=== PATIENT | female | born 1955 | race Caucasian/White ===

== ENCOUNTER 2019-04-07 22:29 | Inpatient (IN) | payer OTHER, MEDICARE, SELFPAY ==
[2019-04-07 22:36] VITALS: BP 95/65; PULSE 128; RESP 16; O2SAT 100; BMI 33.3
--- NOTE | 2019-04-07 22:48 | ED_ITS ---
Entered by Wandy Hilton, acting as scribe for Melissa Garcia MD HPI - General Adult General: Chief complaint: General Medical Stated complaint: n/v/d low bs Time Seen by Provider: 04/07/19 22:46 Source: patient and family Mode of arrival: wheelchair Limitations: no limitations History of Present Illness: HPI narrative: 64 y/o female presents to the ED with complaint of low BS. Pt states her sugar was 27 at home. She has had abd pain, nausea and vomiting. Pt states her sugar has increased a little since taking glucose tabs and drinking OJGautam [place] complaint: Low BS Onset (ago): hour(s) Severity: mild and moderate Quality: constant Relieving factors: eating Associated symptoms: Reports nausea and vomiting; Deny chest pain, dyspnea, headache(s) or rash Review of Systems Const: Denies: fever or chills Eyes: Denies: change in vision ENMT: Denies: throat pain or mouth pain Card: Denies: chest pain Resp: Denies: shortness of breath GI: Reports: abdominal pain, nausea and vomiting; Denies: diarrhea : Denies: difficulty urinating Musc: Denies: back pain or joint pain Skin/Breast: Denies: rash Neuro: Denies: headache or behavioral changes Psych: Denies: depression Endo: Denies: excessive urination Jeremiah/Lymph: Denies: easy bruising All/Imm: Denies: hives PFSH ED PFSH: Statuses (acute, chronic, etc) shown below reflect problem list status as previously entered and may not be historically accurate Medical History (Updated 04/08/19 @ 02:44 by Ana Pringle MD) Chronic back pain (Acute) CKD (chronic kidney disease), stage II (Acute) Depression (Acute) GERD (gastroesophageal reflux disease) (Acute) Hyperlipidemia (Acute) Hypertension (Acute) Hypothyroidism (Acute) Insulin dependent type 2 diabetes mellitus (Acute) Morbid obesity (Acute) Surgical History (Updated 04/08/19 @ 02:44 by Ana Pringle MD) H/O: hysterectomy (Acute) Hx of cholecystectomy (Acute) Family History (Updated 04/08/19 @ 02:45 by Ana Pringle MD) Other CAD (coronary artery disease) Cancer Diabetes Hypertension Social History (Updated 04/08/19 @ 02:45 by Ana Pringle MD) Smoking and tobacco status: current every day smoker cigars Cigars smoked per week: 28 Alcohol intake: current Alcohol intake frequency: 3 or more drinks per day Alcohol type: beer Substance/Drug Use: never Household members: spouse Housing: House Physical Exam Const: COMMON NORMALS: no apparent distress, oriented x3 and healthy appearing HENMT: COMMON NORMALS: normocephalic and external nose normal HEAD & SCALP: normocephalic NOSE: external nose normal Eye: COMMON NORMALS: PERRL PUPIL: Yes PERRL Neck/C-Spine: COMMON NORMALS: full ROM and no lymphadenopathy Chest: COMMONS NORMALS: inspection of chest normal Resp: COMMON NORMALS: normal respiratory effort, no use of accessory muscles and clear to auscultation bilaterally AUSCULTATION: clear to auscultation bilaterally Cardio: COMMON NORMALS: regular rate and regular rhythm RATE: regular rate RHYTHM: regular rhythm GI: COMMON NORMALS: soft to palpation and no masses PALPATION: Yes soft and Yes tender OTHER: obese Back/Pelvis: THORACIC SPINE/UPPER BACK: Yes normal to inspection Extremity: COMMON NORMALS: normal to inspection, full ROM and normal capillary refill Neuro: COMMON NORMALS: oriented x3 Psych: COMMON NORMALS: mental status grossly normal and cooperative Skin: COMMON NORMALS: no rashes or lesions noted GENERAL SKIN EXAM: no rashes or lesions noted Course Vital Signs: Vital signs: Vital Signs Pulse Rate 95 04/08/19 03:18 Respiratory Rate 16 04/08/19 03:18 Blood Pressure 137/80 04/08/19 03:18 Pulse Oximetry 96 04/08/19 03:18 MDM - General Adult MDM Narrative: Medical decision making narrative: Patient presents here with altered mental status from hypoglycemia. Even after D50 here patient had 2 other episodes of hypoglycemia. Patient started on a D10 drip. I spoke to hospitalist Dr. Pringle and will admit to the ICU for every hour glucoses and to continue the D10. Lab Data: Labs: Lab Results 04/07/19 04/07/19 04/07/19 Range/Units 22:41 23:55 23:55 WBC 10.4 H (4.0-10.0) 10^3/ uL RBC 5.23 (4.1-5.3) 10^6/u L Hgb 13.4 (11.5-15.3) g/dL Hct 42.5 (37.0-47.0) % MCV 81.3 (81-99) fL MCH 25.6 L (28.0-34.0) pg MCHC 31.5 (30.0-36.0) g/dL RDW 17.2 H (12.1-15.1) % Plt Count 405 H (130-400) 10^3/c mm MPV 9.8 (7.4-10.4) fL Neut % (Auto) 75.5 % Lymph % (Auto) 16.9 % [place] % (Auto) 6.3 % Eos % (Auto) 0.3 % Baso % (Auto) 0.4 % Neut # (Auto) 7.9 H (1.8-7.7) 10^3/u L Lymph # (Auto) 1.8 (0.8-4.8) 10^3/u L [place] # (Auto) 0.7 (0.2-0.9) 10^3/u L Eos # (Auto) 0.0 (0.0-0.8) 10^3/u L Baso # (Auto) 0.0 (0.0-0.1) 10^3/u L Nucleated RBC % (a uto) 0 % Nucleated RBCs # 0.0 /100WBC Sodium 137 (136-145) mmol/L Potassium 3.7 (3.5-5.1) mmol/L Chloride 94 L (98-107) mmol/L Carbon Dioxide 18 L (22-29) mmol/L Anion Gap 28.7 H (5-19) BUN 4 L (8-23) mg/dL Creatinine 1.7 H (0.5-0.9) mg/dL GFR Calculation 30.2 L (90-130) mL/min Glucose 25 L* (74-106) mg/dL POC Glucose 115 (70-110) mg/dL Calcium 10.3 H (8.8-10.2) mg/Dl Total Bilirubin 0.2 (0.15-1.2) mg/dL AST 17 (0-32) U/L ALT 10 (0-33) U/L Alkaline Phosphata se 124 H (35-105) IU/L Total Protein 7.8 (6.6-8.7) g/dL Albumin 3.9 (3.5-5.2) g/dL Globulin 3.9 (1.3-4.6) g/dL Lipase 5 L (13-60) U/L 04/08/19 04/08/19 04/08/19 Range/Units 00:21 01:01 01:31 WBC (4.0-10.0) 10^3/ uL RBC (4.1-5.3) 10^6/u L Hgb (11.5-15.3) g/dL Hct (37.0-47.0) % MCV (81-99) fL MCH (28.0-34.0) pg MCHC (30.0-36.0) g/dL RDW (12.1-15.1) % Plt Count (130-400) 10^3/c mm MPV (7.4-10.4) fL Neut % (Auto) % Lymph % (Auto) % [place] % (Auto) % Eos % (Auto) % Baso % (Auto) % Neut # (Auto) (1.8-7.7) 10^3/u L Lymph # (Auto) (0.8-4.8) 10^3/u L [place] # (Auto) (0.2-0.9) 10^3/u L Eos # (Auto) (0.0-0.8) 10^3/u L Baso # (Auto) (0.0-0.1) 10^3/u L Nucleated RBC % (a uto) % Nucleated RBCs # /100WBC Sodium (136-145) mmol/L Potassium (3.5-5.1) mmol/L Chloride (98-107) mmol/L Carbon Dioxide (22-29) mmol/L Anion Gap (5-19) BUN (8-23) mg/dL Creatinine (0.5-0.9) mg/dL GFR Calculation (90-130) mL/min Glucose (74-106) mg/dL POC Glucose 28 53 111 (70-110) mg/dL Calcium (8.8-10.2) mg/Dl Total Bilirubin (0.15-1.2) mg/dL AST (0-32) U/L ALT (0-33) U/L Alkaline Phosphata se (35-105) IU/L Total Protein (6.6-8.7) g/dL Albumin (3.5-5.2) g/dL Globulin (1.3-4.6) g/dL Lipase (13-60) U/L 04/08/19 04/08/19 Range/Units 01:58 02:29 WBC (4.0-10.0) 10^3/ uL RBC (4.1-5.3) 10^6/u L Hgb (11.5-15.3) g/dL Hct (37.0-47.0) % MCV (81-99) fL MCH (28.0-34.0) pg MCHC (30.0-36.0) g/dL RDW (12.1-15.1) % Plt Count (130-400) 10^3/c mm MPV (7.4-10.4) fL Neut % (Auto) % Lymph % (Auto) % [place] % (Auto) % Eos % (Auto) % Baso % (Auto) % Neut # (Auto) (1.8-7.7) 10^3/u L Lymph # (Auto) (0.8-4.8) 10^3/u L [place] # (Auto) (0.2-0.9) 10^3/u L Eos # (Auto) (0.0-0.8) 10^3/u L Baso # (Auto) (0.0-0.1) 10^3/u L Nucleated RBC % (a uto) % Nucleated RBCs # /100WBC Sodium (136-145) mmol/L Potassium (3.5-5.1) mmol/L Chloride (98-107) mmol/L Carbon Dioxide (22-29) mmol/L Anion Gap (5-19) BUN (8-23) mg/dL Creatinine (0.5-0.9) mg/dL GFR Calculation (90-130) mL/min Glucose (74-106) mg/dL POC Glucose 126 123 (70-110) mg/dL Calcium (8.8-10.2) mg/Dl Total Bilirubin (0.15-1.2) mg/dL AST (0-32) U/L ALT (0-33) U/L Alkaline Phosphata se (35-105) IU/L Total Protein (6.6-8.7) g/dL Albumin (3.5-5.2) g/dL Globulin (1.3-4.6) g/dL Lipase (13-60) U/L EKG Data^: EKG 1: Attestation: I personally reviewed and interpreted this EKG as follows: EKG interpretation date: 04/08/19 EKG interpretation time: 00:42 Interpretation: Normal sinus rhythm heart rate 91 QRS [address] or T wave abnormalities Discharge Plan Discharge Patient Disposition: Admitted As Inpatient Admit Provider: Ana Pringle Clinical Impression: Hypoglycemia Condition: Stable Referrals: Migdalia Kimball MD [Physician] - Thu Flores FNP [Family Provider] - Coding Level of Care Code 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
[2019-04-07 22:49] LABS: Glucose Point of Care 115 mg/dL (70-110)
[2019-04-08] VITALS (30 sets, daily range): BP systolic 117–178; BP diastolic 69–125; PULSE 59–106; RESP 13–28; TEMP 36.6–37.6; O2SAT 89–100; BMI 34.2
[2019-04-08 00:01] LABS: Basophils % 0.4 %; Eosinophils % 0.3 %; Hematocrit 42.5 % (37.0-47.0); Hemoglobin 13.4 g/dL (11.5-15.3); Lymphocytes # 1.8 10^3/uL (0.8-4.8); Lymphocytes % 16.9 %; Mean Corpuscular HGB Conc 31.5 g/dL (30.0-36.0); Mean Corpuscular Hemoglobin 25.6 pg (28.0-34.0); Mean Corpuscular Volume 81.3 fL (81-99); Mean Platelet Volume 9.8 fL (7.4-10.4); Monocytes # 0.7 10^3/uL (0.2-0.9); Monocytes % 6.3 %; Neutrophils # 7.9 10^3/uL (1.8-7.7); Neutrophils % 75.5 %; Nucleated Red Blood Cells % 0 %; Platelet Count 405 10^3/cmm (130-400); Red Blood Count 5.23 10^6/uL (4.1-5.3); Red Cell Distribution Width 17.2 % (12.1-15.1); White Blood Count 10.4 10^3/uL (4.0-10.0)
[2019-04-08] MEDS: sodium chloride 0.9% 1,000 ML 999 ML IV (00:01)
--- NOTE | 2019-04-08 00:22 | PC.NURSE ---
Performed an accu-check and patient's blood sugar is 28, informed both the nurse and doctor.
[2019-04-08] MEDS: dextrose 50% syringe 50 mL IVP ×3 (00:27→04:30)
[2019-04-08 00:28] LABS: Alanine Aminotransferase 10 U/L (0-33); Albumin Level 3.9 g/dL (3.5-5.2); Alkaline Phosphatase 124 IU/L (35-105); Anion Gap 28.7 (5-19); Aspartate Amino Transferase 17 U/L (0-32); Blood Urea Nitrogen 4 mg/dL (8-23); Calcium 10.3 mg/Dl (8.8-10.2); Carbon Dioxide 18 mmol/L (22-29); Chloride 94 mmol/L (98-107); Globulin 3.9 g/dL (1.3-4.6); Glomerular Filtration Rate 30.2 mL/min (90-130); Lipase 5 U/L (13-60); Potassium 3.7 mmol/L (3.5-5.1); Sodium 137 mmol/L (136-145); Total Bilirubin 0.2 mg/dL (0.15-1.2); Total Protein 7.8 g/dL (6.6-8.7)
--- NOTE | 2019-04-08 00:31 | ECG_ITS ---
Measurements Intervals [place] Rate: 91 P: 28 AL: 141 QRS: 46 QRSD: 82 T: 77 QT: 374 QTc: 462 SINUS RHYTHM POSSIBLE RIGHT VENTRICULAR CONDUCTION DELAY [RSR (QR) IN V1/V2] Compared to ECG 10/11/2018 16:35:59 Sinus tachycardia no longer present T-wave abnormality no longer present Electronically Signed On 04-08-2019 10:50:48 WHIZZER by Cindy Strong M.D. [email or web address]
[2019-04-08 00:34] LABS: Glucose Point of Care 28 mg/dL (70-110)
[2019-04-08 00:37] LABS: Glucose 25 mg/dL (74-106)
--- NOTE | 2019-04-08 01:04 | PC.NURSE ---
Patient's blood glucose at 0100 is 53, informed both nurse and doctor. Also informed nurse and doctor that she has a rash under her left breast.
[2019-04-08 01:06] LABS: Glucose Point of Care 53 mg/dL (70-110)
[2019-04-08] MEDS: dextrose 10% 1,000 ML 100 ML IV ×3 (01:26→23:05)
--- NOTE | 2019-04-08 01:35 | PC.NURSE ---
Patient blood glucose is 111, informed nurse and doctor, hospitalist is at bedside and informed her as well.
[2019-04-08 01:38] LABS: Glucose Point of Care 111 mg/dL (70-110)
--- NOTE | 2019-04-08 02:01 | PC.NURSE ---
Patient blood glucose is 126, informed nurse and doctor. Patient stated she wants something for her heart burn told both the nurse and doctor.
[2019-04-08 02:02] LABS: Glucose Point of Care 126 mg/dL (70-110)
[2019-04-08 02:33] LABS: Glucose Point of Care 123 mg/dL (70-110)
--- NOTE | 2019-04-08 02:36 | PM.HP ---
Providers/Chief Complaint Primary Care Provider: Migdalia Kimball Chief Complaint: n/v/d low bs History of Present Illness Ingris Mendosa is a 64 year old female with PMHx of IDDM type II, Hypothyroidism, HTN, Hyperlipidemia, Morbid obesity, FRANKY, GERD, Depression, Chronic back pain; presents from home accompanied by her for evaluation of significant hypoglycemia. She is quite sleepy during my assessment so much of the history is obtained from her at bedside as well as review of medical record and ED report. states that patient has had epigastric abdominal pain since around Cas and over the past week has had nausea, vomiting and persistent diarrhea. She last took her insulin which was 35 units of Lantus 2 days ago and also takes metformin 1000 mg twice daily. Her blood sugar prior to coming to the ER was about 27. states that over the past week her blood sugar has been running in the 200-250 range but yesterday she did have a couple of episodes of hypoglycemia with sugar of 55 which then improved to 88. She has generally been feeling quite unwell particularly today and has had diminished appetite and oral intake. She did take her metformin today. She has been undergoing work-up for the abdominal pain with her PCP, has had CT scans and ultrasounds with no clear etiology and she is pending what sounds like an endoscopy next week. states that patient has had labile blood sugars and hypoglycemic episodes in the past but nothing recently. She had a fall 4 days ago though he is unable to provide details as he was not present at the time. Patient typically ambulates with a Rollator and a wheelchair and has a very unsteady gait at baseline. She smokes 3 to 4 cigars/day, drinks 3 to 4 ounces of alcohol per day, last drink was earlier this morning, denies substance abuse. On arrival her blood sugar was 27, she got an amp of D50 and it increased to 110 then subsequently dropped to 28. She received a second amp of D50 and blood sugar increased to 40. She is currently on a D10 IV fluid infusion. Most recent blood sugar is 113. She is arousable though quite sleepy, thinks is because she has not gotten much sleep with frequency of bowel movements. Labs indicate a normal white count, normal hemoglobin, blood sugar of 25, BUN of 4, creatinine of 1.7, anion gap of 28.7 LFTs and lipase within normal limits. Vital signs are stable. There is no baseline A1c available on record so we will order this for tomorrow. She is currently having her blood sugar checked every hour so will require ICU admission for close monitoring. Review of Systems Const: Reports: change in appetite (decreased appetite), fatigue and malaise; Denies: fever or chills Eyes: Denies: change in vision ENMT: Reports: dry mouth Card: Denies: chest pain, swelling of feet/ankles or lightheadedness Resp: Denies: shortness of breath GI: Reports: abdominal pain (Epigastric), nausea, vomiting and diarrhea; Denies: vomiting blood or blood in stool : Denies: difficulty urinating or painful urination Musc: Denies: back pain Skin/Breast: Denies: rash Neuro: Denies: numbness in extremities or weakness in extremities Psych: Denies: anxiety Medications/Allergies Allergies Allergy/AdvReac Type Severity Reaction Status Date / Time nicotine [From [employer]] Allergy Severe ALGY-Hives Verified 04/07/19 22:35 PFSH Acute PFSH: Statuses (acute, chronic, etc) shown below reflect problem list status as previously entered and may not be historically accurate Medical History (Updated 04/08/19 @ 02:44 by Ana Pringle MD) Chronic back pain (Acute) CKD (chronic kidney disease), stage II (Acute) Depression (Acute) GERD (gastroesophageal reflux disease) (Acute) Hyperlipidemia (Acute) Hypertension (Acute) Hypothyroidism (Acute) Insulin dependent type 2 diabetes mellitus (Acute) Morbid obesity (Acute) Surgical History (Updated 04/08/19 @ 02:44 by Ana Pringle MD) H/O: hysterectomy (Acute) Hx of cholecystectomy (Acute) Family History (Updated 04/08/19 @ 02:45 by Ana Pringle MD) Other CAD (coronary artery disease) Cancer Diabetes Hypertension Social History (Updated 04/08/19 @ 02:45 by Ana Pringle MD) Smoking and tobacco status: current every day smoker cigars Cigars smoked per week: 28 Alcohol intake: current Alcohol intake frequency: 3 or more drinks per day Alcohol type: beer Substance/Drug Use: never Household members: spouse Housing: House Vitals/I&O/Wt Last Vital Signs Pulse 96 04/08/19 02:33 Resp 18 04/08/19 02:33 BP 122/70 04/08/19 02:33 Pulse Ox 100 04/08/19 01:32 Weight last 48 hrs Weight 85.275 kg Physical Exam Const: COMMON NORMALS: no apparent distress and oriented x3 GENERAL APPEARANCE: cooperative, comfortable and lethargic NUTRITIONAL APPEARANCE: obese morbidly obese ORIENTATION/CONSCIOUSNESS: Yes awake HENMT: COMMON NORMALS: normocephalic, head/scalp atraumatic, hearing grossly normal bilaterally and moist oral mucous membranes HEAD & SCALP: normocephalic and atraumatic Eye: COMMON NORMALS: PERRL, EOMs intact bilaterally and conjunctivae normal CONJUNCTIVA: Yes conjunctivae normal PUPIL: Yes PERRL Neck/C-Spine: COMMON NORMALS: full ROM GENERAL: Yes normal visual inspection and Yes trachea midline Resp: COMMON NORMALS: normal respiratory effort, no retractions, no use of accessory muscles and clear to auscultation bilaterally EFFORT & INSPECTION: Yes able to speak in complete sentences, Yes symmetric chest movement and No tachypneic AUSCULTATION: clear to auscultation bilaterally Cardio: COMMON NORMALS: regular rate, regular rhythm, S1 normal heart sound, S2 normal heart sound and no murmurs RATE: regular rate RHYTHM: regular rhythm HEART SOUNDS: S1 normal and S2 normal GI: COMMON NORMALS: normal to inspection, nondistended, normoactive bowel sounds and soft to palpation PALPATION: Yes soft and Yes tender Details: LLQ and other (Epigastric) Extremity: COMMON NORMALS: normal to inspection, full ROM and no clubbing, cyanosis or edema; negative for no pedal edema Neuro: COMMON NORMALS: oriented x3, moves all extremities, no focal motor deficits and no sensory deficits noted Psych: COMMON NORMALS: mental status grossly normal, thought process normal, cooperative, affect normal and speech normal SPEECH: Yes normal speech THOUGHT PROCESS: normal thought process Skin: COMMON NORMALS: no rashes or lesions noted, no jaundice, no petechiae and no mottling GENERAL SKIN EXAM: no rashes or lesions noted Data : 04/07/19 23:55 04/07/19 23:55 A&P Assessment and plan (1) Hypoglycemia: -Significant hypoglycemia with blood sugars in the 20s, so far has received 2 Amps of D50 -D10 IVF currently running -Hourly Accu-Cheks -Hypoglycemia precautions -Hold insulin and antihypoglycemic agents -neurochecks Status: Acute Code(s): E16.2 - Hypoglycemia, unspecified (2) CKD (chronic kidney disease), stage II: -has GILBERTO superimposed on CKD stage 2; baseline Cr wnl; likely secondary to poor oral intake, diarrhea -on IVF -repeat labs in AM Status: Acute Code(s): N18.2 - Chronic kidney disease, stage 2 (mild) (3) Insulin dependent type 2 diabetes mellitus: -has hx of IDDM type II; is on long acting insulin (last taken 2 days ago) and metformin 1000 mg BID -check A1c -management of hypoglycemia as noted above -diabetic diet as tolerated Status: Acute Code(s): E11.9 - Type 2 diabetes mellitus without complications; 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 Time Spent in Patient Care: Greater than 35 minutes (>than 50% of time spent in counselling and/or direct pt care on unit). Coding Level of Care Code Acute Corporate Law Assistant for Chg Fwd Exam Problem Focused Diagnoses Hypoglycemia E16.2 CKD (chronic kidney disease), stage II N18.2 Insulin dependent type 2 diabetes mellitus E11.9; Z79.4
[2019-04-08 03:33] LABS: Magnesium 1.3 mg/dL (1.7-2.3); Thyroid Stimulating Hormone 4.13 uIU/mL (0.27-4.20)
[2019-04-08 03:38] LABS: Influenza A by IFA Negative (Negative); Influenza B by IFA Negative (Negative)
[2019-04-08] MEDS: heparin 5,000 unit/mL INJ 1 mL 5000 UNIT SUBCUT ×2 (04:40→15:08)
[2019-04-08 06:59] LABS: Glucose Point of Care 60 mg/dL (70-110)
[2019-04-08 06:59] LABS: Glucose Point of Care 181 mg/dL (70-110)
[2019-04-08 06:59] LABS: Glucose Point of Care 159 mg/dL (70-110)
[2019-04-08 06:59] LABS: Glucose Point of Care 291 mg/dL (70-110)
[2019-04-08 06:59] LABS: Glucose Point of Care 36 mg/dL (70-110)
[2019-04-08 08:43] LABS: Estmated Average Glucose 203; Hemoglobin A1C 8.7 % (4.0-6.0)
[2019-04-08] MEDS: LORazepam 2 mg/mL INJ 1 mL IVP (20:31)
[2019-04-08] MEDS: CLONazepam 0.5 mg Tablet PO (20:31)
[2019-04-08] MEDS: HYDROcodone-acetaminophen 5-325 mg Tablet 1 TAB PO (20:31)
--- NOTE | 2019-04-08 22:52 | P.PN_ITS ---
Subjective Subjective: Interval history: c/o intermittent low abdominal pain. blood sugar improving, however still with some lows in the 30s Medications: Reviewed: Yes Vitals/I&O/Wt Last Vital Signs Temp 97.8 F 04/08/19 18:00 Pulse 88 04/08/19 21:00 Resp 22 H 04/08/19 21:00 BP 157/100 04/08/19 21:00 Pulse Ox 95 04/08/19 21:00 04/08/19 04/08/19 04/08/19 06:59 14:59 22:59 Intake Total 1240 / 1240 360 / 1600 Output Total 300 / 300 900 / 900 Balance -300 / -300 1240 / 1240 -540 / 700 Weight last 48 hrs Weight 87.543 kg Weight 87.634 kg Weight 85.275 kg Data : 04/07/19 23:55 04/07/19 23:55 A&P Assessment and plan (1) Hypoglycemia: -Significant hypoglycemia with blood sugars in the 30s, -D10 IVF currently running -Hourly Accu-Cheks -Hypoglycemia precautions -Hold insulin and antihypoglycemic agents -neurochecks - c peptide, cortisol level in am Status: Acute Code(s): E16.2 - Hypoglycemia, unspecified (2) CKD (chronic kidney disease), stage II: -has GILBERTO superimposed on CKD stage 2; baseline Cr wnl; likely secondary to poor oral intake, diarrhea -on IVF -repeat labs in AM Status: Acute Code(s): N18.2 - Chronic kidney disease, stage 2 (mild) (3) Insulin dependent type 2 diabetes mellitus: -has hx of IDDM type II; is on long acting insulin (last taken 2 days ago) and metformin 1000 mg BID -check A1c -management of hypoglycemia as noted above -diabetic diet as tolerated Status: Acute Code(s): E11.9 - Type 2 diabetes mellitus without complications; Z79.4 - [facility] (current) use of insulin Additional A&P Information -HTN -Hypothyroidism -Morbid obesity: BMI-33 kg/m2 -GERD -Depression -Chronic back pain; no longer on narcotics -FRANKY; non-compliant with CPAP -Chronic smoker, daily EtOH use -DVT ppx with heparin -fall precautions, assistance with all out of bed activity -Dispo: home -Code status: FULL code Attestations Medical Necessity Statement*: hypoglycemia mgmt Coding Level of Care Code Acute Volumetric Weigher for Chg Fwd Diagnoses Hypoglycemia E16.2 CKD (chronic kidney disease), stage II N18.2 Insulin dependent type 2 diabetes mellitus E11.9; Z79.4
[2019-04-09] VITALS (14 sets, daily range): BP systolic 129–176; BP diastolic 68–116; PULSE 73–94; RESP 16–21; TEMP 36.5; O2SAT 93–100
[2019-04-09 00:15] LABS: Glucose Point of Care 96 mg/dL (70-110)
[2019-04-09 00:15] LABS: Glucose Point of Care 91 mg/dL (70-110)
[2019-04-09 00:15] LABS: Glucose Point of Care 78 mg/dL (70-110)
[2019-04-09 00:15] LABS: Glucose Point of Care 60 mg/dL (70-110)
[2019-04-09 00:15] LABS: Glucose Point of Care 159 mg/dL (70-110)
[2019-04-09 00:15] LABS: Glucose Point of Care 98 mg/dL (70-110)
[2019-04-09 00:15] LABS: Glucose Point of Care 126 mg/dL (70-110)
[2019-04-09 00:15] LABS: Glucose Point of Care 95 mg/dL (70-110)
[2019-04-09 00:15] LABS: Glucose Point of Care 123 mg/dL (70-110)
[2019-04-09 00:15] LABS: Glucose Point of Care 111 mg/dL (70-110)
[2019-04-09 00:15] LABS: Glucose Point of Care 120 mg/dL (70-110)
[2019-04-09 00:16] LABS: Glucose Point of Care 109 mg/dL (70-110)
[2019-04-09 00:16] LABS: Glucose Point of Care 120 mg/dL (70-110)
[2019-04-09 00:16] LABS: Glucose Point of Care 121 mg/dL (70-110)
[2019-04-09] MEDS: HYDROcodone-acetaminophen 5-325 mg Tablet 1 TAB PO ×3 (01:30→13:46)
[2019-04-09 01:52] LABS: Glucose Point of Care 121 mg/dL (70-110)
[2019-04-09] MEDS: heparin 5,000 unit/mL INJ 1 mL 5000 UNIT SUBCUT ×2 (03:16→13:46)
[2019-04-09 04:20] LABS: Glucose Point of Care 150 mg/dL (70-110)
[2019-04-09 05:13] LABS: Basophils # 0.1 10^3/uL (0.0-0.1); Basophils % 0.6 %; Eosinophils # 0.2 10^3/uL (0.0-0.8); Eosinophils % 2.5 %; Hematocrit 37.8 % (37.0-47.0); Hemoglobin 12.3 g/dL (11.5-15.3); Lymphocytes # 3.5 10^3/uL (0.8-4.8); Lymphocytes % 40.6 %; Mean Corpuscular HGB Conc 32.5 g/dL (30.0-36.0); Mean Corpuscular Hemoglobin 25.4 pg (28.0-34.0); Mean Corpuscular Volume 78.1 fL (81-99); Mean Platelet Volume 9.8 fL (7.4-10.4); Monocytes # 0.7 10^3/uL (0.2-0.9); Monocytes % 8.4 %; Neutrophils # 4.1 10^3/uL (1.8-7.7); Neutrophils % 47.4 %; Nucleated Red Blood Cells % 0 %; Platelet Count 358 10^3/cmm (130-400); Red Blood Count 4.84 10^6/uL (4.1-5.3); Red Cell Distribution Width 16.4 % (12.1-15.1); White Blood Count 8.6 10^3/uL (4.0-10.0)
[2019-04-09 05:38] LABS: Anion Gap 16.3 (5-19); Blood Urea Nitrogen 2 mg/dL (8-23); Calcium 8.6 mg/Dl (8.8-10.2); Carbon Dioxide 22 mmol/L (22-29); Chloride 89 mmol/L (98-107); Glucose 144 mg/dL (74-106); Potassium 3.3 mmol/L (3.5-5.1); Sodium 124 mmol/L (136-145)
[2019-04-09 05:49] LABS: Cortisol Random 2.19 mcg/dL (2.47-19.5)
[2019-04-09 05:57] LABS: Glucose Point of Care 173 mg/dL (70-110)
[2019-04-09] MEDS: dextrose 5%-sod chloride 0.9% 1,000 ML 100 ML IV (06:23)
[2019-04-09 06:50] LABS: Glucose Point of Care 121 mg/dL (70-110)
[2019-04-09] MEDS: thiamine 100 mg Tablet PO ×2 (08:52→12:27)
[2019-04-09] MEDS: multivitamin therapeutic Tablet 1 TAB PO (08:52)
[2019-04-09 08:53] LABS: Glucose Point of Care 122 mg/dL (70-110)
[2019-04-09] MEDS: folic acid 1 mg Tablet PO ×2 (08:53→12:27)
--- NOTE | 2019-04-09 09:14 | PM.PN ---
Subjective Subjective: Interval history: Hemodynamically stable. This morning blood pressure 163/116. Afebrile. T-max 99.6. O2 sat 95% on room air. Lowest blood glucose on 04/08 3 PM at 60. Patient is currently eating. TSH normal. Random cortisol at 2.19 which is low. Sodium at 124. Yesterday it was at 137. Review of prior numbers from 2019 shows a baseline sodium between 1 29-1 32. D10 switched to D5 NS this morning. 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 This am switched to D5NS due to developmenet of hyponatremia -2 Hourly Accu-Cheks -Hypoglycemia precautions -Hold insulin and antihypoglycemic agents -neurochecks - c peptide level pending - random cortisol low at 2.19, suspect adrenal insufficiency. Check ACTH stimulation test - start low dose prednisone 10mg qd after test is done - depending on results of ACTH sim test, will proceed with adrenal imaging - change diet to regular from carbohydrate restricted for now Status: Acute Code(s): E16.2 - Hypoglycemia, unspecified (2) CKD (chronic kidney disease), stage II: GILBERTO resolved Status: Acute Code(s): N18.2 - Chronic kidney disease, stage 2 (mild) (3) Insulin dependent type 2 diabetes mellitus: -has hx of IDDM type II; is on long acting insulin (last taken 3 days ago) and metformin 1000 mg BID -Hba1c 8.7 -management of hypoglycemia as noted above Status: Acute Code(s): E11.9 - Type 2 diabetes mellitus without complications; 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 -Morbid obesity: BMI-33 kg/m2 -GERD -Depression -Chronic back pain; no longer on narcotics -FRANKY; non-compliant with CPAP -Chronic smoker, daily EtOH use -DVT ppx with heparin -fall precautions, assistance with all out of bed activity -Dispo: home -Code status: FULL code Attestations Medical Necessity Statement*: hypoglycemia, possible adrenal insufficiency Coding Level of Care Code Acute [employer] Hospitalist for [facility] Fwd Diagnoses Hypoglycemia E16.2 CKD (chronic kidney disease), stage II N18.2 Insulin dependent type 2 diabetes mellitus E11.9; Z79.4 Hyponatremia E87.1
[2019-04-09 10:48] LABS: Chol HDL Ratio 3.78 mg/dL (0.0-4.40); Cholesterol 174 mg/dL (0-200); HDL Cholesterol 46 mg/dL (60-100); LDL Cholesterol Calculated 93 mg/dL (50-129); LDL HDL Ratio 2.02 RATIO (0.00-3.22); Magnesium 1.1 mg/dL (1.7-2.3); Triglycerides 176 mg/dL (0-150)
[2019-04-09 11:06] LABS: Glucose Point of Care 107 mg/dL (70-110)
[2019-04-09 11:56] LABS: Urine Random Sodium 40 mmol/L
[2019-04-09] MEDS: cosyntropin 0.25 mg SDV IVP (12:23)
[2019-04-09] MEDS: amlodipine 5 mg Tablet PO (12:28)
[2019-04-09 12:34] LABS: Cosyntropin Baseline 5.58
[2019-04-09] MEDS: predniSONE 10 mg Tablet PO (13:47)
[2019-04-09 14:02] LABS: Glucose Point of Care 160 mg/dL (70-110)
--- NOTE | 2019-04-09 14:03 | PC.NURSE ---
PT HERE. HAS NERVE STIMULATOR & HE IS CURRENTLY CHARGING THE BATTERY. IT POSSIBLY MAY NOT BE WORKING CORRECTLY.
[2019-04-09 14:30] LABS: Alanine Aminotransferase 9 U/L (0-33); Alkaline Phosphatase 95 IU/L (35-105); Anion Gap 16.6 (5-19); Aspartate Amino Transferase 21 U/L (0-32); Blood Urea Nitrogen 2 mg/dL (8-23); Calcium 8.8 mg/Dl (8.8-10.2); Carbon Dioxide 22 mmol/L (22-29); Chloride 92 mmol/L (98-107); Glomerular Filtration Rate 100.3 mL/min (90-130); Glucose 177 mg/dL (74-106); Potassium 3.6 mmol/L (3.5-5.1); Sodium 127 mmol/L (136-145); Total Bilirubin 0.2 mg/dL (0.15-1.2)
--- NOTE | 2019-04-09 14:41 | PC.NURSE ---
REPORT CALLED TO KATELYN ARBOLEDA. PERSONAL BELONGINGS WITH PT. WISHED WELL.
--- NOTE | 2019-04-09 15:11 | PC.NURSE ---
PATIENT TRANSFERRED TO FLOOR FROM ICU. REPORT RECEIVED FROM GÓMEZ RICHARDSON.
[2019-04-09 15:12] LABS: Cosyntropin 30 Minute 33.55
[2019-04-09 15:14] LABS: Cosyntropin 1 Hour 36.91
[2019-04-09 16:26] LABS: Glucose Point of Care 217 mg/dL (70-110)
[2019-04-09 20:58] LABS: Glucose Point of Care 229 mg/dL (70-110)
[2019-04-09] MEDS: CLONazepam 0.5 mg Tablet PO (21:42)
[2019-04-09 23:13] LABS: Glucose Point of Care 191 mg/dL (70-110)
[2019-04-10] VITALS: BP 136/78; PULSE 96; RESP 20; TEMP 36.6; O2SAT 94
[2019-04-10 01:10] LABS: Glucose Point of Care 143 mg/dL (70-110)
[2019-04-10] MEDS: heparin 5,000 unit/mL INJ 1 mL 5000 UNIT SUBCUT ×2 (02:57→13:35)
[2019-04-10 03:13] LABS: Glucose Point of Care 148 mg/dL (70-110)
[2019-04-10 04:00] VITALS: BP 134/74; PULSE 78; RESP 18; TEMP 36.5; O2SAT 95
[2019-04-10 04:43] LABS: Glucose Point of Care 134 mg/dL (70-110)
[2019-04-10 08:00] VITALS: BP 134/68; PULSE 91; RESP 18; TEMP 36.6; O2SAT 95
[2019-04-10] MEDS: predniSONE 10 mg Tablet PO (08:24)
[2019-04-10] MEDS: multivitamin therapeutic Tablet 1 TAB PO (08:24)
[2019-04-10] MEDS: amlodipine 5 mg Tablet PO (08:25)
[2019-04-10 10:55] VITALS: BP 139/84; PULSE 90; RESP 20; TEMP 36.6; O2SAT 95
--- NOTE | 2019-04-10 11:57 | PM.PN ---
Subjective Subjective: Interval history: Hemodynamically stable. Blood pressure better controlled after starting 5 mg amlodipine. Afebrile. T-max 97.8. O2 sat 95% on room air. She has been off of D5 NS infusion since yesterday afternoon. Prednisone 10 milligrams daily was added yesterday. Patient is currently eating on normal unrestricted carbohydrate diet. Her fingersticks are ranging between 10 7-2 29. Morning labs not done today therefore unable to assess for improvement of hyponatremia at this time. Cosyntropin baseline cortisol level is at 5.58. 30 minutes after it was at 33. 60 minutes later it was at 36. Medications: Reviewed: Yes Vitals/I&O/Wt Last Vital Signs Temp 97.8 F 04/10/19 10:55 Pulse 90 04/10/19 10:55 Resp 20 H 04/10/19 10:55 BP 139/84 04/10/19 10:55 Pulse Ox 95 04/10/19 10:55 04/09/19 04/10/19 04/10/19 22:59 06:59 14:59 Intake Total 240 / 540 360 / 360 Output Total 225 / 425 Balance 240 / 340 -225 / 115 360 / 360 Weight last 48 hrs Weight 91.654 kg Weight 91.626 kg Physical Exam Narrative: EXAM NARRATIVE: GEN: Awake, alert and oriented, no acute distress CVS: S1S2N RS: CTA B/L Abd: Soft, nt/nd , bs+ TEMPLATE INSPECTOR: no focal neuro deficits Data : 04/09/19 04:45 04/10/19 13:27 A&P Assessment and plan (1) Hypoglycemia: -Significant hypoglycemia with blood sugars in the 30s, improved with maintaining on D10 infusion. Then switched to D5NS due to developmenet of hyponatremia. Now off all fluids since yesetrday afternoon. -2 Hourly Accu-Cheks -Hypoglycemia precautions -Hold insulin and antihypoglycemic agents - c peptide level pending - random cortisol low at 2.19, suspect adrenal insufficiency. ACTH stimulaation test with low baseline cortisol numbers. - started low dose prednisone 10mg qd after test was done, now maintaining blood sugar between 107-229. - will need to see endocrinology as outpatient. Status: Acute Code(s): E16.2 - Hypoglycemia, unspecified (2) CKD (chronic kidney disease), stage II: GILBERTO resolved Status: Acute Code(s): N18.2 - Chronic kidney disease, stage 2 (mild) (3) Insulin dependent type 2 diabetes mellitus: -has hx of IDDM type II; is on long acting insulin (last taken 3 days ago) and metformin 1000 mg BID -Hba1c 8.7 -management of hypoglycemia as noted above Status: Acute Code(s): E11.9 - Type 2 diabetes mellitus without complications; Z79.4 - [facility] (current) use of insulin (4) Hyponatremia: check lytes this morning Status: Acute Code(s): E87.1 - Hypo-osmolality and hyponatremia Additional A&P Information -HTN: continue amlodipine 5mg qd -Hypothyroidism: need to confirm dose of levothyroxine. -Morbid obesity: BMI-33 kg/m2 -GERD -Depression -Chronic back pain; no longer on narcotics -FRANKY; non-compliant with CPAP -Chronic smoker, daily EtOH use -DVT ppx with heparin -fall precautions, assistance with all out of bed activity -Dispo: home -Code status: FULL code Attestations Medical Necessity Statement*: management of hypoglycemia, possible chronic adrenal insufficiency, dispo pending labs today Coding Level of Care Code Acute Timber Deadener for g Fwd Diagnoses Hypoglycemia E16.2 CKD (chronic kidney disease), stage II N18.2 Insulin dependent type 2 diabetes mellitus E11.9; Z79.4 Hyponatremia E87.1
[2019-04-10 12:09] LABS: Glucose Point of Care 190 mg/dL (70-110)
[2019-04-10] MEDS: magnesium sulfate premix 2 GM/50 ML PIGGYBACK IV (13:34)
[2019-04-10 13:47] LABS: Alanine Aminotransferase 8 U/L (0-33); Albumin Level 2.8 g/dL (3.5-5.2); Alkaline Phosphatase 101 IU/L (35-105); Anion Gap 20.1 (5-19); Aspartate Amino Transferase 16 U/L (0-32); Blood Urea Nitrogen 4 mg/dL (8-23); Carbon Dioxide 21 mmol/L (22-29); Chloride 92 mmol/L (98-107); Globulin 3.6 g/dL (1.3-4.6); Glucose 308 mg/dL (74-106); Potassium 4.1 mmol/L (3.5-5.1); Sodium 129 mmol/L (136-145); Total Bilirubin 0.2 mg/dL (0.15-1.2); Total Protein 6.4 g/dL (6.6-8.7)
[2019-04-10 14:58] LABS: Glucose Point of Care 282 mg/dL (70-110)
[2019-04-10 15:25] VITALS: BP 125/76; PULSE 88; RESP 16; TEMP 36.6; O2SAT 95
[2019-04-10] MEDS: HYDROcodone-acetaminophen 5-325 mg Tablet 1 TAB PO (16:15)
[2019-04-10 16:26] LABS: Glucose Point of Care 242 mg/dL (70-110)
[2019-04-10 16:41] VITALS: BP 125/76; PULSE 88; RESP 16; TEMP 36.6; O2SAT 95
--- NOTE | 2019-04-10 16:57 | PC.NURSE ---
DISCHARGE SUMMARY PATIENT WAS GIVEN DISCHARGE SUMMARY. IV DISCONTINUED AND VITAL SIGNS WITHIN NORMAL LIMITS. DISCHARGE INSTRUCTIONS WERE GIVEN TO BOTH PATIENT AND SPOUSE, VERBALIZED UNDERSTANDING. PATIENTS PRESCRIPTIONS WERE SENT TO HER PREFERRED PHARMACY. PATIENT WAS TAKEN TO VEHICLE BY WHEELCHAIR. PATIENT ALERT AND ORIENTED.
--- NOTE | 2019-04-11 07:09 | P.DS_ITS ---
Discharge Providers Date of Admission: 04/08/19 03:17 Attending Provider at Admission: Ana Pringle MD Attending Provider at Discharge: Azalia Floyd MD Diagnoses at Discharge Discharge Diagnosis (1) Hypoglycemia: Status: Acute (2) CKD (chronic kidney disease), stage II: Status: Acute (3) Insulin dependent type 2 diabetes mellitus: Status: Acute (4) Hyponatremia: Status: Acute Reason for Visit Reason for Visit: Reason For Visit: HYPOGLYCEMIA Hospital Course 2 Discharge Summary: Please see my progress note from same day. Patient doing well, no new complaints. Requests to go home. Updates through the day: Next fingerstick check with BS ~280. Started on novolog sliding scale per mild protocol. Continue to hold Lantus now and at home. Reduced dose of Prednisone to 5mg/d for suspected chronic adrenal insufficiency (low random and baseline cortisol on ACTH sim test). Started low dose novolog sliding scale. Instructed to return to PMD/uregnt care or ED if blood sugar >400 or recurrent hypoglycemia. Recommended referral to endocrinology as soon as possible for w/up of complex DM and possible adrenal insufficiency .Patient prefers to do this within the [place] system and will make appointment with her PCP in the next 1-3 days to get referral. WIll maintain a diary of blood sugar at least 3 times/day and take it to PCP for further adjustments of insulin. Sodium at discharge improving, up to 129. Per review of prior numbers, baseline is ~126-130 Discharge Data Data Completed and Pending: Pending at discharge Category Date Time Status C-Peptide Routine Lab 04/08/19 14:18 Received Lipid Panel Stat Lab 04/09/19 04:45 Results Magnesium Stat Lab 04/09/19 04:45 Results Osmolality Stat Lab 04/09/19 04:45 Results Urine Osmolality Stat Lab 04/09/19 11:00 Results Urine Random Sodi um Stat Lab 04/09/19 11:00 Results Labs from last 24 hours 04/10/19 04/10/19 04/10/19 16:17 14:55 13:27 Sodium 129 L Potassium 4.1 Chloride 92 L Carbon Dioxide 21 L Anion Gap 20.1 H BUN 4 L Creatinine 0.8 GFR Calculation 72.0 L Glucose 308 H POC Glucose 242 282 Calcium 9.0 Magnesium 1.0 L Total Bilirubin 0.2 AST 16 ALT 8 Alkaline Phosphata se 101 Total Protein 6.4 L Albumin 2.8 L Globulin 3.6 04/10/19 10:52 Sodium Potassium Chloride Carbon Dioxide Anion Gap BUN Creatinine GFR Calculation Glucose POC Glucose 190 Calcium Magnesium Total Bilirubin AST ALT Alkaline Phosphata se Total Protein Albumin Globulin Vitals: Last Vital Signs Temp 97.8 F 04/10/19 16:41 Pulse 88 04/10/19 16:41 Resp 16 04/10/19 16:41 BP 125/76 04/10/19 16:41 Pulse Ox 95 04/10/19 16:41 Discharge Plan Discharge Patient Disposition: Home, Self-Care Condition: Stable Prescriptions: New prednisone 10 mg Tablet 5 mg PO DAILY Qty: 30 RF: 0 Continued hydroxyzine pamoate 50 mg capsule RF: 0 clonazepam 1 mg tablet PO TID RF: 0 furosemide 40 mg Tablet 40 mg PO DAILY RF: 0 atorvastatin 80 mg Tablet 80 mg PO QPM RF: 0 quetiapine 200 mg Tablet 100 mg PO BEDTIME RF: 0 Effexor XR 150 mg Capsule,Extended Release 24hr 150 mg PO DAILY RF: 0 thiamine HCl (vitamin B1) 100 mg Tablet 100 mg PO DAILY RF: 0 Aspir-81 81 mg Tablet,Delayed Release (Dr/Ec) 81 mg PO DAILY RF: 0 levothyroxine 75 mcg Tablet 75 mcg PO DAILY RF: 0 pantoprazole 40 mg Tablet,Delayed Release (Dr/Ec) 40 mg PO DAILY RF: 0 lidocaine 5 % Adhesive Patch,Medicated 1 patch TOPICAL DAILY RF: 0 metoprolol tartrate 50 mg Tablet 25 mg PO BID RF: 0 ferrous sulfate 325 mg (65 mg iron) Tablet,Delayed Release (Dr/Ec) 325 mg PO DAILY RF: 0 aripiprazole 20 mg Tablet 20 mg PO DAILY RF: 0 Changed Novolog Flexpen U-100 Insulin 100 unit/mL (3 mL) Insulin Pen See Rx Instructions .ROUTE .COMPLEX Qty: 0 RF: 0 Discontinued insulin glargine 100 unit/mL Solution 50 unit SUBCUT DAILY RF: 0 Discharge Orders: Discharge Order (Routine); Ordered 04/10/19 Ordered By: Azalia Floyd Referrals: Thu Flores AIRPORT SKILLED MAINTENANCE SUPERVISOR [Family Provider] - 1-3 days (PLEASE CALL THURSDAY TO SET UP A FOLLOW UP APPOINTMENT) Discharge Diet: Usual diet and Diabetic Discharge Activity: Resume usual activity Discharge Date/Time: 04/10/19 17:01 Discharge Attestations Time Spent in Discharge Care*: greater than 30 min Quality Metrics Clinical Quality Measures During this hospital stay, did patient experience: None Coding Level of Care Code Acute Farm Management Professor for Padminig Fwd Diagnoses Hypoglycemia E16.2 CKD (chronic kidney disease), stage II N18.2 Insulin dependent type 2 diabetes mellitus E11.9; Z79.4 Hyponatremia E87.1
[2019-04-11 10:41] LABS: C-Peptide 0.43 ng/mL (0.80-3.85)
[2019-04-12 14:10] LABS: Urine Osmolality 146 SEE NOTE
[2019-04-12 23:02] LABS: Glucose Point of Care 258 mg/dL (70-110)
== END 2019-04-10 17:01 | disposition home or self-care (01) | DRG 638 ==
LOC: ER 04-08 03:01 → ICU 04-08 03:17 → MEDSURG 04-09 14:48
PROVIDERS: Admitting Provider Family Medicine; Emergency Provider Emergency Medicine; Family Provider Nurse Practitioner; Visit Provider Student in an Organized Health Care Education/Training Program
DX: E11.649 Type 2 diabetes mellitus with hypoglycemia without coma (principal); E87.1 Hypo-osmolality and hyponatremia; N18.2 Chronic kidney disease, stage 2 (mild); E66.01 Morbid (severe) obesity due to excess calories; K21.9 Gastro-esophageal reflux disease without esophagitis; E03.9 Hypothyroidism, unspecified; Z79.4 Long term (current) use of insulin; G89.29 Other chronic pain; M54.9 Dorsalgia, unspecified; F32.9 Major depressive disorder, single episode, unspecified; E78.5 Hyperlipidemia, unspecified; F17.290 Nicotine dependence, other tobacco product, uncomplicated; G47.33 Obstructive sleep apnea (adult) (pediatric); Z88.8 Allergy status to other drugs, medicaments and biological substances; N17.9 Acute kidney failure, unspecified; Z68.33 Body mass index [BMI] 33.0-33.9, adult; Z91.19 Patient's noncompliance with other medical treatment and regimen; Z72.89 Other problems related to lifestyle; I12.9 Hypertensive chronic kidney disease with stage 1 through stage 4 chronic kidney disease, or unspecified chronic kidney disease; Z79.82 Long term (current) use of aspirin; Z79.52 Long term (current) use of systemic steroids; Z79.899 Other long term (current) drug therapy; Z79.890 Hormone replacement therapy
CPT/HCPCS: 12345; 36415; 36416; 80048; 80053; 80061; 82533; 82962; 83036; 83690; 83735; 83930; 83935; 84300; 84443; 84681; 85025; 87804; 93005; 96365; 96372; 96374; 96375; 99282; J0834; J1644; J2060; J3475; J7030; J7512; J7799

== ENCOUNTER 2019-04-12 21:41 | Observation (INO) | payer OTHER, MEDICARE, SELFPAY ==
[2019-04-12 21:50] VITALS: BP 137/82; PULSE 84; RESP 16; TEMP 36.8; O2SAT 93; BMI 48.7
--- NOTE | 2019-04-12 21:57 | ED_ITS ---
Entered by Wandy Hilton, acting as scribe for Otilia Mooney HPI - Altered Mental Status General: Chief Complaint: Altered Mental Status Stated Complaint: DIABETIC ISSUE Time Seen by Provider: 04/12/19 21:51 Source: patient and EMS Mode of arrival: EMS History of Present Illness: HPI narrative: 64 y/o female presents to the ED with complaint of AMS. EMS reports slurred speech and weakness since about 1730. Pts last known well time was 1700. Pt is a diabetic and was seen here recently for elevated sugar. 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 MD complaint: altered mental status Onset (ago): hour(s) Time: 17:30 Timing confirmed by: spouse Context: history of similar presentation and diabetes Review of Systems Const: Denies: fever, chills, body aches, fatigue, malaise or diaphoresis Eyes: Denies: change in vision or blurry vision ENMT: Denies: throat pain, painful swallowing, hoarseness, ear pain, ear discharge, Change in hearing or nasal discharge Card: Denies: chest pain, palpitations, irregular heart rhythm, syncope, pre- syncope, shortness of breath on exertion or shortness of breath when lying down Resp: Denies: shortness of breath, productive cough, non-productive cough, wheezing, coughing up blood or chest congestion GI: Denies: abdominal pain, nausea, vomiting, vomiting blood, coffee grounds in vomit, diarrhea, constipation, cramping, blood in stool or black tarry stool : Denies: flank pain, painful urination, urinary frequency, urinary urgency, decreased urine ouput, urinary incontinence or blood in urine Musc: Denies: neck pain, back pain, extremity pain, extremity swelling, joint pain, joint swelling, joint warmth or joint stiffness Skin/Breast: Denies: rash, skin tenderness or yellow skin Endo: Denies: excessive thirst, tired all the time, cold intolerance, excessive sweating, flushing or hot flashes Jeremiah/Lymph: Denies: easy bruising, easy bleeding, petechiae or enlarged lymph nodes All/Imm: Denies: hives, throat swelling, tongue swelling, facial swelling or acute wheezing PFSH ED PFSH: Statuses (acute, chronic, etc) shown below reflect problem list status as previously entered and may not be historically accurate Medical History (Updated 04/13/19 @ 03:38 by Otilia Mooney) Chronic back pain (Acute) CKD (chronic kidney disease), stage II (Acute) Depression (Acute) GERD (gastroesophageal reflux disease) (Acute) Hyperlipidemia (Acute) Hypertension (Acute) Hypothyroidism (Acute) Insulin dependent type 2 diabetes mellitus (Acute) Morbid obesity (Acute) Surgical History (Updated 04/08/19 @ 02:44 by Ana Pringle MD) H/O: hysterectomy (Acute) Hx of cholecystectomy (Acute) Family History (Updated 04/08/19 @ 02:45 by Ana Pringle MD) Other CAD (coronary artery disease) Cancer Diabetes Hypertension Social History (Updated 04/08/19 @ 02:45 by Ana Pringle MD) Smoking and tobacco status: former smoker Alcohol intake: current Alcohol intake frequency: 3 or more drinks per day Alcohol type: beer Household members: spouse Housing: House Physical Exam HENMT: COMMON NORMALS: normocephalic, head/scalp atraumatic, hearing grossly normal bilaterally, external ears normal, EAC's normal, external nose normal and moist oral mucous membranes HEAD & SCALP: normal to inspection, normocephalic and atraumatic FACE & SINUS: normal facial exam and face symmetric NOSE: external nose normal and nares normal EXTERNAL EAR: Yes external ears normal EXTERNAL AUDITORY CANAL: EAC's normal MOUTH: oral and palatal mucosa normal and tongue normal Eye: COMMON NORMALS: PERRL, EOMs intact bilaterally, conjunctivae normal and no scleral icterus GENERAL EYE: normal appearance of both eyes and normal light reflex CONJUNCTIVA: Yes conjunctivae normal SCLERA: sclerae normal CORNEA: Yes corneas normal PUPIL: Yes PERRL DIRECT OPHTHALMOSCOPY: Yes normal light reflex Neck/C-Spine: COMMON NORMALS: full ROM, no lymphadenopathy, supple, no meningeal signs and no JVD GENERAL: Yes normal visual inspection and Yes trac hea midline CERVICAL SPINE: Yes cervical ROM normal Chest: COMMONS NORMALS: inspection of chest normal and palpation of chest normal Resp: COMMON NORMALS: normal respiratory effort, no retractions, no use of accessory muscles and clear to auscultation bilaterally EFFORT & INSPECTION: Yes able to speak in complete sentences AUSCULTATION: clear to auscultation bilaterally Cardio: COMMON NORMALS: no JVD, regular rate, regular rhythm, S1 normal heart sound, S2 normal heart sound, no gallops, no clicks, no murmurs and no rub JUGULAR VENOUS DISTENTION: no JVD RATE: regular rate RHYTHM: regular rhythm HEART SOUNDS: S1 normal and S2 normal GI: COMMON NORMALS: soft to palpation, non-tender, no hepatosplenomegaly and no masses INSPECTION: Yes normal to inspection PALPATION: Yes soft and Yes no hepatosplenomegaly : COMMON NORMALS: Yes no CVA tenderness BLADDER/KIDNEY EXAM: Yes no CVA tenderness Back/Pelvis: COMMON NORMALS: no CVA tenderness, thoracic and lumbar spine normal to inspection, no thoracic nor lumbar tenderness and thoraco-lumbar ROM normal Extremity: COMMON NORMALS: normal to inspection, full ROM, normal capillary refill, no joint enlargement, no clubbing, cyanosis or edema and no calf tenderness Neuro: MENINGEAL SIGNS: Yes no meningeal signs Skin: COMMON NORMALS: no rashes or lesions noted, skin turgor normal, no jaundice, no petechiae and no mottling GENERAL SKIN EXAM: no rashes or lesions noted and turgor normal Course ED course: 0009 - Vital Signs: Vital signs: Vital Signs Temperature 97.4 F L 04/12/19 22:15 Pulse Rate 90 04/13/19 01:00 Respiratory Rate 16 04/13/19 01:00 Blood Pressure 116/80 04/13/19 01:00 Pulse Oximetry 95 04/13/19 01:00 MDM - Altered Mental Status MDM Narrative: Medical decision making narrative: Patient comes in with slurred speech but no other acute findings. She does appear very somnolent at times and has a GCS of 14. I reviewed the case in full with Dr. Murdock who is agreeable to admit. Patient is not a TPA candidate with a low NIH stroke score and she presented outside the window for TPA. Further care will be dictated by Dr. Murdock. Lab Data: Attestation: I reviewed the patient's lab results. Labs: Lab Results 04/12/19 04/12/19 04/12/19 Range/Units 22:05 22:05 22:05 WBC 9.2 (4.0-10.0) 10^3/ uL RBC 4.79 (4.1-5.3) 10^6/u L Hgb 12.4 (11.5-15.3) g/dL Hct 39.2 (37.0-47.0) % MCV 81.8 (81-99) fL MCH 25.9 L (28.0-34.0) pg MCHC 31.6 (30.0-36.0) g/dL RDW 17.3 H (12.1-15.1) % Plt Count 469 H (130-400) 10^3/c mm MPV 9.8 (7.4-10.4) fL Neut % (Auto) 65.9 % Lymph % (Auto) 27.9 % [place] % (Auto) 4.8 % Eos % (Auto) 0.2 % Baso % (Auto) 0.7 % Neut # (Auto) 6.0 (1.8-7.7) 10^3/u L Lymph # (Auto) 2.6 (0.8-4.8) 10^3/u L [place] # (Auto) 0.4 (0.2-0.9) 10^3/u L Eos # (Auto) 0.0 (0.0-0.8) 10^3/u L Baso # (Auto) 0.1 (0.0-0.1) 10^3/u L Nucleated RBC % (a uto) 0 % Nucleated RBCs # 0.0 /100WBC PT 13.50 H (10.5-13.3) SECO NDS INR 1.00 (0.8-1.2) APTT 27.1 (23.9-36.7) SECO NDS Sodium 134 L (136-145) mmol/L Potassium 3.8 (3.5-5.1) mmol/L Chloride 94 L (98-107) mmol/L Carbon Dioxide 22 (22-29) mmol/L Anion Gap 21.8 H (5-19) BUN 3 L (8-23) mg/dL Creatinine 0.6 (0.5-0.9) mg/dL GFR Calculation 100.3 (90-130) mL/min Glucose 303 H (74-106) mg/dL Calcium 9.1 (8.8-10.2) mg/Dl Total Bilirubin 0.2 (0.15-1.2) mg/dL AST 17 (0-32) U/L ALT 13 (0-33) U/L Alkaline Phosphata se 126 H (35-105) IU/L Troponin T Baselin e (0-10) ng/mL Troponin T 120 Min tribe (0-10) ng/mL Delta Troponin T (0-10) ABS# Total Protein 7.1 (6.6-8.7) g/dL Albumin 3.4 L (3.5-5.2) g/dL Globulin 3.7 (1.3-4.6) g/dL Urine Color (Yellow) Urine Appearance (CLEAR) Urine pH (5-7) Ur Specific Gravit y (1.005-1.030) Urine Protein (Negative) Urine Glucose (UA) (Normal) Urine Ketones (Negative) Urine Occult Blood (Negative) Urine Nitrate (Negative) Urine Bilirubin (NEGATIVE) Urine Urobilinogen (Negative) mg/dL Ur Leukocyte Kiara ase (Negative) Serum Ketones (Negative) 04/12/19 04/12/19 04/12/19 Range/Units 22:05 22:05 23:10 WBC (4.0-10.0) 10^3/ uL RBC (4.1-5.3) 10^6/u L Hgb (11.5-15.3) g/dL Hct (37.0-47.0) % MCV (81-99) fL MCH (28.0-34.0) pg MCHC (30.0-36.0) g/dL RDW (12.1-15.1) % Plt Count (130-400) 10^3/c mm MPV (7.4-10.4) fL Neut % (Auto) % Lymph % (Auto) % [place] % (Auto) % Eos % (Auto) % Baso % (Auto) % Neut # (Auto) (1.8-7.7) 10^3/u L Lymph # (Auto) (0.8-4.8) 10^3/u L [place] # (Auto) (0.2-0.9) 10^3/u L Eos # (Auto) (0.0-0.8) 10^3/u L Baso # (Auto) (0.0-0.1) 10^3/u L Nucleated RBC % (a uto) % Nucleated RBCs # /100WBC PT (10.5-13.3) SECO NDS INR (0.8-1.2) APTT (23.9-36.7) SECO NDS Sodium (136-145) mmol/L Potassium (3.5-5.1) mmol/L Chloride (98-107) mmol/L Carbon Dioxide (22-29) mmol/L Anion Gap (5-19) BUN (8-23) mg/dL Creatinine (0.5-0.9) mg/dL GFR Calculation (90-130) mL/min Glucose (74-106) mg/dL Calcium (8.8-10.2) mg/Dl Total Bilirubin (0.15-1.2) mg/dL AST (0-32) U/L ALT (0-33) U/L Alkaline Phosphata se (35-105) IU/L Troponin T Baselin e 10 (0-10) ng/mL Troponin T 120 Min tribe (0-10) ng/mL Delta Troponin T (0-10) ABS# Total Protein (6.6-8.7) g/dL Albumin (3.5-5.2) g/dL Globulin (1.3-4.6) g/dL Urine Color Straw (Yellow) Urine Appearance Clear (CLEAR) Urine pH 7 (5-7) Ur Specific Gravit y 1.000 L (1.005-1.030) Urine Protein Neg (Negative) Urine Glucose (UA) 4+ H (Normal) Urine Ketones Negative (Negative) Urine Occult Blood Neg (Negative) Urine Nitrate Negative (Negative) Urine Bilirubin Neg (NEGATIVE) Urine Urobilinogen Norm (Negative) mg/dL Ur Leukocyte Kiara ase Negative (Negative) Serum Ketones Negative (Negative) 04/13/19 Range/Units 00:04 WBC (4.0-10.0) 10^3/ uL RBC (4.1-5.3) 10^6/u L Hgb (11.5-15.3) g/dL Hct (37.0-47.0) % MCV (81-99) fL MCH (28.0-34.0) pg MCHC (30.0-36.0) g/dL RDW (12.1-15.1) % Plt Count (130-400) 10^3/c mm MPV (7.4-10.4) fL Neut % (Auto) % Lymph % (Auto) % [place] % (Auto) % Eos % (Auto) % Baso % (Auto) % Neut # (Auto) (1.8-7.7) 10^3/u L Lymph # (Auto) (0.8-4.8) 10^3/u L [place] # (Auto) (0.2-0.9) 10^3/u L Eos # (Auto) (0.0-0.8) 10^3/u L Baso # (Auto) (0.0-0.1) 10^3/u L Nucleated RBC % (a uto) % Nucleated RBCs # /100WBC PT (10.5-13.3) SECO NDS INR (0.8-1.2) APTT (23.9-36.7) SECO NDS Sodium (136-145) mmol/L Potassium (3.5-5.1) mmol/L Chloride (98-107) mmol/L Carbon Dioxide (22-29) mmol/L Anion Gap (5-19) BUN (8-23) mg/dL Creatinine (0.5-0.9) mg/dL GFR Calculation (90-130) mL/min Glucose (74-106) mg/dL Calcium (8.8-10.2) mg/Dl Total Bilirubin (0.15-1.2) mg/dL AST (0-32) U/L ALT (0-33) U/L Alkaline Phosphata se (35-105) IU/L Troponin T Baselin e (0-10) ng/mL Troponin T 120 Min tribe 9.10 (0-10) ng/mL Delta Troponin T -0.90 L (0-10) ABS# Total Protein (6.6-8.7) g/dL Albumin (3.5-5.2) g/dL Globulin (1.3-4.6) g/dL Urine Color (Yellow) Urine Appearance (CLEAR) Urine pH (5-7) Ur Specific Gravit y (1.005-1.030) Urine Protein (Negative) Urine Glucose (UA) (Normal) Urine Ketones (Negative) Urine Occult Blood (Negative) Urine Nitrate (Negative) Urine Bilirubin (NEGATIVE) Urine Urobilinogen (Negative) mg/dL Ur Leukocyte Kiara ase (Negative) Serum Ketones (Negative) Discharge Plan Discharge Patient Disposition: Placed in Observation Admit Provider: Tian Murdock Clinical Impression: Altered mental status Condition: Stable Coding Level of Care Code ED Fish Icer for Chg Fwpaty The documentation recorded by the Yobani navarro Ashley, accurately reflects the service I personally performed and the decisions made by Jesica duarte Eli N Apr 12, 2019 21:41
--- NOTE | 2019-04-12 22:00 | CTR_ITS ---
PROCEDURE INFORMATION: Exam: CT Head Without Contrast Exam date and time: 04/12/2019 10:09 PM Age: 64 years old Clinical indication: Altered mental status/memory loss and speech disturbance; Slurred speech; Additional info: Symptoms of acute stroke TECHNIQUE: Imaging protocol: Computed tomography of the head without contrast. Total DLP: 849.84 mGy-cm Radiation optimization: All CT scans at this facility use at least one of these dose optimization techniques: automated exposure control; mA and/or kV adjustment per patient size (includes targeted exams where dose is matched to clinical indication); or iterative reconstruction. Other technique: STROKE PROTOCOL was implemented. COMPARISON: CT head wo con* [id number] 02/18/2019 2:05 PM FINDINGS: Brain: Normal. No hemorrhage. Unremarkable white matter. No mass effect. Ventricles: Normal. No ventriculomegaly. Bones/joints: Unremarkable. No acute fracture. Sinuses: Visualized sinuses are unremarkable. No fluid levels. Mastoid air cells: Visualized mastoid air cells are well aerated. Soft tissues: Unremarkable. CT/CT head wo con* [id number] IMPRESSION: No acute intracranial abnormality ASSESSMENT: ASPECTS ([place] Stroke Program Early CT Score) is10. Radiation Dose CTDIVOL = (mGy): DLP = 849.84 (mGy-cm)
--- NOTE | 2019-04-12 22:00 | ECG_ITS ---
Measurements Intervals [place] Rate: 88 P: 72 AR: 134 QRS: 75 QRSD: 90 T: 107 QT: 400 QTc: 486 SINUS RHYTHM NONSPECIFIC T-WAVE ABNORMALITY Compared to ECG 04/08/2019 00:42:04 T-wave abnormality now present Electronically Signed On 04-13-2019 20:22:19 HAIR ROOTING MACHINE OPERATOR by Quinton Vital M.D. [id number] f
[2019-04-12 22:11] LABS: Basophils # 0.1 10^3/uL (0.0-0.1); Basophils % 0.7 %; Eosinophils % 0.2 %; Hematocrit 39.2 % (37.0-47.0); Hemoglobin 12.4 g/dL (11.5-15.3); Lymphocytes # 2.6 10^3/uL (0.8-4.8); Lymphocytes % 27.9 %; Mean Corpuscular HGB Conc 31.6 g/dL (30.0-36.0); Mean Corpuscular Hemoglobin 25.9 pg (28.0-34.0); Mean Corpuscular Volume 81.8 fL (81-99); Mean Platelet Volume 9.8 fL (7.4-10.4); Monocytes # 0.4 10^3/uL (0.2-0.9); Monocytes % 4.8 %; Neutrophils % 65.9 %; Nucleated Red Blood Cells % 0 %; Platelet Count 469 10^3/cmm (130-400); Red Blood Count 4.79 10^6/uL (4.1-5.3); Red Cell Distribution Width 17.3 % (12.1-15.1); White Blood Count 9.2 10^3/uL (4.0-10.0)
[2019-04-12 22:15] VITALS: BP 116/80; PULSE 87; RESP 18; TEMP 36.3; O2SAT 93
[2019-04-12 22:22] LABS: Partial Thromboplastin Time 27.1 SECONDS (23.9-36.7)
[2019-04-12 22:27] LABS: Alanine Aminotransferase 13 U/L (0-33); Albumin Level 3.4 g/dL (3.5-5.2); Alkaline Phosphatase 126 IU/L (35-105); Anion Gap 21.8 (5-19); Blood Urea Nitrogen 3 mg/dL (8-23); Calcium 9.1 mg/Dl (8.8-10.2); Carbon Dioxide 22 mmol/L (22-29); Chloride 94 mmol/L (98-107); Globulin 3.7 g/dL (1.3-4.6); Glomerular Filtration Rate 100.3 mL/min (90-130); Glucose 303 mg/dL (74-106); Potassium 3.8 mmol/L (3.5-5.1); Sodium 134 mmol/L (136-145); Total Bilirubin 0.2 mg/dL (0.15-1.2); Total Protein 7.1 g/dL (6.6-8.7)
[2019-04-12 22:28] LABS: Troponin(5th) Baseline 10 ng/mL (0-10)
[2019-04-12 22:36] LABS: Aspartate Amino Transferase 17 U/L (0-32)
[2019-04-12 22:45] VITALS: BP 116/80; PULSE 81; RESP 18; O2SAT 95
[2019-04-12] MEDS: sodium chloride 0.9% 500 ML 999 ML IV (22:50)
--- NOTE | 2019-04-12 23:13 | PC.NURSE ---
Introduced self to patient and initiated vital signs. Pt is A&O x 4 and agreeable. Pt states that the reason for the ER visit today is due to lethargy and weakness per . states that pt went bathroom earlier this PM and was unable to get off of commode w/o assistance. Reassured patient of needs and will continue to monitor. Awaiting provider at bedside.
[2019-04-12 23:47] LABS: Add Urine Microscopic? NO
[2019-04-12 23:55] LABS: Bilirubin Urine Neg (NEGATIVE); Blood Urine Neg (Negative); Glucose Urine UA 4+ (Normal); Ketones Urine Negative (Negative); Leukocyte Esterase Urine Negative (Negative); Nitrate Urine Negative (Negative); Protein Urine Neg (Negative); Urine Appearance Clear (CLEAR); Urine Color Straw (Yellow); Urobilinogen Urine Norm (Negative); pH Urine 7 (5-7)
[2019-04-13] VITALS (10 sets, daily range): BP systolic 116–158; BP diastolic 75–84; PULSE 68–98; RESP 16–24; TEMP 36.4–36.7; O2SAT 92–97
--- NOTE | 2019-04-13 00:01 | ECG_ITS ---
Measurements Intervals [place] Rate: 91 P: 70 UT: 135 QRS: 74 QRSD: 92 T: 115 QT: 381 QTc: 470 SINUS RHYTHM NONSPECIFIC T-WAVE ABNORMALITY Compared to ECG 04/08/2019 00:42:04 T-wave abnormality now present Electronically Signed On 04-13-2019 20:33:00 VET TECH by Quinton Vital M.D. [id number]
[2019-04-13 00:04] LABS: Ketone (Acetest) Serum Negative (Negative)
--- NOTE | 2019-04-13 01:51 | PM.HP ---
Providers/Chief Complaint Chief Complaint: WEAKNESS History of Present Illness Ingris Mendosa is a 64 year old female who was recently discharged from the hospital after management of hypoglycemia, cortisol ACTH stimulation test showed suboptimal response and she was discharged on prednisone. She was brought back to the hospital by her because of extreme weakness lethargy and recent fall. is stating that she was try to get out of bathroom when she was holding onto him and fell to one side on a dog bed while she was conscious, she did not experience any seizure, syncope. Patient is stating that her legs gave up on her and she was feeling very tired and fatigued, she has only taken 2 doses of steroids and she is feeling weak with muscle aches. is stating that her mentation is also fluctuant she has been taking sliding scale for hyper glycemia, she did not notice any hypoglycemic events. Diagnostics in ER showed normal hemodynamics with hyperglycemia of 303 CT head was negative patient was awake alert code stroke was called because of altered mental status in the beginning NIH score was 1 When I examined the patient she was awake alert NIH score was 0 I started her on hydrocortisone considering renal insufficiency causing generalized weakness and myopathy Review of Systems Const: Reports: body aches, fatigue, malaise and daytime sleepiness; Denies: change in sleep pattern Eyes: Denies: change in vision ENMT: Denies: throat pain Card: Denies: chest pain Resp: Denies: shortness of breath GI: Denies: abdominal pain : Denies: flank pain Musc: Reports: muscle cramps and muscle weakness Neuro: Denies: headache Psych: Reports: sleeping more Endo: Denies: excessive urination Jeremiah/Lymph: Denies: easy bruising All/Imm: Denies: hives Medications/Allergies Allergies Allergy/AdvReac Type Severity Reaction Status Date / [facility] All[facility] Severe ALGY-Hives Verified 04/07/19 22:35 PFSH Acute PFSH: Statuses (acute, chronic, etc) shown below reflect problem list status as previously entered and may not be historically accurate Medical History (Updated 04/13/19 @ 04:51 by Tian Murdock MD) Chronic back pain (Acute) CKD (chronic kidney disease), stage II (Acute) Depression (Acute) GERD (gastroesophageal reflux disease) (Acute) Hyperlipidemia (Acute) Hypertension (Acute) Hypothyroidism (Acute) Insulin dependent type 2 diabetes mellitus (Acute) Morbid obesity (Acute) Surgical History (Updated 04/08/19 @ 02:44 by Ana Pringle MD) H/O: hysterectomy (Acute) Hx of cholecystectomy (Acute) Family History (Updated 04/08/19 @ 02:45 by Ana Pringle MD) Other CAD (coronary artery disease) Cancer Diabetes Hypertension Social History (Updated 04/08/19 @ 02:45 by Ana Pringle MD) Smoking and tobacco status: former smoker Alcohol intake: current Alcohol intake frequency: 3 or more drinks per day Alcohol type: beer Household members: spouse Housing: House Vitals/I&O/Wt Last Vital Signs Temp 97.4 F L 04/12/19 22:15 Pulse 81 04/12/19 22:45 Resp 18 04/12/19 22:45 BP 116/80 04/12/19 22:45 Pulse Ox 95 04/12/19 22:45 Weight last 48 hrs Weight 117.027 kg Physical Exam Narrative: EXAM NARRATIVE: Morbidly obese female lying comfortably in her bed Neurologically nonfocal exam she is awake alert oriented x3 NIH score 0 Reflexes equivocal No sensory deficit S1-S2 without active murmur heart failure with positive JVD Abdomen positive obese obesity, bowel sounds present, soft nontender Her lungs are clear to auscultation without adventitious sounds Skin without any signs of ischemia gangrene also Mentation with appropriate mood and affect Patient is edentulous, her speech is slow but not slurred she is able to make her needs known she is comprehending my questions very well, Data : 04/12/19 22:05 04/12/19 22:05 A&P Assessment and plan (1) Altered mental status: Status: Acute Qualifiers: Altered mental status type: somnolence Qualified Code(s): R40.0 - Somnolence Code(s): R41.82 - Altered mental status, unspecified (2) Fatigue: Status: Acute Code(s): R53.83 - Other fatigue (3) Myopathy: Status: Acute Code(s): G72.9 - Myopathy, unspecified (4) Adrenal insufficiency: Status: Acute Code(s): E27.40 - Unspecified adrenocortical insufficiency Additional A&P Information Generalized malaise and fatigue I believe her symptoms are secondary to adrenal insufficiency with underlying use of steroids and hypothyroidism causing myopathy I will check CPK, discontinue prednisone and use hydrocortisone 5 mg daily She is also suffering from polypharmacy I will discontinue most of her anxiolytics and sleep aids for now Obstructive sleep apnea: Patient is noncompliant with CPAP machine and is using antidepressants and anxiolytics which can attribute to her confusion I would hold most of her psychotropic medications Adrenal insufficiency with suboptimal response to ACTH stimulation test with recent hypoglycemia I will start her on hydrocortisone No acute adrenal crisis Hypothyroidism: TSH on high normal side, she will probably need higher dose of levothyroxine currently she is on 75 mcg Poorly controlled type 2 diabetes, hemoglobin A1c 8.7, she has been started on sliding scale because of recent hypoglycemic event, Lantus was discontinued, I will keep her on moderate dose sliding scale Physical therapy DVT prophylaxis Lovenox Attestations Medical Necessity Statement*: Anticipating her stay to be less than 48 hours, she might need rehab for her generalized weakness secondary to metabolic disorder Time Spent in Patient Care: (>than 50% of time spent in counselling and/or direct pt care on unit). 50 Coding Level of Care Code Acute Clay Pigeon Loader for Chg Fwd Diagnoses Altered mental status R40.0 Altered mental status type: somnolence Fatigue R53.83 Myopathy G72.9 Adrenal insufficiency E27.40
--- NOTE | 2019-04-13 04:01 | ECG_ITS ---
Measurements Intervals [place] Rate: 98 P: 74 TX: 124 QRS: 83 QRSD: 87 T: 93 QT: 370 QTc: [address] & T-WAVE ABNORMALITY Compared to ECG 04/08/2019 00:42:04 T-wave abnormality now present Electronically Signed On 04-13-2019 20:33:35 [employer]STRUM[employer] SUPERVISOR by Quinton Vital M.D. [email or web address]
--- NOTE | 2019-04-13 04:01 | PC.NURSE ---
Multiple IVs were attempted by nursing staff but were unsuccessful. Pt stated she will not allow any more attempts at IVs. It was explained by nurse that CT is recommended by MD, and that access is requiree. She said absolutely not .
[2019-04-13 04:18] LABS: Troponin 5 6HR 10.57 ng/L (0-10); Troponin 5 6HR Delta 0.57 ng/L (0-12)
[2019-04-13 04:24] LABS: ABG PCO2 37.3 mmHg (35-45); ABG PH Result 7.45 (7.35-7.45); Arterial Blood Gas Hematocrit 38.6 % (37-47); Base Excess ABG 1.7 mmol/L (-2.0-2.0); Blood Gas Allen Test Pos; Blood Gas Sample Site Brachial, right; Blood Gas Sample Type Arterial; HCO3 ABG 25.7 mmol/L (22-26); Oxygen Device ROOM AIR; PO2 ABG 77.6 mmHg (80.0-100.0)
[2019-04-13 06:05] LABS: Creatine Phosphokinase 20 U/L (26-192)
[2019-04-13 07:49] LABS: Glucose Point of Care 172 mg/dL (70-110)
[2019-04-13] MEDS: thiamine 100 mg Tablet PO (08:28)
[2019-04-13] MEDS: levothyroxine 150 mcg Tablet 75 MCG PO (08:28)
[2019-04-13] MEDS: aspirin 81 mg EC Tablet PO (08:28)
[2019-04-13] MEDS: pantoprazole DR 40 mg Tablet PO (08:29)
[2019-04-13] MEDS: metoprolol tartrate 50 mg Tablet 25 MG PO (08:29)
[2019-04-13] MEDS: enoxaparin 40 mg/0.4 mL Syringe SUBCUT (08:29)
--- NOTE | 2019-04-13 10:00 | PC.NURSE ---
Pt up in room working with physical therapy at this time
[2019-04-13] MEDS: hydrocortisone 10 mg Tablet 5 MG PO (10:31)
[2019-04-13 12:41] LABS: Glucose Point of Care 242 mg/dL (70-110)
[2019-04-13 17:00] LABS: Amphetamines Screen Urine Negative (Negative); Barbiturates Screen Urine Negative (Negative); Benzodiazepines Screen Urine Negative (Negative); Cocaine Screen Urine Negative (Negative); Opiate Screen Urine Negative (Negative); PCP Screen Urine Negative (Negative); THC Screen Urine Negative (Negative)
--- NOTE | 2019-04-17 18:24 | PM.DCS ---
Discharge Providers Date of Admission: 04/13/19 03:07 Date of Discharge: 04/17/19 Attending Provider at Admission: Tian Murdock MD Attending Provider at Discharge: Azalia Floyd MD Primary Care Provider: KATRINA Cash Diagnoses at Discharge Discharge Diagnosis (1) Altered mental status: Status: Acute Qualifiers: Altered mental status type: somnolence Qualified Code(s): R40.0 - Somnolence (2) Fatigue: Status: Acute (3) Myopathy: Status: Resolved (4) Adrenal insufficiency: Status: Acute Reason for Visit Reason for Visit: Reason For Visit: WEAKNESS Hospital Course Discharge Summary: Ingris Mendosa is a 64 year old female who was recently discharged from the hospital after management of hypoglycemia, cortisol ACTH stimulation test showed suboptimal response and she was discharged on prednisone 5mg qd. She was brought back to the hospital by her because of extreme weakness lethargy and recent fall. is stating that she was try to get out of bathroom when she was holding onto him and fell to one side on a dog bed while she was conscious, she did not experience any seizure, syncope. CT head was negative. Patient had normal orthostatic blood pressure. There were no further episodes by time of discharge. patient was mentating well and ambulating in the room with support. There were no new focal deficits. Her steroids were changed to hydrocortisone upon admission. It was explained that low dose long acting steroids (prednisone 5mg) and hydrocortisone (TID dosing) are both acceptable treatment options for suspected chronic adrenal insufficiency. Patient did not have signs of adrenal crisis as she did not have hypotension, hyponatremia, hyperkalemia or other acute metabolic abnormalities. Both options were presented, of which she decided to continue with prednisone since she had already filled a prescription for the same. She will follow up with membership sales advisor as an outpatient. Physical Exam Narrative: EXAM NARRATIVE: GEN: Awake, alert and oriented, no acute distress CVS: S1S2 N RS: CTA B/L Abd: Soft, nt/nd , bs+ DESIGNER/WRITER: no focal neuro deficits Discharge Data Data Completed and Pending: Completed Studies During Hospitalization Category Date Time Status CT head wo con* 7 0450 Stat Cat Scan 04/12/19 22:00 Completed Vitals: Last Vital Signs Temp 97.6 F 04/13/19 17:32 Pulse 86 04/13/19 17:32 Resp 18 01/22/20 17:32 BP 138/75 04/13/19 17:32 Pulse Ox 92 04/13/19 17:32 Discharge Plan Discharge Patient Disposition: Home, Self-Care Condition: Stable Prescriptions: New acetaminophen 325 mg Tablet 650 mg PO Q4H PRN (Reason: Mild Pain Or Increase Temp) 30 Days Qty: 30 RF: 0 Continued furosemide 40 mg Tablet 40 mg PO DAILY RF: 0 atorvastatin 80 mg Tablet 80 mg PO QPM RF: 0 thiamine HCl (vitamin B1) 100 mg Tablet 100 mg PO DAILY RF: 0 Aspir-81 81 mg Tablet,Delayed Release (Dr/Ec) 81 mg PO DAILY RF: 0 levothyroxine 75 mcg Tablet 75 mcg PO DAILY RF: 0 pantoprazole 40 mg Tablet,Delayed Release (Dr/Ec) 40 mg PO DAILY RF: 0 lidocaine 5 % Adhesive Patch,Medicated 1 patch TOPICAL DAILY RF: 0 metoprolol tartrate 50 mg Tablet 25 mg PO BID RF: 0 ferrous sulfate 325 mg (65 mg iron) Tablet,Delayed Release (Dr/Ec) 325 mg PO DAILY RF: 0 prednisone 10 mg Tablet 5 mg PO DAILY Qty: 30 RF: 0 Novolog Flexpen U-100 Insulin 100 unit/mL (3 mL) Insulin Pen See Rx Instructions .ROUTE .COMPLEX Qty: 0 RF: 0 Changed quetiapine 200 mg Tablet 50 mg PO BEDTIME Qty: 0 RF: 0 Effexor XR 150 mg Capsule,Extended Release 24hr 75 mg PO DAILY Qty: 0 RF: 0 Discontinued hydroxyzine pamoate 50 mg capsule RF: 0 clonazepam 1 mg tablet PO TID RF: 0 aripiprazole 20 mg Tablet 20 mg PO DAILY RF: 0 No Action metronidazole [Flagyl] 250 mg tablet 500 mg PO TID 10 Days Qty: 60 RF: 0 ciprofloxacin HCl [Cipro] 500 mg tablet 500 mg PO BID Qty: 20 RF: 0 vancomycin 125 mg capsule 125 mg PO QID 10 Days Qty: 40 RF: 0 Discharge Orders: Discharge Order (Routine); Ordered 04/13/19 Ordered By: Azalia Floyd Referrals: doctor, endocrinology [Other] - 7-10 days (Patient states she will follow up with physician after discharge. ) Thu Flores BODY CLEANER [Primary Care Provider] - 1-3 days (Patient already has appointment scheduled. ) Discharge Diet: Usual diet Discharge Activity: Resume usual activity Patient Instructions: Acetaminophen (By mouth), Fatigue, Altered Mental Status (GEN) Discharge Date/Time: 04/13/19 17:34 Discharge Attestations Time Spent in Discharge Care*: less than 30 min Quality Metrics Clinical Quality Measures During this hospital stay, did patient experience: None Coding Level of Care Code Acute Film And Video Graphics Designer for Padminig Fwd Diagnoses Altered mental status R40.0 Altered mental status type: somnolence Fatigue R53.83 Myopathy G72.9 Adrenal insufficiency E27.40
== END 2019-04-13 17:34 | disposition home or self-care (01) ==
LOC: ER 04-13 03:06 → MEDSURG 04-13 03:08
PROVIDERS: Admitting Provider Internal Medicine; Emergency Provider Emergency Medicine; Family Provider Nurse Practitioner; PCP Nurse Practitioner; Visit Provider Student in an Organized Health Care Education/Training Program
DX: R41.82 Altered mental status, unspecified (principal); R53.83 Other fatigue; G72.9 Myopathy, unspecified; E27.40 Unspecified adrenocortical insufficiency; E11.22 Type 2 diabetes mellitus with diabetic chronic kidney disease; I12.9 Hypertensive chronic kidney disease with stage 1 through stage 4 chronic kidney disease, or unspecified chronic kidney disease; N18.2 Chronic kidney disease, stage 2 (mild); F32.9 Major depressive disorder, single episode, unspecified; E78.5 Hyperlipidemia, unspecified; E66.01 Morbid (severe) obesity due to excess calories; Z68.42 Body mass index [BMI] 45.0-49.9, adult; Z79.4 Long term (current) use of insulin; Z82.49 Family history of ischemic heart disease and other diseases of the circulatory system; Z82.1 Family history of blindness and visual loss; Z83.3 Family history of diabetes mellitus; Z87.891 Personal history of nicotine dependence; Z79.82 Long term (current) use of aspirin
CPT/HCPCS: 12345; 36415; 36416; 36600; 70450; 80053; 80307; 81003; 82009; 82550; 82803; 82962; 84484; 85025; 85610; 85730; 93005; 94762; 96360; 96372; 97110; 97161; 99283; 99285; G0378; J1650; J1815; J7040; J8499

== ENCOUNTER 2019-04-14 12:25 | Outpatient (CLI) | payer OTHER, MEDICARE, SELFPAY | END 2019-04-14 12:26 | disposition home or self-care (01) | LOC: LAB 12:30 | PROVIDERS: Family Provider Nurse Practitioner; PCP Nurse Practitioner; Visit Provider Surgery | DX: A04.72 Enterocolitis due to Clostridium difficile, not specified as recurrent (principal) | CPT/HCPCS: 83630; 87177; 87209; 87493; 87505 ==

== ENCOUNTER 2019-05-02 05:29 | Emergency (ER) | payer OTHER, MEDICARE, SELFPAY ==
[2019-05-02 05:38] VITALS: BP 112/68; PULSE 84; RESP 16; TEMP 36.6; O2SAT 94; BMI 26.4
--- NOTE | 2019-05-02 06:20 | ED_ITS ---
HPI - General Adult General: Chief complaint: General Medical Stated complaint: 472 BLOOD SUGAR Time Seen by Provider: 05/02/19 05:57 History of Present Illness: HPI narrative: 64 yo female presents with hyperglycemia. Patient has a history of diabetes mellitus and chronic adrenal insufficiency. She was recently hospitalized and her Lantus was stopped she had been on 35 units she is only taking regular now. She also had been continued on prednisone for adrenal insufficiency. She reports morning her blood pressure was in excess of 400 she called the nurse hotline advised her just to come to the emergency room she does not take any regular insulin prior to. She denies dysuria urgency or frequency. Denies nausea vomiting or diarrhea. Associated symptoms: Deny chest pain, dyspnea, malaise, nausea, rash or vomiting Review of Systems Const: Denies: fever, chills, body aches, change in appetite, fatigue or malaise ENMT: Denies: throat pain, ear pain, nasal discharge or nasal congestion Card: Denies: chest pain, edema, shortness of breath on exertion or shortness of breath when lying down Resp: Denies: shortness of breath, productive cough or non-productive cough GI: Denies: abdominal pain, nausea, vomiting, vomiting blood, coffee grounds in vomit, diarrhea, constipation, bloating, blood in stool or black tarry stool : Denies: flank pain, difficulty urinating, painful urination, urinary frequency or urinary urgency Skin/Breast: Denies: rash or itching PFSH ED PFSH: Statuses (acute, chronic, etc) shown below reflect problem list status as previously entered and may not be historically accurate Medical History Chronic back pain (Acute) Chronic diarrhea (Resolved) CKD (chronic kidney disease), stage II (Acute) Depression (Acute) GERD (gastroesophageal reflux disease) (Acute) Hyperlipidemia (Acute) Hypertension (Acute) Hypothyroidism (Acute) Insulin dependent type 2 diabetes mellitus (Acute) Morbid obesity (Acute) Surgical History H/O: hysterectomy (Acute) History of bunionectomy (Acute) bilateral Hx of cholecystectomy (Acute) Family History Other CAD (coronary artery disease) Cancer Diabetes Hypertension Denies family history of Anesthesia complication Bleeding disorder Social History Smoking and tobacco status: current every day smoker cigars Cigars smoked per week: 28 Alcohol intake: current Alcohol intake frequency: 3 or more drinks per day Alcohol type: beer Household members: spouse Housing: House Marital status: Current occupational status: retired Physical Exam Const: COMMON NORMALS: no apparent distress GENERAL APPEARANCE: cooperative and comfortable ORIENTATION/CONSCIOUSNESS: Yes awake, Yes oriented to person, Yes oriented to place and Yes oriented to time HENMT: COMMON NORMALS: normocephalic, head/scalp atraumatic, hearing grossly normal bilaterally, external ears normal, EAC's normal, TM's normal bilaterally, nasal mucous membranes and turbinates normal, moist oral mucous membranes and oropharynx normal HEAD & SCALP: normocephalic and atraumatic NOSE: nasal mucous membranes and turbinates normal EXTERNAL EAR: Yes external ears normal EXTERNAL AUDITORY CANAL: EAC's normal TYMPANIC MEMBRANE: TM's normal bilaterally Eye: COMMON NORMALS: PERRL, EOMs intact bilaterally, conjunctivae normal and no scleral icterus CONJUNCTIVA: Yes conjunctivae normal PUPIL: Yes PERRL Neck/C-Spine: COMMON NORMALS: full ROM, no lymphadenopathy, supple and no JVD Lymph: LYMPHATIC: no lymphadenopathy noted and no lymphedema noted Resp: COMMON NORMALS: normal respiratory effort, no retractions, no use of accessory muscles and clear to auscultation bilaterally AUSCULTATION: clear to auscultation bilaterally Cardio: COMMON NORMALS: no JVD, regular rate, regular rhythm and no murmurs RATE: regular rate RHYTHM: regular rhythm GI: COMMON NORMALS: soft to palpation and no hepatosplenomegaly AUSCULTATION: Yes normoactive bowel sounds PALPATION: Yes soft, No tender, No guarding and Yes no hepatosplenomegaly Extremity: COMMON NORMALS: normal to inspection, normal capillary refill, no clubbing, cyanosis or edema, no calf tenderness and no pedal edema Neuro: SENSORIUM/ORIENTATION: Yes oriented to person, Yes oriented to place and Yes oriented to time Skin: COMMON NORMALS: no rashes or lesions noted GENERAL SKIN EXAM: no rashes or lesions noted Course ED course: Patient is feeling much better we given insulin and fluids. Her sodium was little bit low and was repeated remains low. She is awake alert wants to go home we will go ahead and discharge her home have her repeat restart her Lantus at 10 units daily keep her blood sugar log at least 3-4 times a day follow-up with her primary care doctor in 3 to 4 days for further adjustments. She also needs a follow-up sodium. Vital Signs: Vital signs: Vital Signs Temperature 97.8 F 05/02/19 05:38 Pulse Rate 80 05/02/19 09:06 Respiratory Rate 18 05/02/19 09:06 Blood Pressure 112/69 05/02/19 09:06 Pulse Oximetry 93 05/02/19 09:06 [facility] - General Adult Lab Data: Attestation: I reviewed the patient's lab results. Labs: Lab Results 05/02/19 05/02/19 05/02/19 Range/Units 06:26 06:40 06:40 WBC 7.1 (4.0-10.0) 10^3/ uL RBC 4.28 (4.1-5.3) 10^6/u L Hgb 11.2 L (11.5-15.3) g/dL Hct 34.3 L (37.0-47.0) % MCV 80.1 L (81-99) fL MCH 26.2 L (28.0-34.0) pg MCHC 32.7 (30.0-36.0) g/dL RDW 16.5 H (12.1-15.1) % Plt Count 369 (130-400) 10^3/c mm MPV 10.4 (7.4-10.4) fL Neut % (Auto) 52.9 % Lymph % (Auto) 35.0 % Bladen % (Auto) 9.0 % Eos % (Auto) 1.8 % Baso % (Auto) 0.3 % Neut # (Auto) 3.8 (1.8-7.7) 10^3/u L Lymph # (Auto) 2.5 (0.8-4.8) 10^3/u L Bladen # (Auto) 0.6 (0.2-0.9) 10^3/u L Eos # (Auto) 0.1 (0.0-0.8) 10^3/u L Baso # (Auto) 0.0 (0.0-0.1) 10^3/u L Nucleated RBC % (a uto) 0 % Nucleated RBCs # 0.0 /100WBC Specimen Type Sample Site ABG pH (7.35-7.45) ABG pCO2 (35-45) mmHg ABG pO2 (80.0-100.0) mmH g ABG HCO3 (22-26) mmol/L ABG O2 Saturation ABG Base Excess (-2.0-2.0) mmol/ L Jose L Test A-a O2 Gradient (5-10) mmHg Hematocrit (37-47) % Hgb O2 Saturation (95-100) % Carboxyhemoglobin (0.4-20.1) %THgb Methemoglobin (0.4-1.5) % Total Hemoglobin (12-16) g/dL Ionized Calcium (1.1-1.4) mmol/L O2 Delivery Device FiO2 % Shower Doors And Panels Fabricator ID Sodium 124 L (136-145) mmol/L Potassium 3.7 (3.5-5.1) mmol/L Chloride 81 L (98-107) mmol/L Carbon Dioxide 20 L (22-29) mmol/L Anion Gap 26.7 H (5-19) BUN 8 (8-23) mg/dL Creatinine 1.0 H (0.5-0.9) mg/dL GFR Calculation 55.6 L (90-130) mL/min Glucose 407 H (65-115) mg/dL POC Glucose 384 (70-110) mg/dL Calculated Osmolal ity 271 L (285-295) mOsm/k g Calcium 8.9 (8.5-10.5) mg/dL Urine Color (Yellow) Urine Appearance (CLEAR) Urine pH (5-7) Ur Specific Gravit y (1.005-1.030) Urine Protein (Negative) Urine Glucose (UA) (Normal) Urine Ketones (Negative) Urine Occult Blood (Negative) Urine Nitrate (Negative) Urine Bilirubin (NEGATIVE) Urine Urobilinogen (Negative) mg/dL Ur Leukocyte Kiara ase (Negative) Serum Ketones (Negative) 05/02/19 05/02/19 05/02/19 Range/Units 06:40 07:10 07:24 WBC (4.0-10.0) 10^3/ uL RBC (4.1-5.3) 10^6/u L Hgb (11.5-15.3) g/dL Hct (37.0-47.0) % MCV (81-99) fL MCH (28.0-34.0) pg MCHC (30.0-36.0) g/dL RDW (12.1-15.1) % Plt Count (130-400) 10^3/c mm MPV (7.4-10.4) fL Neut % (Auto) % Lymph % (Auto) % Bladen % (Auto) % Eos % (Auto) % Baso % (Auto) % Neut # (Auto) (1.8-7.7) 10^3/u L Lymph # (Auto) (0.8-4.8) 10^3/u L Bladen # (Auto) (0.2-0.9) 10^3/u L Eos # (Auto) (0.0-0.8) 10^3/u L Baso # (Auto) (0.0-0.1) 10^3/u L Nucleated RBC % (a uto) % Nucleated RBCs # /100WBC Specimen Type Arterial Sample Site Radial, right ABG pH 7.42 (7.35-7.45) ABG pCO2 36.3 (35-45) mmHg ABG pO2 91.8 (80.0-100.0) mmH g ABG HCO3 23.3 (22-26) mmol/L ABG O2 Saturation 98.0 ABG Base Excess -0.9 (-2.0-2.0) mmol/ L Jose L Test Pos A-a O2 Gradient 11.9 H (5-10) mmHg Hematocrit 33.5 L (37-47) % Hgb O2 Saturation 92.3 L (95-100) % Carboxyhemoglobin 4.8 (0.4-20.1) %THgb Methemoglobin 1.0 (0.4-1.5) % Total Hemoglobin 10.9 L (12-16) g/dL Ionized Calcium 1.1 (1.1-1.4) mmol/L O2 Delivery Device Room air FiO2 21.0 % Sh[employer] Panels Fabricator ID broma Sodium 128.0 L (136-145) mmol/L Potassium 2.8 L (3.5-5.1) mmol/L Chloride (98-107) mmol/L Carbon Dioxide (22-29) mmol/L Anion Gap (5-19) BUN (8-23) mg/dL Creatinine (0.5-0.9) mg/dL GFR Calculation (90-130) mL/min Glucose 260.0 H (65-115) mg/dL POC Glucose 254 (70-110) mg/dL Calculated Osmolal ity (285-295) mOsm/k g Calcium (8.5-10.5) mg/dL Urine Color (Yellow) Urine Appearance (CLEAR) Urine pH (5-7) Ur Specific Gravit y (1.005-1.030) Urine Protein (Negative) Urine Glucose (UA) (Normal) Urine Ketones (Negative) Urine Occult Blood (Negative) Urine Nitrate (Negative) Urine Bilirubin (NEGATIVE) Urine Urobilinogen (Negative) mg/dL Ur Leukocyte Kiara ase (Negative) Serum Ketones Negative (Negative) 05/02/19 05/02/19 Range/Units 08:07 08:20 WBC (4.0-10.0) 10^3/ uL RBC (4.1-5.3) 10^6/u L Hgb (11.5-15.3) g/dL Hct (37.0-47.0) % MCV (81-99) fL MCH (28.0-34.0) pg MCHC (30.0-36.0) g/dL RDW (12.1-15.1) % Plt Count (130-400) 10^3/c mm MPV (7.4-10.4) fL Neut % (Auto) % Lymph % (Auto) % Bladen % (Auto) % Eos % (Auto) % Baso % (Auto) % Neut # (Auto) (1.8-7.7) 10^3/u L Lymph # (Auto) (0.8-4.8) 10^3/u L Bladen # (Auto) (0.2-0.9) 10^3/u L Eos # (Auto) (0.0-0.8) 10^3/u L Baso # (Auto) (0.0-0.1) 10^3/u L Nucleated RBC % (a uto) % Nucleated RBCs # /100WBC Specimen Type Sample Site ABG pH (7.35-7.45) ABG pCO2 (35-45) mmHg ABG pO2 (80.0-100.0) mmH g ABG HCO3 (22-26) mmol/L ABG O2 Saturation ABG Base Excess (-2.0-2.0) mmol/ L Jose L Test A-a O2 Gradient (5-10) mmHg Hematocrit (37-47) % Hgb O2 Saturation (95-100) % Carboxyhemoglobin (0.4-20.1) %THgb Methemoglobin (0.4-1.5) % Total Hemoglobin (12-16) g/dL Ionized Calcium (1.1-1.4) mmol/L O2 Delivery Device FiO2 % Sh[employer] And Panels Fabricator ID Sodium 125 L (136-145) mmol/L Potassium (3.5-5.1) mmol/L Chloride (98-107) mmol/L Carbon Dioxide (22-29) mmol/L Anion Gap (5-19) BUN (8-23) mg/dL Creatinine (0.5-0.9) mg/dL GFR Calculation (90-130) mL/min Glucose (65-115) mg/dL POC Glucose (70-110) mg/dL Calculated Osmolal ity (285-295) mOsm/k g Calcium (8.5-10.5) mg/dL Urine Color Straw (Yellow) Urine Appearance Clear (CLEAR) Urine pH 5.0 (5-7) Ur Specific Gravit y 1.005 (1.005-1.030) Urine Protein Neg (Negative) Urine Glucose (UA) 2+ (Normal) Urine Ketones Negative (Negative) Urine Occult Blood Neg (Negative) Urine Nitrate Negative (Negative) Urine Bilirubin Neg (NEGATIVE) Urine Urobilinogen Norm (Negative) mg/dL Ur Leukocyte Kiara ase Negative (Negative) Serum Ketones (Negative) Discharge Plan Discharge Patient Disposition: Home, Self-Care Clinical Impression: Acute hyperglycemia, Insulin dependent type 2 diabetes mellitus, Morbid obesity Condition: Stable Prescriptions: New Lantus U-100 Insulin 100 unit/mL solution 10 unit SUBCUT DAILY Qty: 10 RF: 0 No Action ondansetron HCl [Zofran] 4 mg tablet 4 mg PO Q6H PRN (Reason: nausea and vomiting) Qty: 30 RF: 0 ondansetron HCl [Zofran] 4 mg tablet 4 mg PO Q8H PRN (Reason: nausea and vomiting) Qty: 30 RF: 0 furosemide 40 mg Tablet 40 mg PO DAILY RF: 0 atorvastatin 80 mg Tablet 80 mg PO QPM RF: 0 thiamine HCl (vitamin B1) 100 mg Tablet 100 mg PO DAILY RF: 0 Aspir-81 81 mg Tablet,Delayed Release (Dr/Ec) 81 mg PO DAILY RF: 0 levothyroxine 75 mcg Tablet 75 mcg PO DAILY RF: 0 pantoprazole 40 mg Tablet,Delayed Release (Dr/Ec) 40 mg PO DAILY RF: 0 lidocaine 5 % Adhesive Patch,Medicated 1 patch TOPICAL DAILY RF: 0 metoprolol tartrate 50 mg Tablet 25 mg PO BID RF: 0 ferrous sulfate 325 mg (65 mg iron) Tablet,Delayed Release (Dr/Ec) 325 mg PO DAILY RF: 0 prednisone 10 mg Tablet 5 mg PO DAILY Qty: 30 RF: 0 Novolog Flexpen U-100 Insulin 100 unit/mL (3 mL) Insulin Pen See Rx Instructions .ROUTE .COMPLEX Qty: 0 RF: 0 acetaminophen 325 mg Tablet 650 mg PO Q4H PRN (Reason: Mild Pain Or Increase Temp) 30 Days Qty: 30 RF: 0 quetiapine 200 mg Tablet 50 mg PO BEDTIME Qty: 0 RF: 0 Effexor XR 150 mg Capsule,Extended Release 24hr 75 mg PO DAILY Qty: 0 RF: 0 Discharge Orders: Discharge Order (Routine); Ordered 05/02/19 Ordered By: Darek Barahona Referrals: Thu Flores FNP [Primary Care Provider] - Discharge Diet: Usual diet Discharge Activity: Increase activity as tolerated Patient Instructions: Diabetic Hyperglycemia (ED) Activity Restrictions/Additional Instructions: Follow-up with your blood sugar logs with your primary care provider in the next 4 to 5 days. Discharge Date/Time: 05/02/19 09:16 Coding Level of Care Code ED Chef Assistant for Padminig Fwd Exam Problem Focused
[2019-05-02 06:33] LABS: Glucose Point of Care 384 mg/dL (70-110)
[2019-05-02] MEDS: sodium chloride 0.9% 1,000 ML 999 ML IV (06:48)
[2019-05-02 06:49] LABS: Basophils % 0.3 %; Eosinophils # 0.1 10^3/uL (0.0-0.8); Eosinophils % 1.8 %; Hematocrit 34.3 % (37.0-47.0); Hemoglobin 11.2 g/dL (11.5-15.3); Lymphocytes # 2.5 10^3/uL (0.8-4.8); Mean Corpuscular HGB Conc 32.7 g/dL (30.0-36.0); Mean Corpuscular Hemoglobin 26.2 pg (28.0-34.0); Mean Corpuscular Volume 80.1 fL (81-99); Mean Platelet Volume 10.4 fL (7.4-10.4); Monocytes # 0.6 10^3/uL (0.2-0.9); Neutrophils # 3.8 10^3/uL (1.8-7.7); Neutrophils % 52.9 %; Nucleated Red Blood Cells % 0 %; Platelet Count 369 10^3/cmm (130-400); Red Blood Count 4.28 10^6/uL (4.1-5.3); Red Cell Distribution Width 16.5 % (12.1-15.1); White Blood Count 7.1 10^3/uL (4.0-10.0)
[2019-05-02] MEDS: insulin regular-human 100 units/1 mL 10 UNIT IVP (06:49)
[2019-05-02 06:53] LABS: Ketone (Acetest) Serum Negative (Negative)
[2019-05-02 07:05] LABS: Anion Gap 26.7 (5-19); Blood Urea Nitrogen 8 mg/dL (8-23); Calcium 8.9 mg/dL (8.5-10.5); Carbon Dioxide 20 mmol/L (22-29); Chloride 81 mmol/L (98-107); Glomerular Filtration Rate 55.6 mL/min (90-130); Glucose 407 mg/dL (65-115); Osmolality Calculated 271 mOsm/kg (285-295); Potassium 3.7 mmol/L (3.5-5.1); Sodium 124 mmol/L (136-145)
[2019-05-02 07:21] VITALS: BP 102/65; PULSE 82; RESP 18; O2SAT 92
[2019-05-02 07:22] LABS: ABG PCO2 36.3 mmHg (35-45); ABG PH Result 7.42 (7.35-7.45); Alveolar-Arterial Oxygen Gradi 11.9 mmHg (5-10); Arterial Blood Gas Hematocrit 33.5 % (37-47); Base Excess ABG -0.9 mmol/L (-2.0-2.0); Blood Gas Allen Test Pos; Blood Gas Sample Site Radial, right; Blood Gas Sample Type Arterial; Carboxyhemoglobin 4.8 %THgb (0.4-20.1); HCO3 ABG 23.3 mmol/L (22-26); HGB O2 Sat 92.3 % (95-100); Ionized Calcium Level - ABG 1.1 mmol/L (1.1-1.4); Oxygen Device ROOM AIR; PO2 ABG 91.8 mmHg (80.0-100.0); Potassium Level - ABG 2.8 mmol/L (3.5-5.0); Total Hemoglobin 10.9 g/dL (12-16)
[2019-05-02 07:27] LABS: Glucose Point of Care 254 mg/dL (70-110)
[2019-05-02] MEDS: insulin regular-human 100 units/1 mL 5 UNIT IVP (08:22)
[2019-05-02 08:23] LABS: Add Urine Microscopic? NO
[2019-05-02 08:25] VITALS: BP 123/69; PULSE 81; RESP 18; O2SAT 96
[2019-05-02 08:33] LABS: Bilirubin Urine Neg (NEGATIVE); Blood Urine Neg (Negative); Glucose Urine UA 2+ (Normal); Ketones Urine Negative (Negative); Leukocyte Esterase Urine Negative (Negative); Nitrate Urine Negative (Negative); Protein Urine Neg (Negative); Specific Gravity, Urine 1.005 (1.005-1.030); Urine Appearance Clear (CLEAR); Urine Color Straw (Yellow); Urobilinogen Urine Norm (Negative)
[2019-05-02 08:44] LABS: Sodium 125 mmol/L (136-145)
[2019-05-02 09:06] VITALS: BP 112/69; PULSE 80; RESP 18; O2SAT 93
== END 2019-05-02 09:16 | disposition home or self-care (01) ==
PROVIDERS: Emergency Provider Family Medicine; Family Provider Nurse Practitioner; PCP Nurse Practitioner
DX: E11.65 Type 2 diabetes mellitus with hyperglycemia (principal); Z79.4 Long term (current) use of insulin; E66.01 Morbid (severe) obesity due to excess calories; Z79.82 Long term (current) use of aspirin; E11.22 Type 2 diabetes mellitus with diabetic chronic kidney disease; I12.9 Hypertensive chronic kidney disease with stage 1 through stage 4 chronic kidney disease, or unspecified chronic kidney disease; N18.2 Chronic kidney disease, stage 2 (mild); K21.9 Gastro-esophageal reflux disease without esophagitis; E78.5 Hyperlipidemia, unspecified; E03.9 Hypothyroidism, unspecified; F17.210 Nicotine dependence, cigarettes, uncomplicated
CPT/HCPCS: 36415; 36416; 36600; 80048; 80051; 81003; 82009; 82810; 82962; 83986; 84295; 85025; 96360; 96361; 96374; 96375; 96376; 99283; A9270; J1815; J7030

== ENCOUNTER → 2019-05-10 13:57 | Outpatient (BNVA) | payer OTHER, SELFPAY | PROVIDERS: Family Provider Nurse Practitioner; PCP Nurse Practitioner; Visit Provider Nurse Practitioner | DX: F33.2 Major depressive disorder, recurrent severe without psychotic features (principal); F43.12 Post-traumatic stress disorder, chronic | CPT/HCPCS: 99214 ==

== ENCOUNTER 2019-05-11 15:00 | Outpatient (CLI) | payer OTHER, SELFPAY ==
--- NOTE | 2019-05-11 | CT_ITS ---
WS: [id number] CT LUMBAR SPINE, noncontrast. HISTORY: LOW BACK PAIN / PRE PAIN CONSULT TECHNIQUE: Contiguous 2.5 mm axial imaging are performed. Sagittal and coronal reformats are submitte d and reviewed. All CT scans at [facility] use at least one of these dose optimization te chniques: automated exposure control; mA and/or kV adjustment per patient size (includes targeted exa ms where dose is matched to clinical indication); or iterative reconstruction. IV contrast: None DLP: 2046.85 mGycm COMPARISON: None available. Severe degenerative disc space. Asymmetric disc space narrowing due to S-shaped curvature of the lumb ar spine. No fractures. Endplate osteophytes at all levels. L1-2: Diffuse osteophytic ridging. No significant stenosis. L2-3: Marked osteophytic ridging. Osteophytes extending greatest to the RIGHT and posteriorly over th e thecal sac. Osteophytes measure 12 mm which extend posteriorly causing significant deformity of the thecal sac, greatest on the RIGHT. Severe central, RIGHT subarticular recess and mild foraminal sten osis. L3-4: Diffuse asymmetric disc bulging with small osteophytes. Encroachment upon the ventral thecal sa c with facet joint arthropathy. Moderate bilateral foraminal stenosis. Small osteophyte encroaching u david the LEFT lateral thecal sac. L4-5: Diffuse annular disc bulging slightly asymmetric to the RIGHT. Mild osteophytic ridging. No os significant stenosis. L5-S1: Asymmetric disc bulging. Disc osteophyte extends to the RIGHT of midline into the foramen. Mil d RIGHT foraminal and subarticular recess stenosis. Heavy calcification within the abdominal aorta. No aneurysm. CT/CT lumbar spine wo con* [id number] IMPRESSION: 1. Severe degenerative disc disease with lumbar scoliosis and large hypertroph ic osteophytes throughout the lumbar spine. 2. Most significant hypertrophic bone encroachment is at the L2-3 level. Resul ting in severe central, RIGHT subarticular recess and mild RIGHT foraminal sten osis. 3. Moderate bilateral foraminal stenosis at L3-4 with a small osteophyte encro aching upon the LEFT lateral thecal sac.
== END 2019-05-11 15:01 | disposition home or self-care (01) ==
LOC: RADWPI 15:04
PROVIDERS: Family Provider Nurse Practitioner; PCP Nurse Practitioner; Visit Provider Nurse Practitioner
DX: M51.36 Other intervertebral disc degeneration, lumbar region (principal); M48.061 Spinal stenosis, lumbar region without neurogenic claudication; M41.86 Other forms of scoliosis, lumbar region
CPT/HCPCS: 72131

== ENCOUNTER → 2019-07-05 08:26 | Outpatient (BNVA) | payer OTHER, SELFPAY | PROVIDERS: Family Provider Nurse Practitioner; PCP Nurse Practitioner; Visit Provider Nurse Practitioner | DX: F33.2 Major depressive disorder, recurrent severe without psychotic features (principal); F43.12 Post-traumatic stress disorder, chronic; F31.81 Bipolar II disorder | CPT/HCPCS: 99213 ==

== ENCOUNTER 2019-07-06 16:27 | Outpatient (CLI) | payer OTHER, SELFPAY | END 2019-07-06 16:28 | disposition home or self-care (01) | LOC: LAB 16:28 | PROVIDERS: Family Provider Nurse Practitioner; PCP Nurse Practitioner; Visit Provider Surgery | DX: Z01.89 Encounter for other specified special examinations (principal) | CPT/HCPCS: 83630; 87177; 87209; 87493; 87506 ==

== ENCOUNTER 2019-08-03 13:36 | Inpatient (IN) | payer OTHER, SELFPAY ==
[2019-08-03] VITALS (9 sets, daily range): BP systolic 125–153; BP diastolic 57–108; PULSE 97–144; RESP 17–24; TEMP 36.4–36.8; O2SAT 95–100; BMI 31.8
--- NOTE | 2019-08-03 14:01 | ED_ITS ---
Documented by User: Darek Barahona DO 08/06/19 13:07 HPI - General Adult General: Chief complaint: Abdominal Pain Stated complaint: sickness Time Seen by Provider: 08/03/19 13:37 History of Present Illness: HPI narrative: 64 yo female. She presents with a complaint of abdominal pain that she said for 6 months has been worse over the last week she refers the pain to the periumbilical region. She denies having any fever. She has had some vomiting. She will have 3-4 episodes per day, she also have diarrhea daily although she cannot quantify it. She denies any hematochezia melena hematemesis or coffee-ground emesis. No other symptoms. She denies any chest pain or shortness of breath she denies any hematuria or bladder symptoms. She has had MRSA in the past. Associated symptoms: Reports nausea and vomiting; Deny chest pain, dyspnea, malaise or rash Review of Systems Const: Denies: fever(s), chills, body aches, change in appetite, fatigue or malaise ENMT: Denies: throat pain, ear or mastoid pain, nasal discharge or nasal congestion Card: Denies: chest pain, edema, dyspnea on exertion or orthopnea Resp: Denies: dyspnea, productive cough or non-productive cough GI: Reports: abdominal pain, nausea, vomiting and diarrhea; Denies: hematemesis, coffee ground emesis, constipation, bloating, hematochezia or melena : Denies: flank pain, difficulty voiding, dysuria, urinary frequency or urinary urgency Skin/Breast: Denies: rash or pruritus PFSH ED PFSH: Medical History Chronic back pain Chronic diarrhea CKD (chronic kidney disease), stage II Depression GERD (gastroesophageal reflux disease) Hyperlipidemia Hypertension Hypothyroidism 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, recurrent severe without psychotic features Morbid obesity Post-traumatic stress disorder, chronic Surgical History H/O esophagogastroduodenoscopy H/O: hysterectomy History of bunionectomy bilateral Hx of cholecystectomy Status post colonoscopy Family History Other CAD (coronary artery disease) Cancer Diabetes Hypertension Denies family history of Anesthesia complication Bleeding disorder Social History Smoking and tobacco status: current every day smoker cigars Cigars smoked per week: 28 Smoking risk assessment/counseling performed?: No Alcohol intake: current Alcohol intake frequency: 3 or more drinks per day Alcohol type: beer Household members: spouse Housing: House Marital status: Current occupational status: retired History of recent travel: No Physical Exam Const: COMMON NORMALS: no acute distress GENERAL APPEARANCE: cooperative and comfortable ORIENTATION/CONSCIOUSNESS: Yes awake, Yes oriented to person, Yes oriented to place and Yes oriented to time HENMT: COMMON NORMALS: normocephalic, atraumatic, hearing grossly normal bilaterally, external ears normal, EAC's normal, TM's normal bilaterally, Normal nasal mucous membranes and turbinates present, moist oral mucous membranes and oropharynx normal HEAD & SCALP: normocephalic and atraumatic NOSE: Normal nasal mucous membranes and turbinates present EXTERNAL EAR: Yes external ears normal EXTERNAL AUDITORY CANAL: EAC's normal TYMPANIC MEMBRANE: TM's normal bilaterally Eye: COMMON NORMALS: Equal, round and reactive pupils present, EOMs intact bilaterally, conjunctivae normal and no scleral icterus CONJUNCTIVA: Yes conjunctivae normal PUPIL: Yes Equal, round and reactive pupils present Neck/C-Spine: COMMON NORMALS: full ROM, no lymphadenopathy, supple and no JVD Lymph: LYMPHATIC: no lymphadenopathy noted and no lymphedema noted Resp: COMMON NORMALS: normal respiratory effort, No retractions, No use of accessory muscles and clear to auscultation bilaterally AUSCULTATION: clear to auscultation bilaterally Cardio: COMMON NORMALS: no JVD, regular rate, regular rhythm and No murmurs present (Cardio) RATE: regular rate RHYTHM: regular rhythm GI: COMMON NORMALS: Soft to palpation and No hepatosplenomegaly present AUSCULTATION: Yes normoactive bowel sounds PALPATION: Yes Soft to palpation, No Tenderness to palpation present (GI), No Guarding due to palpation present (GI) and Yes No hepatosplenomegaly present Extremity: COMMON NORMALS: normal to inspection, capillary refill normal, no clubbing, cyanosis or edema, no calf tenderness and no pedal edema Neuro: SENSORIUM/ORIENTATION: Yes oriented to person, Yes oriented to place and Yes oriented to time Skin: COMMON NORMALS: no rashes or lesions noted GENERAL SKIN EXAM: no rashes or lesions noted Course Vital Signs: Vital signs: Vital Signs Temperature 98.4 F 08/06/19 11:29 Pulse Rate 93 08/06/19 11:29 Respiratory Rate 22 H 08/06/19 11:29 Blood Pressure 153/87 08/06/19 11:29 Pulse Oximetry 99 08/06/19 11:29 MDM - General Adult MDM Narrative: Medical decision making narrative: Initial evaluation done patient care turned over to Dr. Garcia at change of shift Lab Data: Labs: Lab Results 08/03/19 08/03/19 08/03/19 Range/Units 14:58 17:05 17:20 WBC 13.4 H (4.0-10.0) 10^3/ uL RBC 4.45 (4.1-5.3) 10^6/u L Hgb 12.3 (11.5-15.3) g/dL Hct 37.0 (37.0-47.0) % MCV 83.1 (81-99) fL MCH 27.6 L (28.0-34.0) pg MCHC 33.2 (30.0-36.0) g/dL RDW 18.1 H (12.1-15.1) % Plt Count 496 H (130-400) 10^3/c mm MPV 9.2 (7.4-10.4) fL Neut % (Auto) 69.4 % Lymph % (Auto) 19.1 % [place] % (Auto) 9.8 % Eos % (Auto) 0.1 % Baso % (Auto) 0.4 % Neut # (Auto) 9.3 H (1.8-7.7) 10^3/u L Lymph # (Auto) 2.6 (0.8-4.8) 10^3/u L [place] # (Auto) 1.3 H (0.2-0.9) 10^3/u L Eos # (Auto) 0.0 (0.0-0.8) 10^3/u L Baso # (Auto) 0.1 (0.0-0.1) 10^3/u L Nucleated RBC % (a uto) 0 % Nucleated RBCs # 0.0 /100WBC Sodium (136-145) mmol/L Potassium (3.5-5.1) mmol/L Chloride (98-107) mmol/L Carbon Dioxide (22-29) mmol/L Anion Gap (5-19) BUN (8-23) mg/dL Creatinine (0.5-0.9) mg/dL GFR Calculation (90-130) mL/min Glucose (65-115) mg/dL Calculated Osmolal ity (285-295) mOsm/k g Lactate 1.5 (0.5-2.2) mmol/L Calcium (8.5-10.5) mg/dL Phosphorus (2.5-4.5) mg/dL Magnesium (1.7-2.3) mg/dL Total Bilirubin (0.15-1.2) mg/dL AST (0-32) U/L ALT (0-33) U/L Alkaline Phosphata se (35-105) IU/L Troponin T Baselin e (0-10) ng/mL Total Protein (6.6-8.7) g/dL Albumin (3.5-5.2) g/dL Globulin (1.3-4.6) g/dL Lipase (13-60) U/L TSH (0.27-4.20) uIU/ mL Random Cortisol (2.47-19.5) mcg/ dL Urine Color Yellow (Yellow) Urine Appearance Cloudy (CLEAR) Urine pH 5 (5-7) Ur Specific Gravit y 1.010 (1.005-1.030) Urine Protein Trace (Negative) Urine Glucose (UA) Norm (Normal) Urine Ketones 1+ H (Negative) Urine Blood Neg (Negative) Urine Nitrate Negative (Negative) Urine Bilirubin 1+ H (NEGATIVE) Urine Urobilinogen 1 H (Negative) mg/dL Ur Leukocyte Kiara ase 1+ H (Negative) Urine RBC 0-4 H (0-2) /hpf Urine WBC 40-55 H (0-5) /hpf Ur Squamous Epith Cells 10-15 H (0-5) Urine Bacteria 3+ H (NONE) Fine Granular Cast s 0-4 H /lpf Urine Mucus Trace 08/03/19 08/03/19 08/03/19 Range/Units 17:38 17:38 17:38 WBC (4.0-10.0) 10^3/ uL RBC (4.1-5.3) 10^6/u L Hgb (11.5-15.3) g/dL Hct (37.0-47.0) % MCV (81-99) fL MCH (28.0-34.0) pg MCHC (30.0-36.0) g/dL RDW (12.1-15.1) % Plt Count (130-400) 10^3/c mm MPV (7.4-10.4) fL Neut % (Auto) % Lymph % (Auto) % [place] % (Auto) % Eos % (Auto) % Baso % (Auto) % Neut # (Auto) (1.8-7.7) 10^3/u L Lymph # (Auto) (0.8-4.8) 10^3/u L [place] # (Auto) (0.2-0.9) 10^3/u L Eos # (Auto) (0.0-0.8) 10^3/u L Baso # (Auto) (0.0-0.1) 10^3/u L Nucleated RBC % (a uto) % Nucleated RBCs # /100WBC Sodium 130 L (136-145) mmol/L Potassium 2.2 L* (3.5-5.1) mmol/L Chloride 81 L (98-107) mmol/L Carbon Dioxide 32 H (22-29) mmol/L Anion Gap 19.2 H (5-19) BUN 20 (8-23) mg/dL Creatinine 1.1 H (0.5-0.9) mg/dL GFR Calculation 49.8 L (90-130) mL/min Glucose 166 H (65-115) mg/dL Calculated Osmolal ity 270 L (285-295) mOsm/k g Lactate (0.5-2.2) mmol/L Calcium 8.9 (8.5-10.5) mg/dL Phosphorus 2.8 (2.5-4.5) mg/dL Magnesium 1.4 L (1.7-2.3) mg/dL Total Bilirubin 0.4 (0.15-1.2) mg/dL AST 22 (0-32) U/L ALT 24 (0-33) U/L Alkaline Phosphata se 85 (35-105) IU/L Troponin T Baselin e (0-10) ng/mL Total Protein 7.4 (6.6-8.7) g/dL Albumin 4.0 (3.5-5.2) g/dL Globulin 3.4 (1.3-4.6) g/dL Lipase 16 (13-60) U/L TSH 2.77 (0.27-4.20) uIU/ mL Random Cortisol (2.47-19.5) mcg/ dL Urine Color (Yellow) Urine Appearance (CLEAR) Urine pH (5-7) Ur Specific Gravit y (1.005-1.030) Urine Protein (Negative) Urine Glucose (UA) (Normal) Urine Ketones (Negative) Urine Blood (Negative) Urine Nitrate (Negative) Urine Bilirubin (NEGATIVE) Urine Urobilinogen (Negative) mg/dL Ur Leukocyte Kiara ase (Negative) Urine RBC (0-2) /hpf Urine WBC (0-5) /hpf Ur Squamous Epith Cells (0-5) Urine Bacteria (NONE) Fine Granular Cast s /lpf Urine Mucus 08/03/19 08/03/19 Range/Units 17:38 17:38 WBC (4.0-10.0) 10^3/ uL RBC (4.1-5.3) 10^6/u L Hgb (11.5-15.3) g/dL Hct (37.0-47.0) % MCV (81-99) fL MCH (28.0-34.0) pg MCHC (30.0-36.0) g/dL RDW (12.1-15.1) % Plt Count (130-400) 10^3/c mm MPV (7.4-10.4) fL Neut % (Auto) % Lymph % (Auto) % [place] % (Auto) % Eos % (Auto) % Baso % (Auto) % Neut # (Auto) (1.8-7.7) 10^3/u L Lymph # (Auto) (0.8-4.8) 10^3/u L [place] # (Auto) (0.2-0.9) 10^3/u L Eos # (Auto) (0.0-0.8) 10^3/u L Baso # (Auto) (0.0-0.1) 10^3/u L Nucleated RBC % (a uto) % Nucleated RBCs # /100WBC Sodium (136-145) mmol/L Potassium (3.5-5.1) mmol/L Chloride (98-107) mmol/L Carbon Dioxide (22-29) mmol/L Anion Gap (5-19) BUN (8-23) mg/dL Creatinine (0.5-0.9) mg/dL GFR Calculation (90-130) mL/min Glucose (65-115) mg/dL Calculated Osmolal ity (285-295) mOsm/k g Lactate (0.5-2.2) mmol/L Calcium (8.5-10.5) mg/dL Phosphorus (2.5-4.5) mg/dL Magnesium (1.7-2.3) mg/dL Total Bilirubin (0.15-1.2) mg/dL AST (0-32) U/L ALT (0-33) U/L Alkaline Phosphata se (35-105) IU/L Troponin T Baselin e 20 H (0-10) ng/mL Total Protein (6.6-8.7) g/dL Albumin (3.5-5.2) g/dL Globulin (1.3-4.6) g/dL Lipase (13-60) U/L TSH (0.27-4.20) uIU/ mL Random Cortisol 20.24 H (2.47-19.5) mcg/ dL Urine Color (Yellow) Urine Appearance (CLEAR) Urine pH (5-7) Ur Specific Gravit y (1.005-1.030) Urine Protein (Negative) Urine Glucose (UA) (Normal) Urine Ketones (Negative) Urine Blood (Negative) Urine Nitrate (Negative) Urine Bilirubin (NEGATIVE) Urine Urobilinogen (Negative) mg/dL Ur Leukocyte Kiara ase (Negative) Urine RBC (0-2) /hpf Urine WBC (0-5) /hpf Ur Squamous Epith Cells (0-5) Urine Bacteria (NONE) Fine Granular Cast s /lpf Urine Mucus EKG Data^: EKG 1: Computer generated interpretation: Abdomen/Pelvis CT 08/03/19 14:13 IMPRESSION: Continued dilatation of the intra-and extrahepatic biliary tree which can be normal following cholecystectomy. Radiation Dose CTDIVOL = (mGy): DLP = 1232.36 (mGy-cm) Chest X-Ray 08/03/19 14:13 IMPRESSION: Partially calcified aorta. No pneumonia. Discharge Plan Discharge Patient Disposition: Admitted As Inpatient Admit Provider: Sammy Evans Clinical Impression: Hypokalemia Abdominal pain Qualifiers: Abdominal location: generalized Qualified Code(s): R10.84 - Generalized abdominal pain Condition: Stable Referrals: Thu Flores FNP [Primary Care Provider] - Discharge Date/Time: 08/03/19 19:56 Coding Level of Care Code ED Hotel Administrative Assistant for Chg Fwd Exam Comprehensive Documented by User: Melissa Garcia MD 08/03/19 19:42 HPI - General Adult General: Chief complaint: Abdominal Pain Stated complaint: sickness Time Seen by Provider: 08/03/19 13:37 PFSH ED PFSH: Medical History Chronic back pain Chronic diarrhea CKD (chronic kidney disease), stage II Depression GERD (gastroesophageal reflux disease) Hyperlipidemia Hypertension Hypothyroidism 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, recurrent severe without psychotic features Morbid obesity Post-traumatic stress disorder, chronic Surgical History H/O esophagogastroduodenoscopy H/O: hysterectomy History of bunionectomy bilateral Hx of cholecystectomy Status post colonoscopy Family History Other CAD (coronary artery disease) Cancer Diabetes Hypertension Denies family history of Anesthesia complication Bleeding disorder Social History Smoking and tobacco status: current every day smoker cigars Cigars smoked per week: 28 Smoking risk assessment/counseling performed?: No Alcohol intake: current Alcohol intake frequency: 3 or more drinks per day Alcohol type: beer Household members: spouse Housing: House Marital status: Current occupational status: retired History of recent travel: No Course Vital Signs: Vital signs: Vital Signs Temperature 98.4 F 08/06/19 11:29 Pulse Rate 93 08/06/19 11:29 Respiratory Rate 22 H 08/06/19 11:29 Blood Pressure 153/87 08/06/19 11:29 Pulse Oximetry 99 08/06/19 11:29 MDM - General Adult MDM Narrative: Medical decision making narrative: Patient presents here with abdominal pain along with generalized weakness. Patient is found to be quite hypokalemic with a potassium of 2.2. I spoke to Dr. Beltran and will admit for potassium replacement. Patient CT scan here showed no acute findings. Lab Data: Labs: Lab Results 08/03/19 08/03/19 08/03/19 Range/Units 14:58 17:05 17:20 WBC 13.4 H (4.0-10.0) 10^3/ uL RBC 4.45 (4.1-5.3) 10^6/u L Hgb 12.3 (11.5-15.3) g/dL Hct 37.0 (37.0-47.0) % MCV 83.1 (81-99) fL MCH 27.6 L (28.0-34.0) pg MCHC 33.2 (30.0-36.0) g/dL RDW 18.1 H (12.1-15.1) % Plt Count 496 H (130-400) 10^3/c mm MPV 9.2 (7.4-10.4) fL Neut % (Auto) 69.4 % Lymph % (Auto) 19.1 % [place] % (Auto) 9.8 % Eos % (Auto) 0.1 % Baso % (Auto) 0.4 % Neut # (Auto) 9.3 H (1.8-7.7) 10^3/u L Lymph # (Auto) 2.6 (0.8-4.8) 10^3/u L [place] # (Auto) 1.3 H (0.2-0.9) 10^3/u L Eos # (Auto) 0.0 (0.0-0.8) 10^3/u L Baso # (Auto) 0.1 (0.0-0.1) 10^3/u L Nucleated RBC % (a uto) 0 % Nucleated RBCs # 0.0 /100WBC Sodium (136-145) mmol/L Potassium (3.5-5.1) mmol/L Chloride (98-107) mmol/L Carbon Dioxide (22-29) mmol/L Anion Gap (5-19) BUN (8-23) mg/dL Creatinine (0.5-0.9) mg/dL GFR Calculation (90-130) mL/min Glucose (65-115) mg/dL Calculated Osmolal ity (285-295) mOsm/k g Lactate 1.5 (0.5-2.2) mmol/L Calcium (8.5-10.5) mg/dL Phosphorus (2.5-4.5) mg/dL Magnesium (1.7-2.3) mg/dL Total Bilirubin (0.15-1.2) mg/dL AST (0-32) U/L ALT (0-33) U/L Alkaline Phosphata se (35-105) IU/L Troponin T Baselin e (0-10) ng/mL Total Protein (6.6-8.7) g/dL Albumin (3.5-5.2) g/dL Globulin (1.3-4.6) g/dL Lipase (13-60) U/L TSH (0.27-4.20) uIU/ mL Random Cortisol (2.47-19.5) mcg/ dL Urine Color Yellow (Yellow) Urine Appearance Cloudy (CLEAR) Urine pH 5 (5-7) Ur Specific Gravit y 1.010 (1.005-1.030) Urine Protein Trace (Negative) Urine Glucose (UA) Norm (Normal) Urine Ketones 1+ H (Negative) Urine Blood Neg (Negative) Urine Nitrate Negative (Negative) Urine Bilirubin 1+ H (NEGATIVE) Urine Urobilinogen 1 H (Negative) mg/dL Ur Leukocyte Kiara ase 1+ H (Negative) Urine RBC 0-4 H (0-2) /hpf Urine WBC 40-55 H (0-5) /hpf Ur Squamous Epith Cells 10-15 H (0-5) Urine Bacteria 3+ H (NONE) Fine Granular Cast s 0-4 H /lpf Urine Mucus Trace 08/03/19 08/03/19 08/03/19 Range/Units 17:38 17:38 17:38 WBC (4.0-10.0) 10^3/ uL RBC (4.1-5.3) 10^6/u L Hgb (11.5-15.3) g/dL Hct (37.0-47.0) % MCV (81-99) fL MCH (28.0-34.0) pg MCHC (30.0-36.0) g/dL RDW (12.1-15.1) % Plt Count (130-400) 10^3/c mm MPV (7.4-10.4) fL Neut % (Auto) % Lymph % (Auto) % [place] % (Auto) % Eos % (Auto) % Baso % (Auto) % Neut # (Auto) (1.8-7.7) 10^3/u L Lymph # (Auto) (0.8-4.8) 10^3/u L [place] # (Auto) (0.2-0.9) 10^3/u L Eos # (Auto) (0.0-0.8) 10^3/u L Baso # (Auto) (0.0-0.1) 10^3/u L Nucleated RBC % (a uto) % Nucleated RBCs # /100WBC Sodium 130 L (136-145) mmol/L Potassium 2.2 L* (3.5-5.1) mmol/L Chloride 81 L (98-107) mmol/L Carbon Dioxide 32 H (22-29) mmol/L Anion Gap 19.2 H (5-19) BUN 20 (8-23) mg/dL Creatinine 1.1 H (0.5-0.9) mg/dL GFR Calculation 49.8 L (90-130) mL/min Glucose 166 H (65-115) mg/dL Calculated Osmolal ity 270 L (285-295) mOsm/k g Lactate (0.5-2.2) mmol/L Calcium 8.9 (8.5-10.5) mg/dL Phosphorus 2.8 (2.5-4.5) mg/dL Magnesium 1.4 L (1.7-2.3) mg/dL Total Bilirubin 0.4 (0.15-1.2) mg/dL AST 22 (0-32) U/L ALT 24 (0-33) U/L Alkaline Phosphata se 85 (35-105) IU/L Troponin T Baselin e (0-10) ng/mL Total Protein 7.4 (6.6-8.7) g/dL Albumin 4.0 (3.5-5.2) g/dL Globulin 3.4 (1.3-4.6) g/dL Lipase 16 (13-60) U/L TSH 2.77 (0.27-4.20) uIU/ mL Random Cortisol (2.47-19.5) mcg/ dL Urine Color (Yellow) Urine Appearance (CLEAR) Urine pH (5-7) Ur Specific Gravit y (1.005-1.030) Urine Protein (Negative) Urine Glucose (UA) (Normal) Urine Ketones (Negative) Urine Blood (Negative) Urine Nitrate (Negative) Urine Bilirubin (NEGATIVE) Urine Urobilinogen (Negative) mg/dL Ur Leukocyte Kiara ase (Negative) Urine RBC (0-2) /hpf Urine WBC (0-5) /hpf Ur Squamous Epith Cells (0-5) Urine Bacteria (NONE) Fine Granular Cast s /lpf Urine Mucus 08/03/19 08/03/19 Range/Units 17:38 17:38 WBC (4.0-10.0) 10^3/ uL RBC (4.1-5.3) 10^6/u L Hgb (11.5-15.3) g/dL Hct (37.0-47.0) % MCV (81-99) fL MCH (28.0-34.0) pg MCHC (30.0-36.0) g/dL RDW (12.1-15.1) % Plt Count (130-400) 10^3/c mm MPV (7.4-10.4) fL Neut % (Auto) % Lymph % (Auto) % [place] % (Auto) % Eos % (Auto) % Baso % (Auto) % Neut # (Auto) (1.8-7.7) 10^3/u L Lymph # (Auto) (0.8-4.8) 10^3/u L [place] # (Auto) (0.2-0.9) 10^3/u L Eos # (Auto) (0.0-0.8) 10^3/u L Baso # (Auto) (0.0-0.1) 10^3/u L Nucleated RBC % (a uto) % Nucleated RBCs # /100WBC Sodium (136-145) mmol/L Potassium (3.5-5.1) mmol/L Chloride (98-107) mmol/L Carbon Dioxide (22-29) mmol/L Anion Gap (5-19) BUN (8-23) mg/dL Creatinine (0.5-0.9) mg/dL GFR Calculation (90-130) mL/min Glucose (65-115) mg/dL Calculated Osmolal ity (285-295) mOsm/k g Lactate (0.5-2.2) mmol/L Calcium (8.5-10.5) mg/dL Phosphorus (2.5-4.5) mg/dL Magnesium (1.7-2.3) mg/dL Total Bilirubin (0.15-1.2) mg/dL AST (0-32) U/L ALT (0-33) U/L Alkaline Phosphata se (35-105) IU/L Troponin T Baselin e 20 H (0-10) ng/mL Total Protein (6.6-8.7) g/dL Albumin (3.5-5.2) g/dL Globulin (1.3-4.6) g/dL Lipase (13-60) U/L TSH (0.27-4.20) uIU/ mL Random Cortisol 20.24 H (2.47-19.5) mcg/ dL Urine Color (Yellow) Urine Appearance (CLEAR) Urine pH (5-7) Ur Specific Gravit y (1.005-1.030) Urine Protein (Negative) Urine Glucose (UA) (Normal) Urine Ketones (Negative) Urine Blood (Negative) Urine Nitrate (Negative) Urine Bilirubin (NEGATIVE) Urine Urobilinogen (Negative) mg/dL Ur Leukocyte Kiara ase (Negative) Urine RBC (0-2) /hpf Urine WBC (0-5) /hpf Ur Squamous Epith Cells (0-5) Urine Bacteria (NONE) Fine Granular Cast s /lpf Urine Mucus Imaging Data^: CT Abd/Pel: Attestation: I personally reviewed and interpreted this imaging study as follows: Radiologist's impression: Finalized Reason: abd pain [address] [id number] [address] Scan Report Signed Patient: Ingris Mendosa Unit #: [id number] : 1955 Age/Sex: 64 / F ADM Date: 08/03/19 Loc: ER Room/Bed: Attending Dr: Ordering Provider/Ordering MD: Darek Barahona DO Date of Service: 08/03/19 Procedure(s): CT abdomen pelvis w con* [id number] Accession Number(s): [id number] Report Number: [id number] PROCEDURE INFORMATION: Exam: CT Abdomen And Pelvis With Contrast Exam date and time: 08/03/2019 3:30 PM Age: 64 years old Clinical indication: Abdominal pain; Generalized; Prior surgery; Surgery type: Hysto, gb, stimulator; Additional info: Abd pain TECHNIQUE: Imaging protocol: Computed tomography of the abdomen and pelvis with intravenous contrast. Radiation optimization: All CT scans at this facility use at least one of these dose optimization techniques: automated exposure control; mA and/or kV adjustment per patient size (includes targeted exams where dose is matched to clinical indication); or iterative reconstruction. Contrast material: VISI 320; Contrast volume: 95 ml; Contrast route: IV; COMPARISON: CT abdomen pelvis w con* [id number] 03/17/2019 2:53 PM RADIATION DOSE METRICS: Total DLP: 1232.36 mGy-cm FINDINGS: Tubes, catheters and devices: Stable left-sided pain management/neurostimulator device in place. Liver: Normal. No mass. Gallbladder and bile ducts: Stable cholecystectomy. Continued dilatation of the intra-and extrahepatic biliary tree which can be normal following cholecystectomy. Pancreas: Normal. No ductal dilation. Spleen: Normal. No splenomegaly. Adrenals: Normal. No mass. Kidneys and ureters: Normal. No hydronephrosis. Stomach and bowel: Unremarkable. No obstruction. No mucosal thickening. Appendix: Normal appendix. Intraperitoneal space: Unremarkable. No free air. No significant fluid collection. Vasculature: Calcification of the abdominal aorta and/or iliac arteries consistent with atherosclerotic vessel disease. Lymph nodes: Unremarkable. No enlarged lymph nodes. Bladder: Unremarkable as visualized. Reproductive: Stable hysterectomy. Bones/joints: Moderate to severe multilevel spine degenerative changes including degenerative disc disease, spondylosis and facet degenerative changes. Soft tissues: Unremarkable. CT/CT abdomen pelvis w con* [id number] IMPRESSION: Continued dilatation of the intra-and extrahepatic biliary tree which can be normal following cholecystectomy. EKG Data^: EKG 1: Attestation: I personally reviewed and interpreted this EKG as follows: EKG interpretation date: 08/03/19 EKG interpretation time: 19:22 Interpretation: nsr hr [address] and t wave abnormalities Computer generated interpretation: Abdomen/Pelvis CT 08/03/19 14:13 IMPRESSION: Continued dilatation of the intra-and extrahepatic biliary tree which can be normal following cholecystectomy. Radiation Dose CTDIVOL = (mGy): DLP = 1232.36 (mGy-cm) Chest X-Ray 08/03/19 14:13
--- NOTE | 2019-08-03 14:13 | XR_ITS ---
WS: [id number] PORTABLE CHEST HISTORY: dyspnea/cough COMPARISON: 2018 Dorsal column stimulator projects over the mid thoracic spine. Lungs are clear and well expanded. No pleural effusion or pneumothorax. Cardiac size: Normal. Mediastinum/Aorta: Partially calcified aorta. No osseous abnormality seen. XR/XR chest 1V portable [id number] IMPRESSION: Partially calcified aorta. No pneumonia.
--- NOTE | 2019-08-03 14:13 | CTR_ITS ---
PROCEDURE INFORMATION: Exam: CT Abdomen And Pelvis With Contrast Exam date and time: 08/03/2019 3:30 PM Age: 64 years old Clinical indication: Abdominal pain; Generalized; Prior surgery; Surgery type: Hysto, gb, stimulator; Additional info: Abd pain TECHNIQUE: Imaging protocol: Computed tomography of the abdomen and pelvis with intravenous contrast. Radiation optimization: All CT scans at this facility use at least one of these dose optimization techniques: automated exposure control; mA and/or kV adjustment per patient size (includes targeted exams where dose is matched to clinical indication); or iterative reconstruction. Contrast material: VISI 320; Contrast volume: 95 ml; Contrast route: IV; COMPARISON: CT abdomen pelvis w con* [id number] 03/17/2019 2:53 PM RADIATION DOSE METRICS: Total DLP: 1232.36 mGy-cm FINDINGS: Tubes, catheters and devices: Stable left-sided pain management/neurostimulator device in place. Liver: Normal. No mass. Gallbladder and bile ducts: Stable cholecystectomy. Continued dilatation of the intra-and extrahepatic biliary tree which can be normal following cholecystectomy. Pancreas: Normal. No ductal dilation. Spleen: Normal. No splenomegaly. Adrenals: Normal. No mass. Kidneys and ureters: Normal. No hydronephrosis. Stomach and bowel: Unremarkable. No obstruction. No mucosal thickening. Appendix: Normal appendix. Intraperitoneal space: Unremarkable. No free air. No significant fluid collection. Vasculature: Calcification of the abdominal aorta and/or iliac arteries consistent with atherosclerotic vessel disease. Lymph nodes: Unremarkable. No enlarged lymph nodes. Bladder: Unremarkable as visualized. Reproductive: Stable hysterectomy. Bones/joints: Moderate to severe multilevel spine degenerative changes including degenerative disc disease, spondylosis and facet degenerative changes. Soft tissues: Unremarkable. CT/CT abdomen pelvis w con* [id number] IMPRESSION: Continued dilatation of the intra-and extrahepatic biliary tree which can be normal following cholecystectomy. Radiation Dose CTDIVOL = (mGy): DLP = 1232.36 (mGy-cm)
--- NOTE | 2019-08-03 14:28 | PC.NURSE ---
portable xray at bedside
[2019-08-03 15:05] LABS: Basophils # 0.1 10^3/uL (0.0-0.1); Basophils % 0.4 %; Eosinophils % 0.1 %; Hemoglobin 12.3 g/dL (11.5-15.3); Lymphocytes # 2.6 10^3/uL (0.8-4.8); Lymphocytes % 19.1 %; Mean Corpuscular HGB Conc 33.2 g/dL (30.0-36.0); Mean Corpuscular Hemoglobin 27.6 pg (28.0-34.0); Mean Corpuscular Volume 83.1 fL (81-99); Mean Platelet Volume 9.2 fL (7.4-10.4); Monocytes # 1.3 10^3/uL (0.2-0.9); Monocytes % 9.8 %; Neutrophils # 9.3 10^3/uL (1.8-7.7); Neutrophils % 69.4 %; Nucleated Red Blood Cells % 0 %; Platelet Count 496 10^3/cmm (130-400); Red Blood Count 4.45 10^6/uL (4.1-5.3); Red Cell Distribution Width 18.1 % (12.1-15.1); White Blood Count 13.4 10^3/uL (4.0-10.0)
--- NOTE | 2019-08-03 15:11 | PC.NURSE ---
nurse in room to give IV medications and pt had ripped IV out of wrist. Nursing staff unable to obtain another IV/larger IV. Per verbal order of Dr. Jun jaimes contacted for IV placement
[2019-08-03] MEDS: ondansetron 2 mg/ML SDV 2 mL 4 MG IVP (16:00)
[2019-08-03] MEDS: sodium chloride 0.9% 1,000 ML 999 ML IV (16:00)
[2019-08-03] MEDS: morphine 4 mg/mL SDV 1 mL IVP (16:00)
--- NOTE | 2019-08-03 17:12 | PC.NURSE ---
pt pulled out more of her IV catheter that was placed by anesthesia and IV fluid has infiltrated her left upper arm. ED provider notified.
[2019-08-03 17:21] LABS: Add Urine Microscopic? YES; Bilirubin Urine 1+ (NEGATIVE); Blood Urine Neg (Negative); Glucose Urine UA Norm (Normal); Ketones Urine 1+ (Negative); Leukocyte Esterase Urine 1+ (Negative); Nitrate Urine Negative (Negative); Protein Urine Trace (Negative); Urine Appearance Cloudy (CLEAR); Urine Color Yellow (Yellow); Urobilinogen Urine 1 mg/dL (Negative); pH Urine 5 (5-7)
[2019-08-03 17:40] LABS: Lactate (Lactic Acid level) 1.5 mmol/L (0.5-2.2)
[2019-08-03 17:43] LABS: RBC Urine 0-4 /hpf (0-2); WBC Urine 40-55 /hpf (0-5)
[2019-08-03 17:44] LABS: Add Urine Culture? Yes; Bacteria Urine 3+; Fine Granular Casts Urine 0-4 /lpf; Mucus Urine TRACE
[2019-08-03 18:10] LABS: Alanine Aminotransferase 24 U/L (0-33); Alkaline Phosphatase 85 IU/L (35-105); Anion Gap 19.2 (5-19); Aspartate Amino Transferase 22 U/L (0-32); Blood Urea Nitrogen 20 mg/dL (8-23); Calcium 8.9 mg/dL (8.5-10.5); Carbon Dioxide 32 mmol/L (22-29); Chloride 81 mmol/L (98-107); Globulin 3.4 g/dL (1.3-4.6); Glomerular Filtration Rate 49.8 mL/min (90-130); Glucose 166 mg/dL (65-115); Lipase 16 U/L (13-60); Osmolality Calculated 270 mOsm/kg (285-295); Sodium 130 mmol/L (136-145); Total Bilirubin 0.4 mg/dL (0.15-1.2); Total Protein 7.4 g/dL (6.6-8.7)
[2019-08-03 18:12] LABS: Potassium 2.2 mmol/L (3.5-5.1)
--- NOTE | 2019-08-03 18:25 | PC.NURSE ---
PT TO CT BY STRETCHER BY TECH
[2019-08-03] MEDS: iodixanol 320 mg/mL 100mL Btl IV (18:31)
--- NOTE | 2019-08-03 18:58 | ECG_ITS ---
Measurements Intervals [place] Rate: 99 P: 4 OK: 133 QRS: 45 QRSD: 85 T: 76 QT: 359 QTc: 463 SINUS RHYTHM POSSIBLE LEFT ATRIAL ENLARGEMENT [-0.1mV P WAVE IN V1/V2] NONSPECIFIC ST & T-WAVE ABNORMALITY Compared to ECG 04/13/2019 04:16:45 No significant changes Electronically Signed On 08-03-2019 20:34:10 CDT by Quinton Vital M.D. [id number]
--- NOTE | 2019-08-03 19:08 | PC.NURSE ---
Report Received from DEBRA Akins and care transferred to DEBRA Lin
--- NOTE | 2019-08-03 19:49 | PC.NURSE ---
REPORT CALLED AT 193, ROOM NOT READY FOR PATIENT DUE TO BEING DIRTY
--- NOTE | 2019-08-03 20:10 | ECG_ITS ---
Measurements Intervals [place] Rate: 91 P: 39 NM: 138 QRS: 45 QRSD: 80 T: 75 QT: 372 QTc: 460 SINUS RHYTHM WITH SINUS ARRHYTHMIA LOW QRS VOLTAGE IN PRECORDIAL LEADS [QRS DEFLECTION < 1.0 mV IN CHEST LEADS] NONSPECIFIC ST & T-WAVE ABNORMALITY INTERPRETATION BASED ON A DEFAULT AGE OF 40 YEARS Compared to ECG 08/03/2019 19:22:47 Low QRS voltage now present T-wave abnormality still present Electronically Signed On 08-04-2019 11:48:12 CDT by Anthony Wilson M.D. [id number]
--- NOTE | 2019-08-03 20:17 | PM.HP ---
Providers/Chief Complaint Admitting Physician: Sammy Evans Primary Care Provider: KATRINA Cash Chief Complaint: sickness History of Present Illness Ingris Mendosa is a 64 year old female with significant past medical history of diabetes, hypertension, alcohol abuse, hypothyroidism, adrenal insufficiency who presented to emergency room with complaints of generalized abdominal pain, nausea and vomiting, diarrhea. She reports that her symptoms are present for the last 6 months or so. However it became worse gradually over last couple of weeks. She has hard time specifying how many episodes of diarrhea and vomiting she has daily. She reports similar episodes in the past. She states that no work-up was done for her complaints before. The pain is moderate in intensity crampy. She denies any modifying factors. She denies hematochezia, black stool, or hematemesis. She denies associated fevers or chills. She reports dysuria. She has history of adrenal insufficiency. According to her med rec she is supposed to be on prednisone. However she states that she does not take this medication currently. She reports drinking alcohol every day. Her last drink was yesterday. She reports consuming hard liquor. She denies anxiety or tremors today. The patient denies chest pain, shortness of breath, cough, palpitations, dizziness, focal weakness or sensory loss. She has dystonic movements of her lips. She reports that this is an older symptom. Review of Systems General: Reports: 10 or more systems reviewed and unremarkable except in HPI and below Medications/Allergies Home Medications Medication Instructions Recorded Confirmed Last Taken Type aspirin [Aspir-81] 81 mg PO DAILY 04/09/19 08/03/19 Unknown History atorvastatin 80 mg PO QPM 04/09/19 08/03/19 Unknown History ferrous sulfate 325 mg PO DAILY 04/09/19 08/03/19 Unknown History furosemide 40 mg PO DAILY 04/09/19 08/03/19 Unknown History levothyroxine 75 mcg PO DAILY 04/09/19 08/03/19 Unknown History lidocaine 1 patch TOPICAL DAILY 04/09/19 08/03/19 Unknown History metoprolol tartrate 25 mg PO BID 04/09/19 08/03/19 Unknown History pantoprazole 40 mg PO DAILY 04/09/19 08/03/19 Unknown History thiamine HCl (vitamin B1) 100 mg PO DAILY 04/09/19 08/03/19 Unknown History insulin aspart U-100 [Novolog See Rx Instructions .ROUTE 04/10/19 08/03/19 Unknown Rx Flexpen U-100 Insulin] .COMPLEX #0 ml prednisone 5 mg PO DAILY #30 tab 04/10/19 08/03/19 Unknown Rx ondansetron HCl 4 mg tablet 4 mg PO Q8H PRN #30 tab 04/29/19 08/03/19 Unknown Rx insulin glargine [Lantus U-100 10 unit SUBCUT DAILY #10 ml 05/02/19 08/03/19 Unknown Rx Insulin] hydroxyzine pamoate 50 mg capsule 50 mg PO .HS #60 cap 07/05/19 08/03/19 Unknown Rx venlafaxine 150 mg 150 mg PO DAILY #30 cap 07/05/19 08/03/19 Unknown Rx capsule,extended release 24 hr venlafaxine 37.5 mg 37.5 mg PO DAILY #30 cap 07/05/19 08/03/19 Unknown Rx capsule,extended release 24 hr Seroquel 50 mg PO BEDTIME 08/03/19 08/03/19 Unknown History clonazepam 0.5 mg PO TID PRN 08/03/19 08/03/19 Unknown History Allergies Allergy/AdvReac Type Severity Reaction Status Date / Time [facility] Allergy Severe ALGY-Hives Verified 07/05/19 09:25 PFSH Acute PFSH: Medical History Chronic back pain Chronic diarrhea CKD (chronic kidney disease), stage II Depression GERD (gastroesophageal reflux disease) Hyperlipidemia Hypertension Hypothyroidism 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, recurrent severe without psychotic features Morbid obesity Post-traumatic stress disorder, chronic Surgical History H/O esophagogastroduodenoscopy H/O: hysterectomy History of bunionectomy bilateral Hx of cholecystectomy Status post colonoscopy Family History Other CAD (coronary artery disease) Cancer Diabetes Hypertension Denies family history of Anesthesia complication Bleeding disorder Social History Smoking and tobacco status: current every day smoker cigars Cigars smoked per week: 28 Smoking risk assessment/counseling performed?: No Alcohol intake: current Alcohol intake frequency: 3 or more drinks per day Alcohol type: beer Household members: spouse Housing: House Marital status: Current occupational status: retired History of recent travel: No Vitals/I&O/Wt Last Vital Signs Temp 98.3 F 08/03/19 13:53 Pulse 144 H 08/03/19 19:51 Resp 18 08/03/19 19:51 BP 135/94 08/03/19 19:51 Pulse Ox 99 08/03/19 19:51 08/03/19 08/03/19 08/03/19 06:59 14:59 22:59 Intake Total 1000 / 1000 Balance 1000 / 1000 Weight last 48 hrs Weight 81.647 kg Physical Exam Narrative: EXAM NARRATIVE: The patient has very disheveled and tired look. She looks older than her stated age. Awake and alert. Oriented x4. No acute distress. Responses are adequate. Skin is warm and dry. Dry mucous membranes Dystonic movements of the lips and tongue. Clear throat. Neck is supple, no JVD. Lungs clear bilaterally. No respiratory distress Heart S1, S2, regular tachycardia Abdomen is obese, soft, tender diffusely, however more prominent tenderness in the suprapubic area. No CVA tenderness. No guarding. Bowel sounds are present Extremities trace edema. No cyanosis or calf tenderness bilaterally. No tremors. No facial asymmetry. Moves all extremities. Eyes PERRLA, extraocular muscles intact. Data : 08/03/19 14:58 08/03/19 17:38 Other Labs: Laboratory Results WBC 13.4 10^3/uL (4.0-10.0) H 08/03/19 14:58 RBC 4.45 10^6/uL (4.1-5.3) 08/03/19 14:58 Hgb 12.3 g/dL (11.5-15.3) 08/03/19 14:58 Hct 37.0 % (37.0-47.0) 08/03/19 14:58 MCV 83.1 fL (81-99) 08/03/19 14:58 MCH 27.6 pg (28.0-34.0) L 08/03/19 14:58 MCHC 33.2 g/dL (30.0-36.0) 08/03/19 14:58 RDW 18.1 % (12.1-15.1) H 08/03/19 14:58 Plt Count 496 10^3/cmm (130-400) H 08/03/19 14:58 MPV 9.2 fL (7.4-10.4) 08/03/19 14:58 Neut % (Auto) 69.4 % 08/03/19 14:58 Lymph % (Auto) 19.1 % 08/03/19 14:58 [place] % (Auto) 9.8 % 08/03/19 14:58 Eos % (Auto) 0.1 % 08/03/19 14:58 Baso % (Auto) 0.4 % 08/03/19 14:58 Neut # (Auto) 9.3 10^3/uL (1.8-7.7) H 08/03/19 14:58 Lymph # (Auto) 2.6 10^3/uL (0.8-4.8) 08/03/19 14:58 [place] # (Auto) 1.3 10^3/uL (0.2-0.9) H 08/03/19 14:58 Eos # (Auto) 0.0 10^3/uL (0.0-0.8) 08/03/19 14:58 Baso # (Auto) 0.1 10^3/uL (0.0-0.1) 08/03/19 14:58 Nucleated RBC % (auto) 0 % 08/03/19 14:58 Nucleated RBCs # 0.0 /100WBC 08/03/19 14:58 Sodium 130 mmol/L (136-145) L 08/03/19 17:38 Potassium 2.2 mmol/L (3.5-5.1) L* 08/03/19 17:38 Chloride 81 mmol/L (98-107) L 08/03/19 17:38 Carbon Dioxide 32 mmol/L (22-29) H 08/03/19 17:38 Anion Gap 19.2 (5-19) H 08/03/19 17:38 BUN 20 mg/dL (8-23) 08/03/19 17:38 Creatinine 1.1 mg/dL (0.5-0.9) H 08/03/19 17:38 GFR Calculation 49.8 mL/min (90-130) L 08/03/19 17:38 Glucose 166 mg/dL (65-115) H 08/03/19 17:38 Calculated Osmolality 270 mOsm/kg (285-295) L 08/03/19 17:38 Lactate 1.5 mmol/L (0.5-2.2) 08/03/19 17:20 Calcium 8.9 mg/dL (8.5-10.5) 08/03/19 17:38 Total Bilirubin 0.4 mg/dL (0.15-1.2) 08/03/19 17:38 AST 22 U/L (0-32) 08/03/19 17:38 ALT 24 U/L (0-33) 08/03/19 17:38 Alkaline Phosphatase 85 IU/L (35-105) 08/03/19 17:38 Total Protein 7.4 g/dL (6.6-8.7) 08/03/19 17:38 Albumin 4.0 g/dL (3.5-5.2) 08/03/19 17:38 Globulin 3.4 g/dL (1.3-4.6) 08/03/19 17:38 Lipase 16 U/L (13-60) 08/03/19 17:38 Urine Color Yellow (Yellow) 08/03/19 17:05 Urine Appearance Cloudy (CLEAR) 08/03/19 17:05 Urine pH 5 (5-7) 08/03/19 17:05 Ur Specific [place] 1.010 (1.005-1.030) 08/03/19 17:05 Urine Protein Trace (Negative) 08/03/19 17:05 Urine Glucose (UA) Norm (Normal) 08/03/19 17:05 Urine Ketones 1+ (Negative) H 08/03/19 17:05 Urine Blood Neg (Negative) 08/03/19 17:05 Urine Nitrate Negative (Negative) 08/03/19 17:05 Urine Bilirubin 1+ (NEGATIVE) H 08/03/19 17:05 Urine Urobilinogen 1 mg/dL (Negative) H 08/03/19 17:05 Ur Leukocyte Esterase 1+ (Negative) H 08/03/19 17:05 Urine RBC 0-4 /hpf (0-2) H 08/03/19 17:05 Urine WBC 40-55 /hpf (0-5) H 08/03/19 17:05 Ur Squamous Epith Cells 10-15 (0-5) H 08/03/19 17:05 Urine Bacteria 3+ (NONE) H 08/03/19 17:05 Fine Granular Casts 0-4 /lpf H 08/03/19 17:05 Urine Mucus Trace 08/03/19 17:05 Impressions Abdomen/Pelvis CT 08/03/19 14:13 IMPRESSION: Continued dilatation of the intra-and extrahepatic biliary tree which can be normal following cholecystectomy. Radiation Dose CTDIVOL = (mGy): DLP = 1232.36 (mGy-cm) Chest X-Ray 08/03/19 14:13 IMPRESSION: Partially calcified aorta. No pneumonia. A&P Additional A&P Information This is a 64-year-old female with past medical history of alcohol, diabetes, hypertension, GERD, possible psychiatric illness, hypothyroidism, adrenal insufficiency who is presenting with generalized abdominal pain, reported vomiting and diarrhea which was present for last 6 months with worsening over last couple of weeks. The patient is found to have evidence of dehydration, acute kidney injury, hypokalemia. Differential includes UTI, acute adrenal insufficiency, alcohol withdrawal, gastroparesis due to uncontrolled diabetes. Sepsis with urinary tract infection. Cultures ordered in ER. Hemodynamically stable. Being admitted to [facility]. Will receive IV fluids and IV Rocephin. Diarrhea. Could be secondary to sepsis and urinary tract infection. However according to their report it is more chronic. I will check C. difficile, fecal leukocytes, culture, and ova and parasites. History of alcohol and possible withdrawal symptoms. We will start her on Librium and CIWA protocol. Will receive banana bag daily and vitamin replacement. Severe dehydration and mild acute kidney injury probably secondary to above. We will hydrate and monitor renal function. Hyponatremia. Probably secondary to dehydration. Management with IV fluids. Will monitor and adjust treatments. Additional testing might be necessary if it persists. Hypokalemia, severe. Probably secondary to GI complaints. Received 40 M EQ's in ER. We will recheck her chemistry panel and consider additional replacement. Also will check her magnesium level. Possible adrenal insufficiency. Will check random cortisol level and start dexamethasone IV. History of hypothyroidism. We will check her TSH. History of diabetes. Will check her A1c level. Will use insulin for now. Will adjust the maintenance treatments during this hospitalization. Possible gastroparesis. Due to her extrapyramidal symptoms I cannot order Reglan. We will try to manage her vomiting with Zofran. Might need additional referral and GI evaluation after discharge. Extrapyramidal symptoms probably secondary to Seroquel. I will hold this medication for now. Will require outpatient monitoring after discharge which can be done through the primary care physician or neurology evaluation. Abnormal EKG. EKG showed nonspecific T wave changes. I will order serial troponins. Hypertension. Currently stable. Will review her home medications and resume them if there are no specific contraindications. Will use as needed labetalol for excessive blood pressure elevation. DVT prophylaxis. Heparin. CODE STATUS. The patient wants to be full code. The plan of care was discussed with the patient. She verbalized understanding and agreement. Attestations Medical Necessity Statement*: The plan of care requires inpatient hospitalization. It is expected that she will spend more than 2 midnights in the hospital. Coding Level of Care Code Acute Farm Management Teacher for Navid Simons
[2019-08-03] MEDS: sodium chlor 0.9% + KCl 20 mEq 20 MEQ/1,000 ML BAG 100 MEQ IV (20:43)
[2019-08-03] MEDS: dexamethasone 4 mg/mL INJ IVP (20:43)
[2019-08-03] MEDS: chlordiazePOXIDE 10 mg Capsule 20 MG PO (20:43)
[2019-08-03] MEDS: cefTRIAXone 1,000 MG in sodium chloride 0.9% (plus) 50 ML 100 MG IV (20:44)
[2019-08-03] MEDS: heparin 5,000 unit/mL INJ 1 mL 5000 UNIT SUBCUT (20:44)
[2019-08-03 21:11] LABS: Magnesium 1.4 mg/dL (1.7-2.3); Phosphorus 2.8 mg/dL (2.5-4.5)
[2019-08-03 21:13] LABS: Troponin(5th) Baseline 20 ng/mL (0-10)
[2019-08-03 21:20] LABS: Thyroid Stimulating Hormone 2.77 uIU/mL (0.27-4.20)
[2019-08-03 21:21] LABS: Cortisol Random 20.24 mcg/dL (2.47-19.5)
[2019-08-03 21:58] LABS: Glucose Point of Care 154 mg/dL (70-110)
--- NOTE | 2019-08-03 22:10 | ECG_ITS ---
Measurements Intervals [place] Rate: 92 P: -11 ID: 132 QRS: 50 QRSD: 85 T: 79 QT: 365 QTc: 453 SINUS RHYTHM LOW QRS VOLTAGE IN PRECORDIAL LEADS [QRS DEFLECTION < 1.0 mV IN CHEST LEADS] NONSPECIFIC ST & T-WAVE ABNORMALITY INTERPRETATION BASED ON A DEFAULT AGE OF 40 YEARS Compared to ECG 08/03/2019 19:22:47 Low QRS voltage now present T-wave abnormality still present Electronically Signed On 08-04-2019 11:49:10 CDT by Anthony Wilson M.D. [id number]
[2019-08-03] MEDS: folic acid 1 MG, multivitamin inj 10 ML, thiamine 100 MG in sodium chloride 0.9% 1,000 ML IV (22:27)
[2019-08-04] VITALS (9 sets, daily range): BP systolic 134–166; BP diastolic 70–98; PULSE 82–105; RESP 18–20; TEMP 36.6–37.2; O2SAT 92–100
[2019-08-04] MEDS: LORazepam 2 mg/mL INJ 1 mL 1 MG IVP ×3 (01:36→18:30)
--- NOTE | 2019-08-04 02:10 | ECG_ITS ---
Measurements Intervals [place] Rate: 103 P: 54 DE: 167 QRS: 42 QRSD: 83 T: 99 QT: 275 QTc: 360 SINUS TACHYCARDIA POSSIBLE LEFT ATRIAL ENLARGEMENT [-0.1mV P WAVE IN V1/V2] LOW QRS VOLTAGE IN PRECORDIAL LEADS [QRS DEFLECTION < 1.0 mV IN CHEST LEADS] NONSPECIFIC ST & T-WAVE ABNORMALITY ABNORMAL RHYTHM ECG INTERPRETATION BASED ON A DEFAULT AGE OF 40 YEARS Compared to ECG 08/03/2019 19:22:47 Low QRS voltage now present Sinus rhythm no longer present T-wave abnormality still present Electronically Signed On 08-04-2019 11:49:35 CDT by Anthony Wilson M.D. [id number]
[2019-08-04] MEDS: heparin 5,000 unit/mL INJ 1 mL 5000 UNIT SUBCUT ×3 (04:57→20:09)
[2019-08-04] MEDS: chlordiazePOXIDE 10 mg Capsule 20 MG PO ×3 (04:57→20:09)
[2019-08-04] MEDS: morphine 4 mg/mL SDV 1 mL 2 MG IVP (05:19)
[2019-08-04 05:29] LABS: Basophils % 0.2 %; Eosinophils % 0.1 %; Hematocrit 32.8 % (37.0-47.0); Hemoglobin 10.7 g/dL (11.5-15.3); Lymphocytes % 15.7 %; Mean Corpuscular HGB Conc 32.6 g/dL (30.0-36.0); Mean Corpuscular Hemoglobin 28.5 pg (28.0-34.0); Mean Corpuscular Volume 87.5 fL (81-99); Mean Platelet Volume 8.4 fL (7.4-10.4); Monocytes # 0.9 10^3/uL (0.2-0.9); Monocytes % 6.7 %; Neutrophils # 9.8 10^3/uL (1.8-7.7); Nucleated Red Blood Cells % 0 %; Platelet Count 524 10^3/cmm (130-400); Red Blood Count 3.75 10^6/uL (4.1-5.3); Red Cell Distribution Width 18.6 % (12.1-15.1); White Blood Count 12.9 10^3/uL (4.0-10.0)
[2019-08-04 05:46] LABS: Estmated Average Glucose 160; Hemoglobin A1C 7.2 % (4.0-6.0)
[2019-08-04 05:56] LABS: Procalcitonin 0.16 ng/mL (0-0.5)
[2019-08-04 06:07] LABS: Anion Gap 20.7 (5-19); Blood Urea Nitrogen 17 mg/dL (8-23); Carbon Dioxide 28 mmol/L (22-29); Chloride 83 mmol/L (98-107); Glomerular Filtration Rate 62.8 mL/min (90-130); Glucose 139 mg/dL (65-115); Magnesium 1.4 mg/dL (1.7-2.3); Osmolality Calculated 267 mOsm/kg (285-295); Sodium 129 mmol/L (136-145)
[2019-08-04 06:42] LABS: Potassium 2.7 mmol/L (3.5-5.1)
[2019-08-04 06:43] LABS: Glucose Point of Care 138 mg/dL (70-110)
[2019-08-04] MEDS: folic acid 1 mg Tablet PO (08:48)
[2019-08-04] MEDS: aspirin 81 mg EC Tablet PO (08:48)
[2019-08-04] MEDS: levothyroxine 150 mcg Tablet 75 MCG PO (08:49)
[2019-08-04] MEDS: metoprolol tartrate 25 mg Tablet PO ×2 (08:49→17:49)
[2019-08-04] MEDS: predniSONE 10 mg Tablet 5 MG PO (08:50)
[2019-08-04] MEDS: lidocaine 5% Patch 1 PATCH TOPICAL (08:51)
[2019-08-04] MEDS: pantoprazole DR 40 mg Tablet PO (08:51)
--- NOTE | 2019-08-04 11:02 | P.PN_ITS ---
Subjective Subjective: Interval history: History and physical reviewed. Patient denied any complaints when I saw her. She asked for some coffee. Medications: Reviewed: Yes Vitals/I&O/Wt Last Vital Signs Temp 98.9 F 08/04/19 07:25 Pulse 105 H 08/04/19 08:07 Resp 20 H 08/04/19 07:25 BP 161/98 08/04/19 07:25 Pulse Ox 99 08/04/19 08:07 08/03/19 08/04/19 08/04/19 22:59 06:59 14:59 Intake Total 1178.333 / 1178.333 120 / 120 Balance 1178.333 / 1178.333 120 / 120 Weight last 48 hrs Weight 81.647 kg Physical Exam Narrative: EXAM NARRATIVE: General exam no apparent distress Cardiovascular regular rate and rhythm without murmur Lungs clear no wheezing or crackles Abdomen is soft with positive bowel sounds. Perhaps slight tenderness right mid quadrant Extremities no cyanosis clubbing or edema Data : 08/04/19 05:15 08/04/19 05:15 A&P Assessment and plan (1) Abdominal pain: Patient with less significant complaints currently. Had complained of diarrhea and vomiting as well. She has had C. difficile in the past, and stool studies are pending. Currently from my understanding she has not had a bowel movement in the hospital. Status: Acute Qualifiers: Abdominal location: generalized Qualified Code(s): R10.84 - Generalized abdominal pain (2) Chronic diarrhea: See above Status: Acute (3) Hypokalemia: Supplemented IV this morning Status: Acute (4) Hyponatremia: Appears stable. Likely secondary to alcoholism. Cortisol level normal. Status: Acute (5) Hypomagnesemia: Will supplement IV Status: Acute (6) UTI (urinary tract infection): Continue Rocephin, await culture Status: Acute (7) Sepsis: No evidence of sepsis currently Status: Acute (8) Acute kidney injury: Improving Status: Acute (9) Alcohol withdrawal: Placed on Librium Continue CIWA protocol Status: Acute Additional A&P Information Type 2 diabetes. Continue sliding scale insulin History of adrenal insufficiency. Continue home prednisone Hypothyroidism, TSH checked and normal History of abnormal EKG, troponin without significant delta Hypertension, last blood pressure 136/74 Full code DVT prophylaxis with heparin Attestations Medical Necessity Statement*: Needs continued hospital stay for close follow- up of alcohol withdrawal with associated electrolyte abnormalities Coding Level of Care Code Acute Hand Bunch Maker for Chg Fwd Diagnoses Abdominal pain R10.84 Abdominal location: generalized Chronic diarrhea K52.9 Hypokalemia E87.6 Hyponatremia E87.1 Hypomagnesemia E83.42 UTI (urinary tract infection) N39.0 Sepsis A41.9 Acute kidney injury N17.9 Alcohol withdrawal F10.239
--- NOTE | 2019-08-04 11:31 | PC.CHAP ---
Pastoral Care Encounter/Spiritual Assessment Type of Contact [x] Declined commercial escrow officer visit [] Patient/Family/Request visit [] Outpatient visit [] Follow-up visit [] Physician referral [] Code/Alert [] Routine visit [] Staff referral [] Actively dying [] Patient sleeping [] Family support [] [] Out of room [] Palliative care [] [] Receiving care in room [] Pre-surgical visit [] Trauma [] Long length of stay [] ICU visit [] Other: Relational/Emotional Strength [] Patient feels connected with others/family/visitors/staff [] Distress [] Loneliness/isolation [] Abandonment Spirituality of Patient [] Person of [place] [] Attends Oriental Orthodox of their [place] [] Believes in Prayer [] Reads Bible or Mandaeism materials [] There are Spiritual issues to be addressed Credit Operations Specialist Interventions [] Prayer [] Active listening [] Non-anxious presence [] Spiritual/emotional support [] Crisis/trauma care [] Spiritual counseling [] Bereavement support [] Provided bereavement packet [] Provided Bible/devotional materials [] Provided toy/stuffed animal, coloring book to patient or family member [] Provided Communion [] Anointing/[place] [] Salvation [] Completed spiritual assessment [] Other: Impact on Illness or Injury [] Angry [] Fearful [] Anxious [] Often cries [] Exhaustion [] Unable to work [] Unable to attend zoroastrianism [] Unable to walk/stand [] Unable to read [] Unable to drive [] Unable to eat/drink [] Unable to sleep [] Unable to be with family [] Patient intubated [] Other: Summary Time spent with patient
[2019-08-04] MEDS: magnesium sulfate premix 2 GM/50 ML PIGGYBACK IV (12:18)
[2019-08-04 16:46] LABS: Glucose Point of Care 213 mg/dL (70-110)
[2019-08-04] MEDS: atorvastatin 40 mg Tablet 80 MG PO (17:49)
[2019-08-04] MEDS: sodium chlor 0.9% + KCl 20 mEq 20 MEQ/1,000 ML BAG 1000 MEQ IV (17:50)
[2019-08-04] MEDS: acetaminophen 325 mg Tablet 650 MG PO (20:09)
[2019-08-04] MEDS: cefTRIAXone 1,000 MG in sodium chloride 0.9% (plus) 50 ML 100 MG IV (20:09)
[2019-08-04 20:26] LABS: Glucose Point of Care 137 mg/dL (70-110)
[2019-08-05] VITALS (8 sets, daily range): BP systolic 137–164; BP diastolic 69–83; PULSE 82–95; RESP 18–22; TEMP 36.5–37; O2SAT 92–96
[2019-08-05] MEDS: LORazepam 2 mg/mL INJ 1 mL 1 MG IVP ×4 (03:40→21:56)
[2019-08-05] MEDS: sodium chlor 0.9% + KCl 20 mEq 20 MEQ/1,000 ML BAG 1000 MEQ IV ×2 (03:43→18:13)
[2019-08-05] MEDS: chlordiazePOXIDE 10 mg Capsule 20 MG PO ×3 (04:44→21:07)
[2019-08-05] MEDS: heparin 5,000 unit/mL INJ 1 mL 5000 UNIT SUBCUT ×3 (04:44→21:07)
[2019-08-05] MEDS: acetaminophen 325 mg Tablet 650 MG PO (05:02)
[2019-08-05 06:17] LABS: Basophils % 0.5 %; Eosinophils # 0.1 10^3/uL (0.0-0.8); Eosinophils % 0.6 %; Hematocrit 31.6 % (37.0-47.0); Hemoglobin 10.1 g/dL (11.5-15.3); Lymphocytes # 2.9 10^3/uL (0.8-4.8); Lymphocytes % 36.4 %; Mean Corpuscular Hemoglobin 27.6 pg (28.0-34.0); Mean Corpuscular Volume 86.3 fL (81-99); Mean Platelet Volume 8.5 fL (7.4-10.4); Monocytes # 0.7 10^3/uL (0.2-0.9); Monocytes % 8.6 %; Neutrophils # 4.2 10^3/uL (1.8-7.7); Neutrophils % 52.7 %; Nucleated Red Blood Cells % 0 %; Platelet Count 524 10^3/cmm (130-400); Red Blood Count 3.66 10^6/uL (4.1-5.3); Red Cell Distribution Width 18.5 % (12.1-15.1)
[2019-08-05 06:33] LABS: Alanine Aminotransferase 29 U/L (0-33); Albumin Level 3.2 g/dL (3.5-5.2); Alkaline Phosphatase 71 IU/L (35-105); Anion Gap 14.7 (5-19); Aspartate Amino Transferase 36 U/L (0-32); Blood Urea Nitrogen 6 mg/dL (8-23); Calcium 7.8 mg/dL (8.5-10.5); Carbon Dioxide 25 mmol/L (22-29); Chloride 94 mmol/L (98-107); Globulin 2.7 g/dL (1.3-4.6); Glomerular Filtration Rate 100.3 mL/min (90-130); Glucose 177 mg/dL (65-115); Osmolality Calculated 272 mOsm/kg (285-295); Sodium 131 mmol/L (136-145); Total Bilirubin 0.3 mg/dL (0.15-1.2); Total Protein 5.9 g/dL (6.6-8.7)
[2019-08-05 06:39] LABS: Potassium 2.7 mmol/L (3.5-5.1)
[2019-08-05 06:51] LABS: Glucose Point of Care 210 mg/dL (70-110)
[2019-08-05] MEDS: levothyroxine 150 mcg Tablet 75 MCG PO (08:41)
[2019-08-05] MEDS: lidocaine 5% Patch 1 PATCH TOPICAL (08:41)
[2019-08-05] MEDS: pantoprazole DR 40 mg Tablet PO (08:42)
[2019-08-05] MEDS: folic acid 1 mg Tablet PO (08:42)
[2019-08-05] MEDS: metoprolol tartrate 25 mg Tablet PO ×2 (08:42→17:04)
[2019-08-05] MEDS: aspirin 81 mg EC Tablet PO (08:42)
[2019-08-05] MEDS: predniSONE 10 mg Tablet 5 MG PO (08:43)
[2019-08-05 11:25] LABS: Glucose Point of Care 180 mg/dL (70-110)
[2019-08-05 13:08] LABS: Magnesium 1.8 mg/dL (1.7-2.3)
[2019-08-05] MEDS: potassium chloride premix 40 MEQ/100 ML PREMIX 25 MEQ IV (14:05)
--- NOTE | 2019-08-05 16:09 | P.PN_ITS ---
Subjective Subjective: Interval history: Ingris reports she is feeling a little bit better. Still having quite a bit of loose stools. Not wanting to eat much. Medications: Reviewed: Yes Vitals/I&O/Wt Last Vital Signs Temp 98.0 F 08/05/19 12:00 Pulse 82 08/05/19 12:00 Resp 22 H 08/05/19 12:00 BP 164/69 08/05/19 12:00 Pulse Ox 94 08/05/19 12:00 08/05/19 08/05/19 08/05/19 06:59 14:59 22:59 Intake Total 236 / 236 Balance 236 / 236 Physical Exam Narrative: EXAM NARRATIVE: General exam no apparent distress Cardiovascular regular rate and rhythm without murmur Lungs clear no wheezing or crackles Abdomen is soft with positive bowel sounds. No significant tenderness Extremities no cyanosis clubbing or edema Data : 08/05/19 06:03 08/05/19 06:03 Micro: Microbiology 08/03/19 17:05 Urine Culture - Preliminary Urine,Clean Catch Gram Negative Rods 08/03/19 12:41 Parasite Antigen Panel - Final Stool 08/03/19 12:41 Enteric Pathogens (PCR) - Final Stool 08/03/19 12:41 C.difficile Toxin B Gene (PCR) - Final Stool 08/03/19 12:41 Stool Lactoferrin - Final Stool A&P Assessment and plan (1) Abdominal pain: Likely secondary to C. difficile colitis. Vancomycin has been started. Status: Acute Qualifiers: Abdominal location: generalized Qualified Code(s): R10.84 - Generalized abdominal pain (2) Chronic diarrhea: See above Status: Acute (3) Hypokalemia: IV supplementation today Status: Acute (4) Hyponatremia: Improved. Likely secondary to alcoholism. Cortisol level normal. Status: Acute (5) Hypomagnesemia: Normal today after supplement previously Status: Acute (6) UTI (urinary tract infection): Continue Rocephin. Urine growing gram-negative rods Status: Acute (7) Sepsis: No evidence of sepsis currently Status: Acute (8) Acute kidney injury: Resolved Status: Acute (9) Alcohol withdrawal: Continue Librium Continue CIWA protocol Status: Acute Additional A&P Information Type 2 diabetes. Continue sliding scale insulin History of adrenal insufficiency. Continue home prednisone Hypothyroidism, TSH checked and normal History of abnormal EKG, troponin without significant delta Hypertension, last blood pressure 136/74 Full code DVT prophylaxis with heparin Hopefully can improve enough that she can be discharged by tomorrow. Attestations Medical Necessity Statement*: Needs continued hospital stay, for correction of electrolyte abnormalities and monitoring for improvement of C. difficile coli tis. Coding Level of Care Code Acute Gasoline Dragline Operator for Chg Fwd Diagnoses Abdominal pain R10.84 Abdominal location: generalized Chronic diarrhea K52.9 Hypokalemia E87.6 Hyponatremia E87.1 Hypomagnesemia E83.42 UTI (urinary tract infection) N39.0 Sepsis A41.9 Acute kidney injury N17.9 Alcohol withdrawal F10.239
[2019-08-05] MEDS: atorvastatin 40 mg Tablet 80 MG PO (17:04)
[2019-08-05 17:58] LABS: Glucose Point of Care 249 mg/dL (70-110)
[2019-08-05] MEDS: cefTRIAXone 1,000 MG in sodium chloride 0.9% (plus) 50 ML 100 MG IV (21:07)
[2019-08-05 21:14] LABS: Glucose Point of Care 218 mg/dL (70-110)
[2019-08-06] VITALS (8 sets, daily range): BP systolic 130–158; BP diastolic 68–87; PULSE 68–97; RESP 18–22; TEMP 36–36.9; O2SAT 92–99
[2019-08-06] MEDS: acetaminophen 325 mg Tablet 650 MG PO (02:16)
[2019-08-06] MEDS: LORazepam 2 mg/mL INJ 1 mL IVP ×3 (03:02→07:52)
[2019-08-06] MEDS: heparin 5,000 unit/mL INJ 1 mL 5000 UNIT SUBCUT ×2 (04:29→12:10)
[2019-08-06] MEDS: chlordiazePOXIDE 10 mg Capsule 20 MG PO ×2 (04:29→12:10)
--- NOTE | 2019-08-06 04:51 | PC.NURSE ---
patient given 2mg iv Ativan per CIWA protocol, medication wouldnt scan, CIWA score 16, witnessed by NKECHI RUSS
[2019-08-06 06:00] LABS: Basophils % 0.3 %; Eosinophils # 0.1 10^3/uL (0.0-0.8); Eosinophils % 0.9 %; Hemoglobin 9.5 g/dL (11.5-15.3); Lymphocytes # 3.4 10^3/uL (0.8-4.8); Lymphocytes % 32.8 %; Mean Corpuscular HGB Conc 32.8 g/dL (30.0-36.0); Mean Corpuscular Hemoglobin 28.3 pg (28.0-34.0); Mean Corpuscular Volume 86.3 fL (81-99); Monocytes # 0.8 10^3/uL (0.2-0.9); Monocytes % 8.1 %; Neutrophils # 5.8 10^3/uL (1.8-7.7); Neutrophils % 56.4 %; Nucleated Red Blood Cells % 0 %; Platelet Count 512 10^3/cmm (130-400); Red Blood Count 3.36 10^6/uL (4.1-5.3); Red Cell Distribution Width 18.5 % (12.1-15.1); White Blood Count 10.3 10^3/uL (4.0-10.0)
[2019-08-06] MEDS: sodium chlor 0.9% + KCl 20 mEq 20 MEQ/1,000 ML BAG 1000 MEQ IV (06:05)
[2019-08-06 06:15] LABS: Alanine Aminotransferase 32 U/L (0-33); Albumin Level 3.2 g/dL (3.5-5.2); Alkaline Phosphatase 69 IU/L (35-105); Anion Gap 16.4 (5-19); Aspartate Amino Transferase 24 U/L (0-32); Blood Urea Nitrogen 4 mg/dL (8-23); Calcium 8.2 mg/dL (8.5-10.5); Carbon Dioxide 21 mmol/L (22-29); Chloride 99 mmol/L (98-107); Globulin 2.5 g/dL (1.3-4.6); Glucose 245 mg/dL (65-115); Osmolality Calculated 280 mOsm/kg (285-295); Potassium 3.4 mmol/L (3.5-5.1); Sodium 133 mmol/L (136-145); Total Bilirubin 0.2 mg/dL (0.15-1.2); Total Protein 5.7 g/dL (6.6-8.7)
[2019-08-06 06:50] LABS: Glucose Point of Care 233 mg/dL (70-110)
[2019-08-06] MEDS: lidocaine 5% Patch 1 PATCH TOPICAL (09:08)
[2019-08-06] MEDS: aspirin 81 mg EC Tablet PO (09:09)
[2019-08-06] MEDS: levothyroxine 150 mcg Tablet 75 MCG PO (09:13)
[2019-08-06] MEDS: folic acid 1 mg Tablet PO (09:14)
[2019-08-06] MEDS: predniSONE 10 mg Tablet 5 MG PO (09:14)
[2019-08-06 10:52] LABS: Glucose Point of Care 238 mg/dL (70-110)
--- NOTE | 2019-08-06 11:34 | PC.SOCIAL ---
*IMM* Patient received (updated) Important Message from Medicare. patient signed, original in chart, copy gave to the patient
[2019-08-06] MEDS: metoprolol tartrate 25 mg Tablet PO (13:24)
[2019-08-06] MEDS: pantoprazole DR 40 mg Tablet PO (13:24)
[2019-08-06 16:12] LABS: Glucose Point of Care 269 mg/dL (70-110)
--- NOTE | 2019-08-06 17:05 | PM.DCS ---
Discharge Providers Date of Admission: 08/03/19 19:14 Date of Discharge: August 06, 2019 Attending Provider at Admission: Sammy Evans Attending Provider at Discharge: Syed Miller MD Primary Care Provider: KATRINA Cash Diagnoses at Discharge Discharge Diagnosis (1) Abdominal pain: Status: Acute Problem details: Resolved Qualifiers: Abdominal location: generalized Qualified Code(s): R10.84 - Generalized abdominal pain (2) Chronic diarrhea: Status: Acute Problem details: Positive for C. difficile. 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 Prolonged taper. (3) Hypokalemia: Status: Acute (4) Hyponatremia: Status: Acute (5) Hypomagnesemia: Status: Acute (6) UTI (urinary tract infection): Status: Acute Problem details: 3 days of cefdinir (7) Sepsis: Status: Acute (8) Acute kidney injury: Status: Acute (9) Alcohol withdrawal: Status: Acute Problem details: Resolved Reason for Visit Reason for Visit: Reason For Visit: sickness Hospital Course Hospital Course: Ingris presented to the hospital with history of nausea, abdominal pain, diarrhea. There was also concern of alcohol withdrawal. Librium was started, as well as CIWA protocol. Stool was checked for C. difficile which was positive. Patient had had a previous occurrence, that she reports never went away. She was placed on vancomycin. CT of abdomen and pelvis done while in the hospital demonstrated no acute changes. During her hospital stay she gradually improved, and on August 05 she was adamant that she be discharged home. She had been receiving fairly frequent Ativan. When told that it may not be appropriate to discharge as alcohol withdrawal could still be occurring she refused to take anymore as of 730 the morning of discharge. By 5 PM she still had no evidence of withdrawal, was adamant she wanted to go home. She was alert and oriented x3. She had no hypotension and tachycardia. I talked and discussed her case with her , and she was discharged home on a prolonged course of vancomycin for her recurrent C. difficile. She will also be given 3 more days of cefdinir secondary to UTI, pansensitive E. coli found on admission. She was instructed not to drink any alcohol, follow-up with her primary care provider, notify them immediately for any recurrence of C. difficile. Physical Exam Narrative: EXAM NARRATIVE: General exam no apparent distress Cardiovascular regular rate and rhythm without murmur Lungs clear Abdomen is soft with positive bowel sounds Extremities no cyanosis clubbing or edema Discharge Data Data Completed and Pending: Completed Studies During Hospitalization Category Date Time Status CT abdomen pelvis w con* [id number] Stat Cat Scan 08/03/19 14:13 Completed XR chest 1V eduardo ble [id number] Stat Exams 08/03/19 14:13 Completed Labs from last 24 hours 08/06/19 08/06/19 08/06/19 16:05 10:49 06:46 WBC RBC Hgb Hct MCV MCH MCHC RDW Plt Count MPV Neut % (Auto) Lymph % (Auto) [place] % (Auto) Eos % (Auto) Baso % (Auto) Neut # (Auto) Lymph # (Auto) [place] # (Auto) Eos # (Auto) Baso # (Auto) Nucleated RBC % (a uto) Nucleated RBCs # Sodium Potassium Chloride Carbon Dioxide Anion Gap BUN Creatinine GFR Calculation Glucose POC Glucose 269 238 233 Calculated Osmolal ity Calcium Total Bilirubin AST ALT Alkaline Phosphata se Total Protein Albumin Globulin 08/06/19 08/06/19 08/05/19 05:10 05:10 21:10 WBC 10.3 H RBC 3.36 L Hgb 9.5 L Hct 29.0 L MCV 86.3 MCH 28.3 MCHC 32.8 RDW 18.5 H Plt Count 512 H MPV 9.0 Neut % (Auto) 56.4 Lymph % (Auto) 32.8 [place] % (Auto) 8.1 Eos % (Auto) 0.9 Baso % (Auto) 0.3 Neut # (Auto) 5.8 Lymph # (Auto) 3.4 [place] # (Auto) 0.8 Eos # (Auto) 0.1 Baso # (Auto) 0.0 Nucleated RBC % (a uto) 0 Nucleated RBCs # 0.0 Sodium 133 L Potassium 3.4 L Chloride 99 Carbon Dioxide 21 L Anion Gap 16.4 BUN 4 L Creatinine 0.7 GFR Calculation 84.0 L Glucose 245 H POC Glucose 218 Calculated Osmolal ity 280 L Calcium 8.2 L Total Bilirubin 0.2 AST 24 ALT 32 Alkaline Phosphata se 69 Total Protein 5.7 L Albumin 3.2 L Globulin 2.5 08/05/19 16:26 WBC RBC Hgb Hct MCV MCH MCHC RDW Plt Count MPV Neut % (Auto) Lymph % (Auto) [place] % (Auto) Eos % (Auto) Baso % (Auto) Neut # (Auto) Lymph # (Auto) [place] # (Auto) Eos # (Auto) Baso # (Auto) Nucleated RBC % (a uto) Nucleated RBCs # Sodium Potassium Chloride Carbon Dioxide Anion Gap BUN Creatinine GFR Calculation Glucose POC Glucose 249 Calculated Osmolal ity Calcium Total Bilirubin AST ALT Alkaline Phosphata se Total Protein Albumin Globulin Vitals: Last Vital Signs Temp 96.8 F L 08/06/19 15:22 Pulse 74 08/06/19 15:22 Resp 18 08/06/19 15:22 BP 132/70 08/06/19 15:22 Pulse Ox 98 08/06/19 15:22 Discharge Plan Discharge Patient Disposition: Home, Self-Care Condition: Stable Prescriptions: New vancomycin 125 mg capsule 125 mg PO QID 14 Days Qty: 105 RF: 0 cefdinir 300 mg capsule 300 mg PO BID 3 Days Qty: 6 RF: 0 Continued ondansetron HCl [Zofran] 4 mg tablet 4 mg PO Q8H PRN (Reason: nausea and vomiting) Qty: 30 RF: 0 venlafaxine [Effexor XR] 150 mg capsule,extended release 24hr 150 mg PO DAILY Qty: 30 RF: 1 venlafaxine [Effexor XR] 37.5 mg capsule,extended release 24hr 37.5 mg PO DAILY Qty: 30 RF: 1 hydroxyzine pamoate [Vistaril] 50 mg capsule 50 mg PO .HS Qty: 60 RF: 1 furosemide 40 mg Tablet 40 mg PO DAILY RF: 0 atorvastatin 80 mg Tablet 80 mg PO QPM RF: 0 thiamine HCl (vitamin B1) 100 mg Tablet 100 mg PO DAILY RF: 0 aspirin [Aspir-81] 81 mg Tablet,Delayed Release (Dr/Ec) 81 mg PO DAILY RF: 0 levothyroxine 75 mcg Tablet 75 mcg PO DAILY RF: 0 pantoprazole 40 mg Tablet,Delayed Release (Dr/Ec) 40 mg PO DAILY RF: 0 lidocaine 5 % Adhesive Patch,Medicated 1 patch TOPICAL DAILY RF: 0 metoprolol tartrate 50 mg Tablet 25 mg PO BID RF: 0 ferrous sulfate 325 mg (65 mg iron) Tablet,Delayed Release (Dr/Ec) 325 mg PO DAILY RF: 0 prednisone 10 mg Tablet 5 mg PO DAILY Qty: 30 RF: 0 insulin aspart U-100 [Novolog Flexpen U-100 Insulin] 100 unit/mL (3 mL) Insulin Pen See Rx Instructions .ROUTE .COMPLEX Qty: 0 RF: 0 Lantus U-100 Insulin 100 unit/mL solution 10 unit SUBCUT DAILY Qty: 10 RF: 0 clonazepam 0.5 mg Tablet 0.5 mg PO TID PRN (Reason: Anxiety) RF: 0 Seroquel 50 mg tablet 50 mg PO BEDTIME RF: 0 Discharge Orders: Discharge Order (Routine); Ordered 08/06/19 Ordered By: Syed Miller Referrals: Thu Flores FNP [Primary Care Provider] - 4-7 days Discharge Activity: Increase activity as tolerated Activity Restrictions/Additional Instructions: Avoid alcohol. Return to primary care provider promptly for any recurrence of diarrhea after course of vancomycin Discharge Attestations Time Spent in Discharge Care*: greater than 30 min Quality Metrics Clinical Quality Measures During this hospital stay, did patient experience: None Coding Level of Care Code Acute [employer] President for Chg Fwd Diagnoses Abdominal pain R10.84 Abdominal location: generalized Chronic diarrhea K52.9 Hypokalemia E87.6 Hyponatremia E87.1 Hypomagnesemia E83.42 UTI (urinary tract infection) N39.0 Sepsis A41.9 Acute kidney injury N17.9 Alcohol withdrawal F10.239
== END 2019-08-06 18:56 | disposition home or self-care (01) | DRG 372 ==
LOC: ER 19:16 → MEDSURG 08-04 07:09
PROVIDERS: Family Medicine; Admitting Provider Internal Medicine; PCP Nurse Practitioner; Visit Provider Internal Medicine
DX: A04.72 Enterocolitis due to Clostridium difficile, not specified as recurrent (principal); F10.239 Alcohol dependence with withdrawal, unspecified; E27.40 Unspecified adrenocortical insufficiency; F33.2 Major depressive disorder, recurrent severe without psychotic features; N17.9 Acute kidney failure, unspecified; N39.0 Urinary tract infection, site not specified; E87.1 Hypo-osmolality and hyponatremia; E11.22 Type 2 diabetes mellitus with diabetic chronic kidney disease; I12.9 Hypertensive chronic kidney disease with stage 1 through stage 4 chronic kidney disease, or unspecified chronic kidney disease; N18.2 Chronic kidney disease, stage 2 (mild); E03.9 Hypothyroidism, unspecified; G89.29 Other chronic pain; M54.9 Dorsalgia, unspecified; K21.9 Gastro-esophageal reflux disease without esophagitis; E78.5 Hyperlipidemia, unspecified; E66.01 Morbid (severe) obesity due to excess calories; Z68.31 Body mass index [BMI] 31.0-31.9, adult; F43.12 Post-traumatic stress disorder, chronic; F17.210 Nicotine dependence, cigarettes, uncomplicated; E86.0 Dehydration; E87.6 Hypokalemia; Z79.4 Long term (current) use of insulin; Z79.82 Long term (current) use of aspirin; B96.20 Unspecified Escherichia coli [E. coli] as the cause of diseases classified elsewhere; E83.42 Hypomagnesemia; E11.43 Type 2 diabetes mellitus with diabetic autonomic (poly)neuropathy; K31.84 Gastroparesis
CPT/HCPCS: 12345; 36415; 36416; 36569; 71045; 74177; 80048; 80053; 81001; 82533; 82962; 83036; 83605; 83630; 83690; 83735; 84100; 84145; 84443; 84484; 85025; 87077; 87086; 87186; 87493; 87506; 93005; 96372; 96375; 99284; J0696; J1100; J1644; J1815; J2060; J2270; J2405; J3370; J3411; J3475; J3480; J3490; J7030; J7512; Q9967

== ENCOUNTER 2019-08-24 16:51 | Observation (INO) | payer OTHER, MEDICARE, SELFPAY ==
[2019-08-24 16:55] VITALS: BMI 30.8
[2019-08-24 17:05] VITALS: BP 165/99; PULSE 117; RESP 20; TEMP 37.1; O2SAT 98
--- NOTE | 2019-08-24 17:26 | XRR_ITS ---
PROCEDURE INFORMATION: Exam: XR Chest, 1 View Exam date and time: 08/24/2019 5:55 PM Age: 64 years old Clinical indication: Cough and dyspnea; Prior surgery; Surgery type: Stimulator; Additional info: Shortness of breath TECHNIQUE: Imaging protocol: XR of the chest Views: 1 view. COMPARISON: CR XR chest 1V portable [id number] 08/03/2019 2:20 PM FINDINGS: Tubes, catheters and devices: Stimulator lead projects over the mid thorax. Lungs: Shallow inspiration with crowding and prominent interstitial opacities in the central and lower lungs. No focal consolidation. Pleural space: Unremarkable. No pleural effusion. No pneumothorax. Heart/Mediastinum: Unremarkable. No cardiomegaly. Bones/joints: Unremarkable. XR/XR chest 1V portable [id number] IMPRESSION: Interstitial opacities in the lung bases could represent pulmonary edema or atypical pneumonia.
[2019-08-24 18:45] LABS: Rapid Strep A Test Negative (Negative)
[2019-08-24 18:54] LABS: Influenza A by IFA Negative (Negative); Influenza B by IFA Negative (Negative)
--- NOTE | 2019-08-24 19:08 | ED_ITS ---
HPI - SOB/Dyspnea General: Chief Complaint: Shortness of Breath/Dyspnea Stated Complaint: SOB, CDIFF Time Seen by Provider: 08/24/19 17:12 History of Present Illness: HPI Narrative: 64-year-old female patient who was discharged from this facility about 2 weeks ago when she was admitted for abdominal pain and C. difficile diarrhea. She also had several electrolyte abnormalities. A few days ago she started developing some difficulty breathing, sore throat. She denies any fever. She presents here for evaluation MD elicited complaint: shortness of breath Onset (ago): day(s) Context: recent illness Timing: constant and progressively worsening Severity: moderate Exacerbating factors: nothing Relieving factors: nothing Associated symptoms: Deny abdominal pain, fever(s), nausea, palpitations, polydipsia, polyuria or vomiting Treatment prior to arrival: none Review of Systems General: Reports: 10 or more systems reviewed and unremarkable except in HPI and below Const: Denies: fever(s), chills or body aches Eyes: Denies: change in vision or blurry vision ENMT: Denies: throat pain, enlarged tonsils, odynophagia, hoarseness, mouth pain or swelling of lips/tongue Card: Denies: palpitations, irregular heart rhythm, edema or swelling of feet/ankles Resp: Reports: dyspnea; Denies: productive cough or non-productive cough GI: Denies: abdominal pain, nausea or vomiting : Denies: flank pain, difficulty voiding, dysuria, urinary frequency, urinary urgency or urinary hesitancy Musc: Denies: neck pain, back pain or extremity swelling Skin/Breast: Denies: rash, pruritus or erythema Neuro: Denies: headache(s), numbness in extremities or weakness in extremities Endo: Denies: polyuria, polydipsia or tired all the time PFSH ED PFSH: Medical History (Updated 08/25/19 @ 00:33 by Markell Fernández MD, [facility]) C. 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, recurrent severe without psychotic features Morbid obesity Post-traumatic stress disorder, chronic Surgical History H/O esophagogastroduodenoscopy H/O: hysterectomy History of bunionectomy bilateral Hx of cholecystectomy Status post colonoscopy Family History Other CAD (coronary artery disease) Cancer Diabetes Hypertension Denies family history of Anesthesia complication Bleeding disorder Social History Smoking and tobacco status: current every day smoker cigars Cigars smoked per week: 28 Smoking risk assessment/counseling performed?: No Alcohol intake: current Alcohol intake frequency: 3 or more drinks per day Alcohol type: beer Household members: spouse Housing: House Marital status: Current occupational status: retired History of recent travel: No Physical Exam Const: COMMON NORMALS: no acute distress, average body habitus, patient oriented x3, no limitations, healthy appearing, alert and well nourished Neck/C-Spine: COMMON NORMALS: no meningeal signs and no JVD Resp: COMMON NORMALS: normal respiratory effort, No retractions, No use of accessory muscles, clear to auscultation bilaterally and percussion normal AUSCULTATION: clear to auscultation bilaterally PERCUSSION: percussion normal Cardio: COMMON NORMALS: no JVD, regular rate, regular rhythm, S1 normal heart sound present, S2 normal heart sound present, No gallops present (Cardio), No clicks present (Cardio), No murmurs present (Cardio), No rub (Cardio) and Peripheral pulses 2+ throughout RATE: regular rate RHYTHM: regular rhythm HEART SOUNDS: S1 normal heart sound present and S2 normal heart sound present PERIPHERAL PULSES: Peripheral pulses 2+ throughout GI: COMMON NORMALS: Normal to inspection, nondistended, normoactive bowel sounds present, Soft to palpation, non-tender, No hepatosplenomegaly present, no masses and no bruits PALPATION: Yes Soft to palpation and Yes No hepatosplenomegaly present : COMMON NORMALS: Yes no CVA tenderness BLADDER/KIDNEY EXAM: Yes no CVA tenderness Back/Pelvis: COMMON NORMALS: no CVA tenderness Extremity: COMMON NORMALS: normal to inspection, full ROM, capillary refill normal, no calf tenderness and no pedal edema Neuro: COMMON NORMALS: patient oriented x3 SENSORIUM/ORIENTATION: Yes alert MENINGEAL SIGNS: Yes no meningeal signs Skin: COMMON NORMALS: no rashes or lesions noted, no wounds, turgor normal, no jaundice, no petechiae and no mottling GENERAL SKIN EXAM: no rashes or lesions noted and turgor normal Course Consultations: Consultation #1: Dr. Murdock, hospitalist. He kindly accepted the patient to his service Time: 21:30 Vital Signs: Vital signs: Vital Signs Temperature 98.7 F 08/24/19 17:05 Pulse Rate 117 H 08/24/19 17:05 Respiratory Rate 20 H 08/24/19 17:05 Blood Pressure 165/99 08/24/19 17:05 Pulse Oximetry 98 08/24/19 17:05 MDM - SOB/Dyspnea MDM Narrative: Medical decision making narrative: 64-year-old female patient was recently discharged from the hospital with multiple medical issues including chronic diarrhea and recurrent C. difficile, congestive heart failure, diabetes presented to the emergency department with difficulty breathing, sore throat, and general fatigue. Evaluation in the emergency department shows congestive heart failure, atypical pneumonia and COVID-19 cannot be ruled out based on the x-ray findings. She is also noted to be hyponatremic. She was not septic, and was given antibiotics for the pneumonia. She is admitted to the hospital for further evaluation and management Medical Records: Attestation: I reviewed the patient's medical records. Lab Data: Attestation: I reviewed the patient's lab results. Labs: Lab Results 08/24/19 08/24/19 08/24/19 Range/Units 18:00 18:00 20:13 WBC 13.3 H (4.0-10.0) 10^3/ uL RBC 4.27 (4.1-5.3) 10^6/u L Hgb 12.1 (11.5-15.3) g/dL Hct 36.0 L (37.0-47.0) % MCV 84.3 (81-99) fL MCH 28.3 (28.0-34.0) pg MCHC 33.6 (30.0-36.0) g/dL RDW 16.9 H (12.1-15.1) % Plt Count 483 H (130-400) 10^3/c mm MPV 9.3 (7.4-10.4) fL Neut % (Auto) 72.3 % Lymph % (Auto) 19.0 % [place] % (Auto) 7.7 % Eos % (Auto) 0.5 % Baso % (Auto) 0.2 % Neut # (Auto) 9.6 H (1.8-7.7) 10^3/u L Lymph # (Auto) 2.5 (0.8-4.8) 10^3/u L [place] # (Auto) 1.0 H (0.2-0.9) 10^3/u L Eos # (Auto) 0.1 (0.0-0.8) 10^3/u L Baso # (Auto) 0.0 (0.0-0.1) 10^3/u L Nucleated RBC % (a uto) 0 % Nucleated RBCs # 0.0 /100WBC Sodium (136-145) mmol/L Potassium (3.5-5.1) mmol/L Chloride (98-107) mmol/L Carbon Dioxide (22-29) mmol/L Anion Gap (5-19) BUN (8-23) mg/dL Creatinine (0.5-0.9) mg/dL GFR Calculation (90-130) mL/min Glucose (65-115) mg/dL Calculated Osmolal ity (285-295) mOsm/k g Lactic Acid (0.5-2.2) mmol/L Calcium (8.5-10.5) mg/dL Total Bilirubin (0.15-1.2) mg/dL AST (0-32) U/L ALT (0-33) U/L Alkaline Phosphata se (35-105) IU/L NT-Pro-B Natriuret Pep (0-125) pg/mL Total Protein (6.6-8.7) g/dL Albumin (3.5-5.2) g/dL Globulin (1.3-4.6) g/dL Lipase (13-60) U/L Influenza Type A A g Negative (Negative) Influenza Type B A g Negative (Negative) Group A Strep Rapi d Negative (Negative) 08/24/19 08/24/19 Range/Units 20:13 20:13 WBC (4.0-10.0) 10^3/ uL RBC (4.1-5.3) 10^6/u L Hgb (11.5-15.3) g/dL Hct (37.0-47.0) % MCV (81-99) fL MCH (28.0-34.0) pg MCHC (30.0-36.0) g/dL RDW (12.1-15.1) % Plt Count (130-400) 10^3/c mm MPV (7.4-10.4) fL Neut % (Auto) % Lymph % (Auto) % [place] % (Auto) % Eos % (Auto) % Baso % (Auto) % Neut # (Auto) (1.8-7.7) 10^3/u L Lymph # (Auto) (0.8-4.8) 10^3/u L [place] # (Auto) (0.2-0.9) 10^3/u L Eos # (Auto) (0.0-0.8) 10^3/u L Baso # (Auto) (0.0-0.1) 10^3/u L Nucleated RBC % (a uto) % Nucleated RBCs # /100WBC Sodium 124 L (136-145) mmol/L Potassium 3.5 (3.5-5.1) mmol/L Chloride 82 L (98-107) mmol/L Carbon Dioxide 28 (22-29) mmol/L Anion Gap 17.5 (5-19) BUN 4 L (8-23) mg/dL Creatinine 0.5 (0.5-0.9) mg/dL GFR Calculation 123.8 (90-130) mL/min Glucose 163 H (65-115) mg/dL Calculated Osmolal ity 257 L (285-295) mOsm/k g Lactic Acid 1.2 (0.5-2.2) mmol/L Calcium 9.3 (8.5-10.5) mg/dL Total Bilirubin 0.4 (0.15-1.2) mg/dL AST 15 (0-32) U/L ALT 12 (0-33) U/L Alkaline Phosphata se 103 (35-105) IU/L NT-Pro-B Natriuret Pep 2582 H (0-125) pg/mL Total Protein 7.2 (6.6-8.7) g/dL Albumin 3.9 (3.5-5.2) g/dL Globulin 3.3 (1.3-4.6) g/dL Lipase 21 (13-60) U/L Influenza Type A A g (Negative) Influenza Type B A g (Negative) Group A Strep Rapi d (Negative) Imaging Data^: CXR: Radiologist's impression: [address] [address] XRay Report Signed Patient: Ingris Mendosa #: [id number] : 1955cct#:[id number] Age/Sex: 64 / FADM Date: 08/24/19 Loc: ERRoom/Bed: Attending Dr: Ordering Provider/Ordering MD: Markell Fernández MD, [facility] Date of Service: 08/24/19 Procedure(s): XR chest 1V portable [id number] Accession Number(s): [id number] Report Number: [id number] PROCEDURE INFORMATION: Exam: XR Chest, 1 View Exam date and time: 08/24/2019 5:55 PM Age: 64 years old Clinical indication: Cough and dyspnea; Prior surgery; Surgery type: Stimulator; Additional info: Shortness of breath TECHNIQUE: Imaging protocol: XR of the chest Views: 1 view. COMPARISON: CR XR chest 1V portable [id number] 08/03/2019 2:20 PM FINDINGS: Tubes, catheters and devices: Stimulator lead projects over the mid thorax. Lungs: Shallow inspiration with crowding and prominent interstitial opacities in the central and lower lungs. No focal consolidation. Pleural space: Unremarkable. No pleural effusion. No pneumothorax. Heart/Mediastinum: Unremarkable. No cardiomegaly. Bones/joints: Unremarkable. XR/XR chest 1V portable [id number] IMPRESSION: Interstitial opacities in the lung bases could represent pulmonary edema or atypical pneumonia. Dictated By:Bahman Calix Signed By:Rand Calix Date/Time:08/24/191917 DD/ 16 CT Abd/Pel: Radiologist's impression: [address] [address] [address] Scan Report Signed Patient: Ingris Mendosa #: [id number] : [id number]#:[id number] Age/Sex: 64 / FADM Date: 08/24/19 Loc: ICURoom/Bed: [place] [address]: Tian Murdock MD Ordering Provider/Ordering MD: Markell Fernández MD, [facility] Date of Service: 08/24/19 Procedure(s): CT abdomen pelvis w con* [id number] Accession Number(s): [id number] Report Number: [id number] PROCEDURE INFORMATION: Exam: CT Abdomen And Pelvis With Contrast Exam date and time: 08/24/2019 10:32 PM Age: 64 years old Clinical indication: Abdominal pain; Prior surgery; Surgery type: Hysto, stimulator, gb; Additional info: Abdominal pain, c. Diff colitis TECHNIQUE: Imaging protocol: Computed tomography of the abdomen and pelvis with intravenous contrast. Radiation optimization: All CT scans at this facility use at least one of these dose optimization techniques: automated exposure control; mA and/or kV adjustment per patient size (includes targeted exams where dose is matched to clinical indication); or iterative reconstruction. Contrast material: OMNI 300; Contrast volume: 95 ml; Contrast route: IV; COMPARISON: CT abdomen pelvis w con* [id number] 08/03/2019 6:27 PM RADIATION DOSE METRICS: Total DLP: 1646.9 mGy-cm FINDINGS: Tubes, catheters and devices: Stimulator pack in the left buttock region with lead extending into the dorsal thoracic spinal canal. Lungs: Patchy ground-glass opacities have worsened in both lung bases. Liver: Normal. No mass. Gallbladder and bile ducts: Cholecystectomy. The bile ducts are normal. Pancreas: Normal. No ductal dilation. Spleen: Normal. No splenomegaly. Adrenals: Stable thickening of the bilateral adrenal bodies, most likely hyperplasia. Kidneys and ureters: Stable 1 cm low-density in the right kidney, Hounsfield units less than 20. The left kidney is normal. Stomach and bowel: Scattered gas and mild amount of stool in the colon. No visible wall thickening. Mild diverticulosis of the sigmoid colon. The stomach and small bowel are unremarkable. Appendix: The appendix is not visualized. No secondary signs of appendicitis. Intraperitoneal space: Unremarkable. No free air. No significant fluid collection. Vasculature: Unremarkable. No abdominal aortic aneurysm. Lymph nodes: Unremarkable. No enlarged lymph nodes. Bladder: Unremarkable as visualized. Reproductive: The uterus and ovaries are absent. Bones/joints: Scoliosis and degenerative changes of the spine. No compression fracture. Degenerative changes of the hips, right greater than left. Soft tissues: Unremarkable. CT/CT abdomen pelvis w con* [id number] IMPRESSION: 1. Worsened atypical pneumonia versus pulmonary edema in the lung bases. 2. No acute abnormality identified in the abdomen or pelvis. 3. Mild diverticulosis of the distal colon. No evidence to suggest active colitis. Radiation Dose CTDIVOL = (mGy): DLP = 1646.9 (mGy-cm) Dictated By:Bahman Calix Signed By:Bahman CalixSinasir Date/Time:08/24/192306 DD/ 05 Discharge Plan Discharge Patient Disposition: Admitted As Inpatient Admit Provider: Tian Murdock Clinical Impression: Pneumonia, Congestive heart failure, Acute hyponatremia Condition: Stable Coding Level of Care Code ED Package Liner for Navid Fwd Exam Comprehensive
[2019-08-24 20:27] LABS: Basophils % 0.2 %; Eosinophils # 0.1 10^3/uL (0.0-0.8); Eosinophils % 0.5 %; Hemoglobin 12.1 g/dL (11.5-15.3); Lymphocytes # 2.5 10^3/uL (0.8-4.8); Mean Corpuscular HGB Conc 33.6 g/dL (30.0-36.0); Mean Corpuscular Hemoglobin 28.3 pg (28.0-34.0); Mean Corpuscular Volume 84.3 fL (81-99); Mean Platelet Volume 9.3 fL (7.4-10.4); Monocytes % 7.7 %; Neutrophils # 9.6 10^3/uL (1.8-7.7); Neutrophils % 72.3 %; Nucleated Red Blood Cells % 0 %; Platelet Count 483 10^3/cmm (130-400); Red Blood Count 4.27 10^6/uL (4.1-5.3); Red Cell Distribution Width 16.9 % (12.1-15.1); White Blood Count 13.3 10^3/uL (4.0-10.0)
[2019-08-24 20:42] LABS: Lactic Sepsis W/Reflex 1.2 mmol/L (0.5-2.2)
[2019-08-24 20:51] LABS: Alanine Aminotransferase 12 U/L (0-33); Albumin Level 3.9 g/dL (3.5-5.2); Alkaline Phosphatase 103 IU/L (35-105); Anion Gap 17.5 (5-19); Aspartate Amino Transferase 15 U/L (0-32); Blood Urea Nitrogen 4 mg/dL (8-23); Calcium 9.3 mg/dL (8.5-10.5); Carbon Dioxide 28 mmol/L (22-29); Chloride 82 mmol/L (98-107); Globulin 3.3 g/dL (1.3-4.6); Glomerular Filtration Rate 123.8 mL/min (90-130); Glucose 163 mg/dL (65-115); Lipase 21 U/L (13-60); NT Pro B Type Natriuretic Pept 2582 pg/mL (0-125); Osmolality Calculated 257 mOsm/kg (285-295); Potassium 3.5 mmol/L (3.5-5.1); Sodium 124 mmol/L (136-145); Total Bilirubin 0.4 mg/dL (0.15-1.2); Total Protein 7.2 g/dL (6.6-8.7)
--- NOTE | 2019-08-24 21:54 | P.HP_ITS ---
Providers/Chief Complaint Primary Care Provider: KATRINA Cash Chief Complaint: SOB, CDIFF History of Present Illness Ingris Mendosa is a 64 year old female who carries diagnosis of diabetes, hypertension, adrenal insufficiency, alcohol abuse, hypothyroidism, was recently discharged from the hospital on vancomycin tapering regimen for persistent C. difficile diarrhea coming in today with chief complaint of generalized weakness, lethargy and shortness of breath. Of note, she was discharged home with 3-day course of cefdinir for pansensitive E. coli. Patient is stating that she has been compliant with her medications, mostly she gets loose stools almost every 2-3 hours but for last 2 days she has not had any bowel movement, she is experiencing abdominal pain, she did not notice any fever, nausea or vomiting but she is able to pass flatus, she is denying dysuria. She decided to come to the ED for further evaluation because she was feeling very lethargic as well. She is denying chest pain, orthopnea, PND but endorsing shortness of breath on exertion, she does not use oxygen at home. She has not noticed any swelling of her lower extremities, she endorses history of CHF in the past. Diagnosis in the ER revealed hypertension, tachycardia, requiring 2 to 3 L of oxygen, x-ray showing bilateral infiltrates consistent with CHF, high BNP, I requested ER to do CT scan of abdomen before her admission to rule out ileus because of history of C. difficile She is currently on vancomycin taper, Her creatinine is normal ER also ordered COVID When I saw her she was very drowsy, patient stated that she has not slept well for last 2 days, otherwise she is oriented to time place and person and able to tell above-mentioned details Review of Systems Const: Reports: change in appetite, fatigue and malaise; Denies: fever(s), chills or body aches Eyes: Denies: change in vision ENMT: Denies: throat pain Card: Reports: dyspnea on exertion; Denies: palpitations, irregular heart rhythm, swelling of feet/ankles, syncope or orthopnea Resp: Reports: dyspnea and productive cough; Denies: non-productive cough or wheezing GI: Reports: abdominal pain, nausea and constipation; Denies: vomiting, dysphagia or diarrhea : Denies: flank pain Musc: Denies: neck pain Skin/Breast: Denies: rash Neuro: Denies: headache(s) Psych: Denies: anxiety Endo: Denies: polyuria Jeremiah/Lymph: Denies: easy bruising All/Imm: Denies: urticaria Medications/Allergies Home Medications Medication Instructions Recorded Confirmed Last Taken Type aspirin [Aspir-81] 81 mg PO DAILY 04/09/19 08/24/19 Unknown History atorvastatin 80 mg PO QPM 04/09/19 08/24/19 Unknown History ferrous sulfate 325 mg PO DAILY 04/09/19 08/24/19 Unknown History furosemide 40 mg PO DAILY 04/09/19 08/24/19 Unknown History levothyroxine 75 mcg PO DAILY 04/09/19 08/24/19 08/23/19 History lidocaine 1 patch TOPICAL PRN 04/09/19 08/24/19 Unknown History metoprolol tartrate 25 mg PO BID 04/09/19 08/24/19 08/23/19 History pantoprazole 40 mg PO DAILY 04/09/19 08/24/19 Unknown History insulin aspart U-100 [Novolog See Rx Instructions .ROUTE 04/10/19 08/24/19 08/23/19 Rx Flexpen U-100 Insulin] .COMPLEX #0 ml 2 units venlafaxine 150 mg 150 mg PO DAILY #30 cap 07/05/19 08/24/19 08/23/19 Rx capsule,extended release 24 hr clonazepam 0.5 mg PO TID PRN 08/03/19 08/24/19 08/24/19 09:30 History quetiapine [Seroquel] 50 mg PO BEDTIME 08/03/19 08/24/19 08/23/19 History metoclopramide HCl 5 mg tablet 5 mg PO .qac #90 tab 08/10/19 08/24/19 Unknown Rx Lantus U-100 Insulin 30 unit SUBCUT DAILY 08/24/19 08/24/19 08/23/19 History Nyquil 2 cap PO BID PRN 08/24/19 08/24/19 08/24/19 History Vistaril 50 mg PO TID PRN 08/24/19 08/24/19 08/24/19 History acetaminophen [Tylenol Extra 1,000 mg PO PRN 08/24/19 08/24/19 08/24/19 History Strength] glimepiride 4 mg PO DAILY 08/24/19 08/24/19 08/23/19 History metformin 1,000 mg PO BID 08/24/19 08/24/19 08/24/19 History trazodone 150 mg PO BEDTIME 08/24/19 08/24/19 08/23/19 History vancomycin 125 mg PO BID 08/24/19 08/24/19 08/24/19 10:00 History Allergies Allergy/AdvReac Type Severity Reaction Status Date / Time nicotine [From [facility]] Allergy Severe ALGY-Hives Verified 08/24/19 17:04 PFSH Acute PFSH: Medical History Chronic back pain Chronic diarrhea Positive for C. difficile. 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 Prolonged taper. CKD (chronic kidney disease), stage II Depression GERD (gastroesophageal reflux disease) Hyperlipidemia Hypertension Hypothyroidism 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, recurrent severe without psychotic features Morbid obesity Post-traumatic stress disorder, chronic Surgical History H/O esophagogastroduodenoscopy H/O: hysterectomy History of bunionectomy bilateral Hx of cholecystectomy Status post colonoscopy Family History Other CAD (coronary artery disease) Cancer Diabetes Hypertension Denies family history of Anesthesia complication Bleeding disorder Social History Smoking and tobacco status: current every day smoker cigars Cigars smoked per week: 28 Smoking risk assessment/counseling performed?: No Alcohol intake: current Alcohol intake frequency: 3 or more drinks per day Alcohol type: beer Household members: spouse Housing: House Marital status: Current occupational status: retired History of recent travel: No Vitals/I&O/Wt Last Vital Signs Temp 98.7 F 08/24/19 17:05 Pulse 117 H 08/24/19 17:05 Resp 20 H 08/24/19 17:05 BP 165/99 08/24/19 17:05 Pulse Ox 98 08/24/19 17:05 Weight last 48 hrs Weight 78.925 kg Physical Exam Narrative: EXAM NARRATIVE: Head to toe examination Patient is very drowsy sleeping in her bed She is tachycardic, normal blood pressure Able to tell me above-mentioned HPI, will oriented to time place and person, Not able to assess her JVD She does not have lower bilateral lower extremity edema Her lungs have mild crackles at the bases otherwise no active respiratory distress, requiring 2 to 3 L of oxygen Abdomen has mild tenderness at right upper quadrant, bowel sounds are very sluggish, Neurologically nonfocal exam Somnolent No lower extremity edema gangrene or ulcer Data : 08/24/19 20:13 08/24/19 20:13 A&P Assessment and plan (1) Chronic diarrhea: Status: Acute (2) New onset of congestive heart failure: Status: Acute (3) Diabetic gastroparesis: Status: Acute (4) Morbid obesity: Status: Acute (5) Fatigue: Status: Acute (6) Adrenal insufficiency: Status: Acute (7) Hyponatremia: Status: Acute Additional A&P Information New onset CHF Patient is stating that she carries diagnosis of congestive heart failure on review of previous records her ejection fraction has been normal 60%, no diastolic dysfunction identified, She does not take any diuretics I would get echo in the morning, her previous echo was around September last year I do suspect sleep apnea to be the inciting factor as well Clinically no overt signs of fluid overload, clinical signs of dehydration, she is hyponatremic, would avoid using Lasix at this point, she was laying supine without any active discomfort however requiring 2 to 3 L Chronic diarrhea/C. difficile/prolonged tapering regimen Currently she is on twice a day vancomycin p.o. regimen which I would continue, However she has abdominal pain, and no bowel movement in last 2 days, would get CT abdomen to rule out ileus Her creatinine is not abnormal, her white count is not above 15,000, less likely to be fulminant C. difficile, would avoid using IV metronidazole at this point Acute hyponatremia due to dehydration and persistent diarrhea instead of fluid overload No clinical signs of fluid overload, I would go ahead and use normal saline at lower rate, if she requires more oxygenation or experiencing respiratory stress will discontinue fluids Bilateral infiltrates on the lungs are consistent with mild CHF exacerbation ED ordered COVID, my suspicion is low BiPAP overnight Adrenal insufficiency: She is hypertensive and tachycardic at this point, no need of stress dose steroids Type 2 diabetes: Consistent carb diet, moderate sliding Full code Consistent carb DVT prophylaxis low Attestations Medical Necessity Statement*: Anticipating stay in the hospital cross more than 2 midnights currently need investigation and management for new onset CHF and hyponatremia, need to rule out COVID Time Spent in Patient Care: 50 Coding Level of Care Code Acute Passenger Brakeman for Chg Fwd Diagnoses Chronic diarrhea K52.9 New onset of congestive heart failure I50.9 Diabetic gastroparesis E11.43; K31.84 Morbid obesity E66.01 Fatigue R53.83 Adrenal insufficiency E27.40 Hyponatremia E87.1
--- NOTE | 2019-08-24 22:18 | CTR_ITS ---
PROCEDURE INFORMATION: Exam: CT Abdomen And Pelvis With Contrast Exam date and time: 08/24/2019 10:32 PM Age: 64 years old Clinical indication: Abdominal pain; Prior surgery; Surgery type: Hysto, stimulator, gb; Additional info: Abdominal pain, c. Diff colitis TECHNIQUE: Imaging protocol: Computed tomography of the abdomen and pelvis with intravenous contrast. Radiation optimization: All CT scans at this facility use at least one of these dose optimization techniques: automated exposure control; mA and/or kV adjustment per patient size (includes targeted exams where dose is matched to clinical indication); or iterative reconstruction. Contrast material: OMNI 300; Contrast volume: 95 ml; Contrast route: IV; COMPARISON: CT abdomen pelvis w con* [id number] 08/03/2019 6:27 PM RADIATION DOSE METRICS: Total DLP: 1646.9 mGy-cm FINDINGS: Tubes, catheters and devices: Stimulator pack in the left buttock region with lead extending into the dorsal thoracic spinal canal. Lungs: Patchy ground-glass opacities have worsened in both lung bases. Liver: Normal. No mass. Gallbladder and bile ducts: Cholecystectomy. The bile ducts are normal. Pancreas: Normal. No ductal dilation. Spleen: Normal. No splenomegaly. Adrenals: Stable thickening of the bilateral adrenal bodies, most likely hyperplasia. Kidneys and ureters: Stable 1 cm low-density in the right kidney, Hounsfield units less than 20. The left kidney is normal. Stomach and bowel: Scattered gas and mild amount of stool in the colon. No visible wall thickening. Mild diverticulosis of the sigmoid colon. The stomach and small bowel are unremarkable. Appendix: The appendix is not visualized. No secondary signs of appendicitis. Intraperitoneal space: Unremarkable. No free air. No significant fluid collection. Vasculature: Unremarkable. No abdominal aortic aneurysm. Lymph nodes: Unremarkable. No enlarged lymph nodes. Bladder: Unremarkable as visualized. Reproductive: The uterus and ovaries are absent. Bones/joints: Scoliosis and degenerative changes of the spine. No compression fracture. Degenerative changes of the hips, right greater than left. Soft tissues: Unremarkable. CT/CT abdomen pelvis w con* [id number] IMPRESSION: 1. Worsened atypical pneumonia versus pulmonary edema in the lung bases. 2. No acute abnormality identified in the abdomen or pelvis. 3. Mild diverticulosis of the distal colon. No evidence to suggest active colitis. Radiation Dose CTDIVOL = (mGy): DLP = 1646.9 (mGy-cm)
[2019-08-24] MEDS: iohexol 300 mg/mL 100 mL Btl IV (22:43)
[2019-08-24] MEDS: cefTRIAXone 2,000 MG in sodium chloride 0.9% (plus) 50 ML 100 MG IV (23:30)
[2019-08-24 23:45] LABS: ABG PCO2 43.5 mmHg (35-45); ABG PH Result 7.45 (7.35-7.45); Arterial Blood Gas Hematocrit 32.3 % (37-47); Base Excess ABG 5.3 mmol/L (-2.0-2.0); Blood Gas Allen Test Pos; Blood Gas Sample Site Radial, right; Blood Gas Sample Type Arterial; HCO3 ABG 29.9 mmol/L (22-26); Oxygen Device NC; PO2 ABG 80.6 mmHg (80.0-100.0)
[2019-08-25] VITALS (26 sets, daily range): BP systolic 63–182; BP diastolic 40–116; PULSE 85–120; RESP 16–31; TEMP 36.9–37.2; O2SAT 94–100
[2019-08-25] MEDS: azithromycin 500 MG in sodium chloride 0.9% 250 ML 250 MG IV (00:10)
[2019-08-25 00:24] LABS: Glucose Point of Care 177 mg/dL (70-110)
--- NOTE | 2019-08-25 02:34 | CTR_ITS ---
PROCEDURE INFORMATION: Exam: CT Head Without Contrast Exam date and time: 08/25/2019 2:34 AM Age: 64 years old Clinical indication: Injury or trauma; Fall; Initial encounter; Blunt trauma (contusions or hematomas) and puncture wound; Without loss of consciousness; Without residual foreign body; Forehead; Additional info: Fall/injury TECHNIQUE: Imaging protocol: Computed tomography of the head without contrast. Radiation optimization: All CT scans at this facility use at least one of these dose optimization techniques: automated exposure control; mA and/or kV adjustment per patient size (includes targeted exams where dose is matched to clinical indication); or iterative reconstruction. COMPARISON: CT head wo con* [id number] 04/12/2019 10:23 PM RADIATION DOSE METRICS: Total DLP: 839.44 mGy-cm FINDINGS: Brain: There are no areas of abnormally increased or decreased brain parenchymal attenuation. No abnormal intra-axial or extra-axial fluid collections are identified. There is no midline shift. No intracranial hemorrhage identified. Ventricles: The ventricles and sulci are mildly and diffusely prominent, compatible with global brain volume loss. Bones/joints: Unremarkable as visualized. Sinuses: Small mucus retention cyst or polyp in the right frontal sinus. Mastoid air cells: Visualized mastoid air cells are well aerated. Soft tissues: Unremarkable. CT/CT head wo con* [id number] IMPRESSION: 1. No acute intracranial abnormality identified. Radiation Dose CTDIVOL = (mGy): DLP = 839.44 (mGy-cm)
[2019-08-25 02:41] LABS: Lactic Acid level (Lactate) 1.1 mmol/L (0.5-2.2)
[2019-08-25] MEDS: lidocaine-prilocaine cream 5 gm 1 APPLIC TOPICAL (02:50)
--- NOTE | 2019-08-25 02:58 | CTR_ITS ---
PROCEDURE INFORMATION: Exam: CT Chest Without Contrast Exam date and time: 08/25/2019 2:58 AM Age: 64 years old Clinical indication: Injury or trauma; Fall; Initial encounter; Blunt trauma (contusions or hematomas); Patient HX: CO bilat rib pain; Additional info: Fall/injury TECHNIQUE: Imaging protocol: Computed tomography of the chest without contrast. Radiation optimization: All CT scans at this facility use at least one of these dose optimization techniques: automated exposure control; mA and/or kV adjustment per patient size (includes targeted exams where dose is matched to clinical indication); or iterative reconstruction. COMPARISON: CR XR chest 1V portable [id number] 08/24/2019 5:45 PM RADIATION DOSE METRICS: Total DLP: 925.49 mGy-cm FINDINGS: Tubes, catheters and devices: There is an epidural neurostimulator with leads positioned at T7-T8. Lungs: There are extensive patchy geographic areas of ground-glass opacity in the lower lungs bilaterally, similar to the findings on 08/24/2019. Pleural space: There is no pleural effusion or pneumothorax. Heart: There is trace pericardial effusion. Heart size is normal. There is moderate coronary artery calcification. Mediastinum: There is no mediastinal hematoma. Aorta: There is moderate aortic atherosclerotic disease. There is no aortic aneurysm. Lymph nodes: There is no mediastinal or hilar lymphadenopathy. Liver: There is a nonspecific bilobed liver lesion in the central left lobe adjacent to the portal vein measuring 2.9 x 1.3 cm. The lesion demonstrates enhancement when compared with the abdomen CT obtained yesterday. Adrenals: There is hypertrophy of the left adrenal gland. Bones/joints: Moderate degenerative disease at the left shoulder. There are multiple healed right lower rib fractures. No acute fracture. Soft tissues: The extrathoracic soft tissues are unremarkable. CT/CT chest wo con [id number] IMPRESSION: 1. No sign of significant traumatic injury in the thorax. 2. Nonspecific 2.9 cm liver lesion, new since 01/12/2018. Consider follow-up nonemergent liver MRI. 3. Nonspecific bilateral lower lung opacities. Possible infection, edema, or interstitial disease. Radiation Dose CTDIVOL = (mGy): DLP = 925.49 (mGy-cm)
--- NOTE | 2019-08-25 03:23 | W.ED.SOB ---
HPI - SOB/Dyspnea General: Chief Complaint: Shortness of Breath/Dyspnea Stated Complaint: SOB, CDIFF Time Seen by Provider: 08/24/19 17:12 History of Present Illness: Severity: moderate Exacerbating factors: nothing Relieving factors: nothing Treatment prior to arrival: none PFSH ED PFSH: Medical History (Updated 08/25/19 @ 00:33 by Markell Fernández MD, [facility] [place]) C. 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, recurrent severe without psychotic features Morbid obesity Post-traumatic stress disorder, chronic Surgical History H/O esophagogastroduodenoscopy H/O: hysterectomy History of bunionectomy bilateral Hx of cholecystectomy Status post colonoscopy Family History Other CAD (coronary artery disease) Cancer Diabetes Hypertension Denies family history of Anesthesia complication Bleeding disorder Social History Smoking and tobacco status: current every day smoker cigars Cigars smoked per week: 28 Smoking risk assessment/counseling performed?: No Alcohol intake: current Alcohol intake frequency: 3 or more drinks per day Alcohol type: beer Household members: spouse Housing: House Marital status: Current occupational status: retired History of recent travel: No Procedures Laceration Laceration 1: Site: face Side (If applicable): right Size (cm): 2 Description: stellate Depth: simple, single layer Local Anesthetic: lidocaine 1% Pre-repair: wound explored, irrigated extensively and deep structures intact Skin layer closed with: nylon Size (cm): 4-0 Number of sutures: 2 Course Vital Signs: Vital signs: Vital Signs Temperature 98.7 F 08/24/19 17:05 Pulse Rate 117 H 08/24/19 17:05 Respiratory Rate 20 H 08/24/19 17:05 Blood Pressure 165/99 08/24/19 17:05 Pulse Oximetry 98 08/24/19 17:05 MDM - SOB/Dyspnea MDM Narrative: Medical decision making narrative: Asked by nursing to see the patient after she fell in the room. It was witnessed. She had no loss of consciousness but she had a small area on the right temporal part of her scalp with a laceration. I notified Dr. Murdock who agrees to the CT of the head and C-spine. The wound was closed by me please see my procedure note. Following the CTs and further management will be determined by the inpatient hospitalist team. Lab Data: Labs: Lab Results 08/24/19 08/24/19 08/24/19 Range/Units 18:00 18:00 20:13 WBC 13.3 H (4.0-10.0) 10^3/ uL RBC 4.27 (4.1-5.3) 10^6/u L Hgb 12.1 (11.5-15.3) g/dL Hct 36.0 L (37.0-47.0) % MCV 84.3 (81-99) fL MCH 28.3 (28.0-34.0) pg MCHC 33.6 (30.0-36.0) g/dL RDW 16.9 H (12.1-15.1) % Plt Count 483 H (130-400) 10^3/c mm MPV 9.3 (7.4-10.4) fL Neut % (Auto) 72.3 % Lymph % (Auto) 19.0 % [place] % (Auto) 7.7 % Eos % (Auto) 0.5 % Baso % (Auto) 0.2 % Neut # (Auto) 9.6 H (1.8-7.7) 10^3/u L Lymph # (Auto) 2.5 (0.8-4.8) 10^3/u L [place] # (Auto) 1.0 H (0.2-0.9) 10^3/u L Eos # (Auto) 0.1 (0.0-0.8) 10^3/u L Baso # (Auto) 0.0 (0.0-0.1) 10^3/u L Nucleated RBC % (a uto) 0 % Nucleated RBCs # 0.0 /100WBC Sodium (136-145) mmol/L Potassium (3.5-5.1) mmol/L Chloride (98-107) mmol/L Carbon Dioxide (22-29) mmol/L Anion Gap (5-19) BUN (8-23) mg/dL Creatinine (0.5-0.9) mg/dL GFR Calculation (90-130) mL/min Glucose (65-115) mg/dL Calculated Osmolal ity (285-295) mOsm/k g Lactic Acid (0.5-2.2) mmol/L Calcium (8.5-10.5) mg/dL Total Bilirubin (0.15-1.2) mg/dL AST (0-32) U/L ALT (0-33) U/L Alkaline Phosphata se (35-105) IU/L NT-Pro-B Natriuret Pep (0-125) pg/mL Total Protein (6.6-8.7) g/dL Albumin (3.5-5.2) g/dL Globulin (1.3-4.6) g/dL Lipase (13-60) U/L Influenza Type A A g Negative (Negative) Influenza Type B A g Negative (Negative) Group A Strep Rapi d Negative (Negative) 08/24/19 08/24/19 Range/Units 20:13 20:13 WBC (4.0-10.0) 10^3/ uL RBC (4.1-5.3) 10^6/u L Hgb (11.5-15.3) g/dL Hct (37.0-47.0) % MCV (81-99) fL MCH (28.0-34.0) pg MCHC (30.0-36.0) g/dL RDW (12.1-15.1) % Plt Count (130-400) 10^3/c mm MPV (7.4-10.4) fL Neut % (Auto) % Lymph % (Auto) % [place] % (Auto) % Eos % (Auto) % Baso % (Auto) % Neut # (Auto) (1.8-7.7) 10^3/u L Lymph # (Auto) (0.8-4.8) 10^3/u L [place] # (Auto) (0.2-0.9) 10^3/u L Eos # (Auto) (0.0-0.8) 10^3/u L Baso # (Auto) (0.0-0.1) 10^3/u L Nucleated RBC % (a uto) % Nucleated RBCs # /100WBC Sodium 124 L (136-145) mmol/L Potassium 3.5 (3.5-5.1) mmol/L Chloride 82 L (98-107) mmol/L Carbon Dioxide 28 (22-29) mmol/L Anion Gap 17.5 (5-19) BUN 4 L (8-23) mg/dL Creatinine 0.5 (0.5-0.9) mg/dL GFR Calculation 123.8 (90-130) mL/min Glucose 163 H (65-115) mg/dL Calculated Osmolal ity 257 L (285-295) mOsm/k g Lactic Acid 1.2 (0.5-2.2) mmol/L Calcium 9.3 (8.5-10.5) mg/dL Total Bilirubin 0.4 (0.15-1.2) mg/dL AST 15 (0-32) U/L ALT 12 (0-33) U/L Alkaline Phosphata se 103 (35-105) IU/L NT-Pro-B Natriuret Pep 2582 H (0-125) pg/mL Total Protein 7.2 (6.6-8.7) g/dL Albumin 3.9 (3.5-5.2) g/dL Globulin 3.3 (1.3-4.6) g/dL Lipase 21 (13-60) U/L Influenza Type A A g (Negative) Influenza Type B A g (Negative) Group A Strep Rapi d (Negative) Discharge Plan Discharge Patient Disposition: Admitted As Inpatient Admit Provider: Tian Murdock Clinical Impression: Acute hyponatremia Pneumonia Qualifiers: Pneumonia type: due to unspecified organism Laterality: bilateral Lung location: lower lobe of lung Qualified Code(s): J18.9 - Pneumonia, unspecified organism Congestive heart failure Qualifiers: Heart failure type: unspecified Heart failure chronicity: acute Qualified Code(s): I50.9 - Heart failure, unspecified Condition: Stable Coding Level of Care Code ED Visitor Services Technician for Navid Simons
[2019-08-25] MEDS: sodium chloride 0.9% 1,000 ML 30 ML IV (03:39)
[2019-08-25] MEDS: enoxaparin 40 mg/0.4 mL Syringe SUBCUT (03:40)
--- NOTE | 2019-08-25 03:57 | PC.NURSE ---
Pt refusing marian catheter, insisting she will use bedside commode with to assist. Pt easily agitated, insisting that she is cold, not wanting to stay in bed. Pt and informed to leave bedside commode on pt's left side due to peripheral in pt's L breast and IV antibiotics infusing. During IV antibiotic change, IV site patent and easy to flush. Second IV infusing began without any further difficulties. After report called to ICU, preparations made to transport pt to ICU. When IV site checked for patency, it was noted that both IV catheters were removed and medication was infusing on to the floor. When asked about the IV sites, neither pt or spouse could give and explanation. Bedside commode was on opposite side of IV pole. Pt's spouse stated it was easier for her . ICU notified lack of IV access, and possibility of having orders for a central line in place. ICU requested that be made available in ED prior to transport. Multiple attempts made by ED staff to gain IV access, pt becoming angry and uncooperative, causing failure to maintain peripheral IVs. Phlebotomy attempted to draw fro a second lactic acid test. Pt refusing any and all attempts to start an IV or obtain blood. Attending physician informed of pt's refusal. Attending physician contacted admitting physician regarding access. Per Dr Mooney, Dr Murdock approves of pt being admitted to ICU with IV access obtained at a latter time. Dr Mooney spoke with the pt, who stated she will only have a PICC line inserted at a latter date, and the exec. creative director had only one more time to stick me for blood While in the patient's room with 2 phlebotomists present, pt stated great urgency in wanting to use the restroom. While assisting the pt from the bed, pt did not wait for R foot to be planted on the floor prior to bearing weight. Floor was damp from the antibiotics that did not correctly infuse. Pt began to slide down, and was guided to the floor. No LOC noted. Only injury observed was puncture wound on the Right side of head, sutured without difficulties. ICU staff updated on pt's condition. Upon arrival at ICU, pt had urgent demand again to use the restroom. Pt informed of marina options by staff with warehouse distribution associate present. Pt consented to indwelling catheter. Pt care transferred to ICU staff.
[2019-08-25 06:31] LABS: Basophils % 0.2 %; Eosinophils % 0.4 %; Hematocrit 30.9 % (37.0-47.0); Hemoglobin 10.1 g/dL (11.5-15.3); Lymphocytes # 1.8 10^3/uL (0.8-4.8); Lymphocytes % 17.1 %; Mean Corpuscular HGB Conc 32.7 g/dL (30.0-36.0); Mean Corpuscular Hemoglobin 28.2 pg (28.0-34.0); Mean Corpuscular Volume 86.3 fL (81-99); Mean Platelet Volume 8.8 fL (7.4-10.4); Monocytes # 0.9 10^3/uL (0.2-0.9); Monocytes % 8.3 %; Neutrophils # 7.7 10^3/uL (1.8-7.7); Neutrophils % 73.6 %; Nucleated Red Blood Cells % 0 %; Platelet Count 436 10^3/cmm (130-400); Red Blood Count 3.58 10^6/uL (4.1-5.3); Red Cell Distribution Width 16.9 % (12.1-15.1); White Blood Count 10.5 10^3/uL (4.0-10.0)
[2019-08-25 06:45] LABS: Anion Gap 13.2 (5-19); Blood Urea Nitrogen 3 mg/dL (8-23); Calcium 8.6 mg/dL (8.5-10.5); Carbon Dioxide 29 mmol/L (22-29); Chloride 89 mmol/L (98-107); Glomerular Filtration Rate 160.2 mL/min (90-130); Glucose 174 mg/dL (65-115); Osmolality Calculated 266 mOsm/kg (285-295); Potassium 3.2 mmol/L (3.5-5.1); Sodium 128 mmol/L (136-145)
--- NOTE | 2019-08-25 06:50 | PC.NURSE ---
Report received from DEBRA Cook. Pt recently arrived from Ed. Pt is Covid pending and contact precautions for C-diff. Lung sounds diminished and has nasty cough. Pt switches between BiPap and 4lpm/NC. She has excoriation under her breasts, that per pt, they had been putting Icy hot on at home. Iv started in left breat, 20 gauge. Pt has marina.
[2019-08-25 09:15] LABS: Glucose Point of Care 171 mg/dL (70-110)
--- NOTE | 2019-08-25 10:00 | PC.NURSE ---
Am Meds administered late due to caring for other patients and frequent phone calls from other family.
[2019-08-25] MEDS: levothyroxine 150 mcg Tablet 75 MCG PO (10:02)
[2019-08-25] MEDS: aspirin 81 mg EC Tablet PO (10:03)
[2019-08-25] MEDS: pantoprazole DR 40 mg Tablet PO (10:03)
[2019-08-25] MEDS: venlafaxine ER (24HR) 150 mg Capsule PO (10:03)
[2019-08-25] MEDS: metoprolol tartrate 50 mg Tablet 25 MG PO ×2 (10:03→18:46)
[2019-08-25] MEDS: insulin glargine 100 units/1 mL 30 UNIT SUBCUT (10:33)
[2019-08-25] MEDS: hyDROXYzine 25 mg Capsule 50 MG PO (11:32)
[2019-08-25 13:20] LABS: Glucose Point of Care 168 mg/dL (70-110)
--- NOTE | 2019-08-25 15:25 | PM.PN ---
Subjective Subjective: Interval history: Overnight labs and H&P reveiwed. leukocytosis improving. Na 128, K 3.2 , continues to c/o nausea, bad tatse in mouth Medications: Reviewed: Yes Vitals/I&O/Wt Last Vital Signs Temp 99 F 08/25/19 13:00 Pulse 91 08/25/19 13:00 Resp 21 H 08/25/19 13:00 BP 176/115 08/25/19 13:00 Pulse Ox 96 08/25/19 13:00 Weight last 48 hrs Weight 78.925 kg Physical Exam Narrative: EXAM NARRATIVE: GEN: Awake, alert and oriented, motor tics noted CVS: S1S2 N RS: B/L coarse breath sounds+ Abd: Soft, nt/nd , bs+ MANAGER OF HUMAN RESOURCES: no focal neuro deficits Data : 08/25/19 06:25 08/25/19 06:25 A&P Assessment and plan (1) Chronic diarrhea: Status: Acute (2) New onset of congestive heart failure: Status: Acute (3) Diabetic gastroparesis: Status: Acute (4) Morbid obesity: Status: Acute (5) Fatigue: Status: Acute (6) Adrenal insufficiency: Status: Acute (7) Hyponatremia: Status: Acute Additional A&P Information 1. Possible new onset CHF Patient is stating that she carries diagnosis of congestive heart failure on review of previous records her ejection fraction has been normal 60%, no diastolic dysfunction identified, She does not take any diuretics CV echo ordered, pending Start Lasix 40mg iv qd today given crackles on exam today, elevated BNP and edema noted on CXR 2. Chronic diarrhea/C. difficile/prolonged tapering regimen Currently she is on twice a day vancomycin p.o. regimen, given c/o abdominal pain, increase to 125mg po q6h CT abdomen without signs of ileus 3. Acute hyponatremia which may be related to fluid overload, stop IVF, start lasix 4. Adrenal insufficiency: She is supposed to be on Prednisone 5mg po qd. however I do not see it on her home list of medications. Patient is unsure if she has been taking it recently. Restarted Prednisone 5mg qd 5. Type 2 diabetes: Consistent carb diet, moderate sliding 6. Notable tic like facial movements on exam with unclear inciting factor, wonder if may be effexor side effect or from holding seroquel and klonopin. Reduce dose to 100mg po qd 7. Intertrigo: nystatin powder to breast folds Full code Consistent carb DVT prophylaxis low Attestations Medical Necessity Statement*: Need for iv diuresis, signs of fluid overload, pending echocardiogram, developing tic like facial movements Coding Level of Care Code Acute Instructor Extension Work for Chg Fwd Diagnoses Chronic diarrhea K52.9 New onset of congestive heart failure I50.9 Diabetic gastroparesis E11.43; K31.84 Morbid obesity E66.01 Fatigue R53.83 Adrenal insufficiency E27.40 Hyponatremia E87.1
--- NOTE | 2019-08-25 17:03 | P.PN_ITS ---
Subjective Subjective: Interval history: Overnight labs and H&P reveiwed. leukocytosis improving. 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 Possible new onset CHF Patient is stating that she carries diagnosis of congestive heart failure on review of previous records her ejection fraction has been normal 60%, no angel tolic dysfunction identified, She is on lasix per home meds review CV echo ordered, pending 2. Chronic diarrhea/C. difficile/prolonged tapering regimen Currently she is on twice a day vancomycin p.o. regimen, given c/o abdominal pain, increase to 125mg po q6h CT abdomen without signs of ileus 3. Acute hyponatremia which may be related to dehydration 4. Adrenal insufficiency: She is supposed to be on Prednisone 5mg po qd. however I do not see it on her home list of medications. Patient is unsure if she has been taking it recently. Restarted Prednisone 5mg qd 5. Type 2 diabetes: Consistent carb diet, moderate sliding Full code Consistent carb DVT prophylaxis low Attestations Medical Necessity Statement*: awaiting improvement in hyponatremia, echocardiogram Coding Level of Care Code Acute Chronometer Assembler And Adjuster for Chg Fwd Diagnoses Chronic diarrhea K52.9 New onset of congestive heart failure I50.9 Diabetic gastroparesis E11.43; K31.84 Morbid obesity E66.01 Fatigue R53.83 Adrenal insufficiency E27.40 Hyponatremia E87.1
[2019-08-25 17:18] LABS: Glucose Point of Care 137 mg/dL (70-110)
[2019-08-25] MEDS: predniSONE 5 mg Tablet PO (18:45)
--- NOTE | 2019-08-25 19:15 | PC.NURSE ---
Report given to DEBRA Lopez. Pt alert and oriented. She has been getting in/out of bed despite bed alarm and frequent reminders to please use call light. She uses the call light rarely preferring to yell out. Pt has been been encouraged persistently to use the call light especially in light of her recent fall in ED. Pt has had numerous bouts of diarrhea.She has a poor appetite. Covid testing , negative.
--- NOTE | 2019-08-25 20:08 | PC.NURSE ---
dr galaviz putting in transfer orders to move to [facility].
--- NOTE | 2019-08-25 20:16 | PC.NURSE ---
report called to [facility] nurse. Pt going to 258.
[2019-08-25 20:57] LABS: Glucose Point of Care 266 mg/dL (70-110)
--- NOTE | 2019-08-26 01:42 | USCV_ITS ---
Ingris Mendosa Age: 64 Gender: F : 1955 Exam Date: 08/26/2019 15:00 Ordering Phys: Tian Murdock MD Technologist: Kiara Ortega [place] [facility] [place]: BP: / HR: 90 Rhythm: Sinus Technical Quality: Very technically difficult study MEASUREMENTS (Male / Female) Normal Values 2D ECHO LV Diastolic Diameter PLAX 4.2 cm 4.2 - 5.9 / 3.9 - 5.3 cm LV Systolic Diameter PLAX 3.1 cm LV Chamber Size 2.4 cm IVS Diastolic Thickness 1.1 cm 0.6 - 1.0 / 0.6 - 0.9 cm IVS Systolic Thickness 1.3 cm LVPW Diastolic Thickness 1.4 cm 0.6 - 1.0 / 0.6 - 0.9 cm LVPW Systolic Thickness 1.3 cm RV Chamber Size 2.2 cm LVOT Diameter 2.1 cm LV Ejection Fraction 2D Teich 52.9 % LV Ejection Fraction MOD 2C 49.5 % LV Ejection Fraction 2C AL 44.0 % LA Diameter 4.4 cm LA Width 2.9 cm LA Height 2.9 cm RA Width 2.9 cm RA Height 3.3 cm Aorta at Sinotubular Diameter 2.8 cm M-MODE LV Diastolic Diameter MM 5.5 cm 4.2 - 5.9 / 3.9 - 5.3 cm LV Systolic Diameter MM 3.6 cm LV Ejection Fraction MM Teich 63.8 % IVS Diastolic Thickness MM 1.1 cm 0.6 - 1.0 / 0.6 - 0.9 cm IVS Systolic Thickness MM 1.4 cm LVPW Diastolic Thickness MM 1.0 cm 0.6 - 1.0 / 0.6 - 0.9 cm LVPW Systolic Thickness MM 1.7 cm RV Diastolic Diameter MM 1.4 cm Aortic Annulus Diameter 2.4 cm LA Ao Ratio MM 1.8 MV E Point Septal Separation 0.6 cm DOPPLER AV Peak Velocity 141.0 cm/s LVOT Peak Velocity 75.0 cm/s AV Area Cont Eq vti 1.8 cm squared AV Area Cont Eq pk 1.8 cm squared MV Area PHT 5.0 cm squared Mitral E to A Ratio 0.9 MV E' Velocity 9.0 cm/s Mitral E to MV E' Ratio 11.2 Mitral E to LV E' Lateral Ratio 11.7 Mitral E to LV E' Septal Ratio 10.9 TR Peak Velocity 276.0 cm/s TR Peak Gradient 30.5 mmHg TR Mean Velocity 183.9 cm/s TR Mean Gradient 17.0 mmHg TR Velocity Time Integral 72.8 cm TV Peak E Velocity 64.0 cm/s Right Atrial Pressure 3.0 mmHg Pulmonary Artery Systolic Pressu 33.5 mmHg FINDINGS Left Ventricle Normal left ventricular cavity size. Normal left ventricular systolic function. No regional wall motion abnormalities. Left ventricular ejection fraction is estimated at 55 %. Grade I/IV diastolic dysfunction (abnormal relaxation filling pattern), normal to mildly elevated filling pressures. Right Ventricle The right ventricle is normal in size and function. Right Atrium The right atrium is normal in size. Left Atrium The left atrium is normal in size. Mitral Valve Structurally normal mitral valve without significant stenosis or prolapse. There is no mitral regurgitation. Aortic Valve Structurally normal aortic valve without significant sclerosis or stenosis. There is no aortic regurgitation. Tricuspid Valve Structurally normal tricuspid valve without significant stenosis or regurgitation. Pulmonary artery systolic pressure is normal. Pulmonic Valve Structurally normal pulmonic valve without significant stenosis. There is no pulmonic regurgitation. Pericardium Normal pericardium without effusion. Aorta Normal ascending aorta dimension. CONCLUSIONS 1-Normal left ventricular cavity size. Normal left ventricular systolic function. No regional wall motion abnormalities. Left ventricular ejection fraction is estimated at 55 %. Grade I/IV diastolic dysfunction (abnormal relaxation filling pattern), normal to mildly elevated filling pressures. 2-There is no pericardial effusion. 3-No significant valve abnormalities. 4-Pulmonary artery systolic pressure is within normal limits. 5-Right atrial pressure is around 5 mm of mercury. 6-When compared to the prior echocardiogram dated 09/21/2018 there is no significant change. Tian Powers MD (Electronically Signed) Final Date: 26 August 2019 18:12 S
[2019-08-26] MEDS: enoxaparin 40 mg/0.4 mL Syringe SUBCUT (01:51)
[2019-08-26 04:00] VITALS: BP 141/84; PULSE 95; RESP 18; TEMP 36.7; O2SAT 94
[2019-08-26 05:53] LABS: Glucose Point of Care 174 mg/dL (70-110)
[2019-08-26 07:37] VITALS: BP 155/83; PULSE 100; RESP 17; TEMP 36.6; O2SAT 93
[2019-08-26] MEDS: insulin glargine 100 units/1 mL 30 UNIT SUBCUT (08:15)
[2019-08-26] MEDS: aspirin 81 mg EC Tablet PO (08:15)
[2019-08-26] MEDS: levothyroxine 150 mcg Tablet 75 MCG PO (08:15)
[2019-08-26] MEDS: pantoprazole DR 40 mg Tablet PO (08:16)
[2019-08-26] MEDS: metoprolol tartrate 50 mg Tablet 25 MG PO ×2 (08:16→16:59)
[2019-08-26] MEDS: venlafaxine ER (24HR) 150 mg Capsule PO (08:17)
[2019-08-26] MEDS: predniSONE 5 mg Tablet PO (08:17)
[2019-08-26] MEDS: hyDROXYzine 25 mg Capsule 50 MG PO (08:18)
--- NOTE | 2019-08-26 10:33 | PC.RESP ---
Smoking Cessation information and a schedule of classes sent to patient.
[2019-08-26] MEDS: sodium chloride 0.9% 1,000 ML 30 ML IV (11:02)
[2019-08-26 11:12] LABS: Glucose Point of Care 108 mg/dL (70-110)
[2019-08-26 11:36] VITALS: RESP 18; O2SAT 94
[2019-08-26] MEDS: oxyCODONE-APAP 5-325 mg Tablet 1 TAB PO (11:36)
[2019-08-26 12:00] VITALS: BP 165/72; PULSE 90; RESP 17; TEMP 36.4; O2SAT 93
[2019-08-26 15:56] VITALS: BP 149/82; PULSE 83; RESP 17; TEMP 36.8; O2SAT 96
[2019-08-26 16:56] LABS: Glucose Point of Care 183 mg/dL (70-110)
[2019-08-26] MEDS: FUROsemide 10 mg/mL SDV 4mL 40 MG IVP (17:59)
[2019-08-26 19:19] VITALS: BP 157/87; PULSE 79; RESP 22; TEMP 36.7; O2SAT 98
[2019-08-26] MEDS: nystatin powder 15 gm Btl 1 APPLIC TOPICAL (22:13)
[2019-08-26] MEDS: trazodone 150 mg Tablet PO (22:13)
[2019-08-26] MEDS: quetiapine 25 mg Tablet 50 MG PO (22:13)
[2019-08-26] MEDS: CLONazepam 0.5 mg Tablet PO (22:14)
[2019-08-26 22:50] LABS: Glucose Point of Care 141 mg/dL (70-110)
[2019-08-27] VITALS (10 sets, daily range): BP systolic 91–144; BP diastolic 59–83; PULSE 81–117; RESP 17–22; TEMP 36.7–37.4; O2SAT 94–99
--- NOTE | 2019-08-27 06:29 | PC.NURSE ---
Shift Summary Pt has yelled out for her several times tonight instead of pushing her call light for help. Pt has been up and down from the bedside commode multiple with very little results. Pt c/o of being very hot and was sweaty at shift change, was given a fan and air turned down then c/o being cold the rest of the evening. Pt slept well after falling asleep between urgency of getting up to bathroom. Pt lost IV access, was stuck twice then refused to be stuck again until a later time. Pt had good urine output tonight. No c/o pain.
[2019-08-27 06:56] LABS: Glucose Point of Care 115 mg/dL (70-110)
[2019-08-27] MEDS: metoprolol tartrate 50 mg Tablet 25 MG PO ×2 (08:57→17:22)
[2019-08-27] MEDS: aspirin 81 mg EC Tablet PO (08:57)
[2019-08-27] MEDS: enoxaparin 40 mg/0.4 mL Syringe SUBCUT (08:57)
[2019-08-27] MEDS: levothyroxine 150 mcg Tablet 75 MCG PO (08:57)
[2019-08-27] MEDS: venlafaxine ER (24HR) 150 mg Capsule PO (08:57)
[2019-08-27] MEDS: pantoprazole DR 40 mg Tablet PO (08:58)
[2019-08-27] MEDS: nystatin powder 15 gm Btl 1 APPLIC TOPICAL ×2 (08:58→17:22)
[2019-08-27] MEDS: insulin glargine 100 units/1 mL 30 UNIT SUBCUT (08:58)
[2019-08-27] MEDS: predniSONE 5 mg Tablet PO (08:58)
--- NOTE | 2019-08-27 09:25 | PC.SOCIAL ---
IMM Page 2 of IMM given to patient. Initialed, dated, and timed and placed in chart.
[2019-08-27 11:16] LABS: Glucose Point of Care 165 mg/dL (70-110)
--- NOTE | 2019-08-27 12:57 | XRR_ITS ---
PROCEDURE INFORMATION: Exam: XR Chest, 1 View Exam date and time: 08/27/2019 12:59 PM Age: 64 years old Clinical indication: Fever; Additional info: Fever, pneumonia TECHNIQUE: Imaging protocol: XR of the chest Views: 1 view. COMPARISON: CR XR chest 1V portable [id number] 08/24/2019 5:45 PM FINDINGS: Lungs: No lobar consolidation. Previously visualized CHF and ground-glass opacities in the lungs have almost completely resolved. There is still some mild reticular density in the left lung base that may reflect some residual interstitial pneumonitis or interstitial CHF. Pleural space: Unremarkable. No pleural effusion. No pneumothorax. Heart/Mediastinum: Borderline cardiomegaly. Bones/joints: No acute abnormality. XR/XR chest 1V portable [id number] IMPRESSION: Improving CHF and ground-glass opacities compared to the prior exam. There is still some mild reticular density in the left lower lobe that may reflect residual interstitial edema or mild pneumonitis.
[2019-08-27] MEDS: levoFLOXacin 750 mg Tablet PO (13:30)
--- NOTE | 2019-08-27 13:55 | P.PN_ITS ---
Subjective Subjective: Interval history: Continues to feel very weak and deconsitioned. Tics till noticeable, however dont appear to bother patient. urine output 2.8 L with iv lasix. Patient refused am labs draw as she did not want to be stuck. Explained importance, repeated now. Tmax 99.2F. Diarrhea 2 episodes today. No abdominal pain. No new cough, chest pain, dyspnea. Hr 117 with minimal activity. 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: no focal neuro deficits EXT: no gross edema or tenderness Data : 08/25/19 06:25 08/25/19 06:25 Micro: Microbiology 08/27/19 13:16 Blood Culture - Preliminary Blood SPECIMEN COLLECTED 08/27/19 13:15 Blood Culture - Preliminary Blood SPECIMEN COLLECTED 08/24/19 18:00 Group A Streptococcus Rapid Screen - Final Throat A&P Assessment and plan (1) Diastolic heart failure: Status: Acute Qualifiers: Heart failure chronicity: acute on chronic Qualified Code(s): I50.33 - Acute on chronic diastolic (congestive) heart failure (2) Chronic diarrhea: Status: Acute (3) Diabetic gastroparesis: Status: Acute (4) Morbid obesity: Status: Acute (5) Fatigue: Status: Acute Qualifiers: Fatigue type: unspecified Qualified Code(s): R53.83 - Other fatigue (6) Adrenal insufficiency: Status: Acute (7) Hyponatremia: Status: Acute Additional A&P Information 64 year old lady with multiple comorbidities admitted on 08/23 with h/o multiple admissions c/o generalized weakness, lethargy and shortness of breath. Diagnostics in the ER revealed hypertension, tachycardia, requiring 2 to 3 L of oxygen, x-ray showing bilateral infiltrates consistent with CHF, high BNP. She required Bipap for a short time. Differentials given the above presentations include - Diastolic heart failure vs sleep apnea given body habitus as evidenced by elevated BNP, B/L infitrates seen on CT which seem most consistent with pulmonary edema ECHO performed LVEF 55%, grade 1 diatolic dysfunction with mornal to mildly elevated filling pressures. PASP WNL. CT chest w/o contrast with Nonspecific bilateral lower lung opacities. COVID 19 ruled out by negative RT-PCR Now with temp up to 99.1, still with low suspicion for pneumonia, however will obtain repeat CXR now to evalute for nay new infiltrates. May be developing atelactasis or UTI given presence of Magana. Check urine legionella antigen now check blood culture Elevate head of bed to help with CHF and also minimize risk of aspiration Spirometer at bedside Continue lasix IV 40mg daily and monitor for improvement 2. Chronic diarrhea/C. difficile/prolonged tapering regimen Increase vancomycin po to q6h while she remains admitted, can resume taper regimen on discharge if remains without diarrhea CT abdomen 08/23 without evidence of ileus currently 2 epidoes per day 3. Acute hyponatremia which may be related to fluid overload from CHF, continue iv lasix 4. Adrenal insufficiency: She is supposed to be on Prednisone 5mg po qd. however I do not see it on her home list of medications. Patient is unsure if she has been taking it recently. Restarted Prednisone 5mg qd 5. Type 2 diabetes: Consistent carb diet, moderate sliding scale insulin , currently well controlled 6. Fatigue and deconditioning likely from multiple comorbidities and recurrent admissions : PT/OT eval. Full code Consistent carb diet DVT prophylaxis : lovenox 40mg qd Attestations Medical Necessity Statement*: ongoing need for iv diuresis, low grade temp, sepsis w/up Coding Level of Care Code Acute Station Usher for Chg Fwd Diagnoses Diastolic heart failure I50.33 Heart failure chronicity: acute on chronic Chronic diarrhea K52.9 Diabetic gastroparesis E11.43; K31.84 Morbid obesity E66.01 Fatigue R53.83 Fatigue type: unspecified Adrenal insufficiency E27.40 Hyponatremia E87.1
--- NOTE | 2019-08-27 13:59 | USR_ITS ---
PROCEDURE INFORMATION: Exam: US Duplex Lower Extremity Veins, Bilateral Exam date and time: 08/27/2019 1:59 PM Age: 64 years old Clinical indication: Swelling (edema) of limb; Lower extremity, bilateral; Additional info: Evalute for dvt TECHNIQUE: Imaging protocol: Real-time duplex ultrasound of the extremities with 2-D bob scale, color Doppler flow and spectral waveform analysis with image documentation. Complete exam focused on the bilateral lower extremity veins. COMPARISON: No relevant prior studies available. FINDINGS: Right deep veins: Unremarkable. The common femoral, femoral, proximal profunda femoral and popliteal veins are patent without thrombus. Normal Doppler waveforms. Normal compressibility and/or augmentation response. Right superficial veins: Saphenofemoral junction is patent without thrombus. Left deep veins: Unremarkable. The common femoral, femoral, proximal profunda femoral and popliteal veins are patent without thrombus. Normal Doppler waveforms. Normal compressibility and/or augmentation response. Left superficial veins: Saphenofemoral junction is patent without thrombus. Soft tissues: Unremarkable. US/CV venous duplex [facility] [id number] IMPRESSION: No evidence of deep vein thrombosis.
[2019-08-27 14:19] LABS: Cortisol Random 5.21 mcg/dL (2.47-19.5)
[2019-08-27 17:18] LABS: Glucose Point of Care 174 mg/dL (70-110)
[2019-08-27] MEDS: FUROsemide 40 mg Tablet 60 MG PO (17:20)
[2019-08-27 18:07] LABS: Basophils % 0.3 %; Eosinophils # 0.1 10^3/uL (0.0-0.8); Eosinophils % 1.2 %; Hemoglobin 10.9 g/dL (11.5-15.3); Lymphocytes # 2.3 10^3/uL (0.8-4.8); Lymphocytes % 24.8 %; Mean Corpuscular Hemoglobin 28.1 pg (28.0-34.0); Mean Corpuscular Volume 85.1 fL (81-99); Mean Platelet Volume 8.8 fL (7.4-10.4); Neutrophils # 5.7 10^3/uL (1.8-7.7); Neutrophils % 62.2 %; Nucleated Red Blood Cells % 0 %; Platelet Count 525 10^3/cmm (130-400); Red Blood Count 3.88 10^6/uL (4.1-5.3); White Blood Count 9.1 10^3/uL (4.0-10.0)
[2019-08-27 18:16] LABS: Alanine Aminotransferase 22 U/L (0-33); Albumin Level 2.8 g/dL (3.5-5.2); Alkaline Phosphatase 84 IU/L (35-105); Anion Gap 15.8 (5-19); Aspartate Amino Transferase 29 U/L (0-32); Blood Urea Nitrogen 5 mg/dL (8-23); Calcium 7.9 mg/dL (8.5-10.5); Carbon Dioxide 28 mmol/L (22-29); Chloride 81 mmol/L (98-107); Glucose 146 mg/dL (65-115); Osmolality Calculated 252 mOsm/kg (285-295); Sodium 122 mmol/L (136-145); Total Bilirubin 0.2 mg/dL (0.15-1.2); Total Protein 5.8 g/dL (6.6-8.7)
[2019-08-27 18:28] LABS: Thyroid Stimulating Hormone 0.83 uIU/mL (0.27-4.20)
[2019-08-27 18:37] LABS: Potassium 2.8 mmol/L (3.5-5.1)
[2019-08-27] MEDS: oxyCODONE-APAP 5-325 mg Tablet 1 TAB PO ×2 (18:43→21:14)
[2019-08-27] MEDS: trazodone 150 mg Tablet PO (20:09)
[2019-08-27] MEDS: quetiapine 25 mg Tablet 50 MG PO (20:09)
[2019-08-27] MEDS: CLONazepam 0.5 mg Tablet PO (21:14)
[2019-08-27 21:21] LABS: Glucose Point of Care 59 mg/dL (70-110)
--- NOTE | 2019-08-27 21:24 | PC.NURSE ---
pt blood sugar check to reveal 59 - two orange juices, two cheese sticks, and crackers were given, will recheck in 1 hour.
[2019-08-27] MEDS: hydrocortisone 100 mg/2 mL SDV 50 MG IVP (23:04)
[2019-08-27] MEDS: potassium chloride oral liq 20 mEq/15 mL UDC 40 MEQ PO (23:05)
[2019-08-28] VITALS (9 sets, daily range): BP systolic 116–133; BP diastolic 66–79; PULSE 72–107; RESP 15–24; TEMP 36.4–36.8; O2SAT 92–98
[2019-08-28] MEDS: lidocaine 1% INJ 20 mL 5 ML IV (00:37)
[2019-08-28] MEDS: potassium chloride premix 40 MEQ/100 ML PREMIX 25 MEQ IV (00:37)
[2019-08-28 00:56] LABS: Glucose Point of Care 127 mg/dL (70-110)
--- NOTE | 2019-08-28 01:31 | PC.NURSE ---
after orange juice and snack rechecked blood sugar after 1 hour and it was 127. Phys notified - no orders
[2019-08-28] MEDS: oxyCODONE-APAP 5-325 mg Tablet 1 TAB PO ×3 (04:12→21:50)
[2019-08-28 05:28] LABS: Basophils % 0.4 %; Eosinophils % 0.2 %; Hematocrit 32.2 % (37.0-47.0); Hemoglobin 10.7 g/dL (11.5-15.3); Lymphocytes # 0.9 10^3/uL (0.8-4.8); Lymphocytes % 15.6 %; Mean Corpuscular HGB Conc 33.2 g/dL (30.0-36.0); Mean Corpuscular Hemoglobin 28.2 pg (28.0-34.0); Mean Corpuscular Volume 84.7 fL (81-99); Mean Platelet Volume 8.8 fL (7.4-10.4); Monocytes # 0.4 10^3/uL (0.2-0.9); Monocytes % 7.8 %; Neutrophils # 4.1 10^3/uL (1.8-7.7); Neutrophils % 74.7 %; Nucleated Red Blood Cells % 0 %; Platelet Count 507 10^3/cmm (130-400); Red Cell Distribution Width 15.9 % (12.1-15.1); White Blood Count 5.5 10^3/uL (4.0-10.0)
[2019-08-28 05:45] LABS: Alanine Aminotransferase 19 U/L (0-33); Albumin Level 2.7 g/dL (3.5-5.2); Alkaline Phosphatase 81 IU/L (35-105); Anion Gap 16.4 (5-19); Aspartate Amino Transferase 22 U/L (0-32); Blood Urea Nitrogen 4 mg/dL (8-23); Calcium 8.7 mg/dL (8.5-10.5); Carbon Dioxide 28 mmol/L (22-29); Chloride 82 mmol/L (98-107); Globulin 3.5 g/dL (1.3-4.6); Glucose 206 mg/dL (65-115); Osmolality Calculated 256 mOsm/kg (285-295); Potassium 4.4 mmol/L (3.5-5.1); Sodium 122 mmol/L (136-145); Total Bilirubin 0.2 mg/dL (0.15-1.2); Total Protein 6.2 g/dL (6.6-8.7)
[2019-08-28] MEDS: levoFLOXacin 750 mg Tablet PO (06:10)
[2019-08-28 06:28] LABS: Glucose Point of Care 295 mg/dL (70-110)
[2019-08-28] MEDS: enoxaparin 40 mg/0.4 mL Syringe SUBCUT (08:07)
[2019-08-28] MEDS: hydrocortisone 100 mg/2 mL SDV 50 MG IVP (08:08)
[2019-08-28] MEDS: aspirin 81 mg EC Tablet PO (08:09)
[2019-08-28] MEDS: potassium chloride oral liq 20 mEq/15 mL UDC 40 MEQ PO (08:09)
[2019-08-28] MEDS: pantoprazole DR 40 mg Tablet PO (08:10)
[2019-08-28] MEDS: venlafaxine ER (24HR) 150 mg Capsule PO (08:10)
[2019-08-28] MEDS: metoprolol tartrate 50 mg Tablet 25 MG PO ×2 (08:10→17:34)
[2019-08-28] MEDS: levothyroxine 150 mcg Tablet 75 MCG PO (08:10)
[2019-08-28] MEDS: insulin glargine 100 units/1 mL 20 UNIT SUBCUT (08:11)
[2019-08-28] MEDS: nystatin powder 15 gm Btl 1 APPLIC TOPICAL ×2 (08:11→17:36)
[2019-08-28] MEDS: lidocaine 5% Patch 1 PATCH TOPICAL (10:57)
[2019-08-28 12:12] LABS: Glucose Point of Care 74 mg/dL (70-110)
[2019-08-28] MEDS: sodium chloride 1 gm Tablet PO ×2 (14:34→17:34)
[2019-08-28 16:43] LABS: Glucose Point of Care 154 mg/dL (70-110)
--- NOTE | 2019-08-28 18:53 | PM.PN ---
Subjective Subjective: Interval history: Continues to feel very weak and deconditioned. Na 122 this morning, c/o headache. 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: no focal neuro deficits EXT: no gross edema or tenderness Data : 08/28/19 04:46 08/28/19 04:46 Micro: Microbiology 08/27/19 13:16 Blood Culture - Preliminary Blood NEGATIVE TO DATE 08/27/19 13:15 Blood Culture - Preliminary Blood NEGATIVE TO DATE 08/27/19 09:30 Legionella Urinary Antigen - Final Urine,Voided A&P Assessment and plan (1) Diastolic heart failure: Status: Acute Qualifiers: Heart failure chronicity: acute on chronic Qualified Code(s): I50.33 - Acute on chronic diastolic (congestive) heart failure (2) Chronic diarrhea: Status: Acute (3) Diabetic gastroparesis: Status: Acute (4) Morbid obesity: Status: Acute (5) Fatigue: Status: Acute Qualifiers: Fatigue type: unspecified Qualified Code(s): R53.83 - Other fatigue (6) Adrenal insufficiency: Status: Acute (7) Hyponatremia: Status: Acute Additional A&P Information 64 year old lady with multiple comorbidities admitted on 08/23 with h/o multiple admissions c/o generalized weakness, lethargy and shortness of breath. Diagnostics in the ER revealed hypertension, tachycardia, requiring 2 to 3 L of oxygen, x-ray showing bilateral infiltrates consistent with CHF, high BNP. She required Bipap for a short time. Differentials given the above presentations include - Diastolic heart failure vs sleep apnea given body habitus as evidenced by elevated BNP, B/L infitrates seen on CT which seem most consistent with pulmonary edema ECHO performed LVEF 55%, grade 1 diatolic dysfunction with mornal to mildly elevated filling pressures. PASP WNL. CT chest w/o contrast with Nonspecific bilateral lower lung opacities. COVID 19 ruled out by negative RT-PCR Repeat CXR with previously visualized CHF and ground-glass opacities in the lungs have almost completely resolved. T Elevate head of bed to help with CHF and also minimize risk of aspiration Spirometer at bedside lasix discontinued due to improved CHF, clinical euvolemia and falling sodium Hyponatremia: Initially appeared to be 2/2 dehydration, improved with hydration however patient then devleoped signs of hypervolemia for which fluids were discontinued and she was started on lasix. With this change, Na has further dropped to 122. Patient without gross neuro deficits, however reports headcache. Rpt urine and sodium osmolality, urine sodium studies. Start po salt BID 2. Chronic diarrhea/C. difficile/prolonged tapering regimen Increase vancomycin po to q6h while she remains admitted, can resume taper regimen on discharge if remains without diarrhea CT abdomen / without evidence of ileus currently 2 epidoes per day, semi soft 4. Adrenal insufficiency: Patient has been on Prednisone 5mg qd, will change this to hydrocortisone 5mg po BID for better mineralocorticoid effect, hopefully will additionally help with increasing sodium 5. Type 2 diabetes: Consistent carb diet, moderate sliding scale insulin , currently well controlled 6. Fatigue and deconditioning likely from multiple comorbidities and recurrent admissions : PT/OT eval. Full code Consistent carb diet DVT prophylaxis : lovenox 40mg qd Attestations Medical Necessity Statement*: needs normalization of sodium prior to discharge Coding Level of Care Code Acute [employer] for Chg Fwd Diagnoses Diastolic heart failure I50.33 Heart failure chronicity: acute on chronic Chronic diarrhea K52.9 Diabetic gastroparesis E11.43; K31.84 Morbid obesity E66.01 Fatigue R53.83 Fatigue type: unspecified Adrenal insufficiency E27.40 Hyponatremia E87.1
[2019-08-28 21:03] LABS: Glucose Point of Care 154 mg/dL (70-110)
[2019-08-28] MEDS: quetiapine 25 mg Tablet 50 MG PO (21:28)
[2019-08-28] MEDS: trazodone 150 mg Tablet PO (21:28)
[2019-08-28 23:02] LABS: Alanine Aminotransferase 23 U/L (0-33); Albumin Level 2.9 g/dL (3.5-5.2); Alkaline Phosphatase 78 IU/L (35-105); Anion Gap 15.9 (5-19); Aspartate Amino Transferase 29 U/L (0-32); Blood Urea Nitrogen 2 mg/dL (8-23); Carbon Dioxide 29 mmol/L (22-29); Chloride 86 mmol/L (98-107); Globulin 3.2 g/dL (1.3-4.6); Glomerular Filtration Rate 100.3 mL/min (90-130); Glucose 101 mg/dL (65-115); Osmolality Calculated 260 mOsm/kg (285-295); Potassium 3.9 mmol/L (3.5-5.1); Sodium 127 mmol/L (136-145); Total Bilirubin 0.2 mg/dL (0.15-1.2); Total Protein 6.1 g/dL (6.6-8.7)
[2019-08-28] MEDS: hydrocortisone 10 mg Tablet 5 MG PO (23:12)
[2019-08-29] VITALS (8 sets, daily range): BP systolic 92–127; BP diastolic 62–72; PULSE 80–116; RESP 16–20; TEMP 36.6–36.9; O2SAT 92–95
[2019-08-29 05:55] LABS: Alanine Aminotransferase 25 U/L (0-33); Albumin Level 2.9 g/dL (3.5-5.2); Alkaline Phosphatase 77 IU/L (35-105); Anion Gap 16.8 (5-19); Aspartate Amino Transferase 29 U/L (0-32); Blood Urea Nitrogen 3 mg/dL (8-23); Calcium 8.3 mg/dL (8.5-10.5); Carbon Dioxide 28 mmol/L (22-29); Chloride 87 mmol/L (98-107); Glucose 204 mg/dL (65-115); Osmolality Calculated 267 mOsm/kg (285-295); Potassium 3.8 mmol/L (3.5-5.1); Sodium 128 mmol/L (136-145); Total Bilirubin 0.2 mg/dL (0.15-1.2); Total Protein 5.9 g/dL (6.6-8.7)
[2019-08-29 07:03] LABS: Glucose Point of Care 219 mg/dL (70-110)
[2019-08-29] MEDS: enoxaparin 40 mg/0.4 mL Syringe SUBCUT (08:37)
[2019-08-29] MEDS: aspirin 81 mg EC Tablet PO (08:37)
[2019-08-29] MEDS: hydrocortisone 10 mg Tablet 5 MG PO ×2 (08:37→17:25)
[2019-08-29] MEDS: insulin glargine 100 units/1 mL 20 UNIT SUBCUT (08:38)
[2019-08-29] MEDS: levothyroxine 150 mcg Tablet 75 MCG PO (08:38)
[2019-08-29] MEDS: nystatin powder 15 gm Btl 1 APPLIC TOPICAL ×2 (08:39→17:25)
[2019-08-29] MEDS: metoprolol tartrate 50 mg Tablet 25 MG PO ×2 (08:39→17:26)
[2019-08-29] MEDS: pantoprazole DR 40 mg Tablet PO (08:40)
[2019-08-29] MEDS: venlafaxine ER (24HR) 150 mg Capsule PO (08:40)
[2019-08-29] MEDS: potassium chloride oral liq 20 mEq/15 mL UDC 40 MEQ PO (08:40)
[2019-08-29] MEDS: sodium chloride 1 gm Tablet PO ×2 (08:50→17:25)
[2019-08-29] MEDS: oxyCODONE-APAP 5-325 mg Tablet 1 TAB PO ×2 (08:54→21:18)
--- NOTE | 2019-08-29 11:07 | PC.NURSE ---
REFUSED PHYSICAL THERAPY - Asked Patient to get up to chair for lunch and patient refused states she doesnt feel like it right now. Samuel from PT came in at same time and offered to assist to chair and she refused as well. JHONY ,NKECHI
--- NOTE | 2019-08-29 11:37 | DCPLANNER ---
Pg 2 of IM updated and reviewed with pt. No questions, copy provided.
[2019-08-29 12:01] LABS: Glucose Point of Care 99 mg/dL (70-110)
--- NOTE | 2019-08-29 12:13 | PC.RESP ---
SMOKING CESSATION INFORMATION SENT TO PATIENT.
--- NOTE | 2019-08-29 12:38 | PM.PN ---
Subjective Subjective: Interval history: This morning, patient sleeping in bed, says that she is fairly cold, does not want me to remove the sheets, alert oriented x3, states that her abdomen hurts her, no diarrhea, no fevers, no chills, she feels that she has not gotten better since her hospital admission, she, she continues to be fairly weak, but refuses to work with physical therapy, is fairly adamant about not consuming alcohol, states that her last drink was 2 months ago, her complaints of are more of generalized weakness, no visual changes, no facial droop, no paralysis, no paresthesias, no chest pain, no shortness of breath Vitals/I&O/Wt Last Vital Signs Temp 98.5 F 08/29/19 11:43 Pulse 80 08/29/19 11:43 Resp 18 08/29/19 11:43 BP 106/68 08/29/19 11:43 Pulse Ox 94 08/29/19 11:43 08/28/19 08/29/19 08/29/19 22:59 06:59 14:59 Intake Total 240 / 720 60 / 780 480 / 480 Output Total 350 / 350 400 / 400 Balance -110 / 370 60 / 430 80 / 80 Physical Exam Const: COMMON NORMALS: no acute distress and patient oriented x3 HENMT: COMMON NORMALS: normocephalic HEAD & SCALP: normocephalic Neck/C-Spine: COMMON NORMALS: no JVD Resp: COMMON NORMALS: normal respiratory effort, No retractions, No use of accessory muscles and clear to auscultation bilaterally AUSCULTATION: clear to auscultation bilaterally Cardio: COMMON NORMALS: no JVD, regular rate, regular rhythm, S1 normal heart sound present and S2 normal heart sound present RATE: regular rate RHYTHM: regular rhythm HEART SOUNDS: S1 normal heart sound present and S2 normal heart sound present GI: COMMON NORMALS: Normal to inspection, nondistended, normoactive bowel sounds present, Soft to palpation, non-tender, No hepatosplenomegaly present, no masses and no bruits PALPATION: Yes Soft to palpation and Yes No hepatosplenomegaly present Extremity: COMMON NORMALS: capillary refill normal, no clubbing, cyanosis or edema, no calf tenderness and no pedal edema Neuro: COMMON NORMALS: patient oriented x3 Psych: COMMON NORMALS: mental status grossly normal Data : 08/28/19 04:46 08/29/19 05:10 Micro: Microbiology 08/27/19 13:16 Blood Culture - Preliminary Blood NEGATIVE TO DATE 08/27/19 13:15 Blood Culture - Preliminary Blood NEGATIVE TO DATE 08/27/19 09:30 Legionella Urinary Antigen - Final Urine,Voided A&P Assessment and plan (1) Diastolic heart failure: Status: Acute Qualifiers: Heart failure chronicity: acute on chronic Qualified Code(s): I50.33 - Acute on chronic diastolic (congestive) heart failure (2) Chronic diarrhea: Status: Acute (3) Diabetic gastroparesis: Status: Acute (4) Morbid obesity: Status: Acute (5) Fatigue: Status: Acute Qualifiers: Fatigue type: unspecified Qualified Code(s): R53.83 - Other fatigue (6) Adrenal insufficiency: Status: Acute (7) Hyponatremia: Status: Acute Additional A&P Information 64 year old lady with multiple comorbidities admitted on 08/23 with h/o multiple admissions c/o generalized weakness, lethargy and shortness of breath. Diagnostics in the ER revealed hypertension, tachycardia, requiring 2 to 3 L of oxygen, x-ray showing bilateral infiltrates consistent with CHF, high BNP. She required Bipap for a short time. - Diastolic heart failure vs sleep apnea given body habitus: Currently not requiring any oxygen, continue to monitor ECHO performed LVEF 55%, grade 1 diatolic dysfunction with mornal to mildly elevated filling pressures. PASP WNL. CT chest w/o contrast with Nonspecific bilateral lower lung opacities. COVID 19 ruled out by negative RT-PCR Repeat CXR with previously visualized CHF and ground-glass opacities in the lungs have almost completely resolved. T Elevate head of bed to help with CHF and also minimize risk of aspiration Spirometer at bedside lasix discontinued due to improved CHF, clinical euvolemia and falling sodium Hyponatremia: Secondary dehydration, beers potomania Patient denies alcohol consumption in the last 2 months, but I doubt this Serum sodium improved to 128, no neuro deficits, no headache Rpt urine and sodium osmolality, urine sodium studies. Start po salt BID 2. Chronic diarrhea/C. difficile/prolonged tapering regimen Increase vancomycin po to q6h while she remains admitted, can resume taper regimen on discharge if remains without diarrhea CT abdomen 08/23 without evidence of ileus currently 2 epidoes per day, semi soft 4. Adrenal insufficiency: Patient has been on Prednisone 5mg qd, will change this to hydrocortisone 5mg po BID for better mineralocorticoid effect, hopefully will additionally help with increasing sodium 5. Type 2 diabetes: Consistent carb diet, moderate sliding scale insulin , currently well controlled 6. Fatigue and deconditioning likely from multiple comorbidities and recurrent admissions : PT/OT eval. patient has refused PT OT for the last 2 days Full code Consistent carb diet DVT prophylaxis : lovenox 40mg qd Attestations Medical Necessity Statement*: Patient requires continued hospitalization due to hyponatremia, Coding Level of Care Code Acute Insurance Verifier for Chg Fwd Diagnoses Diastolic heart failure I50.33 Heart failure chronicity: acute on chronic Chronic diarrhea K52.9 Diabetic gastroparesis E11.43; K31.84 Morbid obesity E66.01 Fatigue R53.83 Fatigue type: unspecified Adrenal insufficiency E27.40 Hyponatremia E87.1
--- NOTE | 2019-08-29 16:04 | PC.NURSE ---
Spoke with Chepe Mendosa who states patient uses [facility] [place] and [facility] with [facility]. Also states patient has not drank in 6 weeks. Also, confirmed [facility]. ODINW, FORENSIC SERGEANT
[2019-08-29 16:47] LABS: Glucose Point of Care 177 mg/dL (70-110)
[2019-08-29 16:47] LABS: Glucose Point of Care 185 mg/dL (70-110)
--- NOTE | 2019-08-29 17:02 | PC.OT ---
OT note: Attempted OT evaluation. Pt was rolled on her side and she pulled up covers to head when therapist attempted to greet her, possibly sleeping. Will attempt again tomorrow.
[2019-08-29 20:09] LABS: Glucose Point of Care 153 mg/dL (70-110)
[2019-08-29] MEDS: trazodone 150 mg Tablet PO (21:21)
[2019-08-29] MEDS: quetiapine 25 mg Tablet 50 MG PO (21:21)
[2019-08-30] VITALS: BP 115/75; PULSE 90; RESP 18; TEMP 36.6; O2SAT 95
[2019-08-30 04:00] VITALS: BP 133/71; PULSE 77; RESP 19; TEMP 36.7; O2SAT 93
[2019-08-30 06:32] LABS: Glucose Point of Care 155 mg/dL (70-110)
[2019-08-30 07:47] LABS: Basophils % 0.6 %; Eosinophils # 0.1 10^3/uL (0.0-0.8); Eosinophils % 1.7 %; Hematocrit 35.1 % (37.0-47.0); Hemoglobin 11.5 g/dL (11.5-15.3); Lymphocytes # 2.8 10^3/uL (0.8-4.8); Mean Corpuscular HGB Conc 32.8 g/dL (30.0-36.0); Mean Corpuscular Hemoglobin 28.3 pg (28.0-34.0); Mean Corpuscular Volume 86.2 fL (81-99); Mean Platelet Volume 8.7 fL (7.4-10.4); Monocytes # 0.8 10^3/uL (0.2-0.9); Monocytes % 10.5 %; Neutrophils # 3.4 10^3/uL (1.8-7.7); Neutrophils % 46.9 %; Nucleated Red Blood Cells % 0 %; Platelet Count 551 10^3/cmm (130-400); Red Blood Count 4.07 10^6/uL (4.1-5.3); Red Cell Distribution Width 16.1 % (12.1-15.1); White Blood Count 7.1 10^3/uL (4.0-10.0)
[2019-08-30 08:00] VITALS: BP 122/84; PULSE 109; RESP 19; TEMP 37; O2SAT 92
[2019-08-30 08:00] LABS: Alanine Aminotransferase 25 U/L (0-33); Albumin Level 3.2 g/dL (3.5-5.2); Alkaline Phosphatase 80 IU/L (35-105); Anion Gap 15.5 (5-19); Aspartate Amino Transferase 26 U/L (0-32); Blood Urea Nitrogen 3 mg/dL (8-23); Carbon Dioxide 29 mmol/L (22-29); Chloride 93 mmol/L (98-107); Globulin 2.9 g/dL (1.3-4.6); Glomerular Filtration Rate 100.3 mL/min (90-130); Glucose 152 mg/dL (65-115); Magnesium 1.5 mg/dL (1.7-2.3); Osmolality Calculated 275 mOsm/kg (285-295); Phosphorus 4.7 mg/dL (2.5-4.5); Potassium 4.5 mmol/L (3.5-5.1); Sodium 133 mmol/L (136-145); Total Bilirubin 0.2 mg/dL (0.15-1.2); Total Protein 6.1 g/dL (6.6-8.7)
[2019-08-30] MEDS: enoxaparin 40 mg/0.4 mL Syringe SUBCUT (09:20)
[2019-08-30] MEDS: nystatin powder 15 gm Btl 1 APPLIC TOPICAL (09:20)
[2019-08-30] MEDS: levothyroxine 150 mcg Tablet 75 MCG PO (09:22)
[2019-08-30] MEDS: potassium chloride oral liq 20 mEq/15 mL UDC 40 MEQ PO (09:22)
[2019-08-30] MEDS: venlafaxine ER (24HR) 150 mg Capsule PO (09:22)
[2019-08-30] MEDS: pantoprazole DR 40 mg Tablet PO (09:22)
[2019-08-30] MEDS: metoprolol tartrate 50 mg Tablet 25 MG PO (09:23)
[2019-08-30] MEDS: aspirin 81 mg EC Tablet PO (09:23)
[2019-08-30] MEDS: insulin glargine 100 units/1 mL 20 UNIT SUBCUT (09:24)
[2019-08-30] MEDS: sodium chloride 1 gm Tablet PO (09:48)
[2019-08-30 11:02] LABS: Glucose Point of Care 156 mg/dL (70-110)
[2019-08-30 11:22] VITALS: BP 122/84; PULSE 86; RESP 18; TEMP 36.8; O2SAT 95
--- NOTE | 2019-08-30 12:51 | PM.DCS ---
Discharge Providers Date of Admission: 08/24/19 21:49 Date of Discharge: August 30, 2019 Attending Provider at Admission: Tian Murdock MD Attending Provider at Discharge: Kurt Zamarripa MD Primary Care Provider: KATRINA Cash Diagnoses at Discharge Discharge Diagnosis (1) Diastolic heart failure: Status: Acute Qualifiers: Heart failure chronicity: acute on chronic Qualified Code(s): I50.33 - Acute on chronic diastolic (congestive) heart failure (2) Chronic diarrhea: Status: Acute (3) Diabetic gastroparesis: Status: Acute (4) Morbid obesity: Status: Acute (5) Fatigue: Status: Acute Qualifiers: Fatigue type: unspecified Qualified Code(s): R53.83 - Other fatigue (6) Adrenal insufficiency: Status: Acute (7) Hyponatremia: Status: Acute Reason for Visit Reason for Visit: SOB, CDIFF Hospital Course Discharge Summary: This is a 64-year-old female with a past medical history of type 2 diabetes mellitus, hypertension, adrenal insufficiency, alcohol abuse, hypothyroidism, who was recently discharged from [facility] with persistent C. difficile diarrhea on a vancomycin taper who presented to again [facility] due to complaints of generalized weakness Patient was admitted from generalized weakness secondary to dehydration, hyponatremia, persistent C. difficile diarrhea For patient's hyponatremia, likely secondary dehydration, beers potomania from alcohol abuse, serum sodium slowly improved, there was issues of fluid overload early in admission and she did receive Lasix therapy which did cause a temporary reduction in her serum sodium, but with the diuretics held, her serum sodium rebounded, on discharge her serum sodium was 133. Patient was advised to abstain from alcohol abuse, advised to drink electrolyte balance fluids with sodium in it such as Gatorade or vitamin water. Patient was discharged on a long vancomycin taper, advised to drink plenty electrolyte balance fluids and to follow-up with her outpatient physician. Some of patient's generalized weakness and low blood pressures, was thought to be related to possible her adrenal insufficiency, she was started on hydrocortisone, with minimal benefit, I have discharged her on prednisone 10 mg daily, with instructions to taper down to 5 mg daily when she sees her outpatient physician in 1 month. During her hospitalization, patient's motivation was an issue, at times she would not work with physical therapy, after thorough discussion with her she was able to work with physical therapy on discharge, was able to ambulate without any significant assistance, was discharged home with close follow-up with outpatient physician. Patient did have a diastolic heart failure exacerbation during her hospital admission, echo showed ejection fraction 55% grade 1 diastolic dysfunction, CT of the chest without contrast showed nonspecific bilateral lower lung opacities, COVID-19 was negative, no fevers, she did receive Lasix therapy which was eventually discontinued when she became euvolemic, at one point did require 3 L of oxygen, on discharge she was saturating well on room air, she worked with physical therapy was able to ambulate, was advised to follow-up with her outpatient physician in 1 month. Physical Exam Const: COMMON NORMALS: no acute distress and patient oriented x3 HENMT: COMMON NORMALS: normocephalic HEAD & SCALP: normocephalic Neck/C-Spine: COMMON NORMALS: no JVD Resp: COMMON NORMALS: normal respiratory effort, No retractions, No use of accessory muscles and clear to auscultation bilaterally AUSCULTATION: clear to auscultation bilaterally Cardio: COMMON NORMALS: no JVD, regular rate, regular rhythm, S1 normal heart sound present and S2 normal heart sound present RATE: regular rate RHYTHM: regular rhythm HEART SOUNDS: S1 normal heart sound present and S2 normal heart sound present GI: COMMON NORMALS: Normal to inspection, nondistended, normoactive bowel sounds present, Soft to palpation, non-tender, No hepatosplenomegaly present, no masses and no bruits PALPATION: Yes Soft to palpation and Yes No hepatosplenomegaly present Extremity: COMMON NORMALS: capillary refill normal, no clubbing, cyanosis or edema, no calf tenderness and no pedal edema Neuro: COMMON NORMALS: patient oriented x3 Psych: COMMON NORMALS: mental status grossly normal Discharge Data Data Completed and Pending: Completed Studies During Hospitalization Category Date Time Status CT abdomen pelvis w con* [id number] Stat Cat Scan 08/24/19 22:[address] chest wo con 7 1250 Stat Cat Scan 08/25/19 02:[address] head wo con* 7 0450 Stat Cat Scan 08/25/19 02:34 Completed XR chest 1V eduardo ble [id number] Routine Exams 08/27/19 12:57 Completed XR chest 1V eduardo ble [id number] Urgent Exams 08/24/19 17:26 Completed CV echo complete* [id number] Routine Ultrasound 08/26/19 01:42 [place] [id number] Routin e Ultrasound 08/27/19 13:59 Completed Pending at discharge Category Date Time Status Blood Culture Sta t Lab 08/27/19 13:16 Results Complete Blood Co unt w/Auto AM LABS Lab 08/31/19 04:00 Ordered Complete Blood Co unt w/Auto AM LABS Lab 09/01/19 04:00 Ordered Comprehensive Met abolic Panel AM LA BS Lab 08/31/19 04:00 Ordered Comprehensive Met abolic Panel AM LA BS Lab 09/01/19 04:00 Ordered Magnesium AM LABS Lab 08/31/19 04:00 Ordered Magnesium AM LABS Lab 09/01/19 04:00 Ordered Osmolality Urine Routine Lab 08/28/19 21:47 Uncollected Phosphorus AM LAB S Lab 08/31/19 04:00 Ordered Phosphorus AM LAB S Lab 09/01/19 04:00 Ordered Urine Random Sodi um Routine Lab 08/28/19 21:47 Uncollected Labs from last 24 hours 08/30/19 08/30/19 08/30/19 10:56 07:17 07:17 WBC 7.1 RBC 4.07 L Hgb 11.5 Hct 35.1 L MCV 86.2 MCH 28.3 MCHC 32.8 RDW 16.1 H Plt Count 551 H MPV 8.7 Neut % (Auto) 46.9 Lymph % (Auto) 39.0 Rolette % (Auto) 10.5 Eos % (Auto) 1.7 Baso % (Auto) 0.6 Neut # (Auto) 3.4 Lymph # (Auto) 2.8 Rolette # (Auto) 0.8 Eos # (Auto) 0.1 Baso # (Auto) 0.0 Nucleated RBC % (a uto) 0 Nucleated RBCs # 0.0 Sodium 133 L Potassium 4.5 Chloride 93 L Carbon Dioxide 29 Anion Gap 15.5 BUN 3 L Creatinine 0.6 GFR Calculation 100.3 Glucose 152 H POC Glucose 156 Calculated Osmolal ity 275 L Calcium 9.0 Phosphorus 4.7 H Magnesium 1.5 L Total Bilirubin 0.2 AST 26 ALT 25 Alkaline Phosphata se 80 Total Protein 6.1 L Albumin 3.2 L Globulin 2.9 08/30/19 08/29/19 08/29/19 06:29 20:05 16:43 WBC RBC Hgb Hct MCV MCH MCHC RDW Plt Count MPV Neut % (Auto) Lymph % (Auto) Rolette % (Auto) Eos % (Auto) Baso % (Auto) Neut # (Auto) Lymph # (Auto) Rolette # (Auto) Eos # (Auto) Baso # (Auto) Nucleated RBC % (a uto) Nucleated RBCs # Sodium Potassium Chloride Carbon Dioxide Anion Gap BUN Creatinine GFR Calculation Glucose POC Glucose 155 153 177 Calculated Osmolal ity Calcium Phosphorus Magnesium Total Bilirubin AST ALT Alkaline Phosphata se Total Protein Albumin Globulin 08/29/19 16:30 WBC RBC Hgb Hct MCV MCH MCHC RDW Plt Count MPV Neut % (Auto) Lymph % (Auto) Rolette % (Auto) Eos % (Auto) Baso % (Auto) Neut # (Auto) Lymph # (Auto) Rolette # (Auto) Eos # (Auto) Baso # (Auto) Nucleated RBC % (a uto) Nucleated RBCs # Sodium Potassium Chloride Carbon Dioxide Anion Gap BUN Creatinine GFR Calculation Glucose POC Glucose 185 Calculated Osmolal ity Calcium Phosphorus Magnesium Total Bilirubin AST ALT Alkaline Phosphata se Total Protein Albumin Globulin Vitals: Last Vital Signs Temp 98.3 F 08/30/19 11:22 Pulse 86 08/30/19 11:22 Resp 18 08/30/19 11:22 BP 122/84 08/30/19 11:22 Pulse Ox 95 08/30/19 11:22 Discharge Plan Discharge Patient Disposition: Home, Self-Care Condition: Stable Prescriptions: New Lantus U-100 Insulin 100 unit/mL Solution 20 unit SUBCUT DAILY 30 Days RF: 0 prednisone 10 mg tablet 10 mg PO DAILY 30 Days Qty: 30 RF: 0 Continued metoclopramide HCl [Reglan] 5 mg tablet 5 mg PO .qac Qty: 90 RF: 0 venlafaxine [Effexor XR] 150 mg capsule,extended release 24hr 150 mg PO DAILY Qty: 30 RF: 1 furosemide 40 mg Tablet 40 mg PO DAILY RF: 0 atorvastatin 80 mg Tablet 80 mg PO QPM RF: 0 aspirin [Aspir-81] 81 mg Tablet,Delayed Release (Dr/Ec) 81 mg PO DAILY RF: 0 levothyroxine 75 mcg Tablet 75 mcg PO DAILY RF: 0 pantoprazole 40 mg Tablet,Delayed Release (Dr/Ec) 40 mg PO DAILY RF: 0 lidocaine 5 % Adhesive Patch,Medicated 1 patch TOPICAL PRN RF: 0 metoprolol tartrate 50 mg Tablet 25 mg PO BID RF: 0 ferrous sulfate 325 mg (65 mg iron) Tablet,Delayed Release (Dr/Ec) 325 mg PO DAILY RF: 0 insulin aspart U-100 [Novolog Flexpen U-100 Insulin] 100 unit/mL (3 mL) Insulin Pen See Rx Instructions .ROUTE .COMPLEX Qty: 0 RF: 0 clonazepam 0.5 mg Tablet 0.5 mg PO TID PRN (Reason: Anxiety) RF: 0 quetiapine [Seroquel] 50 mg tablet 50 mg PO BEDTIME RF: 0 Tylenol Extra Strength 500 mg Tablet 1,000 mg PO PRN RF: 0 trazodone 150 mg Tablet 150 mg PO BEDTIME RF: 0 metformin 1,000 mg Tablet 1,000 mg PO BID RF: 0 glimepiride 4 mg Tablet 4 mg PO DAILY RF: 0 Vistaril 50 mg capsule 50 mg PO TID PRN (Reason: unknown) RF: 0 Changed vancomycin 125 mg capsule See Rx Instructions .ROUTE .COMPLEX Qty: 48 RF: 0 Discontinued Nyquil 2 cap PO BID PRN (Reason: unknown) RF: 0 Lantus U-100 Insulin 100 unit/mL solution 30 unit SUBCUT DAILY RF: 0 Discharge Orders: Discharge Order (Routine); Ordered 08/30/19 Ordered By: Kutr Zamarripa Referrals: [facility] [Outside] Thu Flores FNP [Primary Care Provider] - Discharge Diet: Cardiac Discharge Activity: Resume usual activity Discharge Attestations Time Spent in Discharge Care*: less than 30 min Quality Metrics Clinical Quality Measures During this hospital stay, did patient experience: None Coding Level of Care Code Acute Network Pricing Consultant for Chg Fwd Diagnoses Diastolic heart failure I50.33 Heart failure chronicity: acute on chronic Chronic diarrhea K52.9 Diabetic gastroparesis E11.43; K31.84 Morbid obesity E66.01 Fatigue R53.83 Fatigue type: unspecified Adrenal insufficiency E27.40 Hyponatremia E87.1
--- NOTE | 2019-08-30 14:36 | PC.OT ---
Unable to see patient this date due to patient preparing to go home. RN states patient is in a bad mood and non participatory.
[2019-08-30 14:50] VITALS: O2SAT 93; O2SAT 97
[2019-08-30 15:49] VITALS: BP 122/84; PULSE 86; RESP 18; TEMP 36.8; O2SAT 95
== END 2019-08-30 15:45 | disposition home or self-care (01) ==
LOC: ER 17:12 → ICU 08-25 00:32 → MEDSURG 08-25 20:35
PROVIDERS: Family Medicine; Student in an Organized Health Care Education/Training Program; Admitting Provider Internal Medicine; PCP Nurse Practitioner; Visit Provider Family Medicine
DX: K52.9 Noninfective gastroenteritis and colitis, unspecified (principal); E11.43 Type 2 diabetes mellitus with diabetic autonomic (poly)neuropathy; K31.84 Gastroparesis; E66.01 Morbid (severe) obesity due to excess calories; Z68.30 Body mass index [BMI] 30.0-30.9, adult; R53.83 Other fatigue; E27.40 Unspecified adrenocortical insufficiency; E87.1 Hypo-osmolality and hyponatremia; M79.89 Other specified soft tissue disorders; I50.33 Acute on chronic diastolic (congestive) heart failure; Z79.82 Long term (current) use of aspirin; Z79.4 Long term (current) use of insulin; E11.22 Type 2 diabetes mellitus with diabetic chronic kidney disease; I13.0 Hypertensive heart and chronic kidney disease with heart failure and stage 1 through stage 4 chronic kidney disease, or unspecified chronic kidney disease; N18.2 Chronic kidney disease, stage 2 (mild); E78.5 Hyperlipidemia, unspecified; E03.9 Hypothyroidism, unspecified; Z82.49 Family history of ischemic heart disease and other diseases of the circulatory system; Z83.3 Family history of diabetes mellitus; F17.290 Nicotine dependence, other tobacco product, uncomplicated
CPT/HCPCS: 12011; 12345; 36415; 36416; 70450; 71045; 71250; 74177; 80048; 80053; 82533; 82803; 82962; 83605; 83690; 83735; 83880; 84100; 84443; 85025; 87040; 87081; 87449; 87635; 87804; 87880; 93306; 93970; 94660; 96372; 96375; 97110; 97161; 99283; G0378; J0456; J0696; J1650; J1720; J1815; J1940; J2001; J3480; J7030; J7050; J7512; J8499; Q9967

== ENCOUNTER 2019-09-06 17:13 | Inpatient (IN) | payer OTHER, MEDICARE, SELFPAY ==
[2019-09-06] VITALS (39 sets, daily range): BP systolic 134–174; BP diastolic 76–107; PULSE 93–115; RESP 16–40; TEMP 36.1–37; O2SAT 88–100; BMI 28.0
--- NOTE | 2019-09-06 17:24 | XR_ITS ---
WS: [id number] XR chest 1V portable [id number] REASON FOR EXAM: weakness FINDINGS: SCS electrodes are seen in the middle thoracic vertebra as. The heart is not enlarged arteriosclerotic changes in the arch of the aorta. The mediastinum was normal. No pneumonia, pleural effusion, pulmonary edema, or mass effect. Hilum and apices are normal. XR/XR chest 1V portable [id number] IMPRESSION: SCS electrodes in good position intrathoracic. The lung lambert are well aerated no active infiltrates.
--- NOTE | 2019-09-06 17:25 | ECG_ITS ---
[facility] ED Test Date: 2019-09-06 Pat Name: Ingris Mendosa Department: Room: [facility] Gender: Female Maintenance Aide: : 1955 Requested By: Melissa Garcia Order Number: [id number] Reading MD: Cindy Strong M.D. Measurements Intervals [place] Rate: 118 P: 10 NJ: 122 QRS: 55 QRSD: 85 T: 73 QT: 340 QTc: 477 Interpretive Statements SINUS TACHYCARDIA WITH OCCASIONAL SUPRAVENTRICULAR PREMATURE COMPLEXES NONSPECIFIC ST & T-WAVE ABNORMALITY Compared to ECG 08/04/2019 03:38:00 No significant changes Electronically Signed On 09-07-2019 13:41:45 CDT by Cindy Strong M.D. [id number]
--- NOTE | 2019-09-06 17:59 | PC.NURSE ---
blood glucose is 215 nurse was notified
[2019-09-06 18:01] LABS: Glucose Point of Care 215 mg/dL (70-110)
[2019-09-06 18:02] LABS: Basophils % 0.2 %; Eosinophils % 0.1 %; Hematocrit 36.6 % (37.0-47.0); Hemoglobin 12.5 g/dL (11.5-15.3); Lymphocytes # 2.5 10^3/uL (0.8-4.8); Lymphocytes % 19.4 %; Mean Corpuscular HGB Conc 34.2 g/dL (30.0-36.0); Mean Corpuscular Hemoglobin 28.5 pg (28.0-34.0); Mean Corpuscular Volume 83.6 fL (81-99); Mean Platelet Volume 9.6 fL (7.4-10.4); Monocytes % 7.6 %; Neutrophils # 9.2 10^3/uL (1.8-7.7); Neutrophils % 72.3 %; Nucleated Red Blood Cells % 0 %; Platelet Count 542 10^3/cmm (130-400); Red Blood Count 4.38 10^6/uL (4.1-5.3); Red Cell Distribution Width 15.1 % (12.1-15.1); White Blood Count 12.7 10^3/uL (4.0-10.0)
--- NOTE | 2019-09-06 18:03 | ED_ITS ---
HPI - SOB/Dyspnea General: Chief Complaint: Shortness of Breath/Dyspnea Stated Complaint: weight loss, weakness, dizzy Time Seen by Provider: 09/06/19 17:25 Source: patient Mode of arrival: ambulatory Limitations: no limitations History of Present Illness: HPI Narrative: -year-old female here with multiple complaints. She states that she was just discharged here for hyponatremia along with C. difficile. She states that she has been very weak and having some shortness of breath. Patient's states she seems confused at times but here she is able answer all my questions appropriately. She has had no fever. She denies any abdominal pain but states she has had a weight loss. Associated symptoms: Deny chest pain or fever(s) Review of Systems Const: Denies: fever(s), chills, body aches or change in appetite Eyes: Denies: blurry vision or eye discomfort ENMT: Denies: throat pain or dental pain Card: Denies: chest pain Resp: Denies: dyspnea GI: Reports: diarrhea : Denies: dysuria Musc: Denies: neck pain or back pain Skin/Breast: Denies: rash Neuro: Reports: weakness in extremities Psych: Denies: depression Jeremiah/Lymph: Denies: easy bruising All/Imm: Denies: urticaria PFSH ED PFSH: Medical History C. 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, recurrent severe without psychotic features Morbid obesity Post-traumatic stress disorder, chronic Surgical History H/O esophagogastroduodenoscopy H/O: hysterectomy History of bunionectomy bilateral Hx of cholecystectomy Status post colonoscopy Family History Other CAD (coronary artery disease) Cancer Diabetes Hypertension Denies family history of Anesthesia complication Bleeding disorder Social History Smoking and tobacco status: current every day smoker cigars Cigars smoked per week: 28 Smoking risk assessment/counseling performed?: No Alcohol intake: current Alcohol intake frequency: 3 or more drinks per day Alcohol type: beer Household members: spouse Housing: House Marital status: Current occupational status: retired History of recent travel: No Physical Exam Const: COMMON NORMALS: no acute distress and patient oriented x3 NUTRITIONAL APPEARANCE: obese HENMT: COMMON NORMALS: normocephalic and atraumatic HEAD & SCALP: normocephalic and atraumatic Eye: COMMON NORMALS: Equal, round and reactive pupils present and EOMs intact bilaterally PUPIL: Yes Equal, round and reactive pupils present Neck/C-Spine: COMMON NORMALS: full ROM and supple Chest: COMMONS NORMALS: normal inspection of the chest and normal palpation of entire chest wall Resp: COMMON NORMALS: normal respiratory effort, No retractions, No use of accessory muscles and clear to auscultation bilaterally AUSCULTATION: clear to auscultation bilaterally Cardio: COMMON NORMALS: regular rhythm and No murmurs present (Cardio) RATE: tachycardic RHYTHM: regular rhythm GI: COMMON NORMALS: Normal to inspection, nondistended, normoactive bowel sounds present, Soft to palpation, non-tender and no masses PALPATION: Yes Soft to palpation Extremity: COMMON NORMALS: normal to inspection and full ROM Neuro: COMMON NORMALS: patient oriented x3, moves all extremities and no focal motor deficits Psych: COMMON NORMALS: mental status grossly normal, Normal thought process present and cooperative THOUGHT PROCESS: Normal thought process present Skin: COMMON NORMALS: no rashes or lesions noted and no wounds GENERAL SKIN EXAM: no rashes or lesions noted Course Vital Signs: Vital signs: Vital Signs Temperature 98.2 F 09/06/19 17:18 Pulse Rate 100 09/06/19 19:00 Respiratory Rate 16 09/06/19 19:00 Blood Pressure 141/79 09/06/19 19:00 Pulse Oximetry 100 09/06/19 19:00 MDM - SOB/Dyspnea MDM Narrative: Medical decision making narrative: Patient presents here with acute kidney injury likely from dehydration. Patient also has a delayed lactate likely due to dehydration as well. She has no signs of acute infection here. Patient is hypokalemic as well. Patient given IV hydration and is stable for admission to the ICU. Lab Data: Labs: Lab Results 09/06/19 09/06/19 09/06/19 Range/Units 08:27 17:53 17:53 WBC 12.7 H (4.0-10.0) 10^3/ uL RBC 4.38 (4.1-5.3) 10^6/u L Hgb 12.5 (11.5-15.3) g/dL Hct 36.6 L (37.0-47.0) % MCV 83.6 (81-99) fL MCH 28.5 (28.0-34.0) pg MCHC 34.2 (30.0-36.0) g/dL RDW 15.1 (12.1-15.1) % Plt Count 542 H (130-400) 10^3/c mm MPV 9.6 (7.4-10.4) fL Neut % (Auto) 72.3 % Lymph % (Auto) 19.4 % [place] % (Auto) 7.6 % Eos % (Auto) 0.1 % Baso % (Auto) 0.2 % Neut # (Auto) 9.2 H (1.8-7.7) 10^3/u L Lymph # (Auto) 2.5 (0.8-4.8) 10^3/u L [place] # (Auto) 1.0 H (0.2-0.9) 10^3/u L Eos # (Auto) 0.0 (0.0-0.8) 10^3/u L Baso # (Auto) 0.0 (0.0-0.1) 10^3/u L Nucleated RBC % (a uto) 0 % Nucleated RBCs # 0.0 /100WBC Specimen Type Sample Site ABG pH (7.35-7.45) ABG pCO2 (35-45) mmHg ABG pO2 (80.0-100.0) mmH g ABG HCO3 (22-26) mmol/L ABG Base Excess (-2.0-2.0) mmol/ L Jose L Test Hematocrit (37-47) % O2 Delivery Device FiO2 % Park Interpretive Specialist ID Sodium 129 L (136-145) mmol/L Potassium 2.6 L* (3.5-5.1) mmol/L Chloride 81 L (98-107) mmol/L Carbon Dioxide 23 (22-29) mmol/L Anion Gap 27.6 H (5-19) BUN 25 H (8-23) mg/dL Creatinine 2.1 H (0.5-0.9) mg/dL GFR Calculation 23.6 L (90-130) mL/min Glucose 197 H (65-115) mg/dL POC Glucose (70-110) mg/dL Calculated Osmolal ity 270 L (285-295) mOsm/k g Lactic Acid (Sepsi s) (0.5-2.2) mmol/L Calcium 8.2 L (8.5-10.5) mg/dL Total Bilirubin 0.3 (0.15-1.2) mg/dL AST 22 (0-32) U/L ALT 17 (0-33) U/L Alkaline Phosphata se 77 (35-105) IU/L Total Protein 7.0 (6.6-8.7) g/dL Albumin 3.8 (3.5-5.2) g/dL Globulin 3.2 (1.3-4.6) g/dL Lipase 34 (13-60) U/L Urine Color Yellow (Yellow) Urine Appearance Clear (CLEAR) Urine pH 5 (5-7) Ur Specific Gravit y 1.015 (1.005-1.030) Urine Protein Neg (Negative) Urine Glucose (UA) Norm (Normal) Urine Ketones Negative (Negative) Urine Blood Neg (Negative) Urine Nitrate Negative (Negative) Urine Bilirubin Neg (NEGATIVE) Urine Urobilinogen Neg (Negative) mg/dL Ur Leukocyte Kiara ase Negative (Negative) Ethyl Alcohol < 10 (0-10) mg/dL 09/06/19 09/06/19 09/06/19 Range/Units 17:53 17:54 18:32 WBC (4.0-10.0) 10^3/ uL RBC (4.1-5.3) 10^6/u L Hgb (11.5-15.3) g/dL Hct (37.0-47.0) % MCV (81-99) fL MCH (28.0-34.0) pg MCHC (30.0-36.0) g/dL RDW (12.1-15.1) % Plt Count (130-400) 10^3/c mm MPV (7.4-10.4) fL Neut % (Auto) % Lymph % (Auto) % [place] % (Auto) % Eos % (Auto) % Baso % (Auto) % Neut # (Auto) (1.8-7.7) 10^3/u L Lymph # (Auto) (0.8-4.8) 10^3/u L [place] # (Auto) (0.2-0.9) 10^3/u L Eos # (Auto) (0.0-0.8) 10^3/u L Baso # (Auto) (0.0-0.1) 10^3/u L Nucleated RBC % (a uto) % Nucleated RBCs # /100WBC Specimen Type Arterial Sample Site Brachial, left ABG pH 7.71 H* (7.35-7.45) ABG pCO2 17.0 L* (35-45) mmHg ABG pO2 93.4 (80.0-100.0) mmH g ABG HCO3 21.4 L (22-26) mmol/L ABG Base Excess 3.6 H (-2.0-2.0) mmol/ L Jose L Test Pos Hematocrit 37.2 (37-47) % O2 Delivery Device Vent FiO2 % Park Interpretive Specialist ID [email or web address] Sodium (136-145) mmol/L Potassium (3.5-5.1) mmol/L Chloride (98-107) mmol/L Carbon Dioxide (22-29) mmol/L Anion Gap (5-19) BUN (8-23) mg/dL Creatinine (0.5-0.9) mg/dL GFR Calculation (90-130) mL/min Glucose (65-115) mg/dL POC Glucose 215 (70-110) mg/dL Calculated Osmolal ity (285-295) mOsm/k g Lactic Acid (Sepsi s) 5.6 H* (0.5-2.2) mmol/L Calcium (8.5-10.5) mg/dL Total Bilirubin (0.15-1.2) mg/dL AST (0-32) U/L ALT (0-33) U/L Alkaline Phosphata se (35-105) IU/L Total Protein (6.6-8.7) g/dL Albumin (3.5-5.2) g/dL Globulin (1.3-4.6) g/dL Lipase (13-60) U/L Urine Color (Yellow) Urine Appearance (CLEAR) Urine pH (5-7) Ur Specific Gravit y (1.005-1.030) Urine Protein (Negative) Urine Glucose (UA) (Normal) Urine Ketones (Negative) Urine Blood (Negative) Urine Nitrate (Negative) Urine Bilirubin (NEGATIVE) Urine Urobilinogen (Negative) mg/dL Ur Leukocyte Kiara ase (Negative) Ethyl Alcohol (0-10) mg/dL 09/06/19 Range/Units 19:24 WBC (4.0-10.0) 10^3/ uL RBC (4.1-5.3) 10^6/u L Hgb (11.5-15.3) g/dL Hct (37.0-47.0) % MCV (81-99) fL MCH (28.0-34.0) pg MCHC (30.0-36.0) g/dL RDW (12.1-15.1) % Plt Count (130-400) 10^3/c mm MPV (7.4-10.4) fL Neut % (Auto) % Lymph % (Auto) % [place] % (Auto) % Eos % (Auto) % Baso % (Auto) % Neut # (Auto) (1.8-7.7) 10^3/u L Lymph # (Auto) (0.8-4.8) 10^3/u L [place] # (Auto) (0.2-0.9) 10^3/u L Eos # (Auto) (0.0-0.8) 10^3/u L Baso # (Auto) (0.0-0.1) 10^3/u L Nucleated RBC % (a uto) % Nucleated RBCs # /100WBC Specimen Type Arterial Sample Site Brachial, right ABG pH 7.67 H* (7.35-7.45) ABG pCO2 20.6 L (35-45) mmHg ABG pO2 93.5 (80.0-100.0) mmH g ABG HCO3 23.4 (22-26) mmol/L ABG Base Excess 4.1 H (-2.0-2.0) mmol/ L Jose L Test Pos Hematocrit 34.2 L (37-47) % O2 Delivery Device None FiO2 21.0 % Park Interpretive Specialist ID [email or web address] Sodium (136-145) mmol/L Potassium (3.5-5.1) mmol/L Chloride (98-107) mmol/L Carbon Dioxide (22-29) mmol/L Anion Gap (5-19) BUN (8-23) mg/dL Creatinine (0.5-0.9) mg/dL GFR Calculation (90-130) mL/min Glucose (65-115) mg/dL POC Glucose (70-110) mg/dL Calculated Osmolal ity (285-295) mOsm/k g Lactic Acid (Sepsi s) (0.5-2.2) mmol/L Calcium (8.5-10.5) mg/dL Total Bilirubin (0.15-1.2) mg/dL AST (0-32) U/L ALT (0-33) U/L Alkaline Phosphata se (35-105) IU/L Total Protein (6.6-8.7) g/dL Albumin (3.5-5.2) g/dL Globulin (1.3-4.6) g/dL Lipase (13-60) U/L Urine Color (Yellow) Urine Appearance (CLEAR) Urine pH (5-7) Ur Specific Gravit y (1.005-1.030) Urine Protein (Negative) Urine Glucose (UA) (Normal) Urine Ketones (Negative) Urine Blood (Negative) Urine Nitrate (Negative) Urine Bilirubin (NEGATIVE) Urine Urobilinogen (Negative) mg/dL Ur Leukocyte Kiara ase (Negative) Ethyl Alcohol (0-10) mg/dL Imaging Data^: CT Head: Radiologist's impression: [place] [address] CT Scan Report Signed Patient: Ingris Mendosa Unit #: [id number] : 1955 Age/Sex: 64 / F ADM Date: 09/06/19 Loc: ER Room/Bed: Attending Dr: Ordering Provider/Ordering MD: Melissa Garcia MD Date of Service: 09/06/19 Procedure(s): CT head wo con* [id number] Accession Number(s): [id number] Report Number: [id number] PROCEDURE INFORMATION: Exam: CT Head Without Contrast Exam date and time: 09/06/2019 6:16 PM Age: 64 years old Clinical indication: Pain; Dizziness; Headache; Additional info: Confusion TECHNIQUE: Imaging protocol: Computed tomography of the head without contrast. Radiation optimization: All CT scans at this facility use at least one of these dose optimization techniques: automated exposure control; mA and/or kV adjustment per patient size (includes targeted exams where dose is matched to clinical indication); or iterative reconstruction. COMPARISON: CT head wo con* [id number] 08/25/2019 2:45 AM RADIATION DOSE METRICS: Total DLP (mGy-cm): 1455.54 FINDINGS: Brain: Normal. No hemorrhage. Unremarkable white matter. No mass effect. Ventricles: Normal. No ventriculomegaly. Bones/joints: Unremarkable. No acute fracture. Sinuses: A there is mild mucosal thickening or mucous retention cyst in the right frontal sinus. Additional mucous retention cyst/mucosal thickening in the sphenoid sinuses are noted. Mastoid air cells: Visualized mastoid air cells are well aerated. Soft tissues: Unremarkable. CT/CT head wo con* [id number] IMPRESSION: No acute intracranial abnormality. CXR: Attestation: I personally reviewed and interpreted this imaging study as follows: My impression: no acute abnormality Radiologist's impression: EKG Data^: EKG 1: Attestation: I personally reviewed and interpreted this EKG as follows: EKG Interpretation Date: 09/06/19 EKG interpretation time: 17:25 Interpretation: sinus tach hr [address] or t wave abnormalities qrs 85 qtc 410 Discharge Plan Discharge Patient Disposition: Admitted As Inpatient Admit Provider: Justin Martinez Clinical Impression: Acute kidney injury, Hypokalemia, Weakness Condition: Stable Referrals: Thu Flores FNP [Primary Care Provider] - Coding Level of Care Code ED Structural Shop Helper for Chg Fwd Exam Comprehensive
[2019-09-06] MEDS: sodium chloride 0.9% 1,000 ML 999 ML IV ×2 (18:20→19:22)
[2019-09-06 18:21] LABS: Alanine Aminotransferase 17 U/L (0-33); Albumin Level 3.8 g/dL (3.5-5.2); Alkaline Phosphatase 77 IU/L (35-105); Anion Gap 27.6 (5-19); Aspartate Amino Transferase 22 U/L (0-32); Blood Urea Nitrogen 25 mg/dL (8-23); Calcium 8.2 mg/dL (8.5-10.5); Carbon Dioxide 23 mmol/L (22-29); Chloride 81 mmol/L (98-107); Globulin 3.2 g/dL (1.3-4.6); Glomerular Filtration Rate 23.6 mL/min (90-130); Glucose 197 mg/dL (65-115); Lipase 34 U/L (13-60); Osmolality Calculated 270 mOsm/kg (285-295); Sodium 129 mmol/L (136-145); Total Bilirubin 0.3 mg/dL (0.15-1.2)
[2019-09-06 18:37] LABS: Alcohol Level < 10 mg/dL (0-10); Potassium 2.6 mmol/L (3.5-5.1)
[2019-09-06 18:43] LABS: Arterial Blood Gas Hematocrit 37.2 % (37-47); Base Excess ABG 3.6 mmol/L (-2.0-2.0); Blood Gas Allen Test Pos; Blood Gas Sample Site Brachial, left; Blood Gas Sample Type Arterial; HCO3 ABG 21.4 mmol/L (22-26); PO2 ABG 93.4 mmHg (80.0-100.0)
[2019-09-06 18:49] LABS: Add Urine Microscopic? NO
[2019-09-06 18:52] LABS: Bilirubin Urine Neg (NEGATIVE); Blood Urine Neg (Negative); Glucose Urine UA Norm (Normal); Ketones Urine Negative (Negative); Leukocyte Esterase Urine Negative (Negative); Nitrate Urine Negative (Negative); Protein Urine Neg (Negative); Specific Gravity, Urine 1.015 (1.005-1.030); Urine Appearance Clear (CLEAR); Urine Color Yellow (Yellow); Urobilinogen Urine Neg (Negative); pH Urine 5 (5-7)
[2019-09-06 19:08] LABS: Lactic Acid level (Lactate) 5.6 mmol/L (0.5-2.2)
[2019-09-06 19:11] LABS: ABG PH Result 7.71 (7.35-7.45)
[2019-09-06 19:30] LABS: ABG PCO2 20.6 mmHg (35-45); Arterial Blood Gas Hematocrit 34.2 % (37-47); Base Excess ABG 4.1 mmol/L (-2.0-2.0); Blood Gas Allen Test Pos; Blood Gas Sample Site Brachial, right; Blood Gas Sample Type Arterial; HCO3 ABG 23.4 mmol/L (22-26); PO2 ABG 93.5 mmHg (80.0-100.0)
[2019-09-06 19:31] LABS: ABG PH Result 7.67 (7.35-7.45)
--- NOTE | 2019-09-06 20:57 | PM.HP ---
Providers/Chief Complaint Admitting Physician: Justin Martinez Primary Care Provider: KATRINA Cash Chief Complaint: weight loss, weakness, dizzy History of Present Illness Ingris Mendosa is a 64 year old female with several admissions recently is brought back to emergency department by her for evaluation due to persistent weakness, lack of appetite, cough, and weight loss, especially worse in the last day or so. She has persistent C diff colitis with intermittent diarrhea. Reportedly stools were actually solidifying in the last several days, but again became liquid, with several stools per day starting on Thursday. Since that time she has also been weaker. She has also had poor appetite. She does try to eat, but stops pretty soon and reports feeling like her stomach fills up very fast. She gets nauseated, although denies actual vomiting. She has been on pulse taper dose of vancomycin, and on Thursday dose was decreased to twice daily. Apart from this since last hospitalization she has been taking her medications more consistently with the assistance of home health, and states also has not drank any alcohol since June. also notes mild intermittent confusion. Like during my visit in ER he has to provide most of the history. She does answer questions, cooperates with ROS, and physical exam, her, mild intermittent confusion-like feeling that she had pulled out some tubing, fussing with her blanket, and other vague complaints which do not appear to pertain to real issues. She is noted more hyponatremic today with sodium 129, also concomitant hypokalemia 2.6, and acute kidney injury creatinine 2.1 with normal baseline. She is noted to be in metabolic alkalosis, dehydrated, with elevated lactate of 5.6. She reportedly has history of adrenal insufficiency, and appears to be chronically on prednisone, however, denies hypotension at home and in fact blood pressures have been running on the high side. She has not been taking any NSAIDs at home, but has continued taking Lasix 40 mg daily. She is noted to have mild leukocytosis, 12.7, although no obvious pneumonia appreciated on chest x-ray. She has had intermittent cough. She has been afebrile. On 08/23 she was tested for COVID-19 was negative. Since then states she has not been leaving home. UA also not suggestive of acute infection. While in ER she is complaining of some abdominal tenderness, across the top of the abdomen. Lipase in ER was checked and was normal. Liver parameters without abnormality. CT of the head was unremarkable. She received 2 1000 mL saline boluses with some improvement. She is now somewhat more energetic. She reports that she is hungry. Review of Systems Const: Reports: change in appetite, fatigue and malaise; Denies: fever(s), chills or body aches Eyes: Denies: change in vision or eye redness ENMT: Denies: throat pain, oral sores or ear or mastoid pain Card: Denies: chest pain, edema, pre-syncope or dyspnea on exertion Resp: Reports: non-productive cough; Denies: dyspnea, productive cough, change in phlegm color or hemoptysis GI: Reports: abdominal pain, nausea and diarrhea; Denies: vomiting, constipation, hematochezia or melena : Denies: flank pain, urinary frequency or hematuria Musc: Denies: back pain, joint swelling or joint redness Skin/Breast: Denies: rash, sores or new lesions Neuro: Reports: confusion; Denies: headache(s), numbness in extremities, weakness in extremities, dizziness or seizure-like activity Endo: Denies: polyuria or polydipsia Jeremiah/Lymph: Denies: easy bleeding or purpura All/Imm: Denies: urticaria, throat swelling or tongue swelling Medications/Allergies Home Medications Medication Instructions Recorded Confirmed Last Taken Type aspirin [Aspir-81] 81 mg PO DAILY 04/09/19 09/06/19 09/06/19 History atorvastatin 80 mg PO QPM 04/09/19 09/06/19 09/06/19 History furosemide 40 mg PO DAILY 04/09/19 09/06/19 09/06/19 History levothyroxine 75 mcg PO DAILY 04/09/19 09/06/19 09/06/19 History lidocaine 1 patch TOPICAL PRN PRN 04/09/19 09/06/19 Unknown History metoprolol tartrate 25 mg PO BID 04/09/19 09/06/19 09/06/19 History pantoprazole 40 mg PO DAILY 04/09/19 09/06/19 09/06/19 History insulin aspart U-100 [Novolog See Rx Instructions .ROUTE 04/10/19 09/06/19 09/05/19 Rx Flexpen U-100 Insulin] .COMPLEX #0 ml venlafaxine 150 mg 150 mg PO DAILY #30 cap 07/05/19 09/06/19 09/06/19 Rx capsule,extended release 24 hr quetiapine [Seroquel] 50 mg PO BEDTIME 08/03/19 09/06/19 09/06/19 History metoclopramide HCl 5 mg tablet 5 mg PO .qac #90 tab 08/10/19 09/06/19 09/06/19 Rx acetaminophen [Tylenol Extra 1,000 mg PO PRN 08/24/19 09/06/19 09/05/19 History Strength] glimepiride 4 mg PO DAILY 08/24/19 09/06/19 09/06/19 History hydroxyzine pamoate [Vistaril] 50 mg PO TID PRN 08/24/19 09/06/19 09/05/19 History metformin 1,000 mg PO BID 08/24/19 09/06/19 09/06/19 History trazodone 150 mg PO BEDTIME 08/24/19 09/06/19 09/05/19 History insulin glargine [Lantus U-100 20 unit SUBCUT DAILY 30 Days ml 08/30/19 09/06/19 09/06/19 Rx Insulin] prednisone 10 mg PO DAILY 30 Days #30 tab 08/30/19 09/06/19 09/06/19 Rx vancomycin See Rx Instructions .ROUTE 08/30/19 09/06/19 09/06/19 Rx .COMPLEX #48 cap Allergies Allergy/AdvReac Type Severity Reaction Status Date / Time [facility] Allergy Severe ALGY-Hives Verified 09/06/19 19:05 PFSH Acute PFSH: Medical History C. 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, recurrent severe without psychotic features Morbid obesity Post-traumatic stress disorder, chronic Surgical History H/O esophagogastroduodenoscopy H/O: hysterectomy History of bunionectomy bilateral Hx of cholecystectomy Status post colonoscopy Family History Other CAD (coronary artery disease) Cancer Diabetes Hypertension Denies family history of Anesthesia complication Bleeding disorder Social History Smoking and tobacco status: current every day smoker cigars Cigars smoked per week: 28 Smoking risk assessment/counseling performed?: No Alcohol intake: former Former alcohol use details: Reportedly has not had any alcohol since June Substance/Drug Use: never Household members: spouse Housing: House Marital status: Current occupational status: retired History of recent travel: No Vitals/I&O/Wt Last Vital Signs Temp 98.2 F 09/06/19 17:18 Pulse 98 09/06/19 20:41 Resp 18 09/06/19 20:41 BP 156/92 09/06/19 20:41 Pulse Ox 98 09/06/19 20:41 Weight last 48 hrs Weight 71.668 kg Physical Exam Const: COMMON NORMALS: no acute distress and patient oriented x3 GENERAL APPEARANCE: anxious NUTRITIONAL APPEARANCE: overweight ORIENTATION/CONSCIOUSNESS: Yes awake and Yes Other orientation findings (Somewhat restless, with mild confusion intermittently (worried that she pulled out some tubing, fussing with her blanket, other complaints)) OTHER: at bedside, provides most of history. HENMT: COMMON NORMALS: oropharynx normal Neck/C-Spine: COMMON NORMALS: no JVD Resp: COMMON NORMALS: normal respiratory effort and clear to auscultation bilaterally AUSCULTATION: clear to auscultation bilaterally Cardio: COMMON NORMALS: no JVD, regular rhythm, S1 normal heart sound present, S2 normal heart sound present and No murmurs present (Cardio) RHYTHM: regular rhythm HEART SOUNDS: S1 normal heart sound present and S2 normal heart sound present GI: COMMON NORMALS: Normal to inspection, nondistended, normoactive bowel sounds present and Soft to palpation PALPATION: Yes Soft to palpation and Yes Tenderness to palpation present (GI) (Across upper abdomen) Extremity: COMMON NORMALS: no joint enlargement and no pedal edema Neuro: COMMON NORMALS: patient oriented x3 and moves all extremities Skin: COMMON NORMALS: no rashes or lesions noted GENERAL SKIN EXAM: no rashes or lesions noted Data : 09/06/19 17:53 09/06/19 17:53 Micro: Microbiology 09/06/19 17:54 Blood Culture - Preliminary Blood SPECIMEN COLLECTED 09/06/19 17:53 Blood Culture - Preliminary Blood SPECIMEN COLLECTED A&P Assessment and plan (1) Weakness: Multifactorial. Suspected secondary to dehydration, with metabolic normality, metabolic alkalosis, hyponatremia, hypokalemia, acute kidney injury. Recently with poor appetite, nausea, appears to be perhaps secondary to gastroparesis, but overall oral intake has been low. Continue taking Lasix. Also appears to have perhaps some worsening of C. difficile colitis, with multiple liquid bowel movements a day since Thursday. On Thursday had just tapered down her dosing to twice a day. She is received 2 boluses of IV fluids in ER, will continue IV hydration at this time. Hold Lasix. Monitor I&O and volume status due to history of diastolic CHF. Treat hyperkalemia, check magnesium, additional assessment for acute kidney injury. Monitor renal function. Escalate C. difficile treatment. Continue Reglan for gastroparesis. Add Glucerna to meals. Continue prednisone for adrenal insufficiency. Check TSH. Due to abdominal tenderness, history of persistent C. difficile, will assess CT abdomen pelvis, although discussed with due to acute kidney injury contrast is not an option for them. She would not tolerate much oral contrast at this time. This may need to be reassessed depending on clinical condition. For now we will obtain plain CAT scan. Appears to have perhaps mild bronchitis as well, although is oxygenating well on room air. Hold if some breathing treatments. At this time does not have evidence of severe infection apart from the C. difficile, however, continue to monitor clinical condition reassess for any changes. Does have quite significant lactic acidosis which is thought to be perhaps secondary to hypovolemia, hypoperfusion, however cannot exclude left acidosis secondary to metformin. Is not a common, but potentially dangerous adverse effect. For now hold metformin. Consideration may need to be given to discontinuation. Status: Acute (2) Hyponatremia: This is suspected bulimic, with poor oral intake, continue Lasix. Persistent diarrhea. At this time has received 2 L fluid bolus in ER. For now hold off IVF infusion, recheck BMP for sodium, renal function. This appears to be acute on chronic hyponatremia, back on 08/29 sodium was 133. Mild worsening today down to 129. Avoid rapid increase in sodium level. Status: Acute (3) Hypokalemia: Replace. Check magnesium. Hold Lasix for now. Status: Acute (4) Acute kidney injury: Suspect this is likely prerenal, with hypovolemia secondary to poor oral intake, continue Lasix intake. Received fluid challenge in ER. Reassess renal function. Hold diuretic for now. Check urine studies. Renal ultrasound. Based on renal function appears to be normal. denies NSAID intake at home. Status: Acute (5) Acute encephalopathy: There is mild encephalopathy seen here in the ER. CT of the head was without acute abnormality. Suspect this is secondary to metabolic derangements. She shows only mild confusion, feeling like she has pulled out IV or tubing which is not there, fussing with her blankets, and other minor complaints. She does otherwise appear oriented x3, although not a good historian and needs to provide most of the history. She cooperates with ROS and exam. Continue to monitor. Fall precautions. At home she walks with assistance with a walker. Status: Acute (6) Diabetic gastroparesis: Continue Reglan. This is likely contributing to her poor appetite and oral intake. She reports she feels like her stomach gets full very easily. Reports that she had been previously assessed by EGD with Dr. Astorga. Status: Acute (7) Weight loss: This appears to be multifactorial with poor oral intake, poor appetite, nausea, gastroparesis. More recently more weight loss with dehydration, continued Lasix intake. Persistent/recurrent diarrhea with C. difficile colitis. Work-up and treatment as above. Please make sure she is up-to-date with her usual screenings. Status: Acute (8) C. difficile colitis: Appears to have worsening of C. difficile colitis, possibly with complication with acute kidney injury, but also other metabolic abnormalities. She had just decreased her vancomycin dosing to twice daily on Thursday. For now we will escalate back up to 4 times daily dosing. Monitor symptoms. Contact isolation. Status: Acute (9) Adrenal insufficiency: Reported chronic adrenal insufficiency. At this time will continue prednisone. Does not appear to be in adrenal crisis. Blood pressure is actually on the high side. Hypo-natremia appears likely secondary to hypovolemia. Status: Acute (10) Hypothyroidism: Check TSH. Continue levothyroxine. Status: Acute (11) Bronchitis: Perhaps mild bronchitis. Very mild wheeze on exam. Denies history of eczema or COPD. She is a smoker, however. No obvious signs of pneumonia on chest x-ray. For now we will add breathing treatments. Status: Acute (12) Insulin dependent type 2 diabetes mellitus: Hold oral medications at this time. Insulin sliding scale. Consistent carbohydrate diet. Status: Acute (13) Hypertension: Monitor blood pressures. Liberalize diet due to hyponatremia. Status: Acute (14) Lactic acidosis: Significant elevation in lactic acid up to 5.5. Have secondary to hypovolemia, hypoperfusion with dehydration. There is some abdominal tenderness, although abdomen is soft, there is no obvious signs to be pointing to bowel ischemia. Given lower suspicion for now assessed with noncontrast CT, however, with low threshold for reevaluation with contrast if needed. Less likely lactic acidosis secondary to metformin, however, cannot exclude entirely. For now we will hold this medication, and consider discontinuation after discharge. Status: Acute Attestations Medical Necessity Statement*: Admission of over 2 midnights management needed for assessment of management of generalized weakness, hypokalemia, multiple metabolic derangements, C. difficile colitis, and other problems as outlined above. Coding Level of Care Code Acute [employer] for [facility] Fwd Diagnoses Weakness R53.1 Hyponatremia E87.1 Hypokalemia E87.6 Acute kidney injury N17.9 Acute encephalopathy G93.40 Diabetic gastroparesis E11.43; K31.84 Weight loss R63.4 C. difficile colitis A04.72 Adrenal insufficiency E27.40 Hypothyroidism E03.9 Bronchitis J40 Insulin dependent type 2 diabetes mellitus E11.9; Z79.4 Hypertension I10 Lactic acidosis E87.2
--- NOTE | 2019-09-06 21:12 | CTR_ITS ---
PROCEDURE INFORMATION: Exam: CT Abdomen And Pelvis Without Contrast Exam date and time: 09/06/2019 9:57 PM Age: 64 years old Clinical indication: Abdominal pain; Prior surgery; Surgery type: Gb, hyst, stimulator; Additional info: Abdominal tenderness TECHNIQUE: Imaging protocol: Computed tomography of the abdomen and pelvis without contrast. Radiation optimization: All CT scans at this facility use at least one of these dose optimization techniques: automated exposure control; mA and/or kV adjustment per patient size (includes targeted exams where dose is matched to clinical indication); or iterative reconstruction. COMPARISON: CT abdomen pelvis w con* [id number] 08/24/2019 10:34 PM FINDINGS: Tubes, catheters and devices: A balloon bladder catheter is present. A neurostimulator device is present. Liver: Unremarkable.No mass. Gallbladder and bile ducts: There has been a cholecystectomy. There is no common bile duct dilation. Pancreas: Normal. No ductal dilation. Spleen: Normal. No splenomegaly. Adrenals: Normal. No mass. Kidneys and ureters: There is no evidence of hydronephrosis. There is no evidence of renal calcifications. Stomach and bowel: Moderate diverticulosis is present in the distal colon. There is no evidence of colitis/diverticulitis. There is no evidence of intestinal perforation or obstruction. Appendix: A normal appendix is identified. Intraperitoneal space: Unremarkable. No free air. No significant fluid collection. Vasculature: The aorta demonstrates moderate atherosclerotic calcification. Lymph nodes: Unremarkable.No enlarged lymph nodes. Bladder: The bladder is decompressed. Reproductive: There has been a hysterectomy. Bones/joints: There are severe diffuse degenerative changes in the spine. No acute fracture or subluxation. There is mild dextroscoliosis. There is severe degenerative changes in the hip joints right greater than left. Soft tissues: Unremarkable. CT/CT abdomen pelvis wo con [id number] IMPRESSION: 1. No acute abnormality. Postoperative changes and chronic findings are noted as above. 2. Diverticulosis without diverticulitis. Total DLP (mGy-cm): 1154.06 Radiation Dose CTDIVOL = (mGy): DLP = 1154.06 (mGy-cm)
[2019-09-06] MEDS: potassium chloride premix 40 MEQ/100 ML PREMIX 25 MEQ IV (21:45)
[2019-09-06] MEDS: acetaminophen 325 mg Tablet 650 MG PO (22:25)
[2019-09-06 22:32] LABS: Glucose Point of Care 57 mg/dL (70-110)
[2019-09-06 22:32] LABS: Glucose Point of Care 82 mg/dL (70-110)
[2019-09-06 22:54] LABS: Urine Creatinine 78 mg/dL (28-217)
[2019-09-06 22:59] LABS: Blood Urea Nitrogen 21 mg/dL (8-23); Calcium 7.1 mg/dL (8.5-10.5); Carbon Dioxide 26 mmol/L (22-29); Chloride 91 mmol/L (98-107); Creatine Phosphokinase 26 U/L (26-192); Glomerular Filtration Rate 34.9 mL/min (90-130); Glucose 70 mg/dL (65-115); Osmolality Calculated 269 mOsm/kg (285-295); Phosphorus 3.6 mg/dL (2.5-4.5); Sodium 132 mmol/L (136-145); Thyroid Stimulating Hormone 0.49 uIU/mL (0.27-4.20)
[2019-09-06] MEDS: trazodone 150 mg Tablet 75 MG PO (23:00)
[2019-09-06] MEDS: heparin 5,000 unit/mL INJ 1 mL 5000 UNIT SUBCUT (23:00)
[2019-09-06] MEDS: sodium chloride 0.9% (100 ml) 100 ML 10 ML (23:01)
[2019-09-06 23:15] LABS: Magnesium 0.9 mg/dL (1.7-2.3)
[2019-09-06 23:34] LABS: Urea Nitrogen,Urine Random 268 mg/dL
[2019-09-06] MEDS: magnesium sulfate premix 4 GM/100 ML PREMIX IV (23:40)
[2019-09-07] VITALS (78 sets, daily range): BP systolic 113–168; BP diastolic 61–101; PULSE 68–120; RESP 14–36; TEMP 36.3–36.9; O2SAT 82–99
[2019-09-07] MEDS: lactated ringers 1,000 ML 30 ML IV (02:03)
[2019-09-07] MEDS: ipratropium-albuterol 3 mL Neb INHALATION ×2 (02:59→08:36)
[2019-09-07] MEDS: LORazepam 2 mg/mL INJ 1 mL 0.5 MG IVP (04:46)
[2019-09-07] MEDS: heparin 5,000 unit/mL INJ 1 mL 5000 UNIT SUBCUT ×3 (04:46→20:28)
[2019-09-07 08:28] LABS: Glucose Point of Care 135 mg/dL (70-110)
[2019-09-07] MEDS: pantoprazole DR 40 mg Tablet PO (08:32)
[2019-09-07] MEDS: venlafaxine ER (24HR) 75 mg Capsule PO (08:32)
[2019-09-07] MEDS: metoprolol tartrate 50 mg Tablet 25 MG PO ×2 (08:32→17:52)
[2019-09-07] MEDS: predniSONE 10 mg Tablet PO (08:33)
[2019-09-07] MEDS: metoclopramide 10 mg Tablet 5 MG PO ×3 (08:34→17:52)
[2019-09-07] MEDS: levothyroxine 150 mcg Tablet 75 MCG PO (08:34)
[2019-09-07] MEDS: aspirin 81 mg EC Tablet PO (08:34)
[2019-09-07] MEDS: insulin glargine 100 units/1 mL 15 UNIT SUBCUT (08:35)
--- NOTE | 2019-09-07 11:27 | XR_ITS ---
WS: [id number] XR abdomen min 2V [id number] REASON FOR EXAM: c diff, r/o megacolon FINDINGS: Mildly dilated large bowel throughout the colon is seen. A definite megacolon is not noted. There is evidence of a stimulator seen in the left abdomen. The mucosa throughout the large bowel is not abnormal. XR/XR abdomen min 2V [id number] IMPRESSION: Mild gas in the intestinal tract but no megacolon.
[2019-09-07 11:30] LABS: Glucose Point of Care 196 mg/dL (70-110)
--- NOTE | 2019-09-07 11:33 | PM.PN ---
Subjective Subjective: Interval history: Admitted overnight. H&P and labs noted. On examination today patient is lying comfortably in bed, appearing dehydrated, arousable and AO x3, has had 2 episodes of mucoid foul-smelling partially formed bowel movements. Complaining of nausea but no vomiting. Denies of having headache, abdominal pain, palpitation. No blood work available from today morning. On examination patient is on normal saline 30 cc/h, 2 L nasal cannula saturating 98%, heart rate of 107 with a blood pressure of 110/80 mmHg. Vitals/I&O/Wt Last Vital Signs Temp 98.5 F 09/07/19 09:00 Pulse 85 09/07/19 10:30 Resp 19 H 09/07/19 10:30 BP 142/70 09/07/19 09:30 Pulse Ox 93 09/07/19 10:30 09/06/19 09/07/19 09/07/19 22:59 06:59 14:59 Intake Total 240 / 240 Output Total 30 / 30 350 / 380 Balance -30 / -30 -110 / -140 Weight last 48 hrs Weight 75.75 kg Weight 71.668 kg Physical Exam Narrative: EXAM NARRATIVE: General: No acute distress, AO x3, dehydrated, drowsy but arousable HEENT: PERRLA, pupils bilaterally equal and reactive Chest: Normal vesicular breath sounds, no added sounds, equal good air entry bilaterally CVS: S1-S2 regular, no murmurs, tachycardia, no gallops, no rubs Abdomen: Soft, nontender, no organomegaly, bowel sounds present but sluggish Neuro: No focal deficits, no facial deformity, AO x3, power 4 /5 in all limbs Urinary Catheter Management^: Magana: Cath Placed During This Visit: yes Reason for Continuing Indwelling Catheter: Accurate Measurement of Urinary Output in Critically Ill Patients Urinary Catheter Date of Insertion: 09/06/19 Urinary Catheter Time of Insertion: 22:20 Data : 09/07/19 12:00 09/07/19 14:00 Micro: Microbiology 09/06/19 17:54 Blood Culture - Preliminary Blood SPECIMEN COLLECTED 09/06/19 17:53 Blood Culture - Preliminary Blood SPECIMEN COLLECTED A&P Assessment and plan (1) C. difficile colitis: Status: Acute (2) Weakness: Status: Acute (3) Lactic acidosis: Status: Acute (4) Hyponatremia: Status: Acute (5) Hypokalemia: Status: Acute (6) Acute kidney injury: Status: Acute (7) Acute encephalopathy: Status: Acute (8) Diabetic gastroparesis: Continue Reglan. This is likely contributing to her poor appetite and oral intake. She reports she feels like her stomach gets full very easily. Reports that she had been previously assessed by EGD with Dr. Astorga. Status: Acute (9) Adrenal insufficiency: Status: Acute (10) Hypothyroidism: Check TSH. Continue levothyroxine. Status: Acute (11) Bronchitis: Perhaps mild bronchitis. Very mild wheeze on exam. Denies history of eczema or COPD. She is a smoker, however. No obvious signs of pneumonia on chest x-ray. For now we will add breathing treatments. Status: Acute (12) Insulin dependent type 2 diabetes mellitus: Status: Acute (13) Hypertension: Monitor blood pressures. Liberalize diet due to hyponatremia. Status: Acute (14) Weight loss: This appears to be multifactorial with poor oral intake, poor appetite, nausea, gastroparesis. More recently more weight loss with dehydration, continued Lasix intake. Persistent/recurrent diarrhea with C. difficile colitis. Work-up and treatment as above. Please make sure she is up-to-date with her usual screenings. Status: Acute (15) Metabolic alkalosis with respiratory acidosis: Status: Acute Additional A&P Information C. diff: Appears to have worsening of C. difficile colitis, possibly with complication with acute kidney injury, but also other metabolic abnormalities. She had just decreased her vancomycin dosing to twice daily on Thursday. Continue contact isolation. We will increase vancomycin again to 125 mg 6 times a day. Most likely patient would need another 14 days of the same and after that tapering down. Weakness: Multifactorial. Suspected secondary to dehydration, with metabolic abnormality, metabolic alkalosis, hyponatremia, hypokalemia, acute kidney injury. Recently with poor appetite, nausea, appears to be perhaps secondary to gastroparesis, but overall oral intake has been low while continuing Lasix . Also appears to have perhaps some worsening of C. difficile colitis, with multiple liquid bowel movements a day since Thursday. On Thursday had just tapered down her dosing to twice a day. Continue to monitor input and output, daily weights. CD treatment as above. Increase fluid to 75 cc/h. Change fluid to normal saline. Continue Reglan for gastroparesis also add Glucerna to meals. Repeat lactate levels, ABG, ionized calcium, CMP, CBC. As lactate levels on admission were elevated CT abdomen was negative for any perforation. Due to mild tenderness and sluggish bowel sounds we will repeat an abdominal series to rule out toxic megacolon. Elevated lactate levels: Due to hypovolemia, hypoperfusion, severe dehydration because of C. difficile colitis diarrhea and poor oral intake. Cannot rule out toxic megacolon so doing imaging as above. Could most likely be because of metformin as an outpatient as well. Repeat lactate levels. Continue with IV hydration. GILBERTO: Baseline creatinine normal. On admission 2.1 coming down to 1.5 last night. Suspect this is likely prerenal, with hypovolemia secondary to poor oral intake, continue Lasix intake. Renal ultrasound results awaited. Urine studies appreciated. GILBERTO along with multiple metabolic abnormalities like hyponatremia, hypokalemia, mixed respiratory and metabolic alkalosis. Medical reconciliation done for nephrotoxic drugs. Hyponatremia:This is suspected bulimic, with poor oral intake, and continuing Lasix along with persistent diarrhea. This appears to be acute on chronic hyponatremia, back on 08/29 sodium was 133. Mild worsening today down to 129. Avoid rapid increase in sodium level. Hypokalemia: Continue to monitor. Start patient on 20 mEq of potassium along with normal saline. Also add 40 mg of oral potassium. Acute Encephalopathy:There is mild encephalopathy seen here in the ER. CT of the head was without acute abnormality. Suspect this is secondary to metabolic derangements. She shows only mild confusion, feeling like she has pulled out IV or tubing which is not there, fussing with her blankets, and other minor complaints. She does otherwise appear oriented x3, although not a good historian and needs to provide most of the history. She cooperates with ROS and exam. Continue to monitor. Fall precautions. At home she walks with assistance with a walker. Adrenal Insufficiency: Reported chronic adrenal insufficiency. At this time will continue prednisone. Does not appear to be in adrenal crisis. Blood pressure is actually on the high side. Hypo-natremia appears likely secondary to hypovolemia. Type 2 diabetes mellitus: Hold oral medications along with long-acting insulin for now. Continue insulin sliding scale at moderate dose. Depending on requirements in next 24 hours we will see if patient needs Lantus or not. Patient would most likely not need metformin as an outpatient because of severe lactic acidosis and GILBERTO because of fluctuant oral intake and diarrhea as. History of CHF: Last echocardiogram done 1 week ago showed an EF of 55% with grade 1 diastolic dysfunction. Patient is dehydrated right now. Continue with IV fluids. Most likely patient does not need any Lasix as an outpatient. Full code. Full liquid diet. Heparin Because of recurrent admissions, generalized deconditioning, weakness patient would most likely need SNF placement for safe discharge. Physical therapy evaluation and treat We will consult care coordination. Attestations Medical Necessity Statement*: Metabolic encephalopathy, hyponatremia, metabolic alkalosis, hypokalemia, acute encephalopathy, C. 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 difficile colitis A04.72 Weakness R53.1 Lactic acidosis E87.2 Hyponatremia E87.1 Hypokalemia E87.6 Acute kidney injury N17.9 Acute encephalopathy G93.40 Diabetic gastroparesis E11.43; K31.84 Adrenal insufficiency E27.40 Hypothyroidism E03.9 Bronchitis J40 Insulin dependent type 2 diabetes mellitus E11.9; Z79.4 Hypertension I10 Weight loss R63.4 Metabolic alkalosis with respiratory acidosis E87.4
[2019-09-07] MEDS: famotidine 20 mg/2 mL INJ IVP ×3 (11:49→23:19)
[2019-09-07] MEDS: sodium chlor 0.9% + KCl 20 mEq 20 MEQ/1,000 ML BAG 75 MEQ IV ×2 (11:50→23:55)
[2019-09-07 12:17] LABS: Hematocrit 32.1 % (37.0-47.0); Hemoglobin 11.2 g/dL (11.5-15.3); Mean Corpuscular HGB Conc 34.9 g/dL (30.0-36.0); Mean Corpuscular Hemoglobin 28.9 pg (28.0-34.0); Mean Corpuscular Volume 82.7 fL (81-99); Platelet Count 303 10^3/cmm (130-400); Red Blood Count 3.88 10^6/uL (4.1-5.3); White Blood Count 9.1 10^3/uL (4.0-10.0)
[2019-09-07 12:29] LABS: Lactate (Lactic Acid level) 1.1 mmol/L (0.5-2.2)
[2019-09-07 12:33] LABS: Absolute Neutrophil 7.6 10^3/cmm (1.4-6.5); Absolute Segmented Neutrophil 7.6 10/cmm (1.6-7.1); Lymphocytes 13 %; Monocytes Absolute 0.3 10^3/cmm (0.1-0.6); Platelet Estimate Normal (Normal); Segmented Neutrophils 84 %; Total Cells Counted 100 (0-100)
--- NOTE | 2019-09-07 14:30 | XR_ITS ---
WS: [id number] XR chest 1V portable [id number] REASON FOR EXAM: Post PICC Placement FINDINGS: PICC line is seen extending from the left side tip is noted in the mid superior vena cava s atisfactory. SCS electrodes are seen in good position of the thoracic spine unchanged. There is arteriosclerotic changes seen in the arch the aorta. XR/XR chest 1V portable [id number] IMPRESSION: PICC line in good position extends from the left side.
[2019-09-07 14:51] LABS: Alanine Aminotransferase 17 U/L (0-33); Albumin Level 3.5 g/dL (3.5-5.2); Alkaline Phosphatase 77 IU/L (35-105); Anion Gap 16.2 (5-19); Aspartate Amino Transferase 20 U/L (0-32); Blood Urea Nitrogen 14 mg/dL (8-23); Calcium 7.8 mg/dL (8.5-10.5); Carbon Dioxide 26 mmol/L (22-29); Chloride 91 mmol/L (98-107); Globulin 3.3 g/dL (1.3-4.6); Glomerular Filtration Rate 55.6 mL/min (90-130); Glucose 238 mg/dL (65-115); Magnesium 2.3 mg/dL (1.7-2.3); Osmolality Calculated 274 mOsm/kg (285-295); Potassium 3.2 mmol/L (3.5-5.1); Sodium 130 mmol/L (136-145); Total Bilirubin 0.3 mg/dL (0.15-1.2); Total Protein 6.8 g/dL (6.6-8.7)
[2019-09-07 17:06] LABS: Glucose Point of Care 248 mg/dL (70-110)
[2019-09-07 20:06] LABS: Glucose Point of Care 187 mg/dL (70-110)
[2019-09-07] MEDS: trazodone 150 mg Tablet 75 MG PO (20:28)
[2019-09-07] MEDS: quetiapine 25 mg Tablet PO (20:28)
--- NOTE | 2019-09-07 21:28 | US_ITS ---
WS: [id number] RENAL ULTRASOUND REASON FOR EXAM: GILBERTO TECHNIQUE: Grayscale and Doppler ultrasound examination of the kidneys. FINDINGS: Right kidney: Right kidney measures 9.8 cm x 4.1 cm x 4.8 cm. Cortex 1.05 cm. Left kidney: Left kidney measures 10.3 cm x 4.9 cm x 5.1 cm. Cortex 1.14 cm. A Magana catheter is noted in the bladder and this is poorly seen for interpretation. US/US renal BI* [id number] IMPRESSION: Grossly negative renal study.
--- NOTE | 2019-09-07 22:23 | PC.NURSE ---
1899 Received report from DEBRA Quiroz. Patient is resting comfortably. 1929 Patient is requesting sandwhich or some other food. Re-educated on diet and offered full liquid alternatives which were declined. 2214 Gave report to NKECHI Saba. Patient was safely transported to wheelchair and taken to [facility] by NKECHI Villa.
[2019-09-08] VITALS (7 sets, daily range): BP systolic 134–160; BP diastolic 75–82; PULSE 74–108; RESP 16–19; TEMP 36.4–36.9; O2SAT 94–98; BMI 29.5
[2019-09-08 05:02] LABS: Basophils % 0.3 %; Eosinophils # 0.1 10^3/uL (0.0-0.8); Eosinophils % 0.7 %; Hematocrit 30.3 % (37.0-47.0); Lymphocytes # 3.4 10^3/uL (0.8-4.8); Lymphocytes % 37.4 %; Mean Corpuscular Hemoglobin 28.3 pg (28.0-34.0); Mean Corpuscular Volume 85.8 fL (81-99); Mean Platelet Volume 10.3 fL (7.4-10.4); Monocytes # 0.8 10^3/uL (0.2-0.9); Monocytes % 8.3 %; Neutrophils # 4.8 10^3/uL (1.8-7.7); Neutrophils % 52.9 %; Nucleated Red Blood Cells % 0 %; Platelet Count 411 10^3/cmm (130-400); Red Blood Count 3.53 10^6/uL (4.1-5.3); Red Cell Distribution Width 15.2 % (12.1-15.1); White Blood Count 9.1 10^3/uL (4.0-10.0)
[2019-09-08 05:35] LABS: Alanine Aminotransferase 18 U/L (0-33); Albumin Level 3.1 g/dL (3.5-5.2); Alkaline Phosphatase 70 IU/L (35-105); Anion Gap 12.3 (5-19); Aspartate Amino Transferase 21 U/L (0-32); Blood Urea Nitrogen 8 mg/dL (8-23); Carbon Dioxide 27 mmol/L (22-29); Chloride 99 mmol/L (98-107); Globulin 2.4 g/dL (1.3-4.6); Glomerular Filtration Rate 100.3 mL/min (90-130); Glucose 141 mg/dL (65-115); Magnesium 1.9 mg/dL (1.7-2.3); Osmolality Calculated 278 mOsm/kg (285-295); Potassium 3.3 mmol/L (3.5-5.1); Sodium 135 mmol/L (136-145); Total Bilirubin 0.2 mg/dL (0.15-1.2); Total Protein 5.5 g/dL (6.6-8.7)
[2019-09-08] MEDS: heparin 5,000 unit/mL INJ 1 mL 5000 UNIT SUBCUT ×3 (05:45→21:57)
--- NOTE | 2019-09-08 06:13 | PC.NURSE ---
Patient asked this nurse to get her a gown so that she could walk to the bathroom. After getting the gown on and assisting the patient out of bed, patient walked over to her bag and started going through it angrily. Patient dropped a package on the floor that looked to be a pack of cigarettes. As patient was going through her bag she was getting more agitated saying, I can't find it. This nurse asked the patient what she was looking for. Patient stated I am looking for my potato pancake frier. This nurse informed patient that smoking is not allowed in the facility and asked that the patient would allow staff to lock her cigarettes and potato pancake frier up in [facility] for safe keeping until she is discharged and leaving to go home. Patient said, I will just go outside to smoke. This nurse informed the patient that she would not be able to go outside to smoke. This nurse asked for the patients nurse to come in and speak with her.
[2019-09-08] MEDS: metoclopramide 10 mg Tablet 5 MG PO ×3 (07:04→16:46)
[2019-09-08 07:57] LABS: Glucose Point of Care 166 mg/dL (70-110)
[2019-09-08] MEDS: famotidine 20 mg/2 mL INJ IVP ×2 (10:46→22:44)
[2019-09-08] MEDS: metoprolol tartrate 50 mg Tablet 25 MG PO ×2 (10:49→16:45)
[2019-09-08] MEDS: predniSONE 10 mg Tablet PO (10:50)
[2019-09-08] MEDS: levothyroxine 150 mcg Tablet 75 MCG PO (10:50)
[2019-09-08] MEDS: venlafaxine ER (24HR) 75 mg Capsule PO (10:52)
[2019-09-08] MEDS: aspirin 81 mg EC Tablet PO (10:52)
[2019-09-08 11:51] LABS: Glucose Point of Care 227 mg/dL (70-110)
--- NOTE | 2019-09-08 14:15 | P.PN_ITS ---
Subjective Subjective: Interval history: No acute events overnight. Patient is doing a lot better. She is awake alert oriented having full conversation with me. Complaining of mild abdominal pain. States at home she was having multiple episodes of diarrhea and nausea even though she was taking fluids but was feeling more and more dehydrated. States diarrhea has been going on for a long time. She has had multiple colonoscopies in the past with her primary care provider along with biopsies but has not been able to follow-up. Vitals/I&O/Wt Last Vital Signs Temp 98.1 F 09/08/19 11:28 Pulse 89 09/08/19 11:28 Resp 18 09/08/19 11:28 BP 134/75 09/08/19 11:28 Pulse Ox 96 09/08/19 11:28 09/07/19 09/08/19 09/08/19 22:59 06:59 14:59 Intake Total 906.25 / 1106.25 240 / 240 Output Total 1000 / 1001 Balance -93.75 / 105.25 240 / 240 Weight last 48 hrs Weight 75.75 kg Weight 75.75 kg Weight 71.668 kg Physical Exam Narrative: EXAM NARRATIVE: General: No acute distress, AO x3, HEENT: PERRLA, pupils bilaterally equal and reactive Chest: Normal vesicular breath sounds, no added sounds, equal good air entry bilaterally CVS: S1-S2 regular, no murmurs, tachycardia, no gallops, no rubs Abdomen: Soft, nontender, no organomegaly, bowel sounds present but sluggish Neuro: No focal deficits, no facial deformity, AO x3, power 4 /5 in all limbs Urinary Catheter Management^: Magana: Cath Placed During This Visit: yes Reason for Continuing Indwelling Catheter: Other Urinary Catheter Date of Insertion: 09/06/19 Urinary Catheter Time of Insertion: 22:20 Data : 09/08/19 04:16 09/08/19 04:16 Micro: Microbiology 09/06/19 17:54 Blood Culture - Preliminary Blood NEGATIVE TO DATE 09/06/19 17:53 Blood Culture - Preliminary Blood NEGATIVE TO DATE A&P Assessment and plan (1) C. difficile colitis: Status: Acute (2) Weakness: Status: Acute (3) Lactic acidosis: Status: Acute (4) Hyponatremia: Status: Acute (5) Hypokalemia: Status: Acute (6) Acute kidney injury: Status: Acute (7) Acute encephalopathy: Status: Acute (8) Diabetic gastroparesis: Continue Reglan. This is likely contributing to her poor appetite and oral intake. She reports she feels like her stomach gets full very easily. Reports that she had been previously assessed by EGD with Dr. Astorga. Status: Acute (9) Adrenal insufficiency: Status: Acute (10) Hypothyroidism: Check TSH. Continue levothyroxine. Status: Acute (11) Bronchitis: Perhaps mild bronchitis. Very mild wheeze on exam. Denies history of eczema or COPD. She is a smoker, however. No obvious signs of pneumonia on chest x-ray. For now we will add breathing treatments. Status: Acute (12) Insulin dependent type 2 diabetes mellitus: Status: Acute (13) Hypertension: Monitor blood pressures. Liberalize diet due to hyponatremia. Status: Acute (14) Weight loss: This appears to be multifactorial with poor oral intake, poor appetite, n ausea, gastroparesis. More recently more weight loss with dehydration, continued Lasix intake. Persistent/recurrent diarrhea with C. difficile colitis. Work-up and treatment as above. Please make sure she is up-to-date with her usual screenings. Status: Acute (15) Metabolic alkalosis with respiratory acidosis: Status: Acute Additional A&P Information C. diff: Appears to have worsening of C. difficile colitis, possibly with complication with acute kidney injury, but also other metabolic abnormalities. She had just decreased her vancomycin dosing to twice daily on Thursday. Continue contact isolation. Continue with vancomycin again to 125 mg 6 times a day. Most likely patient would need another 14 days of the same and after that tapering down. Diarrhea could be more than C. difficile or also. Patient has had multiple colonoscopies in the past and has followed up with gauge and instrument inspector but not followed through. Patient would most likely need to follow-up with gauge and instrument inspector as an outpatient. Diarrhea could be a part of gastroparesis. We will check stool studies again. We will give a trial of gluten-free diet. Patient is agreeable to the same. Weakness: Multifactorial. Suspected secondary to dehydration, with metabolic abnormality, metabolic alkalosis, hyponatremia, hypokalemia, acute kidney injury. Recently with poor appetite, nausea, appears to be perhaps secondary to gastroparesis, but overall oral intake has been low while continuing Lasix . Also appears to have perhaps some worsening of C. difficile colitis, with multiple liquid bowel movements a day since Thursday. On Thursday had just tapered down her dosing to twice a day. Improving. Continue to monitor input and output, daily weights. CD treatment as above. Decrease fluid to 50 cc/h today. Continue Reglan for gastroparesis also add Glucerna to meals. Elevated lactate levels: Due to hypovolemia, hypoperfusion, severe dehydration because of C. difficile colitis diarrhea and poor oral intake. Could most likely be because of metformin as an outpatient as well. Resolved with hydration. GILBERTO: Baseline creatinine normal. Suspect this is likely prerenal, with hypo volemia secondary to poor oral intake, continue Lasix intake. Renal ultrasound results awaited. Urine studies appreciated. Resolved. Medical reconciliation done for nephrotoxic drugs. Hyponatremia:This is suspected bulimic, with poor oral intake, and continuing Lasix along with persistent diarrhea. This appears to be acute on chronic hyponatremia, back on 08/29 sodium was 133. Mild worsening today down to 129. Avoid rapid increase in sodium level. Resolving. Hypokalemia: Continue to monitor. Start patient on 20 mEq of potassium along with normal saline. Also add 40 mg of oral potassium. Acute Encephalopathy:There is mild encephalopathy seen here in the ER. CT of the head was without acute abnormality. Suspect this is secondary to metabolic derangements. She shows only mild confusion, feeling like she has pulled out IV or tubing which is not there, fussing with her blankets, and other minor complaints. She does otherwise appear oriented x3, although not a good historian and needs to provide most of the history. She cooperates with ROS and exam. Resolved. Continue to monitor. Fall precautions. At home she walks with assistance with a walker. PT OT evaluation. Adrenal Insufficiency: Reported chronic adrenal insufficiency. At this time will continue prednisone. Does not appear to be in adrenal crisis. Blood pressure is actually on the high side. Hypo-natremia appears likely secondary to hypovolemia. Type 2 diabetes mellitus: Hold oral medications along with long-acting insulin for now. Continue insulin sliding scale at moderate dose. Depending on requirements in next 24 hours we will see if patient needs Lantus or not. Patient would most likely not need metformin as an outpatient because of severe lactic acidosis and GILBERTO because of fluctuant oral intake and diarrhea as. History of CHF: Last echocardiogram done 1 week ago showed an EF of 55% with grade 1 diastolic dysfunction. Patient is dehydrated right now. Continue with IV fluids. Most likely patient does not need any Lasix as an outpatient. Full code. GI soft, gluten-free diet Heparin Patient is agreeable to SNF placement because of severe deconditioning, recurrent admissions. Attestations Medical Necessity Statement*: Weakness, diarrhea, C. difficile, electrode abnormality, acute encephalopathy Time Spent in Patient Care: Greater than 35 minutes (>than 50% of time spent in counselling and/or direct pt care on unit) . 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 difficile colitis A04.72 Weakness R53.1 Lactic acidosis E87.2 Hyponatremia E87.1 Hypokalemia E87.6 Acute kidney injury N17.9 Acute encephalopathy G93.40 Diabetic gastroparesis E11.43; K31.84 Adrenal insufficiency E27.40 Hypothyroidism E03.9 Bronchitis J40 Insulin dependent type 2 diabetes mellitus E11.9; Z79.4 Hypertension I10 Weight loss R63.4 Metabolic alkalosis with respiratory acidosis E87.4
[2019-09-08] MEDS: sodium chlor 0.9% + KCl 20 mEq 20 MEQ/1,000 ML BAG 75 MEQ IV (16:45)
[2019-09-08] MEDS: HYDROcodone-acetaminophen 5-325 mg Tablet 1 TAB PO (16:46)
[2019-09-08 16:57] LABS: Glucose Point of Care 279 mg/dL (70-110)
[2019-09-08] MEDS: ipratropium-albuterol 3 mL Neb INHALATION (20:55)
[2019-09-08 21:52] LABS: Glucose Point of Care 214 mg/dL (70-110)
[2019-09-08] MEDS: quetiapine 25 mg Tablet PO (21:56)
[2019-09-08] MEDS: trazodone 150 mg Tablet 75 MG PO (21:56)
[2019-09-09] VITALS: BP 126/69; PULSE 74; RESP 19; TEMP 36.5; O2SAT 95
[2019-09-09 04:00] VITALS: BP 150/72; PULSE 97; RESP 22; TEMP 36.7; O2SAT 94
[2019-09-09] MEDS: heparin 5,000 unit/mL INJ 1 mL 5000 UNIT SUBCUT ×3 (04:57→21:36)
[2019-09-09] MEDS: metoclopramide 10 mg Tablet 5 MG PO ×3 (05:59→16:58)
[2019-09-09] MEDS: acetaminophen 325 mg Tablet 650 MG PO (06:03)
--- NOTE | 2019-09-09 06:37 | PC.NURSE ---
Shift Summary Pt did fair tonight, took oral meds well, had adequate intake but had multiple c/o being hungry even after multiple snacks, staff informed pt that we were limited to what we had since the kitchen was not opened, pt yelled out Momma a few times when needing help. pt educated on using call light. pt had good urinary output and slept well.
[2019-09-09 06:41] LABS: Glucose Point of Care 137 mg/dL (70-110)
[2019-09-09 07:13] VITALS: BP 166/88; PULSE 98; RESP 15; TEMP 37.1; O2SAT 96
[2019-09-09 07:30] LABS: Basophils # 0.1 10^3/uL (0.0-0.1); Basophils % 0.5 %; Eosinophils # 0.2 10^3/uL (0.0-0.8); Eosinophils % 1.5 %; Hematocrit 31.5 % (37.0-47.0); Hemoglobin 10.4 g/dL (11.5-15.3); Lymphocytes # 4.5 10^3/uL (0.8-4.8); Lymphocytes % 43.7 %; Mean Corpuscular Hemoglobin 28.6 pg (28.0-34.0); Mean Corpuscular Volume 86.5 fL (81-99); Mean Platelet Volume 9.4 fL (7.4-10.4); Monocytes # 0.8 10^3/uL (0.2-0.9); Monocytes % 7.2 %; Neutrophils # 4.9 10^3/uL (1.8-7.7); Neutrophils % 46.8 %; Nucleated Red Blood Cells % 0 %; Platelet Count 423 10^3/cmm (130-400); Red Blood Count 3.64 10^6/uL (4.1-5.3); Red Cell Distribution Width 14.9 % (12.1-15.1); White Blood Count 10.4 10^3/uL (4.0-10.0)
[2019-09-09 07:49] LABS: Alanine Aminotransferase 27 U/L (0-33); Albumin Level 3.1 g/dL (3.5-5.2); Alkaline Phosphatase 68 IU/L (35-105); Anion Gap 13.6 (5-19); Aspartate Amino Transferase 29 U/L (0-32); Blood Urea Nitrogen 4 mg/dL (8-23); Calcium 8.4 mg/dL (8.5-10.5); Carbon Dioxide 27 mmol/L (22-29); Chloride 97 mmol/L (98-107); Globulin 2.3 g/dL (1.3-4.6); Glomerular Filtration Rate 123.8 mL/min (90-130); Glucose 135 mg/dL (65-115); Magnesium 1.2 mg/dL (1.7-2.3); Osmolality Calculated 276 mOsm/kg (285-295); Potassium 3.6 mmol/L (3.5-5.1); Sodium 134 mmol/L (136-145); Total Bilirubin 0.3 mg/dL (0.15-1.2); Total Protein 5.4 g/dL (6.6-8.7)
[2019-09-09] MEDS: aspirin 81 mg EC Tablet PO (09:16)
[2019-09-09] MEDS: venlafaxine ER (24HR) 75 mg Capsule PO (09:16)
[2019-09-09] MEDS: levothyroxine 150 mcg Tablet 75 MCG PO (09:16)
[2019-09-09] MEDS: metoprolol tartrate 50 mg Tablet 25 MG PO ×2 (09:16→16:58)
[2019-09-09] MEDS: predniSONE 10 mg Tablet PO (09:16)
[2019-09-09] MEDS: sodium chlor 0.9% + KCl 20 mEq 20 MEQ/1,000 ML BAG 75 MEQ IV ×2 (09:20→22:39)
[2019-09-09] MEDS: famotidine 20 mg/2 mL INJ IVP ×2 (11:00→23:01)
[2019-09-09 11:08] VITALS: BP 162/85; PULSE 81; RESP 17; TEMP 36.8; O2SAT 94
[2019-09-09 11:12] LABS: Glucose Point of Care 187 mg/dL (70-110)
--- NOTE | 2019-09-09 11:21 | PC.SOCIAL ---
IMM Update Pg 2 of IMM given and explained to patient. Copy provided to patient and original placed in chart.
--- NOTE | 2019-09-09 13:45 | PM.PN ---
Subjective Subjective: Interval history: No acute events overnight. Patient is doing a lot better. She is awake alert oriented having full conversation with me. Patient has remained afebrile hemodynamically stable. She states her diarrhea is mildly improved since changing her diet. Denies of belly pain, nausea or vomiting. Vitals/I&O/Wt Last Vital Signs Temp 98.2 F 09/09/19 11:08 Pulse 81 09/09/19 11:08 Resp 17 09/09/19 11:08 BP 162/85 09/09/19 11:08 Pulse Ox 94 09/09/19 11:08 09/08/19 09/09/19 09/09/19 22:59 06:59 14:59 Intake Total 300 / 1490 1800 / 3290 120 / 120 Output Total 1000 / 1000 450 / 450 Balance 300 / 1490 800 / 2290 -330 / -330 Weight last 48 hrs Weight 83.943 kg Weight 75.75 kg Physical Exam Narrative: EXAM NARRATIVE: General: No acute distress, AO x3, HEENT: PERRLA, pupils bilaterally equal and reactive Chest: Normal vesicular breath sounds, no added sounds, equal good air entry bilaterally CVS: S1-S2 regular, no murmurs, tachycardia, no gallops, no rubs Abdomen: Soft, nontender, no organomegaly, bowel sounds present but sluggish Neuro: No focal deficits, no facial deformity, AO x3, power 4 /5 in all limbs Urinary Catheter Management^: Magana: Cath Placed During This Visit: yes Reason for Continuing Indwelling Catheter: Other Urinary Catheter Date of Insertion: 09/06/19 Urinary Catheter Time of Insertion: 22:20 Data : 09/09/19 07:20 09/09/19 07:20 Micro: Microbiology 09/06/19 17:54 Blood Culture - Preliminary Blood Coagulase negativ staphylococc 09/08/19 19:17 Blood Culture - Preliminary Blood SPECIMEN COLLECTED 09/08/19 19:21 Blood Culture - Preliminary Blood SPECIMEN COLLECTED A&P Assessment and plan (1) Gram-positive bacteremia: Status: Acute (2) C. difficile colitis: Status: Acute (3) Weakness: Status: Acute (4) Lactic acidosis: Status: Acute (5) Hyponatremia: Status: Acute (6) Hypokalemia: Status: Acute (7) Acute kidney injury: Status: Acute (8) Acute encephalopathy: Status: Acute (9) Diabetic gastroparesis: Continue Reglan. This is likely contributing to her poor appetite and oral intake. She reports she feels like her stomach gets full very easily. Reports that she had been previously assessed by EGD with Dr. Astorga. Status: Acute (10) Adrenal insufficiency: Status: Acute (11) Hypothyroidism: Check TSH. Continue levothyroxine. Status: Acute (12) Bronchitis: Perhaps mild bronchitis. Very mild wheeze on exam. Denies history of eczema or COPD. She is a smoker, however. No obvious signs of pneumonia on chest x-ray. For now we will add breathing treatments. Status: Acute (13) Insulin dependent type 2 diabetes mellitus: Status: Acute (14) Hypertension: Monitor blood pressures. Liberalize diet due to hyponatremia. Status: Acute (15) Weight loss: This appears to be multifactorial with poor oral intake, poor appetite, nausea, gastroparesis. More recently more weight loss with dehydration, continued Lasix intake. Persistent/recurrent diarrhea with C. difficile colitis. Work-up and treatment as above. Please make sure she is up-to-date with her usual screenings. Status: Acute (16) Metabolic alkalosis with respiratory acidosis: Status: Acute Additional A&P Information Gram-positive bacteremia: 1 out of 4 bottles from day 1+ for coag negative staph. Most likely contaminant. Repeat blood cultures have been sent. Mild leukocytosis today. Most likely because of prednisone. Patient has remained afebrile, no left shift, hemodynamically stable. We will hold off on any other antibiotics other than oral vancomycin for now. If she spikes fever we will start her on IV vancomycin as well. Continue to follow blood cultures. Diarrhea: C. diff along with possible gluten allergy: Appears to have worsening of C. difficile colitis, possibly with complication with acute kidney injury, but also other metabolic abnormalities. She had just decreased her vancomycin dosing to twice daily on Thursday. Continue contact isolation. Continue with vancomycin again to 125 mg 6 times a day. Most likely patient would need another 14 days of the same and after that tapering down. Patient has had multiple colonoscopies in the past and has followed up with regulatory specialist but not followed through. Patient would most likely need to follow-up with regulatory specialist as an outpatient. Diarrhea could be a part of gastroparesis. Stool studies awaited. We will give a trial of gluten-free diet. Patient is agreeable to the same. Weakness: Multifactorial. Suspected secondary to dehydration, with metabolic abnormality, metabolic alkalosis, hyponatremia, hypokalemia, acute kidney injury. Recently with poor appetite, nausea, appears to be perhaps secondary to gastroparesis, but overall oral intake has been low while continuing Lasix . Also appears to have perhaps some worsening of C. difficile colitis, with multiple liquid bowel movements a day since Thursday. On Thursday had just tapered down her dosing to twice a day. Resolved. Start on oral magnesium supplementation. Continue to monitor input and output, daily weights. CD treatment as above. Decrease fluid to 50 cc/h today. Continue Reglan for gastroparesis also add Glucerna with meals. Elevated lactate levels: Due to hypovolemia, hypoperfusion, severe dehydration because of C. difficile colitis diarrhea and poor oral intake. Could most likely be because of metformin as an outpatient as well. Resolved with hydration. GILBERTO: Baseline creatinine normal. Suspect this is likely prerenal, with hypovolemia secondary to poor oral intake, continue Lasix intake. Renal ultrasound results awaited. Urine studies appreciated. Resolved. Medical reconciliation done for nephrotoxic drugs. Hyponatremia:This is suspected bulimic, with poor oral intake, and continuing Lasix along with persistent diarrhea. This appears to be acute on chronic hyponatremia, back on 08/29 sodium was 133. Mild worsening today down to 129. Avoid rapid increase in sodium level. Resolving. Hypokalemia: Resolved. Continue to monitor. Acute Encephalopathy:There is mild encephalopathy seen here in the ER. CT of the head was without acute abnormality. Suspect this is secondary to metabolic derangements. She shows only mild confusion, feeling like she has pulled out IV or tubing which is not there, fussing with her blankets, and other minor complaints. She does otherwise appear oriented x3, although not a good historian and needs to provide most of the history. She cooperates with ROS and exam. Resolved. Continue to monitor. Fall precautions. At home she walks with assistance with a walker. PT/OT evaluation. Adrenal Insufficiency: Reported chronic adrenal insufficiency. At this time will continue prednisone. Does not appear to be in adrenal crisis. Blood pressure is actually on the high side. Hypo-natremia appears likely secondary to hypovolemia. Type 2 diabetes mellitus: Hold oral medications along with long-acting insulin for now. Continue insulin sliding scale at moderate dose. Patient has required 14 units of NovoLog in last 24 hours. We will start patient on Lantus 7 units nightly. Hypertension:-Patient is only on metoprolol at home. Her blood pressures have been normal mildly elevated. Hold blood pressure 140/90 mmHg. Continue metoprolol at home dose. Patient would most likely need lisinopril because of type 2 diabetes mellitus. But given multiple admissions because of dehydration and this admission because of GILBERTO will withhold on ALIA inhibitor respiratory. Start patient on amlodipine 10 mg daily with first dose today. History of CHF: Last echocardiogram done 1 week ago showed an EF of 55% with grade 1 diastolic dysfunction. Patient is dehydrated right now. Continue with IV fluids. Most likely patient does not need any Lasix as an outpatient. FLORIAN Magana. Full code. GI soft, gluten-free diet Heparin Patient is agreeable to SNF placement because of severe deconditioning, recurrent admissions. Attestations Medical Necessity Statement*: Multiple electrolyte abnormalities, C. difficile, adrenal insufficiency. Time Spent in Patient Care: Greater than 35 minutes Coding Level of Care Code Acute Territory Sales Manager Medical for [facility] Fwd Diagnoses Gram-positive bacteremia R78.81 C. difficile colitis A04.72 Weakness R53.1 Lactic acidosis E87.2 Hyponatremia E87.1 Hypokalemia E87.6 Acute kidney injury N17.9 Acute encephalopathy G93.40 Diabetic gastroparesis E11.43; K31.84 Adrenal insufficiency E27.40 Hypothyroidism E03.9 Bronchitis J40 Insulin dependent type 2 diabetes mellitus E11.9; Z79.4 Hypertension I10 Weight loss R63.4 Metabolic alkalosis with respiratory acidosis E87.4
[2019-09-09] MEDS: amlodipine 10 mg Tablet PO (14:25)
[2019-09-09 16:00] VITALS: BP 157/76; PULSE 85; RESP 17; TEMP 36.8; O2SAT 94
[2019-09-09] MEDS: magnesium oxide 400 mg tablet PO (16:58)
[2019-09-09 17:18] LABS: Glucose Point of Care 225 mg/dL (70-110)
[2019-09-09 19:05] VITALS: BP 129/61; PULSE 78; RESP 18; TEMP 36.5; O2SAT 99
[2019-09-09 21:13] LABS: Glucose Point of Care 142 mg/dL (70-110)
[2019-09-09] MEDS: trazodone 150 mg Tablet 75 MG PO (21:35)
[2019-09-09] MEDS: quetiapine 25 mg Tablet PO (21:35)
[2019-09-10] VITALS: BP 131/77; PULSE 72; RESP 20; TEMP 36.7; O2SAT 97
[2019-09-10 04:00] VITALS: BP 142/84; PULSE 98; RESP 22; TEMP 37.1; O2SAT 98
[2019-09-10] MEDS: heparin 5,000 unit/mL INJ 1 mL 5000 UNIT SUBCUT ×2 (05:56→14:15)
[2019-09-10] MEDS: metoclopramide 10 mg Tablet 5 MG PO ×2 (06:00→10:18)
[2019-09-10 06:16] LABS: Basophils % 0.4 %; Eosinophils # 0.2 10^3/uL (0.0-0.8); Eosinophils % 1.8 %; Hematocrit 30.9 % (37.0-47.0); Hemoglobin 10.4 g/dL (11.5-15.3); Lymphocytes # 4.1 10^3/uL (0.8-4.8); Lymphocytes % 44.7 %; Mean Corpuscular HGB Conc 33.7 g/dL (30.0-36.0); Mean Corpuscular Hemoglobin 29.5 pg (28.0-34.0); Mean Corpuscular Volume 87.5 fL (81-99); Mean Platelet Volume 9.8 fL (7.4-10.4); Monocytes # 0.6 10^3/uL (0.2-0.9); Monocytes % 6.9 %; Neutrophils # 4.2 10^3/uL (1.8-7.7); Neutrophils % 45.8 %; Nucleated Red Blood Cells % 0 %; Platelet Count 428 10^3/cmm (130-400); Red Blood Count 3.53 10^6/uL (4.1-5.3); Red Cell Distribution Width 15.2 % (12.1-15.1); White Blood Count 9.2 10^3/uL (4.0-10.0)
--- NOTE | 2019-09-10 06:34 | PC.NURSE ---
Shift Summary Pt c/o of being hungry at the beginnning of the shift pt stated she has barely eaten due to the fact she hasn't liked anything they have served, pt took oral medications with no problems and had good urinary output. Pt slept well tonight. pt's picc line dressing was changed at 0500 using sterile technique. pt stated she had sweated a lot through the night but refused for this nurse to change bed sheets.
[2019-09-10 06:42] LABS: Alanine Aminotransferase 43 U/L (0-33); Albumin Level 2.8 g/dL (3.5-5.2); Alkaline Phosphatase 66 IU/L (35-105); Anion Gap 12.9 (5-19); Aspartate Amino Transferase 38 U/L (0-32); Blood Urea Nitrogen 3 mg/dL (8-23); Calcium 8.4 mg/dL (8.5-10.5); Carbon Dioxide 25 mmol/L (22-29); Chloride 102 mmol/L (98-107); Globulin 2.4 g/dL (1.3-4.6); Glomerular Filtration Rate 123.8 mL/min (90-130); Glucose 131 mg/dL (65-115); Osmolality Calculated 279 mOsm/kg (285-295); Potassium 3.9 mmol/L (3.5-5.1); Sodium 136 mmol/L (136-145); Total Bilirubin 0.2 mg/dL (0.15-1.2); Total Protein 5.2 g/dL (6.6-8.7)
[2019-09-10 07:11] LABS: Glucose Point of Care 140 mg/dL (70-110)
[2019-09-10 07:32] VITALS: BP 142/83; PULSE 92; RESP 18; TEMP 36.6; O2SAT 96
[2019-09-10] MEDS: levothyroxine 150 mcg Tablet 75 MCG PO (08:04)
[2019-09-10] MEDS: magnesium oxide 400 mg tablet PO (08:05)
[2019-09-10] MEDS: predniSONE 10 mg Tablet PO (08:05)
[2019-09-10] MEDS: amlodipine 10 mg Tablet PO (08:05)
[2019-09-10] MEDS: venlafaxine ER (24HR) 75 mg Capsule PO (08:05)
[2019-09-10] MEDS: metoprolol tartrate 50 mg Tablet 25 MG PO (08:05)
[2019-09-10] MEDS: aspirin 81 mg EC Tablet PO (08:05)
[2019-09-10 08:18] VITALS: PULSE 78; RESP 16; O2SAT 96
[2019-09-10] MEDS: famotidine 20 mg/2 mL INJ IVP (10:13)
--- NOTE | 2019-09-10 10:19 | P.DS_ITS ---
Discharge Providers Date of Admission: 09/06/19 19:37 Date of Discharge: September 10, 2019 Attending Provider at Admission: Justin Martinez Attending Provider at Discharge: Gee Hyatt MD Primary Care Provider: KATRINA Cash Diagnoses at Discharge Discharge Diagnosis (1) Gram-positive bacteremia: Status: Acute (2) C. difficile colitis: Status: Acute (3) Weakness: Status: Acute (4) Lactic acidosis: Status: Acute (5) Hyponatremia: Status: Acute (6) Hypokalemia: Status: Acute (7) Acute kidney injury: Status: Acute (8) Acute encephalopathy: Status: Acute (9) Diabetic gastroparesis: Status: Acute (10) Adrenal insufficiency: Status: Acute (11) Hypothyroidism: Status: Acute (12) Bronchitis: Status: Acute (13) Insulin dependent type 2 diabetes mellitus: Status: Acute (14) Hypertension: Status: Acute (15) Weight loss: Status: Acute (16) Metabolic alkalosis with respiratory acidosis: Status: Acute Reason for Visit Reason for Visit: weight loss, weakness, dizzy Hospital Course Discharge Summary: This is a 64-year-old female with a past medical history of type 2 diabetes mellitus, hypertension, adrenal insufficiency, alcohol abuse, hypothyroidism, who was recently discharged from [facility] with persistent C. difficile diarrhea on a vancomycin taper who presented to again [facility] due to complaints of generalized weakness. She was brought back to the hospital on September 06, 2019 by her for evaluation due to persistent weakness, lack of appetite, cough, weight loss and persistent diarrhea. On presentation her stools were solidifying for last several days but then became liquid again. This time on presentation she was hyponatremic with sodium down to 129, hypokalemic down to 2.6, creatinine of 2.1 with her baseline being normal creatinine. She was also found to be extremely alkalotic which was thought to be because of chronic respiratory alkalosis with metabolic alkalosis with an elevated lactate of 5.6. She was complaining of abdominal pain for which CT abdomen was done which was negative for any acute abnormality and showed diverticulosis without diverticulitis. Because of extreme weakness and multiple electrolyte abnormalities along with respiratory and metabolic alkalosis and new GILBERTO she was admitted to the ICU for further evaluation and treatment. For diarrhea: Stool studies were checked again and C. difficile was negative this time. It is most likely continuance of C. difficile colitis along with a possible gluten allergy and gastroparesis. Patient has had multiple colonoscopies in the past and has followed up with pipeline technician but not followed through. Patient would most likely need to follow-up with pipeline technician as an outpatient. Patient is advised to continue with her taper of vancomycin as prescribed earlier. She is also advised to follow-up with a pipeline technician in the next 2 weeks for further work-up. Patient is agreeable to trying gluten-free diet. She was on gluten-free diet while in hospital and her diarrhea had somewhat subsided. For weakness was thought to be multifactorial multifactorial. Suspected secondary to dehydration, with metabolic abnormality, metabolic alkalosis, hyponatremia, hypokalemia, acute kidney injury. Recently with poor appetite, nausea, appears to be perhaps secondary to gastroparesis, but overall oral intake has been low while continuing Lasix. She was treated with holding of Lasix and IV fluids and repletion of electrolytes. She responded well to the treatment. For GILBERTO: Most likely because of severe dehydration with poor oral intake and continuous diarrhea. She was treated with IV fluids and it had resolved. For adrenal insufficiency: Patient was continued on her current dose of prednisone. Her blood pressures remained stable and she was not found to be in adrenal crisis. For type 2 diabetes mellitus: Her blood sugars were found to be on the lower side. Her oral hypoglycemics and antidiabetic medications were readjusted. She supposed to take 2 mg of glimepiride along with 7 units of glargine and the dose of NovoLog have been continued as previous. She is also advised to check her blood sugars fasting every day along with pre-lunch and pre-dinner every alternate with a day to maintain a blood sugar diary to take her with her primary care provider. For Hypertension:-Blood pressures are found to be in a higher side and this admission. She not a good candidate for ALIA inhibitor even though she is a diabetic because of recurrent admissions because of dehydration and admission with headache at this time. Amlodipine was started and she tolerated the medication well. History of CHF: Last echocardiogram done 1 week ago showed an EF of 55% with grade 1 diastolic dysfunction. Because of recurrent admissions with dehydration and diarrhea patient dose of Lasix was decreased to 20 mg every other day. She was also advised to take an extra tablet of Lasix if she felt out of breath or found her to have a lower gonzalez b swelling. Because of recurrence admission because of dehydration, diarrhea and multiple electrolyte abnormality patient was advised to be discharged to SNF so that she can be in monitored setting for at least the next 2 weeks and her blood work can be monitored. She is been discharged hemodynamically stable condition with advised to follow- up with her primary care provider within next 7 to 10 days with multiple medications which have been adjusted specifically dose of glimepiride and Lantus have been decreased, amlodipine has been added for hypertension, dose of Lasix have been made 20 mg every other day and at least 1 tablet as needed for swelling and difficulty in breathing. She is also advised to follow-up with pipeline technician in [place] for persistent diarrhea. She is advised to try gluten-free diet till then. She is advised to taper vancomycin as described earlier. Physical Exam Narrative: EXAM NARRATIVE: General: No acute distress, AO x3, HEENT: PERRLA, pupils bilaterally equal and reactive Chest: Normal vesicular breath sounds, no added sounds, equal good air entry bilaterally CVS: S1-S2 regular, no murmurs, tachycardia, no gallops, no rubs Abdomen: Soft, nontender, no organomegaly, bowel sounds present but sluggish Neuro: No focal deficits, no facial deformity, AO x3, power 4 /5 in all limbs Urinary Catheter Management^: Magana: Cath Placed During This Visit: yes, but has since been removed by the nurse Reason for Continuing Indwelling Catheter: Decision to DC Catheter Urinary Catheter Date of Insertion: 09/06/19 Urinary Catheter Time of Insertion: 22:20 Date Urinary Catheter Removed: 09/09/19 Time Urinary Catheter Discontinued: 12:00 Discharge Data Data Completed and Pending: Completed Studies During Hospitalization Category Date Time Status CT abdomen pelvis wo con [id number] Rout ine Cat Scan 09/06/19 21:[address] head wo con* 7 0450 Urgent Cat Scan 09/06/19 18:05 Completed CXRP [XR chest 1V portable [id number]] R outine Exams 09/07/19 14:30 Completed XR abdomen min 2V [id number] Routine Exams 09/07/19 11:27 Completed XR chest 1V eduardo ble [id number] Urgent Exams 09/06/19 17:24 Completed US renal BI* [id number] Routine Ultrasound 09/07/19 21:28 Completed Pending at discharge Category Date Time Status Blood Culture Sta t Lab 09/06/19 17:54 Results Blood Culture Sta t Lab 09/08/19 19:17 Results Clostridioides Di fficile PCR Routin e Lab 09/08/19 17:45 Results Comprehensive Met abolic Panel Stat Lab 09/07/19 12:00 Received Enteric Bacterial Panel by PCR Rout ine Lab 09/08/19 17:45 Results Enteric Parasite Panel by PCR Routi ne Lab 09/08/19 17:45 Results Immunochemical Fe dickson OCB Routine Lab 09/08/19 17:45 Results Lactoferrin Routi ne Lab 09/08/19 17:45 Results Labs from last 24 hours 09/10/19 09/10/19 09/10/19 07:05 05:54 05:54 WBC 9.2 RBC 3.53 L Hgb 10.4 L Hct 30.9 L MCV 87.5 MCH 29.5 MCHC 33.7 RDW 15.2 H Plt Count 428 H MPV 9.8 Neut % (Auto) 45.8 Lymph % (Auto) 44.7 [place] % (Auto) 6.9 Eos % (Auto) 1.8 Baso % (Auto) 0.4 Neut # (Auto) 4.2 Lymph # (Auto) 4.1 [place] # (Auto) 0.6 Eos # (Auto) 0.2 Baso # (Auto) 0.0 Nucleated RBC % (a uto) 0 Nucleated RBCs # 0.0 Sodium 136 Potassium 3.9 Chloride 102 Carbon Dioxide 25 Anion Gap 12.9 BUN 3 L Creatinine 0.5 GFR Calculation 123.8 Glucose 131 H POC Glucose 140 Calculated Osmolal ity 279 L Calcium 8.4 L Total Bilirubin 0.2 AST 38 H ALT 43 H Alkaline Phosphata se 66 Total Protein 5.2 L Albumin 2.8 L Globulin 2.4 09/09/19 09/09/19 09/09/19 21:06 17:02 11:02 WBC RBC Hgb Hct MCV MCH MCHC RDW Plt Count MPV Neut % (Auto) Lymph % (Auto) [place] % (Auto) Eos % (Auto) Baso % (Auto) Neut # (Auto) Lymph # (Auto) [place] # (Auto) Eos # (Auto) Baso # (Auto) Nucleated RBC % (a uto) Nucleated RBCs # Sodium Potassium Chloride Carbon Dioxide Anion Gap BUN Creatinine GFR Calculation Glucose POC Glucose 142 225 187 Calculated Osmolal ity Calcium Total Bilirubin AST ALT Alkaline Phosphata se Total Protein Albumin Globulin Vitals: Last Vital Signs Temp 97.9 F 09/10/19 07:32 Pulse 78 09/10/19 08:18 Resp 16 09/10/19 08:18 BP 142/83 09/10/19 07:32 Pulse Ox 96 09/10/19 08:18 Discharge Plan Discharge Patient Disposition: Xfer SNF Condition: Stable Prescriptions: New amlodipine 10 mg Tablet 10 mg PO DAILY Qty: 30 RF: 0 NormaLyte ORS 1.3-1.45-0.75 gram/10.5 gram powder in packet See Rx Instructions .ROUTE .COMPLEX Qty: 288 RF: 0 magnesium oxide 400 mg (241.3 mg magnesium) Tablet 400 mg PO BID Qty: 60 RF: 0 Continued metoclopramide HCl [Reglan] 5 mg tablet 5 mg PO .qac Qty: 90 RF: 0 venlafaxine [Effexor XR] 150 mg capsule,extended release 24hr 150 mg PO DAILY Qty: 30 RF: 1 atorvastatin 80 mg Tablet 80 mg PO QPM RF: 0 aspirin [Aspir-81] 81 mg Tablet,Delayed Release (Dr/Ec) 81 mg PO DAILY RF: 0 levothyroxine 75 mcg Tablet 75 mcg PO DAILY RF: 0 pantoprazole 40 mg Tablet,Delayed Release (Dr/Ec) 40 mg PO DAILY RF: 0 lidocaine 5 % Adhesive Patch,Medicated 1 patch TOPICAL PRN PRN (Reason: Pain) RF: 0 metoprolol tartrate 50 mg Tablet 25 mg PO BID RF: 0 insulin aspart U-100 [Novolog Flexpen U-100 Insulin] 100 unit/mL (3 mL) Insulin Pen See Rx Instructions .ROUTE .COMPLEX Qty: 0 RF: 0 quetiapine [Seroquel] 50 mg tablet 50 mg PO BEDTIME RF: 0 acetaminophen [Tylenol Extra Strength] 500 mg Tablet 1,000 mg PO PRN RF: 0 trazodone 150 mg Tablet 150 mg PO BEDTIME RF: 0 hydroxyzine pamoate [Vistaril] 50 mg capsule 50 mg PO TID PRN (Reason: unknown) RF: 0 prednisone 10 mg tablet 10 mg PO DAILY 30 Days Qty: 30 RF: 0 vancomycin 125 mg capsule See Rx Instructions .ROUTE .COMPLEX Qty: 48 RF: 0 Changed furosemide 40 mg Tablet 20 mg PO EVERY OTHER DAY Qty: 15 RF: 0 glimepiride 4 mg Tablet 2 mg PO DAILY Qty: 15 RF: 0 Lantus U-100 Insulin 100 unit/mL Solution 7 unit SUBCUT DAILY 30 Days RF: 0 Discontinued metformin 1,000 mg Tablet 1,000 mg PO BID RF: 0 Discharge Orders: Discharge Order (Routine); Ordered 09/10/19 Ordered By: Gee Hyatt Referrals: Thu Flores FNP [Primary Care Provider] - 09/14/19 10:30 am (You will have a phone visit with Thu. She will call you on September 13 at 10:30) Discharge Diet: As Directed Discharge Activity: Resume usual activity Activity Restrictions/Additional Instructions: Gluten-free diet. Please finish the vancomycin taper as directed with food. Your dose of glimepiride and Lantus has been changed. Please check your blood sugars fasting every day and lunch and dinner alternatively. Please maintain a blood sugar diary and take with your primary care provider. Please make sure that you maintain your hydration. You need to drink at least 2 L of fluid every day. When you are having diarrhea you need to take ORS to m aintain hydration Please follow-up with a pipeline technician in [place] within next 1 month. Discharge Attestations Time Spent in Discharge Care*: greater than 30 min Specific Discharge Activities: Specific discharge activities: educating patient, educating and/or supporting family/caregiver, discussing with shelter case manager/social workers/dc planners, documenting/other paperwork and evaluating patient/reviewing data Status at Discharge: Cognitive status at discharge: cognitively intact , Behavioral status at discharge: cooperative , Functional status at discharge: other assisted ambulation Overall status at discharge: patient is back to baseline Quality Metrics Clinical Quality Measures During this hospital stay, did patient experience: None Coding Level of Care Code Acute Police Surgeon for [facility] Fwd Diagnoses Gram-positive bacteremia R78.81 C. difficile colitis A04.72 Weakness R53.1 Lactic acidosis E87.2 Hyponatremia E87.1 Hypokalemia E87.6 Acute kidney injury N17.9 Acute encephalopathy G93.40 Diabetic gastroparesis E11.43; K31.84 Adrenal insufficiency E27.40 Hypothyroidism E03.9 Bronchitis J40 Insulin dependent type 2 diabetes mellitus E11.9; Z79.4 Hypertension I10 Weight loss R63.4 Metabolic alkalosis with respiratory acidosis E87.4
[2019-09-10 11:15] LABS: Glucose Point of Care 220 mg/dL (70-110)
[2019-09-10 11:49] VITALS: PULSE 78; RESP 16; O2SAT 96
[2019-09-10 12:00] VITALS: BP 143/68; PULSE 82; RESP 18; TEMP 36.9; O2SAT 95
== END 2019-09-10 14:30 | disposition skilled nursing facility (03) | DRG 371 ==
LOC: ER 19:35 → ICU 19:52 → MEDSURG 09-07 22:23
PROVIDERS: Student in an Organized Health Care Education/Training Program; Admitting Provider Internal Medicine; Emergency Provider Emergency Medicine; PCP Nurse Practitioner; Visit Provider Student in an Organized Health Care Education/Training Program
DX: A04.72 Enterocolitis due to Clostridium difficile, not specified as recurrent (principal); G93.41 Metabolic encephalopathy; I13.0 Hypertensive heart and chronic kidney disease with heart failure and stage 1 through stage 4 chronic kidney disease, or unspecified chronic kidney disease; I50.32 Chronic diastolic (congestive) heart failure; F33.9 Major depressive disorder, recurrent, unspecified; E87.4 Mixed disorder of acid-base balance; E87.1 Hypo-osmolality and hyponatremia; N17.9 Acute kidney failure, unspecified; E27.40 Unspecified adrenocortical insufficiency; G89.29 Other chronic pain; M54.9 Dorsalgia, unspecified; E11.22 Type 2 diabetes mellitus with diabetic chronic kidney disease; N18.2 Chronic kidney disease, stage 2 (mild); K21.9 Gastro-esophageal reflux disease without esophagitis; E78.5 Hyperlipidemia, unspecified; E03.9 Hypothyroidism, unspecified; Z79.4 Long term (current) use of insulin; E66.01 Morbid (severe) obesity due to excess calories; Z68.33 Body mass index [BMI] 33.0-33.9, adult; F43.12 Post-traumatic stress disorder, chronic; F17.210 Nicotine dependence, cigarettes, uncomplicated; F10.21 Alcohol dependence, in remission; E86.0 Dehydration; E11.43 Type 2 diabetes mellitus with diabetic autonomic (poly)neuropathy; K31.84 Gastroparesis; Z79.82 Long term (current) use of aspirin; J20.9 Acute bronchitis, unspecified; E87.6 Hypokalemia
CPT/HCPCS: 12345; 36415; 36416; 36569; 36592; 36600; 51702; 70450; 71045; 74019; 74176; 76770; 76857; 80048; 80053; 80307; 81003; 82274; 82330; 82550; 82570; 82803; 82962; 83605; 83630; 83690; 83735; 84100; 84443; 84540; 85007; 85025; 85027; 87040; 87205; 87493; 87506; 93005; 94640; 96372; 96375; 97161; 97530; 99283; A9270; C1751; J0610; J1644; J1815; J2060; J3370; J3475; J3480; J3490; J7030; J7512; J8597

== ENCOUNTER → 2019-10-19 07:38 | Outpatient (BNVA) | payer OTHER, SELFPAY | PROVIDERS: PCP Nurse Practitioner; Visit Provider Nurse Practitioner | DX: F43.12 Post-traumatic stress disorder, chronic (principal); F33.2 Major depressive disorder, recurrent severe without psychotic features | CPT/HCPCS: 99213 ==

== ENCOUNTER 2019-12-02 15:30 | Inpatient (IN) | payer OTHER, SELFPAY ==
[2019-12-02] VITALS (14 sets, daily range): BP systolic 82–164; BP diastolic 52–106; PULSE 88–114; RESP 0–39; TEMP 36.4–36.5; O2SAT 58–100
--- NOTE | 2019-12-02 16:18 | XRR_ITS ---
PROCEDURE INFORMATION: Exam: XR Chest, 1 View Exam date and time: 12/02/2019 4:20 PM Age: 64 years old Clinical indication: Dyspnea; Additional info: Dyspnea, R/O covid TECHNIQUE: Imaging protocol: XR of the chest Views: 1 view. COMPARISON: CR XR chest 1V portable [id number] 09/07/2019 4:10 PM FINDINGS: Tubes, catheters and devices: There is an ET tube with tip just below the clavicular heads but above the michelle an orogastric tube with tip off the film. A pacemaker device is present, and its leads are in appropriate position. Lungs: There is diffuse airspace density, which may represent pneumonia, pulmonary edema, or inflammatory pneumonitis such as ARDS. Pleural space: Unremarkable. No pleural effusion. No pneumothorax. Heart/Mediastinum: The heart is enlarged. Bones/joints: No acute abnormality. XR/XR chest 1V portable [id number] IMPRESSION: 1. There is an ET tube with tip just below the clavicular heads but above the michelle an orogastric tube with tip off the film. 2. There is diffuse airspace density, which may represent pneumonia, pulmonary edema, or inflammatory pneumonitis such as ARDS. These densities are especially confluent on the left. This appearance is nonspecific and can be identified with later stages of COVID-19.
--- NOTE | 2019-12-02 16:20 | ECG_ITS ---
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 Measurements Intervals [place] Rate: 102 P: 56 OK: 146 QRS: 104 QRSD: 93 T: 11 QT: 365 QTc: 476 Interpretive Statements SINUS TACHYCARDIA WITH FREQUENT VENTRICULAR PREMATURE COMPLEXES INCOMPLETE RIGHT BUNDLE BRANCH BLOCK [90+ ms QRS DURATION, TERMINAL R IN V1/V2, 40+ ms S IN I/aVL/V4/V5/V6] POSSIBLE RIGHT VENTRICULAR HYPERTROPHY [SOME/ALL OF: PROMINENT R IN V1, LATE TRANSITION, RAD, CECIL, SSS] SEPTAL MYOCARDIAL INFARCTION , OF INDETERMINATE AGE [40+ ms Q WAVE IN V1/V2] Compared to ECG 09/06/2019 17:25:02 Ventricular premature complex(es) now present Incomplete right bundle-branch block now present Atrial abnormality now present Myocardial infarct finding now present T-wave abnormality no longer present Electronically Signed On 12-03-2019 16:20:04 CDT by Tian Powers M.D. [id number] f
--- NOTE | 2019-12-02 16:22 | ED_ITS ---
HPI - SOB/Dyspnea General: Chief Complaint: Shortness of Breath/Dyspnea Stated Complaint: high bs Time Seen by Provider: 12/02/19 16:18 History of Present Illness: HPI Narrative: This patient is a 64-year-old female brought in today by her . He reports that for 4 to 5 days she has been laying in bed because she has been ill. She has had vomiting and diarrhea. She has been weak and has had multiple falls over the past several days. She has diabetes and her blood sugars been running high. She started feeling very short of breath today and became altered. He brought her in by private vehicle. At triage her pulse ox was in the 50s. She was immediately brought back to a room and started on a nonrebreather mask. She is not able to provide much history on her own although she does respond with yes and no to simple questions. Her denies any exposures to COVID. She has had a history of C. difficile in the past. MD elicited complaint: shortness of breath and cough Pertinent past history: diabetes Onset (ago): day(s) (5) Timing: constant Severity: severe Exacerbating factors: exertion Relieving factors: nothing Associated symptoms: Reports cough, dizziness, fever(s), lightheadedness, myalgias, nausea and vomiting Review of Systems General: Reports: ROS unobtainable due to medical condition and ROS unobtainable due to mental status Const: Reports: fever(s) Card: Reports: lightheadedness GI: Reports: nausea and vomiting Neuro: Reports: dizziness PFSH ED PFSH: Medical History C. 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, recurrent severe without psychotic features Morbid obesity Post-traumatic stress disorder, chronic Surgical History H/O esophagogastroduodenoscopy H/O: hysterectomy History of bunionectomy bilateral Hx of cholecystectomy Status post colonoscopy Family History Other CAD (coronary artery disease) Cancer Diabetes Hypertension Denies family history of Anesthesia complication Bleeding disorder Social History Smoking and tobacco status: current every day smoker cigars Cigar details: 1 PPD Smoking risk assessment/counseling performed?: No Alcohol intake: former Former alcohol use details: Reportedly has not had any alcohol since June Substance/Drug Use: never Household members: spouse Housing: Manufactured/Mobile home Marital status: Current occupational status: retired History of recent travel: No Physical Exam Const: GENERAL APPEARANCE: in distress and lethargic NUTRITIONAL APPEARANCE: obese ORIENTATION/CONSCIOUSNESS: Yes lethargic OTHER: Poor skin color HENMT: HEAD & SCALP: normal to inspection FACE & SINUS: normal facial exam Eye: GENERAL EYE: appearance normal, both eyes and all related structures CONJUNCTIVA: Yes conjunctival abnormal (Small amount of purulent discharge) positive left Neck/C-Spine: COMMON NORMALS: supple, no meningeal signs and no JVD Chest: COMMONS NORMALS: normal inspection of the chest Resp: EFFORT & INSPECTION: Yes tachypneic, Yes respiratory distress and Yes labored AUSCULTATION: rhonchi (Throughout, left greater than right) Cardio: COMMON NORMALS: no JVD, regular rhythm and No murmurs present (Cardio) RATE: tachycardic RHYTHM: regular rhythm GI: COMMON NORMALS: Normal to inspection, nondistended, normoactive bowel sounds present, Soft to palpation and non-tender INSPECTION: Yes normal to inspection AUSCULTATION: Yes normoactive bowel sounds PALPATION: Yes Soft to palpation Back/Pelvis: COMMON NORMALS: thoracic and lumbar spine normal to inspection Extremity: COMMON NORMALS: normal to inspection Neuro: NERI COMA SCALE: document GCS findings [place] coma scale eye op ening: To sound Neri coma scale verbal response: Confused [place] coma scale motor response: Obey commands Neri coma scale total score: 13 COMMON NORMALS: moves all extremities, no focal motor deficits and no sensory deficits noted SENSORIUM/ORIENTATION: Yes lethargic MENINGEAL SIGNS: Yes no meningeal signs Psych: COMMON NORMALS: mental status grossly normal, cooperative and normal affect Skin: COMMON NORMALS: no rashes or lesions noted and turgor normal GENERAL SKIN EXAM: no rashes or lesions noted and turgor normal Procedures Central Line Placement Left IJ: Time Out Performed: Yes Patient Placed on Monitor/Pulse Ox: Yes MD Prep: mask, gown and gloves Central Line Prep: Chlorhexidine scrub Local Anesthetic: lidocaine 1% Amount of anesthesia used (mL): 4 Ultrasound Used for Placement: Yes Central Line Lumen Inserted: triple Post Procedure: sutured in place, good blood return, all ports aspirated, flushed, capped and sterile dressing applied Post Procedure X-Ray: tip of catheter in good position and no pneumothorax seen Patient Tolerated Procedure: well Complications: none Intubation Time out performed: Yes sedative: Etomidate paralytic: Vecuronium Laryngoscope: fiber optic video scope ET Tube Size: 8 ET Tube Uncuffed: No Tube Secured Depth (cm): 23 Tube Secured Location: lips Tube Placement Confirmation: visualized tube passing through cords, equal breath sounds bilaterally, no breath sounds over epigastrium and confirmation by capnometry Patient Tolerated Procedure: well Intubation Complications: none Course ED course: Patient came in with very low oxygen saturation. She was altered on presentation. She continued to be more confused in spite of her oxygen improving on a nonrebreather. Because of her increasing confusion and inability to protect her airway she was intubated. We were able to ventilate her easily after intubation. Chest x-ray showed patchy infiltrates bilaterally but much more on the left. White count was markedly elevated at 23,000. Mild anemia with a hemoglobin of 11.3. A rapid COVID test was negative. A send out has been ordered. ABG shows a pH of 7.56. Her sodium was dramatically low at 107. Chloride was also low. Potassium was 2.9 on the ABG and 3.0 on the initial CMP. I suspected that the sodium was correct as the potassium was so similar on the ABG in the blood work however we did send a repeat BMP to make sure that that was an accurate blood sample. The repeat sodium was 110. She had not been given any fluids in the ED. I discussed the case with Dr. Martinez and as it was close to shift change he will pass her off to Dr. Pringle. I also spoke to the on-call mixing technician who recommended 3% saline, 100 mL over an hour. I did also cover the patient for sepsis and pneumonia as her procalcitonin was quite elevated suggesting bacterial infection. She was given Rocephin and Zithromax. She was sedated on propofol. After intubation her blood pressure dropped and I ordered a 500 mL bolus of normal saline. That was before her sodium level came back. She also is noted to be in CHF based on markedly elevated BNP. EKG showed nonspecific ST changes. Troponins were flat. Review of prior labs show that she has had hypo-natremia in the past and she does take a supplement apparently. I did not see any sodiums that were as low as this. CT of the head is ordered to look for any possible cerebral edema and this will be done on the way to the ICU. After she is Garry gone to the ICU Dr. Pringle requested that I place a central line and this was done in the ICU. Vital Signs: Vital signs: Vital Signs Temperature 97.7 F 12/02/19 21:00 Pulse Rate 91 12/02/19 23:00 Respiratory Rate 0 L 12/02/19 23:00 Blood Pressure 89/60 12/02/19 23:00 Pulse Oximetry 100 12/02/19 23:00 MDM - SOB/Dyspnea Lab Data: Labs: Lab Results 12/02/19 12/02/19 12/02/19 Range/Units 16:50 16:50 16:50 WBC 23.7 H (4.0-10.0) 10^3/ uL RBC 4.04 L (4.1-5.3) 10^6/u L Hgb 11.3 L (11.5-15.3) g/dL Hct 31.6 L (37.0-47.0) % MCV 78.2 L (81-99) fL MCH 28.0 (28.0-34.0) pg MCHC 35.8 (30.0-36.0) g/dL RDW 12.7 (12.1-15.1) % Plt Count 564 H (130-400) 10^3/c mm MPV 9.0 (7.4-10.4) fL Neut % (Auto) 89.1 % Lymph % (Auto) 5.2 % [place] % (Auto) 4.8 % Eos % (Auto) 0.2 % Baso % (Auto) 0.1 % Neut # (Auto) 21.08 H (1.8-7.7) 10^3/u L Lymph # (Auto) 1.2 (0.8-4.8) 10^3/u L [place] # (Auto) 1.1 H (0.2-0.9) 10^3/u L Eos # (Auto) 0.0 (0.0-0.8) 10^3/u L Baso # (Auto) 0.0 (0.0-0.1) 10^3/u L Nucleated RBC % (a uto) 0 % Nucleated RBCs # 0.0 /100WBC PT 13.20 (12.1-14.9) SECO NDS INR 0.97 (0.8-1.2) Fibrinogen 609 H (174-498) mg/dL D-Dimer 1.63 H (0-0.59) ug/mIFE U Specimen Type Sample Site ABG pH (7.35-7.45) ABG pCO2 (35-45) mmHg ABG pO2 (80.0-100.0) mmH g ABG HCO3 (22-26) mmol/L ABG Base Excess (-2.0-2.0) mmol/ L Jose L Test Hematocrit (37-47) % O2 Delivery Device Mechanical Rate FiO2 % Tidal Volume PEEP cmH20 Paraffiner ID Sodium 107 L* (136-145) mmol/L Potassium 3.0 L (3.5-5.1) mmol/L Chloride 66 L (98-107) mmol/L Carbon Dioxide 30 H (22-29) mmol/L Anion Gap 14.0 (5-19) BUN 5 L (8-23) mg/dL Creatinine 0.4 L (0.5-0.9) mg/dL GFR Calculation 160.2 H (90-130) mL/min Glucose 225 H (65-115) mg/dL Calculated Osmolal ity 227 L (285-295) mOsm/k g Lactic Acid (0.5-2.2) mmol/L Calcium 6.9 L (8.5-10.5) mg/dL Ferritin 142 (15-150) ng/mL Total Bilirubin 0.3 (0.15-1.2) mg/dL AST 31 (0-32) U/L ALT 16 (0-33) U/L Alkaline Phosphata se 93 (35-105) IU/L Troponin T Baselin e (0-10) ng/L C-Reactive Protein 115.1 H (0.0-4.9) mg/L NT-Pro-B Natriuret Pep 47026 H (0-125) pg/mL Total Protein 5.8 L (6.6-8.7) g/dL Albumin 2.6 L (3.5-5.2) g/dL Globulin 3.2 (1.3-4.6) g/dL Procalcitonin 4.47 H (0-0.5) ng/mL Influenza Type A A g (Negative) Influenza Type B A g (Negative) SARS-CoV-2 Ag (Rap id) (Negative) 12/02/19 12/02/19 12/02/19 Range/Units 16:50 16:50 16:50 WBC (4.0-10.0) 10^3/ uL RBC (4.1-5.3) 10^6/u L Hgb (11.5-15.3) g/dL Hct (37.0-47.0) % MCV (81-99) fL MCH (28.0-34.0) pg MCHC (30.0-36.0) g/dL RDW (12.1-15.1) % Plt Count (130-400) 10^3/c mm MPV (7.4-10.4) fL Neut % (Auto) % Lymph % (Auto) % [place] % (Auto) % Eos % (Auto) % Baso % (Auto) % Neut # (Auto) (1.8-7.7) 10^3/u L Lymph # (Auto) (0.8-4.8) 10^3/u L [place] # (Auto) (0.2-0.9) 10^3/u L Eos # (Auto) (0.0-0.8) 10^3/u L Baso # (Auto) (0.0-0.1) 10^3/u L Nucleated RBC % (a uto) % Nucleated RBCs # /100WBC PT (12.1-14.9) SECO NDS INR (0.8-1.2) Fibrinogen (174-498) mg/dL D-Dimer (0-0.59) ug/mIFE U Specimen Type Sample Site ABG pH (7.35-7.45) ABG pCO2 (35-45) mmHg ABG pO2 (80.0-100.0) mmH g ABG HCO3 (22-26) mmol/L ABG Base Excess (-2.0-2.0) mmol/ L Jose L Test Hematocrit (37-47) % O2 Delivery Device Mechanical Rate FiO2 % Tidal Volume PEEP cmH20 Paraffiner ID Sodium (136-145) mmol/L Potassium (3.5-5.1) mmol/L Chloride (98-107) mmol/L Carbon Dioxide (22-29) mmol/L Anion Gap (5-19) BUN (8-23) mg/dL Creatinine (0.5-0.9) mg/dL GFR Calculation (90-130) mL/min Glucose (65-115) mg/dL Calculated Osmolal ity (285-295) mOsm/k g Lactic Acid 2.3 H (0.5-2.2) mmol/L Calcium (8.5-10.5) mg/dL Ferritin (15-150) ng/mL Total Bilirubin (0.15-1.2) mg/dL AST (0-32) U/L ALT (0-33) U/L Alkaline Phosphata se (35-105) IU/L Troponin T Baselin e 24 H (0-10) ng/L C-Reactive Protein (0.0-4.9) mg/L NT-Pro-B Natriuret Pep (0-125) pg/mL Total Protein (6.6-8.7) g/dL Albumin (3.5-5.2) g/dL Globulin (1.3-4.6) g/dL Procalcitonin (0-0.5) ng/mL Influenza Type A A g (Negative) Influenza Type B A g (Negative) SARS-CoV-2 Ag (Rap id) Negative (Negative) 12/02/19 12/02/19 Range/Units 16:50 17:43 WBC (4.0-10.0) 10^3/ uL RBC (4.1-5.3) 10^6/u L Hgb (11.5-15.3) g/dL Hct (37.0-47.0) % MCV (81-99) fL MCH (28.0-34.0) pg MCHC (30.0-36.0) g/dL RDW (12.1-15.1) % Plt Count (130-400) 10^3/c mm MPV (7.4-10.4) fL Neut % (Auto) % Lymph % (Auto) % [place] % (Auto) % Eos % (Auto) % Baso % (Auto) % Neut # (Auto) (1.8-7.7) 10^3/u L Lymph # (Auto) (0.8-4.8) 10^3/u L [place] # (Auto) (0.2-0.9) 10^3/u L Eos # (Auto) (0.0-0.8) 10^3/u L Baso # (Auto) (0.0-0.1) 10^3/u L Nucleated RBC % (a uto) % Nucleated RBCs # /100WBC PT (12.1-14.9) SECO NDS INR (0.8-1.2) Fibrinogen (174-498) mg/dL D-Dimer (0-0.59) ug/mIFE U Specimen Type Arterial Sample Site Radial, right ABG pH 7.54 H (7.35-7.45) ABG pCO2 40.3 (35-45) mmHg ABG pO2 450.0 H (80.0-100.0) mmH g ABG HCO3 34.1 H (22-26) mmol/L ABG Base Excess 10.5 H (-2.0-2.0) mmol/ L Jose L Test Pos Hematocrit 34.0 L (37-47) % O2 Delivery Device Vent Mechanical Rate 15.0 FiO2 100.0 % Tidal Volume 0.45 PEEP 10.0 cmH20 Paraffiner ID Ed Sodium (136-145) mmol/L Potassium (3.5-5.1) mmol/L Chloride (98-107) mmol/L Carbon Dioxide (22-29) mmol/L Anion Gap (5-19) BUN (8-23) mg/dL Creatinine (0.5-0.9) mg/dL GFR Calculation (90-130) mL/min Glucose (65-115) mg/dL Calculated Osmolal ity (285-295) mOsm/k g Lactic Acid (0.5-2.2) mmol/L Calcium (8.5-10.5) mg/dL Ferritin (15-150) ng/mL Total Bilirubin (0.15-1.2) mg/dL AST (0-32) U/L ALT (0-33) U/L Alkaline Phosphata se (35-105) IU/L Troponin T Baselin e (0-10) ng/L C-Reactive Protein (0.0-4.9) mg/L NT-Pro-B Natriuret Pep (0-125) pg/mL Total Protein (6.6-8.7) g/dL Albumin (3.5-5.2) g/dL Globulin (1.3-4.6) g/dL Procalcitonin (0-0.5) ng/mL Influenza Type A A g Negative (Negative) Influenza Type B A g Negative (Negative) SARS-CoV-2 Ag (Rap id) (Negative) Critical Care Time Critical Care Time: Critical Care Time: Yes Total Critical Care Time: 45 Attestation: I provided critical care to this patient in the amount of 45 minutes. This was exclusive of other procedures. The patient presented with respiratory failure and altered mental status to the point where she was unable to protect her airway. She required intubation, sedation. Multiple re- evaluations were undertaken. Code precautions were used. Multiple medications were given to prevent deterioration and improve her condition. Review of prior records, history taking from her , consultation with multiple other physicians. 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
[2019-12-02 17:13] LABS: Basophils % 0.1 %; Eosinophils % 0.2 %; Hematocrit 31.6 % (37.0-47.0); Hemoglobin 11.3 g/dL (11.5-15.3); Lymphocytes # 1.2 10^3/uL (0.8-4.8); Lymphocytes % 5.2 %; Mean Corpuscular HGB Conc 35.8 g/dL (30.0-36.0); Mean Corpuscular Volume 78.2 fL (81-99); Monocytes # 1.1 10^3/uL (0.2-0.9); Monocytes % 4.8 %; Neutrophils # 21.08 10^3/uL (1.8-7.7); Neutrophils % 89.1 %; Nucleated Red Blood Cells % 0 %; Platelet Count 564 10^3/cmm (130-400); Red Blood Count 4.04 10^6/uL (4.1-5.3); Red Cell Distribution Width 12.7 % (12.1-15.1); White Blood Count 23.7 10^3/uL (4.0-10.0)
[2019-12-02 17:17] LABS: INR 0.97 (0.8-1.2)
[2019-12-02 17:18] LABS: Fibrinogen 609 mg/dL (174-498)
[2019-12-02 17:20] LABS: D Dimer 1.63 ug/mIFEU (0-0.59)
[2019-12-02 17:21] LABS: Lactic Sepsis W/Reflex 2.3 mmol/L (0.5-2.2)
[2019-12-02 17:31] LABS: NT Pro B Type Natriuretic Pept 13137 pg/mL (0-125); Procalcitonin 4.47 ng/mL (0-0.5)
[2019-12-02] MEDS: vecuronium 10 mg SDV IVP (17:35)
[2019-12-02] MEDS: propofol 1,000 MG/100 ML INJ 10 MG (17:36)
[2019-12-02 17:42] LABS: Alanine Aminotransferase 16 U/L (0-33); Albumin Level 2.6 g/dL (3.5-5.2); Alkaline Phosphatase 93 IU/L (35-105); Aspartate Amino Transferase 31 U/L (0-32); Blood Urea Nitrogen 5 mg/dL (8-23); C Reactive Protein 115.1 mg/L (0.0-4.9); Calcium 6.9 mg/dL (8.5-10.5); Carbon Dioxide 30 mmol/L (22-29); Chloride 66 mmol/L (98-107); Ferritin 142 ng/mL (15-150); Globulin 3.2 g/dL (1.3-4.6); Glomerular Filtration Rate 160.2 mL/min (90-130); Glucose 225 mg/dL (65-115); Osmolality Calculated 227 mOsm/kg (285-295); Total Bilirubin 0.3 mg/dL (0.15-1.2); Total Protein 5.8 g/dL (6.6-8.7)
[2019-12-02 17:43] LABS: Influenza A by IFA Negative (Negative); Influenza B by IFA Negative (Negative); SARS Covid-2 Antigen Negative (Negative)
[2019-12-02 17:54] LABS: ABG PCO2 40.3 mmHg (35-45); ABG PH Result 7.54 (7.35-7.45); Base Excess ABG 10.5 mmol/L (-2.0-2.0); Blood Gas Allen Test Pos; Blood Gas Operator Identificat ED; Blood Gas Sample Site Radial, right; Blood Gas Sample Type Arterial; Blood Gas Tidal Volume 0.45; HCO3 ABG 34.1 mmol/L (22-26); Oxygen Device VENT
[2019-12-02 17:58] LABS: Troponin(5th) Baseline 24 ng/L (0-10)
[2019-12-02 18:20] LABS: Sodium 107 mmol/L (136-145)
--- NOTE | 2019-12-02 18:20 | ECG_ITS ---
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 Measurements Intervals [place] Rate: 94 P: 57 NE: 136 QRS: 106 QRSD: 100 T: 0 QT: 381 QTc: 479 Interpretive Statements SINUS RHYTHM WITH OCCASIONAL ECTOPIC PREMATURE COMPLEXES POSSIBLE LEFT ATRIAL ENLARGEMENT [-0.1mV P WAVE IN V1/V2] RIGHT AXIS DEVIATION [QRS AXIS > 100] MODERATE T-WAVE ABNORMALITY, CONSIDER ANTERIOR ISCHEMIA [-0.1+ mV T WAVE IN V3/V4] Compared to ECG 12/02/2019 16:26:03 Right-axis deviation now present T-wave abnormality now present Possible ischemia now present Sinus tachycardia no longer present Ventricular premature complex(es) no longer present Incomplete right bundle-branch block no longer present Myocardial infarct finding no longer present Electronically Signed On 12-03-2019 16:21:52 CDT by Tian Powers M.D. [id number]
[2019-12-02 18:46] LABS: Reflex Lactate Order REFLEX LACTIC ORDERD
--- NOTE | 2019-12-02 18:49 | PC.NURSE ---
Dr Weldon gave verbal orders Not to give Fluids
--- NOTE | 2019-12-02 18:53 | CTR_ITS ---
PROCEDURE INFORMATION: Exam: CT Head Without Contrast Exam date and time: 12/02/2019 7:09 PM Age: 64 years old Clinical indication: Altered mental status/memory loss and weakness, extremity; Bilateral; Confusion or disorientation; Additional info: Hyponatremia, AMS TECHNIQUE: Imaging protocol: Computed tomography of the head without contrast. Radiation optimization: All CT scans at this facility use at least one of these dose optimization techniques: automated exposure control; mA and/or kV adjustment per patient size (includes targeted exams where dose is matched to clinical indication); or iterative reconstruction. COMPARISON: CT head wo con* [id number] 09/06/2019 6:38 PM RADIATION DOSE METRICS: Total DLP (mGy-cm): 670.03 FINDINGS: Brain: Normal. No hemorrhage. Unremarkable white matter. No mass effect. Ventricles: Normal. No ventriculomegaly. Bones/joints: Unremarkable. No acute fracture. Sinuses: Visualized sinuses are unremarkable. No fluid levels. Mastoid air cells: Visualized mastoid air cells are well aerated. Soft tissues: Unremarkable. An ET tube is present. CT/CT head wo con* [id number] IMPRESSION: No acute intracranial abnormality. Radiation Dose CTDIVOL = (mGy): DLP = 670.03 (mGy-cm)
[2019-12-02] MEDS: azithromycin 500 MG in sodium chloride 0.9% 250 ML 250 MG IV (18:54)
[2019-12-02] MEDS: dexamethasone 10 mg/mL INJ IVP (18:55)
[2019-12-02] MEDS: enoxaparin 100 mg/mL Syringe 90 MG SUBCUT (18:55)
[2019-12-02] MEDS: cefTRIAXone 1,000 MG in sodium chloride 0.9% (plus) 50 ML 100 MG IV (18:55)
[2019-12-02 19:17] LABS: Troponin 5 2HR 24.46 ng/L (0-10); Troponin 5 2HR Delta 0.46 ABS# (0-10)
[2019-12-02 19:34] LABS: Anion Gap 14.8 (5-19); Blood Urea Nitrogen 4 mg/dL (8-23); Calcium 7.1 mg/dL (8.5-10.5); Carbon Dioxide 31 mmol/L (22-29); Chloride 67 mmol/L (98-107); Glomerular Filtration Rate 123.8 mL/min (90-130); Glucose 198 mg/dL (65-115); Osmolality Calculated 231 mOsm/kg (285-295)
[2019-12-02 19:37] LABS: Potassium 2.8 mmol/L (3.5-5.1); Sodium 110 mmol/L (136-145)
--- NOTE | 2019-12-02 20:00 | PM.HP ---
Providers/Chief Complaint Admitting Physician: Ana Pringle MD Primary Care Provider: KATRINA Cash Chief Complaint: high bs History of Present Illness Ingris Mendosa is a 64 year old female with PMHx noted below presents from home accompanied by her due to ongoing confusion, weakness, diarrhea for the past several days. Patient is currently intubated during my assessment in the ER so history obtained from conversation with over the phone. It seems that since Thursday patient has had minimal oral intake, has had episodes of nausea and vomiting, complained of throat pain and difficulty swallowing and had hyperglycemia despite being on insulin; in addition to having had at least 4 falls since Thursday due to unsteady gait. also mentions that for the past several months she has had gradual decline in her mental status including bringing up her mother and thinking that she has another son which is not the case. states that despite the for fall she has not had any loss of consciousness or head trauma. Around the mobile home she ambulates independently and while outside uses a Rollator. Due to the COVID-19 pandemic she has mostly been homebound for the past 2 months. She has not had any contact with known COVID-19 positive individuals. She is chronically short of breath and has a dry cough per , is a chronic smoker, is not oxygen dependent at baseline. She is currently sedated on propofol, and is consistently breathing over the vent. She has received therapeutic dose of Lovenox due to noted d-dimer elevation, ceftriaxone, azithromycin, dose of IV steroids, 500 mL of normal saline bolus. Per discussion with nephrology she will be started on hypertonic saline. Labs indicate leukocytosis with white count of 23.7, hemoglobin of 11.3, platelet count of 564, d-dimer elevation at 1.63, initial sodium of 107, potassium of 3.0, normal renal function, chloride of 66, bicarb of 30, blood glucose of 235, rapid COVID-19 test is negative, influenza is also negative. PCR COVID test has been sent and is currently pending. Chest x-ray suggestive of fluid overload versus infection. She is currently normotensive, tachycardic, afebrile. Due to ventilator support she will be admitted to ICU. Review of Systems Narrative: -Obtained from as patient is currently on ventilator support Const: Reports: change in appetite (decreased appetite) and fatigue; Denies: fever(s) or chills ENMT: Reports: odynophagia Card: Reports: dyspnea on exertion (Chronic); Denies: syncope Resp: Reports: dyspnea (Chronic) and non-productive cough (Chronic) GI: Reports: nausea, vomiting and diarrhea; Denies: abdominal pain, hematemesis or hematochezia : Denies: difficulty voiding, dysuria or hematuria Skin/Breast: Reports: rash (Groin) Neuro: Reports: weakness in extremities, difficulty walking and frequent falls; Denies: numbness in extremities Medications/Allergies Home Medications Medication Instructions Recorded Confirmed Last Taken Type aspirin [Aspir-81] 81 mg PO DAILY 04/09/19 12/02/19 09/06/19 History atorvastatin 80 mg PO QPM 04/09/19 12/02/19 09/06/19 History levothyroxine 75 mcg PO DAILY 04/09/19 12/02/19 09/06/19 History lidocaine 1 patch TOPICAL PRN PRN 04/09/19 12/02/19 Unknown History metoprolol tartrate 25 mg PO BID 04/09/19 12/02/19 09/06/19 History pantoprazole 40 mg PO DAILY 04/09/19 12/02/19 09/06/19 History insulin aspart U-100 [Novolog See Rx Instructions .ROUTE 04/10/19 12/02/19 09/05/19 Rx Flexpen U-100 Insulin] .COMPLEX #0 ml metoclopramide HCl 5 mg tablet 5 mg PO .qac #90 tab 08/10/19 12/02/19 09/06/19 Rx acetaminophen [Tylenol Extra 1,000 mg PO PRN 08/24/19 12/02/19 09/05/19 History Strength] vancomycin See Rx Instructions .ROUTE 08/30/19 12/02/19 09/06/19 Rx .COMPLEX #48 cap amlodipine 10 mg PO DAILY #30 tab 09/10/19 12/02/19 Unknown Rx furosemide 20 mg PO EVERY OTHER DAY #15 tab 09/10/19 12/02/19 09/06/19 Rx glimepiride 2 mg PO DAILY #15 tab 09/10/19 12/02/19 09/06/19 Rx magnesium oxide 400 mg PO BID #60 tab 09/10/19 12/02/19 Unknown Rx sodium Cl-sod cit-pot Cl-dextr See Rx Instructions .ROUTE 09/10/19 12/02/19 Unknown Rx [NormaLyte ORS] .COMPLEX #288 each hydroxyzine pamoate 50 mg capsule 50 mg PO BID PRN #60 cap 10/19/19 12/02/19 Unknown Rx quetiapine 50 mg tablet 50 mg PO BEDTIME #30 tab 10/19/19 12/02/19 Unknown Rx trazodone 150 mg tablet 150 mg PO BEDTIME #30 tab 10/19/19 12/02/19 Unknown Rx venlafaxine 150 mg 150 mg PO DAILY #30 cap 10/19/19 12/02/19 Unknown Rx capsule,extended release 24 hr Allergies Allergy/AdvReac Type Severity Reaction Status Date / Time No Known Allergies Allergy Verified 10/18/19 14:37 PFSH Acute PFSH: Medical History (Updated 12/02/19 @ 20:37 by Ana Pringle MD) C. 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, recurrent severe without psychotic features Morbid obesity Post-traumatic stress disorder, chronic Surgical History H/O esophagogastroduodenoscopy H/O: hysterectomy History of bunionectomy bilateral Hx of cholecystectomy Status post colonoscopy Family History Other CAD (coronary artery disease) Cancer Diabetes Hypertension Denies family history of Anesthesia complication Bleeding disorder Social History (Updated 12/02/19 @ 20:25 by Ana Pringle MD) Smoking and tobacco status: current every day smoker cigars Cigar details: 1 PPD Smoking risk assessment/counseling performed?: No Alcohol intake: former Former alcohol use details: Reportedly has not had any alcohol since June Substance/Drug Use: never Household members: spouse Housing: Manufactured/Mobile home Marital status: Current occupational status: retired History of recent travel: No Vitals/I&O/Wt Last Vital Signs Temp 97.5 F L 12/02/19 16:08 Pulse 114 H 12/02/19 19:18 Resp 18 12/02/19 19:18 BP 155/103 12/02/19 19:18 Pulse Ox 99 12/02/19 19:18 Physical Exam Const: COMMON NORMALS: no acute distress GENERAL APPEARANCE: cooperative and patient mechanically ventilated NUTRITIONAL APPEARANCE: obese OTHER: -Sedated on propofol HENMT: COMMON NORMALS: normocephalic and atraumatic HEAD & SCALP: normocephalic and atraumatic Eye: COMMON NORMALS: Equal, round and reactive pupils present, EOMs intact bilaterally and conjunctivae normal CONJUNCTIVA: Yes conjunctivae normal PUPIL: Yes Equal, round and reactive pupils present Neck/C-Spine: COMMON NORMALS: full ROM GENERAL: Yes normal visual inspection and Yes trachea midline OTHER: -Right IJ IV access Resp: COMMON NORMALS: normal respiratory effort, No retractions and No use of accessory muscles EFFORT & INSPECTION: Yes symmetric chest movement AUSCULTATION: rhonchi (More pronounced on the left) OTHER: -On vent support, ETT-23 cm at lip -vent settings: FiO2-50%, PEEP-10 -consistently breathing over vent Cardio: COMMON NORMALS: regular rhythm, S1 normal heart sound present, S2 normal heart sound present and No murmurs present (Cardio) RATE: tachycardic RHYTHM: regular rhythm HEART SOUNDS: S1 normal heart sound present and S2 normal heart sound present GI: COMMON NORMALS: Normal to inspection, nondistended, normoactive bowel sounds present and Soft to palpation INSPECTION: Yes central obesity PALPATION: Yes Soft to palpation OTHER: -mild bruising on abdominal wall : BLADDER/KIDNEY EXAM: Yes catheter in place Catheter type (Female): urethral Extremity: COMMON NORMALS: normal to inspection, no clubbing, cyanosis or edema and no pedal edema OTHER: -bilateral feet cool to the touch; equally palpable peripheral pulses Neuro: OTHER: -sedated Psych: OTHER: -sedated Skin: COMMON NORMALS: no rashes or lesions noted, no jaundice, no petechiae and no mottling GENERAL SKIN EXAM: no rashes or lesions noted Urinary Catheter Management^: Magana: Cath Placed During This Visit: yes Urinary Catheter Date of Insertion: 12/02/19 Urinary Catheter Time of Insertion: 18:44 Sepsis: Is patient septic: Yes Focused sepsis exam performed: Yes Date exam was performed: 12/02/19 Time exam was performed: 19:30 Data : 12/02/19 16:50 12/02/19 18:46 Micro: Microbiology 12/02/19 16:50 Blood Culture - Preliminary Blood SPECIMEN COLLECTED A&P Assessment and plan (1) Hyponatremia: -Noted significant hyponatremia, sodium as low as 107. Has had prior hyponatremia though sodium levels have not been quite this low in the past. Noted significant and progressive generalized weakness, altered mental status per family -Nephrology consult by Dr. Benjaimn ramirez, will give 100 mL of hypertonic saline then recheck sodium levels -seizure precautions -Close monitoring of chemistry particularly sodium levels -Has Magana catheter in place, monitor urine output -Pending CT scan of the head -Noted significant BNP elevation (13, 137) though does not appear overtly fluid overloaded clinically. Noted possible pulmonary edema on chest x-ray. Could be hypervolemic hyponatremia -Chronically on Lasix which was taken today, last echo done in August shows an ejection fraction of 55% with grade 1 diastolic dysfunction -Currently on vent support -Review of medical record shows mention of possible adrenal insufficiency, review of med list does not include steroids -Check TSH, urinalysis, urine lytes Status: Acute (2) Acute respiratory failure: -Currently on vent support -Daily ABG, chest x-ray while on vent -Sedation with propofol -Close monitoring of respiratory status -Due to concern for possible pneumonia we will treat with vancomycin, Zosyn and Levaquin. Zosyn added secondary to concern for possible aspiration -Not oxygen dependent at baseline -IV steroids -Close monitoring of vital signs -Noted leukocytosis with white count of 22.7, neutrophilic predominance, continue to trend -Rapid COVID-19 screen negative, influenza negative, PCR COVID-19 test pending -Associated sepsis as evidenced by leukocytosis, hypoxia, lactic acidosis, tachycardia Status: Acute Qualifiers: Respiratory failure complication: unspecified whether with hypoxia or hypercapnia Qualified Code(s): J96.00 - Acute respiratory failure, unspecified whether with hypoxia or hypercapnia (3) Acute encephalopathy: -Per has had gradually declining mental status for several months, worsening over the past few days which could be at least in part secondary to degree of hyponatremia -Currently on sedation Status: Acute (4) Hypertension: -Monitor vital signs -Currently low normal blood pressure so we will hold oral antihypertensives Status: Chronic Qualifiers: Hypertension type: essential hypertension Qualified Code(s): I10 - Essential (primary) hypertension (5) Insulin dependent type 2 diabetes mellitus: -Complicated by gastroparesis -Last A1c in July was 7.2 -Per family has had significant hyperglycemia over the past several days so we will recheck A1c -Accu-Cheks, hypoglycemia precautions, ISS Status: Chronic (6) Hyperlipidemia: -Resume statin Status: Chronic Qualifiers: Hyperlipidemia type: unspecified Qualified Code(s): E78.5 - Hyperlipidemia, unspecified (7) GERD (gastroesophageal reflux disease): -PPI IV Status: Chronic Qualifiers: Esophagitis presence: esophagitis presence not specified Qualified Code(s): K21.9 - Gastro-esophageal reflux disease without esophagitis (8) Hypothyroidism: -Check TSH -Resume levothyroxine Status: Chronic Qualifiers: Hypothyroidism type: unspecified Qualified Code(s): E03.9 - Hypothyroidism, unspecified (9) Diarrhea: -Has had prior history of C. difficile with prolonged treatment on oral vancomycin, has been off antibiotics since September -Has had ongoing diarrhea so we will check stool studies including C. difficile Status: Acute Qualifiers: Diarrhea type: unspecified type Qualified Code(s): R19.7 - Diarrhea, unspecified (10) Weakness: -Likely secondary to hyponatremia as well as some degree of physical deconditioning -Fall precautions -PT evaluation when appropriate Status: Acute (11) Hypokalemia: -Replace as needed -Continue to monitor Status: Acute (12) CKD (chronic kidney disease), stage II: -Renal function is currently stable -Continue to monitor renal function, avoid nephrotoxins, renally dose meds -Monitor urine output, has Magana catheter in place -Nephrology on board Status: Acute Additional A&P Information -Noted d-dimer elevation, will likely need CTA to rule out PE. Received therapeutic dose of Lovenox in ER -Chronic pain -Depression/anxiety, hold anxiolytics, antipsychotics and antidepressants -NPO while on vent. If prolonged need for ventilator support may require tube feeding initiation -GI ppx with PPI -DVT ppx with Lovenox, SCDs -Dispo: home, has services -Code status: FULL code Attestations Medical Necessity Statement*: Ingris Mendosa's hospital stay will require greater than 2 midnights for management of significant and symptomatic hyponatremia, acute respiratory failure currently on vent support, sepsis on broad-spectrum IV antibiotics. Time Spent in Patient Care: Greater than 35 minutes (>than 50% of time spent in counselling and/or direct pt care on unit). Critical Care Time: The high probability of a clinically significant, sudden or life threatening deterioration of the patient's [cardiovascular, respiratory] system(s) required my full and direct attention, intervention and personal management. The critical care time is as shown. This time is in addition to time spent performing any reported procedures but includes the following: [x] Data and vital sign review and interpretation [x] Patient assessment, examination and intervention [x] Documentation [x] Medication orders and management Critical Care Time (min): 15 Coding Level of Care Code Acute Drainage Inspector for Chg Fwd Diagnoses Hyponatremia E87.1 Acute respiratory failure J96.00 Respiratory failure complication: unspecified whether with hypoxia or hypercapnia Acute encephalopathy G93.40 Hypertension I10 Hypertension type: essential hypertension Insulin dependent type 2 diabetes mellitus E11.9; Z79.4 Hyperlipidemia E78.5 Hyperlipidemia type: unspecified GERD (gastroesophageal reflux disease) K21.9 Esophagitis presence: esophagitis presence not specified Hypothyroidism E03.9 Hypothyroidism type: unspecified Diarrhea R19.7 Diarrhea type: unspecified type Weakness R53.1 Hypokalemia E87.6 CKD (chronic kidney disease), stage II N18.2 Sepsis Event Note Evaluation Current stage of sepsis: sepsis Initial hypotension due to sepsis/infection: SBP < 90 mmHg Possible source: pulmonary Focused Exam Vital Signs Temp Pulse Pulse Resp BP BP Pulse Ox 12/02/19 19:18 114 H 18 155/103 99 12/02/19 18:00 106 H 18 130/96 99 12/02/19 17:39 15 12/02/19 17:36 93 15 82/59 100 12/02/19 16:43 101 H 24 H 100 12/02/19 16:08 97.5 F L 106 H 15 134/93 58 L Respiratory exam: Present patient mechanically ventilated Cardiovascular exam: Present S1, S2 and tachycardia Peripheral pulse strength: 3+ Normal Peripheral pulse location: Pedal Skin exam: pale Date exam was performed: 12/02/19 Time exam was performed: 20:54
[2019-12-02] MEDS: sodium chloride 3% 500 ML 45 ML IV (20:54)
--- NOTE | 2019-12-02 21:26 | P.CONIM_ITS ---
Providers/Reason For Consult Consulting Physican/Specialty*: Monika Alexander D.O. Reason for Consult*: Hyponatremia Attending Physician: Ana Pringle MD Primary Care Provider: KATRINA Cash History of Present Illness History of Present Illness Ingris Mendosa is a 64 year old female presenting with altered mental status, intubated in ER. History obtained from chart. Several days of nausea, vomiting, diarrhea. Was on furosemide. Review of Systems General: Reports: ROS unobtainable due to endotracheal tube Meds/Allergies Home Medications and Allergies Home Medications Medication Instructions Recorded Confirmed Last Taken Type aspirin [Aspir-81] 81 mg PO DAILY 04/09/19 12/02/19 09/06/19 History atorvastatin 80 mg PO QPM 04/09/19 12/02/19 09/06/19 History levothyroxine 75 mcg PO DAILY 04/09/19 12/02/19 09/06/19 History lidocaine 1 patch TOPICAL PRN PRN 04/09/19 12/02/19 Unknown History metoprolol tartrate 25 mg PO BID 04/09/19 12/02/19 09/06/19 History pantoprazole 40 mg PO DAILY 04/09/19 12/02/19 09/06/19 History insulin aspart U-100 [Novolog See Rx Instructions .ROUTE 04/10/19 12/02/19 09/05/19 Rx Flexpen U-100 Insulin] .COMPLEX #0 ml metoclopramide HCl 5 mg tablet 5 mg PO .qac #90 tab 08/10/19 12/02/19 09/06/19 Rx acetaminophen [Tylenol Extra 1,000 mg PO PRN 08/24/19 12/02/19 09/05/19 History Strength] vancomycin See Rx Instructions .ROUTE 08/30/19 12/02/19 09/06/19 Rx .COMPLEX #48 cap amlodipine 10 mg PO DAILY #30 tab 09/10/19 12/02/19 Unknown Rx furosemide 20 mg PO EVERY OTHER DAY #15 tab 09/10/19 12/02/19 09/06/19 Rx glimepiride 2 mg PO DAILY #15 tab 09/10/19 12/02/19 09/06/19 Rx magnesium oxide 400 mg PO BID #60 tab 09/10/19 12/02/19 Unknown Rx sodium Cl-sod cit-pot Cl-dextr See Rx Instructions .ROUTE 09/10/19 12/02/19 Unknown Rx [NormaLyte ORS] .COMPLEX #288 each hydroxyzine pamoate 50 mg capsule 50 mg PO BID PRN #60 cap 10/19/19 12/02/19 Unknown Rx quetiapine 50 mg tablet 50 mg PO BEDTIME #30 tab 10/19/19 12/02/19 Unknown Rx trazodone 150 mg tablet 150 mg PO BEDTIME #30 tab 10/19/19 12/02/19 Unknown Rx venlafaxine 150 mg 150 mg PO DAILY #30 cap 10/19/19 12/02/19 Unknown Rx capsule,extended release 24 hr Allergies Allergy/AdvReac Type Severity Reaction Status Date / Time No Known Allergies Allergy Verified 10/18/19 14:37 Current Medications Current Medications Generic Name Dose Route Start Last Admin Trade Name Freq PRN Reason Stop Dose Admin Enoxaparin Sodium 40 mg 12/02/19 20:50 12/02/19 21:11 Lovenox SUBCUT Not Given Q24H MICHELLE Sodium Chloride 500 mls @ 45 mls/hr 12/02/19 19:00 12/02/19 20:54 Sodium Chloride 3% IV 45 mls/hr .Q11H7M MICHELLE Administration PFSH Acute PFSH: Medical History C. 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, recurrent severe without psychotic features Morbid obesity Post-traumatic stress disorder, chronic Surgical History H/O esophagogastroduodenoscopy H/O: hysterectomy History of bunionectomy bilateral Hx of cholecystectomy Status post colonoscopy Family History Other CAD (coronary artery disease) Cancer Diabetes Hypertension Denies family history of Anesthesia complication Bleeding disorder Social History Smoking and tobacco status: current every day smoker cigars Cigar details: 1 PPD Smoking risk assessment/counseling performed?: No Alcohol intake: former Former alcohol use details: Reportedly has not had any alcohol since June Substance/Drug Use: never Household members: spouse Housing: Manufactured/Mobile home Marital status: Current occupational status: retired History of recent travel: No Vitals/I&O/Wt Last Vital Signs Temp 97.7 F 12/02/19 21:00 Pulse 102 H 12/02/19 21:00 Resp 27 H 12/02/19 21:00 BP 82/52 12/02/19 21:00 Pulse Ox 99 12/02/19 19:18 12/02/19 12/02/19 12/02/19 06:59 14:59 22:59 Intake Total 50 / 50 Balance 50 / 50 Physical Exam Urinary Catheter Management^: Magana: Cath Placed During This Visit: yes Reason for Continuing Indwelling Catheter: Accurate Measurement of Urinary Output in Critically Ill Patients Urinary Catheter Date of Insertion: 12/02/19 Urinary Catheter Time of Insertion: 18:44 Data Labs: Other Labs: calcium 7.9, albumin 2.6 Micro: Micro: Microbiology 12/02/19 16:50 Blood Culture - Pr eliminary Blood SPECIMEN COLLE ARSLAN ABG^: ABG Interpretation 4: 7.54/40/450 - My Interpretation: Primary metabolic alkalosis Other Data: Other data: CXR 1. There is an ET tube with tip just below the clavicular heads but above the michelle an orogastric tube with tip off the film. 2. There is diffuse airspace density, which may represent pneumonia, pulmonary edema, or inflammatory pneumonitis such as ARDS. These densities are especially confluent on the left. This appearance is nonspecific and can be identified with later stages of COVID-19. CT Head no acute findings Renal ultrasound 08/2019 - normal A&P Additional A&P Information 1. Severe hyponatremia, symptomatic 2. Hypokalemia, hypochloremic metabolic alkalosis 3. Possible pneumonia History suggests volume depletion. Recommend: 100 ml 3% NSS x 1 dose. Repeat serum sodium in one hour. Check urine osmolality, urine sodium, TSH Replace KCl oral and IV. Begin NSS at 75 ml/min, Q 4 hour lytes, goal is to increase serum sodium 4-6 mEq/L in first 24 hours. If sodium increases above 115 mEq/L, change to hypotonic fluids. Discussed with Dr Carney Consult Attestations Medical Necessity Statement: critically ill in ICU Coding Level of Care Code Acute Indirect Fire Infantryman for g Fwd
--- NOTE | 2019-12-02 21:42 | PC.PHAR ---
Pharmacokinetic dosing service Date: 12/02/19 Time: 2141 Objective: Patient: Ingris Mendosa Floor: ICU-9 Age: 64 yo Serum creatinine: 0.5 mg/dL Height: 63.0 Inches Weight (kg): 78 Diagnosis: Relevant medical/social history: Cultures and sensitivities: Other labs: Assessment: IBW (kg): 52.40 Dosing wt(kg): 78 Estimated Creatinine clearance (ml/min): 92.8 CRCL method: Cockcroft and Gault using ibw(default). Drug selected: Vancomycin Loading dose (mg): 0 Vd (liters): 70.2 (factor used: 0.9 L/kg) Celio (hr-1): 0.081 Half life (hrs): 8.56 Recommended dose: 1250 mg Interval: 12 hrs Infusion time (hrs): 1.5 Predicted peak (mcg/mL): 27.0 Predicted trough (mcg/mL): 11.53 Total body weight is being used for vancomycin dosing. Renal function is stable [ ] /unstable [ ] Recommendations: Give Vancomycin 1250 mg q 12 hrs with an expected Cpeak of 27.0 mcg/ml and an expected Ctrough of 11.53 mcg/ml Renal dosing of other antibiotics (review renal dosing of other medications and list guidelines here): Thank you for the consult, will continue to follow. Signature: Dori Escalante [facility]
[2019-12-02] MEDS: levofloxacin-dextrose 5 % 750 MG/150 ML PREMIX 100 MG IV (21:49)
--- NOTE | 2019-12-02 21:50 | PC.NURSE ---
Addendum entered by Shorty Funez RN 12/02/19 22:17: Witnessed Telephone consent for central line by Libby Catherine RN Original Note: CONSENT , Chepe Mendosa, called for consent for central line by Libby Catherine RN. Witnessed telephone consent by Shorty Funez RN.
[2019-12-02] MEDS: potassium chloride oral liq 20 mEq/15 mL UDC 40 MEQ PO (21:53)
--- NOTE | 2019-12-02 21:59 | XRR_ITS ---
PROCEDURE INFORMATION: Exam: XR Chest, 1 View Exam date and time: 12/02/2019 10:17 PM Age: 64 years old Clinical indication: Device placement; Patient HX: Central line placement TECHNIQUE: Imaging protocol: XR of the chest Views: 1 view. COMPARISON: CR XR chest 1V portable [id number] 12/02/2019 5:19 PM FINDINGS: Tubes, catheters and devices: There is a left IJ central line with tip in the superior vena cava. There is an ET tube with tip at the clavicular heads an orogastric tube with tip off the film. Lungs: Ground-glass and interstitial lung opacities have improved slightly compared to the prior film. Pleural space: Unremarkable. No pleural effusion. No pneumothorax. Heart/Mediastinum: Unremarkable. No cardiomegaly. Bones/joints: No acute abnormality. XR/XR chest 1V portable [id number] IMPRESSION: 1. There is a left IJ central line with tip in the superior vena cava. 2. Ground-glass and interstitial lung opacities have improved slightly compared to the prior film.
--- NOTE | 2019-12-02 22:00 | PC.NURSE ---
Central line placement Nurses unable to gain IV access after multiple attempts. Has Right EJ IV with multiple medications to be given. Dr. Pringle notified and received orders for central line placement. Consent was obtained over the phone by Chepe. Time out preformed and assisted Dr. Weldon at bedside for placement of left internal jugular central line placement. Xray obtained to verify placement.
--- NOTE | 2019-12-02 22:20 | ECG_ITS ---
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 Measurements Intervals Calvin Rate: 91 P: 15 AZ: 134 QRS: 97 QRSD: 100 T: 52 QT: 380 QTc: 468 Interpretive Statements SINUS RHYTHM BORDERLINE RIGHT AXIS DEVIATION [QRS AXIS > 90] LOW QRS VOLTAGE IN PRECORDIAL LEADS [QRS DEFLECTION < 1.0 mV IN CHEST LEADS] INCOMPLETE RIGHT BUNDLE BRANCH BLOCK [90+ ms QRS DURATION, TERMINAL R IN V1/V2, 40+ ms S IN I/aVL/V4/V5/V6] MODERATE T-WAVE ABNORMALITY, CONSIDER ANTERIOR ISCHEMIA [-0.1+ mV T WAVE IN V3/V4] Compared to ECG 12/02/2019 18:19:55 Low QRS voltage now present Incomplete right bundle-branch block now present T-wave abnormality still present Possible ischemia still present Electronically Signed On 12-03-2019 16:25:45 CDT by Tian Powers M.D. [id number]
[2019-12-02] MEDS: piperacillin-tazobactam 3.375 GM in sodium chloride 0.9% (plus) 50 ML IV (22:42)
[2019-12-02 23:02] LABS: Troponin 5 6HR 24.72 ng/L (0-10); Troponin 5 6HR Delta 0.72 ng/L (0-12)
[2019-12-02 23:04] LABS: Lactic Acid level (Lactate) 1.7 mmol/L (0.5-2.2)
[2019-12-02 23:10] LABS: Anion Gap 10.8 (5-19); Blood Urea Nitrogen 5 mg/dL (8-23); Calcium 6.1 mg/dL (8.5-10.5); Carbon Dioxide 31 mmol/L (22-29); Chloride 72 mmol/L (98-107); Glomerular Filtration Rate 160.2 mL/min (90-130); Glucose 212 mg/dL (65-115); Osmolality Calculated 232 mOsm/kg (285-295); Potassium 3.8 mmol/L (3.5-5.1); Thyroid Stimulating Hormone 1.03 uIU/mL (0.27-4.20)
[2019-12-02 23:13] LABS: Magnesium 0.9 mg/dL (1.7-2.3); Sodium 110 mmol/L (136-145)
[2019-12-02] MEDS: propofol 1,000 MG/100 ML INJ 23.4 MG IV (23:17)
[2019-12-03] VITALS (81 sets, daily range): BP systolic 83–148; BP diastolic 39–82; PULSE 87–116; RESP 15–30; TEMP 37.1–37.2; O2SAT 71–100; BMI 30.2
[2019-12-03 00:02] LABS: Urine Creatinine 19 mg/dL (28-217); Urine Random Sodium 45 mmol/L
[2019-12-03 00:31] LABS: Bilirubin Urine Neg (Negative); Blood Urine Neg (Negative); Glucose Urine UA 2+ (Normal); Ketones Urine Negative (Negative); Leukocyte Esterase Urine Negative (Negative); Nitrate Urine Negative (Negative); Protein Urine Neg (Negative); Specific Gravity, Urine 1.005 (1.005-1.030); Urine Appearance Clear (CLEAR); Urine Color Yellow (Yellow); Urobilinogen Urine Norm (Negative); pH Urine 6 (5-7)
[2019-12-03] MEDS: magnesium sulfate premix 4 GM/100 ML PREMIX IV (00:33)
[2019-12-03] MEDS: phenylephrine inj 25 MG in sodium chloride 0.9% 250 ML 30.3 MG IV (01:25)
[2019-12-03] MEDS: acetaminophen 650 mg Supp PR (02:06)
[2019-12-03] MEDS: propofol 1,000 MG/100 ML INJ 23.4 MG IV ×2 (02:46→06:35)
[2019-12-03 03:34] LABS: Blood Urea Nitrogen 7 mg/dL (8-23); Calcium 6.8 mg/dL (8.5-10.5); Carbon Dioxide 30 mmol/L (22-29); Chloride 69 mmol/L (98-107); Glomerular Filtration Rate 100.3 mL/min (90-130); Glucose 295 mg/dL (65-115); Osmolality Calculated 233 mOsm/kg (285-295)
[2019-12-03 03:37] LABS: Sodium 108 mmol/L (136-145)
[2019-12-03] MEDS: sodium chloride 3% 500 ML 45 ML IV (04:20)
[2019-12-03 04:55] LABS: ABG PCO2 37.8 mmHg (35-45); ABG PH Result 7.55 (7.35-7.45); Arterial Blood Gas Hematocrit 34.2 % (37-47); Base Excess ABG 9.9 mmol/L (-2.0-2.0); Blood Gas Allen Test Pos; Blood Gas Sample Site Radial, right; Blood Gas Sample Type Arterial; Oxygen Device VENT; PO2 ABG 77.2 mmHg (80.0-100.0)
[2019-12-03 05:25] LABS: Basophils % 0.1 %; Hemoglobin 10.3 g/dL (11.5-15.3); Lymphocytes # 0.7 10^3/uL (0.8-4.8); Lymphocytes % 3.7 %; Mean Corpuscular HGB Conc 34.3 g/dL (30.0-36.0); Mean Corpuscular Hemoglobin 27.9 pg (28.0-34.0); Mean Corpuscular Volume 81.3 fL (81-99); Mean Platelet Volume 9.3 fL (7.4-10.4); Monocytes # 0.6 10^3/uL (0.2-0.9); Monocytes % 3.6 %; Neutrophils # 16.36 10^3/uL (1.8-7.7); Neutrophils % 92.1 %; Nucleated Red Blood Cells % 0 %; Platelet Count 592 10^3/cmm (130-400); Red Blood Count 3.69 10^6/uL (4.1-5.3); White Blood Count 17.8 10^3/uL (4.0-10.0)
[2019-12-03 05:45] LABS: Estmated Average Glucose 146; Hemoglobin A1C 6.7 % (4.0-6.0)
[2019-12-03 05:52] LABS: Alanine Aminotransferase 12 U/L (0-33); Albumin Level 2.2 g/dL (3.5-5.2); Alkaline Phosphatase 96 IU/L (35-105); Anion Gap 13.4 (5-19); Aspartate Amino Transferase 24 U/L (0-32); Blood Urea Nitrogen 6 mg/dL (8-23); Calcium 6.7 mg/dL (8.5-10.5); Carbon Dioxide 30 mmol/L (22-29); Chloride 72 mmol/L (98-107); Globulin 3.1 g/dL (1.3-4.6); Glomerular Filtration Rate 100.3 mL/min (90-130); Glucose 302 mg/dL (65-115); Magnesium 2.4 mg/dL (1.7-2.3); Osmolality Calculated 241 mOsm/kg (285-295); Potassium 3.4 mmol/L (3.5-5.1); Thyroid Stimulating Hormone 0.42 uIU/mL (0.27-4.20); Total Bilirubin 0.3 mg/dL (0.15-1.2); Total Protein 5.3 g/dL (6.6-8.7)
[2019-12-03 05:59] LABS: Sodium 112 mmol/L (136-145)
--- NOTE | 2019-12-03 06:00 | XRR_ITS ---
PROCEDURE INFORMATION: Exam: XR Chest, 1 View Exam date and time: 12/03/2019 6:20 AM Age: 64 years old Clinical indication: Shortness of breath; Additional info: On vent support TECHNIQUE: Imaging protocol: XR of the chest Views: 1 view. COMPARISON: CR XR chest 1V portable [id number] 12/02/2019 10:23 PM FINDINGS: Tubes, catheters and devices: Endotracheal tube, tip 2 cm above michelle. Nasogastric tube, tip below diaphragm and off image. Left internal jugular central venous line, tip overlying the mid superior vena cava. Lungs: Moderate mixed interstitial/alveolar opacities throughout both lungs, similar to prior study. These findings may represent any combination of pulmonary edema and pneumonia. Pleural space: No visible pneumothorax or pleural effusion. Heart/Mediastinum: Heart size within normal limits. Bones/joints: No emergent findings identified. XR/XR chest 1V portable [id number] IMPRESSION: 1. Moderate mixed interstitial/alveolar opacities throughout both lungs, similar to prior study. These findings may represent any combination of pulmonary edema and pneumonia.
[2019-12-03] MEDS: fentaNYL 50 mcg/mL INJ 2mL 25 MCG IVP ×2 (06:24→10:54)
[2019-12-03] MEDS: piperacillin-tazobactam 3.375 GM in sodium chloride 0.9% (plus) 50 ML IV ×3 (06:33→22:55)
--- NOTE | 2019-12-03 07:25 | PM.PN ---
Subjective Subjective: Interval history: intubated, pressors added overnight COVID PUI - symptomatic. Patient not examined Medications: Reviewed: Yes Vitals/I&O/Wt Last Vital Signs Temp 97.7 F 12/02/19 21:00 Pulse 97 12/03/19 06:00 Resp 15 12/03/19 05:07 BP 120/68 12/03/19 06:00 Pulse Ox 98 12/03/19 06:00 12/02/19 12/03/19 12/03/19 22:59 06:59 14:59 Intake Total 150 / 150 1307.883 / 1457.883 Output Total 1175 / 1175 Balance 150 / 150 132.883 / 282.883 Weight last 48 hrs Weight 77.564 kg Weight 77.564 kg Physical Exam Urinary Catheter Management^: Magana: Cath Placed During This Visit: yes Reason for Continuing Indwelling Catheter: Accurate Measurement of Urinary Output in Critically Ill Patients Urinary Catheter Date of Insertion: 12/02/19 Urinary Catheter Time of Insertion: 18:44 Data : 12/03/19 04:42 12/03/19 04:42 Other Labs: 7.55/37/77 on 30%, Na 112, K 3.2, Mg 2.4, yolanda Ca 8, BS 304 urine osm pending Micro: Microbiology 12/03/19 02:10 Blood Culture - Preliminary Blood SPECIMEN COLLECTED 12/02/19 16:50 Blood Culture - Preliminary Blood SPECIMEN COLLECTED A&P Additional A&P Information 1. Severe hyponatremia, symptomatic, has received 200 ml 3% NSS, now on infusion at 45 ml/hr - repeat serum Na pending, urine osmolality pending 2. Hypokalemia, hypochloremic metabolic alkalosis 3. Possible pneumonia History suggests volume depletion. Recommend: continue Q 4 hour lytes, goal is to increase serum sodium 4-6 mEq/L in first 24 hours. If sodium increases above 115 mEq/L, change to hypotonic fluids. 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
[2019-12-03] MEDS: pantoprazole 40 mg SDV IVP (08:31)
[2019-12-03] MEDS: levothyroxine 150 mcg Tablet 75 MCG OG-TUBE (08:31)
[2019-12-03 09:03] LABS: Anion Gap 12.7 (5-19); Blood Urea Nitrogen 6 mg/dL (8-23); Calcium 6.8 mg/dL (8.5-10.5); Carbon Dioxide 31 mmol/L (22-29); Chloride 74 mmol/L (98-107); Glomerular Filtration Rate 100.3 mL/min (90-130); Glucose 333 mg/dL (65-115); Osmolality Calculated 247 mOsm/kg (285-295); Potassium 3.7 mmol/L (3.5-5.1)
[2019-12-03 09:11] LABS: Sodium 114 mmol/L (136-145)
[2019-12-03 09:52] LABS: Cortisol Random 17.06 ug/mL (2.47-19.5)
[2019-12-03] MEDS: potassium chloride oral liq 20 mEq/15 mL UDC 40 MEQ PO (11:04)
[2019-12-03 12:01] LABS: ABG PCO2 38.9 mmHg (35-45); ABG PH Result 7.53 (7.35-7.45); Arterial Blood Gas Hematocrit 31.5 % (37-47); Base Excess ABG 9.1 mmol/L (-2.0-2.0); Blood Gas Allen Test Pos; Blood Gas Operator Identificat CAK; Blood Gas Sample Site Brachial, left; Blood Gas Sample Type Arterial; Carboxyhemoglobin 1.1 %THgb (0.4-20.1); HCO3 ABG 32.5 mmol/L (22-26); HGB O2 Sat 96.9 % (95-100); Methemoglobin 0.8 % (0.4-1.5); Oxygen Device VENT; Oxygen Saturation ABG 98.7; PO2 ABG 95.3 mmHg (80.0-100.0); Potassium Level - ABG 3.7 mmol/L (3.5-5.0); Total Hemoglobin 10.3 g/dL (12-16)
[2019-12-03 12:43] LABS: Anion Gap 11.7 (5-19); Blood Urea Nitrogen 6 mg/dL (8-23); Calcium 6.6 mg/dL (8.5-10.5); Carbon Dioxide 30 mmol/L (22-29); Chloride 80 mmol/L (98-107); Glucose 200 mg/dL (65-115); Osmolality Calculated 247 mOsm/kg (285-295); Potassium 3.7 mmol/L (3.5-5.1)
[2019-12-03 13:05] LABS: Sodium 118 mmol/L (136-145)
[2019-12-03] MEDS: dextrose 5% 1,000 ML 75 ML IV (13:58)
[2019-12-03] MEDS: ipratropium-albuterol 3 mL Neb INHALATION ×2 (14:22→20:08)
--- NOTE | 2019-12-03 14:43 | P.PN_ITS ---
Subjective Subjective: Interval history: This morning patient was examined, she is intubated, sedated, on the ventilator, FiO2 of 30%, PEEP of 8, tidal volumes of 400, has some air leak around her ET tube, no significant PEEP, she was on dual pressors overnight, weaned down to Levophed, currently on just propofol due to concerns for low blood pressure, getting fentanyl pushes, her serum sodium have been coming up to 118, urine output 750, afebrile so far, map greater than 65, running normal sinus rhythm, receiving antibiotics, nephrology is on consult for hypovolemic hyponatremia Medications: Reviewed: Yes Vitals/I&O/Wt Last Vital Signs Temp 97.7 F 12/02/19 21:00 Pulse 93 12/03/19 14:22 Resp 21 H 12/03/19 14:24 BP 127/67 12/03/19 14:00 Pulse Ox 98 12/03/19 14:22 12/02/19 12/03/19 12/03/19 22:59 06:59 14:59 Intake Total 150 / 150 1307.883 / 1457.883 396.25 / 396.25 Output Total 1175 / 1175 750 / 750 Balance 150 / 150 132.883 / 282.883 -353.75 / -353.75 Weight last 48 hrs Weight 77.564 kg Weight 77.564 kg Physical Exam Const: COMMON NORMALS: no acute distress OTHER: Intubated sedated Eye: COMMON NORMALS: Equal, round and reactive pupils present PUPIL: Yes Equal, round and reactive pupils present Lymph: LYMPHATIC: no lymphadenopathy noted Chest: COMMONS NORMALS: normal inspection of the chest Resp: COMMON NORMALS: normal respiratory effort, No retractions, No use of accessory muscles and clear to auscultation bilaterally AUSCULTATION: clear to auscultation bilaterally OTHER: Has some sounds of air leak Cardio: COMMON NORMALS: regular rate, regular rhythm, S1 normal heart sound present and S2 normal heart sound present RATE: regular rate RHYTHM: regular rhythm HEART SOUNDS: S1 normal heart sound present and S2 normal heart sound present GI: COMMON NORMALS: Normal to inspection, nondistended, normoactive bowel sounds present, Soft to palpation and non-tender PALPATION: Yes Soft to palpation, No Firmness to palpation present (GI), No Guarding due to palpation present (GI) and No Rigid due to palpation Urinary Catheter Management^: Magana: Cath Placed During This Visit: yes Reason for Continuing Indwelling Catheter: Accurate Measurement of Urinary Output in Critically Ill Patients Urinary Catheter Date of Insertion: 12/02/19 Urinary Catheter Time of Insertion: 18:44 Sepsis: Is patient septic: Yes Focused sepsis exam performed: Yes Date exam was performed: 12/03/19 Time exam was performed: 14:48 Data : 12/03/19 04:42 12/03/19 12:00 Micro: Microbiology 12/02/19 17:23 Gram Stain - Final Sputum - Endotracheal Tube Aspirate 12/03/19 02:10 Blood Culture - Preliminary Blood SPECIMEN COLLECTED 12/02/19 16:50 Blood Culture - Preliminary Blood SPECIMEN COLLECTED A&P Assessment and plan (1) Hyponatremia: -Noted significant hyponatremia, sodium as low as 107. Has had prior hypo natremia though sodium levels have not been quite this low in the past. Noted significant and progressive generalized weakness, altered mental status per family -Nephrology consult by Dr. Benjamin ramirez, currently hypertonic saline is off, D5 normal saline -Close monitoring of chemistry particularly sodium levels -Has Magana catheter in place, monitor urine output -CT scan does not show any intracranial abnormality -Noted significant BNP elevation (13, 137) though does not appear overtly fluid overloaded clinically. Noted possible pulmonary edema on chest x-ray. -Chronically on Lasix which was taken today, last echo done in August shows an ejection fraction of 55% with grade 1 diastolic dysfunction -Currently on vent support -Review of medical record shows mention of possible adrenal insufficiency, review of med list does not include steroids -Hold Lasix for now -TSH 0.42, random cortisol 17.06, -Calcium level 6.6 Status: Acute (2) Acute respiratory failure: -Secondary to pulmonary edema, pneumonia, with sepsis, concerns for possible pulmonary embolism given elevated d-dimer, concern for possible COVID- 19 -Currently on vent support -Daily ABG, chest x-ray while on vent -Sedation with propofol, wean as tolerated, with fentanyl pushes -Close monitoring of respiratory status -Chest x-ray shows a moderate mixed interstitial alveolar opacities throughout both lungs, may represent pneumonia or pulmonary edema -Due to concern for possible pneumonia we will treat with vancomycin, Zosyn and Levaquin. Zosyn added secondary to concern for possible aspiration -Not oxygen dependent at baseline -IV steroids -Patient's d-dimer is elevated, cannot do a CT angiogram at this time as she is clinically unstable, started on therapeutic Lovenox, once stable will do a CT angiogram -Close monitoring of vital signs -Noted leukocytosis with white count of 22.7, neutrophilic predominance, continue to trend -Rapid COVID-19 screen negative, influenza negative, PCR COVID-19 test pending -Associated sepsis as evidenced by leukocytosis, hypoxia, lactic acidosis, tachycardia Status: Acute Qualifiers: Respiratory failure complication: unspecified whether with hypoxia or hypercapnia Qualified Code(s): J96.00 - Acute respiratory failure, unspecified whether with hypoxia or hypercapnia (3) Acute encephalopathy: -Per has had gradually declining mental status for several months, worsening over the past few days which could be at least in part secondary to degree of hyponatremia -Currently on sedation Status: Acute (4) Hypertension: -Monitor vital signs -Currently low normal blood pressure so we will hold oral antihypertensives Status: Chronic Qualifiers: Hypertension type: essential hypertension Qualified Code(s): I10 - Essential (primary) hypertension (5) Insulin dependent type 2 diabetes mellitus: -Complicated by gastroparesis -Last A1c in July was 7.2 -Per family has had significant hyperglycemia -Hemoglobin A1c 6.7 today -Accu-Cheks, hypoglycemia precautions, ISS Status: Chronic (6) Hyperlipidemia: -Resume statin Status: Chronic Qualifiers: Hyperlipidemia type: unspecified Qualified Code(s): E78.5 - Hyperlipidemia, unspecified (7) GERD (gastroesophageal reflux disease): -PPI IV Status: Chronic Qualifiers: Esophagitis presence: esophagitis presence not specified Qualified Code(s): K21.9 - Gastro-esophageal reflux disease without esophagitis (8) Hypothyroidism: -Resume levothyroxine Status: Chronic Qualifiers: Hypothyroidism type: unspecified Qualified Code(s): E03.9 - Hypothyroidism, unspecified (9) Diarrhea: -Has had prior history of C. difficile with prolonged treatment on oral vancomycin, has been off antibiotics since September -Has had ongoing diarrhea so we will check stool studies including C. difficile Status: Acute Qualifiers: Diarrhea type: unspecified type Qualified Code(s): R19.7 - Diarrhea, unspecified (10) Weakness: -Likely secondary to hyponatremia as well as some degree of physical deconditioning -Fall precautions -PT evaluation when appropriate Status: Acute (11) Hypokalemia: -Replace as needed -Continue to monitor Status: Acute (12) CKD (chronic kidney disease), stage II: -Renal function is currently stable -Continue to monitor renal function, avoid nephrotoxins, renally dose meds -Monitor urine output, has Magana catheter in place -Nephrology on board Status: Acute Additional A&P Information -Noted d-dimer elevation, will likely need CTA to rule out PE. Received therapeutic dose of Lovenox in ER -Chronic pain -Depression/anxiety, hold anxiolytics, antipsychotics and antidepressants -NPO while on vent. 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 [facility] Diagnoses Hyponatremia E87.1 Acute respiratory failure J96.00 Respiratory failure complication: unspecified whether with hypoxia or hypercapnia Acute encephalopathy G93.40 Hypertension I10 Hypertension type: essential hypertension Insulin dependent type 2 diabetes mellitus E11.9; Z79.4 Hyperlipidemia E78.5 Hyperlipidemia type: unspecified GERD (gastroesophageal reflux disease) K21.9 Esophagitis presence: esophagitis presence not specified Hypothyroidism E03.9 Hypothyroidism type: unspecified Diarrhea R19.7 Diarrhea type: unspecified type Weakness R53.1 Hypokalemia E87.6 CKD (chronic kidney disease), stage II N18.2 Sepsis Event Note Evaluation Current stage of sepsis: severe sepsis Possible source: pulmonary Focused Exam Vital Signs Pulse Resp BP Pulse Ox 12/03/19 14:24 21 H 12/03/19 14:22 93 20 H 98 12/03/19 14:00 91 127/67 100 12/03/19 13:30 90 113/63 100 12/03/19 13:00 90 93/60 100 12/03/19 12:30 92 90/56 100 12/03/19 12:00 96 91/52 100 12/03/19 11:33 95 12/03/19 11:31 19 H 12/03/19 11:30 97 103/64 100 12/03/19 11:28 96 18 98 12/03/19 11:00 91 105/62 100 12/03/19 10:30 92 117/66 100 12/03/19 10:01 19 H 12/03/19 10:00 92 109/64 100 12/03/19 09:30 93 110/66 100 12/03/19 09:00 91 83/53 100 12/03/19 08:30 92 112/61 100 12/03/19 08:13 17 12/03/19 08:00 93 120/78 99 12/03/19 07:30 94 130/70 99 12/03/19 07:00 93 124/69 98 12/03/19 06:30 96 116/67 98 12/03/19 06:00 97 120/68 98 12/03/19 05:30 97 130/69 99 12/03/19 05:07 15 12/03/19 05:00 97 108/76 100 12/03/19 04:30 97 115/71 99 12/03/19 04:00 98 116/70 100 12/03/19 03:30 96 109/65 99 12/03/19 03:00 98 117/70 100 Capillary refill: < 3 Seconds Peripheral pulse strength: 2+ Slightly Diminished Peripheral pulse location: Pedal Skin exam: pale Date exam was performed: 12/03/19 Time exam was performed: 07:52 Problem List (1) Hyponatremia: Status: Acute (2) Acute respiratory failure: Status: Acute (3) Acute encephalopathy: Status: Acute (4) Hypertension: Status: Chronic (5) Insulin dependent type 2 diabetes mellitus: Status: Chronic (6) Hyperlipidemia: Status: Chronic (7) GERD (gastroesophageal reflux disease): Status: Chronic (8) Hypothyroidism: Status: Chronic (9) Diarrhea: Status: Acute (10) Weakness: Status: Acute (11) Hypokalemia: Status: Acute (12) CKD (chronic kidney disease), stage II: Status: Acute
[2019-12-03] MEDS: enoxaparin 80 mg/0.8 mL Syringe SUBCUT (15:59)
[2019-12-03 16:31] LABS: Blood Urea Nitrogen 7 mg/dL (8-23); Calcium 6.4 mg/dL (8.5-10.5); Carbon Dioxide 31 mmol/L (22-29); Chloride 80 mmol/L (98-107); Glomerular Filtration Rate 100.3 mL/min (90-130); Glucose 177 mg/dL (65-115); Osmolality Calculated 246 mOsm/kg (285-295)
[2019-12-03 16:51] LABS: Sodium 118 mmol/L (136-145)
[2019-12-03] MEDS: atorvastatin 40 mg Tablet 80 MG OG-TUBE (17:57)
[2019-12-03 20:31] LABS: Anion Gap 10.9 (5-19); Blood Urea Nitrogen 7 mg/dL (8-23); Calcium 6.4 mg/dL (8.5-10.5); Carbon Dioxide 30 mmol/L (22-29); Chloride 80 mmol/L (98-107); Glomerular Filtration Rate 100.3 mL/min (90-130); Glucose 222 mg/dL (65-115); Osmolality Calculated 247 mOsm/kg (285-295); Potassium 3.9 mmol/L (3.5-5.1)
[2019-12-03 20:37] LABS: Sodium 117 mmol/L (136-145)
[2019-12-03 20:40] LABS: Glucose Point of Care 336 mg/dL (70-110)
[2019-12-03 20:40] LABS: Glucose Point of Care 197 mg/dL (70-110)
[2019-12-03 20:40] LABS: Glucose Point of Care 206 mg/dL (70-110)
[2019-12-03 20:40] LABS: Glucose Point of Care 191 mg/dL (70-110)
[2019-12-03 20:40] LABS: Glucose Point of Care 236 mg/dL (70-110)
[2019-12-03] MEDS: levofloxacin-dextrose 5 % 750 MG/150 ML PREMIX 100 MG IV (20:56)
[2019-12-03] MEDS: propofol 1,000 MG/100 ML INJ 16.4 MG IV (21:46)
[2019-12-03 22:06] LABS: Vancomycin Trough 20.3 ug/mL (10-15)
[2019-12-04] VITALS (47 sets, daily range): BP systolic 96–131; BP diastolic 53–74; PULSE 75–112; RESP 12–35; TEMP 36.3–37.4; O2SAT 92–100
[2019-12-04] MEDS: propofol 1,000 MG/100 ML INJ 18.7 MG IV ×4 (03:00→16:51)
[2019-12-04] MEDS: dextrose 5% 1,000 ML 75 ML IV (03:00)
[2019-12-04] MEDS: enoxaparin 80 mg/0.8 mL Syringe SUBCUT ×2 (03:01→15:20)
[2019-12-04] MEDS: ipratropium-albuterol 3 mL Neb INHALATION ×4 (03:05→20:28)
[2019-12-04 03:57] LABS: Basophils % 0.1 %; Hematocrit 25.6 % (37.0-47.0); Hemoglobin 9.1 g/dL (11.5-15.3); Lymphocytes # 0.9 10^3/uL (0.8-4.8); Lymphocytes % 6.1 %; Mean Corpuscular HGB Conc 35.5 g/dL (30.0-36.0); Mean Corpuscular Volume 78.8 fL (81-99); Mean Platelet Volume 9.2 fL (7.4-10.4); Monocytes # 1.2 10^3/uL (0.2-0.9); Monocytes % 7.7 %; Neutrophils # 13.02 10^3/uL (1.8-7.7); Neutrophils % 85.1 %; Nucleated Red Blood Cells % 0 %; Platelet Count 472 10^3/cmm (130-400); Red Blood Count 3.25 10^6/uL (4.1-5.3); Red Cell Distribution Width 13.3 % (12.1-15.1); White Blood Count 15.3 10^3/uL (4.0-10.0)
[2019-12-04 04:10] LABS: INR 0.98 (0.8-1.2)
[2019-12-04 04:18] LABS: Lactic Sepsis W/Reflex 1.7 mmol/L (0.5-2.2)
[2019-12-04 04:19] LABS: Alanine Aminotransferase 10 U/L (0-33); Albumin Level 2.2 g/dL (3.5-5.2); Alkaline Phosphatase 78 IU/L (35-105); Anion Gap 10.9 (5-19); Aspartate Amino Transferase 14 U/L (0-32); Blood Urea Nitrogen 8 mg/dL (8-23); C Reactive Protein 57.1 mg/L (0.0-4.9); Calcium 6.6 mg/dL (8.5-10.5); Carbon Dioxide 31 mmol/L (22-29); Chloride 81 mmol/L (98-107); Globulin 2.3 g/dL (1.3-4.6); Glucose 285 mg/dL (65-115); Osmolality Calculated 254 mOsm/kg (285-295); Phosphorus 1.6 mg/dL (2.5-4.5); Potassium 3.9 mmol/L (3.5-5.1); Total Bilirubin 0.2 mg/dL (0.15-1.2); Total Protein 4.5 g/dL (6.6-8.7)
[2019-12-04 04:21] LABS: Sodium 119 mmol/L (136-145)
[2019-12-04 04:30] LABS: NT Pro B Type Natriuretic Pept 6824 pg/mL (0-125); Procalcitonin 2.22 ng/mL (0-0.5)
[2019-12-04 04:50] LABS: ABG PCO2 38.4 mmHg (35-45); ABG PH Result 7.55 (7.35-7.45); Arterial Blood Gas Hematocrit 32.8 % (37-47); Blood Gas Allen Test Pos; Blood Gas Operator Identificat JB; Blood Gas Sample Site Radial, right; Blood Gas Sample Type Arterial; HCO3 ABG 33.2 mmol/L (22-26); Oxygen Device VENT; PO2 ABG 98.5 mmHg (80.0-100.0)
--- NOTE | 2019-12-04 06:51 | P.PN_ITS ---
Subjective Subjective: Interval history: intubated, unable to obtain Medications: Reviewed: Yes Medication Review Details: Current Medications Acetaminophen (Tylenol) 650 mg KY Q6H PRN PRN Reason: Fever or mild pain Last Admin: 12/03/19 02:06 Dose: 650 mg Documented by: Albuterol/Ipratropium (Duoneb) 3 ml INHALATION Q6H.RESPIRATORY MICHELLE Last Admin: 12/04/19 03:05 Dose: 3 ml Documented by: Aspirin (Aspirin Ec) 81 mg PO DAILY MICHELLE Atorvastatin Calcium (Lipitor) 80 mg OG-TUBE QPM MICHELLE Last Admin: 12/03/19 17:57 Dose: 80 mg Documented by: Dextrose (D50w) 25 ml IVP ONCE PRN; Protocol PRN Reason: hypoglycemia protocol Dextrose (D50w) 50 ml IVP PRN PRN; Protocol PRN Reason: hypoglycemia protocol Enoxaparin Sodium (Lovenox) 80 mg SUBCUT Q12H MICHELLE Last Admin: 12/04/19 03:01 Dose: 80 mg Documented by: Fentanyl (Sublimaze) 25 mcg IVP Q2H PRN PRN Reason: SEVERE PAIN Last Admin: 12/03/19 10:54 Dose: 25 mcg Documented by: Glucagon (Glucagen) 1 mg IM ONCE PRN; Protocol PRN Reason: Adult Acute Hypoglycemia Prot. Piperacillin Sod/Tazobactam (Sod 3.375 gm/ Sodium Chloride) 50 mls @ 12.5 mls/hr IV Q8H MICHELLE; Protocol Last Infusion: 12/04/19 02:55 Dose: Infused Documented by: Levofloxacin/Dextrose (Levaquin-D5w) 750 mg in 150 mls @ 100 mls/hr IV Q24H MICHELLE; Protocol Last Admin: 12/03/19 20:56 Dose: 100 mls/hr Documented by: Propofol (Diprivan) 1,000 mg in 100 mls @ 0 mls/hr IV .Q0M MICHELLE; Protocol Last Admin: 12/04/19 03:00 Dose: 40 mcg/kg/min, 18.7 mls/hr Documented by: Dextrose (D5w) 500 mls @ 100 mls/hr IV ONCE PRN; Protocol PRN Reason: Adult Acute Hypoglycemia Prot Midazolam HCl 100 mg/ Sodium (Chloride) 100 mls @ 0 mls/hr IV .Q0M MICHELLE; P rotocol Last Titration: 12/03/19 06:34 Dose: 0 mg/hr, 0 mls/hr Documented by: Phenylephrine HCl 25 mg/ (Sodium Chloride) 252.5 mls @ 0 mls/hr IV .Q0M MICHELLE; Protocol Last Titration: 12/03/19 06:34 Dose: 0 mcg/min, 0 mls/hr Documented by: Norepinephrine Bitartrate 8 mg (/ Dextrose) 508 mls @ 0 mls/hr IV .Q0M MICHELLE; Protocol Dextrose (D5w) 1,000 mls @ 75 mls/hr IV .[id number] MICHELLE Last Admin: 12/04/19 03:00 Dose: 75 mls/hr Documented by: Vancomycin HCl 1,250 mg/ (Sodium Chloride) 250 mls @ 250 mls/hr IV Q18H MICHELLE Last Admin: 12/04/19 03:01 Dose: 250 mls/hr Documented by: Insulin Aspart (Novolog) 0 unit SUBCUT WM&BEDTIME MICHELLE; Protocol Last Admin: 12/03/19 20:57 Dose: 4 unit Documented by: Levothyroxine Sodium (Synthroid) 75 mcg OG-TUBE DAILY [facility] Last Admin: 12/03/19 08:31 Dose: 75 mcg Documented by: Methylprednisolone Sodium Succinate (Solu-Medrol) 40 mg IVP Q6H [facility] Last Admin: 12/04/19 03:00 Dose: 40 mg Documented by: Ondansetron HCl (Zofran) 4 mg IVP Q6H PRN PRN Reason: NAUSEA AND VOMITING Pantoprazole Sodium (Protonix) 40 mg IVP DAILY [facility] Last Admin: 12/03/19 08:31 Dose: 40 mg Documented by: Venlafaxine HCl (Effexor Xr) 150 mg PO DAILY [facility] Vitals/I&O/Wt Last Vital Signs Temp 98.9 F 12/04/19 03:45 Pulse 100 12/04/19 06:00 Resp 20 H 12/04/19 05:53 BP 131/68 12/04/19 06:00 Pulse Ox 95 12/04/19 05:45 12/03/19 12/03/19 12/04/19 14:59 22:59 06:59 Intake Total 446.25 / 446.25 270 / 716.25 1113.327 / 1829.577 Output Total 750 / 750 675 / 1425 1400 / 2825 Balance -303.75 / -303.75 -405 / -708.75 -286.673 / -995.423 Weight last 48 hrs Weight 73.845 kg Weight 73.709 kg Weight 77.564 kg Weight 77.564 kg Physical Exam Narrative: EXAM NARRATIVE: due to covid-19 pandemic, exam ws by RN- telenephrology cart not taken in room- to limit risk of spreading infection off pressers vent fi02 of 30%/ cmv/peep 8/ tv 400 sedated , intubted lungs clear heart reg, no rub abd soft, nt, nd, +BS ext trace ainsley neuro- sedated Urinary Catheter Management^: Magana: Cath Placed During This Visit: yes Reason for Continuing Indwelling Catheter: Accurate Measurement of Urinary Output in Critically Ill Patients Urinary Catheter Date of Insertion: 12/02/19 Urinary Catheter Time of Insertion: 18:44 Data : 12/04/19 03:25 12/04/19 03:25 Micro: Microbiology 12/03/19 02:10 Blood Culture - Preliminary Blood NEGATIVE TO DATE 12/02/19 16:50 Blood Culture - Preliminary Blood NEGATIVE TO DATE 12/02/19 17:23 Gram Stain - Final Sputum - Endotracheal Tube Aspirate A&P Additional A&P Information 64 yr old female 1. COVID-19 PUI 2. leukpcytosis improving 3. met alkalosis- await ur chloride -likel volume depletion 4. hyponatremia- improving w/ fluids- prerenal -na correctred to a safe level- will give 1/2 ns - no glucose as her glucose in 285 -labs every 6 hrs -replace phos 5. bnp improving 6. check vanco trough- keep under 19 Attestations Medical Necessity Statement*: VDRF, electrolyte abnormalities Time Spent in Patient Care: 16 - 35 minutes Coding Level of Care Code Acute Manager Behavior for Navid Simons
--- NOTE | 2019-12-04 07:00 | XRR_ITS ---
PROCEDURE INFORMATION: Exam: XR Chest, 1 View Exam date and time: 12/04/2019 12:03 AM Age: 64 years old Clinical indication: Shortness of breath; Additional info: SOB TECHNIQUE: Imaging protocol: XR of the chest Views: 1 view. COMPARISON: CR XR chest 1V portable [id number] 12/03/2019 6:07 AM FINDINGS: Tubes, catheters and devices: Endotracheal tube, feeding tube, neuro muscular stimulation device, and central venous catheter. The endotracheal tube terminates 1.7 cm above the michelle. Lungs: COPD, interstitial prominence, and interval improvement in airspace disease. Pleural space: No pleural effusion. Heart/Mediastinum: No cardiomegaly. Bones/joints: Degenerative change. XR/XR chest 1V portable [id number] IMPRESSION: 1. COPD, interstitial prominence, and interval improvement in airspace disease. 2. Additional findings as described above.
[2019-12-04] MEDS: piperacillin-tazobactam 3.375 GM in sodium chloride 0.9% (plus) 50 ML IV ×3 (07:18→22:43)
[2019-12-04 07:46] LABS: Glucose Point of Care 359 mg/dL (70-110)
[2019-12-04] MEDS: sodium chloride 0.45% 1,000 ML 75 ML IV (08:04)
[2019-12-04] MEDS: FUROsemide 10 mg/mL SDV 4mL 40 MG IVP (08:50)
[2019-12-04] MEDS: pantoprazole 40 mg SDV IVP (08:57)
[2019-12-04] MEDS: levothyroxine 150 mcg Tablet 75 MCG OG-TUBE (09:08)
--- NOTE | 2019-12-04 09:39 | PC.NURSE ---
morning assessment Crackles bilaterally in upper lobes, received order for lasix. Patient is receiving 40mcg/kg/min propofol for sedation. Appears to be tolerating well. No signs of distress, can squeeze hands and breifly open eyes if prompted. No other notable findings.
--- NOTE | 2019-12-04 10:24 | PC.NURSE ---
Assess wound. approximately 6 inch x 6 inch area of excoriation. Applied Aloe vesta ointment and replaced optifoam. Turn patient to left side lying.
[2019-12-04] MEDS: aspirin 81 mg Chew Tablet PO (10:28)
[2019-12-04] MEDS: venlafaxine 75 mg Tablet PO ×2 (10:28→18:36)
[2019-12-04 10:38] LABS: Coronavirus Lab Test PTC Negative
[2019-12-04 11:15] LABS: Alanine Aminotransferase 10 U/L (0-33); Albumin Level 2.2 g/dL (3.5-5.2); Alkaline Phosphatase 83 IU/L (35-105); Anion Gap 14.7 (5-19); Aspartate Amino Transferase 13 U/L (0-32); Blood Urea Nitrogen 7 mg/dL (8-23); Carbon Dioxide 29 mmol/L (22-29); Chloride 81 mmol/L (98-107); Globulin 2.7 g/dL (1.3-4.6); Glucose 327 mg/dL (65-115); Osmolality Calculated 261 mOsm/kg (285-295); Potassium 3.7 mmol/L (3.5-5.1); Sodium 121 mmol/L (136-145); Total Bilirubin 0.2 mg/dL (0.15-1.2); Total Protein 4.9 g/dL (6.6-8.7)
[2019-12-04 12:41] LABS: Glucose Point of Care 387 mg/dL (70-110)
--- NOTE | 2019-12-04 15:01 | PC.NURSE ---
Received critical lab result. Gram positive rods in blood culture. Alerted Dr Zamarripa
[2019-12-04] MEDS: fentaNYL 50 mcg/mL INJ 2mL 25 MCG IVP ×2 (17:13→22:00)
[2019-12-04 17:46] LABS: Glucose Point of Care 325 mg/dL (70-110)
[2019-12-04 18:16] LABS: Anion Gap 9.4 (5-19); Blood Urea Nitrogen 9 mg/dL (8-23); Calcium 6.6 mg/dL (8.5-10.5); Carbon Dioxide 32 mmol/L (22-29); Chloride 82 mmol/L (98-107); Glucose 295 mg/dL (65-115); Magnesium 1.7 mg/dL (1.7-2.3); Osmolality Calculated 257 mOsm/kg (285-295); Phosphorus 2.2 mg/dL (2.5-4.5); Potassium 3.4 mmol/L (3.5-5.1); Sodium 120 mmol/L (136-145)
[2019-12-04] MEDS: atorvastatin 40 mg Tablet 80 MG OG-TUBE (18:36)
[2019-12-04] MEDS: levofloxacin-dextrose 5 % 750 MG/150 ML PREMIX 100 MG IV (20:12)
[2019-12-04] MEDS: propofol 1,000 MG/100 ML INJ 23.4 MG IV (20:27)
--- NOTE | 2019-12-04 20:50 | USCV_ITS ---
Ingris Mendosa Age: 64 Gender: F : 1955 Exam Date: 12/04/2019 16:24 Ordering Phys: Ana Pringle MD Technologist: Radha Washington Exam Location: [facility] [place] Indication: Acute respiratory failure BP: / HR: Rhythm: Sinus Technical Quality: Technically difficult study MEASUREMENTS (Male / Female) Normal Values 2D ECHO LV Diastolic Diameter PLAX 2.0 cm 4.2 - 5.9 / 3.9 - 5.3 cm LV Systolic Diameter PLAX 1.1 cm LV Chamber Size 3.4 cm IVS Diastolic Thickness 1.1 cm 0.6 - 1.0 / 0.6 - 0.9 cm IVS Systolic Thickness 1.4 cm LVPW Diastolic Thickness 1.1 cm 0.6 - 1.0 / 0.6 - 0.9 cm LVPW Systolic Thickness 1.2 cm RV Chamber Size 2.7 cm LVOT Diameter 2.0 cm LV Ejection Fraction 2D Teich 77.2 % LA Diameter 3.1 cm LA Width 3.1 cm LA Height 3.9 cm RA Width 3.2 cm RA Height 4.3 cm Aorta at Sinotubular Diameter 2.1 cm M-MODE LV Diastolic Diameter MM 4.5 cm 4.2 - 5.9 / 3.9 - 5.3 cm LV Systolic Diameter MM 2.8 cm LV Ejection Fraction MM Teich 67.4 % IVS Diastolic Thickness MM 0.8 cm 0.6 - 1.0 / 0.6 - 0.9 cm IVS Systolic Thickness MM 1.1 cm LVPW Diastolic Thickness MM 1.3 cm 0.6 - 1.0 / 0.6 - 0.9 cm LVPW Systolic Thickness MM 1.5 cm RV Diastolic Diameter MM 2.0 cm Aortic Annulus Diameter 2.7 cm LA Ao Ratio MM 1.1 MV E Point Septal Separation 0.4 cm DOPPLER AV Peak Velocity 116.0 cm/s LVOT Peak Velocity 86.0 cm/s AV Area Cont Eq vti 2.2 cm squared AV Area Cont Eq pk 2.2 cm squared MV Area PHT 4.3 cm squared Mitral E to A Ratio 1.0 MV E' Velocity 94.0 cm/s Mitral E to MV E' Ratio 9.6 Mitral E to LV E' Lateral Ratio 8.8 Mitral E to LV E' Septal Ratio 10.6 TR Peak Velocity 256.0 cm/s TR Peak Gradient 26.3 mmHg TV Peak E Velocity 41.0 cm/s Right Atrial Pressure 15.0 mmHg Pulmonary Artery Systolic Pressu 41.2 mmHg FINDINGS Left Ventricle Normal left ventricular cavity size. Normal left ventricular systolic function. No regional wall motion abnormalities. Left ventricular ejection fraction is estimated at 55 %. Grade I/IV diastolic dysfunction (abnormal relaxation filling pattern), normal to mildly elevated filling pressures. Right Ventricle The right ventricle is normal in size and function. Mild pulmonary hypertension, RVSP 41.2 mmHg. Right Atrium The right atrium is normal in size. Left Atrium The left atrium is normal in size. Mitral Valve Moderately thickened mitral valve. No mitral valve stenosis. Mild mitral valve regurgitation. Aortic Valve Moderate aortic valve calcification. No aortic valve stenosis. Trace aortic valve regurgitation. Tricuspid Valve Mild tricuspid valve regurgitation. Pulmonic Valve Structurally normal pulmonic valve without significant stenosis. There is no pulmonic regurgitation. Pericardium Normal pericardium without effusion. Aorta Normal ascending aorta dimension. CONCLUSIONS 1-Normal left ventricular cavity size. Normal left ventricular systolic function. No regional wall motion abnormalities. Left ventricular ejection fraction is estimated at 55 %. Grade I/IV diastolic dysfunction (abnormal relaxation filling pattern), normal to mildly elevated filling pressures. 2-Moderate aortic valve calcification. No aortic valve stenosis. Trace aortic valve regurgitation. 3-Moderately thickened mitral valve. No mitral valve stenosis. Mild mitral valve regurgitation. 4-The right ventricle is normal in size and function. Mild pulmonary hypertension, RVSP 41.2 mmHg. 5-There is no pericardial effusion. 6-When compared to the prior echocardiogram dated 08/26/2019 there is mild tricuspid and mitral valve regurgitation now. Tian Powers MD (Electronically Signed) Final Date: 06 December 2019 17:11 S
[2019-12-04 21:15] LABS: Vancomycin Trough 15.9 ug/mL (10-15)
--- NOTE | 2019-12-04 21:40 | PM.PN ---
Subjective Subjective: Interval history: This morning patient was examined, in the ICU, is currently intubated, sedated, currently propofol at 40, no fentanyl pushes required, off levophed, serum sodium still 118, no air leak around ET tube, good aeration of lungs bilaterally, in the afternoon we tried a weaning trial, however patient became tachypneic, desatted, Lasix was given in preparation for extubation, she did put out 1400 cc, 1 blood culture was positive for gram-positive rods Vitals/I&O/Wt Last Vital Signs Temp 98.2 F 12/04/19 20:00 Pulse 79 12/04/19 20:29 Resp 16 12/04/19 20:30 BP 125/74 12/04/19 20:00 Pulse Ox 100 12/04/19 20:29 12/04/19 12/04/19 12/04/19 06:59 14:59 22:59 Intake Total 1113.327 / 6410.982 3618.348 / 1186.348 144.302 / 1330.650 Output Total 1400 / 2825 1125 / 1125 800 / 1925 Balance -286.673 / -995.423 61.348 / 61.348 -655.698 / -594.350 Weight last 48 hrs Weight 73.845 kg Weight 73.709 kg Weight 77.564 kg Weight 77.564 kg Physical Exam Const: COMMON NORMALS: no acute distress OTHER: Intubated sedated HENMT: COMMON NORMALS: normocephalic HEAD & SCALP: normocephalic Eye: COMMON NORMALS: Equal, round and reactive pupils present PUPIL: Yes Equal, round and reactive pupils present Neck/C-Spine: COMMON NORMALS: no JVD Lymph: LYMPHATIC: no lymphadenopathy noted Chest: COMMONS NORMALS: normal inspection of the chest Resp: COMMON NORMALS: normal respiratory effort, No retractions, No use of accessory muscles and clear to auscultation bilaterally AUSCULTATION: clear to auscultation bilaterally OTHER: Has some sounds of air leak Cardio: COMMON NORMALS: no JVD, regular rate, regular rhythm, S1 normal heart sound present and S2 normal heart sound present RATE: regular rate RHYTHM: regular rhythm HEART SOUNDS: S1 normal heart sound present and S2 normal heart sound present GI: COMMON NORMALS: Normal to inspection, nondistended, normoactive bowel sounds present, Soft to palpation, non-tender, No hepatosplenomegaly present, no masses and no bruits PALPATION: Yes Soft to palpation and Yes No hepatosplenomegaly present Extremity: COMMON NORMALS: capillary refill normal, no clubbing, cyanosis or edema and no calf tenderness Neuro: OTHER: Intubated, sedated Urinary Catheter Management^: Magana: Cath Placed During This Visit: yes Reason for Continuing Indwelling Catheter: Accurate Measurement of Urinary Output in Critically Ill Patients Urinary Catheter Date of Insertion: 12/02/19 Urinary Catheter Time of Insertion: 18:44 Data : 12/04/19 03:25 12/04/19 17:30 Micro: Microbiology 12/02/19 16:50 Blood Culture - Preliminary Blood Gram positive aayush 12/02/19 17:23 Gram Stain - Final Sputum - Endotracheal Tube Aspirate Sputum Culture - Preliminary Staphylococcus aureus 12/03/19 02:10 Blood Culture - Preliminary Blood NEGATIVE TO DATE A&P Assessment and plan (1) Hyponatremia: -Noted significant hyponatremia, sodium as low as 107. Has had prior hyponatremia though sodium levels have not been quite this low in the past. Noted significant and progressive generalized weakness, altered mental status per family -Nephrology consult appreciated, currently hypertonic saline is off, D5 normal saline has been stopped, serum sodium 120, nephro managing -Close monitoring of chemistry particularly sodium levels -Has Magana catheter in place, monitor urine output -CT scan does not show any intracranial abnormality -Noted significant BNP elevation (13, 137) though does not appear overtly fluid overloaded clinically. Noted possible pulmonary edema on chest x-ray. -last echo done in August shows an ejection fraction of 55% with grade 1 diastolic dysfunction -Currently on vent support -Review of medical record shows mention of possible adrenal insufficiency, review of med list does not include steroids -Hold Lasix for now -TSH 0.42, random cortisol 17.06, Status: Acute (2) Acute respiratory failure: -Secondary to pulmonary edema, pneumonia, with sepsis, concerns for possible pulmonary embolism given elevated d-dimer, concern for possible COVID-19 -Currently on vent support -Daily ABG, chest x-ray while on vent -Sedation with propofol, wean as tolerated, with fentanyl pushes -Close monitoring of respiratory status -Chest x-ray shows a moderate mixed interstitial alveolar opacities throughout both lungs, may represent pneumonia or pulmonary edema -Due to concern for possible pneumonia we will treat with vancomycin, Zosyn and Levaquin. Zosyn added secondary to concern for possible aspiration -Not oxygen dependent at baseline -IV steroids -Patient's d-dimer is elevated, cannot do a CT angiogram at this time as she is clinically unstable, started on therapeutic Lovenox, once stable will do a CT angiogram -Close monitoring of vital signs -Noted leukocytosis with white count of 15.3 trending down,, neutrophilic predominance, continue to trend -Rapid COVID-19 screen negative, influenza negative, PCR COVID-19 test pending -Associated sepsis as evidenced by leukocytosis, hypoxia, lactic acidosis, tachycardia Status: Acute Qualifiers: Respiratory failure complication: unspecified whether with hypoxia or hypercapnia Qualified Code(s): J96.00 - Acute respiratory failure, unspecified whether with hypoxia or hypercapnia (3) Acute encephalopathy: -Per has had gradually declining mental status for several months, worsening over the past few days which could be at least in part secondary to degree of hyponatremia -Currently on sedation Status: Acute (4) Hypertension: -Monitor vital signs -Currently low normal blood pressure so we will hold oral antihypertensives Status: Chronic Qualifiers: Hypertension type: essential hypertension Qualified Code(s): I10 - Essential (primary) hypertension (5) Insulin dependent type 2 diabetes mellitus: -Complicated by gastroparesis -Last A1c in July was 7.2 -Per family has had significant hyperglycemia -Hemoglobin A1c 6.7 today -Accu-Cheks, hypoglycemia precautions, ISS -Moderate dose sliding scale, Levemir 5 units twice daily Status: Chronic (6) Hyperlipidemia: -Resume statin Status: Chronic Qualifiers: Hyperlipidemia type: unspecified Qualified Code(s): E78.5 - Hyperlipidemia, unspecified (7) GERD (gastroesophageal reflux disease): -PPI IV Status: Chronic Qualifiers: Esophagitis presence: esophagitis presence not specified Qualified Code(s): K21.9 - Gastro-esophageal reflux disease without esophagitis (8) Hypothyroidism: -Resume levothyroxine Status: Chronic Qualifiers: Hypothyroidism type: unspecified Qualified Code(s): E03.9 - Hypothyroidism, unspecified (9) Diarrhea: -Has had prior history of C. difficile with prolonged treatment on oral vancomycin, has been off antibiotics since September -Has had ongoing diarrhea so we will check stool studies including C. difficile Status: Acute Qualifiers: Diarrhea type: unspecified type Qualified Code(s): R19.7 - Diarrhea, unspecified (10) Weakness: -Likely secondary to hyponatremia as well as some degree of physical deconditioning -Fall precautions -PT evaluation when appropriate Status: Acute (11) Hypokalemia: -Replace as needed -Continue to monitor Status: Acute (12) CKD (chronic kidney disease), stage II: -Renal function is currently stable -Continue to monitor renal function, avoid nephrotoxins, renally dose meds -Monitor urine output, has Magana catheter in place -Nephrology on board Status: Acute Additional A&P Information -Noted d-dimer elevation, will likely need CTA to rule out PE. Received therapeutic dose of Lovenox in ER -Chronic pain -Depression/anxiety, hold anxiolytics, antipsychotics and antidepressants -NPO while on vent. 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 [facility] Fwd Diagnoses Hyponatremia E87.1 Acute respiratory failure J96.00 Respiratory failure complication: unspecified whether with hypoxia or hypercapnia Acute encephalopathy G93.40 Hypertension I10 Hypertension type: essential hypertension Insulin dependent type 2 diabetes mellitus E11.9; Z79.4 Hyperlipidemia E78.5 Hyperlipidemia type: unspecified GERD (gastroesophageal reflux disease) K21.9 Esophagitis presence: esophagitis presence not specified Hypothyroidism E03.9 Hypothyroidism type: unspecified Diarrhea R19.7 Diarrhea type: unspecified type Weakness R53.1 Hypokalemia E87.6 CKD (chronic kidney disease), stage II N18.2
[2019-12-05] VITALS (31 sets, daily range): BP systolic 113–130; BP diastolic 57–79; PULSE 85–101; RESP 13–41; TEMP 36.6–36.8; O2SAT 95–100; BMI 28.8
[2019-12-05] MEDS: ipratropium-albuterol 3 mL Neb INHALATION ×4 (02:34→20:38)
[2019-12-05] MEDS: enoxaparin 80 mg/0.8 mL Syringe SUBCUT ×2 (03:24→15:06)
[2019-12-05] MEDS: fentaNYL 50 mcg/mL INJ 2mL 25 MCG IVP ×5 (03:24→23:56)
[2019-12-05] MEDS: propofol 1,000 MG/100 ML INJ 23.4 MG IV (03:53)
[2019-12-05 04:26] LABS: Basophils % 0.1 %; Hematocrit 24.5 % (37.0-47.0); Hemoglobin 8.2 g/dL (11.5-15.3); Lymphocytes # 1.2 10^3/uL (0.8-4.8); Lymphocytes % 8.1 %; Mean Corpuscular HGB Conc 33.5 g/dL (30.0-36.0); Mean Corpuscular Hemoglobin 27.9 pg (28.0-34.0); Mean Corpuscular Volume 83.3 fL (81-99); Mean Platelet Volume 8.9 fL (7.4-10.4); Monocytes # 1.5 10^3/uL (0.2-0.9); Monocytes % 9.8 %; Neutrophils # 11.69 10^3/uL (1.8-7.7); Neutrophils % 77.9 %; Nucleated Red Blood Cells % 0 %; Platelet Count 475 10^3/cmm (130-400); Red Blood Count 2.94 10^6/uL (4.1-5.3); Red Cell Distribution Width 14.3 % (12.1-15.1)
[2019-12-05 04:52] LABS: INR 1.01 (0.8-1.2)
[2019-12-05 05:11] LABS: NT Pro B Type Natriuretic Pept 3853 pg/mL (0-125); Procalcitonin 0.98 ng/mL (0-0.5)
[2019-12-05 05:14] LABS: ABG PCO2 42.5 mmHg (35-45); ABG PH Result 7.51 (7.35-7.45); Arterial Blood Gas Hematocrit 26.4 % (37-47); Base Excess ABG 10.2 mmol/L (-2.0-2.0); Blood Gas Allen Test Pos; Blood Gas Operator Identificat JB; Blood Gas Sample Site Radial, right; Blood Gas Sample Type Arterial; HCO3 ABG 34.1 mmol/L (22-26); Oxygen Device VENT
[2019-12-05 05:22] LABS: Alanine Aminotransferase 10 U/L (0-33); Albumin Level 2.3 g/dL (3.5-5.2); Alkaline Phosphatase 83 IU/L (35-105); Anion Gap 13.6 (5-19); Aspartate Amino Transferase 14 U/L (0-32); Blood Urea Nitrogen 9 mg/dL (8-23); Calcium 6.6 mg/dL (8.5-10.5); Carbon Dioxide 30 mmol/L (22-29); Chloride 85 mmol/L (98-107); Globulin 2.6 g/dL (1.3-4.6); Glomerular Filtration Rate 100.3 mL/min (90-130); Glucose 283 mg/dL (65-115); Magnesium 1.8 mg/dL (1.7-2.3); Osmolality Calculated 266 mOsm/kg (285-295); Phosphorus 2.6 mg/dL (2.5-4.5); Potassium 3.6 mmol/L (3.5-5.1); Sodium 125 mmol/L (136-145); Total Bilirubin 0.2 mg/dL (0.15-1.2); Total Protein 4.9 g/dL (6.6-8.7)
--- NOTE | 2019-12-05 07:00 | XR_ITS ---
WS: [id number] EXAM: AP CHEST: PORTABLE UPRIGHT DATE OF EXAM: 12/05/2019, 0534 hours COMPARISON: Chest x-rays over the last several days and 09/07/2019. HISTORY: Patient is 64 years old with respiratory failure. Follow-up pulmonary infiltrates. FINDINGS: The cardiac silhouette is stable and within normal limits. The mediastinal contours again demonstr ate an endotracheal tube ending just above the level of the michelle. Withdrawing by approximately 2 cm recommended. Left internal jugular central venous catheter ends in the SVC region. Enteric tube cros ses the thoracic esophagus. Calcified plaque in the aorta. The pulmonary vascularity is congested w ithout pulmonary edema. Right lung appears clear. There is developing patchy infiltrate within the le ft mid and lower chest. The lungs are clear of infiltrate. There is no effusion or pneumothorax. N o acute bony abnormality is seen. Neurostimulator leads and wires are again demonstrated over the mi d and lower thoracic spine region. XR/XR chest 1V portable [id number] IMPRESSION: Endotracheal tube needs withdrawn approximately 2 cm. New patchy infiltrate lef t lung. Continued surveillance recommended.
--- NOTE | 2019-12-05 07:32 | P.PN_ITS ---
Subjective Subjective: Interval history: remains intubated and sedated Medications: Reviewed: Yes Medication Review Details: Current Medications Acetaminophen (Tylenol) 650 mg VT Q6H PRN PRN Reason: Fever or mild pain Last Admin: 12/03/19 02:06 Dose: 650 mg Documented by: Albuterol/Ipratropium (Duoneb) 3 ml INHALATION Q6H.RESPIRATORY MICHELLE Last Admin: 12/05/19 02:34 Dose: 3 ml Documented by: Aspirin (Aspirin Chewable) 81 mg PO DAILY MICHELLE Last Admin: 12/04/19 10:28 Dose: 81 mg Documented by: Atorvastatin Calcium (Lipitor) 80 mg OG-TUBE QPM MICHELLE Last Admin: 12/04/19 18:36 Dose: 80 mg Documented by: Dextrose (D50w) 25 ml IVP ONCE PRN; Protocol PRN Reason: hypoglycemia protocol Dextrose (D50w) 50 ml IVP PRN PRN; Protocol PRN Reason: hypoglycemia protocol Enoxaparin Sodium (Lovenox) 80 mg SUBCUT Q12H MICHELLE Last Admin: 12/05/19 03:24 Dose: 80 mg Documented by: Fentanyl (Sublimaze) 25 mcg IVP Q2H PRN PRN Reason: SEVERE PAIN Last Admin: 12/05/19 03:24 Dose: 25 mcg Documented by: Glucagon (Glucagen) 1 mg IM ONCE PRN; Protocol PRN Reason: Adult Acute Hypoglycemia Prot. Piperacillin Sod/Tazobactam (Sod 3.375 gm/ Sodium Chloride) 50 mls @ 12.5 mls/hr IV Q8H MICHELLE; Protocol Last Admin: 12/04/19 22:43 Dose: 12.5 mls/hr Documented by: Levofloxacin/Dextrose (Levaquin-D5w) 750 mg in 150 mls @ 100 mls/hr IV Q24H MICHELLE; Protocol Last Admin: 12/04/19 20:12 Dose: 100 mls/hr Documented by: Propofol (Diprivan) 1,000 mg in 100 mls @ 0 mls/hr IV .Q0M MICHELLE; Protocol Last Admin: 12/05/19 03:53 Dose: 50 mcg/kg/min, 23.4 mls/hr Documented by: Midazolam HCl 100 mg/ Sodium (Chloride) 100 mls @ 0 mls/hr IV .Q0M MICHELLE; Protocol Last Titration: 12/03/19 06:34 Dose: 0 mg/hr, 0 mls/hr Documented by: Phenylephrine HCl 25 mg/ (Sodium Chloride) 252.5 mls @ 0 mls/hr IV .Q0M [facility]; Protocol Last Titration: 12/03/19 06:34 Dose: 0 mcg/min, 0 mls/hr Documented by: Norepinephrine Bitartrate 8 mg (/ Dextrose) 508 mls @ 0 mls/hr IV .Q0M [facility]; Protocol Vancomycin HCl 1,250 mg/ (Sodium Chloride) 250 mls @ 250 mls/hr IV Q18H [facility] Last Admin: 12/04/19 22:03 Dose: 250 mls/hr Documented by: Insulin Aspart (Novolog) 0 unit SUBCUT WM&BEDTIME [facility]; Protocol Last Admin: 12/04/19 20:26 Dose: 14 unit Documented by: Insulin Detemir (Levemir) 5 unit SUBCUT Q12H [facility] Last Admin: 12/04/19 22:33 Dose: 5 unit Documented by: Levothyroxine Sodium (Synthroid) 75 mcg OG-TUBE DAILY [facility] Last Admin: 12/04/19 09:08 Dose: 75 mcg Documented by: Methylprednisolone Sodium Succinate (Solu-Medrol) 40 mg IVP Q12H [facility] Last Admin: 12/04/19 21:45 Dose: 40 mg Documented by: Ondansetron HCl (Zofran) 4 mg IVP Q6H PRN PRN Reason: NAUSEA AND VOMITING Pantoprazole Sodium (Protonix) 40 mg IVP DAILY [facility] Last Admin: 12/04/19 08:57 Dose: 40 mg Documented by: Venlafaxine HCl (Effexor) 75 mg PO BID [facility] Last Admin: 12/04/19 18:36 Dose: 75 mg Documented by: Vitals/I&O/Wt Last Vital Signs Temp 98.2 F 12/05/19 04:00 Pulse 92 12/05/19 06:00 Resp 14 12/05/19 05:44 BP 125/76 12/05/19 06:00 Pulse Ox 100 12/05/19 06:00 12/04/19 12/05/19 12/05/19 22:59 06:59 14:59 Intake Total 194.302 / 1380.650 100 / 1480.650 Output Total 1000 / 2125 400 / 2525 Balance -805.698 / -744.350 -300 / -1044.350 Weight last 48 hrs Weight 73.845 kg Weight 73.845 kg Weight 73.709 kg Physical Exam Narrative: EXAM NARRATIVE: off pressors in ICU vent fi02 of 22%/ cmv/peep 8/ tv 400 sedated , intubted lungs clear heart reg, no rub abd soft, nt, nd, +BS ext trace edema neuro- sedated Urinary Catheter Management^: Magana: Cath Placed During This Visit: yes Reason for Continuing Indwelling Catheter: Accurate Measurement of Urinary Output in Critically Ill Patients Urinary Catheter Date of Insertion: 12/02/19 Urinary Catheter Time of Insertion: 18:44 Data : 12/05/19 03:40 12/05/19 03:40 Micro: Microbiology 12/02/19 16:50 Blood Culture - Preliminary Blood Gram positive aayush 12/02/19 17:23 Gram Stain - Final Sputum - Endotracheal Tube Aspirate Sputum Culture - Preliminary Staphylococcus aureus 12/03/19 02:10 Blood Culture - Preliminary Blood NEGATIVE TO DATE A&P Additional A&P Information 64 yr old female 1. COVID-19 PUI 2. leukocytosis improving 3. met alkalosis- await ur chloride -likely volume depletion 4. hyponatremia- improvedw/ fluids- prerenal -na correctred to a safe level- -cont glucose correction -labs daily -improved phos 5. bnp improving 6. check vanco trough- keep under 19 Attestations Medical Necessity Statement*: vdrf per hospitalist. thalia improved. 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
[2019-12-05 08:00] LABS: Glucose Point of Care 276 mg/dL (70-110)
[2019-12-05] MEDS: propofol 1,000 MG/100 ML INJ 18.7 MG IV (08:08)
[2019-12-05] MEDS: piperacillin-tazobactam 3.375 GM in sodium chloride 0.9% (plus) 50 ML IV ×2 (08:09→15:06)
[2019-12-05 08:23] LABS: Glucose Point of Care 311 mg/dL (70-110)
[2019-12-05] MEDS: sodium chloride 0.9% 1,000 ML 60 ML IV ×2 (08:47→23:10)
[2019-12-05] MEDS: levothyroxine 150 mcg Tablet 75 MCG OG-TUBE (08:47)
[2019-12-05] MEDS: venlafaxine 75 mg Tablet PO ×2 (08:47→17:57)
[2019-12-05] MEDS: aspirin 81 mg Chew Tablet PO (08:47)
[2019-12-05] MEDS: pantoprazole 40 mg SDV IVP (08:48)
[2019-12-05 11:27] LABS: Glucose Point of Care 197 mg/dL (70-110)
[2019-12-05] MEDS: propofol 1,000 MG/100 ML INJ 21.1 MG IV (12:34)
--- NOTE | 2019-12-05 12:39 | PC.RESP ---
Smoking Cessation information and a schedule of classes to patient.
--- NOTE | 2019-12-05 12:45 | PC.SOCIAL ---
[facility] Page 2 of [facility] explained to patient's spouse by phone and provided him the phone number to Rasheeda. Initialed, dated, and timed and placed in chart. Copy provided to patient's bedside.
--- NOTE | 2019-12-05 13:26 | PM.PN ---
Subjective Subjective: Interval history: remains intubated and sedated, currently on propofol, follows commands to hold hands, move legs, on trial of spontaneous breathuing currently. Leukocytosis trending down. urine output 1.8L. Na at 125 Medications: Reviewed: Yes Vitals/I&O/Wt Last Vital Signs Temp 97.8 F 12/05/19 12:00 Pulse 92 12/05/19 12:00 Resp 14 12/05/19 13:11 BP 115/79 12/05/19 12:00 Pulse Ox 98 12/05/19 12:00 12/04/19 12/05/19 12/05/19 22:59 06:59 14:59 Intake Total 194.302 / 1380.650 150 / 6420.023 9050.462 / 1776.462 Output Total 1000 / 2125 400 / 2525 400 / 400 Balance -805.698 / -744.350 -250 / -877.949 9205.462 / 1376.462 Weight last 48 hrs Weight 73.845 kg Weight 73.845 kg Weight 73.709 kg Physical Exam Narrative: EXAM NARRATIVE: GEN: intubated, follows simple commands, CVS: S1S2 N RS: CTA B/L anteriorly Abd: Soft, nt/nd , bs+ WIRE GALVANIZER: sedated Urinary Catheter Management^: Magana: Cath Placed During This Visit: yes Reason for Continuing Indwelling Catheter: Accurate Measurement of Urinary Output in Critically Ill Patients Urinary Catheter Date of Insertion: 12/02/19 Urinary Catheter Time of Insertion: 18:44 Data : 12/05/19 03:40 12/05/19 03:40 Micro: Microbiology 12/02/19 16:50 Blood Culture - Preliminary Blood Corynebacterium species Gram positive cocci 12/02/19 17:23 Gram Stain - Final Sputum - Endotracheal Tube Aspirate Sputum Culture - Final Staphylococcus aureus A&P Additional A&P Information 64-year-old lady with a complicated past medical history currently admitted on 12/01 after presenting from home with confusion, weakness, diarrhea. He was intubated upon arrival. She was repeatedly falling at home. She was noted to have elevated d-dimer. Labs upon arrival were with a leukocytosis of 23.7, d-dimer 1.6, initial sodium of 107 which is corrected with hypertonic saline. Rapid COVID antigen and PCR test were negative. # Significant hyponatremia Sodium 107 upon arrival, now has improved significantly. Had received hypertonic saline initially. Appreciate nephrology recommendations. CT of the head without any acute intracranial abnormalities. Past notes had detected possible adrenal insufficiency due to low levels of cortisol and abnormal ACTH suppression test. Her steroids were discontinued at some point. Currently patient is on methylprednisolone 40 mg IV every 12. Currently TSH is at 0.42, random cortisol at 17.06. #Acute respiratory failure requiring intubation and mechanical ventilatory support upon admission. Appears to be multifactorial. Patient may have suffered a low respiratory drive from the hyponatremia versus some degree of aspiration is also possible. Serial chest x-rays have shown patchy infiltrates in bilateral lungs. Due to elevated d-dimer and possibility of PE, patient is on full dose Lovenox at this present time. Alternate differentials include flash pulmonary edema given elevated BNP and bilateral fluffy exudates. Her serum creatinine is within normal limit, will go ahead and obtain a CTA of the chest to rule out PE. Additionally this will give us additional information regarding possible infiltrates in bilateral lungs. Check urine Legionella antigen as it may be associated with pneumonia and hyponatremia. Based on findings of CAT scan will attempt to de-escalate antibiotics. Sputum culture with mixed respiratory niru. Gram-positive cocci identified as MSSA. Will stop vancomycin. Blood culture 2 of 4 bottles from the same set reported as positive for corynebacterium gram-positive cocci. Per discussion with micro lab, appears to be CoNS, however very scant growth on cx plates therefore hard to acertain. May represnt contaminants. Repeat blood cx from 12/02 with no growth thus far. # Sepsis : as evidenced by leukocytosis, hypoxia, lactic acidosis, tachycardia Rapid COVID-19 screen negative, influenza negative, PCR COVID-19 test negative Check urine legionella Ag Possible sources include pneumonia, CT chest today Blood cx as above, likely contaminants check C diff PCR, one loose stool today, has h/o recurrent C diff #Acute encephalopathy: -Per has had gradually declining mental status for several months, worsening over the past few days which could be at least in part secondary to degree of hyponatremia -Currently on sedation, follows basic commands # Hypertension: -Monitor vital signs - hold oral antihypertensives for now # Insulin dependent type 2 diabetes mellitus: -Complicated by gastroparesis -Last A1c in July was 7.2 -Per family has had significant hyperglycemia -Hemoglobin A1c 6.7 today -Accu-Cheks, hypoglycemia precautions, ISS -Moderate dose sliding scale, Levemir 5 units twice daily #Hypokalemia: -Replace as needed -Continue to monitor Dispo: Will discuss with regarding SNF when nearing discharge. ppx: Lovenox full dose currently Attestations Medical Necessity Statement*: respiratory failure, currently intubated, CTA for PE today, weaning attempts to continue Coding Level of Care Code Acute Medical Collections Representative for Navid Simons
--- NOTE | 2019-12-05 13:44 | CT_ITS ---
WS: [id number] EXAM: CT PULMONARY ANGIOGRAM DATE OF EXAMINATION: 12/05/2019, 1625 hours COMPARISON: Chest x-ray from the same date. HISTORY: 64 years old with respiratory failure. High blood sugars. Ventilator dependent. Clinical working diag nosis of pulmonary embolus. TECHNIQUE: Transaxial computed tomography images obtained through the chest utilizing 70 mL of Omnipaque 350 IV contrast with images acquired in the pulmonary arterial phase. Images viewed in multiple windows with reconstructions. DLP: 626.[address] scans at [facility] use at least one of these dose optimization techniques: automat ed exposure control; mA and/or kV adjustment per patient size (includes targeted exams where dose is matched to clinical indication); or iterative reconstruction. FINDINGS: The pulmonary artery is well opacified. No definite findings of a pulmonary embolus are identified. T here are patchy areas of infiltrate bilaterally which are slightly groundglass in attenuation. Slight ly more prominent in the lung bases. No effusion. No pneumothorax. Endotracheal tube in size at the l evel the michelle. Withdrawing by approximately 2 cm recommended. Enteric tube crosses the thoracic eso phagus and ends in the stomach. No mediastinal mass or adenopathy is demonstrated. Heart size is cons idered slightly enlarged. Thoracic and upper abdominal aorta is normal in caliber. Axillary regions a re normal in appearance. Upper abdomen liver attenuation is normal. Clips in the gallbladder fossa co rrelate with cholecystectomy changes. Spleen, pancreas, adrenals and kidneys are without acute abnorm ality. Multilevel degenerative changes are seen in the spine. CT/CT angio chest PE protcl [id number] IMPRESSION: No findings of pulmonary embolus. Endotracheal tube needs to be withdrawn by approximately 2 cm. Groundglass attenuation infiltrates in both lungs. Please correlate for possibl e atypical infectious agents..
[2019-12-05 15:13] LABS: Osmolality Serum 238 mOsm/kg (278-305)
[2019-12-05 15:13] LABS: Osmolality Urine 253 mOsm/kg (50-1200)
[2019-12-05 15:55] LABS: Vancomycin Trough 18.6 ug/mL (10-15)
[2019-12-05] MEDS: propofol 1,000 MG/100 ML INJ 50 MG IV ×3 (16:04→23:09)
[2019-12-05] MEDS: iohexol 350 mg/mL 100 mL Btl IV (16:39)
[2019-12-05] MEDS: atorvastatin 40 mg Tablet 80 MG OG-TUBE (17:57)
[2019-12-05 18:26] LABS: Glucose Point of Care 258 mg/dL (70-110)
[2019-12-05] MEDS: levofloxacin-dextrose 5 % 750 MG/150 ML PREMIX 100 MG IV (20:36)
[2019-12-05] MEDS: enoxaparin 40 mg/0.4 mL Syringe SUBCUT (23:56)
[2019-12-06] VITALS (22 sets, daily range): BP systolic 121–139; BP diastolic 61–90; PULSE 86–102; RESP 13–34; TEMP 36.4–37.1; O2SAT 91–100
[2019-12-06] MEDS: ipratropium-albuterol 3 mL Neb INHALATION ×4 (02:00→20:19)
[2019-12-06] MEDS: fentaNYL 50 mcg/mL INJ 2mL 25 MCG IVP ×4 (03:23→21:10)
[2019-12-06] MEDS: propofol 1,000 MG/100 ML INJ 50 MG IV ×2 (03:23→07:21)
[2019-12-06 03:59] LABS: Basophils % 0.2 %; Eosinophils % 0.1 %; Hematocrit 24.1 % (37.0-47.0); Hemoglobin 8.2 g/dL (11.5-15.3); Lymphocytes # 1.5 10^3/uL (0.8-4.8); Lymphocytes % 11.7 %; Mean Corpuscular Hemoglobin 28.2 pg (28.0-34.0); Mean Corpuscular Volume 82.8 fL (81-99); Mean Platelet Volume 8.8 fL (7.4-10.4); Monocytes # 1.1 10^3/uL (0.2-0.9); Monocytes % 8.3 %; Neutrophils # 9.23 10^3/uL (1.8-7.7); Neutrophils % 71.3 %; Nucleated Red Blood Cells % 0.2 %; Platelet Count 496 10^3/cmm (130-400); Red Blood Count 2.91 10^6/uL (4.1-5.3); Red Cell Distribution Width 14.8 % (12.1-15.1); White Blood Count 12.9 10^3/uL (4.0-10.0)
[2019-12-06 04:33] LABS: INR 1.01 (0.8-1.2)
[2019-12-06 04:38] LABS: Slide Review Slide Review Perform
[2019-12-06 04:40] LABS: Alanine Aminotransferase 13 U/L (0-33); Albumin Level 2.4 g/dL (3.5-5.2); Alkaline Phosphatase 81 IU/L (35-105); Aspartate Amino Transferase 16 U/L (0-32); Blood Urea Nitrogen 8 mg/dL (8-23); Carbon Dioxide 30 mmol/L (22-29); Chloride 87 mmol/L (98-107); Globulin 2.6 g/dL (1.3-4.6); Glomerular Filtration Rate 100.3 mL/min (90-130); Glucose 299 mg/dL (65-115); Lactate Dehydrogenase 256 U/L (135-214); Lactic Sepsis W/Reflex 1.5 mmol/L (0.5-2.2); Magnesium 1.8 mg/dL (1.7-2.3); Osmolality Calculated 265 mOsm/kg (285-295); Sodium 124 mmol/L (136-145); Total Bilirubin 0.2 mg/dL (0.15-1.2)
[2019-12-06 04:57] LABS: ABG PCO2 44.8 mmHg (35-45); ABG PH Result 7.48 (7.35-7.45); Arterial Blood Gas Hematocrit 25.8 % (37-47); Blood Gas Allen Test Pos; Blood Gas Sample Site Radial, left; Blood Gas Sample Type Arterial; HCO3 ABG 33.4 mmol/L (22-26); Oxygen Device VENT; PO2 ABG 84.2 mmHg (80.0-100.0)
[2019-12-06 06:12] LABS: Glucose Point of Care 243 mg/dL (70-110)
--- NOTE | 2019-12-06 07:00 | P.PN_ITS ---
Subjective Subjective: Interval history: remains sedated, intubated, off pressers Medications: Reviewed: Yes Medication Review Details: Current Medications Acetaminophen (Tylenol) 650 mg FL Q6H PRN PRN Reason: Fever or mild pain Last Admin: 12/03/19 02:06 Dose: 650 mg Documented by: Albuterol/Ipratropium (Duoneb) 3 ml INHALATION Q6H.RESPIRATORY MICHELLE Last Admin: 12/06/19 02:00 Dose: 3 ml Documented by: Aspirin (Aspirin Chewable) 81 mg PO DAILY MICHELLE Last Admin: 12/05/19 08:47 Dose: 81 mg Documented by: Atorvastatin Calcium (Lipitor) 80 mg OG-TUBE QPM MICHELLE Last Admin: 12/05/19 17:57 Dose: 80 mg Documented by: Dextrose (D50w) 25 ml IVP ONCE PRN; Protocol PRN Reason: hypoglycemia protocol Dextrose (D50w) 50 ml IVP PRN PRN; Protocol PRN Reason: hypoglycemia protocol Enoxaparin Sodium (Lovenox) 40 mg SUBCUT Q24H MICHELLE Last Admin: 12/05/19 23:56 Dose: 40 mg Documented by: Fentanyl (Sublimaze) 25 mcg IVP Q2H PRN PRN Reason: SEVERE PAIN Last Admin: 12/06/19 03:23 Dose: 25 mcg Documented by: Glucagon (Glucagen) 1 mg IM ONCE PRN; Protocol PRN Reason: Adult Acute Hypoglycemia Prot. Piperacillin Sod/Tazobactam (Sod 3.375 gm/ Sodium Chloride) 50 mls @ 12.5 mls/hr IV Q8H MICHELLE; Protocol Last Admin: 12/05/19 15:06 Dose: 12.5 mls/hr Documented by: Levofloxacin/Dextrose (Levaquin-D5w) 750 mg in 150 mls @ 100 mls/hr IV Q24H MICHELLE; Protocol Last Admin: 12/05/19 20:36 Dose: 100 mls/hr Documented by: Propofol (Diprivan) 1,000 mg in 100 mls @ 0 mls/hr IV .Q0M MICHELLE; Protocol Last Admin: 12/06/19 03:23 Dose: 106.84 mcg/kg/min, 50 mls/hr Documented by: Norepinephrine Bitartrate 8 mg (/ Dextrose) 508 mls @ 0 mls/hr IV .Q0M MICHELLE; Protocol Sodium Chloride (Sodium Chloride 0.9%) 1,000 mls @ 60 mls/hr IV .[id number] [facility] Last Admin: 12/05/19 23:10 Dose: 60 mls/hr Documented by: Insulin Aspart (Novolog) 0 unit SUBCUT WM&BEDTIME [facility]; Protocol Last Admin: 12/05/19 20:50 Dose: 10 unit Documented by: Insulin Detemir (Levemir) 5 unit SUBCUT Q12H [facility] Last Admin: 12/05/19 20:37 Dose: 5 unit Documented by: Levothyroxine Sodium (Synthroid) 75 mcg OG-TUBE DAILY [facility] Last Admin: 12/05/19 08:47 Dose: 75 mcg Documented by: Ondansetron HCl (Zofran) 4 mg IVP Q6H PRN PRN Reason: NAUSEA AND VOMITING Pantoprazole Sodium (Protonix) 40 mg IVP DAILY [facility] Last Admin: 12/05/19 08:48 Dose: 40 mg Documented by: Vancomycin HCl (Vancocin) 250 mg XX QID [facility] Venlafaxine HCl (Effexor) 75 mg PO BID [facility] Last Admin: 12/05/19 17:57 Dose: 75 mg Documented by: Vitals/I&O/Wt Last Vital Signs Temp 98.3 F 12/06/19 00:00 Pulse 91 12/06/19 06:00 Resp 13 12/06/19 05:54 BP 138/77 12/06/19 06:00 Pulse Ox 95 12/06/19 06:00 12/05/19 12/06/19 12/06/19 22:59 06:59 14:59 Intake Total 783.000 / 2609.462 963 / 3572.462 Output Total 950 / 1350 800 / 2150 Balance -167.000 / 1259.462 163 / 1422.462 Weight last 48 hrs Weight 72.121 kg Weight 73.845 kg Physical Exam Narrative: EXAM NARRATIVE: off pressors in ICU vent - rr 14, fi02 of 22%/ cmv/peep 8/ tv 400 sedated , intubated, more alert lungs clear, except for dull bases heart reg, no rub abd soft, nt, nd, +BS ext trace edema neuro- sedated, more awake Urinary Catheter Management^: Magana: Cath Placed During This Visit: yes Reason for Continuing Indwelling Catheter: Accurate Measurement of Urinary Output in Critically Ill Patients Urinary Catheter Date of Insertion: 12/02/19 Urinary Catheter Time of Insertion: 18:44 Data : 12/06/19 03:25 12/06/19 03:25 Micro: Microbiology 12/05/19 18:12 Legionella Urinary Antigen - Final Urine Catheterized 12/05/19 17:10 C.difficile Toxin B Gene (PCR) - Final Stool Routine Collection 12/02/19 16:50 Blood Culture - Preliminary Blood Corynebacterium species Gram positive cocci 12/02/19 17:23 Gram Stain - Final Sputum - Endotracheal Tube Aspirate Sputum Culture - Final Staphylococcus aureus A&P Additional A&P Information 64 yr old female 1. VDRF- wean per pulm 2. leukocytosis improving 3. met alkalosis- await ur chloride -likely volume depletion -improving 4. hyponatremia- improved w/ fluids- prerenal -na correctred to a safe level- -pt on steroids -normal tsh -cont glucose correction -labs daily -cortisol 17- normal -improved phos -d/c ivf, add salt tabs. pna can contribuite to hyponatremia -lasix if needed and monitor chem 7 bid 5. ca improving normal phosp 6. check vanco trough- keep under 19 7. IDDM 8. bnp improved to [id number] Attestations Medical Necessity Statement*: vdrf, pna, hyponatremia Time Spent in Patient Care: 16 - 35 minutes Coding Level of Care Code Acute Agency Sales Development Associate for Navid Simons
[2019-12-06] MEDS: FUROsemide 10 mg/mL SDV 2mL 20 MG IVP (07:29)
[2019-12-06 08:01] LABS: Glucose Point of Care 321 mg/dL (70-110)
[2019-12-06] MEDS: sodium chloride 1 gm Tablet PO ×3 (08:16→21:10)
[2019-12-06] MEDS: levothyroxine 150 mcg Tablet 75 MCG OG-TUBE (08:16)
[2019-12-06] MEDS: venlafaxine 75 mg Tablet PO ×2 (08:17→18:08)
[2019-12-06] MEDS: aspirin 81 mg Chew Tablet PO (08:17)
[2019-12-06] MEDS: pantoprazole 40 mg SDV IVP (08:17)
--- NOTE | 2019-12-06 10:12 | PC.RESP ---
extubated pt extubated and placed on 3lpm nc tolerated well
[2019-12-06 12:28] LABS: Glucose Point of Care 80 mg/dL (70-110)
[2019-12-06 12:28] LABS: Glucose Point of Care 85 mg/dL (70-110)
[2019-12-06 16:34] LABS: Anion Gap 10.6 (5-19); Blood Urea Nitrogen 7 mg/dL (8-23); Calcium 7.8 mg/dL (8.5-10.5); Carbon Dioxide 32 mmol/L (22-29); Chloride 91 mmol/L (98-107); Glomerular Filtration Rate 100.3 mL/min (90-130); Glucose 76 mg/dL (65-115); Osmolality Calculated 265 mOsm/kg (285-295); Potassium 3.6 mmol/L (3.5-5.1); Sodium 130 mmol/L (136-145)
[2019-12-06 16:38] LABS: Glucose Point of Care 103 mg/dL (70-110)
--- NOTE | 2019-12-06 18:07 | PM.PN ---
Subjective Subjective: Interval history: seen and examined at 8:30 am when still intubated, subsequently successfully extubated during the day to nasal canula. c diff PCR returned potiive overnight after which po vancomycin started Medications: Reviewed: Yes Vitals/I&O/Wt Last Vital Signs Temp 97.6 F 12/06/19 12:00 Pulse 102 H 12/06/19 16:00 Resp 26 H 12/06/19 16:00 BP 125/65 12/06/19 16:00 Pulse Ox 92 12/06/19 16:00 12/06/19 12/06/19 12/06/19 06:59 14:59 22:59 Intake Total 1063 / 3672.462 150 / 150 Output Total 800 / 2150 175 / 175 Balance 263 / 1522.462 -25 / -25 Weight last 48 hrs Weight 72.121 kg Weight 73.845 kg Physical Exam Narrative: EXAM NARRATIVE: GEN: Awake, alert and oriented, no acute distress post extubation CVS: S1S2 N RS: CTA B/L except crackles over RUL Abd: Soft, nt/nd , bs+ [employer] ADVISOR: no focal neuro deficits Urinary Catheter Management^: Magana: Cath Placed During This Visit: yes Reason for Continuing Indwelling Catheter: Accurate Measurement of Urinary Output in Critically Ill Patients Urinary Catheter Date of Insertion: 12/02/19 Urinary Catheter Time of Insertion: 18:44 Data : 12/06/19 03:25 12/06/19 15:55 Micro: Microbiology 12/05/19 17:10 Enteric Pathogens (PCR) - Final Stool Routine Collection C.difficile Toxin B Gene (PCR) - Final 12/02/19 16:50 Blood Culture - Preliminary Blood Corynebacterium species Coagulase negativ staphylococc 12/05/19 18:12 Legionella Urinary Antigen - Final Urine Catheterized A&P Additional A&P Information 64-year-old lady with a complicated past medical history currently admitted on 12/01 after presenting from home with confusion, weakness, diarrhea. He was intubated upon arrival. She was repeatedly falling at home. She was noted to have elevated d-dimer. Labs upon arrival were with a leukocytosis of 23.7, d-dimer 1.6, initial sodium of 107 which is corrected with hypertonic saline. Rapid COVID antigen and PCR test were negative. # Significant hyponatremia Sodium 107 upon arrival, now has improved significantly. Had received hypertonic saline initially. Appreciate nephrology recommendations. CT of the head without any acute intracranial abnormalities. Past notes had detected possible adrenal insufficiency due to low levels of cortisol and abnormal ACTH suppression test. Her steroids were discontinued at some point. Currently patient is on methylprednisolone 40 mg IV every 12. Currently TSH is at 0.42, random cortisol at 17.06. #Acute respiratory failure requiring intubation and mechanical ventilatory support upon admission. Appears to be multifactorial. Patient may have suffered a low respiratory drive from the hyponatremia versus some degree of aspiration is also possible. Serial chest x-rays have shown patchy infiltrates in bilateral lungs. CTA yesetrday with B/L vague GGOS, likely to represent fluid given overall clinical picture. No PE. Empric a/c discontinued today. Alternate differentials include flash pulmonary edema given elevated BNP and bilateral exudates. Stop Zosyn Blood culture 2 of 4 bottles from the same set reported as positive for corynebacterium and CoNs, represnt contaminants. Repeat blood cx from 12/02 with no growth thus far. # Sepsis : as evidenced by leukocytosis, hypoxia, lactic acidosis, tachycardia Rapid COVID-19 screen negative, influenza negative, PCR COVID-19 test negative urine legionella Ag negative C diff PCR+, start po vancomycin, d/c zosyn, continue levaquin for now #Acute encephalopathy: -Per has had gradually declining mental status for several months, worsening over the past few days which could be at least in part secondary to degree of hyponatremia -Currently on sedation, follows basic commands # Hypertension: -Monitor vital signs - hold oral antihypertensives for now # Insulin dependent type 2 diabetes mellitus: -Complicated by gastroparesis -Last A1c in July was 7.2 -Per family has had significant hyperglycemia -Hemoglobin A1c 67 -Accu-Cheks, hypoglycemia precautions, ISS -Moderate dose sliding scale, Levemir 5 units twice daily #Hypokalemia: -Replace as needed -Continue to monitor Dispo: Will discuss with regarding SNF when nearing discharge. ppx: Lovenox full dose currently Attestations Medical Necessity Statement*: extubated today, closely monitor respiratory status Coding Level of Care Code Acute Proof Tester for Navid Simons
[2019-12-06] MEDS: atorvastatin 40 mg Tablet 80 MG OG-TUBE (18:08)
[2019-12-06 20:47] LABS: Glucose Point of Care 109 mg/dL (70-110)
[2019-12-06] MEDS: levofloxacin-dextrose 5 % 750 MG/150 ML PREMIX 100 MG IV (21:10)
[2019-12-06] MEDS: sodium chloride 0.9% 1,000 ML 60 ML IV (21:21)
[2019-12-06 22:02] LABS: Amphetamine negative; Barbiturates negative; Benzodiazepines negative; Cocaine Metabolites negative; Marijuana(Tetrahydrocannabino) negative; Opiates negative; PCP (Phencyclidine) negative
[2019-12-06] MEDS: enoxaparin 40 mg/0.4 mL Syringe SUBCUT (22:44)
--- NOTE | 2019-12-06 23:17 | PC.NURSE ---
ANXIETY Patient appears anxious. Patient has been repositioned, given pain medication and asked if she had any other needs. Patient continues to moan and cry out. Physician notified and awaiting further orders.
[2019-12-06] MEDS: LORazepam 2 mg/mL INJ 1 mL 1 MG IVP (23:34)
[2019-12-07] VITALS (24 sets, daily range): BP systolic 134–162; BP diastolic 68–121; PULSE 86–116; RESP 12–36; TEMP 36.4–37.2; O2SAT 90–99
[2019-12-07] MEDS: ipratropium-albuterol 3 mL Neb INHALATION ×4 (03:00→20:06)
[2019-12-07] MEDS: ziprasidone 20 mg/mL SDV IM (03:17)
--- NOTE | 2019-12-07 03:24 | PC.NURSE ---
ANXIOUS Patient given 1 MG IV Ativan at 2334. Patient continued to appear anxious and restless. Patient was yelling out for nurse and moaning. Physician notified again and put in one time order for 20 MG ziprasidone IM. Prior to administration patient bathed and repositioned.
[2019-12-07 04:24] LABS: Hematocrit 25.3 % (37.0-47.0); Hemoglobin 8.3 g/dL (11.5-15.3); Mean Corpuscular HGB Conc 32.8 g/dL (30.0-36.0); Mean Corpuscular Hemoglobin 27.9 pg (28.0-34.0); Mean Corpuscular Volume 85.2 fL (81-99); Mean Platelet Volume 8.4 fL (7.4-10.4); Platelet Count 462 10^3/cmm (130-400); Red Blood Count 2.97 10^6/uL (4.1-5.3); Red Cell Distribution Width 14.8 % (12.1-15.1); White Blood Count 14.3 10^3/uL (4.0-10.0)
[2019-12-07 04:37] LABS: INR 0.96 (0.8-1.2)
[2019-12-07 04:48] LABS: Slide Review Slide Review Perform
[2019-12-07 04:50] LABS: Absolute Neutrophil 10.3 10^3/cmm (1.4-6.5); Absolute Segmented Neutrophil 9.9 10/cmm (1.6-7.1); Band Neutrophils Absolute 0.4 10^3/cmm (0.0-1.2); Lymphocytes 23 %; Monocytes Absolute 0.3 10^3/cmm (0.1-0.6); Platelet Estimate Increased (Normal); Segmented Neutrophils 69 %; Total Cells Counted 100 (0-100)
[2019-12-07 04:51] LABS: Phosphorus 3.8 mg/dL (2.5-4.5)
[2019-12-07 04:56] LABS: Alanine Aminotransferase 14 U/L (0-33); Albumin Level 2.3 g/dL (3.5-5.2); Alkaline Phosphatase 73 IU/L (35-105); Anion Gap 12.3 (5-19); Aspartate Amino Transferase 20 U/L (0-32); Blood Urea Nitrogen 5 mg/dL (8-23); Calcium 7.7 mg/dL (8.5-10.5); Carbon Dioxide 31 mmol/L (22-29); Chloride 94 mmol/L (98-107); Globulin 2.6 g/dL (1.3-4.6); Glomerular Filtration Rate 100.3 mL/min (90-130); Glucose 62 mg/dL (65-115); Lactic Sepsis W/Reflex 0.6 mmol/L (0.5-2.2); Magnesium 1.5 mg/dL (1.7-2.3); Osmolality Calculated 272 mOsm/kg (285-295); Potassium 3.3 mmol/L (3.5-5.1); Sodium 134 mmol/L (136-145); Total Bilirubin 0.2 mg/dL (0.15-1.2); Total Protein 4.9 g/dL (6.6-8.7)
--- NOTE | 2019-12-07 06:05 | PC.NURSE ---
SHIFT SUMMARY Patient has had restless night. Patient has been given 1 mg IV ativan and 20 mg IM geodon for restlessness. Patient was not sleeping and was calling out for most of night at beginning of shift. After dose of geodon, patient has been soundly sleeping since. 1725 mL urine output this shift. 150 mL rectal tube output. Speech re-evaluation planned for this AM. Patient was bathed this shift with complete linen change. Physician notified of decreasing potassium and magnesium levels.
--- NOTE | 2019-12-07 06:32 | PM.PN ---
Subjective Subjective: Interval history: extubated. awakens, alert. still having difficulty swallowing. confused Medications: Reviewed: Yes Medication Review Details: Current Medications Acetaminophen (Tylenol) 650 mg MA Q6H PRN PRN Reason: Fever or mild pain Last Admin: 12/03/19 02:06 Dose: 650 mg Documented by: Albuterol/Ipratropium (Duoneb) 3 ml INHALATION Q6H.RESPIRATORY MICHELLE Last Admin: 12/07/19 03:00 Dose: 3 ml Documented by: Aspirin (Aspirin Chewable) 81 mg PO DAILY MICHELLE Last Admin: 12/06/19 08:17 Dose: 81 mg Documented by: Atorvastatin Calcium (Lipitor) 80 mg OG-TUBE QPM MICHELLE Last Admin: 12/06/19 18:08 Dose: 80 mg Documented by: Dextrose (D50w) 25 ml IVP ONCE PRN; Protocol PRN Reason: hypoglycemia protocol Dextrose (D50w) 50 ml IVP PRN PRN; Protocol PRN Reason: hypoglycemia protocol Enoxaparin Sodium (Lovenox) 40 mg SUBCUT Q24H MICHELLE Last Admin: 12/06/19 22:44 Dose: 40 mg Documented by: Glucagon (Glucagen) 1 mg IM ONCE PRN; Protocol PRN Reason: Adult Acute Hypoglycemia Prot. Levofloxacin/Dextrose (Levaquin-D5w) 750 mg in 150 mls @ 100 mls/hr IV Q24H MICHELLE; Protocol Last Admin: 12/06/19 21:10 Dose: 100 mls/hr Documented by: Propofol (Diprivan) 1,000 mg in 100 mls @ 0 mls/hr IV .Q0M MICHELLE; Protocol Last Admin: 12/06/19 07:21 Dose: 106.84 mcg/kg/min, 50 mls/hr Documented by: Norepinephrine Bitartrate 8 mg (/ Dextrose) 508 mls @ 0 mls/hr IV .Q0M MICHELLE; Protocol Insulin Aspart (Novolog) 0 unit SUBCUT WM&BEDTIME MICHELLE; Protocol Last Admin: 12/06/19 20:46 Dose: Not Given Documented by: Insulin Detemir (Levemir) 5 unit SUBCUT Q12H MICHELLE Last Admin: 12/06/19 21:10 Dose: 5 unit Documented by: Levothyroxine Sodium (Synthroid) 75 mcg OG-TUBE DAILY MICHELLE Last Admin: 12/06/19 08:16 Dose: 75 mcg Documented by: Ondansetron HCl (Zofran) 4 mg IVP Q6H PRN PRN Reason: NAUSEA AND VOMITING Pantoprazole Sodium (Protonix) 40 mg IVP DAILY [facility] Last Admin: 12/06/19 08:17 Dose: 40 mg Documented by: Vancomycin HCl (Vancocin) 250 mg XX QID [facility] Last Admin: 12/06/19 21:09 Dose: 250 mg Documented by: Venlafaxine HCl (Effexor) 75 mg PO BID [facility] Last Admin: 12/06/19 18:08 Dose: 75 mg Documented by: Vitals/I&O/Wt Last Vital Signs Temp 97.7 F 12/06/19 20:24 Pulse 104 H 12/07/19 06:00 Resp 22 H 12/07/19 06:00 BP 157/96 12/07/19 06:00 Pulse Ox 94 12/07/19 06:00 12/06/19 12/06/19 12/07/19 14:59 22:59 06:59 Intake Total 150 / 150 1000 / 1150 Output Total 175 / 175 1899 / 2074 Balance -25 / -25 1000 / 975 -1900 / -925 Weight last 48 hrs Weight 72.892 kg Weight 72.121 kg Physical Exam Narrative: EXAM NARRATIVE: off pressors in ICU. extubated, comfortable sleepy, responsive heent- nc/at, eomi, anicteric lungs clear, except for dull bases heart reg, no rub abd soft, nt, nd, +BS ext no edema neuro- responsive, more awake Urinary Catheter Management^: Magana: Cath Placed During This Visit: yes Reason for Continuing Indwelling Catheter: Accurate Measurement of Urinary Output in Critically Ill Patients Urinary Catheter Date of Insertion: 12/02/19 Urinary Catheter Time of Insertion: 18:44 Data : 12/07/19 03:52 12/07/19 03:52 Micro: Microbiology 12/05/19 17:10 Enteric Pathogens (PCR) - Final Stool Routine Collection C.difficile Toxin B Gene (PCR) - Final 12/02/19 16:50 Blood Culture - Preliminary Blood Corynebacterium species Coagulase negativ staphylococc 12/05/19 18:12 Legionella Urinary Antigen - Final Urine Catheterized A&P Additional A&P Information 64 yr old female 1. VDRF- wean per pulm 2. leukocytosis remains 3. met alkalosis- -likely volume depletion -improving 4. hyponatremia- improved w/ fluids- prerenal -na correctred to a normal level -pt on steroids -normal tsh -cont glucose correction -cortisol 17- normal -improved phos -d/c ivf, d/c salt tabs. pna can contribuite to hyponatremia -hopefully should not need lasix -monitor chemistries 5. ca improving normal phosp 6. replete k and mag 7. check vanco trough- keep under 19 8. IDDM 9. renal will check labs and see as needed discussed w/ EXPRESS MANAGER Attestations Medical Necessity Statement*: per hospitalist Time Spent in Patient Care: 16 - 35 minutes Coding Level of Care Code Acute Senior Instrumentation Engineer for Padminig Kristyn
--- NOTE | 2019-12-07 07:44 | PC.NURSE ---
Dr Floyd notified to clarify physician orders. Dr Cespedes and Dr Murdock both ordered Magnesium and Potassim repalcments for pt. Different amounts and routes. To give Magnesium 1gm IV and Potassium 40mEq PO.
[2019-12-07] MEDS: potassium chloride ER 10 mEq Tablet 40 MEQ PO (07:57)
[2019-12-07 08:35] LABS: Glucose Point of Care 74 mg/dL (70-110)
[2019-12-07] MEDS: levothyroxine 150 mcg Tablet 75 MCG OG-TUBE (09:46)
[2019-12-07] MEDS: pantoprazole 40 mg SDV IVP (09:46)
[2019-12-07] MEDS: aspirin 81 mg Chew Tablet PO (09:47)
[2019-12-07] MEDS: venlafaxine 75 mg Tablet PO ×2 (09:47→17:46)
--- NOTE | 2019-12-07 10:30 | PC.SOCIAL ---
IMM Updated Updated pt on Pg 2 IMM. Provided pt a copy. No questions voiced. Signed, dated, & timed copy in chart.
[2019-12-07 12:09] LABS: Glucose Point of Care 110 mg/dL (70-110)
[2019-12-07] MEDS: acetaminophen 650 mg Supp PR (14:22)
--- NOTE | 2019-12-07 14:30 | PC.NURSE ---
Cental line care: Sorba view contour shield dressing applied at dressing change. Hand hygiene and sterile technique observed. Hubs changes too. Pt tolerated.
--- NOTE | 2019-12-07 14:53 | PM.PN ---
Subjective Subjective: Interval history: Ms. Read was successfully extubated yesterday on 915. WBC count today is at 14.3. Sodium is low. Potassium at 3.3. Calcium 7.7. Mag 1.5. All of these have been repleted appropriately. Continues to be slightly tachycardic with heart rate between 10 7-1 1 6. Blood pressure maintained at 155. She is not really participating with PT OT. She is alert and awake, however says she feels too tired to participate. Her blood sugar this morning on labs were noted to be 62, subsequently 110. She failed a swallow evaluation today. Medications: Reviewed: Yes Vitals/I&O/Wt Last Vital Signs Temp 98.3 F 12/07/19 08:00 Pulse 116 H 12/07/19 12:00 Resp 18 12/07/19 12:00 BP 155/102 12/07/19 12:00 Pulse Ox 96 12/07/19 12:00 12/06/19 12/07/19 12/07/19 22:59 06:59 14:59 Intake Total 1150 / 1300 Output Total 0 / 5 Balance 1150 / 1125 -1900 / -775 Weight last 48 hrs Weight 72.892 kg Weight 72.121 kg Physical Exam Narrative: EXAM NARRATIVE: GEN: Awake, alert and oriented, lying in bed, no acute distress. 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 Urinary Catheter Management^: Magana: Cath Placed During This Visit: yes Reason for Continuing Indwelling Catheter: Accurate Measurement of Urinary Output in Critically Ill Patients Urinary Catheter Date of Insertion: 12/02/19 Urinary Catheter Time of Insertion: 18:44 Data : 12/07/19 03:52 12/07/19 03:52 Micro: Microbiology 12/05/19 17:10 Enteric Pathogens (PCR) - Final Stool Routine Collection C.difficile Toxin B Gene (PCR) - Final 12/02/19 16:50 Blood Culture - Preliminary Blood Corynebacterium species Coagulase negativ staphylococc A&P Additional A&P Information 64-year-old lady with a complicated past medical history currently admitted on 12/01 after presenting from home with confusion, weakness, diarrhea. He was intubated upon arrival. She was repeatedly falling at home. She was noted to have elevated d-dimer. Labs upon arrival were with a leukocytosis of 23.7, d-dimer 1.6, initial sodium of 107 which is corrected with hypertonic saline. Rapid COVID antigen and PCR test were negative. # Significant hyponatremia Sodium 107 upon arrival, now has improved significantly. Now normal at 134. Had received hypertonic saline initially. Appreciate nephrology recommendations. CT of the head without any acute intracranial abnormalities. Past notes had detected possible adrenal insufficiency due to low levels of cortisol and abnormal ACTH suppression test. Her steroids were discontinued at some point. Completed methylprednisolone taper down from every 6 hours to every 12 hours on 12/05. Currently TSH is at 0.42, random cortisol at 17.06. #Acute respiratory failure requiring intubation and mechanical ventilatory support upon admission. Appears to be multifactorial. Patient may have suffered a low respiratory drive from the hyponatremia versus some degree of aspiration is also possible. Serial chest x-rays have shown patchy infiltrates in bilateral lungs. CTA with B/L nonspecific GGOS, likely to represent fluid given overall clinical picture. No PE Alternate differentials include flash pulmonary edema given elevated BNP and bilateral exudates. Stop Zosyn. Continue Levaquin antibiotic day 6 today Blood culture 2 of 4 bottles from the same set reported as positive for corynebacterium and CoNs, represnt contaminants. Repeat blood cx from 12/02 with no growth thus far. # Sepsis : as evidenced by leukocytosis, hypoxia, lactic acidosis, tachycardia Rapid COVID-19 screen negative, influenza negative, PCR COVID-19 test negative urine legionella Ag negative C diff PCR+, started po vancomycin, d/c zosyn, continue levaquin for now for a total 7-day course. #Acute encephalopathy: -Per has had gradually declining mental status for several months, worsening over the past few days which could be at least in part secondary to degree of hyponatremia -Currently on sedation, follows basic commands # Hypertension: -Monitor vital signs --Systolic blood pressure ranging between 150s to 160s. Start amlodipine 5 mg # Insulin dependent type 2 diabetes mellitus: -Complicated by gastroparesis -This morning blood sugar was at 62, hold insulin Levemir and sliding scale for now as patient is not really having much p.o. intake and hypoglycemia on morning labs. #Hypokalemia: -Replace as needed -Continue to monitor #Hypomagnesemia replaced with IV. Dispo: SNF when nearing discharge due to significant deconditioning ppx: Lovenox Attestations Medical Necessity Statement*: Extubated yesterday, continue to monitor respiratory function, needs daily swallow evaluation Coding Level of Care Code Acute Medical Receptionist Medical Assistant for Navid Simons
[2019-12-07] MEDS: atorvastatin 40 mg Tablet 80 MG OG-TUBE (17:46)
--- NOTE | 2019-12-07 19:00 | PC.NURSE ---
Shift summary: Pt had stable VS. She c/o of being thirsty and hungry. NO diet orders yet as pt failed swallow eval today. She remains on Vancomycin orally for C-diff. SHe is on 2lpm/NC. Her came for visiting hours, brought her dentures. No insulin coverage at blood sugar checks needed. She had 1450 clear yellow urine. Rectal tube remains , total of 200ml on bag, just 50ml for this shift. Report given to DEBRA Zaman. Bed swap as her bed does not raise to 90 degrees.
[2019-12-07] MEDS: enoxaparin 40 mg/0.4 mL Syringe SUBCUT (22:12)
[2019-12-07] MEDS: trazodone 50 mg Tablet PO (22:12)
[2019-12-07 23:13] LABS: Glucose Point of Care 68 mg/dL (70-110)
[2019-12-07] MEDS: dextrose 50% syringe 50 mL 25 ML IVP (23:26)
[2019-12-07 23:55] LABS: Glucose Point of Care 129 mg/dL (70-110)
[2019-12-08] VITALS (27 sets, daily range): BP systolic 138–165; BP diastolic 66–111; PULSE 94–104; RESP 14–33; TEMP 36.6–37.6; O2SAT 88–97
--- NOTE | 2019-12-08 00:08 | PC.NURSE ---
BLOOD GLUCOSE Patients blood glucose was checked with a reading of 68. Physician notified and per hypoglycemic protocol, patient was given 1/2 amp of dextrose. Upon 15 minute check, patients blood sugar was 129. Will recheck at 1230.
--- NOTE | 2019-12-08 00:37 | PC.NURSE ---
MENTAL STATUS/SLEEP Patient was crying out for her . Nurse reminded patient that she was in the hospital. Patient then stated that she needed to go to the bathroom and was reminded that she had the catheter and rectal tube. Patient then stated that she would try to go to sleep. Early in night patient was requesting something for sleep. Dr. Murdock put in one time order for trazodone 50 MG PO once. Patient has been resting since crying out.
[2019-12-08] MEDS: ipratropium-albuterol 3 mL Neb INHALATION ×4 (02:31→20:26)
[2019-12-08 04:33] LABS: Alanine Aminotransferase 13 U/L (0-33); Albumin Level 2.4 g/dL (3.5-5.2); Alkaline Phosphatase 74 IU/L (35-105); Anion Gap 14.3 (5-19); Aspartate Amino Transferase 20 U/L (0-32); Blood Urea Nitrogen 4 mg/dL (8-23); Carbon Dioxide 29 mmol/L (22-29); Chloride 92 mmol/L (98-107); Globulin 2.7 g/dL (1.3-4.6); Glomerular Filtration Rate 100.3 mL/min (90-130); Glucose 92 mg/dL (65-115); Magnesium 1.4 mg/dL (1.7-2.3); Osmolality Calculated 271 mOsm/kg (285-295); Phosphorus 5.3 mg/dL (2.5-4.5); Potassium 3.3 mmol/L (3.5-5.1); Sodium 132 mmol/L (136-145); Total Bilirubin 0.3 mg/dL (0.15-1.2); Total Protein 5.1 g/dL (6.6-8.7)
--- NOTE | 2019-12-08 06:24 | PC.NURSE ---
SHIFT SUMMARY Patient had restless night and requested sleep medication . Nurse requested sleep medication for patient and physician put in order for trazodone. 1350 mL urine output this shift. 150 mL fecal output from rectal tube. See blood glucose note. Patients magnesium level had dropped with morning labs, physician notified and patient got 1 mg magnesium sulfate replacement. Patient oxygen at 95% on room air with no issues with vital signs this shift.
--- NOTE | 2019-12-08 08:19 | PM.PN ---
Subjective Subjective: Interval history: Ms. Read was successfully extubated yesterday on 915. WBC count today is at 14.3. Sodium is low. Potassium at 3.3. Calcium 7.7. Mag 1.5. All of these have been repleted appropriately. Continues to be slightly tachycardic with heart rate between 10 7-1 1 6. Blood pressure maintained at 155. She is not really participating with PT OT. She is alert and awake, however says she feels too tired to participate. Her blood sugar this morning on labs were noted to be 62, subsequently 110. She failed a swallow evaluation today. Vitals/I&O/Wt Last Vital Signs Temp 99 F 12/07/19 18:00 Pulse 96 12/08/19 07:27 Resp 18 12/08/19 07:27 BP 158/98 12/08/19 06:00 Pulse Ox 94 12/08/19 07:27 12/07/19 12/08/19 12/08/19 22:59 06:59 14:59 Intake Total 730 / 730 500 / 1230 Output Total 1500 / 1500 1500 / 3000 Balance -770 / -770 -1000 / -1770 Weight last 48 hrs Weight 73.028 kg Weight 72.892 kg Physical Exam Narrative: EXAM NARRATIVE: GEN: Awake, alert and oriented, lying in bed, no acute distress. CVS: S1S2 N RS: CTA B/L Abd: Soft, nt/nd , bs+ ROOFING APPLICATOR: no focal neuro deficits Urinary Catheter Management^: Magana: Cath Placed During This Visit: yes Reason for Continuing Indwelling Catheter: Accurate Measurement of Urinary Output in Critically Ill Patients Urinary Catheter Date of Insertion: 12/02/19 Urinary Catheter Time of Insertion: 18:44 Data : 12/07/19 03:52 12/08/19 03:40 Micro: Microbiology 12/03/19 02:10 Blood Culture - Final Blood NO GROWTH AFTER 5 DAYS A&P Additional A&P Information 64-year-old lady with a complicated past medical history currently admitted on 12/01 after presenting from home with confusion, weakness, diarrhea. He was intubated upon arrival. She was repeatedly falling at home. She was noted to have elevated d-dimer. Labs upon arrival were with a leukocytosis of 23.7, d-dimer 1.6, initial sodium of 107 which is corrected with hypertonic saline. Rapid COVID antigen and PCR test were negative. # Significant hyponatremia Sodium 107 upon arrival, now has improved significantly. Now normal at 134. Had received hypertonic saline initially. Appreciate nephrology recommendations. CT of the head without any acute intracranial abnormalities. Past notes had detected possible adrenal insufficiency due to low levels of cortisol and abnormal ACTH suppression test. Her steroids were discontinued at some point. Completed methylprednisolone taper down from every 6 hours to every 12 hours on 12/05. Currently TSH is at 0.42, random cortisol at 17.06. #Acute respiratory failure requiring intubation and mechanical ventilatory support upon admission. Appears to be multifactorial. Patient may have suffered a low respiratory drive from the hyponatremia versus some degree of aspiration is also possible. Serial chest x-rays have shown patchy infiltrates in bilateral lungs. CTA with B/L nonspecific GGOS, likely to represent fluid given overall clinical picture. No PE Alternate differentials include flash pulmonary edema given elevated BNP and bilateral exudates. Stop Zosyn. Continue Levaquin antibiotic day 6 today Blood culture 2 of 4 bottles from the same set reported as positive for corynebacterium and CoNs, represnt contaminants. Repeat blood cx from 12/02 with no growth thus far. # Sepsis : as evidenced by leukocytosis, hypoxia, lactic acidosis, tachycardia Rapid COVID-19 screen negative, influenza negative, PCR COVID-19 test negative urine legionella Ag negative C diff PCR+, started po vancomycin, d/c zosyn, continue levaquin for now for a total 7-day course. #Acute encephalopathy: -Per has had gradually declining mental status for several months, worsening over the past few days which could be at least in part secondary to degree of hyponatremia -Currently on sedation, follows basic commands # Hypertension: -Monitor vital signs --Systolic blood pressure ranging between 150s to 160s. Start amlodipine 5 mg # Insulin dependent type 2 diabetes mellitus: -Complicated by gastroparesis -This morning blood sugar was at 62, hold insulin Levemir and sliding scale for now as patient is not really having much p.o. intake and hypoglycemia on morning labs. #Hypokalemia: -Replace as needed -Continue to monitor #Hypomagnesemia replaced with IV. Dispo: SNF when nearing discharge due to significant deconditioning ppx: Lovenox Attestations Medical Necessity Statement*: post extubation Coding Level of Care Code Acute Community Health Representative for Navid Simons
[2019-12-08] MEDS: pantoprazole 40 mg SDV IVP (08:22)
[2019-12-08] MEDS: predniSONE 10 mg Tablet PO (08:22)
[2019-12-08] MEDS: aspirin 81 mg Chew Tablet PO (08:22)
[2019-12-08] MEDS: levothyroxine 150 mcg Tablet 75 MCG OG-TUBE (08:22)
[2019-12-08] MEDS: amlodipine 5 mg Tablet PO (08:22)
[2019-12-08] MEDS: venlafaxine 75 mg Tablet PO (08:22)
--- NOTE | 2019-12-08 11:06 | P.PN_ITS ---
Subjective Subjective: Interval history: more alert and awake today, conversant, asking for food and upset at not getting it. She has been advised that she need sto pass the swallow eval first. Per her intake has been poor since at least 2-3 months. 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 He was intubated upon arrival. She was repeatedly falling at home. She was noted to have elevated d-dimer. Labs upon arrival were with a leukocytosis of 23.7, d- dimer 1.6, initial sodium of 107 which is corrected with hypertonic saline. Rapid COVID antigen and PCR test were negative. # Significant hyponatremia Sodium 107 upon arrival, now has improved significantly. Now imrpoved. Had received hypertonic saline initially. Currently on salt tablets . Appreciate nephrology recommendations. CT of the head without any acute intracranial abnormalities. Past notes had detected possible adrenal insufficiency due to low levels of cortisol and abnormal ACTH suppression test. Her steroids were discontinued at some point. Completed methylprednisolone taper down from every 6 hours to every 12 hours on 12/05. Prednisone added yesetrday at 10mg po daily. Currently TSH is at 0.42, random cortisol at 17.06. #Acute respiratory failure requiring intubation and mechanical ventilatory support upon admission. Appears to be multifactorial. Patient may have suffered a low respiratory drive from the hyponatremia versus some degree of aspiration is also possible. Serial chest x-rays have shown patchy infiltrates in bilateral lungs. CTA with B/L nonspecific GGOS, likely to represent fluid given overall clinical picture. No PE Alternate differentials include flash pulmonary edema given elevated BNP and bilateral exudates. She has a h/o FRANKY and wears a bipap at home, likely this contributed with a depressed mental status from hyponatremia. Discontinue Levaquin. Completed empiric course of antibiotics for possible pneumonia. Blood culture 2 of 4 bottles from the same set reported as positive for corynebacterium and CoNs, represent contaminants. Repeat blood cx from 12/02 with no growth thus far. # Sepsis : as evidenced by leukocytosis, hypoxia, lactic acidosis, tachycardia Rapid COVID-19 screen negative, influenza negative, PCR COVID-19 test negative urine legionella Ag negative C diff PCR+, started po vancomycin #Acute encephalopathy: -Per has had gradually declining mental status for several months, worsening over the past few days which could be at least in part secondary to degree of hyponatremia -Currently on sedation, follows basic commands # Hypertension: -Monitor vital signs --Systolic blood pressure ranging between 150s to 160s. Continue amlodipine 5 mg, beter controlled now # Insulin dependent type 2 diabetes mellitus: -Complicated by gastroparesis -This morning blood sugar was at 62, hold insulin Levemir and sliding scale for now as patient is not really having much p.o. intake and hypoglycemia on morning labs. Per patient has not been eating well since at least 3-4 months, also here noted to fail swallow eval at least twice this admission.Only taking ensure at home. she has lost approximately 20 kg unintentionally since march per review of weights charted in the system. Will get Ba swallow to get assessment of swallow status and PEG assessment if indiacted #Hypokalemia: -Replace as needed -Continue to monitor #Hypomagnesemia replaced with IV. Dispo: SNF when nearing discharge due to significant deconditioning ppx: Lovenox Attestations Medical Necessity Statement*: Ba swallow today, further plans deteremined by results Coding Level of Care Code Acute Corporate Wellness Coordinator for Navid Simons
--- NOTE | 2019-12-08 11:10 | FL_ITS ---
WS: [id number] MODIFIED BARIUM SWALLOW HISTORY: Oropharyngeal dysphagia FLUOROSCOPY TIME: 2.8 minutes. Modified barium swallow was performed by the speech pathologist. Fluoroscopy was provided with the pa tient in a lateral projection. Multiple food consistencies were provided. Several episodes of laryngeal penetration and aspiration were noted. Several food consistencies were responsible for the aspiration. There is also limited clearing of the barium from the oral pharynx. P atient remains at significant risk for continued aspiration due to incomplete clearing. After the epi sodes of aspiration patient did have a spontaneous cough. FL/FL barium swallow modifd [id number] IMPRESSION: 1. Multiple episodes of laryngeal penetration and aspiration were noted with s everal of the liquid and nectar consistencies. 2. Incomplete clearing of the oropharynx placing the patient at additional inc reased risk for aspiration. Please see speech therapist report also for recommendations.
--- NOTE | 2019-12-08 11:43 | PM.PN ---
Subjective Subjective: Interval history: extubated, alert, no complaints RN reports swallowing issue - study pending Medications: Reviewed: Yes Vitals/I&O/Wt Last Vital Signs Temp 99 F 12/07/19 18:00 Pulse 96 12/08/19 07:27 Resp 18 12/08/19 07:27 BP 158/98 12/08/19 06:00 Pulse Ox 94 12/08/19 07:27 12/07/19 12/08/19 12/08/19 22:59 06:59 14:59 Intake Total 730 / 730 500 / 1230 Output Total 1500 / 1500 1500 / 3000 Balance -770 / -770 -1000 / -1770 Weight last 48 hrs Weight 73.028 kg Weight 72.892 kg Physical Exam Const: COMMON NORMALS: no acute distress ORIENTATION/CONSCIOUSNESS: Yes awake Resp: COMMON NORMALS: normal respiratory effort AUSCULTATION: rhonchi Cardio: COMMON NORMALS: regular rate and regular rhythm RATE: regular rate RHYTHM: regular rhythm Extremity: GENERAL: No edema Urinary Catheter Management^: Magana: Cath Placed During This Visit: yes Reason for Continuing Indwelling Catheter: Accurate Measurement of Urinary Output in Critically Ill Patients Urinary Catheter Date of Insertion: 12/02/19 Urinary Catheter Time of Insertion: 18:44 Data : 12/07/19 03:52 12/08/19 03:40 Other Labs: albumin 2.4, calcium 8, phos 5.3, Mg 1.4 urine osm 253 - not consistent with SIADH Micro: Microbiology 12/03/19 02:10 Blood Culture - Final Blood NO GROWTH AFTER 5 DAYS A&P Additional A&P Information 1. hyponatremia - stable, effexor may be contributing, consider decreasing dose 2. hypokalemia, hypomagnesemia - replace. Spironolactone may be a good addition for hypertension and hypokalemia 3. anemia - check TSAT Attestations Medical Necessity Statement*: per primary service Time Spent in Patient Care: 16 - 35 minutes Coding Level of Care Code Acute Second Class Welder for Chg Fwd Exam Expanded Problem Focused
[2019-12-08] MEDS: potassium chloride premix 40 MEQ/100 ML PREMIX 25 MEQ IV (13:50)
--- NOTE | 2019-12-08 14:03 | PC.NURSE ---
Dr Floyd notified that Modified barium swallow test done. Pt stated she has had a feeding tube before and she does not want another one. I can eat and drink like I normally do .
[2019-12-08] MEDS: acetaminophen 650 mg Supp PR (15:01)
--- NOTE | 2019-12-08 16:00 | PC.NURSE ---
Report faxed to [facility].
[2019-12-08 16:27] LABS: Glucose Point of Care 71 mg/dL (70-110)
--- NOTE | 2019-12-08 16:38 | PC.NURSE ---
Further verbal report given to Arlen Parker Rn, on [facility].
--- NOTE | 2019-12-08 17:10 | PC.NURSE ---
Pt transferred to [place] [id number] via bed. Further Report to DEBRA Mckinley. All belongings with pt, helped pack.
[2019-12-08 17:18] LABS: Glucose Point of Care 158 mg/dL (70-110)
[2019-12-08 21:48] LABS: Glucose Point of Care 134 mg/dL (70-110)
[2019-12-08] MEDS: enoxaparin 40 mg/0.4 mL Syringe SUBCUT (23:37)
[2019-12-09] VITALS (10 sets, daily range): BP systolic 133–156; BP diastolic 75–82; PULSE 88–95; RESP 17–24; TEMP 36.6–36.8; O2SAT 91–97; BMI 28.5
[2019-12-09] MEDS: ipratropium-albuterol 3 mL Neb INHALATION ×3 (03:00→16:55)
[2019-12-09] MEDS: haloperidol inj 5 mg/mL INJ 1 mL IM ×2 (03:07→23:04)
[2019-12-09 05:39] LABS: Glucose Point of Care 133 mg/dL (70-110)
[2019-12-09 05:39] LABS: Glucose Point of Care 134 mg/dL (70-110)
[2019-12-09 06:02] LABS: Basophils % 0.1 %; Eosinophils # 0.1 10^3/uL (0.0-0.8); Eosinophils % 0.6 %; Hematocrit 24.9 % (37.0-47.0); Hemoglobin 8.4 g/dL (11.5-15.3); Lymphocytes # 2.2 10^3/uL (0.8-4.8); Lymphocytes % 15.7 %; Mean Corpuscular HGB Conc 33.7 g/dL (30.0-36.0); Mean Corpuscular Hemoglobin 27.9 pg (28.0-34.0); Mean Corpuscular Volume 82.7 fL (81-99); Mean Platelet Volume 8.6 fL (7.4-10.4); Monocytes # 1.4 10^3/uL (0.2-0.9); Monocytes % 10.2 %; Neutrophils # 9.73 10^3/uL (1.8-7.7); Neutrophils % 69.5 %; Nucleated Red Blood Cells % 0 %; Platelet Count 446 10^3/cmm (130-400); Red Blood Count 3.01 10^6/uL (4.1-5.3); Red Cell Distribution Width 14.7 % (12.1-15.1)
--- NOTE | 2019-12-09 06:05 | P.CONIM_ITS ---
Providers/Reason For Consult Consulting Physican/Specialty*: Fernie Duron MD Reason for Consult*: Difficulty in swallowing requiring feeding tube placement Attending Physician: Azalia Floyd MD Primary Care Provider: KATRINA Cash History of Present Illness History of Present Illness Chief Complaint: Difficulty in swallowing History of present illness: Ms Ingris Mendosa is a 64 year old female with associated multiple medical comorbidities, appears that the patient having chronic difficulty in swallowing with potential aspirations. General surgery was consulted for placement of feeding tube. Review of Systems General: Reports: 10 or more systems reviewed and unremarkable except in HPI and below Meds/Allergies Home Medications and Allergies Home Medications Medication Instructions Recorded Confirmed Last Taken Type aspirin [Aspir-81] 81 mg PO DAILY 04/09/19 12/02/19 09/06/19 History atorvastatin 80 mg PO QPM 04/09/19 12/02/19 09/06/19 History levothyroxine 75 mcg PO DAILY 04/09/19 12/02/19 09/06/19 History lidocaine 1 patch TOPICAL PRN PRN 04/09/19 12/02/19 Unknown History metoprolol tartrate 25 mg PO BID 04/09/19 12/02/19 09/06/19 History pantoprazole 40 mg PO DAILY 04/09/19 12/02/19 09/06/19 History insulin aspart U-100 [Novolog See Rx Instructions .ROUTE 04/10/19 12/02/19 09/05/19 Rx Flexpen U-100 Insulin] .COMPLEX #0 ml metoclopramide HCl 5 mg tablet 5 mg PO .qac #90 tab 08/10/19 12/02/19 09/06/19 Rx acetaminophen [Tylenol Extra 1,000 mg PO PRN 08/24/19 12/02/19 09/05/19 History Strength] vancomycin See Rx Instructions .ROUTE 08/30/19 12/02/19 09/06/19 Rx .COMPLEX #48 cap amlodipine 10 mg PO DAILY #30 tab 09/10/19 12/02/19 Unknown Rx furosemide 20 mg PO EVERY OTHER DAY #15 tab 09/10/19 12/02/19 09/06/19 Rx glimepiride 2 mg PO DAILY #15 tab 09/10/19 12/02/19 09/06/19 Rx magnesium oxide 400 mg PO BID #60 tab 09/10/19 12/02/19 Unknown Rx sodium Cl-sod cit-pot Cl-dextr See Rx Instructions .ROUTE 09/10/19 12/02/19 Unknown Rx [NormaLyte ORS] .COMPLEX #288 each hydroxyzine pamoate 50 mg capsule 50 mg PO BID PRN #60 cap 10/19/19 12/02/19 Unknown Rx quetiapine 50 mg tablet 50 mg PO BEDTIME #30 tab 10/19/19 12/02/19 Unknown Rx trazodone 150 mg tablet 150 mg PO BEDTIME #30 tab 10/19/19 12/02/19 Unknown Rx venlafaxine 150 mg 150 mg PO DAILY #30 cap 10/19/19 12/02/19 Unknown Rx capsule,extended release 24 hr Allergies Allergy/AdvReac Type Severity Reaction Status Date / Time No Known Allergies Allergy Verified 12/09/19 06:51 Current Medications Current Medications Generic Name Dose Route Start Last Admin Trade Name Freq PRN Reason Stop Dose Admin Acetaminophen 650 mg 12/02/19 20:50 12/08/19 15:01 Tylenol CA 650 mg Q6H PRN Administration Fever or mild pain Albuterol/Ipratropium 3 ml 12/03/19 15:00 12/09/19 03:00 Duoneb INHALATION 3 ml Q6H.RESPIRATORY MICHELLE Administration Amlodipine Besylate 5 mg 12/08/19 09:00 12/08/19 08:22 Norvasc PO 5 mg DAILY MICHELLE Administration Aspirin 81 mg 12/04/19 10:00 12/08/19 08:22 Aspirin Chewable PO 81 mg DAILY MICHELLE Administration Atorvastatin Calcium 80 mg 12/03/19 18:00 12/08/19 17:38 Lipitor OG-TUBE Not Given QPM MICHELLE Dextrose 25 ml 12/02/19 20:50 12/07/19 23:26 D50w IVP 25 ml ONCE PRN Administration hypoglycemia protocol Protocol Enoxaparin Sodium 40 mg 12/05/19 23:00 12/08/19 23:37 Lovenox SUBCUT 40 mg Q24H MICHELLE Administration Haloperidol Lactate 0.5 mg 12/07/19 15:03 12/09/19 03:07 Haldol Inj IM 0.5 mg Q8H PRN Administration AGITATION Levothyroxine Sodium 75 mcg 12/03/19 09:00 12/08/19 08:22 Synthroid OG-TUBE 75 mcg DAILY MICHELLE Administration Pantoprazole Sodium 40 mg 12/03/19 09:00 12/08/19 08:22 Protonix IVP 40 mg DAILY MICHELLE Administration Prednisone 10 mg 12/08/19 09:00 12/08/19 08:22 Prednisone PO 10 mg DAILY MICHELLE Administration Vancomycin HCl 250 mg 12/06/19 09:00 12/08/19 20:59 Vancocin XX 250 mg QID MICHELLE Administration Venlafaxine HCl 75 mg 12/04/19 10:00 12/08/19 17:38 Effexor PO Not Given BID MICHELLE PFSH Acute PFSH: Medical History (Updated 12/09/19 @ 06:52 by Fernie Duron MD) C. 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, recurrent severe without psychotic features Morbid obesity Post-traumatic stress disorder, chronic Surgical History H/O esophagogastroduodenoscopy H/O: hysterectomy History of bunionectomy bilateral Hx of cholecystectomy Status post colonoscopy Family History Other CAD (coronary artery disease) Cancer Diabetes Hypertension Denies family history of Anesthesia complication Bleeding disorder Social History Smoking and tobacco status: current every day smoker cigars Cigar details: 1 PPD Smoking risk assessment/counseling performed?: No Alcohol intake: former Former alcohol use details: Reportedly has not had any alcohol since June Substance/Drug Use: never Household members: spouse Housing: Manufactured/Mobile home Marital status: Current occupational status: retired History of recent travel: No Vitals/I&O/Wt Last Vital Signs Temp 98 F 12/09/19 04:00 Pulse 88 12/09/19 04:00 Resp 24 H 12/09/19 04:00 BP 146/76 12/09/19 04:00 Pulse Ox 97 12/09/19 04:00 12/08/19 12/08/19 12/09/19 14:59 22:59 06:59 Intake Total 300 / 300 50 / 350 Output Total 2315 / 2315 500 / 2815 Balance 300 / 300 -2265 / -1965 -500 / -2465 Weight last 48 hrs Weight 161 lb Physical Exam Narrative: EXAM NARRATIVE: Patient is conscious alert oriented X3 BMI 28.5 Head and neck examination PERRLA no masses no cervical lymphadenopathy no jaundice Cardiac examination audible S1-S2 no murmurs no gallops no arrhythmias Chest scattered wheezes on the left side. Abdomen nontender nondistended soft no organomegaly guarding or rigidity/no signs of peritonitis Urinary Catheter Management^: Magana: Cath Placed During This Visit: yes Reason for Continuing Indwelling Catheter: Accurate Measurement of Urinary Out put in Critically Ill Patients Urinary Catheter Date of Insertion: 12/02/19 Urinary Catheter Time of Insertion: 18:44 Data Micro: Micro: Microbiology 12/02/19 16:50 Blood Culture - Fi nal Blood Corynebacterium species Coagulase negat iv staphylococc 12/03/19 02:10 Blood Culture - Fi nal Blood NO GROWTH AFTER 5 DAYS A&P Assessment and plan (1) Dysphagia: Plan of care; After thorough history and physical examination and reviewing the chart, plan to perform a percutaneous gastrostomy feeding tube placement under endoscopic guidance. I discussed with the patient in detail the risk,benefits,alternatives and indications.The risk of aspiration, bleeding, soft tissue injury, perforation of the stomach/esophagus and other potential concomitant complications were explained to the patient in details.The patient understood this well and did a gree to proceed. Rationale was carefully and clearly discussed with the patient.Appropriate informed consent have been reviewed and signed All questions have been answered and all concerns have been addressed to patient's satisfaction. Status: Acute Consult Attestations Medical Necessity Statement: Per hospitalist service Time Spent in Patient Care: (>than 50% of time spent in counselling and/or direct pt care on unit) . Coding Level of Care Code Acute Division Operations Manager for Chg Fwd Diagnoses Dysphagia R13.10
[2019-12-09 06:37] LABS: Alanine Aminotransferase 12 U/L (0-33); Albumin Level 2.6 g/dL (3.5-5.2); Alkaline Phosphatase 65 IU/L (35-105); Anion Gap 14.9 (5-19); Aspartate Amino Transferase 14 U/L (0-32); Blood Urea Nitrogen 4 mg/dL (8-23); Calcium 7.7 mg/dL (8.5-10.5); Carbon Dioxide 28 mmol/L (22-29); Chloride 90 mmol/L (98-107); Globulin 2.6 g/dL (1.3-4.6); Glomerular Filtration Rate 123.8 mL/min (90-130); Glucose 182 mg/dL (65-115); Magnesium 1.4 mg/dL (1.7-2.3); Osmolality Calculated 272 mOsm/kg (285-295); Phosphorus 3.6 mg/dL (2.5-4.5); Sodium 130 mmol/L (136-145); Total Bilirubin 0.3 mg/dL (0.15-1.2); Total Protein 5.2 g/dL (6.6-8.7)
[2019-12-09 06:46] LABS: Glucose Point of Care 192 mg/dL (70-110)
[2019-12-09 07:00] LABS: Potassium 2.9 mmol/L (3.5-5.1)
[2019-12-09] MEDS: potassium chloride premix 40 MEQ/100 ML PREMIX 25 MEQ IV (09:21)
[2019-12-09] MEDS: lidocaine 1% INJ 20 mL 5 ML INJECTION (09:33)
[2019-12-09] MEDS: pantoprazole 40 mg SDV IVP (10:03)
[2019-12-09] MEDS: venlafaxine 75 mg Tablet PO ×2 (10:04→17:59)
[2019-12-09] MEDS: amlodipine 5 mg Tablet PO (10:04)
[2019-12-09] MEDS: levothyroxine 150 mcg Tablet 75 MCG OG-TUBE (10:05)
[2019-12-09] MEDS: predniSONE 10 mg Tablet PO (10:07)
[2019-12-09] MEDS: aspirin 81 mg Chew Tablet PO (10:07)
--- NOTE | 2019-12-09 10:08 | P.ANESASSM_ITS ---
Pre-Anesthetic Assessment Pre-Anesthetic Assessment: Height/Weight: Height 1.6 m Weight 73.028 kg Temp Pulse Resp BP Pulse Ox 98.3 F 94 17 154/80 95 12/09/19 07:18 12/09/19 08:26 12/09/19 08:14 12/09/19 07:18 12/09/19 08:14 Preop Diagnosis: Dysphagia Proposed Procedure: Operation Date: 12/10/19 08:00 Proposed Procedures p PEG Tube Insertion(Not Applicable) - Fernie Duron MD Familial anesthetic complications: none Was Beta Migdalia taken within 24 hours: Yes Social: Social History: Tobacco Comment: former alchoholic - no drink since june Exam: Pre-Anes Outpt Exam: alert, oriented x 3, clear to auscultation bilaterally and regular rate & rhythm Airway: MP: 2 Dentition: Other (no teeth) Additional comments: smoker Pulmonary: Pulmonary: Sleep apnea (on bipap) Comments: recent resp failure requiring intubation - hyponatremia vs aspiration vs flash pulm edema (elevated bnp) CV/HEM: CV/HEM: CHF and HTN Comments: echo 12/04/19 - normal systolic function, EF 55% grade I diastolic dysfunction, mild pulm HTN, no stenosis or regurge : : Chronic renal Insufficiency GI: GI: GERD Metabolic: Metabolic: DM, Hyperlipidemia, Morbid obesity and Thyroid Comments: adrenal insufficiency Potassium 2.8 being replaced Anesthetic Plan: ASA status: 4 Anesthesia: MAC Risk of > 500 ml blood loss (7ml/kg in children): No Meds/Allergies Current Medications: Current Medications Generic Name Dose Route Start Last Admin Trade Name Freq PRN Reason Stop Dose Admin Acetaminophen 650 mg 12/02/19 20:50 12/08/19 15:01 Tylenol WY 650 mg Q6H PRN Administration Fever or mild shilpa n Albuterol/Ipratrop ium 3 ml 12/03/19 15:00 12/09/19 08:14 Duoneb INHALATION 3 ml Q6H.RESPIRATORY S CH Administration Amlodipine Besylat e 5 mg 12/08/19 09:00 12/08/19 08:22 Norvasc PO 5 mg DAILY MICHELLE Administration Aspirin 81 mg 12/04/19 10:00 12/08/19 08:22 Aspirin Chewable PO 81 mg DAILY MICHELLE Administration Atorvastatin Calci um 80 mg 12/03/19 18:00 12/08/19 17:38 Lipitor OG-TUBE Not Given QPM MICHELLE Dextrose 25 ml 12/02/19 20:50 12/07/19 23:26 D50w IVP 25 ml ONCE PRN Administration hypoglycemia prot ocol Protocol Enoxaparin Sodium 40 mg 12/05/19 23:00 12/08/19 23:37 Lovenox SUBCUT 40 mg Q24H MICHELLE Administration Haloperidol Lactat e 0.5 mg 12/07/19 15:03 12/09/19 03:07 Haldol Inj IM 0.5 mg Q8H PRN Administration AGITATION Potassium Chloride 40 meq in 100 mls @ 25 mls/hr 12/09/19 09:00 12/09/19 09:21 K-Sam IV 12/09/19 12:59 25 mls/hr ONCE ONE Administration Levothyroxine Sodi um 75 mcg 12/03/19 09:00 12/08/19 08:22 Synthroid OG-TUBE 75 mcg DAILY MICHELLE Administration Pantoprazole Sodiu m 40 mg 12/03/19 09:00 12/08/19 08:22 Protonix IVP 40 mg DAILY MICHELLE Administration Prednisone 10 mg 12/08/19 09:00 12/08/19 08:22 Prednisone PO 10 mg DAILY MICHELLE Administration Vancomycin HCl 250 mg 12/06/19 09:00 12/08/19 20:59 Vancocin XX 250 mg QID MICHELLE Administration Venlafaxine HCl 75 mg 12/04/19 10:00 12/08/19 17:38 Effexor PO Not Given BID [facility] Additional Medication Information: Current Medications Acetaminophen (Tylenol) 650 mg WY Q6H PRN PRN Reason: Fever or mild pain Last Admin: 12/03/19 02:06 Dose: 650 mg Documented by: Albuterol/Ipratropium (Duoneb) 3 ml INHALATION Q6H.RESPIRATORY MICHELLE Last Admin: 12/07/19 03:00 Dose: 3 ml Documented by: Aspirin (Aspirin Chewable) 81 mg PO DAILY MICHELLE Last Admin: 12/06/19 08:17 Dose: 81 mg Documented by: Atorvastatin Calcium (Lipitor) 80 mg OG-TUBE QPM MICHELLE Last Admin: 12/06/19 18:08 Dose: 80 mg Documented by: Dextrose (D50w) 25 ml IVP ONCE PRN; Protocol PRN Reason: hypoglycemia protocol Dextrose (D50w) 50 ml IVP PRN PRN; Protocol PRN Reason: hypoglycemia protocol Enoxaparin Sodium (Lovenox) 40 mg SUBCUT Q24H [facility] Last Admin: 12/06/19 22:44 Dose: 40 mg Documented by: Glucagon (Glucagen) 1 mg IM ONCE PRN; Protocol PRN Reason: Adult Acute Hypoglycemia Prot. Levofloxacin/Dextrose (Levaquin-D5w) 750 mg in 150 mls @ 100 mls/hr IV Q24H MICHELLE; Protocol Last Admin: 12/06/19 21:10 Dose: 100 mls/hr Documented by: Propofol (Diprivan) 1,000 mg in 100 mls @ 0 mls/hr IV .Q0M MICHELLE; Protocol Last Admin: 12/06/19 07:21 Dose: 106.84 mcg/kg/min, 50 mls/hr Documented by: Norepinephrine Bitartrate 8 mg (/ Dextrose) 508 mls @ 0 mls/hr IV .Q0M MICHELLE; Protocol Insulin Aspart (Novolog) 0 unit SUBCUT WM&BEDTIME MICHELLE; Protocol Last Admin: 12/06/19 20:46 Dose: Not Given Documented by: Insulin Detemir (Levemir) 5 unit SUBCUT Q12H [facility] Last Admin: 12/06/19 21:10 Dose: 5 unit Documented by: Levothyroxine Sodium (Synthroid) 75 mcg OG-TUBE DAILY [facility] Last Admin: 12/06/19 08:16 Dose: 75 mcg Documented by: Ondansetron HCl (Zofran) 4 mg IVP Q6H PRN PRN Reason: NAUSEA AND VOMITING Pantoprazole Sodium (Protonix) 40 mg IVP DAILY [facility] Last Admin: 12/06/19 08:17 Dose: 40 mg Documented by: Vancomycin HCl (Vancocin) 250 mg XX QID [facility] Last Admin: 12/06/19 21:09 Dose: 250 mg Documented by: Venlafaxine HCl (Effexor) 75 mg PO BID [facility] Last Admin: 12/06/19 18:08 Dose: 75 mg Documented by: PFSH Anesthesia PFS: Medical History (Updated 12/09/19 @ 06:52 by Fernie Duron MD) C. 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, recurrent severe without psychotic features Morbid obesity Post-traumatic stress disorder, chronic Surgical History H/O esophagogastroduodenoscopy H/O: hysterectomy History of bunionectomy bilateral Hx of cholecystectomy Status post colonoscopy Family History Other CAD (coronary artery disease) Cancer Diabetes Hypertension Denies family history of Anesthesia complication Bleeding disorder Social History Smoking and tobacco status: current every day smoker cigars Cigar details: 1 PPD Smoking risk assessment/counseling performed?: No Alcohol intake: former Former alcohol use details: Reportedly has not had any alcohol since June Substance/Drug Use: never Household members: spouse Housing: Manufactured/Mobile home Marital status: Current occupational status: retired History of recent travel: No Data Anesthesia CBC & Chem 7: 12/09/19 05:37 12/09/19 05:37 Other Labs: Laboratory Results - last 48 hr 12/07/19 12/07/19 12/07/19 11:26 17:48 23:10 WBC RBC Hgb Hct MCV MCH MCHC RDW Plt Count MPV Neut % (Auto) Lymph % (Auto) Pratt % (Auto) Eos % (Auto) Baso % (Auto) Neut # (Auto) Lymph # (Auto) Pratt # (Auto) Eos # (Auto) Baso # (Auto) Nucleated RBC % (auto) Nucleated RBCs # Sodium Potassium Chloride Carbon Dioxide Anion Gap BUN Creatinine GFR Calculation Glucose POC Glucose 110 71 68 Calculated Osmolality Calcium Phosphorus Magnesium Total Bilirubin AST ALT Alkaline Phosphatase Total Protein Albumin Globulin 12/07/19 12/08/19 12/08/19 23:52 03:40 07:30 WBC RBC Hgb Hct MCV MCH MCHC RDW Plt Count MPV Neut % (Auto) Lymph % (Auto) Pratt % (Auto) Eos % (Auto) Baso % (Auto) Neut # (Auto) Lymph # (Auto) Pratt # (Auto) Eos # (Auto) Baso # (Auto) Nucleated RBC % (auto) Nucleated RBCs # Sodium 132 L Potassium 3.3 L Chloride 92 L Carbon Dioxide 29 Anion Gap 14.3 BUN 4 L Creatinine 0.6 GFR Calculation 100.3 Glucose 92 POC Glucose 129 133 Calculated Osmolality 271 L Calcium 8.0 L Phosphorus 5.3 H Magnesium 1.4 L Total Bilirubin 0.3 AST 20 ALT 13 Alkaline Phosphatase 74 Total Protein 5.1 L Albumin 2.4 L Globulin 2.7 12/08/19 12/08/19 12/08/19 11:52 16:48 21:45 WBC RBC Hgb Hct MCV MCH MCHC RDW Plt Count MPV Neut % (Auto) Lymph % (Auto) Pratt % (Auto) Eos % (Auto) Baso % (Auto) Neut # (Auto) Lymph # (Auto) Pratt # (Auto) Eos # (Auto) Baso # (Auto) Nucleated RBC % (auto) Nucleated RBCs # Sodium Potassium Chloride Carbon Dioxide Anion Gap BUN Creatinine GFR Calculation Glucose POC Glucose 134 158 134 Calculated Osmolality Calcium Phosphorus Magnesium Total Bilirubin AST ALT Alkaline Phosphatase Total Protein Albumin Globulin 12/09/19 12/09/19 12/09/19 05:37 05:37 06:36 WBC 14.0 H RBC 3.01 L Hgb 8.4 L Hct 24.9 L MCV 82.7 MCH 27.9 L MCHC 33.7 RDW 14.7 Plt Count 446 H MPV 8.6 Neut % (Auto) 69.5 Lymph % (Auto) 15.7 Pratt % (Auto) 10.2 Eos % (Auto) 0.6 Baso % (Auto) 0.1 Neut # (Auto) 9.73 H Lymph # (Auto) 2.2 Pratt # (Auto) 1.4 H Eos # (Auto) 0.1 Baso # (Auto) 0.0 Nucleated RBC % (auto) 0 Nucleated RBCs # 0.0 Sodium 130 L Potassium 2.9 L Chloride 90 L Carbon Dioxide 28 Anion Gap 14.9 BUN 4 L Creatinine 0.5 GFR Calculation 123.8 Glucose 182 H POC Glucose 192 Calculated Osmolality 272 L Calcium 7.7 L Phosphorus 3.6 Magnesium 1.4 L Total Bilirubin 0.3 AST 14 ALT 12 Alkaline Phosphatase 65 Total Protein 5.2 L Albumin 2.6 L Globulin 2.6 Micro: Microbiology 12/02/19 16:50 Blood Culture - Final Blood Corynebacterium species Coagulase negativ staphylococc Cardiac Studies: No Data to Display
[2019-12-09] MEDS: spironolactone 25 mg Tablet 50 MG PO (10:09)
[2019-12-09 10:45] LABS: Glucose Point of Care 204 mg/dL (70-110)
--- NOTE | 2019-12-09 14:31 | DCPLANNER ---
Pg 2 of IM updated and reviewed with pt. She states that she will discuss it with her when he gets her @ 4:00.
--- NOTE | 2019-12-09 14:42 | P.PN_ITS ---
Subjective Subjective: Interval history: did not do well with swallowing study. Scheduled for PEG Medications: Reviewed: Yes Vitals/I&O/Wt Last Vital Signs Temp 98.2 F 12/09/19 11:32 Pulse 94 12/09/19 11:32 Resp 18 12/09/19 11:32 BP 133/75 12/09/19 11:32 Pulse Ox 92 12/09/19 11:32 12/08/19 12/09/19 12/09/19 22:59 06:59 14:59 Intake Total 150 / 450 220 / 220 Output Total 2315 / 2315 500 / 2815 450 / 450 Balance -2165 / -1865 -500 / -2365 -230 / -230 Weight last 48 hrs Weight 73.028 kg Weight 73.028 kg Physical Exam Const: COMMON NORMALS: no acute distress GENERAL APPEARANCE: cooperative Resp: COMMON NORMALS: normal respiratory effort Cardio: COMMON NORMALS: regular rate and regular rhythm RATE: regular rate RHYTHM: regular rhythm Extremity: GENERAL: Yes edema (trace) Urinary Catheter Management^: Magana: Cath Placed During This Visit: yes Reason for Continuing Indwelling Catheter: Accurate Measurement of Urinary Output in Critically Ill Patients Urinary Catheter Date of Insertion: 12/02/19 Urinary Catheter Time of Insertion: 18:44 Data : 12/09/19 05:37 12/09/19 05:37 Other Labs: albummin 2.6, yolanda Ca 8.9, Mg 1.4, phos 3.6 Micro: Microbiology 12/02/19 16:50 Blood Culture - Final Blood Corynebacterium species Coagulase negativ staphylococc A&P Additional A&P Information 1. hyponatremia - stable, urine osmolality not consistent with SIADS, effexor may be contributing, consider decreasing dose 2. hypokalemia, hypomagnesemia - replace. Spironolactone added 3. anemia - check TSAT Attestations Medical Necessity Statement*: per primary service Coding Level of Care Code Acute Spanish Interpreter for Navid Simons
--- NOTE | 2019-12-09 16:25 | PM.PN ---
Subjective Subjective: Interval history: No acute overnight events, hypokalemia on labs this morning, repleted appropriately, for PEG placement tomorrow morning. 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: no focal neuro deficits Urinary Catheter Management^: Magana: Cath Placed During This Visit: yes Reason for Continuing Indwelling Catheter: Accurate Measurement of Urinary Output in Critically Ill Patients Urinary Catheter Date of Insertion: 12/02/19 Urinary Catheter Time of Insertion: 18:44 Data : 12/09/19 05:37 12/09/19 05:37 Micro: Microbiology 12/02/19 16:50 Blood Culture - Final Blood Corynebacterium species Coagulase negativ staphylococc A&P Assessment and plan (1) Dysphagia: Status: Acute Additional A&P Information 64-year-old lady with a complicated past medical history currently admitted on 12/01 after presenting from home with confusion, weakness, diarrhea. He was intubated upon arrival. She was repeatedly falling at home. She was noted to have elevated d-dimer. Labs upon arrival were with a leukocytosis of 23.7, d-dimer 1.6, initial sodium of 107 which is corrected with hypertonic saline. Rapid COVID antigen and PCR test were negative. # Significant hyponatremia Sodium 107 upon arrival, now has improved significantly. Now imrpoved. Had received hypertonic saline initially. Currently on salt tablets . Appreciate nephrology recommendations. CT of the head without any acute intracranial abnormalities. Past notes had detected possible adrenal insufficiency due to low levels of cortisol and abnormal ACTH suppression test. Her steroids were discontinued at some point. Completed methylprednisolone taper down from every 6 hours to every 12 hours on 12/05. Prednisone added at 10mg po daily. There has been noticeable difference in patient's mentation and level of agility today. Patient was able to get out of bed today and ambulate to the bathroom and has also ambulated to the bedside commode. Currently TSH is at 0.42, random cortisol at 17.06. #Acute respiratory failure requiring intubation and mechanical ventilatory support upon admission. Appears to be multifactorial. Patient may have suffered a low respiratory drive from the hyponatremia versus some degree of aspiration is also possible. Serial chest x-rays have shown patchy infiltrates in bilateral lungs. CTA with B/L nonspecific GGOS, likely to represent fluid given overall clinical picture. No PE Alternate differentials include flash pulmonary edema given elevated BNP and bilateral exudates. She has a h/o FRANKY and wears a bipap at home, likely this contributed with a depressed mental status from hyponatremia. Discontinue Levaquin. Completed empiric course of antibiotics for possible pneumonia. Blood culture 2 of 4 bottles from the same set reported as positive for corynebacterium and CoNs, represent contaminants. Repeat blood cx from 12/02 with no growth thus far. # Sepsis : as evidenced by leukocytosis, hypoxia, lactic acidosis, tachycardia Rapid COVID-19 screen negative, influenza negative, PCR COVID-19 test negative urine legionella Ag negative C diff PCR+, started po vancomycin #Acute encephalopathy: -Per has had gradually declining mental status for several months, worsening over the past few days which could be at least in part secondary to degree of hyponatremia -This is now resolved and patient's mental status is back to baseline. # Hypertension: -Monitor vital signs --Systolic blood pressure ranging between 150s to 160s. Continue amlodipine 5 mg, beter controlled now . Spironolactone added today per nephrology recommendations # Insulin dependent type 2 diabetes mellitus: -Complicated by gastroparesis -Insulin has been on hold as patient has had very poor p.o. intake and had some episodes of hypoglycemia. Her A1c additionally currently is at 6.7. #Hypokalemia: -Replace as needed -Continue to monitor #Hypomagnesemia replaced with IV. #Oropharyngeal dysphasia of unclear etiology. 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 Will need further evaluation of dysphagia as outpatient. For now significant laryngeal penetration noted on swallow evaluations and also on modified barium swallow. Plan for PEG tube placement tomorrow.Per patient has not been eating well since at least 3-4 months, also here noted to fail swallow eval at least twice this admission.Only taking ensure at home. she has lost approximately 20 kg unintentionally since march per review of weights charted in the system. Dispo: SNF was recommended due to severe deconditioning, however both patient and patient's are against going to SNF and she will be leaving home with home health services. ppx: Lovenox Attestations Medical Necessity Statement*: Plan for PEG placement tomorrow, discharge once we can resume feedings via the tube. Coding Level of Care Code Acute Associate Professor Of Archaeology for Navid Simons Diagnoses Dysphagia R13.10
[2019-12-09 16:52] LABS: Glucose Point of Care 205 mg/dL (70-110)
[2019-12-09] MEDS: potassium chloride oral liq 20 mEq/15 mL UDC PO (17:18)
[2019-12-09] MEDS: atorvastatin 40 mg Tablet 80 MG OG-TUBE (17:18)
[2019-12-09] MEDS: magnesium oxide 400 mg tablet PO (17:18)
[2019-12-09] MEDS: enoxaparin 40 mg/0.4 mL Syringe SUBCUT (22:20)
[2019-12-10] VITALS (18 sets, daily range): BP systolic 136–165; BP diastolic 66–92; PULSE 64–108; RESP 14–22; TEMP 36.7–37.2; O2SAT 91–100
[2019-12-10 00:51] LABS: Glucose Point of Care 218 mg/dL (70-110)
[2019-12-10] MEDS: LORazepam 2 mg/mL INJ 1 mL IVP (01:17)
[2019-12-10] MEDS: ipratropium-albuterol 3 mL Neb INHALATION ×2 (03:33→14:35)
--- NOTE | 2019-12-10 05:51 | P.PN_ITS ---
Subjective Subjective: Interval history: Patient overall is doing well and undergone uneventful PEG tube placement yesterday. Was approached yesterday by patient's spouse about future potential for p.o. intake and I did defer for speech pathology input as well as hospitalist service with that regard, as I did explain for him that the patient is a high risk for aspiration that is why she undergone the PEG tube placement, yet in the future repeated swallow studies and potentially habilitation can be an avenue. Vitals/I&O/Wt Last Vital Signs Temp 98.4 F 12/10/19 04:00 Pulse 88 12/10/19 04:00 Resp 14 12/10/19 04:00 BP 144/71 12/10/19 04:00 Pulse Ox 94 12/10/19 04:00 12/09/19 12/09/19 12/10/19 14:59 22:59 06:59 Intake Total 220 / 220 720 / 940 Output Total 450 / 450 750 / 1200 Balance -230 / -230 720 / 490 -750 / -260 Weight last 48 hrs Weight 161 lb Weight 161 lb Physical Exam Narrative: EXAM NARRATIVE: Patient is conscious alert oriented X3 BMI 29.4 Head and neck examination PERRLA no masses no cervical lymphadenopathy no jaundice Abdomen nontender nondistended soft no organomegaly guarding or rigidity/no signs of peritonitis PEG tube in place and skin level 4-5 cm Urinary Catheter Management^: Magana: Cath Placed During This Visit: yes Reason for Continuing Indwelling Catheter: Accurate Measurement of Urinary Output in Critically Ill Patients Urinary Catheter Date of Insertion: 12/02/19 Urinary Catheter Time of Insertion: 18:44 Data : 12/11/19 05:22 12/11/19 05:22 A&P Assessment and plan (1) Dysphagia: Plan of care; Can start tube feeds via PEG tube today Abdominal binder to protect the PEG tube from being pulled out Assurance and education All questions have been answered and all concerns have been addressed to patient's satisfaction. Status: Acute Attestations Medical Necessity Statement*: Patient will require inpatient hospitalization past 2 midnights for medical optimization and make sure that she is tolerating tube feeds Time Spent in Patient Care: (>than 50% of time spent in counselling and/or direct pt care on unit) . Coding Level of Care Code Acute Head Bander And Liner Operator for Navid Simons Diagnoses Dysphagia R13.10
[2019-12-10 06:11] LABS: Basophils % 0.2 %; Eosinophils # 0.1 10^3/uL (0.0-0.8); Eosinophils % 0.7 %; Hematocrit 27.7 % (37.0-47.0); Hemoglobin 9.1 g/dL (11.5-15.3); Lymphocytes # 2.3 10^3/uL (0.8-4.8); Lymphocytes % 19.7 %; Mean Corpuscular HGB Conc 32.9 g/dL (30.0-36.0); Mean Corpuscular Hemoglobin 27.7 pg (28.0-34.0); Mean Corpuscular Volume 84.2 fL (81-99); Mean Platelet Volume 8.9 fL (7.4-10.4); Monocytes # 1.9 10^3/uL (0.2-0.9); Monocytes % 16.4 %; Neutrophils # 7.14 10^3/uL (1.8-7.7); Neutrophils % 60.5 %; Nucleated Red Blood Cells % 0 %; Platelet Count 412 10^3/cmm (130-400); Red Blood Count 3.29 10^6/uL (4.1-5.3); Red Cell Distribution Width 15.1 % (12.1-15.1); White Blood Count 11.8 10^3/uL (4.0-10.0)
[2019-12-10 06:29] LABS: Alanine Aminotransferase 12 U/L (0-33); Alkaline Phosphatase 71 IU/L (35-105); Anion Gap 13.3 (5-19); Aspartate Amino Transferase 12 U/L (0-32); Blood Urea Nitrogen 3 mg/dL (8-23); Calcium 7.9 mg/dL (8.5-10.5); Carbon Dioxide 29 mmol/L (22-29); Chloride 94 mmol/L (98-107); Globulin 2.2 g/dL (1.3-4.6); Glomerular Filtration Rate 123.8 mL/min (90-130); Glucose 169 mg/dL (65-115); Magnesium 1.2 mg/dL (1.7-2.3); Osmolality Calculated 276 mOsm/kg (285-295); Phosphorus 3.6 mg/dL (2.5-4.5); Potassium 3.3 mmol/L (3.5-5.1); Sodium 133 mmol/L (136-145); Total Bilirubin 0.3 mg/dL (0.15-1.2); Total Protein 5.2 g/dL (6.6-8.7)
[2019-12-10 06:31] LABS: Iron 61 ug/dL (37-145); Percent Saturation 31.2 % (20-50); Total Iron Binding Capacity 195 mcg/dl; Unsaturated Iron Binding 134 ug/dL (112-347)
[2019-12-10 06:36] LABS: Glucose Point of Care 178 mg/dL (70-110)
--- NOTE | 2019-12-10 07:28 | PM.PN ---
Subjective Subjective: Interval history: s/p PEG placement this morning, no complications, doing well post procedure, to start tube feeds tomorrow Medications: Reviewed: Yes Medication Review Details: Current Medications Acetaminophen (Tylenol) 650 mg IN Q6H PRN PRN Reason: Fever or mild pain Last Admin: 12/03/19 02:06 Dose: 650 mg Documented by: Albuterol/Ipratropium (Duoneb) 3 ml INHALATION Q6H.RESPIRATORY MICHELLE Last Admin: 12/07/19 03:00 Dose: 3 ml Documented by: Aspirin (Aspirin Chewable) 81 mg PO DAILY MICHELLE Last Admin: 12/06/19 08:17 Dose: 81 mg Documented by: Atorvastatin Calcium (Lipitor) 80 mg OG-TUBE QPM MICHELLE Last Admin: 12/06/19 18:08 Dose: 80 mg Documented by: Dextrose (D50w) 25 ml IVP ONCE PRN; Protocol PRN Reason: hypoglycemia protocol Dextrose (D50w) 50 ml IVP PRN PRN; Protocol PRN Reason: hypoglycemia protocol Enoxaparin Sodium (Lovenox) 40 mg SUBCUT Q24H MICHELLE Last Admin: 12/06/19 22:44 Dose: 40 mg Documented by: Glucagon (Glucagen) 1 mg IM ONCE PRN; Protocol PRN Reason: Adult Acute Hypoglycemia Prot. Levofloxacin/Dextrose (Levaquin-D5w) 750 mg in 150 mls @ 100 mls/hr IV Q24H MICHELLE; Protocol Last Admin: 12/06/19 21:10 Dose: 100 mls/hr Documented by: Propofol (Diprivan) 1,000 mg in 100 mls @ 0 mls/hr IV .Q0M MICHELLE; Protocol Last Admin: 12/06/19 07:21 Dose: 106.84 mcg/kg/min, 50 mls/hr Documented by: Norepinephrine Bitartrate 8 mg (/ Dextrose) 508 mls @ 0 mls/hr IV .Q0M MICHELLE; Protocol Insulin Aspart (Novolog) 0 unit SUBCUT WM&BEDTIME MICHELLE; Protocol Last Admin: 12/06/19 20:46 Dose: Not Given Documented by: Insulin Detemir (Levemir) 5 unit SUBCUT Q12H MICHELLE Last Admin: 12/06/19 21:10 Dose: 5 unit Documented by: Levothyroxine Sodium (Synthroid) 75 mcg OG-TUBE DAILY MICHELLE Last Admin: 12/06/19 08:16 Dose: 75 mcg Documented by: Ondansetron HCl (Zofran) 4 mg IVP Q6H PRN PRN Reason: NAUSEA AND VOMITING Pantoprazole Sodium (Protonix) 40 mg IVP DAILY [facility] Last Admin: 12/06/19 08:17 Dose: 40 mg Documented by: Vancomycin HCl (Vancocin) 250 mg XX QID [facility] [place] Last Admin: 12/06/19 21:09 Dose: 250 mg Documented by: Venlafaxine HCl (Effexor) 75 mg PO BID [facility] [place] Last Admin: 12/06/19 18:08 Dose: 75 mg Documented by: Vitals/I&O/Wt Last Vital Signs Temp 98.1 F 12/10/19 07:17 Pulse 64 12/10/19 07:17 Resp 18 12/10/19 07:17 BP 138/76 12/10/19 07:17 Pulse Ox 96 12/10/19 07:17 12/09/19 12/10/19 12/10/19 22:59 06:59 14:59 Intake Total 720 / 940 Output Total 750 / 1200 Balance 720 / 490 -750 / -260 Weight last 48 hrs Weight 72.892 kg Weight 73.028 kg Physical Exam Narrative: EXAM NARRATIVE: GEN: Awake, alert and oriented, no acute distress CVS: S1S2 N RS: CTA B/L Abd: Soft, nt/nd , bs+ Urinary Catheter Management^: Magana: Cath Placed During This Visit: yes Reason for Continuing Indwelling Catheter: Accurate Measurement of Urinary Output in Critically Ill Patients Urinary Catheter Date of Insertion: 12/02/19 Urinary Catheter Time of Insertion: 18:44 Data : 12/10/19 05:18 12/10/19 05:18 A&P Assessment and plan (1) Dysphagia: Status: Acute Additional A&P Information 64-year-old lady with a complicated past medical history currently admitted on 12/01 after presenting from home with confusion, weakness, diarrhea. He was intubated upon arrival. She was repeatedly falling at home. She was noted to have elevated d-dimer. Labs upon arrival were with a leukocytosis of 23.7, d-dimer 1.6, initial sodium of 107 which is corrected with hypertonic saline. Rapid COVID antigen and PCR test were negative. # Significant hyponatremia Sodium 107 upon arrival, now has improved significantly. Now imrpoved. Had received hypertonic saline initially. Currently on salt tablets . Appreciate nephrology recommendations. CT of the head without any acute intracranial abnormalities. Past notes had detected possible adrenal insufficiency due to low levels of cortisol and abnormal ACTH suppression test. Her steroids were discontinued at some point. Completed methylprednisolone taper down from every 6 hours to every 12 hours on 12/05. Prednisone added at 10mg po daily. There has been noticeable difference in patient's mentation and level of agility. Patient was able to get out of bed today and ambulate to the bathroom and has also ambulated to the bedside commode. Currently TSH is at 0.42, random cortisol at 17.06. #Acute respiratory failure requiring intubation and mechanical ventilatory support upon admission. Appears to be multifactorial. Patient may have suffered a low respiratory drive from the hyponatremia versus some degree of aspiration is also possible. Serial chest x-rays have shown patchy infiltrates in bilateral lungs. CTA with B/L nonspecific GGOS, likely to represent fluid given overall clinical picture. No PE Alternate differentials include flash pulmonary edema given elevated BNP and bilateral exudates. She has a h/o FRANKY and wears a bipap at home, likely this contributed with a depressed mental status from hyponatremia. Discontinue Levaquin. Completed empiric course of antibiotics for possible pneumonia. Blood culture 2 of 4 bottles from the same set reported as positive for corynebacterium and CoNs, represent contaminants. Repeat blood cx from 12/02 with no growth thus far. # Sepsis : as evidenced by leukocytosis, hypoxia, lactic acidosis, tachycardia Rapid COVID-19 screen negative, influenza negative, PCR COVID-19 test negative urine legionella Ag negative C diff PCR+, started po vancomycin received empiric pneumonia rx leukocytosis trending down #Acute encephalopathy: -Per has had gradually declining mental status for several months, worsening over the past few days which could be at least in part secondary to degree of hyponatremia -This is now resolved and patient's mental status is back to baseline. # Hypertension: -Monitor vital signs --Systolic blood pressure ranging between 150s to 160s. Continue amlodipine 5 mg, beter controlled now . Spironolactone added per nephrology recommendations, also help with recurrent hypokalemia # Insulin dependent type 2 diabetes mellitus: -Complicated by gastroparesis -Insulin has been on hold as patient has had very poor p.o. intake and had some episodes of hypoglycemia. Her A1c additionally currently is at 6.7. #Hypokalemia: -Replace as needed -Continue to monitor #Hypomagnesemia replaced with IV. #Oropharyngeal dysphasia of unclear etiology. 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 Will need further evaluation of dysphagia as outpatient. For now significant laryngeal penetration noted on swallow evaluations and also on modified barium swallow. s/p PEG placement today. Per patient has not been eating well since at least 3-4 months, also here noted to fail swallow eval at least twice this admission.Only taking ensure at home. she has lost approximately 20 kg unintentionally since march per review of weights charted in the system. [facility]ander consult for tube feeding recommendations Dispo: SNF was recommended due to severe deconditioning, however both patient and patient's are against going to SNF and she will be leaving home with home health services. ppx: Lovenox Attestations Medical Necessity Statement*: s/p PEG placement today, to start tube feeds today Coding Level of Care Code Acute Tripper for Chg Fwd Diagnoses Dysphagia R13.10
[2019-12-10] MEDS: sodium chloride 0.9% 1,000 ML 30 ML IV (07:56)
--- NOTE | 2019-12-10 08:50 | PM.PACU ---
PACU note Post-Anesthesia Exam: awake and vital signs stable Disposition: back to floor
[2019-12-10] MEDS: ALPRAZolam 0.25 mg Tablet PO ×2 (13:44→23:26)
--- NOTE | 2019-12-10 15:50 | PM.PN ---
Subjective Subjective: Interval history: I am seeing her in follow up for her elctrolyte abnormalities. She got G-tube this morning, otherwise no new complaints Medications: Reviewed: Yes Vitals/I&O/Wt Last Vital Signs Temp 98.0 F 12/10/19 15:01 Pulse 64 12/10/19 15:01 Resp 20 H 12/10/19 15:01 BP 136/70 12/10/19 15:01 Pulse Ox 95 12/10/19 15:01 12/10/19 12/10/19 12/10/19 06:59 14:59 22:59 Intake Total 0 / 0 Output Total 750 / 1200 605 / 605 Balance -750 / -260 -605 / -605 Weight last 48 hrs Weight 72.892 kg Weight 73.028 kg Physical Exam Const: COMMON NORMALS: no acute distress and patient oriented x3 ORIENTATION/CONSCIOUSNESS: Yes awake Resp: COMMON NORMALS: clear to auscultation bilaterally AUSCULTATION: clear to auscultation bilaterally Cardio: COMMON NORMALS: S1 normal heart sound present and S2 normal heart sound present HEART SOUNDS: S1 normal heart sound present and S2 normal heart sound present GI: AUSCULTATION: Yes normoactive bowel sounds Extremity: GENERAL: Yes edema Neuro: COMMON NORMALS: patient oriented x3 Urinary Catheter Management^: Magana: Cath Placed During This Visit: yes Reason for Continuing Indwelling Catheter: Accurate Measurement of Urinary Output in Critically Ill Patients Urinary Catheter Date of Insertion: 12/02/19 Urinary Catheter Time of Insertion: 18:44 Data : 12/10/19 05:18 12/10/19 05:18 A&P Assessment and plan (1) Hyponatremia: Sodium level improving, no further w/u needed Status: Acute (2) Hypokalemia: Replace as needed Status: Acute (3) Anemia: Follow hb Status: Acute Attestations Medical Necessity Statement*: hyponatremia Coding Level of Care 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
[2019-12-10 16:37] LABS: Glucose Point of Care 163 mg/dL (70-110)
[2019-12-10] MEDS: TRAMadol 50 mg Tablet PO (17:00)
[2019-12-10] MEDS: atorvastatin 40 mg Tablet 80 MG OG-TUBE (17:04)
[2019-12-10] MEDS: magnesium oxide 400 mg tablet PO (17:04)
[2019-12-10] MEDS: venlafaxine 75 mg Tablet PO (17:04)
[2019-12-10 20:54] LABS: Glucose Point of Care 140 mg/dL (70-110)
[2019-12-10] MEDS: morphine 4 mg/mL SDV 1 mL 1 MG IVP (21:01)
[2019-12-10] MEDS: enoxaparin 40 mg/0.4 mL Syringe SUBCUT (23:26)
[2019-12-11] VITALS (12 sets, daily range): BP systolic 124–160; BP diastolic 73–83; PULSE 84–99; RESP 17–19; TEMP 36.6–37.2; O2SAT 91–96
[2019-12-11] MEDS: morphine 4 mg/mL SDV 1 mL 1 MG IVP ×4 (01:06→22:13)
[2019-12-11 01:48] LABS: Glucose Point of Care 128 mg/dL (70-110)
--- NOTE | 2019-12-11 01:49 | PC.NURSE ---
patient states that she wants water to drink even though she is NPO. she stated that she is going to try to walk to the bathroom and drink from the sink if she isn't given any water.
[2019-12-11] MEDS: pantoprazole 40 mg SDV IVP ×2 (05:29→17:25)
[2019-12-11 05:50] LABS: Basophils % 0.3 %; Eosinophils # 0.1 10^3/uL (0.0-0.8); Eosinophils % 0.8 %; Hematocrit 22.5 % (37.0-47.0); Hemoglobin 7.5 g/dL (11.5-15.3); Lymphocytes # 2.5 10^3/uL (0.8-4.8); Lymphocytes % 24.7 %; Mean Corpuscular HGB Conc 33.3 g/dL (30.0-36.0); Mean Corpuscular Hemoglobin 28.4 pg (28.0-34.0); Mean Corpuscular Volume 85.2 fL (81-99); Mean Platelet Volume 9.2 fL (7.4-10.4); Monocytes # 1.4 10^3/uL (0.2-0.9); Monocytes % 14.3 %; Neutrophils # 5.81 10^3/uL (1.8-7.7); Neutrophils % 58.6 %; Nucleated Red Blood Cells % 0 %; Platelet Count 360 10^3/cmm (130-400); Red Blood Count 2.64 10^6/uL (4.1-5.3); Red Cell Distribution Width 15.4 % (12.1-15.1); White Blood Count 9.9 10^3/uL (4.0-10.0)
[2019-12-11 06:10] LABS: Alanine Aminotransferase 10 U/L (0-33); Albumin Level 2.4 g/dL (3.5-5.2); Alkaline Phosphatase 59 IU/L (35-105); Anion Gap 13.6 (5-19); Aspartate Amino Transferase 11 U/L (0-32); Blood Urea Nitrogen 3 mg/dL (8-23); Carbon Dioxide 26 mmol/L (22-29); Chloride 101 mmol/L (98-107); Globulin 2.4 g/dL (1.3-4.6); Glomerular Filtration Rate 123.8 mL/min (90-130); Glucose 113 mg/dL (65-115); Osmolality Calculated 283 mOsm/kg (285-295); Sodium 138 mmol/L (136-145); Total Bilirubin 0.3 mg/dL (0.15-1.2); Total Protein 4.8 g/dL (6.6-8.7)
[2019-12-11 06:13] LABS: Potassium 2.6 mmol/L (3.5-5.1)
[2019-12-11 06:33] LABS: Glucose Point of Care 130 mg/dL (70-110)
--- NOTE | 2019-12-11 07:07 | ANE.PACU2 ---
Inpatient post-anesthesia follow up: Airway intact: Yes Vital signs: Temperature 97.7 F Pulse Rate [Monito r] 106 Pulse Rate 108 Respiratory Rate 18 Blood Pressure [Le ft Arm] 134/93 Blood Pressure 165/77 Pulse Oximetry 95 Oxygen Delivery Me thod Room Air Oxygen Flow Rate 3 Fraction of Inspir ed Oxygen 2 Hydration adequate: Yes Nausea and vomiting: Yes Pain level: 2 Mental status: Baseline
--- NOTE | 2019-12-11 07:48 | PC.NUTR ---
NUTR TF RECOMMENDATIONS: Glucerna continuous with a goal rate of 50 ml/hr providing 1440 kcal (89%), 72 g PRO (91%), and 966 ml fluid (60%)(%NEEDS). Suggest starting TF at 20 ml/hr and increase by 10 ml Q6H as tolerated till goal rate is met. Suggest H2O flushes of 90 ml Q4H to approach fluid needs or per physician. BOLUS: 5 cans daily total between 3 meals with 3/4 cup H2O flushes after each feeding.
[2019-12-11] MEDS: potassium chloride oral liq 20 mEq/15 mL UDC PO (08:35)
[2019-12-11] MEDS: magnesium oxide 400 mg tablet PO ×2 (08:37→17:25)
[2019-12-11] MEDS: potassium chloride ER 10 mEq Tablet 40 MEQ PO (08:37)
[2019-12-11] MEDS: spironolactone 25 mg Tablet 50 MG PO (08:37)
[2019-12-11] MEDS: levothyroxine 150 mcg Tablet 75 MCG OG-TUBE (08:37)
[2019-12-11] MEDS: amlodipine 5 mg Tablet PO (08:37)
[2019-12-11] MEDS: aspirin 81 mg Chew Tablet PO (08:37)
[2019-12-11] MEDS: predniSONE 10 mg Tablet PO (08:37)
[2019-12-11] MEDS: venlafaxine 75 mg Tablet PO ×2 (09:57→17:25)
--- NOTE | 2019-12-11 10:41 | PC.NURSE ---
pt has been told she npo. pt still is trying to drink regardless
[2019-12-11] MEDS: ALPRAZolam 0.25 mg Tablet PO ×2 (10:56→20:50)
--- NOTE | 2019-12-11 11:47 | PM.PN ---
Subjective Subjective: Interval history: No acute overnight events, hypokalemia this morning. Starting tube feeds today. Leukocytosis is resolved. Medications: Reviewed: Yes Medication Review Details: Current Medications Acetaminophen (Tylenol) 650 mg AK Q6H PRN PRN Reason: Fever or mild pain Last Admin: 12/03/19 02:06 Dose: 650 mg Documented by: Albuterol/Ipratropium (Duoneb) 3 ml INHALATION Q6H.RESPIRATORY MICHELLE Last Admin: 12/07/19 03:00 Dose: 3 ml Documented by: Aspirin (Aspirin Chewable) 81 mg PO DAILY MICHELLE Last Admin: 12/06/19 08:17 Dose: 81 mg Documented by: Atorvastatin Calcium (Lipitor) 80 mg OG-TUBE QPM MICHELLE Last Admin: 12/06/19 18:08 Dose: 80 mg Documented by: Dextrose (D50w) 25 ml IVP ONCE PRN; Protocol PRN Reason: hypoglycemia protocol Dextrose (D50w) 50 ml IVP PRN PRN; Protocol PRN Reason: hypoglycemia protocol Enoxaparin Sodium (Lovenox) 40 mg SUBCUT Q24H MICHELLE Last Admin: 12/06/19 22:44 Dose: 40 mg Documented by: Glucagon (Glucagen) 1 mg IM ONCE PRN; Protocol PRN Reason: Adult Acute Hypoglycemia Prot. Levofloxacin/Dextrose (Levaquin-D5w) 750 mg in 150 mls @ 100 mls/hr IV Q24H MICHELLE; Protocol Last Admin: 12/06/19 21:10 Dose: 100 mls/hr Documented by: Propofol (Diprivan) 1,000 mg in 100 mls @ 0 mls/hr IV .Q0M MICHELLE; Protocol Last Admin: 12/06/19 07:21 Dose: 106.84 mcg/kg/min, 50 mls/hr Documented by: Norepinephrine Bitartrate 8 mg (/ Dextrose) 508 mls @ 0 mls/hr IV .Q0M MICHELLE; Protocol Insulin Aspart (Novolog) 0 unit SUBCUT WM&BEDTIME MICHELLE; Protocol Last Admin: 12/06/19 20:46 Dose: Not Given Documented by: Insulin Detemir (Levemir) 5 unit SUBCUT Q12H MICHELLE Last Admin: 12/06/19 21:10 Dose: 5 unit Documented by: Levothyroxine Sodium (Synthroid) 75 mcg OG-TUBE DAILY MICHELLE Last Admin: 12/06/19 08:16 Dose: 75 mcg Documented by: Ondansetron HCl (Zofran) 4 mg IVP Q6H PRN PRN Reason: NAUSEA AND VOMITING Pantoprazole Sodium (Protonix) 40 mg IVP DAILY [facility] Last Admin: 12/06/19 08:17 Dose: 40 mg Documented by: Vancomycin HCl (Vancocin) 250 mg XX QID [facility] Last Admin: 12/06/19 21:09 Dose: 250 mg Documented by: Venlafaxine HCl (Effexor) 75 mg PO BID [facility] Last Admin: 12/06/19 18:08 Dose: 75 mg Documented by: Vitals/I&O/Wt Last Vital Signs Temp 98.6 F 12/11/19 11:46 Pulse 90 12/11/19 11:46 Resp 18 12/11/19 11:46 BP 153/80 12/11/19 11:46 Pulse Ox 91 12/11/19 11:46 12/10/19 12/11/19 12/11/19 22:59 06:59 14:59 Output Total 600 / 1205 550 / 1755 100 / 100 Balance -600 / -1205 -550 / -1755 -100 / -100 Weight last 48 hrs Weight 75.387 kg Weight 72.892 kg Physical Exam Narrative: EXAM NARRATIVE: GEN: Awake, alert and oriented, no acute distress CVS: S1S2 N RS: CTA B/L Abd: Soft, nt/nd , bs+ Urinary Catheter Management^: Magana: Cath Placed During This Visit: yes Reason for Continuing Indwelling Catheter: Accurate Measurement of Urinary Output in Critically Ill Patients Urinary Catheter Date of Insertion: 12/02/19 Urinary Catheter Time of Insertion: 18:44 Data : 12/11/19 05:22 12/11/19 05:22 A&P Assessment and plan (1) Dysphagia: Status: Acute Additional A&P Information 64-year-old lady with a complicated past medical history currently admitted on 12/01 after presenting from home with confusion, weakness, diarrhea. He was intubated upon arrival. She was repeatedly falling at home. She was noted to have elevated d-dimer. Labs upon arrival were with a leukocytosis of 23.7, d-dimer 1.6, initial sodium of 107 which is corrected with hypertonic saline. Rapid COVID antigen and PCR test were negative. 258-1 # Significant hyponatremia Sodium 107 upon arrival, now has improved significantly. Now imrpoved. Had received hypertonic saline initially. Currently on salt tablets . Appreciate nephrology recommendations. CT of the head without any acute intracranial abnormalities. Past notes had detected possible adrenal insufficiency due to low levels of cortisol and abnormal ACTH suppression test. Her steroids were discontinued at some point. Completed methylprednisolone taper down from every 6 hours to every 12 hours on 12/05. Prednisone added at 10mg po daily. Reduce to 5 mg p.o. daily there has been noticeable difference in patient's mentation and level of agility since adding steroids. Patient was able to get out of bed today and ambulate to the bathroom and has also ambulated to the bedside commode. Currently TSH is at 0.42, random cortisol at 17.06 (tested on steroids) #Acute respiratory failure requiring intubation and mechanical ventilatory support upon admission. Appears to be multifactorial. Patient may have suffered a low respiratory drive from the hyponatremia versus some degree of aspiration is also possible. Serial chest x-rays have shown patchy infiltrates in bilateral lungs. CTA with B/L nonspecific GGOS, likely to represent fluid given overall clinical picture. No PE Alternate differentials include flash pulmonary edema given elevated BNP and bilateral exudates. She has a h/o FRANKY and wears a bipap at home, likely this contributed with a depressed mental status from hyponatremia. Discontinue Levaquin. Completed empiric course of antibiotics for possible pneumonia. Blood culture 2 of 4 bottles from the same set reported as positive for corynebacterium and CoNs, represent contaminants. Repeat blood cx from 12/02 with no growth thus far. # Sepsis : as evidenced by leukocytosis, hypoxia, lactic acidosis, tachycardia Rapid COVID-19 screen negative, influenza negative, PCR COVID-19 test negative urine legionella Ag negative C diff PCR+, started po vancomycin received empiric pneumonia rx leukocytosis trending down #Acute encephalopathy: -Per has had gradually declining mental status for several months, worsening over the past few days which could be at least in part secondary to degree of hyponatremia -This is now resolved and patient's mental status is back to baseline. # Hypertension: -Monitor vital signs --Systolic blood pressure ranging between 150s to 160s. Continue amlodipine 5 mg, beter controlled now . Spironolactone added per nephrology recommendations, also help with recurrent hypokalemia # Insulin dependent type 2 diabetes mellitus: -Complicated by gastroparesis -Insulin has been on hold as patient has had very poor p.o. intake and had some episodes of hypoglycemia. Her A1c additionally currently is at 6.7. #Hypokalemia: -Replace as needed -Continue to monitor #Hypomagnesemia replaced with IV. #Oropharyngeal dysphasia of unclear etiology. 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 Will need further evaluation of dysphagia as outpatient. For now significant laryngeal penetration noted on swallow evaluations and also on modified barium swallow. s/p PEG placement 12/09. Per patient has not been eating well since at least 3-4 months, also here noted to fail swallow eval at least twice this admission.Only taking ensure at home. she has lost approximately 20 kg unintentionally since march per review of weights charted in the system. has noticed several episodes of aspiration at home. This could have been contributing to her significant electrolyte abnormalities as an outpatient. s/p PEG on 12/09 Glucerna continuous with a goal rate of 50 ml/hr providing 1440 kcal (89%), 72 g PRO (91%), and 966 ml fluid (60%)(%NEEDS). Suggest starting TF at 20 ml/hr and increase by 10 ml Q6H as tolerated till goal rate is met. H2O flushes of 90 ml Q4H. Dispo: SNF was recommended due to severe deconditioning, however both patient and patient's are against going to SNF and she will be leaving home with home health services. May be able to discharge in the upcoming 24 hours if tolerates tube feeds. ppx: Lovenox Attestations Medical Necessity Statement*: Likely discharge in the upcoming 24 hours once tolerates tube feed, home health services have been arranged for the same. 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
--- NOTE | 2019-12-11 12:14 | DCPLANNER ---
Pg 2 of IM updated and reviewed with pt. No questions.
[2019-12-11] MEDS: potassium chloride oral liq 20 mEq/15 mL UDC 40 MEQ PO (13:29)
[2019-12-11] MEDS: TRAMadol 50 mg Tablet PO ×2 (13:38→20:50)
--- NOTE | 2019-12-11 15:17 | PC.NURSE ---
Addendum entered by Aliya Vega RN 12/11/19 15:21: late entry Original Note: Dr. Yi sprinkler driver ordered 40 meq potassium chloride once for pt low potassium of 2.6.
--- NOTE | 2019-12-11 15:21 | PC.NURSE ---
Dr. Floyd ordered glucerna continuous 20ml/hr with increase of 10ml/hr every 6 hours. 90 ml flush Q4H. Goal rate of 50 ml/hr.
--- NOTE | 2019-12-11 15:38 | PM.PN ---
Subjective Subjective: Interval history: I am seeing her in follow up for her hypokalemia & hyponatremia. No nausea, vomiting or diarrhea Medications: Reviewed: Yes Vitals/I&O/Wt Last Vital Signs Temp 98.3 F 12/11/19 15:09 Pulse 84 12/11/19 15:09 Resp 18 12/11/19 15:09 BP 124/76 12/11/19 15:09 Pulse Ox 95 12/11/19 15:09 12/11/19 12/11/19 12/11/19 06:59 14:59 22:59 Intake Total 120 / 120 Output Total 550 / 1755 100 / 100 Balance -550 / -1755 Weight last 48 hrs Weight 75.387 kg Weight 72.892 kg Physical Exam Const: COMMON NORMALS: no acute distress and patient oriented x3 GENERAL APPEARANCE: cooperative and comfortable ORIENTATION/CONSCIOUSNESS: Yes awake Resp: COMMON NORMALS: clear to auscultation bilaterally AUSCULTATION: clear to auscultation bilaterally Cardio: COMMON NORMALS: S1 normal heart sound present and S2 normal heart sound present HEART SOUNDS: S1 normal heart sound present and S2 normal heart sound present GI: AUSCULTATION: Yes normoactive bowel sounds Extremity: GENERAL: Yes edema Neuro: COMMON NORMALS: patient oriented x3 Skin: COMMON NORMALS: no rashes or lesions noted GENERAL SKIN EXAM: no rashes or lesions noted Urinary Catheter Management^: Magana: Cath Placed During This Visit: yes Reason for Continuing Indwelling Catheter: Accurate Measurement of Urinary Output in Critically Ill Patients Urinary Catheter Date of Insertion: 12/02/19 Urinary Catheter Time of Insertion: 18:44 Data : 12/11/19 05:22 12/11/19 05:22 A&P Assessment and plan (1) Hyponatremia: Sodium level back to normal. 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
[2019-12-11] MEDS: ipratropium-albuterol 3 mL Neb INHALATION (16:34)
--- NOTE | 2019-12-11 16:35 | PC.NURSE ---
Discussed with steps of bolus feedings. verbalized understanding and all questions were answered.
[2019-12-11] MEDS: atorvastatin 40 mg Tablet 80 MG OG-TUBE (17:25)
--- NOTE | 2019-12-11 18:06 | PC.NURSE ---
shift summary Pt awake most the day. Pt requesting water often although NPO. Pt received mouth swabs and slept most the afternoon. Pt started continuous glucerna feeding at 20 ml/hr at noon. Pt. potassium 2.6. Pt received one time 40 meq of potassium chloride ordered by Dr. Yi. Pt resting in bed at this time.
[2019-12-11 20:39] LABS: Glucose Point of Care 128 mg/dL (70-110)
[2019-12-11] MEDS: enoxaparin 40 mg/0.4 mL Syringe SUBCUT (22:12)
[2019-12-12] VITALS (12 sets, daily range): BP systolic 114–165; BP diastolic 62–80; PULSE 76–108; RESP 15–18; TEMP 36.5–37; O2SAT 95–98
[2019-12-12 00:28] LABS: Glucose Point of Care 135 mg/dL (70-110)
[2019-12-12] MEDS: haloperidol inj 5 mg/mL INJ 1 mL IM ×2 (00:28→23:28)
[2019-12-12] MEDS: morphine 4 mg/mL SDV 1 mL 1 MG IVP ×3 (02:22→11:43)
[2019-12-12] MEDS: pantoprazole 40 mg SDV IVP ×2 (04:24→16:00)
[2019-12-12] MEDS: TRAMadol 50 mg Tablet PO ×3 (04:24→22:28)
[2019-12-12 05:34] LABS: Basophils % 0.1 %; Eosinophils # 0.1 10^3/uL (0.0-0.8); Eosinophils % 0.9 %; Hematocrit 24.9 % (37.0-47.0); Hemoglobin 8.1 g/dL (11.5-15.3); Lymphocytes # 3.1 10^3/uL (0.8-4.8); Lymphocytes % 20.2 %; Mean Corpuscular HGB Conc 32.5 g/dL (30.0-36.0); Mean Corpuscular Hemoglobin 28.2 pg (28.0-34.0); Mean Corpuscular Volume 86.8 fL (81-99); Monocytes # 1.7 10^3/uL (0.2-0.9); Neutrophils # 10.28 10^3/uL (1.8-7.7); Nucleated Red Blood Cells % 0 %; Platelet Count 344 10^3/cmm (130-400); Red Blood Count 2.87 10^6/uL (4.1-5.3); Red Cell Distribution Width 15.4 % (12.1-15.1); White Blood Count 15.4 10^3/uL (4.0-10.0)
[2019-12-12 05:52] LABS: Alanine Aminotransferase 11 U/L (0-33); Albumin Level 2.6 g/dL (3.5-5.2); Alkaline Phosphatase 76 IU/L (35-105); Anion Gap 11.7 (5-19); Aspartate Amino Transferase 12 U/L (0-32); Blood Urea Nitrogen 4 mg/dL (8-23); Calcium 7.8 mg/dL (8.5-10.5); Carbon Dioxide 26 mmol/L (22-29); Chloride 98 mmol/L (98-107); Globulin 2.6 g/dL (1.3-4.6); Glomerular Filtration Rate 100.3 mL/min (90-130); Glucose 143 mg/dL (65-115); Osmolality Calculated 273 mOsm/kg (285-295); Potassium 3.7 mmol/L (3.5-5.1); Sodium 132 mmol/L (136-145); Total Bilirubin 0.3 mg/dL (0.15-1.2); Total Protein 5.2 g/dL (6.6-8.7)
[2019-12-12 06:31] LABS: Glucose Point of Care 157 mg/dL (70-110)
[2019-12-12] MEDS: ALPRAZolam 0.25 mg Tablet PO ×2 (08:00→16:12)
--- NOTE | 2019-12-12 08:15 | PC.NURSE ---
Patient demanding a drink of water, reinstructed on NPO status and reasoning, verbalized understanding. Alert and oriented, increased anxiety noted, xanax given per doctors orders, see MAR for further details.
[2019-12-12] MEDS: amlodipine 5 mg Tablet PO (11:14)
[2019-12-12] MEDS: levothyroxine 150 mcg Tablet 75 MCG OG-TUBE (11:14)
[2019-12-12] MEDS: aspirin 81 mg Chew Tablet PO (11:14)
[2019-12-12] MEDS: magnesium oxide 400 mg tablet PO ×2 (11:14→17:32)
[2019-12-12] MEDS: spironolactone 25 mg Tablet 50 MG PO (11:14)
[2019-12-12] MEDS: predniSONE 10 mg Tablet 5 MG PO (11:15)
[2019-12-12] MEDS: potassium chloride oral liq 20 mEq/15 mL UDC PO (11:15)
[2019-12-12] MEDS: venlafaxine 75 mg Tablet PO ×2 (11:20→17:33)
--- NOTE | 2019-12-12 13:42 | P.DS_ITS ---
Discharge Providers Date of Admission: 12/02/19 18:25 Date of Discharge: December 12, 2019 Attending Provider at Admission: Ana Pringle MD Attending Provider at Discharge: Sammy Evans Primary Care Provider: KATRINA Cash Diagnoses at Discharge Discharge Diagnosis (1) Dysphagia: Status: Acute Reason for Visit Reason for Visit: [facility] Hospital Course Discharge Summary: 64-year-old lady with a complicated past medical history currently admitted on 12/01 after presenting from home with confusion, weakness, diarrhea. He was intubated upon arrival. She was repeatedly falling at home. She was noted to have elevated d-dimer. Labs upon arrival were with a leukocytosis of 23.7, d-dimer 1.6, initial sodium of 107 which is corrected with hypertonic saline. Rapid COVID antigen and PCR test were negative. discharge diagnoses and problem list Acute metabolic encephalopathy probably secondary to severe hyponatremia. Currently resolved. Acute on chronic generalized deconditioning and debilitated state. Unfortunately the patient refused senior living facility placement. She states that she wants to go home. She states that her can help her. She states that she is getting stronger every day. However she also reports that if she feels that she still needs help in the future she will speak with her primary care physician.home health care is arranged by the case management. Diarrhea secondary to C. difficile. Currently resolving. She reports significant improvement of her symptoms. She denies any rectal blood, abdominal pain, fever or chills. She is being discharged on by mouth vancomycin for additional 8 days. Hyponatremia, severe. Probably multifactorial including home medications, dehydration, diarrhea. Currently significantly improved. Dictations are adjusted. Close outpatient monitoring is recommended. This was discussed in length with the patient. She verbalized understanding and agreement. She is currently on tube feeds. Dysphasia. Exact cause is unknown. There is a possibility of prior stroke or GI dysmotility versus gastroparesis. She is on Reglan at home. In any case she will require additional workup and evaluations. She needs to be seen by GI specialist, neurologist, ENT specialist. Her primary care physician is with [facility]. I asked her to speak with the primary care physician and request for appropriate referrals. She verbalized understanding and agreement. She promised to see her primary care physician this week. hypokalemia. Replaced. Further monitoring and replacement is recommended. Acute respiratory failure present on admission probably secondary to aspiration pneumonia. Was intubated and then extubated. Currently stable. No respiratory complaints. I'll follow antibiotics. Suspected adrenal insufficiency. The patient is being discharged on by mouth steroids. Prescription is provided for 2 weeks. In the meantime the patient will need to be seen and evaluated by her primary care physician. At that point a decision should be made on long-term management. Additionally patient will probably need to be evaluated by an commercial attache. Referral should be provided by the primary care physician. This was discussed with the patient. She verbalized consent and agreement. Diabetes. Home medication is resumed. Outpatient follow-up with the primary care physician. Hypertension. Currently well controlled. Continue current management. Leukocytosis. I suspect this is secondary to steroids. Continue monitoring. No evidence of uncontrolled infection at this time. Overall the patient is feeling much better. She is eager to go home. She denies active complaints. She denies any fever or chills, shortness of breath, chest pain, cough, palpitations, nausea or vomiting, abdominal pain, rectal blood. As mentioned above her diarrhea is improving significantly. Physical Exam Narrative: EXAM NARRATIVE: the patient is awake alert and oriented. No acute distress. Mood and affect are appropriate. Responses are adequate. A febrile, blood pressure 132/80, pulse 87, respiratory rate 15, oxygen saturation 95% on room air. Skin is warm and dry. Moist mucous membranes. Neck is supple. No JVD Lungs clear bilaterally. No respiratory distress Heart S1, S2, regular Abdomen soft, nontender, bowel sounds are present, no guarding. Extremities trace edema no cyanosis tenderness bilaterally Normal speech. Cranial nerves II-12 are grossly intact. Urinary Catheter Management^: Magana: Reason for Continuing Indwelling Catheter: Accurate Measurement of Urinary Output in Critically Ill Patients Urinary Catheter Date of Insertion: 12/02/19 Urinary Catheter Time of Insertion: 18:44 Discharge Data Data Completed and Pending: Completed Studies During Hospitalization Category Date Time Status CT angio chest PE protcl 03216 Rout ine Cat Scan 12/05/19 13:[address] head wo con* 7 0450 Stat Cat Scan 12/02/19 18:53 Completed [place] barium swallow modifd 58042 Rout ine Exams 12/08/19 11:10 Completed XR chest 1V eduardo ble [id number] Routine Exams 12/03/19 06:00 Completed XR chest 1V eduardo ble [id number] Routine Exams 12/04/19 07:00 Completed XR chest 1V eduardo ble [id number] Routine Exams 12/05/19 07:00 Completed XR chest 1V eduardo ble [id number] Stat Exams 12/02/19 16:18 Completed XR chest 1V eduardo ble [id number] Stat Exams 12/02/19 21:59 Completed CV echo complete* [id number] Routine Ultrasound 12/04/19 20:50 Completed Pending at discharge Category Date Time Status CMP [Comprehensiv e Metabolic Panel] AM LABS Lab 12/13/19 04:00 Ordered Complete Blood Co unt w/Auto AM LABS Lab 12/13/19 04:00 Ordered Labs from last 24 hours 12/12/19 12/12/19 12/12/19 06:26 05:00 05:00 WBC 15.4 H RBC 2.87 L Hgb 8.1 L Hct 24.9 L MCV 86.8 MCH 28.2 MCHC 32.5 RDW 15.4 H Plt Count 344 MPV 9.0 Neut % (Auto) 67.0 Lymph % (Auto) 20.2 Craig % (Auto) 11.0 Eos % (Auto) 0.9 Baso % (Auto) 0.1 Neut # (Auto) 10.28 H Lymph # (Auto) 3.1 Craig # (Auto) 1.7 H Eos # (Auto) 0.1 Baso # (Auto) 0.0 Nucleated RBC % (a uto) 0 Nucleated RBCs # 0.0 Sodium 132 L Potassium 3.7 Chloride 98 Carbon Dioxide 26 Anion Gap 11.7 BUN 4 L Creatinine 0.6 GFR Calculation 100.3 Glucose 143 H POC Glucose 157 Calculated Osmolal ity 273 L Calcium 7.8 L Total Bilirubin 0.3 AST 12 ALT 11 Alkaline Phosphata se 76 Total Protein 5.2 L Albumin 2.6 L Globulin 2.6 12/12/19 12/11/19 00:26 20:34 WBC RBC Hgb Hct MCV MCH MCHC RDW Plt Count MPV Neut % (Auto) Lymph % (Auto) Craig % (Auto) Eos % (Auto) Baso % (Auto) Neut # (Auto) Lymph # (Auto) Craig # (Auto) Eos # (Auto) Baso # (Auto) Nucleated RBC % (a uto) Nucleated RBCs # Sodium Potassium Chloride Carbon Dioxide Anion Gap BUN Creatinine GFR Calculation Glucose POC Glucose 135 128 Calculated Osmolal ity Calcium Total Bilirubin AST ALT Alkaline Phosphata se Total Protein Albumin Globulin Vitals: Last Vital Signs Temp 97.7 F 12/12/19 11:53 Pulse 87 12/12/19 11:53 Resp 15 12/12/19 11:53 BP 132/80 12/12/19 11:53 Pulse Ox 95 12/12/19 11:53 Discharge Plan Discharge Patient Disposition: Home Health Service Condition: Stable Prescriptions: New prednisone 10 mg Tablet 5 mg PO DAILY 14 Days RF: 0 vancomycin 1,000 mg Recon Soln 250 mg XX QID 8 Days RF: 0 spironolactone 25 mg Tablet 50 mg PO DAILY 30 Days RF: 0 Continued venlafaxine [Effexor XR] 150 mg capsule,extended release 24hr 150 mg PO DAILY Qty: 30 RF: 2 metoclopramide HCl [Reglan] 5 mg tablet 5 mg PO .qac Qty: 90 RF: 0 atorvastatin 80 mg Tablet 80 mg PO QPM RF: 0 aspirin [Aspir-81] 81 mg Tablet,Delayed Release (Dr/Ec) 81 mg PO DAILY RF: 0 levothyroxine 75 mcg Tablet 75 mcg PO DAILY RF: 0 pantoprazole 40 mg Tablet,Delayed Release (Dr/Ec) 40 mg PO DAILY RF: 0 lidocaine 5 % Adhesive Patch,Medicated 1 patch TOPICAL PRN PRN (Reason: Pain) RF: 0 metoprolol tartrate 50 mg Tablet 25 mg PO BID RF: 0 magnesium oxide 400 mg (241.3 mg magnesium) Tablet 400 mg PO BID Qty: 60 RF: 0 glimepiride 4 mg Tablet 2 mg PO DAILY Qty: 15 RF: 0 Discontinued quetiapine [Seroquel] 50 mg tablet 50 mg PO BEDTIME Qty: 30 RF: 2 trazodone 150 mg tablet 150 mg PO BEDTIME Qty: 30 RF: 2 hydroxyzine pamoate [Vistaril] 50 mg capsule 50 mg PO BID PRN (Reason: unknown) Qty: 60 RF: 2 insulin aspart U-100 [Novolog Flexpen U-100 Insulin] 100 unit/mL (3 mL) Insulin Pen See Rx Instructions .ROUTE .COMPLEX Qty: 0 RF: 0 acetaminophen [Tylenol Extra Strength] 500 mg Tablet 1,000 mg PO PRN RF: 0 vancomycin 125 mg capsule See Rx Instructions .ROUTE .COMPLEX Qty: 48 RF: 0 amlodipine 10 mg Tablet 10 mg PO DAILY Qty: 30 RF: 0 furosemide 40 mg Tablet 20 mg PO EVERY OTHER DAY Qty: 15 RF: 0 NormaLyte ORS 1.3-1.45-0.75 gram/10.5 gram powder in packet See Rx Instructions .ROUTE .COMPLEX Qty: 288 RF: 0 Discharge Orders: Discharge Order (Routine); Ordered 12/12/19 Ordered By: Sammy Evans Other Ambulatory Orders: Basic Metabolic Panel (Routine) Timeframe: 3 Days Facility: [facility] - Location: Lab - Main Lab Ordered By: Sammy Evans Complete Blood Count w/Auto (Routine) Timeframe: 3 Days Location: Determined by Patient Ordered By: Sammy Evans Referrals: [facility] [Outside] Thu Flores FNP [Primary Care Provider] - 12/21/19 9:00 am (You have a physician phone visit on at 9:00am. They will call you at home.) Discharge Diet: Start new tube feeds as directed Discharge Activity: Increase activity as tolerated Patient Instructions: Clostridium Difficile, Spironolactone (By mouth), Prednisone (By mouth), Vancomycin (By mouth), How to Use and Care for Your PEG Tube (GEN), Hyponatremia (DC), Aspiration Pneumonia (DC), Chronic Dysphagia (DC), Tube Feeding (GEN) Activity Restrictions/Additional Instructions: please see your primary care physician as soon as possible, preferably this week. Please ask for the following referrals from your primary care physician: GI doctor, ENT doctor, endocrinology DrGautam, and probably a urologist. He will need additional workup to understand what is the cause of your dysphasia ( problems with swallowing). It can be from number of different reasons. Please do not eat since the risk of aspiration is very high. Please come back to emergency room if you develop any worsening of your diarrhea, any abdominal pain, nausea or vomiting, fever or chills, chest pain, shortness of breath, cough, palpitations, confusion, weakness, or any other new complaints. Ask your doctor to monitor your sodium level. It was very low when you presented. Discharge Attestations 2 Time Spent in Discharge Care*: greater than 30 min Status at Discharge: Cognitive status at discharge: cognitively intact , Behavioral status at discharge: cooperative , Quality Metrics Clinical Quality Measures During this hospital stay, did patient experience: None Coding Level of Care Code Acute Photoengraving Photographer for Chg Fwd Diagnoses Dysphagia R13.10
[2019-12-12] MEDS: ipratropium-albuterol 3 mL Neb INHALATION (15:02)
[2019-12-12 15:07] LABS: Glucose Point of Care 225 mg/dL (70-110)
[2019-12-12] MEDS: atorvastatin 40 mg Tablet 80 MG OG-TUBE (17:33)
[2019-12-12 19:57] LABS: Glucose Point of Care 200 mg/dL (70-110)
[2019-12-12] MEDS: enoxaparin 40 mg/0.4 mL Syringe SUBCUT (22:13)
[2019-12-13] VITALS (8 sets, daily range): BP systolic 129–155; BP diastolic 68–83; PULSE 80–100; RESP 16–20; TEMP 36.3–36.6; O2SAT 92–98; BMI 28.7
[2019-12-13 01:00] LABS: Glucose Point of Care 166 mg/dL (70-110)
[2019-12-13] MEDS: ALPRAZolam 0.25 mg Tablet PO ×3 (05:19→21:04)
[2019-12-13] MEDS: TRAMadol 50 mg Tablet PO ×3 (05:19→21:04)
[2019-12-13] MEDS: pantoprazole 40 mg SDV IVP ×2 (05:19→18:13)
[2019-12-13 06:04] LABS: Basophils % 0.2 %; Eosinophils # 0.1 10^3/uL (0.0-0.8); Eosinophils % 0.8 %; Hematocrit 25.1 % (37.0-47.0); Hemoglobin 8.3 g/dL (11.5-15.3); Lymphocytes # 2.6 10^3/uL (0.8-4.8); Lymphocytes % 21.4 %; Mean Corpuscular HGB Conc 33.1 g/dL (30.0-36.0); Mean Corpuscular Hemoglobin 28.3 pg (28.0-34.0); Mean Corpuscular Volume 85.7 fL (81-99); Mean Platelet Volume 9.4 fL (7.4-10.4); Monocytes # 1.4 10^3/uL (0.2-0.9); Monocytes % 11.7 %; Neutrophils # 7.92 10^3/uL (1.8-7.7); Neutrophils % 65.2 %; Nucleated Red Blood Cells % 0 %; Platelet Count 343 10^3/cmm (130-400); Red Blood Count 2.93 10^6/uL (4.1-5.3); Red Cell Distribution Width 15.3 % (12.1-15.1); White Blood Count 12.1 10^3/uL (4.0-10.0)
[2019-12-13 06:25] LABS: Glucose Point of Care 165 mg/dL (70-110)
[2019-12-13 06:39] LABS: Alanine Aminotransferase 11 U/L (0-33); Albumin Level 2.8 g/dL (3.5-5.2); Alkaline Phosphatase 95 IU/L (35-105); Anion Gap 14.7 (5-19); Aspartate Amino Transferase 10 U/L (0-32); Blood Urea Nitrogen 4 mg/dL (8-23); Calcium 8.5 mg/dL (8.5-10.5); Carbon Dioxide 27 mmol/L (22-29); Chloride 97 mmol/L (98-107); Globulin 2.8 g/dL (1.3-4.6); Glomerular Filtration Rate 100.3 mL/min (90-130); Glucose 166 mg/dL (65-115); Osmolality Calculated 281 mOsm/kg (285-295); Potassium 3.7 mmol/L (3.5-5.1); Sodium 135 mmol/L (136-145); Total Bilirubin 0.3 mg/dL (0.15-1.2); Total Protein 5.6 g/dL (6.6-8.7)
[2019-12-13] MEDS: venlafaxine 75 mg Tablet PO ×2 (09:02→18:14)
[2019-12-13] MEDS: potassium chloride oral liq 20 mEq/15 mL UDC PO (09:02)
[2019-12-13] MEDS: predniSONE 10 mg Tablet 5 MG PO (09:02)
[2019-12-13] MEDS: aspirin 81 mg Chew Tablet PO (09:02)
[2019-12-13] MEDS: levothyroxine 150 mcg Tablet 75 MCG OG-TUBE (09:02)
[2019-12-13] MEDS: magnesium oxide 400 mg tablet PO ×2 (09:02→18:13)
[2019-12-13] MEDS: amlodipine 5 mg Tablet PO (09:03)
[2019-12-13] MEDS: spironolactone 25 mg Tablet 50 MG PO (09:03)
[2019-12-13 11:52] LABS: Glucose Point of Care 215 mg/dL (70-110)
--- NOTE | 2019-12-13 14:29 | P.PN_ITS ---
Subjective Subjective: Interval history: No significant events. Still having loose stools. No nausea or vomiting. No abdominal pain. No cough, shortness of breath, fever or chills. Vitals/I&O/Wt Last Vital Signs Temp 97.6 F 12/13/19 12:00 Pulse 94 12/13/19 12:00 Resp 20 H 12/13/19 12:00 BP 131/82 12/13/19 12:00 Pulse Ox 96 12/13/19 12:00 12/12/19 12/13/19 12/13/19 22:59 06:59 14:59 Intake Total 820 / 820 Output Total 850 / 1350 450 / 1800 Balance -850 / -1350 370 / -980 Weight last 48 hrs Weight 73.573 kg Weight 73.573 kg Physical Exam Narrative: EXAM NARRATIVE: the patient is awake alert and oriented. No acute distress. Mood and affect are appropriate. Responses are adequate. Vital signs are reviewed and are stable Skin is warm and dry. Moist mucous membranes. Neck is supple. No JVD Lungs clear bilaterally. No respiratory distress Heart S1, S2, regular Abdomen soft, nontender, bowel sounds are present, no guarding. Extremities trace edema no cyanosis tenderness bilaterally Normal speech. Cranial nerves II-12 are grossly intact. Urinary Catheter Management^: Magana: Cath Placed During This Visit: yes, but has since been removed by the nurse Reason for Continuing Indwelling Catheter: Acute Urinary Retention or Obstruction Urinary Catheter Date of Insertion: 12/02/19 Urinary Catheter Time of Insertion: 18:44 Date Urinary Catheter Removed: 12/13/19 Time Urinary Catheter Discontinued: 15:00 Data : 12/13/19 05:30 12/13/19 05:30 A&P Assessment and plan (1) Dysphagia: Status: Acute Additional A&P Information 64-year-old lady with a complicated past medical history currently admitted on 12/01 after presenting from home with confusion, weakness, diarrhea. He was intubated upon arrival. She was repeatedly falling at home. She was noted to have elevated d-dimer. Labs upon arrival were with a leukocytosis of 23.7, d- dimer 1.6, initial sodium of 107 which is corrected with hypertonic saline. Rapid COVID antigen and PCR test were negative. 258-1 # Significant hyponatremia Sodium 107 upon arrival, now has improved significantly. Now imrpoved. Had received hypertonic saline initially. Currently on salt tablets . Appreciate nephrology recommendations. CT of the head without any acute intracranial abnormalities. Past notes had detected possible adrenal insufficiency due to low levels of cortisol and abnormal ACTH suppression test. Her steroids were discontinued at some point. Completed methylprednisolone taper down from every 6 hours to every 12 hours on 12/05. Prednisone added at 10mg po daily. Reduce to 5 mg p.o. daily there has been noticeable difference in patient's mentation and level of agility since adding steroids. Patient was able to get out of bed today and ambulate to the bathroom and has also ambulated to the bedside commode. Currently TSH is at 0.42, random cortisol at 17.06 (tested on steroids) #Acute respiratory failure requiring intubation and mechanical ventilatory support upon admission. Appears to be multifactorial. Patient may have suffered a low respiratory drive from the hyponatremia versus some degree of aspiration is also possible. Serial chest x-rays have shown patchy infiltrates in bilateral lungs. CTA with B/L nonspecific GGOS, likely to represent fluid given overall clinical picture. No PE Alternate differentials include flash pulmonary edema given elevated BNP and b ilateral exudates. She has a h/o FRANKY and wears a bipap at home, likely this contributed with a depressed mental status from hyponatremia. Discontinue Levaquin. Completed empiric course of antibiotics for possible pneumonia. Blood culture 2 of 4 bottles from the same set reported as positive for c orynebacterium and CoNs, represent contaminants. Repeat blood cx from 12/02 with no growth thus far. # Sepsis : as evidenced by leukocytosis, hypoxia, lactic acidosis, tachycardia Rapid COVID-19 screen negative, influenza negative, PCR COVID-19 test negative urine legionella Ag negative C diff PCR+, started po vancomycin received empiric pneumonia rx leukocytosis trending down #Acute encephalopathy: -Per has had gradually declining mental status for several months, worsening over the past few days which could be at least in part secondary to degree of hyponatremia -This is now resolved and patient's mental status is back to baseline. # Hypertension: -Monitor vital signs --Systolic blood pressure ranging between 150s to 160s. Continue amlodipine 5 mg, beter controlled now . Spironolactone added per nephrology recommendations, also help with recurrent hypokalemia # Insulin dependent type 2 diabetes mellitus: -Complicated by gastroparesis -Insulin has been on hold as patient has had very poor p.o. intake and had some episodes of hypoglycemia. Her A1c additionally currently is at 6.7. #Hypokalemia: -Replace as needed -Continue to monitor #Hypomagnesemia replaced with IV. #Oropharyngeal dysphasia of unclear etiology. 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 Will need further evaluation of dysphagia as outpatient. For now significant laryngeal penetration noted on swallow evaluations and also on modified barium swallow. s/p PEG placement 12/09. Per patient has not been eating well since at least 3-4 months, also here noted to fail swallow eval at least twice this admission.Only taking ensure at home. she has lost approximately 20 kg unintentionally since march per review of weights charted in the system. has noticed several episodes of aspiration at home. This could have been contributing to her significant electrolyte abnormalities as an outpatient. s/p PEG on 12/09 Glucerna continuous with a goal rate of 50 ml/hr providing 1440 kcal (89%), 72 g PRO (91%), and 966 ml fluid (60%)(%NEEDS). Suggest starting TF at 20 ml/hr and increase by 10 ml Q6H as tolerated till goal rate is met. H2O flushes of 90 ml Q4H. Dispo: SNF was recommended due to severe deconditioning, however both patient and patient's are against going to SNF and she will be leaving home with home health services. May be able to discharge in the upcoming 24 hours if tolerates tube feeds. ppx: Lovenox [place] Please see my discharge summary from yesterday for more details. Discharge was delayed due to need for some more time for discharge arrangements. Acute metabolic encephalopathy probably secondary to severe hyponatremia. Currently resolved. Acute on chronic generalized deconditioning and debilitated state. Unfo rtunately the patient refused senior care facility placement. She states that she wants to go home. She states that her can help her. She states that she is getting stronger every day. However she also reports that if she feels that she still needs help in the future she will speak with her primary care physician.home health care is arranged by the case management. Diarrhea secondary to C. difficile. Still is having several loose stools a day. Leukocytosis is improving. We will try small dose of Imodium. She denies any rectal blood, abdominal pain, fever or chills. She is being discharged on by mouth vancomycin for additional 8 days. Hyponatremia, severe. Probably multifactorial including home medications, dehydration, diarrhea. Currently significantly improved. Medications are adjusted. Close outpatient monitoring is recommended. This was discussed in length with the patient. She verbalized understanding and agreement. She is currently on tube feeds. Dysphasia. Exact cause is unknown. There is a possibility of prior stroke or GI dysmotility versus gastroparesis. She is on Reglan at home. In any case she will require additional workup and evaluations. She needs to be seen by GI specialist, neurologist, ENT specialist. Her primary care physician is with [place] [facility]. I asked her to speak with the primary care physician and request for appropriate referrals. She verbalized understanding and agreement. She promised to see her primary care physician this week. hypokalemia. Replaced. Further monitoring and replacement is recommended. Acute respiratory failure present on admission probably secondary to aspiration pneumonia. Was intubated and then extubated. Currently stable. No respiratory complaints. I'll follow antibiotics. Suspected adrenal insufficiency. The patient is being discharged on by mouth steroids. Prescription is provided for 2 weeks. In the meantime the patient will need to be seen and evaluated by her primary care physician. At that point a decision should be made on long-term management. Additionally patient will probably need to be evaluated by an dry chain puller. Referral should be provided by the primary care physician. This was discussed with the patient. She verbalized consent and agreement. Diabetes. Home medication is resumed. Outpatient follow-up with the primary care physician. Hypertension. Currently well controlled. Continue current management. Leukocytosis. I suspect this is secondary to steroids. Improving. Continue monitoring. No evidence of uncontrolled infection at this time. Attestations Medical Necessity Statement*: Being discharged home. Time spent on this discharge is 29 minutes. Coding Level of Care Code Acute Senior Center Director for Chg Fwd Diagnoses Dysphagia R13.10
--- NOTE | 2019-12-13 16:57 | DCPLANNER ---
Pg 2 of IM updated and reviewed with pt. No questions, copy provided.
[2019-12-13 17:08] LABS: Glucose Point of Care 185 mg/dL (70-110)
--- NOTE | 2019-12-13 18:10 | PC.NURSE ---
Yan Hilton, RN removed IJ per doctors orders with this nurse observing, tip intact, tolerated well.
[2019-12-13] MEDS: atorvastatin 40 mg Tablet 80 MG OG-TUBE (18:13)
[2019-12-13 21:05] LABS: Glucose Point of Care 168 mg/dL (70-110)
[2019-12-13] MEDS: enoxaparin 40 mg/0.4 mL Syringe SUBCUT (22:39)
[2019-12-14] VITALS (11 sets, daily range): BP systolic 137–156; BP diastolic 76–97; PULSE 68–111; RESP 17–18; TEMP 36.2–37; O2SAT 93–97; BMI 28.7
[2019-12-14] MEDS: TRAMadol 50 mg Tablet PO ×3 (03:01→18:57)
[2019-12-14] MEDS: ALPRAZolam 0.25 mg Tablet PO ×3 (05:45→23:14)
[2019-12-14 06:50] LABS: Glucose Point of Care 169 mg/dL (70-110)
[2019-12-14] MEDS: amlodipine 5 mg Tablet PO (10:14)
[2019-12-14] MEDS: aspirin 81 mg Chew Tablet PO (10:15)
[2019-12-14] MEDS: magnesium oxide 400 mg tablet PO ×2 (10:15→18:57)
[2019-12-14] MEDS: levothyroxine 150 mcg Tablet 75 MCG OG-TUBE (10:15)
[2019-12-14] MEDS: venlafaxine 75 mg Tablet PO ×2 (10:16→18:57)
[2019-12-14] MEDS: spironolactone 25 mg Tablet 50 MG PO (10:16)
[2019-12-14] MEDS: predniSONE 10 mg Tablet 5 MG PO (10:16)
[2019-12-14] MEDS: potassium chloride oral liq 20 mEq/15 mL UDC PO (10:16)
--- NOTE | 2019-12-14 13:44 | P.PN_ITS ---
Subjective Subjective: Interval history: No significant events. diarrhea continues improving. No nausea or vomiting. No abdominal pain. No cough, shortness of breath, fever or chills. Medications: Reviewed: Yes Medication Review Details: Generic Name Dose Route Start Last Admin Trade Name Freq PRN Reason Stop Dose Admin Acetaminophen 650 mg 12/02/19 20:50 12/08/19 15:01 Tylenol IA 650 mg Q6H PRN Administration Fever or mild shilpa n Albuterol/Ipratrop ium 3 ml 12/03/19 15:00 12/14/19 09:43 Duoneb INHALATION Not Given Q6H.RESPIRATORY S CH Amlodipine Besylat e 5 mg 12/08/19 09:00 12/14/19 10:14 Norvasc PO 5 mg DAILY MICHELLE Administration Aspirin 81 mg 12/04/19 10:00 12/14/19 10:15 Aspirin Chewable PO 81 mg DAILY MICHELLE Administration Atorvastatin Calci um 80 mg 12/03/19 18:00 12/13/19 18:13 Lipitor OG-TUBE 80 mg QPM MICHELLE Administration Dextrose 25 ml 12/02/19 20:50 12/07/19 23:26 D50w IVP 25 ml ONCE PRN Administration hypoglycemia prot ocol Protocol Enoxaparin Sodium 40 mg 12/05/19 23:00 12/13/19 22:39 Lovenox SUBCUT 40 mg Q24H MICHELLE Administration Haloperidol Lactat e 0.5 mg 12/07/19 15:03 12/12/19 23:28 Haldol Inj IM 0.5 mg Q8H PRN Administration AGITATION Levothyroxine Sodi um 75 mcg 12/03/19 09:00 12/14/19 10:15 Synthroid OG-TUBE 75 mcg DAILY MICHELLE Administration Magnesium Oxide 400 mg 12/09/19 18:00 12/14/19 10:15 Magox PO 400 mg BID MICHELLE Administration Morphine Sulfate 1 mg 12/10/19 16:44 12/12/19 11:43 Morphine IVP 1 mg Q4H PRN Administration SEVERE PAIN Pantoprazole Sodiu m 40 mg 12/10/19 17:00 12/14/19 05:44 Protonix IVP Not Given Q12H MICHELLE Potassium Chloride 20 meq 12/09/19 17:00 12/14/19 10:16 Potassium Chlori de Oral Liquid PO 20 meq DAILY MICHELLE Administration Prednisone 5 mg 12/12/19 09:00 12/14/19 10:16 Prednisone PO 5 mg DAILY MICHELLE Administration Spironolactone 50 mg 12/09/19 11:00 12/14/19 10:16 Aldactone PO 50 mg DAILY MICHELLE Administration Tramadol HCl 50 mg 12/10/19 16:44 12/14/19 10:28 Ultram PO 50 mg Q6H PRN Administration MODERATE PAIN Vancomycin HCl 250 mg 12/06/19 09:00 12/14/19 10:17 Vancocin XX 2.5 ml QID MCIHELLE Administration Venlafaxine HCl 75 mg 12/04/19 10:00 12/14/19 10:16 Effexor PO 75 mg BID MICHELLE Administration Vitals/I&O/Wt Last Vital Signs Temp 98.6 F 12/14/19 11:07 Pulse 90 12/14/19 13:17 Resp 17 12/14/19 13:17 BP 142/76 12/14/19 11:07 Pulse Ox 96 12/14/19 13:17 12/13/19 12/14/19 12/14/19 22:59 06:59 14:59 Output Total 500 / 500 Balance -500 / -500 Weight last 48 hrs Weight 73.573 kg Weight 73.573 kg Physical Exam 2 Narrative: EXAM NARRATIVE: the patient is awake alert and oriented. No acute distress. Mood and affect are appropriate. Responses are adequate. Vital signs are reviewed and are stable Skin is warm and dry. Moist mucous membranes. Neck is supple. No JVD Lungs clear bilaterally. No respiratory distress Heart S1, S2, regular Abdomen soft, nontender, bowel sounds are present, no guarding. Extremities trace edema no cyanosis tenderness bilaterally Normal speech. Cranial nerves II-12 are grossly intact. Urinary Catheter Management^: Magana: Cath Placed During This Visit: yes, but has since been removed by the nurse Reason for Continuing Indwelling Catheter: Acute Urinary Retention or Obstruction Urinary Catheter Date of Insertion: 12/02/19 Urinary Catheter Time of Insertion: 18:44 Date Urinary Catheter Removed: 12/13/19 Time Urinary Catheter Discontinued: 15:00 Data : 12/13/19 05:30 12/13/19 05:30 A&P Assessment and plan (1) Dysphagia: Status: Acute Additional A&P Information 64-year-old lady with a complicated past medical history currently admitted on 12/01 after presenting from home with confusion, weakness, diarrhea. He was intubated upon arrival. She was repeatedly falling at home. She was noted to have elevated d-dimer. Labs upon arrival were with a leukocytosis of 23.7, d- dimer 1.6, initial sodium of 107 which is corrected with hypertonic saline. Rapid COVID antigen and PCR test were negative. 258-1 # Significant hyponatremia Sodium 107 upon arrival, now has improved significantly. Now imrpoved. Had received hypertonic saline initially. Currently on salt tablets . Appreciate nephrology recommendations. CT of the head without any acute intracranial abnormalities. Past notes had detected possible adrenal insufficiency due to low levels of cortisol and abnormal ACTH suppression test. Her steroids were discontinued at some point. Completed methylprednisolone taper down from every 6 hours to every 12 hours on 12/05. Prednisone added at 10mg po daily. Reduce to 5 mg p.o. daily there has been noticeable difference in patient's mentation and level of agility since adding steroids. Patient was able to get out of bed today and ambulate to the bathroom and has also ambulated to the bedside commode. Currently TSH is at 0.42, random cortisol at 17.06 (tested on steroids) #Acute respiratory failure requiring intubation and mechanical ventilatory sup port upon admission. Appears to be multifactorial. Patient may have suffered a low respiratory drive from the hyponatremia versus some degree of aspiration is also possible. Serial chest x-rays have shown patchy infiltrates in bilateral lungs. CTA with B/L nonspecific GGOS, likely to represent fluid given overall clinical picture. No PE Alternate differentials include flash pulmonary edema given elevated BNP and bilateral exudates. She has a h/o FRANKY and wears a bipap at home, likely this contributed with a depressed mental status from hyponatremia. Discontinue Levaquin. Completed empiric course of antibiotics for possible pneumonia. Blood culture 2 of 4 bottles from the same set reported as positive for corynebacterium and CoNs, represent contaminants. Repeat blood cx from 12/02 with no growth thus far. # Sepsis : as evidenced by leukocytosis, hypoxia, lactic acidosis, tachycardia Rapid COVID-19 screen negative, influenza negative, PCR COVID-19 test negative urine legionella Ag negative C diff PCR+, started po vancomycin received empiric pneumonia rx leukocytosis trending down #Acute encephalopathy: -Per has had gradually declining mental status for several months, worsening over the past few days which could be at least in part secondary to degree of hyponatremia -This is now resolved and patient's mental status is back to baseline. # Hypertension: -Monitor vital signs --Systolic blood pressure ranging between 150s to 160s. Continue amlodipine 5 mg, beter controlled now . Spironolactone added per nephrology recommendations, also help with recurrent hypokalemia # Insulin dependent type 2 diabetes mellitus: -Complicated by gastroparesis -Insulin has been on hold as patient has had very poor p.o. intake and had some episodes of hypoglycemia. Her A1c additionally currently is at 6.7. #Hypokalemia: -Replace as needed -Continue to monitor #Hypomagnesemia replaced with IV. #Oropharyngeal dysphasia of unclear etiology. 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 Will need further evaluation of dysphagia as outpatient. For now significant laryngeal penetration noted on swallow evaluations and also on modified barium swallow. s/p PEG placement 12/09. Per patient has not been eating well since at least 3-4 months, also here noted to fail swallow eval at least twice this admission.Only taking ensure at home. she has lost approximately 20 kg unintentionally since march per review of weights charted in the system. has noticed several episodes of aspiration at home. This could have been contributing to her significant electrolyte abnormalities as an outpatient. s/p PEG on 12/09 Glucerna continuous with a goal rate of 50 ml/hr providing 1440 kcal (89%), 72 g PRO (91%), and 966 ml fluid (60%)(%NEEDS). Suggest starting TF at 20 ml/hr and increase by 10 ml Q6H as tolerated till goal rate is met. H2O flushes of 90 ml Q4H. Dispo: SNF was recommended due to severe deconditioning, however both patient and patient's are against going to SNF and she will be leaving home with home health services. May be able to discharge in the upcoming 24 hours if tolerates tube feeds. ppx: Lovenox [place] Please see my discharge summary for more details. Discharge was being delayed again due to need for some more time for discharge arrangements. Acute metabolic encephalopathy probably secondary to severe hyponatremia. Currently resolved. Acute on chronic generalized deconditioning and debilitated state. Unfortunately the patient refused fpc facility placement. She states that she wants to go home. She states that her can help her. She states that she is getting stronger every day. However she also reports that if she feels that she still needs help in the future she will speak with her primary care physician.home health care is arranged by the case management. Diarrhea secondary to C. difficile. Still is having several loose stools a day. Leukocytosis is improving. We will continue small dose of Imodium. She denies any rectal blood, abdominal pain, fever or chills. She is being discharged on by mouth vancomycin for additional 8 days. Hyponatremia, severe. Probably multifactorial including home medications, dehydration, diarrhea. Currently significantly improved. Medications are adjusted. Close outpatient monitoring is recommended. This was discussed in length with the patient. She verbalized understanding and agreement. She is currently on tube feeds.we'll recheck renal panel tomorrow morning. Dysphasia. Exact cause is unknown. There is a possibility of prior stroke or GI dysmotility versus gastroparesis. She is on Reglan at home. In any case she will require additional workup and evaluations. She needs to be seen by GI spe ciamarianna, neurologist, ENT specialist. Her primary care physician is with [facility]. I asked her to speak with the primary care physician and request for appropriate referrals. She verbalized understanding and agreement. She promised to see her primary care physician this week. hypokalemia. Replaced. Further monitoring and replacement is recommended. Acute respiratory failure present on admission probably secondary to aspiration pneumonia. Was intubated and then extubated. Currently stable. No respiratory complaints. I'll follow antibiotics. Suspected adrenal insufficiency. The patient is being discharged on by mouth steroids. Prescription is provided for 2 weeks. In the meantime the patient will need to be seen and evaluated by her primary care physician. At that point a decision should be made on long-term management. Additionally patient will probably need to be evaluated by an quality systems technician. Referral should be provided by the primary care physician. This was discussed with the patient. She verbalized consent and agreement. Diabetes. Home medication is resumed. Outpatient follow-up with the primary care physician. Hypertension. Currently well controlled. Continue current management. Leukocytosis. I suspect this is secondary to steroids. Improving. Continue monitoring. No evidence of uncontrolled infection at this time. Attestations Medical Necessity Statement*: discharge is pending. Waiting for arrangements for outpatient TF Nutrition. Coding Level of Care Code Acute Back Office Medical Assistant for Chg Fwd Diagnoses Dysphagia R13.10
[2019-12-14] MEDS: atorvastatin 40 mg Tablet 80 MG OG-TUBE (18:57)
[2019-12-14] MEDS: ipratropium-albuterol 3 mL Neb INHALATION (20:15)
[2019-12-14] MEDS: enoxaparin 40 mg/0.4 mL Syringe SUBCUT (23:12)
[2019-12-15] VITALS: BP 143/83; PULSE 82; RESP 17; TEMP 36.8; O2SAT 93
[2019-12-15] MEDS: TRAMadol 50 mg Tablet PO ×2 (01:43→11:15)
[2019-12-15 04:00] VITALS: BP 150/76; PULSE 91; RESP 16; TEMP 36.8; O2SAT 96
[2019-12-15 05:58] LABS: Basophils % 0.4 %; Eosinophils # 0.1 10^3/uL (0.0-0.8); Hematocrit 28.8 % (37.0-47.0); Hemoglobin 9.2 g/dL (11.5-15.3); Lymphocytes # 3.3 10^3/uL (0.8-4.8); Lymphocytes % 30.5 %; Mean Corpuscular HGB Conc 31.9 g/dL (30.0-36.0); Mean Corpuscular Hemoglobin 28.1 pg (28.0-34.0); Mean Corpuscular Volume 88.1 fL (81-99); Mean Platelet Volume 9.7 fL (7.4-10.4); Monocytes % 8.8 %; Neutrophils # 6.34 10^3/uL (1.8-7.7); Neutrophils % 58.9 %; Nucleated Red Blood Cells % 0 %; Platelet Count 405 10^3/cmm (130-400); Red Blood Count 3.27 10^6/uL (4.1-5.3); Red Cell Distribution Width 15.5 % (12.1-15.1); White Blood Count 10.8 10^3/uL (4.0-10.0)
[2019-12-15 06:28] LABS: Magnesium 1.4 mg/dL (1.7-2.3)
[2019-12-15 06:31] LABS: Albumin Level 3.1 g/dL (3.5-5.2); Anion Gap 19.5 (5-19); Blood Urea Nitrogen 7 mg/dL (8-23); Calcium 9.4 mg/dL (8.5-10.5); Carbon Dioxide 25 mmol/L (22-29); Chloride 90 mmol/L (98-107); Creatinine Clr Calc Pharmacy 66.9264; Glomerular Filtration Rate 100.3 mL/min (90-130); Glucose 173 mg/dL (65-115); Phosphorus 5.8 mg/dL (2.5-4.5); Potassium 4.5 mmol/L (3.5-5.1); Sodium 130 mmol/L (136-145)
[2019-12-15 07:36] VITALS: BP 142/78; PULSE 89; RESP 18; TEMP 36.3; O2SAT 95
[2019-12-15 07:39] LABS: Glucose Point of Care 184 mg/dL (70-110)
[2019-12-15 08:43] VITALS: PULSE 88; RESP 16; O2SAT 94
[2019-12-15] MEDS: ipratropium-albuterol 3 mL Neb INHALATION (08:43)
[2019-12-15 11:06] VITALS: BP 138/76; PULSE 64; RESP 18; TEMP 37.1; O2SAT 95
[2019-12-15] MEDS: potassium chloride oral liq 20 mEq/15 mL UDC PO (11:09)
[2019-12-15] MEDS: aspirin 81 mg Chew Tablet PO (11:10)
[2019-12-15] MEDS: pantoprazole DR 40 mg Tablet PO (11:10)
[2019-12-15] MEDS: levothyroxine 150 mcg Tablet 75 MCG OG-TUBE (11:10)
[2019-12-15] MEDS: amlodipine 5 mg Tablet PO (11:10)
[2019-12-15] MEDS: spironolactone 25 mg Tablet 50 MG PO (11:10)
[2019-12-15] MEDS: venlafaxine 75 mg Tablet PO (11:11)
[2019-12-15] MEDS: predniSONE 1 mg Tablet 4 MG PO (11:11)
[2019-12-15] MEDS: magnesium oxide 400 mg tablet PO (11:11)
[2019-12-15] MEDS: ALPRAZolam 0.25 mg Tablet PO (11:15)
--- NOTE | 2019-12-15 11:26 | P.PN_ITS ---
Subjective Subjective: Interval history: The patient reports feeling better. Her diarrhea is improving. She denies any fevers or chills. No nausea or vomiting. No rectal blood. No chest pain, shortness of breath, cough, palpitations. Wants to go home. Medications: Reviewed: Yes Vitals/I&O/Wt Last Vital Signs Temp 98.7 F 12/15/19 11:06 Pulse 64 12/15/19 11:06 Resp 18 12/15/19 11:06 BP 138/76 12/15/19 11:06 Pulse Ox 95 12/15/19 11:06 12/14/19 12/15/19 12/15/19 22:59 06:59 14:59 Intake Total 600 / 600 Output Total 750 / 750 Balance 600 / 600 -750 / -150 Weight last 48 hrs Weight 72.575 kg Weight 73.573 kg Physical Exam Narrative: EXAM NARRATIVE: the patient is awake alert and oriented. No acute distress. Mood and affect are appropriate. Responses are adequate. Vital signs are reviewed and are stable Skin is warm and dry. Moist mucous membranes. Neck is supple. No JVD Lungs clear bilaterally. No respiratory distress Heart S1, S2, regular Abdomen soft, nontender, bowel sounds are present, no guarding. Extremities trace edema no cyanosis tenderness bilaterally Normal speech. Cranial nerves II-12 are grossly intact. Urinary Catheter Management^: Magana: Cath Placed During This Visit: yes, but has since been removed by the nurse Reason for Continuing Indwelling Catheter: Acute Urinary Retention or Obstruction Urinary Catheter Date of Insertion: 12/02/19 Urinary Catheter Time of Insertion: 18:44 Date Urinary Catheter Removed: 12/13/19 Time Urinary Catheter Discontinued: 15:00 Data : 12/15/19 05:18 12/15/19 05:18 A&P Assessment and plan (1) Dysphagia: Status: Acute Additional A&P Information 64-year-old lady with a complicated past medical history currently admitted on 12/01 after presenting from home with confusion, weakness, diarrhea. He was intubated upon arrival. She was repeatedly falling at home. She was noted to have elevated d-dimer. Labs upon arrival were with a leukocytosis of 23.7, d- dimer 1.6, initial sodium of 107 which is corrected with hypertonic saline. Rapid COVID antigen and PCR test were negative. 258-1 # Significant hyponatremia Sodium 107 upon arrival, now has improved significantly. Now imrpoved. Had received hypertonic saline initially. Currently on salt tablets . Appreciate nephrology recommendations. CT of the head without any acute intracranial abnormalities. Past notes had detected possible adrenal insufficiency due to low levels of cortisol and abnormal ACTH suppression test. Her steroids were discontinued at some point. Completed methylprednisolone taper down from every 6 hours to every 12 hours on 12/05. Prednisone added at 10mg po daily. Reduce to 5 mg p.o. daily there has been noticeable difference in patient's mentation and level of agility since adding steroids. Patient was able to get out of bed today and ambulate to the bathroom and has also ambulated to the bedside commode. Currently TSH is at 0.42, random cortisol at 17.06 (tested on steroids) #Acute respiratory failure requiring intubation and mechanical ventilatory support upon admission. Appears to be multifactorial. Patient may have suffered a low respiratory drive from the hyponatremia versus some degree of aspiration is also possible. Serial chest x-rays have shown patchy infiltrates in bilateral lungs. CTA with B/L nonspecific GGOS, likely to represent fluid given overall clinical picture. No PE Alternate differentials include flash pulmonary edema given elevated BNP and bilateral exudates. She has a h/o FRANKY and wears a bipap at home, likely this contributed with a depressed mental status from hyponatremia. Discontinue Levaquin. Completed empiric course of antibiotics for possible pneumonia. Blood culture 2 of 4 bottles from the same set reported as positive for corynebacterium and CoNs, represent contaminants. Repeat blood cx from 12/02 with no growth thus far. # Sepsis : as evidenced by leukocytosis, hypoxia, lactic acidosis, tachycardia Rapid COVID-19 screen negative, influenza negative, PCR COVID-19 test negative urine legionella Ag negative C diff PCR+, started po vancomycin received empiric pneumonia rx leukocytosis trending down #Acute encephalopathy: -Per has had gradually declining mental status for several months, worsening over the past few days which could be at least in part secondary to degree of hyponatremia -This is now resolved and patient's mental status is back to baseline. # Hypertension: -Monitor vital signs --Systolic blood pressure ranging between 150s to 160s. Continue amlodipine 5 mg, beter controlled now . Spironolactone added per nephrology recommendations, also help with recurrent hypokalemia # Insulin dependent type 2 diabetes mellitus: -Complicated by gastroparesis -Insulin has been on hold as patient has had very poor p.o. intake and had some episodes of hypoglycemia. Her A1c additionally currently is at 6.7. #Hypokalemia: -Replace as needed -Continue to monitor #Hypomagnesemia replaced with IV. #Oropharyngeal dysphasia of unclear etiology. 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 Will need further evaluation of dysphagia as outpatient. For now significant laryngeal penetration noted on swallow evaluations and also on modified barium swallow. s/p PEG placement 12/09. Per patient has not been eating well since at least 3-4 months, also here noted to fail swallow eval at least twice this admission.Only taking ensure at home. she has lost approximately 20 kg unintentionally since march per review of weights charted in the system. has noticed several episodes of aspiration at home. This could have been contributing to her significant electrolyte abnormalities as an outpatient. s/p PEG on 12/09 Glucerna continuous with a goal rate of 50 ml/hr providing 1440 kcal (89%), 72 g PRO (91%), and 966 ml fluid (60%)(%NEEDS). Suggest starting TF at 20 ml/hr and increase by 10 ml Q6H as tolerated till goal rate is met. H2O flushes of 90 ml Q4H. Dispo: SNF was recommended due to severe deconditioning, however both patient and patient's are against going to SNF and she will be leaving home with home health services. May be able to discharge in the upcoming 24 hours if tolerates tube feeds. ppx: Lovenox [place] Please see my discharge summary for more details. Discharge was being delayed again due to need for some more time for discharge arrangements. There were no significant events since yesterday. Her diarrhea is improving. Acute metabolic encephalopathy probably secondary to severe hyponatremia. Currently resolved. Acute on chronic generalized deconditioning and debilitated state. Unfortunately the patient refused shelter facility placement. She states that she wants to go home. She states that her can help her. She states that she is getting stronger every day. However she also reports that if she feels that she still needs help in the future she will speak with her primary care physician.home health care is arranged by the case management. Diarrhea secondary to C. difficile. Improving. We will continue small dose of Imodium. She denies any rectal blood, abdominal pain, fever or chills. She is being discharged on by mouth vancomycin for additional 6 days. Hyponatremia, severe. Probably multifactorial including home medications, dehydration, diarrhea. Currently significantly improved. Medications are adjusted. Close outpatient monitoring is recommended. This was discussed in length with the patient. She verbalized understanding and agreement. She is currently on tube feeds.we'll recheck renal panel tomorrow morning. Dysphasia. Exact cause is unknown. There is a possibility of prior stroke or GI dysmotility versus gastroparesis. She is on Reglan at home. In any case she will require additional workup and evaluations. She needs to be seen by GI specialist, neurologist, ENT specialist. Her primary care physician is [facility]. I asked her to speak with the primary care physician and request for appropriate referrals. She verbalized understanding and agreement. She promised to see her primary care physician this week. hypokalemia. Replaced. Acute respiratory failure present on admission probably secondary to aspiration pneumonia. Was intubated and then extubated. Currently stable. No respiratory complaints. Suspected adrenal insufficiency. The patient is being discharged on by mouth steroids. Prescription is provided for 2 weeks. In the meantime the patient will need to be seen and evaluated by her primary care physician. At that point a decision should be made on long-term management. Additionally patient will probably need to be evaluated by an material combiner. Referral should be provided by the primary care physician. This was discussed with the patient. She verbalized consent and agreement. Diabetes. Home medication is resumed. Outpatient follow-up with the primary care physician. Hypertension. Currently well controlled. Continue current management. Leukocytosis. I suspect this is secondary to steroids. No evidence of uncontrolled infection at this time. Attestations Medical Necessity Statement*: Hopefully home today. Coding Level of Care Code Acute Chip Bin Operator for Chg Fwd Diagnoses Dysphagia R13.10
[2019-12-15] MEDS: magnesium sulfate premix 2 GM/50 ML PIGGYBACK IV (11:29)
--- NOTE | 2019-12-15 11:53 | PC.SOCIAL ---
IMM Updated Updated pt on Pg 2 IMM. Provided pt a copy. No questions voiced. Signed, dated, & timed copy in chart.
--- NOTE | 2019-12-15 13:16 | PM.DCS ---
Discharge Providers Date of Admission: 12/02/19 18:25 Date of Discharge: December 20, 2019 Attending Provider at Admission: Ana Pringle MD Attending Provider at Discharge: Sammy Evans Primary Care Provider: KATRINA Cash Diagnoses at Discharge Discharge Diagnosis (1) Dysphagia: Status: Acute Reason for Visit Reason for Visit: [facility] Hospital Course Discharge Summary: Pt is DC'd on 12/15/2019 Pl see progress note from 12/14 and DC summary from 12/11, and DC instructions for more details. Physical Exam Urinary Catheter Management^: Magana: Cath Placed During This Visit: yes, but has since been removed by the nurse Reason for Continuing Indwelling Catheter: Acute Urinary Retention or Obstruction Urinary Catheter Date of Insertion: 12/02/19 Urinary Catheter Time of Insertion: 18:44 Date Urinary Catheter Removed: 12/13/19 Time Urinary Catheter Discontinued: 15:00 Discharge Data Data Completed and Pending: Completed Studies During Hospitalization Category Date Time Status CT angio chest PE protcl 37173 Rout ine Cat Scan 12/05/19 13:[address] head wo con* 7 0450 Stat Cat Scan 12/02/19 18:53 Completed FL barium swallow modifd 15590 Rout ine Exams 12/08/19 11:10 Completed XR chest 1V eduardo ble 87504 Routine Exams 12/03/19 06:00 Completed XR chest 1V eduardo ble 23881 Routine Exams 12/04/19 07:00 Completed XR chest 1V eduardo ble 83730 Routine Exams 12/05/19 07:00 Completed XR chest 1V eduardo ble 44107 Stat Exams 12/02/19 16:18 Completed XR chest 1V eduardo ble [id number] Stat Exams 12/02/19 21:59 Completed CV echo complete* [id number] Routine Ultrasound 12/04/19 20:50 Completed Vitals: Last Vital Signs Temp 98.3 F 12/15/19 15:49 Pulse 84 12/15/19 15:49 Resp 16 12/15/19 15:49 BP 128/64 12/15/19 15:49 Pulse Ox 95 12/15/19 15:49 Discharge Plan Discharge Patient Disposition: Home Health Service Condition: Stable Prescriptions: New prednisone 10 mg Tablet 5 mg PO DAILY 14 Days RF: 0 spironolactone 25 mg Tablet 50 mg PO DAILY 30 Days RF: 0 Imodium A-D 2 mg tablet 2 mg PO Q6H PRN (Reason: loose stool) Qty: 14 RF: 0 Continued venlafaxine [Effexor XR] 150 mg capsule,extended release 24hr 150 mg PO DAILY Qty: 30 RF: 2 metoclopramide HCl [Reglan] 5 mg tablet 5 mg PO .qac Qty: 90 RF: 0 atorvastatin 80 mg Tablet 80 mg PO QPM RF: 0 aspirin [Aspir-81] 81 mg Tablet,Delayed Release (Dr/Ec) 81 mg PO DAILY RF: 0 levothyroxine 75 mcg Tablet 75 mcg PO DAILY RF: 0 pantoprazole 40 mg Tablet,Delayed Release (Dr/Ec) 40 mg PO DAILY RF: 0 lidocaine 5 % Adhesive Patch,Medicated 1 patch TOPICAL PRN PRN (Reason: Pain) RF: 0 metoprolol tartrate 50 mg Tablet 25 mg PO BID RF: 0 magnesium oxide 400 mg (241.3 mg magnesium) Tablet 400 mg PO BID Qty: 60 RF: 0 glimepiride 4 mg Tablet 2 mg PO DAILY Qty: 15 RF: 0 Discontinued quetiapine [Seroquel] 50 mg tablet 50 mg PO BEDTIME Qty: 30 RF: 2 trazodone 150 mg tablet 150 mg PO BEDTIME Qty: 30 RF: 2 hydroxyzine pamoate [Vistaril] 50 mg capsule 50 mg PO BID PRN (Reason: unknown) Qty: 60 RF: 2 insulin aspart U-100 [Novolog Flexpen U-100 Insulin] 100 unit/mL (3 mL) Insulin Pen See Rx Instructions .ROUTE .COMPLEX Qty: 0 RF: 0 acetaminophen [Tylenol Extra Strength] 500 mg Tablet 1,000 mg PO PRN RF: 0 vancomycin 125 mg capsule See Rx Instructions .ROUTE .COMPLEX Qty: 48 RF: 0 amlodipine 10 mg Tablet 10 mg PO DAILY Qty: 30 RF: 0 furosemide 40 mg Tablet 20 mg PO EVERY OTHER DAY Qty: 15 RF: 0 NormaLyte ORS 1.3-1.45-0.75 gram/10.5 gram powder in packet See Rx Instructions .ROUTE .COMPLEX Qty: 288 RF: 0 Discharge Orders: Discharge Order (Routine); Ordered 12/13/19 Ordered By: Sammy Evans Other Ambulatory Orders: Basic Metabolic Panel (Routine) Timeframe: 3 Days Facility: [facility] - Location: Lab - Main Lab Ordered By: Sammy Evans Complete Blood Count w/Auto (Routine) Timeframe: 3 Days Location: Determined by Patient Ordered By: Sammy Evans Referrals: [facility] [Outside] Thu Flores FNP [Primary Care Provider] - 12/21/19 9:00 am (You have a physician phone visit on at 9:00am. They will call you at home.) Discharge Diet: Start new tube feeds as directed Discharge Activity: Increase activity as tolerated Patient Instructions: Clostridium Difficile, Spironolactone (By mouth), Prednisone (By mouth), Vancomycin (By mouth), How to Use and Care for Your PEG Tube (GEN), Hyponatremia (DC), Aspiration Pneumonia (DC), Chronic Dysphagia (DC), Tube Feeding (GEN) Activity Restrictions/Additional Instructions: please see your primary care physician as soon as possible, preferably this week. Please ask for the following referrals from your primary care physician: GI doctor, ENT doctor, endocrinology DrGautam, and probably a urologist. He will need additional workup to understand what is the cause of your dysphasia ( problems with swallowing). It can be from number of different reasons. Please do not eat since the risk of aspiration is very high. Please come back to emergency room if you develop any worsening of your diarrhea, any abdominal pain, nausea or vomiting, fever or chills, chest pain, shortness of breath, cough, palpitations, confusion, weakness, or any other new complaints. Ask your doctor to monitor your sodium level. It was very low when you presented. Discharge Date/Time: 12/15/19 16:26 Discharge Attestations Time Spent in Discharge Care*: less than 30 min Status at Discharge: Cognitive status at discharge: cognitively intact, Behavioral status at discharge: cooperative, Quality Metrics Clinical Quality Measures During this hospital stay, did patient experience: None Coding Level of Care Code Acute Anodiser for Chg Fwd Diagnoses Dysphagia R13.10
[2019-12-15 15:49] VITALS: BP 128/64; PULSE 84; RESP 16; TEMP 36.8; O2SAT 95
--- NOTE | 2019-12-22 12:09 | PC.SOCIAL ---
Laine called from the [place] outpatient pharmacy on this patient to check the dosing etc of Vancomycin. It appears it was ordered on 12/11 orginally but was stopped on 12/14 per the DC summary on 12/15. Updated Laine of this information.
== END 2019-12-15 16:26 | disposition home health service (06) | DRG 871 ==
LOC: ER 16:40 → ICU 18:38 → MEDSURG 12-08 16:58
PROVIDERS: Emergency Medicine; Family Medicine; Internal Medicine; Internal Medicine Nephrology; Student in an Organized Health Care Education/Training Program; Surgery; Admitting Provider Family Medicine; PCP Nurse Practitioner; Visit Provider Internal Medicine
PROC: 0DH63UZ Insertion of Feeding Device into Stomach, Percutaneous Approach (ICD-10-PCS; CPT 43246; principal; 2019-12-10 08:00)
DX: A41.9 Sepsis, unspecified organism (principal); J96.00 Acute respiratory failure, unspecified whether with hypoxia or hypercapnia; J69.0 Pneumonitis due to inhalation of food and vomit; G93.41 Metabolic encephalopathy; A04.72 Enterocolitis due to Clostridium difficile, not specified as recurrent; I13.0 Hypertensive heart and chronic kidney disease with heart failure and stage 1 through stage 4 chronic kidney disease, or unspecified chronic kidney disease; I50.32 Chronic diastolic (congestive) heart failure; E87.1 Hypo-osmolality and hyponatremia; E27.40 Unspecified adrenocortical insufficiency; E87.2 Acidosis; F17.210 Nicotine dependence, cigarettes, uncomplicated; G89.29 Other chronic pain; M54.9 Dorsalgia, unspecified; E11.22 Type 2 diabetes mellitus with diabetic chronic kidney disease; E11.65 Type 2 diabetes mellitus with hyperglycemia; N18.2 Chronic kidney disease, stage 2 (mild); F32.9 Major depressive disorder, single episode, unspecified; K21.9 Gastro-esophageal reflux disease without esophagitis; E78.5 Hyperlipidemia, unspecified; E03.9 Hypothyroidism, unspecified; Z79.4 Long term (current) use of insulin; E66.01 Morbid (severe) obesity due to excess calories; Z68.28 Body mass index [BMI] 28.0-28.9, adult; F43.12 Post-traumatic stress disorder, chronic; F10.21 Alcohol dependence, in remission; K29.70 Gastritis, unspecified, without bleeding; Z79.82 Long term (current) use of aspirin; Z86.73 Personal history of transient ischemic attack (TIA), and cerebral infarction without residual deficits; E83.42 Hypomagnesemia; R13.12 Dysphagia, oropharyngeal phase; E87.6 Hypokalemia
CPT/HCPCS: 12345; 31500; 36415; 36416; 36556; 36592; 36600; 43246; 51702; 70450; 71045; 71275; 74230; 80048; 80051; 80053; 80069; 80202; 80307; 81001; 81003; 82533; 82570; 82728; 82803; 82810; 82962; 83036; 83540; 83550; 83605; 83615; 83735; 83880; 83930; 83935; 84100; 84145; 84300; 84443; 84484; 85007; 85025; 85378; 85384; 85610; 86140; 87040; 87070; 87077; 87186; 87205; 87426; 87449; 87493; 87506; 87635; 87804; 90935; 92526; 92610; 92611; 93005; 93306; 94002; 94003; 94640; 94799; 96372; 96375; 99284; A4570; C1751; C9113; J0456; J0696; J1100; J1630; J1650; J1815; J1940; J1956; J2060; J2250; J2270; J2370; J2543; J2704; J2920; J3010; J3370; J3475; J3480; J3486; J3490; J7030; J7050; J7131; J7512; Q3014; Q9967

== ENCOUNTER 2020-01-02 14:12 | Outpatient (CLI) | payer OTHER, SELFPAY ==
--- NOTE | 2020-01-02 14:22 | MM_ITS ---
WS: [id number] BILATERAL SCREENING DIGITAL MAMMOGRAM WITH CAD HISTORY: SCREENING COMPARISON: 08/03/2017 and 07/17/2016 Bilateral CC and MLO views submitted. Computer aided detection analyzed. Breast composition: There are scattered areas of fibroglandular density. No suspicious masses, microc alcifications or architectural distortion. Calcifications and the fibroglandular asymmetries are stab le. MM/[place] [id number] IMPRESSION: BI-RADS: 2-Benign FOLLOW UP: 1 Year Follow-up
== END 2020-01-02 14:13 | disposition home or self-care (01) ==
LOC: RADSHAW 14:16
PROVIDERS: PCP Nurse Practitioner; Visit Provider Nurse Practitioner
DX: Z12.31 Encounter for screening mammogram for malignant neoplasm of breast (principal)
CPT/HCPCS: 77067

== ENCOUNTER 2020-01-03 09:52 | Outpatient (RCR) | payer OTHER, SELFPAY | END 2020-01-21 23:59 | disposition home or self-care (01) | LOC: SST 09:52 | PROVIDERS: PCP Nurse Practitioner; Referring Provider Nurse Practitioner; Visit Provider Nurse Practitioner | DX: R13.11 Dysphagia, oral phase (principal) | CPT/HCPCS: 92526; 92610; 99214 ==

== ENCOUNTER 2020-01-12 20:59 | Emergency (ER) | payer OTHER, MEDICARE, SELFPAY ==
[2020-01-12 21:06] VITALS: BP 124/68; PULSE 77; RESP 14; TEMP 37.2; O2SAT 97; BMI 26.5
--- NOTE | 2020-01-12 21:13 | W.ED.GENADLT ---
HPI - General Adult General: Chief complaint: General Medical Stated complaint: high blood sugar Time Seen by Provider: 01/12/20 21:12 Source: patient Mode of arrival: ambulatory Limitations: no limitations History of Present Illness: HPI narrative: Patient comes in today for complaints of blood sugar at 427. Patient has been recently on prednisone after a bout of pneumonia. Patient has completed the prednisone yesterday. Blood sugar continues to be high. Patient states that she feels fine. Family is concerned due to her sugar being as high as it has which is not normal for her. Patient does not eat much by mouth. Patient uses feeding per G-tube. Patient's spouse says she does eat some applesauce by mouth. Patient does have a sliding scale insulin which she would take 6 units for a blood sugar of is high. Patient only takes 7 units of Lantus daily along with her glimepiride. Review of Systems General: Reports: 10 or more systems reviewed and unremarkable except in HPI and below Const: Reports: other (High blood sugar) [facility] ED PFSH: Medical History (Updated 01/13/20 @ 00:02 by KATRINA Nails) Anemia C. 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, recurrent severe without psychotic features Morbid obesity Post-traumatic stress disorder, chronic Surgical History H/O esophagogastroduodenoscopy H/O: hysterectomy History of bunionectomy bilateral Hx of cholecystectomy Status post colonoscopy Family History Other CAD (coronary artery disease) Cancer Diabetes Hypertension Denies family history of Anesthesia complication Bleeding disorder Social History Smoking and tobacco status: current every day smoker cigars Cigar details: 1 PPD Smoking risk assessment/counseling performed?: No Alcohol intake: former Former alcohol use details: Reportedly has not had any alcohol since June Household members: spouse Housing: Manufactured/Mobile home Marital status: Current occupational status: retired History of recent travel: No Physical Exam Const: COMMON NORMALS: no acute distress and patient oriented x3 GENERAL APPEARANCE: cooperative HENMT: COMMON NORMALS: normocephalic and Normal external nose present HEAD & SCALP: normal to inspection and normocephalic NOSE: Normal external nose present MOUTH: Normal oral and palatal mucosa present Eye: GENERAL EYE: appearance normal, both eyes and all related structures Neck/C-Spine: COMMON NORMALS: full ROM Chest: COMMONS NORMALS: normal inspection of the chest Resp: COMMON NORMALS: normal respiratory effort EFFORT & INSPECTION: Yes able to speak in complete sentences Cardio: COMMON NORMALS: regular rate and regular rhythm RATE: regular rate RHYTHM: regular rhythm GI: COMMON NORMALS: non-tender : COMMON NORMALS: Yes no CVA tenderness BLADDER/KIDNEY EXAM: Yes no CVA tenderness Back/Pelvis: COMMON NORMALS: no CVA tenderness and thoracic and lumbar spine normal to inspection Extremity: COMMON NORMALS: normal to inspection Neuro: COMMON NORMALS: patient oriented x3 and moves all extremities Psych: COMMON NORMALS: mental status grossly normal and cooperative Skin: COMMON NORMALS: no rashes or lesions noted GENERAL SKIN EXAM: no rashes or lesions noted Course Vital Signs: Vital signs: Vital Signs Temperature 98.9 F 01/12/20 21:06 Pulse Rate 77 01/12/20 21:06 Respiratory Rate 14 01/12/20 21:06 Blood Pressure 124/68 01/12/20 21:06 Pulse Oximetry 97 01/12/20 21:06 MDM - General Adult MDM Narrative: Medical decision making narrative: Patient comes in today for concerns of feeling of malaise and high blood sugar. Patient appears well. Patient appears no acute distress. Respirations are even lungs are clear to auscultation. Vital signs are normal. Blood glucose on arrival per fgpiw-[id number]-myil stick was 406. Differential diagnosis includes but not limited to urinary tract infection, dehydration, hypokalemia, hyponatremia. Patient recently been on steroids for a COPD exacerbation, pneumonia. Laboratory values noted a white count of 15,000, hemoglobin of 11, sodium of 118 that corrected to 123 and a glucose of 295. Potassium was 4.9. Patient was given 1 L of IV fluid, 6 units of NovoLog subcu. Blood glucose come down below 300. Patient urine noted trace of leukocyte Estrace, white blood cells, and bacteria. Patient was started on Macrobid 1 tablet twice a day for 7 days. Reviewed exam with patient and spouse who reported understanding of care plan and need for follow-up. Lab Data: Labs: Lab Results 01/12/20 01/12/20 01/12/20 Range/Units 21:13 22:24 22:32 WBC 15.1 H (4.0-10.0) 10^3/ uL RBC 4.01 L (4.1-5.3) 10^6/u L Hgb 11.1 L (11.5-15.3) g/dL Hct 33.3 L (37.0-47.0) % MCV 83.0 (81-99) fL MCH 27.7 L (28.0-34.0) pg MCHC 33.3 (30.0-36.0) g/dL RDW 13.9 (12.1-15.1) % Plt Count 419 H (130-400) 10^3/c mm MPV 10.2 (7.4-10.4) fL Neut % (Auto) 79.6 % Lymph % (Auto) 12.4 % Dale % (Auto) 7.0 % Eos % (Auto) 0.2 % Baso % (Auto) 0.3 % Neut # (Auto) 11.99 H (1.8-7.7) 10^3/u L Lymph # (Auto) 1.9 (0.8-4.8) 10^3/u L Dale # (Auto) 1.1 H (0.2-0.9) 10^3/u L Eos # (Auto) 0.0 (0.0-0.8) 10^3/u L Baso # (Auto) 0.0 (0.0-0.1) 10^3/u L Nucleated RBC % (a uto) 0 % Nucleated RBCs # 0.0 /100WBC Sodium Potassium Chloride Carbon Dioxide Anion Gap BUN Creatinine GFR Calculation Glucose POC Glucose 406 (70-110) mg/dL Calculated Osmolal ity Calcium Total Bilirubin AST ALT Alkaline Phosphata se Total Protein Albumin Globulin Urine Color Yellow (Yellow) Urine Appearance Sl cloudy A (CLEAR) Urine pH 8.0 H (5-7) Ur Specific Gravit y 1.010 (1.005-1.030) Urine Protein Neg (Negative) Urine Glucose (UA) 4+ H (Normal) Urine Ketones Negative (Negative) Urine Blood Neg (Negative) Urine Nitrate Negative (Negative) Urine Bilirubin Neg (Negative) Urine Urobilinogen Norm (Negative) mg/dL Ur Leukocyte Kiara ase 1+ H (Negative) Urine RBC None (0-2) /hpf Urine WBC 0-4 H (0-5) /hpf Ur Squamous Epith Cells None (0-5) /hpf Amorphous Sediment Not Reportable Urine Bacteria 2+ H (NONE) /hpf Serum Ketones 01/12/20 01/12/20 Range/Units 22:32 23:05 WBC (4.0-10.0) 10^3/ uL RBC (4.1-5.3) 10^6/u L Hgb (11.5-15.3) g/dL Hct (37.0-47.0) % MCV (81-99) fL MCH (28.0-34.0) pg MCHC (30.0-36.0) g/dL RDW (12.1-15.1) % Plt Count (130-400) 10^3/c mm MPV (7.4-10.4) fL Neut % (Auto) % Lymph % (Auto) % Dale % (Auto) % Eos % (Auto) % Baso % (Auto) % Neut # (Auto) (1.8-7.7) 10^3/u L Lymph # (Auto) (0.8-4.8) 10^3/u L Dale # (Auto) (0.2-0.9) 10^3/u L Eos # (Auto) (0.0-0.8) 10^3/u L Baso # (Auto) (0.0-0.1) 10^3/u L Nucleated RBC % (a uto) % Nucleated RBCs # /100WBC Sodium Cancelled 118 L* Potassium Cancelled 4.9 Chloride Cancelled 82 L Carbon Dioxide Cancelled 24 Anion Gap Cancelled 16.9 BUN Cancelled 12 Creatinine Cancelled 0.7 GFR Calculation Cancelled 84.0 L Glucose Cancelled 295 H POC Glucose (70-110) mg/dL Calculated Osmolal ity Cancelled 257 L Calcium Cancelled 8.8 Total Bilirubin Cancelled 0.3 AST Cancelled 13 ALT Cancelled 16 Alkaline Phosphata se Cancelled 134 H Total Protein Cancelled 6.2 L Albumin Cancelled 3.7 Globulin Cancelled 2.5 Urine Color (Yellow) Urine Appearance (CLEAR) Urine pH (5-7) Ur Specific Gravit y (1.005-1.030) Urine Protein (Negative) Urine Glucose (UA) (Normal) Urine Ketones (Negative) Urine Blood (Negative) Urine Nitrate (Negative) Urine Bilirubin (Negative) Urine Urobilinogen (Negative) mg/dL Ur Leukocyte Kiara ase (Negative) Urine RBC (0-2) /hpf Urine WBC (0-5) /hpf Ur Squamous Epith Cells (0-5) /hpf Amorphous Sediment Urine Bacteria (NONE) /hpf Serum Ketones Cancelled Negative Discharge Plan Discharge Patient Disposition: Home Clinical Impression: Hyperglycemia, Acute UTI, Hyponatremia Condition: Stable Prescriptions: New nitrofurantoin macrocrystal 100 mg capsule 100 mg PO BID 7 Days Qty: 14 RF: 0 No Action venlafaxine [Effexor XR] 150 mg capsule,extended release 24hr 150 mg PO DAILY Qty: 30 RF: 1 quetiapine [Seroquel] 50 mg tablet 50 mg PO .HS Qty: 30 RF: 1 metoclopramide HCl [Reglan] 5 mg tablet 5 mg PO .qac Qty: 90 RF: 0 atorvastatin 80 mg Tablet 80 mg PO QPM RF: 0 aspirin [Aspir-81] 81 mg Tablet,Delayed Release (Dr/Ec) 81 mg PO DAILY RF: 0 levothyroxine 75 mcg Tablet 75 mcg PO DAILY RF: 0 pantoprazole 40 mg Tablet,Delayed Release (Dr/Ec) 40 mg PO DAILY RF: 0 lidocaine 5 % Adhesive Patch,Medicated 1 patch TOPICAL PRN PRN (Reason: Pain) RF: 0 metoprolol tartrate 50 mg Tablet 25 mg PO BID RF: 0 magnesium oxide 400 mg (241.3 mg magnesium) Tablet 400 mg PO BID Qty: 60 RF: 0 glimepiride 4 mg Tablet 2 mg PO DAILY Qty: 15 RF: 0 Imodium A-D 2 mg tablet 2 mg PO Q6H PRN (Reason: loose stool) Qty: 14 RF: 0 Discharge Orders: Discharge Order (Routine); Ordered 01/13/20 Ordered By: Jeremi Dai Referrals: Thu Flores, LEAD INSTALLER [Primary Care Provider] - Discharge Diet: Usual diet Discharge Activity: Increase activity as tolerated Patient Instructions: Urinary Tract Infection in Women (ED) Activity Restrictions/Additional Instructions: Continue with routine care and medications as directed. Take Macrobid twice a day for the next 7 days for urinary tract infection. Follow-up with primary care in 1 week. Return to the emergency room for worsening symptoms, fever greater than 100.4, or new concerns. Coding Level of Care Code ED Network Support for Navid Fwd Exam Comprehensive
[2020-01-12 21:15] LABS: Glucose Point of Care 406 mg/dL (70-110)
[2020-01-12] MEDS: sodium chloride 0.9% 1,000 ML 999 ML IV (22:35)
[2020-01-12 22:40] LABS: Basophils % 0.3 %; Eosinophils % 0.2 %; Hematocrit 33.3 % (37.0-47.0); Hemoglobin 11.1 g/dL (11.5-15.3); Lymphocytes # 1.9 10^3/uL (0.8-4.8); Lymphocytes % 12.4 %; Mean Corpuscular HGB Conc 33.3 g/dL (30.0-36.0); Mean Corpuscular Hemoglobin 27.7 pg (28.0-34.0); Mean Platelet Volume 10.2 fL (7.4-10.4); Monocytes # 1.1 10^3/uL (0.2-0.9); Neutrophils # 11.99 10^3/uL (1.8-7.7); Neutrophils % 79.6 %; Nucleated Red Blood Cells % 0 %; Platelet Count 419 10^3/cmm (130-400); Red Blood Count 4.01 10^6/uL (4.1-5.3); Red Cell Distribution Width 13.9 % (12.1-15.1); White Blood Count 15.1 10^3/uL (4.0-10.0)
[2020-01-12 23:26] LABS: Blood Urine Neg (Negative); Glucose Urine UA 4+ (Normal); Ketones Urine Negative (Negative); Protein Urine Neg (Negative); Urine Color Yellow (Yellow)
[2020-01-12 23:27] LABS: Add Urine Culture? Yes; Add Urine Microscopic? YES; Bacteria Urine 2+ /hpf; Bilirubin Urine Neg (Negative); Leukocyte Esterase Urine 1+ (Negative); Nitrate Urine Negative (Negative); Urobilinogen Urine Norm (Negative); WBC Urine 0-4 /hpf (0-5)
[2020-01-12 23:44] LABS: Alanine Aminotransferase 16 U/L (0-33); Albumin Level 3.7 g/dL (3.5-5.2); Alkaline Phosphatase 134 IU/L (35-105); Anion Gap 16.9 (5-19); Aspartate Amino Transferase 13 U/L (0-32); Blood Urea Nitrogen 12 mg/dL (8-23); Calcium 8.8 mg/dL (8.5-10.5); Carbon Dioxide 24 mmol/L (22-29); Chloride 82 mmol/L (98-107); Globulin 2.5 g/dL (1.3-4.6); Glucose 295 mg/dL (65-115); Osmolality Calculated 257 mOsm/kg (285-295); Potassium 4.9 mmol/L (3.5-5.1); Total Bilirubin 0.3 mg/dL (0.15-1.2); Total Protein 6.2 g/dL (6.6-8.7)
[2020-01-12 23:57] LABS: Sodium 118 mmol/L (136-145)
[2020-01-13] MEDS: nitrofurantoin SR (BID) 100 mg Capsule PO (00:06)
[2020-01-13 00:08] LABS: Ketone (Acetest) Serum Negative (Negative)
[2020-01-13 00:21] VITALS: BP 131/81; PULSE 85; RESP 17; O2SAT 97
== END 2020-01-13 00:23 | disposition home or self-care (01) ==
PROVIDERS: Emergency Provider Nurse Practitioner Family; PCP Nurse Practitioner
DX: E11.65 Type 2 diabetes mellitus with hyperglycemia (principal); N39.0 Urinary tract infection, site not specified; E87.1 Hypo-osmolality and hyponatremia; Z79.82 Long term (current) use of aspirin; E11.22 Type 2 diabetes mellitus with diabetic chronic kidney disease; I13.0 Hypertensive heart and chronic kidney disease with heart failure and stage 1 through stage 4 chronic kidney disease, or unspecified chronic kidney disease; N18.2 Chronic kidney disease, stage 2 (mild); I50.32 Chronic diastolic (congestive) heart failure; E78.5 Hyperlipidemia, unspecified; F17.210 Nicotine dependence, cigarettes, uncomplicated
CPT/HCPCS: 12345; 36415; 36416; 80053; 81001; 82009; 82962; 85025; 87077; 87086; 87186; 96360; 96372; 99283; J1815; J7030

== ENCOUNTER 2020-02-06 19:37 | Inpatient (IN) | payer OTHER, MEDICARE, SELFPAY ==
--- NOTE | 2020-02-06 | CTR_ITS ---
PROCEDURE INFORMATION: Exam: CT Head Without Contrast Exam date and time: 02/06/2020 7:55 PM Age: 64 years old Clinical indication: Weakness, extremity; Additional info: Stroke alert TECHNIQUE: Imaging protocol: Computed tomography of the head without contrast. Radiation optimization: All CT scans at this facility use at least one of these dose optimization techniques: automated exposure control; mA and/or kV adjustment per patient size (includes targeted exams where dose is matched to clinical indication); or iterative reconstruction. Other technique: STROKE PROTOCOL was implemented. COMPARISON: CT head wo con* [id number] 12/02/2019 8:13 PM RADIATION DOSE METRICS: Total DLP (mGy-cm): 849.24 FINDINGS: Brain: Mild cortical volume loss. Mild hypodensities in supratentorial periventricular white matter. No intracranial hemorrhage. Cerebral ventricles: No ventriculomegaly. Bones/joints: Unremarkable. No acute fracture. Paranasal sinuses: Opacification of the right frontal sinus. Small retention cyst or polyp in the right sphenoid sinus. The other sinuses are clear. Mastoid air cells: Visualized mastoid air cells are well aerated. Vasculature: No hyperdense artery. Soft tissues: Unremarkable. CT/CT head wo con* [id number] IMPRESSION: 1. No acute intracranial abnormality. 2. Mild microangiopathy. ASSESSMENT: ASPECTS ([place] Stroke Program Early CT Score) is 10. Radiation Dose CTDIVOL = (mGy): DLP = 849.24 (mGy-cm)
[2020-02-06 19:43] VITALS: BP 132/78; PULSE 84; RESP 18; TEMP 36.6; O2SAT 98; BMI 28.8
[2020-02-06 19:53] VITALS: BP 132/76; PULSE 83; RESP 21; O2SAT 97
--- NOTE | 2020-02-06 20:00 | XR_ITS ---
WS: [id number] Exam: XR chest 1V portable [id number] Date/Time of Exam: 02/06/2020 8:22 PM Reason For Exam: strokelike symptoms Comparison 12/05/2019. The lungs are clear and fully expanded. Normal cardiomediastinal structures for technique. No pleural effusions. Regional bony elements are intact. Monitoring leads superimpose the chest. Neurostimulato r electrodes superimpose the mid thoracic spine. XR/XR chest 1V portable [id number] IMPRESSION: 1. No acute cardiopulmonary finding.
--- NOTE | 2020-02-06 20:00 | ECG_ITS ---
[facility] Test Date: 2020-02-06 Pat Name: Ingris Mendosa Department: Room: Gender: Female Material Loader: : 1955 Requested By: Markell Fernández I Order Number: [id number] Danny MD: Cindy Strong M.D. 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 [id number]
--- NOTE | 2020-02-06 20:37 | W.ED.NEUROSD ---
HPI - Neuro Symptoms/Deficit General: Chief Complaint: Neuro Symptoms/Deficit Stated Complaint: poss stroke Time Seen by Provider: 02/06/20 19:59 Source: patient and EMS Mode of arrival: EMS (air ambulance) History of Present Illness: HPI Narrative: Patient is a 64-year-old female patient who was last known well about 1600 hrs. when she went to sleep. She woke up about 1730 hrs. and her noticed slurred speech which was worse than her baseline.She also complained of difficulty with her vision with intermittent blurry vision, however she says that this has been going on for probably close to a year now. She has also had one episode of vomiting so far. According to EMS her speech was a little slurred but otherwise they could not find any neurologic deficit. Vital signs were stable throughout the ambulance ride. The patient states she has had a prior CVA in the past. She also has generalized weakness. Last Observed Normal: 16:00 Timing confirmed by: spouse Location: dysarthria History of same: Yes Severity: mild Quality: weak Relieving factors: none Exacerbating factors: none Context: sudden onset On Anticoagulants: No Associated symptoms: Reports nausea and vomiting; Deny chest pain, cough, diaphoresis, fevers/chills, headache(s), anorexia, malaise, seizures, short of breath, syncope, tingling, vertigo or weakness Review of Systems General: Reports: 10 or more systems reviewed and unremarkable except in HPI and below Const: Denies: malaise or diaphoresis Eyes: Denies: change in vision or blurry vision ENMT: Denies: throat pain, enlarged tonsils, odynophagia, hoarseness, mouth pain or swelling of lips/tongue Card: Denies: chest pain or syncope Resp: Denies: dyspnea, productive cough or non-productive cough GI: Reports: nausea and vomiting : Denies: flank pain, difficulty voiding, dysuria, urinary frequency, urinary urgency or urinary hesitancy Musc: Denies: neck pain, back pain or extremity swelling Skin/Breast: Denies: rash, pruritus or erythema Neuro: Denies: headache(s) or vertigo Endo: Denies: polyuria, polydipsia or tired all the time PFS ED PFSH: Medical History Anemia C. 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, recurrent severe without psychotic features Morbid obesity Post-traumatic stress disorder, chronic Surgical History H/O esophagogastroduodenoscopy H/O: hysterectomy History of bunionectomy bilateral Hx of cholecystectomy Status post colonoscopy Family History Other CAD (coronary artery disease) Cancer Diabetes Hypertension Denies family history of Anesthesia complication Bleeding disorder Social History Smoking and tobacco status: current every day smoker cigars Cigar details: 1 PPD Smoking risk assessment/counseling performed?: No Alcohol intake: former Former alcohol use details: Reportedly has not had any alcohol since June Household members: spouse Housing: Manufactured/Mobile home Marital status: Current occupational status: retired History of recent travel: No NIH stroke score NIHSS: Level Of Consciousness - 1a: 0 Level Of Consciousness Questions - 1b: Both Correct Level Of Consciousness Commands - 1c: Both Correct Best Gaze - 2: Normal Visual Lew - 3: No Visual Loss Facial Palsy - 4: Normal Motor Arm Right - 5: No Drift Motor Arm Left - 5: No Drift Motor Leg Right - 6: No Drift Motor Leg Left - 6: No Drift Limb Ataxia - 7: Absent Sensory - 8: Normal Best Language - 9: No Aphasia Dysarthia - 10: Mild/Moderate Dysarthia Extinction And Inattention - 11: 0 Score: Total Score: 1 Physical Exam Const: COMMON NORMALS: no acute distress, average body habitus, patient oriented x3, no limitations, healthy appearing and well nourished HENMT: COMMON NORMALS: normocephalic, atraumatic and moist oral mucous membranes HEAD & SCALP: normocephalic and atraumatic Eye: COMMON NORMALS: Equal, round and reactive pupils present, EOMs intact bilaterally, conjunctivae normal and no scleral icterus CONJUNCTIVA: Yes conjunctivae normal PUPIL: Yes Equal, round and reactive pupils present Neck/C-Spine: COMMON NORMALS: full ROM, supple, no meningeal signs, no JVD and No carotid bruits Resp: COMMON NORMALS: normal respiratory effort, No retractions, No use of accessory muscles, clear to auscultation bilaterally and percussion normal AUSCULTATION: clear to auscultation bilaterally PERCUSSION: percussion normal Cardio: COMMON NORMALS: no JVD, regular rate, regular rhythm, S1 normal heart sound present, S2 normal heart sound present, No gallops present (Cardio), No clicks present (Cardio), No murmurs present (Cardio), No rub (Cardio) and Peripheral pulses 2+ throughout RATE: regular rate RHYTHM: regular rhythm HEART SOUNDS: S1 normal heart sound present and S2 normal heart sound present PERIPHERAL PULSES: Peripheral pulses 2+ throughout GI: COMMON NORMALS: Normal to inspection, nondistended, normoactive bowel sounds present, Soft to palpation, non-tender, No hepatosplenomegaly present, no masses and no bruits PALPATION: Yes Soft to palpation and Yes No hepatosplenomegaly present Extremity: COMMON NORMALS: normal to inspection, full ROM, capillary refill normal, no calf tenderness and no pedal edema Neuro: COMMON NORMALS: patient oriented x3 SENSORIUM/ORIENTATION: Yes somnolent (But he is easily aroused with voice) MENINGEAL SIGNS: Yes no meningeal signs Skin: COMMON NORMALS: no rashes or lesions noted, no wounds, turgor normal, no jaundice, no petechiae and no mottling GENERAL SKIN EXAM: no rashes or lesions noted and turgor normal Procedures Central Line Placement Right IJ: Time Out Performed: Yes Patient Placed on Monitor/Pulse Ox: Yes MD Prep: mask, gown and gloves Central Line Prep: Chlorhexidine scrub Local Anesthetic: lidocaine 1% Amount of anesthesia used (mL): 3 Ultrasound Used for Placement: Yes Central Line Lumen Inserted: triple Post Procedure: sutured in place, good blood return, all ports aspirated, flushed, capped and sterile dressing applied Post Procedure X-Ray: tip of catheter in good position and no pneumothorax seen Patient Tolerated Procedure: other (she was uncooperative during the procedure and kept turning her head) Complications: none Course ED course: 64-year-old female patient who was brought in as a stroke alert due to some dysarthria and vision issues. On evaluation her NIHSS was low at 1. She was evaluated at the bedside by the neurologist 1. A head and neck CTA to rule out a basilar stroke. However the patient had poor IV access and eventually had to place a right IJ central line which however cannot be used for a CTA. Evaluation however should she has severe hyponatremia which in looking back in her chart she has had in the past and at that time required intubation and mechanical ventilation as she was encephalopathic and it was done to protect her airway. She was started on hypertonic saline and admitted to the ICU for further evaluation and management. Consultations: Consultation #1: Dr. Murdock, who kindly accepted the patient to his service. Vital Signs: Vital signs: Vital Signs Temperature 97.8 F 02/06/20 19:43 Pulse Rate 100 02/07/20 13:00 Respiratory Rate 22 H 02/07/20 13:00 Blood Pressure 148/103 02/07/20 13:00 Pulse Oximetry 98 02/07/20 13:00 MDM - Neuro Symptoms/Deficit MDM Narrative: Medical decision making narrative: Patient who was admitted to the hospital for severe hyponatremia. She was brought in for possible CVA and initial head CT was negative. However was unable to get a CTA of her head and neck due to no venous access. A right IJ central line was placed. She is admitted for further evaluation and management. Prior to being admitted to the ICU she was started on a hypertonic saline drip which was to run for 4 hours at 30 mls an hour. Medical Records: Attestation: I reviewed the patient's medical records. Lab Data: Attestation: I reviewed the patient's lab results. Labs: Lab Results 02/06/20 02/06/20 02/06/20 Range/Units 20:34 20:34 20:34 WBC Corrected WBC RBC Hgb Hct MCV MCH MCHC RDW Plt Count MPV Gran % Neut % (Auto) Lymph % (Auto) [place] % (Auto) Eos % (Auto) Baso % (Auto) Neut # (Auto) Lymph # (Auto) [place] # (Auto) Eos # (Auto) Baso # (Auto) Absolute Gran (aut o) Nucleated RBC % (a uto) Nucleated RBCs # Sodium (136-145) mmol/L Potassium (3.5-5.1) mmol/L Chloride (98-107) mmol/L Carbon Dioxide (22-29) mmol/L Anion Gap (5-19) BUN (8-23) mg/dL Creatinine (0.5-0.9) mg/dL GFR Calculation (90-130) mL/min Glucose (65-115) mg/dL Calculated Osmolal ity (285-295) mOsm/k g Calcium (8.5-10.5) mg/dL Total Bilirubin (0.15-1.2) mg/dL AST (0-32) U/L ALT (0-33) U/L Alkaline Phosphata se (35-105) IU/L Total Protein (6.6-8.7) g/dL Albumin (3.5-5.2) g/dL Globulin (1.3-4.6) g/dL TSH (0.27-4.20) uIU/ mL Urine Color Yellow (Yellow) Urine Appearance Clear (CLEAR) Urine pH 5.0 (5-7) Ur Specific Gravit y 1.010 (1.005-1.030) Urine Protein Neg (Negative) Urine Glucose (UA) Norm (Normal) Urine Ketones Negative (Negative) Urine Blood Neg (Negative) Urine Nitrate Negative (Negative) Urine Bilirubin Neg (Negative) Urine Urobilinogen Norm (Negative) mg/dL Ur Leukocyte Kiara ase Negative (Negative) Ur Random Sodium 10 mmol/L Ur Random Potassiu m 21 mmol/L Ur Random Chloride 10 mmol/L Urine Creatinine (28-217) mg/dL Urine Opiates Scre en Negative (Negative) ng/mL Ur Barbiturates Sc reen Negative (Negative) ng/mL Ur Phencyclidine S crn Negative (Negative) ng/mL Ur Amphetamines Sc reen Negative (Negative) ng/mL U Benzodiazepines Scrn Negative (Negative) ng/mL Urine Cocaine Scre en Negative (Negative) ng/mL U Marijuana (THC) Screen Negative (Negative) ng/mL 02/06/20 02/06/20 02/06/20 Range/Units 22:00 22:00 22:55 WBC Cancelled 9.8 Corrected WBC Cancelled RBC Cancelled 4.27 Hgb Cancelled 11.2 L Hct Cancelled 34.9 L MCV Cancelled 81.7 MCH Cancelled 26.2 L MCHC Cancelled 32.1 RDW Cancelled 13.5 Plt Count Cancelled 413 H MPV Cancelled 10.0 Gran % Cancelled Neut % (Auto) Cancelled 62.0 Lymph % (Auto) Cancelled 26.9 [place] % (Auto) Cancelled 8.9 Eos % (Auto) Cancelled 1.6 Baso % (Auto) Cancelled 0.2 Neut # (Auto) Cancelled 6.10 Lymph # (Auto) Cancelled 2.6 [place] # (Auto) Cancelled 0.9 Eos # (Auto) Cancelled 0.2 Baso # (Auto) Cancelled 0.0 Absolute Gran (aut o) Cancelled Nucleated RBC % (a uto) Cancelled 0 Nucleated RBCs # Cancelled 0.0 Sodium 119 L* (136-145) mmol/L Potassium 5.0 (3.5-5.1) mmol/L Chloride 85 L (98-107) mmol/L Carbon Dioxide 17 L (22-29) mmol/L Anion Gap 22.0 H (5-19) BUN 14 (8-23) mg/dL Creatinine 0.6 (0.5-0.9) mg/dL GFR Calculation 100.3 (90-130) mL/min Glucose 155 H (65-115) mg/dL Calculated Osmolal ity 252 L (285-295) mOsm/k g Calcium 9.1 (8.5-10.5) mg/dL Total Bilirubin 0.2 (0.15-1.2) mg/dL AST 32 (0-32) U/L ALT 16 (0-33) U/L Alkaline Phosphata se 134 H (35-105) IU/L Total Protein 6.9 (6.6-8.7) g/dL Albumin 3.6 (3.5-5.2) g/dL Globulin 3.3 (1.3-4.6) g/dL TSH (0.27-4.20) uIU/ mL Urine Color (Yellow) Urine Appearance (CLEAR) Urine pH (5-7) Ur Specific Gravit y (1.005-1.030) Urine Protein (Negative) Urine Glucose (UA) (Normal) Urine Ketones (Negative) Urine Blood (Negative) Urine Nitrate (Negative) Urine Bilirubin (Negative) Urine Urobilinogen (Negative) mg/dL Ur Leukocyte Kiara ase (Negative) Ur Random Sodium mmol/L Ur Random Potassiu m mmol/L Ur Random Chloride mmol/L Urine Creatinine (28-217) mg/dL Urine Opiates Scre en (Negative) ng/mL Ur Barbiturates Sc reen (Negative) ng/mL Ur Phencyclidine S crn (Negative) ng/mL Ur Amphetamines Sc reen (Negative) ng/mL U Benzodiazepines Scrn (Negative) ng/mL Urine Cocaine Scre en (Negative) ng/mL U Marijuana (THC) Screen (Negative) ng/mL 02/07/20 02/07/20 Range/Units 01:00 01:06 WBC Corrected WBC RBC Hgb Hct MCV MCH MCHC RDW Plt Count MPV Gran % Neut % (Auto) Lymph % (Auto) [place] % (Auto) Eos % (Auto) Baso % (Auto) Neut # (Auto) Lymph # (Auto) [place] # (Auto) Eos # (Auto) Baso # (Auto) Absolute Gran (aut o) Nucleated RBC % (a uto) Nucleated RBCs # Sodium (136-145) mmol/L Potassium (3.5-5.1) mmol/L Chloride (98-107) mmol/L Carbon Dioxide (22-29) mmol/L Anion Gap (5-19) BUN (8-23) mg/dL Creatinine (0.5-0.9) mg/dL GFR Calculation (90-130) mL/min Glucose (65-115) mg/dL Calculated Osmolal ity (285-295) mOsm/k g Calcium (8.5-10.5) mg/dL Total Bilirubin (0.15-1.2) mg/dL AST (0-32) U/L ALT (0-33) U/L Alkaline Phosphata se (35-105) IU/L Total Protein (6.6-8.7) g/dL Albumin (3.5-5.2) g/dL Globulin (1.3-4.6) g/dL TSH 0.66 (0.27-4.20) uIU/ mL Urine Color (Yellow) Urine Appearance (CLEAR) Urine pH (5-7) Ur Specific Gravit y (1.005-1.030) Urine Protein (Negative) Urine Glucose (UA) (Normal) Urine Ketones (Negative) Urine Blood (Negative) Urine Nitrate (Negative) Urine Bilirubin (Negative) Urine Urobilinogen (Negative) mg/dL Ur Leukocyte Kiara ase (Negative) Ur Random Sodium 10 mmol/L Ur Random Potassiu m mmol/L Ur Random Chloride mmol/L Urine Creatinine 39 (28-217) mg/dL Urine Opiates Scre en (Negative) ng/mL Ur Barbiturates Sc reen (Negative) ng/mL Ur Phencyclidine S crn (Negative) ng/mL Ur Amphetamines Sc reen (Negative) ng/mL U Benzodiazepines Scrn (Negative) ng/mL Urine Cocaine Scre en (Negative) ng/mL U Marijuana (THC) Screen (Negative) ng/mL Imaging Data^: CT Head: Attestation: I personally reviewed and interpreted this imaging study as follows: Radiologist's impression: [facility] [email or web address] [place] [address] CT Scan Report Signed Patient: Ingris Mendosa #: [id number] : 4Acct#:[id number] Age/Sex: 64 / FADM Date: 02/06/20 Loc: ERRoom/Bed: Attending Dr: Ordering Provider/Ordering MD: Markell Fernández [place] [facility] [place] Service: 02/06/20 Procedure(s): CT head wo con* [id number] Accession Number(s): [id number] Report Number: [id number] PROCEDURE INFORMATION: Exam: CT Head Without Contrast Exam date and time: 02/06/2020 7:55 PM Age: 64 years old Clinical indication: Weakness, extremity; Additional info: Stroke alert TECHNIQUE: Imaging protocol: Computed tomography of the head without contrast. Radiation optimization: All CT scans at this facility use at least one of these dose optimization techniques: automated exposure control; mA and/or kV adjustment per patient size (includes targeted exams where dose is matched to clinical indication); or iterative reconstruction. Other technique: STROKE PROTOCOL was implemented. COMPARISON: CT head wo con* [id number] 12/02/2019 8:13 PM RADIATION DOSE METRICS: Total DLP (mGy-cm): 849.24 FINDINGS: Brain: Mild cortical volume loss. Mild hypodensities in supratentorial periventricular white matter. No intracranial hemorrhage. Cerebral ventricles: No ventriculomegaly. Bones/joints: Unremarkable. No acute fracture. Paranasal sinuses: Opacification of the right frontal sinus. Small retention cyst or polyp in the right sphenoid sinus. The other sinuses are clear. Mastoid air cells: Visualized mastoid air cells are well aerated. Vasculature: No hyperdense artery. Soft tissues: Unremarkable. CT/CT head wo con* [id number] IMPRESSION: 1. No acute intracranial abnormality. 2. Mild microangiopathy. ASSESSMENT: ASPECTS ([place] Stroke Program Early CT Score) is 10. Radiation Dose CTDIVOL = (mGy): DLP = 849.24 (mGy-cm) Dictated By:Bahman Calix Signed By:Bahman CalixSinasir Date/Time:02/06/202007 DD/ 05 CXR: Attestation: I personally reviewed and interpreted this imaging study as follows: My impression: Right IJ in satisfactory position in the right atrium EKG Data^: EKG 1: Attestation: I personally reviewed and interpreted this EKG as follows: EKG interpretation date: 02/06/20 EKG interpretation time: 19:57 Prior EKG tracings: not available for review Interpretation: Normal sinus rhythm. Heart rate [address] changes. Critical Care Time Critical Care Time: Critical Care Time: Yes Total Critical Care Time: 60 Attestation: This case had a high probability of a clinically significant, sudden, or life threatening deterioration of this patient's condition which required my full and direct attention, intervention and personal management. Patient with severe hyponatremia requiring hypertonic saline. Discharge Plan Discharge Patient Disposition: Admitted As Inpatient Admit Provider: Tian Murdock Clinical Impression: Acute hyponatremia, Acute metabolic encephalopathy Condition: Stable Coding Level of Care Code ED Electrical Sign Wirer for Chg Fwd Exam Comprehensive
[2020-02-06 20:42] LABS: Add Urine Microscopic? NO
[2020-02-06 20:49] LABS: Urine Appearance Clear (CLEAR); Urine Color Yellow (Yellow)
[2020-02-06 20:50] LABS: Bilirubin Urine Neg (Negative); Blood Urine Neg (Negative); Glucose Urine UA Norm (Normal); Ketones Urine Negative (Negative); Leukocyte Esterase Urine Negative (Negative); Nitrate Urine Negative (Negative); Protein Urine Neg (Negative); Urobilinogen Urine Norm (Negative)
[2020-02-06 20:53] VITALS: BP 136/73; PULSE 82; RESP 19; O2SAT 98
[2020-02-06 20:58] LABS: Amphetamines Screen Urine Negative (Negative); Barbiturates Screen Urine Negative (Negative); Benzodiazepines Screen Urine Negative (Negative); Cocaine Screen Urine Negative (Negative); Opiate Screen Urine Negative (Negative); PCP Screen Urine Negative (Negative); THC Screen Urine Negative (Negative)
[2020-02-06 21:00] VITALS: PULSE 84; RESP 17; O2SAT 96
[2020-02-06 21:30] VITALS: PULSE 90; RESP 19; O2SAT 95
[2020-02-06 23:00] LABS: Basophils % 0.2 %; Eosinophils # 0.2 10^3/uL (0.0-0.8); Eosinophils % 1.6 %; Hematocrit 34.9 % (37.0-47.0); Hemoglobin 11.2 g/dL (11.5-15.3); Lymphocytes # 2.6 10^3/uL (0.8-4.8); Lymphocytes % 26.9 %; Mean Corpuscular HGB Conc 32.1 g/dL (30.0-36.0); Mean Corpuscular Hemoglobin 26.2 pg (28.0-34.0); Mean Corpuscular Volume 81.7 fL (81-99); Monocytes # 0.9 10^3/uL (0.2-0.9); Monocytes % 8.9 %; Nucleated Red Blood Cells % 0 %; Platelet Count 413 10^3/cmm (130-400); Red Blood Count 4.27 10^6/uL (4.1-5.3); Red Cell Distribution Width 13.5 % (12.1-15.1); White Blood Count 9.8 10^3/uL (4.0-10.0)
[2020-02-06 23:24] LABS: Albumin Level 3.6 g/dL (3.5-5.2); Alkaline Phosphatase 134 IU/L (35-105); Blood Urea Nitrogen 14 mg/dL (8-23); Calcium 9.1 mg/dL (8.5-10.5); Carbon Dioxide 17 mmol/L (22-29); Chloride 85 mmol/L (98-107); Globulin 3.3 g/dL (1.3-4.6); Glomerular Filtration Rate 100.3 mL/min (90-130); Glucose 155 mg/dL (65-115); Osmolality Calculated 252 mOsm/kg (285-295); Total Bilirubin 0.2 mg/dL (0.15-1.2); Total Protein 6.9 g/dL (6.6-8.7)
[2020-02-06 23:29] LABS: Alanine Aminotransferase 16 U/L (0-33); Aspartate Amino Transferase 32 U/L (0-32); Sodium 119 mmol/L (136-145)
[2020-02-07] VITALS (41 sets, daily range): BP systolic 113–186; BP diastolic 58–119; PULSE 80–118; RESP 13–26; TEMP 36.8; O2SAT 92–99
--- NOTE | 2020-02-07 00:08 | P.HP_ITS ---
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 is at the bedside who is endorsing that around 5:30 PM when she was trying to go to the bathroom her noticed that her speech became slurred, she looked very lethargic and tired which is new finding for the . Before 5:30 PM she was lethargic and tired but her speech was not slurred. For last few days she has been sleeping a lot as well. Patient herself is denying chest pain, s hortness of breath, fever, productive cough, dysuria, excessive diarrhea(her stools are semisolid because that she is on tube feeding). She is endorsing dehydration, dry mouth, she tries to take small bites of solid food but mainly depends on PEG tube feeding, she tries to increase her fluid intake as well. At baseline she uses walker/cane for ambulation, denying recent falls. Because of slurred speech she was brought to the hospital for further evaluation, code stroke was called, CT head unremarkable, because of hyponatremia nephro was consulted, she was started on hypertonic saline because of symptomatic hyponatremia her symptom was lethargy and fatigue. There was no slurring of speech at the time of my evaluation. Review of Systems Const: Reports: body aches, change in appetite, fatigue and malaise; Denies: fever(s) or chills Eyes: Denies: change in vision ENMT: Reports: odynophagia; Denies: throat pain Card: Denies: chest pain Resp: Denies: dyspnea GI: Denies: abdominal pain, nausea, vomiting or diarrhea : Denies: flank pain Musc: Denies: neck pain Skin/Breast: Denies: rash Neuro: Denies: headache(s) Psych: Reports: sleeping more Endo: Denies: polyuria Jeremiah/Lymph: Denies: easy bruising All/Imm: Denies: urticaria Medications/Allergies Home Medications Medication Instructions Recorded Confirmed Last Taken Type aspirin [Aspir-81] 81 mg PO DAILY 04/09/19 02/06/20 09/06/19 History atorvastatin 80 mg PO QPM 04/09/19 02/06/20 09/06/19 History levothyroxine 75 mcg PO DAILY 04/09/19 02/06/20 09/06/19 History metoprolol tartrate 25 mg PO BID 04/09/19 02/06/20 09/06/19 History pantoprazole 40 mg PO DAILY 04/09/19 02/06/20 09/06/19 History quetiapine 50 mg tablet 50 mg PO .HS #30 tab 01/03/20 02/06/20 Unknown Rx venlafaxine 150 mg 150 mg PO DAILY #30 cap 01/03/20 02/06/20 Unknown Rx capsule,extended release 24 hr glimepiride 4 mg PO DAILY 02/06/20 02/06/20 Unknown History metformin 1,000 mg PO BID 02/06/20 02/06/20 Unknown History spironolactone 25 mg PO DAILY 02/06/20 02/06/20 Unknown History Allergies Allergy/AdvReac Type Severity Reaction Status Date / Time No Known Allergies Allergy Verified 12/09/19 06:51 PFSH Acute PFSH: Medical History Anemia C. 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, recurrent severe without psychotic features Morbid obesity Post-traumatic stress disorder, chronic Surgical History H/O esophagogastroduodenoscopy H/O: hysterectomy History of bunionectomy bilateral Hx of cholecystectomy Status post colonoscopy Family History Other CAD (coronary artery disease) Cancer Diabetes Hypertension Denies family history of Anesthesia complication Bleeding disorder Social History Smoking and tobacco status: current every day smoker cigars Cigar details: 1 PPD Smoking risk assessment/counseling performed?: No Alcohol intake: former Former alcohol use details: Reportedly has not had any alcohol since June Household members: spouse Housing: Manufactured/Mobile home Marital status: Current occupational status: retired History of recent travel: No Vitals/I&O/Wt Last Vital Signs Temp 97.8 F 02/06/20 19:43 Pulse 85 02/07/20 00:00 Resp 18 02/07/20 00:00 BP 135/95 02/07/20 00:00 Pulse Ox 97 02/07/20 00:00 Weight last 48 hrs Weight 73.981 kg Physical Exam Narrative: EXAM NARRATIVE: Elderly female Appears more than stated age No active slurring of speech, NIH 0 Awake alert oriented x3 GCS 15 Extremely dry buccal mucous membranes EOMI, PERRLA Saturating well on room air Normal hemodynamics Clinically looks dehydrated Abdomen soft nontender, PEG tube site has some crusting otherwise no active drainage, Extremity no edema gangrene or ulcer Patient seems lethargic, goes back to sleep on and off, according to her this is her baseline No active neurological deficit noted No facial asymmetry No acute respiratory distress Data : 02/06/20 22:55 02/06/20 22:00 A&P Assessment and plan (1) Hyponatremia: Status: Acute (2) Fatigue: Status: Acute Qualifiers: Fatigue type: unspecified Qualified Code(s): R53.83 - Other fatigue Additional A&P Information Acute on chronic hyponatremia Symptomatic hyponatremia with slurring of speech which has improved Code stroke was called, stroke ruled out Currently on hypertonic saline, nephro consulted Clinically patient looks dehydrated hyponatremia, urine sodium less than 30 which goes with dehydration I do believe patient is not getting salt along water flushes We will follow up with nephro recommendations Patient is denying diarrhea, vomiting Target sodium correction 6 mEq in 24 hours, serial sodium level Metabolic acidosis We will check ketones and serum lactic acid Creatinine normal, no uremia, patient denied excessive diarrhea or vomiting, I do not suspect renal tubular acidosis or [place] disease which mostly present with normal anion gap acidosis Type 2 diabetes We will keep her on sliding scale Feeding tube to be initiated after nephro consult Hypothyroidism: Continue home regimen of levothyroxine, check TSH Hold antipsychotic agents Full code Initiate tube feeding after nephro consult DVT prophylaxis Lovenox Attestations Medical Necessity Statement*: Anticipating stay in the hospital cross more than 2 midnights currently need ICU management, currently on hypertonic saline for hyponatremia, nephrology consulted Time Spent in Patient Care: (>than 50% of time spent in counselling and/or direct pt care on unit) . 50mins Coding Level of Care Code Acute Lean Manufacturing Leader for Chg Fwd Diagnoses Hyponatremia E87.1 Fatigue R53.83 Fatigue type: unspecified
[2020-02-07 01:26] LABS: Urine Creatinine 39 mg/dL (28-217)
--- NOTE | 2020-02-07 01:26 | XR_ITS ---
WS: [id number] Exam: XR chest 1V portable [id number] Date/Time of Exam: 02/07/2020 1:26 AM Reason For Exam: central line placement Comparison 02/06/2020. The lungs are clear and fully expanded. Normal cardiomediastinal structures for technique. A right-si ded IJ catheter extends into the right atrium. Recent appearing fracture of the lateral margin of the right eighth rib. Neurostimulator leads superimpose the mid thoracic spine. XR/XR chest 1V portable [id number] IMPRESSION: 1. Right IJ catheter ending in the right atrium. 2. No acute cardiopulmonary finding. 3. Recent appearing fracture of the lateral right eighth rib.
[2020-02-07] MEDS: sodium chloride 3% 500 ML 30 ML IV (01:30)
[2020-02-07 01:45] LABS: Urine Random Sodium 10 mmol/L
[2020-02-07 01:48] LABS: Thyroid Stimulating Hormone 0.66 uIU/mL (0.27-4.20)
--- NOTE | 2020-02-07 01:49 | PM.CONSULT ---
Providers/Reason For Consult Consulting Physican/Specialty*: maynor sanz md / telenephrology Reason for Consult*: hyponatremia Requesting Physcian: Dr. Murdock Attending Physician: Dr. Murdock Primary Care Provider: KATRINA Cash History of Present Illness History of Present Illness Ingris Mendosa is a 64 year old female h/o depression on effexor and seroquel, dm, diastolic dysfunction, hypothyroidism, GERD. Pt had an admission in nov 2019 w/ profound hyponatremia- na 110- she was intubated. she corrected then w/ 3% saline and ivf. It was felt that she did not have SIADH. However her hyponatremia was due to vomiting and SSRI/ psych meds and excessive water intake. Pt was discharged w/ a NA of 130+. Pt presented yesterday w/ confusion, n/v/d. NA was found to be 119 and renal was called to consult. Pt knows the date and where she is. she c/o abd pain. no sob, no musa, no hearing or seeing changes, no leg pain, no dysuria. She drinks a lot of water, smokes+. she states she stopped ETOH use. Review of Systems General: Reports: 10 or more systems reviewed and unremarkable except in HPI and below Narrative: weak, n/v/abd pain. MS improved in eR Meds/Allergies Home Medications and Allergies Home Medications Medication Instructions Recorded Confirmed Last Taken Type aspirin [Aspir-81] 81 mg PO DAILY 04/09/19 02/06/20 09/06/19 History atorvastatin 80 mg PO QPM 04/09/19 02/06/20 09/06/19 History levothyroxine 75 mcg PO DAILY 04/09/19 02/06/20 09/06/19 History metoprolol tartrate 25 mg PO BID 04/09/19 02/06/20 09/06/19 History pantoprazole 40 mg PO DAILY 04/09/19 02/06/20 09/06/19 History quetiapine 50 mg tablet 50 mg PO .HS #30 tab 01/03/20 02/06/20 Unknown Rx venlafaxine 150 mg 150 mg PO DAILY #30 cap 01/03/20 02/06/20 Unknown Rx capsule,extended release 24 hr glimepiride 4 mg PO DAILY 02/06/20 02/06/20 Unknown History metformin 1,000 mg PO BID 02/06/20 02/06/20 Unknown History spironolactone 25 mg PO DAILY 02/06/20 02/06/20 Unknown History Allergies Allergy/AdvReac Type Severity Reaction Status Date / Time No Known Allergies Allergy Verified 12/09/19 06:51 PFSH Acute PFSH: Medical History (Updated 01/21/20 @ 00:02 by ) Anemia C. 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, recurrent severe without psychotic features Morbid obesity Post-traumatic stress disorder, chronic Surgical History H/O esophagogastroduodenoscopy H/O: hysterectomy History of bunionectomy bilateral Hx of cholecystectomy Status post colonoscopy Family History Other CAD (coronary artery disease) Cancer Diabetes Hypertension Denies family history of Anesthesia complication Bleeding disorder Social History Smoking and tobacco status: current every day smoker cigars Cigar details: 1 PPD Smoking risk assessment/counseling performed?: No Alcohol intake: former Former alcohol use details: Reportedly has not had any alcohol since June Household members: spouse Housing: Manufactured/Mobile home Marital status: Current occupational status: retired History of recent travel: No Vitals/I&O/Wt Last Vital Signs Temp 97.8 F 02/06/20 19:43 Pulse 85 02/07/20 00:00 Resp 18 02/07/20 00:00 BP 135/95 02/07/20 00:00 Pulse Ox 97 02/07/20 00:00 Weight last 48 hrs Weight 73.981 kg Physical Exam Narrative: EXAM NARRATIVE: comfortable, NARD VSS HEENT- nc/at, eomi, anicteric neck supple lungs clear heart reg, no rub, +S1, s2 abd soft, nt, nd+BS ext no edema neuro- a,a, o x 2+, weak when ambulating skin normal pulses + exam by RN- telehealth visit A&P Additional A&P Information 64 yr old female w/ recurent hyponatremia 1. Per ER she has symptomatic hyponatremia- is already improving. she is on 3% saline at 30 ml/hr -fluid restrict -await ur na, osm, cr results - I am concerned that she has water toxicity from drinking lots of water and then having n/v/d/- loosing salts and water and only replacing it w/ water. -please evaluate her GI issues -add ns ivf -hold aldactone -aim to raise serum na by 6 meq in 24 hrs -has had normal TSH and cosyntropin stim tests on previous admissions w/ hyponatremia -check tsh, cortisol -monitor chem 7 in 4 hrs, then based on results every 6 hrs 2. met acidosis- likely from diarrhea. await ur lytes -check lactate leve; -monitor chemistries 3. dm control 4. Psych- with recurent hyponatremia- consider psych eval to see if seroquel and venlafaxine are best meds for her 5. hold aldactone Consult Attestations Medical Necessity Statement: hyponatremia, AMS Time Spent in Patient Care: Greater than 35 minutes Coding Level of Care Code Acute Clerical Dentist Assistant for Navid Simons
[2020-02-07 03:24] LABS: Potassium, Radom Urine 21 mmol/L
[2020-02-07 03:37] LABS: Urine Random Chloride 10 mmol/L; Urine Random Sodium 10 mmol/L
[2020-02-07 04:41] LABS: Ketone (Acetest) Serum Negative (Negative)
[2020-02-07 04:53] LABS: Blood Urea Nitrogen 11 mg/dL (8-23); Calcium 9.1 mg/dL (8.5-10.5); Carbon Dioxide 25 mmol/L (22-29); Chloride 91 mmol/L (98-107); Glucose 184 mg/dL (65-115); Lactate (Lactic Acid level) 0.6 mmol/L (0.5-2.2); Osmolality Calculated 266 mOsm/kg (285-295); Sodium 126 mmol/L (136-145)
[2020-02-07 04:54] LABS: Magnesium 1.8 mg/dL (1.7-2.3); Phosphorus 4.7 mg/dL (2.5-4.5)
[2020-02-07] MEDS: sodium chloride 0.9% 1,000 ML 100 ML IV (05:04)
--- NOTE | 2020-02-07 05:26 | PC.NURSE ---
Spoke with Dr. Rachel about the repeat sodium level of 126. Dr. Rachel ordered .45% sodium chloride at 90mL/hr and to discontinue all other fluids. Patient can also be taken off fluid restriction.
[2020-02-07] MEDS: sodium chloride 0.45% 1,000 ML 90 ML IV (05:41)
[2020-02-07 08:15] LABS: Sodium 127 mmol/L (136-145)
[2020-02-07] MEDS: aspirin 81 mg EC Tablet PO (08:22)
[2020-02-07] MEDS: levothyroxine 150 mcg Tablet 75 MCG PO (08:22)
[2020-02-07 08:29] LABS: Alanine Aminotransferase 12 U/L (0-33); Albumin Level 3.6 g/dL (3.5-5.2); Alkaline Phosphatase 114 IU/L (35-105); Anion Gap 13.5 (5-19); Aspartate Amino Transferase 9 U/L (0-32); Blood Urea Nitrogen 11 mg/dL (8-23); Carbon Dioxide 26 mmol/L (22-29); Chloride 90 mmol/L (98-107); Globulin 2.8 g/dL (1.3-4.6); Glomerular Filtration Rate 100.3 mL/min (90-130); Glucose 179 mg/dL (65-115); Osmolality Calculated 264 mOsm/kg (285-295); Potassium 4.5 mmol/L (3.5-5.1); Sodium 125 mmol/L (136-145); Total Bilirubin 0.2 mg/dL (0.15-1.2); Total Protein 6.4 g/dL (6.6-8.7)
--- NOTE | 2020-02-07 08:54 | PM.SAN ---
Stroke Alert Activation ED Arrival Date: 02/06/20 ED Arrival Time: 19:34 Last Known Normal/at Baseline: 3-4 hours ago Other Last Known Well Infomation: I was called stat for stroke alert for this chronically ill 64-year-old woman. She was last known well at 4 PM. [facility] was called to her residence because she got up from a nap around 5:30 PM and her legs were weak and she was violently dizzy and vomited multiple times. [facility] activated the stroke alert because of the symptoms. I immediately called the emergency department at 1916 and spoke with the nurse who took report and was informed that Dr. Dr. Betancourt would be seeing the patient. I asked to be called right away but at 1930 I decided to proceed to the emergency department. At worst this patient could not stand up and she felt intense vertigo. She now denies vertigo. She is feeling sleepy. She was able to stand up at the bedside. She had sustained nystagmus on left gaze indicating posterior circulation focality and I advised Dr. Dr. Betancourt to proceed to CT angiogram of the posterior circulation. I performed an NIH stroke scale and the patient's score was 0 so she was not a candidate for TPA. She was not out of the window as she arrived here 3-1/2 hours from last known well. I took time to review this with the staff. Stroke Alert Activated by: [facility] Stroke Alert Activation Time: 19:16 Stroke MD @ Bedside Time: 19:16 NIH Stroke Scale Time: 19:40 NIH stroke score NIHSS: Level Of Consciousness - 1a: 1 Level Of Consciousness Questions - 1b: Both Correct Level Of Consciousness Commands - 1c: Both Correct Best Gaze - 2: Normal Visual Lew - 3: No Visual Loss Facial Palsy - 4: Normal Motor Arm Right - 5: No Drift Motor Arm Left - 5: No Drift Motor Leg Right - 6: No Drift Motor Leg Left - 6: No Drift Limb Ataxia - 7: Absent Sensory - 8: Normal Best Language - 9: No Aphasia Dysarthia - 10: Mild/Moderate Dysarthia If Intubated/Physcial Barrier - Explain: She is a dentulous Extinction And Inattention - 11: 0 Score: Total Score: 2 Stroke Alert Data/Treatment Time to CT of Head: 19:34 Stroke Risk Factors: hypertension, obesity and diabetes mellitus (Generalized debility) tPA Contraindication: tPA Contraindication: Treatment not indcated tPA Admin Prior to Arrival: No Patient & Family Educated on: Treament Plan Standardized Stroke Orders Used: No (The patient was discovered to be profoundly hyponatremic which may have occ) Other Information: This patient was discovered to be profoundly hyponatremic and admitted for further evaluation of her hyponatremia. She has a gastrostomy tube for chronic aspiration of unknown cause. She is morbidly obese and profoundly debilitated with chronic renal failure. Critical Care Time Critical Care Time: 30 - 74 mins A&P Assessment and plan (1) TIA involving basilar artery: This patient presented with severe vertigo, vomiting and bilateral lower extremity weakness. On examination she had nystagmus on left gaze that was sustained. She was able to stand at the bedside without falling over and she had no focal findings other than the nystagmus and therefore did not qualify for TPA. Later it was discovered that she was profoundly hyponatremic which is a recurrent problem for her. I advised a posterior circulation CTA but that was not done presumably because of her chronic renal failure. I would still advocate that test if it is possible to be done because of her focal symptoms even though she was hyponatremic. I will leave that up to the hospitalist team to make a decision. An MRA might be considered because it can be done intracranially by [id number] without contrast administration but that would leave the cervical portion of the vertebral arteries on examined. Perhaps medical management would be the best approach in any case with a atorvastatin, aspirin and possibly a 3-week course of Plavix. Status: Acute Coding Level of Care Code Acute Forest Law And Policy Professor for Navid Simons Diagnoses TIA involving basilar artery G45.0
--- NOTE | 2020-02-07 09:25 | PC.CHAP ---
Pastoral Care Encounter/Spiritual Assessment Type of Contact [] Declined oracle soa consultant visit [] Patient/Family/Request visit [] Outpatient visit [] Follow-up visit [] Physician referral [] Code/Alert [] Routine visit [] Staff referral [] Actively dying [] Patient sleeping [] Family support [] [] Out of room [] Palliative care [] [] Receiving care in room [] Pre-surgical visit [] Trauma [] Long length of stay [] ICU visit [] Other: Relational/Emotional Strength [] Patient feels connected with others/family/visitors/staff [] Distress [] Loneliness/isolation [] Abandonment Spirituality of Patient [] Person of [place] [] Attends Shinto of their [place] [] Believes in Prayer [] Reads Bible or Anabaptism materials [] There are Spiritual issues to be addressed Beef Farmer Interventions [x] Prayer [] Active listening [] Non-anxious presence [] Spiritual/emotional support [] Crisis/trauma care [] Spiritual counseling [] Bereavement support [] Provided bereavement packet [] Provided Bible/devotional materials [] Provided toy/stuffed animal, coloring book to patient or family member [] Provided Communion [] Anointing/[place] [] Salvation [x] Completed spiritual assessment [] Other: Impact on Illness or Injury [] Angry [] Fearful [] Anxious [] Often cries [] Exhaustion [] Unable to work [] Unable to attend jain [] Unable to walk/stand [] Unable to read [] Unable to drive [] Unable to eat/drink [] Unable to sleep [] Unable to be with family [] Patient intubated [] Other: Summary Time spent with patient
--- NOTE | 2020-02-07 10:48 | PM.PN ---
Subjective Subjective: Interval history: was admitted overnight with concerns of ( TIA involving basilar artery ) as well as severe symptomatic hyponatremia. Ended up get Hypertonic saline. Currently in the morning her speech has improved, she has passed the bedside swallow test.She deny any headache,confusion,nausea,vomiting,difficulty with vision. Speech is good. Has remained afebrile, other vitals have been stable. Medications: Reviewed: Yes Vitals/I&O/Wt Last Vital Signs Temp 97.8 F 02/06/20 19:43 Pulse 102 H 02/07/20 10:15 Resp 17 02/07/20 10:15 BP 186/119 02/07/20 10:15 Pulse Ox 99 02/07/20 10:15 02/06/20 02/07/20 02/07/20 22:59 06:59 14:59 Intake Total 152.5 / 152.5 241.5 / 241.5 Balance 152.5 / 152.5 241.5 / 241.5 Weight last 48 hrs Weight 73.981 kg Physical Exam Const: COMMON NORMALS: patient oriented x3 HENMT: COMMON NORMALS: normocephalic and atraumatic HEAD & SCALP: normocephalic and atraumatic Eye: COMMON NORMALS: no scleral icterus Resp: COMMON NORMALS: normal respiratory effort, No retractions, No use of accessory muscles and clear to auscultation bilaterally EFFORT & INSPECTION: Yes symmetric chest movement AUSCULTATION: clear to auscultation bilaterally Cardio: COMMON NORMALS: regular rate, regular rhythm, S1 normal heart sound present, S2 normal heart sound present, No gallops present (Cardio), No murmurs present (Cardio), No rub (Cardio) and Peripheral pulses 2+ throughout RATE: regular rate RHYTHM: regular rhythm HEART SOUNDS: S1 normal heart sound present and S2 normal heart sound present PERIPHERAL PULSES: Peripheral pulses 2+ throughout GI: COMMON NORMALS: Normal to inspection, nondistended, normoactive bowel sounds present, Soft to palpation, non-tender, No hepatosplenomegaly present and no masses AUSCULTATION: Yes normoactive bowel sounds PALPATION: Yes Soft to palpation and Yes No hepatosplenomegaly present RECTAL EXAM: deferred OTHER: PEG tube site is clean Extremity: COMMON NORMALS: no clubbing, cyanosis or edema and no pedal edema Neuro: COMMON NORMALS: patient oriented x3 Data : 02/06/20 22:55 02/07/20 11:35 A&P Assessment and plan (1) Hyponatremia: Status: Acute (2) Fatigue: Status: Acute Qualifiers: Fatigue type: unspecified Qualified Code(s): R53.83 - Other fatigue (3) Leukocytosis: Status: Acute (4) Diastolic heart failure: Status: Acute Qualifiers: Heart failure chronicity: acute on chronic Qualified Code(s): I50.33 - Acute on chronic diastolic (congestive) heart failure (5) Anemia: Status: Acute (6) TIA involving basilar artery: Status: Acute Additional A&P Information # Basilar artery TIA: Admitted with Severe vertigo, vomiting, and B/L L/E weakness, P/E reveal , nystagmus with left gaze not stopping on fixation.Neurology rec,include posterior circulation evaluation with CTA or MRA ( CTA is being avoided given the Renal status concern ) Prudent to continue with Aspirin, Plavix, atorvastatin, Was not a TPA candidate as she only had nystagmus with no other focal findings. Neurology on Board:Rec appreciated #Acute on chronic Symptomatic hyponatremia : Presented with slurred speech.Was on hypertonic N.S.Which has been DC as Serum Sodium correctio rate is greater then , 7 meq/24H.She has been started on D5W @150CC/HR Continue Serum Sodium q4h Daily Urine Soidium: less then 30. Likely water intoxicity per renal. Spironlactone on hold. TSH :Normal (0.66 ) , Cosyntropin sym test : Normal on last admission Appreciate Renal Rec. #H/o CVA: Continue Aspirin, atorvas and plavix. Has dysphagia post CVA,S/P PEG Tube Placement. #Leukocytosis: Likely 2/2 to dehydation. Repeat CBC : WBC: 9.8 Lactic Acid: 0.6 The lungs are clear and fully expanded. U/A:Clean #Type 2 diabetes; LDSSI Diabetic Diet #Hypothyroidism: Levothyroxine: 75 mcg oral daily #CKD: #HTN ; #MDD with Pychotic Feature: Hold antipsychotic agents #Morbid obesity Full code Initiate tube feeding after nephro consult DVT prophylaxis Lovenox Attestations Medical Necessity Statement*: Patient needs to be in hospital for the management of TIA,hyponatremia, Coding Level of Care Code Acute Global Mobility Specialist for Chg Fwd Diagnoses Hyponatremia E87.1 Fatigue R53.83 Fatigue type: unspecified Leukocytosis D72.829 Diastolic heart failure I50.33 Heart failure chronicity: acute on chronic Anemia D64.9 TIA involving basilar artery G45.0
[2020-02-07] MEDS: hyDRALAzine 50 mg Tablet PO ×3 (11:21→20:54)
[2020-02-07] MEDS: clopidogrel 75 mg Tablet PO (11:21)
[2020-02-07 12:00] LABS: Sodium 128 mmol/L (136-145)
[2020-02-07 12:48] LABS: Glucose Point of Care 204 mg/dL (70-110)
[2020-02-07] MEDS: dextrose 5% 1,000 ML 150 ML IV ×2 (13:57→20:54)
[2020-02-07 15:43] LABS: Sodium 126 mmol/L (136-145)
[2020-02-07 17:17] LABS: Glucose Point of Care 268 mg/dL (70-110)
[2020-02-07] MEDS: metoprolol tartrate 25 mg Tablet PO (18:28)
[2020-02-07] MEDS: atorvastatin 40 mg Tablet 80 MG PO (18:28)
[2020-02-07 20:00] LABS: Sodium 125 mmol/L (136-145)
[2020-02-07 20:42] LABS: Glucose Point of Care 204 mg/dL (70-110)
--- NOTE | 2020-02-07 23:21 | PC.NURSE ---
BLADDER SCAN Patient has been on and off of the bedpan this shift. Patient only able to go a small amount of urine at a time or not at all and was explaining that she felt like she really needed to pee. Patient bladder scanned and had about 600 mL in her bladder. Dr. Murdock notified and gave order for indwelling urinary catheter. Upon placement, patient had 650 mL of urine drain.
[2020-02-07 23:23] LABS: Add Urine Microscopic? NO
[2020-02-07 23:38] LABS: Bilirubin Urine Neg (Negative); Blood Urine Neg (Negative); Glucose Urine UA 1+ (Normal); Ketones Urine Negative (Negative); Leukocyte Esterase Urine Negative (Negative); Nitrate Urine Negative (Negative); Protein Urine Neg (Negative); Urine Appearance Clear (CLEAR); Urine Color Yellow (Yellow); Urobilinogen Urine Norm (Negative)
[2020-02-08] VITALS (19 sets, daily range): BP systolic 106–154; BP diastolic 51–105; PULSE 77–103; RESP 17–30; TEMP 35.9–37.2; O2SAT 93–100
[2020-02-08 00:10] LABS: Sodium 124 mmol/L (136-145)
--- NOTE | 2020-02-08 01:56 | PC.NURSE ---
BED ALARM Nurse rounded on patient and she was sitting on side of bed by herself. Patient stated that she needed to go to the bathroom but then realized that she had a marina in. Patients bed sheets changed while she was up and patient put back to bed. Bed alarm set. Patient has also been hollering out for her mom marshall. Patient redirected that her mom wasnt here and that she is in the hospital. Patient alert and oriented x 4 at beginning of night.
[2020-02-08] MEDS: dextrose 5% 1,000 ML 150 ML IV ×2 (03:14→10:04)
[2020-02-08 03:37] LABS: Basophils % 0.4 %; Eosinophils # 0.1 10^3/uL (0.0-0.8); Eosinophils % 1.3 %; Hematocrit 31.2 % (37.0-47.0); Hemoglobin 10.2 g/dL (11.5-15.3); Lymphocytes # 2.3 10^3/uL (0.8-4.8); Lymphocytes % 24.9 %; Mean Corpuscular HGB Conc 32.7 g/dL (30.0-36.0); Mean Corpuscular Hemoglobin 26.1 pg (28.0-34.0); Mean Corpuscular Volume 79.8 fL (81-99); Mean Platelet Volume 10.2 fL (7.4-10.4); Monocytes # 1.2 10^3/uL (0.2-0.9); Monocytes % 12.6 %; Neutrophils # 5.52 10^3/uL (1.8-7.7); Neutrophils % 60.5 %; Nucleated Red Blood Cells % 0 %; Platelet Count 447 10^3/cmm (130-400); Red Blood Count 3.91 10^6/uL (4.1-5.3); Red Cell Distribution Width 13.7 % (12.1-15.1); White Blood Count 9.1 10^3/uL (4.0-10.0)
[2020-02-08 04:04] LABS: Alanine Aminotransferase 12 U/L (0-33); Albumin Level 3.5 g/dL (3.5-5.2); Alkaline Phosphatase 109 IU/L (35-105); Anion Gap 13.8 (5-19); Aspartate Amino Transferase 10 U/L (0-32); Blood Urea Nitrogen 8 mg/dL (8-23); Calcium 8.9 mg/dL (8.5-10.5); Carbon Dioxide 24 mmol/L (22-29); Chloride 91 mmol/L (98-107); Globulin 2.9 g/dL (1.3-4.6); Glomerular Filtration Rate 100.3 mL/min (90-130); Glucose 233 mg/dL (65-115); Magnesium 1.6 mg/dL (1.7-2.3); Osmolality Calculated 266 mOsm/kg (285-295); Phosphorus 3.7 mg/dL (2.5-4.5); Potassium 3.8 mmol/L (3.5-5.1); Sodium 125 mmol/L (136-145); Total Bilirubin 0.2 mg/dL (0.15-1.2); Total Protein 6.4 g/dL (6.6-8.7)
[2020-02-08] MEDS: quetiapine 25 mg Tablet PO ×2 (04:05→20:29)
[2020-02-08 04:08] LABS: Cortisol Random 8.58 ug/mL (2.47-19.5)
--- NOTE | 2020-02-08 04:10 | PC.NURSE ---
ANXIETY Patient expressed to nurse that she needed something for anxiety. Dr. Murdock called and gave order for seroquel 25 mg PO scheduled at bedtime each night.
[2020-02-08 04:13] LABS: Thyroid Stimulating Hormone 0.47 uIU/mL (0.27-4.20)
[2020-02-08] MEDS: clopidogrel 75 mg Tablet PO (09:41)
[2020-02-08] MEDS: hyDRALAzine 50 mg Tablet PO ×2 (09:41→20:29)
[2020-02-08] MEDS: metoprolol tartrate 25 mg Tablet PO ×2 (09:41→17:24)
[2020-02-08] MEDS: aspirin 81 mg EC Tablet PO (09:41)
[2020-02-08] MEDS: levothyroxine 150 mcg Tablet 75 MCG PO (09:41)
[2020-02-08 09:52] LABS: Glucose Point of Care 269 mg/dL (70-110)
[2020-02-08 11:57] LABS: Glucose Point of Care 195 mg/dL (70-110)
--- NOTE | 2020-02-08 12:46 | P.PN_ITS ---
Subjective Subjective: Interval history: Slightly better cognition this morning with less drowsiness, seems more alert, unsure of the month i.e. thinks is November, otherwise alert and oriented x3. No extremity edema, shortness of breath or other volume associated symptoms. She is starting to eat some breakfast, she is not consuming a large amount of fluid. She has been on D5W at 150 cc/h since yesterday. Medications: Reviewed: Yes Vitals/I&O/Wt Last Vital Signs Temp 98.7 F 02/08/20 09:00 Pulse 97 02/08/20 11:00 Resp 17 02/08/20 11:00 BP 133/77 02/08/20 11:00 Pulse Ox 99 02/08/20 08:00 02/07/20 02/08/20 02/08/20 22:59 06:59 14:59 Intake Total 1240 / 1921.5 1310 / 3231.5 1000 / 1000 Output Total 1000 / 1000 1500 / 1500 Balance 240 / 921.5 1310 / 2231.5 -500 / -500 Weight last 48 hrs Weight 73.981 kg Physical Exam Narrative: EXAM NARRATIVE: Constitutional: Awake, drowsy, comfortable HEENT: Wet mucosa, no jvp, non icteric Lungs: Bilaterally clear without discernible wheeze, rales in all lung zones CVS: S1 S2, no murmurs Abdo: Soft, BS ok Ext 4: Minimal edema, peripheral perfusion with no cyanosis Neurological: Grossly non-focal Urinary Catheter Management^: Magana: Cath Placed During This Visit: yes Reason for Continuing Indwelling Catheter: Acute Urinary Retention or Obstructio n Urinary Catheter Date of Insertion: 02/07/20 Urinary Catheter Time of Insertion: 23:05 Data : 02/08/20 03:15 02/08/20 03:15 A&P Additional A&P Information 1. Euvolemic Hyponatremia - recurrent - likely to be combination of high fluid intake in the setting of Venlafaxine and Seroquel - of note urine isotonic (Sp Gr 1.01) ie not maximally dilute, ie ADH certainly present, low urine sodium ie pre-renal component - TSH and alec ok - sodium levels in the mid 120 range - needed 3% and then transitioned to D5w due to high correction rate - sodium levels look good; will DC ivf at this time and allow her to naturally correct - no free water restriction per se - Cont Q6 sodium levels 3. DM control 4. Psych- with recurrent hyponatremia - may need to touch base with psyche team, can we hold Venlafaxine and Seroquel? Thanks for our involvement in her care Franko Cotton MD Nephrology [phone] Patient seen and examined via telemedicine, with the assistance of the bedside RN Attestations Medical Necessity Statement*: eval for hyponatremia Coding Level of Care Code Acute Systems Designer for Chg Kristyn
--- NOTE | 2020-02-08 15:04 | P.PN_ITS ---
Subjective Subjective: Interval history: is doing well,no longer has slurred speech.Denied any fresh complain.Tolerating diet well. Good urine output.No focal neurological deficit. Has remained A,Febrile other vitals and labs have been reviewed. Vitals/I&O/Wt Last Vital Signs Temp 98.9 F 02/08/20 13:00 Pulse 78 02/08/20 13:00 Resp 17 02/08/20 13:00 BP 130/61 02/08/20 13:00 Pulse Ox 97 02/08/20 13:00 02/08/20 02/08/20 02/08/20 06:59 14:59 22:59 Intake Total 1310 / 3231.5 1000 / 1000 Output Total 1500 / 1500 Balance 1310 / 2231.5 -500 / -500 Weight last 48 hrs Weight 73.981 kg Physical Exam HENMT: COMMON NORMALS: normocephalic and atraumatic HEAD & SCALP: normocephalic and atraumatic Eye: GENERAL EYE: appearance normal, both eyes and all related structures Chest: COMMONS NORMALS: normal inspection of the chest and normal palpation of entire chest wall Resp: COMMON NORMALS: normal respiratory effort and clear to auscultation bilaterally EFFORT & INSPECTION: Yes symmetric chest movement AUSCULTATION: clear to auscultation bilaterally Cardio: COMMON NORMALS: regular rate, regular rhythm, S1 normal heart sound present, S2 normal heart sound present, No gallops present (Cardio), No murmurs present (Cardio), No rub (Cardio) and Peripheral pulses 2+ throughout RATE: regular rate RHYTHM: regular rhythm HEART SOUNDS: S1 normal heart sound present and S2 normal heart sound present PERIPHERAL PULSES: Peripheral pulses 2+ throughout GI: COMMON NORMALS: Normal to inspection, nondistended, normoactive bowel sounds present, Soft to palpation, non-tender, No hepatosplenomegaly present and no masses AUSCULTATION: Yes normoactive bowel sounds PALPATION: Yes Soft to palpation and Yes No hepatosplenomegaly present RECTAL EXAM: deferred OTHER: PEG tube site is clean Extremity: COMMON NORMALS: no clubbing, cyanosis or edema and no pedal edema Urinary Catheter Management^: Magana: Cath Placed During This Visit: yes Reason for Continuing Indwelling Catheter: Acute Urinary Retention or Obstruction Urinary Catheter Date of Insertion: 11/17/20 Urinary Catheter Time of Insertion: 23:05 Data : 02/08/20 03:15 02/08/20 03:15 A&P Assessment and plan (1) Hyponatremia: Status: Acute (2) Fatigue: Status: Acute Qualifiers: Fatigue type: unspecified Qualified Code(s): R53.83 - Other fatigue (3) Leukocytosis: Status: Acute (4) Diastolic heart failure: Status: Acute Qualifiers: Heart failure chronicity: acute on chronic Qualified Code(s): I50.33 - Acute on chronic diastolic (congestive) heart failure (5) Anemia: Status: Acute (6) TIA involving basilar artery: Status: Acute Additional A&P Information # Basilar artery TIA: Admitted with Severe vertigo, vomiting, and B/L L/E weakness, P/E reveal , nystagmus with left gaze not stopping on fixation.Neurology rec,include posterior circulation evaluation with CTA or MRA ( CTA is being avoided given the Renal status concern ) Prudent to continue with Aspirin, Plavix, atorvastatin, Was not a TPA candidate as she only had nystagmus with no other focal findings. Neurology on Board:Rec appreciated #Acute on chronic Symptomatic hyponatremia : Presented with slurred speech.Was on hypertonic N.S.Which has been DC as Serum Sodium correctio rate is greater then , 7 meq/24H.She has been started on D5W [place] been discontinued. Continue Serum Sodium q4h Daily Urine Soidium: less then 30. Likely water intoxicity per renal. Spironlactone on hold. TSH :Normal (0.66 ) , Cosyntropin sym test : Normal on last admission Appreciate Renal Rec. #H/o CVA: Continue Aspirin, atorvas and plavix. Has dysphagia post CVA,S/P PEG Tube Placement. #Leukocytosis: Likely 2/2 to dehydation. Repeat CBC : WBC: 9.8 Lactic Acid: 0.6 The lungs are clear and fully expanded. U/A:Clean #Type 2 diabetes; LDSSI Diabetic Diet #Hypothyroidism: Levothyroxine: 75 mcg oral daily #CKD: #HTN ; #MDD with Pychotic Feature: Hold antipsychotic agents given notorious for causing hyponatremia ( seroquel ,venlafaxcine ) #Morbid obesity Full code Initiate tube feeding after nephro consult DVT prophylaxis Lovenox Attestations Medical Necessity Statement*: PATIENT NEEDS TO BE IN HOSPITAL FOR THE HOSPITALIST CHANDA THAT WHOS IS PATIENT PLACEMENT COORDINATOR CIRCULATR . Coding Level of Care Code Acute Store Receiving Specialist for Chg Fwd Diagnoses Hyponatremia E87.1 Fatigue R53.83 Fatigue type: unspecified Leukocytosis D72.829 Diastolic heart failure I50.33 Heart failure chronicity: acute on chronic Anemia D64.9 TIA involving basilar artery G45.0
[2020-02-08 16:07] LABS: Osmolality Serum 260 mOsm/kg (278-305)
[2020-02-08 16:52] LABS: Glucose Point of Care 193 mg/dL (70-110)
--- NOTE | 2020-02-08 17:20 | PC.NURSE ---
at bedside questioning why pt receiving food by mouth. Informed him that pt stated she ate and drank at home and only used her PEG tube for supplements. Pt passed bedside swallow study and speech eval in ER by Dr Covarrubias and ED staff. Pt monitored closely by this nurse for breakfast and lunch and passed swallow study without any difficulty. Pt's then stated they occasionally give applesauce, grits, and peaches at home but [facility]'s Speech Therapist, Veena, evaluated pt two weeks ago and stated nothing by mouth. Dr Daniels phoned. Orders received. Yanci, CSU nurse, notified of pt's NPO with sips and chips status.
[2020-02-08] MEDS: atorvastatin 40 mg Tablet 80 MG PO (17:23)
--- NOTE | 2020-02-08 17:30 | PC.RESP ---
Smoking Cessation information sent to patient.
[2020-02-08] MEDS: HYDROmorphone 1 mg/mL INJ 1 mL 0.5 MG IVP (17:43)
[2020-02-08 20:24] LABS: Glucose Point of Care 254 mg/dL (70-110)
[2020-02-08] MEDS: benzocaine 20% 7 gm 1 APPLIC MUCOUS MEM (20:30)
--- NOTE | 2020-02-08 23:32 | PC.NURSE ---
Patient up to bathroom with minimal contact assistance. Patient denies dizziness or lightheadedness. Did notice patient to be a little unsteady on her feet. Patient reports I am just a little wobbly.
[2020-02-09] VITALS (8 sets, daily range): BP systolic 113–152; BP diastolic 58–71; PULSE 85–109; RESP 17–33; TEMP 35.9–37.7; O2SAT 95–98
[2020-02-09 05:04] LABS: Basophils # 0.1 10^3/uL (0.0-0.1); Basophils % 0.5 %; Eosinophils # 0.2 10^3/uL (0.0-0.8); Eosinophils % 1.3 %; Hematocrit 35.3 % (37.0-47.0); Hemoglobin 11.4 g/dL (11.5-15.3); Lymphocytes # 2.6 10^3/uL (0.8-4.8); Lymphocytes % 21.1 %; Mean Corpuscular HGB Conc 32.3 g/dL (30.0-36.0); Mean Corpuscular Hemoglobin 25.9 pg (28.0-34.0); Mean Corpuscular Volume 80.2 fL (81-99); Mean Platelet Volume 10.3 fL (7.4-10.4); Monocytes # 1.5 10^3/uL (0.2-0.9); Monocytes % 11.8 %; Neutrophils # 8.11 10^3/uL (1.8-7.7); Neutrophils % 64.9 %; Nucleated Red Blood Cells % 0 %; Platelet Count 490 10^3/cmm (130-400); Red Cell Distribution Width 13.7 % (12.1-15.1); White Blood Count 12.5 10^3/uL (4.0-10.0)
[2020-02-09 05:30] LABS: Alanine Aminotransferase 14 U/L (0-33); Albumin Level 3.6 g/dL (3.5-5.2); Alkaline Phosphatase 119 IU/L (35-105); Anion Gap 17.7 (5-19); Aspartate Amino Transferase 12 U/L (0-32); Blood Urea Nitrogen 7 mg/dL (8-23); Calcium 9.3 mg/dL (8.5-10.5); Carbon Dioxide 23 mmol/L (22-29); Chloride 94 mmol/L (98-107); Globulin 3.1 g/dL (1.3-4.6); Glomerular Filtration Rate 100.3 mL/min (90-130); Glucose 191 mg/dL (65-115); Magnesium 1.7 mg/dL (1.7-2.3); Osmolality Calculated 275 mOsm/kg (285-295); Phosphorus 4.6 mg/dL (2.5-4.5); Potassium 3.7 mmol/L (3.5-5.1); Sodium 131 mmol/L (136-145); Total Bilirubin 0.2 mg/dL (0.15-1.2); Total Protein 6.7 g/dL (6.6-8.7)
[2020-02-09 06:42] LABS: Glucose Point of Care 226 mg/dL (70-110)
[2020-02-09] MEDS: HYDROmorphone 1 mg/mL INJ 1 mL 0.5 MG IVP ×2 (06:44→17:46)
[2020-02-09] MEDS: metoprolol tartrate 25 mg Tablet PO ×2 (09:10→17:49)
[2020-02-09] MEDS: clopidogrel 75 mg Tablet PO (09:10)
[2020-02-09] MEDS: hyDRALAzine 50 mg Tablet PO ×3 (09:10→21:34)
[2020-02-09] MEDS: aspirin 81 mg EC Tablet PO (09:10)
[2020-02-09] MEDS: levothyroxine 150 mcg Tablet 75 MCG PO (09:48)
--- NOTE | 2020-02-09 11:07 | PM.PN ---
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 Patient's laboratory workup on arrival showed a WBC of 9.8, hemoglobin 11.2, hematocrit 34.9 and a platelet count of 413. sodium 119, potassium 5.0, chloride 85, bicarb 17, BUN of 14 and creatinine is 0.9. AST of 32, ALT of 16, total bilirubin is 0.2 and alkaline phosphatase of 134. Imaging studies included a head CT which did not show any evidence of acute intracranial abnormality. Mild microangiopathy was noted. Upon admission to the hospital patient did have a code stroke called. Neurology was consulted. NIH performed was 0. TPA was not indicated. Neuro work up was initiated. As noted above a CT head was negative. CTA head and neck was recommended by neurology however this was not performed due to concern of renal failure. Recent ECHO performed during recent admission for cva in [facility] had showed a EF of 55% with grade 1 diastolic dysfunction. In addition to above patient was started on 3% saline. Sodium had improved from 119 to 131 on 02/08. TSH was wnl. Random am cortisol was wnl. 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 Patient was found to be rapidly correcting and thus was changed to d5w and subsequently all IV fluids were discontinued. Subjective 02/09/2020 No new clinical events overnight. Did not complain of vertigo, nausea or vomiting. No new neurological deficits. Vitals/I&O/Wt Last Vital Signs Temp 98.7 F 02/09/20 10:53 Pulse 90 02/09/20 10:53 Resp 25 H 02/09/20 10:53 BP 113/61 02/09/20 10:53 Pulse Ox 96 02/09/20 10:53 02/08/20 02/09/20 02/09/20 22:59 06:59 14:59 Intake Total 120 / 1120 150 / 1270 240 / 240 Output Total 1000 / 2500 800 / 3300 Balance -880 / -1380 -650 / -2030 240 / 240 Physical Exam Narrative: EXAM NARRATIVE: General: Alert, awake oriented x 2 HEENT : Grossly unremarkable CVS: Tachycardia Chest: Non-labored respiration Abd: Soft Nt,ND Ext: NO edema Neuro- Grossly unremarkable. Urinary Catheter Management^: Magana: Cath Placed During This Visit: yes Reason for Continuing Indwelling Catheter: Acute Urinary Retention or Obstruction Urinary Catheter Date of Insertion: 02/07/20 Urinary Catheter Time of Insertion: 23:05 Data : 02/10/20 03:30 02/10/20 03:30 A&P Assessment and plan (1) Acute metabolic encephalopathy: Status: Acute (2) Acute hyponatremia: Status: Acute (3) Dysphagia: Status: Acute (4) Major depressive disorder, recurrent severe without psychotic features: Status: Acute (5) Insulin dependent type 2 diabetes mellitus: Status: Chronic (6) Hypertension: Status: Chronic Qualifiers: Hypertension type: essential hypertension Qualified Code(s): I10 - Essential (primary) hypertension (7) Hyperlipidemia: Status: Chronic Qualifiers: Hyperlipidemia type: unspecified Qualified Code(s): E78.5 - Hyperlipidemia, unspecified Vertigo present on admission - Resolved - Possible TIA - No imaging of post circulation was performed - If persisting symptoms will need CTA of head/neck. - Anti-vert PRN - Fall precautions Recent CVA with residual dysphagia - s/p PEG tube placement - Head CT on admission - > no acute findings - Repeat ST eval today - PT/OT eval reviewed - Aspirin 81 mg po daily - Plavix 75 mg PO daily - Lipitor 80 mg PO QHS - ECHO - in 11/2019 - > pEF, Grade 1 DD, no shunt or valvular HD - Will obtain carotid US Euvolemic hyponatremia - Nephrology on board - Na 119 - > 131 - Continue to monitor bmp - Will continue to hold venlafaxine - Monitor off fluid replacemenent - Random Cortisol / TSH WNL - UA Na 10 Hypertension - Metoprolol 25 mg PO BID - Hydralazine 50 mg PO TID Dyslipidemia - Lipitor as noted above Hypothyroidism - Levothyroxine 75 mcg PO daily Diabetes Mellitus - Sliding scale insulin - Holding Metformin, glimepiride DVT ppx - SCDs - Add Lovenox 40 mg SQ daily Attestations Medical Necessity Statement*: Will requiring ongoing hospitalization for work up of TIA and hyponatremia. Anticipate dishcarge in 1-2 days Time Spent in Patient Care: Greater than 35 minutes (>than 50% of time spent in counselling and/or direct pt care on unit). Coding Level of Care Code Acute [employer] for [employer] Fwd Diagnoses Acute metabolic encephalopathy G93.41 Acute hyponatremia E87.1 Dysphagia R13.10 Major depressive disorder, recurrent severe without psychotic features F33.2 Insulin dependent type 2 diabetes mellitus E11.9; Z79.4 Hypertension I10 Hypertension type: essential hypertension Hyperlipidemia E78.5 Hyperlipidemia type: unspecified
--- NOTE | 2020-02-09 11:22 | USCV_ITS ---
Ingris Mendosa Age: 64 Gender: F : 1955 Exam Date: 02/09/2020 12:47 Ordering Phys: Sreekanth Mccloud MD Technologist: Gissell Em Exam Location: [facility] – [place] Indication: TIA Risk Factors: Previous Vascular Surgery: Right Brachial BP: / Left Brachial BP: / Right Left Velocity (cm/s) Spectral Plaque Velocity (cm/s) Spectral Plaque Syst/Diast Broadening Syst/Diast Broadening / Prox CCA 62.60 / 14.40 / Mid CCA 64.80 / 15.10 / Distal CCA 56.90 / 11.50 / Prox ICA 87.10 / 17.60 / Mid ICA 138.30/ 29.50 / Distal ICA 127.40/ 29.50 ECA 142.20 ICA/CCA 2.13 Vertebral Not Visualized / cm/s / cm/s Subclavian Tri 73.80 FINDINGS Comparison: none available. Unable to image right neck to overlying catheters. Plaque at the left bifurcation with mild elevation of velocity. Antegrade left vertebral artery. CONCLUSIONS Left ICA stenosis at 50%. Cannot evaluate right carotid due to vascular lines. Dr. Lisbet Urbina DO (Electronically Signed) Final Date: 09 February 2020 14:16 S
[2020-02-09 11:26] LABS: Glucose Point of Care 187 mg/dL (70-110)
[2020-02-09] MEDS: enoxaparin 40 mg/0.4 mL Syringe SUBCUT (11:52)
--- NOTE | 2020-02-09 12:13 | P.PN_ITS ---
Subjective Subjective: Interval history: no new issues. Feels well, more lucid, no slurring of the speech. No edema and no other high volume Sx. Medications: Reviewed: Yes Vitals/I&O/Wt Last Vital Signs Temp 98.7 F 02/09/20 10:53 Pulse 90 02/09/20 10:53 Resp 25 H 02/09/20 10:53 BP 113/61 02/09/20 10:53 Pulse Ox 96 02/09/20 10:53 02/08/20 02/09/20 02/09/20 22:59 06:59 14:59 Intake Total 120 / 1120 150 / 1270 240 / 240 Output Total 1000 / 2500 800 / 3300 Balance -880 / -1380 -650 / -2030 240 / 240 Physical Exam Narrative: EXAM NARRATIVE: Constitutional: Awake, drowsy, comfortable HEENT: Wet mucosa, no jvp, non icteric Lungs: Bilaterally clear without discernible wheeze, rales in all lung zones CVS: S1 S2, no murmurs Abdo: Soft, BS ok Ext 4: Minimal edema, peripheral perfusion with no cyanosis Neurological: Grossly non-focal Urinary Catheter Management^: Magana: Cath Placed During This Visit: yes Reason for Continuing Indwelling Catheter: Acute Urinary Retention or Obstruction Urinary Catheter Date of Insertion: 02/07/20 Urinary Catheter Time of Insertion: 23:05 Data : 02/09/20 04:20 02/09/20 04:20 A&P Additional A&P Information 1. Euvolemic Hyponatremia - sodium back to a normal range now - recurrent - likely to be combination of high fluid intake in the setting of Venlafaxine and Seroquel - of note urine isotonic (Sp Gr 1.01) ie not maximally dilute, ie ADH certainly present, low urine sodium ie pre-renal component - TSH and alec ok - ok for daily labs now - no free water restriction per se - Cont Q6 sodium levels 3. DM control 4. Psych- with recurrent hyponatremia - may need to touch base with psyche team, can we hold Venlafaxine and Seroquel? Sodium now close to normal range and in a safe range; will sign off at this time and follow peripherally Please call if there are any further concerns Thanks for our involvement in her care Franko Cotton MD Nephrology [phone] Patient seen and examined via telemedicine, with the assistance of the bedside RN Attestations Medical Necessity Statement*: eval for hypoNa Coding Level of Care Code Acute [employer] Lead for Navid Simons
--- NOTE | 2020-02-09 15:03 | PC.NURSE ---
pt refuses to set in chair wants to lay down
[2020-02-09 16:15] LABS: Glucose Point of Care 219 mg/dL (70-110)
[2020-02-09] MEDS: atorvastatin 40 mg Tablet 80 MG PO (17:49)
[2020-02-09 21:08] LABS: Glucose Point of Care 249 mg/dL (70-110)
[2020-02-09] MEDS: quetiapine 25 mg Tablet PO (21:34)
[2020-02-09] MEDS: HYDROcodone-acetaminophen 5-325 mg Tablet 1 TAB PO (21:34)
--- NOTE | 2020-02-09 22:38 | PC.NURSE ---
ASSUMED CARE. PT C/O 5/10 PAIN IN LOWER BACK. PRN NORCO WAS GIVEN FOR PAIN. WILL CONTINUE TO MONITOR.
[2020-02-10] VITALS (9 sets, daily range): BP systolic 94–141; BP diastolic 49–83; PULSE 75–140; RESP 16–24; TEMP 36.3–36.9; O2SAT 94–99
[2020-02-10 03:55] LABS: Basophils # 0.1 10^3/uL (0.0-0.1); Basophils % 0.5 %; Eosinophils # 0.2 10^3/uL (0.0-0.8); Eosinophils % 1.4 %; Hematocrit 32.5 % (37.0-47.0); Hemoglobin 10.5 g/dL (11.5-15.3); Lymphocytes # 1.8 10^3/uL (0.8-4.8); Lymphocytes % 17.1 %; Mean Corpuscular HGB Conc 32.3 g/dL (30.0-36.0); Mean Corpuscular Hemoglobin 25.9 pg (28.0-34.0); Mean Corpuscular Volume 80.2 fL (81-99); Mean Platelet Volume 10.2 fL (7.4-10.4); Monocytes # 1.3 10^3/uL (0.2-0.9); Monocytes % 12.5 %; Neutrophils # 7.19 10^3/uL (1.8-7.7); Neutrophils % 68.1 %; Nucleated Red Blood Cells % 0 %; Platelet Count 451 10^3/cmm (130-400); Red Blood Count 4.05 10^6/uL (4.1-5.3); Red Cell Distribution Width 13.6 % (12.1-15.1); White Blood Count 10.6 10^3/uL (4.0-10.0)
[2020-02-10 04:23] LABS: Alanine Aminotransferase 16 U/L (0-33); Albumin Level 3.6 g/dL (3.5-5.2); Alkaline Phosphatase 126 IU/L (35-105); Anion Gap 12.8 (5-19); Aspartate Amino Transferase 14 U/L (0-32); Blood Urea Nitrogen 9 mg/dL (8-23); Calcium 9.2 mg/dL (8.5-10.5); Carbon Dioxide 26 mmol/L (22-29); Chloride 96 mmol/L (98-107); Globulin 2.7 g/dL (1.3-4.6); Glucose 202 mg/dL (65-115); Magnesium 1.6 mg/dL (1.7-2.3); Osmolality Calculated 276 mOsm/kg (285-295); Phosphorus 4.4 mg/dL (2.5-4.5); Potassium 3.8 mmol/L (3.5-5.1); Sodium 131 mmol/L (136-145); Total Bilirubin 0.3 mg/dL (0.15-1.2); Total Protein 6.3 g/dL (6.6-8.7)
--- NOTE | 2020-02-10 06:33 | FL_ITS ---
WS: [id number] Exam: FL barium swallow modified [id number] Date/Time of Exam: 02/10/2020 3:14 PM Reason For Exam: Oral dysphagia Fluoroscopy time: 4.3 minutes Modified barium swallow is performed in conjunction with the speech therapy service. Swallowing function at the level of the oropharynx was normal. The patient experienced penetration into the laryngeal inlet when ingesting thin liquid and nectar co nsistency barium foodstuffs. No aspiration was identified. There was retention of solid barium mixtur e foodstuffs in the vallecula which was cleared with the pudding consistency barium. The patient jake sted the barium tablet without incident. FL/FL barium swallow modifd [id number] IMPRESSION: 1. No sign of aspiration. 2. The patient experienced penetration into the laryngeal inlet when ingesting thin liquid and nectar consistency barium foodstuffs. 3. Retention of solid mixture barium foodstuffs into the vallecula which could be cleared. Also refer to findings and recommendations by the speech therapy department.
--- NOTE | 2020-02-10 06:34 | CT_ITS ---
WS: [id number] CT ANGIOGRAM CEREBRAL AND CAROTID ARTERIES HISTORY: Vertigo, recent CVA TECHNIQUE: CT angiogram is performed of the carotid and cerebral arteries. During arterial injection imaging is obtained from the skull vertex to the aortic arch in 1.25 mm imaging. Coronal and sagittal reformats are submitted. Additional multi planar reformats of the carotid and cerebral arteries are submitted, MIP imaging also reviewed. NASCET criteria utilized. All CT scans at [facility] use at least one of these dose optimization techniques: automated exposure control; mA and/or kV ad justment per patient size (includes targeted exams where dose is matched to clinical indication); or iterative reconstruction. CONTRAST: Omnipaque 350; 95 mL IV. DLP: 2138.74 mGy.cm COMPARISON: Carotid ultrasound 02/09/2020 Carotid Angiogram: Right carotid: Common carotid artery: Arises normally from the innominate artery. No significant plaque or stenosis. Internal carotid artery: Small amount of calcified plaque at the bifurcation. No high-grade stenosis. No intimal thickening. External carotid artery: Patent. Left carotid: Common carotid artery: Small amount of plaque at the origin from the arch. Internal carotid artery: Mild intimal thickening and calcification at the bifurcation. External carotid artery: Patent. Right vertebral artery: Unremarkable. Left vertebral artery: Unremarkable. Arises normally from the subclavian artery. Subclavian arteries: Moderate stenosis of near 60% involving the origin of the LEFT subclavian artery from the aorta. Upper thorax: 5 mm noncalcified nodule RIGHT upper lobe. Thyroid gland: Normal. Osseous structures: Increase in cervical lordosis. 2 mm anterolisthesis of C4. Osteopenia. CEREBRAL ANGIOGRAM: Intracranial vertebral arteries: Normal with no significant atherosclerosis. Basilar artery: No significant stenosis or occlusion. No aneurysm. Intracranial Internal carotid arteries: Scattered calcified plaque through the cavernous sinuses. Mil d stenosis of approximately 50%. No complete occlusion. Middle cerebral arteries: Normal. Anterior cerebral arteries and ACOM: Normal. Posterior cerebral arteries and PCOM's: Normal. Dural venous sinuses are normally enhancing. Mastoid air cells: Normal. Paranasal sinuses: Normal. Calvarium: Normal. CT/CT angio headneck* [id number] IMPRESSION: 1. Bilateral extracranial ICA stenosis 50%. 2. Moderate intracranial atherosclerosis of the cavernous sinuses with stenosi s less than 50%. 3. Moderate stenosis 60% origin of the LEFT subclavian artery.
--- NOTE | 2020-02-10 06:35 | P.PN_ITS ---
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 Patient's laboratory workup on arrival showed a WBC of 9.8, hemoglobin 11.2, hematocrit 34.9 and a platelet count of 413. sodium 119, potassium 5.0, chloride 85, bicarb 17, BUN of 14 and creatinine is 0.9. AST of 32, ALT of 16, total bilirubin is 0.2 and alkaline phosphatase of 134. Imaging studies included a head CT which did not show any evidence of acute intracranial abnormality. Mild microangiopathy was noted. Upon admission to the hospital patient did have a code stroke called. Neurology was consulted. NIH performed was 0. TPA was not indicated. Neuro work up was initiated. As noted above a CT head was negative. CTA head and neck was recommended by neurology however this was not performed due to concern of renal failure. Recent ECHO performed during recent admission for cva in [facility] had showed a EF of 55% with grade 1 diastolic dysfunction. In addition to above patient was started on 3% saline. Sodium had improved from 119 to 131 on 02/08. TSH was wnl. Random am cortisol was wnl. 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 Patient was found to be rapidly correcting and thus was changed to d5w and subsequently all IV fluids were discontinued. Subjective 02/09/2020 No new clinical events overnight. Did not complain of vertigo, nausea or vomiting. No new neurological deficits. 02/10/2020 No significant clinical events overnight. Patient stated that she still feels very dizzy. Primarily with ambulation. As per nursing staff to did not note any complaints when assisting with transfer. Inconsistent review of systems. No chest pain or shortness of breath. Vitals/I&O/Wt Last Vital Signs Temp 98.4 F 02/10/20 03:24 Pulse 97 02/10/20 03:24 Resp 24 H 02/10/20 03:24 BP 94/61 02/10/20 03:24 Pulse Ox 94 02/10/20 03:24 11/19/20 11/19/20 11/20/20 14:59 22:59 06:59 Intake Total 240 / 240 300 / 540 Output Total 300 / 300 400 / 700 Balance -60 / -60 300 / 240 -400 / -160 Physical Exam Narrative: EXAM NARRATIVE: General: Alert, awake oriented x 3 HEENT : Grossly unremarkable CVS: Tachycardia Chest: Non-labored respiration Abd: Soft Nt,ND Ext: NO edema Neuro- Grossly unremarkable. Urinary Catheter Management^: Magana: Cath Placed During This Visit: yes, but has since been removed by the nurse Reason for Continuing Indwelling Catheter: Decision to DC Catheter Urinary Catheter Date of Insertion: 02/07/20 Urinary Catheter Time of Insertion: 23:05 Date Urinary Catheter Removed: 02/09/20 Time Urinary Catheter Discontinued: 14:15 Data : 02/10/20 03:30 02/10/20 03:30 A&P Assessment and plan (1) Acute metabolic encephalopathy: Status: Acute (2) Acute hyponatremia: Status: Acute (3) Dysphagia: Status: Acute (4) Major depressive disorder, recurrent severe without psychotic features: Status: Acute (5) Insulin dependent type 2 diabetes mellitus: Status: Chronic (6) Hypertension: Status: Chronic Qualifiers: Hypertension type: essential hypertension Qualified Code(s): I10 - Essential (primary) hypertension (7) Hyperlipidemia: Status: Chronic Qualifiers: Hyperlipidemia type: unspecified Qualified Code(s): E78.5 - Hyperlipidemia, unspecified Vertigo present on admission - Continue to complain of dizziness with standing/ambulating - Will check Orthostatic vitals - Possible TIA - Carotid US - 50 % stenosis of carotids - No imaging of post circulation was performed - CTA of head/neck ordered - Anti-vert PRN - Fall precautions Recent CVA with residual dysphagia - s/p PEG tube placement - Head CT on admission - > no acute findings - PT/OT eval reviewed - Aspirin 81 mg po daily - Plavix 75 mg PO daily - Lipitor 80 mg PO QHS - ECHO - in 11/2019 - > pEF, Grade 1 DD, no shunt or valvular HD - Carotid US - up to 50 % stenosis. CTA head/neck ordered - eval noted - Modified Barium ordered. Depending on results will consider starting oral diet or resume tube feeding. Tolerating oral medication - PT/OT eval noted. Euvolemic hyponatremia - Nephrology on board - Na 119 - > 131 - Continue to monitor bmp - Will continue to hold venlafaxine after d/c - Monitor off fluid replacemenent - Random Cortisol / TSH WNL - UA Na 10 - Will continue seroquel Hypertension - Metoprolol 25 mg PO BID - Hydralazine 50 mg PO TID Dyslipidemia - Lipitor as noted above Hypothyroidism - Levothyroxine 75 mcg PO daily Diabetes Mellitus - Sliding scale insulin - Holding Metformin, glimepiride DVT ppx - SCDs - Add Lovenox 40 mg SQ daily Attestations Medical Necessity Statement*: Patient continues to complain of vertigo. Stroke workup underway. Will require further hospitalization. Anticipate discharge in 1 to 2 days. Time Spent in Patient Care: (>than 50% of time spent in counselling and/or direct pt care on unit) . 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
--- NOTE | 2020-02-10 06:35 | PC.NURSE ---
PT IS RESTING IN BED. PT STATES THAT THEY HAVEN'T SLEPT ALL NIGHT. PT WANTS SOMETHING TO HELP SLEEP. THIS NURSE EDUCATED PT THAT AT THIS TIME IT IS TOO LATE TO RECEIVE A SLEEPING PILL. PT DENIES PAIN AT THIS TIME. WILL CONTINUE TO MONITOR.
[2020-02-10 07:01] LABS: Glucose Point of Care 189 mg/dL (70-110)
--- NOTE | 2020-02-10 08:51 | PC.NURSE ---
dr miranda notified of patients orthostatic blood pressure and heart rate. laying 107/49 heart rate 114 sitting 106/61 heart rate 129 standing 95/55 heart rate 145. patient then sat back down and rested, heart rate went down to 105 and blood pressure being 127/74.
[2020-02-10] MEDS: hyDRALAzine 50 mg Tablet PO (09:11)
[2020-02-10] MEDS: metoprolol tartrate 25 mg Tablet PO (09:11)
[2020-02-10] MEDS: levothyroxine 150 mcg Tablet 75 MCG PO (09:11)
[2020-02-10] MEDS: clopidogrel 75 mg Tablet PO (09:11)
[2020-02-10] MEDS: aspirin 81 mg EC Tablet PO (09:11)
--- NOTE | 2020-02-10 09:46 | DCPLANNER ---
IMM completed on 02/10/20 @ [id number]. Copy of rights given to pt.
[2020-02-10 10:56] LABS: Glucose Point of Care 252 mg/dL (70-110)
[2020-02-10] MEDS: enoxaparin 40 mg/0.4 mL Syringe SUBCUT (12:03)
[2020-02-10] MEDS: iohexol 350 mg/mL 100 mL Btl IV (15:29)
[2020-02-10] MEDS: hyDRALAzine 25 mg Tablet PO ×2 (16:38→20:12)
[2020-02-10 17:26] LABS: Glucose Point of Care 286 mg/dL (70-110)
[2020-02-10] MEDS: metoprolol tartrate 50 mg Tablet PO (18:01)
[2020-02-10] MEDS: atorvastatin 40 mg Tablet 80 MG PO (18:01)
[2020-02-10] MEDS: HYDROcodone-acetaminophen 5-325 mg Tablet 1 TAB PO (18:02)
--- NOTE | 2020-02-10 19:28 | PC.NURSE ---
patient had an uneventful shift other than the other note from the beginning of the shift. patient stating that she wants to go home tomorrow. no other needs at this time. needs within reach.
[2020-02-10] MEDS: quetiapine 25 mg Tablet PO (20:12)
[2020-02-10] MEDS: HYDROmorphone 1 mg/mL INJ 1 mL 0.5 MG IVP (20:21)
[2020-02-10 20:28] LABS: Glucose Point of Care 210 mg/dL (70-110)
[2020-02-10] MEDS: SUMAtriptan 25 mg Tablet PO (21:13)
[2020-02-11] VITALS: BP 108/75
[2020-02-11 04:00] VITALS: BP 133/68; PULSE 96; RESP 20; TEMP 36.7; O2SAT 95
--- NOTE | 2020-02-11 05:21 | PC.NURSE ---
PT RESTED IN BED WITH EYES CLOSED. PT DENIES PAIN. PT HAD UNEVENTFUL NIGHT. WILL CONTINUE TO MONITOR.
[2020-02-11] MEDS: HYDROcodone-acetaminophen 5-325 mg Tablet 1 TAB PO (06:17)
--- NOTE | 2020-02-11 06:38 | PC.NURSE ---
PT HIT CALL LIGHT FOR THIS NURSE TO COME DOWN AND STATED THAT THEY WANT SOMETHING TO HELP THEM SLEEP. THAT THEY HAVEN'T SLEPT ONE WINK. THIS NURSE TOLD PT THAT EVERY TIME I DID ROUNDS THAT THEY HAD THEIR EYES CLOSED. PT WASN'T HAPPY WITH RESPONSE. PT C/O 12/30 PAIN. PRN NORCO GIVEN FOR PAIN.
[2020-02-11 06:49] LABS: Glucose Point of Care 218 mg/dL (70-110)
[2020-02-11 08:00] VITALS: BP 102/70; PULSE 107; RESP 23; TEMP 37; O2SAT 96
[2020-02-11] MEDS: metoprolol tartrate 50 mg Tablet PO (09:28)
[2020-02-11] MEDS: hyDRALAzine 25 mg Tablet PO ×2 (09:28→15:18)
[2020-02-11] MEDS: aspirin 81 mg EC Tablet PO (09:28)
[2020-02-11] MEDS: clopidogrel 75 mg Tablet PO (09:28)
[2020-02-11] MEDS: levothyroxine 150 mcg Tablet 75 MCG PO (09:28)
[2020-02-11 11:03] VITALS: BP 117/70; PULSE 77; RESP 17; TEMP 36.1; O2SAT 96
[2020-02-11 11:29] LABS: Glucose Point of Care 269 mg/dL (70-110)
[2020-02-11 12:28] LABS: Alanine Aminotransferase 17 U/L (0-33); Albumin Level 3.5 g/dL (3.5-5.2); Alkaline Phosphatase 126 IU/L (35-105); Blood Urea Nitrogen 8 mg/dL (8-23); Calcium 9.2 mg/dL (8.5-10.5); Carbon Dioxide 24 mmol/L (22-29); Chloride 95 mmol/L (98-107); Globulin 3.2 g/dL (1.3-4.6); Glomerular Filtration Rate 100.3 mL/min (90-130); Glucose 209 mg/dL (65-115); Magnesium 1.7 mg/dL (1.7-2.3); Osmolality Calculated 272 mOsm/kg (285-295); Sodium 129 mmol/L (136-145); Total Bilirubin 0.2 mg/dL (0.15-1.2); Total Protein 6.7 g/dL (6.6-8.7)
[2020-02-11] MEDS: enoxaparin 40 mg/0.4 mL Syringe SUBCUT (12:42)
[2020-02-11 12:51] LABS: Aspartate Amino Transferase 23 U/L (0-32)
[2020-02-11 15:06] VITALS: BP 161/74; PULSE 95; RESP 19; TEMP 36.8; O2SAT 98
[2020-02-11 16:07] LABS: Glucose Point of Care 126 mg/dL (70-110)
--- NOTE | 2020-02-11 18:45 | PM.DCS ---
Discharge Providers Date of Admission: 02/07/20 01:31 Date of Discharge: February 11, 2020 Attending Provider at Admission: Tian Murdock MD Attending Provider at Discharge: Sreekanth Mccloud Primary Care Provider: KATRINA Cash Diagnoses at Discharge Discharge Diagnosis (1) Acute metabolic encephalopathy: Status: Acute (2) Acute hyponatremia: Status: Acute (3) Dysphagia: Status: Acute (4) Major depressive disorder, recurrent severe without psychotic features: Status: Acute (5) Insulin dependent type 2 diabetes mellitus: Status: Chronic (6) Hypertension: Status: Chronic Qualifiers: Hypertension type: essential hypertension Qualified Code(s): I10 - Essential (primary) hypertension (7) Hyperlipidemia: Status: Chronic Qualifiers: Hyperlipidemia type: unspecified Qualified Code(s): E78.5 - Hyperlipidemia, unspecified Reason for Visit Reason for Visit: poss stroke Hospital Course Hospital Course 64 year old with past medical history of morbid obesity,Hypertension, dyslipidemia, type 2 diabetes mellitus, hypothyroidism, chronic kidney disease, major depressive disorder, and 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 Patient's laboratory workup on arrival showed a WBC of 9.8, hemoglobin 11.2, hematocrit 34.9 and a platelet count of 413. sodium 119, potassium 5.0, chloride 85, bicarb 17, BUN of 14 and creatinine is 0.9. AST of 32, ALT of 16, total bilirubin is 0.2 and alkaline phosphatase of 134. Imaging studies included a head CT which did not show any evidence of acute intracranial abnormality. Mild microangiopathy was noted. Upon admission to the hospital patient did have a code stroke called. Neurology was consulted. NIH performed was 0. TPA was not indicated. Neuro work up was initiated. As noted above a CT head was negative. CTA head and neck was recommended by neurology however this was not performed due to concern of renal failure initially however as renal function remained stable this was done prior to discharge. Showed Bilateral stenosis ranging from 50-60%. Patient was started on DAPT on admission which was continued after discharge. Recent ECHO performed during recent admission for cva in november had showed a EF of 55% with grade 1 diastolic dysfunction. Patient was noted to have sinus tachycardia with hypertension. This improved with increase in metoprolol dose to 50 mg PO BID. Patient remained stable with resolution of vertigo and no new neurological deficits during stay. In addition to above patient was started on 3% saline. Sodium had improved from 119 to 131 on 02/08. TSH was wnl. Random am cortisol was wnl. 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 Patient was found to be rapidly correcting and thus was changed to d5w and subsequently all IV fluids were discontinued. Repeat NA level on day of discharge at again decreased to 129. Patient was stable at baseline and thus recommended to initiate fluid restriction. Repeat BMP was ordered for 3 days post discharge as well as close follow up with PCP. Seroquel and venlafaxine was not resumed upon discharge due to risk of worsening SIADH. Of note patient was previously noted to have high risk of aspiration for which a PEG tube was placed. Repeat modified barium was performed after which patient was started on a PO diet. Patient to follow up with PCP regarding need to continue PEG tube on outpatient follow up. Physical Exam Narrative: EXAM NARRATIVE: General: Alert, awake oriented x 3 HEENT : Grossly unremarkable CVS: Normal sinus rythym Chest: Non-labored respiration Abd: Soft Nt,ND Ext: NO edema Neuro- Grossly unremarkable. Urinary Catheter Management^: Magana: Cath Placed During This Visit: yes, but has since been removed by the nurse Reason for Continuing Indwelling Catheter: Decision to DC Catheter Urinary Catheter Date of Insertion: 02/07/20 Urinary Catheter Time of Insertion: 23:05 Date Urinary Catheter Removed: 02/09/20 Time Urinary Catheter Discontinued: 14:15 Discharge Data Data Completed and Pending: Completed Studies During Hospitalization Category Date Time Status CT angio headneck * [id number]/[id number] Rout ine Cat Scan 02/10/20 06:[address] head wo con* 7 0450 Urgent Cat Scan 02/06/20 Completed [place] barium swallow modifd [id number] Rout ine Exams 02/10/20 06:33 Completed XR chest 1V eduardo ble [id number] Stat Exams 02/06/20 20:00 Completed XR chest 1V eduardo ble [id number] Stat Exams 02/07/20 01:26 Completed CV carotid duplex BI* [id number] Routine Ultrasound 02/09/20 11:22 Completed Labs from last 24 hours 02/11/20 02/11/20 02/11/20 15:52 11:43 11:05 Sodium 129 L Potassium 4.0 Chloride 95 L Carbon Dioxide 24 Anion Gap 14.0 BUN 8 Creatinine 0.6 GFR Calculation 100.3 Glucose 209 H POC Glucose 126 269 Calculated Osmolal ity 272 L Calcium 9.2 Magnesium 1.7 Total Bilirubin 0.2 AST 23 ALT 17 Alkaline Phosphata se 126 H Total Protein 6.7 Albumin 3.5 Globulin 3.2 02/11/20 02/10/20 06:39 20:19 Sodium Potassium Chloride Carbon Dioxide Anion Gap BUN Creatinine GFR Calculation Glucose POC Glucose 218 210 Calculated Osmolal ity Calcium Magnesium Total Bilirubin AST ALT Alkaline Phosphata se Total Protein Albumin Globulin Vitals: Last Vital Signs Temp 98.2 F 02/11/20 15:06 Pulse 95 02/11/20 15:06 Resp 19 H 02/11/20 15:06 BP 161/74 02/11/20 15:06 Pulse Ox 98 02/11/20 15:06 Discharge Plan Discharge Patient Disposition: Home Condition: Stable Prescriptions: New hydralazine 25 mg Tablet 25 mg PO TID Qty: 90 RF: 0 clopidogrel 75 mg Tablet 75 mg PO DAILY Qty: 30 RF: 0 metoprolol tartrate 50 mg Tablet 50 mg PO BID Qty: 60 RF: 0 Continued atorvastatin 80 mg Tablet 80 mg PO QPM RF: 0 aspirin [Aspir-81] 81 mg Tablet,Delayed Release (Dr/Ec) 81 mg PO DAILY RF: 0 levothyroxine 75 mcg Tablet 75 mcg PO DAILY RF: 0 pantoprazole 40 mg Tablet,Delayed Release (Dr/Ec) 40 mg PO DAILY RF: 0 metformin 1,000 mg Tablet 1,000 mg PO BID RF: 0 glimepiride 4 mg tablet 4 mg PO DAILY RF: 0 Discontinued venlafaxine [Effexor XR] 150 mg capsule,extended release 24hr 150 mg PO DAILY Qty: 30 RF: 1 quetiapine [Seroquel] 50 mg tablet 50 mg PO .HS Qty: 30 RF: 1 metoprolol tartrate 50 mg Tablet 25 mg PO BID RF: 0 spironolactone 25 mg Tablet 25 mg PO DAILY RF: 0 Discharge Orders: Discharge Order (Routine); Ordered 02/11/20 Ordered By: Sreekanth Mccloud Other Ambulatory Orders: Basic Metabolic Panel (Routine) Timeframe: 3 Days Facility: [facility] - Location: Lab - Main Lab Ordered By: Sreekanth Mccloud Referrals: Thu Flores FNP [Primary Care Provider] - 1-3 days ([facility] will be calling to schedule a hospital followup with KATRINA Hunt to be seen in 3 days and to do a Repeat BMP, Post acute care follow up If you don't hear from them by Thursday morning, please give them a call. Thank you ) Discharge Diet: Advance as tolerated Discharge Activity: Increase activity as tolerated Patient Instructions: Metoprolol (By mouth), Hydralazine (By mouth), Clopidogrel (By mouth) Activity Restrictions/Additional Instructions: 1800cc/day Fluid restriction Discharge Attestations Time Spent in Discharge Care*: greater than 30 min Status at Discharge: Cognitive status at discharge: cognitively intact, Behavioral status at discharge: cooperative, Quality Metrics Clinical Quality Measures During this hospital stay, did patient experience: None Coding Level of Care Code Acute Fire Hazard Inspector for Padminig Fwd Diagnoses Acute metabolic encephalopathy G93.41 Acute hyponatremia E87.1 Dysphagia R13.10 Major depressive disorder, recurrent severe without psychotic features F33.2 Insulin dependent type 2 diabetes mellitus E11.9; Z79.4 Hypertension I10 Hypertension type: essential hypertension Hyperlipidemia E78.5 Hyperlipidemia type: unspecified
== END 2020-02-11 17:12 | disposition home or self-care (01) | DRG 640 ==
LOC: ER 19:59 → ICU 02-07 07:18 → CSU 02-08 16:45
PROVIDERS: Internal Medicine; Internal Medicine Nephrology; Admitting Provider Internal Medicine; Emergency Provider Family Medicine; PCP Nurse Practitioner; Visit Provider Hospitalist
DX: E87.1 Hypo-osmolality and hyponatremia (principal); I50.33 Acute on chronic diastolic (congestive) heart failure; G93.41 Metabolic encephalopathy; I13.0 Hypertensive heart and chronic kidney disease with heart failure and stage 1 through stage 4 chronic kidney disease, or unspecified chronic kidney disease; F33.2 Major depressive disorder, recurrent severe without psychotic features; G45.0 Vertebro-basilar artery syndrome; I69.991 Dysphagia following unspecified cerebrovascular disease; Z93.1 Gastrostomy status; E03.9 Hypothyroidism, unspecified; D64.9 Anemia, unspecified; G89.29 Other chronic pain; M54.9 Dorsalgia, unspecified; N18.2 Chronic kidney disease, stage 2 (mild); E11.22 Type 2 diabetes mellitus with diabetic chronic kidney disease; K21.9 Gastro-esophageal reflux disease without esophagitis; E78.5 Hyperlipidemia, unspecified; E66.01 Morbid (severe) obesity due to excess calories; Z68.28 Body mass index [BMI] 28.0-28.9, adult; F43.12 Post-traumatic stress disorder, chronic; F17.210 Nicotine dependence, cigarettes, uncomplicated; F10.21 Alcohol dependence, in remission; E86.0 Dehydration; E87.2 Acidosis; Z79.82 Long term (current) use of aspirin; I65.23 Occlusion and stenosis of bilateral carotid arteries; Z79.84 Long term (current) use of oral hypoglycemic drugs
CPT/HCPCS: 12345; 36415; 36416; 36556; 36592; 51702; 70450; 70496; 70498; 71045; 74230; 80048; 80053; 80306; 81003; 82009; 82436; 82533; 82570; 82962; 83605; 83735; 83930; 84100; 84133; 84295; 84300; 84443; 85025; 92523; 92526; 92610; 92611; 93005; 93880; 96372; 96375; 97161; 99284; J1170; J1650; J1815; J7030; J7131; Q3014; Q9967

== ENCOUNTER 2020-02-21 06:00 | Outpatient (RCR) | payer OTHER, MEDICARE, SELFPAY | END 2020-03-22 23:59 | disposition home or self-care (01) | LOC: SST 06:00 | PROVIDERS: PCP Nurse Practitioner; Referring Provider Nurse Practitioner; Visit Provider Nurse Practitioner | DX: R13.11 Dysphagia, oral phase (principal) | CPT/HCPCS: 99214 ==

== ENCOUNTER 2020-02-22 15:18 | Observation (INO) | payer OTHER, MEDICARE, SELFPAY ==
--- NOTE | 2020-02-22 15:26 | ECG_ITS ---
[facility] Test Date: 2020-02-22 Pat Name: Ingris Mendosa Department: Room: Gender: Female [employer] Gatherer: : 1955 Requested By: Melissa Garcia Order Number: [id number] Danny MD: Cindy Strong M.D. Measurements Intervals [place] Rate: 77 P: 45 AK: 137 QRS: 45 QRSD: 93 T: 55 QT: 418 QTc: 474 Interpretive Statements SINUS RHYTHM Compared to ECG 02/06/2020 19:57:09 No significant changes Electronically Signed On 02-22-2020 18:14:36 WEATHERIZATION ADMINISTRATOR by Cindy Strong M.D. [email or web address]
[2020-02-22 15:27] VITALS: BP 111/65; PULSE 76; RESP 16; TEMP 36.6; O2SAT 96; BMI 36.1
--- NOTE | 2020-02-22 15:37 | ED_ITS ---
HPI - Syncope General: Chief Complaint: Syncope Stated Complaint: SYNCOPAL EPISODE Time Seen by Provider: 02/22/20 15:23 Source: patient Mode of arrival: ambulatory Limitations: no limitations History of Present Illness: HPI narrative: 64-year-old female who presents here from the [place] after having a syncopal event. She states that she has felt tired today and weak. States she did not sleep last night so she did take her trazodone today. States she felt tired but does not remember passing out. She denies any chest pain or headache. Her blood pressure has been stable per EMS. She has a long history of hyponatremia in the past. She denies any vomiting or diarrhea. Associated symptoms: Deny abdominal pain, chest pain, fever(s), headache(s) or nausea Review of Systems Const: Denies: fever(s), chills, body aches or change in appetite Eyes: Denies: blurry vision or eye discomfort ENMT: Denies: throat pain or dental pain Card: Reports: syncope; Denies: chest pain Resp: Denies: dyspnea GI: Denies: abdominal pain, nausea, vomiting or diarrhea : Denies: dysuria Musc: Denies: neck pain or back pain Skin/Breast: Denies: rash Neuro: Denies: headache(s) Psych: Denies: depression Jeremiah/Lymph: Denies: easy bruising All/Imm: Denies: urticaria PFSH ED PFSH: Medical History Anemia C. 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, recurrent severe without psychotic features Morbid obesity Post-traumatic stress disorder, chronic Surgical History H/O esophagogastroduodenoscopy H/O: hysterectomy History of bunionectomy bilateral Hx of cholecystectomy Status post colonoscopy Family History Other CAD (coronary artery disease) Cancer Diabetes Hypertension Denies family history of Anesthesia complication Bleeding disorder Social History Smoking and tobacco status: current every day smoker cigars Cigar details: 1 PPD Smoking risk assessment/counseling performed?: No Alcohol intake: former Former alcohol use details: Reportedly has not had any alcohol since June Household members: spouse Housing: Manufactured/Mobile home Marital status: Current occupational status: retired History of recent travel: No Physical Exam Const: COMMON NORMALS: no acute distress, patient oriented x3 and healthy appearing HENMT: COMMON NORMALS: normocephalic and atraumatic HEAD & SCALP: normocephalic and atraumatic Eye: COMMON NORMALS: Equal, round and reactive pupils present and EOMs intact bilaterally PUPIL: Yes Equal, round and reactive pupils present Neck/C-Spine: COMMON NORMALS: full ROM and supple Chest: COMMONS NORMALS: normal inspection of the chest and normal palpation of entire chest wall Resp: COMMON NORMALS: normal respiratory effort, No retractions, No use of accessory muscles and clear to auscultation bilaterally AUSCULTATION: clear to auscultation bilaterally Cardio: COMMON NORMALS: regular rate, regular rhythm and No murmurs present (Cardio) RATE: regular rate RHYTHM: regular rhythm GI: COMMON NORMALS: Normal to inspection, nondistended, normoactive bowel sounds present, Soft to palpation, non-tender and no masses PALPATION: Yes Soft to palpation Extremity: COMMON NORMALS: normal to inspection and full ROM Neuro: COMMON NORMALS: patient oriented x3, moves all extremities and no focal motor deficits Psych: COMMON NORMALS: mental status grossly normal, Normal thought process present and cooperative THOUGHT PROCESS: Normal thought process present Skin: COMMON NORMALS: no rashes or lesions noted and no wounds GENERAL SKIN EXAM: no rashes or lesions noted Course Vital Signs: Vital signs: Vital Signs Temperature 97.9 F 02/22/20 15:27 Pulse Rate 76 02/22/20 15:27 Respiratory Rate 16 02/22/20 15:27 Blood Pressure 111/65 02/22/20 15:27 Pulse Oximetry 96 02/22/20 15:27 MDM - Syncope MDM Narrative: Medical decision making narrative: Patient presents with a syncopal event likely due to her hyponatremia. Patient sodium here is 122. She is otherwise well-appearing here and has no signs of cardiac cause or palm embolism. Patient given IV fluids here and will admit to trend her hyponatremia. Lab Data: Labs: Lab Results 02/22/20 02/22/20 Range/Units 16:41 16:41 WBC 8.5 (4.0-10.0) 10^3/ uL RBC 3.73 L (4.1-5.3) 10^6/u L Hgb 9.7 L (11.5-15.3) g/dL Hct 28.6 L (37.0-47.0) % MCV 76.7 L (81-99) fL MCH 26.0 L (28.0-34.0) pg MCHC 33.9 (30.0-36.0) g/dL RDW 13.7 (12.1-15.1) % Plt Count 375 (130-400) 10^3/c mm MPV 9.6 (7.4-10.4) fL Neut % (Auto) 64.9 % Lymph % (Auto) 22.6 % Rolette % (Auto) 10.6 % Eos % (Auto) 1.1 % Baso % (Auto) 0.4 % Neut # (Auto) 5.54 (1.8-7.7) 10^3/u L Lymph # (Auto) 1.9 (0.8-4.8) 10^3/u L Rolette # (Auto) 0.9 (0.2-0.9) 10^3/u L Eos # (Auto) 0.1 (0.0-0.8) 10^3/u L Baso # (Auto) 0.0 (0.0-0.1) 10^3/u L Nucleated RBC % (a uto) 0 % Nucleated RBCs # 0.0 /100WBC Sodium 122 L (136-145) mmol/L Potassium 3.3 L (3.5-5.1) mmol/L Chloride 90 L (98-107) mmol/L Carbon Dioxide 22 (22-29) mmol/L Anion Gap 13.3 (5-19) BUN 9 (8-23) mg/dL Creatinine 0.7 (0.5-0.9) mg/dL GFR Calculation 84.0 L (90-130) mL/min Glucose 71 (65-115) mg/dL Calculated Osmolal ity 251 L (285-295) mOsm/k g Calcium 8.6 (8.5-10.5) mg/dL Total Bilirubin 0.2 (0.15-1.2) mg/dL AST 9 (0-32) U/L ALT 9 (0-33) U/L Alkaline Phosphata se 100 (35-105) IU/L Total Protein 5.7 L (6.6-8.7) g/dL Albumin 3.4 L (3.5-5.2) g/dL Globulin 2.3 (1.3-4.6) g/dL EKG Data^: EKG 1: Attestation: I personally reviewed and interpreted this EKG as follows: EKG interpretation date: 02/22/20 EKG interpretation time: 16:30 Interpretation: nsr hr [address] or t wave abnormalities qrs 93 qtc 449 Discharge Plan Discharge Patient Disposition: Admitted As Inpatient Clinical Impression: Hyponatremia, Syncope Condition: Stable Coding Level of Care Code ED [employer] Section Foreman for Padminig Fwd Exam Comprehensive
[2020-02-22 16:55] LABS: Basophils % 0.4 %; Eosinophils # 0.1 10^3/uL (0.0-0.8); Eosinophils % 1.1 %; Hematocrit 28.6 % (37.0-47.0); Hemoglobin 9.7 g/dL (11.5-15.3); Lymphocytes # 1.9 10^3/uL (0.8-4.8); Lymphocytes % 22.6 %; Mean Corpuscular HGB Conc 33.9 g/dL (30.0-36.0); Mean Corpuscular Volume 76.7 fL (81-99); Mean Platelet Volume 9.6 fL (7.4-10.4); Monocytes # 0.9 10^3/uL (0.2-0.9); Monocytes % 10.6 %; Neutrophils # 5.54 10^3/uL (1.8-7.7); Neutrophils % 64.9 %; Nucleated Red Blood Cells % 0 %; Platelet Count 375 10^3/cmm (130-400); Red Blood Count 3.73 10^6/uL (4.1-5.3); Red Cell Distribution Width 13.7 % (12.1-15.1); White Blood Count 8.5 10^3/uL (4.0-10.0)
[2020-02-22 17:09] LABS: Alanine Aminotransferase 9 U/L (0-33); Albumin Level 3.4 g/dL (3.5-5.2); Alkaline Phosphatase 100 IU/L (35-105); Anion Gap 13.3 (5-19); Aspartate Amino Transferase 9 U/L (0-32); Blood Urea Nitrogen 9 mg/dL (8-23); Calcium 8.6 mg/dL (8.5-10.5); Carbon Dioxide 22 mmol/L (22-29); Chloride 90 mmol/L (98-107); Globulin 2.3 g/dL (1.3-4.6); Glucose 71 mg/dL (65-115); Osmolality Calculated 251 mOsm/kg (285-295); Potassium 3.3 mmol/L (3.5-5.1); Sodium 122 mmol/L (136-145); Total Bilirubin 0.2 mg/dL (0.15-1.2); Total Protein 5.7 g/dL (6.6-8.7)
[2020-02-22] MEDS: sodium chloride 0.9% 1,000 ML 999 ML IV (17:31)
--- NOTE | 2020-02-22 17:59 | PC.NURSE ---
report given to sarahy long
--- NOTE | 2020-02-22 18:06 | P.HP_ITS ---
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 Patient presents to [facility] with , due to complaints of syncopal episode. Patient's very drowsy this afternoon, tells me she did not sleep at all last night, follows all commands, alert oriented x3, but is quite drowsy and snoring and sleeping. Patient tells me that she has been doing well, currently on a mixed soft mechanical diet with her PEG tube feedings, she ambulates on her own, no falls, no injuries, has been doing well, has not been taking any of the medications and we told her to not take, she did take trazodone this morning because she had a rough night. Roughly this afternoon, she was seeing Dr. Flores, in his office, she was getting up from a seated position, when she passed out, her and Dr. Flores witnessed this, she was arousable, but with passed out into the chair, this would happen a few times, lasting about a minute, she was fully awake but has some postictal confusion, no seizure-like episodes witnessed, no focal neurologic deficits, no paresthesias, no facial droop, no urinary or bowel incontinence. Patient has been denies that she has been drinking more than 1800 cc, does not drink alcohol, according to him she has been doing relatively well Review of Systems Const: Denies: fever(s), chills, fatigue or malaise Eyes: Denies: change in vision or blurry vision ENMT: Denies: nasal congestion Card: Denies: chest pain or palpitations Resp: Denies: dyspnea, productive cough, non-productive cough or wheezing GI: Denies: abdominal pain, nausea, vomiting, hematemesis, diarrhea, constipation, hematochezia or melena : Denies: flank pain, dysuria or urinary frequency Musc: Denies: neck pain or back pain Skin/Breast: Denies: rash Neuro: Denies: headache(s), dizziness or vertigo Psych: Denies: anxiety or depression Endo: Denies: polyuria or polydipsia Medications/Allergies Home Medications Medication Instructions Recorded Confirmed Last Taken Type aspirin [Aspir-81] 81 mg PO DAILY 04/09/19 02/22/20 02/21/20 History atorvastatin 80 mg PO QPM 04/09/19 02/22/20 02/21/20 History levothyroxine 75 mcg PO DAILY 04/09/19 02/22/20 02/21/20 History pantoprazole 40 mg PO DAILY 04/09/19 02/22/20 02/21/20 History glimepiride 4 mg PO DAILY 02/06/20 02/22/20 02/21/20 History metformin 1,000 mg PO BID 02/06/20 02/22/20 02/21/20 History clopidogrel 75 mg PO DAILY #30 tab 02/11/20 02/22/20 02/21/20 Rx hydralazine 25 mg PO TID #90 tab 02/11/20 02/22/20 02/21/20 Rx metoprolol tartrate 50 mg PO BID #60 tab 02/11/20 02/22/20 02/21/20 Rx Remeron 15 mg PO BEDTIME 02/22/20 02/22/20 02/21/20 History acetaminophen [Tylenol] 650 mg PO PRN 02/22/20 02/22/20 02/22/20 History insulin aspart U-100 [Novolog See Rx Instructions .ROUTE .COMPLEX 02/22/20 02/22/20 Unknown History Flexpen U-100 Insulin] insulin glargine [Lantus U-100 13 unit SUBCUT DAILY 02/22/20 02/22/20 02/21/20 History Insulin] 14 units Allergies Allergy/AdvReac Type Severity Reaction Status Date / Time No Known Allergies Allergy Verified 02/22/20 16:22 PFSH Acute PFSH: Medical History Anemia C. 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, recurrent severe without psychotic features Morbid obesity Post-traumatic stress disorder, chronic Surgical History H/O esophagogastroduodenoscopy H/O: hysterectomy History of bunionectomy bilateral Hx of cholecystectomy Status post colonoscopy Family History Other CAD (coronary artery disease) Cancer Diabetes Hypertension Denies family history of Anesthesia complication Bleeding disorder Social History Smoking and tobacco status: current every day smoker cigars Cigar details: 1 PPD Smoking risk assessment/counseling performed?: No Alcohol intake: former Former alcohol use details: Reportedly has not had any alcohol since June Household members: spouse Housing: Manufactured/Mobile home Marital status: Current occupational status: retired History of recent travel: No Vitals/I&O/Wt Last Vital Signs Temp 97.9 F 02/22/20 15:27 Pulse 76 02/22/20 15:27 Resp 16 02/22/20 15:27 BP 111/65 02/22/20 15:27 Pulse Ox 96 02/22/20 15:27 Weight last 48 hrs Weight 92.533 kg Physical Exam Const: COMMON NORMALS: no acute distress and patient oriented x3 GENERAL APPEARANCE: cooperative OTHER: Quite drowsy, falls asleep, snoring HENMT: COMMON NORMALS: normocephalic HEAD & SCALP: normocephalic Eye: COMMON NORMALS: Equal, round and reactive pupils present GENERAL EYE: appearance normal, both eyes and all related structures PUPIL: Yes Equal, round and reactive pupils present Neck/C-Spine: COMMON NORMALS: full ROM, no lymphadenopathy, no JVD and Thyroid normal THYROID: Thyroid normal Lymph: LYMPHATIC: no lymphadenopathy noted Resp: COMMON NORMALS: normal respiratory effort, No retractions, No use of accessory muscles and clear to auscultation bilaterally AUSCULTATION: clear to auscultation bilaterally Cardio: COMMON NORMALS: no JVD, regular rate, regular rhythm, S1 normal heart sound present, S2 normal heart sound present, No gallops present (Cardio), No clicks present (Cardio) and No murmurs present (Cardio) RATE: regular rate RHYTHM: regular rhythm HEART SOUNDS: S1 normal heart sound present and S2 normal heart sound present GI: COMMON NORMALS: Normal to inspection, nondistended, normoactive bowel sounds present, Soft to palpation, non-tender and No hepatosplenomegaly present PALPATION: Yes Soft to palpation and Yes No hepatosplenomegaly present Extremity: COMMON NORMALS: normal to inspection, full ROM and no pedal edema Neuro: COMMON NORMALS: patient oriented x3, CN's II-XII intact bilaterally, moves all extremities and no focal motor deficits Psych: COMMON NORMALS: mental status grossly normal Data : 02/22/20 16:41 02/22/20 16:41 A&P Assessment and plan (1) Acute hyponatremia: -Acute on chronic hyponatremia -Baseline sodium seems around 129-131 -Has had an extensive work-up in the past 6 months -Seems like more like euvolemic hyponatremia -On last admission thought to be secondary to venlafaxine and Seroquel -TSH, cortisol were okay, there was some concerns in the past for adrenal insufficiency, however tests have had mixed results -No excessive consumption of liquids -Does not look dehydrated -We will do urine studies, a.m. cortisol, cosyntropin stimulation test, TSH -We will start her on salt tablets Status: Acute (2) Syncope: -Has had an extensive CVA work-up in the past -cta 01/2020 showed: 1. Bilateral extracranial ICA stenosis 50%. 2. Moderate intracranial atherosclerosis of the cavernous sinuses with stenosis less than 50%. 3. Moderate stenosis 60% origin of the LEFT subclavian artery. -ct head: Brain: Mild cortical volume loss. Mild hypodensities in supratentorial periventricular white matter. No intracranial hemorrhage. Cerebral ventricles: No ventriculomegaly. Bones/joints: Unremarkable. No acute fracture. Paranasal sinuses: Opacification of the right frontal sinus. Small retention cyst or polyp in the right sphenoid sinus. The other sinuses are clear. Mastoid air cells: Visualized mastoid air cells are well aerated. Vasculature: No hyperdense artery. Soft tissues: Unremarkable. -echo 11/2019 1-Normal left ventricular cavity size. Normal left ventricular systolic function. No regional wall motion abnormalities. Left ventricular ejection fraction is estimated at 55 %. Grade I/IV diastolic dysfunction (abnormal relaxation filling pattern), normal to mildly elevated filling pressures. 2-Moderate aortic valve calcification. No aortic valve stenosis. Trace aortic valve regurgitation. 3-Moderately thickened mitral valve. No mitral valve stenosis. Mild mitral valve regurgitation. 4-The right ventricle is normal in size and function. Mild pulmonary hypertension, RVSP 41.2 mmHg. 5-There is no pericardial effusion. 6-When compared to the prior echocardiogram dated 08/26/2019 there is mild tricuspid and mitral valve regurgitation now. -EKG today looks normal sinus rhythm -We will check orthostats -Likely secondary to trazodone, lack of sleep, sleep apnea -We will do telemetry monitoring Status: Acute (3) Diastolic heart failure: Status: Acute Qualifiers: Heart failure chronicity: acute on chronic Qualified Code(s): I50.33 - Acute on chronic diastolic (congestive) heart failure (4) Diabetic gastroparesis: Continue tube feeds, consult speech Status: Acute (5) CKD (chronic kidney disease), stage II: Status: Acute (6) GERD (gastroesophageal reflux disease): Status: Chronic Qualifiers: Esophagitis presence: esophagitis presence not specified Qualified Code(s): K21.9 - Gastro-esophageal reflux disease without esophagitis (7) Hyperlipidemia: Status: Chronic Qualifiers: Hyperlipidemia type: unspecified Qualified Code(s): E78.5 - Hyperlipidemia, unspecified (8) Hypertension: Status: Chronic Qualifiers: Hypertension type: essential hypertension Qualified Code(s): I10 - Essential (primary) hypertension (9) Insulin dependent type 2 diabetes mellitus: Low-dose sliding scale Status: Chronic Attestations Medical Necessity Statement*: Patient requires hospitalization, outpatient with observation, for syncope, hyponatremia Coding Level of Care Code Acute Pharmacy Assistant for [facility] Fwd Diagnoses Acute hyponatremia E87.1 Syncope R55 Diastolic heart failure I50.33 Heart failure chronicity: acute on chronic Diabetic gastroparesis E11.43; K31.84 CKD (chronic kidney disease), stage II N18.2 GERD (gastroesophageal reflux disease) K21.9 Esophagitis presence: esophagitis presence not specified Hyperlipidemia E78.5 Hyperlipidemia type: unspecified Hypertension I10 Hypertension type: essential hypertension Insulin dependent type 2 diabetes mellitus E11.9; Z79.4
--- NOTE | 2020-02-22 18:06 | XR_ITS ---
WS: [id number] Portable AP semiupright chest, 02/22/2020 Clinical Data: syncope Comparison: Portable chest, 02/07/2020. Findings: No nodules, masses or effusions are seen. The heart is normal. The pulmonary vascularity is not increased. No pneumonia or pneumothorax is seen. The aortic arch shows calcification. Stimulator leads end in the mid thoracic epidural space. XR/XR chest 1V portable [id number] Impression: Atherosclerosis.
[2020-02-22 18:30] VITALS: BP 112/62; PULSE 77; RESP 18; O2SAT 97
[2020-02-22 19:42] VITALS: BP 96/60; PULSE 97; RESP 18; TEMP 36.4; O2SAT 94
[2020-02-22] MEDS: sodium chloride 1 gm Tablet PO (19:50)
[2020-02-22] MEDS: enoxaparin 40 mg/0.4 mL Syringe SUBCUT (19:50)
[2020-02-22] MEDS: mirtazapine 15 mg Tablet PO (20:02)
[2020-02-22 20:08] LABS: Potassium, Radom Urine 11 mmol/L; Urine Creatinine 28 mg/dL (28-217)
[2020-02-22 20:09] LABS: Sodium, Urine Result 11 mmol/L; Urine Random Chloride 18 mmol/L; Urine Random Sodium 11 mmol/L
[2020-02-22 20:09] LABS: Glucose Point of Care 135 mg/dL (70-110)
[2020-02-22 20:13] LABS: Eosinophil Urine No Eosinophils Seen; Urine Eosinophil Count 0 (0-0)
[2020-02-22 21:45] VITALS: PULSE 110; O2SAT 95
[2020-02-23] VITALS (8 sets, daily range): BP systolic 100–130; BP diastolic 55–84; PULSE 72–114; RESP 16–22; TEMP 36.6–37.2; O2SAT 94–97
--- NOTE | 2020-02-23 06:00 | ECG_ITS ---
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 Measurements Intervals [place] Rate: 98 P: 68 [place]: 138 QRS: 32 QRSD: 91 T: 48 QT: 359 QTc: 460 Interpretive Statements SINUS RHYTHM WITH MARKED SINUS ARRHYTHMIA Compared to ECG 02/22/2020 16:30:08 No significant changes Electronically Signed On 02-23-2020 17:38:46 LICENSED NUCLEAR CONTROL ROOM OPERATOR by Cecilio Julian M.D. [id number]
[2020-02-23 06:34] LABS: Glucose Point of Care 265 mg/dL (70-110)
[2020-02-23] MEDS: cosyntropin 0.25 mg SDV IVP (07:57)
[2020-02-23] MEDS: sodium chloride 1 gm Tablet PO ×2 (08:49→17:43)
[2020-02-23] MEDS: metoprolol tartrate 50 mg Tablet PO ×2 (08:49→17:43)
[2020-02-23] MEDS: aspirin 81 mg EC Tablet PO (08:49)
[2020-02-23] MEDS: hyDRALAzine 25 mg Tablet PO ×2 (08:49→16:09)
[2020-02-23] MEDS: levothyroxine 150 mcg Tablet 75 MCG PO (08:49)
[2020-02-23] MEDS: clopidogrel 75 mg Tablet PO (08:50)
[2020-02-23] MEDS: pantoprazole DR 40 mg Tablet PO (08:50)
[2020-02-23] MEDS: insulin glargine 100 units/1 mL 13 UNIT SUBCUT (08:51)
[2020-02-23] MEDS: acetaminophen 325 mg Tablet 650 MG PO ×2 (08:55→17:46)
[2020-02-23] MEDS: ondansetron 2 mg/ML SDV 2 mL 4 MG IVP (09:12)
--- NOTE | 2020-02-23 10:38 | PC.CHAP ---
Pastoral Care Encounter/Spiritual Assessment Type of Contact [X] Declined buccaro visit [] Patient/Family/Request visit [] Outpatient visit [] Follow-up visit [] Physician referral [] Code/Alert [] Routine visit [] Staff referral [] Actively dying [] Patient sleeping [] Family support [] [] Out of room [] Palliative care [] [] Receiving care in room [] Pre-surgical visit [] Trauma [] Long length of stay [] ICU visit [] Other: Relational/Emotional Strength [] Patient feels connected with others/family/visitors/staff [] Distress [] Loneliness/isolation [] Abandonment Spirituality of Patient [] Person of [place] [] Attends Baptism of their [place] [] Believes in Prayer [] Reads Bible or Scientologist materials [] There are Spiritual issues to be addressed [facility] Specialist Interventions [] Prayer [] Active listening [] Non-anxious presence [] Spiritual/emotional support [] Crisis/trauma care [] Spiritual counseling [] Bereavement support [] Provided bereavement packet [] Provided Bible/devotional materials [] Provided toy/stuffed animal, coloring book to patient or family member [] Provided Communion [] Anointing/[place] [] Salvation [] Completed spiritual assessment [] Other: Impact on Illness or Injury [] Angry [] Fearful [] Anxious [] Often cries [] Exhaustion [] Unable to work [] Unable to attend religious [] Unable to walk/stand [] Unable to read [] Unable to drive [] Unable to eat/drink [] Unable to sleep [] Unable to be with family [] Patient intubated [] Other: Summary Declined buccaro visit Time spent with patient 5 mins
[2020-02-23 10:59] LABS: Glucose Point of Care 148 mg/dL (70-110)
[2020-02-23] MEDS: TRAMadol 50 mg Tablet 25 MG PO (12:10)
[2020-02-23 12:18] LABS: Cosyntropin 30 Minute 26.16 mcg/dL
[2020-02-23 12:22] LABS: Cosyntropin 1 Hour 33.52 mcg/dL
[2020-02-23 12:34] LABS: Basophils % 0.2 %; Hemoglobin 9.8 g/dL (11.5-15.3); Lymphocytes # 1.1 10^3/uL (0.8-4.8); Lymphocytes % 10.3 %; Mean Corpuscular HGB Conc 32.7 g/dL (30.0-36.0); Mean Corpuscular Hemoglobin 25.9 pg (28.0-34.0); Mean Corpuscular Volume 79.4 fL (81-99); Mean Platelet Volume 9.7 fL (7.4-10.4); Monocytes # 0.6 10^3/uL (0.2-0.9); Monocytes % 5.4 %; Neutrophils # 8.76 10^3/uL (1.8-7.7); Neutrophils % 83.8 %; Nucleated Red Blood Cells % 0 %; Platelet Count 395 10^3/cmm (130-400); Red Blood Count 3.78 10^6/uL (4.1-5.3); Red Cell Distribution Width 14.2 % (12.1-15.1); White Blood Count 10.5 10^3/uL (4.0-10.0)
[2020-02-23 12:51] LABS: Alanine Aminotransferase 10 U/L (0-33); Albumin Level 3.8 g/dL (3.5-5.2); Alkaline Phosphatase 120 IU/L (35-105); Anion Gap 15.2 (5-19); Aspartate Amino Transferase 11 U/L (0-32); Blood Urea Nitrogen 10 mg/dL (8-23); Calcium 9.1 mg/dL (8.5-10.5); Carbon Dioxide 25 mmol/L (22-29); Chloride 93 mmol/L (98-107); Globulin 2.3 g/dL (1.3-4.6); Glucose 177 mg/dL (65-115); Magnesium 1.4 mg/dL (1.7-2.3); Osmolality Calculated 271 mOsm/kg (285-295); Phosphorus 3.8 mg/dL (2.5-4.5); Potassium 4.2 mmol/L (3.5-5.1); Sodium 129 mmol/L (136-145); Thyroid Stimulating Hormone 0.82 uIU/mL (0.27-4.20); Total Bilirubin 0.2 mg/dL (0.15-1.2); Total Protein 6.1 g/dL (6.6-8.7)
--- NOTE | 2020-02-23 15:25 | P.PN_ITS ---
Subjective Subjective: Interval history: This morning, patient is alert oriented x3, less sleepy, but is tired, she had an episode of nausea this morning, she tells me that she vomited up her breakfast, no headaches, no blurry vision, no lightheadedness, no dizziness, no chest pain, no bloody or black stools Vitals/I&O/Wt Last Vital Signs Temp 98.2 F 02/23/20 11:35 Pulse 80 02/23/20 11:35 Resp 19 H 02/23/20 11:35 BP 100/65 02/23/20 11:35 Pulse Ox 95 02/23/20 11:35 02/23/20 02/23/20 02/23/20 06:59 14:59 22:59 Intake Total 360 / 420 1840 / 1840 Output Total 500 / 900 Balance -140 / -480 1840 / 1840 Weight last 48 hrs Weight 92.533 kg Physical Exam Const: COMMON NORMALS: no acute distress and patient oriented x3 HENMT: COMMON NORMALS: normocephalic HEAD & SCALP: normocephalic Neck/C-Spine: COMMON NORMALS: no JVD Resp: COMMON NORMALS: normal respiratory effort, No retractions, No use of accessory muscles and clear to auscultation bilaterally AUSCULTATION: clear to auscultation bilaterally Cardio: COMMON NORMALS: no JVD, regular rate, regular rhythm, S1 normal heart sound present and S2 normal heart sound present RATE: regular rate RHYTHM: regular rhythm HEART SOUNDS: S1 normal heart sound present and S2 normal heart sound present GI: COMMON NORMALS: Normal to inspection, nondistended, normoactive bowel sounds present, Soft to palpation, non-tender, No hepatosplenomegaly present, no masses and no bruits PALPATION: Yes Soft to palpation and Yes No hepatosplenomegaly present Extremity: COMMON NORMALS: capillary refill normal, no clubbing, cyanosis or edema, no calf tenderness and no pedal edema Neuro: COMMON NORMALS: patient oriented x3 Psych: COMMON NORMALS: mental status grossly normal Data : 02/23/20 12:22 02/23/20 09:19 A&P Assessment and plan (1) Acute hyponatremia: -Acute on chronic hyponatremia -currently 129 -Baseline sodium seems around 129-131 -Has had an extensive work-up in the past 6 months -Seems like more like euvolemic hyponatremia -On last admission thought to be secondary to venlafaxine and Seroquel -TSH, cortisol were okay, there was some concerns in the past for adrenal insufficiency, however tests have had mixed results -No excessive consumption of liquids -Does not look dehydrated -We will do urine studies, a.m. cortisol, cosyntropin stimulation test, currently pending -Continue salt tablets Status: Acute (2) Syncope: -Has had an extensive CVA work-up in the past -cta 01/2020 showed: 1. Bilateral extracranial ICA stenosis 50%. 2. Moderate intracranial atherosclerosis of the cavernous sinuses with stenosis less than 50%. 3. Moderate stenosis 60% origin of the LEFT subclavian artery. -ct head: Brain: Mild cortical volume loss. Mild hypodensities in supratentorial periventricular white matter. No intracranial hemorrhage. Cerebral ventricles: No ventriculomegaly. Bones/joints: Unremarkable. No acute fracture. Paranasal sinuses: Opacification of the right frontal sinus. Small retention cyst or polyp in the right sphenoid sinus. The other sinuses are clear. Mastoid air cells: Visualized mastoid air cells are well aerated. Vasculature: No hyperdense artery. Soft tissues: Unremarkable. -echo 11/2019 1-Normal left ventricular cavity size. Normal left ventricular systolic function. No regional wall motion abnormalities. Left ventricular ejection fraction is estimated at 55 %. Grade I/IV diastolic dysfunction (abnormal relaxation filling pattern), normal to mildly elevated filling pressures. 2-Moderate aortic valve calcification. No aortic valve stenosis. Trace aortic valve regurgitation. 3-Moderately thickened mitral valve. No mitral valve stenosis. Mild mitral valve regurgitation. 4-The right ventricle is normal in size and function. Mild pulmonary hypertension, RVSP 41.2 mmHg. 5-There is no pericardial effusion. 6-When compared to the prior echocardiogram dated 08/26/2019 there is mild tricuspid and mitral valve regurgitation now. -EKG today looks normal sinus rhythm -We will check orthostats -Likely secondary to trazodone, lack of sleep, sleep apnea -We will do telemetry monitoring -Neurochecks Status: Acute (3) Diastolic heart failure: Status: Acute Qualifiers: Heart failure chronicity: acute on chronic Qualified Code(s): I50.33 - Acute on chronic diastolic (congestive) heart failure (4) Diabetic gastroparesis: Continue tube feeds, consult speech Status: Acute (5) CKD (chronic kidney disease), stage II: Status: Acute (6) GERD (gastroesophageal reflux disease): Status: Chronic Qualifiers: Esophagitis presence: esophagitis presence not specified Qualified Code(s): K21.9 - Gastro-esophageal reflux disease without esophagitis (7) Hyperlipidemia: Status: Chronic Qualifiers: Hyperlipidemia type: unspecified Qualified Code(s): E78.5 - Hyperlipidemia, unspecified (8) Hypertension: Status: Chronic Qualifiers: Hypertension type: essential hypertension Qualified Code(s): I10 - Essential (primary) hypertension (9) Insulin dependent type 2 diabetes mellitus: Low-dose sliding scale Status: Chronic Additional A&P Information Patient requires hospitalization for hyponatremia, salt tablets for hyponatremia Attestations Medical Necessity Statement*: Patient requires hospitalization for hyponatremia Coding Level of Care Code Acute Administrator [facility] Care Facility for g Fwd Diagnoses Acute hyponatremia E87.1 Syncope R55 Diastolic heart failure I50.33 Heart failure chronicity: acute on chronic Diabetic gastroparesis E11.43; K31.84 CKD (chronic kidney disease), stage II N18.2 GERD (gastroesophageal reflux disease) K21.9 Esophagitis presence: esophagitis presence not specified Hyperlipidemia E78.5 Hyperlipidemia type: unspecified Hypertension I10 Hypertension type: essential hypertension Insulin dependent type 2 diabetes mellitus E11.9; Z79.4
[2020-02-23 17:01] LABS: Glucose Point of Care 249 mg/dL (70-110)
[2020-02-23] MEDS: atorvastatin 40 mg Tablet 80 MG PO (17:43)
[2020-02-23] MEDS: magnesium oxide 400 mg tablet PO (17:43)
[2020-02-23] MEDS: enoxaparin 40 mg/0.4 mL Syringe SUBCUT (20:44)
[2020-02-23] MEDS: mirtazapine 15 mg Tablet PO (20:44)
[2020-02-23 20:51] LABS: Glucose Point of Care 258 mg/dL (70-110)
[2020-02-24] VITALS: BP 111/72; PULSE 77; RESP 17; TEMP 36.7; O2SAT 96
[2020-02-24] MEDS: acetaminophen 325 mg Tablet 650 MG PO (02:30)
[2020-02-24 04:00] VITALS: BP 129/79; PULSE 72; RESP 21; TEMP 37; O2SAT 93
[2020-02-24 05:37] LABS: Basophils % 0.5 %; Eosinophils # 0.1 10^3/uL (0.0-0.8); Eosinophils % 1.1 %; Hematocrit 27.7 % (37.0-47.0); Lymphocytes # 3.6 10^3/uL (0.8-4.8); Lymphocytes % 44.7 %; Mean Corpuscular HGB Conc 32.5 g/dL (30.0-36.0); Mean Corpuscular Hemoglobin 26.2 pg (28.0-34.0); Mean Corpuscular Volume 80.8 fL (81-99); Mean Platelet Volume 9.9 fL (7.4-10.4); Monocytes # 0.8 10^3/uL (0.2-0.9); Monocytes % 9.6 %; Neutrophils # 3.51 10^3/uL (1.8-7.7); Neutrophils % 43.7 %; Nucleated Red Blood Cells % 0 %; Platelet Count 366 10^3/cmm (130-400); Red Blood Count 3.43 10^6/uL (4.1-5.3); Red Cell Distribution Width 14.4 % (12.1-15.1)
--- NOTE | 2020-02-24 06:00 | ECG_ITS ---
[facility] Test Date: 2020-02-24 Pat Name: Ingris Mendosa Department: Room: 253 Gender: Female Special Education Bus Driver: CHRISTY : 1955 Requested By: Kurt Zamarripa Order Number: [id number] Danny MD: Quinton Vital M.D. Measurements Intervals [place] Rate: 71 P: 24 [place]: 147 QRS: 41 QRSD: 88 T: 50 QT: 388 QTc: 424 Interpretive Statements SINUS RHYTHM Compared to ECG 02/23/2020 06:06:17 Sinus arrhythmia no longer present Electronically Signed On 02-24-2020 19:31:21 HEAD MEN'S TENNIS COACH by Quinton Vital M.D. [id number]
[2020-02-24 06:07] LABS: Alanine Aminotransferase 6 U/L (0-33); Albumin Level 2.9 g/dL (3.5-5.2); Alkaline Phosphatase 95 IU/L (35-105); Aspartate Amino Transferase 11 U/L (0-32); Blood Urea Nitrogen 7 mg/dL (8-23); Calcium 8.2 mg/dL (8.5-10.5); Carbon Dioxide 22 mmol/L (22-29); Chloride 93 mmol/L (98-107); Globulin 2.3 g/dL (1.3-4.6); Glucose 215 mg/dL (65-115); Magnesium 1.3 mg/dL (1.7-2.3); Osmolality Calculated 262 mOsm/kg (285-295); Phosphorus 2.7 mg/dL (2.5-4.5); Sodium 124 mmol/L (136-145); Total Bilirubin 0.2 mg/dL (0.15-1.2); Total Protein 5.2 g/dL (6.6-8.7)
[2020-02-24 06:10] LABS: Anion Gap 13.1 (5-19); Potassium 4.1 mmol/L (3.5-5.1)
[2020-02-24 06:36] LABS: Glucose Point of Care 220 mg/dL (70-110)
[2020-02-24 08:20] VITALS: BP 135/65; PULSE 76; RESP 16; TEMP 36.4; O2SAT 96
[2020-02-24] MEDS: sodium chloride 1 gm Tablet PO (08:47)
[2020-02-24] MEDS: magnesium oxide 400 mg tablet PO (08:47)
[2020-02-24] MEDS: aspirin 81 mg EC Tablet PO (08:47)
[2020-02-24] MEDS: levothyroxine 150 mcg Tablet 75 MCG PO (08:48)
[2020-02-24] MEDS: hyDRALAzine 25 mg Tablet PO (08:48)
[2020-02-24] MEDS: metoprolol tartrate 50 mg Tablet PO (08:48)
[2020-02-24] MEDS: pantoprazole DR 40 mg Tablet PO (08:48)
[2020-02-24] MEDS: clopidogrel 75 mg Tablet PO (08:48)
[2020-02-24] MEDS: insulin glargine 100 units/1 mL 13 UNIT SUBCUT (08:49)
[2020-02-24] MEDS: ondansetron 2 mg/ML SDV 2 mL 4 MG IVP (10:03)
[2020-02-24] MEDS: TRAMadol 50 mg Tablet 25 MG PO (10:03)
[2020-02-24 11:04] LABS: Glucose Point of Care 102 mg/dL (70-110)
--- NOTE | 2020-02-24 11:18 | PM.DCS ---
Discharge Providers Date of Admission: 02/22/20 17:22 Date of Discharge: February 24, 2020 Attending Provider at Admission: Kurt Zamarripa MD Attending Provider at Discharge: Kurt Zamarripa MD Primary Care Provider: KATRINA Cash Diagnoses at Discharge Discharge Diagnosis (1) Acute hyponatremia: Status: Acute (2) Syncope: Status: Acute (3) Diastolic heart failure: Status: Acute Qualifiers: Heart failure chronicity: acute on chronic Qualified Code(s): I50.33 - Acute on chronic diastolic (congestive) heart failure (4) Diabetic gastroparesis: Status: Acute (5) CKD (chronic kidney disease), stage II: Status: Acute (6) GERD (gastroesophageal reflux disease): Status: Chronic Qualifiers: Esophagitis presence: esophagitis presence not specified Qualified Code(s): K21.9 - Gastro-esophageal reflux disease without esophagitis (7) Hyperlipidemia: Status: Chronic Qualifiers: Hyperlipidemia type: unspecified Qualified Code(s): E78.5 - Hyperlipidemia, unspecified (8) Hypertension: Status: Chronic Qualifiers: Hypertension type: essential hypertension Qualified Code(s): I10 - Essential (primary) hypertension (9) Insulin dependent type 2 diabetes mellitus: Status: Chronic Reason for Visit Reason for Visit: SYNCOPAL EPISODE Hospital Course Hospital Course Ingris Mendosa is a 64 year old female with a past medical history of obesity, hypertension, dyslipidemia, type 2 diabetes mellitus, hypothyroidism, CKD, major depressive disorder, 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 Patient presents to [facility] with , due to complaints of syncopal episode. For patient's syncopal episode, patient was quite drowsy on admission, throughout her admission her mentation returned back to baseline, alert oriented x3, answering all questions appropriately. -Has had an extensive CVA work-up in the past -cta 01/2020 showed: 1. Bilateral extracranial ICA stenosis 50%. 2. Moderate intracranial atherosclerosis of the cavernous sinuses with stenosis less than 50%. 3. Moderate stenosis 60% origin of the LEFT subclavian artery. -ct head: Brain: Mild cortical volume loss. Mild hypodensities in supratentorial periventricular white matter. No intracranial hemorrhage. Cerebral ventricles: No ventriculomegaly. Bones/joints: Unremarkable. No acute fracture. Paranasal sinuses: Opacification of the right frontal sinus. Small retention cyst or polyp in the right sphenoid sinus. The other sinuses are clear. Mastoid air cells: Visualized mastoid air cells are well aerated. Vasculature: No hyperdense artery. Soft tissues: Unremarkable. -echo 11/2019 1-Normal left ventricular cavity size. Normal left ventricular systolic function. No regional wall motion abnormalities. Left ventricular ejection fraction is estimated at 55 %. Grade I/IV diastolic dysfunction (abnormal relaxation filling pattern), normal to mildly elevated filling pressures. 2-Moderate aortic valve calcification. No aortic valve stenosis. Trace aortic valve regurgitation. 3-Moderately thickened mitral valve. No mitral valve stenosis. Mild mitral valve regurgitation. 4-The right ventricle is normal in size and function. Mild pulmonary hypertension, RVSP 41.2 mmHg. 5-There is no pericardial effusion. 6-When compared to the prior echocardiogram dated 08/26/2019 -Was not clinically dehydrated on examination, orthostats were within normal limits -Clinically this did not seem like a true syncopal episode, patient was much more drowsy, as she admits that she used trazodone on the morning before she went to her doctor's appointment, and this trazodone is not prescribed to her -Advised to stop trazodone use -No seizure-like episodes, no strokelike symptoms, discharged home with instructions to not use any narcotics, no benzos, or any medications are not prescribed For her acute on chronic hyponatremia, patient's baseline sodium is anywhere between 129-131, serum sodiums got as high as 129 during her admission, she was relatively asymptomatic, I do not feel her syncopal episode was related to the hyponatremia. I have reviewed patient's extensive work-up in the past for hyponatremia, she has seen multiple surveillance analyst, has had an extensive and exhaustive work-up, seems more like euvolemic hyponatremia, in the past it was thought to be related to psychogenic polydipsia at times, however she is adamant that she has not taken more than 1800 cc as prescribed, and as inpatient she was kept on fluid restrictions and her serum sodium fluctuated between 124-1 29 so I do not think that psychogenic polydipsia is playing a significant role currently. Patient's urine sodium and urine osmolality were very nonspecific. However review of her previous cosyntropin stimulation test and current cosyntropin stimulation test show that her a.m. cortisol are quite low. Her response is adequate although. Thus her hyponatremia has quite a mixed picture, and she has had multiple admissions for this exact issue, without any's real solution or answer. Given her persistently low serum sodium, I have presumptively diagnosed her with adrenal insufficiency. Have discharged her on prednisone 5 mg daily, fludrocortisone 0.1 mg daily, salt tablets, follow-up with endocrinology in 1 week. Given that she is being discharged on prednisone, has type 2 diabetes, I have discharged her on a aspart sliding scale, to be only used if her blood sugars are greater than 250, detailed instructions were provided, in addition to hypoglycemia instructions. Physical Exam Const: COMMON NORMALS: no acute distress and patient oriented x3 HENMT: COMMON NORMALS: normocephalic HEAD & SCALP: normocephalic Neck/C-Spine: COMMON NORMALS: no JVD Resp: COMMON NORMALS: normal respiratory effort, No retractions, No use of accessory muscles and clear to auscultation bilaterally AUSCULTATION: clear to auscultation bilaterally Cardio: COMMON NORMALS: no JVD, regular rate, regular rhythm, S1 normal heart sound present and S2 normal heart sound present RATE: regular rate RHYTHM: regular rhythm HEART SOUNDS: S1 normal heart sound present and S2 normal heart sound present GI: COMMON NORMALS: Normal to inspection, nondistended, normoactive bowel sounds present, Soft to palpation, non-tender, No hepatosplenomegaly present, no masses and no bruits PALPATION: Yes Soft to palpation and Yes No hepatosplenomegaly present Extremity: COMMON NORMALS: capillary refill normal, no clubbing, cyanosis or edema, no calf tenderness and no pedal edema Neuro: COMMON NORMALS: patient oriented x3 Psych: COMMON NORMALS: mental status grossly normal Discharge Data Data Completed and Pending: Completed Studies During Hospitalization Category Date Time Status XR chest 1V eduardo ble [id number] Stat Exams 02/22/20 18:06 Completed Pending at discharge Category Date Time Status Complete Blood Co unt w/Auto AM LABS Lab 02/25/20 04:00 Ordered Comprehensive Met abolic Panel AM LA BS Lab 02/25/20 04:00 Ordered Magnesium AM LABS Lab 02/25/20 04:00 Ordered Osmolality Urine Stat Lab 02/22/20 18:12 Received Phosphorus AM LAB S Lab 02/25/20 04:00 Ordered Urine Protein Emily ctrop Random Stat Lab 02/22/20 18:12 Received Labs from last 24 hours 02/24/20 02/24/20 02/24/20 10:54 06:24 05:00 WBC RBC Hgb Hct MCV MCH MCHC RDW Plt Count MPV Neut % (Auto) Lymph % (Auto) Swift % (Auto) Eos % (Auto) Baso % (Auto) Neut # (Auto) Lymph # (Auto) Swift # (Auto) Eos # (Auto) Baso # (Auto) Nucleated RBC % (a uto) Nucleated RBCs # Sodium 124 L Potassium 4.1 Chloride 93 L Carbon Dioxide 22 Anion Gap 13.1 BUN 7 L Creatinine 0.6 GFR Calculation 100.0 Glucose 215 H POC Glucose 102 220 Calculated Osmolal ity 262 L Calcium 8.2 L Phosphorus 2.7 Magnesium 1.3 L Total Bilirubin 0.2 AST 11 ALT 6 Alkaline Phosphata se 95 Total Protein 5.2 L Albumin 2.9 L Globulin 2.3 TSH Cortisol Response 02/24/20 02/23/20 02/23/20 05:00 20:19 16:46 WBC 8.0 RBC 3.43 L Hgb 9.0 L Hct 27.7 L MCV 80.8 L MCH 26.2 L MCHC 32.5 RDW 14.4 Plt Count 366 MPV 9.9 Neut % (Auto) 43.7 Lymph % (Auto) 44.7 Swift % (Auto) 9.6 Eos % (Auto) 1.1 Baso % (Auto) 0.5 Neut # (Auto) 3.51 Lymph # (Auto) 3.6 Swift # (Auto) 0.8 Eos # (Auto) 0.1 Baso # (Auto) 0.0 Nucleated RBC % (a uto) 0 Nucleated RBCs # 0.0 Sodium Potassium Chloride Carbon Dioxide Anion Gap BUN Creatinine GFR Calculation Glucose POC Glucose 258 249 Calculated Osmolal ity Calcium Phosphorus Magnesium Total Bilirubin AST ALT Alkaline Phosphata se Total Protein Albumin Globulin TSH Cortisol Response 02/23/20 02/23/20 02/23/20 12:22 09:19 07:02 WBC 10.5 H RBC 3.78 L Hgb 9.8 L Hct 30.0 L MCV 79.4 L MCH 25.9 L MCHC 32.7 RDW 14.2 Plt Count 395 MPV 9.7 Neut % (Auto) 83.8 Lymph % (Auto) 10.3 Swift % (Auto) 5.4 Eos % (Auto) 0.0 Baso % (Auto) 0.2 Neut # (Auto) 8.76 H Lymph # (Auto) 1.1 Swift # (Auto) 0.6 Eos # (Auto) 0.0 Baso # (Auto) 0.0 Nucleated RBC % (a uto) 0 Nucleated RBCs # 0.0 Sodium 129 L Potassium 4.2 Chloride 93 L Carbon Dioxide 25 Anion Gap 15.2 BUN 10 Creatinine 0.8 GFR Calculation 72.0 L Glucose 177 H POC Glucose Calculated Osmolal ity 271 L Calcium 9.1 Phosphorus 3.8 Magnesium 1.4 L Total Bilirubin 0.2 AST 11 ALT 10 Alkaline Phosphata se 120 H Total Protein 6.1 L Albumin 3.8 Globulin 2.3 TSH 0.82 Cortisol Response Vitals: Last Vital Signs Temp 97.5 F L 02/24/20 08:20 Pulse 76 02/24/20 08:20 Resp 16 02/24/20 08:20 BP 135/65 02/24/20 08:20 Pulse Ox 96 02/24/20 08:20 Discharge Plan Discharge Patient Disposition: Home Condition: Stable Prescriptions: New sodium chloride 1 gram Tablet 1 g PO BID 30 Days Qty: 60 RF: 0 prednisolone 5 mg tablet 5 mg PO DAILY 30 Days Qty: 30 RF: 0 fludrocortisone 0.1 mg tablet 0.1 mg PO DAILY 30 Days Qty: 30 RF: 0 Novolog Flexpen U-100 Insulin 100 unit/mL (3 mL) insulin pen See Rx Instructions .ROUTE .COMPLEX 30 Days Qty: 0.3 RF: 0 Continued atorvastatin 80 mg Tablet 80 mg PO QPM RF: 0 aspirin [Aspir-81] 81 mg Tablet,Delayed Release (Dr/Ec) 81 mg PO DAILY RF: 0 levothyroxine 75 mcg Tablet 75 mcg PO DAILY RF: 0 pantoprazole 40 mg Tablet,Delayed Release (Dr/Ec) 40 mg PO DAILY RF: 0 metformin 1,000 mg Tablet 1,000 mg PO BID RF: 0 glimepiride 4 mg tablet 4 mg PO DAILY RF: 0 hydralazine 25 mg Tablet 25 mg PO TID Qty: 90 RF: 0 clopidogrel 75 mg Tablet 75 mg PO DAILY Qty: 30 RF: 0 metoprolol tartrate 50 mg Tablet 50 mg PO BID Qty: 60 RF: 0 Tylenol 325 mg Tablet 650 mg PO PRN RF: 0 Lantus U-100 Insulin 100 unit/mL Solution 13 unit SUBCUT DAILY RF: 0 Novolog Flexpen U-100 Insulin 100 unit/mL (3 mL) Insulin Pen See Rx Instructions .ROUTE .COMPLEX RF: 0 Remeron 15 mg tablet 15 mg PO BEDTIME RF: 0 Discharge Orders: Discharge Order (Routine); Ordered 02/24/20 Ordered By: Kurt Zamarripa Other Ambulatory Orders: Complete Blood Count w/Auto (Routine) Timeframe: 1 Week Location: Determined by Patient Ordered By: Kurt Zamarripa Comprehensive Metabolic Panel (Routine) Timeframe: 1 Week Facility: [facility] - Location: Lab - Main Lab Ordered By: Kurt Zamarripa Referrals: Thu Flores FNP [Primary Care Provider] - Hannah Aguilar MD [Physician] - 1 week (adrenal insufficiency) Discharge Diet: Regular Discharge Activity: Resume usual activity Patient Instructions: Insulin Aspart Protamine/Insulin Aspart (Injection), Hypoglycemia, Hyponatremia (DC), [place] Disease (DC), [place] Disease (GEN) Activity Restrictions/Additional Instructions: -I have provided an insulin sliding scale, to be used if her blood sugars are higher than 260 -Inject 3 times daily, based on blood glucose before meals, only inject if you eat something, -If blood sugar greater than 500 call primary care -If blood sugar less than 60, drink orange juice, come to the emergency room -For your adrenal insufficiency I have discharged you on prednisone 5 mg daily, fludrocortisone 0.1 mg daily, salt tablets, with a follow-up with endocrinology in 1 week -Monitor for lightheadedness, dizziness if so go to the emergency room -Please avoid fluid intake more than 1500 mL Discharge Attestations Time Spent in Discharge Care*: less than 30 min Status at Discharge: Cognitive status at discharge: cognitively intact, Behavioral status at discharge: cooperative, Quality Metrics Clinical Quality Measures During this hospital stay, did patient experience: None Coding Level of Care Code [employer] Serviceperson for [employer] Diagnoses Acute hyponatremia E87.1 Syncope R55 Diastolic heart failure I50.33 Heart failure chronicity: acute on chronic Diabetic gastroparesis E11.43; K31.84 CKD (chronic kidney disease), stage II N18.2 GERD (gastroesophageal reflux disease) K21.9 Esophagitis presence: esophagitis presence not specified Hyperlipidemia E78.5 Hyperlipidemia type: unspecified Hypertension I10 Hypertension type: essential hypertension Insulin dependent type 2 diabetes mellitus E11.9; Z79.4
[2020-02-24 12:28] VITALS: BP 135/65; PULSE 76; RESP 16; O2SAT 98
[2020-02-24] MEDS: fludrocortisone 0.1 mg Tablet PO (12:46)
[2020-02-24] MEDS: predniSONE 5 mg Tablet PO (12:46)
[2020-02-24 13:10] VITALS: BP 135/65; PULSE 76; RESP 16; O2SAT 98
[2020-02-24 14:42] LABS: Creatinine, Random Urine 29 mg/dL (20-275); Protein, Total, Random 7 mg/dL (5-24); Protein/Creatinine Ratio 0.241 (0.021-0.161); Protein/Creatinine Ratio 241 mg/g creat (21-161)
[2020-02-24 16:14] LABS: Osmolality Urine 137 mOsm/kg (50-1200)
--- NOTE | 2020-02-24 16:45 | PC.RESP ---
Smoking Cessation information sent to patient.
[2020-02-27 15:48] LABS: Albumin,Urine Random 100 %; Alpha-1-Globulins Urine Random 0 %; Alpha-2-Globulins Urine Random 0 %; Beta-Globulin,Urine Random 0 %; Gamma Globulin,Urine Random 0 %
== END 2020-02-24 12:45 | disposition home or self-care (01) ==
LOC: ER 17:21 → MEDSURG 02-23 06:33
PROVIDERS: Admitting Provider Family Medicine; Emergency Provider Emergency Medicine; PCP Nurse Practitioner; Visit Provider Family Medicine
DX: E87.1 Hypo-osmolality and hyponatremia (principal); R55 Syncope and collapse; E11.22 Type 2 diabetes mellitus with diabetic chronic kidney disease; I13.0 Hypertensive heart and chronic kidney disease with heart failure and stage 1 through stage 4 chronic kidney disease, or unspecified chronic kidney disease; N18.2 Chronic kidney disease, stage 2 (mild); I50.33 Acute on chronic diastolic (congestive) heart failure; E11.43 Type 2 diabetes mellitus with diabetic autonomic (poly)neuropathy; K31.84 Gastroparesis; K21.9 Gastro-esophageal reflux disease without esophagitis; E78.5 Hyperlipidemia, unspecified; Z79.4 Long term (current) use of insulin; E66.01 Morbid (severe) obesity due to excess calories; Z68.36 Body mass index [BMI] 36.0-36.9, adult; F32.9 Major depressive disorder, single episode, unspecified; Z79.82 Long term (current) use of aspirin; E03.9 Hypothyroidism, unspecified; F17.210 Nicotine dependence, cigarettes, uncomplicated
CPT/HCPCS: 12345; 36415; 36416; 71045; 80053; 82436; 82533; 82570; 82962; 83735; 83935; 84100; 84133; 84300; 84443; 85025; 85999; 92610; 93005; 94664; 96360; 96361; 96372; 96375; 97161; 97165; 97530; 99283; 99285; G0378; J0834; J1650; J1815 ×2; J2405; J7030; J7512

== ENCOUNTER 2020-03-06 17:21 | Emergency (ER) | payer OTHER, MEDICARE, SELFPAY ==
[2020-03-06 17:35] VITALS: BP 131/82; PULSE 79; RESP 16; TEMP 35.5; O2SAT 95; BMI 28.3
--- NOTE | 2020-03-06 17:50 | ED_ITS ---
HPI - Headache General: Chief Complaint: Headache Stated Complaint: Sent from /Severe Headache Time Seen by Provider: 03/06/20 17:40 Source: patient and family (spouse) Mode of arrival: ambulatory Limitations: no limitations History of Present Illness: HPI Narrative: Pleasant 65-year-old female patient presents to the emergency department with gradual onset of, migraine headache . She reports gradual onset that started yesterday. Reports migraine is similar to those previously experienced with exception and encompasses the whole head. She reports migraines are usually unilateral. She denies unilateral flaccidity/weakness. History of hyponatremia. She reports nausea, vomiting x1 this morning. Photophobia and phonophobia. Has attempted Tylenol and aspirin without success. She remains on aspirin and Plavix. Previous CTA head and neck January 2020 with bilateral extracranial ICA stenosis of 50% and moderate atherosclerosis. MD elicited complaint: headache and migraine Pertinent past history: migraines, hypertension and other (Diabetes, hyponatremia) Onset (ago): day(s) (2) Onset description: suddenly, while at rest and on awakening Location: diffuse, down into neck and band-like Severity: similar to previous episodes Quality & Timing: aching, throbbing, sharp, squeezing and constant Exacerbating factors: light and noise Relieving factors: rest and sleep Context: occurred at rest and other (posterior neck pain x 3-4 weeks; radiates upward to the back of the head) Associated symptoms: Reports confusion (chronic per spouse, no change from baseline), nausea, neck stiffness, photophobia, sound sensitivity, vomiting and weakness; Deny chest pain, diaphoresis, eye pain, fever(s), lightheadedness, malaise, rash or seizures Review of Systems General: Reports: 10 or more systems reviewed and unremarkable except in HPI and below Const: Denies: fever(s), malaise or diaphoresis Eyes: Denies: blurry vision or eye redness ENMT: Denies: throat pain, odynophagia, hoarseness, dental pain, disequilibrium, nasal discharge or nasal congestion Card: Denies: chest pain, palpitations, edema, swelling of feet/ankles or lightheadedness Resp: Denies: dyspnea, productive cough, non-productive cough, wheezing or chest congestion GI: Reports: nausea, vomiting, dysphagia (chronic) and other (PE tube due to acute dysphagia; 08/2019); Denies: abdominal pain, coffee ground emesis, diarrhea, belching or pain on defecation : Denies: flank pain, difficulty voiding or dysuria Musc: Denies: back pain Skin/Breast: Denies: rash, pruritus, erythema, changing lesions or changes in skin color Neuro: Reports: headache(s), confusion and difficulty communicating thoughts; Denies: weakness in extremities, difficulty walking, dizziness, behavioral changes or Slurred speech present Psych: Denies: anxiety, depression or change in appetite Jeremiah/Lymph: Denies: easy bruising PFSH ED PFSH: Medical History Anemia C. 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, recurrent severe without psychotic features Morbid obesity Post-traumatic stress disorder, chronic Surgical History H/O esophagogastroduodenoscopy H/O: hysterectomy History of bunionectomy bilateral Hx of cholecystectomy Status post colonoscopy Family History Other CAD (coronary artery disease) Cancer Diabetes Hypertension Denies family history of Anesthesia complication Bleeding disorder Social History Smoking and tobacco status: current every day smoker cigars Cigar details: 1 PPD Smoking risk assessment/counseling performed?: No Alcohol intake: former Former alcohol use details: Reportedly has not had any alcohol since June Household members: spouse Housing: [employer]/Mobile home Marital status: Current occupational status: retired History of recent travel: No Physical Exam Const: COMMON NORMALS: no acute distress, average body habitus, patient oriented x3, no limitations, healthy appearing, alert and well nourished EXAM LIMITATIONS: no altered mental status, no behavioral limitations and no physical limitations GENERAL APPEARANCE: cooperative, well kempt, well developed and well hydrated; not comfortable (in pain), not in distress, not anxious, not combative and not ill appearing NUTRITIONAL APPEARANCE: obese ORIENTATION/CONSCIOUSNESS: Yes awake, Yes oriented to person, Yes oriented to place and Yes oriented to time; not confused and not patient obtunded HENMT: COMMON NORMALS: normocephalic, atraumatic, external ears normal, EAC's normal, TM's normal bilaterally, Normal external nose present, Normal nasal mucous membranes and turbinates present, moist oral mucous membranes and oropharynx normal HEAD & SCALP: normal to inspection, normocephalic, atraumatic and scalp tenderness (global); no Acrocyanosis present, no laceration and no raccoon eyes FACE & SINUS: normal facial exam, sinuses nontender and face symmetric; no sinus tenderness, no ecchymosis, no edema and no Acrocyanosis present NOSE: Normal external nose present, Normal nares present, Normal nasal mucous membranes and turbinates present, Normal septum present and No nasal discharge p resent EXTERNAL EAR: Yes external ears normal EXTERNAL AUDITORY CANAL: EAC's normal TYMPANIC MEMBRANE: TM's normal bilaterally MOUTH: Normal oral and palatal mucosa present, lip normal and tongue normal THROAT: posterior oropharynx normal Eye: COMMON NORMALS: Equal, round and reactive pupils present, EOMs intact bilaterally and conjunctivae normal GENERAL EYE: appearance normal, both eyes and all related structures and normal light reflex VISUAL HUSTON: No peripheral vision loss ALIGNMENT: Yes alignment normal PERIORBITAL: periorbital findings normal EYELID: eyelids normal CONJUNCTIVA: Yes conjunctivae normal PUPIL: Yes Equal, round and reactive pupils present, Yes pupil size - right Right pupil size (mm): 4 and Yes pupil size - left Left pupil size (mm): 4 DIRECT OPHTHALMOSCOPY: Yes normal light reflex and Yes photophobia Neck/C-Spine: COMMON NORMALS: full ROM, no lymphadenopathy and supple GENERAL: Yes normal visual inspection, Yes trachea midline, No anterior neck swelling and No lymphadenopathy CERVICAL SPINE: Yes pain with cervical ROM, Yes Cervical spine tenderness, Yes Paracervical muscle tenderness and Yes Trapezius muscle tenderness Lymph: LYMPHATIC: no lymphadenopathy noted Chest: COMMONS NORMALS: normal inspection of the chest and normal palpation of entire chest wall Resp: COMMON NORMALS: normal respiratory effort, No retractions, No use of accessory muscles, clear to auscultation bilaterally and percussion normal EFFORT & INSPECTION: Yes able to speak in complete sentences and No paradoxical thoraco-abdominal movements AUSCULTATION: clear to auscultation bilaterally PERCUSSION: percussion normal Cardio: COMMON NORMALS: regular rate, regular rhythm, S1 normal heart sound present, S2 normal heart sound present and Peripheral pulses 2+ throughout RATE: regular rate RHYTHM: regular rhythm HEART SOUNDS: S1 normal heart sound present and S2 normal heart sound present PERIPHERAL PULSES: Peripheral pulses 2+ throughout GI: COMMON NORMALS: Normal to inspection, nondistended, normoactive bowel sounds present, Soft to palpation and non-tender INSPECTION: Yes normal to inspection, No Abdominal wall edema, No abdominal distension, Yes central obesity and Yes other (PEG tube LUQ) PALPATION: Yes Soft to palpation : COMMON NORMALS: Yes no CVA tenderness BLADDER/KIDNEY EXAM: Yes no CVA tenderness Back/Pelvis: COMMON NORMALS: no CVA tenderness and thoracic and lumbar spine normal to inspection Extremity: COMMON NORMALS: normal to inspection and capillary refill normal Neuro: NERI COMA SCALE: document GCS findings [place] coma scale eye opening: Spontaneous Neri coma scale verbal response: Orientated Neri coma scale motor response: Obey commands Neri coma scale total score: 15 COMMON NORMALS: patient oriented x3 and no focal motor deficits SENSORIUM/ORIENTATION: Yes alert, Yes oriented to person, Yes oriented to place and Yes oriented to time COORDINATION/BALANCE: [id number] test normal SPEECH: speech normal MOTOR EXAM: 5/5 motor strength present throughout COORDINATION: [id number] test normal Psych: COMMON NORMALS: mental status grossly normal, Normal thought process present, cooperative and speech normal APPEARANCE: Yes well kempt ATTITUDE: Yes calm ACTIVITY/MOTOR BEHAVIOR: Yes appropriate eye contact SPEECH: Yes normal speech THOUGHT PROCESS: Normal thought process present THOUGHT CONTENT: Yes Normal thought content present ATTENTION/CONCENTRATION: Yes attention grossly intact MEMORY/COGNITION: Yes memory grossly intact INSIGHT: Good insight present (Psych) JUDGEMENT: Good judgement present (Psych) Skin: COMMON NORMALS: no rashes or lesions noted and turgor normal GENERAL SKIN EXAM: no rashes or lesions noted and turgor normal Course ED course: 65-year-old female patient presents to the emergency department with onset of migraine headache that started yesterday. Serology findings with slight hypokalemia, potassium 3.3, anemia consistent with previous baseline findings, CRP normal, sed rate slightly elevated 21. CT head without intra cranial acute findings, CT cervical spine with chronic degenerative changes and no acute abnormalities. She was treated with Ofirmev and Zofran - nausea and pain resolved, BRANCH P/S 0/10. She slept during her stay in the ED. Spouse states she has appt with PCP tomorrow, [facility] for follow up. Vital Signs: Vital signs: Vital Signs Temperature 96 F L 03/06/20 17:35 Pulse Rate 79 03/06/20 17:35 Respiratory Rate 16 03/06/20 17:35 Blood Pressure 131/82 03/06/20 17:35 Pulse Oximetry 95 03/06/20 17:35 MDM - Headache Lab Data: Labs: Lab Results 03/06/20 03/06/20 03/06/20 Range/Units 19:06 19:06 19:06 WBC 10.3 H (4.0-10.0) 10^3/ uL RBC 3.77 L (4.1-5.3) 10^6/u L Hgb 9.8 L (11.5-15.3) g/dL Hct 30.9 L (37.0-47.0) % MCV 82.0 (81-99) fL MCH 26.0 L (28.0-34.0) pg MCHC 31.7 (30.0-36.0) g/dL RDW 14.7 (12.1-15.1) % Plt Count 377 (130-400) 10^3/c mm MPV 9.3 (7.4-10.4) fL Neut % (Auto) 64.9 % Lymph % (Auto) 25.0 % Bates % (Auto) 8.6 % Eos % (Auto) 0.9 % Baso % (Auto) 0.3 % Neut # (Auto) 6.71 (1.8-7.7) 10^3/u L Lymph # (Auto) 2.6 (0.8-4.8) 10^3/u L Bates # (Auto) 0.9 (0.2-0.9) 10^3/u L Eos # (Auto) 0.1 (0.0-0.8) 10^3/u L Baso # (Auto) 0.0 (0.0-0.1) 10^3/u L Nucleated RBC % (a uto) 0 % Nucleated RBCs # 0.0 /100WBC ESR 21 H (0-15) mm/hr Sodium 134 L (136-145) mmol/L Potassium 3.3 L (3.5-5.1) mmol/L Chloride 100 (98-107) mmol/L Carbon Dioxide 26 (22-29) mmol/L Anion Gap 11.3 (5-19) BUN 7 L (8-23) mg/dL Creatinine 0.7 (0.5-0.9) mg/dL GFR Calculation 83.7 L (90-130) mL/min Glucose 54 L (65-115) mg/dL Calculated Osmolal ity 274 L (285-295) mOsm/k g Calcium 8.5 (8.5-10.5) mg/dL Total Bilirubin 0.2 (0.15-1.2) mg/dL AST 8 (0-32) U/L ALT 7 (0-33) U/L Alkaline Phosphata se 96 (35-105) IU/L C-Reactive Protein 0.9 (0.0-4.9) mg/L Total Protein 6.1 L (6.6-8.7) g/dL Albumin 3.5 (3.5-5.2) g/dL Globulin 2.6 (1.3-4.6) g/dL Imaging Data^: CT Head: Radiologist's impression: [place] [address] CT Scan Report Signed Patient: Ingris Mendosa Unit #: [id number] : 1955 Age/Sex: 65 / F ADM Date: 03/06/20 Loc: ER Room/Bed: Attending Dr: Ordering Provider/Ordering MD: Noemi Rashid Date of Service: 03/06/20 Procedure(s): CT head wo con* [id number] Accession Number(s): [id number] Report Number: [id number] PROCEDURE INFORMATION: Exam: CT Head Without Contrast Exam date and time: 03/06/2020 6:00 PM Age: 65 years old Clinical indication: Pain; Headache; Migraine TECHNIQUE: Imaging protocol: Computed tomography of the head without contrast. Radiation optimization: All CT scans at this facility use at least one of these dose optimization techniques: automated exposure control; mA and/or kV adjustment per patient size (includes targeted exams where dose is matched to clinical indication); or iterative reconstruction. COMPARISON: CT head wo con* [id number] 02/06/2020 7:40 PM RADIATION DOSE METRICS: Total DLP (mGy-cm): 829.57 FINDINGS: Brain: Mild parenchymal volume loss noted. No intracranial hemorrhage noted. No parenchymal edema identified. There is decreased attenuation of the periventricular white matter, consistent with mild microangiopathic chronic white matter disease. Cerebral ventricles: The ventricles are proportional to the sulci. No hydrocephalus is noted. Bones/joints: Unremarkable. No acute fracture. Paranasal sinuses: Opacification of the right frontal sinus. The paranasal sinuses are otherwise clear. Mastoid air cells: Unremarkable as visualized. No mastoid effusion. Soft tissues: Unremarkable. CT/CT head wo con* [id number] IMPRESSION: 1. No acute intracranial abnormality demonstrated. 2. Opacification of the right frontal sinus. The paranasal sinuses are otherwise clear. This is unchanged. Radiation Dose CTDIVOL = (mGy): DLP = 829.57 (mGy-cm) Dictated By: Sheldon Hickey MD Signed By: Sheldon Hickey MD Signed Date/Time: 03/06/201834 DD/ [address]: Radiologist's impression: [place] [address] CT Scan Report Signed Patient: Ingris Mendosa Unit #: [id number] : 1955 Age/Sex: 65 / F ADM Date: 03/06/20 Loc: ER Room/Bed: Attending Dr: Ordering Provider/Ordering MD: Noemi Rashid Date of Service: 03/06/20 Procedure(s): CT cervical spin wo con* [id number] Accession Number(s): [id number] Report Number: [id number] PROCEDURE INFORMATION: Exam: CT Cervical Spine Without Contrast Exam date and time: 03/06/2020 6:00 PM Age: 65 years old Clinical indication: Neck pain; Additional info: Cervical spine tenderness TECHNIQUE: Imaging protocol: Computed tomography images of the cervical spine without contrast. Radiation optimization: All CT scans at this facility use at least one of these dose optimization techniques: automated exposure control; mA and/or kV adjustment per patient size (includes targeted exams where dose is matched to clinical indication); or iterative reconstruction. COMPARISON: CT angio headneck* [id number] 02/10/2020 3:12 PM RADIATION DOSE METRICS: Total DLP (mGy-cm): 478.92 FINDINGS: Bones/joints: 1-2 mm chronic anterior subluxation of C4 on C5, unchanged from 02/10/2020. No acute subluxation demonstrated. Vertebral body heights are preserved. No compression fractures are noted. Discs/Spinal canal/Neural foramina: Degenerative disc narrowing at C5-C6 and C6-C7. No severe spinal canal stenosis or severe neural foraminal stenosis demonstrated. Lungs: The lung apices are unremarkable. Pleural space: No apical pneumothorax demonstrated. Soft tissues: Unremarkable. CT/CT cervical spin wo con* [id number] IMPRESSION: 1. Chronic degenerative changes of the cervical spine. 2. No acute abnormality demonstrated. 3. There is no interval change from the prior examination. Radiation Dose CTDIVOL = (mGy): DLP = 478.92 (mGy-cm) Dictated By: Sheldon Hickey MD Signed By: Sheldon Hickey MD Signed Date/Time: 03/06/201840 DD/ 38 Discharge Plan Discharge Patient Disposition: Home Clinical Impression: Migraine Qualifiers: Migraine type: without aura Status migrainosus presence: with status migrainosus Intractability: intractable Qualified Code(s): G43.011 - Migraine without aura, intractable, with status migrainosus Condition: Stable Prescriptions: No Action atorvastatin 80 mg Tablet 80 mg PO BEDTIME@2200 RF: 0 levothyroxine 75 mcg Tablet 75 mcg PO DAILY@0800 RF: 0 pantoprazole 40 mg Tablet,Delayed Release (Dr/Ec) 40 mg PO DAILY@0800 RF: 0 metformin 1,000 mg Tablet 1,000 mg PO BID@0800,2200 RF: 0 glimepiride 4 mg tablet 4 mg PO DAILY@0800 RF: 0 acetaminophen [Tylenol] 325 mg Tablet 650 mg PO Q4H PRN (Reason: Pain) RF: 0 Lantus U-100 Insulin 100 unit/mL Solution 13 unit SUBCUT DAILY@0800 RF: 0 insulin aspart U-100 [Novolog Flexpen U-100 Insulin] 100 unit/mL (3 mL) Insulin Pen See Rx Instructions .ROUTE .COMPLEX RF: 0 mirtazapine [Remeron] 15 mg tablet 15 mg PO BEDTIME@2200 RF: 0 insulin aspart U-100 [Novolog Flexpen U-100 Insulin] 100 unit/mL (3 mL) insulin pen See Rx Instructions .ROUTE .COMPLEX 30 Days Qty: 0.3 RF: 0 aspirin 325 mg Tablet 325 mg PO DAILY PRN (Reason: Pain) RF: 0 Aspir-81 81 mg Tablet,Delayed Release (Dr/Ec) 81 mg PO DAILY@0800 RF: 0 Vicks DayQuil-NyQuil Cold-Flu 6.25-5-10-325 mg/15 mL Liquid, Sequential 15 ml PO Q6H PRN (Reason: pain/cold symptoms) RF: 0 sodium chloride 1 gram tablet 1 g PO BID@0800,2200 RF: 0 hydralazine 25 mg tablet 25 mg PO TID@08,13,22 RF: 0 clopidogrel 75 mg tablet 75 mg PO DAILY@0800 RF: 0 metoprolol tartrate 50 mg tablet 50 mg PO BID@0800,2200 RF: 0 fludrocortisone 0.1 mg tablet 0.1 mg PO DAILY@0800 RF: 0 prednisolone 5 mg tablet 5 mg PO DAILY@0800 RF: 0 Discharge Orders: Discharge ED (Routine); Ordered 03/06/20 Ordered By: Noemi Rashid Referrals: Thu Flores FNP [Primary Care Provider] - Discharge Diet: Advance as tolerated and Clear Liquid Discharge Activity: Limit activity as instructed Patient Instructions: Migraine Headache (ED), Acute Headache (ED) Activity Restrictions/Additional Instructions: Return to the ED if you experience the worst BRANCH of your life, weakness, or wors ening symptoms such as confusion clear liquid diet then may advance as tolerated, avoid fried, fatty, greasy foods as upset stomach my occur Rest at home today and tomorrow Follow up with [facility] as scheduled tomorrow follow up with your primary care provider this week without fail Coding Level of Care Code ED Commercial Sales Specialist for Navid Fwd Exam Comprehensive
--- NOTE | 2020-03-06 17:59 | CTR_ITS ---
PROCEDURE INFORMATION: Exam: CT Cervical Spine Without Contrast Exam date and time: 03/06/2020 6:00 PM Age: 65 years old Clinical indication: Neck pain; Additional info: Cervical spine tenderness TECHNIQUE: Imaging protocol: Computed tomography images of the cervical spine without contrast. Radiation optimization: All CT scans at this facility use at least one of these dose optimization techniques: automated exposure control; mA and/or kV adjustment per patient size (includes targeted exams where dose is matched to clinical indication); or iterative reconstruction. COMPARISON: CT angio headneck* [id number] 02/10/2020 3:12 PM RADIATION DOSE METRICS: Total DLP (mGy-cm): 478.92 FINDINGS: Bones/joints: 1-2 mm chronic anterior subluxation of C4 on C5, unchanged from 02/10/2020. No acute subluxation demonstrated. Vertebral body heights are preserved. No compression fractures are noted. Discs/Spinal canal/Neural foramina: Degenerative disc narrowing at C5-C6 and C6-C7. No severe spinal canal stenosis or severe neural foraminal stenosis demonstrated. Lungs: The lung apices are unremarkable. Pleural space: No apical pneumothorax demonstrated. Soft tissues: Unremarkable. CT/CT cervical spin wo con* [id number] IMPRESSION: 1. Chronic degenerative changes of the cervical spine. 2. No acute abnormality demonstrated. 3. There is no interval change from the prior examination. Radiation Dose CTDIVOL = (mGy): DLP = 478.92 (mGy-cm)
--- NOTE | 2020-03-06 17:59 | CTR_ITS ---
PROCEDURE INFORMATION: Exam: CT Head Without Contrast Exam date and time: 03/06/2020 6:00 PM Age: 65 years old Clinical indication: Pain; Headache; Migraine TECHNIQUE: Imaging protocol: Computed tomography of the head without contrast. Radiation optimization: All CT scans at this facility use at least one of these dose optimization techniques: automated exposure control; mA and/or kV adjustment per patient size (includes targeted exams where dose is matched to clinical indication); or iterative reconstruction. COMPARISON: CT head wo con* [id number] 02/06/2020 7:40 PM RADIATION DOSE METRICS: Total DLP (mGy-cm): 829.57 FINDINGS: Brain: Mild parenchymal volume loss noted. No intracranial hemorrhage noted. No parenchymal edema identified. There is decreased attenuation of the periventricular white matter, consistent with mild microangiopathic chronic white matter disease. Cerebral ventricles: The ventricles are proportional to the sulci. No hydrocephalus is noted. Bones/joints: Unremarkable. No acute fracture. Paranasal sinuses: Opacification of the right frontal sinus. The paranasal sinuses are otherwise clear. Mastoid air cells: Unremarkable as visualized. No mastoid effusion. Soft tissues: Unremarkable. CT/CT head wo con* [id number] IMPRESSION: 1. No acute intracranial abnormality demonstrated. 2. Opacification of the right frontal sinus. The paranasal sinuses are otherwise clear. This is unchanged. Radiation Dose CTDIVOL = (mGy): DLP = 829.57 (mGy-cm)
[2020-03-06 19:19] LABS: Basophils % 0.3 %; Eosinophils # 0.1 10^3/uL (0.0-0.8); Eosinophils % 0.9 %; Hematocrit 30.9 % (37.0-47.0); Hemoglobin 9.8 g/dL (11.5-15.3); Lymphocytes # 2.6 10^3/uL (0.8-4.8); Mean Corpuscular HGB Conc 31.7 g/dL (30.0-36.0); Mean Platelet Volume 9.3 fL (7.4-10.4); Monocytes # 0.9 10^3/uL (0.2-0.9); Monocytes % 8.6 %; Neutrophils # 6.71 10^3/uL (1.8-7.7); Neutrophils % 64.9 %; Nucleated Red Blood Cells % 0 %; Platelet Count 377 10^3/cmm (130-400); Red Blood Count 3.77 10^6/uL (4.1-5.3); Red Cell Distribution Width 14.7 % (12.1-15.1); White Blood Count 10.3 10^3/uL (4.0-10.0)
[2020-03-06] MEDS: ondansetron 2 mg/ML SDV 2 mL 4 MG IVP (19:22)
[2020-03-06 19:52] LABS: Alanine Aminotransferase 7 U/L (0-33); Albumin Level 3.5 g/dL (3.5-5.2); Alkaline Phosphatase 96 IU/L (35-105); Anion Gap 11.3 (5-19); Aspartate Amino Transferase 8 U/L (0-32); Blood Urea Nitrogen 7 mg/dL (8-23); C Reactive Protein 0.9 mg/L (0.0-4.9); Calcium 8.5 mg/dL (8.5-10.5); Carbon Dioxide 26 mmol/L (22-29); Chloride 100 mmol/L (98-107); Globulin 2.6 g/dL (1.3-4.6); Glomerular Filtration Rate 83.7 mL/min (90-130); Glucose 54 mg/dL (65-115); Osmolality Calculated 274 mOsm/kg (285-295); Potassium 3.3 mmol/L (3.5-5.1); Sodium 134 mmol/L (136-145); Total Bilirubin 0.2 mg/dL (0.15-1.2); Total Protein 6.1 g/dL (6.6-8.7)
[2020-03-06 20:49] LABS: Erythrocyte Sedimentation Rate 21 mm/hr (0-15)
[2020-03-06] MEDS: potassium chloride ER 20 mEq Tablet PO (21:22)
== END 2020-03-06 21:23 | disposition home or self-care (01) ==
PROVIDERS: Emergency Provider Nurse Practitioner Family; PCP Nurse Practitioner
DX: G43.011 Migraine without aura, intractable, with status migrainosus (principal); Z79.82 Long term (current) use of aspirin; Z79.4 Long term (current) use of insulin; I13.0 Hypertensive heart and chronic kidney disease with heart failure and stage 1 through stage 4 chronic kidney disease, or unspecified chronic kidney disease; E11.22 Type 2 diabetes mellitus with diabetic chronic kidney disease; N18.2 Chronic kidney disease, stage 2 (mild); I50.32 Chronic diastolic (congestive) heart failure; E78.5 Hyperlipidemia, unspecified; F17.210 Nicotine dependence, cigarettes, uncomplicated
CPT/HCPCS: 12345; 70450; 72125; 80053; 85025; 85651; 86140; 96374; 96375; 99283; J0131; J2405

== ENCOUNTER → 2020-03-14 14:03 | Outpatient (BNVA) | payer OTHER, MEDICARE, SELFPAY | PROVIDERS: PCP Nurse Practitioner; Referring Provider Family Medicine; Visit Provider Internal Medicine | DX: E27.40 Unspecified adrenocortical insufficiency (principal); E87.1 Hypo-osmolality and hyponatremia | CPT/HCPCS: 99203 ==

== ENCOUNTER 2020-03-15 18:06 | Emergency (ER) | payer OTHER, MEDICARE, SELFPAY ==
--- NOTE | 2020-03-15 18:18 | PC.NURSE ---
EKG done at 1818 and shown to ER doctor. Patient blood glucose is 74, patient nurse and doctor aware.
--- NOTE | 2020-03-15 18:19 | XRR_ITS ---
PROCEDURE INFORMATION: Exam: XR Chest, 1 View Exam date and time: 03/15/2020 6:36 PM Age: 65 years old Clinical indication: Injury or trauma; Fall; Blunt trauma (contusions or hematomas); Injury date: 03/15/20; Additional info: Dyspnea, fall x 2 times today. Lethargic TECHNIQUE: Imaging protocol: XR of the chest Views: 1 view. Total images: 1 COMPARISON: CR XR chest 1V portable [id number] 02/22/2020 7:19 PM FINDINGS: Lungs: Evidence of antecedent granulomatous disease. No visible active interstitial or alveolar airspace disease. Pleural space: Unremarkable. No pleural effusion. No pneumothorax. Heart/Mediastinum: Cardiac structures and configuration with arteriosclerosis. Mild cardiomegaly. Bones/joints: Mild scoliotic curvature of the spine with degenerative disease. Other findings: Heavy body habitus. Epidural TENS unit. XR/XR chest 1V portable [id number] IMPRESSION: Nonacute.
--- NOTE | 2020-03-15 18:19 | CTR_ITS ---
PROCEDURE INFORMATION: Exam: CT Head Without Contrast Exam date and time: 03/15/2020 6:29 PM Age: 65 years old Clinical indication: Injury or trauma; Blunt trauma (contusions or hematomas); Consciousness not specified; Patient HX: 2x falls today - on plavix; Additional info: Fall TECHNIQUE: Imaging protocol: Computed tomography of the head without contrast. Total images: 189 Radiation optimization: All CT scans at this facility use at least one of these dose optimization techniques: automated exposure control; mA and/or kV adjustment per patient size (includes targeted exams where dose is matched to clinical indication); or iterative reconstruction. COMPARISON: CT head wo con* [id number] 03/06/2020 6:08 PM RADIATION DOSE METRICS: Total DLP (mGy-cm): 803.76 FINDINGS: Brain: No evidence of active or acute intracranial pathologic process, hemorrhage, or trauma. No visible cerebral edema. No mass effect. No midline shift. Mild small vessel ischemic disease with senile periventricular leukomalacia. Cerebral and cerebral atrophy with ventricular dilatation greater than that anticipated for patient's chronological age. Cerebral ventricles: No ventriculomegaly. Bones/joints: Unremarkable. No acute fracture. Paranasal sinuses: Chronic right frontal sinusitis. Mastoid air cells: Visualized mastoid air cells are well aerated. Soft tissues: Unremarkable. Other findings: Motion artifact. CT/CT head wo con* [id number] IMPRESSION: No evidence of active or acute intracranial pathologic process, hemorrhage, or trauma. Radiation Dose CTDIVOL = (mGy): DLP = 803.76 (mGy-cm)
[2020-03-15 18:23] VITALS: BP 186/89; PULSE 77; RESP 24; O2SAT 95; BMI 28.0
--- NOTE | 2020-03-15 18:27 | ECG_ITS ---
[facility] Test Date: 2020-03-15 Pat Name: Ingris Mendosa Department: Room: Gender: Female Grip: : 1955 Requested By: Ramón Jacobson Order Number: [id number] Delgado MD: Cecilio Julian M.D. Measurements Intervals [place] Rate: 80 P: 73 CO: 129 QRS: 64 QRSD: 86 T: 71 QT: 386 QTc: 446 Interpretive Statements SINUS RHYTHM LOW QRS VOLTAGE IN PRECORDIAL LEADS [QRS DEFLECTION < 1.0 mV IN CHEST LEADS] Compared to ECG 02/24/2020 05:30:02 Low QRS voltage now present Electronically Signed On 03-16-2020 17:53:44 COMPUTER ANALYST by Cecilio Julian M.D. [id number]
--- NOTE | 2020-03-15 18:28 | CTR_ITS ---
PROCEDURE INFORMATION: Exam: CT Cervical Spine Without Contrast Exam date and time: 03/15/2020 6:29 PM Age: 65 years old Clinical indication: Injury or trauma; Blunt trauma; Patient HX: 2x falls today; Additional info: Fall TECHNIQUE: Imaging protocol: Computed tomography images of the cervical spine without contrast. Total images: 246 Radiation optimization: All CT scans at this facility use at least one of these dose optimization techniques: automated exposure control; mA and/or kV adjustment per patient size (includes targeted exams where dose is matched to clinical indication); or iterative reconstruction. COMPARISON: CT cervical spin wo con* [id number] 03/06/2020 6:10 PM RADIATION DOSE METRICS: Total DLP (mGy-cm): 526.01 FINDINGS: Bones/joints: No acute fracture. Osteopenia/osteoporosis. Degenerative disease with spondylosis deformans most advanced C5, C6, and C7. Facet arthrosis. Mild scoliotic curvature. Degenerative disease of the joints of [place]. No traumatic spondylolysis or spondylolisthesis. Discs/Spinal canal/Neural foramina: Degenerative disc disease most advanced C5/C6 and C6/C7. Less significant degenerative disc disease C3/C4. No significant disc protrusion. No severe spinal canal stenosis. Bilateral neural foraminal stenosis C5/C6 Lungs: Lung apices are normal. Soft tissues: Unremarkable. CT/CT cervical spin wo con* [id number] IMPRESSION: No acute findings. Radiation Dose CTDIVOL = (mGy): DLP = 526.01 (mGy-cm)
[2020-03-15 19:00] LABS: ABG PCO2 36.9 mmHg (35-45); ABG PH Result 7.49 (7.35-7.45); Arterial Blood Gas Hematocrit 32.6 % (37-47); Base Excess ABG 4.7 mmol/L (-2.0-2.0); Blood Gas Allen Test Pos; Blood Gas Sample Type Arterial; Carboxyhemoglobin 6.2 %THgb (0.4-20.1); HCO3 ABG 28.2 mmol/L (22-26); Ionized Calcium Level - ABG 1.2 mmol/L (1.1-1.4); Methemoglobin 0.7 % (0.4-1.5); Oxygen Saturation ABG 97.7; PO2 ABG 80.8 mmHg (80.0-100.0); Potassium Level - ABG 3.4 mmol/L (3.5-5.0); Total Hemoglobin 10.6 g/dL (12-16)
[2020-03-15 19:01] LABS: Blood Gas Operator Identificat ED; Blood Gas Sample Site Radial, left; Oxygen Device ROOM AIR
--- NOTE | 2020-03-15 19:28 | ED_ITS ---
HPI - Altered Mental Status General: Chief Complaint: Altered Mental Status Stated Complaint: unresponsive Time Seen by Provider: 03/15/20 18:19 History of Present Illness: HPI narrative: The patient is a 65-year-old female with extensive past medical history last year she developed dysphagia and was unable to eat and had to have a G-tube placed and supplement what little she is able to eat with Glucerna. Elestat because of this she has developed severe el ectrolyte abnormalities and adrenal insufficiency seen in the notes. She has recently been started on fludrocortisone and sodium tablets and her sodium has normalized. She has frequent visits with headaches and altered mental status. Today her says she started to have a headache and felt nauseous earlier in the day and she fell twice on the ground hitting her head. Her mental status started to decline and she arrived to the ER slumped over in a wheelchair. She has decreased responsiveness but is able to answer some basic questions that she has a headache and is nauseous. She does have inattention and is unable to concentrate for long periods of time MD complaint: altered mental status, confusion and decreased responsiveness Timing confirmed by: spouse Severity: severe Review of Systems General: Reports: ROS unobtainable due to mental status PFSH ED PFSH: Medical History Anemia C. 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, recurrent severe without psychotic features Morbid obesity Post-traumatic stress disorder, chronic Surgical History H/O esophagogastroduodenoscopy H/O: hysterectomy History of bunionectomy bilateral Hx of cholecystectomy Status post colonoscopy Family History Mother Hypertension Diabetes Father Hypertension Asthma Other CAD (coronary artery disease) Cancer Denies family history of Anesthesia complication Bleeding disorder Social History Smoking and tobacco status: current every day smoker cigars Cigar details: 1 PPD Smoking risk assessment/counseling performed?: No Alcohol intake: former Former alcohol use details: Reportedly has not had any alcohol since June Household members: spouse Housing: Manufactured/Mobile home Marital status: Current occupational status: retired History of recent travel: No Physical Exam Narrative: EXAM NARRATIVE: She is generally weak and has decreased responsiveness. She answers some questions appropriately and other she does not answer. She has severe inattention and ability to concentrate. After left in the room for a while she is able to calm down and is resting comfortably in the bed. Const: COMMON NORMALS: alert EXAM LIMITATIONS: altered mental status GENERAL APPEARANCE: in distress and anxious NUTRITIONAL APPEARANCE: obese ORIENTATION/CONSCIOUSNESS: Yes oriented to person, Yes oriented to place and Yes confused HENMT: COMMON NORMALS: normocephalic, external ears normal and Normal external nose present HEAD & SCALP: normocephalic NOSE: Normal external nose present EXTERNAL EAR: Yes external ears normal MOUTH: Normal oral and palatal mucosa present THROAT: posterior oropharynx normal Eye: COMMON NORMALS: Equal, round and reactive pupils present and EOMs intact bilaterally GENERAL EYE: appearance normal, both eyes and all related structures PUPIL: Yes Equal, round and reactive pupils present Neck/C-Spine: COMMON NORMALS: full ROM, no lymphadenopathy, no meningeal signs and no JVD GENERAL: Yes normal visual inspection Lymph: LYMPHATIC: no lymphadenopathy noted Chest: COMMONS NORMALS: normal inspection of the chest and normal palpation of entire chest wall Resp: COMMON NORMALS: normal respiratory effort, No retractions, No use of accessory muscles, clear to auscultation bilaterally and percussion normal EFFORT & INSPECTION: Yes able to speak in complete sentences AUSCULTATION: clear to auscultation bilaterally PERCUSSION: percussion normal Cardio: COMMON NORMALS: no JVD, regular rate, regular rhythm, S1 normal heart sound present, S2 normal heart sound present and Peripheral pulses 2+ throughout RATE: regular rate RHYTHM: regular rhythm HEART SOUNDS: S1 normal heart sound present and S2 normal heart sound present PERIPHERAL PULSES: Peripheral pulses 2+ throughout GI: COMMON NORMALS: Normal to inspection, nondistended, normoactive bowel sounds present, Soft to palpation, non-tender and no masses INSPECTION: Yes normal to inspection PALPATION: Yes Soft to palpation : COMMON NORMALS: Yes no CVA tenderness BLADDER/KIDNEY EXAM: Yes no CVA tenderness Back/Pelvis: COMMON NORMALS: no CVA tenderness, thoracic and lumbar spine normal to inspection, no thoracic nor lumbar tenderness and thoraco-lumbar ROM normal Extremity: COMMON NORMALS: normal to inspection, full ROM, capillary refill normal, no joint enlargement and no pedal edema GENERAL: Yes normal exam except as noted Neuro: COMMON NORMALS: patient oriented x3 (Oriented to person place and only. Confused. Inattentive) SENSORIUM/ORIENTATION: Yes alert, Yes oriented to person and Yes oriented to place MENINGEAL SIGNS: Yes no meningeal signs GAIT: Yes Unable to assess gait OTHER: She has severe general weakness. No focal weakness noted she does move all extremities. Power is sometimes 1-3 out of 5 in all extremities depending on how much she feels like moving them. She has some odd behaviors and there is a clear psychiatric component to some of this for example when trying to open her eyes with my hands she fights me and averts eye contact and squeezes her eyes shut. Psych: APPEARANCE: Yes unkempt ATTITUDE: Yes uncooperative and Yes agitated ACTIVITY/MOTOR BEHAVIOR: No appropriate eye contact and Yes psychomotor agitation SPEECH: Yes minimal MOOD & AFFECT: Yes depressed mood and Yes anxious THOUGHT PROCESS: confused and Illogical thought process present ATTENTION/CONCENTRATION: Yes attention grossly impaired and Yes concentration grossly impaired Skin: COMMON NORMALS: no rashes or lesions noted GENERAL SKIN EXAM: no rashes or lesions noted Course Vital Signs: Vital signs: Vital Signs Pulse Rate 77 03/15/20 18:23 Respiratory Rate 24 H 03/15/20 18:23 Blood Pressure 186/89 03/15/20 18:23 Pulse Oximetry 95 03/15/20 18:23 MDM - Altered Mental Status MDM Narrative: Medical decision making narrative: The patient came in altered and confused. She has been given Tylenol Zofran Benadryl and magnesium. Her sodium is 132 which is above her baseline and a continued improvement from recently when it was in the 120s. Her condition has improved once the medicines kicked in and her headache has now resolved. She and feel like she is back to baseline. She is interacting with staff normally and they feel comfortable going home to sleep tonight. Recommended follow-up with primary care doctor in a couple days and return to the ER with worsening symptoms Lab Data: Labs: Lab Results 03/15/20 03/15/20 03/15/20 Range/Units 18:50 21:30 21:46 WBC 9.7 (4.0-10.0) 10^3/ uL RBC 4.13 (4.1-5.3) 10^6/u L Hgb 10.6 L (11.5-15.3) g/dL Hct 32.6 L (37.0-47.0) % MCV 78.9 L (81-99) fL MCH 25.7 L (28.0-34.0) pg MCHC 32.5 (30.0-36.0) g/dL RDW 14.8 (12.1-15.1) % Plt Count 483 H (130-400) 10^3/c mm MPV 9.8 (7.4-10.4) fL Neut % (Auto) 53.6 % Lymph % (Auto) 33.2 % Sevier % (Auto) 11.6 % Eos % (Auto) 1.0 % Baso % (Auto) 0.4 % Neut # (Auto) 5.21 (1.8-7.7) 10^3/u L Lymph # (Auto) 3.2 (0.8-4.8) 10^3/u L Sevier # (Auto) 1.1 H (0.2-0.9) 10^3/u L Eos # (Auto) 0.1 (0.0-0.8) 10^3/u L Baso # (Auto) 0.0 (0.0-0.1) 10^3/u L Nucleated RBC % (a uto) 0 % Nucleated RBCs # 0.0 /100WBC Specimen Type Arterial Sample Site Radial, left ABG pH 7.49 H (7.35-7.45) ABG pCO2 36.9 (35-45) mmHg ABG pO2 80.8 (80.0-100.0) mmH g ABG HCO3 28.2 H (22-26) mmol/L ABG O2 Saturation 97.7 ABG Base Excess 4.7 H (-2.0-2.0) mmol/ L Jose L Test Pos A-a O2 Gradient 3.0 L (5-10) mmHg Hematocrit 32.6 L (37-47) % Hgb O2 Saturation 91.0 L (95-100) % Carboxyhemoglobin 6.2 (0.4-20.1) %THgb Methemoglobin 0.7 (0.4-1.5) % Total Hemoglobin 10.6 L (12-16) g/dL Sodium 133.0 (131-143) mmol/L Potassium 3.4 L (3.5-5.0) mmol/L Glucose 45.0 L (70-115) mg/dL Ionized Calcium 1.2 (1.1-1.4) mmol/L O2 Delivery Device Room air FiO2 21.0 % Flash Designer ID Ed Chloride (98-107) mmol/L Carbon Dioxide (22-29) mmol/L Anion Gap (5-19) BUN (8-23) mg/dL Creatinine (0.5-0.9) mg/dL GFR Calculation (90-130) mL/min Calculated Osmolal ity (285-295) mOsm/k g Lactate (0.5-2.2) mmol/L Calcium (8.5-10.5) mg/dL Phosphorus (2.5-4.5) mg/dL Magnesium (1.7-2.3) mg/dL Total Bilirubin (0.15-1.2) mg/dL AST (0-32) U/L ALT (0-33) U/L Alkaline Phosphata se (35-105) IU/L Creatine Kinase (26-192) U/L Troponin T Baselin e (0-10) ng/L NT-Pro-B Natriuret Pep (0-125) pg/mL Total Protein (6.6-8.7) g/dL Albumin (3.5-5.2) g/dL Globulin (1.3-4.6) g/dL Urine Color Straw (Yellow) Urine Appearance Clear (CLEAR) Urine pH 6 (5-7) Ur Specific Gravit y 1.010 (1.005-1.030) Urine Protein Neg (Negative) Urine Glucose (UA) Norm (Normal) Urine Ketones Negative (Negative) Urine Blood Neg (Negative) Urine Nitrate Negative (Negative) Urine Bilirubin Neg (Negative) Urine Urobilinogen Norm (Negative) mg/dL Ur Leukocyte Kiara ase Negative (Negative) 03/15/20 03/15/20 03/15/20 Range/Units 21:46 21:46 21:46 WBC (4.0-10.0) 10^3/ uL RBC (4.1-5.3) 10^6/u L Hgb (11.5-15.3) g/dL Hct (37.0-47.0) % MCV (81-99) fL MCH (28.0-34.0) pg MCHC (30.0-36.0) g/dL RDW (12.1-15.1) % Plt Count (130-400) 10^3/c mm MPV (7.4-10.4) fL Neut % (Auto) % Lymph % (Auto) % Sevier % (Auto) % Eos % (Auto) % Baso % (Auto) % Neut # (Auto) (1.8-7.7) 10^3/u L Lymph # (Auto) (0.8-4.8) 10^3/u L Sevier # (Auto) (0.2-0.9) 10^3/u L Eos # (Auto) (0.0-0.8) 10^3/u L Baso # (Auto) (0.0-0.1) 10^3/u L Nucleated RBC % (a uto) % Nucleated RBCs # /100WBC Specimen Type Sample Site ABG pH (7.35-7.45) ABG pCO2 (35-45) mmHg ABG pO2 (80.0-100.0) mmH g ABG HCO3 (22-26) mmol/L ABG O2 Saturation ABG Base Excess (-2.0-2.0) mmol/ L Jose L Test A-a O2 Gradient (5-10) mmHg Hematocrit (37-47) % Hgb O2 Saturation (95-100) % Carboxyhemoglobin (0.4-20.1) %THgb Methemoglobin (0.4-1.5) % Total Hemoglobin (12-16) g/dL Sodium 132 L (131-143) mmol/L Potassium 3.6 (3.5-5.0) mmol/L Glucose 52 L (70-115) mg/dL Ionized Calcium (1.1-1.4) mmol/L O2 Delivery Device FiO2 % Flash Designer ID Chloride 96 L (98-107) mmol/L Carbon Dioxide 27 (22-29) mmol/L Anion Gap 12.6 (5-19) BUN 10 (8-23) mg/dL Creatinine 0.6 (0.5-0.9) mg/dL GFR Calculation 100.0 (90-130) mL/min Calculated Osmolal ity 270 L (285-295) mOsm/k g Lactate 1.7 (0.5-2.2) mmol/L Calcium 9.0 (8.5-10.5) mg/dL Phosphorus 3.6 (2.5-4.5) mg/dL Magnesium 1.5 L (1.7-2.3) mg/dL Total Bilirubin 0.2 (0.15-1.2) mg/dL AST 9 (0-32) U/L ALT 7 (0-33) U/L Alkaline Phosphata se 92 (35-105) IU/L Creatine Kinase 26 (26-192) U/L Troponin T Baselin e 9 (0-10) ng/L NT-Pro-B Natriuret Pep 937 H (0-125) pg/mL Total Protein 6.5 L (6.6-8.7) g/dL Albumin 3.6 (3.5-5.2) g/dL Globulin 2.9 (1.3-4.6) g/dL Urine Color (Yellow) Urine Appearance (CLEAR) Urine pH (5-7) Ur Specific Gravit y (1.005-1.030) Urine Protein (Negative) Urine Glucose (UA) (Normal) Urine Ketones (Negative) Urine Blood (Negative) Urine Nitrate (Negative) Urine Bilirubin (Negative) Urine Urobilinogen (Negative) mg/dL Ur Leukocyte Kiara ase (Negative) Discharge Plan Discharge Patient Disposition: Home Clinical Impression: Weakness, Chronic hyponatremia, Hypomagnesemia Headache Qualifiers: Headache type: unspecified Headache chronicity pattern: chronic headache Intractability: not intractable Qualified Code(s): R51.9 - Headache, unspecified Condition: Stable Prescriptions: No Action atorvastatin 80 mg Tablet 80 mg PO BEDTIME@2200 RF: 0 levothyroxine 75 mcg Tablet 75 mcg PO DAILY@0800 RF: 0 pantoprazole 40 mg Tablet,Delayed Release (Dr/Ec) 40 mg PO DAILY@0800 RF: 0 metformin 1,000 mg Tablet 1,000 mg PO BID@0800,2200 RF: 0 glimepiride 4 mg tablet 4 mg PO DAILY@0800 RF: 0 acetaminophen [Tylenol] 325 mg Tablet 650 mg PO Q4H PRN (Reason: Pain) RF: 0 Lantus U-100 Insulin 100 unit/mL Solution 13 unit SUBCUT DAILY@0800 RF: 0 insulin aspart U-100 [Novolog Flexpen U-100 Insulin] 100 unit/mL (3 mL) Insulin Pen See Rx Instructions .ROUTE .COMPLEX RF: 0 mirtazapine [Remeron] 15 mg tablet 15 mg PO BEDTIME@2200 RF: 0 insulin aspart U-100 [Novolog Flexpen U-100 Insulin] 100 unit/mL (3 mL) insulin pen See Rx Instructions .ROUTE .COMPLEX 30 Days Qty: 0.3 RF: 0 aspirin 325 mg Tablet 325 mg PO DAILY PRN (Reason: Pain) RF: 0 Aspir-81 81 mg Tablet,Delayed Release (Dr/Ec) 81 mg PO DAILY@0800 RF: 0 Vicks DayQuil-NyQuil Cold-Flu 6.25-5-10-325 mg/15 mL Liquid, Sequential 15 ml PO Q6H PRN (Reason: pain/cold symptoms) RF: 0 sodium chloride 1 gram tablet 1 g PO BID@0800,2200 RF: 0 hydralazine 25 mg tablet 25 mg PO TID@08,, RF: 0 clopidogrel 75 mg tablet 75 mg PO DAILY@0800 RF: 0 metoprolol tartrate 50 mg tablet 50 mg PO BID@0800,2200 RF: 0 fludrocortisone 0.1 mg tablet 0.1 mg PO DAILY@0800 RF: 0 prednisolone 5 mg tablet 5 mg PO DAILY@0800 RF: 0 Discharge Orders: Discharge ED (Routine); Ordered 03/15/20 Ordered By: Ramón Jacobson Referrals: Thu Flores FNP [Primary Care Provider] - Discharge Diet: Usual diet Discharge Activity: Resume usual activity Patient Instructions: Hyponatremia (ED), Acute Headache (ED), Hypomagnesemia (ED) Activity Restrictions/Additional Instructions: Your headache has been feeling better with the administration of Tylenol. Please return to the ER with worsening symptoms otherwise follow-up with your primary care physician in a few days to monitor improvement of your symptoms. Also get your sodium and magnesium levels checked at that time to make sure they are improving. Coding Level of Care Code ED Certified Income Tax Preparer for Padminig Fwd Exam Comprehensive
[2020-03-15] MEDS: acetaminophen 650 mg/20.3 mL UDC PEG-TUBE (20:15)
[2020-03-15] MEDS: ondansetron 2 mg/ML SDV 2 mL 4 MG IVP (20:20)
[2020-03-15] MEDS: diphenhydrAMINE 50 mg/mL SDV 1mL 25 MG IVP (20:25)
--- NOTE | 2020-03-15 20:27 | ECG_ITS ---
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 Measurements Intervals [place] Rate: 75 P: 67 MS: 129 QRS: 40 QRSD: 84 T: 76 QT: 419 QTc: 470 Interpretive Statements SINUS RHYTHM Compared to ECG 03/15/2020 18:16:01 No significant changes Electronically Signed On 03-18-2020 10:03:03 THREAD GRINDER TOOL by Cindy Strong M.D. [id number]
[2020-03-15] MEDS: cefTRIAXone 1,000 MG in sodium chloride 0.9% (plus) 50 ML 100 MG IV (20:30)
--- NOTE | 2020-03-15 20:34 | PC.NURSE ---
EKG done at 2034 and shown to ER doctor
[2020-03-15 21:57] LABS: Add Urine Microscopic? NO
[2020-03-15] MEDS: ketorolac 30 mg/mL INJ 15 MG IVP (22:05)
[2020-03-15 22:07] LABS: Bilirubin Urine Neg (Negative); Blood Urine Neg (Negative); Glucose Urine UA Norm (Normal); Ketones Urine Negative (Negative); Leukocyte Esterase Urine Negative (Negative); Nitrate Urine Negative (Negative); Protein Urine Neg (Negative); Urine Appearance Clear (CLEAR); Urine Color Straw (Yellow); Urobilinogen Urine Norm (Negative); pH Urine 6 (5-7)
[2020-03-15 22:27] LABS: Basophils % 0.4 %; Eosinophils # 0.1 10^3/uL (0.0-0.8); Hematocrit 32.6 % (37.0-47.0); Hemoglobin 10.6 g/dL (11.5-15.3); Lactate (Lactic Acid level) 1.7 mmol/L (0.5-2.2); Lymphocytes # 3.2 10^3/uL (0.8-4.8); Lymphocytes % 33.2 %; Mean Corpuscular HGB Conc 32.5 g/dL (30.0-36.0); Mean Corpuscular Hemoglobin 25.7 pg (28.0-34.0); Mean Corpuscular Volume 78.9 fL (81-99); Mean Platelet Volume 9.8 fL (7.4-10.4); Monocytes # 1.1 10^3/uL (0.2-0.9); Monocytes % 11.6 %; Neutrophils # 5.21 10^3/uL (1.8-7.7); Neutrophils % 53.6 %; Nucleated Red Blood Cells % 0 %; Platelet Count 483 10^3/cmm (130-400); Red Blood Count 4.13 10^6/uL (4.1-5.3); Red Cell Distribution Width 14.8 % (12.1-15.1); White Blood Count 9.7 10^3/uL (4.0-10.0)
[2020-03-15 22:28] LABS: Troponin(5th) Baseline 9 ng/L (0-10)
[2020-03-15 22:36] LABS: Alanine Aminotransferase 7 U/L (0-33); Albumin Level 3.6 g/dL (3.5-5.2); Alkaline Phosphatase 92 IU/L (35-105); Anion Gap 12.6 (5-19); Aspartate Amino Transferase 9 U/L (0-32); Blood Urea Nitrogen 10 mg/dL (8-23); Carbon Dioxide 27 mmol/L (22-29); Chloride 96 mmol/L (98-107); Creatine Phosphokinase 26 U/L (26-192); Globulin 2.9 g/dL (1.3-4.6); Glucose 52 mg/dL (65-115); Magnesium 1.5 mg/dL (1.7-2.3); NT Pro B Type Natriuretic Pept 937 pg/mL (0-125); Osmolality Calculated 270 mOsm/kg (285-295); Phosphorus 3.6 mg/dL (2.5-4.5); Potassium 3.6 mmol/L (3.5-5.1); Sodium 132 mmol/L (136-145); Total Bilirubin 0.2 mg/dL (0.15-1.2); Total Protein 6.5 g/dL (6.6-8.7)
[2020-03-15 22:45] VITALS: BP 184/105; PULSE 84; RESP 20; O2SAT 90
[2020-03-15 23:59] VITALS: BP 184/105; RESP 20
--- NOTE | 2020-03-15 23:59 | PC.NURSE ---
pt refusing to keep b/p monitor cuff
== END 2020-03-16 00:03 | disposition home or self-care (01) ==
PROVIDERS: Emergency Provider Family Medicine; PCP Nurse Practitioner
DX: R51.9 Headache, unspecified (principal); E83.42 Hypomagnesemia; E87.1 Hypo-osmolality and hyponatremia; R53.1 Weakness; Z79.02 Long term (current) use of antithrombotics/antiplatelets; Z79.82 Long term (current) use of aspirin; Z79.4 Long term (current) use of insulin; I13.0 Hypertensive heart and chronic kidney disease with heart failure and stage 1 through stage 4 chronic kidney disease, or unspecified chronic kidney disease; E11.22 Type 2 diabetes mellitus with diabetic chronic kidney disease; N18.2 Chronic kidney disease, stage 2 (mild); I50.32 Chronic diastolic (congestive) heart failure; E78.5 Hyperlipidemia, unspecified; F17.210 Nicotine dependence, cigarettes, uncomplicated
CPT/HCPCS: 12345; 36415; 36600; 70450; 71045; 72125; 80051; 80053; 81003; 82330; 82550; 82805; 83605; 83735; 83880; 84100; 84484; 85025; 87040; 87205; 93005; 96365; 96375; 99282; 99284; J0696; J1200; J1885; J2405; J3475

== ENCOUNTER → 2020-03-20 07:42 | Outpatient (BNVA) | payer OTHER, MEDICARE, SELFPAY | PROVIDERS: PCP Nurse Practitioner; Visit Provider Nurse Practitioner | DX: F43.12 Post-traumatic stress disorder, chronic (principal); F33.2 Major depressive disorder, recurrent severe without psychotic features | CPT/HCPCS: 99213 ==

== ENCOUNTER 2020-03-27 08:20 | Outpatient (CLI) | payer OTHER, MEDICARE, SELFPAY ==
--- NOTE | 2020-03-27 08:34 | FL_ITS ---
WS: [id number] ESOPHAGRAM TECHNIQUE: Double contrast examination was performed with thin and thick barium. Upright and MIGUEL imag es were obtained. CLINICAL INFORMATION: DYSPHAGIA COMPARISON: None. FINDINGS: Swallowing: Small to moderate amount of penetration and aspiration with thin and thick liquids. This elicited a cough reflex. Esophagus: Mild esophageal dysmotility. No evidence of high-grade stricture or obstructing mass. Gastroesophageal reflux: None. Fluoroscopy time: 2.3 minutes. FL/FL barium swallow [id number] IMPRESSION: Small to moderate amount of active aspiration with thin and thick liquids. This elicited a cough reflex. Recommend speech therapy consultation for recommendat ions.
== END 2020-03-27 08:21 | disposition home or self-care (01) ==
LOC: RADWPI 08:25
PROVIDERS: PCP Nurse Practitioner; Visit Provider Specialist
DX: R13.19 Other dysphagia (principal)
CPT/HCPCS: 74220

== ENCOUNTER → 2020-03-30 07:44 | Outpatient (BNVA) | payer OTHER, MEDICARE, SELFPAY | PROVIDERS: PCP Nurse Practitioner; Visit Provider Nurse Practitioner | DX: F43.12 Post-traumatic stress disorder, chronic (principal); F33.2 Major depressive disorder, recurrent severe without psychotic features | CPT/HCPCS: 99214 ==

== ENCOUNTER 2020-03-30 08:35 | Outpatient (CLI) | payer OTHER, MEDICARE, SELFPAY ==
--- NOTE | 2020-03-30 08:39 | CT_ITS ---
WS: [id number] CT NECK TECHNIQUE: Contrast-enhanced CT of the neck with coronal and sagittal reformatted images. CLINICAL INFORMATION: DYSPHAGIA COMPARISON: March 02, 2019 DLP: 2890.[address] scans at [facility] use at least one of these dose optimization techniques: automat ed exposure control; mA and/or kV adjustment per patient size (includes targeted exams where dose is matched to clinical indication); or iterative reconstruction. FINDINGS: Parotid glands are normal. Normal submandibular glands. No cervical lymphadenopathy. Normal posterior nasopharynx. Normal parapharyngeal fat. No evidence of supraglottic or glottic mass. Normal piriform sinuses. Normal subglottic airway. Aortic calcification. Paranasal sinuses and mastoid air cells are well aera brooklynn. Retention cysts in the sphenoid sinuses. Lung apices are well aerated. Visualized intracranial c ontents unremarkable. Mild spondylitic changes. Slight anterolisthesis C4 on C5. A few stable tiny no dules in the lung apices. CT/CT neck w con* [id number] IMPRESSION: 1. No evidence of supraglottic or glottic mass. 2. Normal salivary glands. 3. No cervical lymphadenopathy 4. Slight anterolisthesis C4 on C5 has slightly progressed since 2019. 5. A few tiny noncalcified pulmonary nodules in the lung apices are unchanged.
[2020-03-30] MEDS: iohexol 300 mg/mL 100 mL Btl IV (10:24)
== END 2020-03-30 08:36 | disposition home or self-care (01) ==
LOC: RADWPI 08:37
PROVIDERS: PCP Nurse Practitioner; Visit Provider Specialist
DX: R13.10 Dysphagia, unspecified (principal); R91.8 Other nonspecific abnormal finding of lung field
CPT/HCPCS: 70491; Q9967

== ENCOUNTER → 2020-05-01 07:46 | Outpatient (BNVA) | payer OTHER, MEDICARE, SELFPAY | PROVIDERS: PCP Nurse Practitioner; Visit Provider Nurse Practitioner | DX: F33.2 Major depressive disorder, recurrent severe without psychotic features (principal); F43.12 Post-traumatic stress disorder, chronic | CPT/HCPCS: 99214 ==

== ENCOUNTER 2020-05-20 16:06 | Emergency (ER) | payer OTHER, MEDICARE, SELFPAY ==
[2020-05-20 16:20] VITALS: BP 138/82; PULSE 97; RESP 18; TEMP 36.3; O2SAT 100; BMI 28.3
[2020-05-20 16:42] VITALS: BP 182/96; PULSE 97; RESP 18; O2SAT 96
--- NOTE | 2020-05-20 17:40 | W.ED.HA ---
HPI - Headache General: Chief Complaint: Headache Stated Complaint: Migraine/Inability to keep food down Time Seen by Provider: 05/20/20 17:18 Source: patient and family Mode of arrival: wheelchair Limitations: no limitations History of Present Illness: HPI Narrative: Patient is a 65-year-old female who presents to ED today along with her for evaluation of a headache. Patient tells me she has had a headache over the past 2 to 3 weeks but states it has turned into a migraine over the past 2 days. Patient tells me she has a history of migraine headaches and states her headache feels similar however she tells me she is experiencing dizziness which is uncharacteristic of her migraine headaches. She reports nausea. states patient has fallen twice today due to dizziness. She tells me she has fallen because her legs gave out. Patient has a history of hyponatremia. She states her labs were checked approximately 2 weeks ago and states her sodium was low but not too low . MD elicited complaint: migraine Onset (ago): day(s) Onset description: gradually Pain scale (0-10): 9 Exacerbating factors: light Relieving factors: nothing Context: occurred at rest Associated symptoms: Reports weakness and other (dizziness); Deny chest pain, confusion, fever(s), lightheadedness, malaise, nausea, pre-syncope, rash or syncope Treatments prior to arrival: none Review of Systems Const: Denies: fever(s), chills, body aches, change in appetite, change in weight, fatigue or malaise Eyes: Denies: change in vision, blurry vision, photophobia, floaters or seeing flashes ENMT: Denies: throat pain, odynophagia, nasal congestion or sinus pain Card: Denies: chest pain, palpitations, irregular heart rhythm, edema, swelling of feet/ankles, lightheadedness, syncope, pre-syncope or dyspnea on exertion Resp: Denies: dyspnea GI: Denies: abdominal pain, nausea, vomiting, diarrhea or change in stool character : Denies: flank pain, difficulty voiding, dysuria, urinary frequency, urinary urgency or urinary hesitancy Musc: Denies: neck pain, back pain, extremity pain, extremity swelling, joint pain or joint swelling Skin/Breast: Denies: rash Neuro: Reports: headache(s), weakness in extremities and dizziness; Denies: numbness in extremities, sensory changes, lack of coordination, frequent falls, vertigo, confusion, Slurred speech present, difficulty communicating thoughts or seizure-like activity PFSH ED PFSH: Medical History Anemia C. 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, recurrent severe without psychotic features Morbid obesity Post-traumatic stress disorder, chronic Surgical History H/O esophagogastroduodenoscopy H/O: hysterectomy History of bunionectomy bilateral Hx of cholecystectomy Status post colonoscopy Family History Mother Hypertension Diabetes Father Hypertension Asthma Other CAD (coronary artery disease) Cancer Denies family history of Anesthesia complication Bleeding disorder Social History Smoking and tobacco status: current every day smoker cigars Cigar details: 1 PPD Smoking risk assessment/counseling performed?: No Alcohol intake: former Former alcohol use details: Reportedly has not had any alcohol since June Household members: spouse Housing: Manufactured/Mobile home Marital status: Current occupational status: retired History of recent travel: No Physical Exam Const: COMMON NORMALS: no acute distress, patient oriented x3 and alert GENERAL APPEARANCE: cooperative and other (odorous ) NUTRITIONAL APPEARANCE: obese ORIENTATION/CONSCIOUSNESS: Yes awake, Yes oriented to person, Yes oriented to place and Yes oriented to time HENMT: COMMON NORMALS: normocephalic, atraumatic, hearing grossly normal bilaterally, EAC's normal and TM's normal bilaterally HEAD & SCALP: normal to inspection, normocephalic and atraumatic FACE & SINUS: normal facial exam and sinuses nontender EXTERNAL AUDITORY CANAL: EAC's normal TYMPANIC MEMBRANE: TM's normal bilaterally Eye: COMMON NORMALS: Equal, round and reactive pupils present, EOMs intact bilaterally and conjunctivae normal GENERAL EYE: appearance normal, both eyes and all related structures and normal light reflex VISUAL HUSTON: No peripheral vision loss ALIGNMENT: Yes alignment normal PERIORBITAL: periorbital findings normal EYELID: eyelids normal CONJUNCTIVA: Yes conjunctivae normal PUPIL: Yes Equal, round and reactive pupils present DIRECT OPHTHALMOSCOPY: Yes normal light reflex Neck/C-Spine: COMMON NORMALS: full ROM, no lymphadenopathy and no meningeal signs Resp: COMMON NORMALS: normal respiratory effort and clear to auscultation bilaterally AUSCULTATION: clear to auscultation bilaterally Cardio: COMMON NORMALS: regular rate and regular rhythm RATE: regular rate RHYTHM: regular rhythm GI: COMMON NORMALS: Normal to inspection, nondistended, normoactive bowel sounds present, Soft to palpation, non-tender, No hepatosplenomegaly present and no masses PALPATION: Yes Soft to palpation and Yes No hepatosplenomegaly present Extremity: COMMON NORMALS: normal to inspection, full ROM and no calf tenderness GENERAL: Yes normal exam except as noted Neuro: LUCAS COMA SCALE: document GCS findings [place] coma scale eye opening: Spontaneous [place] coma scale verbal response: Orientated [place] coma scale motor response: Obey commands Lucas coma scale total score: 15 COMMON NORMALS: patient oriented x3, CN's II-XII intact bilaterally, moves all extremities, no focal motor deficits and no sensory deficits noted SENSORIUM/ORIENTATION: Yes alert, Yes oriented to person, Yes oriented to place and Yes oriented to time MENINGEAL SIGNS: Yes no meningeal signs GAIT: Yes Unable to assess gait MOTOR EXAM: 5/5 motor strength present throughout Skin: COMMON NORMALS: no rashes or lesions noted GENERAL SKIN EXAM: no rashes or lesions noted Course Vital Signs: Vital signs: Vital Signs Temperature 97.4 F L 05/20/20 16:20 Pulse Rate 97 05/20/20 16:42 Respiratory Rate 18 05/20/20 16:42 Blood Pressure 182/96 05/20/20 16:42 Pulse Oximetry 96 05/20/20 16:42 MDM - Headache MDM Narrative: Medical decision making narrative: Patient sodium today is 123. She is symptomatic given her headache, nausea, dizziness, and weakness. Had spoken to patient and she had initially agreed to come into the hospital for further management however shortly later the nurse informed me that patient would like to leave as she wants to go outside and smoke. I went in to speak to the patient and she is adamant that she would like to go home at this point. I have spoken to her extensively about the risks of severe hyponatremia and her fall risk at home however again patient is becoming agitated wanting to leave. She will sign AMA. in the room stated he will take patient home. Lab Data: Labs: Lab Results 05/20/20 05/20/20 Range/Units 17:50 17:50 WBC 10.2 H (4.0-10.0) 10^3/ uL RBC 3.83 L (4.1-5.3) 10^6/u L Hgb 10.2 L (11.5-15.3) g/dL Hct 30.6 L (37.0-47.0) % MCV 79.9 L (81-99) fL MCH 26.6 L (28.0-34.0) pg MCHC 33.3 (30.0-36.0) g/dL RDW 20.0 H (12.1-15.1) % Plt Count 468 H (130-400) 10^3/c mm MPV 9.2 (7.4-10.4) fL Neut % (Auto) 79.9 % Lymph % (Auto) 14.1 % [place] % (Auto) 5.4 % Eos % (Auto) 0.1 % Baso % (Auto) 0.2 % Neut # (Auto) 8.17 H (1.8-7.7) 10^3/u L Lymph # (Auto) 1.4 (0.8-4.8) 10^3/u L [place] # (Auto) 0.6 (0.2-0.9) 10^3/u L Eos # (Auto) 0.0 (0.0-0.8) 10^3/u L Baso # (Auto) 0.0 (0.0-0.1) 10^3/u L Nucleated RBC % (a uto) 0 % Nucleated RBCs # 0.0 /100WBC Sodium 123 L (136-145) mmol/L Potassium 3.5 (3.5-5.1) mmol/L Chloride 87 L (98-107) mmol/L Carbon Dioxide 23 (22-29) mmol/L Anion Gap 16.5 (5-19) BUN 6 L (8-23) mg/dL Creatinine 0.7 (0.5-0.9) mg/dL GFR Calculation 83.7 L (90-130) mL/min Glucose 169 H (65-115) mg/dL Calculated Osmolal ity 258 L (285-295) mOsm/k g Calcium 7.9 L (8.5-10.5) mg/dL Total Bilirubin 0.2 (0.15-1.2) mg/dL AST 14 (0-32) U/L ALT 14 (0-33) U/L Alkaline Phosphata se 82 (35-105) IU/L Total Protein 5.9 L (6.6-8.7) g/dL Albumin 3.2 L (3.5-5.2) g/dL Globulin 2.7 (1.3-4.6) g/dL Discharge Plan Discharge Patient Disposition: Left Against Medical Advice Clinical Impression: Acute hyponatremia, Migraine, Complaints of leg weakness Condition: Stable Prescriptions: No Action atorvastatin 80 mg Tablet 80 mg PO BEDTIME@2200 RF: 0 levothyroxine 75 mcg Tablet 75 mcg PO DAILY@0800 RF: 0 pantoprazole 40 mg Tablet,Delayed Release (Dr/Ec) 40 mg PO DAILY@0800 RF: 0 mirtazapine 30 mg Tablet 30 mg PO DAILY RF: 0 venlafaxine 150 mg capsule,extended release 24hr 150 mg PO DAILY@0800 RF: 0 metformin 1,000 mg Tablet 1,000 mg PO BID@0800,0 RF: 0 glimepiride 4 mg tablet 4 mg PO DAILY@0800 RF: 0 acetaminophen [Tylenol] 325 mg Tablet 650 mg PO Q4H PRN (Reason: Pain) RF: 0 Lantus U-100 Insulin 100 unit/mL Solution 14 unit SUBCUT DAILY@0800 RF: 0 insulin aspart U-100 [Novolog Flexpen U-100 Insulin] 100 unit/mL (3 mL) Insulin Pen See Rx Instructions .ROUTE .COMPLEX RF: 0 aspirin [Aspir-81] 81 mg Tablet,Delayed Release (Dr/Ec) 81 mg PO DAILY@0800 RF: 0 Vicks DayQuil-NyQuil Cold-Flu 6.25-5-10-325 mg/15 mL Liquid, Sequential 15 ml PO Q6H PRN (Reason: pain/cold symptoms) RF: 0 sodium chloride 1 gram tablet 1 g PO BID@0800,2200 RF: 0 hydralazine 25 mg tablet 25 mg PO BID@0800,1999 RF: 0 clopidogrel 75 mg tablet 75 mg PO DAILY@0800 RF: 0 metoprolol tartrate 50 mg tablet 50 mg PO BID@0800,2200 RF: 0 fludrocortisone 0.1 mg tablet 0.1 mg PO DAILY@0800 RF: 0 prednisolone 5 mg tablet 5 mg PO DAILY@0800 RF: 0 Referrals: Thu Flores FNP [Primary Care Provider] - Coding Level of Care Code ED Special Officer for Chg Fwd Exam Comprehensive
[2020-05-20] MEDS: meclizine 25 mg tablet 50 MG PO (18:03)
[2020-05-20 18:12] LABS: Basophils % 0.2 %; Eosinophils % 0.1 %; Hematocrit 30.6 % (37.0-47.0); Hemoglobin 10.2 g/dL (11.5-15.3); Lymphocytes # 1.4 10^3/uL (0.8-4.8); Lymphocytes % 14.1 %; Mean Corpuscular HGB Conc 33.3 g/dL (30.0-36.0); Mean Corpuscular Hemoglobin 26.6 pg (28.0-34.0); Mean Corpuscular Volume 79.9 fL (81-99); Mean Platelet Volume 9.2 fL (7.4-10.4); Monocytes # 0.6 10^3/uL (0.2-0.9); Monocytes % 5.4 %; Neutrophils # 8.17 10^3/uL (1.8-7.7); Neutrophils % 79.9 %; Nucleated Red Blood Cells % 0 %; Platelet Count 468 10^3/cmm (130-400); Red Blood Count 3.83 10^6/uL (4.1-5.3); White Blood Count 10.2 10^3/uL (4.0-10.0)
[2020-05-20 18:35] LABS: Alanine Aminotransferase 14 U/L (0-33); Albumin Level 3.2 g/dL (3.5-5.2); Alkaline Phosphatase 82 IU/L (35-105); Anion Gap 16.5 (5-19); Aspartate Amino Transferase 14 U/L (0-32); Blood Urea Nitrogen 6 mg/dL (8-23); Calcium 7.9 mg/dL (8.5-10.5); Carbon Dioxide 23 mmol/L (22-29); Chloride 87 mmol/L (98-107); Globulin 2.7 g/dL (1.3-4.6); Glomerular Filtration Rate 83.7 mL/min (90-130); Glucose 169 mg/dL (65-115); Osmolality Calculated 258 mOsm/kg (285-295); Potassium 3.5 mmol/L (3.5-5.1); Sodium 123 mmol/L (136-145); Total Bilirubin 0.2 mg/dL (0.15-1.2); Total Protein 5.9 g/dL (6.6-8.7)
[2020-05-20] MEDS: ondansetron 2 mg/ML SDV 2 mL 4 MG IVP (18:38)
[2020-05-20] MEDS: valproic acid inj 500 MG in sodium chloride 0.9% 50 ML 55 MG IV (18:38)
[2020-05-20] MEDS: sodium chloride 0.9% 1,000 ML 999 ML IV (18:57)
[2020-05-20 19:54] LABS: Add Urine Microscopic? NO
[2020-05-20 20:00] LABS: Bilirubin Urine Neg (Negative); Blood Urine Neg (Negative); Glucose Urine UA Norm (Normal); Ketones Urine Negative (Negative); Leukocyte Esterase Urine Negative (Negative); Nitrate Urine Negative (Negative); Protein Urine Neg (Negative); Specific Gravity, Urine 1.015 (1.005-1.030); Urine Appearance Clear (CLEAR); Urine Color Yellow (Yellow); Urobilinogen Urine Norm (Negative); pH Urine 5 (5-7)
== END 2020-05-20 20:13 | disposition left against medical advice (07) ==
PROVIDERS: Emergency Provider Physician Assistant; PCP Nurse Practitioner
DX: G43.909 Migraine, unspecified, not intractable, without status migrainosus (principal); E87.1 Hypo-osmolality and hyponatremia; R53.1 Weakness; Z79.02 Long term (current) use of antithrombotics/antiplatelets; Z79.82 Long term (current) use of aspirin; Z79.4 Long term (current) use of insulin; E11.22 Type 2 diabetes mellitus with diabetic chronic kidney disease; I13.0 Hypertensive heart and chronic kidney disease with heart failure and stage 1 through stage 4 chronic kidney disease, or unspecified chronic kidney disease; N18.2 Chronic kidney disease, stage 2 (mild); I50.32 Chronic diastolic (congestive) heart failure; E78.5 Hyperlipidemia, unspecified; F17.210 Nicotine dependence, cigarettes, uncomplicated
CPT/HCPCS: 80053; 81003; 85025; 96365; 96375; 99284; J2405; J7030; J8597

== ENCOUNTER 2020-05-20 21:39 | Observation (INO) | payer OTHER, MEDICARE, SELFPAY ==
[2020-05-20 21:49] VITALS: BP 177/94; PULSE 96; RESP 22; TEMP 36; O2SAT 96; BMI 28.3
[2020-05-20 22:00] VITALS: BP 177/88; PULSE 93; O2SAT 93
[2020-05-20 22:09] VITALS: BP 177/88; PULSE 88; RESP 16; O2SAT 96
--- NOTE | 2020-05-20 22:16 | XRR_ITS ---
PROCEDURE INFORMATION: Exam: XR Chest Exam date and time: 05/20/2020 10:24 PM Age: 65 years old Clinical indication: Other: Weakness; Prior surgery; Surgery type: Hyst, gb TECHNIQUE: Imaging protocol: XR of the chest Views: 1 view. COMPARISON: CR XR chest 1V portable [id number] 03/15/2020 6:36 PM FINDINGS: Tubes, catheters and devices: Continued electrode in the area of the lower thoracic spine. Lungs: Continued probable very small calcified granuloma in the left mid lung. Still no consolidation. Pleural spaces: Still no pneumothorax or apparent pleural fluid. Heart/Mediastinum: Cardiomegaly still likely despite the lordosis and portable technique. Vasculature: Continued aortic elongation. Bones/joints: Continued diffuse osteopenia. No visible acute bony disease. XR/XR chest 1V portable [id number] IMPRESSION: No acute finding.
--- NOTE | 2020-05-20 22:17 | W.ED.WEAKNES ---
Documented by User: PETE Banegas 05/23/20 07:06 HPI - Weakness General: Chief complaint: Weakness Stated complaint: FEELING WORSE THAN D/C EARLIER Time Seen by Provider: 05/20/20 21:54 Source: patient and family Mode of arrival: wheelchair Limitations: no limitations History of Present Illness: HPI Narrative: Patient is a 65-year-old female who is returning to the emergency department after leaving AMA few hours ago. She states since her discharge her weakness has progressed. She is now stating she would like to be admitted to the hospital. Please see previous note for full HPI. Of note upon arrival patient seems to be slightly altered which was new from her previous visit. Speech was slightly slurred-some of this was contributed to her upper and lower dentures being loose. POC glucose obtained and found to be 48. Patient was immediately given juice and is already improving. PMH significant for previous CVA with residual dysphagia-has feeding tube, chronic hyponatremia, DM, hypothyroidism, sleep apnea-non compliant with CPAP, obesity, hyperlipidemia, CKD MD Complaint: generalized weakness Associated symptoms: Denies chest pain, chills, fever(s), syncope or vomiting Review of Systems Const: Denies: fever(s), chills or body aches Eyes: Denies: change in vision, blurry vision, photophobia, floaters or seeing flashes Card: Denies: chest pain, palpitations, irregular heart rhythm, syncope or pre-syncope Resp: Denies: dyspnea GI: Denies: abdominal pain, vomiting or diarrhea Musc: Denies: neck pain, back pain, extremity pain or joint pain Neuro: Reports: headache(s) (this has improved since last visit), weakness in extremities and dizziness; Denies: numbness in extremities or sensory changes [facility] ED PFSH: Medical History Anemia C. 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, recurrent severe without psychotic features Morbid obesity Post-traumatic stress disorder, chronic Surgical History H/O esophagogastroduodenoscopy H/O: hysterectomy History of bunionectomy bilateral Hx of cholecystectomy Status post colonoscopy Family History Mother Hypertension Diabetes Father Hypertension Asthma Other CAD (coronary artery disease) Cancer Denies family history of Anesthesia complication Bleeding disorder Social History Smoking and tobacco status: current every day smoker cigars Cigar details: 1 PPD Smoking risk assessment/counseling performed?: No Alcohol intake: former Former alcohol use details: Reportedly has not had any alcohol since June Household members: spouse Housing: Manufactured/Mobile home Marital status: Current occupational status: retired History of recent travel: No Physical Exam Const: COMMON NORMALS: no acute distress, patient oriented x3 and alert NUTRITIONAL APPEARANCE: obese ORIENTATION/CONSCIOUSNESS: Yes awake, Yes oriented to person, Yes oriented to place and Yes oriented to time OTHER: upon initial assessment patient was lethargic and altered when compared to when I had seen her just a few hours ago; she was still able to answer all questions appropriately; speech was slightly slurred; POC glucose obtained and found to be 48; after drinking juice patient has returned to her baseline per HENMT: COMMON NORMALS: normocephalic and atraumatic HEAD & SCALP: normocephalic and atraumatic TEETH & GINGIVA: Yes edentulous Eye: COMMON NORMALS: Equal, round and reactive pupils present and EOMs intact bilaterally GENERAL EYE: appearance normal, both eyes and all related structures PUPIL: Yes Equal, round and reactive pupils present OTHER: no nystagmus Neck/C-Spine: COMMON NORMALS: full ROM, no lymphadenopathy and no meningeal signs Resp: COMMON NORMALS: normal respiratory effort and clear to auscultation bilaterally AUSCULTATION: clear to auscultation bilaterally Cardio: COMMON NORMALS: regular rate and regular rhythm RATE: regular rate RHYTHM: regular rhythm Extremity: COMMON NORMALS: normal to inspection Neuro: NERI COMA SCALE: document GCS findings [place] coma scale eye opening: Spontaneous [place] coma scale verbal response: Orientated [place]eri coma scale motor response: Obey commands [place] coma scale total score: 15 COMMON NORMALS: patient oriented x3, CN's II-XII intact bilaterally, moves all extremities, no focal motor deficits and no sensory deficits noted SENSORIUM/ORIENTATION: Yes alert, Yes oriented to person, Yes oriented to place and Yes oriented to time MENINGEAL SIGNS: Yes no meningeal signs Skin: COMMON NORMALS: no rashes or lesions noted GENERAL SKIN EXAM: no rashes or lesions noted Course Consultations: Consultation #1: Dr. Murdock-accepts patient Vital Signs: Vital signs: Vital Signs Temperature 99.4 F 05/23/20 16:18 Pulse Rate 89 05/23/20 16:18 Respiratory Rate 18 05/23/20 16:18 Blood Pressure 173/83 05/23/20 16:18 Pulse Oximetry 98 05/23/20 16:18 MDM - Weakness MDM Narrative: Medical decision making narrative: Pt here with acute on chronic hyponatremia. She is symptomatic. She also arrived on this visit hypoglycemic. She is willing to be admitted now. IV access attempted several times by RNs even under US guidance however has been unsuccessful. Dr. Murdock will place central line. I have spoken to Dr. Acosta regarding patient and he agrees with plan for her. Lab Data: Labs: Lab Results 05/20/20 05/20/20 05/21/20 Range/Units 22:21 23:24 00:03 WBC 13.8 H (4.0-10.0) 10^3/ uL RBC 3.72 L (4.1-5.3) 10^6/u L Hgb 10.1 L (11.5-15.3) g/dL Hct 30.8 L (37.0-47.0) % MCV 82.8 (81-99) fL MCH 27.2 L (28.0-34.0) pg MCHC 32.8 (30.0-36.0) g/dL RDW 20.4 H (12.1-15.1) % Plt Count 456 H (130-400) 10^3/c mm MPV 9.3 (7.4-10.4) fL Neut % (Auto) 76.2 % Lymph % (Auto) 15.3 % [place] % (Auto) 7.6 % Eos % (Auto) 0.2 % Baso % (Auto) 0.1 % Neut # (Auto) 10.50 H (1.8-7.7) 10^3/u L Lymph # (Auto) 2.1 (0.8-4.8) 10^3/u L [place] # (Auto) 1.0 H (0.2-0.9) 10^3/u L Eos # (Auto) 0.0 (0.0-0.8) 10^3/u L Baso # (Auto) 0.0 (0.0-0.1) 10^3/u L Nucleated RBC % (a uto) 0 % Nucleated RBCs # 0.0 /100WBC Sodium (136-145) mmol/L Potassium (3.5-5.1) mmol/L Chloride (98-107) mmol/L Carbon Dioxide (22-29) mmol/L Anion Gap (5-19) BUN (8-23) mg/dL Creatinine (0.5-0.9) mg/dL GFR Calculation (90-130) mL/min Glucose (65-115) mg/dL POC Glucose 48 L 79 (70-110) mg/dL Calculated Osmolal ity (285-295) mOsm/k g Calcium (8.5-10.5) mg/dL Total Bilirubin (0.15-1.2) mg/dL AST (0-32) U/L ALT (0-33) U/L Alkaline Phosphata se (35-105) IU/L Total Protein (6.6-8.7) g/dL Albumin (3.5-5.2) g/dL Globulin (1.3-4.6) g/dL TSH (0.27-4.20) uIU/ mL 05/21/20 05/21/20 05/21/20 Range/Units 00:03 00:03 03:14 WBC (4.0-10.0) 10^3/ uL RBC (4.1-5.3) 10^6/u L Hgb (11.5-15.3) g/dL Hct (37.0-47.0) % MCV (81-99) fL MCH (28.0-34.0) pg MCHC (30.0-36.0) g/dL RDW (12.1-15.1) % Plt Count (130-400) 10^3/c mm MPV (7.4-10.4) fL Neut % (Auto) % Lymph % (Auto) % [place] % (Auto) % Eos % (Auto) % Baso % (Auto) % Neut # (Auto) (1.8-7.7) 10^3/u L Lymph # (Auto) (0.8-4.8) 10^3/u L [place] # (Auto) (0.2-0.9) 10^3/u L Eos # (Auto) (0.0-0.8) 10^3/u L Baso # (Auto) (0.0-0.1) 10^3/u L Nucleated RBC % (a uto) % Nucleated RBCs # /100WBC Sodium 124 L (136-145) mmol/L Potassium 3.3 L (3.5-5.1) mmol/L Chloride 87 L (98-107) mmol/L Carbon Dioxide 23 (22-29) mmol/L Anion Gap 17.3 (5-19) BUN 4 L (8-23) mg/dL Creatinine 0.6 (0.5-0.9) mg/dL GFR Calculation 100.0 (90-130) mL/min Glucose 79 (65-115) mg/dL POC Glucose 52 L (70-110) mg/dL Calculated Osmolal ity 254 L (285-295) mOsm/k g Calcium 7.9 L (8.5-10.5) mg/dL Total Bilirubin 0.2 (0.15-1.2) mg/dL AST 14 (0-32) U/L ALT 13 (0-33) U/L Alkaline Phosphata se 84 (35-105) IU/L Total Protein 5.8 L (6.6-8.7) g/dL Albumin 3.1 L (3.5-5.2) g/dL Globulin 2.7 (1.3-4.6) g/dL TSH 0.10 L (0.27-4.20) uIU/ mL Discharge Plan Discharge Patient Disposition: Admitted As Inpatient Admit Provider: Tian Murdock Clinical Impression: Hypoglycemia, Insulin dependent type 2 diabetes mellitus, Chronic hyponatremia Condition: Stable Discharge Diet: Advance as tolerated Discharge Activity: Increase activity as tolerated Coding Level of Care Code ED Credit Administration Specialist for Chg Fwd Exam Comprehensive Documented by User: Chema Acosta, 05/25/20 18:49 HPI - Weakness General: Chief complaint: Weakness Stated complaint: FEELING WORSE THAN D/C EARLIER Time Seen by Provider: 05/20/20 21:54 PFSH ED PFSH: Medical History Anemia C. 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, recurrent severe without psychotic features Morbid obesity Post-traumatic stress disorder, chronic Surgical History H/O esophagogastroduodenoscopy H/O: hysterectomy History of bunionectomy bilateral Hx of cholecystectomy Status post colonoscopy Family History Mother Hypertension Diabetes Father Hypertension Asthma Other CAD (coronary artery disease) Cancer Denies family history of Anesthesia complication Bleeding disorder Social History Smoking and tobacco status: current every day smoker cigars Cigar details: 1 PPD Smoking risk assessment/counseling performed?: No Alcohol intake: former Former alcohol use details: Reportedly has not had any alcohol since June Household members: spouse Housing: Manufactured/Mobile home Marital status: Current occupational status: retired History of recent travel: No Course Vital Signs: Vital signs: Vital Signs Temperature 99.4 F 05/23/20 16:18 Pulse Rate 89 05/23/20 16:18 Respiratory Rate 18 05/23/20 16:18 Blood Pressure 173/83 05/23/20 16:18 Pulse Oximetry 98 05/23/20 16:18 MDM - Weakness MDM Narrative: Medical decision making narrative: 65-year-old female originally seen by Mrs. ParsonsPaul LUGO I agree with her history, evaluation, and work-up. This patient has hyponatremia that is significant. She also is anemic she has significant mental status changes. She had a hypoglycemic episode here as well. IV access has been difficult to obtain. Dr. Murdock will place a central line in the ER. She will be admitted for the hyponatremia. Lab Data: Labs: Lab Results 05/20/20 05/20/20 05/21/20 Range/Units 22:21 23:24 00:03 WBC 13.8 H (4.0-10.0) 10^3/ uL RBC 3.72 L (4.1-5.3) 10^6/u L Hgb 10.1 L (11.5-15.3) g/dL Hct 30.8 L (37.0-47.0) % MCV 82.8 (81-99) fL MCH 27.2 L (28.0-34.0) pg MCHC 32.8 (30.0-36.0) g/dL RDW 20.4 H (12.1-15.1) % Plt Count 456 H (130-400) 10^3/c mm MPV 9.3 (7.4-10.4) fL Neut % (Auto) 76.2 % Lymph % (Auto) 15.3 % [place] % (Auto) 7.6 % Eos % (Auto) 0.2 % Baso % (Auto) 0.1 % Neut # (Auto) 10.50 H (1.8-7.7) 10^3/u L Lymph # (Auto) 2.1 (0.8-4.8) 10^3/u L [place] # (Auto) 1.0 H (0.2-0.9) 10^3/u L Eos # (Auto) 0.0 (0.0-0.8) 10^3/u L Baso # (Auto) 0.0 (0.0-0.1) 10^3/u L Nucleated RBC % (a uto) 0 % Nucleated RBCs # 0.0 /100WBC Sodium (136-145) mmol/L Potassium (3.5-5.1) mmol/L Chloride (98-107) mmol/L Carbon Dioxide (22-29) mmol/L Anion Gap (5-19) BUN (8-23) mg/dL Creatinine (0.5-0.9) mg/dL GFR Calculation (90-130) mL/min Glucose (65-115) mg/dL POC Glucose 48 L 79 (70-110) mg/dL Calculated Osmolal ity (285-295) mOsm/k g Calcium (8.5-10.5) mg/dL Total Bilirubin (0.15-1.2) mg/dL AST (0-32) U/L ALT (0-33) U/L Alkaline Phosphata se (35-105) IU/L Total Protein (6.6-8.7) g/dL Albumin (3.5-5.2) g/dL Globulin (1.3-4.6) g/dL TSH (0.27-4.20) uIU/ mL 05/21/20 05/21/20 05/21/20 Range/Units 00:03 00:03 03:14 WBC (4.0-10.0) 10^3/ uL RBC (4.1-5.3) 10^6/u L Hgb (11.5-15.3) g/dL Hct (37.0-47.0) % MCV (81-99) fL MCH (28.0-34.0) pg MCHC (30.0-36.0) g/dL RDW (12.1-15.1) % Plt Count (130-400) 10^3/c mm MPV (7.4-10.4) fL Neut % (Auto) % Lymph % (Auto) % [place] % (Auto) % Eos % (Auto) % Baso % (Auto) % Neut # (Auto) (1.8-7.7) 10^3/u L Lymph # (Auto) (0.8-4.8) 10^3/u L [place] # (Auto) (0.2-0.9) 10^3/u L Eos # (Auto) (0.0-0.8) 10^3/u L Baso # (Auto) (0.0-0.1) 10^3/u L Nucleated RBC % (a uto) % Nucleated RBCs # /100WBC Sodium 124 L (136-145) mmol/L Potassium 3.3 L (3.5-5.1) mmol/L Chloride 87 L (98-107) mmol/L Carbon Dioxide 23 (22-29) mmol/L Anion Gap 17.3 (5-19) BUN 4 L (8-23) mg/dL Creatinine 0.6 (0.5-0.9) mg/dL GFR Calculation 100.0 (90-130) mL/min Glucose 79 (65-115) mg/dL POC Glucose 52 L (70-110) mg/dL Calculated Osmolal ity 254 L (285-295) mOsm/k g Calcium 7.9 L (8.5-10.5) mg/dL Total Bilirubin 0.2 (0.15-1.2) mg/dL AST 14 (0-32) U/L ALT 13 (0-33) U/L Alkaline Phosphata se 84 (35-105) IU/L Total Protein 5.8 L (6.6-8.7) g/dL Albumin 3.1 L (3.5-5.2) g/dL Globulin 2.7 (1.3-4.6) g/dL TSH 0.10 L (0.27-4.20) uIU/ mL Discharge Plan Discharge Patient Disposition: Admitted As Inpatient Admit Provider: Tian Murdock Clinical Impression: Hypoglycemia, Insulin dependent type 2 diabetes mellitus, Chronic hyponatremia Condition: Stable Discharge Diet: Advance as tolerated Discharge Activity: Increase activity as tolerated Coding Level of Care Code ED Credit Administration Specialist for Padminig Fwd Exam Comprehensive
[2020-05-20 22:28] LABS: Glucose Point of Care 48 mg/dL (70-110)
[2020-05-20 23:00] VITALS: BP 165/90; PULSE 85; O2SAT 94
[2020-05-20 23:27] LABS: Glucose Point of Care 79 mg/dL (70-110)
[2020-05-21] VITALS (10 sets, daily range): BP systolic 121–157; BP diastolic 74–90; PULSE 78–138; RESP 18–21; TEMP 36.6–36.9; O2SAT 93–100
[2020-05-21 01:00] LABS: Basophils % 0.1 %; Eosinophils % 0.2 %; Hematocrit 30.8 % (37.0-47.0); Hemoglobin 10.1 g/dL (11.5-15.3); Lymphocytes # 2.1 10^3/uL (0.8-4.8); Lymphocytes % 15.3 %; Mean Corpuscular HGB Conc 32.8 g/dL (30.0-36.0); Mean Corpuscular Hemoglobin 27.2 pg (28.0-34.0); Mean Corpuscular Volume 82.8 fL (81-99); Mean Platelet Volume 9.3 fL (7.4-10.4); Monocytes % 7.6 %; Neutrophils % 76.2 %; Nucleated Red Blood Cells % 0 %; Platelet Count 456 10^3/cmm (130-400); Red Blood Count 3.72 10^6/uL (4.1-5.3); Red Cell Distribution Width 20.4 % (12.1-15.1); White Blood Count 13.8 10^3/uL (4.0-10.0)
--- NOTE | 2020-05-21 01:20 | P.HP_ITS ---
Providers/Chief Complaint Primary Care Provider: KATRINA Cash Chief Complaint: FEELING WORSE THAN D/C EARLIER History of Present Illness Ingris Mendosa is a 65 year old female who has multiple comorbid conditions including CVA with residual dysphagia requiring PEG tube placement chronic hyponatremia secondary to polydipsia, was recommended fludrocortisone and salt tablets for adrenal insufficiency presents today after sustaining multiple falls at home. is at the bedside who is endorsing that recently she has st arted eating via her mouth and PEG tube feeding has been decreased, no recent nausea, vomiting or change in bowel movements. Today she was very lethargic and fatigued, fell twice secondary to weakness. Patient denied any chest pain, orthopnea, shortness of breath, has seizure-like activities or syncope. Patient left AGAINST MEDICAL ADVICE earlier today to smoke outside and came back after 2 hours. When she returned slurred speech was noticed, POC glucose 48 her symptoms improved after improvement in blood sugar. Her baseline sodium fluctuates between 121-129. TSH normal. There was no IV access, central line was placed by myself, her internal jugular and subclavian veins were collapsing with bleeding, she was showing signs of intravascular depletion hence right femoral vein was accessed using ultrasound. Patient was in deep sleep, arousable, able to communicate with the team. No ac baltazar worsening of neurological symptoms. at the bedside who did not endorse any new change in her neurological status. Review of Systems Const: Reports: chills, body aches, change in appetite, change in weight and fatigue; Denies: fever(s) Eyes: Denies: change in vision ENMT: Denies: throat pain Card: Denies: chest pain Resp: Denies: dyspnea GI: Denies: abdominal pain : Denies: flank pain Musc: Denies: neck pain Skin/Breast: Denies: rash Neuro: Denies: headache(s) Psych: Denies: anxiety Endo: Denies: polyuria Jeremiah/Lymph: Denies: easy bruising All/Imm: Denies: urticaria Medications/Allergies Home Medications Medication Instructions Recorded Confirmed Last Taken Type atorvastatin 80 mg PO BEDTIME@2200 04/09/19 05/20/20 05/19/20 History levothyroxine 75 mcg PO DAILY@0800 04/09/19 05/20/20 05/20/20 History pantoprazole 40 mg PO DAILY@0800 04/09/19 05/20/20 05/20/20 History glimepiride 4 mg PO DAILY@0800 02/06/20 05/20/20 05/20/20 History metformin 1,000 mg PO BID@0800,2200 02/06/20 05/20/20 05/20/20 History Lantus U-100 Insulin 14 unit SUBCUT DAILY@0800 02/22/20 05/20/20 05/20/20 History acetaminophen [Tylenol] 650 mg PO Q4H PRN 02/22/20 05/20/20 05/20/20 History insulin aspart U-100 [Novolog See Rx Instructions .ROUTE .COMPLEX 02/22/20 05/20/20 03/06/20 History Flexpen U-100 Insulin] aspirin [Aspir-81] 81 mg PO DAILY@0800 03/06/20 05/20/20 05/20/20 History clopidogrel 75 mg PO DAILY@0800 03/06/20 05/20/20 05/20/20 History hgvdtqscaw-DK-AV-acetaminophen 15 ml PO Q6H PRN 03/06/20 05/20/20 03/06/20 History [Vicks DayQuil-NyQuil Cold-Flu] fludrocortisone 0.1 mg PO DAILY@0800 03/06/20 05/20/20 05/20/20 History hydralazine 25 mg PO BID@0800,199903/06/20 05/20/20 05/20/20 History metoprolol tartrate 50 mg PO BID@0800,2200 03/06/20 05/20/20 05/20/20 History prednisolone 5 mg PO DAILY@0800 03/06/20 05/20/20 05/20/20 History sodium chloride 1 g PO BID@0800,2200 03/06/20 05/20/20 05/20/20 History mirtazapine 30 mg PO DAILY 05/20/20 05/20/20 05/20/20 History venlafaxine 150 mg PO DAILY@0800 05/20/20 05/20/20 05/20/20 History Allergies Allergy/AdvReac Type Severity Reaction Status Date / Time No Known Allergies Allergy Verified 05/20/20 21:53 PFSH Acute PFSH: Medical History Anemia C. 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, recurrent severe without psychotic features Morbid obesity Post-traumatic stress disorder, chronic Surgical History H/O esophagogastroduodenoscopy H/O: hysterectomy History of bunionectomy bilateral Hx of cholecystectomy Status post colonoscopy Family History Mother Hypertension Diabetes Father Hypertension Asthma Other CAD (coronary artery disease) Cancer Denies family history of Anesthesia complication Bleeding disorder Social History Smoking and tobacco status: current every day smoker cigars Cigar details: 1 PPD Smoking risk assessment/counseling performed?: No Alcohol intake: former Former alcohol use details: Reportedly has not had any alcohol since June Household members: spouse Housing: Manufactured/Mobile home Marital status: Current occupational status: retired History of recent travel: No Vitals/I&O/Wt Last Vital Signs Temp 96.8 F L 05/20/20 21:49 Pulse 88 05/20/20 22:09 Resp 16 05/20/20 22:09 BP 177/88 05/20/20 22:09 Pulse Ox 96 05/20/20 22:09 Weight last 48 hrs Weight 72.575 kg Physical Exam Narrative: EXAM NARRATIVE: Middle-age female, morbidly obese Was snoring when I entered the room however arousable to verbal command No neurological deficit noted, EOMI, PERRLA no new neurological deficit from her baseline S1, S2 no acute worsening of CHF No acute respiratory distress was saturating well on room air Abdomen distended central obesity, PEG tube site has mild brown material around the insertion site which seems to be the tube feeding residual No active cellulitis noticed Right femoral vein central access Low extremity no edema gangrene ulcer Appropriate mood and affect GCS 15 Data : 05/21/20 00:03 05/21/20 00:03 A&P Assessment and plan (1) Chronic hyponatremia: Her baseline sodium seems to be between 04 12- 29 Has history of adrenal insufficiency I will give her stress dose steroids I do believe this acute on chronic hyponatremia secondary to poor p.o. intake she recently started using p.o. diet instead of PEG tube Not endorsing polydipsia Ultrasound also revealed collapsibility of internal jugular and subclavian vein with breathing consistent with intravascular volume depletion I will keep her on normal saline 30 cc/h and obtain sodium every 4 hours with target correction 6 mEq in 24 hours Continue salt tablets will give her stress dose steroids Status: Acute (2) Migraine: No active migraine no active headache no signs of new neurological deficit Status: Acute Qualifiers: Intractability: not intractable Migraine type: without aura Status migrainosus presence: without status migrainosus Qualified Code(s): G43.009 - Migraine without aura, not intractable, without status migrainosus (3) Hypoglycemia: Most likely secondary to renal insufficiency, symptoms improved after glucose improvement no acute deficit noted, stress test steroid given Status: Acute Additional A&P Information Hypothyroidism TSH overcorrected 0.1, kindly consider decreasing levothyroxine dosage Type 2 diabetes: I will continue her mechanical soft diet and sliding scale along Lantus GERD: Continue Protonix Coronary disease continue aspirin, Plavix, high-dose statins no active chest pain, she also has bilateral extracranial carotid stenosis 50 to 60%, Grade 1 diastolic dysfunction EF 55% no acute exacerbation Full code Mechanical soft diet DVT prophylaxis Lovenox Right central femoral vein access 05/21/20 because of poor IV access Attestations Medical Necessity Statement*: Anticipating discharge in less than 48 hours currently need overnight fluid hydration acute on chronic hyponatremia and mild dehydration Time Spent in Patient Care: (>than 50% of time spent in counselling and/or direct pt care on unit) . 60mins, 30 minutes of critical time included for right-sided central venous access which was done in the ER at bedside Critical Care Time: Right femoral line placement Critical Care Time (min): 30 Coding Level of Care Code Acute Steam Trap Worker for [facility] Diagnoses Chronic hyponatremia E87.1 Migraine G43.009 Intractability: not intractable Migraine type: without aura Status migrainosus presence: without status migrainosus Hypoglycemia E16.2
[2020-05-21 01:44] LABS: Alanine Aminotransferase 13 U/L (0-33); Albumin Level 3.1 g/dL (3.5-5.2); Alkaline Phosphatase 84 IU/L (35-105); Anion Gap 17.3 (5-19); Aspartate Amino Transferase 14 U/L (0-32); Blood Urea Nitrogen 4 mg/dL (8-23); Calcium 7.9 mg/dL (8.5-10.5); Carbon Dioxide 23 mmol/L (22-29); Chloride 87 mmol/L (98-107); Globulin 2.7 g/dL (1.3-4.6); Glucose 79 mg/dL (65-115); Osmolality Calculated 254 mOsm/kg (285-295); Potassium 3.3 mmol/L (3.5-5.1); Sodium 124 mmol/L (136-145); Total Bilirubin 0.2 mg/dL (0.15-1.2); Total Protein 5.8 g/dL (6.6-8.7)
[2020-05-21 03:18] LABS: Glucose Point of Care 52 mg/dL (70-110)
[2020-05-21] MEDS: dextrose 50% syringe 50 mL IVP (03:18)
[2020-05-21 03:55] LABS: Glucose Point of Care 224 mg/dL (70-110)
--- NOTE | 2020-05-21 03:58 | PM.ACPR ---
Procedure/Consent Procedure Narrative: Poor IV access with hyponatremia Ultrasound was used to evaluate her central veins, collapsibility of subclavian and internal jugular vein noticed with breathing pattern hence right femoral vein was accessed Patient was prepped and draped after taking consent 1% lidocaine 7 mL injected to make a wheal 3 cm below middle of inguinal ligament Ultrasound was used to locate femoral vein, Seldinger technique was used to place triple-lumen catheter, all 3 ports had good venous return and they were flushed, sterile dressing was placed Estimated blood loss 5 to 10 mL No postprocedural complication Anesthesia: Topical 1% lidocaine 7 mL injected subcutaneously ICU nurse and Dr. Acosta were present in the room
[2020-05-21] MEDS: enoxaparin 40 mg/0.4 mL Syringe SUBCUT (04:14)
[2020-05-21] MEDS: sodium chloride 0.9% 1,000 ML 30 ML IV (04:14)
[2020-05-21] MEDS: hydrocortisone 100 mg/2 mL SDV IVP (04:14)
[2020-05-21] MEDS: lidocaine 1% 5 ML in potassium chloride premix 100 ML 25 ML IV (05:03)
[2020-05-21 06:56] LABS: Glucose Point of Care 129 mg/dL (70-110)
[2020-05-21 08:11] LABS: Magnesium 1.1 mg/dL (1.7-2.3); Sodium 129 mmol/L (136-145)
[2020-05-21] MEDS: clopidogrel 75 mg Tablet PO (08:16)
[2020-05-21] MEDS: fludrocortisone 0.1 mg Tablet PO ×2 (08:16→17:33)
[2020-05-21] MEDS: pantoprazole DR 40 mg Tablet PO (08:16)
[2020-05-21] MEDS: aspirin 81 mg EC Tablet PO (08:16)
[2020-05-21] MEDS: levothyroxine 50 mcg Tablet PO (08:16)
[2020-05-21] MEDS: insulin glargine 100 units/1 mL 5 UNIT SUBCUT (08:17)
--- NOTE | 2020-05-21 08:18 | PC.NURSE ---
patient urinated in toilet and missed the hat that was in the toilet.
--- NOTE | 2020-05-21 08:25 | PC.NURSE ---
MANAGER KNOWLEDGE reported patient's HR 140. patient had just came back from [place]. Traffic Signal Repairer checked patient's HR 15 mins later and it is 135. Traffic Signal Repairer applied telemetry to check HR because it was WNL per documented vital signs.
[2020-05-21] MEDS: sodium chloride 1 gm Tablet PO ×2 (08:32→21:46)
[2020-05-21] MEDS: hyDRALAzine 25 mg Tablet PO ×2 (08:32→21:47)
[2020-05-21] MEDS: acetaminophen 325 mg Tablet 650 MG PO ×2 (08:32→20:19)
[2020-05-21] MEDS: metoprolol tartrate 50 mg Tablet PO ×2 (08:32→21:46)
--- NOTE | 2020-05-21 10:11 | PC.PHAR ---
PT UNABLE TO VERIFY MEDICATIONS-PT STATES HER TAKES CARE OF HER MEDICATIONS-PTS ORION STATES HE SETS UP THE PTS MEDICATIONS AND GIVES HER THE INSULIN SHOTS-SOME OF THE MEDICATIONS ENTERED DONT PULL UP ON EXT MED HISTORY BUT PTS STATES THE PT TAKES THE MEDICATIONS ENTERED
--- NOTE | 2020-05-21 10:33 | PC.NURSE ---
Rcvd verbal order from Dr Zamarripa to change patient's ACCU checks from Q6H to ACHS.
[2020-05-21 10:34] LABS: Sodium 127 mmol/L (136-145)
[2020-05-21] MEDS: magnesium sulfate premix 4 GM/100 ML PREMIX IV (10:36)
[2020-05-21 11:00] LABS: Glucose Point of Care 324 mg/dL (70-110)
--- NOTE | 2020-05-21 11:52 | PM.PN ---
Subjective Subjective: Interval history: This morning patient was examined, she is laying in bed, she had breakfast this morning, a couple of pudding cups, was able to eat and drink, she tells me that she has a bad headache this morning Vitals/I&O/Wt Last Vital Signs Temp 98.1 F 05/21/20 11:11 Pulse 87 05/21/20 11:11 Resp 18 05/21/20 11:11 BP 121/79 05/21/20 11:11 Pulse Ox 96 05/21/20 11:11 05/20/20 05/21/20 05/21/20 22:59 06:59 14:59 Intake Total 105 / 105 Balance 105 / 105 Weight last 48 hrs Weight 72.575 kg Physical Exam Const: COMMON NORMALS: no acute distress and patient oriented x3 ORIENTATION/CONSCIOUSNESS: Yes confused OTHER: Does have episodes of confusion HENMT: COMMON NORMALS: normocephalic HEAD & SCALP: normocephalic Neck/C-Spine: COMMON NORMALS: no JVD Resp: COMMON NORMALS: normal respiratory effort, No retractions, No use of accessory muscles and clear to auscultation bilaterally AUSCULTATION: clear to auscultation bilaterally Cardio: COMMON NORMALS: no JVD, regular rate, regular rhythm, S1 normal heart sound present and S2 normal heart sound present RATE: regular rate RHYTHM: regular rhythm HEART SOUNDS: S1 normal heart sound present and S2 normal heart sound present GI: COMMON NORMALS: Normal to inspection, nondistended, normoactive bowel sounds present, Soft to palpation, non-tender, No hepatosplenomegaly present, no masses and no bruits PALPATION: Yes Soft to palpation and Yes No hepatosplenomegaly present Extremity: COMMON NORMALS: capillary refill normal, no clubbing, cyanosis or edema, no calf tenderness and no pedal edema Neuro: COMMON NORMALS: patient oriented x3 Data : 05/21/20 00:03 05/21/20 09:45 A&P Assessment and plan (1) Chronic hyponatremia: Her baseline sodium seems to be between 21-1 29 Has history of adrenal insufficiency I will give her stress dose steroids I do believe this acute on chronic hyponatremia secondary to poor p.o. intake she recently started using p.o. diet instead of PEG tube Not endorsing polydipsia Ultrasound also revealed collapsibility of internal jugular and subclavian vein with breathing consistent with intravascular volume depletion I will keep her on normal saline 30 cc/h and obtain sodium every 4 hours with target correction 6 mEq in 24 hours Continue salt tablets will give her stress dose steroids, fludrocortisone Status: Acute (2) Migraine: Currently having a headache, no neurologic deficits, try Ultram Status: Acute Qualifiers: Intractability: not intractable Migraine type: without aura Status migrainosus presence: without status migrainosus Qualified Code(s): G43.009 - Migraine without aura, not intractable, without status migrainosus (3) Hypoglycemia: Most likely secondary to renal insufficiency, symptoms improved after glucose improvement no acute deficit noted, stress test steroid given Monitor blood sugars closely Status: Acute Additional A&P Information Hypothyroidism TSH overcorrected 0.1, will recheck TSH in 6 weeks Hypomagnesemia, replace magnesium levels Type 2 diabetes: I will continue her mechanical soft diet and sliding scale along Lantus GERD: Continue Protonix Coronary disease continue aspirin, Plavix, high-dose statins no active chest pain, she also has bilateral extracranial carotid stenosis 50 to 60%, Grade 1 diastolic dysfunction EF 55% no acute exacerbation Full code Mechanical soft diet DVT prophylaxis Lovenox Right central femoral vein access 05/21/20 because of poor IV access Plan for today, continue fluids, monitor serum sodiums, magnesium replacement, continue monitor mentation, monitor blood sugars, repeat blood work in the afternoon Attestations Medical Necessity Statement*: Patient requires hospitalization for acute on chronic hyponatremia, hypomagnesemia, hypoglycemia Coding Level of Care Code Acute Digital Business Analyst for [facility] Diagnoses Chronic hyponatremia E87.1 Migraine G43.009 Intractability: not intractable Migraine type: without aura Status migrainosus presence: without status migrainosus Hypoglycemia E16.2
[2020-05-21 13:20] LABS: Anion Gap 12.8 (5-19); Blood Urea Nitrogen 5 mg/dL (8-23); Calcium 8.2 mg/dL (8.5-10.5); Carbon Dioxide 27 mmol/L (22-29); Chloride 93 mmol/L (98-107); Glucose 176 mg/dL (65-115); Magnesium 2.9 mg/dL (1.7-2.3); Osmolality Calculated 270 mOsm/kg (285-295); Phosphorus 2.6 mg/dL (2.5-4.5); Potassium 3.8 mmol/L (3.5-5.1); Sodium 129 mmol/L (136-145)
[2020-05-21] MEDS: TRAMadol 50 mg Tablet 25 MG PO (13:26)
--- NOTE | 2020-05-21 15:37 | PC.NURSE ---
dr. ruvalcaba notified pt is still complaining of a headache. new orders recieved
[2020-05-21] MEDS: morphine 4 mg/mL SDV 1 mL 1 MG IVP (15:58)
[2020-05-21 17:10] LABS: Glucose Point of Care 180 mg/dL (70-110)
[2020-05-21 17:12] LABS: Sodium 132 mmol/L (136-145)
[2020-05-21 20:23] LABS: Glucose Point of Care 187 mg/dL (70-110)
[2020-05-21 21:02] LABS: Sodium 129 mmol/L (136-145)
[2020-05-21] MEDS: atorvastatin 40 mg Tablet 80 MG PO (21:46)
[2020-05-21] MEDS: zolpidem 5 mg Tablet PO (23:44)
[2020-05-22] VITALS (10 sets, daily range): BP systolic 112–140; BP diastolic 58–70; PULSE 77–97; RESP 17–19; TEMP 36.3–37.1; O2SAT 94–97
[2020-05-22 00:09] LABS: Sodium 133 mmol/L (136-145)
[2020-05-22] MEDS: acetaminophen 325 mg Tablet 650 MG PO ×3 (01:34→16:40)
[2020-05-22] MEDS: enoxaparin 40 mg/0.4 mL Syringe SUBCUT (03:53)
[2020-05-22] MEDS: OLANZapine 10 mg VIAL 5 MG IM (03:54)
[2020-05-22] MEDS: sodium chloride 0.9% 1,000 ML 30 ML IV (05:28)
[2020-05-22 06:17] LABS: Basophils % 0.2 %; Eosinophils # 0.1 10^3/uL (0.0-0.8); Eosinophils % 0.5 %; Hematocrit 27.8 % (37.0-47.0); Hemoglobin 9.1 g/dL (11.5-15.3); Lymphocytes # 4.4 10^3/uL (0.8-4.8); Lymphocytes % 30.5 %; Mean Corpuscular HGB Conc 32.7 g/dL (30.0-36.0); Mean Corpuscular Hemoglobin 26.5 pg (28.0-34.0); Mean Platelet Volume 9.3 fL (7.4-10.4); Monocytes # 1.1 10^3/uL (0.2-0.9); Monocytes % 7.3 %; Neutrophils # 8.84 10^3/uL (1.8-7.7); Neutrophils % 61.2 %; Nucleated Red Blood Cells % 0 %; Platelet Count 435 10^3/cmm (130-400); Red Blood Count 3.43 10^6/uL (4.1-5.3); Red Cell Distribution Width 20.6 % (12.1-15.1); White Blood Count 14.5 10^3/uL (4.0-10.0)
[2020-05-22 06:36] LABS: Glucose Point of Care 149 mg/dL (70-110)
[2020-05-22 06:44] LABS: Alanine Aminotransferase 11 U/L (0-33); Albumin Level 2.9 g/dL (3.5-5.2); Alkaline Phosphatase 91 IU/L (35-105); Anion Gap 12.4 (5-19); Aspartate Amino Transferase 13 U/L (0-32); Blood Urea Nitrogen 5 mg/dL (8-23); Calcium 7.5 mg/dL (8.5-10.5); Carbon Dioxide 29 mmol/L (22-29); Chloride 95 mmol/L (98-107); Globulin 2.4 g/dL (1.3-4.6); Glomerular Filtration Rate 123.4 mL/min (90-130); Glucose 129 mg/dL (65-115); Magnesium 1.6 mg/dL (1.7-2.3); Osmolality Calculated 275 mOsm/kg (285-295); Phosphorus 2.3 mg/dL (2.5-4.5); Potassium 3.4 mmol/L (3.5-5.1); Sodium 133 mmol/L (136-145); Total Bilirubin 0.2 mg/dL (0.15-1.2); Total Protein 5.3 g/dL (6.6-8.7)
--- NOTE | 2020-05-22 06:47 | PC.NURSE ---
ALTERED MENTAL STATUS: THE PATIENT HAS HAD AN INCREASED CHANGE IN MENTATION OVER THE MORNING HOURS. THE PATIENT IS ALERT TO SELF, , AND YEAR. SHE IS UNAWARE TO WHERE SHE IS AND WHY SHE IS HERE. THE PATIENT HAS A CENTRAL LINE TO THE RIGHT GROIN. WITH THIS THE PATIENT IS ON STRICT BED REST. THE PATIENT WAS HAVING CONFUSION ABOUT WHY SHE COULDN'T GET UP TO BATHROOM. SHE WAS RESISTING THE ORDER TO STAY IN THE BED, SO A ONE ON ONE SITTER WAS PLACED IN THE ROOM, WHICH WAS THIS NURSE. THE PATIENT CCNTINUOUSLY REMINDED TO WHY SHE WAS ON BEDREST. THE PATIENT WAS TOLD THAT IF SHE DID NOT STAY IN BED, SHE WOULD END UP IN RESTRAINTS. TO THIS THE PATIENT REPLIED IF YOU TRY TO RESTRAIN ME, I WILL LEAVE! THE PATIENT CONTINUED TO TRY TO GET OUT OF BED. SHE TRIED TO USE THE BED PAIN FOR VOIDING, BUT WAS UNABLE TO. AN ORDER FOR STRAIGHT CATH WAS OBTAINED AND AN OUTPUT OF 500 ML. 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 THE PATIENT ALSO THOUGHT THERE WAS WHERE SHE WAS ADMITTED.
[2020-05-22] MEDS: clopidogrel 75 mg Tablet PO (08:35)
[2020-05-22] MEDS: sodium chloride 1 gm Tablet PO ×2 (08:35→21:10)
[2020-05-22] MEDS: aspirin 81 mg EC Tablet PO (08:35)
[2020-05-22] MEDS: hyDRALAzine 25 mg Tablet PO ×2 (08:35→21:10)
[2020-05-22] MEDS: metoprolol tartrate 50 mg Tablet PO ×2 (08:35→21:10)
[2020-05-22] MEDS: levothyroxine 50 mcg Tablet PO (08:35)
[2020-05-22] MEDS: pantoprazole DR 40 mg Tablet PO (08:35)
[2020-05-22] MEDS: fludrocortisone 0.1 mg Tablet PO ×2 (08:45→17:32)
--- NOTE | 2020-05-22 09:11 | PC.NURSE ---
At time of assessment patient is oriented to self only. Answering orientation questions, pt believes that she is on the neuro psych unit, Isaías is the president and she did not know the date. pt is requesting tylenol for a headache.
[2020-05-22] MEDS: insulin glargine 100 units/1 mL 5 UNIT SUBCUT (10:03)
--- NOTE | 2020-05-22 10:06 | PC.NURSE ---
insulin glargine administered late because the needle sent from pharmacy was bent.
--- NOTE | 2020-05-22 13:50 | CT_ITS ---
WS: [id number] CT CHEST WITHOUT INTRAVENOUS CONTRAST HISTORY: Concern for aspiration pneumonia TECHNIQUE: Contiguous 5 mm axial imaging performed on the thorax. Coronal and sagittal reformats are submitted. All CT scans at [facility] use at least one of these dose optimization techniq ues: automated exposure control; mA and/or kV adjustment per patient size (includes targeted exams wh ere dose is matched to clinical indication); or iterative reconstruction. CONTRAST: None DLP: 904.55 mGy.cm COMPARISON: 12/05/2019 Lungs and central airway: Less than 3 mm nodule at the RIGHT apex the posterior RIGHT lower lobe. No interval change. Overall there is been a significant improvement in the previously described scattere d opacifications. No residual pneumonia or pneumonitis. Pleura: Mild increased pleural fat in the LEFT lower thorax. No effusion. Heart and pericardium: Mild cardiomegaly with no pericardial effusion. Mediastinum and sherly: No mediastinum or hilar adenopathy. Vessels: Moderate atherosclerosis aorta. No aneurysm. Pulmonary artery size is slightly enlarged. Chest wall and lower neck: No soft tissue masses. Upper abdomen: Prior cholecystectomy. Mild perinephric stranding around the upper poles of each kidne y. There is a PEG tube within the stomach. Osseous structures: Dorsal column stimulator electrodes are in the posterior column of the midthoraci c spine. Mild S-shaped scoliosis of the thoracic spine. CT/CT chest wo con [id number] IMPRESSION: 1. No pneumonia. Significant improvement in aeration bilaterally with no resid ual pneumonitis. 2. Mild pulmonary hypertension. 3. Mild cardiomegaly. 4. Prior cholecystectomy.
--- NOTE | 2020-05-22 13:51 | PM.PN ---
Subjective Subjective: Interval history: Patient denies any complaints this morning and wants to go home. She is not sure why she is in the hospital. She thinks she is in the [place]. She knew year but did not know name of president. Reports that she is living with her who can come and pick her up in 25 minutes. Reports that she wants her central line to be removed so she can walk. On review of systems she denied lightheadedness or dizziness. Denied sore throat or cough. Denied difficulty swallowing. Denied shortness of breath or chest pain. Denied abdominal pain. Denied any problems with bowel movement. Denied any problems urination. Denied fever or chills. Denied any joint pains or skin rash. Sodium improved. White blood cell count increasing. Vitals are stable. Discussed with her Chepe over the phone who reports that patient is confused and disoriented at baseline. Vitals/I&O/Wt Last Vital Signs Temp 98.8 F 05/22/20 11:18 Pulse 96 05/22/20 11:18 Resp 18 05/22/20 11:18 BP 118/65 05/22/20 11:18 Pulse Ox 94 05/22/20 11:18 05/21/20 05/22/20 05/22/20 22:59 06:59 14:59 Intake Total 840 / 1285 757 / 2042 220 / 220 Output Total 500 / 500 Balance 840 / 1285 257 / 1542 220 / 220 Weight last 48 hrs Weight 72.575 kg Physical Exam Narrative: EXAM NARRATIVE: Minimal bibasilar Rales. Regular heart. Abdomen soft and nontender. PEG tube noted. No lower extremity edema Data : 05/22/20 06:00 05/22/20 06:00 A&P Assessment and plan (1) Chronic hyponatremia: Her baseline sodium seems to be between 1 21-1 29 Has history of adrenal insufficiency I will give her stress dose steroids I do believe this acute on chronic hyponatremia secondary to poor p.o. intake she recently started using p.o. diet instead of PEG tube Not endorsing polydipsia Ultrasound also revealed collapsibility of internal jugular and subclavian vein with breathing consistent with intravascular volume depletion I will keep her on normal saline 30 cc/h and obtain sodium every 4 hours with target correction 6 mEq in 24 hours Continue salt tablets will give her stress dose steroids, fludrocortisone Status: Acute (2) Migraine: Currently having a headache, no neurologic deficits, try Ultram Status: Acute Qualifiers: Intractability: not intractable Migraine type: without aura Status migrainosus presence: without status migrainosus Qualified Code(s): G43.009 - Migraine without aura, not intractable, without status migrainosus (3) Hypoglycemia: Most likely secondary to renal insufficiency, symptoms improved after glucose improvement no acute deficit noted, stress test steroid given Monitor blood sugars closely Status: Acute Additional A&P Information Hypothyroidism TSH overcorrected 0.1, will recheck TSH in 6 weeks Hypomagnesemia, replace magnesium levels Type 2 diabetes: I will continue her mechanical soft diet and sliding scale along Lantus GERD: Continue Protonix Coronary disease continue aspirin, Plavix, high-dose statins no active chest pain, she also has bilateral extracranial carotid stenosis 50 to 60%, Grade 1 diastolic dysfunction EF 55% no acute exacerbation Full code Mechanical soft diet DVT prophylaxis Lovenox Right central femoral vein access 05/21/20 because of poor IV access Plan: Obtain CT scan of the chest without contrast to evaluate for possible aspiration pneumonia. I do not have any other explanation of worsening leukocytosis. Reports that she tolerates oral intake well therefore I will discontinue IV fluids and we will remove femoral central line. We will request physical and speech therapy evaluation. Attestations Medical Necessity Statement*: Patient with worsening leukocytosis requires close inpatient monitoring, treatment evaluation until deemed safe for discharge. Coding Level of Care Code Acute Lead Case Manager for [facility] Fwd Diagnoses Chronic hyponatremia E87.1 Migraine G43.009 Intractability: not intractable Migraine type: without aura Status migrainosus presence: without status migrainosus Hypoglycemia E16.2
[2020-05-22] MEDS: potassium chloride ER 20 mEq Tablet 40 MEQ PO (15:26)
[2020-05-22] MEDS: magnesium sulfate premix 2 GM/50 ML PIGGYBACK IV (15:26)
[2020-05-22 17:07] LABS: Glucose Point of Care 226 mg/dL (70-110)
--- NOTE | 2020-05-22 19:13 | PC.NURSE ---
Spoke with Dr Abreu vd order to removed central line and ok to leave IV out unless patient requires IV meds, then we will insert iv.
[2020-05-22 21:05] LABS: Glucose Point of Care 135 mg/dL (70-110)
[2020-05-22] MEDS: zolpidem 5 mg Tablet PO (21:11)
[2020-05-22] MEDS: atorvastatin 40 mg Tablet 80 MG PO (21:11)
[2020-05-23] VITALS (7 sets, daily range): BP systolic 119–173; BP diastolic 67–84; PULSE 87–106; RESP 18–19; TEMP 36.6–37.4; O2SAT 93–98
[2020-05-23] MEDS: enoxaparin 40 mg/0.4 mL Syringe SUBCUT (04:28)
[2020-05-23 06:08] LABS: Alanine Aminotransferase 14 U/L (0-33); Albumin Level 2.8 g/dL (3.5-5.2); Alkaline Phosphatase 84 IU/L (35-105); Anion Gap 12.5 (5-19); Aspartate Amino Transferase 16 U/L (0-32); Blood Urea Nitrogen 4 mg/dL (8-23); Calcium 7.6 mg/dL (8.5-10.5); Carbon Dioxide 30 mmol/L (22-29); Chloride 96 mmol/L (98-107); Globulin 2.7 g/dL (1.3-4.6); Glomerular Filtration Rate 123.4 mL/min (90-130); Glucose 229 mg/dL (65-115); Magnesium 1.6 mg/dL (1.7-2.3); Osmolality Calculated 284 mOsm/kg (285-295); Phosphorus 2.9 mg/dL (2.5-4.5); Potassium 3.5 mmol/L (3.5-5.1); Sodium 135 mmol/L (136-145); Total Bilirubin 0.2 mg/dL (0.15-1.2); Total Protein 5.5 g/dL (6.6-8.7)
[2020-05-23 06:12] LABS: Basophils % 0.3 %; Eosinophils # 0.1 10^3/uL (0.0-0.8); Eosinophils % 0.5 %; Hematocrit 30.4 % (37.0-47.0); Hemoglobin 9.4 g/dL (11.5-15.3); Lymphocytes # 2.4 10^3/uL (0.8-4.8); Lymphocytes % 24.9 %; Mean Corpuscular HGB Conc 30.9 g/dL (30.0-36.0); Mean Corpuscular Hemoglobin 26.9 pg (28.0-34.0); Mean Corpuscular Volume 87.1 fL (81-99); Mean Platelet Volume 9.1 fL (7.4-10.4); Monocytes # 0.8 10^3/uL (0.2-0.9); Monocytes % 8.6 %; Neutrophils # 6.23 10^3/uL (1.8-7.7); Neutrophils % 65.1 %; Nucleated Red Blood Cells % 0 %; Platelet Count 420 10^3/cmm (130-400); Red Blood Count 3.49 10^6/uL (4.1-5.3); Red Cell Distribution Width 21.6 % (12.1-15.1); White Blood Count 9.6 10^3/uL (4.0-10.0)
[2020-05-23 06:42] LABS: Glucose Point of Care 246 mg/dL (70-110)
[2020-05-23 10:35] LABS: Glucose Point of Care 239 mg/dL (70-110)
[2020-05-23] MEDS: aspirin 81 mg EC Tablet PO (10:39)
[2020-05-23] MEDS: pantoprazole DR 40 mg Tablet PO (10:39)
[2020-05-23] MEDS: metoprolol tartrate 50 mg Tablet PO (10:39)
[2020-05-23] MEDS: fludrocortisone 0.1 mg Tablet PO (10:39)
[2020-05-23] MEDS: sodium chloride 1 gm Tablet PO (10:39)
[2020-05-23] MEDS: levothyroxine 50 mcg Tablet PO (10:40)
[2020-05-23] MEDS: clopidogrel 75 mg Tablet PO (10:40)
[2020-05-23] MEDS: hyDRALAzine 25 mg Tablet PO (10:40)
[2020-05-23] MEDS: acetaminophen 325 mg Tablet 650 MG PO (10:40)
[2020-05-23] MEDS: insulin glargine 100 units/1 mL 5 UNIT SUBCUT (10:41)
--- NOTE | 2020-05-23 10:42 | PC.CHAP ---
Pastoral Care Encounter/Spiritual Assessment Type of Contact [] Declined wire weaving loom setter visit [] Patient/Family/Request visit [] Outpatient visit [] Follow-up visit [] Physician referral [] Code/Alert [X] Routine visit [] Staff referral [] Actively dying [] Patient sleeping [] Family support [] [] Out of room [] Palliative care [] [] Receiving care in room [] Pre-surgical visit [] Trauma [] Long length of stay [] ICU visit [] Other: Relational/Emotional Strength [X] Patient feels connected with others/family/visitors/staff [] Distress [] Loneliness/isolation [] Abandonment Spirituality of Patient [] Person of [place] [] Attends Amish of their [place] [] Believes in Prayer [] Reads Bible or Pentecostal materials [] There are Spiritual issues to be addressed Rehab Nursing Tech Interventions [] Prayer [X] Active listening [X] Non-anxious presence [] Spiritual/emotional support [] Crisis/trauma care [] Spiritual counseling [] Bereavement support [] Provided bereavement packet [] Provided Bible/devotional materials [] Provided toy/stuffed animal, coloring book to patient or family member [] Provided Communion [] Anointing/[place] [] Salvation [] Completed spiritual assessment [] Other: Impact on Illness or Injury [] Angry [] Fearful [] Anxious [] Often cries [] Exhaustion [] Unable to work [] Unable to attend presybeterian [] Unable to walk/stand [] Unable to read [] Unable to drive [] Unable to eat/drink [] Unable to sleep [] Unable to be with family [] Patient intubated [] Other: Summary Pt In the process of being discharged. Did not indicate any current needs. Time spent with patient 5m
--- NOTE | 2020-05-23 13:36 | PM.DCS ---
Discharge Providers Date of Admission: 05/21/20 03:42 Date of Discharge: May 23, 2020 Attending Provider at Admission: Tian Murdock MD Attending Provider at Discharge: Armando Abreu MD Primary Care Provider: KATRINA Cash Diagnoses at Discharge Discharge Diagnosis (1) Chronic hyponatremia: Status: Acute (2) Migraine: Status: Acute Qualifiers: Intractability: not intractable Migraine type: without aura Status migrainosus presence: without status migrainosus Qualified Code(s): G43.009 - Migraine without aura, not intractable, without status migrainosus (3) Hypoglycemia: Status: Acute Reason for Visit Reason for Visit: FEELING WORSE THAN D/C EARLIER Hospital Course Hospital Course Patient with multiple underlying comorbidities presented not feeling well after recent discharge. Patient was admitted and was further evaluated with CT scan of the chest showing no evidence of pneumonia. She was noted to have low TSH and her levothyroxine was decreased in dose to 50 mcg daily. Overall patient gradually improved and this morning reports feeling much better. She wants to go home. She ambulates with a walker without difficulty. Her white blood cell count normalized. Patient showed no evidence of infectious process and was not treated with antibiotic. Patient's home medications will be continued except as mentioned and Remeron will be decreased to 15 mg at bedtime to decrease anticholinergic effect. Patient this morning denies shortness of breath or chest pain. She is confused and disoriented at her baseline. Physical Exam Narrative: EXAM NARRATIVE: Lungs clear and heart is regular. No lower extremity edema. Abdomen is soft and nontender with positive bowel sounds. Discharge Data Data Completed and Pending: Completed Studies During Hospitalization Category Date Time Status CT chest wo con 7 1250 Routine Cat Scan 05/22/20 13:50 Completed XR chest 1V eduardo ble [id number] Urgent Exams 05/20/20 22:16 Completed Pending at discharge Category Date Time Status Complete Blood Co unt w/Auto AM LABS Lab 05/24/20 04:00 Ordered Comprehensive Met abolic Panel AM LA BS Lab 05/24/20 04:00 Ordered Magnesium AM LABS Lab 05/24/20 04:00 Ordered Phosphorus AM LAB S Lab 05/24/20 04:00 Ordered Labs from last 24 hours 05/23/20 05/23/20 05/23/20 10:19 06:27 05:29 WBC RBC Hgb Hct MCV MCH MCHC RDW Plt Count MPV Neut % (Auto) Lymph % (Auto) Greenlee % (Auto) Eos % (Auto) Baso % (Auto) Neut # (Auto) Lymph # (Auto) Greenlee # (Auto) Eos # (Auto) Baso # (Auto) Nucleated RBC % (a uto) Nucleated RBCs # Sodium 135 L Potassium 3.5 Chloride 96 L Carbon Dioxide 30 H Anion Gap 12.5 BUN 4 L Creatinine 0.5 GFR Calculation 123.4 Glucose 229 H POC Glucose 239 H 246 H Calculated Osmolal ity 284 L Calcium 7.6 L Phosphorus 2.9 Magnesium 1.6 L Total Bilirubin 0.2 AST 16 ALT 14 Alkaline Phosphata se 84 Total Protein 5.5 L Albumin 2.8 L Globulin 2.7 05/23/20 05/22/20 05/22/20 05:29 20:48 15:38 WBC 9.6 RBC 3.49 L Hgb 9.4 L Hct 30.4 L MCV 87.1 D MCH 26.9 L MCHC 30.9 D RDW 21.6 H Plt Count 420 H MPV 9.1 Neut % (Auto) 65.1 Lymph % (Auto) 24.9 Greenlee % (Auto) 8.6 Eos % (Auto) 0.5 Baso % (Auto) 0.3 Neut # (Auto) 6.23 Lymph # (Auto) 2.4 Greenlee # (Auto) 0.8 Eos # (Auto) 0.1 Baso # (Auto) 0.0 Nucleated RBC % (a uto) 0 Nucleated RBCs # 0.0 Sodium Potassium Chloride Carbon Dioxide Anion Gap BUN Creatinine GFR Calculation Glucose POC Glucose 135 H 226 H Calculated Osmolal ity Calcium Phosphorus Magnesium Total Bilirubin AST ALT Alkaline Phosphata se Total Protein Albumin Globulin Vitals: Last Vital Signs Temp 98.3 F 05/23/20 11:04 Pulse 103 H 05/23/20 11:04 Resp 18 05/23/20 11:04 BP 128/80 05/23/20 11:04 Pulse Ox 95 05/23/20 11:04 Discharge Plan Discharge Patient Disposition: Home Condition: Stable Prescriptions: New acetaminophen 325 mg Tablet 650 mg PO Q8H PRN (Reason: Pain) Qty: 60 RF: 0 levothyroxine 50 mcg Tablet 50 mcg PO DAILY@0800 Qty: 30 RF: 0 Continued atorvastatin 80 mg Tablet 80 mg PO BEDTIME@20 RF: 0 pantoprazole 40 mg Tablet,Delayed Release (Dr/Ec) 40 mg PO DAILY@09 RF: 0 venlafaxine 150 mg capsule,extended release 24hr 150 mg PO DAILY@09 RF: 0 metformin 1,000 mg Tablet 1,000 mg PO BID@,20 RF: 0 glimepiride 4 mg tablet 4 mg PO DAILY@09 RF: 0 Lantus U-100 Insulin 100 unit/mL Solution 14 unit SUBCUT QAM RF: 0 insulin aspart U-100 [Novolog Flexpen U-100 Insulin] 100 unit/mL (3 mL) Insulin Pen See Rx Instructions .ROUTE .COMPLEX RF: 0 aspirin [Aspir-81] 81 mg Tablet,Delayed Release (Dr/Ec) 81 mg PO DAILY@ RF: 0 sodium chloride 1 gram tablet 1 g PO BID@, RF: 0 hydralazine 25 mg tablet 25 mg PO BID@, RF: 0 clopidogrel 75 mg tablet 75 mg PO DAILY@ RF: 0 metoprolol tartrate 50 mg tablet 50 mg PO BID@, RF: 0 fludrocortisone 0.1 mg tablet 0.1 mg PO DAILY@ RF: 0 Zofran 8 mg Tablet 8 mg PO TID PRN (Reason: Nausea) RF: 0 prednisone 5 mg Tablet 5 mg PO DAILY@09 RF: 0 loperamide 2 mg Tablet 2 - 4 mg PO PRN RF: 0 Tylenol Extra Strength 500 mg Tablet 1,000 mg PO Q4H PRN (Reason: Pain) RF: 0 Vicks NyQuil Cold/Flu Liquicap 6.25-15-325 mg Capsule 1 cap PO PRN RF: 0 Changed mirtazapine 30 mg Tablet 15 mg PO DAILY@20 Qty: 0 RF: 0 Discontinued levothyroxine 75 mcg Tablet 75 mcg PO DAILY@09 RF: 0 ibuprofen 200 mg Tablet 800 mg PO BID PRN (Reason: Pain) RF: 0 Discharge Orders: Discharge Order (Routine); Ordered 05/23/20 Ordered By: Armando Abreu Referrals: Thu Flores FNP [Primary Care Provider] - 4-7 days Discharge Diet: Advance as tolerated Discharge Activity: Increase activity as tolerated Activity Restrictions/Additional Instructions: Please call your doctor or present to emergency department if your condition worsens or you develop diarrhea, lightheadedness, fatigue or see blood in your stool or black stool. Discharge Attestations Time Spent in Discharge Care*: greater than 30 min Status at Discharge: Cognitive status at discharge: cognitively intact, Behavioral status at discharge: cooperative, Quality Metrics Clinical Quality Measures During this hospital stay, did patient experience: None Coding Level of Care Code Acute Glue Machine Operator for Navid Fwd Diagnoses Chronic hyponatremia E87.1 Migraine G43.009 Intractability: not intractable Migraine type: without aura Status migrainosus presence: without status migrainosus Hypoglycemia E16.2
== END 2020-05-23 16:18 | disposition home or self-care (01) ==
LOC: ER 05-21 01:36 → MEDSURG 05-21 07:17
PROVIDERS: Family Medicine; Admitting Provider Internal Medicine; Emergency Provider Physician Assistant; PCP Nurse Practitioner; Visit Provider Internal Medicine
DX: E87.1 Hypo-osmolality and hyponatremia (principal); G43.009 Migraine without aura, not intractable, without status migrainosus; E03.9 Hypothyroidism, unspecified; E83.42 Hypomagnesemia; E11.649 Type 2 diabetes mellitus with hypoglycemia without coma; Z79.4 Long term (current) use of insulin; I25.10 Atherosclerotic heart disease of native coronary artery without angina pectoris; Z79.82 Long term (current) use of aspirin; Z79.02 Long term (current) use of antithrombotics/antiplatelets; E11.22 Type 2 diabetes mellitus with diabetic chronic kidney disease; I13.0 Hypertensive heart and chronic kidney disease with heart failure and stage 1 through stage 4 chronic kidney disease, or unspecified chronic kidney disease; N18.2 Chronic kidney disease, stage 2 (mild); I50.30 Unspecified diastolic (congestive) heart failure; E78.5 Hyperlipidemia, unspecified; E66.01 Morbid (severe) obesity due to excess calories; Z68.28 Body mass index [BMI] 28.0-28.9, adult; F17.290 Nicotine dependence, other tobacco product, uncomplicated
CPT/HCPCS: 36415; 36416; 36592; 51702; 51798; 71045; 71250; 80048; 80053; 82962; 83735; 84100; 84295; 84443; 85025; 92610; 96372; 97161; C1751; G0378; J1650; J1720; J1815 ×2; J2270; J3475; J3480; J3490; J7030

== ENCOUNTER → 2020-05-25 07:47 | Outpatient (BNVA) | payer OTHER, MEDICARE, SELFPAY | PROVIDERS: PCP Nurse Practitioner; Visit Provider Nurse Practitioner | DX: F43.12 Post-traumatic stress disorder, chronic (principal); F33.2 Major depressive disorder, recurrent severe without psychotic features | CPT/HCPCS: 99214 ==

== ENCOUNTER 2020-05-25 22:01 | Emergency (ER) | payer OTHER, MEDICARE, SELFPAY ==
[2020-05-25 22:04] VITALS: BP 159/90; PULSE 130; RESP 17; TEMP 36.9; O2SAT 95; BMI 27.4
--- NOTE | 2020-05-25 22:13 | ED_ITS ---
HPI - Anxiety General: Chief Complaint: Anxiety Stated Complaint: NERVES Time Seen by Provider: 05/25/20 22:13 Source: patient Mode of arrival: ambulatory Limitations: no limitations History of Present Illness: HPI narrative: Patient comes in today with complaints of anxiety. Patient has diabetes, hyperlipidemia, coronary artery disease, history of hyponatremia, hypothyroidism, and depression with anxiety. Patient was recently in the hospital for hyponatremia. Patient denies any chest pain, any nausea or vomiting, denies diarrhea, reports a mild headache. Patient denies any suicidal or homicidal thought. Review of Systems General: Reports: 10 or more systems reviewed and unremarkable except in HPI and below Psych: Reports: anxiety PFSH ED PFSH: Medical History Anemia C. 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, recurrent severe without psychotic features Morbid obesity Post-traumatic stress disorder, chronic Surgical History H/O esophagogastroduodenoscopy H/O: hysterectomy History of bunionectomy bilateral Hx of cholecystectomy Status post colonoscopy Family History Mother Hypertension Diabetes Father Hypertension Asthma Other CAD (coronary artery disease) Cancer Denies family history of Anesthesia complication Bleeding disorder Social History Smoking and tobacco status: current every day smoker cigars Cigar details: 1 PPD Smoking risk assessment/counseling performed?: No Alcohol intake: former Former alcohol use details: Reportedly has not had any alcohol since June Household members: spouse Housing: Manufactured/Mobile home Marital status: Current occupational status: retired History of recent travel: No Physical Exam Const: COMMON NORMALS: no acute distress and patient oriented x3 GENERAL APPEARANCE: cooperative HENMT: COMMON NORMALS: normocephalic and Normal external nose present HEAD & SCALP: normal to inspection and normocephalic NOSE: Normal external nose present MOUTH: Normal oral and palatal mucosa present THROAT: posterior oropharynx normal Eye: GENERAL EYE: appearance normal, both eyes and all related structures Neck/C-Spine: COMMON NORMALS: full ROM Lymph: LYMPHATIC: no lymphadenopathy noted Chest: COMMONS NORMALS: normal inspection of the chest Resp: COMMON NORMALS: normal respiratory effort EFFORT & INSPECTION: Yes able to speak in complete sentences Cardio: COMMON NORMALS: regular rhythm RATE: tachycardic RHYTHM: regular rhythm GI: COMMON NORMALS: non-tender : COMMON NORMALS: Yes no CVA tenderness BLADDER/KIDNEY EXAM: Yes no CVA tenderness Back/Pelvis: COMMON NORMALS: no CVA tenderness and thoracic and lumbar spine normal to inspection Extremity: COMMON NORMALS: normal to inspection Neuro: COMMON NORMALS: patient oriented x3 and moves all extremities Psych: COMMON NORMALS: mental status grossly normal and cooperative Skin: COMMON NORMALS: no rashes or lesions noted GENERAL SKIN EXAM: no rashes or lesions noted Course Vital Signs: Vital signs: Vital Signs Temperature 98.5 F 05/25/20 22:04 Pulse Rate 116 H 05/25/20 23:30 Respiratory Rate 16 05/25/20 23:30 Blood Pressure 164/97 05/25/20 23:30 Pulse Oximetry 93 05/25/20 23:30 MDM - Anxiety MDM Narrative: Medical decision making narrative: 65-year-old female comes in today for complaints of anxiety and a headache. Patient is recently been released from the hospital 2 days ago. Patient appears chronically ill. Exam notes some tachycardia with normal heart tones. Skin is warm and dry. Abdomen soft nontender. No significant lower extremity edema is noted. Differential diagnosis includes but not limited to anxiety related to depression, malingering, hypoglycemia, hyponatremia. Repeat labs noted the sodium and come down to 130, remainder labs were not significantly changed from previous labs 2 days ago. Patient had been given 1 mg of lorazepam for anxiety with some relief and a 5 mg hydrocodone for complaints of headache. Patient reported improvement in her headache but anxiety persisted we repeated the dose of lorazepam. Patient and requested to go home and will follow up with primary care for further treatment. EKG Data^: EKG 1: Attestation: I personally reviewed and interpreted this EKG as follows: (2229, EKG shows sinus tachycardia, no ST elevation, no ectopy, no available EKG was available at this time for comparison.) Lab Data: Labs: Lab Results 05/25/20 05/25/20 Range/Units 22:25 23:10 Sodium 130 L (136-145) mmol/L Potassium 3.6 (3.5-5.1) mmol/L Chloride 90 L (98-107) mmol/L Carbon Dioxide 30 H (22-29) mmol/L Anion Gap 13.6 (5-19) BUN 8 (8-23) mg/dL Creatinine 0.6 (0.5-0.9) mg/dL GFR Calculation 100.0 (90-130) mL/min Glucose 161 H (65-115) mg/dL POC Glucose 201 H (70-110) mg/dL Calculated Osmolal ity 272 L (285-295) mOsm/k g Calcium 8.3 L (8.5-10.5) mg/dL Discharge Plan Discharge Patient Disposition: Home Clinical Impression: Acute anxiety Condition: Stable Prescriptions: No Action mirtazapine 30 mg tablet 30 mg PO DAILY@20 Qty: 30 RF: 0 venlafaxine 150 mg capsule,extended release 24hr 150 mg PO DAILY@09 Qty: 30 RF: 0 atorvastatin 80 mg Tablet 80 mg PO BEDTIME@20 RF: 0 pantoprazole 40 mg Tablet,Delayed Release (Dr/Ec) 40 mg PO DAILY@09 RF: 0 metformin 1,000 mg Tablet 1,000 mg PO BID@, RF: 0 glimepiride 4 mg tablet 4 mg PO DAILY@ RF: 0 Lantus U-100 Insulin 100 unit/mL Solution 14 unit SUBCUT QAM RF: 0 insulin aspart U-100 [Novolog Flexpen U-100 Insulin] 100 unit/mL (3 mL) Insulin Pen See Rx Instructions .ROUTE .COMPLEX RF: 0 aspirin 81 mg Tablet,Delayed Release (Dr/Ec) 81 mg PO DAILY@09 RF: 0 sodium chloride 1 gram tablet 1 g PO BID@, RF: 0 hydralazine 25 mg tablet 25 mg PO BID@, RF: 0 clopidogrel 75 mg tablet 75 mg PO DAILY@ RF: 0 metoprolol tartrate 50 mg tablet 50 mg PO BID@, RF: 0 fludrocortisone 0.1 mg tablet 0.1 mg PO DAILY@09 RF: 0 ondansetron HCl 8 mg Tablet 8 mg PO TID PRN (Reason: Nausea) RF: 0 prednisone 5 mg Tablet 5 mg PO DAILY@09 RF: 0 loperamide 2 mg Tablet 2 - 4 mg PO PRN RF: 0 Tylenol Extra Strength 500 mg Tablet 1,000 mg PO Q4H PRN (Reason: Pain) RF: 0 Vicks NyQuil Cold/Flu Liquicap 6.25-15-325 mg Capsule 1 cap PO PRN RF: 0 acetaminophen 325 mg Tablet 650 mg PO Q8H PRN (Reason: Pain) Qty: 60 RF: 0 levothyroxine 50 mcg Tablet 50 mcg PO DAILY@0800 Qty: 30 RF: 0 Discharge Orders: Discharge ED (Routine); Ordered 05/25/20 Ordered By: Jeremi Dai Referrals: Thu Flores FNP [Primary Care Provider] - Discharge Diet: Usual diet Discharge Activity: Increase activity as tolerated Patient Instructions: Anxiety (ED), Opioid Safety Activity Restrictions/Additional Instructions: Continue with routine medications. Follow-up with primary care on Thursday. Return to the emergency department for new concerns. Coding Level of Care Code ED Fender Mechanic Apprentice for Navid Fwpaty Exam Comprehensive
--- NOTE | 2020-05-25 22:19 | ECG_ITS ---
[facility] Test Date: 2020-05-25 Pat Name: Ingris Mendosa Department: Room: Gender: Female Television Camera Operator: : 1955 Requested By: Jeremi Rasheed Order Number: [id number] Danny MD: MILLICENT KIM Measurements Intervals [place] Rate: 122 P: 62 [place]: 129 QRS: 33 QRSD: 82 T: 66 QT: 319 QTc: 456 Interpretive Statements SINUS TACHYCARDIA MINIMAL ST DEPRESSION [0.025+ mV ST DEPRESSION] ABNORMAL RHYTHM ECG Compared to ECG 03/15/2020 20:31:22 ST (T wave) deviation now present Sinus rhythm no longer present Electronically Signed On 05-26-2020 18:46:13 CREDIT RATING CHECKER by MILLICENT KIM [id number]
[2020-05-25] MEDS: LORazepam 1 mg Tablet PO (22:25)
[2020-05-25 22:27] VITALS: BP 177/116; PULSE 124; O2SAT 97
[2020-05-25 22:31] LABS: Glucose Point of Care 201 mg/dL (70-110)
[2020-05-25 22:39] VITALS: BP 177/116; PULSE 126; RESP 17; O2SAT 96
[2020-05-25] MEDS: HYDROcodone-acetaminophen 5-325 mg Tablet 1 TAB PO (23:02)
[2020-05-25 23:09] VITALS: BP 164/97; PULSE 115; RESP 16; O2SAT 95
[2020-05-25 23:30] VITALS: BP 164/97; PULSE 116; RESP 16; O2SAT 93
[2020-05-25 23:43] LABS: Blood Urea Nitrogen 8 mg/dL (8-23); Calcium 8.3 mg/dL (8.5-10.5); Carbon Dioxide 30 mmol/L (22-29); Chloride 90 mmol/L (98-107); Glucose 161 mg/dL (65-115); Osmolality Calculated 272 mOsm/kg (285-295); Sodium 130 mmol/L (136-145)
[2020-05-25 23:46] LABS: Anion Gap 13.6 (5-19); Potassium 3.6 mmol/L (3.5-5.1)
[2020-05-26] MEDS: LORazepam 1 mg Tablet PO (00:02)
[2020-05-26 00:05] VITALS: BP 150/106; PULSE 115; RESP 15; TEMP 36.9; O2SAT 95
== END 2020-05-26 00:07 | disposition home or self-care (01) ==
PROVIDERS: Emergency Provider Nurse Practitioner Family; PCP Nurse Practitioner
DX: F41.9 Anxiety disorder, unspecified (principal); Z79.02 Long term (current) use of antithrombotics/antiplatelets; Z79.82 Long term (current) use of aspirin; Z79.4 Long term (current) use of insulin; I13.0 Hypertensive heart and chronic kidney disease with heart failure and stage 1 through stage 4 chronic kidney disease, or unspecified chronic kidney disease; E11.22 Type 2 diabetes mellitus with diabetic chronic kidney disease; N18.2 Chronic kidney disease, stage 2 (mild); I50.32 Chronic diastolic (congestive) heart failure; E78.5 Hyperlipidemia, unspecified; F17.210 Nicotine dependence, cigarettes, uncomplicated
CPT/HCPCS: 36416; 80048; 82962; 93005; 99283

== ENCOUNTER 2020-05-26 20:25 | Emergency (ER) | payer OTHER, MEDICARE, SELFPAY ==
[2020-05-26 21:00] VITALS: BP 163/86; PULSE 105; RESP 14; TEMP 36.4; O2SAT 96; BMI 27.4
[2020-05-26 21:38] VITALS: BP 184/112; PULSE 99; RESP 18; O2SAT 97
[2020-05-26 22:18] VITALS: BP 166/100; PULSE 100; RESP 18; O2SAT 96
[2020-05-26 22:40] LABS: Add Urine Microscopic? NO
[2020-05-26 22:54] LABS: Bilirubin Urine Neg (Negative); Blood Urine Neg (Negative); Glucose Urine UA Norm (Normal); Ketones Urine Negative (Negative); Leukocyte Esterase Urine Negative (Negative); Nitrate Urine Negative (Negative); Protein Urine Neg (Negative); Specific Gravity, Urine 1.005 (1.005-1.030); Urine Appearance Clear (CLEAR); Urine Color Yellow (Yellow); Urobilinogen Urine Norm (Negative); pH Urine 7 (5-7)
[2020-05-26] MEDS: LORazepam 2 mg/mL INJ 1 mL 1.5 MG IM (23:23)
[2020-05-26] MEDS: ziprasidone hcl 20 mg Capsule PO (23:24)
[2020-05-26 23:26] VITALS: BP 149/108; PULSE 102; RESP 18; O2SAT 96
[2020-05-26 23:40] LABS: Basophils # 0.1 10^3/uL (0.0-0.1); Basophils % 0.4 %; Eosinophils # 0.1 10^3/uL (0.0-0.8); Eosinophils % 0.9 %; Hematocrit 30.8 % (37.0-47.0); Hemoglobin 9.8 g/dL (11.5-15.3); Lymphocytes # 3.1 10^3/uL (0.8-4.8); Lymphocytes % 26.1 %; Mean Corpuscular HGB Conc 31.8 g/dL (30.0-36.0); Mean Corpuscular Hemoglobin 26.6 pg (28.0-34.0); Mean Corpuscular Volume 83.5 fL (81-99); Mean Platelet Volume 9.3 fL (7.4-10.4); Monocytes # 1.1 10^3/uL (0.2-0.9); Monocytes % 9.5 %; Neutrophils # 7.33 10^3/uL (1.8-7.7); Neutrophils % 62.6 %; Nucleated Red Blood Cells % 0 %; Platelet Count 444 10^3/cmm (130-400); Red Blood Count 3.69 10^6/uL (4.1-5.3); White Blood Count 11.7 10^3/uL (4.0-10.0)
[2020-05-26 23:54] LABS: Alanine Aminotransferase 12 U/L (0-33); Albumin Level 3.3 g/dL (3.5-5.2); Alkaline Phosphatase 77 IU/L (35-105); Anion Gap 12.2 (5-19); Aspartate Amino Transferase 11 U/L (0-32); Blood Urea Nitrogen 5 mg/dL (8-23); Calcium 8.4 mg/dL (8.5-10.5); Carbon Dioxide 32 mmol/L (22-29); Chloride 88 mmol/L (98-107); Globulin 2.8 g/dL (1.3-4.6); Glucose 128 mg/dL (65-115); Osmolality Calculated 267 mOsm/kg (285-295); Potassium 3.2 mmol/L (3.5-5.1); Sodium 129 mmol/L (136-145); Total Bilirubin 0.2 mg/dL (0.15-1.2); Total Protein 6.1 g/dL (6.6-8.7)
--- NOTE | 2020-05-27 00:06 | W.ED.ANXIETY ---
HPI - Anxiety General: Chief Complaint: Anxiety Stated Complaint: anxiety Time Seen by Provider: 05/26/20 21:49 History of Present Illness: HPI narrative: 65-year-old lady here for the fourth time in a week or so. She presents anxiety symptoms. She states that she has not slept in the last 2 nights because she is feeling very anxious. He says I want to crawl out of my skin . She denies any suicidal ideation she feels safe at home. She was given lorazepam pill last night which helped some in the ER, but still was unable to sleep. She has a history of hyponatremia which has required inpatient admission recently. complaint: anxiety Onset (ago): hour(s) Symptoms: dyspnea, palpitations and sense of impending doom Severity: moderate Quality: constant Place: home History of similar episodes: Yes Provoking factors: none known Relieving factors: medication Exacerbating factors: nothing Associated symptoms: Reports headache(s) and short of breath; Deny chest pain, diaphoresis, fever(s) or nausea Review of Systems Const: Denies: fever(s) or diaphoresis Card: Denies: chest pain GI: Denies: nausea Neuro: Reports: headache(s) PFS ED PFSH: Medical History Anemia C. 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, recurrent severe without psychotic features Morbid obesity Post-traumatic stress disorder, chronic Surgical History H/O esophagogastroduodenoscopy H/O: hysterectomy History of bunionectomy bilateral Hx of cholecystectomy Status post colonoscopy Family History Mother Hypertension Diabetes Father Hypertension Asthma Other CAD (coronary artery disease) Cancer Denies family history of Anesthesia complication Bleeding disorder Social History Smoking and tobacco status: current every day smoker cigars Cigar details: 1 PPD Smoking risk assessment/counseling performed?: No Alcohol intake: former Former alcohol use details: Reportedly has not had any alcohol since June Household members: spouse Housing: Manufactured/Mobile home Marital status: Current occupational status: retired History of recent travel: No Physical Exam Const: COMMON NORMALS: alert GENERAL APPEARANCE: cooperative and anxious; not ill appearing Eye: COMMON NORMALS: Equal, round and reactive pupils present and EOMs intact bilaterally PUPIL: Yes Equal, round and reactive pupils present Chest: COMMONS NORMALS: normal inspection of the chest Resp: COMMON NORMALS: normal respiratory effort, No retractions and No use of accessory muscles Cardio: COMMON NORMALS: regular rate and regular rhythm RATE: regular rate RHYTHM: regular rhythm GI: COMMON NORMALS: Normal to inspection, nondistended, normoactive bowel sounds present Neuro: SENSORIUM/ORIENTATION: Yes alert Psych: COMMON NORMALS: mental status grossly normal, Normal thought process present, speech normal, denies hallucinations, denies homicidal ideation and denies suicidal ideation APPEARANCE: Yes grossly normal ATTITUDE: Yes engaged ACTIVITY/MOTOR BEHAVIOR: Yes appropriate eye contact SPEECH: Yes normal speech MOOD & AFFECT: Yes anxious THOUGHT PROCESS: Normal thought process present Course Vital Signs: Vital signs: Vital Signs Temperature 97.5 F L 05/26/20 21:00 Pulse Rate 102 H 05/26/20 23:26 Respiratory Rate 18 05/26/20 23:26 Blood Pressure 149/108 05/26/20 23:26 Pulse Oximetry 96 05/26/20 23:26 MDM - Anxiety Lab Data: Labs: Lab Results 05/26/20 05/26/20 05/26/20 Range/Units 22:35 23:18 23:18 WBC 11.7 H (4.0-10.0) 10^3/ uL RBC 3.69 L (4.1-5.3) 10^6/u L Hgb 9.8 L (11.5-15.3) g/dL Hct 30.8 L (37.0-47.0) % MCV 83.5 (81-99) fL MCH 26.6 L (28.0-34.0) pg MCHC 31.8 (30.0-36.0) g/dL RDW 21.0 H (12.1-15.1) % Plt Count 444 H (130-400) 10^3/c mm MPV 9.3 (7.4-10.4) fL Neut % (Auto) 62.6 % Lymph % (Auto) 26.1 % Randall % (Auto) 9.5 % Eos % (Auto) 0.9 % Baso % (Auto) 0.4 % Neut # (Auto) 7.33 (1.8-7.7) 10^3/u L Lymph # (Auto) 3.1 (0.8-4.8) 10^3/u L Randall # (Auto) 1.1 H (0.2-0.9) 10^3/u L Eos # (Auto) 0.1 (0.0-0.8) 10^3/u L Baso # (Auto) 0.1 (0.0-0.1) 10^3/u L Nucleated RBC % (a uto) 0 % Nucleated RBCs # 0.0 /100WBC Sodium 129 L (136-145) mmol/L Potassium 3.2 L (3.5-5.1) mmol/L Chloride 88 L (98-107) mmol/L Carbon Dioxide 32 H (22-29) mmol/L Anion Gap 12.2 (5-19) BUN 5 L (8-23) mg/dL Creatinine 0.6 (0.5-0.9) mg/dL GFR Calculation 100.0 (90-130) mL/min Glucose 128 H (65-115) mg/dL Calculated Osmolal ity 267 L (285-295) mOsm/k g Calcium 8.4 L (8.5-10.5) mg/dL Total Bilirubin 0.2 (0.15-1.2) mg/dL AST 11 (0-32) U/L ALT 12 (0-33) U/L Alkaline Phosphata se 77 (35-105) IU/L Total Protein 6.1 L (6.6-8.7) g/dL Albumin 3.3 L (3.5-5.2) g/dL Globulin 2.8 (1.3-4.6) g/dL Urine Color Yellow (Yellow) Urine Appearance Clear (CLEAR) Urine pH 7 (5-7) Ur Specific Gravit y 1.005 (1.005-1.030) Urine Protein Neg (Negative) Urine Glucose (UA) Norm (Normal) Urine Ketones Negative (Negative) Urine Blood Neg (Negative) Urine Nitrate Negative (Negative) Urine Bilirubin Neg (Negative) Urine Urobilinogen Norm (Negative) mg/dL Ur Leukocyte Kiara ase Negative (Negative) Discharge Plan Discharge Patient Disposition: Home Clinical Impression: Acute anxiety Condition: Stable Prescriptions: New Xanax 1 mg tablet 1 mg PO BID PRN (Reason: anxiety) Qty: 14 RF: 0 No Action mirtazapine 30 mg tablet 30 mg PO DAILY@20 Qty: 30 RF: 0 venlafaxine 150 mg capsule,extended release 24hr 150 mg PO DAILY@09 Qty: 30 RF: 0 atorvastatin 80 mg Tablet 80 mg PO BEDTIME@20 RF: 0 pantoprazole 40 mg Tablet,Delayed Release (Dr/Ec) 40 mg PO DAILY@09 RF: 0 metformin 1,000 mg Tablet 1,000 mg PO BID@, RF: 0 glimepiride 4 mg tablet 4 mg PO DAILY@09 RF: 0 Lantus U-100 Insulin 100 unit/mL Solution 14 unit SUBCUT QAM RF: 0 insulin aspart U-100 [Novolog Flexpen U-100 Insulin] 100 unit/mL (3 mL) Insulin Pen See Rx Instructions .ROUTE .COMPLEX RF: 0 aspirin 81 mg Tablet,Delayed Release (Dr/Ec) 81 mg PO DAILY@09 RF: 0 sodium chloride 1 gram tablet 1 g PO BID@,20 RF: 0 hydralazine 25 mg tablet 25 mg PO BID@,20 RF: 0 clopidogrel 75 mg tablet 75 mg PO DAILY@09 RF: 0 metoprolol tartrate 50 mg tablet 50 mg PO BID@,20 RF: 0 fludrocortisone 0.1 mg tablet 0.1 mg PO DAILY@09 RF: 0 ondansetron HCl 8 mg Tablet 8 mg PO TID PRN (Reason: Nausea) RF: 0 prednisone 5 mg Tablet 5 mg PO DAILY@09 RF: 0 loperamide 2 mg Tablet 2 - 4 mg PO PRN RF: 0 Tylenol Extra Strength 500 mg Tablet 1,000 mg PO Q4H PRN (Reason: Pain) RF: 0 Vicks NyQuil Cold/Flu Liquicap 6.25-15-325 mg Capsule 1 cap PO PRN RF: 0 acetaminophen 325 mg Tablet 650 mg PO Q8H PRN (Reason: Pain) Qty: 60 RF: 0 levothyroxine 50 mcg Tablet 50 mcg PO DAILY@0800 Qty: 30 RF: 0 Discharge Orders: Discharge ED (Routine); Ordered 05/27/20 Ordered By: Chema Acosta Referrals: Thu Flores FNP [Primary Care Provider] - Discharge Diet: Usual diet Discharge Activity: Increase activity as tolerated Patient Instructions: Anxiety (ED) Activity Restrictions/Additional Instructions: You have received a prescription for as needed medication for anxiety. Follow-up with your family doctor regarding your anxiety. Because of the nature of this medication, you will likely not receive any more prescription from the emergency department for these medications. Return for worsening mental status, other concerning symptoms. Coding Level of Care Code ED Desktop Specialist for Navid Simons
[2020-05-27 00:11] VITALS: PULSE 82; RESP 18; O2SAT 96
== END 2020-05-27 00:12 | disposition home or self-care (01) ==
PROVIDERS: Emergency Provider Emergency Medicine; PCP Nurse Practitioner
DX: F41.9 Anxiety disorder, unspecified (principal); G89.29 Other chronic pain; M54.9 Dorsalgia, unspecified; I13.0 Hypertensive heart and chronic kidney disease with heart failure and stage 1 through stage 4 chronic kidney disease, or unspecified chronic kidney disease; I50.32 Chronic diastolic (congestive) heart failure; N18.2 Chronic kidney disease, stage 2 (mild); E11.22 Type 2 diabetes mellitus with diabetic chronic kidney disease; Z79.4 Long term (current) use of insulin; F17.290 Nicotine dependence, other tobacco product, uncomplicated
CPT/HCPCS: 80053; 81003; 85025; 96372; 99283; J2060

== ENCOUNTER 2020-06-04 19:00 | Emergency (ER) | payer OTHER, MEDICARE, SELFPAY ==
[2020-06-04 19:31] VITALS: BP 109/67; PULSE 109; RESP 18; TEMP 36.8; O2SAT 110; BMI 29.2
--- NOTE | 2020-06-04 21:07 | ECG_ITS ---
[facility] Test Date: 2020-06-04 Pat Name: Ingris Mendosa Department: Room: Gender: Female Gsa Coordinator: : 1955 Requested By: Ramón Jacobson Order Number: [id number] Danny MD: Quinton Vital M.D. Measurements Intervals [place] Rate: 104 P: 49 [place]: 131 QRS: 29 QRSD: 85 T: 54 QT: 366 QTc: 483 Interpretive Statements SINUS TACHYCARDIA POSSIBLE LEFT ATRIAL ENLARGEMENT [-0.1mV P WAVE IN V1/V2] MINIMAL ST DEPRESSION [0.025+ mV ST DEPRESSION] ABNORMAL RHYTHM ECG Compared to ECG 05/25/2020 22:23:00 No significant changes Electronically Signed On 06-05-2020 0:03:08 CDT by Quinton Vital M.D. [id number]
--- NOTE | 2020-06-04 21:12 | W.ED.NAVMDI ---
HPI - Nausea/Vomiting/Diarrhea General: Chief complaint: Nausea/Vomiting/Diarrhea Stated complaint: neck pain due to injury Time Seen by Provider: 06/04/20 21:09 Source: patient and old records reviewed History of Present Illness: HPI Narrative: This patient presents to the emergency department complain nausea and vomiting for the past 2 days. Patient states when she vomits exacerbates the pain in her neck. Patient recently had a fall off the toilet and has a fracture in her neck she believes C2-C3 area. Patient is wearing a soft cervical collar. Previously provided. The medical evaluation treat as needed MD elicited complaint: nausea and vomiting Associated nausea: Yes Associated symtoms: Reports nausea; Denies anxiety, change in vision, chest pain, dysuria, fatigue, headache(s) or palpitations Review of Systems General: Reports: 10 or more systems reviewed and unremarkable except in HPI and below Const: Denies: fever(s), chills, body aches or fatigue Eyes: Denies: change in vision or blurry vision ENMT: Denies: throat pain, hoarseness or mouth pain Card: Denies: chest pain, palpitations, irregular heart rhythm, edema, swelling of feet/ankles or lightheadedness Resp: Denies: dyspnea, productive cough, non-productive cough, wheezing or pain on inspiration GI: Reports: nausea and vomiting; Denies: abdominal pain : Reports: flank pain; Denies: difficulty voiding, dysuria, urinary frequency, urinary urgency or urinary hesitancy Musc: Denies: neck pain, back pain, extremity pain, extremity swelling, joint pain, joint swelling, joint redness, joint warmth or limited range of motion Skin/Breast: Denies: rash, pruritus, erythema or skin tenderness Neuro: Denies: headache(s), numbness in extremities or weakness in extremities Psych: Denies: anxiety or depression PFSH ED PFSH: Medical History Anemia C. 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, recurrent severe without psychotic features Morbid obesity Post-traumatic stress disorder, chronic Surgical History H/O esophagogastroduodenoscopy H/O: hysterectomy History of bunionectomy bilateral Hx of cholecystectomy Status post colonoscopy Family History Mother Hypertension Diabetes Father Hypertension Asthma Other CAD (coronary artery disease) Cancer Denies family history of Anesthesia complication Bleeding disorder Social History Smoking and tobacco status: current every day smoker cigars Cigar details: 1 PPD Smoking risk assessment/counseling performed?: No Alcohol intake: former Former alcohol use details: Reportedly has not had any alcohol since June Household members: spouse Housing: Manufactured/Mobile home Marital status: Current occupational status: retired History of recent travel: No Physical Exam Const: COMMON NORMALS: no acute distress, average body habitus, patient oriented x3, no limitations, healthy appearing, alert and well nourished HENMT: COMMON NORMALS: normocephalic, atraumatic, external ears normal, EAC's normal, TM's normal bilaterally, Normal external nose present and Normal nasal mucous membranes and turbinates present HEAD & SCALP: normocephalic and atraumatic NOSE: Normal external nose present and Normal nasal mucous membranes and turbinates present EXTERNAL EAR: Yes external ears normal EXTERNAL AUDITORY CANAL: EAC's normal TYMPANIC MEMBRANE: TM's normal bilaterally Neck/C-Spine: COMMON NORMALS: no lymphadenopathy, supple, no meningeal signs, no JVD, Thyroid normal and No carotid bruits THYROID: Thyroid normal OTHER: Continue cervical pain from previous fracture per patient patient is in a c-collar Chest: COMMONS NORMALS: normal inspection of the chest, normal palpation of entire chest wall, normal inspection of the breasts and normal palpation of the breasts Breast/axilla inspection: Yes normal inspection of the breasts BREAST/AXILLA PALPATION: Yes normal palpation of the breasts Resp: COMMON NORMALS: normal respiratory effort, No retractions, No use of accessory muscles, clear to auscultation bilaterally and percussion normal AUSCULTATION: clear to auscultation bilaterally PERCUSSION: percussion normal Cardio: COMMON NORMALS: no JVD, regular rate, regular rhythm, S1 normal heart sound present, S2 normal heart sound present, No gallops present (Cardio), No clicks present (Cardio), No murmurs present (Cardio), No rub (Cardio) and Peripheral pulses 2+ throughout RATE: regular rate RHYTHM: regular rhythm HEART SOUNDS: S1 normal heart sound present and S2 normal heart sound present PERIPHERAL PULSES: Peripheral pulses 2+ throughout GI: COMMON NORMALS: Normal to inspection, nondistended, normoactive bowel sounds present, Soft to palpation, non-tender, No hepatosplenomegaly present, no masses and no bruits PALPATION: Yes Soft to palpation and Yes No hepatosplenomegaly present : COMMON NORMALS: Yes no CVA tenderness, Yes normal external appearance, Yes normal appearance of the vagina, Yes normal appearance of the cervix, Yes normal bimanual exam, Yes No adnexal tenderness and Yes no masses BLADDER/KIDNEY EXAM: Yes no CVA tenderness BIMANUAL EXAM - VAGINA & UTERUS: Yes normal bimanual exam Back/Pelvis: COMMON NORMALS: no CVA tenderness, thoracic and lumbar spine normal to inspection, no thoracic nor lumbar tenderness, thoraco-lumbar ROM normal and straight leg raise negative bilaterally Extremity: COMMON NORMALS: normal to inspection, full ROM, capillary refill normal, no joint enlargement, no clubbing, cyanosis or edema, no calf tenderness and no pedal edema Neuro: COMMON NORMALS: patient oriented x3 SENSORIUM/ORIENTATION: Yes alert MENINGEAL SIGNS: Yes no meningeal signs Course Reevaluation(s): Reevaluation #1: Patient states all symptoms resolved. Patient is feeling much improved after Zofran. We did discuss to look with patient about options. She will follow up with her primary care physician discuss any further pain control issues. Patient will be given a prescription for Zofran. Encourage p.o. fluids advance diet as tolerated. Patient states understanding patient be discharged home Time: 23:35 Vital Signs: Vital signs: Vital Signs Temperature 98.2 F 06/04/20 19:31 Pulse Rate 100 06/04/20 22:00 Respiratory Rate 17 06/04/20 22:18 Blood Pressure 121/69 06/04/20 21:30 Pulse Oximetry 97 06/04/20 22:18 MDM - Nausea/Vomiting/Diarrhea Lab Data: Attestation: I reviewed the patient's lab results. Lab results narrative: Hyponatremia but otherwise been negative for any acute evaluation. Labs: Lab Results 06/04/20 06/04/20 06/04/20 Range/Units 22:05 22:05 22:05 WBC 14.5 H (4.0-10.0) 10^3/ uL RBC 4.02 L (4.1-5.3) 10^6/u L Hgb 10.7 L (11.5-15.3) g/dL Hct 33.1 L (37.0-47.0) % MCV 82.3 (81-99) fL MCH 26.6 L (28.0-34.0) pg MCHC 32.3 (30.0-36.0) g/dL RDW 19.5 H (12.1-15.1) % Plt Count 583 H (130-400) 10^3/c mm MPV 9.3 (7.4-10.4) fL Neut % (Auto) 70.2 % Lymph % (Auto) 18.6 % [place] % (Auto) 9.4 % Eos % (Auto) 1.0 % Baso % (Auto) 0.3 % Neut # (Auto) 10.17 H (1.8-7.7) 10^3/u L Lymph # (Auto) 2.7 (0.8-4.8) 10^3/u L [place] # (Auto) 1.4 H (0.2-0.9) 10^3/u L Eos # (Auto) 0.1 (0.0-0.8) 10^3/u L Baso # (Auto) 0.1 (0.0-0.1) 10^3/u L Nucleated RBC % (a uto) 0 % Nucleated RBCs # 0.0 /100WBC Sodium 129 L (136-145) mmol/L Potassium 3.2 L (3.5-5.1) mmol/L Chloride 89 L (98-107) mmol/L Carbon Dioxide 29 (22-29) mmol/L Anion Gap 14.2 (5-19) BUN 12 (8-23) mg/dL Creatinine 0.6 (0.5-0.9) mg/dL GFR Calculation 100.0 (90-130) mL/min Glucose 152 H (65-115) mg/dL Calculated Osmolal ity 271 L (285-295) mOsm/k g Calcium 8.5 (8.5-10.5) mg/dL Total Bilirubin 0.2 (0.15-1.2) mg/dL AST 13 (0-32) U/L ALT 13 (0-33) U/L Alkaline Phosphata se 89 (35-105) IU/L Troponin T Baselin e 12 H (0-10) ng/L Total Protein 6.5 L (6.6-8.7) g/dL Albumin 3.8 (3.5-5.2) g/dL Globulin 2.7 (1.3-4.6) g/dL Lipase 12 L (13-60) U/L Urine Color (Yellow) Urine Appearance (CLEAR) Urine pH (5-7) Ur Specific Gravit y (1.005-1.030) Urine Protein (Negative) Urine Glucose (UA) (Normal) Urine Ketones (Negative) Urine Blood (Negative) Urine Nitrate (Negative) Urine Bilirubin (Negative) Urine Urobilinogen (Negative) mg/dL Ur Leukocyte Kiara ase (Negative) 06/04/20 Range/Units 22:57 WBC (4.0-10.0) 10^3/ uL RBC (4.1-5.3) 10^6/u L Hgb (11.5-15.3) g/dL Hct (37.0-47.0) % MCV (81-99) fL MCH (28.0-34.0) pg MCHC (30.0-36.0) g/dL RDW (12.1-15.1) % Plt Count (130-400) 10^3/c mm MPV (7.4-10.4) fL Neut % (Auto) % Lymph % (Auto) % [place] % (Auto) % Eos % (Auto) % Baso % (Auto) % Neut # (Auto) (1.8-7.7) 10^3/u L Lymph # (Auto) (0.8-4.8) 10^3/u L [place] # (Auto) (0.2-0.9) 10^3/u L Eos # (Auto) (0.0-0.8) 10^3/u L Baso # (Auto) (0.0-0.1) 10^3/u L Nucleated RBC % (a uto) % Nucleated RBCs # /100WBC Sodium (136-145) mmol/L Potassium (3.5-5.1) mmol/L Chloride (98-107) mmol/L Carbon Dioxide (22-29) mmol/L Anion Gap (5-19) BUN (8-23) mg/dL Creatinine (0.5-0.9) mg/dL GFR Calculation (90-130) mL/min Glucose (65-115) mg/dL Calculated Osmolal ity (285-295) mOsm/k g Calcium (8.5-10.5) mg/dL Total Bilirubin (0.15-1.2) mg/dL AST (0-32) U/L ALT (0-33) U/L Alkaline Phosphata se (35-105) IU/L Troponin T Baselin e (0-10) ng/L Total Protein (6.6-8.7) g/dL Albumin (3.5-5.2) g/dL Globulin (1.3-4.6) g/dL Lipase (13-60) U/L Urine Color Yellow (Yellow) Urine Appearance Clear (CLEAR) Urine pH 6.5 (5-7) Ur Specific Gravit y 1.005 (1.005-1.030) Urine Protein Neg (Negative) Urine Glucose (UA) Norm (Normal) Urine Ketones Negative (Negative) Urine Blood Neg (Negative) Urine Nitrate Negative (Negative) Urine Bilirubin Neg (Negative) Urine Urobilinogen Norm (Negative) mg/dL Ur Leukocyte Kiara ase Negative (Negative) EKG Data^: EKG 1: Attestation: I personally reviewed and interpreted this EKG as follows: EKG interpretation date: 06/04/20 EKG interpretation time: 21:17 Prior EKG tracings: available for review Interpretation: Sinus tachycardia heart rate 104. Nonspecific EKG changes. Discharge Plan Discharge Patient Disposition: Home Clinical Impression: Mild nausea and vomiting, Dehydration, mild, Neck pain Condition: Stable Prescriptions: No Action mirtazapine 30 mg tablet 30 mg PO DAILY@20 Qty: 30 RF: 0 venlafaxine 150 mg capsule,extended release 24hr 150 mg PO DAILY@09 Qty: 30 RF: 0 atorvastatin 80 mg Tablet 80 mg PO BEDTIME@20 RF: 0 pantoprazole 40 mg Tablet,Delayed Release (Dr/Ec) 40 mg PO DAILY@09 RF: 0 Xanax 1 mg tablet 1 mg PO BID PRN (Reason: anxiety) Qty: 14 RF: 0 metformin 1,000 mg Tablet 1,000 mg PO BID@, RF: 0 glimepiride 4 mg tablet 4 mg PO DAILY@09 RF: 0 Lantus U-100 Insulin 100 unit/mL Solution 14 unit SUBCUT QAM RF: 0 insulin aspart U-100 [Novolog Flexpen U-100 Insulin] 100 unit/mL (3 mL) Insulin Pen See Rx Instructions .ROUTE .COMPLEX RF: 0 aspirin 81 mg Tablet,Delayed Release (Dr/Ec) 81 mg PO DAILY@09 RF: 0 sodium chloride 1 gram tablet 1 g PO BID@, RF: 0 hydralazine 25 mg tablet 25 mg PO BID@, RF: 0 clopidogrel 75 mg tablet 75 mg PO DAILY@ RF: 0 metoprolol tartrate 50 mg tablet 50 mg PO BID@, RF: 0 fludrocortisone 0.1 mg tablet 0.1 mg PO DAILY@09 RF: 0 ondansetron HCl 8 mg Tablet 8 mg PO TID PRN (Reason: Nausea) RF: 0 prednisone 5 mg Tablet 5 mg PO DAILY@09 RF: 0 loperamide 2 mg Tablet 2 - 4 mg PO PRN RF: 0 Tylenol Extra Strength 500 mg Tablet 1,000 mg PO Q4H PRN (Reason: Pain) RF: 0 Vicks NyQuil Cold/Flu Liquicap 6.25-15-325 mg Capsule 1 cap PO PRN RF: 0 acetaminophen 325 mg Tablet 650 mg PO Q8H PRN (Reason: Pain) Qty: 60 RF: 0 levothyroxine 50 mcg Tablet 50 mcg PO DAILY@0800 Qty: 30 RF: 0 Discharge Orders: Discharge ED (Routine); Ordered 06/04/20 Ordered By: Shade Alvarez Referrals: Thu Flores, INVENTORY CONTROL SUPERVISOR [Primary Care Provider] - Discharge Diet: Advance as tolerated Discharge Activity: Resume usual activity Patient Instructions: Opioid Safety Activity Restrictions/Additional Instructions: Encourage p.o. fluids. Zofran as needed and needed for nausea vomiting Take medications as prescribed Follow-up with your primary care physician in 2 to 3 days Tylenol Motrin as needed again for fever or pain Coding Level of Care Code ED [facility] Director for g Fwd Exam Comprehensive
[2020-06-04 21:27] VITALS: PULSE 104; RESP 17; O2SAT 96
[2020-06-04 21:30] VITALS: BP 121/69; PULSE 108; RESP 16; O2SAT 96
[2020-06-04 22:00] VITALS: PULSE 100; RESP 17; O2SAT 96
[2020-06-04 22:09] LABS: Basophils # 0.1 10^3/uL (0.0-0.1); Basophils % 0.3 %; Eosinophils # 0.1 10^3/uL (0.0-0.8); Hematocrit 33.1 % (37.0-47.0); Hemoglobin 10.7 g/dL (11.5-15.3); Lymphocytes # 2.7 10^3/uL (0.8-4.8); Lymphocytes % 18.6 %; Mean Corpuscular HGB Conc 32.3 g/dL (30.0-36.0); Mean Corpuscular Hemoglobin 26.6 pg (28.0-34.0); Mean Corpuscular Volume 82.3 fL (81-99); Mean Platelet Volume 9.3 fL (7.4-10.4); Monocytes # 1.4 10^3/uL (0.2-0.9); Monocytes % 9.4 %; Neutrophils # 10.17 10^3/uL (1.8-7.7); Neutrophils % 70.2 %; Nucleated Red Blood Cells % 0 %; Platelet Count 583 10^3/cmm (130-400); Red Blood Count 4.02 10^6/uL (4.1-5.3); Red Cell Distribution Width 19.5 % (12.1-15.1); White Blood Count 14.5 10^3/uL (4.0-10.0)
[2020-06-04] MEDS: sodium chloride 0.9% 1,000 ML 999 ML IV (22:17)
[2020-06-04 22:18] VITALS: RESP 17; O2SAT 97
[2020-06-04] MEDS: morphine 4 mg/mL SDV 1 mL 2 MG IVP (22:18)
[2020-06-04] MEDS: ondansetron 2 mg/ML SDV 2 mL 4 MG IVP (22:18)
[2020-06-04 22:25] LABS: Alanine Aminotransferase 13 U/L (0-33); Albumin Level 3.8 g/dL (3.5-5.2); Alkaline Phosphatase 89 IU/L (35-105); Blood Urea Nitrogen 12 mg/dL (8-23); Calcium 8.5 mg/dL (8.5-10.5); Carbon Dioxide 29 mmol/L (22-29); Chloride 89 mmol/L (98-107); Creatinine Clr Calc Pharmacy 67.0248; Globulin 2.7 g/dL (1.3-4.6); Glucose 152 mg/dL (65-115); Lipase 12 U/L (13-60); Osmolality Calculated 271 mOsm/kg (285-295); Sodium 129 mmol/L (136-145); Total Bilirubin 0.2 mg/dL (0.15-1.2); Total Protein 6.5 g/dL (6.6-8.7)
[2020-06-04 22:27] LABS: Troponin(5th) Baseline 12 ng/L (0-10)
[2020-06-04 22:33] LABS: Anion Gap 14.2 (5-19); Aspartate Amino Transferase 13 U/L (0-32); Potassium 3.2 mmol/L (3.5-5.1)
[2020-06-04 23:00] VITALS: BP 118/76; PULSE 92; RESP 17; O2SAT 96
[2020-06-04 23:01] LABS: Add Urine Microscopic? NO
[2020-06-04 23:18] LABS: Bilirubin Urine Neg (Negative); Blood Urine Neg (Negative); Glucose Urine UA Norm (Normal); Ketones Urine Negative (Negative); Leukocyte Esterase Urine Negative (Negative); Nitrate Urine Negative (Negative); Protein Urine Neg (Negative); Specific Gravity, Urine 1.005 (1.005-1.030); Urine Appearance Clear (CLEAR); Urine Color Yellow (Yellow); Urobilinogen Urine Norm (Negative); pH Urine 6.5 (5-7)
[2020-06-05 00:13] VITALS: BP 112/71; PULSE 97; RESP 16; TEMP 36.6; O2SAT 96
== END 2020-06-05 00:15 | disposition home or self-care (01) ==
PROVIDERS: Family Medicine; Emergency Provider Emergency Medicine; PCP Nurse Practitioner
DX: R11.2 Nausea with vomiting, unspecified (principal); E86.0 Dehydration; M54.2 Cervicalgia; Z79.02 Long term (current) use of antithrombotics/antiplatelets; Z79.82 Long term (current) use of aspirin; Z79.4 Long term (current) use of insulin; I13.0 Hypertensive heart and chronic kidney disease with heart failure and stage 1 through stage 4 chronic kidney disease, or unspecified chronic kidney disease; E11.22 Type 2 diabetes mellitus with diabetic chronic kidney disease; N18.2 Chronic kidney disease, stage 2 (mild); I50.32 Chronic diastolic (congestive) heart failure; E78.5 Hyperlipidemia, unspecified; F17.210 Nicotine dependence, cigarettes, uncomplicated
CPT/HCPCS: 80053; 81003; 83690; 84484; 85025; 93005; 96361; 96374; 96375; 99284; J2270; J2405; J7030

== ENCOUNTER → 2020-06-12 13:34 | Outpatient (BNVA) | payer OTHER, MEDICARE, SELFPAY | PROVIDERS: PCP Nurse Practitioner; Visit Provider Internal Medicine | DX: E27.40 Unspecified adrenocortical insufficiency (principal); E87.1 Hypo-osmolality and hyponatremia; T14.8XXA Other injury of unspecified body region, initial encounter | CPT/HCPCS: 99215 ==

== ENCOUNTER → 2020-06-13 10:10 | Outpatient (BNVA) | payer OTHER, MEDICARE, SELFPAY | PROVIDERS: PCP Nurse Practitioner; Visit Provider Psychiatry & Neurology Psychiatry | DX: F43.12 Post-traumatic stress disorder, chronic (principal); F33.2 Major depressive disorder, recurrent severe without psychotic features; F41.1 Generalized anxiety disorder | CPT/HCPCS: 99214 ==

== ENCOUNTER 2020-06-21 19:33 | Emergency (ER) | payer OTHER, MEDICARE, SELFPAY ==
[2020-06-21 19:51] VITALS: BP 108/71; PULSE 89; RESP 16; TEMP 36.8; O2SAT 97; BMI 28.1
[2020-06-21] MEDS: orphenadrine 30 mg/mL Inj 2 mL IM (21:18)
--- NOTE | 2020-06-21 22:07 | W.ED.HA ---
HPI - Headache General: Chief Complaint: Headache Stated Complaint: severe headache/neckpain Time Seen by Provider: 06/21/20 20:44 History of Present Illness: HPI Narrative: The patient is a 65-year-old female with past medical history stroke requiring PEG tube and she also has polydipsia causing hyponatremia. Within the last month she fell injuring her neck and was diagnosed with a vertebral fracture at an outside hospital. She wears a c-collar for this and is following a neurosurgeon. Today she was walking down the stairs and slightly slipped which she says ann her neck causing an increase in her neck pain and a headache from this. She took 2 hydrocodone 7.5 tablets at home which did not help. MD elicited complaint: headache Onset description: suddenly Location: diffuse Severity: moderate Quality & Timing: aching Associated symptoms: Reports no associated symptoms; Deny chest pain, confusion or rash Review of Systems General: Reports: 10 or more systems reviewed and unremarkable except in HPI and below Const: Denies: fatigue Eyes: Denies: change in vision, blurry vision or eye redness ENMT: Denies: throat pain, swelling of lips/tongue, ear or mastoid pain or nasal congestion Card: Denies: chest pain, palpitations, irregular heart rhythm, edema, dyspnea on exertion or orthopnea Resp: Denies: dyspnea, productive cough or non-productive cough GI: Denies: abdominal pain, diarrhea or GI cramping : Denies: flank pain, difficulty voiding, urinary frequency or urinary urgency Musc: Reports: neck pain; Denies: back pain, extremity pain, joint pain, joint redness, limited range of motion or muscle weakness Skin/Breast: Denies: rash, pruritus, erythema, skin pain or skin tenderness Neuro: Reports: headache(s); Denies: numbness in extremities, weakness in extremities, sensory changes, difficulty walking, dizziness, confusion or Slurred speech present Psych: Denies: anxiety or depression Endo: Denies: polyuria All/Imm: Denies: urticaria, throat swelling or tongue swelling PFSH ED PFSH: Medical History Anemia C. 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, recurrent severe without psychotic features Morbid obesity Post-traumatic stress disorder, chronic Surgical History H/O esophagogastroduodenoscopy H/O: hysterectomy History of bunionectomy bilateral Hx of cholecystectomy Status post colonoscopy Family History Mother Hypertension Diabetes Father Hypertension Asthma Other CAD (coronary artery disease) Cancer Denies family history of Anesthesia complication Bleeding disorder Social History (Updated 06/13/20 @ 10:50 by Brennan Reno LPN) Smoking and tobacco status: current every day smoker cigars Cigars smoked per week: 35 Years smoked cigars: 53 Cigar details: 1 PPD Quit status (tobacco): has tried quititng Second hand smoke exposure: Yes Smoking risk assessment/counseling performed?: No Alcohol intake: former Former alcohol use details: Reportedly has not had any alcohol since June Household members: spouse Housing: Manufactured/Mobile home Marital status: Current occupational status: retired History of recent travel: No Physical Exam Narrative: EXAM NARRATIVE: Patient wearing c-collar. Const: COMMON NORMALS: no acute distress, average body habitus, patient oriented x3, no limitations, healthy appearing, alert and well nourished GENERAL APPEARANCE: cooperative, comfortable, well kempt and well developed ORIENTATION/CONSCIOUSNESS: Yes awake, Yes oriented to person, Yes oriented to place and Yes oriented to time HENMT: COMMON NORMALS: normocephalic, external ears normal and Normal external nose present HEAD & SCALP: normal to inspection and normocephalic NOSE: Normal external nose present EXTERNAL EAR: Yes external ears normal MOUTH: Normal oral and palatal mucosa present THROAT: posterior oropharynx normal Eye: COMMON NORMALS: Equal, round and reactive pupils present and EOMs intact bilaterally GENERAL EYE: appearance normal, both eyes and all related structures PUPIL: Yes Equal, round and reactive pupils present Neck/C-Spine: COMMON NORMALS: full ROM, no lymphadenopathy, no meningeal signs and no JVD GENERAL: Yes normal visual inspection Lymph: LYMPHATIC: no lymphadenopathy noted Chest: COMMONS NORMALS: normal inspection of the chest and normal palpation of entire chest wall Resp: COMMON NORMALS: normal respiratory effort, No retractions, No use of accessory muscles, clear to auscultation bilaterally and percussion normal EFFORT & INSPECTION: Yes able to speak in complete sentences AUSCULTATION: clear to auscultation bilaterally PERCUSSION: percussion normal Cardio: COMMON NORMALS: no JVD, regular rate, regular rhythm, S1 normal heart sound present, S2 normal heart sound present and Peripheral pulses 2+ throughout RATE: regular rate RHYTHM: regular rhythm HEART SOUNDS: S1 normal heart sound present and S2 normal heart sound present PERIPHERAL PULSES: Peripheral pulses 2+ throughout GI: COMMON NORMALS: Normal to inspection, nondistended, normoactive bowel sounds present, Soft to palpation, non-tender and no masses INSPECTION: Yes normal to inspection PALPATION: Yes Soft to palpation OTHER: G-tube present in belly. : COMMON NORMALS: Yes no CVA tenderness BLADDER/KIDNEY EXAM: Yes no CVA tenderness Back/Pelvis: COMMON NORMALS: no CVA tenderness, thoracic and lumbar spine normal to inspection, no thoracic nor lumbar tenderness and thoraco-lumbar ROM normal Extremity: COMMON NORMALS: normal to inspection, full ROM, capillary refill normal, no joint enlargement and no pedal edema GENERAL: Yes normal exam except as noted Neuro: COMMON NORMALS: patient oriented x3, CN's II-XII intact bilaterally, moves all extremities, no focal motor deficits, no sensory deficits noted and gait normal SENSORIUM/ORIENTATION: Yes alert, Yes oriented to person, Yes oriented to place and Yes oriented to time MENINGEAL SIGNS: Yes no meningeal signs Psych: COMMON NORMALS: mental status grossly normal, Normal thought process present, cooperative, normal affect and speech normal APPEARANCE: Yes well kempt ATTITUDE: Yes calm SPEECH: Yes normal speech THOUGHT PROCESS: Normal thought process present Skin: COMMON NORMALS: no rashes or lesions noted GENERAL SKIN EXAM: no rashes or lesions noted Course Vital Signs: Vital signs: Vital Signs Temperature 98.2 F 06/21/20 19:51 Pulse Rate 89 06/21/20 19:51 Respiratory Rate 16 06/21/20 19:51 Blood Pressure 108/71 06/21/20 19:51 Pulse Oximetry 97 06/21/20 19:51 MDM - Headache MDM Narrative: Medical decision making narrative: Patient clearly has a musculoskeletal pain related to an acute neck strain when she slipped. She was given Norflex which did help some and then morphine intramuscular. Symptoms improved moderately and she was stable for discharge. She has no new injury not requiring new imaging. Discharge Plan Discharge Patient Disposition: Home Clinical Impression: Headache, Neck pain Condition: Stable Prescriptions: No Action prednisone 1 mg tablet 4 mg PO DAILY Qty: 360 RF: 3 gabapentin 100 mg capsule 200 mg PO TID RF: 0 venlafaxine 150 mg capsule,extended release 24hr 150 mg PO DAILY@09 Qty: 30 RF: 2 mirtazapine 30 mg tablet 30 mg PO DAILY@20 Qty: 30 RF: 2 atorvastatin 80 mg Tablet 80 mg PO BEDTIME@20 RF: 0 pantoprazole 40 mg Tablet,Delayed Release (Dr/Ec) 40 mg PO DAILY@09 RF: 0 ondansetron HCl 4 mg tablet 4 mg PO DAILY Qty: 7 RF: 0 metformin 1,000 mg Tablet 1,000 mg PO BID@, RF: 0 glimepiride 4 mg tablet 4 mg PO DAILY@09 RF: 0 Lantus U-100 Insulin 100 unit/mL Solution 14 unit SUBCUT QAM RF: 0 insulin aspart U-100 [Novolog Flexpen U-100 Insulin] 100 unit/mL (3 mL) Insulin Pen See Rx Instructions .ROUTE .COMPLEX RF: 0 aspirin 81 mg Tablet,Delayed Release (Dr/Ec) 81 mg PO DAILY@09 RF: 0 sodium chloride 1 gram tablet 1 g PO BID@, RF: 0 hydralazine 25 mg tablet 25 mg PO BID@, RF: 0 clopidogrel 75 mg tablet 75 mg PO DAILY@09 RF: 0 metoprolol tartrate 50 mg tablet 50 mg PO BID@,20 RF: 0 fludrocortisone 0.1 mg tablet 0.1 mg PO DAILY@09 RF: 0 ondansetron HCl 8 mg Tablet 8 mg PO TID PRN (Reason: Nausea) RF: 0 loperamide 2 mg Tablet 2 - 4 mg PO PRN RF: 0 Tylenol Extra Strength 500 mg Tablet 1,000 mg PO Q4H PRN (Reason: Pain) RF: 0 Vicks NyQuil Cold/Flu Liquicap 6.25-15-325 mg Capsule 1 cap PO PRN RF: 0 acetaminophen 325 mg Tablet 650 mg PO Q8H PRN (Reason: Pain) Qty: 60 RF: 0 levothyroxine 50 mcg Tablet 50 mcg PO DAILY@0800 Qty: 30 RF: 0 Discharge Orders: Discharge ED (Routine); Ordered 06/21/20 Ordered By: Ramón Jacobson Referrals: Thu Flores FNP [Primary Care Provider] - Discharge Diet: Advance as tolerated Discharge Activity: Resume usual activity Patient Instructions: Headache, Opioid Safety Activity Restrictions/Additional Instructions: Have a headache related to your neck pain. Please take your medicines at home and sleep well tonight. Return to the ER if symptoms worsen otherwise follow-up with your primary care physician in a couple days. Coding Level of Care Code ED Methods Analyst for Padminig Fwd Exam Comprehensive
[2020-06-21] MEDS: morphine 4 mg/mL SDV 1 mL IM (22:14)
== END 2020-06-21 22:37 | disposition home or self-care (01) ==
PROVIDERS: Emergency Provider Family Medicine; PCP Nurse Practitioner
DX: R51.9 Headache, unspecified (principal); M54.2 Cervicalgia; Z79.4 Long term (current) use of insulin; Z79.82 Long term (current) use of aspirin; Z79.02 Long term (current) use of antithrombotics/antiplatelets; I13.0 Hypertensive heart and chronic kidney disease with heart failure and stage 1 through stage 4 chronic kidney disease, or unspecified chronic kidney disease; E11.22 Type 2 diabetes mellitus with diabetic chronic kidney disease; N18.2 Chronic kidney disease, stage 2 (mild); I50.32 Chronic diastolic (congestive) heart failure; E78.5 Hyperlipidemia, unspecified; F17.210 Nicotine dependence, cigarettes, uncomplicated
CPT/HCPCS: 96372; 99282; J2270; J2360

== ENCOUNTER 2020-06-27 19:11 | Emergency (ER) | payer OTHER, SELFPAY ==
[2020-06-27 19:17] VITALS: BP 131/74; PULSE 105; RESP 19; TEMP 36.9; O2SAT 96; BMI 25.1
--- NOTE | 2020-06-27 19:26 | XR_ITS ---
WS: [id number] KUB, AP view, 06/27/2020 Clinical Data: vomiting Comparison: KUB, 09/07/2019. Findings: No abnormal intraabdominal masses or calcifications are seen. There is no dilatated small bowel or ev idence of obstruction. There is a generator overlying the left upper quadrant. There is a gastrostomy tube in the stomach. T he colon shows air within but there is no dilatation. There is no evidence of obstruction. There are clips in the right upper quadrant from a cholecystectomy. There is a left pelvic clip. Monitor leads are on the abdominal wall. There is a dextroscoliosis of the lumbar spine with osteoarthritis. XR/XR KUB [id number] Impression: Mild ileus of the colon.
[2020-06-27 19:37] VITALS: BP 126/103; PULSE 100; RESP 24; O2SAT 99
--- NOTE | 2020-06-27 19:45 | W.ED.ABDPA2 ---
HPI - Abdominal Pain General: Chief Complaint: Abdominal Pain Stated Complaint: NAUSEA, ABD PAIN, PEG TUBE PROBLEM, NECK PAIN Time Seen by Provider: 06/27/20 19:22 Source: patient Mode of arrival: ambulatory Limitations: no limitations History of Present Illness: HPI narrative: 65-year-old female with a long history of chronic vomiting headaches. States she had a another migraine over the last 2 days causing her vomiting along with diffuse cramping abdominal pain. She denies any worsening improving factors. She denies any fever. She denies any diarrhea. Is resting comfortably in the room Associated Symptoms: Reports vomiting; Denies chills, dysuria and fever(s) Review of Systems Const: Denies: fever(s), chills, body aches or change in appetite Eyes: Denies: blurry vision or eye discomfort ENMT: Denies: throat pain or dental pain Card: Denies: chest pain Resp: Denies: dyspnea GI: Reports: abdominal pain, nausea and vomiting : Denies: dysuria Musc: Denies: neck pain or back pain Skin/Breast: Denies: rash Neuro: Reports: headache(s) Psych: Denies: depression Jeremiah/Lymph: Denies: easy bruising All/Imm: Denies: urticaria PFSH ED PFSH: Medical History Anemia C. 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, recurrent severe without psychotic features Morbid obesity Post-traumatic stress disorder, chronic Surgical History H/O esophagogastroduodenoscopy H/O: hysterectomy History of bunionectomy bilateral Hx of cholecystectomy Status post colonoscopy Family History Mother Hypertension Diabetes Father Hypertension Asthma Other CAD (coronary artery disease) Cancer Denies family history of Anesthesia complication Bleeding disorder Social History (Updated 06/13/20 @ 10:50 by Brennan Reno LPN) Smoking and tobacco status: current every day smoker cigars Cigars smoked per week: 35 Years smoked cigars: 53 Cigar details: 1 PPD Quit status (tobacco): has tried quititng Second hand smoke exposure: Yes Smoking risk assessment/counseling performed?: No Alcohol intake: former Former alcohol use details: Reportedly has not had any alcohol since June Household members: spouse Housing: Manufactured/Mobile home Marital status: Current occupational status: retired History of recent travel: No Physical Exam Const: COMMON NORMALS: no acute distress, patient oriented x3 and healthy appearing HENMT: COMMON NORMALS: normocephalic and atraumatic HEAD & SCALP: normocephalic and atraumatic Eye: COMMON NORMALS: Equal, round and reactive pupils present and EOMs intact bilaterally PUPIL: Yes Equal, round and reactive pupils present Neck/C-Spine: COMMON NORMALS: full ROM and supple Chest: COMMONS NORMALS: normal inspection of the chest and normal palpation of entire chest wall Resp: COMMON NORMALS: normal respiratory effort, No retractions, No use of accessory muscles and clear to auscultation bilaterally AUSCULTATION: clear to auscultation bilaterally Cardio: COMMON NORMALS: regular rate, regular rhythm and No murmurs present (Cardio) RATE: regular rate RHYTHM: regular rhythm GI: COMMON NORMALS: Normal to inspection, nondistended, normoactive bowel sounds present, Soft to palpation, non-tender and no masses PALPATION: Yes Soft to palpation Extremity: COMMON NORMALS: normal to inspection and full ROM Neuro: COMMON NORMALS: patient oriented x3, moves all extremities and no focal motor deficits Psych: COMMON NORMALS: mental status grossly normal, Normal thought process present and cooperative THOUGHT PROCESS: Normal thought process present Skin: COMMON NORMALS: no rashes or lesions noted and no wounds GENERAL SKIN EXAM: no rashes or lesions noted Course Vital Signs: Vital signs: Vital Signs Temperature 98.5 F 06/27/20 19:17 Pulse Rate 91 06/27/20 21:41 Respiratory Rate 18 06/27/20 21:41 Blood Pressure 130/87 06/27/20 21:41 Pulse Oximetry 96 06/27/20 21:41 MDM - Abdominal Pain MDM Narrative: Medical decision making narrative: Patient presents here with vomiting along with abdominal pain headache that is chronic in nature. She is well-appearing here. She does have hyponatremia that is chronic in nature. Abdominal exam here at discharge is benign. She has no signs of acute surgical cause for her pain. She has no peritoneal signs. She has no signs of small bowel obstruction. She feels improved after Reglan will prescribe Reglan for home and she is to return to the ER if worsening. She understands agrees to this plan. Lab Data: Labs: Lab Results 06/27/20 06/27/20 06/27/20 Range/Units 19:27 19:27 20:15 WBC Cancelled 14.7 H Corrected WBC Cancelled RBC Cancelled 4.69 Hgb Cancelled 12.9 Hct Cancelled 38.5 MCV Cancelled 82.1 MCH Cancelled 27.5 L MCHC Cancelled 33.5 RDW Cancelled 18.6 H Plt Count Cancelled 404 H MPV Cancelled 9.1 Gran % Cancelled Neut % (Auto) Cancelled 73.4 Lymph % (Auto) Cancelled 16.4 Calhoun % (Auto) Cancelled 8.7 Eos % (Auto) Cancelled 0.3 Baso % (Auto) Cancelled 0.3 Neut # (Auto) Cancelled 10.80 H Lymph # (Auto) Cancelled 2.4 Calhoun # (Auto) Cancelled 1.3 H Eos # (Auto) Cancelled 0.0 Baso # (Auto) Cancelled 0.1 Absolute Gran (aut o) Cancelled Nucleated RBC % (a uto) Cancelled 0 Nucleated RBCs # Cancelled 0.0 Sodium 126 L (136-145) mmol/L Potassium 3.6 (3.5-5.1) mmol/L Chloride 91 L (98-107) mmol/L Carbon Dioxide 21 L (22-29) mmol/L Anion Gap 17.6 (5-19) BUN 8 (8-23) mg/dL Creatinine 0.5 (0.5-0.9) mg/dL GFR Calculation 123.4 (90-130) mL/min Glucose 149 H (65-115) mg/dL Calculated Osmolal ity 263 L (285-295) mOsm/k g Calcium 7.7 L (8.5-10.5) mg/dL Total Bilirubin 0.2 (0.15-1.2) mg/dL AST 66 H (0-32) U/L ALT 38 H (0-33) U/L Alkaline Phosphata se 94 (35-105) IU/L Total Protein 5.6 L (6.6-8.7) g/dL Albumin 3.3 L (3.5-5.2) g/dL Globulin 2.3 (1.3-4.6) g/dL Lipase 17 (13-60) U/L Discharge Plan Discharge Patient Disposition: Home Clinical Impression: Hyponatremia Headache Qualifiers: Headache type: unspecified Headache chronicity pattern: chronic headache Intractability: not intractable Qualified Code(s): R51.9 - Headache, unspecified Abdominal pain Qualifiers: Abdominal location: generalized Qualified Code(s): R10.84 - Generalized abdominal pain Vomiting Qualifiers: Vomiting type: unspecified Vomiting Intractability: non-intractable Nausea presence: with nausea Qualified Code(s): R11.2 - Nausea with vomiting, unspecified Condition: Stable Prescriptions: New Reglan 10 mg tablet 10 mg PO Q6H PRN (Reason: nausea and vomiting) Qty: 20 RF: 0 No Action prednisone 1 mg tablet 4 mg PO DAILY Qty: 360 RF: 3 gabapentin 100 mg capsule 200 mg PO TID@09,12,23 RF: 0 venlafaxine 150 mg capsule,extended release 24hr 150 mg PO DAILY@09 Qty: 30 RF: 2 mirtazapine 30 mg tablet 30 mg PO DAILY@20 Qty: 30 RF: 2 atorvastatin 80 mg Tablet 80 mg PO BEDTIME@20 RF: 0 pantoprazole 40 mg Tablet,Delayed Release (Dr/Ec) 40 mg PO DAILY@09 RF: 0 ondansetron HCl 4 mg tablet 4 mg PO DAILY Qty: 7 RF: 0 metformin 1,000 mg Tablet 1,000 mg PO BID@,20 RF: 0 glimepiride 4 mg tablet 4 mg PO DAILY@09 RF: 0 Lantus U-100 Insulin 100 unit/mL Solution 14 unit SUBCUT DAILY@0900 RF: 0 insulin aspart U-100 [Novolog Flexpen U-100 Insulin] 100 unit/mL (3 mL) Insulin Pen See Rx Instructions .ROUTE .COMPLEX RF: 0 aspirin 81 mg Tablet,Delayed Release (Dr/Ec) 81 mg PO DAILY@09 RF: 0 sodium chloride 1 gram tablet 1 g PO BID@,20 RF: 0 hydralazine 25 mg tablet 25 mg PO BID@,20 RF: 0 clopidogrel 75 mg tablet 75 mg PO DAILY@09 RF: 0 metoprolol tartrate 50 mg tablet 25 mg PO BID@09,20 RF: 0 fludrocortisone 0.1 mg tablet 0.1 mg PO DAILY@09 RF: 0 ondansetron HCl 8 mg Tablet 8 mg PO TID PRN (Reason: Nausea) RF: 0 loperamide 2 mg Tablet 2 - 4 mg PO PRN RF: 0 acetaminophen [Tylenol Extra Strength] 500 mg Tablet 1,000 mg PO Q4H PRN (Reason: Pain) RF: 0 acetaminophen 325 mg Tablet 650 mg PO Q8H PRN (Reason: Pain) Qty: 60 RF: 0 levothyroxine 50 mcg Tablet 50 mcg PO DAILY@0800 Qty: 30 RF: 0 methocarbamol 750 mg tablet 1,500 mg PO TID PRN (Reason: MUSCLE SPASMS) RF: 0 hydrocodone-acetaminophen 7.5-325 mg tablet 1 - 2 tab PO Q4H PRN (Reason: Pain) RF: 0 Discharge Orders: Discharge ED (Routine); Ordered 06/27/20 Ordered By: Melissa Garcia Referrals: Thu Flores FNP [Primary Care Provider] - Discharge Diet: Advance as tolerated Discharge Activity: Resume usual activity Patient Instructions: Acute Nausea and Vomiting (ED), Abdominal Pain (ED) Coding Level of Care Code ED Bowling Alley Manager for Chg Fwd Exam Comprehensive
[2020-06-27 20:10] VITALS: RESP 16
[2020-06-27] MEDS: morphine 4 mg/mL SDV 1 mL IVP ×2 (20:10→20:42)
[2020-06-27] MEDS: ondansetron 2 mg/ML SDV 2 mL 4 MG IVP (20:11)
[2020-06-27 20:18] LABS: Alanine Aminotransferase 38 U/L (0-33); Albumin Level 3.3 g/dL (3.5-5.2); Alkaline Phosphatase 94 IU/L (35-105); Blood Urea Nitrogen 8 mg/dL (8-23); Calcium 7.7 mg/dL (8.5-10.5); Carbon Dioxide 21 mmol/L (22-29); Chloride 91 mmol/L (98-107); Creatinine Clr Calc Pharmacy 62.4676; Globulin 2.3 g/dL (1.3-4.6); Glomerular Filtration Rate 123.4 mL/min (90-130); Glucose 149 mg/dL (65-115); Lipase 17 U/L (13-60); Osmolality Calculated 263 mOsm/kg (285-295); Sodium 126 mmol/L (136-145); Total Bilirubin 0.2 mg/dL (0.15-1.2); Total Protein 5.6 g/dL (6.6-8.7)
[2020-06-27 20:23] LABS: Basophils # 0.1 10^3/uL (0.0-0.1); Basophils % 0.3 %; Eosinophils % 0.3 %; Hematocrit 38.5 % (37.0-47.0); Hemoglobin 12.9 g/dL (11.5-15.3); Lymphocytes # 2.4 10^3/uL (0.8-4.8); Lymphocytes % 16.4 %; Mean Corpuscular HGB Conc 33.5 g/dL (30.0-36.0); Mean Corpuscular Hemoglobin 27.5 pg (28.0-34.0); Mean Corpuscular Volume 82.1 fL (81-99); Mean Platelet Volume 9.1 fL (7.4-10.4); Monocytes # 1.3 10^3/uL (0.2-0.9); Monocytes % 8.7 %; Neutrophils % 73.4 %; Nucleated Red Blood Cells % 0 %; Platelet Count 404 10^3/cmm (130-400); Red Blood Count 4.69 10^6/uL (4.1-5.3); Red Cell Distribution Width 18.6 % (12.1-15.1); White Blood Count 14.7 10^3/uL (4.0-10.0)
[2020-06-27 20:26] LABS: Anion Gap 17.6 (5-19); Aspartate Amino Transferase 66 U/L (0-32); Potassium 3.6 mmol/L (3.5-5.1)
[2020-06-27 20:43] VITALS: BP 157/91; PULSE 92; RESP 16; O2SAT 97
[2020-06-27] MEDS: metoclopramide 5 mg/mL SDV 2 mL IVP (20:54)
[2020-06-27 21:41] VITALS: BP 130/87; PULSE 91; RESP 18; O2SAT 96
== END 2020-06-27 21:41 | disposition home or self-care (01) ==
PROVIDERS: Emergency Provider Emergency Medicine; PCP Nurse Practitioner
DX: R51.9 Headache, unspecified (principal); R10.84 Generalized abdominal pain; R11.2 Nausea with vomiting, unspecified; E87.1 Hypo-osmolality and hyponatremia; Z79.02 Long term (current) use of antithrombotics/antiplatelets; Z79.82 Long term (current) use of aspirin; Z79.4 Long term (current) use of insulin; I13.0 Hypertensive heart and chronic kidney disease with heart failure and stage 1 through stage 4 chronic kidney disease, or unspecified chronic kidney disease; E11.22 Type 2 diabetes mellitus with diabetic chronic kidney disease; N18.2 Chronic kidney disease, stage 2 (mild); I50.32 Chronic diastolic (congestive) heart failure; E78.5 Hyperlipidemia, unspecified; F17.210 Nicotine dependence, cigarettes, uncomplicated
CPT/HCPCS: 36415; 74018; 80053; 83690; 85025; 96374; 96375; 96376; 99284; J2270; J2405; J2765

== ENCOUNTER 2020-07-04 09:39 | Outpatient (CLI) | payer OTHER, SELFPAY ==
--- NOTE | 2020-07-04 | CT_ITS ---
WS: [id number] CT CERVICAL TRAUMA TECHNIQUE: Noncontrast CT of the cervical spine with coronal and sagittal reformatted images. CLINICAL INFORMATION: CERVICAL FX 2WK AGO COMPARISON: None. DLP: 1408.[address] scans at [facility] use at least one of these dose optimization techniques: automat ed exposure control; mA and/or kV adjustment per patient size (includes targeted exams where dose is matched to clinical indication); or iterative reconstruction. FINDINGS: Exaggeration the normal cervical lordosis. Type III dens fracture with slight extension into the body of C2. Slight retrolisthesis of the distal dens fragment on the body of C2. Retrolisthesis measures 3 mm. Fracture widening measuring 4.7 mm. Normal C1-2 articulation. Normal C1 ring. Slight anterolisthesis C3 on C4, C4 on C5, and C5 on C6. Moderate spondylitic changes. Disc osteophyt e complexes with mild central canal stenosis C5-C6 and C6-C7. Bony foraminal narrowing worse at left C4-C5, bilateral C5-C6 and left C6-C7. Lung apices are well aerated. Normal prevertebral soft tissues. Mastoids air cells are well aerated. CT/CT cervical spin wo con* [id number] IMPRESSION: 1. Type III dens fracture with slight retrolisthesis of the distal dens on the body of C2 measuring 3 mm. Fracture widening measures approximately 4.7 mm. C1 -2 articulation is maintained. No significant callus formation. 2. No high-grade central canal stenosis. 3. Moderate spondylitic changes cervical spine with exaggeration of the normal cervical lordosis. 4. Chronic slight anterolisthesis C3 on C4, C4 on C5 and C5 on C6. 5. Mild central canal stenosis C5-C6 and C6-C7 due to disc osteophyte complexe s.
--- NOTE | 2020-07-04 | CT_ITS ---
WS: [id number] CT HEAD TECHNIQUE: Noncontrast CT of the head obtained from the skullbase to the vertex. CLINICAL INFORMATION: MEMORY LOSS COMPARISON: March 15, 2020 DLP: 992.[address] scans at [facility] use at least one of these dose optimization techniques: automat ed exposure control; mA and/or kV adjustment per patient size (includes targeted exams where dose is matched to clinical indication); or iterative reconstruction. FINDINGS: No evidence of intracranial hemorrhage or mass effect. Ventricular system and basal cisterns are tay nt. Mild small vessel changes with mild parenchymal volume loss. No extra-axial fluid collections. No evidence of mass or mass effect. Normal bob-white differentiation. Paranasal sinuses and mastoid air cells are well aerated. Mild mucosal thickening right frontal sinus . .Normal visualized soft tissues. CT/CT head wo con* [id number] IMPRESSION: 1. No evidence of intracranial hemorrhage or mass effect. 2. Mild small vessel changes. Mild parenchymal volume loss. 3. No acute intracranial findings. No significant interval changes from previo us.
== END 2020-07-04 09:40 | disposition home or self-care (01) ==
PROVIDERS: PCP Nurse Practitioner; Visit Provider Nurse Practitioner
DX: Z01.89 Encounter for other specified special examinations (principal)
CPT/HCPCS: 70450; 72125

== ENCOUNTER 2020-07-04 10:26 | Emergency (ER) | payer OTHER, MEDICARE, SELFPAY ==
[2020-07-04] VITALS (8 sets, daily range): BP systolic 109–204; BP diastolic 67–143; PULSE 97–117; RESP 13–15; TEMP 36.3; O2SAT 91–97; BMI 27.6
--- NOTE | 2020-07-04 12:00 | ED_ITS ---
HPI - Nausea/Vomiting/Diarrhea General: Chief complaint: Nausea/Vomiting/Diarrhea Stated complaint: abd pain/N/V/D Time Seen by Provider: 07/04/20 11:05 History of Present Illness: HPI Narrative: The patient is a 68-year-old female with past medical historyCoronary artery disease withThe patient is a 65-year-old female with history of a C2 fracture in early May after a fall. She also complains of chronic abdominal pain, nausea, vomiting, and diarrhea. S he is seen frequently for these complaints. She says over the past week her nausea, vomiting, and diarrhea have worsened which exacerbates her neck pain. She says yesterday the belly pain was so bad she blacked out fell and hit her head. She was seen at an outside facility and a head and neck CT was ordered which she completed earlier today. She comes to the ER for the belly pain and worsening neck pain. No focal neurologic deficits, no radicular symptoms. She says the hydrocodone's at home are not helping much and she is requesting morphine and Reglan. She says she was given Reglan during her last visit on the seventh which did help. MD elicited complaint: nausea, vomiting, diarrhea and abdominal pain Onset (ago): day(s) (7) Associated nausea: Yes Location of pain: Diffuse Radiation: diffuse Pain consistency: constant Severity: moderate Quality: sharp Relieving factors: none Associated symtoms: Reports no associated symptoms, headache(s) and nausea; Denies anxiety, change in vision, chest pain, fatigue, fevers/chills or palpitations Review of Systems General: Reports: 10 or more systems reviewed and unremarkable except in HPI and below Narrative: Chronic neck pain and headache. Const: Denies: fatigue Eyes: Denies: change in vision, blurry vision or eye redness ENMT: Denies: throat pain, swelling of lips/tongue, ear or mastoid pain or nasal congestion Card: Denies: chest pain, palpitations, irregular heart rhythm, edema, dyspnea on exertion or orthopnea Resp: Denies: dyspnea, productive cough or non-productive cough GI: Reports: abdominal pain, nausea, vomiting and diarrhea; Denies: constipation : Denies: flank pain, difficulty voiding, urinary frequency or urinary urgency Musc: Denies: neck pain, back pain, extremity pain, joint pain, joint redness, limited range of motion or muscle weakness Skin/Breast: Denies: rash, pruritus, erythema, skin pain or skin tenderness Neuro: Reports: headache(s) Psych: Denies: anxiety or depression Endo: Denies: polyuria All/Imm: Denies: urticaria, throat swelling or tongue swelling PFSH ED PFSH: Medical History Anemia C. 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, recurrent severe without psychotic features Morbid obesity Post-traumatic stress disorder, chronic Surgical History H/O esophagogastroduodenoscopy H/O: hysterectomy History of bunionectomy bilateral Hx of cholecystectomy Status post colonoscopy Family History Mother Hypertension Diabetes Father Hypertension Asthma Other CAD (coronary artery disease) Cancer Denies family history of Anesthesia complication Bleeding disorder Social History (Updated 06/13/20 @ 10:50 by Brennan Reno LPN) Smoking and tobacco status: current every day smoker cigars Cigars smoked per week: 35 Years smoked cigars: 53 Cigar details: 1 PPD Quit status (tobacco): has tried quititng Second hand smoke exposure: Yes Smoking risk assessment/counseling performed?: No Alcohol intake: former Former alcohol use details: Reportedly has not had any alcohol since June Household members: spouse Housing: Manufactured/Mobile home Marital status: Current occupational status: retired History of recent travel: No Physical Exam Narrative: EXAM NARRATIVE: The patient is wearing a c-collar chronically. Const: COMMON NORMALS: no acute distress, average body habitus, patient oriented x3, no limitations, healthy appearing, alert and well nourished GENERAL APPEARANCE: cooperative, comfortable, well kempt and well developed ORIENTATION/CONSCIOUSNESS: Yes awake, Yes oriented to person, Yes oriented to place and Yes oriented to time HENMT: COMMON NORMALS: normocephalic, external ears normal and Normal external nose present HEAD & SCALP: normal to inspection and normocephalic NOSE: Normal external nose present EXTERNAL EAR: Yes external ears normal MOUTH: Normal oral and palatal mucosa present THROAT: posterior oropharynx normal Eye: COMMON NORMALS: Equal, round and reactive pupils present and EOMs intact bilaterally GENERAL EYE: appearance normal, both eyes and all related structures PUPIL: Yes Equal, round and reactive pupils present Neck/C-Spine: COMMON NORMALS: full ROM, no lymphadenopathy, no meningeal signs and no JVD GENERAL: Yes normal visual inspection Lymph: LYMPHATIC: no lymphadenopathy noted Chest: COMMONS NORMALS: normal inspection of the chest and normal palpation of entire chest wall Resp: COMMON NORMALS: normal respiratory effort, No retractions, No use of accessory muscles, clear to auscultation bilaterally and percussion normal EFFORT & INSPECTION: Yes able to speak in complete sentences AUSCULTATION: clear to auscultation bilaterally PERCUSSION: percussion normal Cardio: COMMON NORMALS: no JVD, regular rate, regular rhythm, S1 normal heart sound present, S2 normal heart sound present and Peripheral pulses 2+ throughout RATE: regular rate RHYTHM: regular rhythm HEART SOUNDS: S1 normal heart sound present and S2 normal heart sound present PERIPHERAL PULSES: Peripheral pulses 2+ throughout GI: COMMON NORMALS: Normal to inspection, nondistended, normoactive bowel sounds present, Soft to palpation and no masses INSPECTION: Yes normal to inspection PALPATION: Yes Soft to palpation and Yes Tenderness to palpation present (GI) Details: LLQ, RLQ, LUQ and RUQ OTHER: Diffuse abdominal tenderness. G tube in good position and not tender : COMMON NORMALS: Yes no CVA tenderness BLADDER/KIDNEY EXAM: Yes no CVA tenderness Back/Pelvis: COMMON NORMALS: no CVA tenderness, thoracic and lumbar spine normal to inspection, no thoracic nor lumbar tenderness and thoraco-lumbar ROM normal Extremity: COMMON NORMALS: normal to inspection, full ROM, capillary refill normal, no joint enlargement and no pedal edema GENERAL: Yes normal exam except as noted Neuro: COMMON NORMALS: patient oriented x3, CN's II-XII intact bilaterally, moves all extremities, no focal motor deficits, no sensory deficits noted and gait normal SENSORIUM/ORIENTATION: Yes alert, Yes oriented to person, Yes oriented to place and Yes oriented to time MENINGEAL SIGNS: Yes no meningeal signs Psych: COMMON NORMALS: mental status grossly normal, Normal thought process present, cooperative, normal affect and speech normal APPEARANCE: Yes well kempt ATTITUDE: Yes calm SPEECH: Yes normal speech THOUGHT PROCESS: Normal thought process present Skin: COMMON NORMALS: no rashes or lesions noted GENERAL SKIN EXAM: no rashes or lesions noted Course Vital Signs: Vital signs: Vital Signs Temperature 97.3 F L 07/04/20 10:41 Pulse Rate 117 H 07/04/20 15:09 Respiratory Rate 14 07/04/20 13:25 Blood Pressure 204/135 07/04/20 15:09 Pulse Oximetry 97 07/04/20 15:09 MDM - Nausea/Vomiting/Diarrhea MDM Narrative: Medical decision making narrative: Patient came to the ER today complaining of chronic neck pain and vomiting and diarrhea as she usually does. I discussed with her surgeon nurse practitioner Franca Barajas who discussed with Dr. Malhotra show her images. She has a slight worsening of her fracture and they will schedule her an appointment, contact her and likely perform surgery. She also has hypokalemia. She did not tolerate IV potassium and was given oral potassium and discharge. Also recommended she take her blood pressure medicines as her blood pressure has been elevated here and return to the ER with worsening symptoms. Lab Data: Labs: Lab Results 07/04/20 07/04/20 07/04/20 Range/Units 12:18 12:58 12:58 WBC 9.2 (4.0-10.0) 10^3/ uL RBC 3.42 L (4.1-5.3) 10^6/u L Hgb 9.2 L (11.5-15.3) g/dL Hct 27.6 L (37.0-47.0) % MCV 80.7 L (81-99) fL MCH 26.9 L (28.0-34.0) pg MCHC 33.3 (30.0-36.0) g/dL RDW 18.6 H (12.1-15.1) % Plt Count 540 H (130-400) 10^3/c mm MPV 8.8 (7.4-10.4) fL Neut % (Auto) 70.5 % Lymph % (Auto) 19.5 % [place] % (Auto) 8.5 % Eos % (Auto) 0.7 % Baso % (Auto) 0.3 % Neut # (Auto) 6.45 (1.8-7.7) 10^3/u L Lymph # (Auto) 1.8 (0.8-4.8) 10^3/u L [place] # (Auto) 0.8 (0.2-0.9) 10^3/u L Eos # (Auto) 0.1 (0.0-0.8) 10^3/u L Baso # (Auto) 0.0 (0.0-0.1) 10^3/u L Nucleated RBC % (a uto) 0 % Nucleated RBCs # 0.0 /100WBC Sodium 125 L (136-145) mmol/L Potassium 2.6 L* (3.5-5.1) mmol/L Chloride 86 L (98-107) mmol/L Carbon Dioxide 30 H (22-29) mmol/L Anion Gap 11.6 (5-19) BUN 5 L (8-23) mg/dL Creatinine 0.4 L (0.5-0.9) mg/dL GFR Calculation 159.7 H (90-130) mL/min Glucose 77 (65-115) mg/dL Calculated Osmolal ity 256 L (285-295) mOsm/k g Lactate (0.5-2.2) mmol/L Calcium 7.2 L (8.5-10.5) mg/dL Total Bilirubin 0.2 (0.15-1.2) mg/dL AST 11 (0-32) U/L ALT 20 (0-33) U/L Alkaline Phosphata se 98 (35-105) IU/L Total Protein 5.6 L (6.6-8.7) g/dL Albumin 2.9 L (3.5-5.2) g/dL Globulin 2.7 (1.3-4.6) g/dL Lipase 7 L (13-60) U/L Urine Color Straw (Yellow) Urine Appearance Clear (CLEAR) Urine pH 6 (5-7) Ur Specific Gravit y 1.005 (1.005-1.030) Urine Protein Neg (Negative) Urine Glucose (UA) Norm (Normal) Urine Ketones Negative (Negative) Urine Blood Neg (Negative) Urine Nitrate Negative (Negative) Urine Bilirubin Neg (Negative) Urine Urobilinogen Norm (Negative) mg/dL Ur Leukocyte Kiara ase Negative (Negative) 07/04/20 Range/Units 12:58 WBC (4.0-10.0) 10^3/ uL RBC (4.1-5.3) 10^6/u L Hgb (11.5-15.3) g/dL Hct (37.0-47.0) % MCV (81-99) fL MCH (28.0-34.0) pg MCHC (30.0-36.0) g/dL RDW (12.1-15.1) % Plt Count (130-400) 10^3/c mm MPV (7.4-10.4) fL Neut % (Auto) % Lymph % (Auto) % [place] % (Auto) % Eos % (Auto) % Baso % (Auto) % Neut # (Auto) (1.8-7.7) 10^3/u L Lymph # (Auto) (0.8-4.8) 10^3/u L [place] # (Auto) (0.2-0.9) 10^3/u L Eos # (Auto) (0.0-0.8) 10^3/u L Baso # (Auto) (0.0-0.1) 10^3/u L Nucleated RBC % (a uto) % Nucleated RBCs # /100WBC Sodium (136-145) mmol/L Potassium (3.5-5.1) mmol/L Chloride (98-107) mmol/L Carbon Dioxide (22-29) mmol/L Anion Gap (5-19) BUN (8-23) mg/dL Creatinine (0.5-0.9) mg/dL GFR Calculation (90-130) mL/min Glucose (65-115) mg/dL Calculated Osmolal ity (285-295) mOsm/k g Lactate 1.7 (0.5-2.2) mmol/L Calcium (8.5-10.5) mg/dL Total Bilirubin (0.15-1.2) mg/dL AST (0-32) U/L ALT (0-33) U/L Alkaline Phosphata se (35-105) IU/L Total Protein (6.6-8.7) g/dL Albumin (3.5-5.2) g/dL Globulin (1.3-4.6) g/dL Lipase (13-60) U/L Urine Color (Yellow) Urine Appearance (CLEAR) Urine pH (5-7) Ur Specific Gravit y (1.005-1.030) Urine Protein (Negative) Urine Glucose (UA) (Normal) Urine Ketones (Negative) Urine Blood (Negative) Urine Nitrate (Negative) Urine Bilirubin (Negative) Urine Urobilinogen (Negative) mg/dL Ur Leukocyte Kiara ase (Negative) Discharge Plan Discharge Patient Disposition: Home Clinical Impression: Acute hypokalemia, Vomiting, Acute neck pain, Hypertension, uncontrolled Condition: Stable Prescriptions: New Klor-Con 20 mEq packet 40 meq PO DAILY Qty: 2 RF: 0 No Action prednisone 1 mg tablet 4 mg PO DAILY Qty: 360 RF: 3 gabapentin 100 mg capsule 200 mg PO TID@09,, RF: 0 venlafaxine 150 mg capsule,extended release 24hr 150 mg PO DAILY@09 Qty: 30 RF: 2 mirtazapine 30 mg tablet 30 mg PO DAILY@20 Qty: 30 RF: 2 atorvastatin 80 mg Tablet 80 mg PO BEDTIME@20 RF: 0 pantoprazole 40 mg Tablet,Delayed Release (Dr/Ec) 40 mg PO DAILY@09 RF: 0 ondansetron HCl 4 mg tablet 4 mg PO DAILY Qty: 7 RF: 0 metoprolol tartrate 100 mg Tablet 50 mg PO BID@00,1999 RF: 0 hydrocodone-acetaminophen 5-325 mg Tablet 1 tab PO Q8H PRN (Reason: Pain) RF: 0 spironolactone 25 mg Tablet 25 mg PO DAILY@0900 RF: 0 Glucerna 1.5 Warner 0.08-1.5 gram-kcal/mL Liquid 5 ea feeding tube DAILY RF: 0 metformin 1,000 mg Tablet 1,000 mg PO BID@, RF: 0 glimepiride 4 mg tablet 4 mg PO DAILY@09 RF: 0 Lantus U-100 Insulin 100 unit/mL Solution 14 unit SUBCUT DAILY@0900 RF: 0 insulin aspart U-100 [Novolog Flexpen U-100 Insulin] 100 unit/mL (3 mL) Insulin Pen See Rx Instructions .ROUTE .COMPLEX RF: 0 aspirin 81 mg Tablet,Delayed Release (Dr/Ec) 81 mg PO DAILY@09 RF: 0 sodium chloride 1 gram tablet 1 g PO BID@, RF: 0 hydralazine 25 mg tablet 25 mg PO BID@, RF: 0 clopidogrel 75 mg tablet 75 mg PO DAILY@09 RF: 0 fludrocortisone 0.1 mg tablet 0.1 mg PO DAILY@09 RF: 0 ondansetron HCl 8 mg Tablet 8 mg PO TID PRN (Reason: Nausea) RF: 0 loperamide 2 mg Tablet 2 - 4 mg PO PRN RF: 0 acetaminophen [Tylenol Extra Strength] 500 mg Tablet 1,000 mg PO Q4H PRN (Reason: Pain) RF: 0 acetaminophen 325 mg Tablet 650 mg PO Q8H PRN (Reason: Pain) Qty: 60 RF: 0 levothyroxine 50 mcg Tablet 50 mcg PO DAILY@0800 Qty: 30 RF: 0 methocarbamol 750 mg tablet 1,500 mg PO TID PRN (Reason: MUSCLE SPASMS) RF: 0 metoclopramide HCl [Reglan] 10 mg tablet 10 mg PO Q6H PRN (Reason: nausea and vomiting) Qty: 20 RF: 0 Discharge Orders: Discharge ED (Routine); Ordered 07/04/20 Ordered By: Ramón Jacobson Referrals: Thu Flores FNP [Primary Care Provider] - Discharge Diet: Advance as tolerated Discharge Activity: Resume usual activity Patient Instructions: Hypokalemia (ED), Cervical Fracture (ED), Hypertension (ED), Opioid Safety Activity Restrictions/Additional Instructions: You came in complaining of vomiting and neck pain. Your pain is better and vomiting has resolved. I have called your nurse practitioner Franca Barajas who is at the office of Dr. Verduzco. She discussed with Dr. Lawson who recommended getting you in for an appointment. They will contact you to set this appointment up. Make sure you follow-up as they have told me they are going to schedule you for surgery. Please return to the ER with worsening symptoms. Also make sure you take your potassium pills one this evening and one tomorrow. Get your blood checked in a couple days to make sure it is improving. Also take your blood pressure medications as directed as your blood pressure was high here. 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
--- NOTE | 2020-07-04 12:06 | CT_ITS ---
WS: [id number] CT ABDOMEN AND PELVIS WITH CONTRAST HISTORY: Abdominal pain with nausea and vomiting. TECHNIQUE: Imaging performed of the abdomen and pelvis with IV contrast. Single phase imaging of the abdomen. Coronal and sagittal reformats are submitted. All CT scans at [facility] use at least one of these dose optimization techniques: automated exposure control; mA and/or kV adjustment per patient size (includes targeted exams where dose is matched to clinical indication); or iterativ e reconstruction. IV CONTRAST: Omnipaque 300; 95 mL IV. Oral contrast: No DLP: 1492.54 mGy.cm COMPARISON: 09/06/2019 Lower thorax: 3 mm nodule at the LEFT lung base unchanged since 09/06/2019. No pneumonia. Heart is nor mal size. No hiatal hernia. Liver/biliary system: Mild hepatomegaly. Hepatic steatosis with normal size. No bile duct dilatation or mass. Gallbladder: Status post cholecystectomy. Pancreas: Normal. Spleen: Normal. Adrenal glands: Normal RIGHT adrenal gland. Stable nodule in the LEFT adrenal gland measures 11 mm. Right kidney: Very mild perinephric stranding. 11 mm cyst in the lower pole is stable. No obstruction or mass. Left kidney: Mild perinephric stranding. No obstruction or mass. Aorta: Moderate atherosclerosis with no aneurysm. Lymphadenopathy: None. Free fluid: None. GI tract: Normal appendix. Mild diffuse constipation and fecal retention. No obstruction. There is a PEG tube present within the stomach. There are a few diverticula in the sigmoid colon. No evidence fo r acute diverticulitis. Abdominal wall: Unremarkable abdominal wall. No hernia. Pelvis: Prior hysterectomy. No pelvic masses. Bones: Advanced degenerative changes in the lumbar spine with degenerative rotoscoliosis and asymmetr ic disc space narrowing. 9 mm anterolisthesis of L5 severe narrowing of the RIGHT hip joint. Muscle a trophy at the pelvis. CT/CT abdomen pelvis w con* [id number] IMPRESSION: 1. No acute abdominal or pelvic abnormalities are identified. 2. PEG tube remains in good position. 3. Mild diffuse constipation. 4. Prior hysterectomy and cholecystectomy. 5. Advanced atherosclerosis aorta.
[2020-07-04] MEDS: ondansetron 2 mg/ML SDV 2 mL 4 MG IVP (12:16)
[2020-07-04] MEDS: sodium chloride 0.9% 1,000 ML 999 ML IV ×2 (12:16→14:03)
[2020-07-04] MEDS: iohexol 300 mg/mL 100 mL Btl IV (12:30)
[2020-07-04 12:35] LABS: Add Urine Microscopic? NO; Charge for UA Resulting for Rev
[2020-07-04 12:44] LABS: Bilirubin Urine Neg (Negative); Blood Urine Neg (Negative); Glucose Urine UA Norm (Normal); Ketones Urine Negative (Negative); Leukocyte Esterase Urine Negative (Negative); Nitrate Urine Negative (Negative); Protein Urine Neg (Negative); Specific Gravity, Urine 1.005 (1.005-1.030); Urine Appearance Clear (CLEAR); Urine Color Straw (Yellow); Urobilinogen Urine Norm (Negative); pH Urine 6 (5-7)
[2020-07-04 13:11] LABS: Basophils % 0.3 %; Eosinophils # 0.1 10^3/uL (0.0-0.8); Eosinophils % 0.7 %; Hematocrit 27.6 % (37.0-47.0); Hemoglobin 9.2 g/dL (11.5-15.3); Lymphocytes # 1.8 10^3/uL (0.8-4.8); Lymphocytes % 19.5 %; Mean Corpuscular HGB Conc 33.3 g/dL (30.0-36.0); Mean Corpuscular Hemoglobin 26.9 pg (28.0-34.0); Mean Corpuscular Volume 80.7 fL (81-99); Mean Platelet Volume 8.8 fL (7.4-10.4); Monocytes # 0.8 10^3/uL (0.2-0.9); Monocytes % 8.5 %; Neutrophils # 6.45 10^3/uL (1.8-7.7); Neutrophils % 70.5 %; Nucleated Red Blood Cells % 0 %; Platelet Count 540 10^3/cmm (130-400); Red Blood Count 3.42 10^6/uL (4.1-5.3); Red Cell Distribution Width 18.6 % (12.1-15.1); White Blood Count 9.2 10^3/uL (4.0-10.0)
[2020-07-04] MEDS: morphine 4 mg/mL SDV 1 mL 2 MG IVP (13:25)
[2020-07-04 13:26] LABS: Lactate (Lactic Acid level) 1.7 mmol/L (0.5-2.2)
[2020-07-04 13:27] LABS: Alanine Aminotransferase 20 U/L (0-33); Albumin Level 2.9 g/dL (3.5-5.2); Alkaline Phosphatase 98 IU/L (35-105); Anion Gap 11.6 (5-19); Aspartate Amino Transferase 11 U/L (0-32); Blood Urea Nitrogen 5 mg/dL (8-23); Calcium 7.2 mg/dL (8.5-10.5); Carbon Dioxide 30 mmol/L (22-29); Chloride 86 mmol/L (98-107); Creatinine Clr Calc Pharmacy 65.2413; Globulin 2.7 g/dL (1.3-4.6); Glomerular Filtration Rate 159.7 mL/min (90-130); Glucose 77 mg/dL (65-115); Lipase 7 U/L (13-60); Osmolality Calculated 256 mOsm/kg (285-295); Sodium 125 mmol/L (136-145); Total Bilirubin 0.2 mg/dL (0.15-1.2); Total Protein 5.6 g/dL (6.6-8.7)
[2020-07-04 13:37] LABS: Potassium 2.6 mmol/L (3.5-5.1)
[2020-07-04] MEDS: lidocaine 1% 5 ML in potassium chloride premix 100 ML 25 ML IV (13:51)
[2020-07-04] MEDS: cloNIDine 0.1 mg Tablet 0.2 MG PO (14:44)
[2020-07-04] MEDS: potassium chloride ER 20 mEq Tablet 40 MEQ PO (16:49)
== END 2020-07-04 17:01 | disposition home or self-care (01) ==
PROVIDERS: Emergency Provider Family Medicine; PCP Nurse Practitioner
DX: E87.6 Hypokalemia (principal); M54.2 Cervicalgia; R11.11 Vomiting without nausea; Z79.02 Long term (current) use of antithrombotics/antiplatelets; Z79.82 Long term (current) use of aspirin; Z79.4 Long term (current) use of insulin; I13.0 Hypertensive heart and chronic kidney disease with heart failure and stage 1 through stage 4 chronic kidney disease, or unspecified chronic kidney disease; E11.22 Type 2 diabetes mellitus with diabetic chronic kidney disease; N18.2 Chronic kidney disease, stage 2 (mild); I50.32 Chronic diastolic (congestive) heart failure; E78.5 Hyperlipidemia, unspecified; F17.210 Nicotine dependence, cigarettes, uncomplicated
CPT/HCPCS: 36415; 74177; 80053; 81003; 83605; 83690; 85025; 96365; 96366; 96375; 99284; J2270; J2405; J3480; J7030; Q9967

== ENCOUNTER 2020-07-07 11:14 | Emergency (ER) | payer OTHER, MEDICARE, SELFPAY ==
[2020-07-07] VITALS (7 sets, daily range): BP systolic 149–182; BP diastolic 97–145; PULSE 84–103; RESP 18–20; TEMP 36.8; O2SAT 91–98; BMI 27.6
--- NOTE | 2020-07-07 11:43 | ED_ITS ---
HPI - Abdominal Pain General: Chief Complaint: Abdominal Pain Stated Complaint: N/V ABD PAIN Time Seen by Provider: 07/07/20 11:27 History of Present Illness: HPI narrative: 65-year-old female presents emergency room was not complaints of anxiety nausea and vomiting abdominal pain. The abdominal pain is chronic splinter multiple times had several imaging. States she is throwing up was pretty much anything she ingests disc her states it is almost immediate. She not had any hematemesis or coffee-ground emesis no diarrhea. No dysuria urgency or frequency. The main reason she came in today was because of her anxiety she said she was told by her doctor that if her anxiety is not improved to go to the emergency room she takes venlafaxine in the morning and mirtazapine at at bedtime. She does have ondansetron and pantoprazole listed in her medicine list but tells me she has not been taking anything for nausea or vomiting at home. She did recently fall and sustained an neck fracture she is a type III dens fracture according to the CT scan done recently she is supposed to see the neurosurgeon in 2 days for planning for definitive treatment. MD elicited complaint: abdominal pain Onset (ago): week(s) Pain Consistency: intermittent Location: Diffuse Severity: mild Quality: cramping Radiation: none Exacerbating factors: eating Relieving factors: nothing Associated Symptoms: Reports bloating, GI cramping, diarrhea, dyspepsia, loose stools, nausea, poor appetite and vomiting; Denies anorexia, belching, change in bowel habits, change in stool character, chills, coffee ground emesis, constipation, dysuria, excessive flatus, fever(s), heartburn, hematochezia, hematuria, hematemesis, fecal incontinence, melena and syncope Treatments prior to arrival: prescription analgesics Review of Systems Const: Denies: fever(s) or chills ENMT: Denies: throat pain, ear or mastoid pain, nasal discharge or nasal congestion Card: Denies: syncope Resp: Denies: dyspnea, productive cough or non-productive cough GI: Reports: nausea, vomiting, diarrhea, bloating and GI cramping; Denies: hematemesis, coffee ground emesis, heartburn, constipation, belching, excessive flatus, fecal incontinence, change in bowel habits, change in stool character, hematochezia or melena : Denies: dysuria or hematuria Skin/Breast: Denies: rash or pruritus PFSH ED PFSH: Medical History Anemia C. 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, recurrent severe without psychotic features Morbid obesity Post-traumatic stress disorder, chronic Surgical History H/O esophagogastroduodenoscopy H/O: hysterectomy History of bunionectomy bilateral Hx of cholecystectomy Status post colonoscopy Family History Mother Hypertension Diabetes Father Hypertension Asthma Other CAD (coronary artery disease) Cancer Denies family history of Anesthesia complication Bleeding disorder Social History Smoking and tobacco status: current every day smoker cigars Cigars smoked per week: 35 Years smoked cigars: 53 Cigar details: 1 PPD Quit status (tobacco): has tried quititng Second hand smoke exposure: Yes Smoking risk assessment/counseling performed?: No Alcohol intake: former Former alcohol use details: Reportedly has not had any alcohol since June Household members: spouse Housing: Manufactured/Mobile home Marital status: Current occupational status: retired History of recent travel: No Physical Exam Const: COMMON NORMALS: no acute distress GENERAL APPEARANCE: cooperative and comfortable ORIENTATION/CONSCIOUSNESS: Yes awake, Yes oriented to person, Yes oriented to place and Yes oriented to time HENMT: COMMON NORMALS: normocephalic, atraumatic and hearing grossly normal bilaterally HEAD & SCALP: normocephalic and atraumatic Neck/C-Spine: COMMON NORMALS: no JVD Resp: COMMON NORMALS: normal respiratory effort, No retractions, No use of accessory muscles and clear to auscultation bilaterally AUSCULTATION: clear to auscultation bilaterally Cardio: COMMON NORMALS: no JVD, regular rate, regular rhythm and No murmurs present (Cardio) RATE: regular rate RHYTHM: regular rhythm GI: COMMON NORMALS: Soft to palpation and No hepatosplenomegaly present AUSCULTATION: Yes normoactive bowel sounds PALPATION: Yes Soft to palpation, Yes Tenderness to palpation present (GI) (Diffuse nonspecific no peritoneal signs), No Guarding due to palpation present (GI) and Yes No hepatosplenomegaly present Extremity: COMMON NORMALS: normal to inspection, capillary refill normal, no clubbing, cyanosis or edema, no calf tenderness and no pedal edema Neuro: SENSORIUM/ORIENTATION: Yes oriented to person, Yes oriented to place and Yes oriented to time Skin: COMMON NORMALS: no rashes or lesions noted GENERAL SKIN EXAM: no rashes or lesions noted Course Vital Signs: Vital signs: Vital Signs Temperature 98.2 F 07/07/20 11:19 Pulse Rate 103 H 07/07/20 14:47 Respiratory Rate 20 H 07/07/20 13:41 Blood Pressure 149/97 07/07/20 14:47 Pulse Oximetry 91 07/07/20 14:47 MDM - Abdominal Pain MDM Narrative: Medical decision making narrative: Multiple times for not able to obtain IV access. Laboratory tests reviewed with the patient does not show significant signs of dehydration. Vital signs are stable. Patient states she is feeling better after medications are going to go ahead and discharge her home. Use Ativan or promethazine as needed follow-up as needed return if has further problems Lab Data: Labs: Lab Results 07/07/20 07/07/20 Range/Units 12:50 12:50 WBC 9.7 (4.0-10.0) 10^3/ uL RBC 3.57 L (4.1-5.3) 10^6/u L Hgb 9.9 L (11.5-15.3) g/dL Hct 30.0 L (37.0-47.0) % MCV 84.0 (81-99) fL MCH 27.7 L (28.0-34.0) pg MCHC 33.0 (30.0-36.0) g/dL RDW 19.3 H (12.1-15.1) % Plt Count 712 H (130-400) 10^3/c mm MPV 9.0 (7.4-10.4) fL Neut % (Auto) 64.5 % Lymph % (Auto) 25.0 % [place] % (Auto) 8.8 % Eos % (Auto) 0.8 % Baso % (Auto) 0.4 % Neut # (Auto) 6.22 (1.8-7.7) 10^3/u L Lymph # (Auto) 2.4 (0.8-4.8) 10^3/u L [place] # (Auto) 0.9 (0.2-0.9) 10^3/u L Eos # (Auto) 0.1 (0.0-0.8) 10^3/u L Baso # (Auto) 0.0 (0.0-0.1) 10^3/u L Nucleated RBC % (a uto) 0 % Nucleated RBCs # 0.0 /100WBC Sodium 133 L (136-145) mmol/L Potassium 4.2 (3.5-5.1) mmol/L Chloride 93 L (98-107) mmol/L Carbon Dioxide 30 H (22-29) mmol/L Anion Gap 14.2 (5-19) BUN 6 L (8-23) mg/dL Creatinine 0.6 (0.5-0.9) mg/dL GFR Calculation 100.0 (90-130) mL/min Glucose 73 (65-115) mg/dL Calculated Osmolal ity 272 L (285-295) mOsm/k g Calcium 7.8 L (8.5-10.5) mg/dL Total Bilirubin 0.2 (0.15-1.2) mg/dL AST 23 (0-32) U/L ALT 18 (0-33) U/L Alkaline Phosphata se 109 H (35-105) IU/L Total Protein 5.7 L (6.6-8.7) g/dL Albumin 3.1 L (3.5-5.2) g/dL Globulin 2.6 (1.3-4.6) g/dL Lipase 10 L (13-60) U/L Discharge Plan Discharge Patient Disposition: Home Clinical Impression: Nausea & vomiting, Anxiety, C2 cervical fracture, Morbid obesity, Insulin dependent type 2 diabetes mellitus, Hypertension, CKD (chronic kidney disease), stage II Condition: Stable Prescriptions: New Ativan 1 mg tablet 1 mg PO TID PRN (Reason: anxiety) Qty: 14 RF: 0 promethazine 25 mg tablet 25 mg PO Q6H PRN (Reason: nausea and vomiting) Qty: 14 RF: 0 No Action prednisone 1 mg tablet 4 mg PO DAILY Qty: 360 RF: 3 gabapentin 100 mg capsule 200 mg PO TID@,, RF: 0 venlafaxine 150 mg capsule,extended release 24hr 150 mg PO DAILY@09 Qty: 30 RF: 2 mirtazapine 30 mg tablet 30 mg PO DAILY@20 Qty: 30 RF: 2 atorvastatin 80 mg Tablet 80 mg PO BEDTIME@20 RF: 0 pantoprazole 40 mg Tablet,Delayed Release (Dr/Ec) 40 mg PO DAILY@09 RF: 0 ondansetron HCl 4 mg tablet 4 mg PO DAILY Qty: 7 RF: 0 metoprolol tartrate 100 mg Tablet 50 mg PO BID@00,1999 RF: 0 hydrocodone-acetaminophen 5-325 mg Tablet 1 tab PO Q8H PRN (Reason: Pain) RF: 0 spironolactone 25 mg Tablet 25 mg PO DAILY@0900 RF: 0 Glucerna 1.5 Warner 0.08-1.5 gram-kcal/mL Liquid 5 ea feeding tube DAILY RF: 0 Klor-Con 20 mEq packet 40 meq PO DAILY Qty: 2 RF: 0 metformin 1,000 mg Tablet 1,000 mg PO BID@, RF: 0 glimepiride 4 mg tablet 4 mg PO DAILY@ RF: 0 Lantus U-100 Insulin 100 unit/mL Solution 14 unit SUBCUT DAILY@00 RF: 0 insulin aspart U-100 [Novolog Flexpen U-100 Insulin] 100 unit/mL (3 mL) Insulin Pen See Rx Instructions .ROUTE .COMPLEX RF: 0 aspirin 81 mg Tablet,Delayed Release (Dr/Ec) 81 mg PO DAILY@09 RF: 0 sodium chloride 1 gram tablet 1 g PO BID@, RF: 0 hydralazine 25 mg tablet 25 mg PO BID@, RF: 0 clopidogrel 75 mg tablet 75 mg PO DAILY@ RF: 0 fludrocortisone 0.1 mg tablet 0.1 mg PO DAILY@ RF: 0 ondansetron HCl 8 mg Tablet 8 mg PO TID PRN (Reason: Nausea) RF: 0 loperamide 2 mg Tablet 2 - 4 mg PO PRN RF: 0 acetaminophen [Tylenol Extra Strength] 500 mg Tablet 1,000 mg PO Q4H PRN (Reason: Pain) RF: 0 acetaminophen 325 mg Tablet 650 mg PO Q8H PRN (Reason: Pain) Qty: 60 RF: 0 levothyroxine 50 mcg Tablet 50 mcg PO DAILY@0800 Qty: 30 RF: 0 methocarbamol 750 mg tablet 1,500 mg PO TID PRN (Reason: MUSCLE SPASMS) RF: 0 metoclopramide HCl [Reglan] 10 mg tablet 10 mg PO Q6H PRN (Reason: nausea and vomiting) Qty: 20 RF: 0 Discharge Orders: Discharge ED (Routine); Ordered 07/07/20 Ordered By: Darek Barahona Referrals: Thu Flores FNP [Primary Care Provider] - Discharge Diet: Clear Liquid Patient Instructions: Opioid Safety Activity Restrictions/Additional Instructions: Use promethazine instead of ondansetron for nausea and vomiting. You may use Ativan as needed as prescribed today. Follow-up with your primary care doctor in [facility] next week. Keep scheduled appointment with neurosurgery as well. Coding Level of Care Code ED Meter Reader Inspector for Navid Fwd Exam Comprehensive
[2020-07-07] MEDS: hyDROXYzine 25 mg Capsule PO (12:29)
[2020-07-07 13:12] LABS: Basophils % 0.4 %; Eosinophils # 0.1 10^3/uL (0.0-0.8); Eosinophils % 0.8 %; Hemoglobin 9.9 g/dL (11.5-15.3); Lymphocytes # 2.4 10^3/uL (0.8-4.8); Mean Corpuscular Hemoglobin 27.7 pg (28.0-34.0); Monocytes # 0.9 10^3/uL (0.2-0.9); Monocytes % 8.8 %; Neutrophils # 6.22 10^3/uL (1.8-7.7); Neutrophils % 64.5 %; Nucleated Red Blood Cells % 0 %; Platelet Count 712 10^3/cmm (130-400); Red Blood Count 3.57 10^6/uL (4.1-5.3); Red Cell Distribution Width 19.3 % (12.1-15.1); White Blood Count 9.7 10^3/uL (4.0-10.0)
[2020-07-07 13:39] LABS: Alanine Aminotransferase 18 U/L (0-33); Albumin Level 3.1 g/dL (3.5-5.2); Alkaline Phosphatase 109 IU/L (35-105); Blood Urea Nitrogen 6 mg/dL (8-23); Calcium 7.8 mg/dL (8.5-10.5); Carbon Dioxide 30 mmol/L (22-29); Chloride 93 mmol/L (98-107); Creatinine Clr Calc Pharmacy 65.2413; Globulin 2.6 g/dL (1.3-4.6); Glucose 73 mg/dL (65-115); Lipase 10 U/L (13-60); Osmolality Calculated 272 mOsm/kg (285-295); Sodium 133 mmol/L (136-145); Total Bilirubin 0.2 mg/dL (0.15-1.2); Total Protein 5.7 g/dL (6.6-8.7)
[2020-07-07] MEDS: morphine 4 mg/mL SDV 1 mL IM (13:41)
[2020-07-07 13:43] LABS: Anion Gap 14.2 (5-19); Aspartate Amino Transferase 23 U/L (0-32); Potassium 4.2 mmol/L (3.5-5.1)
[2020-07-07] MEDS: cloNIDine 0.1 mg Tablet PO (14:13)
== END 2020-07-07 14:48 | disposition home or self-care (01) ==
PROVIDERS: Emergency Provider Family Medicine; PCP Nurse Practitioner
DX: R11.2 Nausea with vomiting, unspecified (principal); F41.9 Anxiety disorder, unspecified; S12.101A Unspecified nondisplaced fracture of second cervical vertebra, initial encounter for closed fracture; E66.01 Morbid (severe) obesity due to excess calories; E11.22 Type 2 diabetes mellitus with diabetic chronic kidney disease; I13.0 Hypertensive heart and chronic kidney disease with heart failure and stage 1 through stage 4 chronic kidney disease, or unspecified chronic kidney disease; N18.2 Chronic kidney disease, stage 2 (mild); I50.32 Chronic diastolic (congestive) heart failure; Z79.02 Long term (current) use of antithrombotics/antiplatelets; Z79.82 Long term (current) use of aspirin; Z79.4 Long term (current) use of insulin; E78.5 Hyperlipidemia, unspecified; F17.210 Nicotine dependence, cigarettes, uncomplicated
CPT/HCPCS: 80053; 83690; 85025; 96372; 99283; J2270

== ENCOUNTER → 2020-07-10 15:14 | Outpatient (BNVA) | payer OTHER, MEDICARE, SELFPAY | PROVIDERS: PCP Nurse Practitioner; Visit Provider Psychiatry & Neurology Psychiatry | DX: F41.1 Generalized anxiety disorder (principal); F33.2 Major depressive disorder, recurrent severe without psychotic features; F43.12 Post-traumatic stress disorder, chronic | CPT/HCPCS: 99213 ==

== ENCOUNTER 2020-07-11 22:32 | Inpatient (IN) | payer OTHER, MEDICARE, SELFPAY ==
[2020-07-11 22:33] VITALS: BP 163/81; PULSE 93; RESP 18; TEMP 36; O2SAT 93; BMI 34.3
--- NOTE | 2020-07-11 22:38 | W.ED.AMS ---
HPI - Altered Mental Status General: Chief Complaint: General Medical Stated Complaint: low blood sugar Time Seen by Provider: 07/11/20 22:33 Source: patient and EMS Mode of arrival: EMS Limitations: no limitations History of Present Illness: HPI narrative: 65-year-old female is well-known to the ED. Patient states she is getting weak called EMS when EMS arrived her blood sugar was in the 40s. Per EMS they state they ran on her multiple times this week with low blood sugars. She is on insulin Lantus and glimepiride. She denies any symptoms besides feeling weak. Patient was given orange juice and glucose tabs and her blood sugar is now 93. Associated symptoms: Deny depression Review of Systems Const: Denies: fever(s), chills, body aches or change in appetite Eyes: Denies: blurry vision or eye discomfort ENMT: Denies: throat pain or dental pain Card: Denies: chest pain Resp: Denies: dyspnea GI: Denies: abdominal pain, nausea, vomiting or diarrhea : Denies: dysuria Musc: Denies: neck pain or back pain Skin/Breast: Denies: rash Neuro: Reports: confusion Psych: Denies: depression Jeremiah/Lymph: Denies: easy bruising All/Imm: Denies: urticaria PFSH ED PFSH: Medical History Anemia C. 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, recurrent severe without psychotic features Morbid obesity Post-traumatic stress disorder, chronic Surgical History H/O esophagogastroduodenoscopy H/O: hysterectomy History of bunionectomy bilateral Hx of cholecystectomy Status post colonoscopy Family History Mother Hypertension Diabetes Father Hypertension Asthma Other CAD (coronary artery disease) Cancer Denies family history of Anesthesia complication Bleeding disorder Social History Smoking and tobacco status: current every day smoker cigars Cigars smoked per week: 35 Years smoked cigars: 53 Cigar details: 1 PPD Quit status (tobacco): has tried quititng Second hand smoke exposure: Yes Smoking risk assessment/counseling performed?: No Alcohol intake: former Former alcohol use details: Reportedly has not had any alcohol since June Household members: spouse Housing: Manufactured/Mobile home Marital status: Current occupational status: retired History of recent travel: No Physical Exam Const: COMMON NORMALS: no acute distress and patient oriented x3 GENERAL APPEARANCE: disheveled HENMT: COMMON NORMALS: normocephalic and atraumatic HEAD & SCALP: normocephalic and atraumatic Eye: COMMON NORMALS: Equal, round and reactive pupils present and EOMs intact bilaterally PUPIL: Yes Equal, round and reactive pupils present Neck/C-Spine: COMMON NORMALS: full ROM and supple Chest: COMMONS NORMALS: normal inspection of the chest and normal palpation of entire chest wall Resp: COMMON NORMALS: normal respiratory effort, No retractions, No use of accessory muscles and clear to auscultation bilaterally AUSCULTATION: clear to auscultation bilaterally Cardio: COMMON NORMALS: regular rate, regular rhythm and No murmurs present (Cardio) RATE: regular rate RHYTHM: regular rhythm GI: COMMON NORMALS: Normal to inspection, nondistended, normoactive bowel sounds present, Soft to palpation, non-tender and no masses PALPATION: Yes Soft to palpation Extremity: COMMON NORMALS: normal to inspection and full ROM Neuro: COMMON NORMALS: patient oriented x3, moves all extremities and no focal motor deficits Psych: COMMON NORMALS: mental status grossly normal, Normal thought process present and cooperative THOUGHT PROCESS: Normal thought process present Skin: COMMON NORMALS: no rashes or lesions noted and no wounds GENERAL SKIN EXAM: no rashes or lesions noted Course Vital Signs: Vital signs: Vital Signs Temperature 96.8 F L 07/11/20 22:33 Pulse Rate 98 07/12/20 00:43 Respiratory Rate 20 H 07/12/20 00:43 Blood Pressure 133/82 07/12/20 00:43 Pulse Oximetry 95 07/12/20 00:43 MDM - Altered Mental Status MDM Narrative: Medical decision making narrative: Patient presents here with hypoglycemia. Patient's blood sugars here have normalized but she is found to be hyponatremic. She could have adrenal insufficiency as well as she did not take her prednisone today. I spoke to hospitalist yoni admit for hyponatremia. Patient also likely needs some med adjustment and could need her glimepiride stopped. Lab Data: Labs: Lab Results 07/11/20 07/11/20 07/11/20 Range/Units 22:37 23:31 23:46 WBC 14.8 H (4.0-10.0) 10^3/ uL RBC 2.94 L (4.1-5.3) 10^6/u L Hgb 8.2 L (11.5-15.3) g/dL Hct 24.1 L (37.0-47.0) % MCV 82.0 (81-99) fL MCH 27.9 L (28.0-34.0) pg MCHC 34.0 (30.0-36.0) g/dL RDW 17.4 H (12.1-15.1) % Plt Count 555 H (130-400) 10^3/c mm MPV 9.0 (7.4-10.4) fL Neut % (Auto) 79.5 % Lymph % (Auto) 12.5 % [place] % (Auto) 7.1 % Eos % (Auto) 0.1 % Baso % (Auto) 0.2 % Neut # (Auto) 11.75 H (1.8-7.7) 10^3/u L Lymph # (Auto) 1.9 (0.8-4.8) 10^3/u L [place] # (Auto) 1.1 H (0.2-0.9) 10^3/u L Eos # (Auto) 0.0 (0.0-0.8) 10^3/u L Baso # (Auto) 0.0 (0.0-0.1) 10^3/u L Nucleated RBC % (a uto) 0 % Nucleated RBCs # 0.0 /100WBC Sodium (136-145) mmol/L Potassium (3.5-5.1) mmol/L Chloride (98-107) mmol/L Carbon Dioxide (22-29) mmol/L Anion Gap (5-19) BUN (8-23) mg/dL Creatinine (0.5-0.9) mg/dL GFR Calculation (90-130) mL/min Glucose (65-115) mg/dL POC Glucose 83 111 H (70-110) mg/dL Calculated Osmolal ity (285-295) mOsm/k g Calcium (8.5-10.5) mg/dL 07/11/20 Range/Units 23:46 WBC (4.0-10.0) 10^3/ uL RBC (4.1-5.3) 10^6/u L Hgb (11.5-15.3) g/dL Hct (37.0-47.0) % MCV (81-99) fL MCH (28.0-34.0) pg MCHC (30.0-36.0) g/dL RDW (12.1-15.1) % Plt Count (130-400) 10^3/c mm MPV (7.4-10.4) fL Neut % (Auto) % Lymph % (Auto) % [place] % (Auto) % Eos % (Auto) % Baso % (Auto) % Neut # (Auto) (1.8-7.7) 10^3/u L Lymph # (Auto) (0.8-4.8) 10^3/u L [place] # (Auto) (0.2-0.9) 10^3/u L Eos # (Auto) (0.0-0.8) 10^3/u L Baso # (Auto) (0.0-0.1) 10^3/u L Nucleated RBC % (a uto) % Nucleated RBCs # /100WBC Sodium 119 L* (136-145) mmol/L Potassium 3.7 (3.5-5.1) mmol/L Chloride 78 L (98-107) mmol/L Carbon Dioxide 29 (22-29) mmol/L Anion Gap 15.7 (5-19) BUN 9 (8-23) mg/dL Creatinine 0.6 (0.5-0.9) mg/dL GFR Calculation 100.0 (90-130) mL/min Glucose 77 (65-115) mg/dL POC Glucose (70-110) mg/dL Calculated Osmolal ity 245 L (285-295) mOsm/k g Calcium 7.7 L (8.5-10.5) mg/dL Discharge Plan Discharge Admit Provider: Sammy Evans Coding Level of Care Code ED Manufacturing Executive for Chg Fwd Exam Comprehensive
[2020-07-11 22:41] LABS: Glucose Point of Care 83 mg/dL (70-110)
[2020-07-11 23:13] VITALS: BP 116/80; RESP 24; O2SAT 97
[2020-07-11 23:35] LABS: Glucose Point of Care 111 mg/dL (70-110)
[2020-07-11 23:43] VITALS: BP 163/81; RESP 22; O2SAT 97
[2020-07-11 23:50] LABS: Basophils % 0.2 %; Eosinophils % 0.1 %; Hematocrit 24.1 % (37.0-47.0); Hemoglobin 8.2 g/dL (11.5-15.3); Lymphocytes # 1.9 10^3/uL (0.8-4.8); Lymphocytes % 12.5 %; Mean Corpuscular Hemoglobin 27.9 pg (28.0-34.0); Monocytes # 1.1 10^3/uL (0.2-0.9); Monocytes % 7.1 %; Neutrophils # 11.75 10^3/uL (1.8-7.7); Neutrophils % 79.5 %; Nucleated Red Blood Cells % 0 %; Platelet Count 555 10^3/cmm (130-400); Red Blood Count 2.94 10^6/uL (4.1-5.3); Red Cell Distribution Width 17.4 % (12.1-15.1); White Blood Count 14.8 10^3/uL (4.0-10.0)
[2020-07-12] VITALS (211 sets, daily range): BP systolic 94–194; BP diastolic 58–119; PULSE 66–125; RESP 12–41; TEMP 36–37.2; O2SAT 87–100; BMI 29.0
[2020-07-12 00:10] LABS: Anion Gap 15.7 (5-19); Blood Urea Nitrogen 9 mg/dL (8-23); Calcium 7.7 mg/dL (8.5-10.5); Carbon Dioxide 29 mmol/L (22-29); Chloride 78 mmol/L (98-107); Glucose 77 mg/dL (65-115); Osmolality Calculated 245 mOsm/kg (285-295); Potassium 3.7 mmol/L (3.5-5.1)
[2020-07-12 00:11] LABS: Sodium 119 mmol/L (136-145)
[2020-07-12] MEDS: sodium chloride 0.9% 1,000 ML 999 ML IV (00:50)
--- NOTE | 2020-07-12 01:09 | XR_ITS ---
WS: [id number] Portable AP supine chest, 07/12/2020 Clinical Data: ?aspiration, ?PNA Comparison: Portable chest, 05/20/2020. Findings: No nodules, masses or effusions are seen. The heart is slightly enlarged. The pulmonary vas cularity is not increased. No pneumonia or pneumothorax is seen. The aortic arch and descending aorta show tortuosity. There is a monitor over the midportion of the chest. XR/XR chest 1V portable [id number] Impression: Atherosclerosis.
--- NOTE | 2020-07-12 01:17 | PM.HP ---
Providers/Chief Complaint Admitting Physician: Sammy Evans Primary Care Provider: KATRINA Cash Chief Complaint: low blood sugar History of Present Illness Ingris Mendosa is a 65 year old female with extensive past medical history including insulin-dependent diabetes, hypertension, dyslipidemia, neuropathy, hypothyroidism, gastroparesis, chronic adrenal insufficiency, chronic hyponatremia, CHF, CKD, CVA, recent fall resulting in C-spine fracture managed conservatively who is brought by EMS to emergency room due to hypoglycemia. EMS was called by the due to altered mental status and possible convulsions. This lasted several minutes. The patient was confused after that with decreased responsiveness. Evaluation by EMS revealed hypoglycemia. Blood sugar was in 40s. [place] juice was given through the PEG tube. The patient experienced multiple episodes of vomiting since yesterday. She was unable to keep anything down and she would vomit every time she would eat something. She however was given her morning medications today. According to her the patient did not have any fevers or chills, diarrhea, hematemesis or rectal blood, abdominal pain, chest pain, cough, shortness of breath. Emergency room the patient is found to have hypoglycemia. Her sodium is decreased from her chronic baseline level. A febrile but has mild leukocytosis. Review of Systems General: Reports: ROS unobtainable due to medical condition Medications/Allergies Home Medications Medication Instructions Recorded Confirmed Last Taken Type atorvastatin 80 mg PO BEDTIME@04/09/19 07/10/20 07/04/20 History pantoprazole 40 mg PO DAILY@04/09/19 07/10/20 07/03/20 History glimepiride 4 mg PO DAILY@02/06/20 07/10/20 07/03/20 History metformin 1,000 mg PO BID@02/06/20 07/10/20 07/03/20 History Lantus U-100 Insulin 14 unit SUBCUT DAILY@89902/22/20 07/10/20 07/03/20 History insulin aspart U-100 [Novolog See Rx Instructions .ROUTE .COMPLEX 02/22/20 07/10/20 03/06/20 History Flexpen U-100 Insulin] aspirin 81 mg PO DAILY@03/06/20 07/10/20 07/03/20 History clopidogrel 75 mg PO DAILY@03/06/20 07/10/2007/03/21 History fludrocortisone 0.1 mg PO DAILY@03/06/20 07/10/20 07/03/20 History hydralazine 25 mg PO BID@03/06/20 07/10/20 07/03/20 History sodium chloride 1 g PO BID@03/06/20 07/10/20 07/03/20 History acetaminophen [Tylenol Extra 1,000 mg PO Q4H PRN 05/21/20 07/10/20 06/27/20 History Strength] loperamide 2 - 4 mg PO PRN 05/21/20 07/10/20 Unknown History acetaminophen 650 mg PO Q8H PRN #60 tab 05/23/20 07/10/20 07/03/20 Rx levothyroxine 50 mcg PO DAILY@0800 #30 tab 05/23/20 07/10/20 07/03/20 Rx gabapentin 100 mg capsule 200 mg PO TID@,, cap 06/12/20 07/10/20 07/03/20 History prednisone 1 mg tablet 4 mg PO DAILY #360 tab 06/12/20 07/10/20 07/03/20 Rx venlafaxine 150 mg 150 mg PO DAILY@09 #30 cap 06/13/20 07/10/20 07/03/20 Rx capsule,extended release 24 hr methocarbamol 1,500 mg PO TID PRN 06/27/20 07/10/20 07/03/20 History metoclopramide HCl [Reglan] 10 mg PO Q6H PRN #20 tab 06/27/20 07/10/20 07/03/20 Rx metoprolol tartrate 50 mg PO BID@09,199907/04/20 07/10/20 07/03/20 History nut.tx.gluc intol,lf,soy-fiber 5 ea FEEDING TUBE DAILY 07/04/20 07/10/20 07/03/20 History [Glucerna 1.5 Warner] spironolactone 25 mg PO DAILY@0900 07/04/20 07/04/20 07/03/20 History promethazine 25 mg PO Q6H PRN #14 tab 07/07/20 07/10/20 Unknown Rx hydrocodone 10 mg-acetaminophen 1 tab PO Q8H PRN 07/10/20 07/10/20 Unknown History 325 mg tablet trazodone 100 mg tablet 100 mg PO .HS PRN #60 tab 07/10/20 07/10/20 Unknown Rx Allergies Allergy/AdvReac Type Severity Reaction Status Date / Time No Known Allergies Allergy Verified 07/07/20 11:24 PFSH Acute PFSH: Medical History Anemia C. 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, recurrent severe without psychotic features Morbid obesity Post-traumatic stress disorder, chronic Surgical History H/O esophagogastroduodenoscopy H/O: hysterectomy History of bunionectomy bilateral Hx of cholecystectomy Status post colonoscopy Family History Mother Hypertension Diabetes Father Hypertension Asthma Other CAD (coronary artery disease) Cancer Denies family history of Anesthesia complication Bleeding disorder Social History Smoking and tobacco status: current every day smoker cigars Cigars smoked per week: 35 Years smoked cigars: 53 Cigar details: 1 PPD Quit status (tobacco): has tried quititng Second hand smoke exposure: Yes Smoking risk assessment/counseling performed?: No Alcohol intake: former Former alcohol use details: Reportedly has not had any alcohol since June Household members: spouse Housing: Manufactured/Mobile home Marital status: Current occupational status: retired History of recent travel: No Vitals/I&O/Wt Last Vital Signs Temp 96.8 F L 07/11/20 22:33 Pulse 98 07/12/20 00:43 Resp 20 H 07/12/20 00:43 BP 133/82 07/12/20 00:43 Pulse Ox 95 07/12/20 00:43 Weight last 48 hrs Weight 90.718 kg Physical Exam Narrative: EXAM NARRATIVE: The patient is very lethargic but arousable. She follows instructions adequately. Currently no acute distress. Sleeping with snoring and apneic episodes. No seizures. Eyes PERRL, extraocular muscles are intact Skin is warm and dry. Moist mucous membranes Lungs are clear. No respiratory distress Heart S1, S2, regular Abdomen soft, nontender, bowel sounds are present Extremities trace edema. No cyanosis or calf tenderness bilaterally. Neuro examination is nonfocal. Speech is slurry but no dysarthria or aphasia. Data : 07/11/20 23:46 07/11/20 23:46 Other Labs: Laboratory Results WBC 14.8 10^3/uL (4.0-10.0) H 07/11/20 23:46 RBC 2.94 10^6/uL (4.1-5.3) L 07/11/20 23:46 Hgb 8.2 g/dL (11.5-15.3) L 07/11/20 23:46 Hct 24.1 % (37.0-47.0) L 07/11/20 23:46 MCV 82.0 fL (81-99) 07/11/20 23:46 MCH 27.9 pg (28.0-34.0) L 07/11/20 23:46 MCHC 34.0 g/dL (30.0-36.0) 07/11/20 23:46 RDW 17.4 % (12.1-15.1) H 07/11/20 23:46 Plt Count 555 10^3/cmm (130-400) H 07/11/20 23:46 MPV 9.0 fL (7.4-10.4) 07/11/20 23:46 Neut % (Auto) 79.5 % 07/11/20 23:46 Lymph % (Auto) 12.5 % 07/11/20 23:46 [place]ug[place] % (Auto) 7.1 % 07/11/20 23:46 Eos % (Auto) 0.1 % 07/11/20 23:46 Baso % (Auto) 0.2 % 07/11/20 23:46 Neut # (Auto) 11.75 10^3/uL (1.8-7.7) H 07/11/20 23:46 Lymph # (Auto) 1.9 10^3/uL (0.8-4.8) 07/11/20 23:46 [place]ug[place] # (Auto) 1.1 10^3/uL (0.2-0.9) H 07/11/20 23:46 Eos # (Auto) 0.0 10^3/uL (0.0-0.8) 07/11/20 23:46 Baso # (Auto) 0.0 10^3/uL (0.0-0.1) 07/11/20 23:46 Nucleated RBC % (auto) 0 % 07/11/20 23:46 Nucleated RBCs # 0.0 /100WBC 07/11/20 23:46 Sodium 119 mmol/L (136-145) L* 07/11/20 23:46 Potassium 3.7 mmol/L (3.5-5.1) 07/11/20 23:46 Chloride 78 mmol/L (98-107) L 07/11/20 23:46 Carbon Dioxide 29 mmol/L (22-29) 07/11/20 23:46 Anion Gap 15.7 (5-19) 07/11/20 23:46 BUN 9 mg/dL (8-23) 07/11/20 23:46 Creatinine 0.6 mg/dL (0.5-0.9) 07/11/20 23:46 GFR Calculation 100.0 mL/min (90-130) 07/11/20 23:46 Glucose 77 mg/dL (65-115) 07/11/20 23:46 POC Glucose 111 mg/dL (70-110) H 07/11/20 23:31 Calculated Osmolality 245 mOsm/kg (285-295) L 07/11/20 23:46 Calcium 7.7 mg/dL (8.5-10.5) L 07/11/20 23:46 A&P Additional A&P Information Ingris Mendosa is a 65 year old female with extensive past medical history including insulin-dependent diabetes, hypertension, dyslipidemia, neuropathy, hypothyroidism, gastroparesis, chronic adrenal insufficiency, chronic hyponatremia, CHF, CKD, CVA, recent fall resulting in C-spine fracture managed conservatively who is brought by EMS to emergency room due to hypoglycemia. The patient also has hyponatremia. Acute hypoglycemic episode. Probably it is multifactorial. I suspect that adrenal insufficiency is contributing. She probably did not keep her medications down this morning. Additionally she was given Lantus and her diabetes medication. Decreased oral intake probably due to dysphagia, possible gastroparesis. She is being admitted to ICU. We will hold her diabetes medications. We will check her blood sugar level every 2 hours. I will order D5 NS. We will use hypoglycemia protocol if she develops new hypoglycemic episodes. Convulsions. Hypoglycemic seizures are suspected. Will manage with maintaining her glycemia level. Will order as needed lorazepam. Altered mental status. Probably acute metabolic encephalopathy. Postictal state is also possible. Hyponatremia. Could be due to worsening adrenal insufficiency on top of chronic hyponatremia. SIADH work-up. We will hydrate her and monitor chemistry panel every 4 hours. Adrenal insufficiency. I will check her random cortisol level. Will order dexamethasone until we have more information and are able to resume her oral prednisone. Anemia. Microcytic. We will check fecal occult blood. We will monitor her H&H. Further work-up can be considered inpatient or outpatient. GI prophylaxis. Famotidine. History of heart disease. We will continue her home aspirin and Plavix. DVT prophylaxis. Teds and SCDs. No additional anticoagulation because she is already on dual antiplatelet therapy and is anemic. History of hypothyroidism. We will check her TSH level. CODE STATUS. She is full code according to her . The plan of care was discussed with the . He verbalized understanding and agreement. Critical care time spent on this encounter is 55 minutes. Attestations Medical Necessity Statement*: Based on my assessment of patient's current condition and presenting problems she will require more than 2 midnights in the hospital. Coding Level of Care Code Acute Prosthodontist/Educator for Navid Simons
[2020-07-12 02:28] LABS: Anion Gap 9.2 (5-19); Blood Urea Nitrogen 7 mg/dL (8-23); Calcium 7.3 mg/dL (8.5-10.5); Carbon Dioxide 31 mmol/L (22-29); Chloride 81 mmol/L (98-107); Glomerular Filtration Rate 123.4 mL/min (90-130); Glucose 54 mg/dL (65-115); Osmolality Calculated 242 mOsm/kg (285-295); Potassium 3.2 mmol/L (3.5-5.1); Thyroid Stimulating Hormone 1.09 uIU/mL (0.27-4.20)
[2020-07-12 02:29] LABS: Sodium 118 mmol/L (136-145)
[2020-07-12 02:48] LABS: Cortisol Random 18.14 ug/dL (2.47-19.5)
[2020-07-12] MEDS: dextrose 5%-sod chloride 0.9% 1,000 ML 75 ML IV (02:58)
[2020-07-12] MEDS: famotidine 20 mg/2 mL INJ IVP (03:00)
[2020-07-12] MEDS: dexamethasone 4 mg/mL INJ IVP ×3 (03:00→16:58)
[2020-07-12] MEDS: hyDRALAzine 20 mg/mL INJ 1 mL 10 MG IVP (03:18)
[2020-07-12 03:30] LABS: Add Urine Microscopic? NO; Charge for UA Resulting for Rev
[2020-07-12] MEDS: dextrose 50% syringe 50 mL (03:34)
[2020-07-12 03:41] LABS: Bilirubin Urine Neg (Negative); Blood Urine Neg (Negative); Glucose Urine UA Norm (Normal); Ketones Urine Negative (Negative); Leukocyte Esterase Urine Negative (Negative); Nitrate Urine Negative (Negative); Protein Urine Neg (Negative); Specific Gravity, Urine 1.005 (1.005-1.030); Urine Appearance Clear (CLEAR); Urine Color Yellow (Yellow); Urobilinogen Urine Norm (Negative); pH Urine 6 (5-7)
[2020-07-12 03:52] LABS: Urine Random Sodium 20 mmol/L
[2020-07-12 05:30] LABS: Glucose Point of Care 192 mg/dL (70-110)
[2020-07-12 05:30] LABS: Glucose Point of Care 57 mg/dL (70-110)
[2020-07-12 05:30] LABS: Glucose Point of Care 187 mg/dL (70-110)
[2020-07-12 05:30] LABS: Glucose Point of Care 177 mg/dL (70-110)
[2020-07-12 05:30] LABS: Glucose Point of Care 47 mg/dL (70-110)
[2020-07-12 05:30] LABS: Glucose Point of Care 64 mg/dL (70-110)
--- NOTE | 2020-07-12 05:43 | PC.NURSE ---
New Orders; T/O given by MD Nathan for IVP Hydralazine PRN for SBP >160. Adult Hypoglycemia/D50 protocol to be used as indicated for hypoglycemia events. New orders for PICC line insertion, based on poor peripheral IV access and continued need for frequent followup lab work.
[2020-07-12 05:45] LABS: Basophils % 0.2 %; Eosinophils % 0.2 %; Hematocrit 21.7 % (37.0-47.0); Hemoglobin 7.4 g/dL (11.5-15.3); Lymphocytes # 0.8 10^3/uL (0.8-4.8); Lymphocytes % 6.3 %; Mean Corpuscular HGB Conc 34.1 g/dL (30.0-36.0); Mean Corpuscular Hemoglobin 27.7 pg (28.0-34.0); Mean Corpuscular Volume 81.3 fL (81-99); Mean Platelet Volume 9.8 fL (7.4-10.4); Monocytes # 0.6 10^3/uL (0.2-0.9); Monocytes % 4.5 %; Neutrophils # 11.04 10^3/uL (1.8-7.7); Neutrophils % 88.3 %; Nucleated Red Blood Cells % 0 %; Platelet Count 442 10^3/cmm (130-400); Red Blood Count 2.67 10^6/uL (4.1-5.3); Red Cell Distribution Width 17.6 % (12.1-15.1); White Blood Count 12.5 10^3/uL (4.0-10.0)
[2020-07-12 06:17] LABS: Slide Review Slide Review Perform
--- NOTE | 2020-07-12 07:48 | P.CONIM_ITS ---
Providers/Reason For Consult Consulting Physican/Specialty*: Everton Rachel MD Reason for Consult*: hyponatremia, hypokalemia Attending Physician: Sammy Evans Primary Care Provider: KATRINA Cash History of Present Illness History of Present Illness Ingris Mendosa is a 65 year old female w/ h/o IDDM, HTN, Hyperlipidemia, hypothyroidism. chronic adrenal insufficiency, chronic hyponatremia, CHF, CVA, recent fall w/ C- spine fx. h/o c diff colitis. Pt was admitted for AMS and hypoglycemia. She was found also to have hyponatremia and hypokalemia. 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 Pt has a PEG, as hse aspirated in past. + diarrhea Review of Systems General: Reports: 10 or more systems reviewed and unremarkable except in HPI and below Narrative: weak, thirsty, n/v, AMS, hypoglycemia, lethargy, confusion. Meds/Allergies Home Medications and Allergies Home Medications Medication Instructions Recorded Confirmed Last Taken Type atorvastatin 80 mg PO BEDTIME@04/09/19 07/10/20 07/04/20 History pantoprazole 40 mg PO DAILY@04/09/19 07/10/20 07/03/20 History glimepiride 4 mg PO DAILY@02/06/20 07/10/20 07/03/20 History metformin 1,000 mg PO BID@02/06/20 07/10/20 07/03/20 History Lantus U-100 Insulin 14 unit SUBCUT DAILY@0900 02/22/20 07/10/20 07/03/20 History insulin aspart U-100 [Novolog See Rx Instructions .ROUTE .COMPLEX 02/22/20 07/10/20 03/06/20 History Flexpen U-100 Insulin] aspirin 81 mg PO DAILY@03/06/20 07/10/20 07/03/20 History clopidogrel 75 mg PO DAILY@03/06/20 07/10/20 07/03/20 History fludrocortisone 0.1 mg PO DAILY@03/06/20 07/10/20 07/03/20 History hydralazine 25 mg PO BID@03/06/20 07/10/20 07/03/20 History sodium chloride 1 g PO BID@09,03/06/20 07/10/20 07/03/20 History acetaminophen [Tylenol Extra 1,000 mg PO Q4H PRN 05/21/20 07/10/20 06/27/20 History Strength] loperamide 2 - 4 mg PO PRN 05/21/20 07/10/20 Unknown History acetaminophen 650 mg PO Q8H PRN #60 tab 05/23/20 07/10/20 07/03/20 Rx levothyroxine 50 mcg PO DAILY@0800 #30 tab 05/23/20 07/10/20 07/03/20 Rx gabapentin 100 mg capsule 200 mg PO TID@,, cap 06/12/20 07/10/20 07/03/20 History prednisone 1 mg tablet 4 mg PO DAILY #360 tab 06/12/20 07/10/20 07/03/20 Rx venlafaxine 150 mg 150 mg PO DAILY@09 #30 cap 06/13/20 07/10/20 07/03/20 Rx capsule,extended release 24 hr methocarbamol 1,500 mg PO TID PRN 06/27/20 07/10/20 07/03/20 History metoclopramide HCl [Reglan] 10 mg PO Q6H PRN #20 tab 06/27/20 07/10/20 07/03/20 Rx metoprolol tartrate 50 mg PO BID@0900,199907/04/20 07/10/20 07/03/20 History nut.tx.gluc intol,lf,soy-fiber 5 ea FEEDING TUBE DAILY 07/04/20 07/10/20 07/03/20 History [Glucerna 1.5 Warner] spironolactone 25 mg PO DAILY@0900 07/04/20 07/04/20 07/03/20 History promethazine 25 mg PO Q6H PRN #14 tab 07/07/20 07/10/20 Unknown Rx hydrocodone 10 mg-acetaminophen 1 tab PO Q8H PRN 07/10/20 07/10/20 Unknown History 325 mg tablet trazodone 100 mg tablet 100 mg PO .HS PRN #60 tab 07/10/20 07/10/20 Unknown Rx Allergies Allergy/AdvReac Type Severity Reaction Status Date / Time No Known Allergies Allergy Verified 07/07/20 11:24 Current Medications Current Medications Generic Name Dose Route Start Last Admin Trade Name Freq PRN Reason Stop Dose Admin Dexamethasone 4 mg 07/12/20 01:45 07/12/20 03:00 Dexamethasone 4 Mg/Ml Inj IVP 4 mg Q8H MICHELLE Administration Famotidine 20 mg 07/12/20 01:15 07/12/20 03:00 Famotidine 20 Mg/2 Ml Inj IVP 20 mg Q12H MICHELLE Administration Hydralazine HCl 10 mg 07/12/20 02:55 07/12/20 03:18 Hydralazine 20 Mg/Ml Inj 1 Ml IVP 10 mg Q4H PRN Administration HYPERTENSION PFSH Acute PFSH: Medical History Anemia C. 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, recurrent severe without psychotic features Morbid obesity Post-traumatic stress disorder, chronic Surgical History H/O esophagogastroduodenoscopy H/O: hysterectomy History of bunionectomy bilateral Hx of cholecystectomy Status post colonoscopy Family History Mother Hypertension Diabetes Father Hypertension Asthma Other CAD (coronary artery disease) Cancer Denies family history of Anesthesia complication Bleeding disorder Social History Smoking and tobacco status: current every day smoker cigars Cigars smoked per week: 35 Years smoked cigars: 53 Cigar details: 1 PPD Quit status (tobacco): has tried quititng Second hand smoke exposure: Yes Smoking risk assessment/counseling performed?: No Alcohol intake: former Former alcohol use details: Reportedly has not had any alcohol since June Household members: spouse Housing: Manufactured/Mobile home Marital status: Current occupational status: retired History of recent travel: No Vitals/I&O/Wt Last Vital Signs Temp 97.0 F L 07/12/20 06:05 Pulse 85 07/12/20 06:50 Resp 19 H 07/12/20 06:05 BP 162/85 07/12/20 06:05 Pulse Ox 97 07/12/20 06:05 07/11/20 07/12/20 07/12/20 22:59 06:59 14:59 Intake Total 1000 / 1000 Output Total 1949 / 1949 Balance -950 / -950 Weight last 48 hrs Weight 76.856 kg Weight 90.718 kg Physical Exam Narrative: EXAM NARRATIVE: obese, NARD, VS noted, BP elevated heent- c-spine collar, anicteric neck- c- spine collar lung cta b/l heart reg, +S1, s2 abd soft, nt, nd, +BS, +PEG ext no edema neuro-a,a, o x 2+ Urinary Catheter Management^: Magana: Cath Placed During This Visit: yes Reason for Continuing Indwelling Catheter: Accurate Measurement of Urinary Output in Critically Ill Patients Urinary Catheter Date of Insertion: 07/12/20 Urinary Catheter Time of Insertion: 05:18 A&P Additional A&P Information 65 yr old female 1. hyponatremia- Pt has had multiple admissions for hyponatremia that improve quickly off of aldactone and w/ IVF -her urine SG is 1.005, ur na is 20. While pt denies drinking a lot of water. her urine na and osm is low -pt is currently on D5W- will change to D5ns -monitor chemistries q 6 hrs -free water restrict -glucose control per medicine -normal TSH -of note, thep t was seen last month by Dr. Raji Aguilar of [facility] - who feels that her hyponatremia is more like euvolemic hyponatremia, in the past it was thought to be related to psychogenic polydipsia at times, however she is adamant that she has not taken more than 1800 cc as prescribed, and as inpatient she was kept on fluid restrictions and her serum sodium fluctuated between 124-1 29 so I do not think that psychogenic polydipsia is playing a significant role currently. -Endocrine is concerned for adrenal insufficiency and has given prednisone. However, her cortisol levels have been between 2- 20+ if adrenal insufficiency, i would expect a high ur na and osm and a low BP. she is currently hypertensive- however, she is on florinef -for now, will give ns ivf and monitor. -defer florinef and prednisone to endocrine 2. DM control 3. hypokalemia- on florinef- can cause hypokalemia. also has diarrhea 4. bicarb 31- can be contraction alkalosis, or she can have hypercapneic resp acidosis- will monitor. consider ABG 5. diarrhea- agree w/ stool for c diff seen and examined w/ RN- telehealth visit- time spent seiing pt, chart review, coordinating care= 1 hr Consult Attestations Medical Necessity Statement: hyponatremia, hypoglycemia Time Spent in Patient Care: Greater than 35 minutes Coding Level of Care Code Acute Chemistry Intern for Navid Simons
[2020-07-12] MEDS: potassium chloride oral liq 20 mEq/15 mL UDC 40 MEQ PO (08:51)
[2020-07-12] MEDS: levothyroxine 50 mcg Tablet PO (08:52)
[2020-07-12] MEDS: sodium chloride 1 gm Tablet PO ×2 (08:52→20:17)
[2020-07-12] MEDS: fludrocortisone 0.1 mg Tablet PO (08:52)
[2020-07-12] MEDS: aspirin 81 mg EC Tablet PO (08:52)
[2020-07-12] MEDS: dextrose 5%-sod chloride 0.9% 1,000 ML 100 ML IV (08:54)
[2020-07-12] MEDS: pantoprazole 40 mg SDV IVP ×2 (08:59→20:17)
--- NOTE | 2020-07-12 09:01 | PC.CHAP ---
Pastoral Care Encounter/Spiritual Assessment Type of Contact [] Declined sheeter helper visit [] Patient/Family/Request visit [] Outpatient visit [] Follow-up visit [] Physician referral [] Code/Alert [x] Routine visit [] Staff referral [] Actively dying [x] Patient sleeping [] Family support [] [] Out of room [] Palliative care [] [] Receiving care in room [] Pre-surgical visit [] Trauma [] Long length of stay [x] ICU visit [] Other: Relational/Emotional Strength [] Patient feels connected with others/family/visitors/staff [] Distress [] Loneliness/isolation [] Abandonment Spirituality of Patient [] Person of [place] [] Attends Jehov[employer] Witness of their [place] [] Believes in Prayer [] Reads Bible or Religion materials [] There are Spiritual issues to be addressed Executive Candidate Developer Interventions [x] Prayer [] Active listening [] Non-anxious presence [] Spiritual/emotional support [] Crisis/trauma care [] Spiritual counseling [] Bereavement support [] Provided bereavement packet [] Provided Bible/devotional materials [] Provided toy/stuffed animal, coloring book to patient or family member [] Provided Communion [] Anointing/Reading [] Salvation [x] Completed spiritual assessment [] Other: Impact on Illness or Injury [] Angry [] Fearful [] Anxious [] Often cries [] Exhaustion [] Unable to work [] Unable to attend rastafarian [] Unable to walk/stand [] Unable to read [] Unable to drive [] Unable to eat/drink [] Unable to sleep [] Unable to be with family [] Patient intubated [] Other: Summary Time spent with patient
[2020-07-12 09:14] LABS: ABG PCO2 38.4 mmHg (35-45); Base Excess ABG 11.8 mmol/L (-2.0-2.0); Blood Gas Operator Identificat GD; Blood Gas Sample Site Brachial, right; Blood Gas Sample Type Arterial; HCO3 ABG 34.9 mmol/L (22-26); Oxygen Device ROOM AIR; PO2 ABG 84.1 mmHg (80.0-100.0)
[2020-07-12 09:15] LABS: ABG PH Result 7.57 (7.35-7.45)
--- NOTE | 2020-07-12 10:19 | PC.NUTR ---
Addendum entered by Tapan Shelton 07/12/20 10:24: Modified to increase every 8 hours. Tube feeding consult: Recommend initiate Glucerna 1.2 via PEG at 10 ml/hr, increasing by 10 ml q 8 hours until goal rate of 55 ml/hr. Recommend 30 ml H20 Flushes q 4 hours. TF at goal to provide 1584 kcal, 79 g protein, and 1243 ml H2O (from formula and flushes). Monitor for tolerance. Recommend adjust D5W/NS per MD discretion with hyponatremia. Original Note: Tube feeding consult: Recommend initiate Glucerna 1.2 via PEG at 10 ml/hr, increasing by 10 ml q 6 hours until goal rate of 55 ml/hr. Recommend 30 ml H20 Flushes q 4 hours. TF at goal to provide 1584 kcal, 79 g protein, and 1243 ml H2O (from formula and flushes). Monitor for tolerance. Recommend adjust D5W/NS per MD discretion with hyponatremia.
[2020-07-12 11:14] LABS: Glucose Point of Care 230 mg/dL (70-110)
--- NOTE | 2020-07-12 11:33 | PM.PN ---
Subjective Subjective: Interval history: Patient was examined this morning, she tells me that for the last few days she just has not been feeling well, has been having some abdominal discomfort, she is just not able to swallow things she tells me, she denies drinking a lot of fluid, she has been taking all her medications as prescribed, no recent fevers, chills, no cough, she is telling that she feels a lot better, she has not been taking more insulin than prescribed, but her appetite has significantly declined with her abdominal discomfort and trouble swallowing Vitals/I&O/Wt Last Vital Signs Temp 97.0 F L 07/12/20 06:05 Pulse 100 07/12/20 10:05 Resp 14 07/12/20 10:05 BP 139/83 07/12/20 10:05 Pulse Ox 100 07/12/20 10:05 07/11/20 07/12/20 07/12/20 22:59 06:59 14:59 Intake Total 1000 / 1000 Output Total 1950 / 1950 Balance -950 / -950 Weight last 48 hrs Weight 76.856 kg Weight 90.718 kg Physical Exam Narrative: EXAM NARRATIVE: Patient is in a cervical collar Const: COMMON NORMALS: patient oriented x3 HENMT: COMMON NORMALS: normocephalic HEAD & SCALP: normocephalic Neck/C-Spine: COMMON NORMALS: no JVD Resp: COMMON NORMALS: normal respiratory effort, No retractions, No use of accessory muscles and clear to auscultation bilaterally AUSCULTATION: clear to auscultation bilaterally Cardio: COMMON NORMALS: no JVD, regular rate, regular rhythm, S1 normal heart sound present and S2 normal heart sound present RATE: regular rate HEART SOUNDS: S1 normal heart sound present and S2 normal heart sound present GI: COMMON NORMALS: Normal to inspection, nondistended, normoactive bowel sounds present, Soft to palpation and non-tender PALPATION: Yes Soft to palpation Extremity: NARRATIVE EXTREMITY EXAM: 1+ edema Neuro: COMMON NORMALS: patient oriented x3, CN's II-XII intact bilaterally, moves all extremities and no focal motor deficits Urinary Catheter Management^: Magana: Cath Placed During This Visit: yes Reason for Continuing Indwelling Catheter: Accurate Measurement of Urinary Output in Critically Ill Patients Urinary Catheter Date of Insertion: 07/12/20 Urinary Catheter Time of Insertion: 05:18 Data : 07/12/20 05:40 07/12/20 01:56 A&P Assessment and plan (1) Chronic hyponatremia: -Acute on chronic hyponatremia -Has a year-long history of admissions for nausea, vomiting, hyponatremia -Etiology in the past has been a 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 Aguilar felt that patient likely had a euvolemic hyponatremia, was not convinced that hyponatremia was secondary to adrenal insufficiency -Patient is adamant that she is compliant with the prednisone, Florinef, sodium chloride -During her inpatient admissions she does improve quickly with IV fluids Plan: -Monitor serum sodium -Currently on D5 normal saline -BMP every 6 hours -Fluid restrictions 1500 cc - For now continue prednisone, Florinef, I have left a message for Dr. Aguilar to discuss case with her -It certainly possible that patient's nausea/vomiting could be related to recurrent aspiration from her prior CVA, resulting in poor appetite, and hyperglycemia, she is not very enthusiastic about using her PEG tube Status: Acute (2) C2 cervical fracture: -Had a fall on 07/04/2020 - Type III dens fracture with slight retrolisthesis of the distal dens on the body of C2 measuring 3 mm. Fracture widening measures approximately 4.7 mm. C1-2 articulation is maintained. No significant callus formation. -Currently being managed with a cervical collar -She was supposed to follow-up with orthopedic surgeon for possible surgical intervention, however has not followed up as of yet -Continue to manage conservatively, will need to follow-up Status: Acute (3) Nausea & vomiting: -Patient has had a chronic history of nausea and vomiting -Is on Reglan for diabetic gastroparesis, to my knowledge has not ever had a gastric emptying study -Has had a barium swallow in March 2020 which showed Small to moderate amount of active aspiration with thin and thick liquids. This elicited a cough reflex. -Modified barium swallow in January 2020: 1. No sign of aspiration. 2. The patient experienced penetration into the laryngeal inlet when ingesting thin liquid and nectar consistency barium foodstuffs. 3. Retention of solid mixture barium foodstuffs into the vallecula which could be cleared. -Has had EGDs and colonoscopies in the past which were unrevealing -Has had C. difficile diarrhea -Has a PEG tube in place, for history of CVA, with residual dysphagia, requiring PEG tube placement, currently on soft mechanical diet -We will have speech therapy reevaluate patient - I do not believe that she is adhering to the soft mechanical diet Status: Acute (4) Metabolic alkalosis: -Has primary metabolic alkalosis, with secondary respiratory alkalosis -Has a chronic history of this -Likely multifactorial from contraction alkalosis, hyperventilation due to anxiety, steroids Status: Acute (5) Anemia: -Acute anemia, hemoglobin 7.4 -Has a past medical history of anemia -No bloody or black stools reported, no hematemesis -Has had EGDs showed gastritis and colonoscopies in the past Plan: -Monitor hemoglobin hold Plavix no cardiovascular history that I can see, no recent history of stent placement, on Plavix because of CVA -Continue aspirin 81 mg -Monitor hemoglobin -Hemoccult stool -Protonix 40 IV twice daily, Carafate -Monitor for bloody black stool Status: Acute (6) Hypoglycemia due to type 2 diabetes mellitus: -Likely secondary to nausea vomiting poor appetite -In addition likely secondary to glimepiride, which I would recommend to discontinue on discharge -Is on Lantus 14 units subcu daily Plan: -Obtain hemoglobin A1c -For now low-dose sliding scale -Soft mechanical diet Status: Acute (7) Seizure due to hypoglycemia: -Currently no seizures Status: Acute (8) Altered mental status: -Likely secondary to hypoglycemia, hyponatremia -Now resolved, alert oriented x3, answering all questions appropriately Status: Acute (9) Adrenal insufficiency: -Diagnosis is in question? -Still on prednisone 4 mg daily, fludrocortisone, salt tablets -With persistent admissions for hyponatremia -Patient advises compliance with medications Status: Acute (10) Diastolic heart failure: -No complaints of shortness of breath -Monitor for fluid overload Status: Acute Qualifiers: Heart failure chronicity: acute on chronic Qualified Code(s): I50.33 - Acute on chronic diastolic (congestive) heart failure (11) CKD (chronic kidney disease), stage II: Status: Acute (12) GERD (gastroesophageal reflux disease): Status: Chronic Qualifiers: Esophagitis presence: esophagitis presence not specified Qualified Code(s): K21.9 - Gastro-esophageal reflux disease without esophagitis (13) Hyperlipidemia: Status: Chronic Qualifiers: Hyperlipidemia type: unspecified Qualified Code(s): E78.5 - Hyperlipidemia, unspecified (14) Hypertension: Status: Chronic (15) Morbid obesity: Status: Acute (16) Insulin dependent type 2 diabetes mellitus: Status: Chronic (17) Hypothyroidism: TSH within normal limits, continue levothyroxine Status: Acute Qualifiers: Hypothyroidism type: unspecified Qualified Code(s): E03.9 - Hypothyroidism, unspecified Additional A&P Information Ingris Mendosa is a 65 year old female with extensive past medical history including insulin-dependent diabetes, hypertension, dyslipidemia, neuropathy, hypothyroidism, gastroparesis, chronic adrenal insufficiency, chronic hyponatremia, CHF, CKD, CVA, recent fall resulting in C-spine fracture managed conservatively who is brought by EMS to emergency room due to hypoglycemia. The patient also has hyponatremia. DVT prophylaxis. Teds and SCDs. CODE STATUS. She is full code according to her . The plan of care was discussed with the . He verbalized understanding and agreement. Critical care time spent over 55 minutes Attestations Medical Necessity Statement*: Patient requires hospitalization, inpatient, greater than 2 minutes, for acute on chronic hyponatremia, anemia, altered mental status, hypoglycemia Coding Level of Care Code Acute Equipment Washer for Chg Fwd Diagnoses Chronic hyponatremia E87.1 C2 cervical fracture S12.100A Nausea & vomiting R11.2 Metabolic alkalosis E87.3 Anemia D64.9 Hypoglycemia due to type 2 diabetes mellitus E11.649 Seizure due to hypoglycemia R56.9; E16.2 Altered mental status R41.82 Adrenal insufficiency E27.40 Diastolic heart failure I50.33 Heart failure chronicity: acute on chronic CKD (chronic kidney disease), stage II N18.2 GERD (gastroesophageal reflux disease) K21.9 Esophagitis presence: esophagitis presence not specified Hyperlipidemia E78.5 Hyperlipidemia type: unspecified Hypertension I10 Morbid obesity E66.01 Insulin dependent type 2 diabetes mellitus E11.9; Z79.4 Hypothyroidism E03.9 Hypothyroidism type: unspecified
[2020-07-12] MEDS: acetaminophen 325 mg Tablet 650 MG PO ×2 (11:47→17:04)
[2020-07-12] MEDS: sucralfate 1 gm Tablet PO ×3 (11:47→20:17)
[2020-07-12] MEDS: HYDROcodone-acetaminophen 10-325 mg Tablet 1 TAB PO ×2 (12:59→20:16)
--- NOTE | 2020-07-12 13:35 | ECG_ITS ---
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 Measurements Intervals [place] Rate: 98 P: 50 WA: 123 QRS: 13 QRSD: 83 T: 34 QT: 381 QTc: 487 Interpretive Statements SINUS RHYTHM Compared to ECG 06/04/2020 21:17:40 Sinus tachycardia no longer present ST (T wave) deviation no longer present Electronically Signed On 07-12-2020 21:48:12 CDT by Quinton Vital M.D. [id number]
[2020-07-12 13:43] LABS: Glucose Point of Care 218 mg/dL (70-110)
--- NOTE | 2020-07-12 13:49 | PC.NURSE ---
Chest Pain At 1335 pt called out for nurse. She immediately complained of left arm pain 10/10 and ask for IM morphine. This nurse applied 2l/nc. Pt sat at 98%. Stat EKG placed and call made to doctor. Pt is running Sinus. BP 120/60. HR is 94. BG is 218. 1338 PT asked for milk. She was educated on not being able to eat or drink until her chest pain is for sure subsided and no further intervention is needed. 1339 Pt is now stating her pain is almost gone. 1341 Pt is resting with eyes closed vital signs stable.
[2020-07-12 14:44] LABS: Hemoglobin 6.7 g/dL (11.5-15.3); Reticulocyte % 3.2 % (0.5-2.0)
--- NOTE | 2020-07-12 14:46 | PC.OT ---
OT EVALUATION ATTEMPTED. PATIENT ALLOWED GATHERING OF INFORMATION BUT REFUSED OOB. AT 2ND ATTEMPT WAS SLEEPING. EVALUATION WILL BE ATTEMPTED AGAIN TOMORROW.
[2020-07-12 14:56] LABS: Hematocrit 19.8 % (37.0-47.0)
[2020-07-12 15:15] LABS: Troponin(5th) Baseline 11 ng/L (0-10)
[2020-07-12 15:21] LABS: Estmated Average Glucose 126
[2020-07-12 15:23] LABS: Procalcitonin 1.17 ng/mL (0-0.5)
[2020-07-12 15:35] LABS: Alanine Aminotransferase 13 U/L (0-33); Albumin Level 2.5 g/dL (3.5-5.2); Alkaline Phosphatase 91 IU/L (35-105); Aspartate Amino Transferase 18 U/L (0-32); Blood Urea Nitrogen 4 mg/dL (8-23); C Reactive Protein 6.9 mg/L (0.0-4.9); Calcium 6.9 mg/dL (8.5-10.5); Carbon Dioxide 24 mmol/L (22-29); Chloride 85 mmol/L (98-107); Globulin 2.4 g/dL (1.3-4.6); Glomerular Filtration Rate 123.4 mL/min (90-130); Glucose 156 mg/dL (65-115); Magnesium 1.2 mg/dL (1.7-2.3); Osmolality Calculated 252 mOsm/kg (285-295); Sodium 121 mmol/L (136-145); Total Bilirubin 0.2 mg/dL (0.15-1.2); Total Protein 4.9 g/dL (6.6-8.7)
[2020-07-12 15:40] LABS: NT Pro B Type Natriuretic Pept 779 pg/mL (0-125)
--- NOTE | 2020-07-12 15:48 | XR_ITS ---
WS: [id number] Portable AP supine chest, 07/12/2020, 1614 hours Clinical Data: PICC placement Comparison: Portable chest, 07/12/2020, 0131 hours Findings: No nodules, masses or effusions are seen. The heart is normal. The pulmonary vascularity is not increased. No pneumonia or pneumothorax is seen. There is a right PICC line ending in the superi or vena cava. There is a monitor device over the central mediastinum. The aortic arch and descending aorta show calcification and tortuosity. Monitor leads are on the chest wall. XR/XR chest 1V portable [id number] Impression: Atherosclerosis.
[2020-07-12 16:21] LABS: Erythrocyte Sedimentation Rate 22 mm/hr (0-15)
[2020-07-12] MEDS: sodium chloride 0.9% 1,000 ML 100 ML IV (16:56)
[2020-07-12 17:15] LABS: Glucose Point of Care 194 mg/dL (70-110)
--- NOTE | 2020-07-12 17:43 | PC.NURSE ---
PICC RIGHT arm ready for use. Primary nurse notified at time of cxr results.
[2020-07-12 18:54] LABS: Hematocrit 19.1 % (37.0-47.0); Hemoglobin 6.2 g/dL (11.5-15.3)
[2020-07-12 19:19] LABS: Troponin 5 2HR 12.79 ng/L (0-10)
[2020-07-12 19:26] LABS: Troponin 5 2HR Delta 1.79 ABS# (0-10)
[2020-07-12 19:38] LABS: Folate Level 9.6 ng/mL (4.8-37.3)
--- NOTE | 2020-07-12 19:40 | ECG_ITS ---
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 Measurements Intervals [place] Rate: 97 P: 67 WA: 132 QRS: 30 QRSD: 87 T: 54 QT: 373 QTc: 476 Interpretive Statements SINUS RHYTHM Compared to ECG 07/12/2020 13:44:34 No significant changes Electronically Signed On 07-12-2020 21:57:56 CDT by Quinton Vital M.D. [email or web address] Industriescas[facility] col[facility] medicineNetsmart Technologies/store/OM/[id number]
[2020-07-12] MEDS: atorvastatin 40 mg Tablet 80 MG PO (20:16)
[2020-07-12 20:48] LABS: Blood Urea Nitrogen 4 mg/dL (8-23); Calcium 6.9 mg/dL (8.5-10.5); Carbon Dioxide 30 mmol/L (22-29); Chloride 86 mmol/L (98-107); Glomerular Filtration Rate 123.4 mL/min (90-130); Glucose 151 mg/dL (65-115); Osmolality Calculated 252 mOsm/kg (285-295); Sodium 121 mmol/L (136-145)
[2020-07-12 20:50] LABS: Troponin 5 6HR 12.46 ng/L (0-10); Troponin 5 6HR Delta 1.46 ng/L (0-12)
[2020-07-12 20:51] LABS: Anion Gap 8.9 (5-19); Potassium 3.9 mmol/L (3.5-5.1)
--- NOTE | 2020-07-12 21:49 | PC.NURSE ---
ASSUMING CARE Patient is resting in bed with at bedside. Patient is alert and oriented x 4 and requesting pain medication. brought in soft C-collar from home that patient wears at night. Patient has normal saline running through right PICC line at 100 mL/hour. Lab called RN to draw labs from PICC line. Labs obtained and taken to lab. PRBC not given on day shift as reported by DEBRA Frausto due to type and screen not being completed.
--- NOTE | 2020-07-12 21:52 | PC.NURSE ---
NEPHROLOGY Dr. Desai states to call him with sodium levels. Called him at 2109 with sodium level of 121 and gave order to repeat BMP with morning labs and to continue with fluids already running.
[2020-07-12 22:14] LABS: Glucose Point of Care 170 mg/dL (70-110)
[2020-07-12 22:56] LABS: Cortisol Random 2.28 ug/dL (2.47-19.5)
[2020-07-12] MEDS: sodium chloride 0.9% (100 ml) 100 ML 50 ML (23:19)
[2020-07-13] VITALS (33 sets, daily range): BP systolic 103–198; BP diastolic 60–135; PULSE 82–127; RESP 12–28; TEMP 35.8–37.3; O2SAT 88–98
[2020-07-13] MEDS: dexamethasone 4 mg/mL INJ IVP (00:50)
[2020-07-13] MEDS: LORazepam 2 mg/mL INJ 1 mL 1 MG IVP ×2 (00:51→08:06)
[2020-07-13] MEDS: morphine 4 mg/mL SDV 1 mL 2 MG IVP ×4 (02:40→22:11)
[2020-07-13] MEDS: hyDRALAzine 20 mg/mL INJ 1 mL 10 MG IVP (03:38)
[2020-07-13 04:13] LABS: Alanine Aminotransferase 13 U/L (0-33); Albumin Level 2.7 g/dL (3.5-5.2); Alkaline Phosphatase 96 IU/L (35-105); Blood Urea Nitrogen 3 mg/dL (8-23); C Reactive Protein 6.1 mg/L (0.0-4.9); Calcium 7.1 mg/dL (8.5-10.5); Carbon Dioxide 31 mmol/L (22-29); Chloride 91 mmol/L (98-107); Globulin 2.5 g/dL (1.3-4.6); Glomerular Filtration Rate 159.7 mL/min (90-130); Glucose 174 mg/dL (65-115); Lactate (Lactic Acid level) 0.7 mmol/L (0.5-2.2); Osmolality Calculated 265 mOsm/kg (285-295); Sodium 127 mmol/L (136-145); Total Bilirubin 0.4 mg/dL (0.15-1.2); Total Protein 5.2 g/dL (6.6-8.7)
[2020-07-13 04:16] LABS: Aspartate Amino Transferase 20 U/L (0-32); Basophils % 0.1 %; Eosinophils % 0.1 %; Hemoglobin 8.5 g/dL (11.5-15.3); Lymphocytes # 0.6 10^3/uL (0.8-4.8); Lymphocytes % 4.2 %; Mean Corpuscular Hemoglobin 28.1 pg (28.0-34.0); Mean Corpuscular Volume 82.5 fL (81-99); Mean Platelet Volume 9.5 fL (7.4-10.4); Monocytes # 0.7 10^3/uL (0.2-0.9); Monocytes % 4.8 %; Neutrophils % 90.4 %; Nucleated Red Blood Cells % 0 %; Platelet Count 503 10^3/cmm (130-400); Red Blood Count 3.03 10^6/uL (4.1-5.3); White Blood Count 13.7 10^3/uL (4.0-10.0)
[2020-07-13 04:22] LABS: NT Pro B Type Natriuretic Pept 551 pg/mL (0-125); Procalcitonin 0.85 ng/mL (0-0.5)
[2020-07-13 04:33] LABS: Magnesium 1.3 mg/dL (1.7-2.3)
--- NOTE | 2020-07-13 05:33 | PC.NURSE ---
PO VANC First dose of PO vanc scheduled for 1899 and given at 2014 due to pharmacy delay. Order is QID but wanting nurse to give again at 2099 as QID schedule normally is. Dori with pharmacy called, and she states that QID needs to stay on its schedule so she would not re-time for 6 hours later, to give 2100 dose late at [id number], so next QID dose is at 0900.
[2020-07-13] MEDS: HYDROcodone-acetaminophen 10-325 mg Tablet 1 TAB PO ×2 (05:43→17:29)
[2020-07-13] MEDS: sucralfate 1 gm Tablet PO ×4 (05:44→20:48)
--- NOTE | 2020-07-13 06:35 | PC.NURSE ---
NEPHRO Dr. Desai called again about sodium this AM. Sodium up to 127, normal saline at 100 mL/hour discontinued. No other new orders at this time.
[2020-07-13 07:38] LABS: Glucose Point of Care 190 mg/dL (70-110)
--- NOTE | 2020-07-13 07:52 | PC.NURSE ---
C/O OF nausea this am but refused to give up coffee at this time .. reached and took it off tray related i will keep my coffee
[2020-07-13] MEDS: fludrocortisone 0.1 mg Tablet PO (08:06)
[2020-07-13] MEDS: levothyroxine 50 mcg Tablet PO (08:06)
[2020-07-13] MEDS: sodium chloride 1 gm Tablet PO ×2 (08:06→20:49)
[2020-07-13] MEDS: aspirin 81 mg EC Tablet PO (08:06)
[2020-07-13] MEDS: pantoprazole 40 mg SDV IVP ×2 (09:17→22:10)
[2020-07-13] MEDS: amlodipine 10 mg Tablet PO (09:17)
[2020-07-13] MEDS: metoprolol tartrate 25 mg Tablet PO ×2 (09:17→20:48)
--- NOTE | 2020-07-13 11:09 | P.PN_ITS ---
Subjective Subjective: Interval history: Patient was observed this morning, according to my observation nursing staff, she has been consuming significant amounts of liquids, she also reports chronic diarrhea, I believe that her hyponatremia is likely multifactorial from chronic and recurrent C. difficile infection, and from psychogenic polydipsia, I went over this with patient, with went over fluid restrictions, she is a bit agitated about her fluid restrictions, but agrees, she is alert oriented x3, follows all commands, she tells me that she has to follow-up an appointment for the orthopedic physician in [place] for her cervical fracture, she does not have any headaches, no blurry vision, no nausea, vomiting, abdominal pain Vitals/I&O/Wt Last Vital Signs Temp 99.2 F 07/13/20 06:00 Pulse 94 07/13/20 10:00 Resp 12 07/13/20 10:00 BP 162/93 07/13/20 10:00 Pulse Ox 95 07/13/20 10:00 07/12/20 07/13/20 07/13/20 22:59 06:59 14:59 Intake Total 2490 / 2490 1570 / 4060 120 / 120 Output Total 1800 / 2350 3275 / 5625 5075 / 5075 Balance 690 / 140 -1705 / -1565 -4955 / -4955 Weight last 48 hrs Weight 77.474 kg Weight 76.856 kg Weight 90.718 kg Physical Exam Narrative: EXAM NARRATIVE: cervical collar in place Const: COMMON NORMALS: no acute distress and patient oriented x3 HENMT: COMMON NORMALS: normocephalic HEAD & SCALP: normocephalic Neck/C-Spine: COMMON NORMALS: no JVD Resp: COMMON NORMALS: normal respiratory effort, No retractions, No use of accessory muscles and clear to auscultation bilaterally AUSCULTATION: clear to auscultation bilaterally Cardio: COMMON NORMALS: no JVD, regular rate, regular rhythm, S1 normal heart sound present and S2 normal heart sound present RATE: regular rate RHYTHM: regular rhythm HEART SOUNDS: S1 normal heart sound present and S2 normal heart sound present GI: COMMON NORMALS: Normal to inspection, nondistended, normoactive bowel sounds present, Soft to palpation, non-tender and No hepatosplenomegaly present PALPATION: Yes Soft to palpation and Yes No hepatosplenomegaly present Extremity: COMMON NORMALS: no pedal edema Neuro: COMMON NORMALS: patient oriented x3 Psych: COMMON NORMALS: mental status grossly normal Skin: NARRATIVE SKIN EXAM: right picc line in place Urinary Catheter Management^: Magana: Cath Placed During This Visit: yes Reason for Continuing Indwelling Catheter: Accurate Measurement of Urinary Output in Critically Ill Patients Urinary Catheter Date of Insertion: 07/12/20 Urinary Catheter Time of Insertion: 05:18 Data : 07/13/20 03:30 07/13/20 03:30 Micro: Microbiology 07/12/20 20:15 Blood Culture - Preliminary Blood SPECIMEN COLLECTED 07/12/20 18:15 Blood Culture - Preliminary Blood SPECIMEN COLLECTED 07/12/20 10:44 C.difficile Toxin B Gene (PCR) - Final Stool Routine Collection A&P Assessment and plan (1) 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 Aguilar felt that patient likely had a euvolemic hyponatremia, was not convinced that hyponatremia was secondary to adrenal insufficiency -Patient is adamant that she is compliant with the prednisone, Florinef, sodium chloride -During her inpatient admissions she does improve quickly with IV fluids Plan: -Monitor serum sodium -Fluids have been discontinued -BMP every 12 hours -Fluid restrictions 1500 cc - For now continue prednisone, Florinef, I have left a message for Dr. Aguilar to discuss case with her Status: Acute (2) C2 cervical fracture: -Had a fall on 07/04/2020 - Type III dens fracture with slight retrolisthesis of the distal dens on the body of C2 measuring 3 mm. Fracture widening measures approximately 4.7 mm. C1-2 articulation is maintained. No significant callus formation. -Currently being managed with a cervical collar -She was supposed to follow-up with orthopedic surgeon for possible surgical intervention, however has not followed up as of yet -Continue to manage conservatively, will need to follow-up Status: Acute (3) Nausea & vomiting: -Patient has had a chronic history of nausea and vomiting -Is on Reglan for diabetic gastroparesis, to my knowledge has not ever had a gastric emptying study -Has had a barium swallow in March 2020 which showed Small to moderate amount of active aspiration with thin and thick liquids. This elicited a cough reflex. -Modified barium swallow in January 2020: 1. No sign of aspiration. 2. The patient experienced penetration into the laryngeal inlet when ingesting t hin liquid and nectar consistency barium foodstuffs. 3. Retention of solid mixture barium foodstuffs into the vallecula which could be cleared. -Has had EGDs and colonoscopies in the past which were unrevealing -Has had C. difficile diarrhea -Has a PEG tube in place, for history of CVA, with residual dysphagia, requiring PEG tube placement, currently on soft mechanical diet -We will have speech therapy reevaluate patient - I do not believe that she is adhering to the soft mechanical diet Status: Acute (4) Metabolic alkalosis: -Has primary metabolic alkalosis, with secondary respiratory alkalosis -Has a chronic history of this -Likely multifactorial from contraction alkalosis, hyperventilation due to anxiety, steroids Status: Acute (5) Anemia: -Acute anemia, hemoglobin 8.5 -Status post 1 unit PRBC -Has a past medical history of anemia -No bloody or black stools reported, no hematemesis -Has had EGDs showed gastritis and colonoscopies in the past Plan: -Monitor hemoglobin hold Plavix no cardiovascular history that I can see, no recent history of stent placement, on Plavix because of CVA -Continue aspirin 81 mg -Monitor hemoglobin -Hemoccult stool -Protonix 40 IV twice daily, Carafate -Monitor for bloody black stool Status: Acute (6) Hypoglycemia due to type 2 diabetes mellitus: -Likely secondary to nausea vomiting poor appetite -In addition likely secondary to glimepiride, which I would recommend to discontinue on discharge -Is on Lantus 14 units subcu daily Plan: -Hemoglobin A1c 6, likely reduced dose of insulin on discharge, likely insulin sliding scale, discontinued glimepiride on discharge -For now low-dose sliding scale -Soft mechanical diet Status: Acute (7) Seizure due to hypoglycemia: -Currently no seizures Status: Acute (8) Altered mental status: -Likely secondary to hypoglycemia, hyponatremia -Now resolved, alert oriented x3, answering all questions appropriately Status: Acute (9) Adrenal insufficiency: -Diagnosis is in question? -Still on prednisone 4 mg daily, fludrocortisone, salt tablets -With persistent admissions for hyponatremia -Patient advises compliance with medications Status: Acute (10) Diastolic heart failure: -No complaints of shortness of breath -Monitor for fluid overload Status: Acute Qualifiers: Heart failure chronicity: acute on chronic Qualified Code(s): I50.33 - Acute on chronic diastolic (congestive) heart failure (11) CKD (chronic kidney disease), stage II: Status: Acute (12) GERD (gastroesophageal reflux disease): Status: Chronic Qualifiers: Esophagitis presence: esophagitis presence not specified Qualified Code(s): K21.9 - Gastro-esophageal reflux disease without esophagitis (13) Hyperlipidemia: Status: Chronic Qualifiers: Hyperlipidemia type: unspecified Qualified Code(s): E78.5 - Hyperlipidemia, unspecified (14) Hypertension: Status: Chronic (15) Morbid obesity: Status: Acute (16) Insulin dependent type 2 diabetes mellitus: Status: Chronic (17) Hypothyroidism: TSH within normal limits, continue levothyroxine Status: Acute Qualifiers: Hypothyroidism type: unspecified Qualified Code(s): E03.9 - Hypothyroidism, unspecified (18) C. difficile diarrhea: On oral vancomycin Status: Acute Additional A&P Information Ingris Mendosa is a 65 year old female with extensive past medical history including insulin-dependent diabetes, hypertension, dyslipidemia, neuropathy, hypothyroidism, gastroparesis, chronic adrenal insufficiency, chronic hyponatremia, CHF, CKD, CVA, recent fall resulting in C-spine fracture managed conservatively who is brought by EMS to emergency room due to hypoglycemia. The patient also has hyponatremia. DVT prophylaxis. Teds and SCDs. CODE STATUS. She is full code according to her . The plan of care was discussed with the . He verbalized understanding and agreement. Critical care time spent over 55 minutes Attestations Medical Necessity Statement*: Patient requires hospitalization for acute on chronic hyponatremia, nausea vomiting, C. difficile diarrhea, anemia Coding Level of Care Code Acute Solar Panel Installation Supervisor for Chg Fwd Exam Comprehensive Diagnoses Chronic hyponatremia E87.1 C2 cervical fracture S12.100A Nausea & vomiting R11.2 Metabolic alkalosis E87.3 Anemia D64.9 Hypoglycemia due to type 2 diabetes mellitus E11.649 Seizure due to hypoglycemia R56.9; E16.2 Altered mental status R41.82 Adrenal insufficiency E27.40 Diastolic heart failure I50.33 Heart failure chronicity: acute on chronic CKD (chronic kidney disease), stage II N18.2 GERD (gastroesophageal reflux disease) K21.9 Esophagitis presence: esophagitis presence not specified Hyperlipidemia E78.5 Hyperlipidemia type: unspecified Hypertension I10 Morbid obesity E66.01 Insulin dependent type 2 diabetes mellitus E11.9; Z79.4 Hypothyroidism E03.9 Hypothyroidism type: unspecified C. difficile diarrhea A04.72
[2020-07-13 12:14] LABS: Glucose Point of Care 114 mg/dL (70-110)
[2020-07-13] MEDS: venlafaxine ER (24HR) 150 mg Capsule PO (12:18)
[2020-07-13] MEDS: gabapentin 100 mg Capsule 200 MG PO ×2 (12:18→22:35)
--- NOTE | 2020-07-13 12:37 | PC.OT ---
OT note: Pt declined therapy earlier today and transferred upstairs. Will attempt tomorrow as able.
--- NOTE | 2020-07-13 12:59 | PM.PN ---
Subjective Subjective: Interval history: On my interview today she was drowsy, she was however comfortable. No other acute issues. Adhering to free water restriction. No extremity edema, shortness of breath or other hypervolemic symptoms. Vitals/I&O/Wt Last Vital Signs Temp 98.3 F 07/13/20 11:25 Pulse 88 07/13/20 11:25 Resp 17 07/13/20 11:25 BP 140/72 07/13/20 11:25 Pulse Ox 95 07/13/20 11:25 07/12/20 07/13/20 07/13/20 22:59 06:59 14:59 Intake Total 2490 / 2490 1570 / 4060 240 / 240 Output Total 1800 / 2350 3275 / 5625 5075 / 5075 Balance 690 / 140 -1705 / -1565 -4835 / -4835 Weight last 48 hrs Weight 77.474 kg Weight 76.856 kg Weight 90.718 kg Physical Exam Narrative: EXAM NARRATIVE: Constitutional: Awake, comfortable HEENT: Wet mucosa, no jvp, non icteric Lungs: Bilaterally clear without discernible wheeze, rales in all lung zones CVS: S1 S2, no murmurs Abdo: Soft, BS ok Ext 4: Minimal edema, peripheral perfusion with no cyanosis Neurological: Grossly non-focal Urinary Catheter Management^: Magana: Cath Placed During This Visit: yes Reason for Continuing Indwelling Catheter: Accurate Measurement of Urinary Output in Critically Ill Patients Urinary Catheter Date of Insertion: 07/12/20 Urinary Catheter Time of Insertion: 05:18 Data : 07/13/20 03:30 07/13/20 03:30 Micro: Microbiology 07/12/20 20:15 Blood Culture - Preliminary Blood SPECIMEN COLLECTED 07/12/20 18:15 Blood Culture - Preliminary Blood SPECIMEN COLLECTED 07/12/20 10:44 C.difficile Toxin B Gene (PCR) - Final Stool Routine Collection A&P Additional A&P Information 1. Euvolemic HypoNatremia Daily urine chemistry is consistent with tea and toast/psychogenic polydipsia physiology and this is not consistent with adrenal insufficiency (this is characterized by low blood pressure, metabolic acidosis, hyperkalemia). Currently sodium levels are improving nicely on combination therapy including free water restriction, salt tablets 1 g twice daily, Florinef. Continue to monitor sodium levels every 12 hours Current rate of ascension is appropriate i.e. no more than 8 a day 2. Hemodynamics Hemodynamics currently acceptable, continue antihypertensive medications. 3. Diarrhea Currently on oral vancomycin for C. difficile. 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
[2020-07-13 15:33] LABS: Osmolality Urine 180 mOsm/kg (50-1200)
[2020-07-13 16:49] LABS: Glucose Point of Care 293 mg/dL (70-110)
--- NOTE | 2020-07-13 17:26 | PC.RESP ---
Smoking Cessation information sent to patient.
[2020-07-13 18:34] LABS: Sodium 129 mmol/L (136-145)
[2020-07-13] MEDS: atorvastatin 40 mg Tablet 80 MG PO (20:48)
[2020-07-13] MEDS: LORazepam 1 mg Tablet PO (20:48)
[2020-07-13 21:23] LABS: Glucose Point of Care 69 mg/dL (70-110)
[2020-07-13 21:23] LABS: Glucose Point of Care 82 mg/dL (70-110)
[2020-07-14] VITALS (7 sets, daily range): BP systolic 129–147; BP diastolic 67–76; PULSE 83–108; RESP 18–20; TEMP 36–36.8; O2SAT 92–98
[2020-07-14 01:17] LABS: Glucose Point of Care 118 mg/dL (70-110)
[2020-07-14] MEDS: HYDROcodone-acetaminophen 10-325 mg Tablet 1 TAB PO (01:40)
[2020-07-14] MEDS: trazodone 100 mg Tablet PO (02:57)
[2020-07-14] MEDS: morphine 4 mg/mL SDV 1 mL 2 MG IVP ×2 (04:52→09:00)
[2020-07-14] MEDS: sucralfate 1 gm Tablet PO ×2 (06:12→11:05)
[2020-07-14 06:54] LABS: Glucose Point of Care 140 mg/dL (70-110)
[2020-07-14 07:36] LABS: Basophils % 0.1 %; Eosinophils # 0.1 10^3/uL (0.0-0.8); Eosinophils % 0.5 %; Hematocrit 24.4 % (37.0-47.0); Hemoglobin 7.9 g/dL (11.5-15.3); Lymphocytes # 3.6 10^3/uL (0.8-4.8); Lymphocytes % 25.4 %; Mean Corpuscular HGB Conc 32.4 g/dL (30.0-36.0); Mean Corpuscular Hemoglobin 27.9 pg (28.0-34.0); Mean Corpuscular Volume 86.2 fL (81-99); Mean Platelet Volume 9.3 fL (7.4-10.4); Monocytes # 1.4 10^3/uL (0.2-0.9); Neutrophils # 8.97 10^3/uL (1.8-7.7); Neutrophils % 63.5 %; Nucleated Red Blood Cells % 0 %; Platelet Count 427 10^3/cmm (130-400); Red Blood Count 2.83 10^6/uL (4.1-5.3); Red Cell Distribution Width 17.5 % (12.1-15.1); White Blood Count 14.1 10^3/uL (4.0-10.0)
[2020-07-14 08:11] LABS: Alanine Aminotransferase 14 U/L (0-33); Albumin Level 2.5 g/dL (3.5-5.2); Alkaline Phosphatase 90 IU/L (35-105); Anion Gap 13.5 (5-19); Aspartate Amino Transferase 16 U/L (0-32); Blood Urea Nitrogen 3 mg/dL (8-23); C Reactive Protein 5.1 mg/L (0.0-4.9); Calcium 6.9 mg/dL (8.5-10.5); Carbon Dioxide 28 mmol/L (22-29); Chloride 94 mmol/L (98-107); Globulin 2.3 g/dL (1.3-4.6); Glomerular Filtration Rate 222.6 mL/min (90-130); Glucose 104 mg/dL (65-115); Magnesium 1.3 mg/dL (1.7-2.3); NT Pro B Type Natriuretic Pept 924 pg/mL (0-125); Osmolality Calculated 271 mOsm/kg (285-295); Phosphorus 2.3 mg/dL (2.5-4.5); Potassium 3.5 mmol/L (3.5-5.1); Sodium 132 mmol/L (136-145); Total Bilirubin 0.3 mg/dL (0.15-1.2); Total Protein 4.8 g/dL (6.6-8.7)
[2020-07-14] MEDS: sodium chloride 1 gm Tablet PO (08:35)
[2020-07-14] MEDS: metoprolol tartrate 25 mg Tablet PO (08:35)
[2020-07-14] MEDS: amlodipine 10 mg Tablet PO (08:35)
[2020-07-14] MEDS: levothyroxine 50 mcg Tablet PO (08:35)
[2020-07-14] MEDS: gabapentin 100 mg Capsule 200 MG PO ×2 (08:35→11:05)
[2020-07-14] MEDS: venlafaxine ER (24HR) 150 mg Capsule PO (08:35)
[2020-07-14] MEDS: aspirin 81 mg EC Tablet PO (08:35)
[2020-07-14] MEDS: pantoprazole 40 mg SDV IVP (08:36)
[2020-07-14] MEDS: fludrocortisone 0.1 mg Tablet PO (08:36)
[2020-07-14] MEDS: LORazepam 1 mg Tablet PO (09:00)
[2020-07-14 09:49] LABS: Sodium 134 mmol/L (136-145)
--- NOTE | 2020-07-14 10:57 | PC.OT ---
Addendum entered by Meagan Rodrigues OT 07/14/20 10:58: Will attempt later today if possible Original Note: Patient declined occupational therapy evaluation this morning, waving therapist off. Stated she was too tired.
[2020-07-14 11:01] LABS: Glucose Point of Care 220 mg/dL (70-110)
--- NOTE | 2020-07-14 12:17 | PM.DCS ---
Discharge Providers Date of Admission: 07/12/20 01:06 Date of Discharge: July 14, 2020 Attending Provider at Admission: Sammy Evans Attending Provider at Discharge: Kurt Zamarripa MD Primary Care Provider: KATRINA Cash Diagnoses at Discharge Discharge Diagnosis (1) Chronic hyponatremia: Status: Acute (2) C2 cervical fracture: Status: Acute (3) Nausea & vomiting: Status: Acute (4) Metabolic alkalosis: Status: Acute (5) Anemia: Status: Acute (6) Hypoglycemia due to type 2 diabetes mellitus: Status: Acute (7) Seizure due to hypoglycemia: Status: Acute (8) Altered mental status: Status: Acute (9) Adrenal insufficiency: Status: Acute (10) Diastolic heart failure: Status: Acute Qualifiers: Heart failure chronicity: acute on chronic Qualified Code(s): I50.33 - Acute on chronic diastolic (congestive) heart failure (11) CKD (chronic kidney disease), stage II: Status: Acute (12) GERD (gastroesophageal reflux disease): Status: Chronic Qualifiers: Esophagitis presence: esophagitis presence not specified Qualified Code(s): K21.9 - Gastro-esophageal reflux disease without esophagitis (13) Hyperlipidemia: Status: Chronic Qualifiers: Hyperlipidemia type: unspecified Qualified Code(s): E78.5 - Hyperlipidemia, unspecified (14) Hypertension: Status: Chronic (15) Morbid obesity: Status: Acute (16) Insulin dependent type 2 diabetes mellitus: Status: Chronic (17) Hypothyroidism: Status: Acute Qualifiers: Hypothyroidism type: unspecified Qualified Code(s): E03.9 - Hypothyroidism, unspecified (18) C. difficile diarrhea: Status: Acute Reason for Visit Reason for Visit: low blood sugar Hospital Course Hospital Course Ingris Mendosa is a 65 year old female with extensive past medical history including insulin-dependent diabetes, hypertension, dyslipidemia, neuropathy, hypothyroidism, gastroparesis, chronic adrenal insufficiency, chronic hyponatremia, CHF, CKD, CVA, recent fall resulting in C-spine fracture managed conservatively who is brought by EMS to emergency room due to hypoglycemia and hypoglycemic seizures, poor appetite. Patient was admitted to [facility] ICU for acute on chronic hyponatremia, hypoglycemia, hypoglycemic seizures, anemia, C. difficile colitis. 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 Aguilar felt that patient likely had a euvolemic hyponatremia, was not convinced that hyponatremia was secondary to adrenal insufficiency -Patient is adamant that she is compliant with the prednisone, Florinef, sodium chloride -During her inpatient admissions she does improve quickly with IV fluids -During her hospital stay she was managed in the ICU, with IV hydration, serum sodiums were monitored, she clinically improved, moved to the general medical floors -I have stressed the importance with patient that a significant component of her hyponatremia psychogenic polydipsia, advised to limit fluid intake at 1.5 L, encouraged Gatorade or Powerade or Pedialyte -Currently has a C. difficile infection resulting in dehydration, which is also an etiology -We will have patient follow-up with endocrinology as outpatient, currently steroids are being weaned -It is very unlikely that the etiology behind her chronic hyponatremia is adrenal insufficiency, hopefully she can be taken off fludrocortisone and steroids soon as she recently had a fall and a cervical fracture C2 cervical fracture: -Had a fall on 07/04/2020 - Type III dens fracture with slight retrolisthesis of the distal dens on the body of C2 measuring 3 mm. Fracture widening measures approximately 4.7 mm. C1-2 articulation is maintained. No significant callus formation. -Currently being managed with a cervical collar -She was supposed to follow-up with orthopedic surgeon for possible surgical intervention, however has not followed up as of yet -Continue to manage conservatively, will need to follow-up Nausea & vomiting: -Patient has had a chronic history of nausea and vomiting -Is on Reglan for diabetic gastroparesis, to my knowledge has not ever had a gastric emptying study -Has had a barium swallow in March 2020 which showed Small to moderate amount of active aspiration with thin and thick liquids. This elicited a cough reflex. -Modified barium swallow in January 2020: 1. No sign of aspiration. 2. The patient experienced penetration into the laryngeal inlet when ingesting thin liquid and nectar consistency barium foodstuffs. 3. Retention of solid mixture barium foodstuffs into the vallecula which could be cleared. -Has had EGDs and colonoscopies in the past which were unrevealing -Has had C. difficile diarrhea -Has a PEG tube in place, for history of CVA, with residual dysphagia, requiring PEG tube placement, currently on soft mechanical diet -Discharged on instructions to continue soft mechanical diet, however monitoring the patient as inpatient, she does not adhere often adhere to her diet recommendations Metabolic alkalosis: -Has primary metabolic alkalosis, with secondary respiratory alkalosis -Has a chronic history of this -Likely multifactorial from contraction alkalosis, hyperventilation due to anxiety, steroids Anemia: -Acute anemia -Status post 1 unit PRBC -Has a past medical history of anemia -No bloody or black stools reported, no hematemesis -Has had EGDs showed gastritis and colonoscopies in the past -Hemoglobin discharge 7.9, no active bleeding, no active hemodynamic compromise, no bloody or black stools - hold Plavix as outpatient until seen by general surgery or primary care, no cardiovascular history that I can see, no recent history of stent placement, on Plavix because of CVA -Follow-up with general surgery in 1 to 2 weeks for EGD -Continue aspirin 81 mg -Monitor hemoglobin as outpatient, recheck CBC in 1 week -Hemoccult stool pending -Discharged on proximal 40 p.o. twice daily with Carafate -Monitor for bloody or black stool, and she will come back to emergency room Hypoglycemia due to type 2 diabetes mellitus: -Likely secondary to nausea vomiting poor appetite, hemoglobin A1c is 6, her inpatient insulin requirements are very minimal to 2 to 8 units of insulin daily -In addition likely secondary to glimepiride, which I discontinued on discharge -For now on a low-dose sliding scale, as she still is on a prednisone taper, likely can be discontinued as outpatient Seizure due to hypoglycemia: -Resolved Altered mental status: -Likely secondary to hypoglycemia, hyponatremia -Now resolved, alert oriented x3, answering all questions appropriately For her C. difficile diarrhea, recurrent C. difficile diarrhea, I have discharged her on a pulsed tapered regimen of p.o. vancomycin Physical Exam Narrative: EXAM NARRATIVE: in a cervical collar Const: COMMON NORMALS: no acute distress and patient oriented x3 HENMT: COMMON NORMALS: normocephalic HEAD & SCALP: normocephalic Neck/C-Spine: COMMON NORMALS: no JVD Resp: COMMON NORMALS: normal respiratory effort, No retractions, No use of accessory muscles and clear to auscultation bilaterally AUSCULTATION: clear to auscultation bilaterally Cardio: COMMON NORMALS: no JVD, regular rate, regular rhythm, S1 normal heart sound present and S2 normal heart sound present RATE: regular rate RHYTHM: regular rhythm HEART SOUNDS: S1 normal heart sound present and S2 normal heart sound present GI: COMMON NORMALS: Normal to inspection, nondistended, normoactive bowel sounds present, Soft to palpation, non-tender, No hepatosplenomegaly present, no masses and no bruits PALPATION: Yes Soft to palpation and Yes No hepatosplenomegaly present Extremity: COMMON NORMALS: capillary refill normal, no clubbing, cyanosis or edema, no calf tenderness and no pedal edema Neuro: COMMON NORMALS: patient oriented x3 Psych: COMMON NORMALS: mental status grossly normal Urinary Catheter Management^: Magana: Cath Placed During This Visit: yes Reason for Continuing Indwelling Catheter: Other Urinary Catheter Date of Insertion: 07/12/20 Urinary Catheter Time of Insertion: 05:18 Discharge Data Data Completed and Pending: Completed Studies During Hospitalization Category Date Time Status CXRP [XR chest 1V portable [id number]] S tat Exams 07/12/20 15:48 Completed XR chest 1V edurado ble [id number] Routine Exams 07/12/20 01:09 Completed Pending at discharge Category Date Time Status Blood Culture Sta t Lab 07/12/20 20:15 Results C Reactive Protei n AM LABS Lab 07/15/20 04:00 Ordered Complete Blood Co unt w/Auto AM LABS Lab 07/15/20 04:00 Ordered Comprehensive Met abolic Panel AM LA BS Lab 07/15/20 04:00 Ordered Lactate (Lactic A juliano level) AM LABS Lab 07/15/20 04:00 Ordered Magnesium AM LABS Lab 07/15/20 04:00 Ordered Magnesium AM LABS Lab 07/15/20 04:00 Ordered Miscellaneous Ayala t Routine Lab 07/12/20 10:44 Received NT Pro B Type Dominga riuretic Pept QAM Lab 07/15/20 06:00 Ordered Phosphorus AM LAB S Lab 07/15/20 04:00 Ordered Phosphorus AM LAB S Lab 07/15/20 04:00 Ordered Prothrombin Time INR AM LABS Lab 07/15/20 04:00 Ordered Sodium BID Lab 07/14/20 18:00 Ordered Sodium BID Lab 07/15/20 09:00 Ordered Sodium BID Lab 07/15/20 18:00 Ordered Sodium BID Lab 07/16/20 09:00 Ordered Labs from last 24 hours 07/14/20 07/14/20 07/14/20 10:55 09:00 06:36 WBC RBC Hgb Hct MCV MCH MCHC RDW Plt Count MPV Neut % (Auto) Lymph % (Auto) [place] % (Auto) Eos % (Auto) Baso % (Auto) Neut # (Auto) Lymph # (Auto) [place] # (Auto) Eos # (Auto) Baso # (Auto) Nucleated RBC % (a uto) Nucleated RBCs # PT INR Sodium 134 L Potassium Chloride Carbon Dioxide Anion Gap BUN Creatinine GFR Calculation Glucose POC Glucose 220 H 140 H Calculated Osmolal ity Lactate Calcium Phosphorus Magnesium Total Bilirubin AST ALT Alkaline Phosphata se C-Reactive Protein NT-Pro-B Natriuret Pep Total Protein Albumin Globulin Urine Osmolality 07/14/20 07/14/20 07/14/20 06:20 06:20 06:20 WBC RBC Hgb Hct MCV MCH MCHC RDW Plt Count MPV Neut % (Auto) Lymph % (Auto) [place] % (Auto) Eos % (Auto) Baso % (Auto) Neut # (Auto) Lymph # (Auto) [place] # (Auto) Eos # (Auto) Baso # (Auto) Nucleated RBC % (a uto) Nucleated RBCs # PT 13.50 INR 1.00 Sodium Potassium Chloride Carbon Dioxide Anion Gap BUN Creatinine GFR Calculation Glucose POC Glucose Calculated Osmolal ity Lactate 1.0 Cancelled Calcium Phosphorus Magnesium Total Bilirubin AST ALT Alkaline Phosphata se C-Reactive Protein NT-Pro-B Natriuret Pep Total Protein Albumin Globulin Urine Osmolality 07/14/20 07/14/20 07/14/20 06:20 06:20 00:24 WBC 14.1 H RBC 2.83 L Hgb 7.9 L Hct 24.4 L MCV 86.2 MCH 27.9 L MCHC 32.4 RDW 17.5 H Plt Count 427 H MPV 9.3 Neut % (Auto) 63.5 Lymph % (Auto) 25.4 [place] % (Auto) 10.0 Eos % (Auto) 0.5 Baso % (Auto) 0.1 Neut # (Auto) 8.97 H Lymph # (Auto) 3.6 [place] # (Auto) 1.4 H Eos # (Auto) 0.1 Baso # (Auto) 0.0 Nucleated RBC % (a uto) 0 Nucleated RBCs # 0.0 PT INR Sodium 132 L Potassium 3.5 Chloride 94 L Carbon Dioxide 28 Anion Gap 13.5 BUN 3 L Creatinine 0.3 L GFR Calculation 222.6 H Glucose 104 POC Glucose 118 H Calculated Osmolal ity 271 L Lactate Calcium 6.9 L Phosphorus 2.3 L Magnesium 1.3 L Total Bilirubin 0.3 AST 16 ALT 14 Alkaline Phosphata se 90 C-Reactive Protein 5.1 H NT-Pro-B Natriuret Pep 924 H Total Protein 4.8 L Albumin 2.5 L Globulin 2.3 Urine Osmolality 07/13/20 07/13/20 07/13/20 21:11 21:10 18:00 WBC RBC Hgb Hct MCV MCH MCHC RDW Plt Count MPV Neut % (Auto) Lymph % (Auto) [place] % (Auto) Eos % (Auto) Baso % (Auto) Neut # (Auto) Lymph # (Auto) [place] # (Auto) Eos # (Auto) Baso # (Auto) Nucleated RBC % (a uto) Nucleated RBCs # PT INR Sodium 129 L Potassium Chloride Carbon Dioxide Anion Gap BUN Creatinine GFR Calculation Glucose POC Glucose 82 69 L Calculated Osmolal ity Lactate Calcium Phosphorus Magnesium Total Bilirubin AST ALT Alkaline Phosphata se C-Reactive Protein NT-Pro-B Natriuret Pep Total Protein Albumin Globulin Urine Osmolality 07/13/20 07/12/20 16:45 03:20 WBC RBC Hgb Hct MCV MCH MCHC RDW Plt Count MPV Neut % (Auto) Lymph % (Auto) [place] % (Auto) Eos % (Auto) Baso % (Auto) Neut # (Auto) Lymph # (Auto) [place] # (Auto) Eos # (Auto) Baso # (Auto) Nucleated RBC % (a uto) Nucleated RBCs # PT INR Sodium Potassium Chloride Carbon Dioxide Anion Gap BUN Creatinine GFR Calculation Glucose POC Glucose 293 H Calculated Osmolal ity Lactate Calcium Phosphorus Magnesium Total Bilirubin AST ALT Alkaline Phosphata se C-Reactive Protein NT-Pro-B Natriuret Pep Total Protein Albumin Globulin Urine Osmolality 180 Vitals: Last Vital Signs Temp 97.6 F 07/14/20 11:06 Pulse 83 04/24/21 11:06 Resp 18 07/14/20 11:06 BP 144/73 07/14/20 11:06 Pulse Ox 94 07/14/20 11:06 Discharge Plan Discharge Patient Disposition: Home Condition: Stable Prescriptions: New sucralfate 1 gram Tablet 1 g PO AC&BEDTIME 30 Days Qty: 60 RF: 0 metoprolol tartrate 25 mg Tablet 25 mg PO BID@0900,2100 30 Days Qty: 60 RF: 0 Protonix 40 mg tablet,delayed release (DR/EC) 40 mg PO BID 30 Days Qty: 60 RF: 0 vancomycin 125 mg capsule 125 mg PO Q6H Qty: 105 RF: 0 Continued prednisone 1 mg tablet 4 mg PO DAILY Qty: 360 RF: 3 gabapentin 100 mg capsule 200 mg PO TID@,, RF: 0 venlafaxine 150 mg capsule,extended release 24hr 150 mg PO DAILY@09 Qty: 30 RF: 2 hydrocodone-acetaminophen 10-325 mg tablet 1 tab PO Q8H PRN (Reason: Pain) RF: 0 trazodone 100 mg tablet 100 mg PO .HS PRN (Reason: insomnia) Qty: 60 RF: 2 atorvastatin 80 mg Tablet 80 mg PO BEDTIME@20 RF: 0 pantoprazole 40 mg Tablet,Delayed Release (Dr/Ec) 40 mg PO DAILY@09 RF: 0 spironolactone 25 mg Tablet 25 mg PO DAILY@0900 RF: 0 Glucerna 1.5 Warner 0.08-1.5 gram-kcal/mL Liquid 5 ea feeding tube DAILY RF: 0 promethazine 25 mg tablet 25 mg PO Q6H PRN (Reason: nausea and vomiting) Qty: 14 RF: 0 metformin 1,000 mg Tablet 1,000 mg PO BID@, RF: 0 aspirin 81 mg Tablet,Delayed Release (Dr/Ec) 81 mg PO DAILY@09 RF: 0 sodium chloride 1 gram tablet 1 g PO BID@ RF: 0 fludrocortisone 0.1 mg tablet 0.1 mg PO DAILY@09 RF: 0 loperamide 2 mg Tablet 2 - 4 mg PO PRN RF: 0 acetaminophen [Tylenol Extra Strength] 500 mg Tablet 1,000 mg PO Q4H PRN (Reason: Pain) RF: 0 acetaminophen 325 mg Tablet 650 mg PO Q8H PRN (Reason: Pain) Qty: 60 RF: 0 levothyroxine 50 mcg Tablet 50 mcg PO DAILY@0800 Qty: 30 RF: 0 methocarbamol 750 mg tablet 1,500 mg PO TID PRN (Reason: MUSCLE SPASMS) RF: 0 metoclopramide HCl [Reglan] 10 mg tablet 10 mg PO Q6H PRN (Reason: nausea and vomiting) Qty: 20 RF: 0 Ativan 1 mg Tablet 1 mg PO TID PRN (Reason: Anxiety) RF: 0 Changed Novolog Flexpen U-100 Insulin 100 unit/mL (3 mL) Insulin Pen See Rx Instructions .ROUTE .COMPLEX Qty: 0 RF: 0 Held clopidogrel 75 mg tablet 75 mg PO DAILY@09 RF: 0 Hold Instructions: Resume on 07/25/20. HOLD UNTIL SEEN BY GEN SURGERY OR PMD Discontinued metoprolol tartrate 100 mg Tablet 50 mg PO BID@899,1999 RF: 0 glimepiride 4 mg tablet 4 mg PO DAILY@09 RF: 0 Lantus U-100 Insulin 100 unit/mL Solution 14 unit SUBCUT DAILY@0900 RF: 0 hydralazine 25 mg tablet 25 mg PO BID@, RF: 0 Discharge Orders: Discharge Order (Routine); Ordered 07/14/20 Ordered By: Kurt Zamarripa Referrals: Baldemar Euceda MD [Physician] - 7-10 days (egd for anemia) Thu Flores FNP [Primary Care Provider] - 1-3 days Hannah Aguilar MD [Physician] - 1 week Patient Instructions: Opioid Safety Activity Restrictions/Additional Instructions: -Follow-up with orthopedic surgeon in [place] for cervical fracture -For your low sodium levels, please avoid drinking more than 1.5 L a day, try to consume liquids such as Gatorade or Powerade or Pedialyte -I have discontinued your glimepiride and your Lantus -You should continue NovoLog sliding scale for now -For your anemia, follow-up with Dr. Euceda in 1 week for consideration of EGD -Plavix has been stopped -Protonix 40 twice daily with Carafate -If you were to have bloody or black stools, lightheadedness or dizziness go to the emergency room -Follow-up with endocrinology in 1 week Discharge Attestations Time Spent in Discharge Care*: greater than 30 min Status at Discharge: Cognitive status at discharge: cognitively intact, Behavioral status at discharge: cooperative, Quality Metrics Clinical Quality Measures During this hospital stay, did patient experience: None Coding Level of Care Code Acute Chg FW [place] note Diagnoses Chronic hyponatremia E87.1 C2 cervical fracture S12.100A Nausea & vomiting R11.2 Metabolic alkalosis E87.3 Anemia D64.9 Hypoglycemia due to type 2 diabetes mellitus E11.649 Seizure due to hypoglycemia R56.9; E16.2 Altered mental status R41.82 Adrenal insufficiency E27.40 Diastolic heart failure I50.33 Heart failure chronicity: acute on chronic CKD (chronic kidney disease), stage II N18.2 GERD (gastroesophageal reflux disease) K21.9 Esophagitis presence: esophagitis presence not specified Hyperlipidemia E78.5 Hyperlipidemia type: unspecified Hypertension I10 Morbid obesity E66.01 Insulin dependent type 2 diabetes mellitus E11.9; Z79.4 Hypothyroidism E03.9 Hypothyroidism type: unspecified C. difficile diarrhea A04.72
--- NOTE | 2020-07-14 13:14 | PM.PN ---
Subjective Subjective: Interval history: I am seeing her in follow up for her low sodium. No n/v/diarrhea Medications: Reviewed: Yes Vitals/I&O/Wt Last Vital Signs Temp 97.6 F 07/14/20 11:06 Pulse 83 07/14/20 11:06 Resp 18 07/14/20 11:06 BP 144/73 07/14/20 11:06 Pulse Ox 94 07/14/20 11:06 07/13/20 07/14/20 07/14/20 22:59 06:59 14:59 Intake Total 660 / 900 120 / 1020 840 / 840 Output Total 1600 / 6675 Balance 660 / -4175 -1480 / -5655 840 / 840 Weight last 48 hrs Weight 77.973 kg Weight 77.474 kg Physical Exam Const: COMMON NORMALS: no acute distress, patient oriented x3 and alert GENERAL APPEARANCE: cooperative ORIENTATION/CONSCIOUSNESS: Yes awake Neuro: COMMON NORMALS: patient oriented x3 SENSORIUM/ORIENTATION: Yes alert Urinary Catheter Management^: Magana: Cath Placed During This Visit: yes Reason for Continuing Indwelling Catheter: Other Urinary Catheter Date of Insertion: 07/12/20 Urinary Catheter Time of Insertion: 05:18 Data : 07/14/20 06:20 07/14/20 09:00 Micro: Microbiology 07/12/20 20:15 Blood Culture - Preliminary Blood NEGATIVE TO DATE 07/12/20 18:15 Blood Culture - Preliminary Blood NEGATIVE TO DATE A&P Assessment and plan (1) Hyponatremia: Sodium level improved. Will sign off. Please call if any questions Status: Acute Attestations Medical Necessity Statement*: Hyponatremia Coding Level of Care Code Acute Adventure Therapist for Navid Simons Diagnoses Hyponatremia E87.1
== END 2020-07-14 13:32 | disposition home or self-care (01) | DRG 640 ==
LOC: ER 23:13 → ICU 07-12 02:47 → MEDSURG 07-12 05:58 → ICU 07-12 07:56 → MEDSURG 07-13 11:14
PROVIDERS: Internal Medicine Nephrology; Admitting Provider Internal Medicine; Emergency Provider Emergency Medicine; PCP Nurse Practitioner; Visit Provider Family Medicine
DX: E87.1 Hypo-osmolality and hyponatremia (principal); I50.33 Acute on chronic diastolic (congestive) heart failure; S12.110A Anterior displaced Type II dens fracture, initial encounter for closed fracture; A04.72 Enterocolitis due to Clostridium difficile, not specified as recurrent; I13.0 Hypertensive heart and chronic kidney disease with heart failure and stage 1 through stage 4 chronic kidney disease, or unspecified chronic kidney disease; E27.40 Unspecified adrenocortical insufficiency; G40.89 Other seizures; W19.XXXA Unspecified fall, initial encounter; E11.649 Type 2 diabetes mellitus with hypoglycemia without coma; D63.1 Anemia in chronic kidney disease; E11.40 Type 2 diabetes mellitus with diabetic neuropathy, unspecified; E11.43 Type 2 diabetes mellitus with diabetic autonomic (poly)neuropathy; K31.84 Gastroparesis; E11.22 Type 2 diabetes mellitus with diabetic chronic kidney disease; N18.2 Chronic kidney disease, stage 2 (mild); E78.5 Hyperlipidemia, unspecified; E03.9 Hypothyroidism, unspecified; R11.2 Nausea with vomiting, unspecified; E87.3 Alkalosis; Z79.4 Long term (current) use of insulin; Z79.82 Long term (current) use of aspirin; Z79.52 Long term (current) use of systemic steroids; Z79.891 Long term (current) use of opiate analgesic; Z93.1 Gastrostomy status; Z79.02 Long term (current) use of antithrombotics/antiplatelets; F43.12 Post-traumatic stress disorder, chronic; E66.01 Morbid (severe) obesity due to excess calories; Z68.29 Body mass index [BMI] 29.0-29.9, adult; K21.9 Gastro-esophageal reflux disease without esophagitis; F17.290 Nicotine dependence, other tobacco product, uncomplicated; F32.9 Major depressive disorder, single episode, unspecified; I69.391 Dysphagia following cerebral infarction; R13.10 Dysphagia, unspecified
CPT/HCPCS: 36415; 36416; 36430; 36569; 36592; 36600; 51702; 71045; 80048; 80053; 81003; 82533; 82746; 82803; 82962; 83036; 83605; 83735; 83880; 83935; 84100; 84145; 84295; 84300; 84311; 84443; 84484; 85014; 85018; 85025; 85045; 85610; 85651; 86140; 86850; 86900; 86920; 87040; 87493; 92526; 92610; 93005; 94664; 96361; 96372; 96374; 96375; 97161; 99285; C9113; J0360; J1100; J1815; J2060; J2270; J3370; J3490; J7030; P9016; Q3014

== ENCOUNTER 2020-07-16 14:36 | Emergency (ER) | payer OTHER, MEDICARE, SELFPAY ==
[2020-07-16 14:41] VITALS: BP 119/62; PULSE 105; RESP 20; TEMP 36; O2SAT 98; BMI 27.6
--- NOTE | 2020-07-16 14:54 | W.ED.PSYCH ---
HPI - Psych General: Chief Complaint: Psychiatric Symptoms Stated Complaint: High Anxiety Time Seen by Provider: 07/16/20 14:47 Source: patient and family () Mode of arrival: wheelchair Limitations: no limitations History of Present Illness: HPI Narrative: Patient is a 65-year-old female with an extensive medical history who presents to ED today along with her for complaints of anxiety. She also tells me she feels suicidal and homicidal because her anxiety is so bad at the moment. When asked specifically about her homicidal thoughts/plans she tells me she has a plan to punch, kick, stab, poke somebody/anybody . PMH is significant for insulin-dependent diabetes, hypertension, dyslipidemia, neuropathy, hypothyroidism, gastroparesis, chronic adrenal insufficiency, chronic hyponatremia, CHF, CKD, CVA, and recent fall resulting in c spine fracture managed conservatively. She was just discharged from hospital two days ago. MD complaint: other (anxiety) Onset (ago): hour(s) Duration: intermittent History of same: Yes Relieving factors: none Exacerbating factors: none Context: significant life stressor (chronic medical problems ) Associated symptoms: Reports depression, homicidal ideation and suicidal ideation; Deny auditory hallucinations or visual hallucinations Treatments prior to arrival: none Review of Systems Const: Denies: fever(s) or chills Eyes: Denies: change in vision Card: Denies: chest pain Resp: Denies: dyspnea GI: Denies: abdominal pain, nausea or vomiting Neuro: Denies: headache(s) Psych: Reports: anxiety, depression, suicidal ideation and homicidal ideation; Denies: visual hallucinations or auditory hallucinations [facility] PFSH: Medical History (Updated 07/16/20 @ 16:08 by PETE Banegas) Anemia C. 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, recurrent severe without psychotic features Morbid obesity Post-traumatic stress disorder, chronic Surgical History H/O esophagogastroduodenoscopy H/O: hysterectomy History of bunionectomy bilateral Hx of cholecystectomy Status post colonoscopy Family History Mother Hypertension Diabetes Father Hypertension Asthma Other CAD (coronary artery disease) Cancer Denies family history of Anesthesia complication Bleeding disorder Social History Smoking and tobacco status: current every day smoker cigars Cigars smoked per week: 35 Years smoked cigars: 53 Cigar details: 1 PPD Quit status (tobacco): has tried quititng Second hand smoke exposure: Yes Smoking risk assessment/counseling performed?: No Alcohol intake: former Former alcohol use details: Reportedly has not had any alcohol since June Household members: spouse Housing: Manufactured/Mobile home Marital status: Current occupational status: retired History of recent travel: No Physical Exam Const: COMMON NORMALS: patient oriented x3, no limitations and alert GENERAL APPEARANCE: anxious and other (agitated ) NUTRITIONAL APPEARANCE: obese ORIENTATION/CONSCIOUSNESS: Yes awake, Yes oriented to person, Yes oriented to place and Yes oriented to time HENMT: COMMON NORMALS: normocephalic and atraumatic HEAD & SCALP: normocephalic and atraumatic Neck/C-Spine: OTHER: in c collar Resp: COMMON NORMALS: normal respiratory effort Neuro: NERI COMA SCALE: document GCS findings Neri coma scale eye opening: Spontaneous [place] coma scale verbal response: Orientated Neri coma scale motor response: Obey commands Neri coma scale total score: 15 COMMON NORMALS: patient oriented x3 SENSORIUM/ORIENTATION: Yes alert, Yes oriented to person, Yes oriented to place and Yes oriented to time Course Vital Signs: Vital signs: Vital Signs Temperature 96.8 F L 07/16/20 14:41 Pulse Rate 105 H 07/16/20 14:41 Respiratory Rate 20 H 07/16/20 14:41 Blood Pressure 119/62 07/16/20 14:41 Pulse Oximetry 98 07/16/20 14:41 MDM - Psych MDM Narrative: Medical decision making narrative: Patient feels much better after IM ativan. She states she is not suicidal or homicidal and smiles/laughs now at the fact that she even said she was. in the room states she has never displayed any form of aggressive behavior towards others. She does have one suicide attempt 5 years ago but states he feels safe taking her home at this time. I think patient would be an extremely low risk for self harm. Patient again assures me she is not suicidal any longer. Discharge Plan Discharge Patient Disposition: Home Clinical Impression: Anxiety Condition: Stable Prescriptions: New Ativan 1 mg tablet 1 mg PO Q8H PRN (Reason: anxiety) Qty: 3 RF: 0 No Action gabapentin 100 mg capsule 200 mg PO TID@,, RF: 0 venlafaxine 150 mg capsule,extended release 24hr 150 mg PO DAILY@09 Qty: 30 RF: 2 hydrocodone-acetaminophen 10-325 mg tablet 1 tab PO Q6H PRN (Reason: Pain) RF: 0 atorvastatin 80 mg Tablet 80 mg PO BEDTIME@20 RF: 0 spironolactone 25 mg Tablet 25 mg PO DAILY@0900 RF: 0 Glucerna 1.5 Warner 0.08-1.5 gram-kcal/mL Liquid 5 ea feeding tube DAILY PRN (Reason: malnutrition) RF: 0 metformin 1,000 mg Tablet 1,000 mg PO BID@, RF: 0 aspirin 81 mg Tablet,Delayed Release (Dr/Ec) 81 mg PO DAILY@ RF: 0 sodium chloride 1 gram tablet 1 g PO BID@ RF: 0 clopidogrel 75 mg tablet 75 mg PO DAILY@09 RF: 0 Hold Instructions: Resume on 07/25/20. HOLD UNTIL SEEN BY GEN SURGERY OR PMD fludrocortisone 0.1 mg tablet 0.1 mg PO DAILY@09 RF: 0 loperamide 2 mg Tablet 2 - 4 mg PO PRN RF: 0 acetaminophen [Tylenol Extra Strength] 500 mg Tablet 1,000 mg PO Q4H PRN (Reason: Pain) RF: 0 acetaminophen 325 mg Tablet 650 mg PO Q8H PRN (Reason: Pain) Qty: 60 RF: 0 levothyroxine 50 mcg Tablet 50 mcg PO DAILY@0800 Qty: 30 RF: 0 methocarbamol 750 mg tablet 1,500 mg PO TID PRN (Reason: MUSCLE SPASMS) RF: 0 metoclopramide HCl [Reglan] 10 mg tablet 10 mg PO Q6H PRN (Reason: nausea and vomiting) Qty: 20 RF: 0 sucralfate 1 gram Tablet 1 g PO AC&BEDTIME 30 Days Qty: 60 RF: 0 metoprolol tartrate 25 mg Tablet 25 mg PO BID@0900,2100 30 Days Qty: 60 RF: 0 pantoprazole [Protonix] 40 mg tablet,delayed release (DR/EC) 40 mg PO BID 30 Days Qty: 60 RF: 0 vancomycin 125 mg capsule 125 mg PO Q6H Qty: 105 RF: 0 insulin aspart U-100 [Novolog Flexpen U-100 Insulin] 100 unit/mL (3 mL) Insulin Pen See Rx Instructions .ROUTE .COMPLEX Qty: 0 RF: 0 trazodone 100 mg tablet 100 mg PO BEDTIME PRN (Reason: insomnia) RF: 0 prednisone 1 mg tablet 4 mg PO DAILY@09 RF: 0 Discharge Orders: Discharge ED (Routine); Ordered 07/16/20 Ordered By: Yolanda Parsons Referrals: Thu Flores FNP [Primary Care Provider] - Patient Instructions: Anxiety (ED) Activity Restrictions/Additional Instructions: As we discussed please follow-up with your psychiatrist for further evaluation and treatment of your anxiety. Coding Level of Care Code ED Interventional Radiology Technologist for Navid Fwpaty Exam Expanded Problem Focused
[2020-07-16] MEDS: LORazepam 2 mg/mL INJ 1 mL 1 MG IM ×2 (15:04→15:35)
--- NOTE | 2020-07-16 15:10 | PC.NURSE ---
1 on 1 sitter not needed per PETE Zavaleta
== END 2020-07-16 16:21 | disposition home or self-care (01) ==
PROVIDERS: Emergency Provider Physician Assistant; PCP Nurse Practitioner
DX: F41.9 Anxiety disorder, unspecified (principal); Z79.02 Long term (current) use of antithrombotics/antiplatelets; Z79.82 Long term (current) use of aspirin; Z79.4 Long term (current) use of insulin; I13.0 Hypertensive heart and chronic kidney disease with heart failure and stage 1 through stage 4 chronic kidney disease, or unspecified chronic kidney disease; E11.22 Type 2 diabetes mellitus with diabetic chronic kidney disease; N18.2 Chronic kidney disease, stage 2 (mild); I50.32 Chronic diastolic (congestive) heart failure; E78.5 Hyperlipidemia, unspecified; F17.210 Nicotine dependence, cigarettes, uncomplicated
CPT/HCPCS: 96372; 99283; J2060

== ENCOUNTER 2020-07-17 16:03 | Emergency (ER) | payer OTHER, MEDICARE, SELFPAY ==
[2020-07-17 16:17] VITALS: BP 97/65; PULSE 83; RESP 16; TEMP 36.8; O2SAT 94; BMI 29.4
[2020-07-17 16:22] VITALS: BP 97/62; PULSE 77; RESP 18; O2SAT 96
[2020-07-17 16:31] VITALS: BP 97/62; PULSE 76; RESP 18; TEMP 36.8; O2SAT 96
[2020-07-17 17:19] LABS: Acetaminophen 11.1 ug/mL (10-30); Alanine Aminotransferase 11 U/L (0-33); Albumin Level 2.8 g/dL (3.5-5.2); Alkaline Phosphatase 99 IU/L (35-105); Blood Urea Nitrogen 2 mg/dL (8-23); Calcium 7.4 mg/dL (8.5-10.5); Carbon Dioxide 26 mmol/L (22-29); Chloride 87 mmol/L (98-107); Globulin 2.6 g/dL (1.3-4.6); Glomerular Filtration Rate 123.4 mL/min (90-130); Glucose 127 mg/dL (65-115); Osmolality Calculated 266 mOsm/kg (285-295); Sodium 129 mmol/L (136-145); Total Bilirubin 0.3 mg/dL (0.15-1.2); Total Protein 5.4 g/dL (6.6-8.7)
[2020-07-17 17:21] LABS: Salicylate < 0.3 mg/dL (3-10)
[2020-07-17 17:22] LABS: Anion Gap 18.8 (5-19)
[2020-07-17 17:23] LABS: Aspartate Amino Transferase 16 U/L (0-32); Potassium 2.8 mmol/L (3.5-5.1)
[2020-07-17 17:48] LABS: Amphetamines Screen Urine Negative (Negative); Barbiturates Screen Urine Negative (Negative); Benzodiazepines Screen Urine Positive (Negative); Cocaine Screen Urine Negative (Negative); Opiate Screen Urine Positive (Negative); PCP Screen Urine Negative (Negative); THC Screen Urine Negative (Negative)
[2020-07-17 17:58] LABS: Add Urine Microscopic? YES; Amorphous Sediment Urine 1+ /hpf; Bacteria Urine TRACE /hpf; Bilirubin Urine 1+ (Negative); Blood Urine Neg (Negative); Glucose Urine UA Norm (Normal); Hyaline Casts Urine 0-4 /lpf; Ketones Urine Negative (Negative); Leukocyte Esterase Urine Negative (Negative); Mucus Urine TRACE /hpf; Nitrate Urine Negative (Negative); Protein Urine Neg (Negative); RBC Urine 0-4 /hpf (0-2); Squamous Epithelial Cell Urine 0-4 /hpf (0-5); Urine Appearance Hazy (CLEAR); Urine Color Yellow (Yellow); Urobilinogen Urine Norm (Negative); WBC Urine 0-4 /hpf (0-5); pH Urine 5 (5-7)
[2020-07-17] MEDS: potassium chloride oral liq 20 mEq/15 mL UDC 40 MEQ PO (18:29)
[2020-07-17 18:31] VITALS: BP 116/72; PULSE 83; RESP 20; O2SAT 96
[2020-07-17 18:37] LABS: Basophils % 0.5 %; Eosinophils # 0.1 10^3/uL (0.0-0.8); Eosinophils % 0.8 %; Hematocrit 30.3 % (37.0-47.0); Hemoglobin 9.2 g/dL (11.5-15.3); Lymphocytes # 1.6 10^3/uL (0.8-4.8); Lymphocytes % 18.6 %; Mean Corpuscular HGB Conc 30.4 g/dL (30.0-36.0); Mean Corpuscular Hemoglobin 28.3 pg (28.0-34.0); Mean Corpuscular Volume 93.2 fL (81-99); Mean Platelet Volume 8.9 fL (7.4-10.4); Monocytes # 0.9 10^3/uL (0.2-0.9); Neutrophils # 5.81 10^3/uL (1.8-7.7); Neutrophils % 68.5 %; Nucleated Red Blood Cells % 0 %; Platelet Count 413 10^3/cmm (130-400); Red Blood Count 3.25 10^6/uL (4.1-5.3); Red Cell Distribution Width 17.6 % (12.1-15.1); White Blood Count 8.5 10^3/uL (4.0-10.0)
--- NOTE | 2020-07-17 19:04 | ED_ITS ---
HPI - Psych General: Chief Complaint: Psychiatric Symptoms Stated Complaint: SI, ANXIETY, HI Time Seen by Provider: 07/17/20 16:19 Source: patient Mode of arrival: ambulatory Limitations: no limitations History of Present Illness: HPI Narrative: Patient is a 65-year-old female extensive medical history and she also has significant anxiety and depression. She was seen in this facility for similar complaints yesterday. She presents today with severe anxiety, saying my nerves are shot . She said because of the way she feels she feels suicidal and also wants to kill her . She plans to overdose on pills. She was at [facility] when she said these and so they sent her to the emergency department to be evaluated. She says that she is just fed up with her anxiety not being under control and that is why she feels the way she feels. complaint: suicidal ideation and feels depressed Onset (ago): day(s) (1) Duration: constant History of same: Yes Relieving factors: medication Exacerbating factors: none Associated psychiatric symptoms: depression, suicidal ideation and homicidal ideation Associated symptoms: Reports depression, homicidal ideation and suicidal ideation If self harm: admits thoughts of self harm and has plan Review of Systems General: Reports: 10 or more systems reviewed and unremarkable except in HPI and below Psych: Reports: depression, suicidal ideation and homicidal ideation [facility] ED PFSH: Medical History Anemia C. 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, recurrent severe without psychotic features Morbid obesity Post-traumatic stress disorder, chronic Surgical History H/O esophagogastroduodenoscopy H/O: hysterectomy History of bunionectomy bilateral Hx of cholecystectomy Status post colonoscopy Family History Mother Hypertension Diabetes Father Hypertension Asthma Other CAD (coronary artery disease) Cancer Denies family history of Anesthesia complication Bleeding disorder Social History Smoking and tobacco status: current every day smoker cigars Cigars smoked per week: 35 Years smoked cigars: 53 Cigar details: 1 PPD Quit status (tobacco): has tried quititng Second hand smoke exposure: Yes Smoking risk assessment/counseling performed?: No Alcohol intake: former Former alcohol use details: Reportedly has not had any alcohol since June Household members: spouse Housing: Manufactured/Mobile home Marital status: Current occupational status: retired History of recent travel: No Physical Exam Const: COMMON NORMALS: no acute distress, average body habitus, patient oriented x3, no limitations, healthy appearing, alert and well nourished HENMT: COMMON NORMALS: normocephalic, atraumatic and moist oral mucous membranes HEAD & SCALP: normocephalic and atraumatic Neck/C-Spine: COMMON NORMALS: no meningeal signs and no JVD Resp: COMMON NORMALS: normal respiratory effort, No retractions, No use of accessory muscles, clear to auscultation bilaterally and percussion normal AUSCULTATION: clear to auscultation bilaterally PERCUSSION: percussion normal Cardio: COMMON NORMALS: no JVD, regular rate, regular rhythm, S1 normal heart sound present, S2 normal heart sound present, No gallops present (Cardio), No clicks present (Cardio), No murmurs present (Cardio), No rub (Cardio) and Peripheral pulses 2+ throughout RATE: regular rate RHYTHM: regular rhythm HEART SOUNDS: S1 normal heart sound present and S2 normal heart sound present PERIPHERAL PULSES: Peripheral pulses 2+ throughout GI: COMMON NORMALS: Normal to inspection, nondistended, normoactive bowel sounds present, Soft to palpation, non-tender, No hepatosplenomegaly present, no masses and no bruits PALPATION: Yes Soft to palpation and Yes No hepatosplenomegaly present Extremity: COMMON NORMALS: normal to inspection, full ROM, capillary refill normal, no calf tenderness and no pedal edema Neuro: COMMON NORMALS: patient oriented x3 SENSORIUM/ORIENTATION: Yes alert MENINGEAL SIGNS: Yes no meningeal signs Course Reevaluation(s): Reevaluation #1: Discussed my conversation with Dr. Dan with her, also confirmed that he told her the same thing. Her was present throughout my interview with her and Dr. Dan interview with her. They agreed to his management recommendations, therefore I will discharge her home with a prescription for buspirone 15 mg twice daily. They voiced understanding and they are in agreement with the plan. Time: 19:04 Consultations: Consultation #1: Discussed with Dr. Dan, psychiatrist. He just completed the video conference with the patient. He advised that the patient is nonsuicidal and just wants her anxiety addressed. He had discussed with her and she had agreed to taking 15 mg twice daily of buspirone. Therefore recommended that we do this. Time: 19:01 Vital Signs: Vital signs: Vital Signs Temperature 98.2 F 07/17/20 16:31 Pulse Rate 88 07/17/20 19:24 Respiratory Rate 20 H 07/17/20 18:31 Blood Pressure 122/79 07/17/20 19:24 Pulse Oximetry 97 07/17/20 19:24 MDM - Psych MDM Narrative: Medical decision making narrative: 65-year-old female patient with a history of anxiety amongst other illnesses presents to the emergency department with severe anxiety. She also stated that she was suicidal and homicidal, but eventually she agreed that she just wanted her anxiety addressed. After consultation with the psychiatrist she was agreeable with starting buspir one. Her felt safe taking her back home and she also do not believe that she would hurt herself. She is therefore discharged home with a prescription for buspirone. Because of her insurance situation she was given a 10-day supply for her to feel acutely and another [facility]. She had some hypokalemia was replaced with 40 mEq of potassium in the emergency department. She is also given a prescription for potassium. Medical Records: Attestation: I reviewed the patient's medical records. Lab Data: Attestation: I reviewed the patient's lab results. Labs: Lab Results 07/17/20 07/17/20 07/17/20 Range/Units 16:51 16:51 17:32 WBC Cancelled Corrected WBC Cancelled RBC Cancelled Hgb Cancelled Hct Cancelled MCV Cancelled MCH Cancelled MCHC Cancelled RDW Cancelled Plt Count Cancelled MPV Cancelled Gran % Cancelled Neut % (Auto) Cancelled Lymph % (Auto) Cancelled [place] % (Auto) Cancelled Eos % (Auto) Cancelled Baso % (Auto) Cancelled Neut # (Auto) Cancelled Lymph # (Auto) Cancelled [place] # (Auto) Cancelled Eos # (Auto) Cancelled Baso # (Auto) Cancelled Absolute Gran (aut o) Cancelled Nucleated RBC % (a uto) Cancelled Nucleated RBCs # Cancelled Sodium 129 L (136-145) mmol/L Potassium 2.8 L* (3.5-5.1) mmol/L Chloride 87 L (98-107) mmol/L Carbon Dioxide 26 (22-29) mmol/L Anion Gap 18.8 (5-19) BUN 2 L (8-23) mg/dL Creatinine 0.5 (0.5-0.9) mg/dL GFR Calculation 123.4 (90-130) mL/min Glucose 127 H (65-115) mg/dL Calculated Osmolal ity 266 L (285-295) mOsm/k g Calcium 7.4 L (8.5-10.5) mg/dL Total Bilirubin 0.3 (0.15-1.2) mg/dL AST 16 (0-32) U/L ALT 11 (0-33) U/L Alkaline Phosphata se 99 (35-105) IU/L Total Protein 5.4 L (6.6-8.7) g/dL Albumin 2.8 L (3.5-5.2) g/dL Globulin 2.6 (1.3-4.6) g/dL Urine Color Yellow (Yellow) Urine Appearance Hazy A (CLEAR) Urine pH 5 (5-7) Ur Specific Gravit y 1.010 (1.005-1.030) Urine Protein Neg (Negative) Urine Glucose (UA) Norm (Normal) Urine Ketones Negative (Negative) Urine Blood Neg (Negative) Urine Nitrate Negative (Negative) Urine Bilirubin 1+ H (Negative) Urine Urobilinogen Norm (Negative) mg/dL Ur Leukocyte Kiara ase Negative (Negative) Urine RBC 0-4 H (0-2) /hpf Urine WBC 0-4 H (0-5) /hpf Ur Squamous Epith Cells 0-4 H (0-5) /hpf Amorphous Sediment 1+ /hpf Urine Bacteria Trace (NONE) /hpf Hyaline Casts 0-4 H /lpf Urine Mucus Trace /hpf Salicylates < 0.3 L (3-10) mg/dL Urine Opiates Scre en (Negative) ng/mL Acetaminophen 11.1 (10-30) ug/mL Ur Barbiturates Sc reen (Negative) ng/mL Ur Phencyclidine S crn (Negative) ng/mL Ur Amphetamines Sc reen (Negative) ng/mL U Benzodiazepines Scrn (Negative) ng/mL Urine Cocaine Scre en (Negative) ng/mL U Marijuana (THC) Screen (Negative) ng/mL 07/17/20 07/17/20 Range/Units 17:32 18:10 WBC 8.5 Corrected WBC RBC 3.25 L Hgb 9.2 L Hct 30.3 L MCV 93.2 MCH 28.3 MCHC 30.4 RDW 17.6 H Plt Count 413 H MPV 8.9 Gran % Neut % (Auto) 68.5 Lymph % (Auto) 18.6 [place] % (Auto) 11.0 Eos % (Auto) 0.8 Baso % (Auto) 0.5 Neut # (Auto) 5.81 Lymph # (Auto) 1.6 [place] # (Auto) 0.9 Eos # (Auto) 0.1 Baso # (Auto) 0.0 Absolute Gran (aut o) Nucleated RBC % (a uto) 0 Nucleated RBCs # 0.0 Sodium (136-145) mmol/L Potassium (3.5-5.1) mmol/L Chloride (98-107) mmol/L Carbon Dioxide (22-29) mmol/L Anion Gap (5-19) BUN (8-23) mg/dL Creatinine (0.5-0.9) mg/dL GFR Calculation (90-130) mL/min Glucose (65-115) mg/dL Calculated Osmolal ity (285-295) mOsm/k g Calcium (8.5-10.5) mg/dL Total Bilirubin (0.15-1.2) mg/dL AST (0-32) U/L ALT (0-33) U/L Alkaline Phosphata se (35-105) IU/L Total Protein (6.6-8.7) g/dL Albumin (3.5-5.2) g/dL Globulin (1.3-4.6) g/dL Urine Color (Yellow) Urine Appearance (CLEAR) Urine pH (5-7) Ur Specific Gravit y (1.005-1.030) Urine Protein (Negative) Urine Glucose (UA) (Normal) Urine Ketones (Negative) Urine Blood (Negative) Urine Nitrate (Negative) Urine Bilirubin (Negative) Urine Urobilinogen (Negative) mg/dL Ur Leukocyte Kiara ase (Negative) Urine RBC (0-2) /hpf Urine WBC (0-5) /hpf Ur Squamous Epith Cells (0-5) /hpf Amorphous Sediment /hpf Urine Bacteria (NONE) /hpf Hyaline Casts /lpf Urine Mucus /hpf Salicylates (3-10) mg/dL Urine Opiates Scre en Positive H (Negative) ng/mL Acetaminophen (10-30) ug/mL Ur Barbiturates Sc reen Negative (Negative) ng/mL Ur Phencyclidine S crn Negative (Negative) ng/mL Ur Amphetamines Sc reen Negative (Negative) ng/mL U Benzodiazepines Scrn Positive H (Negative) ng/mL Urine Cocaine Scre en Negative (Negative) ng/mL U Marijuana (THC) Screen Negative (Negative) ng/mL Discharge Plan Discharge Patient Disposition: Home Clinical Impression: Anxiety, Hypokalemia Condition: Stable Prescriptions: New buspirone 15 mg tablet 15 mg PO BID Qty: 20 RF: 0 buspirone 15 mg tablet 15 mg PO BID Qty: 60 RF: 0 potassium chloride 40 mEq/15 mL liquid 40 meq PO BID 3 Days Qty: 90 RF: 0 Continued gabapentin 100 mg capsule 200 mg PO TID@,, RF: 0 venlafaxine 150 mg capsule,extended release 24hr 150 mg PO DAILY@09 Qty: 30 RF: 2 hydrocodone-acetaminophen 10-325 mg tablet 1 tab PO Q6H PRN (Reason: Pain) RF: 0 atorvastatin 80 mg Tablet 80 mg PO BEDTIME@20 RF: 0 spironolactone 25 mg Tablet 25 mg PO DAILY@0900 RF: 0 Glucerna 1.5 Warner 0.08-1.5 gram-kcal/mL Liquid 5 ea feeding tube DAILY PRN (Reason: malnutrition) RF: 0 metformin 1,000 mg Tablet 1,000 mg PO BID@, RF: 0 aspirin 81 mg Tablet,Delayed Release (Dr/Ec) 81 mg PO DAILY@09 RF: 0 sodium chloride 1 gram tablet 1 g PO BID@, RF: 0 clopidogrel 75 mg tablet 75 mg PO DAILY@09 RF: 0 Hold Instructions: Resume on 07/25/20. HOLD UNTIL SEEN BY GEN SURGERY OR PMD fludrocortisone 0.1 mg tablet 0.1 mg PO DAILY@09 RF: 0 loperamide 2 mg Tablet 2 - 4 mg PO PRN RF: 0 acetaminophen [Tylenol Extra Strength] 500 mg Tablet 1,000 mg PO Q4H PRN (Reason: Pain) RF: 0 acetaminophen 325 mg Tablet 650 mg PO Q8H PRN (Reason: Pain) Qty: 60 RF: 0 levothyroxine 50 mcg Tablet 50 mcg PO DAILY@0800 Qty: 30 RF: 0 methocarbamol 750 mg tablet 1,500 mg PO TID PRN (Reason: MUSCLE SPASMS) RF: 0 metoclopramide HCl [Reglan] 10 mg tablet 10 mg PO Q6H PRN (Reason: nausea and vomiting) Qty: 20 RF: 0 sucralfate 1 gram Tablet 1 g PO AC&BEDTIME 30 Days Qty: 60 RF: 0 metoprolol tartrate 25 mg Tablet 25 mg PO BID@0900,2100 30 Days Qty: 60 RF: 0 pantoprazole [Protonix] 40 mg tablet,delayed release (DR/EC) 40 mg PO BID 30 Days Qty: 60 RF: 0 vancomycin 125 mg capsule 125 mg PO Q6H Qty: 105 RF: 0 insulin aspart U-100 [Novolog Flexpen U-100 Insulin] 100 unit/mL (3 mL) Insulin Pen See Rx Instructions .ROUTE .COMPLEX Qty: 0 RF: 0 trazodone 100 mg tablet 100 mg PO BEDTIME PRN (Reason: insomnia) RF: 0 prednisone 1 mg tablet 4 mg PO DAILY@09 RF: 0 Ativan 1 mg tablet 1 mg PO Q8H PRN (Reason: anxiety) Qty: 3 RF: 0 Discharge Orders: Discharge ED (Routine); Ordered 07/17/20 Ordered By: Markell Fernández Referrals: Thu Flores FNP [Primary Care Provider] - 1-3 days Discharge Diet: Usual diet Discharge Activity: Increase activity as tolerated Patient Instructions: Anxiety (ED) Activity Restrictions/Additional Instructions: Return for any new or worsening symptoms. Follow-up with your primary care provider within 3 days. Follow-up with your mental health provider as scheduled. Take the medication as prescribed, and the new medication is BuSpar and take 1 tablet twice a day. Coding Level of Care Code ED Lock Installer for Chg Fwd Exam Detailed
[2020-07-17] MEDS: BuSPIRONE 10 mg Tablet PO (19:23)
[2020-07-17 19:24] VITALS: BP 122/79; PULSE 88; O2SAT 97
== END 2020-07-17 19:24 | disposition home or self-care (01) ==
PROVIDERS: Emergency Provider Family Medicine; PCP Nurse Practitioner
DX: F41.9 Anxiety disorder, unspecified (principal); E87.6 Hypokalemia; Z79.02 Long term (current) use of antithrombotics/antiplatelets; Z79.82 Long term (current) use of aspirin; Z79.4 Long term (current) use of insulin; I13.0 Hypertensive heart and chronic kidney disease with heart failure and stage 1 through stage 4 chronic kidney disease, or unspecified chronic kidney disease; E11.22 Type 2 diabetes mellitus with diabetic chronic kidney disease; N18.2 Chronic kidney disease, stage 2 (mild); I50.32 Chronic diastolic (congestive) heart failure; E78.5 Hyperlipidemia, unspecified; F17.210 Nicotine dependence, cigarettes, uncomplicated; Z79.899 Other long term (current) drug therapy
CPT/HCPCS: 36415; 80053; 80306; 80307; 81001; 85025; 99283; Q3014

== ENCOUNTER 2020-07-24 23:18 | Emergency (ER) | payer OTHER, MEDICARE, SELFPAY ==
[2020-07-24 23:19] VITALS: BP 123/94; PULSE 79; RESP 20; TEMP 36.7; O2SAT 96; BMI 27.6
--- NOTE | 2020-07-24 23:22 | ECG_ITS ---
[facility] Test Date: 2020-07-24 Pat Name: Ingris Mendosa Department: Room: Gender: Female Shank Paperer: : 1955 Requested By: Melissa Garcia Order Number: [id number] Danny MD: Cecilio Julian M.D. Measurements Intervals [place] Rate: 75 P: 61 NE: 120 QRS: 49 QRSD: 84 T: 70 QT: 388 QTc: 435 Interpretive Statements SINUS RHYTHM POSSIBLE RIGHT VENTRICULAR CONDUCTION DELAY [RSR (QR) IN V1/V2] Compared to ECG 07/12/2020 20:14:25 No significant changes Electronically Signed On 07-25-2020 8:04:30 CDT by Cecilio Julian M.D. [id number]
--- NOTE | 2020-07-24 23:23 | ED_ITS ---
HPI - Chest Pain General: Chief Complaint: Chest Pain Stated Complaint: CP Time Seen by Provider: 07/24/20 23:19 Source: patient and EMS Mode of arrival: EMS Limitations: no limitations History of Present Illness: HPI narrative: 65-year-old female states she had chest pain that started roughly 2 hours ago. States the pain spontaneously resolved and she has been pain-free since then. Denies any shortness of breath or nausea. She had no diaphoresis. She denies any worsening improving factors. Associated symptoms: Deny abdominal pain, dyspnea, fever(s), nausea or vomiting Review of Systems Const: Denies: fever(s), chills, body aches or change in appetite Eyes: Denies: blurry vision or eye discomfort ENMT: Denies: throat pain or dental pain Card: Reports: chest pain Resp: Denies: dyspnea GI: Denies: abdominal pain, nausea, vomiting or diarrhea : Denies: dysuria Musc: Denies: neck pain or back pain Skin/Breast: Denies: rash Neuro: Denies: headache(s) Psych: Denies: depression Jeremiah/Lymph: Denies: easy bruising All/Imm: Denies: urticaria PFSH ED PFSH: Medical History Anemia C. 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, recurrent severe without psychotic features Morbid obesity Post-traumatic stress disorder, chronic Surgical History H/O esophagogastroduodenoscopy H/O: hysterectomy History of bunionectomy bilateral Hx of cholecystectomy Status post colonoscopy Family History Mother Hypertension Diabetes Father Hypertension Asthma Other CAD (coronary artery disease) Cancer Denies family history of Anesthesia complication Bleeding disorder Social History Smoking and tobacco status: current every day smoker cigars Cigars smoked per week: 35 Years smoked cigars: 53 Cigar details: 1 PPD Quit status (tobacco): has tried quititng Second hand smoke exposure: Yes Smoking risk assessment/counseling performed?: No Alcohol intake: former Former alcohol use details: Reportedly has not had any alcohol since June Household members: spouse Housing: Manufactured/Mobile home Marital status: Current occupational status: retired History of recent travel: No Physical Exam Const: COMMON NORMALS: no acute distress, patient oriented x3 and healthy appearing HENMT: COMMON NORMALS: normocephalic and atraumatic HEAD & SCALP: normocephalic and atraumatic Eye: COMMON NORMALS: Equal, round and reactive pupils present and EOMs intact bilaterally PUPIL: Yes Equal, round and reactive pupils present Neck/C-Spine: COMMON NORMALS: full ROM and supple Chest: COMMONS NORMALS: normal inspection of the chest and normal palpation of entire chest wall Resp: COMMON NORMALS: normal respiratory effort, No retractions, No use of accessory muscles and clear to auscultation bilaterally AUSCULTATION: clear to auscultation bilaterally Cardio: COMMON NORMALS: regular rate, regular rhythm and No murmurs present (Cardio) RATE: regular rate RHYTHM: regular rhythm GI: COMMON NORMALS: Normal to inspection, nondistended, normoactive bowel sounds present, Soft to palpation, non-tender and no masses PALPATION: Yes Soft to palpation Extremity: COMMON NORMALS: normal to inspection and full ROM Neuro: COMMON NORMALS: patient oriented x3, moves all extremities and no focal motor deficits Psych: COMMON NORMALS: mental status grossly normal, Normal thought process present and cooperative THOUGHT PROCESS: Normal thought process present Skin: COMMON NORMALS: no rashes or lesions noted and no wounds GENERAL SKIN EXAM: no rashes or lesions noted Course Vital Signs: Vital signs: Vital Signs Temperature 98.0 F 07/24/20 23:19 Pulse Rate 79 07/24/20 23:19 Respiratory Rate 20 H 07/24/20 23:19 Blood Pressure 123/94 07/24/20 23:19 Pulse Oximetry 96 07/24/20 23:19 MDM - Chest Pain MDM Narrative: Medical decision making narrative: Patient presents with chest pain that is atypical in nature. She has been pain-free here. She has no signs of acute coronary syndrome or pulmonary embolism. Patient's blood work and troponins here are all normal. She is stable for discharge and is to follow-up PCP and return if worsening. Lab Data: Labs: Lab Results 07/24/20 07/24/20 07/24/20 Range/Units 23:45 23:45 23:45 WBC 9.9 (4.0-10.0) 10^3/ uL RBC 3.69 L (4.1-5.3) 10^6/u L Hgb 10.4 L (11.5-15.3) g/dL Hct 32.7 L (37.0-47.0) % MCV 88.6 (81-99) fL MCH 28.2 (28.0-34.0) pg MCHC 31.8 (30.0-36.0) g/dL RDW 17.8 H (12.1-15.1) % Plt Count 421 H (130-400) 10^3/c mm MPV 9.1 (7.4-10.4) fL Neut % (Auto) 73.0 % Lymph % (Auto) 13.9 % [place] % (Auto) 11.5 % Eos % (Auto) 0.6 % Baso % (Auto) 0.5 % Neut # (Auto) 7.22 (1.8-7.7) 10^3/u L Lymph # (Auto) 1.4 (0.8-4.8) 10^3/u L [place] # (Auto) 1.1 H (0.2-0.9) 10^3/u L Eos # (Auto) 0.1 (0.0-0.8) 10^3/u L Baso # (Auto) 0.1 (0.0-0.1) 10^3/u L Nucleated RBC % (a uto) 0 % Nucleated RBCs # 0.0 /100WBC Sodium 133 L (136-145) mmol/L Potassium 3.5 (3.5-5.1) mmol/L Chloride 96 L (98-107) mmol/L Carbon Dioxide 28 (22-29) mmol/L Anion Gap 12.5 (5-19) BUN 3 L (8-23) mg/dL Creatinine 0.6 (0.5-0.9) mg/dL GFR Calculation 100.0 (90-130) mL/min Glucose 145 H (65-115) mg/dL Calculated Osmolal ity 275 L (285-295) mOsm/k g Calcium 7.9 L (8.5-10.5) mg/dL Total Bilirubin 0.3 (0.15-1.2) mg/dL AST 14 (0-32) U/L ALT 9 (0-33) U/L Alkaline Phosphata se 114 H (35-105) IU/L Troponin T Baselin e 13 H (0-10) ng/L Troponin T 120 Min baltazar (0-10) ng/L Delta Troponin T (0-10) ABS# Total Protein 5.8 L (6.6-8.7) g/dL Albumin 3.4 L (3.5-5.2) g/dL Globulin 2.4 (1.3-4.6) g/dL 07/25/20 Range/Units 01:42 WBC (4.0-10.0) 10^3/ uL RBC (4.1-5.3) 10^6/u L Hgb (11.5-15.3) g/dL Hct (37.0-47.0) % MCV (81-99) fL MCH (28.0-34.0) pg MCHC (30.0-36.0) g/dL RDW (12.1-15.1) % Plt Count (130-400) 10^3/c mm MPV (7.4-10.4) fL Neut % (Auto) % Lymph % (Auto) % [place] % (Auto) % Eos % (Auto) % Baso % (Auto) % Neut # (Auto) (1.8-7.7) 10^3/u L Lymph # (Auto) (0.8-4.8) 10^3/u L [place] # (Auto) (0.2-0.9) 10^3/u L Eos # (Auto) (0.0-0.8) 10^3/u L Baso # (Auto) (0.0-0.1) 10^3/u L Nucleated RBC % (a uto) % Nucleated RBCs # /100WBC Sodium (136-145) mmol/L Potassium (3.5-5.1) mmol/L Chloride (98-107) mmol/L Carbon Dioxide (22-29) mmol/L Anion Gap (5-19) BUN (8-23) mg/dL Creatinine (0.5-0.9) mg/dL GFR Calculation (90-130) mL/min Glucose (65-115) mg/dL Calculated Osmolal ity (285-295) mOsm/k g Calcium (8.5-10.5) mg/dL Total Bilirubin (0.15-1.2) mg/dL AST (0-32) U/L ALT (0-33) U/L Alkaline Phosphata se (35-105) IU/L Troponin T Baselin e (0-10) ng/L Troponin T 120 Min baltazar 11.26 H (0-10) ng/L Delta Troponin T -1.74 L (0-10) ABS# Total Protein (6.6-8.7) g/dL Albumin (3.5-5.2) g/dL Globulin (1.3-4.6) g/dL EKG Data^: EKG 1: Attestation: I personally reviewed and interpreted this EKG as follows: EKG interpretation date: 07/24/20 EKG interpretation time: 23:23 Interpretation: nsr hr [address] or t wave abnormalities qrs 84 qtc 417 EKG 2: Attestation: I personally reviewed and interpreted this EKG as follows: EKG interpretation date: 07/25/20 EKG interpretation time: 01:46 Interpretation: nsr hr [address] or t wave abnormalities qrs 84 qtc 432 Discharge Plan Discharge Patient Disposition: Home Clinical Impression: Chest pain Qualifiers: Chest pain type: unspecified Qualified Code(s): R07.9 - Chest pain, unspecified Condition: Stable Prescriptions: No Action gabapentin 100 mg capsule 200 mg PO TID@09,12,23 RF: 0 venlafaxine 150 mg capsule,extended release 24hr 150 mg PO DAILY@09 Qty: 30 RF: 2 hydrocodone-acetaminophen 10-325 mg tablet 1 tab PO Q6H PRN (Reason: Pain) RF: 0 atorvastatin 80 mg Tablet 80 mg PO BEDTIME@20 RF: 0 spironolactone 25 mg Tablet 25 mg PO DAILY@0900 RF: 0 Glucerna 1.5 Warner 0.08-1.5 gram-kcal/mL Liquid 5 ea feeding tube DAILY PRN (Reason: malnutrition) RF: 0 buspirone 15 mg tablet 15 mg PO BID Qty: 20 RF: 0 buspirone 15 mg tablet 15 mg PO BID Qty: 60 RF: 0 metformin 1,000 mg Tablet 1,000 mg PO BID@, RF: 0 aspirin 81 mg Tablet,Delayed Release (Dr/Ec) 81 mg PO DAILY@09 RF: 0 sodium chloride 1 gram tablet 1 g PO BID@ RF: 0 clopidogrel 75 mg tablet 75 mg PO DAILY@09 RF: 0 Hold Instructions: Resume on 07/25/20. HOLD UNTIL SEEN BY GEN SURGERY OR PMD fludrocortisone 0.1 mg tablet 0.1 mg PO DAILY@09 RF: 0 loperamide 2 mg Tablet 2 - 4 mg PO PRN RF: 0 acetaminophen [Tylenol Extra Strength] 500 mg Tablet 1,000 mg PO Q4H PRN (Reason: Pain) RF: 0 acetaminophen 325 mg Tablet 650 mg PO Q8H PRN (Reason: Pain) Qty: 60 RF: 0 levothyroxine 50 mcg Tablet 50 mcg PO DAILY@0800 Qty: 30 RF: 0 methocarbamol 750 mg tablet 1,500 mg PO TID PRN (Reason: MUSCLE SPASMS) RF: 0 metoclopramide HCl [Reglan] 10 mg tablet 10 mg PO Q6H PRN (Reason: nausea and vomiting) Qty: 20 RF: 0 sucralfate 1 gram Tablet 1 g PO AC&BEDTIME 30 Days Qty: 60 RF: 0 metoprolol tartrate 25 mg Tablet 25 mg PO BID@0900,2100 30 Days Qty: 60 RF: 0 pantoprazole [Protonix] 40 mg tablet,delayed release (DR/EC) 40 mg PO BID 30 Days Qty: 60 RF: 0 vancomycin 125 mg capsule 125 mg PO Q6H Qty: 105 RF: 0 insulin aspart U-100 [Novolog Flexpen U-100 Insulin] 100 unit/mL (3 mL) Insulin Pen See Rx Instructions .ROUTE .COMPLEX Qty: 0 RF: 0 trazodone 100 mg tablet 100 mg PO BEDTIME PRN (Reason: insomnia) RF: 0 prednisone 1 mg tablet 4 mg PO DAILY@09 RF: 0 Ativan 1 mg tablet 1 mg PO Q8H PRN (Reason: anxiety) Qty: 3 RF: 0 Discharge Orders: Discharge ED (Routine); Ordered 07/25/20 Ordered By: Melissa Garcia Referrals: Thu Flores, GEOPHYSICS SCIENTIST [Primary Care Provider] - 1-3 days Discharge Diet: Advance as tolerated Discharge Activity: Resume usual activity Patient Instructions: Chest Pain (ED) Coding Level of Care Code ED [facility] Machine Feeder for Navid Fwd Exam Comprehensive
[2020-07-25 00:28] LABS: Basophils # 0.1 10^3/uL (0.0-0.1); Basophils % 0.5 %; Eosinophils # 0.1 10^3/uL (0.0-0.8); Eosinophils % 0.6 %; Hematocrit 32.7 % (37.0-47.0); Hemoglobin 10.4 g/dL (11.5-15.3); Lymphocytes # 1.4 10^3/uL (0.8-4.8); Lymphocytes % 13.9 %; Mean Corpuscular HGB Conc 31.8 g/dL (30.0-36.0); Mean Corpuscular Hemoglobin 28.2 pg (28.0-34.0); Mean Corpuscular Volume 88.6 fL (81-99); Mean Platelet Volume 9.1 fL (7.4-10.4); Monocytes # 1.1 10^3/uL (0.2-0.9); Monocytes % 11.5 %; Neutrophils # 7.22 10^3/uL (1.8-7.7); Nucleated Red Blood Cells % 0 %; Platelet Count 421 10^3/cmm (130-400); Red Blood Count 3.69 10^6/uL (4.1-5.3); Red Cell Distribution Width 17.8 % (12.1-15.1); White Blood Count 9.9 10^3/uL (4.0-10.0)
[2020-07-25 00:44] LABS: Alanine Aminotransferase 9 U/L (0-33); Albumin Level 3.4 g/dL (3.5-5.2); Alkaline Phosphatase 114 IU/L (35-105); Anion Gap 12.5 (5-19); Aspartate Amino Transferase 14 U/L (0-32); Blood Urea Nitrogen 3 mg/dL (8-23); Calcium 7.9 mg/dL (8.5-10.5); Carbon Dioxide 28 mmol/L (22-29); Chloride 96 mmol/L (98-107); Creatinine Clr Calc Pharmacy 65.2413; Globulin 2.4 g/dL (1.3-4.6); Glucose 145 mg/dL (65-115); Osmolality Calculated 275 mOsm/kg (285-295); Potassium 3.5 mmol/L (3.5-5.1); Sodium 133 mmol/L (136-145); Total Bilirubin 0.3 mg/dL (0.15-1.2); Total Protein 5.8 g/dL (6.6-8.7)
[2020-07-25 00:46] LABS: Troponin(5th) Baseline 13 ng/L (0-10)
--- NOTE | 2020-07-25 01:53 | XRR_ITS ---
PROCEDURE INFORMATION: Exam: XR Chest Exam date and time: 07/25/2020 1:58 AM Age: 65 years old Clinical indication: Prior surgery; Surgery type: Gb; Patient HX: Chest pain. History of chf. ; Additional info: Cp TECHNIQUE: Imaging protocol: XR of the chest. Views: 1 view. COMPARISON: CR XR chest 1V portable [id number] 07/12/2020 4:12 PM FINDINGS: Tubes, catheters and devices: Spinal cord stimulator leads present in the thoracic spine. Lungs: Unremarkable. No consolidation. Pleural spaces: Unremarkable. No pleural effusion. No pneumothorax. Heart/Mediastinum: Unremarkable. No cardiomegaly. Bones/joints: Unremarkable. XR/XR chest 1V portable [id number] IMPRESSION: No acute disease.
[2020-07-25 02:06] LABS: Troponin 5 2HR 11.26 ng/L (0-10)
[2020-07-25 02:13] LABS: Troponin 5 2HR Delta -1.74 ABS# (0-10)
[2020-07-25 03:16] VITALS: BP 158/90; PULSE 97; RESP 18; TEMP 36.2; O2SAT 97
[2020-07-25 03:17] VITALS: BP 158/94; PULSE 97; RESP 18; TEMP 36.2; O2SAT 97
[2020-07-25 03:20] VITALS: BP 158/90; PULSE 97; RESP 18; TEMP 36.2; O2SAT 97
--- NOTE | 2020-07-25 05:22 | ECG_ITS ---
[facility] Test Date: 2020-07-25 Pat Name: Ingris Mendosa Department: Room: Gender: Female Rn Unit Manager: : 1955 Requested By: Melissa Garcia Order Number: [id number] Danny MD: Cecilio Julian M.D. Measurements Intervals [place] Rate: 83 P: 50 WI: 122 QRS: 42 QRSD: 84 T: 74 QT: 392 QTc: 462 Interpretive Statements SINUS RHYTHM POSSIBLE LEFT ATRIAL ENLARGEMENT [-0.1mV P WAVE IN V1/V2] POSSIBLE RIGHT VENTRICULAR CONDUCTION DELAY [RSR (QR) IN V1/V2] Compared to ECG 07/24/2020 23:23:24 No significant changes Electronically Signed On 07-25-2020 10:02:27 CDT by Cecilio Julian M.D. [id number]
== END 2020-07-25 03:05 | disposition home or self-care (01) ==
PROVIDERS: Emergency Provider Emergency Medicine; PCP Nurse Practitioner
DX: R07.9 Chest pain, unspecified (principal); Z79.02 Long term (current) use of antithrombotics/antiplatelets; Z79.82 Long term (current) use of aspirin; Z79.4 Long term (current) use of insulin; I13.0 Hypertensive heart and chronic kidney disease with heart failure and stage 1 through stage 4 chronic kidney disease, or unspecified chronic kidney disease; E11.22 Type 2 diabetes mellitus with diabetic chronic kidney disease; N18.2 Chronic kidney disease, stage 2 (mild); I50.32 Chronic diastolic (congestive) heart failure; E78.5 Hyperlipidemia, unspecified; F17.210 Nicotine dependence, cigarettes, uncomplicated
CPT/HCPCS: 71045; 80053; 84484; 85025; 93005; 99284

== ENCOUNTER 2020-07-29 15:10 | Emergency (ER) | payer OTHER, MEDICARE, SELFPAY ==
[2020-07-29 15:11] VITALS: BP 131/84; PULSE 130; RESP 18; TEMP 36.4; O2SAT 97; BMI 27.6
--- NOTE | 2020-07-29 16:22 | W.ED.HA ---
HPI - Headache General: Chief Complaint: Headache Stated Complaint: neck pain Time Seen by Provider: 07/29/20 16:06 History of Present Illness: HPI Narrative: Patient is complaining of a migraine type headache that started a couple of hours ago while at home watching TV is like her usual presentations in the back of the head comes up bilaterally around her eyes and associated with some photophobia and some nausea but no vomiting. She denies this being any different than her other headaches it is gotten worse over the past couple of hours she has tried a Soma and 2 Tylenol and then asked her to bring her here to the emergency room. She denies any numbness tingling or fevers. She feels this is normal presentation and says they usually give her a shot. Patient was just here couple of days ago for chest pain and/or anxiety that she has frequently. Patient is wearing a c-collar from a fractured neck but has not had any recent surgeries or fevers Review of Systems Narrative: General: denies fatigue, fever or chills HEENT: denies ear pain, denies nasal congestion, denies vision changes, denies sore throat Neck: denies masses or pain Resp: denies cough, denies shortness of breath, denies pleuritic pain Cardio: denies chest pain, denies edema GI: denies abdominal pain, denies N/V/D, denies black/tarry or bloody stools : denies hematuria, denies dysuria Neuro: headache, denies dizziness, denies motor or sensory changes Musculoskeletal: denies pain, denies swelling Skin: denies rashes Psych: denies SI or HI Endocrine: denies thyroid symptoms, denies lymphadenopathy all over ROS reviewed and patient denies PFSH ED PFSH: Medical History Anemia C. 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, recurrent severe without psychotic features Morbid obesity Post-traumatic stress disorder, chronic Surgical History H/O esophagogastroduodenoscopy H/O: hysterectomy History of bunionectomy bilateral Hx of cholecystectomy Status post colonoscopy Family History Mother Hypertension Diabetes Father Hypertension Asthma Other CAD (coronary artery disease) Cancer Denies family history of Anesthesia complication Bleeding disorder Social History Smoking and tobacco status: current every day smoker cigars Cigars smoked per week: 35 Years smoked cigars: 53 Cigar details: 1 PPD Quit status (tobacco): has tried quititng Second hand smoke exposure: Yes Smoking risk assessment/counseling performed?: No Alcohol intake: former Former alcohol use details: Reportedly has not had any alcohol since June Household members: spouse Housing: Manufactured/Mobile home Marital status: Current occupational status: retired History of recent travel: No Physical Exam Narrative: EXAM NARRATIVE: General: no distress, resting with her eyes closed in a dark room normal speech HEENT: normal eyes, normal mouth, normal external nose Neck: C-collar in place Resp: normal effort, no tachypnea, no stridor Cardio: normal rate, no edema GI: soft, flat, non distended : deferred Neuro: normal coordination, normal speech, no gross motor or sensory deficits, 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 She says that usually give her morphine or something I try to look in her previous records she has been here about 4 times over the past several weeks. Patient says Phenergan definitely helps her so I will give her that as well as some IM morphine Went to check on the patient's progress it had been about 35 minutes and she had her shot she said it has not been working discussed with her shots can take up to an hour to work and then patient said she just wants to go home. She does state that it is better but it is not completely gone but she is fine going home is present and agrees with the plan Differential Diagnosis: Differential diagnosis headache: Likely migraine Medical Records: Attestation: I reviewed the patient's medical records. Discharge Plan Discharge Patient Disposition: Home Clinical Impression: Migraine Qualifiers: Migraine type: unspecified Status migrainosus presence: without status migrainosus Intractability: not intractable Qualified Code(s): G43.909 - Migraine, unspecified, not intractable, without status migrainosus Condition: Stable Prescriptions: No Action gabapentin 100 mg capsule 200 mg PO TID@,, RF: 0 venlafaxine 150 mg capsule,extended release 24hr 150 mg PO DAILY@09 Qty: 30 RF: 2 hydrocodone-acetaminophen 10-325 mg tablet 1 tab PO Q6H PRN (Reason: Pain) RF: 0 atorvastatin 80 mg Tablet 80 mg PO BEDTIME@20 RF: 0 spironolactone 25 mg Tablet 25 mg PO DAILY@0900 RF: 0 Glucerna 1.5 Warner 0.08-1.5 gram-kcal/mL Liquid 5 ea feeding tube DAILY PRN (Reason: malnutrition) RF: 0 buspirone 15 mg tablet 15 mg PO BID Qty: 20 RF: 0 buspirone 15 mg tablet 15 mg PO BID Qty: 60 RF: 0 metformin 1,000 mg Tablet 1,000 mg PO BID@,20 RF: 0 aspirin 81 mg Tablet,Delayed Release (Dr/Ec) 81 mg PO DAILY@09 RF: 0 sodium chloride 1 gram tablet 1 g PO BID@, RF: 0 clopidogrel 75 mg tablet 75 mg PO DAILY@09 RF: 0 Hold Instructions: Resume on 07/25/20. HOLD UNTIL SEEN BY GEN SURGERY OR PMD fludrocortisone 0.1 mg tablet 0.1 mg PO DAILY@09 RF: 0 loperamide 2 mg Tablet 2 - 4 mg PO PRN RF: 0 acetaminophen [Tylenol Extra Strength] 500 mg Tablet 1,000 mg PO Q4H PRN (Reason: Pain) RF: 0 acetaminophen 325 mg Tablet 650 mg PO Q8H PRN (Reason: Pain) Qty: 60 RF: 0 levothyroxine 50 mcg Tablet 50 mcg PO DAILY@0800 Qty: 30 RF: 0 methocarbamol 750 mg tablet 1,500 mg PO TID PRN (Reason: MUSCLE SPASMS) RF: 0 metoclopramide HCl [Reglan] 10 mg tablet 10 mg PO Q6H PRN (Reason: nausea and vomiting) Qty: 20 RF: 0 sucralfate 1 gram Tablet 1 g PO AC&BEDTIME 30 Days Qty: 60 RF: 0 metoprolol tartrate 25 mg Tablet 25 mg PO BID@0900,2100 30 Days Qty: 60 RF: 0 pantoprazole [Protonix] 40 mg tablet,delayed release (DR/EC) 40 mg PO BID 30 Days Qty: 60 RF: 0 vancomycin 125 mg capsule 125 mg PO Q6H Qty: 105 RF: 0 insulin aspart U-100 [Novolog Flexpen U-100 Insulin] 100 unit/mL (3 mL) Insulin Pen See Rx Instructions .ROUTE .COMPLEX Qty: 0 RF: 0 trazodone 100 mg tablet 100 mg PO BEDTIME PRN (Reason: insomnia) RF: 0 prednisone 1 mg tablet 4 mg PO DAILY@09 RF: 0 Ativan 1 mg tablet 1 mg PO Q8H PRN (Reason: anxiety) Qty: 3 RF: 0 Discharge Orders: Discharge ED (Routine); Ordered 07/29/20 Ordered By: Jeri Fajardo Referrals: Thu Flores FNP [Primary Care Provider] - Discharge Diet: Usual diet Discharge Activity: Resume usual activity Patient Instructions: Opioid Safety Activity Restrictions/Additional Instructions: Take your home medications as needed follow-up with your doctor for further medications work-up and/or testing return to the emergency department if headache worsens fevers rashes or changes in symptoms Thank you for choosing [facility] for your healthcare needs today. Please realize this is an emergency room and that we are providing you with a medical screening exam and this may not be complete and all inclusive of all the testing and or work up that you may need to determine your ailment or severity of your illness. It is very important that you follow up as instructed or that you return to the Emergency Department should you have concerns or if your condition changes or worsens in any way. Coding Level of Care Code ED Utilization Reviewer for Navid Simons
[2020-07-29] MEDS: promethazine 25 mg/mL SDV 1 mL 50 MG IM (16:34)
[2020-07-29] MEDS: morphine 4 mg/mL SDV 1 mL IM (16:34)
[2020-07-29 17:09] VITALS: PULSE 110; O2SAT 97
[2020-07-29 17:44] VITALS: PULSE 111; RESP 18; O2SAT 95
== END 2020-07-29 17:45 | disposition home or self-care (01) ==
PROVIDERS: Emergency Provider Emergency Medicine; PCP Nurse Practitioner
DX: G43.909 Migraine, unspecified, not intractable, without status migrainosus (principal); Z79.84 Long term (current) use of oral hypoglycemic drugs; Z79.02 Long term (current) use of antithrombotics/antiplatelets; Z79.82 Long term (current) use of aspirin; I13.0 Hypertensive heart and chronic kidney disease with heart failure and stage 1 through stage 4 chronic kidney disease, or unspecified chronic kidney disease; E11.22 Type 2 diabetes mellitus with diabetic chronic kidney disease; N18.2 Chronic kidney disease, stage 2 (mild); I50.32 Chronic diastolic (congestive) heart failure; E78.5 Hyperlipidemia, unspecified; F17.210 Nicotine dependence, cigarettes, uncomplicated
CPT/HCPCS: 96372; 99283; J2270; J2550

== ENCOUNTER 2020-08-09 06:00 | Outpatient (RCR) | payer OTHER, MEDICARE, SELFPAY | END 2020-08-20 23:59 | disposition home or self-care (01) | LOC: SST 06:00 | PROVIDERS: PCP Nurse Practitioner; Visit Provider Nurse Practitioner Family | DX: R13.19 Other dysphagia (principal) | CPT/HCPCS: 92524; 92610 ==

== ENCOUNTER 2020-08-19 04:46 | Emergency (ER) | payer OTHER, MEDICARE, SELFPAY ==
[2020-08-19 04:56] VITALS: BP 105/74; PULSE 122; RESP 18; TEMP 36.1; O2SAT 96; BMI 28.3
--- NOTE | 2020-08-19 05:19 | CTR_ITS ---
PROCEDURE INFORMATION: Exam: CT Cervical Spine Without Contrast Exam date and time: 08/19/2020 6:06 AM Age: 65 years old Clinical indication: Injury or trauma; Fall; Blunt trauma; Additional info: Fall, prior injury TECHNIQUE: Imaging protocol: Computed tomography images of the cervical spine without contrast. Radiation optimization: All CT scans at this facility use at least one of these dose optimization techniques: automated exposure control; mA and/or kV adjustment per patient size (includes targeted exams where dose is matched to clinical indication); or iterative reconstruction. COMPARISON: CT cervical spin wo con* [id number] 07/04/2020 10:10 AM RADIATION DOSE METRICS: Total DLP (mGy-cm): 603.7 FINDINGS: Bones/joints: There is an acute type 2 odontoid fracture that appears stable compared with 07/04/2020. Portion of the posterior lamina the body of C2 is mildly displaced posteriorly. Discs/Spinal canal/Neural foramina: There is a diffuse loss of disc height seen within the cervical spine compatible with degenerative disc disease. Lungs: Lung apices are normal. Soft tissues: Unremarkable. CT/CT cervical spin wo con* [id number] IMPRESSION: 1. There is a stable type 2 odontoid fracture similar to that present on 07/04/2020. 2. There are no new acute osseous findings. Radiation Dose CTDIVOL = (mGy): DLP = 603.7 (mGy-cm)
[2020-08-19 06:17] VITALS: PULSE 72; RESP 18; O2SAT 96
[2020-08-19 07:02] VITALS: RESP 18; O2SAT 95
[2020-08-19] MEDS: oxyCODONE-APAP 5-325 mg Tablet 2 TAB PO (07:02)
[2020-08-19 07:03] VITALS: BP 110/74; PULSE 120; RESP 18; O2SAT 95
[2020-08-19 07:04] VITALS: BP 110/74; PULSE 120; RESP 18; O2SAT 95
--- NOTE | 2020-08-20 01:56 | ED_ITS ---
HPI - Fall General: Chief Complaint: Fall Stated Complaint: Fell in Shower\Neck Pain Time Seen by Provider: 08/19/20 05:10 History of Present Illness: HPI Narrative: 65-year-old female well-known to the emergency department. She has a previous fracture of her dens, for which she has been the last 8 weeks or so in a hard C-spine collar. She presents after a fall, with increased pain to her neck. This was concerning given her history. She fell in the bathroom from a standing position. She did not hit her head or get knocked out. complaint: fall Onset (ago): minute(s) Fall from: standing Fall witnessed: yes, by family Place fall occurred: home Loss of consciousness: None Prolonged down time: no Symptoms prior to fall: none Context: tripped/slipped Location of injury: neck Associated symptoms-after fall: Reports no associated symptoms; Denies chest pain Review of Systems Const: Denies: fever(s) Eyes: Denies: change in vision Card: Denies: chest pain Resp: Denies: dyspnea GI: Denies: vomiting PFSH ED PFSH: Medical History Anemia C. 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, recurrent severe without psychotic features Morbid obesity Post-traumatic stress disorder, chronic Surgical History H/O esophagogastroduodenoscopy H/O: hysterectomy History of bunionectomy bilateral Hx of cholecystectomy Status post colonoscopy Family History Mother Hypertension Diabetes Father Hypertension Asthma Other CAD (coronary artery disease) Cancer Denies family history of Anesthesia complication Bleeding disorder Social History Smoking and tobacco status: current every day smoker cigars Cigars smoked per week: 35 Years smoked cigars: 53 Cigar details: 1 PPD Quit status (tobacco): has tried quititng Second hand smoke exposure: Yes Smoking risk assessment/counseling performed?: No Alcohol intake: former Former alcohol use details: Reportedly has not had any alcohol since June Household members: spouse Housing: Manufactured/Mobile home Marital status: Current occupational status: retired History of recent travel: No Physical Exam Const: COMMON NORMALS: patient oriented x3 and alert NUTRITIONAL APPEARANCE: obese Eye: COMMON NORMALS: Equal, round and reactive pupils present and EOMs intact bilaterally PUPIL: Yes Equal, round and reactive pupils present Neck/C-Spine: OTHER: Examined in the c-collar. She does have some tenderness to the lower cervical spine. Minimal tenderness to the upper C-spine. Chest: COMMONS NORMALS: normal inspection of the chest CHEST: No tenderness Resp: COMMON NORMALS: normal respiratory effort, No use of accessory muscles and clear to auscultation bilaterally AUSCULTATION: clear to auscultation bilaterally Cardio: COMMON NORMALS: regular rate, regular rhythm and No murmurs present (Cardio) RATE: regular rate RHYTHM: regular rhythm Neuro: COMMON NORMALS: patient oriented x3 SENSORIUM/ORIENTATION: Yes alert Course Vital Signs: Vital signs: Vital Signs Temperature 96.9 F L 08/19/20 04:56 Pulse Rate 120 H 08/19/20 07:04 Respiratory Rate 18 08/19/20 07:04 Blood Pressure 110/74 08/19/20 07:04 Pulse Oximetry 95 08/19/20 07:04 MDM - Fall MDM Narrative: Medical decision making narrative: C-spine CT shows a stable appearing fracture from prior. There is no new fracture, no displacement. Discharge Plan Discharge Patient Disposition: Home Clinical Impression: Closed dens fracture Qualifiers: Encounter type: subsequent encounter Fracture healing: with routine healing Qualified Code(s): S12.100D - Unspecified displaced fracture of second cervical vertebra, subsequent encounter for fracture with routine healing Condition: Stable Prescriptions: No Action gabapentin 100 mg capsule 200 mg PO TID@09,12,23 RF: 0 venlafaxine 150 mg capsule,extended release 24hr 150 mg PO DAILY@09 Qty: 30 RF: 2 hydrocodone-acetaminophen 10-325 mg tablet 1 tab PO Q6H PRN (Reason: Pain) RF: 0 atorvastatin 80 mg Tablet 80 mg PO BEDTIME@20 RF: 0 spironolactone 25 mg Tablet 25 mg PO DAILY@0900 RF: 0 Glucerna 1.5 Warner 0.08-1.5 gram-kcal/mL Liquid 5 ea feeding tube DAILY PRN (Reason: malnutrition) RF: 0 buspirone 15 mg tablet 15 mg PO BID Qty: 20 RF: 0 buspirone 15 mg tablet 15 mg PO BID Qty: 60 RF: 0 metformin 1,000 mg Tablet 1,000 mg PO BID@, RF: 0 aspirin 81 mg Tablet,Delayed Release (Dr/Ec) 81 mg PO DAILY@09 RF: 0 sodium chloride 1 gram tablet 1 g PO BID@, RF: 0 clopidogrel 75 mg tablet 75 mg PO DAILY@09 RF: 0 Hold Instructions: Resume on 07/25/20. HOLD UNTIL SEEN BY GEN SURGERY OR PMD fludrocortisone 0.1 mg tablet 0.1 mg PO DAILY@09 RF: 0 loperamide 2 mg Tablet 2 - 4 mg PO PRN RF: 0 acetaminophen [Tylenol Extra Strength] 500 mg Tablet 1,000 mg PO Q4H PRN (Reason: Pain) RF: 0 acetaminophen 325 mg Tablet 650 mg PO Q8H PRN (Reason: Pain) Qty: 60 RF: 0 levothyroxine 50 mcg Tablet 50 mcg PO DAILY@0800 Qty: 30 RF: 0 methocarbamol 750 mg tablet 1,500 mg PO TID PRN (Reason: MUSCLE SPASMS) RF: 0 metoclopramide HCl [Reglan] 10 mg tablet 10 mg PO Q6H PRN (Reason: nausea and vomiting) Qty: 20 RF: 0 vancomycin 125 mg capsule 125 mg PO Q6H Qty: 105 RF: 0 insulin aspart U-100 [Novolog Flexpen U-100 Insulin] 100 unit/mL (3 mL) Insulin Pen See Rx Instructions .ROUTE .COMPLEX Qty: 0 RF: 0 trazodone 100 mg tablet 100 mg PO BEDTIME PRN (Reason: insomnia) RF: 0 prednisone 1 mg tablet 4 mg PO DAILY@09 RF: 0 Ativan 1 mg tablet 1 mg PO Q8H PRN (Reason: anxiety) Qty: 3 RF: 0 Discharge Orders: Discharge ED (Routine); Ordered 08/19/20 Ordered By: Chema Acosta Referrals: Thu Flores, BUILD AUTOMATION ENGINEER [Primary Care Provider] - Patient Instructions: Cervical Fracture (ED), Opioid Safety Activity Restrictions/Additional Instructions: Your scan showed a stable fracture with no new fractures and no movement of the known fracture. Continue your brace, and follow-up with the neurosurgeon as directed. Ice may help with pain for the next couple of days. Coding Level of Care Code ED Audio Visual Aide for Navid Simons
== END 2020-08-19 07:04 | disposition home or self-care (01) ==
PROVIDERS: Emergency Provider Emergency Medicine; PCP Nurse Practitioner
DX: S12.100A Unspecified displaced fracture of second cervical vertebra, initial encounter for closed fracture (principal); Z79.02 Long term (current) use of antithrombotics/antiplatelets; Z79.82 Long term (current) use of aspirin; Z79.4 Long term (current) use of insulin; I13.0 Hypertensive heart and chronic kidney disease with heart failure and stage 1 through stage 4 chronic kidney disease, or unspecified chronic kidney disease; E11.22 Type 2 diabetes mellitus with diabetic chronic kidney disease; N18.2 Chronic kidney disease, stage 2 (mild); I50.32 Chronic diastolic (congestive) heart failure; E78.5 Hyperlipidemia, unspecified; F17.210 Nicotine dependence, cigarettes, uncomplicated; W18.2XXA Fall in (into) shower or empty bathtub, initial encounter
CPT/HCPCS: 72125; 99283

== ENCOUNTER 2020-08-21 06:00 | Outpatient (RCR) | payer OTHER, MEDICARE, SELFPAY | END 2020-09-19 23:59 | disposition home or self-care (01) | LOC: SST 06:00 | PROVIDERS: PCP Nurse Practitioner; Visit Provider Nurse Practitioner Family | DX: R13.19 Other dysphagia (principal) | CPT/HCPCS: 92526 ==

== ENCOUNTER 2020-08-24 11:16 | Outpatient (CLI) | payer OTHER, MEDICARE, SELFPAY ==
--- NOTE | 2020-08-24 11:29 | FL_ITS ---
WS: [id number] Modified barium swallow, 08/24/2020 Clinical Data: Other dysphagia Comparison: None. Fluoroscopy time: 1.3 minutes. Findings: The patient had oral motor weakness and there was poor bolus propulsion. There was penetration but no aspiration with liquids. There was pharyngeal weakness. The upper esophagus showed dysmotility. FL/FL barium swallow modifd [id number] Impression: 1. Oral and pharyngeal weakness. 2. Poor bolus propulsion from the oral cavity. 3. Penetration without aspiration with liquids. 4. Dysmotility of the upper esophagus.
== END 2020-08-24 11:17 | disposition home or self-care (01) ==
LOC: RAD 11:19
PROVIDERS: PCP Nurse Practitioner; Visit Provider Nurse Practitioner Family
DX: R13.10 Dysphagia, unspecified (principal)
CPT/HCPCS: 74230; 92611

== ENCOUNTER 2020-09-20 06:00 | Outpatient (RCR) | payer OTHER, MEDICARE, SELFPAY | END 2020-10-20 23:59 | disposition home or self-care (01) | LOC: SST 06:00 | PROVIDERS: PCP Nurse Practitioner; Visit Provider Nurse Practitioner Family | DX: R13.19 Other dysphagia (principal) | CPT/HCPCS: 92507 ==

== ENCOUNTER 2020-10-22 14:44 | Emergency (ER) | payer OTHER, MEDICARE, SELFPAY ==
[2020-10-22 15:33] LABS: Glucose Point of Care 176 mg/dL (70-110)
== END 2020-10-22 15:37 | disposition left against medical advice (07) ==
PROVIDERS: Emergency Provider Family Medicine; PCP Nurse Practitioner
DX: Z53.21 Procedure and treatment not carried out due to patient leaving prior to being seen by health care provider (principal)
CPT/HCPCS: 36416; 82962

== ENCOUNTER → 2020-10-23 15:42 | Outpatient (BNVA) | payer OTHER, MEDICARE, SELFPAY | PROVIDERS: PCP Nurse Practitioner; Visit Provider Nurse Practitioner Family | DX: Z20.822 Contact with and (suspected) exposure to COVID-19 (principal) | CPT/HCPCS: 87635 ==

== ENCOUNTER 2020-10-26 04:29 | Emergency (ER) | payer OTHER, MEDICARE, SELFPAY ==
[2020-10-26 04:37] VITALS: BP 157/102; PULSE 99; RESP 18; TEMP 36.2; O2SAT 97; BMI 26.0
--- NOTE | 2020-10-26 04:47 | CTR_ITS ---
PROCEDURE INFORMATION: Exam: CT Cervical Spine Without Contrast Exam date and time: 10/26/2020 4:47 AM Age: 65 years old Clinical indication: Injury or trauma; Blunt trauma; Patient HX: Fall from porch this morning. History of prior c2 fracture. C collar in place. TECHNIQUE: Imaging protocol: Computed tomography images of the cervical spine without contrast. Radiation optimization: All CT scans at this facility use at least one of these dose optimization techniques: automated exposure control; mA and/or kV adjustment per patient size (includes targeted exams where dose is matched to clinical indication); or iterative reconstruction. COMPARISON: CT cervical spin wo con* [id number] 08/19/2020 6:13 AM RADIATION DOSE METRICS: Total DLP (mGy-cm): 618.22 FINDINGS: Vertebrae: There are marked degenerative changes present. Normal alignment. No new acute fractures. Again seen is the old fracture through the base of the dens. There appears to be increased posterior displacement of the dens and C1 compared to the prior exam. This now measures 4.9 mm compared to 2.7 mm previously. There is surrounding pannus formation. The anterior arch of C1 travels with the dens consistent with an intact transverse ligament. Soft tissues: Unremarkable. Lungs: Lung apices are normal. CT/CT cervical spin wo con* [id number] IMPRESSION: Increasing posterior displacement of the previous C2 fracture which may be due to the acute injury. No other acute fractures are seen. Radiation Dose CTDIVOL = (mGy): DLP = 618.22 (mGy-cm)
--- NOTE | 2020-10-26 04:47 | CTR_ITS ---
PROCEDURE INFORMATION: Exam: CT Head Without Contrast Exam date and time: 10/26/2020 4:47 AM Age: 65 years old Clinical indication: Injury or trauma; Blunt trauma (contusions or hematomas); Patient HX: Fall from porch this morning. Lac to occiput. TECHNIQUE: Imaging protocol: Computed tomography of the head without contrast. Radiation optimization: All CT scans at this facility use at least one of these dose optimization techniques: automated exposure control; mA and/or kV adjustment per patient size (includes targeted exams where dose is matched to clinical indication); or iterative reconstruction. COMPARISON: CT head wo con* [id number] 07/04/2020 10:06 AM RADIATION DOSE METRICS: Total DLP (mGy-cm): 1140.41 FINDINGS: Brain: Age appropriate atrophy and small vessel ischemic change. No evidence of intracranial hemorrhage, mass effect, midline shift or extra-axial fluid collections. Midline structures are normal. Moralez-white matter differentiation is normal. Cerebral ventricles: No ventriculomegaly. Paranasal sinuses: Mucosal thickening in the ethmoid, sphenoid and frontal sinuses. Mastoid air cells: Visualized mastoid air cells are well aerated. Vasculature: Carotid and vertebral artery atherosclerotic calcification. Bones/joints: Unremarkable. No acute fracture. Soft tissues: Unremarkable. CT/CT head wo con* [id number] IMPRESSION: No acute intracranial injury. Radiation Dose CTDIVOL = (mGy): DLP = 1140.41 (mGy-cm)
--- NOTE | 2020-10-26 05:00 | W.ED.FALL ---
HPI - Fall General: Chief Complaint: Fall Stated Complaint: fall,head injury Time Seen by Provider: 10/26/20 04:38 Source: patient Mode of arrival: ambulatory Limitations: no limitations History of Present Illness: HPI Narrative: 65-year-old female states she was walking outside and fell backward on her porch. She struck the back of her head roughly an hour ago and does have a 1.45 cm laceration to her posterior scalp. She denies any loss conscious. States she does have a slight headache. She denies any neck pain but she did have a recent neck surgery. Denies any other injuries. Denies any weakness in her arms or legs. She has been ambulatory since then. complaint: fall Associated symptoms-after fall: Denies abdominal pain, chest pain, headache(s) or neck pain Review of Systems Const: Denies: fever(s), chills, body aches or change in appetite Eyes: Denies: blurry vision or eye discomfort ENMT: Denies: throat pain or dental pain Card: Denies: chest pain Resp: Denies: dyspnea GI: Denies: abdominal pain, nausea, vomiting or diarrhea : Denies: dysuria Musc: Denies: neck pain or back pain Skin/Breast: Denies: rash Neuro: Denies: headache(s) Psych: Denies: depression Jeremiah/Lymph: Denies: easy bruising All/Imm: Denies: urticaria PFSH ED PFSH: Medical History Anemia C. 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, recurrent severe without psychotic features Morbid obesity Post-traumatic stress disorder, chronic Surgical History H/O esophagogastroduodenoscopy H/O: hysterectomy History of bunionectomy bilateral Hx of cholecystectomy Status post colonoscopy Family History Mother Hypertension Diabetes Father Hypertension Asthma Other CAD (coronary artery disease) Cancer Denies family history of Anesthesia complication Bleeding disorder Social History Smoking and tobacco status: current every day smoker cigars Cigars smoked per week: 35 Years smoked cigars: 53 Cigar details: 1 PPD Quit status (tobacco): has tried quititng Second hand smoke exposure: Yes Smoking risk assessment/counseling performed?: No Alcohol intake: former Former alcohol use details: Reportedly has not had any alcohol since June Household members: spouse Housing: Manufactured/Mobile home Marital status: Current occupational status: retired History of recent travel: No Physical Exam Const: COMMON NORMALS: no acute distress, patient oriented x3 and healthy appearing HENMT: COMMON NORMALS: normocephalic HEAD & SCALP: normocephalic OTHER: 1.5cm laceration to posterior scalp Eye: COMMON NORMALS: Equal, round and reactive pupils present and EOMs intact bilaterally PUPIL: Yes Equal, round and reactive pupils present Neck/C-Spine: COMMON NORMALS: full ROM and supple Chest: COMMONS NORMALS: normal inspection of the chest and normal palpation of entire chest wall Resp: COMMON NORMALS: normal respiratory effort, No retractions, No use of accessory muscles and clear to auscultation bilaterally AUSCULTATION: clear to auscultation bilaterally Cardio: COMMON NORMALS: regular rate, regular rhythm and No murmurs present (Cardio) RATE: regular rate RHYTHM: regular rhythm GI: COMMON NORMALS: Normal to inspection, nondistended, normoactive bowel sounds present, Soft to palpation, non-tender and no masses PALPATION: Yes Soft to palpation Extremity: COMMON NORMALS: normal to inspection and full ROM Neuro: COMMON NORMALS: patient oriented x3, moves all extremities and no focal motor deficits Psych: COMMON NORMALS: mental status grossly normal, Normal thought process present and cooperative THOUGHT PROCESS: Normal thought process present Skin: COMMON NORMALS: no rashes or lesions noted and no wounds GENERAL SKIN EXAM: no rashes or lesions noted Procedures Laceration Laceration 1: Site: scalp Size (cm): 1.5 Description: linear Local Anesthetic: lidocaine 1% Amount of anesthesia used (mL): 5 Pre-repair: wound explored and irrigated extensively Skin layer closed with: other (4 isaura) Course Vital Signs: Vital signs: Vital Signs Temperature 97.1 F L 10/26/20 04:37 Pulse Rate 99 10/26/20 04:37 Respiratory Rate 18 10/26/20 04:37 Blood Pressure 157/102 10/26/20 04:37 Pulse Oximetry 97 10/26/20 04:37 MDM - Fall MDM Narrative: Medical decision making narrative: Patient presents here head laceration after a fall. Patient has a chronic dens fracture and I did inform her she has increasing displacement and she is to follow-up with her spine surgeon that she has been seeing them at home. She is to continue to wear her [place] collar. She is to have the sutures out in her head 1 week. Patient stable for discharge return if worsening. Imaging Data^: CT Head: Attestation: I personally reviewed and interpreted this imaging study as follows: Radiologist's impression: [address] [address] [address] Scan Report Signed Patient: Ingris Mendosa Unit #: [id number] : 1955 Age/Sex: 65 / F ADM Date: 10/26/20 Loc: ER Room/Bed: Attending Dr: Ordering Provider/Ordering MD: Melissa Garcia MD Date of Service: 10/26/20 Procedure(s): CT head wo con* [id number] Accession Number(s): [id number] Report Number: [id number] PROCEDURE INFORMATION: Exam: CT Head Without Contrast Exam date and time: 10/26/2020 4:47 AM Age: 65 years old Clinical indication: Injury or trauma; Blunt trauma (contusions or hematomas); Patient HX: Fall from porch this morning. Lac to occiput. TECHNIQUE: Imaging protocol: Computed tomography of the head without contrast. Radiation optimization: All CT scans at this facility use at least one of these dose optimization techniques: automated exposure control; mA and/or kV adjustment per patient size (includes targeted exams where dose is matched to clinical indication); or iterative reconstruction. COMPARISON: CT head wo con* [id number] 07/04/2020 10:06 AM RADIATION DOSE METRICS: Total DLP (mGy-cm): 1140.41 FINDINGS: Brain: Age appropriate atrophy and small vessel ischemic change. No evidence of intracranial hemorrhage, mass effect, midline shift or extra-axial fluid collections. Midline structures are normal. Moralez-white matter differentiation is normal. Cerebral ventricles: No ventriculomegaly. Paranasal sinuses: Mucosal thickening in the ethmoid, sphenoid and frontal sinuses. Mastoid air cells: Visualized mastoid air cells are well aerated. Vasculature: Carotid and vertebral artery atherosclerotic calcification. Bones/joints: Unremarkable. No acute fracture. Soft tissues: Unremarkable. CT/CT head wo con* [id number] IMPRESSION: No acute intracranial injury. Radiation Dose CTDIVOL = (mGy): DLP = 1140.41 (mGy-cm) Dictated By: Benjamin Kwon MD Signed By: Benjamin Kwon MD Signed Date/Time: 10/26/20527 DD/ [address]: Radiologist's impression: [address] [address] [address] Scan Report Signed Patient: Ingris Mendosa Unit #: [id number] : 1955 Age/Sex: 65 / F ADM Date: 10/26/20 Loc: ER Room/Bed: Attending Dr: Ordering Provider/Ordering MD: Melissa Garcia MD Date of Service: 10/26/20 Procedure(s): CT cervical spin wo con* [id number] Accession Number(s): [id number] Report Number: [id number] PROCEDURE INFORMATION: Exam: CT Cervical Spine Without Contrast Exam date and time: 10/26/2020 4:47 AM Age: 65 years old Clinical indication: Injury or trauma; Blunt trauma; Patient HX: Fall from porch this morning. History of prior c2 fracture. C collar in place. TECHNIQUE: Imaging protocol: Computed tomography images of the cervical spine without contrast. Radiation optimization: All CT scans at this facility use at least one of these dose optimization techniques: automated exposure control; mA and/or kV adjustment per patient size (includes targeted exams where dose is matched to clinical indication); or iterative reconstruction. COMPARISON: CT cervical spin wo con* [id number] 08/19/2020 6:13 AM RADIATION DOSE METRICS: Total DLP (mGy-cm): 618.22 FINDINGS: Vertebrae: There are marked degenerative changes present. Normal alignment. No new acute fractures. Again seen is the old fracture through the base of the dens. There appears to be increased posterior displacement of the dens and C1 compared to the prior exam. This now measures 4.9 mm compared to 2.7 mm previously. There is surrounding pannus formation. The anterior arch of C1 travels with the dens consistent with an intact transverse ligament. Soft tissues: Unremarkable. Lungs: Lung apices are normal. CT/CT cervical spin wo con* [id number] IMPRESSION: Increasing posterior displacement of the previous C2 fracture which may be due to the acute injury. No other acute fractures are seen. Radiation Dose CTDIVOL = (mGy): DLP = 618.22 (mGy-cm) Dictated By: Benjamin Kwon MD Signed By: Benjamin Kwon MD Signed Date/Time: 10/26/20531 DD/ 9 Discharge Plan Discharge Patient Disposition: Home Clinical Impression: Closed dens fracture Qualifiers: Encounter type: subsequent encounter Laceration of head Qualifiers: Encounter type: initial encounter Location of open wound of head: scalp Foreign body presence: without foreign body Qualified Code(s): S01.01XA - Laceration without foreign body of scalp, initial encounter Condition: Stable Prescriptions: No Action gabapentin 100 mg capsule 200 mg PO TID@,,23 RF: 0 venlafaxine 150 mg capsule,extended release 24hr 150 mg PO DAILY@09 Qty: 30 RF: 2 hydrocodone-acetaminophen 10-325 mg tablet 1 tab PO Q6H PRN (Reason: Pain) RF: 0 atorvastatin 80 mg Tablet 80 mg PO BEDTIME@20 RF: 0 spironolactone 25 mg Tablet 25 mg PO DAILY@0900 RF: 0 Glucerna 1.5 Warner 0.08-1.5 gram-kcal/mL Liquid 5 ea feeding tube DAILY PRN (Reason: malnutrition) RF: 0 buspirone 15 mg tablet 15 mg PO BID Qty: 20 RF: 0 buspirone 15 mg tablet 15 mg PO BID Qty: 60 RF: 0 metformin 1,000 mg Tablet 1,000 mg PO BID@,20 RF: 0 aspirin 81 mg Tablet,Delayed Release (Dr/Ec) 81 mg PO DAILY@09 RF: 0 sodium chloride 1 gram tablet 1 g PO BID@09,20 RF: 0 fludrocortisone 0.1 mg tablet 0.1 mg PO DAILY@09 RF: 0 loperamide 2 mg Tablet 2 - 4 mg PO PRN RF: 0 acetaminophen [Tylenol Extra Strength] 500 mg Tablet 1,000 mg PO Q4H PRN (Reason: Pain) RF: 0 acetaminophen 325 mg Tablet 650 mg PO Q8H PRN (Reason: Pain) Qty: 60 RF: 0 levothyroxine 50 mcg Tablet 50 mcg PO DAILY@0800 Qty: 30 RF: 0 methocarbamol 750 mg tablet 1,500 mg PO TID PRN (Reason: MUSCLE SPASMS) RF: 0 metoclopramide HCl [Reglan] 10 mg tablet 10 mg PO Q6H PRN (Reason: nausea and vomiting) Qty: 20 RF: 0 insulin aspart U-100 [Novolog Flexpen U-100 Insulin] 100 unit/mL (3 mL) Insulin Pen See Rx Instructions .ROUTE .COMPLEX Qty: 0 RF: 0 trazodone 100 mg tablet 100 mg PO BEDTIME PRN (Reason: insomnia) RF: 0 prednisone 1 mg tablet 4 mg PO DAILY@09 RF: 0 Ativan 1 mg tablet 1 mg PO Q8H PRN (Reason: anxiety) Qty: 3 RF: 0 Discharge Orders: Discharge ED (Routine); Ordered 10/26/20 Ordered By: Melissa Garcia Referrals: Thu Flores, NETWORK OPERATIONS CENTER TECHNICIAN [Primary Care Provider] - Discharge Diet: Advance as tolerated Discharge Activity: Resume usual activity Patient Instructions: Fall Prevention (ED), Opioid Safety Coding Level of Care Code ED Insurance Marketing Rep for Navid Fwd Exam Comprehensive
[2020-10-26] MEDS: HYDROcodone-acetaminophen 7.5-325 mg Tablet 1 TAB PO (06:09)
[2020-10-26 06:12] VITALS: BP 156/73; PULSE 93; RESP 16; TEMP 36.6; O2SAT 98
== END 2020-10-26 06:28 | disposition home or self-care (01) ==
LOC: ER 05:38
PROVIDERS: Emergency Provider Emergency Medicine; PCP Nurse Practitioner
DX: S01.01XA Laceration without foreign body of scalp, initial encounter (principal); S12.110A Anterior displaced Type II dens fracture, initial encounter for closed fracture; I13.0 Hypertensive heart and chronic kidney disease with heart failure and stage 1 through stage 4 chronic kidney disease, or unspecified chronic kidney disease; E11.22 Type 2 diabetes mellitus with diabetic chronic kidney disease; N18.30 Chronic kidney disease, stage 3 unspecified; I50.32 Chronic diastolic (congestive) heart failure; E78.5 Hyperlipidemia, unspecified; F17.210 Nicotine dependence, cigarettes, uncomplicated; Z79.82 Long term (current) use of aspirin; Z79.4 Long term (current) use of insulin; W19.XXXA Unspecified fall, initial encounter
CPT/HCPCS: 12001; 70450; 72125; 99283

== ENCOUNTER → 2020-11-06 10:51 | Outpatient (BNVA) | payer OTHER, SELFPAY | PROVIDERS: PCP Nurse Practitioner; Visit Provider Internal Medicine Cardiovascular Disease | DX: E87.1 Hypo-osmolality and hyponatremia (principal); D64.9 Anemia, unspecified | CPT/HCPCS: 80053; 83735; 85025 ==

== ENCOUNTER 2020-11-11 06:51 | Emergency (ER) | payer OTHER, MEDICARE, SELFPAY ==
[2020-11-11 06:55] VITALS: BP 158/90; PULSE 117; RESP 20; TEMP 36.1; O2SAT 99; BMI 26.4
--- NOTE | 2020-11-11 06:56 | ED_ITS ---
HPI - General Adult General: Chief complaint: Nausea/Vomiting/Diarrhea Stated complaint: N/V (2 DAYS) WEAKNESS Time Seen by Provider: 11/11/20 06:56 History of Present Illness: HPI narrative: Ms Mendosa is a 65-year-old lady with complex past medical history including TIA, insulin-dependent diabetes, diastolic heart failure, CKD, hypertension, hyperlipidemia, hypothyroidism, and neck fracture who presents to the emergency department due to generalized malaise. Symptom onset was gradual approximately 1 week ago and she endorses decreased p.o. intake and generalized fatigue/malaise. Since that time she has also endorsed generalized aching abdominal pain which is moderate in intensity. She has had nausea and vomiting the past 2 days. She endorses diarrhea. Overall the course of symptoms has been worsening. No other specific exacerbating alleviating factors that the patient can identify. Review of Systems General: Reports: 10 or more systems reviewed and unremarkable except in HPI and below Narrative: CONSTITUTIONAL: Low-grade fever, positive for fatigue and generalized weakness EYES - denies pain, denies loss of vision NOSE - denies congestion or rhinorrhea. THROAT - denies sore throat or difficulty swallowing. CARDIOVASCULAR - denies chest pain and palpitations RESPIRATORY - denies shortness of breath, chronic cough persists GASTROINTESTINAL -see HPI GENITOURINARY - denies dysuria or urinary frequency MUSCULOSKELETAL- denies deformity or pain. Patient is in [place] collar SKIN - denies rashes or new changed skin lesions NEUROLOGIC - denies focal weakness. Baseline numbness and tingling from neck fracture HEMATOLOGIC/LYMPHATIC - denies easy bruising or lymphadenopathy. [facility] ED PFSH: Medical History Anemia C. 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, recurrent severe without psychotic features Morbid obesity Post-traumatic stress disorder, chronic Surgical History H/O esophagogastroduodenoscopy H/O: hysterectomy History of bunionectomy bilateral Hx of cholecystectomy Status post colonoscopy Family History Mother Hypertension Diabetes Father Hypertension Asthma Other CAD (coronary artery disease) Cancer Denies family history of Anesthesia complication Bleeding disorder Social History Smoking and tobacco status: current every day smoker cigars Cigars smoked per week: 35 Years smoked cigars: 53 Cigar details: 1 PPD Quit status (tobacco): has tried quititng Second hand smoke exposure: Yes Smoking risk assessment/counseling performed?: No Alcohol intake: former Former alcohol use details: Reportedly has not had any alcohol since June Household members: spouse Housing: Manufactured/Mobile home Marital status: Current occupational status: retired History of recent travel: No Physical Exam Narrative: EXAM NARRATIVE: GENERAL/CONSTITUTIONAL -chronically ill-appearing. No acute distress. Eyes - PERRL, no conjunctival injection ENMT - Atraumatic external nose and ears. Moist mucous membranes NECK - supple. trachea midline CARDIOVASCULAR - regular rate and rhythm. RESPIRATORY -clear to auscultation bilaterally. No retractions or accessory muscle use. ABDOMEN/GI -mild generalized tenderness to palpation. Nondistended. No tenderness to percussion or evidence of peritonitis MSK - Extremities without obvious deformity or tenderness to palpation SKIN - Warm, Dry NEURO - alert and appropriately oriented. strength and sensation intact. Moves all extremities equally. PSYCH - Appropriate mood and affect Course ED course: - Patient was seen and evaluated by me at bedside - Patient placed on cardiac monitors, IV access obtained - Initial evaluation notable for chronically ill appearance, no acute distress. No evidence of peritonitis on abdominal exam. -Symptom cares given - Labs notable for Mild leukocytosis, metabolic panel similar to prior though not normal. Delta troponin negative. No evidence of urinary tract infection. - Imaging notable for no significant abnormality to explain the patient's symptoms - Upon serial reexamination after treatment the patient was improved with near complete resolution. Patient was able to tolerate p.o. intake. - Based on patient history, evaluation, labs, and imaging as interpreted the most likely cause of the patient's condition is nonspecific nausea, vomiting, diarrhea - The results of ED evaluation were discussed with the patient including prescriptions and/or symptomatic cares including appropriate and responsible use, followup plan, and return precautions. The patient verbalized understanding and felt safe for discharge. - Patient discharged in satisfactory condition. Vital Signs: Vital signs: Vital Signs Temperature 97.0 F L 11/11/20 06:55 Pulse Rate 81 11/11/20 10:12 Respiratory Rate 15 11/11/20 11:00 Blood Pressure 147/88 11/11/20 10:12 Pulse Oximetry 96 11/11/20 10:12 [facility] - General Adult Medical Records: Attestation: I reviewed the patient's medical records. Lab Data: Attestation: I reviewed the patient's lab results. Labs: Lab Results 11/11/20 11/11/20 11/11/20 Range/Units 08:00 08:00 08:00 WBC 12.2 H (4.0-10.0) 10^3/ uL RBC 4.31 (4.1-5.3) 10^6/u L Hgb 12.8 (11.5-15.3) g/dL Hct 38.2 (37.0-47.0) % MCV 88.6 (81-99) fl MCH 29.7 (28.0-34.0) pg MCHC 33.5 (30.0-36.0) g/dL RDW 17.6 H (12.1-15.1) % Plt Count 335 (130-400) 10^3/c mm MPV 10.2 (7.4-10.4) fL Neut % (Auto) 87.6 % Lymph % (Auto) 6.5 % [place] % (Auto) 4.9 % Eos % (Auto) 0.5 % Baso % (Auto) 0.2 % Neut # (Auto) 10.64 H (1.8-7.7) 10^3/u L Lymph # (Auto) 0.8 (0.8-4.8) 10^3/u L [place] # (Auto) 0.6 (0.2-0.9) 10^3/u L Eos # (Auto) 0.1 (0.0-0.8) 10^3/u L Baso # (Auto) 0.0 (0.0-0.1) 10^3/u L Nucleated RBC % (a uto) 0 % Nucleated RBCs # 0.0 /100WBC Sodium 132 L (136-145) mmol/L Potassium 3.6 (3.5-5.1) mmol/L Chloride 92 L (98-107) mmol/L Carbon Dioxide 26 (22-29) mmol/L Anion Gap 17.6 (5-19) BUN 4 L (8-23) mg/dL Creatinine 0.6 (0.5-0.9) mg/dL GFR Calculation 100.0 (90-130) mL/min Glucose 184 H (65-115) mg/dL Calculated Osmolal ity 276 L (285-295) mOsm/k g Calcium 8.0 L (8.5-10.5) mg/dL Total Bilirubin 0.5 (0.15-1.2) mg/dL AST 264 H (0-32) U/L ALT 85 H (0-33) U/L Alkaline Phosphata se 152 H (35-105) IU/L Troponin T Baselin e 12 H (0-10) ng/L Troponin T 120 Min osage (0-10) ng/L Delta Troponin T (0-10) ABS# Total Protein 5.7 L (6.6-8.7) g/dL Albumin 2.9 L (3.5-5.2) g/dL Globulin 2.8 (1.3-4.6) g/dL Lipase 9 L (13-60) U/L TSH 1.20 (0.27-4.20) uIU/ mL Urine Color (Yellow) Urine Appearance (CLEAR) Urine pH (5-7) Ur Specific Gravit y (1.005-1.030) Urine Protein (Negative) Urine Glucose (UA) (Normal) Urine Ketones (Negative) Urine Blood (Negative) Urine Nitrate (Negative) Urine Bilirubin (Negative) Urine Urobilinogen (Negative) mg/dL Ur Leukocyte Kiara ase (Negative) 11/11/20 11/11/20 Range/Units 08:00 10:15 WBC (4.0-10.0) 10^3/ uL RBC (4.1-5.3) 10^6/u L Hgb (11.5-15.3) g/dL Hct (37.0-47.0) % MCV (81-99) fl MCH (28.0-34.0) pg MCHC (30.0-36.0) g/dL RDW (12.1-15.1) % Plt Count (130-400) 10^3/c mm MPV (7.4-10.4) fL Neut % (Auto) % Lymph % (Auto) % [place] % (Auto) % Eos % (Auto) % Baso % (Auto) % Neut # (Auto) (1.8-7.7) 10^3/u L Lymph # (Auto) (0.8-4.8) 10^3/u L [place] # (Auto) (0.2-0.9) 10^3/u L Eos # (Auto) (0.0-0.8) 10^3/u L Baso # (Auto) (0.0-0.1) 10^3/u L Nucleated RBC % (a uto) % Nucleated RBCs # /100WBC Sodium (136-145) mmol/L Potassium (3.5-5.1) mmol/L Chloride (98-107) mmol/L Carbon Dioxide (22-29) mmol/L Anion Gap (5-19) BUN (8-23) mg/dL Creatinine (0.5-0.9) mg/dL GFR Calculation (90-130) mL/min Glucose (65-115) mg/dL Calculated Osmolal ity (285-295) mOsm/k g Calcium (8.5-10.5) mg/dL Total Bilirubin (0.15-1.2) mg/dL AST (0-32) U/L ALT (0-33) U/L Alkaline Phosphata se (35-105) IU/L Troponin T Baselin e (0-10) ng/L Troponin T 120 Min osage 11.39 H (0-10) ng/L Delta Troponin T -0.61 L (0-10) ABS# Total Protein (6.6-8.7) g/dL Albumin (3.5-5.2) g/dL Globulin (1.3-4.6) g/dL Lipase (13-60) U/L TSH (0.27-4.20) uIU/ mL Urine Color Yellow (Yellow) Urine Appearance Clear (CLEAR) Urine pH 5 (5-7) Ur Specific Gravit y 1.010 (1.005-1.030) Urine Protein Neg (Negative) Urine Glucose (UA) Norm (Normal) Urine Ketones Negative (Negative) Urine Blood Neg (Negative) Urine Nitrate Negative (Negative) Urine Bilirubin 1+ H (Negative) Urine Urobilinogen 1 H (Negative) mg/dL Ur Leukocyte Kiara ase Negative (Negative) EKG Data^: EKG 1: Attestation: I personally reviewed and interpreted this EKG as follows: EKG interpretation date: 11/11/20 EKG interpretation time: 07:30 Prior EKG tracings: available for review Interpretation: Twelve-lead EKG shows a regular sinus rhythm with a rate of 100. NC interval 127, QRS duration 87, QTc 418. Normal axis. Interpretation: sinus rhythm. Computer generated interpretation: Abdomen/Pelvis CT 11/11/20 08:38 IMPRESSION: 1. Prior cholecystectomy. 2. Bilateral adrenal lipomatous adenomas, stable. 3. Increased right abdominal colonic fluid consistent with any diarrheal illness. Clinical correlation is recommended. 4. Prior hysterectomy. 5. Diverticulosis. 6. Noncalcified new right lower lobe pulmonary nodule. For patients at low risk (minimal or absent history of smoking and of other known risk factors), no routine follow-up is indicated. For patients at high risk (history of smoking or of other known risk factors), consider optional CT at 12 months. (Charlotte et al., Fleischner Society, 2017). 7. Coronary atherosclerosis. COMMENTS: Consistent with the [place] [employer]'s Incidental Findings Committee white paper (J Am Mallorie Radiol 2017): Any incidental adrenal lesion less than or equal to 1 cm is likely benign. No follow-up imaging is recommended for these lesions per consensus recommendations based on imaging criteria. Further lab evaluation could be pursued if warranted based on clinical findings. Radiation Dose CTDIVOL = (mGy): DLP = 1464.79 (mGy-cm) Discharge Plan Discharge Patient Disposition: Home Clinical Impression: Abdominal pain, Nausea and vomiting, Chronic pain Condition: Stable Prescriptions: New Percocet 5-325 mg tablet 1 tab PO Q4H PRN (Reason: pain) Qty: 14 RF: 0 No Action gabapentin 100 mg capsule 200 mg PO TID@,, RF: 0 promethazine 25 mg tablet 25 mg PO TID PRN (Reason: Nausea) RF: 0 sucralfate 1 gram tablet 1 g PO BID RF: 0 pantoprazole 40 mg tablet,delayed release (DR/EC) 40 mg PO DAILY RF: 0 metoprolol tartrate 50 mg tablet 25 mg PO BID RF: 0 hydrocodone-acetaminophen 10-325 mg tablet 1 tab PO Q6H PRN (Reason: Pain) RF: 0 magnesium L-lactate [Magtab] 84 mg tablet extended release 84 mg PO BID Qty: 180 RF: 1 atorvastatin 80 mg Tablet 80 mg PO BEDTIME@20 RF: 0 spironolactone 25 mg Tablet 25 mg PO DAILY@0900 RF: 0 Glucerna 1.5 Warner 0.08-1.5 gram-kcal/mL Liquid 5 ea feeding tube DAILY PRN (Reason: malnutrition) RF: 0 buspirone 15 mg tablet 15 mg PO BID Qty: 60 RF: 0 metformin 1,000 mg Tablet 1,000 mg PO BID@,20 RF: 0 aspirin 81 mg Tablet,Delayed Release (Dr/Ec) 81 mg PO DAILY@09 RF: 0 sodium chloride 1 gram tablet 1 g PO BID@ RF: 0 fludrocortisone 0.1 mg tablet 0.1 mg PO DAILY@09 RF: 0 loperamide 2 mg Tablet 2 - 4 mg PO PRN RF: 0 acetaminophen 325 mg Tablet 650 mg PO Q8H PRN (Reason: Pain) Qty: 60 RF: 0 levothyroxine 50 mcg Tablet 50 mcg PO DAILY@0800 Qty: 30 RF: 0 methocarbamol 750 mg tablet 1,500 mg PO TID PRN (Reason: MUSCLE SPASMS) RF: 0 insulin aspart U-100 [Novolog Flexpen U-100 Insulin] 100 unit/mL (3 mL) Insulin Pen See Rx Instructions .ROUTE .COMPLEX Qty: 0 RF: 0 trazodone 100 mg tablet 100 mg PO BEDTIME PRN (Reason: insomnia) RF: 0 prednisone 1 mg tablet 4 mg PO DAILY@09 RF: 0 lorazepam [Ativan] 1 mg tablet 1 mg PO Q8H PRN (Reason: anxiety) Qty: 3 RF: 0 Discharge Orders: Discharge ED (Routine); Ordered 11/11/20 Ordered By: Brennan Blanchard Referrals: Thu Flores FNP [Primary Care Provider] - Discharge Diet: Clear Liquid Discharge Activity: Resume usual activity Patient Instructions: Acute Nausea and Vomiting (ED), Abdominal Pain (ED), Opioid Safety Activity Restrictions/Additional Instructions: Thank you for visiting the emergency department. You were seen and evaluated for nausea, vomiting, diarrhea, and abdominal pain. Aside from chronically abnormal labs there is no exact cause of your symptoms. We are pleased that your symptoms have improved. Please ensure that you are staying hydrated. Please return to the emergency department for worsening of your symptoms, inability to tolerate oral intake, or anything else that you are concerned about and feel needs emergency department evaluation. Coding Level of Care Code ED Customer Account Technician for Navid Simons
--- NOTE | 2020-11-11 07:14 | ECG_ITS ---
[facility] Test Date: 2020-11-11 Pat Name: Ingris Mendosa Department: Room: Gender: Female Registrar Nurses' Registry: : [id number] Requested By: Brennan Blanchard Order Number: [id number] Danny MD: Cindy Strong M.D. Measurements Intervals [place] Rate: 100 P: 56 VT: 127 QRS: 24 QRSD: 87 T: 68 QT: 361 QTc: 466 Interpretive Statements SINUS TACHYCARDIA WITH OCCASIONAL SUPRAVENTRICULAR PREMATURE COMPLEXES ABNORMAL RHYTHM ECG Compared to ECG 07/25/2020 01:46:33 Sinus rhythm no longer present Electronically Signed On 11-12-2020 13:27:27 CDT by Cindy Strong M.D. [id number]
[2020-11-11] MEDS: ondansetron 2 mg/ML SDV 2 mL 4 MG IVP (07:26)
[2020-11-11] MEDS: morphine 4 mg/mL SDV 1 mL IVP (07:26)
[2020-11-11] MEDS: sodium chloride 0.9% 1,000 ML 500 ML IV (07:26)
[2020-11-11 08:04] LABS: Add Urine Microscopic? NO; Charge for UA Resulting for Rev
[2020-11-11 08:07] LABS: Basophils % 0.2 %; Eosinophils # 0.1 10^3/uL (0.0-0.8); Eosinophils % 0.5 %; Hematocrit 38.2 % (37.0-47.0); Hemoglobin 12.8 g/dL (11.5-15.3); Lymphocytes # 0.8 10^3/uL (0.8-4.8); Lymphocytes % 6.5 %; Mean Corpuscular HGB Conc 33.5 g/dL (30.0-36.0); Mean Corpuscular Hemoglobin 29.7 pg (28.0-34.0); Mean Corpuscular Volume 88.6 fl (81-99); Mean Platelet Volume 10.2 fL (7.4-10.4); Monocytes # 0.6 10^3/uL (0.2-0.9); Monocytes % 4.9 %; Neutrophils # 10.64 10^3/uL (1.8-7.7); Neutrophils % 87.6 %; Nucleated Red Blood Cells % 0 %; Platelet Count 335 10^3/cmm (130-400); Red Blood Count 4.31 10^6/uL (4.1-5.3); Red Cell Distribution Width 17.6 % (12.1-15.1); White Blood Count 12.2 10^3/uL (4.0-10.0)
[2020-11-11 08:16] LABS: Bilirubin Urine 1+ (Negative); Blood Urine Neg (Negative); Glucose Urine UA Norm (Normal); Ketones Urine Negative (Negative); Leukocyte Esterase Urine Negative (Negative); Nitrate Urine Negative (Negative); Protein Urine Neg (Negative); Urine Appearance Clear (CLEAR); Urine Color Yellow (Yellow); Urobilinogen Urine 1 mg/dL (Negative); pH Urine 5 (5-7)
--- NOTE | 2020-11-11 08:38 | CTR_ITS ---
PROCEDURE INFORMATION: Exam: CT Abdomen And Pelvis Without Contrast Exam date and time: 11/11/2020 8:38 AM Age: 65 years old Clinical indication: Abdominal pain; Colic; Prior surgery; Additional info: Abd pain, n/v/d TECHNIQUE: Imaging protocol: Computed tomography of the abdomen and pelvis without contrast. Radiation optimization: All CT scans at this facility use at least one of these dose optimization techniques: automated exposure control; mA and/or kV adjustment per patient size (includes targeted exams where dose is matched to clinical indication); or iterative reconstruction. COMPARISON: CT abdomen pelvis w con* [id number] 07/04/2020 12:38 PM RADIATION DOSE METRICS: Total DLP (mGy-cm): 1464.79 FINDINGS: Tubes, catheters and devices: A PEG tube is noted in the stomach. Lungs: Incompletely imaged 3.2 mm noncalcified pulmonary nodule in the posterior basilar segment of the right lower lobe (LOC 54.25). Liver: Normal. No mass. Gallbladder and bile ducts: The gallbladder is surgically absent, with metallic clips in the gallbladder fossa. Pancreas: Severe pancreatic atrophy. Spleen: Normal. No splenomegaly. Adrenal glands: Left adrenal gland 13.5 mm low attenuation nodule (0.7 Hounsfield units). Right adrenal gland 12.4 mm low attenuation nodule (1.7 Hounsfield units). Kidneys and ureters: Normal. No hydronephrosis. Stomach and bowel: There is mildly increased fluid noted in the ascending and transverse colon. Sigmoid colonic diverticula are present without evidence of diverticulitis. Appendix: The vermiform appendix is normal. Intraperitoneal space: No free air. No significant fluid collection. Vasculature: Marked aortic atherosclerotic calcification without aneurysm. The iliac arteries show marked bilateral atherosclerotic calcifications without evidence of aneurysm. Calcified phleboliths are present in the lower pelvis bilaterally. Atherosclerotic coronary calcifications are noted involving the LCx and RCA coronary arteries. Lymph nodes: No enlarged lymph nodes. Urinary bladder: The urinary bladder is partially decompressed and somewhat difficult to assess. Reproductive: The uterus is status post hysterectomy. The ovaries are not identified. Bones/joints: Anterior bridging right sacroiliac joint marginal osteophytes. Multilevel lumbar spine spondylosis. Bilateral lower lumbar facet primary osteoarthritis. Grade 1 L5-S1 degenerative type anterolisthesis. Mild leftward thoracolumbar spinal curvature. Moderate-severe right, mild left hip primary osteoarthritis. Soft tissues: Unremarkable. CT/CT abdomen pelvis wo con [id number] IMPRESSION: 1. Prior cholecystectomy. 2. Bilateral adrenal lipomatous adenomas, stable. 3. Increased right abdominal colonic fluid consistent with any diarrheal illness. Clinical correlation is recommended. 4. Prior hysterectomy. 5. Diverticulosis. 6. Noncalcified new right lower lobe pulmonary nodule. For patients at low risk (minimal or absent history of smoking and of other known risk factors), no routine follow-up is indicated. For patients at high risk (history of smoking or of other known risk factors), consider optional CT at 12 months. (Charlotte et al., Fleischner Society, 2017). 7. Coronary atherosclerosis. COMMENTS: Consistent with the [employer]'s Incidental Findings Committee white paper (J Am Mallorie Radiol 2017): Any incidental adrenal lesion less than or equal to 1 cm is likely benign. No follow-up imaging is recommended for these lesions per consensus recommendations based on imaging criteria. Further lab evaluation could be pursued if warranted based on clinical findings. Radiation Dose CTDIVOL = (mGy): DLP = 1464.79 (mGy-cm)
[2020-11-11 08:56] LABS: Troponin(5th) Baseline 12 ng/L (0-10)
[2020-11-11 09:02] LABS: Alanine Aminotransferase 85 U/L (0-33); Albumin Level 2.9 g/dL (3.5-5.2); Alkaline Phosphatase 152 IU/L (35-105); Blood Urea Nitrogen 4 mg/dL (8-23); Carbon Dioxide 26 mmol/L (22-29); Chloride 92 mmol/L (98-107); Globulin 2.8 g/dL (1.3-4.6); Glucose 184 mg/dL (65-115); Lipase 9 U/L (13-60); Osmolality Calculated 276 mOsm/kg (285-295); Sodium 132 mmol/L (136-145); Total Bilirubin 0.5 mg/dL (0.15-1.2); Total Protein 5.7 g/dL (6.6-8.7)
[2020-11-11 09:10] LABS: Anion Gap 17.6 (5-19); Aspartate Amino Transferase 264 U/L (0-32); Potassium 3.6 mmol/L (3.5-5.1)
[2020-11-11 09:12] VITALS: BP 147/88; PULSE 81; RESP 15; O2SAT 96
[2020-11-11 10:12] VITALS: BP 147/88; PULSE 81; RESP 15; O2SAT 96
[2020-11-11 11:00] VITALS: RESP 15
[2020-11-11 11:06] LABS: Troponin 5 2HR 11.39 ng/L (0-10)
[2020-11-11 11:22] LABS: Troponin 5 2HR Delta -0.61 ABS# (0-10)
== END 2020-11-11 12:00 | disposition home or self-care (01) ==
PROVIDERS: Emergency Provider Emergency Medicine; PCP Nurse Practitioner
DX: R10.9 Unspecified abdominal pain (principal); R11.2 Nausea with vomiting, unspecified; G89.29 Other chronic pain; I13.0 Hypertensive heart and chronic kidney disease with heart failure and stage 1 through stage 4 chronic kidney disease, or unspecified chronic kidney disease; I50.30 Unspecified diastolic (congestive) heart failure; E11.22 Type 2 diabetes mellitus with diabetic chronic kidney disease; N18.2 Chronic kidney disease, stage 2 (mild); E78.5 Hyperlipidemia, unspecified; E03.9 Hypothyroidism, unspecified; E66.01 Morbid (severe) obesity due to excess calories; Z68.26 Body mass index [BMI] 26.0-26.9, adult; F17.290 Nicotine dependence, other tobacco product, uncomplicated; Z79.4 Long term (current) use of insulin; Z86.73 Personal history of transient ischemic attack (TIA), and cerebral infarction without residual deficits
CPT/HCPCS: 74176; 80053; 81003; 83690; 84443; 84484; 85025; 93005; 96361; 96374; 96375; 99284; J2270; J2405; J7030

== ENCOUNTER 2020-12-01 17:48 | Emergency (ER) | payer OTHER, MEDICARE, SELFPAY ==
[2020-12-01 17:53] VITALS: BP 92/61; PULSE 78; RESP 18; TEMP 36.9; O2SAT 96; BMI 25.1
[2020-12-01 18:23] VITALS: BP 109/74; PULSE 78; RESP 18; O2SAT 94
--- NOTE | 2020-12-01 18:25 | CTR_ITS ---
PROCEDURE INFORMATION: Exam: CT Head Without Contrast Exam date and time: 12/01/2020 6:25 PM Age: 65 years old Clinical indication: Injury or trauma; Blunt trauma (contusions or hematomas); Without loss of consciousness; Patient HX: C/O multiple recent falls; Additional info: Rule out brain bleed TECHNIQUE: Imaging protocol: Computed tomography of the head without contrast. Radiation optimization: All CT scans at this facility use at least one of these dose optimization techniques: automated exposure control; mA and/or kV adjustment per patient size (includes targeted exams where dose is matched to clinical indication); or iterative reconstruction. COMPARISON: CT head wo con* [id number] 10/26/2020 4:55 AM RADIATION DOSE METRICS: Total DLP (mGy-cm): 969.13 FINDINGS: Brain: Mild parenchymal volume loss noted. There is decreased attenuation of the periventricular white matter, consistent with mild chronic microangiopathic white matter disease. No parenchymal edema identified. No intracranial hemorrhage noted. Cerebral ventricles: No ventriculomegaly. Paranasal sinuses: Visualized sinuses are unremarkable. No fluid levels. Mastoid air cells: Unremarkable as visualized. No mastoid effusion. Bones/joints: Unremarkable. No acute fracture. Soft tissues: Unremarkable. CT/CT head wo con* [id number] IMPRESSION: 1. No acute intracranial abnormality demonstrated. 2. There is no interval change from the prior examination. Radiation Dose CTDIVOL = (mGy): DLP = 969.13 (mGy-cm)
--- NOTE | 2020-12-01 18:25 | CTR_ITS ---
PROCEDURE INFORMATION: Exam: CT Cervical Spine Without Contrast Exam date and time: 12/01/2020 6:25 PM Age: 65 years old Clinical indication: Injury or trauma; Blunt trauma; Patient HX: HX of cervical FX C/O multiple recent falls - wears mahogany c-collar all the time; Additional info: Rule out new fractures TECHNIQUE: Imaging protocol: Computed tomography images of the cervical spine without contrast. Radiation optimization: All CT scans at this facility use at least one of these dose optimization techniques: automated exposure control; mA and/or kV adjustment per patient size (includes targeted exams where dose is matched to clinical indication); or iterative reconstruction. COMPARISON: CT cervical spin wo con* [id number] 10/26/2020 4:58 AM RADIATION DOSE METRICS: Total DLP (mGy-cm): 558.59 FINDINGS: Bones/joints: Again noted is a fracture at the base of the dens, unchanged from 10/26/2020. There is 5 mm of posterior displacement of the dens relative to the body of C2. There are degenerative facet joint changes throughout the cervical spine. Discs/Spinal canal/Neural foramina: Degenerative disc changes are noted at each cervical level. The degenerative changes are most severe at C5-C6 and C6-C7. Lungs: Lung apices are unremarkable for age. Pleural spaces: No apical pneumothorax. Soft tissues: The soft tissues are unremarkable. CT/CT cervical spin wo con* [id number] IMPRESSION: 1. No change in mildly displaced dens fracture, when compared to 10/26/2020. 2. No additional/new fractures noted , when compared to 10/26/2020. 3. No new abnormality demonstrated, when compared to the prior study. Radiation Dose CTDIVOL = (mGy): DLP = 558.59 (mGy-cm)
--- NOTE | 2020-12-01 18:32 | ED_ITS ---
HPI - General Adult General: Chief complaint: Fall Stated complaint: FELL TODAY: 3RD FALL W/IN 1 MONTH Time Seen by Provider: 12/01/20 18:01 History of Present Illness: HPI narrative: Patient is a 65-year-old female with history of TIA, CHF, diabetes type 1, CKD, hypertension, hyperlipidemia, prior neck fracture from 10/2020 who presents the emergency room after an episode of fall which occurred earlier this morning. Patient tells me that she was walking with a walker when she felt her legs gave way and fell onto her side. Since then, patient has complained of anterior neck pain. Patient is in a c-collar from prior neck fractures. Patient denies any associated chest pain shortness with palpitation or lightheadedness prior to the episode of fall. Patient has no focal neurological deficits prior are as a result of the fall. Because of persistent pain that has not improved with Percocet, patient decided come to the emergency room for evaluation. No other focal complaints at this time. Onset: early Duration: once Location:home Severity:moderate Review of Systems Narrative: Constitutional: No fever, no chills. HEENT: No vision changes CV: No chest pain, no palpitations PULM: no cough, no dyspnea. GI: No abdominal pain, no N/V/D. : No dysuria MSKEL: No muscle pain SKIN: No new rashes, no lesions. NEURO: No headache, no focal weakness. HEME: No visible bruises PSYCH: Normal mood [facility] ED PFSH: Medical History Anemia C. 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, recurrent severe without psychotic features Morbid obesity Post-traumatic stress disorder, chronic Surgical History H/O esophagogastroduodenoscopy H/O: hysterectomy History of bunionectomy bilateral Hx of cholecystectomy Status post colonoscopy Family History Mother Hypertension Diabetes Father Hypertension Asthma Other CAD (coronary artery disease) Cancer Denies family history of Anesthesia complication Bleeding disorder Social History Smoking and tobacco status: current every day smoker cigars Cigars smoked per week: 35 Years smoked cigars: 53 Cigar details: 1 PPD Quit status (tobacco): has tried quititng Second hand smoke exposure: Yes Smoking risk assessment/counseling performed?: No Alcohol intake: former Former alcohol use details: Reportedly has not had any alcohol since June Household members: spouse Housing: Manufactured/Mobile home Marital status: Current occupational status: retired History of recent travel: No Female Reproductive History: Date of last menstrual period: 06/14/20 Physical Exam Narrative: EXAM NARRATIVE: Head: Atraumatic, no visible hematoma Eyes: PERRL, conjunctiva without injection ENT: Mucous membrane moist NECK: +Ccollar in place, unable to assess ROM of the neck LUNGS: LCTAB, no crackles/rhonchi CV: RRR ABDOMEN: Soft, nontender in all quadrants EXTREMITY: Normal ROM SKIN: No rash or erythema NEURO: Awake and alert, no focal motor deficits PSYCH: Normal mood and affect Course Vital Signs: Vital signs: Vital Signs Temperature 98.4 F 12/01/20 17:53 Pulse Rate 78 12/01/20 22:31 Respiratory Rate 18 12/01/20 22:31 Blood Pressure 137/77 12/01/20 22:31 Pulse Oximetry 97 12/01/20 22:31 MDM - General Adult MDM Narrative: Medical decision making narrative: 65-year-old female with history of previous dens fracture from 10/2020 presenting to the emergency room after repeated episode of fall. Patient complains of more neck pain. On exam, patient is hemodynamically stable, neuro exam is completely intact. CT head and CT neck did not show any signs of worsening fractures or acute injuries. Again on repeat assessment, patient continues to be neuro logically intact. I have discussed findings with patient who reassures me that she will follow-up with her neurosurgeon at [place] on Thursday in the next week for repeat evaluation and recent episode of fall in the ER. Given risk of fall, I have discussed extensively with the patient needs occupational therapy. Patient reassures me that she will no longer walk at home by herself without assistance. Her is aware the patient needs physical therapy or otherwise she will have repeated episodes of fall. Disposition: Discharge. Patient is given return precautions for any neurological issues, difficulty breathing or any other issues. Imaging Data^: Other Imaging: My impression: [facility] [place], [place] [address]TF Scan ReportSigned Patient: Ingris Mendosa #: [id number]: [id number]#:[id number]/Sex: 65 / FADM Date: 12/01/20Loc: ERRoom/Bed:Attending Dr: Ordering Provider/Ordering MD: Lewis Coe MD Date of Service: 12/01/20 Procedure(s): CT head wo con* [id number] Accession Number(s): [id number] Report Number: [id number] PROCEDURE INFORMATION: Exam: CT Head Without Contrast Exam date and time: 12/01/2020 6:25 PM Age: 65 years old Clinical indication: Injury or trauma; Blunt trauma (contusions or hematomas); Without loss of consciousness; Patient HX: C/O multiple recent falls; Additional info: Rule out brain bleed TECHNIQUE: Imaging protocol: Computed tomography of the head without contrast. Radiation optimization: All CT scans at this facility use at least one of these dose optimization techniques: automated exposure control; mA and/or kV adjustment per patient size (includes targeted exams where dose is matched to clinical indication); or iterative reconstruction. COMPARISON: CT head wo con* [id number] 10/26/2020 4:55 AM RADIATION DOSE METRICS: Total DLP (mGy-cm): 969.13 FINDINGS: Brain: Mild parenchymal volume loss noted. There is decreased attenuation of the periventricular white matter, consistent with mild chronic microangiopathic white matter disease. No parenchymal edema identified. No intracranial hemorrhage noted. Cerebral ventricles: No ventriculomegaly. Paranasal sinuses: Visualized sinuses are unremarkable. No fluid levels. Mastoid air cells: Unremarkable as visualized. No mastoid effusion. Bones/joints: Unremarkable. No acute fracture. Soft tissues: Unremarkable. CT/CT head wo con* [id number] IMPRESSION: 1. No acute intracranial abnormality demonstrated. 2. There is no interval change from the prior examination. Radiation Dose CTDIVOL = (mGy): DLP = 969.13 (mGy-cm) Dictated By:Sheldon Hickey MDSigned By:Sheldon Hickey MDSigned Date/Time:12/01/202039DD/ [address] [id number] Scan ReportSigned Patient: Ingris Mendosa #: [id number]: [id number]#:[id number]/Sex: 65 / FADM Date: 12/01/20Loc: ERRoom/Bed:Attending Dr: Ordering Provider/Ordering MD: Lewis Coe MD Date of Service: 12/01/20 Procedure(s): CT cervical spin wo con* [id number] Accession Number(s): [id number] Report Number: [id number] PROCEDURE INFORMATION: Exam: CT Cervical Spine Without Contrast Exam date and time: 12/01/2020 6:25 PM Age: 65 years old Clinical indication: Injury or trauma; Blunt trauma; Patient HX: HX of cervical FX C/O multiple recent falls - wears mahogany c-collar all the time; Additional info: Rule out new fractures TECHNIQUE: Imaging protocol: Computed tomography images of the cervical spine without contrast. Radiation optimization: All CT scans at this facility use at least one of these dose optimization techniques: automated exposure control; mA and/or kV adjustment per patient size (includes targeted exams where dose is matched to clinical indication); or iterative reconstruction. COMPARISON: CT cervical spin wo con* [id number] 10/26/2020 4:58 AM RADIATION DOSE METRICS: Total DLP (mGy-cm): 558.59 FINDINGS: Bones/joints: Again noted is a fracture at the base of the dens, unchanged from 10/26/2020. There is 5 mm of posterior displacement of the dens relative to the body of C2. There are degenerative facet joint changes throughout the cervical spine. Discs/Spinal canal/Neural foramina: Degenerative disc changes are noted at each cervical level. The degenerative changes are most severe at C5-C6 and C6-C7. Lungs: Lung apices are unremarkable for age. Pleural spaces: No apical pneumothorax. Soft tissues: The soft tissues are unremarkable. CT/CT cervical spin wo con* [id number] IMPRESSION: 1. No change in mildly displaced dens fracture, when compared to 10/26/2020. 2. No additional/new fractures noted , when compared to 10/26/2020. 3. No new abnormality demonstrated, when compared to the prior study. Radiation Dose CTDIVOL = (mGy): DLP = 558.59 (mGy-cm) Dictated By:Sheldon Hickey MDSigned By:Sheldon Hickeyigned Date/Time:12/01/202045DD/ 44 Discharge Plan Discharge Patient Disposition: Home Clinical Impression: Neck pain Condition: Stable Prescriptions: No Action gabapentin 100 mg capsule 200 mg PO TID@,, RF: 0 promethazine 25 mg tablet 25 mg PO TID PRN (Reason: Nausea) RF: 0 sucralfate 1 gram tablet 1 g PO BID RF: 0 pantoprazole 40 mg tablet,delayed release (DR/EC) 40 mg PO DAILY RF: 0 metoprolol tartrate 50 mg tablet 25 mg PO BID RF: 0 hydrocodone-acetaminophen 10-325 mg tablet 1 tab PO Q6H PRN (Reason: Pain) RF: 0 magnesium L-lactate [Magtab] 84 mg tablet extended release 84 mg PO BID Qty: 180 RF: 1 atorvastatin 80 mg Tablet 80 mg PO BEDTIME@20 RF: 0 spironolactone 25 mg Tablet 25 mg PO DAILY@0900 RF: 0 Glucerna 1.5 Warner 0.08-1.5 gram-kcal/mL Liquid 5 ea feeding tube DAILY PRN (Reason: malnutrition) RF: 0 buspirone 15 mg tablet 15 mg PO BID Qty: 60 RF: 0 metformin 1,000 mg Tablet 1,000 mg PO BID@, RF: 0 aspirin 81 mg Tablet,Delayed Release (Dr/Ec) 81 mg PO DAILY@09 RF: 0 sodium chloride 1 gram tablet 1 g PO BID@ RF: 0 fludrocortisone 0.1 mg tablet 0.1 mg PO DAILY@09 RF: 0 loperamide 2 mg Tablet 2 - 4 mg PO PRN RF: 0 acetaminophen 325 mg Tablet 650 mg PO Q8H PRN (Reason: Pain) Qty: 60 RF: 0 levothyroxine 50 mcg Tablet 50 mcg PO DAILY@0800 Qty: 30 RF: 0 methocarbamol 750 mg tablet 1,500 mg PO TID PRN (Reason: MUSCLE SPASMS) RF: 0 insulin aspart U-100 [Novolog Flexpen U-100 Insulin] 100 unit/mL (3 mL) Insulin Pen See Rx Instructions .ROUTE .COMPLEX Qty: 0 RF: 0 trazodone 100 mg tablet 100 mg PO BEDTIME PRN (Reason: insomnia) RF: 0 prednisone 1 mg tablet 4 mg PO DAILY@09 RF: 0 lorazepam [Ativan] 1 mg tablet 1 mg PO Q8H PRN (Reason: anxiety) Qty: 3 RF: 0 Percocet 5-325 mg tablet 1 tab PO Q4H PRN (Reason: pain) Qty: 14 RF: 0 Discharge Orders: Discharge ED (Routine); Ordered 12/01/20 Ordered By: Lewis Coe Referrals: Thu Flores FNP [Primary Care Provider] - Discharge Diet: Advance as tolerated Discharge Activity: Resume usual activity Patient Instructions: Fractures, Opioid Safety Activity Restrictions/Additional Instructions: Please follow-up with your orthopedic provider for evaluation of your neck pain. Come back to the emergency room if you have any signs of neurological injuries, including paralysis, sensory changes, or any new or concerning issues. Please continue to wear your c-collar. Coding Level of Care Code ED Wrap Turner for Navid Simons
[2020-12-01 18:43] VITALS: RESP 16
[2020-12-01] MEDS: morphine 4 mg/mL SDV 1 mL IM ×2 (18:43→22:32)
[2020-12-01 20:00] VITALS: BP 131/58; PULSE 75; RESP 18; O2SAT 95
[2020-12-01 22:31] VITALS: BP 137/77; PULSE 78; RESP 18; O2SAT 97
== END 2020-12-01 22:36 | disposition home or self-care (01) ==
PROVIDERS: Emergency Provider Emergency Medicine; PCP Nurse Practitioner
DX: M54.2 Cervicalgia (principal); Z79.82 Long term (current) use of aspirin; Z79.4 Long term (current) use of insulin; I13.0 Hypertensive heart and chronic kidney disease with heart failure and stage 1 through stage 4 chronic kidney disease, or unspecified chronic kidney disease; E11.22 Type 2 diabetes mellitus with diabetic chronic kidney disease; N18.2 Chronic kidney disease, stage 2 (mild); I50.32 Chronic diastolic (congestive) heart failure; E78.5 Hyperlipidemia, unspecified; F17.210 Nicotine dependence, cigarettes, uncomplicated
CPT/HCPCS: 70450; 72125; 96372; 99283; J2270

== ENCOUNTER 2021-01-28 13:05 | Emergency (ER) | payer OTHER, MEDICARE, SELFPAY ==
[2021-01-28 13:27] VITALS: BP 96/68; PULSE 93; RESP 18; TEMP 36.4; O2SAT 95; BMI 24.6
--- NOTE | 2021-01-28 14:00 | XRR_ITS ---
PROCEDURE INFORMATION: Exam: XR Chest Exam date and time: 01/28/2021 2:00 PM Age: 65 years old Clinical indication: Other: Pain, no specific info; Prior surgery; Surgery type: Stimulator back; Additional info: Chest pain, pain level 5 TECHNIQUE: Imaging protocol: XR of the chest. Views: 1 view. COMPARISON: CR XR chest 1V portable [id number] 07/25/2020 1:52 AM FINDINGS: Tubes, catheters and devices: Spinal stimulator wire extends to the mid dorsal spine Lungs: Low lung volumes seen. No consolidation. Pleural spaces: Unremarkable. No pleural effusion. No pneumothorax. Heart/Mediastinum: Unremarkable. No cardiomegaly. Bones/joints: Unremarkable. XR/XR chest 1V portable [id number] IMPRESSION: 1. Low lung volumes are seen. 2. No acute findings. 3. Spinal stimulator wire mid dorsal spine Radiation Dose CTDIVOL = (mGy): DLP = (mGy-cm)
[2021-01-28 14:32] LABS: Basophils # 0.1 10^3/uL (0.0-0.1); Basophils % 0.7 %; Eosinophils # 0.1 10^3/uL (0.0-0.8); Eosinophils % 1.3 %; Hematocrit 41.7 % (37.0-47.0); Hemoglobin 13.9 g/dL (11.5-15.3); Lymphocytes % 26.2 %; Mean Corpuscular HGB Conc 33.3 g/dL (30.0-36.0); Mean Corpuscular Hemoglobin 31.8 pg (28.0-34.0); Mean Corpuscular Volume 95.4 fl (81-99); Monocytes # 0.6 10^3/uL (0.2-0.9); Monocytes % 7.6 %; Neutrophils # 4.79 10^3/uL (1.8-7.7); Neutrophils % 63.9 %; Nucleated Red Blood Cells % 0 %; Platelet Count 289 10^3/cmm (130-400); Red Blood Count 4.37 10^6/uL (4.1-5.3); Red Cell Distribution Width 14.7 % (12.1-15.1); White Blood Count 7.5 10^3/uL (4.0-10.0)
[2021-01-28 14:49] LABS: Alanine Aminotransferase 13 U/L (0-33); Albumin Level 2.9 g/dL (3.5-5.2); Alkaline Phosphatase 134 IU/L (35-105); Anion Gap 14.6 (5-19); Aspartate Amino Transferase 24 U/L (0-32); Blood Urea Nitrogen 6 mg/dL (8-23); Calcium 8.7 mg/dL (8.5-10.5); Carbon Dioxide 29 mmol/L (22-29); Chloride 95 mmol/L (98-107); Creatine Phosphokinase 53 U/L (26-192); Globulin 3.2 g/dL (1.3-4.6); Glucose 150 mg/dL (65-115); Osmolality Calculated 278 mOsm/kg (285-295); Potassium 4.6 mmol/L (3.5-5.1); Sodium 134 mmol/L (136-145); Total Bilirubin 0.4 mg/dL (0.15-1.2); Total Protein 6.1 g/dL (6.6-8.7)
[2021-01-28 15:20] LABS: Troponin(5th) Baseline 17 ng/L (0-10)
--- NOTE | 2021-01-28 16:17 | W.ED.CHESTPA ---
HPI - Chest Pain General: Chief Complaint: Chest Pain Stated Complaint: Chest Pain Time Seen by Provider: 01/28/21 14:00 History of Present Illness: HPI narrative: 65-year-old female presents emergency room complaining of severe chest pain last for 30 minutes today while at rest she will be getting a chest pain she denies any radiation of the pain no shortness of breath no diaphoresis. She has no known history of coronary disease she did have an angiogram about 2 to 3 years ago which was normal she was having chest pain at that time as well. MD complaint: chest pain Onset (ago): hour(s) Timing of current episode: episodic Onset: during rest Pain location: left chest Pain radiation: none Severity: mild Quality: tightness Relieving factors: nothing Exacerbating factors: nothing Associated symptoms: Deny abdominal pain, diaphoresis, dyspnea, fever(s), leg edema, nausea, palpitations, sense of impending doom, syncope or vomiting Treatment prior to arrival: none Review of Systems Const: Denies: fever(s) or diaphoresis ENMT: Denies: throat pain, ear or mastoid pain, nasal discharge or nasal congestion Card: Denies: palpitations or syncope Resp: Denies: dyspnea GI: Denies: abdominal pain, nausea or vomiting : Denies: flank pain, difficulty voiding, dysuria, urinary frequency or urinary urgency Skin/Breast: Denies: rash or pruritus PFSH ED PFSH: Medical History Anemia C. 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, recurrent severe without psychotic features Morbid obesity Post-traumatic stress disorder, chronic Surgical History H/O esophagogastroduodenoscopy H/O: hysterectomy History of bunionectomy bilateral Hx of cholecystectomy Status post colonoscopy Family History Mother Hypertension Diabetes Father Hypertension Asthma Other CAD (coronary artery disease) Cancer Denies family history of Anesthesia complication Bleeding disorder Social History Smoking and tobacco status: current every day smoker cigars Cigars smoked per week: 35 Years smoked cigars: 53 Cigar details: 1 PPD Quit status (tobacco): has tried quititng Second hand smoke exposure: Yes Smoking risk assessment/counseling performed?: No Alcohol intake: former Former alcohol use details: Reportedly has not had any alcohol since June Household members: spouse Housing: Manufactured/Mobile home Marital status: Current occupational status: retired History of recent travel: No Female Reproductive History: Date of last menstrual period: 06/14/20 Physical Exam Const: COMMON NORMALS: no acute distress GENERAL APPEARANCE: comfortable ORIENTATION/CONSCIOUSNESS: Yes awake, Yes oriented to person, Yes oriented to place and Yes oriented to time HENMT: COMMON NORMALS: normocephalic, atraumatic and hearing grossly normal bilaterally HEAD & SCALP: normocephalic and atraumatic Neck/C-Spine: COMMON NORMALS: no JVD Resp: COMMON NORMALS: normal respiratory effort, No retractions, No use of accessory muscles and clear to auscultation bilaterally AUSCULTATION: clear to auscultation bilaterally Cardio: COMMON NORMALS: no JVD, regular rate, regular rhythm and No murmurs present (Cardio) RATE: regular rate RHYTHM: regular rhythm GI: COMMON NORMALS: Soft to palpation and No hepatosplenomegaly present AUSCULTATION: Yes normoactive bowel sounds PALPATION: Yes Soft to palpation, No Tenderness to palpation present (GI), No Guarding due to palpation present (GI) and Yes No hepatosplenomegaly present Extremity: COMMON NORMALS: normal to inspection, capillary refill normal, no clubbing, cyanosis or edema, no calf tenderness and no pedal edema Neuro: SENSORIUM/ORIENTATION: Yes oriented to person, Yes oriented to place and Yes oriented to time Skin: COMMON NORMALS: no rashes or lesions noted GENERAL SKIN EXAM: no rashes or lesions noted Course Vital Signs: Vital signs: Vital Signs Temperature 97.6 F 01/28/21 13:27 Pulse Rate 93 01/28/21 13:27 Respiratory Rate 18 01/28/21 13:27 Blood Pressure 96/68 01/28/21 13:27 Pulse Oximetry 95 01/28/21 13:27 MDM - Chest Pain MDM Narrative: Medical decision making narrative: Away on second troponin patient became quite aggravated and insisted on leaving. Tried to convince her to stay for the second troponin she continues to refuse she understands were not able to rule out I recommend that she follow-up with primary care doctor and get a stress test done continue to take her aspirin she is welcome to return at any point if she has any change of symptoms or just wishes to complete the evaluation. Lab Data: Labs: Lab Results 01/28/21 01/28/21 01/28/21 14:25 14:25 14:25 WBC 7.5 10^3/uL 10^3/ uL (4.0-10.0) RBC 4.37 10^6/uL 10^6 /uL (4.1-5.3) Hgb 13.9 g/dL g/dL (11.5-15.3) Hct 41.7 % % (37.0-47.0) MCV 95.4 fl fl (81-99) MCH 31.8 pg pg (28.0-34.0) MCHC 33.3 g/dL g/dL (30.0-36.0) RDW 14.7 % % (12.1-15.1) Plt Count 289 10^3/cmm 10^3 /cmm (130-400) MPV 10.0 fL fL (7.4-10.4) Neut % (Auto) 63.9 % % Lymph % (Auto) 26.2 % % [place] % (Auto) 7.6 % % Eos % (Auto) 1.3 % % Baso % (Auto) 0.7 % % Neut # (Auto) 4.79 10^3/uL 10^3 /uL (1.8-7.7) Lymph # (Auto) 2.0 10^3/uL 10^3/ uL (0.8-4.8) [place] # (Auto) 0.6 10^3/uL 10^3/ uL (0.2-0.9) Eos # (Auto) 0.1 10^3/uL 10^3/ uL (0.0-0.8) Baso # (Auto) 0.1 10^3/uL 10^3/ uL (0.0-0.1) Nucleated RBC % (a uto) 0 % % Nucleated RBCs # 0.0 /100WBC /100W BC Sodium 134 mmol/L L mmol /L (136-145) Potassium 4.6 mmol/L mmol/L (3.5-5.1) Chloride 95 mmol/L L mmol/ L (98-107) Carbon Dioxide 29 mmol/L mmol/L (22-29) Anion Gap 14.6 (5-19) BUN 6 mg/dL L mg/dL (8-23) Creatinine 0.6 mg/dL mg/dL (0.5-0.9) GFR Calculation 100.0 mL/min mL/m in (90-130) Glucose 150 mg/dL H mg/dL (65-115) Calculated Osmolal ity 278 mOsm/kg L mOs m/kg (285-295) Calcium 8.7 mg/dL mg/dL (8.5-10.5) Total Bilirubin 0.4 mg/dL mg/dL (0.15-1.2) AST 24 U/L U/L (0-32) ALT 13 U/L U/L (0-33) Alkaline Phosphata se 134 IU/L H IU/L (35-105) Creatine Kinase 53 U/L U/L (26-192) Troponin T Baselin e 17 ng/L H ng/L (0-10) Total Protein 6.1 g/dL L g/dL (6.6-8.7) Albumin 2.9 g/dL L g/dL (3.5-5.2) Globulin 3.2 g/dL g/dL (1.3-4.6) Discharge Plan Discharge Patient Disposition: Left Against Medical Advice Clinical Impression: Atypical chest pain Condition: Stable Prescriptions: No Action gabapentin 100 mg capsule 200 mg PO TID@,,23 RF: 0 promethazine 25 mg tablet 25 mg PO TID PRN (Reason: Nausea) RF: 0 sucralfate 1 gram tablet 1 g PO BID RF: 0 pantoprazole 40 mg tablet,delayed release (DR/EC) 40 mg PO DAILY RF: 0 metoprolol tartrate 50 mg tablet 25 mg PO BID RF: 0 hydrocodone-acetaminophen 10-325 mg tablet 1 tab PO Q6H PRN (Reason: Pain) RF: 0 magnesium L-lactate [Magtab] 84 mg tablet extended release 84 mg PO BID Qty: 180 RF: 1 atorvastatin 80 mg Tablet 80 mg PO BEDTIME@20 RF: 0 spironolactone 25 mg Tablet 25 mg PO DAILY@0900 RF: 0 Glucerna 1.5 Warner 0.08-1.5 gram-kcal/mL Liquid 5 ea feeding tube DAILY PRN (Reason: malnutrition) RF: 0 buspirone 15 mg tablet 15 mg PO BID Qty: 60 RF: 0 metformin 1,000 mg Tablet 1,000 mg PO BID@,20 RF: 0 aspirin 81 mg Tablet,Delayed Release (Dr/Ec) 81 mg PO DAILY@09 RF: 0 sodium chloride 1 gram tablet 1 g PO BID@,20 RF: 0 fludrocortisone 0.1 mg tablet 0.1 mg PO DAILY@09 RF: 0 loperamide 2 mg Tablet 2 - 4 mg PO PRN RF: 0 acetaminophen 325 mg Tablet 650 mg PO Q8H PRN (Reason: Pain) Qty: 60 RF: 0 levothyroxine 50 mcg Tablet 50 mcg PO DAILY@0800 Qty: 30 RF: 0 methocarbamol 750 mg tablet 1,500 mg PO TID PRN (Reason: MUSCLE SPASMS) RF: 0 insulin aspart U-100 [Novolog Flexpen U-100 Insulin] 100 unit/mL (3 mL) Insulin Pen See Rx Instructions .ROUTE .COMPLEX Qty: 0 RF: 0 trazodone 100 mg tablet 100 mg PO BEDTIME PRN (Reason: insomnia) RF: 0 lorazepam [Ativan] 1 mg tablet 1 mg PO Q8H PRN (Reason: anxiety) Qty: 3 RF: 0 prednisone 1 mg tablet 3 mg PO DAILY@09 RF: 0 Percocet 5-325 mg tablet 1 tab PO Q4H PRN (Reason: pain) Qty: 14 RF: 0 Referrals: Thu Flores FNP [Primary Care Provider] - Coding Level of Care Code ED Checkering Machine Operator for Navid Simons
== END 2021-01-28 16:30 | disposition left against medical advice (07) ==
PROVIDERS: Emergency Provider Family Medicine; PCP Nurse Practitioner
DX: R07.89 Other chest pain (principal); F17.210 Nicotine dependence, cigarettes, uncomplicated; Z53.29 Procedure and treatment not carried out because of patient's decision for other reasons; Z79.82 Long term (current) use of aspirin; Z79.899 Other long term (current) drug therapy; Z79.84 Long term (current) use of oral hypoglycemic drugs; I13.0 Hypertensive heart and chronic kidney disease with heart failure and stage 1 through stage 4 chronic kidney disease, or unspecified chronic kidney disease; I50.9 Heart failure, unspecified; N18.2 Chronic kidney disease, stage 2 (mild); E11.22 Type 2 diabetes mellitus with diabetic chronic kidney disease
CPT/HCPCS: 71045; 80053; 82550; 84484; 85025; 99282

== ENCOUNTER → 2021-02-11 15:17 | Outpatient (BNVA) | payer OTHER, MEDICARE, SELFPAY | PROVIDERS: PCP Nurse Practitioner; Visit Provider Specialist | DX: G31.83 Neurocognitive disorder with Lewy bodies (principal); G30.9 Alzheimer's disease, unspecified; F02.80 Dementia in other diseases classified elsewhere, unspecified severity, without behavioral disturbance, psychotic disturbance, mood disturbance, and anxiety; E10.8 Type 1 diabetes mellitus with unspecified complications; Z79.4 Long term (current) use of insulin; I50.9 Heart failure, unspecified; F17.290 Nicotine dependence, other tobacco product, uncomplicated | CPT/HCPCS: 96116; 99204; 99205 ==

== ENCOUNTER → 2021-02-28 15:15 | Outpatient (BNVA) | payer OTHER, MEDICARE, SELFPAY | PROVIDERS: PCP Nurse Practitioner; Visit Provider Internal Medicine | DX: E87.1 Hypo-osmolality and hyponatremia (principal); E27.40 Unspecified adrenocortical insufficiency; T14.8XXA Other injury of unspecified body region, initial encounter; X58.XXXA Exposure to other specified factors, initial encounter; F17.290 Nicotine dependence, other tobacco product, uncomplicated | CPT/HCPCS: 99213; 99214 ==

== ENCOUNTER 2021-02-28 16:02 | Outpatient (CLI) | payer OTHER, MEDICARE, SELFPAY ==
[2021-02-28 16:43] LABS: Anion Gap 14.2 (5-19); Blood Urea Nitrogen 4 mg/dL (8-23); Calcium 7.7 mg/dL (8.5-10.5); Carbon Dioxide 28 mmol/L (22-29); Chloride 93 mmol/L (98-107); Glomerular Filtration Rate 123.1 mL/min (90-130); Glucose 190 mg/dL (65-115); Osmolality Calculated 276 mOsm/kg (285-295); Potassium 3.2 mmol/L (3.5-5.1); Sodium 132 mmol/L (136-145)
== END 2021-02-28 16:03 | disposition home or self-care (01) ==
LOC: LAB 16:06
PROVIDERS: PCP Nurse Practitioner; Visit Provider Internal Medicine
DX: E87.1 Hypo-osmolality and hyponatremia (principal)
CPT/HCPCS: 80048

== ENCOUNTER 2021-03-19 09:45 | Outpatient (CLI) | payer OTHER, SELFPAY ==
--- NOTE | 2021-03-19 09:59 | MM_ITS ---
WS: [id number] Bilateral screening digital mammogram, 03/19/2021 Clinical Data: SCREENING Comparison: 01/02/2020, 08/03/2017, 07/17/2016. Findings: The breast parenchymal pattern shows fat replacement. No spiculated masses or clustered calcification s are seen. There are no secondary signs of carcinoma. There are scattered benign calcifications thro ughout both breasts. MM/[place] [id number] Impression: 1. Negative bilateral mammogram unchanged. 2. Recommend annual screening mammograms. BIRADS: 1-Negative FOLLOW UP: 1 Year Follow-up The CAD unloading checker was used.
== END 2021-03-19 09:46 | disposition home or self-care (01) ==
LOC: RADSHAW 09:47
PROVIDERS: PCP Nurse Practitioner; Visit Provider Nurse Practitioner
DX: Z12.31 Encounter for screening mammogram for malignant neoplasm of breast (principal)
CPT/HCPCS: 77067

== ENCOUNTER 2021-03-27 04:14 | Emergency (ER) | payer OTHER, MEDICARE, BC, SELFPAY ==
--- NOTE | 2021-03-27 04:17 | W.ED.FALL ---
Documented by User: Brennan Blanchard MD 03/31/21 20:06 HPI - Fall General: Chief Complaint: Extremity Injury, Upper Stated Complaint: fall, rt arm pain Time Seen by Provider: 03/27/21 04:17 History of Present Illness: HPI Narrative: Ms Mendosa is a 66-year-old lady with complex past medical history including hypertension, hyperlipidemia, history of stroke, CHF, diabetes, CKD who presents to the emergency department due to fall. She has been at her baseline health and has frequent falls. She denies that this is significantly different. Last night she fell after feeling weak or off balance though this is very similar to prior. She landed primarily on her right side and hit her head. No loss of consciousness. She was able to ambulate afterwards. Of note the patient has had history of neck fracture including surgery with delayed healing in December. She currently has an [place] collar on however was not wearing it this at time of fall. Denies new neurologic changes. Intensity of aching discomfort is moderate. No other specific changes in health, exacerbating, relieving factors identified. Review of Systems General: Reports: 10 or more systems reviewed and unremarkable except in HPI and below PFSH ED PFSH: Medical History Anemia C. 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, recurrent severe without psychotic features Morbid obesity Post-traumatic stress disorder, chronic Surgical History H/O esophagogastroduodenoscopy H/O: hysterectomy History of bunionectomy bilateral Hx of cholecystectomy Status post colonoscopy Family History Mother Hypertension Diabetes Father Hypertension Asthma Other CAD (coronary artery disease) Cancer Denies family history of Anesthesia complication Bleeding disorder Social History Smoking and tobacco status: current every day smoker cigars Cigars smoked per week: 35 Years smoked cigars: 53 Cigar details: 1 PPD Quit status (tobacco): has tried quititng Second hand smoke exposure: Yes Smoking risk assessment/counseling performed?: No Alcohol intake: former Former alcohol use details: Reportedly has not had any alcohol since June Household members: spouse Housing: Manufactured/Mobile home Marital status: Current occupational status: retired History of recent travel: No Female Reproductive History: Date of last menstrual period: 06/14/20 Physical Exam Narrative: EXAM NARRATIVE: GENERAL/CONSTITUTIONAL - chronically ill appearance. Eyes - PERRL, no conjunctival injection ENMT - Atraumatic external nose and ears. Moist mucous membranes NECK - supple. trachea midline CARDIOVASCULAR -tachycardic rate and regular rhythm. No evidence of gross volume overload on peripheral exam RESPIRATORY -clear to auscultation bilaterally. No retractions or accessory muscle use. ABDOMEN/GI - Nontender/Nondistended. No tenderness to percussion or evidence of peritonitis MSK - tenderness palpation of right side/shoulder/neck. Extremities without obvious deformity or tenderness to palpation SKIN - Warm, Dry NEURO - alert and appropriately oriented. No focal neurologic abnormality moves all extremities equally. Course ED course: - Patient was seen and evaluated by me at bedside -Vital signs obtained - Initial evaluation notable for exam as above - Labs and imaging obtained and reviewed - Offered labs which the patient declined given that she feels that her dizziness is baseline. I feel that this is reasonable given clinical history. - Imaging ordered however some of the reads were pending at time of patient care handoff to morning ED physician Dr Sharma. Plan to discharge the patient if imaging negative. Vital Signs: Vital signs: Vital Signs Temperature 98.4 F 03/27/21 04:29 Pulse Rate 106 H 03/27/21 04:42 Respiratory Rate 18 03/27/21 04:42 Blood Pressure 99/75 03/27/21 04:42 Pulse Oximetry 96 03/27/21 04:42 MDM - Fall Medical Records: Attestation: I reviewed the patient's medical records. Lab Data: Attestation: I reviewed the patient's lab results. EKG Data^: EKG 1: Attestation: I personally reviewed and interpreted this EKG as follows: EKG interpretation date: 03/27/21 EKG interpretation time: 05:47 Interpretation: Twelve-lead EKG shows a regular rhythm at a rate of 93. W[place] interval 130, QRS duration 84, QTc 451. Normal axis. Interpretation: Sinus rhythm. Discharge Plan Discharge Patient Disposition: Home Clinical Impression: Fall Condition: Stable Prescriptions: No Action gabapentin 100 mg capsule 200 mg PO TID@,, RF: 0 promethazine 25 mg tablet 25 mg PO TID PRN (Reason: Nausea) RF: 0 pantoprazole 40 mg tablet,delayed release (DR/EC) 40 mg PO DAILY RF: 0 metoprolol tartrate 50 mg tablet 25 mg PO BID RF: 0 duloxetine 20 mg capsule,delayed release(DR/EC) 20 mg PO BID RF: 0 hydrocodone-acetaminophen 10-325 mg tablet 1 tab PO Q6H PRN (Reason: Pain) RF: 0 glimepiride 4 mg tablet 4 mg PO DAILY RF: 0 sucralfate 1 gram tablet 1 g PO BID RF: 0 mirtazapine 45 mg tablet 45 mg PO DAILY RF: 0 clopidogrel 75 mg tablet 75 mg PO DAILY RF: 0 ferrous sulfate 325 mg (65 mg iron) tablet 325 mg PO DAILY RF: 0 galantamine 4 mg tablet 4 mg PO DAILY Qty: 90 RF: 1 magnesium L-lactate [Magtab] 84 mg tablet extended release 84 mg PO BID Qty: 180 RF: 1 atorvastatin 80 mg Tablet 80 mg PO BEDTIME@20 RF: 0 spironolactone 25 mg Tablet 25 mg PO DAILY@0900 RF: 0 Glucerna 1.5 Warner 0.08-1.5 gram-kcal/mL Liquid 5 ea feeding tube DAILY PRN (Reason: malnutrition) RF: 0 buspirone 15 mg tablet 15 mg PO BID Qty: 60 RF: 0 metformin 1,000 mg Tablet 1,000 mg PO BID@,20 RF: 0 sodium chloride 1 gram tablet 1 g PO BID@,20 RF: 0 fludrocortisone 0.1 mg tablet 0.1 mg PO DAILY@09 RF: 0 loperamide 2 mg Tablet 2 - 4 mg PO PRN RF: 0 acetaminophen 325 mg Tablet 650 mg PO Q8H PRN (Reason: Pain) Qty: 60 RF: 0 levothyroxine 50 mcg Tablet 50 mcg PO DAILY@0800 Qty: 30 RF: 0 methocarbamol 750 mg tablet 1,500 mg PO TID PRN (Reason: MUSCLE SPASMS) RF: 0 insulin aspart U-100 [Novolog Flexpen U-100 Insulin] 100 unit/mL (3 mL) Insulin Pen See Rx Instructions .ROUTE .COMPLEX Qty: 0 RF: 0 prednisone 1 mg tablet 3 mg PO DAILY@09 RF: 0 Discharge Orders: Discharge ED (Routine); Ordered 03/27/21 Ordered By: Benjamin Sharma Referrals: Thu Flores FNP [Primary Care Provider] - 1-3 days Patient Instructions: Fall Prevention (ED), Opioid Safety Sign Out Sign Out Data: Patient Sign Out occurred on 03/27/21 at 07:15. Patient's care was discussed, and care was transferred from to Benjamin Sharma MD. Coding Level of Care Code ED Pc Installation Engineer for Chg Fwd Documented by User: Benjamin Sharma MD 03/27/21 07:50 HPI - Fall General: Chief Complaint: Extremity Injury, Upper Stated Complaint: fall, rt arm pain Time Seen by Provider: 03/27/21 04:17 [facility] ED PFSH: Medical History Anemia C. 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, recurrent severe without psychotic features Morbid obesity Post-traumatic stress disorder, chronic Surgical History H/O esophagogastroduodenoscopy H/O: hysterectomy History of bunionectomy bilateral Hx of cholecystectomy Status post colonoscopy Family History Mother Hypertension Diabetes Father Hypertension Asthma Other CAD (coronary artery disease) Cancer Denies family history of Anesthesia complication Bleeding disorder Social History Smoking and tobacco status: current every day smoker cigars Cigars smoked per week: 35 Years smoked cigars: 53 Cigar details: 1 PPD Quit status (tobacco): has tried quititng Second hand smoke exposure: Yes Smoking risk assessment/counseling performed?: No Alcohol intake: former Former alcohol use details: Reportedly has not had any alcohol since June Household members: spouse Housing: Manufactured/Mobile home Marital status: Current occupational status: retired History of recent travel: No Course Vital Signs: Vital signs: Vital Signs Temperature 98.4 F 03/27/21 04:29 Pulse Rate 106 H 03/27/21 04:42 Respiratory Rate 18 03/27/21 04:42 Blood Pressure 99/75 03/27/21 04:42 Pulse Oximetry 96 03/27/21 04:42 MDM - Fall MDM Narrative: Medical decision making narrative: This patient was signed out to me by Dr. Blanchard: She presents due to right-sided body pain neck pain headache after mechanical fall. Does state that she had some weakness refused any further lab work and I believe she has capacity to make this decision. Nonfocal neurologic exam. Imaging did not reveal any sign of intracranial hemorrhage fracture dislocation or other acute abnormality. States she is able to ambulate at home. At this time I believe patient would be safe for discharge and outpatient follow-up. Return precautions provided. Plan was reviewed with the patient who expressed understanding. Questions answered. Patient will follow up with PCP. Patient discharged in stable condition. Discharge Plan Discharge Patient Disposition: Home Clinical Impression: Fall Condition: Stable Prescriptions: No Action gabapentin 100 mg capsule 200 mg PO TID@,, RF: 0 promethazine 25 mg tablet 25 mg PO TID PRN (Reason: Nausea) RF: 0 pantoprazole 40 mg tablet,delayed release (DR/EC) 40 mg PO DAILY RF: 0 metoprolol tartrate 50 mg tablet 25 mg PO BID RF: 0 duloxetine 20 mg capsule,delayed release(DR/EC) 20 mg PO BID RF: 0 hydrocodone-acetaminophen 10-325 mg tablet 1 tab PO Q6H PRN (Reason: Pain) RF: 0 glimepiride 4 mg tablet 4 mg PO DAILY RF: 0 sucralfate 1 gram tablet 1 g PO BID RF: 0 mirtazapine 45 mg tablet 45 mg PO DAILY RF: 0 clopidogrel 75 mg tablet 75 mg PO DAILY RF: 0 ferrous sulfate 325 mg (65 mg iron) tablet 325 mg PO DAILY RF: 0 galantamine 4 mg tablet 4 mg PO DAILY Qty: 90 RF: 1 magnesium L-lactate [Magtab] 84 mg tablet extended release 84 mg PO BID Qty: 180 RF: 1 atorvastatin 80 mg Tablet 80 mg PO BEDTIME@20 RF: 0 spironolactone 25 mg Tablet 25 mg PO DAILY@0900 RF: 0 Glucerna 1.5 Warner 0.08-1.5 gram-kcal/mL Liquid 5 ea feeding tube DAILY PRN (Reason: malnutrition) RF: 0 buspirone 15 mg tablet 15 mg PO BID Qty: 60 RF: 0 metformin 1,000 mg Tablet 1,000 mg PO BID@, RF: 0 sodium chloride 1 gram tablet 1 g PO BID@, RF: 0 fludrocortisone 0.1 mg tablet 0.1 mg PO DAILY@09 RF: 0 loperamide 2 mg Tablet 2 - 4 mg PO PRN RF: 0 acetaminophen 325 mg Tablet 650 mg PO Q8H PRN (Reason: Pain) Qty: 60 RF: 0 levothyroxine 50 mcg Tablet 50 mcg PO DAILY@0800 Qty: 30 RF: 0 methocarbamol 750 mg tablet 1,500 mg PO TID PRN (Reason: MUSCLE SPASMS) RF: 0 insulin aspart U-100 [Novolog Flexpen U-100 Insulin] 100 unit/mL (3 mL) Insulin Pen See Rx Instructions .ROUTE .COMPLEX Qty: 0 RF: 0 prednisone 1 mg tablet 3 mg PO DAILY@09 RF: 0 Discharge Orders: Discharge ED (Routine); Ordered 03/27/21 Ordered By: Benjamin Sharma Referrals: Thu Flores FNP [Primary Care Provider] - 1-3 days Patient Instructions: Fall Prevention (ED), Opioid Safety Sign Out Sign Out Data: Patient Sign Out occurred on 03/27/21 at 07:15. Patient's care was discussed, and care was transferred from to Benjamin Sharma MD. Coding Level of Care Code ED Pc Installation Engineer for Navid Simons
[2021-03-27 04:29] VITALS: BP 137/50; PULSE 117; RESP 18; TEMP 36.9; O2SAT 97; BMI 19.5
[2021-03-27 04:42] VITALS: BP 99/75; PULSE 106; RESP 18; O2SAT 96
--- NOTE | 2021-03-27 04:51 | ECG_ITS ---
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 Measurements Intervals [place] Rate: 93 P: 15 ID: 130 QRS: 32 QRSD: 84 T: 73 QT: 400 QTc: 498 Interpretive Statements SINUS RHYTHM MINIMAL ST DEPRESSION [0.025+ mV ST DEPRESSION] Compared to ECG 11/11/2020 07:27:09 ST (T wave) deviation now present Sinus tachycardia no longer present Electronically Signed On 03-28-2021 22:05:59 SOCIAL WORKER by Cindy Strong M.D. [id number]
--- NOTE | 2021-03-27 04:51 | CTR_ITS ---
PROCEDURE INFORMATION: Exam: CT Head Without Contrast Exam date and time: 03/27/2021 4:51 AM Age: 66 years old Clinical indication: Injury or trauma; Fall; Blunt trauma (contusions or hematomas); Patient HX: Patient tripped and fell at home striking head and RT arm. C/O head, neck, and rib pain. History of c2 fracture. History of lewy body dementia. C collar in place. ; Additional info: Fall, head strike TECHNIQUE: Imaging protocol: Computed tomography of the head without contrast. Total images: 200 Radiation optimization: All CT scans at this facility use at least one of these dose optimization techniques: automated exposure control; mA and/or kV adjustment per patient size (includes targeted exams where dose is matched to clinical indication); or iterative reconstruction. COMPARISON: CT head wo con* [id number] 12/01/2020 7:29 PM RADIATION DOSE METRICS: Total DLP (mGy-cm): 690.15 FINDINGS: Brain: Global brain atrophy and chronic white matter ischemic changes are present. Cerebral ventricles: Ventricles are appropriate in size for degree of atrophy. Paranasal sinuses: Visualized sinuses are unremarkable. No fluid levels. Mastoid air cells: Visualized mastoid air cells are well aerated. Bones/joints: Prominent atlantodental degenerative changes. Long-standing deviation of the nasal septum. Postsurgical changes noted in the visualized cervical spine. Soft tissues: Unremarkable. CT/CT head wo con* [id number] IMPRESSION: No acute intracranial abnormality.
--- NOTE | 2021-03-27 04:51 | CTR_ITS ---
PROCEDURE INFORMATION: Exam: CT Chest Without Contrast; Diagnostic Exam date and time: 03/27/2021 4:51 AM Age: 66 years old Clinical indication: Injury or trauma; Fall; Blunt trauma (contusions or hematomas); Prior surgery; Surgery type: Stimulator. ; Patient HX: Patient tripped and fell at home striking head and RT arm. C/O head, neck, and rib pain. History of c2 fracture. History of lewy body dementia. C collar in place. Unable to raise RT arm above head due to pain. ; Additional info: Fall, right shoulder/rib pain TECHNIQUE: Imaging protocol: Diagnostic computed tomography of the chest without contrast. Total images: 251 Radiation optimization: All CT scans at this facility use at least one of these dose optimization techniques: automated exposure control; mA and/or kV adjustment per patient size (includes targeted exams where dose is matched to clinical indication); or iterative reconstruction. COMPARISON: CT chest wo con [id number] 05/22/2020 2:31 PM RADIATION DOSE METRICS: Total DLP (mGy-cm): 862.65 FINDINGS: Tubes, catheters and devices: Intraspinal nerve stimulator electrodes noted. Lungs: 3 mm subpleural opacity posteriorly in the right lower lobe series 2, image 32 unchanged. Benign granulomatous disease of the lung is noted. 3 mm subpleural nodule laterally at the left lung base unchanged. Pleural spaces: Unremarkable. No pneumothorax. No pleural effusion. Heart: Unremarkable. No cardiomegaly. No pericardial effusion. Aorta: Unremarkable. No aortic aneurysm. Other arteries: Moderate atherosclerotic disease is evident. Lymph nodes: Unremarkable. No enlarged lymph nodes. Liver: Hepatic steatosis is evident with areas of focal fatty sparing. Bones/joints: Old right rib fractures are evident. Soft tissues: Unremarkable. Other findings: 6 mm irregular nodular opacity in the right apex unchanged. Fleischner follow up recommendations for incidental nodules are not indicated. Follow up per patient's medical condition. CT/CT chest wo con [id number] IMPRESSION: 1. Multiple small calcified and noncalcified pulmonary nodules bilaterally. The largest measures 6 mm in the right lung apex. All appear unchanged from the prior exam. No further follow-up needed. 2. No acute process identified.
--- NOTE | 2021-03-27 04:51 | CTR_ITS ---
PROCEDURE INFORMATION: Exam: CT Cervical Spine Without Contrast Exam date and time: 03/27/2021 4:51 AM Age: 66 years old Clinical indication: Injury or trauma; Fall; Blunt trauma; Prior surgery; Surgery type: C spine; Patient HX: Patient tripped and fell at home striking head and RT arm. C/O head, neck, and rib pain. History of c2 fracture. History of lewy body dementia. C collar in place. ; Additional info: Fall, HX neck injury/surgry TECHNIQUE: Imaging protocol: Computed tomography images of the cervical spine without contrast. Total images: 270 Radiation optimization: All CT scans at this facility use at least one of these dose optimization techniques: automated exposure control; mA and/or kV adjustment per patient size (includes targeted exams where dose is matched to clinical indication); or iterative reconstruction. COMPARISON: CT cervical spin wo con* [id number] 12/01/2020 7:32 PM RADIATION DOSE METRICS: Total DLP (mGy-cm): 388.62 FINDINGS: Tubes, catheters and devices: Postsurgical changes noted along the posterior arch of C1 and C2 with cerclage wire. Remote type 2 dens fracture with posterior subluxation of the dens in relation to the body of approximately 5 mm and posterior longitudinal ligament thickening. Combination causes narrowing of spinal canal but findings are unchanged from the prior exam. Bones/joints: See Tubes, catheters and devices finding. Discs/Spinal canal/Neural foramina: Multilevel degenerative disc disease with disc space narrowing and osteophyte formation. Uncovertebral joint degeneration is present. Lungs: Benign granulomatous disease of the lung is noted. Vasculature: Calcified atherosclerotic plaque is noted at the carotid bifurcations bilaterally. Soft tissues: Unremarkable. CT/CT cervical spin wo con* [id number] IMPRESSION: 1. Postsurgical changes noted along the posterior arch of C1 and C2 with cerclage wire. Remote type 2 dens fracture with posterior subluxation of the dens in relation to the body of approximately 5 mm and posterior longitudinal ligament thickening. Combination causes narrowing of spinal canal but findings are unchanged from the prior exam. 2. No acute process identified.
--- NOTE | 2021-03-27 05:04 | XRR_ITS ---
PROCEDURE INFORMATION: Exam: XR Right Humerus Exam date and time: 03/27/2021 5:04 AM Age: 66 years old Clinical indication: Injury or trauma; Fall; Blunt trauma (contusions or hematomas); Arm, upper; Right; Patient HX: Patient tripped and fell at home. C/O RT upper arm pain; Additional info: Fall, pain TECHNIQUE: Imaging protocol: XR Right humerus. Views: 2 or more views. Total images: 2 COMPARISON: CT chest wo con [id number] 03/27/2021 5:13 AM FINDINGS: Bones/joints: Diffuse osteopenia noted. No acute fracture nor subluxation. No osseous erosion nor periosteal reaction. Soft tissues: Normal. XR/[place] [id number] IMPRESSION: No acute osseous pathology.
== END 2021-03-27 07:30 | disposition home or self-care (01) ==
PROVIDERS: Emergency Provider Emergency Medicine; PCP Nurse Practitioner
DX: M54.2 Cervicalgia (principal); R51.9 Headache, unspecified; R29.6 Repeated falls; K21.9 Gastro-esophageal reflux disease without esophagitis; F17.200 Nicotine dependence, unspecified, uncomplicated; E78.5 Hyperlipidemia, unspecified; E03.9 Hypothyroidism, unspecified; Z79.4 Long term (current) use of insulin; I13.0 Hypertensive heart and chronic kidney disease with heart failure and stage 1 through stage 4 chronic kidney disease, or unspecified chronic kidney disease; I50.9 Heart failure, unspecified; N18.2 Chronic kidney disease, stage 2 (mild); E11.22 Type 2 diabetes mellitus with diabetic chronic kidney disease
CPT/HCPCS: 70450; 71250; 72125; 73060; 93005; 99283

== ENCOUNTER 2021-04-05 10:47 | Observation (INO) | payer OTHER, MEDICARE, SELFPAY ==
[2021-04-05] VITALS (7 sets, daily range): BP systolic 105–160; BP diastolic 52–92; PULSE 93–107; RESP 16–20; TEMP 36.5–36.7; O2SAT 95–97
--- NOTE | 2021-04-05 10:50 | XR_ITS ---
WS: [id number] XR shoulder LT min 2V* [id number] REASON FOR EXAM: fall with shoulder pain FINDINGS: Narrowing of the acromioclavicular joint. Left clavicle and acromial process intact. There is increased inferior laxity in the left glenohumeral alignment without jono dislocation. Narr owing of the glenohumeral joint with large inferior osteophyte of the glenoid. These findings were pr eviously demonstrated on a CT scan of the shoulder 10/12/2018. No fracture of the glenoid or proximal humerus. Scapula is intact. XR/XR shoulder LT min 2V* [id number] IMPRESSION: Laxity and osteoarthritis in the left glenohumeral joint. No definite acute fra cture or dislocation. Osteoarthritis in the acromioclavicular joint.
--- NOTE | 2021-04-05 11:55 | ED_ITS ---
HPI - Fall General: Chief Complaint: Fall Stated Complaint: L SHOULDER INJURY/FALL RELATED/DEHYDRATED Time Seen by Provider: 04/05/21 11:33 Source: patient Mode of arrival: wheelchair Limitations: no limitations History of Present Illness: HPI Narrative: 66-year-old female presents to the ER with family member for left shoulder pain after a fall yesterday. Patient has frequent falls from weakness and reports she tripped and fell, landing on the left side yesterday. Patient reports she has had continued pain since the fall and rates the pain a 9 out of 10. Patient takes hydrocodone at home and that is not touching her pain. Patient saw a [facility] doctor today who was concerned for dehydration given patient has been vomiting and had diarrhea for the last 1 week. Patient was diagnosed with gastroenteritis last week however it is not improving at this time. Patient reports a headache. Patient reports decreased appetite. Patient reports weakness. Denies sick contacts. MD complaint: fall Onset (ago): day(s) Fall from: standing Fall witnessed: yes, by family Place fall occurred: home Loss of consciousness: None Prolonged down time: no Context: tripped/slipped Location of injury - extremities: Left: shoulder Severity: severe Severity scale (1-10): 9 Quality: sharp and aching Associated symptoms-after fall: Reports weakness Review of Systems General: Reports: 10 or more systems reviewed and unremarkable except in HPI and below PFSH ED PFSH: Medical History Anemia C. 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, recurrent severe without psychotic features Morbid obesity Post-traumatic stress disorder, chronic Surgical History H/O esophagogastroduodenoscopy H/O: hysterectomy History of bunionectomy bilateral Hx of cholecystectomy Status post colonoscopy Family History Mother Hypertension Diabetes Father Hypertension Asthma Other CAD (coronary artery disease) Cancer Denies family history of Anesthesia complication Bleeding disorder Social History Quit status (tobacco): has tried quititng Second hand smoke exposure: Yes Smoking risk assessment/counseling performed?: No Alcohol intake: former Former alcohol use details: Reportedly has not had any alcohol since June Household members: spouse Housing: Manufactured/Mobile home Marital status: Current occupational status: retired History of recent travel: No Female Reproductive History: Date of last menstrual period: 06/14/20 Physical Exam Const: COMMON NORMALS: patient oriented x3 GENERAL APPEARANCE: ill appearing and frail appearing; not comfortable and not well kempt HENMT: COMMON NORMALS: normocephalic HEAD & SCALP: normocephalic MOUTH: moist mucous membranes abnormal Details: parched Eye: COMMON NORMALS: conjunctivae normal CONJUNCTIVA: Yes conjunctivae normal Neck/C-Spine: OTHER: Patient in c-collar from neck surgery in December Lymph: LYMPHATIC: no lymphadenopathy noted Resp: COMMON NORMALS: normal respiratory effort, No retractions and clear to auscultation bilaterally AUSCULTATION: clear to auscultation bilaterally, no rales, no rhonchi and no wheezes Cardio: COMMON NORMALS: regular rhythm RATE: tachycardic RHYTHM: regular rhythm GI: COMMON NORMALS: Soft to palpation and non-tender AUSCULTATION: Yes Hyperactive bowel sounds present PALPATION: Yes Soft to palpation Extremity: RIGHT UPPER EXTREMITY: Yes shoulder joint (TTP over lateral clavicle) Right shoulder: Yes Right shoulder joint inspection exam (no deformity or swelling noted, no skin changes noted), Yes palpation, Yes Right shoulder joint ROM exam (decreased secondary to pain) and Yes Right shoulder joint neurovascular exam (intact) Neuro: COMMON NORMALS: patient oriented x3 and moves all extremities Psych: COMMON NORMALS: mental status grossly normal, cooperative and normal affect APPEARANCE: No well kempt Skin: COMMON NORMALS: no rashes or lesions noted and no wounds GENERAL SKIN EXAM: no rashes or lesions noted Course ED course: Patient presents to the ER today for left shoulder pain and weakness/dehydration from nausea and vomiting x1 week. Patient took a fall yesterday because of weakness and a history of frequent falls. Patient reports left shoulder pain is significantly worse and not improving with home medications. We will get x-ray of the shoulder. We will also do labs to check patient's electrolytes given 1 week of vomiting and diarrhea. Consultations: Consultation #1: Given hyponatremia and inability to hold down solids or liquids for the last 1 week, discussed patient with Dr. Coe who agrees to admission. Care transferred to Dr. Coe. Time: 14:34 Vital Signs: Vital signs: Vital Signs Temperature 98.1 F 04/05/21 11:08 Pulse Rate 103 H 04/05/21 11:16 Respiratory Rate 18 04/05/21 11:16 Blood Pressure 105/52 04/05/21 11:16 Pulse Oximetry 97 04/05/21 11:16 MDM - Fall MDM Narrative: Medical decision making narrative: 66-year-old female presents to the ER today for nausea and vomiting x1 week also diarrhea. Patient reports a fall yesterday with left shoulder pain. [facility] who was concerned for dehydration and low sodium. X-ray in the ER does not indicate acute injury to the left shoulder. Patient's lab work however is concerning for hyponatremia. Discussed patient with Dr. Coe who agrees for admission. Care transferred to Dr. Coe for admission. Lab Data: Attestation: I reviewed the patient's lab results. Labs: Lab Results 04/05/21 04/05/21 13:15 13:15 WBC 12.0 10^3/uL H 10 ^3/uL (4.0-10.0) RBC 3.73 10^6/uL L 10 ^6/uL (4.1-5.3) Hgb 12.3 g/dL g/dL (11.5-15.3) Hct 34.9 % L % (37.0-47.0) MCV 93.6 fl fl (81-99) MCH 33.0 pg pg (28.0-34.0) MCHC 35.2 g/dL g/dL (30.0-36.0) RDW 12.8 % % (12.1-15.1) Plt Count 265 10^3/cmm 10^3 /cmm (130-400) MPV 10.1 fL fL (7.4-10.4) Neut % (Auto) 73.7 % % Lymph % (Auto) 17.5 % % [place] % (Auto) 7.9 % % Eos % (Auto) 0.3 % % Baso % (Auto) 0.3 % % Neut # (Auto) 8.81 10^3/uL H 10 ^3/uL (1.8-7.7) Lymph # (Auto) 2.1 10^3/uL 10^3/ uL (0.8-4.8) [place] # (Auto) 1.0 10^3/uL H 10^ 3/uL (0.2-0.9) Eos # (Auto) 0.0 10^3/uL 10^3/ uL (0.0-0.8) Baso # (Auto) 0.0 10^3/uL 10^3/ uL (0.0-0.1) Nucleated RBC % (a uto) 0 % % Nucleated RBCs # 0.0 /100WBC /100W BC Sodium 120 mmol/L L mmol /L (136-145) Potassium 3.7 mmol/L mmol/L (3.5-5.1) Chloride 82 mmol/L L mmol/ L (98-107) Carbon Dioxide 25 mmol/L mmol/L (22-29) Anion Gap 16.7 (5-19) BUN 6 mg/dL L mg/dL (8-23) Creatinine 0.6 mg/dL mg/dL (0.5-0.9) GFR Calculation 99.7 mL/min mL/mi n (90-130) Glucose 193 mg/dL H mg/dL (65-115) Calculated Osmolal ity 253 mOsm/kg L mOs m/kg (285-295) Calcium 7.2 mg/dL L mg/dL (8.5-10.5) Total Bilirubin 0.2 mg/dL mg/dL (0.15-1.2) AST 27 U/L U/L (0-32) ALT 17 U/L U/L (0-33) Alkaline Phosphata se 113 IU/L H IU/L (35-105) Total Protein 5.2 g/dL L g/dL (6.6-8.7) Albumin 2.7 g/dL L g/dL (3.5-5.2) Globulin 2.5 g/dL g/dL (1.3-4.6) Lipase 6 U/L L U/L (13-60) Imaging Data^: Xray Ortho: Radiologist's impression: [address] [address] XRay Report Signed Patient: Ingris Mendosa Wili Unit #: [id number] : 1955 [id number] Age/Sex: 66 / F ADM Date: 04/05/21 Loc: ER Room/Bed: Attending Dr: Ordering Provider/Ordering MD: Tara Webster Date of Service: 04/05/21 Procedure(s): XR shoulder LT min 2V* [id number] Accession Number(s): [id number] Report Number: [id number] WS: [id number] XR shoulder LT min 2V* [id number] REASON FOR EXAM: fall with shoulder pain FINDINGS: Narrowing of the acromioclavicular joint. Left clavicle and acromial process intact. There is increased inferior laxity in the left glenohumeral alignment without jono dislocation. Narrowing of the glenohumeral joint with large inferior osteophyte of the glenoid. These findings were previously demonstrated on a CT scan of the shoulder 10/12/2018. No fracture of the glenoid or proximal humerus. Scapula is intact. XR/XR shoulder LT min 2V* [id number] IMPRESSION: Laxity and osteoarthritis in the left glenohumeral joint. No definite acute fracture or dislocation. Osteoarthritis in the acromioclavicular joint. Dictated By: Damien Arreola Jr, MD Signed By: Damien Arreola Jr, MD Signed Date/Time: 0 04/05/21 1112 DD/ 1102 Critical Care Time Critical Care Time: Critical Care Time: No Discharge Plan Discharge Patient Disposition: Admitted As Inpatient Clinical Impression: Hyponatremia, Weakness Condition: Stable Coding Level of Care Code ED Passport Support Associate for [facility] Fwd Exam Comprehensive
[2021-04-05] MEDS: ketorolac 30 mg/mL INJ IM (13:05)
[2021-04-05 13:22] LABS: Basophils % 0.3 %; Eosinophils % 0.3 %; Hematocrit 34.9 % (37.0-47.0); Hemoglobin 12.3 g/dL (11.5-15.3); Lymphocytes # 2.1 10^3/uL (0.8-4.8); Lymphocytes % 17.5 %; Mean Corpuscular HGB Conc 35.2 g/dL (30.0-36.0); Mean Corpuscular Volume 93.6 fl (81-99); Mean Platelet Volume 10.1 fL (7.4-10.4); Monocytes % 7.9 %; Neutrophils # 8.81 10^3/uL (1.8-7.7); Neutrophils % 73.7 %; Nucleated Red Blood Cells % 0 %; Platelet Count 265 10^3/cmm (130-400); Red Blood Count 3.73 10^6/uL (4.1-5.3); Red Cell Distribution Width 12.8 % (12.1-15.1)
[2021-04-05 13:44] LABS: Alanine Aminotransferase 17 U/L (0-33); Albumin Level 2.7 g/dL (3.5-5.2); Alkaline Phosphatase 113 IU/L (35-105); Anion Gap 16.7 (5-19); Aspartate Amino Transferase 27 U/L (0-32); Blood Urea Nitrogen 6 mg/dL (8-23); Calcium 7.2 mg/dL (8.5-10.5); Carbon Dioxide 25 mmol/L (22-29); Chloride 82 mmol/L (98-107); Globulin 2.5 g/dL (1.3-4.6); Glomerular Filtration Rate 99.7 mL/min (90-130); Glucose 193 mg/dL (65-115); Lipase 6 U/L (13-60); Osmolality Calculated 253 mOsm/kg (285-295); Potassium 3.7 mmol/L (3.5-5.1); Sodium 120 mmol/L (136-145); Total Bilirubin 0.2 mg/dL (0.15-1.2); Total Protein 5.2 g/dL (6.6-8.7)
[2021-04-05] MEDS: morphine 4 mg/mL SDV 1 mL 2 MG IM (15:57)
[2021-04-05] MEDS: sodium chloride 0.9% 1,000 ML 125 ML IV (16:24)
--- NOTE | 2021-04-05 17:20 | PC.NURSE ---
FITNESS MANAGER changed Morphine from IVP to IM. IVP order not given.
--- NOTE | 2021-04-05 18:19 | PM.HP ---
Providers/Chief Complaint Admitting Physician: Naomi Brady MD Primary Care Provider: KATRINA Cash Chief Complaint: L SHOULDER INJURY/FALL RELATED/DEHYDRATED History of Present Illness Ingris Mendosa is a 66 year old female with h/o IDDM, HTN, GERD, hyperlipidemia who presented after a fall and shoulder pain. Evaluation reveals hyponatremia with serum sodium of 120. Patient reports diarrhea for a week. Appetite diminished. Given IVF and admitted for management. She is noted to be on multiple meds including buspar, flexeril, neurontin, remeron that may be associated with hyponatremia. She denies chest pain, dyspnea, chest congestion, nausea or vomiting. Review of Systems Const: Reports: body aches, change in appetite, fatigue and malaise; Denies: fever(s) or chills Eyes: Denies: change in vision or blurry vision ENMT: Denies: throat pain, hoarseness or mouth pain Card: Denies: chest pain, palpitations or irregular heart rhythm Resp: Denies: dyspnea or wheezing GI: Reports: diarrhea; Denies: abdominal pain, nausea, vomiting or dysphagia : Denies: flank pain or difficulty voiding Musc: Denies: neck pain or back pain Skin/Breast: Denies: rash, pruritus or erythema Neuro: Reports: numbness in extremities and weakness in extremities; Denies: headache(s) or Slurred speech present Psych: Reports: anxiety; Denies: depression or suicidal ideation Endo: Denies: polyuria Jeremiah/Lymph: Denies: easy bruising Medications/Allergies Home Medications Medication Instructions Recorded Confirmed Last Taken Type atorvastatin 80 mg PO BEDTIME@04/09/19 04/05/21 11/10/20 History metformin 1,000 mg PO BID@02/06/20 04/05/21 04/04/21 History fludrocortisone 0.1 mg PO DAILY@03/06/20 04/05/21 04/04/21 History sodium chloride 1 g PO BID@03/06/20 04/05/21 11/10/20 History loperamide 2 mg PO BID PRN 05/21/20 04/05/21 Unknown History levothyroxine 50 mcg PO DAILY@0800 #30 tab 05/23/20 04/05/21 04/04/21 Rx gabapentin 100 mg capsule 200 mg PO BID cap 06/12/20 04/05/21 04/05/21 History methocarbamol 750 mg PO TID PRN 06/27/20 04/05/21 11/10/20 History Glucerna 1.5 Warner 1 ea FEEDING TUBE .UP TO 5 TIMES A 07/04/20 04/05/21 07/03/20 History DAY PRN insulin aspart U-100 [Novolog See Rx Instructions .ROUTE 07/14/20 04/05/21 11/10/20 Rx Flexpen U-100 Insulin] .COMPLEX #0 ml buspirone 15 mg PO BID #60 tab 07/17/20 04/05/21 04/04/21 Rx metoprolol tartrate 50 mg tablet 25 mg PO BID tab 11/06/20 04/05/21 04/04/21 History pantoprazole 40 mg tablet,delayed 40 mg PO QAM 11/06/20 04/05/21 04/04/21 History release promethazine 25 mg tablet 25 mg PO TID PRN 11/06/20 04/05/21 Unknown History prednisone 1 mg tablet 2 mg PO QAM tab 12/12/20 04/05/21 04/04/21 History duloxetine 20 mg capsule,delayed 20 mg PO BID 02/06/21 04/05/21 04/04/21 History release clopidogrel 75 mg tablet See Rx Instructions .ROUTE .COMPLEX 02/11/21 04/05/21 Unknown History glimepiride 4 mg tablet 4 mg PO PRN PRN 02/11/21 04/05/21 Unknown History mirtazapine 45 mg tablet 45 mg PO BEDTIME 02/11/21 04/05/21 04/04/21 History sucralfate 1 gram tablet 1 g PO BID 02/11/21 04/05/21 Unknown History acetaminophen 650 - 975 mg PO QID PRN 04/05/21 04/05/21 Unknown History galantamine 4 mg PO BID 04/05/21 04/05/21 04/04/21 History hydrocodone-acetaminophen 1 tab PO Q12H PRN 04/05/21 04/05/21 04/05/21 07:30 History magnesium L-lactate [Magtab] 84 mg PO BID PRN 04/05/21 04/05/21 Unknown History potassium chloride 10 meq PO DAILY PRN 04/05/21 04/05/21 Unknown History tizanidine 4 mg PO TID PRN 04/05/21 04/05/21 Unknown History Allergies Allergy/AdvReac Type Severity Reaction Status Date / Time No Known Allergies Allergy Verified 04/05/21 15:44 PFSH Acute PFSH: Medical History Anemia C. 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, recurrent severe without psychotic features Morbid obesity Post-traumatic stress disorder, chronic Surgical History H/O esophagogastroduodenoscopy H/O: hysterectomy History of bunionectomy bilateral Hx of cholecystectomy Status post colonoscopy Family History Mother Hypertension Diabetes Father Hypertension Asthma Other CAD (coronary artery disease) Cancer Denies family history of Anesthesia complication Bleeding disorder Social History Quit status (tobacco): has tried quititng Second hand smoke exposure: Yes Smoking risk assessment/counseling performed?: No Alcohol intake: former Former alcohol use details: Reportedly has not had any alcohol since June Household members: spouse Housing: Manufactured/Mobile home Marital status: Current occupational status: retired History of recent travel: No Female Reproductive History: Date of last menstrual period: 06/14/20 Vitals/I&O/Wt Last Vital Signs Temp 98.1 F 04/05/21 11:08 Pulse 103 H 04/05/21 11:16 Resp 18 04/05/21 15:57 BP 105/52 04/05/21 11:16 Pulse Ox 97 04/05/21 11:16 Weight last 48 hrs Weight 56.699 kg Physical Exam Const: COMMON NORMALS: no acute distress, average body habitus and patient oriented x3 HENMT: COMMON NORMALS: normocephalic and atraumatic Eye: COMMON NORMALS: Equal, round and reactive pupils present and EOMs intact bilaterally Neck/C-Spine: COMMON NORMALS: full ROM, supple and no JVD Chest: COMMONS NORMALS: normal inspection of the chest Resp: COMMON NORMALS: normal respiratory effort and clear to auscultation bilaterally Cardio: COMMON NORMALS: no JVD, regular rate and regular rhythm GI: COMMON NORMALS: Normal to inspection, nondistended, normoactive bowel sounds present, Soft to palpation, non-tender and No hepatosplenomegaly present Back/Pelvis: COMMON NORMALS: no CVA tenderness Extremity: COMMON NORMALS: normal to inspection, full ROM, no clubbing, cyanosis or edema and no pedal edema Neuro: COMMON NORMALS: patient oriented x3 and moves all extremities Psych: COMMON NORMALS: mental status grossly normal Skin: COMMON NORMALS: no rashes or lesions noted and no wounds Data : 04/06/21 06:03 04/06/21 06:03 A&P Assessment and plan (1) Hyponatremia: Patient noted to have serum sodium of 120- apparently has h/o hyponatremia- noted to be on multiple meds that may be associated with hyponatremia She also reports diarrhea however, appears to be chronic. Started on IVF for presumed dehydration. Monitor closely I/O, renal function Correct serum sodium slowly Status: Acute (2) Chronic diarrhea: Monitor No acute intervention at this time Status: Acute (3) CKD (chronic kidney disease), stage II: stable Status: Acute (4) Hypertension: stable Status: Chronic Qualifiers: Hypertension type: primary hypertension Qualified Code(s): I10 - Essential (primary) hypertension (5) Hypothyroidism: resume home dose of levothyroxine Status: Acute Qualifiers: Hypothyroidism type: unspecified Qualified Code(s): E03.9 - Hypothyroidism, unspecified Attestations Medical Necessity Statement*: Patient requires admission for management and monitoring of her acute medical problems including hyponatremia, weakness, diarrhea Coding Level of Care Code Acute Lead Pl Sql Developer for [facility] Fwd Exam Comprehensive Diagnoses Hyponatremia E87.1 Chronic diarrhea K52.9 CKD (chronic kidney disease), stage II N18.2 Hypertension I10 Hypertension type: primary hypertension Hypothyroidism E03.9 Hypothyroidism type: unspecified
[2021-04-05] MEDS: morphine 4 mg/mL SDV 1 mL IM (18:29)
[2021-04-05] MEDS: HYDROmorphone 1 mg/mL INJ 1 mL 0.5 MG IVP (19:39)
[2021-04-05] MEDS: HYDROcodone-acetaminophen 5-325 mg Tablet 1 TAB PO (20:32)
[2021-04-05 22:06] LABS: Add Urine Microscopic? NO; Charge for UA Resulting for Rev
[2021-04-05 22:20] LABS: Bilirubin Urine Neg (Negative); Blood Urine Neg (Negative); Glucose Urine UA Norm (Normal); Ketones Urine Negative (Negative); Leukocyte Esterase Urine Negative (Negative); Nitrate Urine Negative (Negative); Protein Urine Neg (Negative); Urine Appearance Clear (CLEAR); Urine Color Yellow (Yellow); Urobilinogen Urine Norm (Negative); pH Urine 5 (5-7)
[2021-04-05] MEDS: metoprolol tartrate 50 mg Tablet 25 MG PO (22:30)
[2021-04-05] MEDS: gabapentin 100 mg Capsule 200 MG PO (22:30)
[2021-04-05] MEDS: sodium chloride 1 gm Tablet PO (23:19)
[2021-04-05] MEDS: sucralfate 1 gm Tablet PO (23:22)
[2021-04-05] MEDS: sodium chloride 0.9% 1,000 ML 100 ML IV (23:33)
[2021-04-06] MEDS: acetaminophen 325 mg Tablet 650 MG PO ×2 (02:35→13:34)
[2021-04-06 03:00] VITALS: BP 113/84; PULSE 105; RESP 16; TEMP 36.4; O2SAT 95
[2021-04-06] MEDS: predniSONE 1 mg Tablet 2 MG PO (05:15)
--- NOTE | 2021-04-06 06:07 | PC.NURSE ---
Patient resting in bed throughout shift. Regularly removing IV lines and attempting to get out of bed. Education and redirection provided. Bed alarm on. Patient complains of pain in shoulder. Medication administered and physician notified.
[2021-04-06 06:22] LABS: Basophils % 0.2 %; Eosinophils # 0.1 10^3/uL (0.0-0.8); Eosinophils % 0.7 %; Hematocrit 37.5 % (37.0-47.0); Hemoglobin 13.2 g/dL (11.5-15.3); Lymphocytes # 2.5 10^3/uL (0.8-4.8); Lymphocytes % 20.2 %; Mean Corpuscular HGB Conc 35.2 g/dL (30.0-36.0); Mean Corpuscular Hemoglobin 33.3 pg (28.0-34.0); Mean Corpuscular Volume 94.7 fl (81-99); Mean Platelet Volume 10.3 fL (7.4-10.4); Monocytes % 8.1 %; Neutrophils # 8.89 10^3/uL (1.8-7.7); Neutrophils % 70.6 %; Nucleated Red Blood Cells % 0 %; Platelet Count 286 10^3/cmm (130-400); Red Blood Count 3.96 10^6/uL (4.1-5.3); Red Cell Distribution Width 12.6 % (12.1-15.1); White Blood Count 12.6 10^3/uL (4.0-10.0)
[2021-04-06] MEDS: pantoprazole DR 40 mg Tablet PO (06:25)
[2021-04-06 06:42] LABS: Alanine Aminotransferase 21 U/L (0-33); Albumin Level 2.7 g/dL (3.5-5.2); Alkaline Phosphatase 138 IU/L (35-105); Anion Gap 18.5 (5-19); Aspartate Amino Transferase 35 U/L (0-32); Blood Urea Nitrogen 5 mg/dL (8-23); Calcium 7.3 mg/dL (8.5-10.5); Carbon Dioxide 24 mmol/L (22-29); Chloride 87 mmol/L (98-107); Globulin 2.8 g/dL (1.3-4.6); Glomerular Filtration Rate 123.1 mL/min (90-130); Glucose 159 mg/dL (65-115); Osmolality Calculated 263 mOsm/kg (285-295); Potassium 3.5 mmol/L (3.5-5.1); Sodium 126 mmol/L (136-145); Total Bilirubin 0.4 mg/dL (0.15-1.2); Total Protein 5.5 g/dL (6.6-8.7)
[2021-04-06 08:00] VITALS: BP 118/80; PULSE 132; RESP 18; TEMP 37.1; O2SAT 96
[2021-04-06] MEDS: tizanidine 4 mg Tablet PO ×2 (09:04→20:53)
[2021-04-06] MEDS: HYDROcodone-acetaminophen 5-325 mg Tablet 1 TAB PO ×2 (09:04→17:32)
[2021-04-06] MEDS: sodium chloride 1 gm Tablet PO ×2 (09:04→20:52)
[2021-04-06] MEDS: duloxetine 20 mg Capsule PO ×3 (09:05→17:34)
[2021-04-06] MEDS: fludrocortisone 0.1 mg Tablet PO (09:05)
[2021-04-06] MEDS: gabapentin 100 mg Capsule 200 MG PO ×2 (09:05→17:32)
[2021-04-06] MEDS: BuSPIRONE 10 mg Tablet 15 MG PO ×2 (09:05→17:33)
[2021-04-06] MEDS: sucralfate 1 gm Tablet PO ×2 (09:06→17:32)
[2021-04-06] MEDS: metoprolol tartrate 50 mg Tablet 25 MG PO ×2 (09:06→17:34)
[2021-04-06] MEDS: levothyroxine 50 mcg Tablet PO (09:06)
[2021-04-06] MEDS: sodium chloride 0.9% 1,000 ML 100 ML IV (09:08)
[2021-04-06] MEDS: sodium chloride 3% 500 ML 30 ML IV (11:06)
[2021-04-06 11:56] VITALS: BP 98/58; PULSE 60; RESP 16; TEMP 37; O2SAT 90
[2021-04-06 11:57] LABS: Glucose Point of Care 235 mg/dL (70-110)
[2021-04-06 12:08] LABS: Urine Random Sodium < 10 mmol/L
--- NOTE | 2021-04-06 12:09 | P.PN_ITS ---
Subjective Subjective: Interval history: Patient resting in bed. Spouse at bedside. She c/o left shoulder pain from fall. She has good appetite. Medications: Reviewed: Yes Vitals/I&O/Wt Last Vital Signs Temp 98.6 F 04/06/21 11:56 Pulse 60 04/06/21 11:56 Resp 16 04/06/21 11:56 BP 98/58 04/06/21 11:56 Pulse Ox 90 04/06/21 11:56 04/05/21 04/06/21 04/06/21 22:59 06:59 14:59 Intake Total 543.75 / 543.75 360 / 903.75 1463.333 / 1463.333 Output Total 200 / 200 700 / 900 300 / 300 Balance 343.75 / 343.75 -340 / 3.75 1163.333 / 1163.333 Weight last 48 hrs Weight 56.699 kg Physical Exam Narrative: EXAM NARRATIVE: chronically ill appearing female Const: COMMON NORMALS: patient oriented x3 HENMT: COMMON NORMALS: normocephalic and atraumatic HEAD & SCALP: normocephalic and atraumatic Neck/C-Spine: COMMON NORMALS: supple and no meningeal signs Chest: COMMONS NORMALS: normal inspection of the chest Resp: COMMON NORMALS: normal respiratory effort, No use of accessory muscles and clear to auscultation bilaterally AUSCULTATION: clear to auscultation bilaterally Cardio: COMMON NORMALS: regular rate, regular rhythm, S1 normal heart sound present, S2 normal heart sound present and No murmurs present (Cardio) RATE: regular rate RHYTHM: regular rhythm HEART SOUNDS: S1 normal heart sound present and S2 normal heart sound present GI: COMMON NORMALS: Soft to palpation and non-tender PALPATION: Yes Soft to palpation Extremity: COMMON NORMALS: normal to inspection, no clubbing, cyanosis or edema and no pedal edema Neuro: COMMON NORMALS: patient oriented x3, moves all extremities and no sensory deficits noted MENINGEAL SIGNS: Yes no meningeal signs Psych: COMMON NORMALS: cooperative ATTITUDE: Yes calm Skin: COMMON NORMALS: no rashes or lesions noted GENERAL SKIN EXAM: no connor hes or lesions noted Data : 04/06/21 06:03 04/06/21 06:03 A&P Assessment and plan (1) Hyponatremia: Patient noted to have serum sodium of 120 on admission- has h/o hyponatremia- noted to be on multiple meds that may be associated with hyponatremia She also reports diarrhea however, appears to be chronic. Started on NS with improvement in sodium level to 126. Serum osmolality, urine osmolality and urine sodium sent. Suspect SIADH related- will give hypertonic saline and monitor closely She is on salt tabs at home Compliance is uncertain Monitor closely I/O, renal function Correct serum sodium slowly Status: Acute (2) Chronic diarrhea: Monitor No acute intervention at this time Status: Acute (3) CKD (chronic kidney disease), stage II: stable Status: Acute (4) Hypertension: stable Status: Chronic Qualifiers: Hypertension type: primary hypertension Qualified Code(s): I10 - Es sential (primary) hypertension (5) Hypothyroidism: resume home dose of levothyroxine Status: Acute Qualifiers: Hypothyroidism type: unspecified Qualified Code(s): E03.9 - Hypothyroidism, unspecified Attestations Medical Necessity Statement*: Patient requires ongoing hospital stay for management of acute problems including hyponatremia and weakness Coding Level of Care Code Acute Rolling Down Machine Operator for [facility] Fwd Exam Comprehensive Diagnoses Hyponatremia E87.1 Chronic diarrhea K52.9 CKD (chronic kidney disease), stage II N18.2 Hypertension I10 Hypertension type: primary hypertension Hypothyroidism E03.9 Hypothyroidism type: unspecified
--- NOTE | 2021-04-06 13:21 | PC.CHAP ---
Pastoral Care Encounter/Spiritual Assessment Type of Contact [] Declined blackjack pit boss visit [] Patient/Family/Request visit [] Outpatient visit [] Follow-up visit [] Physician referral [] Code/Alert [XX] Routine visit [] Staff referral [] Actively dying [XX] Patient sleeping [] Family support [] [] Out of room [] Palliative care [] [] Receiving care in room [] Pre-surgical visit [] Trauma [] Long length of stay [] ICU visit [XX] Other: Spouse present in room Relational/Emotional Strength [] Patient feels connected with others/family/visitors/staff [] Distress [] Loneliness/isolation [] Abandonment Spirituality of Patient [] Person of [place] [] Attends Anabaptism of their [place] [] Believes in Prayer [] Reads Bible or Mandaeism materials [] There are Spiritual issues to be addressed Er Nurse Interventions [] Prayer [] Active listening [] Non-anxious presence [] Spiritual/emotional support [] Crisis/trauma care [] Spiritual counseling [] Bereavement support [] Provided bereavement packet [] Provided Bible/devotional materials [] Provided toy/stuffed animal, coloring book to patient or family member [] Provided Communion [] Anointing/[place] [] Salvation [] Completed spiritual assessment [] Other: Impact on Illness or Injury [] Angry [] Fearful [] Anxious [] Often cries [] Exhaustion [] Unable to work [] Unable to attend hinduism [] Unable to walk/stand [] Unable to read [] Unable to drive [] Unable to eat/drink [] Unable to sleep [] Unable to be with family [] Patient intubated [] Other: Summary: Er Nurse visited with spouse who says that reason for hospitalization occurs periodically. Spouse was doing fine. Pt and spouse live locally. Time spent with patient: <5 mins
[2021-04-06 16:00] VITALS: BP 126/84; PULSE 78; RESP 16; TEMP 36.6; O2SAT 93
[2021-04-06 17:03] LABS: Glucose Point of Care 166 mg/dL (70-110)
[2021-04-06] MEDS: insulin lispro 100 unit/1 mL SUBCUT (17:34)
[2021-04-06 20:00] VITALS: BP 131/80; PULSE 75; RESP 21; TEMP 36.8; O2SAT 97
[2021-04-06 20:43] LABS: Glucose Point of Care 107 mg/dL (70-110)
[2021-04-06] MEDS: mirtazapine 30 mg Tablet 45 MG PO (20:57)
[2021-04-06] MEDS: atorvastatin 40 mg Tablet 80 MG PO (20:58)
[2021-04-07] VITALS: BP 99/61; PULSE 81; RESP 16; TEMP 36.9; O2SAT 96
[2021-04-07] MEDS: HYDROcodone-acetaminophen 5-325 mg Tablet 1 TAB PO ×2 (00:52→10:26)
[2021-04-07 02:33] VITALS: BP 95/60; PULSE 82; RESP 22; TEMP 37.1; O2SAT 96
[2021-04-07] MEDS: pantoprazole DR 40 mg Tablet PO (05:49)
[2021-04-07] MEDS: predniSONE 1 mg Tablet 2 MG PO (05:49)
[2021-04-07 06:33] LABS: Basophils % 0.3 %; Eosinophils # 0.1 10^3/uL (0.0-0.8); Eosinophils % 0.8 %; Hematocrit 34.9 % (37.0-47.0); Hemoglobin 11.9 g/dL (11.5-15.3); Lymphocytes % 23.1 %; Mean Corpuscular HGB Conc 34.1 g/dL (30.0-36.0); Mean Corpuscular Hemoglobin 32.7 pg (28.0-34.0); Mean Corpuscular Volume 95.9 fl (81-99); Monocytes % 7.4 %; Neutrophils # 8.91 10^3/uL (1.8-7.7); Neutrophils % 68.2 %; Nucleated Red Blood Cells % 0 %; Platelet Count 251 10^3/cmm (130-400); Red Blood Count 3.64 10^6/uL (4.1-5.3); Red Cell Distribution Width 12.8 % (12.1-15.1); White Blood Count 13.1 10^3/uL (4.0-10.0)
[2021-04-07 06:36] LABS: Glucose Point of Care 145 mg/dL (70-110)
[2021-04-07 07:08] LABS: Anion Gap 12.4 (5-19); Blood Urea Nitrogen 4 mg/dL (8-23); Calcium 7.3 mg/dL (8.5-10.5); Carbon Dioxide 28 mmol/L (22-29); Chloride 95 mmol/L (98-107); Glomerular Filtration Rate 159.2 mL/min (90-130); Glucose 144 mg/dL (65-115); Osmolality Calculated 273 mOsm/kg (285-295); Potassium 3.4 mmol/L (3.5-5.1); Sodium 132 mmol/L (136-145)
[2021-04-07] MEDS: insulin lispro 100 unit/1 mL SUBCUT (07:58)
[2021-04-07] MEDS: metoprolol tartrate 50 mg Tablet 25 MG PO (07:59)
[2021-04-07] MEDS: gabapentin 100 mg Capsule 200 MG PO (07:59)
[2021-04-07] MEDS: duloxetine 20 mg Capsule PO (07:59)
[2021-04-07 08:00] VITALS: BP 122/77; PULSE 80; RESP 16; TEMP 36.8; O2SAT 99
[2021-04-07] MEDS: BuSPIRONE 10 mg Tablet 15 MG PO (08:00)
[2021-04-07] MEDS: sucralfate 1 gm Tablet PO (08:01)
[2021-04-07] MEDS: sodium chloride 1 gm Tablet PO (08:04)
[2021-04-07] MEDS: levothyroxine 50 mcg Tablet PO (08:13)
--- NOTE | 2021-04-07 10:07 | P.DS_ITS ---
Discharge Providers Date of Admission: 04/05/21 14:16 Date of Discharge: April 07, 2021 Attending Provider at Admission: Naomi Brady MD Attending Provider at Discharge: Naomi Brady MD Primary Care Provider: KATRINA Cash Diagnoses at Discharge Discharge Diagnosis (1) Hyponatremia: Status: Acute (2) Chronic diarrhea: Status: Acute (3) CKD (chronic kidney disease), stage II: Status: Acute (4) Hypertension: Status: Chronic Qualifiers: Hypertension type: primary hypertension Qualified Code(s): I10 - Essential (primary) hypertension (5) Hypothyroidism: Status: Acute Qualifiers: Hypothyroidism type: unspecified Qualified Code(s): E03.9 - Hypothyroidism, unspecified Reason for Visit Reason for Visit: L SHOULDER INJURY/FALL RELATED/DEHYDRATED Hospital Course Hospital Course Patient is 66 year old female with h/o IDDM, HTN, GERD and hyperlipidemia who presented following fall and left shoulder pain. 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 She improved with hypertonic saline infusion. Sodium level was gradually corrected and is currently 132. Patient has previous episodes of hyponatremia. She is on multiple meds that may contribute to SIADH with hyponatremia- these include remeron, galantamine, buspar Patient also noted to be non compliant with meds- taking them as needed. Patient given education and counselled on compliance. Patient is stable for discharge and F/U with Nurse Practitioner as an outpatient in 5-7 days Physical Exam Narrative: EXAM NARRATIVE: alert, no acute distress Const: COMMON NORMALS: patient oriented x3 HENMT: COMMON NORMALS: normocephalic and atraumatic HEAD & SCALP: normocephalic and atraumatic Neck/C-Spine: COMMON NORMALS: supple and no JVD Chest: COMMONS NORMALS: normal inspection of the chest Resp: COMMON NORMALS: clear to auscultation bilaterally AUSCULTATION: clear to auscultation bilaterally Cardio: COMMON NORMALS: no JVD, regular rate, regular rhythm and No murmurs present (Cardio) RATE: regular rate RHYTHM: regular rhythm GI: COMMON NORMALS: Soft to palpation and no masses PALPATION: Yes Soft to palpation Extremity: COMMON NORMALS: no calf tenderness and no pedal edema Neuro: COMMON NORMALS: patient oriented x3 and moves all extremities Psych: COMMON NORMALS: cooperative ATTITUDE: Yes calm Skin: COMMON NORMALS: no rashes or lesions noted, no wounds and turgor normal GENERAL SKIN EXAM: no rashes or lesions noted and turgor normal Discharge Data Data Completed and Pending: Completed Studies During Hospitalization Category Date Time Status XR shoulder LT mi n 2V* [id number] Stat Exams 04/05/21 10:50 Completed Pending at discharge Category Date Time Status Basic Metabolic P bernardo AM LABS Lab 04/08/21 04:00 Ordered Complete Blood Co unt w/Auto AM LABS Lab 04/08/21 04:00 Ordered Osmolality Serum Routine Lab 04/06/21 11:40 Received Osmolality Urine Routine Lab 04/06/21 11:15 Received Labs from last 24 hours 04/07/21 04/07/21 04/07/21 06:25 06:25 06:25 WBC 13.1 H RBC 3.64 L Hgb 11.9 Hct 34.9 L MCV 95.9 MCH 32.7 MCHC 34.1 RDW 12.8 Plt Count 251 MPV 10.0 Neut % (Auto) 68.2 Lymph % (Auto) 23.1 Henderson % (Auto) 7.4 Eos % (Auto) 0.8 Baso % (Auto) 0.3 Neut # (Auto) 8.91 H Lymph # (Auto) 3.0 Henderson # (Auto) 1.0 H Eos # (Auto) 0.1 Baso # (Auto) 0.0 Nucleated RBC % (a uto) 0 Nucleated RBCs # 0.0 Sodium 132 L Potassium 3.4 L Chloride 95 L Carbon Dioxide 28 Anion Gap 12.4 BUN 4 L Creatinine 0.4 L GFR Calculation 159.2 H Glucose 144 H POC Glucose 145 H Serum Osmolality Calculated Osmolal ity 273 L Calcium 7.3 L Urine Osmolality Ur Random Sodium 04/06/21 04/06/21 04/06/21 20:17 16:57 11:48 WBC RBC Hgb Hct MCV MCH MCHC RDW Plt Count MPV Neut % (Auto) Lymph % (Auto) Henderson % (Auto) Eos % (Auto) Baso % (Auto) Neut # (Auto) Lymph # (Auto) Henderson # (Auto) Eos # (Auto) Baso # (Auto) Nucleated RBC % (a uto) Nucleated RBCs # Sodium Potassium Chloride Carbon Dioxide Anion Gap BUN Creatinine GFR Calculation Glucose POC Glucose 107 166 H 235 H Serum Osmolality Calculated Osmolal ity Calcium Urine Osmolality Ur Random Sodium 04/06/21 04/06/21 04/06/21 11:40 11:15 11:15 WBC RBC Hgb Hct MCV MCH MCHC RDW Plt Count MPV Neut % (Auto) Lymph % (Auto) Henderson % (Auto) Eos % (Auto) Baso % (Auto) Neut # (Auto) Lymph # (Auto) Henderson # (Auto) Eos # (Auto) Baso # (Auto) Nucleated RBC % (a uto) Nucleated RBCs # Sodium Potassium Chloride Carbon Dioxide Anion Gap BUN Creatinine GFR Calculation Glucose POC Glucose Serum Osmolality Pending Calculated Osmolal ity Calcium Urine Osmolality Pending Ur Random Sodium < 10 Vitals: Last Vital Signs Temp 98.2 F 04/07/21 08:00 Pulse 80 04/07/21 08:00 Resp 16 04/07/21 08:00 BP 122/77 04/07/21 08:00 Pulse Ox 99 04/07/21 08:00 Discharge Plan Discharge Patient Disposition: Home Condition: Stable Prescriptions: New ondansetron HCl 4 mg Tablet 4 mg PO Q6H PRN (Reason: Nausea And Vomiting) Qty: 10 RF: 0 Continued gabapentin 100 mg capsule 200 mg PO BID RF: 0 promethazine 25 mg tablet 25 mg PO TID PRN (Reason: Nausea) RF: 0 pantoprazole 40 mg tablet,delayed release (DR/EC) 40 mg PO QAM RF: 0 metoprolol tartrate 50 mg tablet 25 mg PO BID RF: 0 duloxetine 20 mg capsule,delayed release(DR/EC) 20 mg PO BID RF: 0 glimepiride 4 mg tablet 4 mg PO PRN PRN (Reason: pts states just takes prn not on [facility] med [facility]) RF: 0 sucralfate 1 gram tablet 1 g PO BID RF: 0 mirtazapine 45 mg tablet 45 mg PO BEDTIME RF: 0 clopidogrel 75 mg tablet See Rx Instructions .ROUTE .COMPLEX RF: 0 atorvastatin 80 mg Tablet 80 mg PO BEDTIME@20 RF: 0 Glucerna 1.5 Warner 0.08-1.5 gram-kcal/mL Liquid 1 ea feeding tube .UP TO 5 TIMES A DAY PRN (Reason: malnutrition) RF: 0 buspirone 15 mg tablet 15 mg PO BID Qty: 60 RF: 0 hydrocodone-acetaminophen 5-325 mg tablet 1 tab PO Q12H PRN (Reason: Pain) RF: 0 acetaminophen 325 mg tablet 650 - 975 mg PO QID PRN (Reason: Pain) RF: 0 galantamine 4 mg tablet 4 mg PO BID RF: 0 magnesium L-lactate [Magtab] 84 mg tablet extended release 84 mg PO BID PRN (Reason: pts states just takes prn) RF: 0 tizanidine 4 mg tablet 4 mg PO TID PRN (Reason: Muscle Spasm) RF: 0 potassium chloride 20 mEq Tablet Extended Release 10 meq PO DAILY PRN (Reason: va has 10meq daily states takes prn) RF: 0 metformin 1,000 mg Tablet 1,000 mg PO BID@, RF: 0 sodium chloride 1 gram tablet 1 g PO BID@, RF: 0 fludrocortisone 0.1 mg tablet 0.1 mg PO DAILY@09 RF: 0 loperamide 2 mg Tablet 2 mg PO BID PRN (Reason: Diarrhea) RF: 0 levothyroxine 50 mcg Tablet 50 mcg PO DAILY@0800 Qty: 30 RF: 0 methocarbamol 750 mg tablet 750 mg PO TID PRN (Reason: Muscle Spasm) RF: 0 insulin aspart U-100 [Novolog Flexpen U-100 Insulin] 100 unit/mL (3 mL) Insulin Pen See Rx Instructions .ROUTE .COMPLEX Qty: 0 RF: 0 prednisone 1 mg tablet 2 mg PO QAM RF: 0 Discharge Orders: Discharge Order (Routine); Ordered 04/07/21 Ordered By: Naomi Brady Referrals: Thu Flores FNP [Primary Care Provider] - Discharge Diet: Diabetic Discharge Activity: Resume usual activity Patient Instructions: Opioid Safety Discharge Attestations Time Spent in Discharge Care*: greater than 30 min Status at Discharge: Cognitive status at discharge: cognitively intact , Behavioral status at discharge: cooperative , Quality Metrics Clinical Quality Measures During this hospital stay, did patient experience: None Coding Level of Care Code Acute [facility] note Diagnoses Hyponatremia E87.1 Chronic diarrhea K52.9 CKD (chronic kidney disease), stage II N18.2 Hypertension I10 Hypertension type: primary hypertension Hypothyroidism E03.9 Hypothyroidism type: unspecified
[2021-04-07] MEDS: fludrocortisone 0.1 mg Tablet PO (10:22)
[2021-04-07 10:40] LABS: Glucose Point of Care 104 mg/dL (70-110)
--- NOTE | 2021-04-07 11:11 | PC.NURSE ---
Discharge orders discussed with patient and spouse with verbalizing understanding. Patient wheeled out with spouse in wheel chair to private vehicle.
[2021-04-07 11:13] VITALS: BP 122/77; PULSE 80; RESP 16; TEMP 36.8; O2SAT 99
[2021-04-08 14:41] LABS: Osmolality Serum 267 mOsm/kg (278-305)
[2021-04-08 15:33] LABS: Osmolality Urine 66 mOsm/kg (50-1200)
== END 2021-04-07 11:14 | disposition home or self-care (01) ==
LOC: ER 14:33 → MEDSURG 18:07
PROVIDERS: Emergency Medicine; Admitting Provider Internal Medicine; Emergency Provider Physician Assistant; PCP Nurse Practitioner; Visit Provider Internal Medicine
DX: E87.1 Hypo-osmolality and hyponatremia (principal); K52.9 Noninfective gastroenteritis and colitis, unspecified; I13.0 Hypertensive heart and chronic kidney disease with heart failure and stage 1 through stage 4 chronic kidney disease, or unspecified chronic kidney disease; E11.22 Type 2 diabetes mellitus with diabetic chronic kidney disease; I50.32 Chronic diastolic (congestive) heart failure; N18.2 Chronic kidney disease, stage 2 (mild); E03.9 Hypothyroidism, unspecified; E11.8 Type 2 diabetes mellitus with unspecified complications; K21.9 Gastro-esophageal reflux disease without esophagitis; Z79.84 Long term (current) use of oral hypoglycemic drugs; Z79.4 Long term (current) use of insulin; G89.29 Other chronic pain; M54.9 Dorsalgia, unspecified; Z79.891 Long term (current) use of opiate analgesic; Z79.52 Long term (current) use of systemic steroids; E66.01 Morbid (severe) obesity due to excess calories; Z68.22 Body mass index [BMI] 22.0-22.9, adult; Z82.49 Family history of ischemic heart disease and other diseases of the circulatory system; Z83.3 Family history of diabetes mellitus; F17.210 Nicotine dependence, cigarettes, uncomplicated
CPT/HCPCS: 12345; 36415; 36416; 73030; 80048; 80053; 81003; 82962; 83690; 83930; 83935; 84300; 85025; 96361; 96372; 96374; 99285; G0378; J1170; J1815; J1885; J2270; J7030; J7131; J7512

== ENCOUNTER 2021-04-14 04:28 | Inpatient (IN) | payer OTHER, MEDICARE, SELFPAY ==
[2021-04-14] VITALS (19 sets, daily range): BP systolic 134–203; BP diastolic 100–137; PULSE 89–155; RESP 17–31; TEMP 36.4; O2SAT 88–98; BMI 28.3
--- NOTE | 2021-04-14 04:52 | XRR_ITS ---
PROCEDURE INFORMATION: Exam: XR Chest Exam date and time: 04/14/2021 4:52 AM Age: 66 years old Clinical indication: Dyspnea; Additional info: SOB hypoxia TECHNIQUE: Imaging protocol: XR of the chest. Views: 1 view. COMPARISON: CT chest con [id number] 03/27/2021 5:13 AM FINDINGS: Lungs: There are patchy bilateral ground-glass opacities present, findings suggesting a patchy bilateral interstitial pneumonia. Pleural spaces: Unremarkable. No pleural effusion. No pneumothorax. Heart/Mediastinum: Unremarkable. No cardiomegaly. Bones/joints: Unremarkable. XR/XR chest 1V portable [id number] IMPRESSION: 1. Patchy bilateral ground-glass opacities compatible with a bilateral interstitial pneumonia.
--- NOTE | 2021-04-14 04:52 | W.ED.NAVMDI ---
Documented by User: Chema Acosta DO 04/14/21 18:35 HPI - Nausea/Vomiting/Diarrhea General: Chief complaint: Nausea/Vomiting/Diarrhea Stated complaint: N\V\Diarhea\Headache\Joint Pains Time Seen by Provider: 04/14/21 04:48 History of Present Illness: HPI Narrative: 66-year-old female recently hospitalized for dehydration, kidney injury, and hyponatremia. She presents feeling ill for the past couple of days. She is short of breath, and has vomited multiple times. MD elicited complaint: nausea and vomiting Onset (ago): day(s) Associated nausea: Yes Associated abdominal pain: No Relieving factors: none Context: sick contacts Associated symtoms: Reports nausea and palpitations; Denies change in vision, chest pain or epistaxis Review of Systems Const: Denies: fever(s) Eyes: Denies: change in vision ENMT: Denies: epistaxis Card: Reports: palpitations; Denies: chest pain Resp: Reports: dyspnea GI: Reports: nausea PFSH ED PFSH: Medical History Anemia C. 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, recurrent severe without psychotic features Morbid obesity Post-traumatic stress disorder, chronic Surgical History H/O esophagogastroduodenoscopy H/O: hysterectomy History of bunionectomy bilateral Hx of cholecystectomy Status post colonoscopy Family History Mother Hypertension Diabetes Father Hypertension Asthma Other CAD (coronary artery disease) Cancer Denies family history of Anesthesia complication Bleeding disorder Social History Quit status (tobacco): has tried quititng Second hand smoke exposure: Yes Smoking risk assessment/counseling performed?: No Alcohol intake: former Former alcohol use details: Reportedly has not had any alcohol since June Household members: spouse Housing: Manufactured/Mobile home Marital status: Current occupational status: retired History of recent travel: No Female Reproductive History: Date of last menstrual period: 06/14/20 Physical Exam Const: GENERAL APPEARANCE: in distress and ill appearing; not comfortable ORIENTATION/CONSCIOUSNESS: Yes oriented to person and Yes oriented to place; not oriented to time HENMT: COMMON NORMALS: normocephalic HEAD & SCALP: normocephalic Eye: COMMON NORMALS: Equal, round and reactive pupils present and EOMs intact bilaterally PUPIL: Yes Equal, round and reactive pupils present Chest: COMMONS NORMALS: normal inspection of the chest Resp: EFFORT & INSPECTION: Yes tachypneic, Yes respiratory distress and Yes uses accessory muscles AUSCULTATION: no rales, no rhonchi and diminished lung sounds Cardio: COMMON NORMALS: regular rhythm and Peripheral pulses 2+ throughout RATE: tachycardic RHYTHM: regular rhythm PERIPHERAL PULSES: Peripheral pulses 2+ throughout GI: COMMON NORMALS: Soft to palpation INSPECTION: Yes abdominal distension PALPATION: Yes Soft to palpation Neuro: SENSORIUM/ORIENTATION: Yes oriented to person, Yes oriented to place and No oriented to time Course Vital Signs: Vital signs: Vital Signs Temperature 97.9 F 04/19/21 15:00 Pulse Rate 101 H 04/19/21 15:00 Respiratory Rate 18 04/19/21 15:00 Blood Pressure 115/58 04/19/21 15:00 Pulse Oximetry 94 04/19/21 15:00 MDM - Nausea/Vomiting/Diarrhea MDM Narrative Medical decision making narrative: Patient has a white blood cell count of 24.7. Heart rate is 140, and she is hypertensive, blood pressure 175/130 she was significantly hypoxic on arrival, and placed on high flow nasal cannula at 14 L. Currently saturations are 98 to 99%. Rest of lab, COVID-19 PCR, and CTs are pending at this point. Patient will be checked out to Dr. Blanchard at shift change Lab Data Result diagrams: 04/18/21 03:10 04/18/21 03:10 Labs: Lab Results 04/14/21 04/14/21 04/14/21 04:56 05:06 05:45 WBC RBC Hgb Hct MCV MCH MCHC RDW Plt Count MPV Neut % (Auto) Lymph % (Auto) [place] % (Auto) Eos % (Auto) Baso % (Auto) Neut # (Auto) Lymph # (Auto) [place] # (Auto) Eos # (Auto) Baso # (Auto) Nucleated RBC % (auto) Nucleated RBCs # D-Dimer 1.64 ug/mIFEU H ug/mIFEU (0-0.59) Specimen Type Arterial Sample Site Radial, left ABG pH 7.49 H (7.35-7.45) ABG pCO2 26.5 mmHg L mmHg (35-45) ABG pO2 46.8 mmHg L mmHg (80.0-100.0) ABG HCO3 20.0 mmol/L L mmol/L (22-26) ABG Base Excess -1.9 mmol/L mmol/L (-2.0-2.0) Jose L Test Pos Hematocrit 42.8 % % (37-47) O2 Delivery Device Nc Dispensary Technician ID Buttr Sodium Potassium Chloride Carbon Dioxide Anion Gap BUN Creatinine GFR Calculation Glucose Calculated Osmolality Lactic Acid Calcium Total Bilirubin AST ALT Alkaline Phosphatase Troponin T Baseline Troponin T 120 Minute Delta Troponin T C-Reactive Protein NT-Pro-B Natriuret Pep Total Protein Albumin Globulin Procalcitonin Serum Ketones Coronavirus 229E (PCR) Not detected (NOT DETECT) SARS-CoV-2 (PCR) Not detected (NOT DETECT) 04/14/21 04/14/21 04/14/21 05:45 05:45 05:45 WBC 24.7 10^3/uL H 10^3/uL (4.0-10.0) RBC 4.36 10^6/uL 10^6/uL (4.1-5.3) Hgb 14.4 g/dL g/dL (11.5-15.3) Hct 42.9 % % (37.0-47.0) MCV 98.4 fl fl (81-99) MCH 33.0 pg pg (28.0-34.0) MCHC 33.6 g/dL g/dL (30.0-36.0) RDW 13.2 % % (12.1-15.1) Plt Count 396 10^3/cmm 10^3/cmm (130-400) MPV 10.2 fL fL (7.4-10.4) Neut % (Auto) 91.2 % % Lymph % (Auto) 3.5 % % [place] % (Auto) 3.6 % % Eos % (Auto) 0.0 % % Baso % (Auto) 0.2 % % Neut # (Auto) 22.52 10^3/uL H 10^3/uL (1.8-7.7) Lymph # (Auto) 0.9 10^3/uL 10^3/uL (0.8-4.8) [place] # (Auto) 0.9 10^3/uL 10^3/uL (0.2-0.9) Eos # (Auto) 0.0 10^3/uL 10^3/uL (0.0-0.8) Baso # (Auto) 0.1 10^3/uL 10^3/uL (0.0-0.1) Nucleated RBC % (auto) 0 % % Nucleated RBCs # 0.0 /100WBC /100WBC D-Dimer Specimen Type Sample Site ABG pH ABG pCO2 ABG pO2 ABG HCO3 ABG Base Excess Jose L Test Hematocrit O2 Delivery Device Dispensary Technician ID Sodium 131 mmol/L L mmol/L (136-145) Potassium 3.6 mmol/L mmol/L (3.5-5.1) Chloride 88 mmol/L L mmol/L (98-107) Carbon Dioxide 15 mmol/L L mmol/L (22-29) Anion Gap 31.6 H (5-19) BUN 4 mg/dL L mg/dL (8-23) Creatinine 0.5 mg/dL mg/dL (0.5-0.9) GFR Calculation 123.1 mL/min mL/min (90-130) Glucose 214 mg/dL H mg/dL (65-115) Calculated Osmolality 275 mOsm/kg L mOsm/kg (285-295) Lactic Acid 10.7 mmol/L H* mmol/L (0.5-2.2) Calcium 8.8 mg/dL mg/dL (8.5-10.5) Total Bilirubin 0.5 mg/dL mg/dL (0.15-1.2) AST 33 U/L H U/L (0-32) ALT 30 U/L U/L (0-33) Alkaline Phosphatase 219 IU/L H IU/L (35-105) Troponin T Baseline Troponin T 120 Minute Delta Troponin T C-Reactive Protein 177.5 mg/L H mg/L (0.0-4.9) NT-Pro-B Natriuret Pep 5943 pg/mL H pg/mL (0-125) Total Protein 6.0 g/dL L g/dL (6.6-8.7) Albumin 2.4 g/dL L g/dL (3.5-5.2) Globulin 3.6 g/dL g/dL (1.3-4.6) Procalcitonin 6.32 ng/mL H ng/mL (0-0.5) Serum Ketones Coronavirus 229E (PCR) SARS-CoV-2 (PCR) 04/14/21 04/14/21 04/14/21 05:45 05:45 09:25 WBC RBC Hgb Hct MCV MCH MCHC RDW Plt Count MPV Neut % (Auto) Lymph % (Auto) [place] % (Auto) Eos % (Auto) Baso % (Auto) Neut # (Auto) Lymph # (Auto) [place] # (Auto) Eos # (Auto) Baso # (Auto) Nucleated RBC % (auto) Nucleated RBCs # D-Dimer Specimen Type Sample Site ABG pH ABG pCO2 ABG pO2 ABG HCO3 ABG Base Excess Jose L Test Hematocrit O2 Delivery Device Dispensary Technician ID Sodium Potassium Chloride Carbon Dioxide Anion Gap BUN Creatinine GFR Calculation Glucose Calculated Osmolality Lactic Acid Calcium Total Bilirubin AST ALT Alkaline Phosphatase Troponin T Baseline 17 ng/L H ng/L (0-10) Troponin T 120 Minute 19.12 ng/L H ng/L (0-10) Delta Troponin T 2.12 ABS# ABS# (0-10) C-Reactive Protein NT-Pro-B Natriuret Pep Total Protein Albumin Globulin Procalcitonin Serum Ketones Negative (Negative) Coronavirus 229E (PCR) SARS-CoV-2 (PCR) 04/14/21 09:25 WBC RBC Hgb Hct MCV MCH MCHC RDW Plt Count MPV Neut % (Auto) Lymph % (Auto) [place] % (Auto) Eos % (Auto) Baso % (Auto) Neut # (Auto) Lymph # (Auto) [place] # (Auto) Eos # (Auto) Baso # (Auto) Nucleated RBC % (auto) Nucleated RBCs # D-Dimer Specimen Type Sample Site ABG pH ABG pCO2 ABG pO2 ABG HCO3 ABG Base Excess Jose L Test Hematocrit O2 Delivery Device Dispensary Technician ID Sodium Potassium Chloride Carbon Dioxide Anion Gap BUN Creatinine GFR Calculation Glucose Calculated Osmolality Lactic Acid 8.1 mmol/L H* mmol/L (0.5-2.2) Calcium Total Bilirubin AST ALT Alkaline Phosphatase Troponin T Baseline Troponin T 120 Minute Delta Troponin T C-Reactive Protein NT-Pro-B Natriuret Pep Total Protein Albumin Globulin Procalcitonin Serum Ketones Coronavirus 229E (PCR) SARS-CoV-2 (PCR) Discharge Plan Discharge Patient Disposition: Admitted As Inpatient Admit Provider: Tian Murdock Clinical Impression: Severe sepsis, Pneumonia, Colitis, Headache Condition: Stable Sign Out Sign Out Data: Patient Sign Out occurred on 04/14/21 at 07:13. Patient's care was discussed, and care was transferred from to Brennan Blanchard MD. Coding Level of Care Code ED Snagger for Chg Fwd Exam Detailed Documented by User: Brennan Blanchard MD 04/19/21 19:24 HPI - Nausea/Vomiting/Diarrhea General: Chief complaint: Nausea/Vomiting/Diarrhea Stated complaint: N\V\Diarhea\Headache\Joint Pains Time Seen by Provider: 04/14/21 04:48 PFSH ED PFSH: Medical History Anemia C. 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, recurrent severe without psychotic features Morbid obesity Post-traumatic stress disorder, chronic Surgical History H/O esophagogastroduodenoscopy H/O: hysterectomy History of bunionectomy bilateral Hx of cholecystectomy Status post colonoscopy Family History Mother Hypertension Diabetes Father Hypertension Asthma Other CAD (coronary artery disease) Cancer Denies family history of Anesthesia complication Bleeding disorder Social History Quit status (tobacco): has tried quititng Second hand smoke exposure: Yes Smoking risk assessment/counseling performed?: No Alcohol intake: former Former alcohol use details: Reportedly has not had any alcohol since June Household members: spouse Housing: Manufactured/Mobile home Marital status: Current occupational status: retired History of recent travel: No Procedures EJ/Peripheral Line Arm R: Size (gauge): 20 IV Secured and Dressing Applied: Yes Patient Tolerated Procedure: well Additional Comments: US guided Course Vital Signs: Vital signs: Vital Signs Temperature 97.9 F 04/19/21 15:00 Pulse Rate 101 H 04/19/21 15:00 Respiratory Rate 18 04/19/21 15:00 Blood Pressure 115/58 04/19/21 15:00 Pulse Oximetry 94 04/19/21 15:00 MDM - Nausea/Vomiting/Diarrhea MDM Narrative Medical decision making narrative: Patient care handoff received CT imaging. CT notable for extensive bilateral confluent diffuse groundglass opacities as well as colitis. Antibiotics and fluid resuscitation given [id number] cc/kg ideal body weight given. Patient's current clinical status including requirement for supplemental oxygen and evidence of severe sepsis secondary to either pneumonia or colitis. Results of ED evaluation discussed with patient. Hospitalist service contacted and agreed with the patient. Patient is critically ill with severe sepsis. Brennan Blanchard MD Emergency Medicine Lab Data Result diagrams: 04/18/21 03:10 04/18/21 03:10 Labs: Lab Results 04/14/21 04/14/21 04/14/21 04:56 05:06 05:45 WBC RBC Hgb Hct MCV MCH MCHC RDW Plt Count MPV Neut % (Auto) Lymph % (Auto) [place] % (Auto) Eos % (Auto) Baso % (Auto) Neut # (Auto) Lymph # (Auto) [place] # (Auto) Eos # (Auto) Baso # (Auto) Nucleated RBC % (auto) Nucleated RBCs # D-Dimer 1.64 ug/mIFEU H ug/mIFEU (0-0.59) Specimen Type Arterial Sample Site Radial, left ABG pH 7.49 H (7.35-7.45) ABG pCO2 26.5 mmHg L mmHg (35-45) ABG pO2 46.8 mmHg L mmHg (80.0-100.0) ABG HCO3 20.0 mmol/L L mmol/L (22-26) ABG Base Excess -1.9 mmol/L mmol/L (-2.0-2.0) Jose L Test Pos Hematocrit 42.8 % % (37-47) O2 Delivery Device Nc Dispensary Technician ID Buttr Sodium Potassium Chloride Carbon Dioxide Anion Gap BUN Creatinine GFR Calculation Glucose Calculated Osmolality Lactic Acid Calcium Total Bilirubin AST ALT Alkaline Phosphatase Troponin T Baseline Troponin T 120 Minute Delta Troponin T C-Reactive Protein NT-Pro-B Natriuret Pep Total Protein Albumin Globulin Procalcitonin Serum Ketones Coronavirus 229E (PCR) Not detected (NOT DETECT) SARS-CoV-2 (PCR) Not detected (NOT DETECT) 04/14/21 04/14/21 04/14/21 05:45 05:45 05:45 WBC 24.7 10^3/uL H 10^3/uL (4.0-10.0) RBC 4.36 10^6/uL 10^6/uL (4.1-5.3) Hgb 14.4 g/dL g/dL (11.5-15.3) Hct 42.9 % % (37.0-47.0) MCV 98.4 fl fl (81-99) MCH 33.0 pg pg (28.0-34.0) MCHC 33.6 g/dL g/dL (30.0-36.0) RDW 13.2 % % (12.1-15.1) Plt Count 396 10^3/cmm 10^3/cmm (130-400) MPV 10.2 fL fL (7.4-10.4) Neut % (Auto) 91.2 % % Lymph % (Auto) 3.5 % % [place] % (Auto) 3.6 % % Eos % (Auto) 0.0 % % Baso % (Auto) 0.2 % % Neut # (Auto) 22.52 10^3/uL H 10^3/uL (1.8-7.7) Lymph # (Auto) 0.9 10^3/uL 10^3/uL (0.8-4.8) [place] # (Auto) 0.9 10^3/uL 10^3/uL (0.2-0.9) Eos # (Auto) 0.0 10^3/uL 10^3/uL (0.0-0.8) Baso # (Auto) 0.1 10^3/uL 10^3/uL (0.0-0.1) Nucleated RBC % (auto) 0 % % Nucleated RBCs # 0.0 /100WBC /100WBC D-Dimer Specimen Type Sample Site ABG pH ABG pCO2 ABG pO2 ABG HCO3 ABG Base Excess Jose L Test Hematocrit O2 Delivery Device Dispensary Technician ID Sodium 131 mmol/L L mmol/L (136-145) Potassium 3.6 mmol/L mmol/L (3.5-5.1) Chloride 88 mmol/L L mmol/L (98-107) Carbon Dioxide 15 mmol/L L mmol/L (22-29) Anion Gap 31.6 H (5-19) BUN 4 mg/dL L mg/dL (8-23) Creatinine 0.5 mg/dL mg/dL (0.5-0.9) GFR Calculation 123.1 mL/min mL/min (90-130) Glucose 214 mg/dL H mg/dL (65-115) Calculated Osmolality 275 mOsm/kg L mOsm/kg (285-295) Lactic Acid 10.7 mmol/L H* mmol/L (0.5-2.2) Calcium 8.8 mg/dL mg/dL (8.5-10.5) Total Bilirubin 0.5 mg/dL mg/dL (0.15-1.2) AST 33 U/L H U/L (0-32) ALT 30 U/L U/L (0-33) Alkaline Phosphatase 219 IU/L H IU/L (35-105) Troponin T Baseline Troponin T 120 Minute Delta Troponin T C-Reactive Protein 177.5 mg/L H mg/L (0.0-4.9) NT-Pro-B Natriuret Pep 5943 pg/mL H pg/mL (0-125) Total Protein 6.0 g/dL L g/dL (6.6-8.7) Albumin 2.4 g/dL L g/dL (3.5-5.2) Globulin 3.6 g/dL g/dL (1.3-4.6) Procalcitonin 6.32 ng/mL H ng/mL (0-0.5) Serum Ketones Coronavirus 229E (PCR) SARS-CoV-2 (PCR) 04/14/21 04/14/21 04/14/21 05:45 05:45 09:25 WBC RBC Hgb Hct MCV MCH MCHC RDW Plt Count MPV Neut % (Auto) Lymph % (Auto) [place] % (Auto) Eos % (Auto) Baso % (Auto) Neut # (Auto) Lymph # (Auto) [place] # (Auto) Eos # (Auto) Baso # (Auto) Nucleated RBC % (auto) Nucleated RBCs # D-Dimer Specimen Type Sample Site ABG pH ABG pCO2 ABG pO2 ABG HCO3 ABG Base Excess Jose L Test Hematocrit O2 Delivery Device Dispensary Technician ID Sodium Potassium Chloride Carbon Dioxide Anion Gap BUN Creatinine GFR Calculation Glucose Calculated Osmolality Lactic Acid Calcium Total Bilirubin AST ALT Alkaline Phosphatase Troponin T Baseline 17 ng/L H ng/L (0-10) Troponin T 120 Minute 19.12 ng/L H ng/L (0-10) Delta Troponin T 2.12 ABS# ABS# (0-10) C-Reactive Protein NT-Pro-B Natriuret Pep Total Protein Albumin Globulin Procalcitonin Serum Ketones Negative (Negative) Coronavirus 229E (PCR) SARS-CoV-2 (PCR) 04/14/21 09:25 WBC RBC Hgb Hct MCV MCH MCHC RDW Plt Count MPV Neut % (Auto) Lymph % (Auto) [place] % (Auto) Eos % (Auto) Baso % (Auto) Neut # (Auto) Lymph # (Auto) [place] # (Auto) Eos # (Auto) Baso # (Auto) Nucleated RBC % (auto) Nucleated RBCs # D-Dimer Specimen Type Sample Site ABG pH ABG pCO2 ABG pO2 ABG HCO3 ABG Base Excess Jose L Test Hematocrit O2 Delivery Device Dispensary Technician ID Sodium Potassium Chloride Carbon Dioxide Anion Gap BUN Creatinine GFR Calculation Glucose Calculated Osmolality Lactic Acid 8.1 mmol/L H* mmol/L (0.5-2.2) Calcium Total Bilirubin AST ALT Alkaline Phosphatase Troponin T Baseline Troponin T 120 Minute Delta Troponin T C-Reactive Protein NT-Pro-B Natriuret Pep Total Protein Albumin Globulin Procalcitonin Serum Ketones Coronavirus 229E (PCR) SARS-CoV-2 (PCR) Critical Care Time Critical Care Time: Critical Care Time: Yes Total Critical Care Time: 45 Attestation: Due to a high probability of clinically significant, possibly life threatening deterioration, the patient required my highest level of attention and preparedness to intervene emergently and I personally spent this critical care time directly and personally managing the patient. This critical care time included obtaining a history; examining the patient; pulse oximetry; ordering and review of laboratory and imaging studies; arranging urgent treatment with development of a management plan; evaluation of patient's response to treatment; frequent reassessment; and, discussions with other providers as applicable. It was exclusive of separately billable procedures. Discharge Plan Discharge Patient Disposition: Admitted As Inpatient Admit Provider: Tian Murdock Clinical Impression: Severe sepsis, Pneumonia, Colitis, Headache Condition: Stable Sign Out Sign Out Data: Patient Sign Out occurred on 04/14/21 at 07:13. Patient's care was discussed, and care was transferred from to Brennan Blanchard MD. Coding Level of Care Code ED Snagger for Chg Fwd Exam Detailed
--- NOTE | 2021-04-14 04:54 | ECG_ITS ---
[facility] Test Date: 2021-04-14 Pat Name: Ingris Mendosa Department: Room: 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 Measurements Intervals [place] Rate: 151 P: 49 SC: 121 QRS: 12 QRSD: 77 T: 69 QT: 310 QTc: 492 Interpretive Statements SINUS TACHYCARDIA, POSSIBLE ATRIAL FLUTTER NONSPECIFIC ST & T-WAVE ABNORMALITY CRITICAL TEST RESULT Compared to ECG 03/27/2021 05:41:35 T-wave abnormality now present Sinus rhythm no longer present ST (T wave) deviation no longer present Electronically Signed On 04-14-2021 20:04:11 [employer] by Quinton Vital M.D. [id number]
[2021-04-14 05:18] LABS: ABG PCO2 26.5 mmHg (35-45); ABG PH Result 7.49 (7.35-7.45); Arterial Blood Gas Hematocrit 42.8 % (37-47); Base Excess ABG -1.9 mmol/L (-2.0-2.0); Blood Gas Allen Test Pos; Blood Gas Sample Site Radial, left; Blood Gas Sample Type Arterial; Oxygen Device NC; PO2 ABG 46.8 mmHg (80.0-100.0)
[2021-04-14 05:52] LABS: Basophils # 0.1 10^3/uL (0.0-0.1); Basophils % 0.2 %; Hematocrit 42.9 % (37.0-47.0); Hemoglobin 14.4 g/dL (11.5-15.3); Lymphocytes # 0.9 10^3/uL (0.8-4.8); Lymphocytes % 3.5 %; Mean Corpuscular HGB Conc 33.6 g/dL (30.0-36.0); Mean Corpuscular Volume 98.4 fl (81-99); Mean Platelet Volume 10.2 fL (7.4-10.4); Monocytes # 0.9 10^3/uL (0.2-0.9); Monocytes % 3.6 %; Neutrophils # 22.52 10^3/uL (1.8-7.7); Neutrophils % 91.2 %; Nucleated Red Blood Cells % 0 %; Platelet Count 396 10^3/cmm (130-400); Red Blood Count 4.36 10^6/uL (4.1-5.3); Red Cell Distribution Width 13.2 % (12.1-15.1); White Blood Count 24.7 10^3/uL (4.0-10.0)
[2021-04-14] MEDS: sodium chloride 0.9% 1,000 ML 999 ML IV ×2 (06:10→07:04)
[2021-04-14] MEDS: fentaNYL 50 mcg/mL INJ 2mL 75 MCG IVP (06:11)
[2021-04-14] MEDS: ondansetron 2 mg/ML SDV 2 mL 4 MG IVP ×3 (06:11→16:03)
[2021-04-14 06:13] LABS: D Dimer 1.64 ug/mIFEU (0-0.59)
--- NOTE | 2021-04-14 06:20 | CTR_ITS ---
PROCEDURE INFORMATION: Exam: CTA Chest With Contrast Exam date and time: 04/14/2021 6:20 AM Age: 66 years old Clinical indication: Vomiting; Shortness of breath; Additional info: Hypoxia, vomiting abd distension TECHNIQUE: Imaging protocol: Computed tomographic angiography of the chest with contrast. 3D rendering (Not supervised by radiologist): MIP and/or 3D reconstructed images were created by the technologist. Radiation optimization: All CT scans at this facility use at least one of these dose optimization techniques: automated exposure control; mA and/or kV adjustment per patient size (includes targeted exams where dose is matched to clinical indication); or iterative reconstruction. Contrast material: OMNI 350; Contrast volume: 95 ml; Contrast route: INTRAVENOUS (IV); COMPARISON: CT angio chest PE protcl [id number] 12/05/2019 4:23 PM RADIATION DOSE METRICS: Total DLP (mGy-cm): 1322.8 FINDINGS: Tubes, catheters and devices: Spinal stimulator electrodes positioned at the midthoracic level. Pulmonary arteries: No visualized pulmonary embolus. Aorta: Atherosclerotic calcification thoracic aorta. Lungs: Extensive bilateral pulmonary airspace consolidations and rather diffuse confluent ground-glass opacities with numerous air bronchograms. Pleural spaces: Minimal left pleural effusion. Heart: Calcification distribution of coronary arteries. Cardiac enlargement. Right to left ventricular ratio 1.3. Lymph nodes: Mediastinal lymph nodes largest at the distal paratracheal space measures 1.7 cm. Prominent right hilar lymph node measures 1.9 cm versus focal soft tissue thickening. Air distention of the upper mediastinal esophagus. Diaphragm: Hiatal hernia with accentuation of the wall at the GE junction and distal esophagus. Bones/joints: Degenerative change of the spine. Soft tissues: See Lymph nodes finding. similar imaging pattern. (Reference: Chris) 4. Accentuation of the esophageal wall and GE junction with probable small hiatal hernia. REFERENCES: Chris Espinal, et al., Radiological Society of [place] Expert Consensus Statement on Reporting Chest CT Findings Related to COVID-19. Endorsed by the Society of Thoracic Radiology, the [place] [employer], and RSNA. Published June 15, 2019. PROCEDURE INFORMATION: Exam: CT Abdomen And Pelvis With Contrast Exam date and time: 04/14/2021 6:20 AM Age: 66 years old Clinical indication: Vomiting; Shortness of breath; Additional info: Hypoxia, vomiting abd distension TECHNIQUE: Imaging protocol: Computed tomography of the abdomen and pelvis with contrast. Radiation optimization: All CT scans at this facility use at least one of these dose optimization techniques: automated exposure control; mA and/or kV adjustment per patient size (includes targeted exams where dose is matched to clinical indication); or iterative reconstruction. Contrast material: OMNI 350; Contrast volume: 95 ml; Contrast route: INTRAVENOUS (IV); COMPARISON: CT angio chest PE protcl [id number] 12/05/2019 4:23 PM RADIATION DOSE METRICS: Total DLP (mGy-cm): 1322.8 FINDINGS: Tubes, catheters and devices: Electronic device projects over the left flank soft tissues superficially. Liver: Fatty infiltration of the liver. Gallbladder and bile ducts: Postoperative cholecystectomy. Pancreas: Normal. No ductal dilation. Spleen: Normal. No splenomegaly. Adrenal glands: Thickening or nodule left adrenal gland measures 1.7 cm. Kidneys and ureters: Cyst posterior right kidney measures 1.2 cm. Stomach and bowel: Partial fluid distended stomach. Accentuation of the gastric folds. Percutaneous gastrostomy feeding tube. Mucosal thickening, enhancement and wall thickening throughout the colon. Mucosal accentuation or wall thickening of proximal small bowel loops. Overall nonobstructive intestinal gas pattern. Appendix: No evidence of appendicitis. Intraperitoneal space: Minor abdominal mesenteric congestion. Vasculature: Dense calcification abdominal aorta. Lymph nodes: Unremarkable. No enlarged lymph nodes. Urinary bladder: Unremarkable as visualized. Reproductive: Postoperative hysterectomy. Bones/joints: Degenerative changes of both hips. Degenerative changes of the spine. Anterior subluxation L5 on S1. Soft tissues: Mild anasarca. CT/CT angio chest w abd pel w con IMPRESSION: 1. No visualized pulmonary embolus. 2. Mediastinal adenopathy could be reactive. 3. Extensive bilateral confluent diffuse ground-glass and airspace pulmonary consolidations would be moderately concerning for atypical viral pneumonia advanced although partial sparing of the periphery of the right lower lung.Commonly reported imaging features of COVID-19 pneumonia are present. Other processes such as influenza pneumonia and organizing pneumonia, as can be seen with drug toxicity and connective tissue disease, can cause a IMPRESSION: 1. Diffuse mucosal accentuation of wall thickening throughout the colon consistent with a nonspecific colitis. 2. Accentuation of the gastric folds and proximal small bowel which may reflect gastritis/enteritis. 3. Fatty infiltration of the liver. 4. Nodule left adrenal gland.No follow-up is necessary. (Reference: Talha) this finding is stable compared to prior CT of the chest with inclusion of the upper abdomen dated 12/05/2019. 5. Cyst right kidney. No follow-up is required. 6. Anasarca and mild abdominal mesenteric congestion. COMMENTS: Consistent with the [place] [employer]'s Incidental Findings Committee white paper (J Am Mallorie Radiol 2018): Any incidental renal lesion less than 1 cm or classified as too small to characterize, or any incidental cystic renal lesion characterized as simple-appearing, is likely benign. No follow-up imaging is recommended for these lesions per consensus recommendations based on imaging criteria. REFERENCES: Talha HEATON, et al. Management of Incidental Adrenal Masses: A White Paper of the ACR Incidental Findings Committee. J Am Mallorie Radiol. 2017;14(8):6592-4509.
[2021-04-14 06:22] LABS: Troponin(5th) Baseline 17 ng/L (0-10)
[2021-04-14 06:24] LABS: Lactic Sepsis W/Reflex 10.7 mmol/L (0.5-2.2)
[2021-04-14 06:31] LABS: NT Pro B Type Natriuretic Pept 5943 pg/mL (0-125); Procalcitonin 6.32 ng/mL (0-0.5)
[2021-04-14 06:43] LABS: Alanine Aminotransferase 30 U/L (0-33); Albumin Level 2.4 g/dL (3.5-5.2); Alkaline Phosphatase 219 IU/L (35-105); Aspartate Amino Transferase 33 U/L (0-32); Blood Urea Nitrogen 4 mg/dL (8-23); C Reactive Protein 177.5 mg/L (0.0-4.9); Calcium 8.8 mg/dL (8.5-10.5); Carbon Dioxide 15 mmol/L (22-29); Chloride 88 mmol/L (98-107); Globulin 3.6 g/dL (1.3-4.6); Glomerular Filtration Rate 123.1 mL/min (90-130); Glucose 214 mg/dL (65-115); Osmolality Calculated 275 mOsm/kg (285-295); Sodium 131 mmol/L (136-145); Total Bilirubin 0.5 mg/dL (0.15-1.2)
[2021-04-14] MEDS: metoprolol tartrate 1 mg/1 mL SDV 5 mL 5 MG IVP ×2 (06:52→15:54)
[2021-04-14] MEDS: piperacillin-tazobactam 4.5 GM in sodium chloride 0.9% (plus) 50 ML IV (06:53)
--- NOTE | 2021-04-14 06:54 | ECG_ITS ---
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 Measurements Intervals [place] Rate: 118 P: 45 SC: 109 QRS: 9 QRSD: 77 T: 44 QT: 341 QTc: 478 Interpretive Statements SINUS TACHYCARDIA WITH SHORT SC INTERVAL POSSIBLE LEFT ATRIAL ENLARGEMENT [-0.1mV P-WAVE IN V1/V2] POSSIBLE ANTERIOR MYOCARDIAL INFARCTION , PROBABLY OLD [30 ms Q WAVE IN V3/V4, OR R < 0.2 mV IN V4] ABNORMAL RHYTHM ECG Compared to ECG 03/27/2021 05:41:35 Short SC interval now present Myocardial infarct finding now present Sinus rhythm no longer present ST (T wave) deviation no longer present Electronically Signed On 04-14-2021 20:14:12 EMPLOYEE HEALTH NURSE by Quinton Vital M.D. [email or web address]/store/[id number]
[2021-04-14 06:56] LABS: Anion Gap 31.6 (5-19); Potassium 3.6 mmol/L (3.5-5.1)
[2021-04-14 07:02] LABS: Adenovirus Not Detected (NOT DETECT); Chlamydia Pneumoniae Not Detected (NOT DETECT); Coronavirus 229E,HKU1,NL63,OC4 Not Detected (NOT DETECT); Human Metapneumovirus Not Detected (NOT DETECT); Human Rhinovirus/Enterovirus Not Detected (NOT DETECT); Influenza A Not Detected (NOT DETECT); Influenza A H1 Not Detected (NOT DETECT); Influenza A H1-2009 Not Detected (NOT DETECT); Influenza A H3 Not Detected (NOT DETECT); Influenza B Not Detected (NOT DETECT); Mycoplasma Pneumoniae Not Detected (NOT DETECT); Parainfluenza Virus Type 1 Not Detected (NOT DETECT); Parainfluenza Virus Type 2 Not Detected (NOT DETECT); Parainfluenza Virus Type 3 Not Detected (NOT DETECT); Parainfluenza Virus Type 4 Not Detected (NOT DETECT); Respiratory Syncytial Virus A Not Detected (NOT DETECT); Respiratory Syncytial Virus B Not Detected (NOT DETECT); SARS-COV-2 Not Detected (NOT DETECT)
[2021-04-14] MEDS: metoclopramide 5 mg/mL SDV 2 mL 10 MG IVP ×2 (07:14→09:44)
[2021-04-14 07:43] LABS: Ketone (Acetest) Serum Negative (Negative)
[2021-04-14] MEDS: iohexol 350 mg/mL 100 mL Btl IV (08:11)
[2021-04-14] MEDS: sodium chloride 0.9% 500 ML 999 ML IV (08:32)
[2021-04-14] MEDS: morphine 4 mg/mL SDV 1 mL IVP (08:33)
[2021-04-14] MEDS: diphenhydrAMINE 50 mg/mL SDV 1mL 25 MG IVP (09:38)
[2021-04-14] MEDS: ketorolac 30 mg/mL INJ 15 MG IVP (09:44)
[2021-04-14] MEDS: magnesium sulfate premix 2 GM/50 ML PIGGYBACK IV (09:44)
[2021-04-14 09:55] LABS: Troponin 5 2HR 19.12 ng/L (0-10); Troponin 5 2HR Delta 2.12 ABS# (0-10)
[2021-04-14 10:00] LABS: Lactic Sepsis W/Reflex 8.1 mmol/L (0.5-2.2)
--- NOTE | 2021-04-14 10:06 | PC.NURSE ---
INFORMED DR. YATES OF LACTIC ACID OF 8.1 HE VERBALIZED UNDERSTANDING NO FURTHER ORDERS.
--- NOTE | 2021-04-14 10:38 | P.HP_ITS ---
Providers/Chief Complaint Admitting Physician: Tian Murdock MD Primary Care Provider: KATRINA Cash Chief Complaint: N\V\Diarhea\Headache\Joint Pains History of Present Illness Ingris Mendosa is a 65 year old female with extensive past medical history including C2 cervical fracture, insulin-dependent diabetes, hypertension, dyslipidemia, neuropathy, hypothyroidism, gastroparesis, chronic adrenal insufficiency, chronic hyponatremia, CHF, CKD, CVA, recent fall resulting in C- spine fracture managed conservatively who is brought by EMS to emergency room due to chief complaint of recurrent nausea vomiting. is stating that her symptoms started roughly on when she was not able to drink anything with p.o. She does have a PEG tube takes Glucerna 6 boluses of 100 mL/day, she tries to eat with her mouth now but has not been able to do so since this T . She has had more than 20 episode of emesis until her admission to the ER. has not noticed fever. Patient is stating that she is feeling extremely weak and lethargic she had diarrhea which was not bloody or dark. Her abdomen is sore because of excessive emesis. She is endorsing to aspiration episodes as well. In the ER she has been diagnosed with sepsis related to enterocolitis Bilateral patchy infiltrate on x-ray first COVID PCR is negative I have sent in second test If second PCR is negative my suspicion is high for aspiration pneumonia/ARDS Currently she is on heated high flow 65% 45 L Serum ketones negative however has high in gap with acidosis due to lactic acidemia, abdomen is soft no signs of guarding rigidity no signs of typical ischemic colitis procalcitonin is high with massive leukocytosis she has been giving broad-spectrum antibiotics, septic bolus, blood cultures obtained in the ER D-dimer is high CT abdomen pelvis was done with contrast we will get a CTA chest tomorrow morning Review of Systems Const: Reports: chills, body aches, change in appetite, fatigue and malaise Eyes: Denies: change in vision ENMT: Denies: throat pain Card: Denies: chest pain Resp: Reports: dyspnea GI: Reports: abdominal pain, nausea, vomiting and diarrhea : Denies: flank pain Musc: Denies: extremity swelling Skin/Breast: Denies: new lesions Neuro: Denies: headache(s) Psych: Reports: anxiety Endo: Denies: polyuria Jeremiah/Lymph: Denies: easy bruising All/Imm: Denies: urticaria Medications/Allergies Home Medications Medication Instructions Recorded Confirmed Last Taken Type atorvastatin 80 mg PO BEDTIME@04/09/19 04/05/21 11/10/20 History metformin 1,000 mg PO BID@02/06/20 04/05/21 04/04/21 History fludrocortisone 0.1 mg PO DAILY@03/06/20 04/05/21 04/04/21 History sodium chloride 1 g PO BID@03/06/20 04/05/21 11/10/20 History loperamide 2 mg PO BID PRN 05/21/20 04/05/21 Unknown History levothyroxine 50 mcg PO DAILY@0800 #30 tab 05/23/20 04/05/21 04/04/21 Rx gabapentin 100 mg capsule 200 mg PO BID cap 06/12/20 04/05/21 04/05/21 History methocarbamol 750 mg PO TID PRN 06/27/20 04/05/21 11/10/20 History Glucerna 1.5 Warner 1 ea FEEDING TUBE .UP TO 5 TIMES A 07/04/20 04/05/21 07/03/20 History DAY PRN insulin aspart U-100 [Novolog See Rx Instructions .ROUTE 07/14/20 04/05/21 11/10/20 Rx Flexpen U-100 Insulin] .COMPLEX #0 ml buspirone 15 mg PO BID #60 tab 07/17/20 04/05/21 04/04/21 Rx metoprolol tartrate 50 mg tablet 25 mg PO BID tab 11/06/20 04/05/21 04/04/21 History pantoprazole 40 mg tablet,delayed 40 mg PO QAM 11/06/20 04/05/21 04/04/21 History release promethazine 25 mg tablet 25 mg PO TID PRN 11/06/20 04/05/21 Unknown History prednisone 1 mg tablet 2 mg PO QAM tab 12/12/20 04/05/21 04/04/21 History duloxetine 20 mg capsule,delayed 20 mg PO BID 02/06/21 04/05/21 04/04/21 History release glimepiride 4 mg tablet 4 mg PO PRN PRN 02/11/21 04/05/21 Unknown History mirtazapine 45 mg tablet 45 mg PO BEDTIME 02/11/21 04/05/21 04/04/21 History sucralfate 1 gram tablet 1 g PO BID 02/11/21 04/05/21 Unknown History acetaminophen 650 - 975 mg PO QID PRN 04/05/21 04/05/21 Unknown History galantamine 4 mg PO BID 04/05/21 04/05/21 04/04/21 History hydrocodone-acetaminophen 1 tab PO Q12H PRN 04/05/21 04/05/21 04/05/21 07:30 History magnesium L-lactate [Magtab] 84 mg PO BID PRN 04/05/21 04/05/21 Unknown History potassium chloride 10 meq PO DAILY PRN 04/05/21 04/05/21 Unknown History tizanidine 4 mg PO TID PRN 04/05/21 04/05/21 Unknown History ondansetron HCl 4 mg PO Q6H PRN #10 tab 04/07/21 Unknown Rx Allergies Allergy/AdvReac Type Severity Reaction Status Date / Time No Known Allergies Allergy Verified 04/05/21 15:44 PFSH Acute PFSH: Medical History Anemia C. 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, recurrent severe without psychotic features Morbid obesity Post-traumatic stress disorder, chronic Surgical History H/O esophagogastroduodenoscopy H/O: hysterectomy History of bunionectomy bilateral Hx of cholecystectomy Status post colonoscopy Family History Mother Hypertension Diabetes Father Hypertension Asthma Other CAD (coronary artery disease) Cancer Denies family history of Anesthesia complication Bleeding disorder Social History Quit status (tobacco): has tried quititng Second hand smoke exposure: Yes Smoking risk assessment/counseling performed?: No Alcohol intake: former Former alcohol use details: Reportedly has not had any alcohol since June Household members: spouse Housing: Manufactured/Mobile home Marital status: Current occupational status: retired History of recent travel: No Female Reproductive History: Date of last menstrual period: 06/14/20 Vitals/I&O/Wt Last Vital Signs Temp 97.6 F 04/14/21 04:35 Pulse 89 04/14/21 10:15 Resp 19 H 04/14/21 10:15 BP 134/101 04/14/21 10:06 Pulse Ox 92 04/14/21 10:15 04/13/21 04/14/21 04/14/21 22:59 06:59 14:59 Intake Total 2049 Balance 2049 Weight last 48 hrs Weight 72.575 kg Physical Exam Narrative: EXAM NARRATIVE: Elderly female, appears stated age Currently on heated high flow, rhonchorous breathing Abdomen soft nontender, no signs of guarding rigidity or peritonitis No signs of edema of legs Clinical looks dehydrated On heated high flow Able to mention above details Nonfocal neuro exam Clinically looks dehydrated Data : 04/14/21 05:45 04/14/21 05:45 Micro: Microbiology 04/14/21 09:30 Blood Culture - Preliminary Blood SPECIMEN COLLECTED 04/14/21 05:45 Blood Culture - Preliminary Blood SPECIMEN COLLECTED A&P Assessment and plan (1) Severe sepsis: Status: Acute (2) Pneumonia: Status: Acute (3) Colitis: Status: Acute (4) Headache: Status: Acute (5) Alzheimer disease: Status: Acute (6) Lewy body dementia: Status: Acute (7) Aspiration into airway: Status: Acute (8) Generalized anxiety disorder: Status: Acute (9) Chronic hyponatremia: Status: Acute (10) Dysphagia: Status: Acute (11) Diabetic gastroparesis: Status: Acute (12) Chronic diarrhea: Status: Acute (13) Adrenal insufficiency: Status: Acute Additional A&P Information Sepsis Enterocolitis Rule out C. difficile Start vancomycin and Zosyn Continue IV fluids We will give her 500 mL bolus Adrenal insufficiency we will give her stress dose steroids for next 24 hours Chronic hyponatremia, sodium not severely low monitor for now we will give IV fluids ARDS Bilateral patchy infiltrate hypoxia related to aspiration versus COVID-19 Second PCR test is sent Currently on heated high flow Gastroparesis related to diabetes Patient has dysphagia related to CVA in the past Takes Glucerna 100 mL 6 boluses a day as per the She is also eating via her mouth We will keep her on clear liquid for now Previous history of C. difficile We will recheck Severe metabolic acidosis related to lactic acidemia Monitor for any signs of ischemic colitis No signs of peritonitis guarding or rigidity Her abdomen is soft Giving her therapeutic dose of Lovenox along IV fluids and broad-spectrum antibiotics In case of melanotic/hematochezia will inform general surgery Full code Clear liquid diet I will give her therapeutic dose of Lovenox because of high D-dimer and requ iring high oxygen concentration We will get CTA chest tomorrow as she received contrast today already for CT abdomen pelvis Attestations Medical Necessity Statement*: More than 2 midnights anticipated Time Spent in Patient Care: Greater than 35 minutes Coding Level of Care Code Acute Saddle Lining Stitcher for g Fwd Diagnoses Severe sepsis A41.9; R65.20 Pneumonia J18.9 Colitis K52.9 Headache R51.9 Alzheimer disease G30.9; F02.80 Lewy body dementia G31.83; F02.80 Aspiration into airway T17.908A Generalized anxiety disorder F41.1 Chronic hyponatremia E87.1 Dysphagia R13.10 Diabetic gastroparesis E11.43; K31.84 Chronic diarrhea K52.9 Adrenal insufficiency E27.40
--- NOTE | 2021-04-14 10:54 | ECG_ITS ---
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 Measurements Intervals [place] Rate: 136 P: 68 RI: 121 QRS: 53 QRSD: 73 T: 67 QT: 331 QTc: 498 Interpretive Statements SINUS TACHYCARDIA MODERATE ST DEPRESSION [0.05+ mV ST DEPRESSION] Compared to ECG 04/14/2021 06:44:59 ST (T wave) deviation now present Short RI interval no longer present Myocardial infarct finding no longer present Electronically Signed On 04-14-2021 20:14:36 WASH HELPER by Quinton Vital M.D. [email or web address] comprehensive health centerCAMAC Energyfulton county health center.[employer]/store/[id number]
[2021-04-14 12:43] LABS: Troponin 5 6HR 23.93 ng/L (0-10); Troponin 5 6HR Delta 6.93 ng/L (0-12)
[2021-04-14 12:49] LABS: Adenovirus Not Detected (NOT DETECT); Chlamydia Pneumoniae Not Detected (NOT DETECT); Coronavirus 229E,HKU1,NL63,OC4 Not Detected (NOT DETECT); Human Metapneumovirus Not Detected (NOT DETECT); Human Rhinovirus/Enterovirus Not Detected (NOT DETECT); Influenza A Not Detected (NOT DETECT); Influenza A H1 Not Detected (NOT DETECT); Influenza A H1-2009 Not Detected (NOT DETECT); Influenza A H3 Not Detected (NOT DETECT); Influenza B Not Detected (NOT DETECT); Mycoplasma Pneumoniae Not Detected (NOT DETECT); Parainfluenza Virus Type 1 Not Detected (NOT DETECT); Parainfluenza Virus Type 2 Not Detected (NOT DETECT); Parainfluenza Virus Type 3 Not Detected (NOT DETECT); Parainfluenza Virus Type 4 Not Detected (NOT DETECT); Respiratory Syncytial Virus A Not Detected (NOT DETECT); Respiratory Syncytial Virus B Not Detected (NOT DETECT); SARS-COV-2 Not Detected (NOT DETECT)
[2021-04-14] MEDS: sodium chloride 0.9% 500 ML IV (13:20)
[2021-04-14] MEDS: enoxaparin 80 mg/0.8 mL Syringe 70 MG SUBCUT (13:21)
[2021-04-14] MEDS: piperacillin-tazobactam 3.375 GM in sodium chloride 0.9% (plus) 50 ML IV ×2 (13:21→20:02)
[2021-04-14] MEDS: hydrocortisone 100 mg/2 mL SDV IVP (13:21)
[2021-04-14] MEDS: sodium chloride 0.9% 1,000 ML 75 ML IV (14:21)
[2021-04-14] MEDS: sucralfate 1 gm Tablet PO (17:41)
[2021-04-14] MEDS: benzonatate 100 mg Capsule 200 MG PO (19:45)
[2021-04-14] MEDS: acetaminophen 500 mg Tablet PO (20:02)
[2021-04-14] MEDS: metoprolol tartrate 1 mg/1 mL SDV 5 mL 2.5 MG IVP (20:02)
[2021-04-14] MEDS: ipratropium-albuterol 3 mL Neb INHALATION (20:05)
[2021-04-14] MEDS: metoprolol tartrate 50 mg Tablet PO (21:18)
[2021-04-14] MEDS: HYDROcodone-acetaminophen 5-325 mg Tablet 1 TAB PO (22:19)
[2021-04-14] MEDS: cloNIDine 0.1 mg Tablet PO (22:20)
[2021-04-15] VITALS (60 sets, daily range): BP systolic 110–182; BP diastolic 61–134; PULSE 92–137; RESP 19–37; TEMP 36.2–36.9; O2SAT 79–100
[2021-04-15] MEDS: hydrocortisone 100 mg/2 mL SDV IVP ×2 (00:40→11:24)
[2021-04-15] MEDS: enoxaparin 80 mg/0.8 mL Syringe 70 MG SUBCUT ×2 (00:41→12:21)
[2021-04-15] MEDS: ketorolac 10 mg Tablet PO (00:42)
[2021-04-15] MEDS: vancomycin 1,000 MG in sodium chloride 0.9% 250 ML 250 MG IV ×2 (00:43→13:08)
[2021-04-15] MEDS: morphine 4 mg/mL SDV 1 mL 2 MG IVP (02:50)
[2021-04-15] MEDS: piperacillin-tazobactam 3.375 GM in sodium chloride 0.9% (plus) 50 ML IV ×3 (02:50→19:56)
[2021-04-15 03:48] LABS: Basophils % 0.1 %; Hematocrit 31.9 % (37.0-47.0); Hemoglobin 11.1 g/dL (11.5-15.3); Lymphocytes # 1.1 10^3/uL (0.8-4.8); Lymphocytes % 5.8 %; Mean Corpuscular HGB Conc 34.8 g/dL (30.0-36.0); Mean Corpuscular Volume 94.9 fl (81-99); Monocytes # 1.1 10^3/uL (0.2-0.9); Neutrophils # 15.81 10^3/uL (1.8-7.7); Neutrophils % 86.9 %; Nucleated Red Blood Cells % 0 %; Platelet Count 357 10^3/cmm (130-400); Red Blood Count 3.36 10^6/uL (4.1-5.3); Red Cell Distribution Width 13.4 % (12.1-15.1); White Blood Count 18.2 10^3/uL (4.0-10.0)
[2021-04-15] MEDS: benzonatate 100 mg Capsule 200 MG PO ×2 (03:59→13:09)
[2021-04-15 04:02] LABS: Anion Gap 15.2 (5-19); Blood Urea Nitrogen 7 mg/dL (8-23); C Reactive Protein 134.1 mg/L (0.0-4.9); Calcium 6.9 mg/dL (8.5-10.5); Carbon Dioxide 24 mmol/L (22-29); Chloride 97 mmol/L (98-107); Glomerular Filtration Rate 99.7 mL/min (90-130); Glucose 212 mg/dL (65-115); Magnesium 1.6 mg/dL (1.7-2.3); Osmolality Calculated 280 mOsm/kg (285-295); Potassium 3.2 mmol/L (3.5-5.1); Sodium 133 mmol/L (136-145)
[2021-04-15 04:08] LABS: Lactate (Lactic Acid level) 1.6 mmol/L (0.5-2.2)
[2021-04-15 04:09] LABS: Procalcitonin 6.85 ng/mL (0-0.5)
[2021-04-15] MEDS: pantoprazole DR 40 mg Tablet PO (05:36)
[2021-04-15] MEDS: sodium chloride 0.9% 1,000 ML 75 ML IV (05:51)
[2021-04-15] MEDS: amlodipine 10 mg Tablet PO (06:07)
--- NOTE | 2021-04-15 06:19 | PC.NURSE ---
Patient remained alert and oriented throughout the night. Patient extremely restless. Complained of a headache 9/10 and 10/10 most of the night. Multiple measures taken to try and help with the headache. Patient's systolic blood pressure was high most of the night. Spoke with Dr. Daniels multiple times to address this throughout the night. Patient remains on 45L 70% heated high flow. Urine output was 400ml for the night. No bowel movements and no sputum to collect to send down to lab. Around 0200 patient's last peripheral IV was pulled out. Previously, in the night attempted to insert peripheral IV's and even with ultrasound, not able to get one placed, Dr. Daniels aware and placed a central line around 0215. 192: Spoke with Dr. Daniels in regards to patient cough and blood pressure. Orders for tessalon pearls and one time IV 2.5mg metoprolol. 2151: Spoke with Dr. Daniels in regards to patient headache and systolic blood pressure. Orders for a one time dose of clonidine 0.1mg and a one time dose of norco 5/325. 3: Spoke with Dr. Daniels, patient still complains of a severe headache. Orders for a one time dose of toradol. 5: Spoke with Dr. Daniels after central line placement in regards to continued severe headache and hypertension. Orders for 2mg IV morphine and amlodipine 10mg for 0700. 0323: Spoke with Dr. Daniels bedside. Asked if he wanted a repeat a lactic acid due to previous one. Orders for a one time lab draw for a lactic.
--- NOTE | 2021-04-15 07:39 | CT_ITS ---
WS: [id number] CT CHEST ANGIOGRAPHY WITH REFORMATS HISTORY: Sinus tachycardia and hypoxia. TECHNIQUE: Contiguous axial images are obtained through the chest during arterial injection of intrav enous contrast. Images are reconstructed to evaluate the pulmonary arteries. MIP imaging also reviewe d. All CT scans at [facility] use at least one of these dose optimization techniques: automat ed exposure control; mA and/or kV adjustment per patient size (includes targeted exams where dose is matched to clinical indication); or iterative reconstruction. CONTRAST: Omnipaque 350; 80 mL IV. DLP: 550.96 mGy.cm COMPARISON: 04/14/2021 Good opacification of the pulmonary arteries. No pulmonary embolism is identified. There are no filli ng defects. Pulmonary artery size is equal to the aorta. Very mild atherosclerotic changes within the thoracic aorta. No dissection or aneurysm. No pericardial effusion. Heart size is mildly enlarged. Progressive groundglass attenuation and increasing areas of consolidation throughout both lungs since the prior study. No pneumothorax or pneumomediastinum. Small layering LEFT pleural effusion has slig htly increased since the prior examination. Small reactive mediastinal and hilar lymph nodes. Prior cholecystectomy. Tricuspid regurgitation into the hepatic veins. Mild soft tissue anasarca. Moderate increase in thoracic kyphosis. Mild anterior wedging of T1. No retropulsion. CT/CT angio chest PE protcl [id number] IMPRESSION: 1. No pulmonary embolism. 2. Progressive groundglass attenuation with increasing areas of consolidation throughout both lungs. Most likely related to Covid 19. 3. Small LEFT pleural effusion. 4. Mildly prominent reactive lymphadenopathy. 5. Soft tissue anasarca, increased since the prior study.
[2021-04-15] MEDS: potassium chloride oral liq 20 mEq/15 mL UDC 40 MEQ PO (08:02)
[2021-04-15] MEDS: sucralfate 1 gm Tablet PO ×2 (08:03→17:24)
[2021-04-15] MEDS: duloxetine 20 mg Capsule PO (08:03)
[2021-04-15] MEDS: levothyroxine 50 mcg Tablet PO (08:03)
[2021-04-15] MEDS: BuSPIRONE 10 mg Tablet 15 MG PO ×2 (08:03→17:23)
[2021-04-15] MEDS: gabapentin 100 mg Capsule 200 MG PO ×2 (08:03→17:23)
[2021-04-15] MEDS: metoprolol tartrate 50 mg Tablet PO ×2 (08:03→19:33)
[2021-04-15] MEDS: fludrocortisone 0.1 mg Tablet PO (08:04)
[2021-04-15] MEDS: metoprolol tartrate 1 mg/1 mL SDV 5 mL 5 MG IVP (08:17)
[2021-04-15] MEDS: SUMAtriptan 25 mg Tablet PO (08:26)
[2021-04-15] MEDS: ipratropium-albuterol 3 mL Neb INHALATION ×3 (08:55→19:40)
[2021-04-15] MEDS: ondansetron 2 mg/ML SDV 2 mL 4 MG IVP (09:05)
--- NOTE | 2021-04-15 09:44 | USCV_ITS ---
Ingris Mendosa Age: 66 Gender: F : 1955 Exam Date: 04/15/2021 13:48 Ordering Phys: Tian Murdock MD Technologist: ALANA Exam Location: [facility] [place] Indication: Volume Overload. Patient with severe dyspnea on high flow O2, cannot follow breathing instructions. No hx cardiac intervention per relative. Patient has recent RIGHT femoral line insertion, exam done entirely supine as turning her is contra-indicated. BP: 144 / 91 HR: 103 Rhythm: Sinus Technical Quality: Adequate MEASUREMENTS (Male / Female) Normal Values 2D ECHO LV Diastolic Diameter PLAX 3.2 cm 4.2 - 5.9 / 3.9 - 5.3 cm LV Systolic Diameter PLAX 2.0 cm IVS Diastolic Thickness 1.3 cm 0.6 - 1.0 / 0.6 - 0.9 cm IVS Systolic Thickness 2.0 cm LVPW Diastolic Thickness 1.2 cm 0.6 - 1.0 / 0.6 - 0.9 cm LVPW Systolic Thickness 1.5 cm LVOT Diameter 1.9 cm LV Ejection Fraction 2D Teich 66.2 % LV Ejection Fraction MOD 2C 61.8 % LV Ejection Fraction 2C AL 67.4 % LA Diameter 3.5 cm LA Width 3.3 cm LA Height 3.5 cm RA Width 5.0 cm RA Height 4.7 cm Aorta at Sinotubular Diameter 2.4 cm M-MODE Aortic Annulus Diameter 2.6 cm LA Ao Ratio MM 1.3 MV E Point Septal Separation 0.3 cm DOPPLER AV Peak Velocity 98.0 cm/s LVOT Peak Velocity 74.0 cm/s AV Area Cont Eq vti 3.1 cm squared AV Area Cont Eq pk 2.2 cm squared MV Area PHT 2.9 cm squared Mitral E to A Ratio 0.7 MV E' Velocity 33.5 cm/s Mitral E to MV E' Ratio 9.4 Mitral E to LV E' Lateral Ratio 10.1 Mitral E to LV E' Septal Ratio 9.0 TR Peak Velocity 301.3 cm/s TR Peak Gradient 36.3 mmHg TV Peak E Velocity 71.0 cm/s Right Atrial Pressure 10.0 mmHg Pulmonary Artery Systolic Pressu 46.3 mmHg PV Peak Velocity 59.0 cm/s RV Acceleration Time 0.1 s RV Ejection Time 0.3 s RV AcT/ET 0.4 FINDINGS Left Ventricle Normal left ventricular size and systolic function, EF 66 %. Mild left ventricular hypertrophy. No regional wall motion abnormalities. Grade I/IV diastolic dysfunction (abnormal relaxation filling pattern), normal to mildly elevated filling pressures. Right Ventricle Mildly increased right ventricular size. Normal right ventricular systolic function. Right Atrium Mildly increased right atrial size. Left Atrium The left atrium is normal in size. Mitral Valve Trace mitral valve regurgitation. Aortic Valve No gross abnormalities noted Tricuspid Valve [id number] tricuspid valve regurgitation. Estimated pulmonary artery peak systolic pressure of 48 mmHg Pulmonic Valve Trace pulmonary valve regurgitation. Pericardium Normal pericardium without effusion. Aorta Normal ascending aorta dimension. CONCLUSIONS Normal left ventricular size and systolic function, EF 66 %. Mild left ventricular hypertrophy. No regional wall motion abnormalities. Grade I/IV diastolic dysfunction (abnormal relaxation filling pattern), normal to mildly elevated filling pressures. Mildly dilated right atrium and right ventricle. Dtrc-ch-hisccxqj tricuspid valve regurgitation. Mild pulmonary hypertension with an estimated pulmonary artery peak systolic pressure of 48 mmHg. Trace of mitral and pulmonic regurgitation There is no pericardial effusion. Technically difficult study because of the poor ultrasonic window. No previous study is available for comparison. Dr Quinton Vital MD [facility] (Electronically Signed) Final Date: 17 April 2021 05:30 S
[2021-04-15] MEDS: acetaminophen-codeine 300-30mg Tablet 1 TAB PO (09:56)
--- NOTE | 2021-04-15 10:05 | PC.CHAP ---
Pastoral Care Encounter/Spiritual Assessment Type of Contact [] Declined paunch trimmer visit [] Patient/Family/Request visit [] Outpatient visit [] Follow-up visit [] Physician referral [] Code/Alert [x] Routine visit [] Staff referral [] Actively dying [] Patient sleeping [] Family support [] [] Out of room [] Palliative care [] [x] Receiving care in room [] Pre-surgical visit [] Trauma [] Long length of stay [x] ICU visit [] Other: Relational/Emotional Strength [] Patient feels connected with others/family/visitors/staff [] Distress [] Loneliness/isolation [] Abandonment Spirituality of Patient [] Person of [place] [] Attends Adventism of their [place] [] Believes in Prayer [] Reads Bible or Hindu materials [] There are Spiritual issues to be addressed Application Chemist Interventions [x] Prayer [] Active listening [] Non-anxious presence [] Spiritual/emotional support [] Crisis/trauma care [] Spiritual counseling [] Bereavement support [] Provided bereavement packet [] Provided Bible/devotional materials [] Provided toy/stuffed animal, coloring book to patient or family member [] Provided Communion [] Anointing/[place] [] Salvation [x] Completed spiritual assessment [] Other: Impact on Illness or Injury [] Angry [] Fearful [] Anxious [] Often cries [] Exhaustion [] Unable to work [] Unable to attend confucianism [] Unable to walk/stand [] Unable to read [] Unable to drive [] Unable to eat/drink [] Unable to sleep [] Unable to be with family [] Patient intubated [] Other: Summary Time spent with patient
[2021-04-15 10:18] LABS: Influenza A Not Detected (NOT DETECT); Influenza A H1 Not Detected (NOT DETECT); Influenza A H1-2009 Not Detected (NOT DETECT); Influenza A H3 Not Detected (NOT DETECT); Influenza B Not Detected (NOT DETECT); Results from Genmark
[2021-04-15] MEDS: iohexol 350 mg/mL 100 mL Btl IV (12:04)
--- NOTE | 2021-04-15 13:39 | PM.PN ---
Subjective Subjective: Interval history: Patient is stating that she is having migraine headache this morning, requested CTA chest Which showed groundglass attenuation with increasing consolidation throughout both lungs however Covid PCR is negative Requested flu swab and echo this morning Hypomagnesemia, hypokalemia repleted Leukocytosis trending down Continue broad-spectrum antibiotics PCR nares pending Sinus tachycardia has slightly improved Currently on heated high flow 70%, 45 L 400 urine output in 12 hours positive fluid balance Vitals/I&O/Wt Last Vital Signs Temp 98.2 F 04/15/21 08:00 Pulse 101 H 04/15/21 13:28 Resp 23 H 04/15/21 13:00 BP 123/83 04/15/21 13:00 Pulse Ox 79 L 04/15/21 13:00 04/14/21 04/15/21 04/15/21 22:59 06:59 14:59 Intake Total 530 / 3630 2260.000 / 5890.000 822 / 822 Output Total 400 / 400 Balance 530 / 3630 1860.000 / 5490.000 822 / 822 Weight last 48 hrs Weight 72.575 kg Weight 72.575 kg Physical Exam Narrative: EXAM NARRATIVE: female Currently on heated high flow PEG tube in place Abdomen soft No signs of peritonitis guarding or rigidity EOMI, PERRLA Nonfocal neuro exam No acute respiratory distress S1, S2 sinus tachycardia Lower extremity no edema Magana catheter draining dilute urine 400 mL urine output in 12 hours Urinary Catheter Management^: Magana: Cath Placed During This Visit: yes Reason for Continuing Indwelling Catheter: Accurate Measurement of Urinary Output in Critically Ill Patients Urinary Catheter Date of Insertion: 04/14/21 Urinary Catheter Time of Insertion: 17:00 Data : 04/15/21 03:20 04/15/21 03:20 Micro: Microbiology 04/14/21 09:30 Blood Culture - Preliminary Blood NEGATIVE TO DATE 04/14/21 05:45 Blood Culture - Preliminary Blood NEGATIVE TO DATE A&P Assessment and plan (1) Severe sepsis: Status: Acute (2) Pneumonia: Status: Acute (3) Colitis: Status: Acute (4) Headache: Status: Acute (5) Alzheimer disease: Status: Acute (6) Lewy body dementia: Status: Acute (7) Aspiration into airway: Status: Acute (8) Generalized anxiety disorder: Status: Acute (9) Hyponatremia: Status: Acute (10) Lactic acidosis: Status: Acute (11) Diabetic gastroparesis: Status: Acute (12) Chronic diarrhea: Status: Acute (13) Adrenal insufficiency: Status: Acute (14) CKD (chronic kidney disease), stage II: Status: Acute Additional A&P Information Severe sepsis Colitis blood pressure is improved Discontinue IV fluids She is in positive fluid balance Continue vancomycin and Zosyn CT chest to rule out PE Requested flu swab and MRSA PCR C. difficile is pending Acute hypoxia related to developing ARDS Because of ARDS is stable now Viral etiology to be ruled out Covid PCR negative twice Requested flu swab MRSA PCR It could be result of aspiration She has diastolic heart failure we will check echo High BNP, will give her Bumex 2 mg IV push this morning Hypokalemia, hypomagnesemia, repleted Lactic acidemia: Improved, patient required IV fluids for volume replenishment Turn of fluids today lactic acid has improved Type 2 diabetes Patient does try to eat orally We will keep her on overall consistent carb diet Colitis/enteritis will avoid PEG tube feeding for now Patient has history of hypoglycemia in the past which was secondary to adrenal insufficiency Hypothyroidism Compensated Chronic GERD Continue Protonix Chronic adrenal insufficiency, discontinue stress dose steroids blood pressure has stabilized, I would increase her prednisone to 5 mg and continue for now Full code Attestations Medical Necessity Statement*: Continue medical management, keeping her in ICU Time Spent in Patient Care: 16 - 35 minutes Coding Level of Care Code Acute Whale Fisherman for [facility] Fwd Diagnoses Severe sepsis A41.9; R65.20 Pneumonia J18.9 Colitis K52.9 Headache R51.9 Alzheimer disease G30.9; F02.80 Lewy body dementia G31.83; F02.80 Aspiration into airway T17.908A Generalized anxiety disorder F41.1 Hyponatremia E87.1 Lactic acidosis E87.2 Diabetic gastroparesis E11.43; K31.84 Chronic diarrhea K52.9 Adrenal insufficiency E27.40 CKD (chronic kidney disease), stage II N18.2
[2021-04-15] MEDS: bumetanide 0.25 mg/mL SDV 10 mL 2 MG IVP (14:10)
[2021-04-15] MEDS: morphine 4 mg/mL SDV 1 mL IVP (18:02)
--- NOTE | 2021-04-15 18:14 | PM.ACPR ---
Acute Procedures Central Line Placement^: Right Femoral: Time out performed: Yes Patient placed on monitor/pulse ox: Yes MD prep: mask, gown and gloves Central line prep: Chlorhexidine scrub Local anesthesia used: lidocaine 1% Ultrasound used for placement: Yes Central line lumen inserted: triple Post procedure: sutured in place, good blood return, all ports aspirated, flushed, capped and sterile dressing applied Patient tolerated procedure: well and no complications Complications: none Additional comments: Critical Care time : 40 Mins The high probability of a clinically significant, sudden or life threatening deterioration of the patient's [] system(s) required my full and direct attention, intervention and personal management. The critical care time is as shown. This time is in addition to time spent performing any reported procedures but includes the following: [x] Data and vital sign review and interpretation [x] Patient assessment, examination and intervention [x] Documentation [x] Medication orders and management
--- NOTE | 2021-04-15 18:15 | PC.NURSE ---
Shift Note Frequent safety and comfort rounds continue. Orders and/or nursing care completed as indicated. Patient monitored for response to intervention and treatment(s). Education provided includes treatment plan, medications, and oxygen safety. Pt verbalizes understanding. VSS. Tachycardic at times. HHFNC in use. C/O pain throughout the day, multiple avenues of pain control explored. Will continue to monitor.
[2021-04-15] MEDS: mirtazapine 15 mg Tablet 45 MG PO (19:56)
[2021-04-15] MEDS: atorvastatin 40 mg Tablet 80 MG PO (19:57)
--- NOTE | 2021-04-15 20:20 | PC.NURSE ---
Called Dr. Zamarripa and informed of the patient continuing to be verbally abusive towards staff and also now pulling at her central lines and taking off her oxygen. Will receive orders at this time.
[2021-04-15] MEDS: dexmedeTOMIDine 0.9 % NaCL 400 MCG/100 ML PREMIX IV (20:32)
--- NOTE | 2021-04-15 22:16 | PC.NURSE ---
Pt. laying in bed very confused. Pt. is agitated and cursing staff and has kicked myself. Pt. is wanting to get up and use the bathroom even after numerous education that she cannot get out of bed due to her femoral central line and due to her high oxygen demands on heated hi flow nasal cannula. Pt. does not understand. Will continue at this time.
--- NOTE | 2021-04-15 23:13 | PC.NURSE ---
Pt. resting comfortably in bed with no complaints or needs expressed at this time.
[2021-04-16] VITALS (53 sets, daily range): BP systolic 88–202; BP diastolic 54–106; PULSE 82–115; RESP 18–45; TEMP 37.1; O2SAT 82–100
[2021-04-16] MEDS: ipratropium-albuterol 3 mL Neb INHALATION ×2 (01:10→08:07)
[2021-04-16] MEDS: vancomycin 1,000 MG in sodium chloride 0.9% 250 ML 250 MG IV ×2 (02:28→14:00)
[2021-04-16] MEDS: piperacillin-tazobactam 3.375 GM in sodium chloride 0.9% (plus) 50 ML IV ×3 (02:29→20:24)
[2021-04-16] MEDS: enoxaparin 80 mg/0.8 mL Syringe 70 MG SUBCUT ×2 (02:29→12:19)
[2021-04-16 05:28] LABS: Anion Gap 16.7 (5-19); Blood Urea Nitrogen 7 mg/dL (8-23); Calcium 7.3 mg/dL (8.5-10.5); Carbon Dioxide 25 mmol/L (22-29); Chloride 97 mmol/L (98-107); Glomerular Filtration Rate 123.1 mL/min (90-130); Glucose 223 mg/dL (65-115); Osmolality Calculated 287 mOsm/kg (285-295); Sodium 136 mmol/L (136-145)
[2021-04-16 05:40] LABS: Basophils % 0.1 %; Eosinophils % 0.2 %; Hematocrit 30.8 % (37.0-47.0); Hemoglobin 10.8 g/dL (11.5-15.3); Lymphocytes # 1.8 10^3/uL (0.8-4.8); Lymphocytes % 10.1 %; Mean Corpuscular HGB Conc 35.1 g/dL (30.0-36.0); Mean Corpuscular Hemoglobin 34.1 pg (28.0-34.0); Mean Corpuscular Volume 97.2 fl (81-99); Mean Platelet Volume 10.2 fL (7.4-10.4); Monocytes % 5.6 %; Neutrophils # 14.56 10^3/uL (1.8-7.7); Neutrophils % 82.6 %; Nucleated Red Blood Cells % 0 %; Platelet Count 333 10^3/cmm (130-400); Red Blood Count 3.17 10^6/uL (4.1-5.3); Red Cell Distribution Width 13.7 % (12.1-15.1); White Blood Count 17.6 10^3/uL (4.0-10.0)
[2021-04-16] MEDS: pantoprazole DR 40 mg Tablet PO (05:41)
[2021-04-16] MEDS: predniSONE 5 mg Tablet PO (05:41)
[2021-04-16 05:54] LABS: Potassium 2.7 mmol/L (3.5-5.1)
[2021-04-16] MEDS: potassium chloride premix 100 ML 25 MEQ IV ×2 (06:05→10:48)
[2021-04-16] MEDS: levothyroxine 50 mcg Tablet PO (08:35)
[2021-04-16] MEDS: acetaminophen 500 mg Tablet PO (08:35)
[2021-04-16] MEDS: fludrocortisone 0.1 mg Tablet PO (08:35)
[2021-04-16] MEDS: benzonatate 100 mg Capsule 200 MG PO ×2 (08:35→23:20)
[2021-04-16] MEDS: BuSPIRONE 10 mg Tablet 15 MG PO (08:37)
[2021-04-16] MEDS: gabapentin 100 mg Capsule 200 MG PO (08:38)
[2021-04-16] MEDS: metoprolol tartrate 50 mg Tablet PO ×2 (08:38→20:24)
[2021-04-16] MEDS: sucralfate 1 gm Tablet PO (08:38)
--- NOTE | 2021-04-16 08:45 | PC.NURSE ---
Administered Tylenol for headache per Dr Murdock.
[2021-04-16 08:54] LABS: Glucose Point of Care 278 mg/dL (70-110)
[2021-04-16] MEDS: magnesium sulfate premix 2 GM/50 ML PIGGYBACK IV (10:34)
--- NOTE | 2021-04-16 11:00 | PC.NURSE ---
Pt firmly but politely refused to sit in chair at bedside. Educated pt regarding risks and benefits. Dr Murdock also encouraged pt to get out of bed. Pt continued to refuse.
--- NOTE | 2021-04-16 12:20 | PM.PN ---
Subjective Subjective: Interval history: This morning patient is complaining of slight improvement in headache, Nausea and emesis improved Still on heated high flow 65%, 50 L Echo is pending 80 meq of potassium given along magnesium Leukocytosis trending down, afebrile Vitals/I&O/Wt Last Vital Signs Temp 98.8 F 04/16/21 05:00 Pulse 88 04/16/21 09:57 Resp 21 H 04/16/21 09:57 BP 131/106 04/16/21 05:00 Pulse Ox 95 04/16/21 09:57 04/15/21 04/16/21 04/16/21 22:59 06:59 14:59 Intake Total 530 / 2235.75 350 / 2585.75 400 / 400 Output Total 1800 / 1800 1400 / 3200 Balance -1270 / 435.75 -1050 / -614.25 400 / 400 Weight last 48 hrs Weight 72.575 kg Physical Exam Narrative: EXAM NARRATIVE: Patient endorsing feeling status able to follow commands Heated high flow Abdomen soft PEG tube insertion site nonsensitive no active drainage No signs of edema of legs Bilateral breath sound with rhonchi S1, S2 Urinary Catheter Management: Magana: Cath Placed During This Visit: yes Reason for Continuing Indwelling Catheter: Accurate Measurement of Urinary Output in Critically Ill Patients Urinary Catheter Date of Insertion: 04/14/21 Urinary Catheter Time of Insertion: 17:00 Data : 04/16/21 04:09 04/16/21 04:09 Micro: Microbiology 04/14/21 Unknown MRSA Culture - Final Nose 04/14/21 09:30 Blood Culture - Preliminary Blood NEGATIVE TO DATE A&P Assessment and plan (1) Severe sepsis: Status: Acute (2) Pneumonia: Status: Acute (3) Headache: Status: Acute (4) Alzheimer disease: Status: Acute (5) Aspiration into airway: Status: Acute (6) Colitis: Status: Acute (7) Lewy body dementia: Status: Acute (8) Chronic hoarseness: Status: Acute (9) Adrenal insufficiency: Status: Acute Plan Chronic adrenal insufficiency Patient's blood pressure responded very well to stress dose steroids, currently on prednisone 5 mg Sepsis related to colitis Continue Zosyn Acute hypoxia with ARDS Echo results are pending, CTA ruled out PE, aspiration versus CHF We will give her another dose of Lasix to see if we are able to wean her off oxygen Severe electrolyte imbalance: Repleted Lactic acidosis: Improved Patient is able to swallow her diet via p.o., tube feedings on hold Will request modified barium swallow before her discharge Chronic GERD: Continue Protonix Full code Consistent carb diet Attestations Medical Necessity Statement*: Transfer out of ICU, needs active monitoring for ARDS and hypoxia Coding Level of Care Code Established Pt Acute Shift Nurse Manager for Chg Fwd Patient Type Established History Problem Focused Exam Problem Focused Medical Decision Making Low Complexity Diagnoses Severe sepsis A41.9; R65.20 Pneumonia J18.9 Headache R51.9 Alzheimer disease G30.9; F02.80 Aspiration into airway T17.908A Colitis K52.9 Lewy body dementia G31.83; F02.80 Chronic hoarseness R49.0 Adrenal insufficiency E27.40 Time Spent (min) 15
[2021-04-16 12:38] LABS: Glucose Point of Care 224 mg/dL (70-110)
[2021-04-16 13:02] LABS: Vancomycin Trough 23.9 ug/mL (10-15)
--- NOTE | 2021-04-16 14:00 | PC.NURSE ---
PEG tube cleaned. and pt educated on importance of good hygienge and proper technique. Demonstrated proper technique. joked that they needed to hurry and see Dr Cantu so they think I did that. states he frequently gets asked when the last time it was cleaned. and pt both admit they don't clean it as often as they should and that it is quite a bit longer than it used to be d/t tugging. Femoral line dressing also changed. Pt tolerated both well.
--- NOTE | 2021-04-16 15:00 | PC.NURSE ---
Pt continued to refuse to get up to chair at bedside. Educated pt about benefits of lung expansion. at bedside and encouraged me to just let her be. Both polite but firm.
[2021-04-16] MEDS: bumetanide 0.25 mg/mL SDV 4 mL 1 MG IVP (16:52)
--- NOTE | 2021-04-16 20:00 | PC.NURSE ---
Pt refused to eat dinner or sit in chair at bedside. States she promises she will sit in chair tomorrow.
[2021-04-16] MEDS: atorvastatin 40 mg Tablet 80 MG PO (20:24)
[2021-04-16] MEDS: mirtazapine 15 mg Tablet 45 MG PO (20:24)
--- NOTE | 2021-04-16 20:32 | PC.NURSE ---
Voicemail left for Dr Murdock. Pt requesting meds to assist with bowel movement. Pt unsure when last BM was. None charted recently.
[2021-04-17] VITALS (64 sets, daily range): BP systolic 104–154; BP diastolic 58–115; PULSE 86–122; RESP 14–35; TEMP 36–37.1; O2SAT 77–99
[2021-04-17] MEDS: ipratropium-albuterol 3 mL Neb INHALATION ×5 (00:09→20:14)
[2021-04-17] MEDS: vancomycin 1,000 MG in sodium chloride 0.9% 250 ML 250 MG IV (01:22)
[2021-04-17] MEDS: enoxaparin 80 mg/0.8 mL Syringe 70 MG SUBCUT ×2 (01:23→12:30)
[2021-04-17] MEDS: acetaminophen 500 mg Tablet PO (02:59)
[2021-04-17] MEDS: piperacillin-tazobactam 3.375 GM in sodium chloride 0.9% (plus) 50 ML IV ×3 (02:59→19:57)
[2021-04-17 03:51] LABS: Basophils % 0.2 %; Eosinophils # 0.2 10^3/uL (0.0-0.8); Hemoglobin 9.6 g/dL (11.5-15.3); Lymphocytes # 1.1 10^3/uL (0.8-4.8); Lymphocytes % 6.2 %; Mean Corpuscular HGB Conc 34.3 g/dL (30.0-36.0); Mean Corpuscular Hemoglobin 33.6 pg (28.0-34.0); Mean Corpuscular Volume 97.9 fl (81-99); Mean Platelet Volume 10.3 fL (7.4-10.4); Monocytes # 0.6 10^3/uL (0.2-0.9); Monocytes % 3.3 %; Neutrophils # 16.14 10^3/uL (1.8-7.7); Neutrophils % 88.1 %; Nucleated Red Blood Cells % 0 %; Platelet Count 268 10^3/cmm (130-400); Red Blood Count 2.86 10^6/uL (4.1-5.3); Red Cell Distribution Width 13.8 % (12.1-15.1); White Blood Count 18.3 10^3/uL (4.0-10.0)
[2021-04-17] MEDS: morphine 4 mg/mL SDV 1 mL IVP ×4 (04:02→20:35)
[2021-04-17 04:07] LABS: Anion Gap 14.6 (5-19); Blood Urea Nitrogen 4 mg/dL (8-23); Calcium 6.6 mg/dL (8.5-10.5); Carbon Dioxide 26 mmol/L (22-29); Chloride 101 mmol/L (98-107); Glomerular Filtration Rate 159.2 mL/min (90-130); Glucose 219 mg/dL (65-115); Osmolality Calculated 292 mOsm/kg (285-295); Sodium 139 mmol/L (136-145)
[2021-04-17 04:20] LABS: Potassium 2.6 mmol/L (3.5-5.1)
[2021-04-17 04:54] LABS: ABG PH Result 7.46 (7.35-7.45); Base Excess ABG 7.7 mmol/L (-2.0-2.0); Blood Gas Allen Test Pos; Blood Gas Operator Identificat glc; Blood Gas Sample Site Radial, right; Blood Gas Sample Type Arterial; HCO3 ABG 32.5 mmol/L (22-26); Oxygen Device HAG; PO2 ABG 55.5 mmHg (80.0-100.0)
[2021-04-17] MEDS: predniSONE 5 mg Tablet PO (05:09)
[2021-04-17] MEDS: pantoprazole DR 40 mg Tablet PO (05:09)
[2021-04-17] MEDS: potassium chloride premix 100 ML 25 MEQ IV ×2 (05:10→09:59)
--- NOTE | 2021-04-17 07:00 | FL_ITS ---
WS: [id number] Modified barium swallow, 04/17/2021 Clinical Data: Oral dysphagia Comparison: None. Fluoroscopy time: 1.1 minutes. Findings: The patient exhibited premature spilling during the oral phase with minimal residue which did clear w ith swallows. In the pharyngeal phase there was a large amount of residue especially with food. Doubl e swallows cleared the residue poorly. There is a decrease in pharyngeal peristalsis. FL/FL barium swallow modifd [id number] Impression: Poor oral and pharyngeal function especially with solid food.
--- NOTE | 2021-04-17 07:07 | XR_ITS ---
WS: [id number] Portable AP upright chest, 04/17/2021 Clinical Data: hypoxia Comparison: Portable chest, 04/14/2021. Findings: The patchy pulmonary opacities have increased in the last 3 days. The heart is enlarged. N o pneumothorax is seen. The aortic arch and descending thoracic aorta show calcification and tortuosi ty. There are epidural stimulator leads over the mid thoracic vertebral bodies. Monitor leads are on the chest wall. XR/XR chest 1V portable [id number] Impression: 1. Increase in patchy bilateral ground glass opacities throughout the lungs con sistent with acute pneumonia. 2. Atherosclerosis and cardiomegaly.
[2021-04-17] MEDS: fludrocortisone 0.1 mg Tablet PO (08:00)
[2021-04-17] MEDS: BuSPIRONE 10 mg Tablet 15 MG PO ×2 (08:00→17:16)
[2021-04-17] MEDS: gabapentin 100 mg Capsule 200 MG PO ×2 (08:00→17:16)
[2021-04-17] MEDS: sucralfate 1 gm Tablet PO ×2 (08:00→17:16)
[2021-04-17] MEDS: levothyroxine 50 mcg Tablet PO (08:01)
[2021-04-17] MEDS: metoprolol tartrate 50 mg Tablet PO ×2 (08:02→20:35)
--- NOTE | 2021-04-17 10:37 | PC.CHAP ---
Pastoral Care Encounter/Spiritual Assessment Type of Contact [] Declined rn diabetes visit [] Patient/Family/Request visit [] Outpatient visit [] Follow-up visit [] Physician referral [] Code/Alert [x] Routine visit [] Staff referral [] Actively dying [] Patient sleeping [] Family support [] [] Out of room [] Palliative care [] [x] Receiving care in room [] Pre-surgical visit [] Trauma [] Long length of stay [x] ICU visit [] Other: Relational/Emotional Strength [] Patient feels connected with others/family/visitors/staff [] Distress [] Loneliness/isolation [] Abandonment Spirituality of Patient [] Person of [place] [] Attends Roman Catholic of their [place] [] Believes in Prayer [] Reads Bible or Worship materials [] There are Spiritual issues to be addressed Teacher Dancing Interventions [x] Prayer [] Active listening [] Non-anxious presence [] Spiritual/emotional support [] Crisis/trauma care [] Spiritual counseling [] Bereavement support [] Provided bereavement packet [] Provided Bible/devotional materials [] Provided toy/stuffed animal, coloring book to patient or family member [] Provided Communion [] Anointing/[place] [] Salvation [x] Completed spiritual assessment [] Other: Impact on Illness or Injury [] Angry [] Fearful [] Anxious [] Often cries [] Exhaustion [] Unable to work [] Unable to attend buddhism [] Unable to walk/stand [] Unable to read [] Unable to drive [] Unable to eat/drink [] Unable to sleep [] Unable to be with family [] Patient intubated [] Other: Summary Time spent with patient
--- NOTE | 2021-04-17 13:29 | PC.SOCIAL ---
IMM update IMM updated with patient. Verbalized an understanding. Copy Pg 2 provided. Initialled, dated, timed, and placed in chart.
--- NOTE | 2021-04-17 13:40 | PM.PN ---
Subjective Subjective: Interval history: This morning patient had modified barium swallow she is high risk for aspiration to solid food Currently on full liquid diet Her ARDS most likely secondary to aspiration pneumonia Currently on heated high flow 60% 50 L, ABG noted Started IV steroids, discontinue p.o. prednisone Blood pressure is stable Echo reviewed Preserved ejection fraction pulmonary hypertension No bowel movement, added senna S, continue Zosyn Potassium repleted Vitals/I&O/Wt Last Vital Signs Temp 98.7 F 04/17/21 07:00 Pulse 97 04/17/21 12:30 Resp 28 H 04/17/21 12:30 BP 118/88 04/17/21 12:00 Pulse Ox 92 04/17/21 12:30 04/16/21 04/17/21 04/17/21 22:59 06:59 14:59 Intake Total 290 / 810 50 / 860 1325.643 / 1325.643 Output Total 1200 / 1200 900 / 2100 Balance -910 / -390 -850 / -1240 1325.643 / 1325.643 Physical Exam Narrative: EXAM NARRATIVE: elderly female Clinically does not look fluid overloaded No signs of edema Currently on heated high flow Awake and alert Nonfocal neuro exam Abdomen soft PEG tube feed on hold Nonfocal neuro exam Urinary Catheter Management: Magana: Cath Placed During This Visit: yes Reason for Continuing Indwelling Catheter: Accurate Measurement of Urinary Output in Critically Ill Patients Urinary Catheter Date of Insertion: 04/14/21 Urinary Catheter Time of Insertion: 17:00 Data : 04/17/21 03:08 04/17/21 03:08 A&P Assessment and plan (1) Severe sepsis: Status: Acute (2) Pneumonia: Status: Acute (3) ARDS (adult respiratory distress syndrome): Status: Acute (4) Aspiration pneumonia: Status: Acute (5) Lewy body dementia: Status: Acute (6) Headache: Status: Acute (7) Colitis: Status: Acute (8) Generalized anxiety disorder: Status: Acute (9) Hypokalemia: Status: Acute (10) Diabetic gastroparesis: Status: Acute Plan ARDS related to aspiration pneumonia Barium swallow did show aspiration as well as fluid Covid antigen negative, influenza negative, MRSA PCR negative Continue Zosyn, added IV steroids, she was given diuretics in last 48 hours, Echo shows preserved ejection fraction with pulmonary hypertension Severe hypokalemia, hold diuretics today Potassium repleted Check magnesium level Sinus tachycardia PE ruled out, will check venous Doppler to rule out DVT With diuretics bilateral chest x-ray infiltrate has not improved Net positive fluid balance Continue Metroprolol tartrate for now Adrenal deficiency: Currently on 4 to cortisone, today I have discontinued prednisone and started methylprednisolone 40 mg IV every 12 Colitis: Abdominal exam is benign, no bowel movement will add senna S Glycerin suppository Continue Zosyn C. difficile negative Attestations Medical Necessity Statement*: Transfer out of ICU if needed Time Spent in Patient Care: 20mins Coding Level of Care Code Acute Automatic Tire Tester for g Fwd Diagnoses Severe sepsis A41.9; R65.20 Pneumonia J18.9 ARDS (adult respiratory distress syndrome) J80 Aspiration pneumonia J69.0 Lewy body dementia G31.83; F02.80 Headache R51.9 Colitis K52.9 Generalized anxiety disorder F41.1 Hypokalemia E87.6 Diabetic gastroparesis E11.43; K31.84
--- NOTE | 2021-04-17 13:51 | USCV_ITS ---
Ingris Mendosa Age: 66 Gender: F : 1955 Exam Date: 04/17/2021 16:58 Ordering Phys: Tian Murdock MD Technologist: CK2 Exam Location: [facility] – [place] Indication: Leg Swelling/ Sinus Tachycardia HISTORY: Leg Swelling/ Sinus Tachycardia PROCEDURES: The venous duplex Doppler examination of both lower extremities was performed in the standard fashion. The following venous structures were evaluated: common femoral vein, profunda vein, proximal portion of the greater saphenous vein, superficial femoral vein, and the popliteal vein. In addition, the posterior tibial and peroneal trunk were evaluated. FINDINGS: Normal 2-D Doppler and augmentation and compressibility throughout the lower extremity venous structures. Additional imaging through the proximal calf veins also reveals no thrombus. Limited evaluation of the greater saphenous vein is patent with no thrombus. CONCLUSIONS No DVT bilateral lower extremities. Dr. Lisbet Urbina DO (Electronically Signed) Final Date: 18 April 2021 07:32 S
[2021-04-17 16:40] LABS: Glucose Point of Care 230 mg/dL (70-110)
[2021-04-17] MEDS: sennosides-docusate Tablet 2 TAB PO (17:15)
[2021-04-17] MEDS: insulin lispro 100 unit/1 mL SUBCUT (17:16)
--- NOTE | 2021-04-17 18:06 | PC.NURSE ---
Pt sitting up in bed eating dinner. Modified barium swallow study performed. Pt placed on full liq diet. Tolerating well. AAOx4. No episodes of confusion. R femoral CVL in place. HHFNC in use. Pt desats easily but rebounds well. Magana cath in place with moderate amount of urine noted. Makes needs known. Will monitor.
[2021-04-17] MEDS: atorvastatin 40 mg Tablet 80 MG PO (19:59)
[2021-04-17] MEDS: mirtazapine 15 mg Tablet 45 MG PO (20:35)
[2021-04-17] MEDS: benzonatate 100 mg Capsule 200 MG PO (22:10)
[2021-04-18] VITALS (55 sets, daily range): BP systolic 98–179; BP diastolic 62–120; PULSE 80–110; RESP 13–32; TEMP 36.9–37; O2SAT 79–100
[2021-04-18] MEDS: enoxaparin 80 mg/0.8 mL Syringe 70 MG SUBCUT ×2 (01:13→13:39)
[2021-04-18] MEDS: piperacillin-tazobactam 3.375 GM in sodium chloride 0.9% (plus) 50 ML IV ×3 (03:09→21:58)
[2021-04-18 03:51] LABS: Basophils % 0.1 %; Hematocrit 29.8 % (37.0-47.0); Hemoglobin 10.1 g/dL (11.5-15.3); Lymphocytes # 0.6 10^3/uL (0.8-4.8); Lymphocytes % 2.8 %; Mean Corpuscular HGB Conc 33.9 g/dL (30.0-36.0); Mean Corpuscular Hemoglobin 33.4 pg (28.0-34.0); Mean Corpuscular Volume 98.7 fl (81-99); Mean Platelet Volume 10.7 fL (7.4-10.4); Monocytes # 0.5 10^3/uL (0.2-0.9); Monocytes % 2.3 %; Neutrophils # 19.11 10^3/uL (1.8-7.7); Neutrophils % 93.2 %; Nucleated Red Blood Cells % 0 %; Platelet Count 315 10^3/cmm (130-400); Red Blood Count 3.02 10^6/uL (4.1-5.3); Red Cell Distribution Width 13.9 % (12.1-15.1); White Blood Count 20.5 10^3/uL (4.0-10.0)
[2021-04-18 04:36] LABS: Anion Gap 14.1 (5-19); Blood Urea Nitrogen 5 mg/dL (8-23); Calcium 7.8 mg/dL (8.5-10.5); Carbon Dioxide 28 mmol/L (22-29); Chloride 96 mmol/L (98-107); Glomerular Filtration Rate 99.7 mL/min (90-130); Glucose 185 mg/dL (65-115); Magnesium 1.6 mg/dL (1.7-2.3); Osmolality Calculated 280 mOsm/kg (285-295); Potassium 4.1 mmol/L (3.5-5.1); Sodium 134 mmol/L (136-145)
[2021-04-18] MEDS: morphine 4 mg/mL SDV 1 mL IVP ×2 (04:49→10:51)
[2021-04-18] MEDS: pantoprazole DR 40 mg Tablet PO (05:01)
--- NOTE | 2021-04-18 05:51 | PC.NURSE ---
Shift Note Frequent safety and comfort rounds continue. Orders and/or nursing care completed as indicated. Patient monitored for response to intervention and treatment(s). Education provided includes medication. Patient verbalized understanding of teaching. Patient remains on heated high flow 40L and 60% FiO2. No wounds or skin issues noted at this time. Patient reported headaches on several occasions throughout the evening, PRN medication was administered. Magana catheter drained 300 mls of urine overnight. Will continue to monitor.
[2021-04-18 06:00] LABS: ABG PCO2 55.5 mmHg (35-45); ABG PH Result 7.39 (7.35-7.45); Base Excess ABG 7.1 mmol/L (-2.0-2.0); Blood Gas Allen Test Pos; Blood Gas Operator Identificat JB; Blood Gas Sample Site Radial, right; Blood Gas Sample Type Arterial; HCO3 ABG 33.5 mmol/L (22-26); Oxygen Device HAG; PO2 ABG 74.7 mmHg (80.0-100.0)
[2021-04-18 07:34] LABS: Glucose Point of Care 241 mg/dL (70-110)
[2021-04-18] MEDS: BuSPIRONE 10 mg Tablet 15 MG PO ×2 (07:52→16:50)
[2021-04-18] MEDS: levothyroxine 50 mcg Tablet PO (07:53)
[2021-04-18] MEDS: fludrocortisone 0.1 mg Tablet PO (07:53)
[2021-04-18] MEDS: sennosides-docusate Tablet 2 TAB PO ×2 (07:53→16:50)
[2021-04-18] MEDS: gabapentin 100 mg Capsule 200 MG PO ×2 (07:53→16:50)
[2021-04-18] MEDS: sucralfate 1 gm Tablet PO ×2 (07:54→16:50)
[2021-04-18] MEDS: potassium chloride ER 10 mEq Tablet 40 MEQ PO (07:54)
[2021-04-18] MEDS: metoprolol tartrate 50 mg Tablet PO ×2 (07:54→22:02)
[2021-04-18] MEDS: insulin lispro 100 unit/1 mL SUBCUT ×3 (07:55→16:51)
[2021-04-18] MEDS: ipratropium-albuterol 3 mL Neb INHALATION ×2 (08:30→20:07)
--- NOTE | 2021-04-18 09:57 | PC.NUTR ---
Received TF consult. Recommend consideration of Glucerna 1.2 starting @ 10 ml/hr, with flushes of 100 mls Q6H, advancing 10mls/hr Q8H as tolerated until goal rate of 35 ml/hr is reached. Details in RD assessment.
[2021-04-18 11:00] LABS: Glucose Point of Care 161 mg/dL (70-110)
[2021-04-18 16:35] LABS: Glucose Point of Care 146 mg/dL (70-110)
[2021-04-18] MEDS: lactulose oral liq 20 gm/30 mL UDC 30 GM PEG-TUBE (16:56)
--- NOTE | 2021-04-18 18:27 | PC.NURSE ---
Pt resting in bed with eyes closed. Received lactulose per orders. No results as of yet. HHFNC in use. No s/s of SOB. No s/s of pain noted at this time. Pt up to BSC multiple times today with assist x1. Dressing changed to R femoral CVL. Attempted x4 to place PIV with no success. Magana cath draining freely to BSD. Pt had some intermittent confusion this AM. No further issues. WIll monitor.
--- NOTE | 2021-04-18 20:19 | PM.PN ---
Subjective Subjective: Interval history: Persistent leukocytosis, afebrile Cultures negative Leukocytosis mild worsening secondary to use of IV steroids She had 1 bowel movement with lactulose Tube feeding to be initiated Remove right sided femoral central line Patient encouraged to get out of bed to chair Requested briefcase sewer to screen her for LTAC, is agreeable, Patient has ICU related delirium Vitals/I&O/Wt Last Vital Signs Temp 98.4 F 04/18/21 08:00 Pulse 80 04/18/21 20:06 Resp 17 04/18/21 20:06 BP 131/89 04/18/21 17:00 Pulse Ox 98 04/18/21 20:06 04/18/21 04/18/21 04/18/21 06:59 14:59 22:59 Intake Total 250 / 2157.643 1062 / 1062 290 / 1352 Output Total 300 / 575 50 / 50 650 / 700 Balance -50 / 1039.181 6409 / 1012 -360 / 652 Physical Exam Narrative: EXAM NARRATIVE: Patient laying comfortably in her bed No new focal deficit Saturating well on heated high flow, asked RT to bring her oxygen down to 50% Abdomen soft PEG tube in place No signs of edema EOMI, PERRLA ICU related delirium No audible stridor or wheezing, rhonchi at the bases S1, S2 sinus rhythm Urinary Catheter Management: Magana: Cath Placed During This Visit: yes Reason for Continuing Indwelling Catheter: Accurate Measurement of Urinary Output in Critically Ill Patients Urinary Catheter Date of Insertion: 04/14/21 Urinary Catheter Time of Insertion: 17:00 Data : 04/18/21 03:10 04/18/21 03:10 Micro: Microbiology 04/18/21 10:29 C.difficile Toxin B Gene (PCR) - Final Stool - Stool Aspirate A&P Assessment and plan (1) Hypokalemia: Status: Acute (2) Aspiration pneumonia: Status: Acute (3) Severe sepsis: Status: Acute (4) ARDS (adult respiratory distress syndrome): Status: Acute (5) Colitis: Status: Acute (6) Headache: Status: Acute (7) Lewy body dementia: Status: Acute (8) Aspiration into airway: Status: Acute (9) Alzheimer disease: Status: Acute (10) Diabetic gastroparesis: Status: Acute (11) Altered mental status: Status: Acute Qualifiers: Altered mental status type: somnolence Qualified Code(s): R40.0 - Somnolence Plan Hypoxia related to ARDS ARDS secondary to aspiration pneumonia Heated high flow, FiO2 weaned down to 50% Continue IV steroids No signs of PE Covid negative, MRSA negative, flu negative Screen for LTAC Severe sepsis related to aspiration pneumonia and colitis Leukocytosis secondary to use of IV steroids with underlying sepsis Afebrile Continue Zosyn Hypokalemia: Repleted, magnesium: Repleted today Type 2 diabetes sliding scale Hyperglycemia noted Physical deconditioning, encourage patient to get out of chair, incentive spirometry, PT evaluation, ICU related delirium, conservative management for now patient is verbally redirectable avoid antipsychotics at this point Continue liquid diet with tube feeding Full code DVT prophylaxis Lovenox discontinued every 12 hours regimen Monitor out of ICU Constipation: Resolved, C. 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
[2021-04-18] MEDS: atorvastatin 40 mg Tablet 80 MG PO (21:59)
[2021-04-18] MEDS: mirtazapine 15 mg Tablet 45 MG PO (22:00)
[2021-04-18] MEDS: ondansetron 2 mg/ML SDV 2 mL 4 MG IVP (22:45)
[2021-04-19] VITALS (16 sets, daily range): BP systolic 109–135; BP diastolic 58–81; PULSE 0–101; RESP 18–20; TEMP 36.6–36.7; O2SAT 90–98
--- NOTE | 2021-04-19 00:10 | PC.NURSE ---
Transfer Note Patient transferred to med-surg room 277-2 from ICU via bed. Handoff report given to nurse Kelly. Patient oriented to environment and equipment. Covering service notified. Orders reviewed and will continue to monitor. Family and/or national sales representative notified. All belongings were transferred with patient and placed at bedside.
[2021-04-19] MEDS: acetaminophen 500 mg Tablet PO ×2 (03:09→21:41)
[2021-04-19] MEDS: enoxaparin 80 mg/0.8 mL Syringe 70 MG SUBCUT (05:08)
[2021-04-19] MEDS: piperacillin-tazobactam 3.375 GM in sodium chloride 0.9% (plus) 50 ML IV (05:13)
[2021-04-19] MEDS: pantoprazole DR 40 mg Tablet PO (05:13)
[2021-04-19 06:49] LABS: Glucose Point of Care 136 mg/dL (70-110)
[2021-04-19] MEDS: morphine 4 mg/mL SDV 1 mL IVP (08:09)
[2021-04-19] MEDS: levothyroxine 50 mcg Tablet PO (08:09)
[2021-04-19] MEDS: ipratropium-albuterol 3 mL Neb INHALATION ×2 (08:23→14:37)
[2021-04-19] MEDS: sucralfate 1 gm Tablet PO ×2 (09:36→17:37)
[2021-04-19] MEDS: potassium chloride ER 10 mEq Tablet 40 MEQ PO (09:36)
[2021-04-19] MEDS: BuSPIRONE 10 mg Tablet 15 MG PO ×2 (09:36→17:36)
[2021-04-19] MEDS: gabapentin 100 mg Capsule 200 MG PO ×2 (09:36→17:36)
[2021-04-19] MEDS: fludrocortisone 0.1 mg Tablet PO (09:36)
[2021-04-19] MEDS: metoprolol tartrate 50 mg Tablet PO ×2 (09:41→21:41)
--- NOTE | 2021-04-19 10:19 | P.PN_ITS ---
Subjective Subjective: Interval history: This morning patient is on 4 L nasal cannula Right groin pain, central line to be removed Patient encouraged to work with PT, Vitals/I&O/Wt Last Vital Signs Temp 98.0 F 04/19/21 07:00 Pulse 85 04/19/21 08:28 Resp 20 H 04/19/21 08:23 BP 135/81 04/19/21 07:00 Pulse Ox 93 04/19/21 09:44 04/18/21 04/19/21 04/19/21 22:59 06:59 14:59 Intake Total 290 / 1352 530 / 1882 530 / 530 Output Total 650 / 700 400 / 1100 Balance -360 / 652 130 / 782 530 / 530 Physical Exam Narrative: EXAM NARRATIVE: This morning patient was on room air when I checked her pulse ox she was saturating 89%, put on 4 L nasal cannula saturating 93% Abdomen soft Right femoral central line in place No signs of ischemia of legs No signs of edema PEG tube in place Abdomen soft EOMI, PERRLA Nonfocal neuro exam Patient is awake and alert No signs of delirium Urinary Catheter Management: Magana: Cath Placed During This Visit: yes Reason for Continuing Indwelling Catheter: Assist Healing of Perineal & Sacral Wounds- Incontinent Patients Urinary Catheter Date of Insertion: 04/14/21 Urinary Catheter Time of Insertion: 17:00 Data : 04/18/21 03:10 04/18/21 03:10 Micro: Microbiology 04/14/21 09:30 Blood Culture - Final Blood NO GROWTH AFTER 5 DAYS 04/14/21 05:45 Blood Culture - Final Blood NO GROWTH AFTER 5 DAYS 04/18/21 10:29 C.difficile Toxin B Gene (PCR) - Final Stool - Stool Aspirate A&P Assessment and plan (1) Hypokalemia: Status: Acute (2) Aspiration pneumonia: Status: Acute (3) Severe sepsis: Status: Acute (4) ARDS (adult respiratory distress syndrome): Status: Acute (5) Pneumonia: Status: Acute (6) Colitis: Status: Acute (7) Headache: Status: Acute (8) Alzheimer disease: Status: Acute (9) Aspiration into airway: Status: Acute (10) Diabetic gastroparesis: Status: Acute (11) Hypothyroidism: Status: Acute Qualifiers: Hypothyroidism type: unspecified Qualified Code(s): E03.9 - Hypothyroidism, unspecified Plan ARDS related to aspiration pneumonia Heated high flow turned off this morning, currently on 4 L nasal cannula She would not qualify for LTAC anymore, After removing her right-sided femoral central line plan is to have her evaluated by PT, she might be able to go home with home health services versus intermediate Colitis: Improved patient had 1 bowel movement, constipation relieved, change IV antibiotics to p.o. Augmentin Electrolyte imbalance: Resolved Remove Magana catheter Remove central line today Dysphagia to solids, continue full liquid diet No signs of DVT No signs of PE diabetes: Sliding scale C. 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
[2021-04-19 11:15] LABS: Glucose Point of Care 284 mg/dL (70-110)
[2021-04-19] MEDS: insulin lispro 100 unit/1 mL SUBCUT ×2 (12:24→17:45)
--- NOTE | 2021-04-19 13:55 | PC.SOCIAL ---
IMM Update Pg. 2 of IMM updated. Copy provided to patient.
[2021-04-19] MEDS: morphine 10 mg/0.5 mL oral liq UD 2 MG PO ×2 (14:43→19:46)
[2021-04-19 17:17] LABS: Glucose Point of Care 244 mg/dL (70-110)
[2021-04-19] MEDS: amoxicillin-clav 875-125 mg Tablet 1 TAB PEG-TUBE (17:37)
[2021-04-19] MEDS: atorvastatin 40 mg Tablet 80 MG PO (21:40)
[2021-04-19] MEDS: mirtazapine 15 mg Tablet 45 MG PO (21:41)
[2021-04-20] VITALS (9 sets, daily range): BP systolic 100–148; BP diastolic 67–90; PULSE 0–101; RESP 16–24; TEMP 36.6–37.1; O2SAT 90–100
[2021-04-20] MEDS: morphine 10 mg/0.5 mL oral liq UD 2 MG PO (00:38)
[2021-04-20 04:23] LABS: Basophils # 0.1 10^3/uL (0.0-0.1); Basophils % 0.2 %; Eosinophils # 0.3 10^3/uL (0.0-0.8); Eosinophils % 1.3 %; Hematocrit 31.2 % (37.0-47.0); Hemoglobin 9.5 g/dL (11.5-15.3); Lymphocytes # 2.5 10^3/uL (0.8-4.8); Lymphocytes % 11.8 %; Mean Corpuscular HGB Conc 30.4 g/dL (30.0-36.0); Mean Corpuscular Hemoglobin 34.1 pg (28.0-34.0); Mean Corpuscular Volume 111.8 fl (81-99); Mean Platelet Volume 10.9 fL (7.4-10.4); Monocytes # 1.5 10^3/uL (0.2-0.9); Neutrophils # 16.58 10^3/uL (1.8-7.7); Neutrophils % 77.8 %; Nucleated Red Blood Cells % 0.1 %; Platelet Count 98 10^3/cmm (130-400); Red Blood Count 2.79 10^6/uL (4.1-5.3); Red Cell Distribution Width 14.4 % (12.1-15.1); White Blood Count 21.3 10^3/uL (4.0-10.0)
[2021-04-20] MEDS: pantoprazole DR 40 mg Tablet PO (06:28)
[2021-04-20 06:45] LABS: Glucose Point of Care 207 mg/dL (70-110)
[2021-04-20 06:45] LABS: Glucose Point of Care 133 mg/dL (70-110)
--- NOTE | 2021-04-20 07:58 | CTR_ITS ---
PROCEDURE INFORMATION: Exam: CT Chest Without Contrast; Diagnostic Exam date and time: 04/20/2021 7:58 AM Age: 66 years old Clinical indication: Other: Persistent leucocytosis TECHNIQUE: Imaging protocol: Diagnostic computed tomography of the chest without contrast. Total images: 469 Radiation optimization: All CT scans at this facility use at least one of these dose optimization techniques: automated exposure control; mA and/or kV adjustment per patient size (includes targeted exams where dose is matched to clinical indication); or iterative reconstruction. COMPARISON: CT chest [facility] [id number] 03/27/2021 5:13 AM RADIATION DOSE METRICS: Total DLP (mGy-cm): 1790.95 FINDINGS: Tubes, catheters and devices: Intraspinal nerve stimulator electrodes noted. Lungs: Bilateral extensive areas of ground-glass opacity, lung consolidation, and interstitial thickening. Improved since prior exam. Pleural spaces: There is a small left pleural effusion. Heart: Unremarkable. No cardiomegaly. No pericardial effusion. Aorta: Unremarkable. No aortic aneurysm. Other arteries: Moderate atherosclerotic disease is evident. Lymph nodes: Unremarkable. No enlarged lymph nodes. Liver: Hepatic steatosis is evident. Bones/joints: Mild degenerative changes of the right shoulder are noted. Mild degenerative changes of the left shoulder are noted. Distal left clavicular fracture unchanged. Spinal degenerative changes are evident. Soft tissues: Unremarkable. PROCEDURE INFORMATION: Exam: CT Abdomen And Pelvis Without Contrast Exam date and time: 04/20/2021 7:58 AM Age: 66 years old Clinical indication: Other: Persistent leucocytosis TECHNIQUE: Imaging protocol: Computed tomography of the abdomen and pelvis without contrast. Radiation optimization: All CT scans at this facility use at least one of these dose optimization techniques: automated exposure control; mA and/or kV adjustment per patient size (includes targeted exams where dose is matched to clinical indication); or iterative reconstruction. COMPARISON: CT chest [facility] [id number] 03/27/2021 5:13 AM RADIATION DOSE METRICS: Total DLP (mGy-cm): 1790.95 FINDINGS: Tubes, catheters and devices: A gastric feeding tube projects in satisfactory location. Liver: Hepatic steatosis is evident with areas of focal fatty sparing. Gallbladder and bile ducts: Prior cholecystectomy noted. Pancreas: There is diffuse atrophy of the pancreatic parenchyma. Spleen: Normal. No splenomegaly. Adrenal glands: Normal. No mass. Kidneys and ureters: 15 mm Right kidney cyst incompletely evaluated due to no IV contrast. Stomach and bowel: There are a few colonic diverticuli present but no evidence of diverticulitis. Appendix: No evidence of appendicitis. Intraperitoneal space: Unremarkable. No free air. No significant fluid collection. Vasculature: Incidental phleboliths noted. Moderate atherosclerotic disease is evident. Lymph nodes: Unremarkable. No enlarged lymph nodes. Urinary bladder: Unremarkable as visualized. Reproductive: Prior hysterectomy noted. Bones/joints: Moderate degenerative changes of the right hip. Mild degenerative changes in the left hip joint. L5-S1 Degenerative spondylolisthesis (grade 1) is seen with disc space height loss and degenerative changes in the facet joints. Multilevel degenerative disc disease is noted with vacuum phenomenon. Osteophytes are noted extending from the vertebrae. No acute spinal pathology is detected. Soft tissues: Unremarkable. CT/CT chest abd pel wo con IMPRESSION: 1. There is a small left pleural effusion. This finding is stable when compared to the prior exam. 2. Bilateral extensive areas of ground-glass opacity, lung consolidation, and interstitial thickening. Improved since prior exam. 3. Distal left clavicular fracture unchanged. IMPRESSION: No acute process identified.
[2021-04-20] MEDS: BuSPIRONE 10 mg Tablet 15 MG PO ×2 (09:14→17:22)
[2021-04-20] MEDS: potassium chloride ER 10 mEq Tablet 40 MEQ PO (09:14)
[2021-04-20] MEDS: gabapentin 100 mg Capsule 200 MG PO ×2 (09:14→17:22)
[2021-04-20] MEDS: predniSONE 1 mg Tablet 2 MG PO (09:14)
[2021-04-20] MEDS: levothyroxine 50 mcg Tablet PO (09:14)
[2021-04-20] MEDS: sennosides-docusate Tablet 2 TAB PO ×2 (09:14→17:22)
[2021-04-20] MEDS: amoxicillin-clav 875-125 mg Tablet 1 TAB PEG-TUBE (09:15)
[2021-04-20] MEDS: metoprolol tartrate 50 mg Tablet PO ×2 (09:15→21:16)
[2021-04-20] MEDS: fludrocortisone 0.1 mg Tablet PO (09:15)
[2021-04-20] MEDS: sucralfate 1 gm Tablet PO ×2 (09:15→17:22)
[2021-04-20] MEDS: enoxaparin 40 mg/0.4 mL Syringe SUBCUT (09:15)
--- NOTE | 2021-04-20 11:49 | PC.PT ---
Pt refused PT today due to feeling nauseated and wanting to vomit. Pt was just seen for a CT scan due to pain as well. Will reattempt tomorrow.
[2021-04-20 11:50] LABS: Glucose Point of Care 195 mg/dL (70-110)
[2021-04-20] MEDS: insulin lispro 100 unit/1 mL SUBCUT (13:31)
--- NOTE | 2021-04-20 14:37 | PM.PN ---
Subjective Subjective: Interval history: CT chest abdomen pelvis unremarkable, leukocytosis noted patient is afebrile, she is on 3 L nasal cannula She is able to get out of the bed and use the bedside commode She is awake and alert Complaining of fatigue and lethargy Vitals/I&O/Wt Last Vital Signs Temp 98.6 F 04/20/21 11:34 Pulse 89 04/20/21 11:34 Resp 18 04/20/21 11:34 BP 124/73 04/20/21 11:34 Pulse Ox 90 04/20/21 11:34 04/19/21 04/20/21 04/20/21 22:59 06:59 14:59 Intake Total 240 / 1610 500 / 500 Balance 240 / 1610 500 / 500 Physical Exam Narrative: EXAM NARRATIVE: Patient was able to get out of the bed use bedside commode Awake and alert Nonfocal neuro exam Fatigue and lethargy S1, S2 Clinically euvolemic Tube feeding to be started today 3 L nasal cannula No active resp distress Urinary Catheter Management: Magana: Cath Placed During This Visit: yes, but has since been removed by the nurse Reason for Continuing Indwelling Catheter: Other Urinary Catheter Date of Insertion: 04/14/21 Urinary Catheter Time of Insertion: 17:00 Date Urinary Catheter Removed: 04/19/21 Time Urinary Catheter Discontinued: 18:25 Data : 04/20/21 03:40 04/18/21 03:10 Micro: Microbiology 04/14/21 09:30 Blood Culture - Final Blood NO GROWTH AFTER 5 DAYS A&P Assessment and plan (1) Aspiration pneumonia: Status: Acute (2) ARDS (adult respiratory distress syndrome): Status: Acute (3) Severe sepsis: Status: Acute (4) Pneumonia: Status: Acute (5) Colitis: Status: Acute (6) Headache: Status: Acute (7) Alzheimer disease: Status: Acute (8) Aspiration into airway: Status: Acute (9) Chronic hyponatremia: Status: Acute Plan Sepsis related to aspiration pneumonia: Resolved however leukocytosis has not trending down Repeat CT chest abdomen pelvis did not show colitis signs of ARDS still present Currently on 3 L nasal cannula Leukocytosis could be due to ARDS monocytic stage Clinically patient does show signs of improvement that is why IV antibiotics were switched to Augmentin however because of worsening leukocytosis I would like to put her back on broad-spectrum IV antibiotics, MRSA PCR negative, I would use Zosyn and cefepime for now Right femoral central line removed on 04/19 Patient able to get out of bed used bedside commode She refused custodial, will arrange home with home health services once her leukocytosis started trending down Magana catheter removed as well Dysphagia to solids continue tube feeding along full liquid diet DVT prophylaxis on board Sliding scale for diabetes ICU related delirium: Improved Attestations Medical Necessity Statement*: Continue medical management Time Spent in Patient Care: 15 minutes Coding Level of Care Code Acute Aircraft Structural Fitter for g Fwd Diagnoses Aspiration pneumonia J69.0 ARDS (adult respiratory distress syndrome) J80 Severe sepsis A41.9; R65.20 Pneumonia J18.9 Colitis K52.9 Headache R51.9 Alzheimer disease G30.9; F02.80 Aspiration into airway T17.908A Chronic hyponatremia E87.1
[2021-04-20] MEDS: cefepime 1,000 MG in sodium chloride 0.9% (plus) 50 ML 100 MG IV (16:31)
--- NOTE | 2021-04-20 16:55 | PC.CHAP ---
Pastoral Care Encounter/Spiritual Assessment Type of Contact [] Declined angledozer operator visit [] Patient/Family/Request visit [] Outpatient visit [] Follow-up visit [] Physician referral [] Code/Alert [XX] Routine visit [] Staff referral [] Actively dying [XX] Patient sleeping [] Family support [] [] Out of room [] Palliative care [] [] Receiving care in room [] Pre-surgical visit [] Trauma [] Long length of stay [] ICU visit [XX] Other: visited with spouse -- see summary Relational/Emotional Strength [] Patient feels connected with others/family/visitors/staff [] Distress [] Loneliness/isolation [] Abandonment Spirituality of Patient [] Person of [place] [] Attends Mandaeism of their [place] [] Believes in Prayer [] Reads Bible or Anabaptism materials [] There are Spiritual issues to be addressed [place] Interventions [] Prayer [] Active listening [] Non-anxious presence [] Spiritual/emotional support [] Crisis/trauma care [] Spiritual counseling [] Bereavement support [] Provided bereavement packet [] Provided Bible/devotional materials [] Provided toy/stuffed animal, coloring book to patient or family member [] Provided Communion [] Anointing/[place] [] Salvation [] Completed spiritual assessment [] Other: Impact on Illness or Injury [] Angry [] Fearful [] Anxious [] Often cries [] Exhaustion [] Unable to work [] Unable to attend jew [] Unable to walk/stand [] Unable to read [] Unable to drive [] Unable to eat/drink [] Unable to sleep [] Unable to be with family [] Patient intubated [] Other: Summary: Visit was with spouse and assessment focused 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 At this time, spouse says that she is his job, and he is doing okay. [place] reminded him that there are caregiver supports and resources if he ever feels like he needs a break. (Pt has dementia and multiple health needs). Time spent with patient: 10 mins
[2021-04-20 17:13] LABS: Glucose Point of Care 77 mg/dL (70-110)
[2021-04-20] MEDS: piperacillin-tazobactam 3.375 GM in sodium chloride 0.9% (plus) 50 ML IV ×2 (17:22→23:49)
--- NOTE | 2021-04-20 19:51 | PC.NURSE ---
Shift report received from Vanita ARBOLEDA. Patient sitting up on side of bed. Requesting help to BSC. 3L NC. IV patent infusing antibiotic at this time. Bed alarm on for safety and fall prevention.
[2021-04-20 20:48] LABS: Glucose Point of Care 198 mg/dL (70-110)
[2021-04-20] MEDS: mirtazapine 15 mg Tablet 45 MG PO (21:16)
[2021-04-20] MEDS: atorvastatin 40 mg Tablet 80 MG PO (21:16)
[2021-04-21] VITALS (8 sets, daily range): BP systolic 117–142; BP diastolic 68–82; PULSE 77–105; RESP 16–24; TEMP 36.3–36.7; O2SAT 91–97
[2021-04-21] MEDS: morphine 10 mg/0.5 mL oral liq UD 2 MG PO (01:29)
[2021-04-21] MEDS: cefepime 1,000 MG in sodium chloride 0.9% (plus) 50 ML 100 MG IV ×2 (04:00→16:21)
[2021-04-21] MEDS: pantoprazole DR 40 mg Tablet PO (06:25)
[2021-04-21 06:39] LABS: Glucose Point of Care 209 mg/dL (70-110)
[2021-04-21] MEDS: gabapentin 100 mg Capsule 200 MG PO ×2 (09:20→18:29)
[2021-04-21] MEDS: levothyroxine 50 mcg Tablet PO (09:20)
[2021-04-21] MEDS: predniSONE 1 mg Tablet 2 MG PO (09:20)
[2021-04-21] MEDS: piperacillin-tazobactam 3.375 GM in sodium chloride 0.9% (plus) 50 ML IV ×2 (09:20→17:19)
[2021-04-21] MEDS: fludrocortisone 0.1 mg Tablet PO (09:20)
[2021-04-21] MEDS: metoprolol tartrate 50 mg Tablet PO ×2 (09:20→21:26)
[2021-04-21] MEDS: sucralfate 1 gm Tablet PO ×2 (09:21→18:29)
[2021-04-21] MEDS: BuSPIRONE 10 mg Tablet 15 MG PO ×2 (09:21→18:29)
[2021-04-21] MEDS: potassium chloride ER 10 mEq Tablet 40 MEQ PO (09:21)
[2021-04-21] MEDS: sennosides-docusate Tablet 2 TAB PO ×2 (09:21→18:29)
[2021-04-21] MEDS: insulin lispro 100 unit/1 mL SUBCUT ×3 (09:21→18:29)
[2021-04-21] MEDS: enoxaparin 40 mg/0.4 mL Syringe SUBCUT (09:22)
[2021-04-21] MEDS: acetaminophen 500 mg Tablet PO (10:39)
[2021-04-21 11:49] LABS: Glucose Point of Care 197 mg/dL (70-110)
--- NOTE | 2021-04-21 13:04 | P.PN_ITS ---
Subjective Subjective: Interval history: No labs from today however patient has remained afebrile, able to use bedside commode She is feeling fatigued and lethargic, needs a lot of motivation to get out of bed Still on 3 L of nasal cannula Awake and alert Vitals/I&O/Wt Last Vital Signs Temp 98.1 F 04/21/21 11:56 Pulse 95 04/21/21 11:56 Resp 16 04/21/21 11:56 BP 131/80 04/21/21 11:56 Pulse Ox 95 04/21/21 11:56 04/20/21 04/21/21 04/21/21 22:59 06:59 14:59 Intake Total 680 / 1280 810 / 2090 535 / 535 Output Total 800 / 800 Balance -120 / 480 810 / 1290 535 / 535 Physical Exam Narrative: EXAM NARRATIVE: Patient was ruled out in her bed 3 L nasal cannula EOMI, PERRLA Nonfocal neuro exam Abdomen soft Nonlabored breathing No signs of edema No audible stridor or wheezing S1, S2 variable Urinary Catheter Management: Magana: Cath Placed During This Visit: yes, but has since been removed by the nurse Reason for Continuing Indwelling Catheter: Other Urinary Catheter Date of Insertion: 04/14/21 Urinary Catheter Time of Insertion: 17:00 Date Urinary Catheter Removed: 04/19/21 Time Urinary Catheter Discontinued: 18:25 Data : 04/20/21 03:40 04/18/21 03:10 A&P Assessment and plan (1) Aspiration pneumonia: Status: Acute (2) ARDS (adult respiratory distress syndrome): Status: Acute (3) Severe sepsis: Status: Acute (4) Pneumonia: Status: Acute (5) Colitis: Status: Acute (6) Headache: Status: Acute (7) Lewy body dementia: Status: Acute (8) Alzheimer disease: Status: Acute Plan Aspiration pneumonia related ARDS Currently on 3 L LR Nonlabored breathing There are no labs from today History of chronic adrenal insufficiency continue prednisone 2 mg Type 2 diabetes normal blood sugar Generalized fatigue and lethargy needs a lot of motivation to get out of bed, she refused fpc placement Plan to discharge once leukocytosis started trending down I escalated her antibiotics on 04/20 MRSA PCR is negative currently on double antipseudomonal coverage Colitis: Resolved Attestations Medical Necessity Statement*: Continue medical management Time Spent in Patient Care: 15 Discharge home when leukocytosis started trending down Coding Level of Care Code Acute Post Hole Digger for g Fwd Diagnoses Aspiration pneumonia J69.0 ARDS (adult respiratory distress syndrome) J80 Severe sepsis A41.9; R65.20 Pneumonia J18.9 Colitis K52.9 Headache R51.9 Lewy body dementia G31.83; F02.80 Alzheimer disease G30.9; F02.80
--- NOTE | 2021-04-21 15:52 | PC.SOCIAL ---
IMM Updated Updated pt's on IMM. No questions voiced. Provided pt a copy. Initialed, dated, & timed copy in chart.
[2021-04-21 17:01] LABS: Glucose Point of Care 154 mg/dL (70-110)
--- NOTE | 2021-04-21 19:47 | PC.NURSE ---
Shift report received from Yana ARBOLEDA. Patient in bed hollering for something to drink / fresh ice water at bedside. Denies pain. No s/s of pain or discomfort. IV patent infusing antibiotic. O2 3L NC. No other needs noted at this time.
[2021-04-21 21:14] LABS: Glucose Point of Care 196 mg/dL (70-110)
[2021-04-21] MEDS: atorvastatin 40 mg Tablet 80 MG PO (21:21)
[2021-04-21] MEDS: mirtazapine 15 mg Tablet 45 MG PO (21:21)
[2021-04-22] VITALS (7 sets, daily range): BP systolic 128–160; BP diastolic 79–83; PULSE 89–104; RESP 18–24; TEMP 36.6–36.9; O2SAT 93–99
[2021-04-22] MEDS: piperacillin-tazobactam 3.375 GM in sodium chloride 0.9% (plus) 50 ML IV ×2 (00:02→08:03)
--- NOTE | 2021-04-22 03:10 | PC.NURSE ---
Patient got up from BSC without using call light /that was in reach/ had BM on floor/bed/and herself. Bed/gown changed at this time. Education provided to use call light prior to getting up/ will need reinforcement/re education on using call light
[2021-04-22] MEDS: cefepime 1,000 MG in sodium chloride 0.9% (plus) 50 ML 100 MG IV (04:05)
[2021-04-22] MEDS: pantoprazole DR 40 mg Tablet PO (06:38)
[2021-04-22 06:45] LABS: Glucose Point of Care 183 mg/dL (70-110)
[2021-04-22 07:20] LABS: Basophils % 0.1 %; Eosinophils # 0.2 10^3/uL (0.0-0.8); Hematocrit 22.2 % (37.0-47.0); Hemoglobin 7.4 g/dL (11.5-15.3); Lymphocytes # 1.8 10^3/uL (0.8-4.8); Lymphocytes % 11.4 %; Mean Corpuscular HGB Conc 33.3 g/dL (30.0-36.0); Mean Corpuscular Hemoglobin 32.7 pg (28.0-34.0); Mean Corpuscular Volume 98.2 fl (81-99); Mean Platelet Volume 10.5 fL (7.4-10.4); Monocytes # 1.5 10^3/uL (0.2-0.9); Monocytes % 9.1 %; Neutrophils # 12.31 10^3/uL (1.8-7.7); Neutrophils % 76.8 %; Nucleated Red Blood Cells % 0 %; Platelet Count 428 10^3/cmm (130-400); Red Blood Count 2.26 10^6/uL (4.1-5.3); Red Cell Distribution Width 14.6 % (12.1-15.1)
[2021-04-22] MEDS: fludrocortisone 0.1 mg Tablet PO (10:38)
[2021-04-22] MEDS: gabapentin 100 mg Capsule 200 MG PO (10:38)
[2021-04-22] MEDS: BuSPIRONE 10 mg Tablet 15 MG PO (10:39)
[2021-04-22] MEDS: metoprolol tartrate 50 mg Tablet PO (10:40)
[2021-04-22] MEDS: sennosides-docusate Tablet 2 TAB PO (10:40)
[2021-04-22] MEDS: sucralfate 1 gm Tablet PO (10:40)
[2021-04-22] MEDS: levothyroxine 50 mcg Tablet PO (10:40)
[2021-04-22] MEDS: potassium chloride ER 10 mEq Tablet 40 MEQ PO (10:40)
[2021-04-22] MEDS: enoxaparin 40 mg/0.4 mL Syringe SUBCUT (10:41)
[2021-04-22] MEDS: insulin lispro 100 unit/1 mL SUBCUT ×2 (10:41→14:27)
[2021-04-22] MEDS: predniSONE 1 mg Tablet 2 MG PO (10:42)
--- NOTE | 2021-04-22 11:37 | P.DS_ITS ---
Discharge Providers Date of Admission: 04/14/21 09:44 Date of Discharge: April 22, 2021 Attending Provider at Admission: Tian Murdock MD Attending Provider at Discharge: Tian Murdock MD Primary Care Provider: KATRINA Cash Diagnoses at Discharge Discharge Diagnosis (1) Aspiration pneumonia: Status: Acute (2) ARDS (adult respiratory distress syndrome): Status: Acute (3) Severe sepsis: Status: Acute (4) Pneumonia: Status: Acute (5) Colitis: Status: Acute (6) Headache: Status: Acute (7) Lewy body dementia: Status: Acute (8) Alzheimer disease: Status: Acute Reason for Visit Reason for Visit: N\V\Diarhea\Headache\Joint Pains Hospital Course Hospital Course Patient was admitted on 04/14 for management of sepsis related to enterocolitis and bilateral infiltrates, Covid PCR was done twice which came back negative, modified barium swallow revealed aspiration to solid food, she was recommended liquid diet only, she spent few days in the ICU and required heated high flow, she had persistent leukocytosis, MRSA PCR negative, blood cultures negative, flu panel negative, echo revealed preserved ejection fraction, she was given stress dose steroids as well for her hypotension initially only for 24 hours, at baseline she takes prednisone 2 mg for her chronic adrenal insufficiency, she was treated for aspiration related ARDS. She was kept on Zosyn for her enterocolitis, C. difficile panel negative. She was kept on therapeutic dose of Lovenox for requiring higher oxygen concentration which was transitioned down to DVT prophylactic regimen. Her symptoms gradually improved, her leukocytosis improved as well, she remained afebrile, cultures remain sterile. Patient refused senior living placement and wanted to go home on 04/22, tube feeds were resumed during her hospitalization, she did not experience recurrent nausea or vomiting. She does have history of diabetic gastroparesis. She takes Glucerna 100 mL 6 boluses a day is her caregiver, she is full code At the time of discharge she was given Augmentin and Levaquin, home O2 evaluation requested before discharge Physical Exam Narrative: EXAM NARRATIVE: Patient was supine in her bed, comfortable on 3 L nasal cannula EOMI, PERRLA Nonfocal neuro exam Abdomen soft Nonlabored breathing No signs of edema No audible stridor or wheezing S1, S2 variable Urinary Catheter Management: Magana: Cath Placed During This Visit: yes, but has since been removed by the nurse Reason for Continuing Indwelling Catheter: Other Urinary Catheter Date of Insertion: 04/14/21 Urinary Catheter Time of Insertion: 17:00 Date Urinary Catheter Removed: 04/19/21 Time Urinary Catheter Discontinued: 18:25 Discharge Data Studies Completed and Pending Completed Studies During Hospitalization Category Date Time Status CT angio chest PE protcl [id number] Routine Cat Scan 04/15/21 07:[address] angio chest w abd pel w con Urgent Cat Scan 04/14/21 06:[address] chest abdomen pelvis [CT chest abd pel wo con] Cat Scan 04/20/21 07:58 Completed Routine Modified barium swallow [FL barium swallow modifd [id number] Exams 04/17/21 07:00 Completed ] Routine XR chest 1V portable [id number] Routine Exams 04/17/21 07:07 Completed XR chest 1V portable [id number] Stat Exams 04/14/21 04:52 [place] [id number] Routine Ultrasound 04/17/21 13:51 Completed CV. echo complete* [id number] Routine Ultrasound 04/15/21 09:44 Completed Pending at discharge Category Date Time Status Sputum Culture and Gram Stain Routine Lab 04/14/21 15:54 Uncollected Urinalysis Routine Lab 04/20/21 07:57 Uncollected Radiology Impressions Chest CTA 04/15/21 07:39 IMPRESSION: 1. No pulmonary embolism. 2. Progressive groundglass attenuation with increasing areas of consolidation throughout both lungs. Most likely related to Covid 19. 3. Small LEFT pleural effusion. 4. Mildly prominent reactive lymphadenopathy. 5. Soft tissue anasarca, increased since the prior study. Modified Barium Swallow 04/17/21 07:00 Impression: Poor oral and pharyngeal function especially with solid food. Chest X-Ray 04/17/21 07:07 Impression: 1. Increase in patchy bilateral ground glass opacities throughout the lungs consistent with acute pneumonia. 2. Atherosclerosis and cardiomegaly. Chest/Abdomen/Pelvis CT 04/20/21 07:58 IMPRESSION: 1. There is a small left pleural effusion. This finding is stable when compared to the prior exam. 2. Bilateral extensive areas of ground-glass opacity, lung consolidation, and interstitial thickening. Improved since prior exam. 3. Distal left clavicular fracture unchanged. IMPRESSION: No acute process identified. Laboratory Results WBC 16.0 10^3/uL (4.0-10.0) H 04/22/21 07:13 RBC 2.26 10^6/uL (4.1-5.3) L 04/22/21 07:13 Hgb 7.4 g/dL (11.5-15.3) L 04/22/21 07:13 Hct 22.2 % (37.0-47.0) L 04/22/21 07:13 MCV 98.2 fl (81-99) 04/22/21 07:13 MCH 32.7 pg (28.0-34.0) 04/22/21 07:13 MCHC 33.3 g/dL (30.0-36.0) 04/22/21 07:13 RDW 14.6 % (12.1-15.1) 04/22/21 07:13 Plt Count 428 10^3/cmm (130-400) H 04/22/21 07:13 MPV 10.5 fL (7.4-10.4) H 04/22/21 07:13 Neut % (Auto) 76.8 % 04/22/21 07:13 Lymph % (Auto) 11.4 % 04/22/21 07:13 Jenkins % (Auto) 9.1 % 04/22/21 07:13 Eos % (Auto) 1.0 % 04/22/21 07:13 Baso % (Auto) 0.1 % 04/22/21 07:13 Neut # (Auto) 12.31 10^3/uL (1.8-7.7) H 04/22/21 07:13 Lymph # (Auto) 1.8 10^3/uL (0.8-4.8) 04/22/21 07:13 Jenkins # (Auto) 1.5 10^3/uL (0.2-0.9) H 04/22/21 07:13 Eos # (Auto) 0.2 10^3/uL (0.0-0.8) 04/22/21 07:13 Baso # (Auto) 0.0 10^3/uL (0.0-0.1) 04/22/21 07:13 Nucleated RBC % (auto) 0 % 04/22/21 07:13 Nucleated RBCs # 0.0 /100WBC 04/22/21 07:13 D-Dimer 1.64 ug/mIFEU (0-0.59) H 04/14/21 05:45 Specimen Type Arterial 04/18/21 05:37 Sample Site Radial, right 04/18/21 05:37 ABG pH 7.39 (7.35-7.45) 04/18/21 05:37 ABG pCO2 55.5 mmHg (35-45) H 04/18/21 05:37 ABG pO2 74.7 mmHg (80.0-100.0) L 04/18/21 05:37 ABG HCO3 33.5 mmol/L (22-26) H 04/18/21 05:37 ABG Base Excess 7.1 mmol/L (-2.0-2.0) H 04/18/21 05:37 Jose L Test Pos 04/18/21 05:37 Hematocrit 37.0 % (37-47) 04/18/21 05:37 O2 Delivery Device Hag 04/18/21 05:37 O2 Liters/Min 40.0 % 04/18/21 05:37 FiO2 60.0 % 04/18/21 05:37 Bonding Supervisor ID Roland 04/18/21 05:37 Sodium Cancelled 04/20/21 03:40 Potassium Cancelled 04/20/21 03:40 Chloride Cancelled 04/20/21 03:40 Carbon Dioxide Cancelled 04/20/21 03:40 Anion Gap Cancelled 04/20/21 03:40 BUN Cancelled 04/20/21 03:40 Creatinine Cancelled 04/20/21 03:40 GFR Calculation Cancelled 04/20/21 03:40 Glucose Cancelled 04/20/21 03:40 POC Glucose 183 mg/dL (70-110) H 04/22/21 06:36 Calculated Osmolality Cancelled 04/20/21 03:40 Lactic Acid 8.1 mmol/L (0.5-2.2) H* 04/14/21 09:25 Lactate 1.6 mmol/L (0.5-2.2) 04/15/21 03:20 Calcium Cancelled 04/20/21 03:40 Magnesium Cancelled 04/20/21 03:40 Total Bilirubin 0.5 mg/dL (0.15-1.2) 04/14/21 05:45 AST 33 U/L (0-32) H 04/14/21 05:45 ALT 30 U/L (0-33) 04/14/21 05:45 Alkaline Phosphatase 219 IU/L (35-105) H 04/14/21 05:45 Troponin T Baseline 17 ng/L (0-10) H 04/14/21 05:45 Troponin T 120 Minute 19.12 ng/L (0-10) H 04/14/21 09:25 Delta Troponin T 2.12 ABS# (0-10) 04/14/21 09:25 Troponin T Hi Sens 6Hr 23.93 ng/L (0-10) H 04/14/21 12:00 Troponin T Hi Sens 6Hr Delta 6.93 ng/L (0-12) 04/14/21 12:00 C-Reactive Protein 134.1 mg/L (0.0-4.9) H 04/15/21 03:20 NT-Pro-B Natriuret Pep 5943 pg/mL (0-125) H 04/14/21 05:45 Total Protein 6.0 g/dL (6.6-8.7) L 04/14/21 05:45 Albumin 2.4 g/dL (3.5-5.2) L 04/14/21 05:45 Globulin 3.6 g/dL (1.3-4.6) 04/14/21 05:45 Procalcitonin 6.85 ng/mL (0-0.5) H 04/15/21 03:20 Nasal Influ A H1 2009 PCR Not detected (NOT DETECT) 04/14/21 10:50 Vancomycin Trough 23.9 ug/mL (10-15) H 04/16/21 12:30 Serum Ketones Negative (Negative) 04/14/21 05:45 Coronavirus 229E (PCR) Not detected (NOT DETECT) 04/14/21 10:50 Influenza A (H1) PCR Not detected (NOT DETECT) 04/14/21 10:50 Influenza A (H3) PCR Not detected (NOT DETECT) 04/14/21 10:50 Influenza Type A Ag Cancelled 04/15/21 09:59 Influenza Type A (PCR) Not detected (NOT DETECT) 04/14/21 10:50 Influenza Type B Ag Cancelled 04/15/21 09:59 Influenza Type B (PCR) Not detected (NOT DETECT) 04/14/21 10:50 SARS-CoV-2 (PCR) Not detected (NOT DETECT) 04/14/21 10:50 Vitals Last Vital Signs Temp 98.1 F 04/22/21 08:00 Pulse 104 H 04/22/21 09:26 Resp 18 04/22/21 09:26 BP 160/79 04/22/21 08:00 Pulse Ox 98 04/22/21 09:26 Discharge Plan Discharge Patient Disposition: Home Condition: Stable Prescriptions: New Augmentin 875-125 mg tablet 1 tab PO BID Qty: 14 0RF levofloxacin 750 mg tablet 750 mg PO DAILY 7 Days Qty: 7 0RF Continued gabapentin 100 mg capsule 200 mg PO BID 0RF promethazine 25 mg tablet 25 mg PO TID PRN (Reason: Nausea) 0RF pantoprazole 40 mg tablet,delayed release (DR/EC) 40 mg PO QAM 0RF metoprolol tartrate 50 mg tablet 25 mg PO BID 0RF duloxetine 20 mg capsule,delayed release(DR/EC) 20 mg PO BID 0RF glimepiride 4 mg tablet 4 mg PO PRN PRN (Reason: blood sugar) 0RF sucralfate 1 gram tablet 1 g PO BID 0RF mirtazapine 45 mg tablet 45 mg PO BEDTIME 0RF atorvastatin 80 mg Tablet 80 mg PO BEDTIME@20 0RF Glucerna 1.5 Warner 0.08-1.5 gram-kcal/mL Liquid 1 ea feeding tube .UP TO 5 TIMES A DAY PRN (Reason: malnutrition) 0RF buspirone 15 mg tablet 15 mg PO BID Qty: 60 0RF hydrocodone-acetaminophen 5-325 mg tablet 1 tab PO Q12H PRN (Reason: Pain) 0RF acetaminophen 325 mg tablet 650 - 975 mg PO QID PRN (Reason: Pain) 0RF galantamine 4 mg tablet 4 mg PO BID 0RF Rx Instructions: administer with AM and PM meals magnesium L-lactate [Magtab] 84 mg tablet extended release 84 mg PO BID 0RF tizanidine 4 mg tablet 4 mg PO TID PRN (Reason: Muscle Spasm) 0RF potassium chloride 20 mEq Tablet Extended Release 10 meq PO DAILY PRN (Reason: potassium deficiency ) 0RF ondansetron HCl 4 mg Tablet 4 mg PO Q6H PRN (Reason: Nausea And Vomiting) Qty: 10 0RF metformin 1,000 mg Tablet 1,000 mg PO BID@09,20 0RF sodium chloride 1 gram tablet 1 g PO BID@09,20 0RF fludrocortisone 0.1 mg tablet 0.1 mg PO DAILY@09 0RF loperamide 2 mg Tablet 2 mg PO BID PRN (Reason: Diarrhea) 0RF levothyroxine 50 mcg Tablet 50 mcg PO DAILY@0800 Qty: 30 0RF methocarbamol 750 mg tablet 750 mg PO TID PRN (Reason: Muscle Spasm) 0RF insulin aspart U-100 [Novolog Flexpen U-100 Insulin] 100 unit/mL (3 mL) Insulin Pen See Rx Instructions .ROUTE .COMPLEX Qty: 0 0RF Rx Instructions: SLIDING SCALE as needed when blood sugar is over 200 prednisone 1 mg tablet 2 mg PO QAM 0RF Discharge Orders: Discharge Order (Routine); Ordered 04/22/21 Ordered By: Tian Murdock Referrals: [facility] ([facility]) [Outside] Thu Flores FNP [Primary Care Provider] - 04/30/21 1:30 pm Discharge Diet: Full LIquid Discharge Activity: Increase activity as tolerated Patient Instructions: Amoxicillin/Clavulanate Potassium (By mouth), Levofloxacin (By mouth), ARDS (Acute Respiratory Distress Syndrome) (GEN), Hypokalemia (DC), Aspiration Pneumonia (DC), Chronic Dysphagia (DC), Colitis (ED), Opioid Safety Discharge Attestations Time Spent in Discharge Care*: less than 30 min Status at Discharge: Cognitive status at discharge: cognitively intact , Behavioral status at discharge: cooperative , Quality Metrics Clinical Quality Measures [ No reported AMI, CVA or VTE this stay] Coding Level of Care Code Acute Chg FW DC note Diagnoses Aspiration pneumonia J69.0 ARDS (adult respiratory distress syndrome) J80 Severe sepsis A41.9; R65.20 Pneumonia J18.9 Colitis K52.9 Headache R51.9 Lewy body dementia G31.83; F02.80 Alzheimer disease G30.9; F02.80
[2021-04-22 12:19] LABS: Glucose Point of Care 254 mg/dL (70-110)
== END 2021-04-22 15:00 | disposition home or self-care (01) | DRG 871 ==
LOC: ER 09:43 → ICU 10:04 → MEDSURG 04-19 00:29
PROVIDERS: Emergency Medicine; Internal Medicine; Admitting Provider Internal Medicine; Emergency Provider Emergency Medicine; PCP Nurse Practitioner; Visit Provider Internal Medicine
DX: A41.9 Sepsis, unspecified organism (principal); J69.0 Pneumonitis due to inhalation of food and vomit; J80 Acute respiratory distress syndrome; I13.0 Hypertensive heart and chronic kidney disease with heart failure and stage 1 through stage 4 chronic kidney disease, or unspecified chronic kidney disease; I50.32 Chronic diastolic (congestive) heart failure; F33.9 Major depressive disorder, recurrent, unspecified; E27.40 Unspecified adrenocortical insufficiency; E87.1 Hypo-osmolality and hyponatremia; F05 Delirium due to known physiological condition; R65.20 Severe sepsis without septic shock; G89.29 Other chronic pain; M54.9 Dorsalgia, unspecified; N18.2 Chronic kidney disease, stage 2 (mild); E11.22 Type 2 diabetes mellitus with diabetic chronic kidney disease; K21.9 Gastro-esophageal reflux disease without esophagitis; E78.5 Hyperlipidemia, unspecified; E03.9 Hypothyroidism, unspecified; E66.01 Morbid (severe) obesity due to excess calories; Z68.28 Body mass index [BMI] 28.0-28.9, adult; F43.12 Post-traumatic stress disorder, chronic; K52.9 Noninfective gastroenteritis and colitis, unspecified; E11.42 Type 2 diabetes mellitus with diabetic polyneuropathy; Z79.4 Long term (current) use of insulin; Z79.84 Long term (current) use of oral hypoglycemic drugs; Z79.891 Long term (current) use of opiate analgesic; G30.9 Alzheimer's disease, unspecified; F02.80 Dementia in other diseases classified elsewhere, unspecified severity, without behavioral disturbance, psychotic disturbance, mood disturbance, and anxiety; I69.321 Dysphasia following cerebral infarction; F10.21 Alcohol dependence, in remission; F41.1 Generalized anxiety disorder; E11.43 Type 2 diabetes mellitus with diabetic autonomic (poly)neuropathy; K31.84 Gastroparesis; G43.909 Migraine, unspecified, not intractable, without status migrainosus; E87.6 Hypokalemia; I95.9 Hypotension, unspecified
CPT/HCPCS: 36415; 36416; 36600; 51702; 71045; 71250; 71275; 74176; 74177; 74230; 80048; 80053; 80202; 82009; 82803; 82962; 83605; 83735; 83880; 84145; 84484; 85025; 85378; 86140; 87040; 87493; 87631; 87635; 87641; 92611; 93005; 93306; 93970; 94640; 94664; 96365; 96367; 96372; 96375; 96376; 97110; 97116; 97161; 97530; 99291; C1751; J0692; J1200; J1650; J1720; J1815; J1885; J2270; J2405; J2543; J2765; J2920; J3010; J3370; J3475; J3480; J3490; J7030; J7040; J7050; J7512; Q9967

== ENCOUNTER 2021-05-01 07:53 | Emergency (ER) | payer OTHER, MEDICARE, SELFPAY ==
[2021-05-01 08:05] VITALS: BMI 21.2
[2021-05-01 08:11] VITALS: BP 143/77; PULSE 99; RESP 18; TEMP 36.8; O2SAT 97
--- NOTE | 2021-05-01 08:13 | XR_ITS ---
WS: [id number] XR lumbar spine 2-3V* [id number] REASON FOR EXAM: fall/back pain FINDINGS: Severe rotatory scoliosis convex left. Mild endplate compression deformities of L1-L3. Severe narrowing of the intervertebral disc spaces L1-S1. Moderate anterolisthesis of L5 on S1. Moderate degenerative change in the facet joints at L4-L5 and L5-S1. XR/XR lumbar spine 2-3V* [id number] IMPRESSION: Moderately severe multilevel degenerative spondylosis which has progressed comp ared to 12/16/2017. No significant change in the vertebral body configuration compared to the previ ous study to indicate acute or subacute compression fracture of the lumbar spin e.
--- NOTE | 2021-05-01 08:36 | ED_ITS ---
HPI - Back Pain/Injury General: Chief Complaint: Back Pain/Injury Stated Complaint: LOW BACK PAIN S/P FALL Time Seen by Provider: 05/01/21 08:01 Source: patient Mode of arrival: EMS History of Present Illness: 66-year-old female presents emergency room with low back pain. She fell yesterday on some stairs she was able to get up with assistance of her able to ambulate and get around well without any significant problems until this morning she woke up and was much more painful. She has difficult time standing due to pain. Normally she is on morphine regularly p.o. she is not had that refilled so she has not been able to take that. She not strike her head she not lose consciousness. She is not had any loss of bowel control or urinary retention she does chronically have numbness tingling in her legs that has been unchanged. MD elicited complaint: back pain Pertinent past history: prior back pain and recent trauma Onset (ago): hour(s) Timing: constant Severity: moderate Similar Symptoms Previously: Yes Quality: sharp Location: lumbar spine Radiation: none Exacerbating factors: sitting upright and walking Relieving factors: supine Associated symptoms: Reports difficulty walking; Deny abdominal pain, arthralgias, chills, change in bowel habits, dysuria, fatigue, fecal incontinence, hematuria, myalgias, nausea, numbness, syncope, tingling/numbness/burning, urinary frequency, urinary urgency, vomiting or weakness Treatments prior to arrival: NSAIDS Work related injury: No Review of Systems Const: Denies: chills or fatigue Card: Denies: syncope Resp: Denies: dyspnea, productive cough or non-productive cough GI: Denies: abdominal pain, nausea, vomiting, fecal incontinence or change in bowel habits : Denies: dysuria, urinary urgency or hematuria Neuro: Reports: difficulty walking PFSH ED PFSH: Medical History Adrenal insufficiency Altered mental status Alzheimer disease Anemia C. difficile diarrhea Chronic back pain Chronic diarrhea Chronic diastolic CHF (congestive heart failure) Chronic hyponatremia CKD (chronic kidney disease), stage II Depression Diabetic gastroparesis Dysphagia Generalized anxiety disorder GERD (gastroesophageal reflux disease) Headache Hyperlipidemia Hypertension Hyponatremia Hypothyroidism Insulin dependent type 2 diabetes mellitus Lactic acidosis Lewy body dementia Major depressive disorder, recurrent severe without psychotic features Morbid obesity Post-traumatic stress disorder, chronic Surgical History H/O esophagogastroduodenoscopy H/O: hysterectomy History of bunionectomy bilateral Hx of cholecystectomy Status post colonoscopy Family History Mother Hypertension Diabetes Father Hypertension Asthma Other CAD (coronary artery disease) Cancer Denies family history of Anesthesia complication Bleeding disorder Social History Quit status (tobacco): has tried quititng Second hand smoke exposure: Yes Smoking risk assessment/counseling performed?: No Alcohol intake: former Former alcohol use details: Reportedly has not had any alcohol since June Household members: spouse Housing: [employer]/Mobile home Marital status: Current occupational status: retired History of recent travel: No Female Reproductive History: Date of last menstrual period: 06/14/20 Physical Exam Const: GENERAL APPEARANCE: cooperative ORIENTATION/CONSCIOUSNESS: Yes awake, Yes oriented to person, Yes oriented to place and Yes oriented to time HENMT: COMMON NORMALS: normocephalic, atraumatic and hearing grossly normal bilaterally HEAD & SCALP: normocephalic and atraumatic Neck/C-Spine: COMMON NORMALS: no JVD Resp: COMMON NORMALS: normal respiratory effort, No retractions, No use of accessory muscles and clear to auscultation bilaterally AUSCULTATION: clear to auscultation bilaterally Cardio: COMMON NORMALS: no JVD, regular rate, regular rhythm and No murmurs present (Cardio) RATE: regular rate RHYTHM: regular rhythm GI: COMMON NORMALS: Soft to palpation and No hepatosplenomegaly present AUSCULTATION: Yes normoactive bowel sounds PALPATION: Yes Soft to palpation, No Tenderness to palpation present (GI), No Guarding due to palpation present (GI) and Yes No hepatosplenomegaly present Extremity: COMMON NORMALS: normal to inspection, capillary refill normal, no clubbing, cyanosis or edema, no calf tenderness and no pedal edema Neuro: SENSORIUM/ORIENTATION: Yes oriented to person, Yes oriented to place and Yes oriented to time Skin: COMMON NORMALS: no rashes or lesions noted GENERAL SKIN EXAM: no rashes or lesions noted Course Vital Signs: Vital signs: Vital Signs Temperature 98.3 F 02/09/22 08:11 Pulse Rate 99 05/01/21 08:11 Respiratory Rate 18 05/01/21 08:11 Blood Pressure 150/98 05/01/21 09:48 Pulse Oximetry 97 05/01/21 08:11 MDM - Back Pain/Injury Medical Decision Making Fall with back pain and moderate sciatica. Patient has no cauda equina syndromes. Will discharge home and follow-up with her primary care doctor she has chronic back pain and seems to been exacerbated by this. No acute fractures on imaging. Medical Records I reviewed the patient's medical records. Labs I reviewed the patient's lab results. Radiology Impressions Lumbar Spine X-Ray 05/01/21 08:13 IMPRESSION: Moderately severe multilevel degenerative spondylosis which has progressed compared to 12/16/2017. No significant change in the vertebral body configuration compared to the previous study to indicate acute or subacute compression fracture of the lumbar spine. Discharge Plan Discharge Patient Disposition: Home Clinical Impression: Fall, Back pain Condition: Stable Prescriptions: New hydrocodone-acetaminophen 5-325 mg tablet 1 tab PO Q6H PRN (Reason: pain) Qty: 20 0RF Medrol (Brett) 4 mg tablets,dose pack See Rx Instructions .ROUTE .COMPLEX Qty: 21 0RF Rx Instructions: orally per package directions tizanidine 4 mg capsule 4 mg PO Q6H PRN (Reason: muscle spasticity) Qty: 20 0RF Rx Instructions: do not exceed 3 doses per 24 hrs No Action gabapentin 100 mg capsule 200 mg PO BID 0RF promethazine 25 mg tablet 25 mg PO TID PRN (Reason: Nausea) 0RF pantoprazole 40 mg tablet,delayed release (DR/EC) 40 mg PO QAM 0RF metoprolol tartrate 50 mg tablet 25 mg PO BID 0RF duloxetine 20 mg capsule,delayed release(DR/EC) 20 mg PO BID 0RF glimepiride 4 mg tablet 4 mg PO PRN PRN (Reason: blood sugar) 0RF sucralfate 1 gram tablet 1 g PO BID 0RF mirtazapine 45 mg tablet 45 mg PO BEDTIME 0RF atorvastatin 80 mg Tablet 80 mg PO BEDTIME@20 0RF Glucerna 1.5 Warner 0.08-1.5 gram-kcal/mL Liquid 1 ea feeding tube .UP TO 5 TIMES A DAY PRN (Reason: malnutrition) 0RF buspirone 15 mg tablet 15 mg PO BID Qty: 60 0RF hydrocodone-acetaminophen 5-325 mg tablet 1 tab PO Q12H PRN (Reason: Pain) 0RF acetaminophen 325 mg tablet 650 - 975 mg PO QID PRN (Reason: Pain) 0RF galantamine 4 mg tablet 4 mg PO BID 0RF Rx Instructions: administer with AM and PM meals magnesium L-lactate [Magtab] 84 mg tablet extended release 84 mg PO BID 0RF tizanidine 4 mg tablet 4 mg PO TID PRN (Reason: Muscle Spasm) 0RF potassium chloride 20 mEq Tablet Extended Release 10 meq PO DAILY PRN (Reason: potassium deficiency ) 0RF ondansetron HCl 4 mg Tablet 4 mg PO Q6H PRN (Reason: Nausea And Vomiting) Qty: 10 0RF metformin 1,000 mg Tablet 1,000 mg PO BID@09,20 0RF sodium chloride 1 gram tablet 1 g PO BID@09,20 0RF fludrocortisone 0.1 mg tablet 0.1 mg PO DAILY@09 0RF loperamide 2 mg Tablet 2 mg PO BID PRN (Reason: Diarrhea) 0RF levothyroxine 50 mcg Tablet 50 mcg PO DAILY@0800 Qty: 30 0RF methocarbamol 750 mg tablet 750 mg PO TID PRN (Reason: Muscle Spasm) 0RF insulin aspart U-100 [Novolog Flexpen U-100 Insulin] 100 unit/mL (3 mL) Insulin Pen See Rx Instructions .ROUTE .COMPLEX Qty: 0 0RF Rx Instructions: SLIDING SCALE as needed when blood sugar is over 200 prednisone 1 mg tablet 2 mg PO QAM 0RF Augmentin 875-125 mg tablet 1 tab PO BID Qty: 14 0RF Discharge Orders: Discharge ED (Routine); Ordered 05/01/21 Ordered By: Darek Barahona Referrals: Thu Flores FNP [Primary Care Provider] - Patient Instructions: Opioid Safety Activity Restrictions/Additional Instructions: Follow-up with your doctor within the next week Coding Level of Care Code ED Spring Clipper for Chg Fwd Exam Comprehensive
[2021-05-01] MEDS: ketorolac 30 mg/mL INJ IVP (09:26)
[2021-05-01] MEDS: dexamethasone 10 mg/mL INJ IVP (09:27)
[2021-05-01] MEDS: orphenadrine 30 mg/mL Inj 2 mL 60 MG IVP (09:27)
[2021-05-01 09:48] VITALS: BP 150/98
== END 2021-05-01 09:48 | disposition home or self-care (01) ==
PROVIDERS: Emergency Provider Family Medicine; PCP Nurse Practitioner
DX: M54.9 Dorsalgia, unspecified (principal); Z79.84 Long term (current) use of oral hypoglycemic drugs; Z79.4 Long term (current) use of insulin; G30.9 Alzheimer's disease, unspecified; F02.80 Dementia in other diseases classified elsewhere, unspecified severity, without behavioral disturbance, psychotic disturbance, mood disturbance, and anxiety; I13.0 Hypertensive heart and chronic kidney disease with heart failure and stage 1 through stage 4 chronic kidney disease, or unspecified chronic kidney disease; I50.32 Chronic diastolic (congestive) heart failure; N18.2 Chronic kidney disease, stage 2 (mild); E11.22 Type 2 diabetes mellitus with diabetic chronic kidney disease; E78.5 Hyperlipidemia, unspecified; Z77.22 Contact with and (suspected) exposure to environmental tobacco smoke (acute) (chronic)
CPT/HCPCS: 72100; 96374; 96375; 99283; J1100; J1885; J2360

== ENCOUNTER 2021-05-10 17:23 | Emergency (ER) | payer OTHER, MEDICARE, SELFPAY ==
[2021-05-10 17:28] VITALS: BP 132/85; PULSE 104; RESP 18; TEMP 36.7; O2SAT 97; BMI 21.2
--- NOTE | 2021-05-10 17:37 | CTR_ITS ---
PROCEDURE INFORMATION: Exam: CT Head Without Contrast Exam date and time: 05/10/2021 5:37 PM Age: 66 years old Clinical indication: Pain; Headache not specified; Additional info: Eval for headache TECHNIQUE: Imaging protocol: Computed tomography of the head without contrast. Radiation optimization: All CT scans at this facility use at least one of these dose optimization techniques: automated exposure control; mA and/or kV adjustment per patient size (includes targeted exams where dose is matched to clinical indication); or iterative reconstruction. COMPARISON: CT head wo con* [id number] 03/27/2021 5:07 AM RADIATION DOSE METRICS: Total DLP (mGy-cm): 725.31 FINDINGS: Brain: There is mild cortical atrophy. Low-density changes in the white matter are consistent with nonspecific small vessel chronic ischemic change. There is no intracranial mass, hemorrhage or edema. Cerebral ventricles: No ventriculomegaly. Paranasal sinuses: Visualized sinuses are unremarkable. No fluid levels. Mastoid air cells: Visualized mastoid air cells are well aerated. Bones/joints: Unremarkable. No acute fracture. Soft tissues: Unremarkable. CT/CT head wo con* [id number] IMPRESSION: No acute intracranial finding. No significant change from 03/27/2021.
[2021-05-10 18:09] VITALS: BP 132/85; PULSE 104; RESP 18; O2SAT 97
[2021-05-10] MEDS: acetaminophen 500 mg Tablet 1000 MG PO (18:21)
--- NOTE | 2021-05-10 18:21 | ED_ITS ---
HPI - General Adult General: Chief complaint: Headache Stated complaint: High B/P, N/V sent by PCP Time Seen by Provider: 05/10/21 17:34 History of Present Illness: HPI: [66]yo patient w hx of migraine headache presenting to the ED with new onset of headache x 3 days. Describes the headache as pulsatile or cramping. Patient reports headache was gradual in onset over 2- 3 hrs and has since been intermittent unremitting and worsening. Headache associated with +N/+V x 1 episode, photophobia, generalized weakness, and inability to concentrate on tasks. Denies fever/chill, hx of immunocompromise, HIV, or transplant. The patient denies any focal neurological weakness, vision blindness, diplopia, or eye pain, hoarseness of voice or facial weakness. The patient has had decreased PO intake since the onset of headache symptoms. No family hx of subarachnoid hemorrhage. Denies recent trauma to the head. Pain is unrelieved with OTC medication, ibuprofen or Tylenol. Per chart review, the patient has had multiple prior ED visits for headache. No complaints of chest pain, shortness of breath, palpitations, light-headedness/vertigo/syncope, abdominal pain, or complaints today. Onset: 3days ago Duration: ongoing Location: home Severity: moderate Associated symptoms: Reports headache(s), nausea and vomiting; Deny chest pain, dyspnea, rash or palpitations Review of Systems Const: Denies: fever(s) or chills Eyes: Denies: change in vision ENMT: Denies: mouth pain Card: Denies: chest pain or palpitations Resp: Denies: dyspnea or non-productive cough GI: Reports: nausea and vomiting; Denies: abdominal pain or diarrhea : Denies: dysuria Musc: Denies: extremity pain Skin/Breast: Denies: rash or new lesions Neuro: Reports: headache(s); Denies: weakness in extremities Psych: Reports: other (Normal mood) Jeremiah/Lymph: Denies: easy bruising [facility] ED PFSH: Medical History Adrenal insufficiency Altered mental status Alzheimer disease Anemia C. difficile diarrhea Chronic back pain Chronic diarrhea Chronic diastolic CHF (congestive heart failure) Chronic hyponatremia CKD (chronic kidney disease), stage II Depression Diabetic gastroparesis Dysphagia Generalized anxiety disorder GERD (gastroesophageal reflux disease) Headache Hyperlipidemia Hypertension Hyponatremia Hypothyroidism Insulin dependent type 2 diabetes mellitus Lactic acidosis Lewy body dementia Major depressive disorder, recurrent severe without psychotic features Morbid obesity Post-traumatic stress disorder, chronic Surgical History H/O esophagogastroduodenoscopy H/O: hysterectomy History of bunionectomy bilateral Hx of cholecystectomy Status post colonoscopy Family History Mother Hypertension Diabetes Father Hypertension Asthma Other CAD (coronary artery disease) Cancer Denies family history of Anesthesia complication Bleeding disorder Social History Quit status (tobacco): has tried quititng Second hand smoke exposure: Yes Smoking risk assessment/counseling performed?: No Alcohol intake: former Former alcohol use details: Reportedly has not had any alcohol since June Household members: spouse Housing: Manufactured/Mobile home Marital status: Current occupational status: retired History of recent travel: No Physical Exam Const: COMMON NORMALS: alert HENMT: COMMON NORMALS: atraumatic HEAD & SCALP: atraumatic MOUTH: moist mucous membranes not abnormal Eye: COMMON NORMALS: EOMs intact bilaterally and conjunctivae normal CONJUNCTIVA: Yes conjunctivae normal Neck/C-Spine: COMMON NORMALS: full ROM and supple Resp: COMMON NORMALS: normal respiratory effort and clear to auscultation bilaterally AUSCULTATION: clear to auscultation bilaterally Cardio: COMMON NORMALS: regular rate RATE: regular rate GI: COMMON NORMALS: Soft to palpation and non-tender PALPATION: Yes Soft to palpation Extremity: COMMON NORMALS: full ROM Neuro: SENSORIUM/ORIENTATION: Yes alert MOTOR EXAM: No Abnormal motor strength present and Other motor observations present (no focal motor deficits) OTHER: Mental status? Awake, alert, and oriented to self, year, month, location, and situation.? Following simple axial and appendicular commands.? Has appropriate fund of knowledge, comprehension, and insight.? Able to recall and understands pertinent aspects of medical history and current treatment status.? ? Language? Speech is fluent without word-finding difficulties.? Intact naming, expression, medical receptionist assistant, and repetition.? ? Cranial nerves? 2,3,4,6: PERRL, EOMI with no nystagmus. 5: Intact sensation to light touch, symmetric? 7: Smile symmetrical, no facial droop.? 8: Hearing grossly intact.? 9,10: Normal palate movement.? 11: Normal strength in trapezius bilaterally 12: Tongue protrudes midline.? ? Motor examination? Normal bulk & tone. Strength as follows (R/L): Delts (5/5), Biceps (5/5), Triceps (5/5), Wrist ext (5/5), hip flexors (5/5), plantarflexors (5/5), dorsiflexors (5/5). ? Sensation? Light Touch: Grossly intact and equal in upper and lower extremities bilaterally? Romberg: Negative.? Distal joint position sense intact ? Coordination? Xplpep-md-[id number]-finger movements intact without dysmetria or past-pointing.? Rapid fingertaps: preserved amplitude without decriment.? No tremor, myoclonus or truncal ataxia.? ? Gait/stance? Steady, normal narrow base gait with appropriate arm swing and turning.? Tandem gait without hesitation or loss of balance. Psych: COMMON NORMALS: speech normal SPEECH: Yes normal speech MOOD & AFFECT: Yes euthymic mood Course Vital Signs: Vital signs: Vital Signs Temperature 98.1 F 05/10/21 17:28 Pulse Rate 104 H 05/10/21 18:09 Respiratory Rate 18 05/10/21 18:09 Blood Pressure 132/85 05/10/21 18:09 Pulse Oximetry 97 05/10/21 18:09 MDM - General Adult Medical Decision Making 66 F presenting ot the ED w/ moderate to severe headache. -Fever, +Nausea/+Vomiting, -Neck pain. -Trauma. Afebrile, HDS stable. No focal neurological symptoms. Neuro exam is non-focal. Pt is nontoxic. Based on history and normal neurological exam I do not suspect for intracranial tumor, intracranial bleed, subdural/epidural hematoma, meningitis or intracranial abscess, encephalopathy or encephalitis, temporal arteritis, glaucoma, CO poisoning. Presentation most likely benign headache. Intervention today: Benadryl 50mg, reglan 10mg, and tylenol 500mg, magnesium oxide 400mg [6:45pm] On reassessment, the patient reports the headache is symptomatically improved with treatment. Neuro exam intact. Patient is able to ambulate and tolerate PO in the ED. CT imaging negative for any acute changes I have given patient follow up with our welfare case worker to be seen by Dr. Covarrubias for recurrent headache. Patient aware of a call from our welfare case worker to schedule for appointment(s) and verbalizes understanding of the importance of following up. Rx: Tylenol and magnesium oxide PNR for headache Disposition: Discharge home with strict return precautions and instructions for prompt primary care follow up. Given referral for Neurology should any headache recur. Given return instructions for any focal deficit, fever/chill, neck pain or any new or concerning symptoms. Lab Data Radiology Impressions Head CT 05/10/21 17:37 IMPRESSION: No acute intracranial finding. No significant change from 03/27/2021. Imaging Data Other Imaging: Radiologist's impression: [employer] [address] [address] Scan Report Signed Patient: Ingris Mendosa Unit #: [id number] : 1955 Age/Sex: 66 / F ADM Date: 05/10/21 Loc: ER Room/Bed: Attending Dr: Ordering Provider/Ordering MD: Lewis Coe MD Date of Service: 05/10/21 Procedure(s): CT head wo con* [id number] Accession Number(s): [id number] Report Number: [id number] PROCEDURE INFORMATION: Exam: CT Head Without Contrast Exam date and time: 05/10/2021 5:37 PM Age: 66 years old Clinical indication: Pain; Headache not specified; Additional info: Eval for headache TECHNIQUE: Imaging protocol: Computed tomography of the head without contrast. Radiation optimization: All CT scans at this facility use at least one of these dose optimization techniques: automated exposure control; mA and/or kV adjustment per patient size (includes targeted exams where dose is matched to clinical indication); or iterative reconstruction. COMPARISON: CT head wo con* [id number] 03/27/2021 5:07 AM RADIATION DOSE METRICS: Total DLP (mGy-cm): 725.31 FINDINGS: Brain: There is mild cortical atrophy. Low-density changes in the white matter are consistent with nonspecific small vessel chronic ischemic change. There is no intracranial mass, hemorrhage or edema. Cerebral ventricles: No ventriculomegaly. Paranasal sinuses: Visualized sinuses are unremarkable. No fluid levels. Mastoid air cells: Visualized mastoid air cells are well aerated. Bones/joints: Unremarkable. No acute fracture. Soft tissues: Unremarkable. CT/CT head wo con* [id number] IMPRESSION: No acute intracranial finding. No significant change from 03/27/2021. ? Dictated By: David Clayton Signed By: David Clayton Signed Date/Time: 05/10/211811 DD/ 36 Discharge Plan Discharge Patient Disposition: Home Clinical Impression: Headache, Nausea & vomiting Condition: Stable Prescriptions: New magnesium oxide 500 mg capsule 500 mg PO DAILY PRN (Reason: headache) 10 Days Qty: 10 0RF No Action gabapentin 100 mg capsule 200 mg PO BID 0RF promethazine 25 mg tablet 25 mg PO TID PRN (Reason: Nausea) 0RF pantoprazole 40 mg tablet,delayed release (DR/EC) 40 mg PO QAM 0RF metoprolol tartrate 50 mg tablet 25 mg PO BID 0RF duloxetine 20 mg capsule,delayed release(DR/EC) 20 mg PO BID 0RF glimepiride 4 mg tablet 4 mg PO PRN PRN (Reason: blood sugar) 0RF sucralfate 1 gram tablet 1 g PO BID 0RF mirtazapine 45 mg tablet 45 mg PO BEDTIME 0RF prednisone 1 mg tablet 4 mg PO QAM 0RF atorvastatin 80 mg Tablet 80 mg PO BEDTIME@20 0RF Glucerna 1.5 Warner 0.08-1.5 gram-kcal/mL Liquid 1 ea feeding tube .UP TO 5 TIMES A DAY PRN (Reason: malnutrition) 0RF buspirone 15 mg tablet 15 mg PO BID Qty: 60 0RF hydrocodone-acetaminophen 5-325 mg tablet 1 tab PO Q12H PRN (Reason: Pain) 0RF acetaminophen 325 mg tablet 650 - 975 mg PO QID PRN (Reason: Pain) 0RF galantamine 4 mg tablet 4 mg PO BID 0RF Rx Instructions: administer with AM and PM meals magnesium L-lactate [Magtab] 84 mg tablet extended release 84 mg PO BID 0RF tizanidine 4 mg tablet 4 mg PO TID PRN (Reason: Muscle Spasm) 0RF potassium chloride 20 mEq Tablet Extended Release 10 meq PO DAILY PRN (Reason: potassium deficiency ) 0RF ondansetron HCl 4 mg Tablet 4 mg PO Q6H PRN (Reason: Nausea And Vomiting) Qty: 10 0RF metformin 1,000 mg Tablet 1,000 mg PO BID@09,20 0RF sodium chloride 1 gram tablet 1 g PO BID@09,20 0RF fludrocortisone 0.1 mg tablet 0.1 mg PO DAILY@09 0RF loperamide 2 mg Tablet 2 mg PO BID PRN (Reason: Diarrhea) 0RF levothyroxine 50 mcg Tablet 50 mcg PO DAILY@0800 Qty: 30 0RF methocarbamol 750 mg tablet 750 mg PO TID PRN (Reason: Muscle Spasm) 0RF insulin aspart U-100 [Novolog Flexpen U-100 Insulin] 100 unit/mL (3 mL) Insulin Pen See Rx Instructions .ROUTE .COMPLEX Qty: 0 0RF Rx Instructions: SLIDING SCALE as needed when blood sugar is over 200 Augmentin 875-125 mg tablet 1 tab PO BID Qty: 14 0RF hydrocodone-acetaminophen 5-325 mg tablet 1 tab PO Q6H PRN (Reason: pain) Qty: 20 0RF Medrol (Brett) 4 mg tablets,dose pack See Rx Instructions .ROUTE .COMPLEX Qty: 21 0RF Rx Instructions: orally per package directions tizanidine 4 mg capsule 4 mg PO Q6H PRN (Reason: muscle spasticity) Qty: 20 0RF Rx Instructions: do not exceed 3 doses per 24 hrs Discharge Orders: Discharge ED (Routine); Ordered 05/10/21 Ordered By: Lewis Coe Referrals: Thu Flores, RENT COLLECTOR [Primary Care Provider] - Discharge Diet: Advance as tolerated Discharge Activity: Increase activity as tolerated Patient Instructions: Acute Headache (ED) Activity Restrictions/Additional Instructions: Please come back to the emergency room you have any fever chills, worsening headache, focal weakness, nausea/vomiting, inability to perform daily activity, or any new concerning complaints. Coding Level of Care Code ED Wire Puller for Navid Fwd Exam Comprehensive
[2021-05-10] MEDS: metoclopramide 10 mg Tablet PO (19:29)
[2021-05-10] MEDS: magnesium oxide 400 mg tablet PO (19:29)
[2021-05-10] MEDS: diphenhydrAMINE 50 mg Capsule PO (19:29)
[2021-05-10] MEDS: ketorolac 30 mg/mL INJ IM (19:31)
--- NOTE | 2021-05-13 14:45 | DCPLANNER ---
Addendum entered by Joseline Little 06/28/21 08:11: Patient had a follow up appointment scheduled for 06.20.[address] Covarrubias - patient did attend appointment. Addendum entered by Joseline Little 05/17/21 14:40: Patient had a follow up appointment scheduled for , June 20, 2021 at 10:[address] Covarrubias. Clinic will call patient with appointment information. Addendum entered by Joseline Little 05/13/21 14:53: Patient has [facility] insurance, manager case management sent patients information to Cindy with [facility] for the authorization process could be started. Original Note: email campaign manager had message to schedule a follow up appointment for patient with Dr. Covarrubias. email campaign manager emailed patients information to the neurology clinic. Patients information will be printed and reviewed. Clinic will call patient with appointment information.
== END 2021-05-10 20:24 | disposition home or self-care (01) ==
PROVIDERS: Emergency Provider Emergency Medicine; PCP Nurse Practitioner
DX: R51.9 Headache, unspecified (principal); R11.2 Nausea with vomiting, unspecified; I13.0 Hypertensive heart and chronic kidney disease with heart failure and stage 1 through stage 4 chronic kidney disease, or unspecified chronic kidney disease; I50.32 Chronic diastolic (congestive) heart failure; N18.2 Chronic kidney disease, stage 2 (mild); E11.22 Type 2 diabetes mellitus with diabetic chronic kidney disease; E78.5 Hyperlipidemia, unspecified; E03.9 Hypothyroidism, unspecified; Z79.4 Long term (current) use of insulin; Z79.84 Long term (current) use of oral hypoglycemic drugs; Z79.891 Long term (current) use of opiate analgesic
CPT/HCPCS: 70450; 96372; 99283; J1200; J1885; J2765; J3475; J7030; J8597; Q0163

== ENCOUNTER 2021-05-31 08:51 | Outpatient (CLI) | payer OTHER, SELFPAY ==
--- NOTE | 2021-05-31 08:59 | FL_ITS ---
WS: [id number] Barium swallow and esophagram, upper GI series with thin barium, 05/31/2021 Clinical Data: K62.5 - Hemorrhage of anus and rectum Comparison: Barium swallow, 03/27/2020. Fluoroscopy time: 0.7 minutes. Findings: The patient swallowed the thin barium, and it flowed through the hypopharynx without hesitation. No s tricture, mass, polyp or erosion was seen. There was no aspiration or penetration. The barium into the esophagus and there was normal motility throughout. No hiatal hernia, reflux, str icture, polyp, mass, erosion or ulcer was noted. No reflux was present. The barium passed into the stomach which was well distended. No erosion, polyp, mass or deformity cou ld be seen. No gastric ulcer was present. There is the bulb of the gastric tube adjacent to the left side of the body of the stomach. Barium then passed into the duodenal bulb which distended normally without ulceration. The proximal small bowel is normal. A generator was overlapping the stomach on several images. The wires lead to epidural stimulator wire s in the mid thoracic epidural space. There are clips in the right upper quadrant from a cholecystec charleen. FL/FL upper GI w air* [id number] Impression: 1. Negative esophagram with no evidence of any aspiration or penetration into t he trachea. 2. Negative upper GI series.
== END 2021-05-31 08:52 | disposition home or self-care (01) ==
PROVIDERS: PCP Nurse Practitioner; Visit Provider Surgery
DX: K62.5 Hemorrhage of anus and rectum (principal)
CPT/HCPCS: 74246

== ENCOUNTER → 2021-06-20 10:06 | Outpatient (BNVA) | payer OTHER, SELFPAY | PROVIDERS: PCP Nurse Practitioner; Referring Provider Emergency Medicine; Visit Provider Specialist | DX: R51.9 Headache, unspecified (principal); R11.0 Nausea; G31.83 Neurocognitive disorder with Lewy bodies; F02.80 Dementia in other diseases classified elsewhere, unspecified severity, without behavioral disturbance, psychotic disturbance, mood disturbance, and anxiety; M54.2 Cervicalgia; S12.100S Unspecified displaced fracture of second cervical vertebra, sequela; Y93.9 Activity, unspecified | CPT/HCPCS: 96372; 99214; 99215; J1885; J2405 ==

== ENCOUNTER 2021-06-25 06:40 | Day surgery (SDC) | payer OTHER, SELFPAY ==
[2021-06-24 10:26] VITALS: BMI 21.0
--- NOTE | 2021-06-25 06:32 | W.PM.OPSUD ---
Surgery/Procedure H&P Update DATE OF PROCEDURE: June 25, 2021 DATE H&P PERFORMED: 12/09/19 H&P UPDATE INFORMATION: I have reviewed H&P completed within last 30 days, I have examined patient prior to procedure and No changes to prior documentation PREOP DIAGNOSIS: Feeding difficulty PRIMARY INDICATION FOR PROCEDURE: The same PLANNED PROCEDURE: Operation Date: 06/25/21 08:00 Proposed Procedures p Gastric Tube Insertion/button placement 63983 under mac-4.5cm20 [place] Sergio button K93.23(Not Applicable) - Fernie Duron MD
[2021-06-25 07:00] VITALS: BP 156/102; PULSE 124; RESP 20; TEMP 36.1; O2SAT 97
--- NOTE | 2021-06-25 07:05 | P.ANESASSM_ITS ---
Documented by User: Tash Partida CRNA 06/25/21 07:11 Pre-Anesthetic Assessment Height/Weight: Height 1.6 m Weight 53.977 kg Preop Diagnosis: Feeding difficulty Operation Date: 06/25/21 08:00 Proposed Procedures p Gastric Tube Insertion/button placement [id number] under mac-4.5cm20 [place]errat[place] Sergio button K93.23(Not Applicable) - Fernie Duron MD Familial anesthetic complications: none Was Beta Migdalia taken within 24 hours: N/A (took yesterday) Was Clonidine taken within 24 hours: N/A Social Tobacco and No alcohol 5 mini cigars, smoked this morning pack(s) per day Exam alert and oriented x 3 Airway Submandibular: within normal limits Cervical ROM: Other (limited. in C-collar for broken neck about a year ago) Mallampati: Class II Dentition: false History/ROS No significant history except as noted Pulmonary Sleep Apnea denies COPD/asthma CV/HEM Hypertension None reported Hepatic None reported GI Gastroesophageal Reflux Disease Metabolic Diabetes Mellitus and Hyperlipidemia Musc/skel Lower Back Pain Neuropsych Anxiety and Depression Anesthetic Plan ASA status: 3 Anesthesia: Anesthesia Evaluation and MAC Risk of > 500 ml blood loss (7ml/kg in children): No Medications/Allergies Home Medications Medication Instructions Recorded Confirmed Last Taken Type atorvastatin 80 mg tablet 80 mg PO BEDTIME@04/09/19 06/25/21 06/24/21 History metformin 1,000 mg tablet 1,000 mg PO BID@02/06/20 06/25/21 06/24/21 09:00 History sodium chloride 1 gram tablet 1 g PO BID@03/06/20 06/25/21 06/24/21 History loperamide 2 mg tablet 2 mg PO BID PRN 05/21/20 06/25/21 06/23/21 History levothyroxine 50 mcg tablet 50 mcg PO DAILY@0800 #30 tab 05/23/20 06/25/2106/24 Rx gabapentin 100 mg capsule 200 mg PO BID cap 06/12/20 06/25/21 06/24/21 History methocarbamol 750 mg tablet 750 mg PO TID PRN 06/27/20 06/25/21 06/24/21 18:00 History nutrition tx glu 1 ea FEEDING TUBE .UP TO 5 TIMES A 07/04/20 06/25/2122 History intol,lac-free,soy-fiber 0.08 DAY PRN gram-1.5 kcal/mL liquid (Glucerna 1.5 Warner) insulin aspart U-100 100 unit/mL See Rx Instructions .ROUTE 07/14/20 06/25/21 1 Week Ago Rx (3 mL) subcutaneous pen (Novolog .COMPLEX #0 ml ~06/18/21 Flexpen U-100 Insulin aspart) buspirone 15 mg tablet 15 mg PO BID #60 tab 07/17/20 06/25/21 06/24/21 Rx metoprolol tartrate 50 mg tablet 25 mg PO BID tab 11/06/20 06/25/21 06/24/21 09:00 History pantoprazole 40 mg tablet,delayed 40 mg PO QAM 11/06/20 06/25/21 06/24/21 History release promethazine 25 mg tablet 25 mg PO TID PRN 11/06/20 06/25/21 06/23/21 History duloxetine 20 mg capsule,delayed 20 mg PO BID 02/06/21 06/25/21 06/24/21 History release glimepiride 4 mg tablet 4 mg PO PRN PRN 02/11/21 06/25/21 06/24/21 09:00 History mirtazapine 45 mg tablet 45 mg PO BEDTIME 02/11/21 06/25/21 06/24/21 History sucralfate 1 gram tablet 1 g PO BID 02/11/21 06/25/21 06/24/21 History acetaminophen 325 mg tablet 650 - 975 mg PO QID PRN 04/05/21 06/25/21 06/23/21 History potassium chloride 20 mEq 10 meq PO DAILY PRN 04/05/21 06/25/21 06/24/21 09:00 History tablet,extended release ondansetron HCl 4 mg tablet 4 mg PO Q6H PRN #10 tab 04/07/21 06/25/21 06/23/21 Rx hydrocodone 5 mg-acetaminophen 325 1 tab PO Q6H PRN #20 tab 05/01/21 06/25/21 06/23/21 Rx mg tablet prednisone 1 mg tablet 2.5 mg PO QAM tab 05/08/21 06/25/21 06/24/21 History metoclopramide HCl 10 mg tablet 5 mg PO DAILY 06/24/21 06/25/21 06/24/21 History Allergies Allergy/AdvReac Type Severity Reaction Status Date / Time No Known Allergies Allergy Verified 06/20/21 08:19 COUNTS INCLUDE 234 BEDS AT THE [facility] Anesthesia Medical History Adrenal insufficiency Altered mental status Alzheimer disease Anemia C. difficile diarrhea Chronic back pain Chronic diarrhea Chronic diastolic CHF (congestive heart failure) Chronic hyponatremia CKD (chronic kidney disease), stage II Depression Diabetic gastroparesis Dysphagia Generalized anxiety disorder GERD (gastroesophageal reflux disease) Headache Hyperlipidemia Hypertension Hyponatremia Hypothyroidism Insulin dependent type 2 diabetes mellitus Lactic acidosis Lewy body dementia Major depressive disorder, recurrent severe without psychotic features Morbid obesity Post-traumatic stress disorder, chronic Surgical History H/O esophagogastroduodenoscopy H/O: hysterectomy History of bunionectomy bilateral Hx of cholecystectomy Status post colonoscopy Family History Mother Hypertension Diabetes Father Hypertension Asthma Other CAD (coronary artery disease) Cancer Denies family history of Anesthesia complication Bleeding disorder Social History Smoking and tobacco status: never smoked Quit status (tobacco): has tried quititng Second hand smoke exposure: Yes Smoking risk assessment/counseling performed?: No Alcohol intake: former Former alcohol use details: Reportedly has not had any alcohol since June Household members: spouse Housing: Manufactured/Mobile home Marital status: Current occupational status: retired History of recent travel: No Data Anesthesia Cardiac Studies: Echocardiogram 04/15/21 Echocardiogram Ultrasound 12/04/19
--- NOTE | 2021-06-25 08:21 | P.PCN_ITS ---
Procedure/Consent Time out: Time Out Performed: Yes Consent: Consent for Procedure: Consent obtained from patient, Risks & Benefits reviewed and Agrees to proceed with procedure Procedure Narrative: Gastrosotomy Tube exchange Procedure note Preprocedure diagnosis PEG Feeding tube issues Postprocedure diagnosis the same Procedure exchange of gastrostomy feeding tube to Sergio's Button Patient was identified in the GI lab, time-out was done verifying the patient's name, date of , and procedure, all were in agreement.2 mg IM Morphine were given to the patient.school lunch monitor all the time attached to the patient. At this point the PEG tube 20 Fr was remved without difficulty from the gastrostomy site, a new 20 Latvian Sergio button/4.5 cm was available for exchange,it was well lubricated and the balloon was already tested. Was inserted without difficulty and the balloon was inflated up to 6 mL with saline and Gastric contents were coming out via the gastrostomy hubb, indicating that the tube in appropriate position. Patient tolerated the procedure well and was discharged home. I was present for the whole entire procedure Estimated blood loss 0 No specimen Nursing staff assisting Vanna C-collar was maintained on the patient's neck through the whole entire procedure XIOMARA Bianchi Surgeon Dr Duron Acute Procedures Epistaxis Control: Time out performed: Yes
[2021-06-25 08:25] VITALS: BP 157/97; PULSE 106; RESP 22; TEMP 36.1; O2SAT 99
[2021-06-25 08:37] VITALS: BP 166/85; PULSE 110; O2SAT 99
[2021-06-25] MEDS: HYDROcodone-acetaminophen 5-325 mg Tablet 1 TAB PO (08:45)
--- NOTE | 2021-06-25 09:33 | SUR.PREOP ---
Staff was unable to obtain an IV on patient. No IV fluids started.
--- NOTE | 2021-06-25 09:52 | ANE.PACU2 ---
Inpatient post-anesthesia follow up: Airway intact: Yes Vital signs: Temperature 97 F Pulse Rate 110 Respiratory Rate 22 Blood Pressure 166/85 Pulse Oximetry 99 Oxygen Delivery Me thod Room Air Oxygen Flow Rate Fraction of Inspir ed Oxygen Hydration adequate: Yes Nausea and vomiting: No Pain level: 1 Mental status: Baseline
== END 2021-06-25 08:55 | disposition home or self-care (01) ==
PROVIDERS: PCP Nurse Practitioner; Visit Provider Surgery
PROC: 0DP64UZ Removal of Feeding Device from Stomach, Percutaneous Endoscopic Approach (ICD-10-PCS; CPT 43762; principal; 2021-06-25 08:00)
DX: K94.23 Gastrostomy malfunction (principal); G47.30 Sleep apnea, unspecified; K21.9 Gastro-esophageal reflux disease without esophagitis; E78.5 Hyperlipidemia, unspecified; F41.9 Anxiety disorder, unspecified; F32.9 Major depressive disorder, single episode, unspecified; Z79.84 Long term (current) use of oral hypoglycemic drugs; Z79.4 Long term (current) use of insulin; Z79.52 Long term (current) use of systemic steroids; I13.0 Hypertensive heart and chronic kidney disease with heart failure and stage 1 through stage 4 chronic kidney disease, or unspecified chronic kidney disease; E09.22 Drug or chemical induced diabetes mellitus with diabetic chronic kidney disease; N18.2 Chronic kidney disease, stage 2 (mild); I50.32 Chronic diastolic (congestive) heart failure; E03.9 Hypothyroidism, unspecified
CPT/HCPCS: 43763; J2704

== ENCOUNTER → 2021-07-15 08:39 | Outpatient (BNVA) | payer OTHER, BC, SELFPAY | PROVIDERS: PCP Nurse Practitioner; Visit Provider Surgery | DX: Z09 Encounter for follow-up examination after completed treatment for conditions other than malignant neoplasm (principal) | CPT/HCPCS: 99213 ==

== ENCOUNTER → 2021-07-17 14:46 | Outpatient (BNVA) | payer OTHER, SELFPAY | PROVIDERS: PCP Nurse Practitioner; Visit Provider Internal Medicine Cardiovascular Disease | DX: R00.0 Tachycardia, unspecified (principal); R07.9 Chest pain, unspecified; I11.0 Hypertensive heart disease with heart failure; I50.9 Heart failure, unspecified; E11.9 Type 2 diabetes mellitus without complications; Z79.4 Long term (current) use of insulin; K52.9 Noninfective gastroenteritis and colitis, unspecified; F17.290 Nicotine dependence, other tobacco product, uncomplicated | CPT/HCPCS: 99214 ==

== ENCOUNTER 2021-07-18 05:41 | Observation (INO) | payer OTHER, MEDICARE, SELFPAY ==
[2021-07-18] VITALS (11 sets, daily range): BP systolic 133–144; BP diastolic 83–109; PULSE 68–136; RESP 16–24; TEMP 36.7–36.9; O2SAT 94–97; BMI 20.5
--- NOTE | 2021-07-18 | USCV_ITS ---
Ingris Mendosa Age: 66 Gender: F : 1955 Exam Date: 07/18/2021 12:01 Ordering Phys: Darek Barahona DO Technologist: Elfego Acosta Exam Location: [facility] – [place]_ Indication: sublavian guide Findings Unable to attempt access due to subclavian being too deep. No procedure performed. Conclusions Imaging during attempted subclavian access. Dr. Lisbet Urbina DO (Electronically Signed) Final Date: 18 July 2021 13:50 S
--- NOTE | 2021-07-18 05:53 | W.ED.NAVMDI ---
HPI - Nausea/Vomiting/Diarrhea General: Chief complaint: Nausea/Vomiting/Diarrhea Stated complaint: N/V/D Time Seen by Provider: 07/18/21 05:52 Source: patient Mode of arrival: wheelchair Limitations: no limitations History of Present Illness: 66 yp female present [facility] complaints of N/V/D and rapid heart rate. Patient is not had any hematochezia or melena. She has a PEG tube and has not been able to take any of her medications because she cannot get them down the PEG tube has been throwing them out. She usually on metoprolol but has not been getting it in. MD elicited complaint: nausea and vomiting Onset (ago): day(s) (3) Description of vomiting: watery Description of diarrhea: watery Associated nausea: Yes Associated abdominal pain: Yes Location of pain: Epigastric Pain consistency: intermittent Severity: moderate Quality: cramping Exacerbating factors: eating Relieving factors: none Associated symtoms: Reports anxiety, bloating, fatigue, malaise, nausea and weakness; Denies altered mental status, change in vision, chest pain, cough, diaphoresis, decreased urine output, dizziness, dysuria, epistaxis, fecal incontinence, fevers/chills, headache(s), anorexia, myalgias, numbness, palpitations, rash, short of breath, syncope, tenesmus or tinnitus Review of Systems Const: Reports: change in appetite, fatigue and malaise; Denies: fever(s), chills, body aches or diaphoresis Eyes: Denies: change in vision ENMT: Denies: tinnitus or epistaxis Card: Denies: chest pain, palpitations or syncope Resp: Denies: dyspnea, productive cough or non-productive cough GI: Reports: abdominal pain, nausea, vomiting, dysphagia, diarrhea, bloating and GI cramping; Denies: fecal incontinence : Denies: flank pain, difficulty voiding, dysuria, urinary frequency or urinary urgency Skin/Breast: Denies: rash or pruritus Neuro: Denies: headache(s) or dizziness Psych: Reports: anxiety [facility] ED PFSH: Medical History (Updated 07/20/21 @ 00:01 by ) Acute esophagitis Acute hypokalemia Acute hyponatremia Adrenal insufficiency Altered mental status Alzheimer disease Anemia Atrial fibrillation, new onset C. difficile diarrhea Chronic back pain Chronic diarrhea Chronic diastolic CHF (congestive heart failure) Chronic hyponatremia CKD (chronic kidney disease), stage II Depression Diabetic gastroparesis Dysphagia Generalized anxiety disorder GERD (gastroesophageal reflux disease) Headache Hyperlipidemia Hypertension Hyponatremia Hypothyroidism Insulin dependent type 2 diabetes mellitus Lactic acidosis Lactic acidosis Lewy body dementia Major depressive disorder, recurrent severe without psychotic features Morbid obesity Post-traumatic stress disorder, chronic Tachycardia Surgical History H/O esophagogastroduodenoscopy H/O: hysterectomy History of bunionectomy bilateral Hx of cholecystectomy Status post colonoscopy Family History Mother Hypertension Diabetes Father Hypertension Asthma Other CAD (coronary artery disease) Cancer Denies family history of Anesthesia complication Bleeding disorder Social History Smoking and tobacco status: current every day smoker cigars Cigars smoked per week: 35 Years smoked cigars: 53 Cigar details: 1 PPD Quit status (tobacco): has tried quititng Second hand smoke exposure: Yes Smoking risk assessment/counseling performed?: No Alcohol intake: former Former alcohol use details: Reportedly has not had any alcohol since June Household members: spouse Housing: Manufactured/Mobile home Marital status: Current occupational status: retired History of recent travel: No Physical Exam Const: EXAM LIMITATIONS: no altered mental status GENERAL APPEARANCE: cooperative and comfortable ORIENTATION/CONSCIOUSNESS: Yes awake, Yes oriented to person, Yes oriented to place and Yes oriented to time HENMT: COMMON NORMALS: normocephalic, atraumatic, hearing grossly normal bilaterally, external ears normal, EAC's normal, TM's normal bilaterally, Normal nasal mucous membranes and turbinates present, moist oral mucous membranes and oropharynx normal HEAD & SCALP: normocephalic and atraumatic NOSE: Normal nasal mucous membranes and turbinates present EXTERNAL EAR: Yes external ears normal EXTERNAL AUDITORY CANAL: EAC's normal TYMPANIC MEMBRANE: TM's normal bilaterally Eye: COMMON NORMALS: Equal, round and reactive pupils present, EOMs intact bilaterally, conjunctivae normal and no scleral icterus CONJUNCTIVA: Yes conjunctivae normal PUPIL: Yes Equal, round and reactive pupils present Neck/C-Spine: COMMON NORMALS: full ROM, no lymphadenopathy and supple Lymph: LYMPHATIC: no lymphadenopathy noted and no lymphedema noted Resp: COMMON NORMALS: normal respiratory effort, No retractions, No use of accessory muscles and clear to auscultation bilaterally AUSCULTATION: clear to auscultation bilaterally Cardio: COMMON NORMALS: No murmurs present (Cardio) RATE: tachycardic RHYTHM: abnormal rhythm irregularly irregular GI: COMMON NORMALS: Soft to palpation and No hepatosplenomegaly present AUSCULTATION: Yes normoactive bowel sounds PALPATION: Yes Soft to palpation, No Tenderness to palpation present (GI), No Guarding due to palpation present (GI) and Yes No hepatosplenomegaly present Extremity: COMMON NORMALS: normal to inspection, capillary refill normal, no clubbing, cyanosis or edema, no calf tenderness and no pedal edema Neuro: SENSORIUM/ORIENTATION: Yes oriented to person, Yes oriented to place and Yes oriented to time Skin: COMMON NORMALS: no rashes or lesions noted GENERAL SKIN EXAM: no rashes or lesions noted Course Vital Signs: Vital signs: Vital Signs Temperature 98.1 F 07/19/21 11:27 Pulse Rate 83 07/19/21 11:27 Respiratory Rate 20 H 07/19/21 11:27 Blood Pressure 125/83 07/19/21 11:27 Pulse Oximetry 94 07/19/21 11:27 MDM - Nausea/Vomiting/Diarrhea Medical Decision Making New onset atrial fibrillation all suspect she has acute esophagitis with some spasm. Discussed with hospitalist admit IV fluids monitor electrolytes she is mildly hyponatremic. Also monitor for rate control orders written Medical Records I reviewed the patient's medical records. Lab Data I reviewed the patient's lab results. : 07/19/21 10:58 07/19/21 10:58 Radiology Impressions Chest X-Ray 07/18/21 07:12 IMPRESSION: 1. No acute cardiopulmonary disease. 2. Previously described diffuse opacifications on 04/17/2021 have resolved. Abdomen/Pelvis CT 07/18/21 12:42 IMPRESSION: 1. No acute abdominal or pelvic abnormalities. 2. Marked hepatic steatosis and hepatomegaly. 3. Prior cholecystectomy and hysterectomy. 4. PEG tube. 5. Small amount of circumferential fluid surrounding the distal esophagus. Not present on the prior study. 6. Distal colon diverticulosis without acute diverticulitis. Laboratory Results WBC 15.6 10^3/uL (4.0-10.0) H 07/18/21 07:00 Corrected WBC Cancelled 07/18/21 06:12 RBC 3.66 10^6/uL (4.1-5.3) L 07/18/21 07:00 Hgb 12.6 g/dL (11.5-15.3) 07/18/21 07:00 Hct 36.0 % (37.0-47.0) L 07/18/21 07:00 MCV 98.4 fl (81-99) 07/18/21 07:00 MCH 34.4 pg (28.0-34.0) H 07/18/21 07:00 MCHC 35.0 g/dL (30.0-36.0) 07/18/21 07:00 RDW 14.5 % (12.1-15.1) 07/18/21 07:00 Plt Count 362 10^3/cmm (130-400) 07/18/21 07:00 MPV 9.6 fL (7.4-10.4) 07/18/21 07:00 Gran % Cancelled 07/18/21 06:12 Neut % (Auto) 78.2 % 07/18/21 07:00 Lymph % (Auto) 13.8 % 07/18/21 07:00 [place] % (Auto) 7.4 % 07/18/21 07:00 Eos % (Auto) 0.1 % 07/18/21 07:00 Baso % (Auto) 0.1 % 07/18/21 07:00 Neut # (Auto) 12.19 10^3/uL (1.8-7.7) H 07/18/21 07:00 Lymph # (Auto) 2.2 10^3/uL (0.8-4.8) 07/18/21 07:00 [place] # (Auto) 1.2 10^3/uL (0.2-0.9) H 07/18/21 07:00 Eos # (Auto) 0.0 10^3/uL (0.0-0.8) 07/18/21 07:00 Baso # (Auto) 0.0 10^3/uL (0.0-0.1) 07/18/21 07:00 Absolute Gran (auto) Cancelled 07/18/21 06:12 Nucleated RBC % (auto) 0 % 07/18/21 07:00 Nucleated RBCs # 0.0 /100WBC 07/18/21 07:00 Sodium 126 mmol/L (136-145) L 07/18/21 07:00 Potassium 3.1 mmol/L (3.5-5.1) L 07/18/21 07:00 Chloride 86 mmol/L (98-107) L 07/18/21 07:00 Carbon Dioxide 20 mmol/L (22-29) L 07/18/21 07:00 Anion Gap 23.1 (5-19) H 07/18/21 07:00 BUN 2 mg/dL (8-23) L 07/18/21 07:00 Creatinine 0.7 mg/dL (0.5-0.9) 07/18/21 07:00 GFR Calculation 83.5 mL/min (90-130) L 07/18/21 07:00 Glucose 190 mg/dL (65-115) H 07/18/21 07:00 Calculated Osmolality 263 mOsm/kg (285-295) L 07/18/21 07:00 Lactic Acid 4.7 mmol/L (0.5-2.2) H* 07/18/21 09:39 Calcium 7.5 mg/dL (8.5-10.5) L 07/18/21 07:00 Total Bilirubin 0.4 mg/dL (0.15-1.2) 07/18/21 07:00 AST 31 U/L (0-32) 07/18/21 07:00 ALT 20 U/L (0-33) 07/18/21 07:00 Alkaline Phosphatase 105 IU/L (35-105) 07/18/21 07:00 Total Protein 5.3 g/dL (6.6-8.7) L 07/18/21 07:00 Albumin 2.7 g/dL (3.5-5.2) L 07/18/21 07:00 Globulin 2.6 g/dL (1.3-4.6) 07/18/21 07:00 Discharge Plan Discharge Patient Disposition: Admitted As Inpatient Admit Provider: Clinton Daniels Clinical Impression: Atrial fibrillation, new onset, Acute esophagitis, Acute hyponatremia, Acute hypokalemia Condition: Stable Discharge Diet: Diabetic Discharge Activity: Resume usual activity Coding Level of Care Code ED Learning Specialist for Chg Fwd Exam Comprehensive
--- NOTE | 2021-07-18 05:54 | ECG_ITS ---
[facility] Test Date: 2021-07-18 Pat Name: Ingris Mendosa Department: Room: Gender: Female Information Tech: : 1955 Requested By: Darek Villagomez Order Number: [id number] Danny MD: Cecilio Julian M.D. Measurements Intervals [place] Rate: 134 P: [place]: QRS: 26 QRSD: 77 T: 186 QT: 277 QTc: 414 Interpretive Statements ATRIAL FIBRILLATION WITH RAPID VENTRICULAR RESPONSE NONSPECIFIC ST & T-WAVE ABNORMALITY Compared to ECG 04/14/2021 10:36:20 T-wave abnormality now present Sinus tachycardia no longer present ST (T wave) deviation no longer present Electronically Signed On 07-18-2021 17:00:04 CDT by Cecilio Julian M.D. [id number]
[2021-07-18] MEDS: ondansetron 2 mg/ML SDV 2 mL 4 MG IVP (07:07)
[2021-07-18] MEDS: metoprolol tartrate 1 mg/1 mL SDV 5 mL 5 MG IVP (07:08)
[2021-07-18] MEDS: lactated ringers 1,000 ML 999 ML IV ×2 (07:09→10:34)
[2021-07-18 07:10] LABS: Basophils % 0.1 %; Eosinophils % 0.1 %; Hemoglobin 12.6 g/dL (11.5-15.3); Lymphocytes # 2.2 10^3/uL (0.8-4.8); Lymphocytes % 13.8 %; Mean Corpuscular Hemoglobin 34.4 pg (28.0-34.0); Mean Corpuscular Volume 98.4 fl (81-99); Mean Platelet Volume 9.6 fL (7.4-10.4); Monocytes # 1.2 10^3/uL (0.2-0.9); Monocytes % 7.4 %; Neutrophils # 12.19 10^3/uL (1.8-7.7); Neutrophils % 78.2 %; Nucleated Red Blood Cells % 0 %; Platelet Count 362 10^3/cmm (130-400); Red Blood Count 3.66 10^6/uL (4.1-5.3); Red Cell Distribution Width 14.5 % (12.1-15.1); White Blood Count 15.6 10^3/uL (4.0-10.0)
--- NOTE | 2021-07-18 07:12 | XR_ITS ---
WS: [id number] PORTABLE CHEST HISTORY: dyspnea/cough COMPARISON: 04/17/2021 Significant improvement in the lung aeration since the prior examination. No areas of consolidation o r pneumonia. No pleural effusion or pneumothorax. Cardiac size: Normal. Mediastinum/Aorta: Moderate atherosclerotic changes within the aorta. Dorsal column stimulator electr odes are also noted over the mid thoracic spine. Mild osteopenia. XR/XR chest 1V portable [id number] IMPRESSION: 1. No acute cardiopulmonary disease. 2. Previously described diffuse opacifications on 04/17/2021 have resolved.
[2021-07-18 07:27] LABS: Alanine Aminotransferase 20 U/L (0-33); Albumin Level 2.7 g/dL (3.5-5.2); Alkaline Phosphatase 105 IU/L (35-105); Anion Gap 23.1 (5-19); Aspartate Amino Transferase 31 U/L (0-32); Blood Urea Nitrogen 2 mg/dL (8-23); Calcium 7.5 mg/dL (8.5-10.5); Carbon Dioxide 20 mmol/L (22-29); Chloride 86 mmol/L (98-107); Globulin 2.6 g/dL (1.3-4.6); Glomerular Filtration Rate 83.5 mL/min (90-130); Glucose 190 mg/dL (65-115); Osmolality Calculated 263 mOsm/kg (285-295); Potassium 3.1 mmol/L (3.5-5.1); Sodium 126 mmol/L (136-145); Total Bilirubin 0.4 mg/dL (0.15-1.2); Total Protein 5.3 g/dL (6.6-8.7)
[2021-07-18] MEDS: morphine 4 mg/mL SDV 1 mL IVP (07:30)
[2021-07-18] MEDS: metoprolol tartrate 50 mg Tablet PO (10:04)
[2021-07-18] MEDS: acetaminophen 500 mg Tablet 1000 MG PO (10:04)
[2021-07-18 10:21] LABS: Lactic Sepsis W/Reflex 4.7 mmol/L (0.5-2.2)
--- NOTE | 2021-07-18 11:23 | ECG_ITS ---
[facility] Test Date: 2021-07-18 Pat Name: Ingris Mendosa Department: Room: Gender: Female Insurance Job Titles: Gunjan : 1955 Requested By: Darek Villagomez Order Number: [id number] Danny MD: Cecilio Julian M.D. Measurements Intervals [place] Rate: 99 P: 151 CO: 366 QRS: 76 QRSD: 81 T: 116 QT: 358 QTc: 461 Interpretive Statements SINUS RHYTHM Compared to ECG 07/18/2021 06:18:52 Atrial fibrillation no longer present T-wave abnormality still present Electronically Signed On 07-18-2021 17:02:29 CDT by Cecilio Julian M.D. [id number]
[2021-07-18 11:42] LABS: Reflex Lactate Order REFLEX LACTIC ORDERD
--- NOTE | 2021-07-18 11:56 | ANES.PROC ---
Anesthesia Procedures Procedure/Date: 07/18/21 Procedure Narrative: I was asked to place an PIV in the placement after multiple failed attempts in ED. After introducing myself and getting consent from patient I proceed to place PIV. Using sterile prep and using real time US guidance for vessel selection I examined the patient's right arm for a target. Unfortunately there were very no good targets in the R forearm and R upper arm. I did attempt to place a PIV in the R AC at the site of previous attempts, however despite use of US I was unsuccessful. I found the left arm to be of similar anatomy, with evidence of multiple attempts in the left AC but no targets in the upper or lower arm. I did find an appropriate superficial target in the left AC and was able to thread a 22 G PIV under real time US visualization, however it immediately failed due to its superficial location. I asked the patient permission to attempt a foot IV and if she would like me to continue to attempt placement. The patient wanted me to try to proceed in attempting, and the patient agreed to foot PIV placement.a After sterile prep and using US guided visualization of the left sapheonous vein I found no visible target. I did try on the left using manual palpation of the saphenous vein, however I was unsuccessful. I found the right saphenous vein absent on US. After sterile prep I attempted with manual palpation in the superficial veins of the dorsal foot, however I was able to gain access. I apologized to the patient for my lack of success and informed the bedside nurse. After each unsuccessful attempt pressure was held until hemostasis and a dressing was applied if needed.
--- NOTE | 2021-07-18 12:42 | CT_ITS ---
WS: [id number] CT ABDOMEN AND PELVIS NONCONTRAST HISTORY: abd pain TECHNIQUE: Imaging performed through the abdomen and pelvis. Coronal and sagittal reformats are submi tted. All CT scans at [facility] use at least one of these dose optimization techniques: auto mated exposure control; mA and/or kV adjustment per patient size (includes targeted exams where dose is matched to clinical indication); or iterative reconstruction. DLP: 834.82 mGy.cm COMPARISON: 04/20/2021 Lower thorax: Lungs are clear. Heart size is normal. There is a small amount of soft tissue thickenin g and possibly fluid surrounding the distal esophagus. No significant hiatal hernia. Liver: Diffuse marked hepatic steatosis and hepatomegaly. Low-attenuation throughout the liver. No bi le duct dilatation. Gallbladder: Prior cholecystectomy. Pancreas: Diffuse fatty replacement of the pancreas. Spleen: Normal. Adrenal glands: Mild bilateral adrenal gland hyperplasia. Right kidney: No hydronephrosis. Stable low-attenuation nodule lower pole. Left kidney: No obstruction. Aorta: Mild atherosclerosis abdominal aorta with no aneurysm. Heavy calcification continues into the proximal iliac arteries. No free fluid, intraperitoneal air or significant lymphadenopathy. GI tract: A tube present within the stomach. No stomach or small bowel obstruction. Colonic diverticu la without acute diverticulitis. Normal appendix. Abdominal wall: Negative. No hernia. Pelvis: Well-distended urinary bladder. No free fluid. Prior hysterectomy. Osseous structures: Advanced degenerative scoliosis lumbar spine. Bilateral hip joint arthritis, RIGH T greater than LEFT. L5 anterolisthesis by [address]/CT abdomen pelvis wo con [id number] IMPRESSION: 1. No acute abdominal or pelvic abnormalities. 2. Marked hepatic steatosis and hepatomegaly. 3. Prior cholecystectomy and hysterectomy. 4. PEG tube. 5. Small amount of circumferential fluid surrounding the distal esophagus. Not present on the prior study. 6. Distal colon diverticulosis without acute diverticulitis.
[2021-07-18] MEDS: morphine 4 mg/mL SDV 1 mL 2 MG IVP ×3 (13:38→23:08)
[2021-07-18] MEDS: pantoprazole 40 mg SDV 80 MG IVP (15:14)
--- NOTE | 2021-07-18 17:04 | P.HP_ITS ---
Providers/Chief Complaint Admitting Physician: Clinton Daniels MD Primary Care Provider: KATRINA Cash Chief Complaint: N/V/D History of Present Illness Ingris Mendosa is a 66 year old female with past medical history of diabetes, hypothyroidism morbid obesity, adrenal insufficiency was on prednisone Florinef. , chronic hyponatremia, Lewy body disease?, diabetic gastroparesis status post PEG tube placement, came in with chief complaint of intractable vomiting nausea as well as diarrhea started this Thursday, unable to take p.o, according to the patient she was also not able to use her PEG tube , because she was vomiting badly. She is having watery diarrhea 10-15 episodes, has prior history of C. difficile diarrhea. Currently she is denying any fever or chills, cough shortness of breath chest pain. While in the ER she was worked up for above-mentioned complaint: Pertinent imaging studies: CT abdomen pelvis wo con?: No acute abdominal or pelvic pathology,Small amount of circumferential fluid surrounding the distal esophagus. X-ray chest: No effusion no pneumothorax no infiltrate Pertinent labs: WBC 15.6 , H&H 12.6/ 36 , PLT : 362 , serum sodium 126 serum potassium 3.1 BUN/SCR : 2/0.7, lactic acid 4.7 , calcium 7.5. Review of Systems General: Reports: 10 or more systems reviewed and unremarkable except in HPI and below Const: Denies: fever(s), chills, body aches, change in appetite or diaphoresis Card: Denies: palpitations, edema, swelling of feet/ankles, dyspnea on exertion, orthopnea or leg pain with exertion Resp: Denies: dyspnea, productive cough, wheezing or pain on inspiration GI: Reports: abdominal pain, nausea, vomiting and diarrhea; Denies: constipation : Denies: flank pain Musc: Denies: back pain, extremity pain or extremity swelling Neuro: Denies: headache(s), difficulty walking or confusion Medications/Allergies Home Medications Medication Instructions Recorded Confirmed Last Taken Type metformin 1,000 mg tablet 1,000 mg PO BID@02/06/20 07/18/21 07/16/21 History sodium chloride 1 gram tablet 1 g PO BID@03/06/20 07/18/21 07/16/21 History loperamide 2 mg tablet 2 mg PO BID PRN 05/21/20 07/18/21 07/16/21 History levothyroxine 50 mcg tablet 50 mcg PO DAILY@0800 #30 tab 05/23/20 07/18/21 07/16/21 Rx gabapentin 100 mg capsule 200 mg PO BID cap 06/12/20 07/18/21 07/16/21 History methocarbamol 750 mg tablet 750 mg PO TID PRN 06/27/20 07/18/21 07/16/21 History nutrition tx glu 1 ea FEEDING TUBE .UP TO 5 TIMES A 07/04/20 07/18/21 07/16/21 History intol,lac-free,soy-fiber 0.08 DAY PRN gram-1.5 kcal/mL liquid (Glucerna 1.5 Warner) buspirone 15 mg tablet 15 mg PO BID #60 tab 07/17/20 07/18/21 07/16/21 Rx metoprolol tartrate 50 mg tablet 25 mg PO TID tab 11/06/20 07/18/21 07/16/21 History pantoprazole 40 mg tablet,delayed 40 mg PO QAM 11/06/20 07/18/21 07/16/21 History release promethazine 25 mg tablet 25 mg PO TID PRN 11/06/20 07/18/21 07/16/21 History duloxetine 20 mg capsule,delayed 20 mg PO BID 02/06/21 07/18/21 07/16/21 History release mirtazapine 45 mg tablet 45 mg PO BEDTIME 02/11/21 07/18/21 07/16/21 History sucralfate 1 gram tablet 1 g PO BID 02/11/21 07/18/21 07/16/21 History acetaminophen 325 mg tablet 650 - 975 mg PO QID PRN 04/05/21 07/18/21 07/16/21 History potassium chloride 20 mEq 10 meq PO DAILY PRN 04/05/21 07/18/21 07/16/21 History tablet,extended release ondansetron HCl 4 mg tablet 4 mg PO Q6H PRN #10 tab 04/07/21 07/18/21 07/16/21 Rx hydrocodone 5 mg-acetaminophen 325 1 tab PO Q6H PRN #20 tab 05/01/21 07/18/21 07/16/21 Rx mg tablet prednisone 1 mg tablet 2.5 mg PO QAM tab 05/08/21 07/18/21 07/16/21 History metoclopramide HCl 10 mg tablet 5 mg PO DAILY 06/24/21 07/18/21 07/16/21 History erythromycin 5 mg/gram (0.5 %) eye 0.5 inch OPHTHALMIC (EYE) QID 7 07/06/21 07/18/21 07/16/21 Rx ointment (3.5 gram tube) Days #3.5 g insulin aspart U-100 100 unit/mL See Rx Instructions .ROUTE 07/17/21 07/18/21 07/16/21 History (3 mL) subcutaneous pen (Novolog .COMPLEX ml Flexpen U-100 Insulin aspart) Allergies Allergy/AdvReac Type Severity Reaction Status Date / Time No Known Allergies Allergy Verified 07/18/21 09:26 PFSH Acute PFSH: Medical History (Updated 07/18/21 @ 17:21 by Clinton Daniels MD) Adrenal insufficiency Altered mental status Alzheimer disease Anemia C. difficile diarrhea Chronic back pain Chronic diarrhea Chronic diastolic CHF (congestive heart failure) Chronic hyponatremia CKD (chronic kidney disease), stage II Depression Diabetic gastroparesis Dysphagia Generalized anxiety disorder GERD (gastroesophageal reflux disease) Headache Hyperlipidemia Hypertension Hyponatremia Hypothyroidism Insulin dependent type 2 diabetes mellitus Lactic acidosis Lewy body dementia Major depressive disorder, recurrent severe without psychotic features Morbid obesity Post-traumatic stress disorder, chronic Surgical History H/O esophagogastroduodenoscopy H/O: hysterectomy History of bunionectomy bilateral Hx of cholecystectomy Status post colonoscopy Family History Mother Hypertension Diabetes Father Hypertension Asthma Other CAD (coronary artery disease) Cancer Denies family history of Anesthesia complication Bleeding disorder Social History Smoking and tobacco status: current every day smoker cigars Cigars smoked per week: 35 Years smoked cigars: 53 Cigar details: 1 PPD Quit status (tobacco): has tried quititng Second hand smoke exposure: Yes Smoking risk assessment/counseling performed?: No Alcohol intake: former Former alcohol use details: Reportedly has not had any alcohol since June Household members: spouse Housing: Manufactured/Mobile home Marital status: Current occupational status: retired History of recent travel: No Vitals/I&O/Wt Last Vital Signs Temp 98.5 F 07/18/21 05:54 Pulse 89 07/18/21 15:17 Resp 17 07/18/21 15:17 BP 144/109 07/18/21 05:54 Pulse Ox 95 07/18/21 15:17 07/18/21 07/18/21 07/18/21 06:59 14:59 22:59 Intake Total 1999 Balance 1999 Weight last 48 hrs Weight 52.617 kg Physical Exam Const: COMMON NORMALS: patient oriented x3 HENMT: COMMON NORMALS: normocephalic and atraumatic HEAD & SCALP: normocephalic and atraumatic Eye: GENERAL EYE: appearance normal, both eyes and all related structures Chest: COMMONS NORMALS: normal inspection of the chest and normal palpation of entire chest wall CHEST: Yes Symmetrical chest wall rise Resp: COMMON NORMALS: normal respiratory effort, No retractions, No use of accessory muscles and clear to auscultation bilaterally EFFORT & INSPECTION: Yes symmetric chest movement AUSCULTATION: clear to auscultation bilaterally Cardio: COMMON NORMALS: regular rate, regular rhythm, S1 normal heart sound pr esent, S2 normal heart sound present, No gallops present (Cardio), No murmurs present (Cardio), No rub (Cardio) and Peripheral pulses 2+ throughout RATE: regular rate RHYTHM: regular rhythm HEART SOUNDS: S1 normal heart sound present and S2 normal heart sound present PERIPHERAL PULSES: Peripheral pulses 2+ throughout GI: COMMON NORMALS: Normal to inspection, nondistended, normoactive bowel sounds present, Soft to palpation, non-tender, No hepatosplenomegaly present and no masses AUSCULTATION: Yes normoactive bowel sounds PALPATION: Yes Soft to palpation and Yes No hepatosplenomegaly present RECTAL EXAM: deferred Extremity: COMMON NORMALS: no clubbing, cyanosis or edema and no pedal edema Neuro: COMMON NORMALS: patient oriented x3 Data : 07/18/21 07:00 07/18/21 07:00 CT Abd/Pel: Radiologist's impression: 1.? No acute abdominal or pelvic abnormalities. 2.? Marked hepatic steatosis and hepatomegaly. 3.? Prior cholecystectomy and hysterectomy. 4.? PEG tube. 5.? Small amount of circumferential fluid surrounding the distal esophagus. Not present on the prior study. 6.? Distal colon diverticulosis without acute diverticulitis. ? A&P Assessment and plan (1) Tachycardia: Status: Acute (2) Acute esophagitis: Status: Acute (3) Acute hyponatremia: Status: Acute (4) Acute hypokalemia: Status: Acute (5) Hypertension: Status: Chronic Qualifiers: Hypertension type: primary hypertension Qualified Code(s): I10 - Essential (primary) hypertension (6) Morbid obesity: Status: Acute (7) Insulin dependent type 2 diabetes mellitus: Status: Chronic (8) Lactic acidosis: Status: Acute Plan 66 year old female with past medical history of diabetes, hypothyroidism morbid obesity, adrenal insufficiency was on prednisone Florinef., chronic hyponatremia, Lewy body disease?, diabetic gastroparesis status post PEG tube placement, came in with chief complaint of intractable vomiting nausea as well as diarrhea. Assessment: Hypovolemic hyponatremia Acute hypokalemia Esophagitis Severe dehydration Intractable nausea and vomiting secondary to diabetic gastroparesis Hypothyroidism Diabetes History of adrenal insufficiency Lactic acidosis Plan: IV hydration with normal saline at 100 cc an hour Monitor BMP Monitor replace potassium Zofran and Reglan for nausea vomiting Currently n.p.o., as patient thinks he is not ready to eat or drink, currently she also do not want to use her PEG tube levothyroxine 50MCG PO DAILY LDSSI Monitor fingerstick glucose Protonix 40 mg p.o. day Continue metoprolol for history of sinus tachycardia CODE STATUS: Full code DVT prophylaxis: On Lovenox Attestations Medical Necessity Statement*: Patient needs to be in hospital for management of, intractable vomiting, nausea ,diarrhea, dehydration hypokalemia hyponatremia, inability to take p.o, need for IV hydration. Anticipated length of stay greater than 2 midnights Time Spent in Patient Care: Greater than 35 minutes (>than 50% of time spent in counselling and/or direct pt care on unit) . Coding Level of Care Code Acute [employer] [facility] Kristyn Diagnoses Tachycardia R00.0 Acute esophagitis K20.90 Acute hyponatremia E87.1 Acute hypokalemia E87.6 Hypertension I10 Hypertension type: primary hypertension Morbid obesity E66.01 Insulin dependent type 2 diabetes mellitus E11.9; Z79.4 Lactic acidosis E87.2
[2021-07-18 17:14] LABS: Urine Appearance Hazy (CLEAR); Urine Color Yellow (Yellow); pH Urine 6.5 (5-7)
[2021-07-18 17:15] LABS: Add Urine Microscopic? YES; Bilirubin Urine Neg (Negative); Blood Urine Neg (Negative); Glucose Urine UA Norm (Normal); Ketones Urine Negative (Negative); Leukocyte Esterase Urine Negative (Negative); Nitrate Urine Negative (Negative); Protein Urine Neg (Negative); Specific Gravity, Urine 1.005 (1.005-1.030); Urobilinogen Urine Neg (Negative)
[2021-07-18 17:30] LABS: Add Urine Culture? No; Bacteria Urine 1+ /hpf; RBC Urine RARE /hpf (0-2); WBC Urine RARE /hpf (0-5)
[2021-07-18] MEDS: enoxaparin 40 mg/0.4 mL Syringe SUBCUT (18:18)
[2021-07-18] MEDS: BuSPIRONE 10 mg Tablet 15 MG PO (18:18)
[2021-07-18] MEDS: gabapentin 100 mg Capsule 200 MG PO (18:20)
[2021-07-18] MEDS: duloxetine 20 mg Capsule PO (18:20)
[2021-07-18] MEDS: ondansetron 4 MG Tablet PO ×2 (18:20→23:10)
[2021-07-18] MEDS: sodium chlor 0.9% + KCl 20 mEq 20 MEQ/1,000 ML BAG 100 MEQ IV (18:22)
[2021-07-18] MEDS: lidocaine 1% 5 ML in potassium chloride premix 100 ML 25 ML IV (18:22)
[2021-07-18 18:43] LABS: Glucose Point of Care 137 mg/dL (70-110)
[2021-07-18] MEDS: mirtazapine 15 mg Tablet 45 MG PO (20:54)
[2021-07-18] MEDS: acetaminophen 325 mg Tablet 650 MG PO (20:55)
[2021-07-18 21:34] LABS: Glucose Point of Care 141 mg/dL (70-110)
[2021-07-18] MEDS: metoprolol tartrate 25 mg Tablet PO (22:19)
[2021-07-19] VITALS (7 sets, daily range): BP systolic 106–143; BP diastolic 65–88; PULSE 74–91; RESP 16–20; TEMP 36.3–36.8; O2SAT 92–98
[2021-07-19] MEDS: morphine 4 mg/mL SDV 1 mL 2 MG IVP (03:27)
[2021-07-19] MEDS: sodium chlor 0.9% + KCl 20 mEq 20 MEQ/1,000 ML BAG 100 MEQ IV (03:33)
[2021-07-19] MEDS: ondansetron 4 MG Tablet PO (06:37)
[2021-07-19] MEDS: predniSONE 5 mg Tablet 2.5 MG PO (06:39)
[2021-07-19] MEDS: pantoprazole DR 40 mg Tablet PO (06:39)
[2021-07-19 06:42] LABS: Glucose Point of Care 122 mg/dL (70-110)
[2021-07-19] MEDS: morphine 4 mg/mL SDV 1 mL 2 MG IM (10:00)
[2021-07-19] MEDS: gabapentin 100 mg Capsule 200 MG PO (10:42)
[2021-07-19] MEDS: levothyroxine 50 mcg Tablet PO (10:42)
[2021-07-19] MEDS: metoclopramide 10 mg Tablet 5 MG PO (10:42)
[2021-07-19] MEDS: BuSPIRONE 10 mg Tablet 15 MG PO (10:42)
[2021-07-19] MEDS: metoprolol tartrate 25 mg Tablet PO (10:43)
[2021-07-19] MEDS: duloxetine 20 mg Capsule PO (10:43)
[2021-07-19] MEDS: potassium chloride ER 10 mEq Tablet PO (10:43)
[2021-07-19 11:18] LABS: Basophils % 0.2 %; Eosinophils % 0.1 %; Hematocrit 35.1 % (37.0-47.0); Lymphocytes % 9.5 %; Mean Corpuscular HGB Conc 34.2 g/dL (30.0-36.0); Mean Corpuscular Hemoglobin 35.2 pg (28.0-34.0); Mean Corpuscular Volume 102.9 fl (81-99); Mean Platelet Volume 10.1 fL (7.4-10.4); Monocytes # 0.5 10^3/uL (0.2-0.9); Monocytes % 4.6 %; Neutrophils # 8.65 10^3/uL (1.8-7.7); Neutrophils % 85.2 %; Nucleated Red Blood Cells % 0 %; Platelet Count 327 10^3/cmm (130-400); Red Blood Count 3.41 10^6/uL (4.1-5.3); White Blood Count 10.2 10^3/uL (4.0-10.0)
[2021-07-19 11:27] LABS: Lactic Sepsis W/Reflex 2.4 mmol/L (0.5-2.2)
[2021-07-19 11:33] LABS: Albumin Level 2.5 g/dL (3.5-5.2); Alkaline Phosphatase 98 IU/L (35-105); Blood Urea Nitrogen 3 mg/dL (8-23); Calcium 6.9 mg/dL (8.5-10.5); Carbon Dioxide 20 mmol/L (22-29); Chloride 96 mmol/L (98-107); Globulin 2.6 g/dL (1.3-4.6); Glomerular Filtration Rate 123.1 mL/min (90-130); Glucose 176 mg/dL (65-115); Osmolality Calculated 267 mOsm/kg (285-295); Sodium 128 mmol/L (136-145); Total Bilirubin 0.6 mg/dL (0.15-1.2); Total Protein 5.1 g/dL (6.6-8.7)
[2021-07-19 11:37] LABS: Alanine Aminotransferase 19 U/L (0-33); Anion Gap 16.8 (5-19); Aspartate Amino Transferase 36 U/L (0-32); Potassium 4.8 mmol/L (3.5-5.1)
--- NOTE | 2021-07-19 11:51 | PC.NURSE ---
Dr. Daniels aware that pt's IV in left neck infiltrated and pt no longer has IV access.
--- NOTE | 2021-07-19 12:35 | P.DS_ITS ---
Discharge Providers Date of Admission: 07/18/21 15:01 Date of Discharge: July 19, 2021 Attending Provider at Admission: Clinton Daniels MD Attending Provider at Discharge: Clinton Daniels MD Primary Care Provider: KATRINA Cash Diagnoses at Discharge Discharge Diagnosis (1) Tachycardia: Status: Acute (2) Acute esophagitis: Status: Acute (3) Acute hyponatremia: Status: Acute (4) Acute hypokalemia: Status: Acute (5) Hypertension: Status: Chronic Qualifiers: Hypertension type: primary hypertension Qualified Code(s): I10 - Essential (primary) hypertension (6) Morbid obesity: Status: Acute (7) Insulin dependent type 2 diabetes mellitus: Status: Chronic (8) Lactic acidosis: Status: Acute Reason for Visit Reason for Visit: N/V/D Hospital Course Hospital Course 66 year old female with past medical history of diabetes, hypothyroidism morbid obesity, adrenal insufficiency was on prednisone?Florinef., chronic hyponatremia,?Lewy body disease?, diabetic gastroparesis status post PEG tube placement, came in with chief complaint of intractable vomiting nausea as well as diarrhea. EKG on arrival was suggestive of sinus tachycardia, initial thoughts were possible A. fib, close review of her EKG suggested sinus tachycardia, responded to metoprolol IV. She was admitted for the management of intractable nausea vomiting likely secondary to longstanding diabetic gastroparesis, hypovolemic hyponatremia, severe dehydration, hypokalemia, lactic acidosis, kept on IV hydration overnight, IV Zofran, electrolyte abnormality corrections were undertaken, at the time of discharge patient was tolerating p.o. intake, nausea vomiting had subsided, she was hemodynamically stable. She has been advised to keep herself well-hydrated, continue with diabetic diet, She was discharged home, on antiemetics, she will continue to follow with her primary care physician as an outpatient. Physical Exam Const: COMMON NORMALS: patient oriented x3 HENMT: COMMON NORMALS: normocephalic and atraumatic HEAD & SCALP: normocephalic and atraumatic Eye: GENERAL EYE: appearance normal, both eyes and all related structures Chest: COMMONS NORMALS: normal inspection of the chest and normal palpation of entire chest wall CHEST: Yes Symmetrical chest wall rise Resp: COMMON NORMALS: normal respiratory effort, No retractions, No use of accessory muscles and clear to auscultation bilaterally EFFORT & INSPECTION: Yes symmetric chest movement AUSCULTATION: clear to auscultation bilaterally Cardio: COMMON NORMALS: regular rate, regular rhythm, S1 normal heart sound present, S2 normal heart sound present, No gallops present (Cardio), No murmurs present (Cardio), No rub (Cardio) and Peripheral pulses 2+ throughout RATE: regular rate RHYTHM: regular rhythm HEART SOUNDS: S1 normal heart sound present and S2 normal heart sound present PERIPHERAL PULSES: Peripheral pulses 2+ throughout GI: COMMON NORMALS: Normal to inspection, nondistended, normoactive bowel sounds present, Soft to palpation, non-tender, No hepatosplenomegaly present and no masses AUSCULTATION: Yes normoactive bowel sounds PALPATION: Yes Soft to palpation and Yes No hepatosplenomegaly present RECTAL EXAM: deferred Extremity: COMMON NORMALS: no clubbing, cyanosis or edema and no pedal edema Neuro: COMMON NORMALS: patient oriented x3 Discharge Data Studies Completed and Pending Completed Studies During Hospitalization Category Date Time Status CT abdomen pelvis wo con [id number] Stat Cat Scan 07/18/21 12:42 Completed XR chest 1V portable [id number] Stat Exams 07/18/21 07:12 Completed CV guide vascular access [id number] Urgent Ultrasound 07/18/21 Completed Pending at discharge Category Date Time Status Clostridioides Difficile PCR Routine Lab 07/18/21 17:20 Uncollected Complete Blood Count w/Auto AM LABS Lab 07/20/21 04:00 Ordered Complete Blood Count w/Auto AM LABS Lab 07/21/21 04:00 Ordered Comprehensive Metabolic Panel AM LABS Lab 07/20/21 04:00 Ordered Comprehensive Metabolic Panel AM LABS Lab 07/21/21 04:00 Ordered Stool Culture, Bacterial [Enteric Bacterial Panel by Lab 07/18/21 17:20 Uncollected PCR] Routine stool Ova and Parasite [Enteric Parasite Panel by PCR] Lab 07/18/21 17:20 Uncollected Routine Radiology Impressions Chest X-Ray 07/18/21 07:12 IMPRESSION: 1. No acute cardiopulmonary disease. 2. Previously described diffuse opacifications on 04/17/2021 have resolved. Abdomen/Pelvis CT 07/18/21 12:42 IMPRESSION: 1. No acute abdominal or pelvic abnormalities. 2. Marked hepatic steatosis and hepatomegaly. 3. Prior cholecystectomy and hysterectomy. 4. PEG tube. 5. Small amount of circumferential fluid surrounding the distal esophagus. Not present on the prior study. 6. Distal colon diverticulosis without acute diverticulitis. Laboratory Results WBC 10.2 10^3/uL (4.0-10.0) H 07/19/21 10:58 Corrected WBC Cancelled 07/18/21 06:12 RBC 3.41 10^6/uL (4.1-5.3) L 07/19/21 10:58 Hgb 12.0 g/dL (11.5-15.3) 07/19/21 10:58 Hct 35.1 % (37.0-47.0) L 07/19/21 10:58 MCV 102.9 fl (81-99) H 07/19/21 10:58 MCH 35.2 pg (28.0-34.0) H 07/19/21 10:58 MCHC 34.2 g/dL (30.0-36.0) 07/19/21 10:58 RDW 15.0 % (12.1-15.1) 07/19/21 10:58 Plt Count 327 10^3/cmm (130-400) 07/19/21 10:58 MPV 10.1 fL (7.4-10.4) 07/19/21 10:58 Gran % Cancelled 07/18/21 06:12 Neut % (Auto) 85.2 % 07/19/21 10:58 Lymph % (Auto) 9.5 % 07/19/21 10:58 [place] % (Auto) 4.6 % 07/19/21 10:58 Eos % (Auto) 0.1 % 07/19/21 10:58 Baso % (Auto) 0.2 % 07/19/21 10:58 Neut # (Auto) 8.65 10^3/uL (1.8-7.7) H 07/19/21 10:58 Lymph # (Auto) 1.0 10^3/uL (0.8-4.8) 07/19/21 10:58 [place] # (Auto) 0.5 10^3/uL (0.2-0.9) 07/19/21 10:58 Eos # (Auto) 0.0 10^3/uL (0.0-0.8) 07/19/21 10:58 Baso # (Auto) 0.0 10^3/uL (0.0-0.1) 07/19/21 10:58 Absolute Gran (auto) Cancelled 07/18/21 06:12 Nucleated RBC % (auto) 0 % 07/19/21 10:58 Nucleated RBCs # 0.0 /100WBC 07/19/21 10:58 Sodium 128 mmol/L (136-145) L 07/19/21 10:58 Potassium 4.8 mmol/L (3.5-5.1) 07/19/21 10:58 Chloride 96 mmol/L (98-107) L 07/19/21 10:58 Carbon Dioxide 20 mmol/L (22-29) L 07/19/21 10:58 Anion Gap 16.8 (5-19) 07/19/21 10:58 BUN 3 mg/dL (8-23) L 07/19/21 10:58 Creatinine 0.5 mg/dL (0.5-0.9) 07/19/21 10:58 GFR Calculation 123.1 mL/min (90-130) 07/19/21 10:58 Glucose 176 mg/dL (65-115) H 07/19/21 10:58 POC Glucose 122 mg/dL (70-110) H 07/19/21 06:16 Calculated Osmolality 267 mOsm/kg (285-295) L 07/19/21 10:58 Lactic Acid 2.4 mmol/L (0.5-2.2) H 07/19/21 10:58 Calcium 6.9 mg/dL (8.5-10.5) L 07/19/21 10:58 Total Bilirubin 0.6 mg/dL (0.15-1.2) 07/19/21 10:58 AST 36 U/L (0-32) H 07/19/21 10:58 ALT 19 U/L (0-33) 07/19/21 10:58 Alkaline Phosphatase 98 IU/L (35-105) 07/19/21 10:58 Total Protein 5.1 g/dL (6.6-8.7) L 07/19/21 10:58 Albumin 2.5 g/dL (3.5-5.2) L 07/19/21 10:58 Globulin 2.6 g/dL (1.3-4.6) 07/19/21 10:58 Urine Color Yellow (Yellow) 07/18/21 16:25 Urine Appearance Hazy (CLEAR) A 07/18/21 16:25 Urine pH 6.5 (5-7) 07/18/21 16:25 Ur Specific [place] 1.005 (1.005-1.030) 07/18/21 16:25 Urine Protein Neg (Negative) 07/18/21 16:25 Urine Glucose (UA) Norm (Normal) 07/18/21 16:25 Urine Ketones Negative (Negative) 07/18/21 16:25 Urine Blood Neg (Negative) 07/18/21 16:25 Urine Nitrate Negative (Negative) 07/18/21 16:25 Urine Bilirubin Neg (Negative) 07/18/21 16:25 Urine Urobilinogen Neg mg/dL (Negative) 07/18/21 16:25 Ur Leukocyte Esterase Negative (Negative) 07/18/21 16:25 Urine RBC Rare /hpf (0-2) 07/18/21 16:25 Urine WBC Rare /hpf (0-5) 07/18/21 16:25 Ur Squamous Epith Cells 10-15 /hpf (0-5) H 07/18/21 16:25 Amorphous Sediment Not Reportable 07/18/21 16:25 Urine Bacteria 1+ /hpf (NONE) H 07/18/21 16:25 Vitals Last Vital Signs Temp 98.1 F 07/19/21 11:27 Pulse 83 07/19/21 11:27 Resp 20 H 07/19/21 11:27 BP 125/83 07/19/21 11:27 Pulse Ox 94 07/19/21 11:27 Discharge Plan Discharge Patient Disposition: Home Condition: Stable Prescriptions: Continued gabapentin 100 mg capsule 200 mg PO BID 0RF pantoprazole 40 mg tablet,delayed release (DR/EC) 40 mg PO QAM 0RF metoprolol tartrate 50 mg tablet 25 mg PO TID 0RF duloxetine 20 mg capsule,delayed release(DR/EC) 20 mg PO BID 0RF sucralfate 1 gram tablet 1 g PO BID 0RF mirtazapine 45 mg tablet 45 mg PO BEDTIME 0RF insulin aspart U-100 [Novolog Flexpen U-100 Insulin] 100 unit/mL (3 mL) insulin pen See Rx Instructions .ROUTE .COMPLEX 0RF Rx Instructions: SLIDING SCALE as needed when blood sugar is over 200 prednisone 1 mg tablet 2.5 mg PO QAM 0RF erythromycin 5 mg/gram (0.5 %) ointment 0.5 inch ophthalmic (eye) QID 7 Days Qty: 3.5 0RF Glucerna 1.5 Warner 0.08-1.5 gram-kcal/mL Liquid 1 ea feeding tube .UP TO 5 TIMES A DAY PRN (Reason: malnutrition) 0RF buspirone 15 mg tablet 15 mg PO BID Qty: 60 0RF acetaminophen 325 mg tablet 650 - 975 mg PO QID PRN (Reason: Pain) 0RF potassium chloride 20 mEq Tablet Extended Release 10 meq PO DAILY PRN (Reason: potassium deficiency ) 0RF metformin 1,000 mg Tablet 1,000 mg PO BID@09,20 0RF levothyroxine 50 mcg Tablet 50 mcg PO DAILY@0800 Qty: 30 0RF methocarbamol 750 mg tablet 750 mg PO TID PRN (Reason: Muscle Spasm) 0RF hydrocodone-acetaminophen 5-325 mg tablet 1 tab PO Q6H PRN (Reason: pain) Qty: 20 0RF sodium chloride 1 gram tablet 1 g PO BID@09,20 15 Days Qty: 30 0RF ondansetron HCl 4 mg Tablet 4 mg PO Q6H PRN (Reason: Nausea And Vomiting) 15 Days Qty: 30 0RF loperamide 2 mg Tablet 2 mg PO BID PRN (Reason: Diarrhea) 15 Days Qty: 15 0RF promethazine 25 mg tablet 25 mg PO TID PRN (Reason: Nausea) 15 Days Qty: 30 0RF metoclopramide HCl 10 mg tablet 5 mg PO DAILY 14 Days Qty: 14 0RF Discharge Orders: Discharge Order (Routine); Ordered 07/19/21 Ordered By: Clinton Daniels Referrals: Thu Flores FNP [Primary Care Provider] - 1 week Discharge Diet: Diabetic Discharge Activity: Resume usual activity Patient Instructions: Opioid Safety Discharge Attestations Time Spent in Discharge Care*: less than 30 min Status at Discharge: Cognitive status at discharge: cognitively intact , Behavioral status at discharge: cooperative , Quality Metrics Clinical Quality Measures [ No reported AMI, CVA or VTE this stay] Coding Level of Care Code Acute Chg FW DC note Exam Comprehensive Diagnoses Tachycardia R00.0 Acute esophagitis K20.90 Acute hyponatremia E87.1 Acute hypokalemia E87.6 Hypertension I10 Hypertension type: primary hypertension Morbid obesity E66.01 Insulin dependent type 2 diabetes mellitus E11.9; Z79.4 Lactic acidosis E87.2
[2021-07-19 12:38] LABS: Glucose Point of Care 171 mg/dL (70-110)
[2021-07-19 12:54] LABS: Reflex Lactate Order REFLEX LACTIC ORDERD
[2021-07-19] MEDS: insulin lispro 100 unit/1 mL SUBCUT (13:03)
[2021-07-19 14:55] LABS: Lactic Acid level (Lactate) 4.8 mmol/L (0.5-2.2)
== END 2021-07-19 14:25 | disposition home or self-care (01) ==
LOC: ER 14:59 → MEDSURG 17:06
PROVIDERS: Admitting Provider Internal Medicine; Emergency Provider Family Medicine; PCP Nurse Practitioner; Visit Provider Internal Medicine
DX: K31.84 Gastroparesis (principal); E11.43 Type 2 diabetes mellitus with diabetic autonomic (poly)neuropathy; K20.90 Esophagitis, unspecified without bleeding; E87.1 Hypo-osmolality and hyponatremia; R00.0 Tachycardia, unspecified; E86.0 Dehydration; E87.6 Hypokalemia; E87.2 Acidosis; Z79.82 Long term (current) use of aspirin; Z79.84 Long term (current) use of oral hypoglycemic drugs; Z93.1 Gastrostomy status; F17.290 Nicotine dependence, other tobacco product, uncomplicated; Z79.4 Long term (current) use of insulin; K21.9 Gastro-esophageal reflux disease without esophagitis; E03.9 Hypothyroidism, unspecified; F32.A Depression, unspecified; F41.9 Anxiety disorder, unspecified; I11.0 Hypertensive heart disease with heart failure; I50.32 Chronic diastolic (congestive) heart failure; G31.83 Neurocognitive disorder with Lewy bodies; F02.80 Dementia in other diseases classified elsewhere, unspecified severity, without behavioral disturbance, psychotic disturbance, mood disturbance, and anxiety
CPT/HCPCS: 36415; 36416; 71045; 74176; 76937; 80053; 81001; 82962; 83605; 85025; 93005; 96361; 96372; 96374; 96375; 99285; C9113; G0378; J1650; J1815; J2270; J2405; J3480; J3490; J7512; J8597; Q0162

== ENCOUNTER 2021-08-03 03:04 | Emergency (ER) | payer OTHER, MEDICARE, SELFPAY ==
[2021-08-03] VITALS (7 sets, daily range): BP systolic 140–161; BP diastolic 84–106; PULSE 100–120; RESP 18–20; O2SAT 96–99; BMI 20.3
[2021-08-03] MEDS: ondansetron 2 mg/ML SDV 2 mL 4 MG IVP (03:48)
[2021-08-03] MEDS: morphine 4 mg/mL SDV 1 mL IVP (03:48)
[2021-08-03] MEDS: sodium chloride 0.9% 500 ML IV (03:49)
[2021-08-03] MEDS: lidocaine 2% viscous 15 ML, aluminum-mag hydrox-simethicon 30 ML, sucralfate oral liq 1 GM PO (03:49)
[2021-08-03 03:52] LABS: Basophils % 0.3 %; Eosinophils % 0.3 %; Hematocrit 36.9 % (37.0-47.0); Hemoglobin 13.2 g/dL (11.5-15.3); Lymphocytes # 2.2 10^3/uL (0.8-4.8); Lymphocytes % 18.9 %; Mean Corpuscular HGB Conc 35.8 g/dL (30.0-36.0); Mean Corpuscular Hemoglobin 36.1 pg (28.0-34.0); Mean Corpuscular Volume 100.8 fl (81-99); Mean Platelet Volume 9.6 fL (7.4-10.4); Monocytes # 0.9 10^3/uL (0.2-0.9); Monocytes % 7.3 %; Neutrophils # 8.43 10^3/uL (1.8-7.7); Neutrophils % 72.7 %; Nucleated Red Blood Cells % 0 %; Platelet Count 388 10^3/cmm (130-400); Red Blood Count 3.66 10^6/uL (4.1-5.3); Red Cell Distribution Width 14.6 % (12.1-15.1); White Blood Count 11.6 10^3/uL (4.0-10.0)
[2021-08-03 04:13] LABS: Alanine Aminotransferase 21 U/L (0-33); Albumin Level 2.9 g/dL (3.5-5.2); Alkaline Phosphatase 156 IU/L (35-105); Anion Gap 21.9 (5-19); Aspartate Amino Transferase 37 U/L (0-32); Blood Urea Nitrogen 3 mg/dL (8-23); Carbon Dioxide 22 mmol/L (22-29); Chloride 88 mmol/L (98-107); Creatinine Clr Calc Pharmacy 56.3461; Globulin 3.2 g/dL (1.3-4.6); Glomerular Filtration Rate 99.7 mL/min (90-130); Glucose 186 mg/dL (65-115); Lipase 7 U/L (13-60); Osmolality Calculated 269 mOsm/kg (285-295); Sodium 129 mmol/L (136-145); Total Bilirubin 0.6 mg/dL (0.15-1.2); Total Protein 6.1 g/dL (6.6-8.7)
[2021-08-03 04:19] LABS: Potassium 2.9 mmol/L (3.5-5.1)
[2021-08-03] MEDS: metoclopramide 5 mg/mL SDV 2 mL 10 MG IVP ×2 (04:32→05:36)
[2021-08-03] MEDS: potassium chloride oral liq 20 mEq/15 mL UDC 60 MEQ PO (04:33)
[2021-08-03 04:42] LABS: Add Urine Microscopic? NO; Charge for UA Resulting for Rev
[2021-08-03 04:51] LABS: Bilirubin Urine Neg (Negative); Blood Urine Neg (Negative); Glucose Urine UA Norm (Normal); Ketones Urine Negative (Negative); Leukocyte Esterase Urine Negative (Negative); Nitrate Urine Negative (Negative); Protein Urine Neg (Negative); Specific Gravity, Urine 1.005 (1.005-1.030); Urine Appearance Clear (CLEAR); Urine Color Yellow (Yellow); Urobilinogen Urine Norm (Negative); pH Urine 7 (5-7)
--- NOTE | 2021-08-03 05:03 | ED_ITS ---
HPI - Abdominal Pain General: Chief Complaint: Abdominal Pain Stated Complaint: abd pain Time Seen by Provider: 08/03/21 03:11 History of Present Illness: 66-year-old female presenting with epigastric abdominal pain and vomiting. She has vomited multiple times in the past 24 hours. She has a PEG tube in place, and has been tolerating 100 mL of fluid at a time, but nothing orally. Everything her has given her including 8 mg of Zofran, promethazine, and 1 hydrocodone pill for pain have come back up she says. She denies any fever. No diarrhea. She has a history of multiple medical problems including Lewy body dementia, diabetes, gastroparesis, hypertension, hypothyroidism, and others MD elicited complaint: abdominal pain Pertinent past history: other Onset (ago): hour(s) Pain Consistency: constant Location: Epigastric Quality: stabbing and aching Radiation: none Migration to: no migration Relieving factors: eating Associated Symptoms: Reports anorexia, chills, dyspepsia, nausea, poor appetite and vomiting; Denies constipation, diarrhea, fever(s) and hematochezia Review of Systems Const: Reports: chills; Denies: fever(s) ENMT: Reports: throat pain (After throwing up) Card: Denies: chest pain or palpitations Resp: Reports: dyspnea GI: Reports: nausea and vomiting; Denies: diarrhea, constipation or hematochezia PFS ED PFSH: Medical History Acute esophagitis Acute hypokalemia Acute hyponatremia Adrenal insufficiency Altered mental status Alzheimer disease Anemia Atrial fibrillation, new onset C. difficile diarrhea Chronic back pain Chronic diarrhea Chronic diastolic CHF (congestive heart failure) Chronic hyponatremia CKD (chronic kidney disease), stage II Depression Diabetic gastroparesis Dysphagia Generalized anxiety disorder GERD (gastroesophageal reflux disease) Headache Hyperlipidemia Hypertension Hyponatremia Hypothyroidism Insulin dependent type 2 diabetes mellitus Lactic acidosis Lactic acidosis Lewy body dementia Major depressive disorder, recurrent severe without psychotic features Morbid obesity Post-traumatic stress disorder, chronic Tachycardia Surgical History H/O esophagogastroduodenoscopy H/O: hysterectomy History of bunionectomy bilateral Hx of cholecystectomy Status post colonoscopy Family History Mother Hypertension Diabetes Father Hypertension Asthma Other CAD (coronary artery disease) Cancer Denies family history of Anesthesia complication Bleeding disorder Social History Smoking and tobacco status: current every day smoker cigars Cigars smoked per week: 35 Years smoked cigars: 53 Cigar details: 1 PPD Quit status (tobacco): has tried quititng Second hand smoke exposure: Yes Smoking risk assessment/counseling performed?: No Alcohol intake: former Former alcohol use details: Reportedly has not had any alcohol since June Household members: spouse Housing: Manufactured/Mobile home Marital status: Current occupational status: retired History of recent travel: No Physical Exam Const: GENERAL APPEARANCE: cooperative, ill appearing (Mildly) and frail appearing HENMT: COMMON NORMALS: normocephalic and Normal external nose present HEAD & SCALP: normocephalic FACE & SINUS: normal facial exam NOSE: Normal external nose present MOUTH: Normal oral and palatal mucosa present Eye: COMMON NORMALS: Equal, round and reactive pupils present and EOMs intact bilaterally PUPIL: Yes Equal, round and reactive pupils present Chest: CHEST: Yes Symmetrical chest wall rise Resp: COMMON NORMALS: normal respiratory effort, No use of accessory muscles and clear to auscultation bilaterally AUSCULTATION: clear to auscultation bilaterally Cardio: COMMON NORMALS: regular rhythm RATE: tachycardic RHYTHM: regular rhythm GI: INSPECTION: Yes abdominal distension (Mild) PALPATION: Yes Tenderness to palpation present (GI) (Epigastric) : COMMON NORMALS: Yes no CVA tenderness BLADDER/KIDNEY EXAM: Yes no CVA tenderness Back/Pelvis: COMMON NORMALS: no CVA tenderness Extremity: COMMON NORMALS: normal to inspection Skin: COMMON NORMALS: no rashes or lesions noted GENERAL SKIN EXAM: no rashes or lesions noted and pallor Course Vital Signs: Vital signs: Vital Signs Pulse Rate 107 H 08/03/21 05:07 Respiratory Rate 18 08/03/21 05:07 Blood Pressure 152/91 08/03/21 05:07 Pulse Oximetry 99 08/03/21 05:07 MDM - Abdominal Pain Medical Decision Making 66-year-old female with a history of esophagitis. She presents with similar symptoms. Her white blood cell count is 11.6. 73% neutrophils. Hemoglobin is 13.2. No history of coffee-ground's or blood in the emesis. Sodium is 129, which is a chronic finding for her. Potassium is down to 2.9 and is repleted through her PEG tube. Her CRP is not elevated. She is focally tender. This is improved with GI cocktail, and morphine here. She will go home on liquid hydrocodone through the PEG tube for a couple of doses, liquid Zofran to the PEG tube for a couple of doses. Lab Data : 08/03/21 03:45 08/03/21 03:45 Labs/Radiology: Laboratory Results WBC 11.6 10^3/uL (4.0-10.0) H 08/03/21 03:45 RBC 3.66 10^6/uL (4.1-5.3) L 08/03/21 03:45 Hgb 13.2 g/dL (11.5-15.3) 08/03/21 03:45 Hct 36.9 % (37.0-47.0) L 08/03/21 03:45 MCV 100.8 fl (81-99) H 08/03/21 03:45 MCH 36.1 pg (28.0-34.0) H 08/03/21 03:45 MCHC 35.8 g/dL (30.0-36.0) 08/03/21 03:45 RDW 14.6 % (12.1-15.1) 08/03/21 03:45 Plt Count 388 10^3/cmm (130-400) 08/03/21 03:45 MPV 9.6 fL (7.4-10.4) 08/03/21 03:45 Neut % (Auto) 72.7 % 08/03/21 03:45 Lymph % (Auto) 18.9 % 08/03/21 03:45 Russell % (Auto) 7.3 % 08/03/21 03:45 Eos % (Auto) 0.3 % 08/03/21 03:45 Baso % (Auto) 0.3 % 08/03/21 03:45 Neut # (Auto) 8.43 10^3/uL (1.8-7.7) H 08/03/21 03:45 Lymph # (Auto) 2.2 10^3/uL (0.8-4.8) 08/03/21 03:45 Russell # (Auto) 0.9 10^3/uL (0.2-0.9) 08/03/21 03:45 Eos # (Auto) 0.0 10^3/uL (0.0-0.8) 08/03/21 03:45 Baso # (Auto) 0.0 10^3/uL (0.0-0.1) 08/03/21 03:45 Nucleated RBC % (auto) 0 % 08/03/21 03:45 Nucleated RBCs # 0.0 /100WBC 08/03/21 03:45 Sodium 129 mmol/L (136-145) L 08/03/21 03:45 Potassium 2.9 mmol/L (3.5-5.1) L 08/03/21 03:45 Chloride 88 mmol/L (98-107) L 08/03/21 03:45 Carbon Dioxide 22 mmol/L (22-29) 08/03/21 03:45 Anion Gap 21.9 (5-19) H 08/03/21 03:45 BUN 3 mg/dL (8-23) L 08/03/21 03:45 Creatinine 0.6 mg/dL (0.5-0.9) 08/03/21 03:45 GFR Calculation 99.7 mL/min (90-130) 08/03/21 03:45 Glucose 186 mg/dL (65-115) H 08/03/21 03:45 Calculated Osmolality 269 mOsm/kg (285-295) L 08/03/21 03:45 Calcium 8.0 mg/dL (8.5-10.5) L 08/03/21 03:45 Total Bilirubin 0.6 mg/dL (0.15-1.2) 08/03/21 03:45 AST 37 U/L (0-32) H 08/03/21 03:45 ALT 21 U/L (0-33) 08/03/21 03:45 Alkaline Phosphatase 156 IU/L (35-105) H 08/03/21 03:45 C-Reactive Protein 3.0 mg/L (0.0-4.9) 08/03/21 03:45 Total Protein 6.1 g/dL (6.6-8.7) L 08/03/21 03:45 Albumin 2.9 g/dL (3.5-5.2) L 08/03/21 03:45 Globulin 3.2 g/dL (1.3-4.6) 08/03/21 03:45 Lipase 7 U/L (13-60) L 08/03/21 03:45 Urine Color Yellow (Yellow) 08/03/21 04:30 Urine Appearance Clear (CLEAR) 08/03/21 04:30 Urine pH 7 (5-7) 08/03/21 04:30 Ur Specific Lehr 1.005 (1.005-1.030) 08/03/21 04:30 Urine Protein Neg (Negative) 08/03/21 04:30 Urine Glucose (UA) Norm (Normal) 08/03/21 04:30 Urine Ketones Negative (Negative) 08/03/21 04:30 Urine Blood Neg (Negative) 08/03/21 04:30 Urine Nitrate Negative (Negative) 08/03/21 04:30 Urine Bilirubin Neg (Negative) 08/03/21 04:30 Urine Urobilinogen Norm mg/dL (Negative) 08/03/21 04:30 Ur Leukocyte Esterase Negative (Negative) 08/03/21 04:30 Discharge Plan Discharge Patient Disposition: Home Clinical Impression: Gastroenteritis, Acute hypokalemia Condition: Stable Prescriptions: No Action gabapentin 100 mg capsule 200 mg PO BID 0RF pantoprazole 40 mg tablet,delayed release (DR/EC) 40 mg PO QAM 0RF metoprolol tartrate 50 mg tablet 25 mg PO TID 0RF duloxetine 20 mg capsule,delayed release(DR/EC) 20 mg PO BID 0RF sucralfate 1 gram tablet 1 g PO BID 0RF mirtazapine 45 mg tablet 45 mg PO BEDTIME 0RF insulin aspart U-100 [Novolog Flexpen U-100 Insulin] 100 unit/mL (3 mL) insulin pen See Rx Instructions .ROUTE .COMPLEX 0RF Rx Instructions: SLIDING SCALE as needed when blood sugar is over 200 prednisone 1 mg tablet 2.5 mg PO QAM 0RF erythromycin 5 mg/gram (0.5 %) ointment 0.5 inch ophthalmic (eye) QID 7 Days Qty: 3.5 0RF Glucerna 1.5 Warner 0.08-1.5 gram-kcal/mL Liquid 1 ea feeding tube .UP TO 5 TIMES A DAY PRN (Reason: malnutrition) 0RF buspirone 15 mg tablet 15 mg PO BID Qty: 60 0RF acetaminophen 325 mg tablet 650 - 975 mg PO QID PRN (Reason: Pain) 0RF potassium chloride 20 mEq Tablet Extended Release 10 meq PO DAILY PRN (Reason: potassium deficiency ) 0RF metformin 1,000 mg Tablet 1,000 mg PO BID@09,20 0RF levothyroxine 50 mcg Tablet 50 mcg PO DAILY@0800 Qty: 30 0RF methocarbamol 750 mg tablet 750 mg PO TID PRN (Reason: Muscle Spasm) 0RF hydrocodone-acetaminophen 5-325 mg tablet 1 tab PO Q6H PRN (Reason: pain) Qty: 20 0RF sodium chloride 1 gram tablet 1 g PO BID@,20 15 Days Qty: 30 0RF ondansetron HCl 4 mg Tablet 4 mg PO Q6H PRN (Reason: Nausea And Vomiting) 15 Days Qty: 30 0RF loperamide 2 mg Tablet 2 mg PO BID PRN (Reason: Diarrhea) 15 Days Qty: 15 0RF promethazine 25 mg tablet 25 mg PO TID PRN (Reason: Nausea) 15 Days Qty: 30 0RF metoclopramide HCl 10 mg tablet 5 mg PO DAILY 14 Days Qty: 14 0RF Discharge Orders: Discharge ED (Routine); Ordered 08/03/21 Ordered By: Chema Acosta Referrals: Thu Flores FNP [Primary Care Provider] - Patient Instructions: Hypokalemia (ED), Gastroenteritis (ED), Opioid Safety Activity Restrictions/Additional Instructions: Take the medications you were given and dispensed in the ER through your PEG tube today. Take the hydrocodone 5 to 10 mL at a time every 6-8 hours, take the metoclopramide every 6 hours scheduled today. You may return to your normal symptomatic medication following this. Return to the ER for continuing to vomit liquids, worsening pain despite treatment, fever greater than 100, any other concerning symptoms. Coding Level of Care Code ED [employer] for [employer] Fwd Exam Comprehensive
[2021-08-03] MEDS: HYDROcodone-APAP 7.5-325 mg/15 mL UDC 30 ML PO (05:35)
--- NOTE | 2021-08-03 05:56 | PC.NURSE ---
0530 [place] 7.5mg elixir x2 and Reglan 10mg were sent home with pt per Dr Acosta ord. Instructions given per Dr Acosta on disbursement both written and oral instructions with verbalized understanding.
== END 2021-08-03 05:30 | disposition home or self-care (01) ==
PROVIDERS: Emergency Provider Emergency Medicine; PCP Nurse Practitioner
DX: K52.9 Noninfective gastroenteritis and colitis, unspecified (principal); E87.6 Hypokalemia; K20.90 Esophagitis, unspecified without bleeding; Z93.1 Gastrostomy status; I12.9 Hypertensive chronic kidney disease with stage 1 through stage 4 chronic kidney disease, or unspecified chronic kidney disease; E11.22 Type 2 diabetes mellitus with diabetic chronic kidney disease; N18.2 Chronic kidney disease, stage 2 (mild); E78.5 Hyperlipidemia, unspecified; E87.1 Hypo-osmolality and hyponatremia
CPT/HCPCS: 80053; 81003; 83690; 85025; 86140; 96361; 96374; 96375; 96376; 99284; J2270; J2405; J2765; J7040

== ENCOUNTER → 2021-08-08 10:48 | Outpatient (BNVA) | payer OTHER, MEDICARE, SELFPAY | PROVIDERS: PCP Nurse Practitioner; Visit Provider Specialist | DX: G31.83 Neurocognitive disorder with Lewy bodies (principal); F02.80 Dementia in other diseases classified elsewhere, unspecified severity, without behavioral disturbance, psychotic disturbance, mood disturbance, and anxiety; G43.711 Chronic migraine without aura, intractable, with status migrainosus | CPT/HCPCS: 64615; 99213; 99214; J0585 ==

== ENCOUNTER 2021-08-17 04:50 | Emergency (ER) | payer OTHER, MEDICARE, SELFPAY ==
[2021-08-17 04:51] VITALS: BP 124/77; PULSE 92; RESP 18; TEMP 36.4; O2SAT 97; BMI 20.3
--- NOTE | 2021-08-17 05:08 | XRR_ITS ---
PROCEDURE INFORMATION: Exam: XR Chest Exam date and time: 08/17/2021 5:13 AM Age: 66 years old Clinical indication: Other: Near syncope TECHNIQUE: Imaging protocol: XR of the chest. Views: 1 view. COMPARISON: CR XR chest 1V portable [id number] 07/18/2021 7:20 AM FINDINGS: Lungs: No CHF/pulmonary edema. Poor inspiration somewhat limits evaluation, especially of the lung bases. Visible lungs appear essentially clear. Pleural spaces: No visible pneumothorax. No definite pleural fluid. Heart/Mediastinum: Heart size is within normal limits. Diaphragm: Some elevation of the right hemidiaphragm. Bones/joints: No significant acute finding. XR/XR chest 1V portable [id number] IMPRESSION: 1. No definite CHF or pneumonia. 2. Other findings discussed above.
--- NOTE | 2021-08-17 05:08 | CTR_ITS ---
PROCEDURE INFORMATION: Exam: CT Head Without Contrast Exam date and time: 08/17/2021 6:03 AM Age: 66 years old Clinical indication: Other: Near syncope TECHNIQUE: Imaging protocol: Computed tomography of the head without contrast. Radiation optimization: All CT scans at this facility use at least one of these dose optimization techniques: automated exposure control; mA and/or kV adjustment per patient size (includes targeted exams where dose is matched to clinical indication); or iterative reconstruction. COMPARISON: CT head wo con* [id number] 05/10/2021 5:51 PM RADIATION DOSE METRICS: Total DLP (mGy-cm): 782.84 FINDINGS: Brain: No acute intracranial hemorrhage or mass effect. There is decreased attenuation in the periventricular white matter, likely from microvascular disease. No definite acute infarct by CT. MRI could be more sensitive/specific for detection, as clinically directed. Cerebral ventricles: Ventricle size is normal for age. Paranasal sinuses: Opacification of the right half of the frontal sinus. Included paranasal sinuses otherwise appear essentially clear. Mastoid air cells: No significant acute finding. Bones/joints: No definite acute skull fracture. Soft tissues: No significant acute finding. Vasculature: Vascular calcifications in the internal carotid and vertebral basilar systems. CT/CT head wo con* [id number] IMPRESSION: 1. No acute intracranial hemorrhage or mass effect. 2. Changes of microvascular disease. 3. No definite acute infarct by CT, see above. 4. Other findings discussed above.
--- NOTE | 2021-08-17 05:09 | ECG_ITS ---
[facility] Test Date: 2021-08-17 Pat Name: Ingris Mendosa Department: Room: Gender: Female Alliance Consultant: : 1955 Requested By: Chema Abdul Order Number: [id number] Danny MD: Cecilio Julian M.D. Measurements Intervals [place] Rate: 89 P: -1 NE: 117 QRS: 0 QRSD: 80 T: 124 QT: 366 QTc: 447 Interpretive Statements SINUS RHYTHM WITH SHORT NE INTERVAL WITH OCCASIONAL SUPRAVENTRICULAR PREMATURE COMPLEXES LOW QRS VOLTAGE IN PRECORDIAL LEADS [QRS DEFLECTION < 1.0 mV IN CHEST LEADS] NONSPECIFIC ST & T-WAVE ABNORMALITY Compared to ECG 07/18/2021 09:01:54 Short NE interval now present Low QRS voltage now present T-wave abnormality now present Electronically Signed On 08-18-2021 20:32:40 CDT by Cecilio Julian M.D. [email or web address]
--- NOTE | 2021-08-17 05:10 | W.ED.WEAKNES ---
Documented by User: Chema Acosta DO 08/17/21 18:58 HPI - Weakness General: Chief complaint: Weakness Stated complaint: GENERALIZED WEAKNESS/SYNCOPE Time Seen by Provider: 08/17/21 04:59 Source: patient History of Present Illness: 66-year-old female with a history of adrenal insufficiency, Lewy body dementia, chronic vomiting and diarrhea status post peg tube placement. She presents with an episode of near syncope at home. She had generalized weakness as well. Evidently, her caught her, and she denies hitting her head. Her only other complaint is that of chronic back pain which is unchanged. She says that she has not slept well the past couple of nights, and would really like to sleep. MD Complaint: generalized weakness Onset (ago): hour(s) Duration: constant Location: generalized Migration: none Severity: mild Associated symptoms: Reports decreased appetite, headache(s) (Chronic), nausea (Chronic) and vomiting (Chronic); Denies chest pain, confusion (Not above baseline), fever(s) or short of breath Review of Systems Const: Denies: fever(s) Card: Denies: chest pain Resp: Denies: dyspnea or productive cough GI: Reports: nausea (Chronic) and vomiting (Chronic) Neuro: Reports: headache(s) (Chronic); Denies: confusion (Not above baseline) PFSH ED PFSH: Medical History Acute esophagitis Acute hypokalemia Acute hyponatremia Adrenal insufficiency Altered mental status Alzheimer disease Anemia Atrial fibrillation, new onset C. difficile diarrhea Chronic back pain Chronic diarrhea Chronic diastolic CHF (congestive heart failure) Chronic hyponatremia CKD (chronic kidney disease), stage II Depression Diabetic gastroparesis Dysphagia Generalized anxiety disorder GERD (gastroesophageal reflux disease) Headache Hyperlipidemia Hypertension Hyponatremia Hypothyroidism Insulin dependent type 2 diabetes mellitus Lactic acidosis Lactic acidosis Lewy body dementia Major depressive disorder, recurrent severe without psychotic features Morbid obesity Post-traumatic stress disorder, chronic Tachycardia Surgical History H/O esophagogastroduodenoscopy H/O: hysterectomy History of bunionectomy bilateral Hx of cholecystectomy Status post colonoscopy Family History Mother Hypertension Diabetes Father Hypertension Asthma Other CAD (coronary artery disease) Cancer Denies family history of Anesthesia complication Bleeding disorder Social History Smoking and tobacco status: never smoked Quit status (tobacco): has tried quititng Second hand smoke exposure: Yes Smoking risk assessment/counseling performed?: No Alcohol intake: former Former alcohol use details: Reportedly has not had any alcohol since June Household members: spouse Housing: Manufactured/Mobile home Marital status: Current occupational status: retired History of recent travel: No Physical Exam Const: GENERAL APPEARANCE: cooperative and frail appearing HENMT: COMMON NORMALS: normocephalic, atraumatic and Normal external nose present HEAD & SCALP: normocephalic and atraumatic NOSE: Normal external nose present Eye: COMMON NORMALS: normal visual huston by confrontation VISUAL HUSTON: No peripheral vision loss Neck/C-Spine: GENERAL: Yes trachea midline CERVICAL SPINE: No Cervical spine tenderness Lymph: LYMPHATIC: no lymphadenopathy noted Chest: COMMONS NORMALS: negative for normal inspection of the breasts Breast/axilla inspection: No normal inspection of the breasts Resp: COMMON NORMALS: normal respiratory effort and No use of accessory muscles Cardio: COMMON NORMALS: regular rate and regular rhythm RATE: regular rate RHYTHM: regular rhythm GI: COMMON NORMALS: Normal to inspection, nondistended, normoactive bowel sounds present and Soft to palpation PALPATION: Yes Soft to palpation Extremity: COMMON NORMALS: no pedal edema Neuro: SPEECH: abnormal speech Details: slurred Course Vital Signs: Vital signs: Vital Signs Temperature 97.5 F L 08/17/21 04:51 Pulse Rate 88 08/17/21 07:29 Respiratory Rate 15 08/17/21 07:29 Blood Pressure 138/93 08/17/21 07:29 Pulse Oximetry 95 08/17/21 07:29 MDM - Weakness Medical Decision Making Patient is pending laboratory, and imaging results. She will be checked out at shift change Lab Data : 08/17/21 05:47 08/17/21 05:47 Radiology Impressions Chest X-Ray 08/17/21 05:08 IMPRESSION: 1. No definite CHF or pneumonia. 2. Other findings discussed above. Head CT 08/17/21 05:08 IMPRESSION: 1. No acute intracranial hemorrhage or mass effect. 2. Changes of microvascular disease. 3. No definite acute infarct by CT, see above. 4. Other findings discussed above. Laboratory Results WBC 7.9 10^3/uL (4.0-10.0) 08/17/21 05:47 RBC 3.87 10^6/uL (4.1-5.3) L 08/17/21 05:47 Hgb 14.3 g/dL (11.5-15.3) 08/17/21 05:47 Hct 44.1 % (37.0-47.0) 08/17/21 05:47 MCV 114.0 fl (81-99) H 08/17/21 05:47 MCH 37.0 pg (28.0-34.0) H 08/17/21 05:47 MCHC 32.4 g/dL (30.0-36.0) 08/17/21 05:47 RDW 13.9 % (12.1-15.1) 08/17/21 05:47 Plt Count 92 10^3/cmm (130-400) L 08/17/21 05:47 MPV 13.2 fL (7.4-10.4) H 08/17/21 05:47 Neut % (Auto) 70.4 % 08/17/21 05:47 Lymph % (Auto) 23.0 % 08/17/21 05:47 Graves % (Auto) 5.4 % 08/17/21 05:47 Eos % (Auto) 0.3 % 08/17/21 05:47 Baso % (Auto) 0.4 % 08/17/21 05:47 Neut # (Auto) 5.59 10^3/uL (1.8-7.7) 08/17/21 05:47 Lymph # (Auto) 1.8 10^3/uL (0.8-4.8) 08/17/21 05:47 Graves # (Auto) 0.4 10^3/uL (0.2-0.9) 08/17/21 05:47 Eos # (Auto) 0.0 10^3/uL (0.0-0.8) 08/17/21 05:47 Baso # (Auto) 0.0 10^3/uL (0.0-0.1) 08/17/21 05:47 Nucleated RBC % (auto) 0 % 08/17/21 05:47 Nucleated RBCs # 0.0 /100WBC 08/17/21 05:47 Sodium 136 mmol/L (136-145) 08/17/21 05:47 Potassium 3.3 mmol/L (3.5-5.1) L 08/17/21 05:47 Chloride 96 mmol/L (98-107) L 08/17/21 05:47 Carbon Dioxide 14 mmol/L (22-29) L 08/17/21 05:47 Anion Gap 29.3 (5-19) H 08/17/21 05:47 BUN 3 mg/dL (8-23) L 08/17/21 05:47 Creatinine 0.4 mg/dL (0.5-0.9) L 08/17/21 05:47 GFR Calculation 159.2 mL/min (90-130) H 08/17/21 05:47 Glucose 111 mg/dL (65-115) 08/17/21 05:47 POC Glucose 93 mg/dL (70-110) 08/17/21 05:11 Calculated Osmolality 279 mOsm/kg (285-295) L 08/17/21 05:47 Calcium 7.7 mg/dL (8.5-10.5) L 08/17/21 05:47 Magnesium 1.4 mg/dL (1.7-2.3) L 08/17/21 05:47 Total Bilirubin 0.3 mg/dL (0.15-1.2) 08/17/21 05:47 AST 57 U/L (0-32) H 08/17/21 05:47 ALT 27 U/L (0-33) 08/17/21 05:47 Alkaline Phosphatase 129 IU/L (35-105) H 08/17/21 05:47 Total Protein 6.3 g/dL (6.6-8.7) L 08/17/21 05:47 Albumin 2.8 g/dL (3.5-5.2) L 08/17/21 05:47 Globulin 3.5 g/dL (1.3-4.6) 08/17/21 05:47 Urine Color Straw (Yellow) 08/17/21 06:25 Urine Appearance Clear (CLEAR) 08/17/21 06:25 Urine pH 6 (5-7) 08/17/21 06:25 Ur Specific [place] 1.010 (1.005-1.030) 08/17/21 06:25 Urine Protein Neg (Negative) 08/17/21 06:25 Urine Glucose (UA) Norm (Normal) 08/17/21 06:25 Urine Ketones Negative (Negative) 08/17/21 06:25 Urine Blood Neg (Negative) 08/17/21 06:25 Urine Nitrate Negative (Negative) 08/17/21 06:25 Urine Bilirubin Neg (Negative) 08/17/21 06:25 Urine Urobilinogen Norm mg/dL (Negative) 08/17/21 06:25 Ur Leukocyte Esterase Negative (Negative) 08/17/21 06:25 Ethyl Alcohol 87 mg/dL (0-10) H 08/17/21 05:47 Discharge Plan Discharge Patient Disposition: Home Clinical Impression: Near syncope Condition: Stable Prescriptions: No Action gabapentin 100 mg capsule 200 mg PO BID 0RF pantoprazole 40 mg tablet,delayed release (DR/EC) 40 mg PO QAM 0RF metoprolol tartrate 50 mg tablet 25 mg PO TID 0RF duloxetine 20 mg capsule,delayed release(DR/EC) 20 mg PO BID 0RF sucralfate 1 gram tablet 1 g PO BID 0RF mirtazapine 45 mg tablet 45 mg PO BEDTIME 0RF insulin aspart U-100 [Novolog Flexpen U-100 Insulin] 100 unit/mL (3 mL) insulin pen See Rx Instructions .ROUTE .COMPLEX 0RF Rx Instructions: SLIDING SCALE as needed when blood sugar is over 200 prednisone 1 mg tablet 2.5 mg PO QAM 0RF memantine [Namenda] 10 mg tablet 10 mg PO BID Qty: 180 0RF Rx Instructions: Initiate after starter pack memantine [Namenda Titration Brett] 5-10 mg tablets,dose pack See Rx Instructions PO PER PKG DIR Qty: 49 0RF Rx Instructions: PO PER PKG DIR erythromycin 5 mg/gram (0.5 %) ointment 0.5 inch ophthalmic (eye) QID 7 Days Qty: 3.5 0RF Glucerna 1.5 Warner 0.08-1.5 gram-kcal/mL Liquid 1 ea feeding tube .UP TO 5 TIMES A DAY PRN (Reason: malnutrition) 0RF buspirone 15 mg tablet 15 mg PO BID Qty: 60 0RF acetaminophen 325 mg tablet 650 - 975 mg PO QID PRN (Reason: Pain) 0RF potassium chloride 20 mEq Tablet Extended Release 10 meq PO DAILY PRN (Reason: potassium deficiency ) 0RF metformin 1,000 mg Tablet 1,000 mg PO BID@,20 0RF levothyroxine 50 mcg Tablet 50 mcg PO DAILY@0800 Qty: 30 0RF methocarbamol 750 mg tablet 750 mg PO TID PRN (Reason: Muscle Spasm) 0RF hydrocodone-acetaminophen 5-325 mg tablet 1 tab PO Q6H PRN (Reason: pain) Qty: 20 0RF sodium chloride 1 gram tablet 1 g PO BID@,20 15 Days Qty: 30 0RF ondansetron HCl 4 mg Tablet 4 mg PO Q6H PRN (Reason: Nausea And Vomiting) 15 Days Qty: 30 0RF loperamide 2 mg Tablet 2 mg PO BID PRN (Reason: Diarrhea) 15 Days Qty: 15 0RF promethazine 25 mg tablet 25 mg PO TID PRN (Reason: Nausea) 15 Days Qty: 30 0RF metoclopramide HCl 10 mg tablet 5 mg PO DAILY 14 Days Qty: 14 0RF Discharge Orders: Discharge ED (Routine); Ordered 08/17/21 Ordered By: Samuel Cruz Referrals: Thu Flores, MATERIALS PLANNING ANALYST [Primary Care Provider] - Coding Level of Care Code ED Optical Glass Sawyer for Chg Fwd Exam Comprehensive Documented by User: Samuel Cruz MD 08/17/21 07:05 HPI - Weakness General: Chief complaint: Weakness Stated complaint: GENERALIZED WEAKNESS/SYNCOPE Time Seen by Provider: 08/17/21 04:59 [facility] ED PFSH: Medical History Acute esophagitis Acute hypokalemia Acute hyponatremia Adrenal insufficiency Altered mental status Alzheimer disease Anemia Atrial fibrillation, new onset C. difficile diarrhea Chronic back pain Chronic diarrhea Chronic diastolic CHF (congestive heart failure) Chronic hyponatremia CKD (chronic kidney disease), stage II Depression Diabetic gastroparesis Dysphagia Generalized anxiety disorder GERD (gastroesophageal reflux disease) Headache Hyperlipidemia Hypertension Hyponatremia Hypothyroidism Insulin dependent type 2 diabetes mellitus Lactic acidosis Lactic acidosis Lewy body dementia Major depressive disorder, recurrent severe without psychotic features Morbid obesity Post-traumatic stress disorder, chronic Tachycardia Surgical History H/O esophagogastroduodenoscopy H/O: hysterectomy History of bunionectomy bilateral Hx of cholecystectomy Status post colonoscopy Family History Mother Hypertension Diabetes Father Hypertension Asthma Other CAD (coronary artery disease) Cancer Denies family history of Anesthesia complication Bleeding disorder Social History Smoking and tobacco status: never smoked Quit status (tobacco): has tried quititng Second hand smoke exposure: Yes Smoking risk assessment/counseling performed?: No Alcohol intake: former Former alcohol use details: Reportedly has not had any alcohol since June Household members: spouse Housing: Manufactured/Mobile home Marital status: Current occupational status: retired History of recent travel: No Course Reevaluation(s): Reevaluation #1: Signout from Dr. Acosta. Patient here after having a near syncopal episode. I talked to the patient about her test results. Her alcohol level is elevated, and she states that she did drink alcohol. Her magnesium was low. We will supplement the magnesium and discharge home with precautions return for worsening or changing symptoms. Vital Signs: Vital signs: Vital Signs Temperature 97.5 F L 08/17/21 04:51 Pulse Rate 88 08/17/21 07:29 Respiratory Rate 15 08/17/21 07:29 Blood Pressure 138/93 08/17/21 07:29 Pulse Oximetry 95 08/17/21 07:29 MDM - Weakness Lab Data : 08/17/21 05:47 08/17/21 05:47 Radiology Impressions Chest X-Ray 08/17/21 05:08 IMPRESSION: 1. No definite CHF or pneumonia. 2. Other findings discussed above. Head CT 08/17/21 05:08 IMPRESSION: 1. No acute intracranial hemorrhage or mass effect. 2. Changes of microvascular disease. 3. No definite acute infarct by CT, see above. 4. Other findings discussed above. Laboratory Results WBC 7.9 10^3/uL (4.0-10.0) 08/17/21 05:47 RBC 3.87 10^6/uL (4.1-5.3) L 08/17/21 05:47 Hgb 14.3 g/dL (11.5-15.3) 08/17/21 05:47 Hct 44.1 % (37.0-47.0) 08/17/21 05:47 MCV 114.0 fl (81-99) H 08/17/21 05:47 MCH 37.0 pg (28.0-34.0) H 08/17/21 05:47 MCHC 32.4 g/dL (30.0-36.0) 08/17/21 05:47 RDW 13.9 % (12.1-15.1) 08/17/21 05:47 Plt Count 92 10^3/cmm (130-400) L 08/17/21 05:47 MPV 13.2 fL (7.4-10.4) H 08/17/21 05:47 Neut % (Auto) 70.4 % 08/17/21 05:47 Lymph % (Auto) 23.0 % 08/17/21 05:47 Graves % (Auto) 5.4 % 08/17/21 05:47 Eos % (Auto) 0.3 % 08/17/21 05:47 Baso % (Auto) 0.4 % 08/17/21 05:47 Neut # (Auto) 5.59 10^3/uL (1.8-7.7) 08/17/21 05:47 Lymph # (Auto) 1.8 10^3/uL (0.8-4.8) 08/17/21 05:47 Graves # (Auto) 0.4 10^3/uL (0.2-0.9) 08/17/21 05:47 Eos # (Auto) 0.0 10^3/uL (0.0-0.8) 08/17/21 05:47 Baso # (Auto) 0.0 10^3/uL (0.0-0.1) 08/17/21 05:47 Nucleated RBC % (auto) 0 % 08/17/21 05:47 Nucleated RBCs # 0.0 /100WBC 08/17/21 05:47 Sodium 136 mmol/L (136-145) 08/17/21 05:47 Potassium 3.3 mmol/L (3.5-5.1) L 08/17/21 05:47 Chloride 96 mmol/L (98-107) L 08/17/21 05:47 Carbon Dioxide 14 mmol/L (22-29) L 08/17/21 05:47 Anion Gap 29.3 (5-19) H 08/17/21 05:47 BUN 3 mg/dL (8-23) L 08/17/21 05:47 Creatinine 0.4 mg/dL (0.5-0.9) L 08/17/21 05:47 GFR Calculation 159.2 mL/min (90-130) H 08/17/21 05:47 Glucose 111 mg/dL (65-115) 08/17/21 05:47 POC Glucose 93 mg/dL (70-110) 08/17/21 05:11 Calculated Osmolality 279 mOsm/kg (285-295) L 08/17/21 05:47 Calcium 7.7 mg/dL (8.5-10.5) L 08/17/21 05:47 Magnesium 1.4 mg/dL (1.7-2.3) L 08/17/21 05:47 Total Bilirubin 0.3 mg/dL (0.15-1.2) 08/17/21 05:47 AST 57 U/L (0-32) H 08/17/21 05:47 ALT 27 U/L (0-33) 08/17/21 05:47 Alkaline Phosphatase 129 IU/L (35-105) H 08/17/21 05:47 Total Protein 6.3 g/dL (6.6-8.7) L 08/17/21 05:47 Albumin 2.8 g/dL (3.5-5.2) L 08/17/21 05:47 Globulin 3.5 g/dL (1.3-4.6) 08/17/21 05:47 Urine Color Straw (Yellow) 08/17/21 06:25 Urine Appearance Clear (CLEAR) 08/17/21 06:25 Urine pH 6 (5-7) 08/17/21 06:25 Ur Specific [place] 1.010 (1.005-1.030) 08/17/21 06:25 Urine Protein Neg (Negative) 08/17/21 06:25 Urine Glucose (UA) Norm (Normal) 08/17/21 06:25 Urine Ketones Negative (Negative) 08/17/21 06:25 Urine Blood Neg (Negative) 08/17/21 06:25 Urine Nitrate Negative (Negative) 08/17/21 06:25 Urine Bilirubin Neg (Negative) 08/17/21 06:25 Urine Urobilinogen Norm mg/dL (Negative) 08/17/21 06:25 Ur Leukocyte Esterase Negative (Negative) 08/17/21 06:25 Ethyl Alcohol 87 mg/dL (0-10) H 08/17/21 05:47 Discharge Plan Discharge Patient Disposition: Home Clinical Impression: Near syncope Condition: Stable Prescriptions: No Action gabapentin 100 mg capsule 200 mg PO BID 0RF pantoprazole 40 mg tablet,delayed release (DR/EC) 40 mg PO QAM 0RF metoprolol tartrate 50 mg tablet 25 mg PO TID 0RF duloxetine 20 mg capsule,delayed release(DR/EC) 20 mg PO BID 0RF sucralfate 1 gram tablet 1 g PO BID 0RF mirtazapine 45 mg tablet 45 mg PO BEDTIME 0RF insulin aspart U-100 [Novolog Flexpen U-100 Insulin] 100 unit/mL (3 mL) insulin pen See Rx Instructions .ROUTE .COMPLEX 0RF Rx Instructions: SLIDING SCALE as needed when blood sugar is over 200 prednisone 1 mg tablet 2.5 mg PO QAM 0RF memantine [Namenda] 10 mg tablet 10 mg PO BID Qty: 180 0RF Rx Instructions: Initiate after starter pack memantine [Namenda Titration Brett] 5-10 mg tablets,dose pack See Rx Instructions PO PER PKG DIR Qty: 49 0RF Rx Instructions: PO PER PKG DIR erythromycin 5 mg/gram (0.5 %) ointment 0.5 inch ophthalmic (eye) QID 7 Days Qty: 3.5 0RF Glucerna 1.5 Warner 0.08-1.5 gram-kcal/mL Liquid 1 ea feeding tube .UP TO 5 TIMES A DAY PRN (Reason: malnutrition) 0RF buspirone 15 mg tablet 15 mg PO BID Qty: 60 0RF acetaminophen 325 mg tablet 650 - 975 mg PO QID PRN (Reason: Pain) 0RF potassium chloride 20 mEq Tablet Extended Release 10 meq PO DAILY PRN (Reason: potassium deficiency ) 0RF metformin 1,000 mg Tablet 1,000 mg PO BID@,20 0RF levothyroxine 50 mcg Tablet 50 mcg PO DAILY@0800 Qty: 30 0RF methocarbamol 750 mg tablet 750 mg PO TID PRN (Reason: Muscle Spasm) 0RF hydrocodone-acetaminophen 5-325 mg tablet 1 tab PO Q6H PRN (Reason: pain) Qty: 20 0RF sodium chloride 1 gram tablet 1 g PO BID@,20 15 Days Qty: 30 0RF ondansetron HCl 4 mg Tablet 4 mg PO Q6H PRN (Reason: Nausea And Vomiting) 15 Days Qty: 30 0RF loperamide 2 mg Tablet 2 mg PO BID PRN (Reason: Diarrhea) 15 Days Qty: 15 0RF promethazine 25 mg tablet 25 mg PO TID PRN (Reason: Nausea) 15 Days Qty: 30 0RF metoclopramide HCl 10 mg tablet 5 mg PO DAILY 14 Days Qty: 14 0RF Discharge Orders: Discharge ED (Routine); Ordered 08/17/21 Ordered By: Samuel Cruz Referrals: hTu Flores FNP [Primary Care Provider] - Coding Level of Care Code ED Optical Glass Sawyer for Chg Fwd Exam Comprehensive
[2021-08-17] MEDS: sodium chloride 0.9% 1,000 ML 999 ML IV (05:49)
[2021-08-17 05:55] LABS: Glucose Point of Care 93 mg/dL (70-110)
[2021-08-17 05:56] LABS: Basophils % 0.4 %; Eosinophils % 0.3 %; Hematocrit 44.1 % (37.0-47.0); Hemoglobin 14.3 g/dL (11.5-15.3); Lymphocytes # 1.8 10^3/uL (0.8-4.8); Mean Corpuscular HGB Conc 32.4 g/dL (30.0-36.0); Mean Platelet Volume 13.2 fL (7.4-10.4); Monocytes # 0.4 10^3/uL (0.2-0.9); Monocytes % 5.4 %; Neutrophils # 5.59 10^3/uL (1.8-7.7); Neutrophils % 70.4 %; Nucleated Red Blood Cells % 0 %; Platelet Count 92 10^3/cmm (130-400); Red Blood Count 3.87 10^6/uL (4.1-5.3); Red Cell Distribution Width 13.9 % (12.1-15.1); White Blood Count 7.9 10^3/uL (4.0-10.0)
[2021-08-17 05:59] VITALS: PULSE 92; RESP 17; O2SAT 94
[2021-08-17 06:07] LABS: Alanine Aminotransferase 27 U/L (0-33); Albumin Level 2.8 g/dL (3.5-5.2); Alkaline Phosphatase 129 IU/L (35-105); Anion Gap 29.3 (5-19); Aspartate Amino Transferase 57 U/L (0-32); Blood Urea Nitrogen 3 mg/dL (8-23); Calcium 7.7 mg/dL (8.5-10.5); Carbon Dioxide 14 mmol/L (22-29); Chloride 96 mmol/L (98-107); Globulin 3.5 g/dL (1.3-4.6); Glomerular Filtration Rate 159.2 mL/min (90-130); Glucose 111 mg/dL (65-115); Magnesium 1.4 mg/dL (1.7-2.3); Osmolality Calculated 279 mOsm/kg (285-295); Potassium 3.3 mmol/L (3.5-5.1); Sodium 136 mmol/L (136-145); Total Bilirubin 0.3 mg/dL (0.15-1.2); Total Protein 6.3 g/dL (6.6-8.7)
[2021-08-17 06:17] LABS: Creatinine Clr Calc Pharmacy 56.3461
[2021-08-17 06:26] LABS: Alcohol Level 87 mg/dL (0-10)
[2021-08-17 06:45] LABS: Add Urine Microscopic? NO; Charge for UA Resulting for Rev
[2021-08-17 06:47] VITALS: BP 130/89; PULSE 89; RESP 15; O2SAT 97
[2021-08-17 06:56] LABS: Bilirubin Urine Neg (Negative); Blood Urine Neg (Negative); Glucose Urine UA Norm (Normal); Ketones Urine Negative (Negative); Leukocyte Esterase Urine Negative (Negative); Nitrate Urine Negative (Negative); Protein Urine Neg (Negative); Urine Appearance Clear (CLEAR); Urine Color Straw (Yellow); Urobilinogen Urine Norm (Negative); pH Urine 6 (5-7)
--- NOTE | 2021-08-17 07:08 | PC.NURSE ---
Shift report received. Pt resting in bed, eyes closed, resp even and unlabored. Fluids continued. Care assumed.
[2021-08-17 07:29] VITALS: BP 138/93; PULSE 88; RESP 15; O2SAT 95
== END 2021-08-17 07:27 | disposition home or self-care (01) ==
PROVIDERS: Emergency Provider Emergency Medicine; PCP Nurse Practitioner
DX: R55 Syncope and collapse (principal); G31.83 Neurocognitive disorder with Lewy bodies; F02.80 Dementia in other diseases classified elsewhere, unspecified severity, without behavioral disturbance, psychotic disturbance, mood disturbance, and anxiety; R11.2 Nausea with vomiting, unspecified; R19.7 Diarrhea, unspecified; R51.9 Headache, unspecified; E11.43 Type 2 diabetes mellitus with diabetic autonomic (poly)neuropathy; K31.84 Gastroparesis; E11.22 Type 2 diabetes mellitus with diabetic chronic kidney disease; I13.0 Hypertensive heart and chronic kidney disease with heart failure and stage 1 through stage 4 chronic kidney disease, or unspecified chronic kidney disease; N18.2 Chronic kidney disease, stage 2 (mild); I50.32 Chronic diastolic (congestive) heart failure; Z79.4 Long term (current) use of insulin; Z93.1 Gastrostomy status
CPT/HCPCS: 36416; 70450; 71045; 80053; 80307; 81003; 82962; 83735; 85025; 93005; 96365; 99284; J3475; J7030

== ENCOUNTER 2021-10-09 12:46 | Emergency (ER) | payer OTHER, MEDICARE, SELFPAY ==
[2021-10-09 13:18] VITALS: BP 121/79; PULSE 106; RESP 18; TEMP 36.3; O2SAT 93; BMI 22.6
--- NOTE | 2021-10-09 15:20 | CTR_ITS ---
PROCEDURE INFORMATION: Exam: CT Head Without Contrast Exam date and time: 10/09/2021 4:29 PM Age: 66 years old Clinical indication: Pain; Headache not specified TECHNIQUE: Imaging protocol: Computed tomography of the head without contrast. Radiation optimization: All CT scans at this facility use at least one of these dose optimization techniques: automated exposure control; mA and/or kV adjustment per patient size (includes targeted exams where dose is matched to clinical indication); or iterative reconstruction. COMPARISON: CT head wo con* [id number] 08/17/2021 6:03 AM RADIATION DOSE METRICS: Total DLP (mGy-cm): 1074.08 FINDINGS: Brain: No hemorrhage. No edema. Moderate diffuse cerebral atrophy. No significant white matter disease. No mass effect. Cerebral ventricles: No ventriculomegaly. Paranasal sinuses: Visualized sinuses are unremarkable. No fluid levels. Mastoid air cells: Visualized mastoid air cells are well aerated. Bones/joints: Unremarkable. No acute fracture. Soft tissues: Unremarkable. CT/CT head wo con* [id number] IMPRESSION: No acute intracranial abnormality.
--- NOTE | 2021-10-09 15:28 | W.ED.HA ---
HPI - Headache General: Chief Complaint: Headache Stated Complaint: headaches/anxiety Time Seen by Provider: 10/09/21 15:19 History of Present Illness: Patient is a 66-year-old female comes to the ED with headache. She has a history of migraines. Headache started approximately 10 days ago. She says this headache is worse than her past migraines. She rates her migraine at 10 out of 10. Headache is located at the top of head. Endorses photophobia and nausea. She took 1 dose of hydrocodone this morning, but it did not help her headache. Denies any recent head trauma, vision changes, numbness tingling or weakness to extremities or face. Denies any chest pain, shortness of breath, emesis, bladder or bowel symptoms. Associated symptoms: Reports nausea; Deny chest pain, fever(s), rash or vomiting Review of Systems Const: Denies: fever(s), chills or fatigue Eyes: Reports: photophobia; Denies: change in vision or eye discomfort ENMT: Denies: throat pain, odynophagia, nasal discharge or nasal congestion Card: Denies: chest pain, palpitations, edema, swelling of feet/ankles, dyspnea on exertion or orthopnea Resp: Denies: dyspnea, productive cough or non-productive cough GI: Reports: nausea; Denies: abdominal pain, vomiting, diarrhea, constipation or hematochezia : Denies: flank pain, dysuria or hematuria Musc: Denies: neck pain, back pain or extremity swelling Skin/Breast: Denies: rash or new lesions Neuro: Reports: headache(s); Denies: numbness in extremities or weakness in extremities PFS ED PFSH: Medical History Acute esophagitis Acute hypokalemia Acute hyponatremia Adrenal insufficiency Altered mental status Alzheimer disease Anemia Atrial fibrillation, new onset C. difficile diarrhea Chronic back pain Chronic diarrhea Chronic diastolic CHF (congestive heart failure) Chronic hyponatremia CKD (chronic kidney disease), stage II Depression Diabetic gastroparesis Dysphagia Generalized anxiety disorder GERD (gastroesophageal reflux disease) Headache Hyperlipidemia Hypertension Hyponatremia Hypothyroidism Insulin dependent type 2 diabetes mellitus Lactic acidosis Lactic acidosis Lewy body dementia Major depressive disorder, recurrent severe without psychotic features Morbid obesity Post-traumatic stress disorder, chronic Tachycardia Surgical History H/O esophagogastroduodenoscopy H/O: hysterectomy History of bunionectomy bilateral Hx of cholecystectomy Status post colonoscopy Family History Mother Hypertension Diabetes Father Hypertension Asthma Other CAD (coronary artery disease) Cancer Denies family history of Anesthesia complication Bleeding disorder Social History Smoking and tobacco status: never smoked Quit status (tobacco): has tried quititng Second hand smoke exposure: Yes Smoking risk assessment/counseling performed?: No Alcohol intake: former Former alcohol use details: Reportedly has not had any alcohol since June Household members: spouse Housing: Manufactured/Mobile home Marital status: Current occupational status: retired History of recent travel: No Physical Exam Const: COMMON NORMALS: patient oriented x3 and alert GENERAL APPEARANCE: cooperative and comfortable HENMT: COMMON NORMALS: normocephalic HEAD & SCALP: normocephalic MOUTH: Normal oral and palatal mucosa present THROAT: posterior oropharynx normal and uvula midline Eye: COMMON NORMALS: Equal, round and reactive pupils present, EOMs intact bilaterally and conjunctivae normal CONJUNCTIVA: Yes conjunctivae normal PUPIL: Yes Equal, round and reactive pupils present Neck/C-Spine: COMMON NORMALS: supple GENERAL: Yes normal visual inspection Resp: COMMON NORMALS: normal respiratory effort, No retractions, No use of accessory muscles and clear to auscultation bilaterally AUSCULTATION: clear to auscultation bilaterally Cardio: COMMON NORMALS: regular rate, regular rhythm, S1 normal heart sound present, S2 normal heart sound present, No gallops present (Cardio), No clicks present (Cardio), No murmurs present (Cardio) and Peripheral pulses 2+ throughout RATE: regular rate RHYTHM: regular rhythm HEART SOUNDS: S1 normal heart sound present and S2 normal heart sound present PERIPHERAL PULSES: Peripheral pulses 2+ throughout GI: COMMON NORMALS: Normal to inspection, nondistended, normoactive bowel sounds present, Soft to palpation, non-tender and no masses PALPATION: Yes Soft to palpation : COMMON NORMALS: Yes no CVA tenderness BLADDER/KIDNEY EXAM: Yes no CVA tenderness Back/Pelvis: COMMON NORMALS: no CVA tenderness Extremity: COMMON NORMALS: normal to inspection Neuro: COMMON NORMALS: patient oriented x3, CN's II-XII intact bilaterally, moves all extremities, no focal motor deficits and no sensory deficits noted SENSORIUM/ORIENTATION: Yes alert SENSORY EXAM: Yes extremities (intact) MOTOR EXAM: 5/5 motor strength present throughout Skin: GENERAL SKIN EXAM: dry skin Course Vital Signs: Vital signs: Vital Signs Temperature 97.4 F L 10/09/21 13:18 Pulse Rate 105 H 10/09/21 17:59 Respiratory Rate 16 10/09/21 17:59 Blood Pressure 148/74 10/09/21 17:59 Pulse Oximetry 97 10/09/21 17:59 MDM - Headache Medical Decision Making Patient is a 66-year-old female comes to the ED with headache. She has a history of migraines. Headache started approximately 10 days ago. She says this headache is worse than her past migraines. She rates her migraine at 10 out of 10. Headache is located at the top of head. Endorses photophobia and nausea. Vital stable. Exam is benign and neuro exam showed no deficits. CT of head showed no acute findings. Patient was given IV migraine cocktail meds and her symptoms improved. She was diagnosed with migraine and was stable for discharge home. Told to follow-up with PCP in the next week for reevaluation. Return to ED precautions given. Patient understood and agreed with plan. Lab Data : 10/09/21 16:03 10/09/21 16:[address] 10/09/21 15:20 IMPRESSION: No acute intracranial abnormality. Laboratory Results WBC Cancelled 10/09/21 16:03 Corrected WBC Cancelled 10/09/21 16:03 RBC Cancelled 10/09/21 16:03 Hgb Cancelled 10/09/21 16:03 Hct Cancelled 10/09/21 16:03 MCV Cancelled 10/09/21 16:03 MCH Cancelled 10/09/21 16:03 MCHC Cancelled 10/09/21 16:03 RDW Cancelled 10/09/21 16:03 Plt Count Cancelled 10/09/21 16:03 MPV Cancelled 10/09/21 16:03 Gran % Cancelled 10/09/21 16:03 Neut % (Auto) Cancelled 10/09/21 16:03 Lymph % (Auto) Cancelled 10/09/21 16:03 Kern % (Auto) Cancelled 10/09/21 16:03 Eos % (Auto) Cancelled 10/09/21 16:03 Baso % (Auto) Cancelled 10/09/21 16:03 Neut # (Auto) Cancelled 10/09/21 16:03 Lymph # (Auto) Cancelled 10/09/21 16:03 Kern # (Auto) Cancelled 10/09/21 16:03 Eos # (Auto) Cancelled 10/09/21 16:03 Baso # (Auto) Cancelled 10/09/21 16:03 Absolute Gran (auto) Cancelled 10/09/21 16:03 Nucleated RBC % (auto) Cancelled 10/09/21 16:03 Nucleated RBCs # Cancelled 10/09/21 16:03 Sodium Cancelled 10/09/21 16:03 Potassium Cancelled 10/09/21 16:03 Chloride Cancelled 10/09/21 16:03 Carbon Dioxide Cancelled 10/09/21 16:03 Anion Gap Cancelled 10/09/21 16:03 BUN Cancelled 10/09/21 16:03 Creatinine Cancelled 10/09/21 16:03 GFR Calculation Cancelled 10/09/21 16:03 Glucose Cancelled 10/09/21 16:03 Calculated Osmolality Cancelled 10/09/21 16:03 Calcium Cancelled 10/09/21 16:03 Discharge Plan Discharge Patient Disposition: Home Clinical Impression: Migraine headache Qualifiers: Migraine type: without aura Status migrainosus presence: with status migrainosus Intractability: not intractable Qualified Code(s): G43.001 - Migraine without aura, not intractable, with status migrainosus Condition: Stable Prescriptions: No Action gabapentin 100 mg capsule 200 mg PO BID 0RF pantoprazole 40 mg tablet,delayed release (DR/EC) 40 mg PO QAM 0RF metoprolol tartrate 50 mg tablet 25 mg PO TID 0RF duloxetine 20 mg capsule,delayed release(DR/EC) 20 mg PO BID 0RF sucralfate 1 gram tablet 1 g PO BID 0RF mirtazapine 45 mg tablet 45 mg PO BEDTIME 0RF insulin aspart U-100 [Novolog Flexpen U-100 Insulin] 100 unit/mL (3 mL) insulin pen See Rx Instructions .ROUTE .COMPLEX 0RF Rx Instructions: SLIDING SCALE as needed when blood sugar is over 200 prednisone 1 mg tablet 2.5 mg PO QAM 0RF memantine [Namenda] 10 mg tablet 10 mg PO BID Qty: 180 0RF Rx Instructions: Initiate after starter pack memantine [Namenda Titration Brett] 5-10 mg tablets,dose pack See Rx Instructions PO PER PKG DIR Qty: 49 0RF Rx Instructions: PO PER PKG DIR erythromycin 5 mg/gram (0.5 %) ointment 0.5 inch ophthalmic (eye) QID 7 Days Qty: 3.5 0RF Glucerna 1.5 Warner 0.08-1.5 gram-kcal/mL Liquid 1 ea feeding tube .UP TO 5 TIMES A DAY PRN (Reason: malnutrition) 0RF buspirone 15 mg tablet 15 mg PO BID Qty: 60 0RF acetaminophen 325 mg tablet 650 - 975 mg PO QID PRN (Reason: Pain) 0RF potassium chloride 20 mEq Tablet Extended Release 10 meq PO DAILY PRN (Reason: potassium deficiency ) 0RF metformin 1,000 mg Tablet 1,000 mg PO BID@09,20 0RF levothyroxine 50 mcg Tablet 50 mcg PO DAILY@0800 Qty: 30 0RF methocarbamol 750 mg tablet 750 mg PO TID PRN (Reason: Muscle Spasm) 0RF hydrocodone-acetaminophen 5-325 mg tablet 1 tab PO Q6H PRN (Reason: pain) Qty: 20 0RF sodium chloride 1 gram tablet 1 g PO BID@09,20 15 Days Qty: 30 0RF ondansetron HCl 4 mg Tablet 4 mg PO Q6H PRN (Reason: Nausea And Vomiting) 15 Days Qty: 30 0RF loperamide 2 mg Tablet 2 mg PO BID PRN (Reason: Diarrhea) 15 Days Qty: 15 0RF promethazine 25 mg tablet 25 mg PO TID PRN (Reason: Nausea) 15 Days Qty: 30 0RF metoclopramide HCl 10 mg tablet 5 mg PO DAILY 14 Days Qty: 14 0RF Discharge Orders: Discharge ED (Routine); Ordered 10/09/21 Ordered By: Franko Porter Referrals: Thu Flores FNP [Primary Care Provider] - Discharge Diet: Regular Discharge Activity: Increase activity as tolerated Patient Instructions: Headache - Migraine (Adult) Activity Restrictions/Additional Instructions: Follow-up with medical provider as directed in the next 5 to 7 days reevaluation. Continue taking all medications as previously prescribed. Return to the ER or your medical provider if condition worsens. Please read and understand discharge instructions. Thank you for choosing [facility] for your healthcare needs today. Please realize this is an emergency room and that we are providing you with a medical screening exam and this may not be complete and all inclusive of all the testing and or work up that you may need to determine your ailment or severity of your illness. It is very important that you follow up as instructed or that you return to the Emergency Department should you have concerns or if your condition changes or worsens in any way. 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
[2021-10-09] MEDS: diphenhydrAMINE 50 mg/mL SDV 1mL 25 MG IVP (16:06)
[2021-10-09] MEDS: dexamethasone 4 mg/mL INJ 8 MG IVP (16:06)
[2021-10-09] MEDS: ketorolac 30 mg/mL INJ IVP (16:06)
[2021-10-09] MEDS: metoclopramide 5 mg/mL SDV 2 mL 10 MG IVP (16:07)
[2021-10-09 17:20] VITALS: RESP 18
[2021-10-09] MEDS: morphine 4 mg/mL SDV 1 mL IVP (17:20)
[2021-10-09 17:59] VITALS: BP 148/74; PULSE 105; RESP 16; O2SAT 97
== END 2021-10-09 18:08 | disposition home or self-care (01) ==
PROVIDERS: Emergency Provider Physician Assistant; PCP Nurse Practitioner
DX: G43.001 Migraine without aura, not intractable, with status migrainosus (principal); Z79.84 Long term (current) use of oral hypoglycemic drugs; Z79.4 Long term (current) use of insulin; E11.22 Type 2 diabetes mellitus with diabetic chronic kidney disease; I13.0 Hypertensive heart and chronic kidney disease with heart failure and stage 1 through stage 4 chronic kidney disease, or unspecified chronic kidney disease; N18.2 Chronic kidney disease, stage 2 (mild); I50.32 Chronic diastolic (congestive) heart failure; G30.9 Alzheimer's disease, unspecified; F02.80 Dementia in other diseases classified elsewhere, unspecified severity, without behavioral disturbance, psychotic disturbance, mood disturbance, and anxiety; E78.5 Hyperlipidemia, unspecified; Z77.22 Contact with and (suspected) exposure to environmental tobacco smoke (acute) (chronic)
CPT/HCPCS: 70450; 85025; 96374; 96375; 99285; J1100; J1200; J1885; J2270; J2765

== ENCOUNTER 2021-10-15 09:32 | Emergency (ER) | payer OTHER, MEDICARE, SELFPAY ==
[2021-10-15 09:49] VITALS: BP 96/64; PULSE 93; RESP 16; TEMP 36.4; O2SAT 92; BMI 25.7
--- NOTE | 2021-10-15 11:18 | ED_ITS ---
HPI - Anxiety General: Chief Complaint: Anxiety Stated Complaint: anxiety Time Seen by Provider: 10/15/21 10:35 Source: patient Mode of arrival: ambulatory Limitations: no limitations History of Present Illness: Patient is a 66-year-old female with an extensive medical history who is well-known to the ED here with her for complaints of anxiety. Patient tells me she had an anxiety attack earlier today while watching TV. She does not know of any obvious provoking factors. She states she has a longstanding history of anxiety and panic attacks and feels like her attack this morning was identical to previous episodes. She takes BuSpar for her anxiety. She was recently evaluated by a psychiatrist and apparently prescribed a new medication which she does not remember the name of. She states her medications are mailed to her and she has not received this medication yet. Patient states her anxiety attack today consisted of shaking, feeling extremely nervous, and feeling like her stomach was knotted up . She is not having any abdominal pain currently. She has no chest pain, shortness of breath, difficulty breathing, palpitations. Associated symptoms: Deny chest pain, chills, fever(s), headache(s) or malaise Review of Systems Const: Denies: fever(s), chills, body aches, fatigue or malaise Card: Denies: chest pain Resp: Denies: dyspnea GI: Denies: abdominal pain Skin/Breast: Denies: rash Neuro: Denies: headache(s) Psych: Reports: anxiety; Denies: suicidal ideation or homicidal ideation [facility] ED PFSH: Medical History Acute esophagitis Acute hypokalemia Acute hyponatremia Adrenal insufficiency Altered mental status Alzheimer disease Anemia Atrial fibrillation, new onset C. difficile diarrhea Chronic back pain Chronic diarrhea Chronic diastolic CHF (congestive heart failure) Chronic hyponatremia CKD (chronic kidney disease), stage II Depression Diabetic gastroparesis Dysphagia Generalized anxiety disorder GERD (gastroesophageal reflux disease) Headache Hyperlipidemia Hypertension Hyponatremia Hypothyroidism Insulin dependent type 2 diabetes mellitus Lactic acidosis Lactic acidosis Lewy body dementia Major depressive disorder, recurrent severe without psychotic features Morbid obesity Post-traumatic stress disorder, chronic Tachycardia Surgical History H/O esophagogastroduodenoscopy H/O: hysterectomy History of bunionectomy bilateral Hx of cholecystectomy Status post colonoscopy Family History Mother Hypertension Diabetes Father Hypertension Asthma Other CAD (coronary artery disease) Cancer Denies family history of Anesthesia complication Bleeding disorder Social History Smoking and tobacco status: never smoked Quit status (tobacco): has tried quititng Second hand smoke exposure: Yes Smoking risk assessment/counseling performed?: No Alcohol intake: former Former alcohol use details: Reportedly has not had any alcohol since June Household members: spouse Housing: Manufactured/Mobile home Marital status: Current occupational status: retired History of recent travel: No Physical Exam Const: COMMON NORMALS: no acute distress, patient oriented x3, no limitations and alert GENERAL APPEARANCE: cooperative ORIENTATION/CONSCIOUSNESS: Yes awake, Yes oriented to person, Yes oriented to place and Yes oriented to time Resp: COMMON NORMALS: normal respiratory effort and clear to auscultation bilaterally AUSCULTATION: clear to auscultation bilaterally Cardio: COMMON NORMALS: regular rate and regular rhythm RATE: regular rate RHYTHM: regular rhythm GI: COMMON NORMALS: Normal to inspection, nondistended, normoactive bowel sounds present, Soft to palpation and non-tender PALPATION: Yes Soft to palpation Neuro: NERI COMA SCALE: document GCS findings Neri coma scale eye openin g: Spontaneous [employer] coma scale verbal response: Orientated [employer] coma scale motor response: Obey commands Neri coma scale total score: 15 COMMON NORMALS: patient oriented x3, CN's II-XII intact bilaterally, moves all extremities, no focal motor deficits and no sensory deficits noted SENSORIUM/ORIENTATION: Yes alert, Yes oriented to person, Yes oriented to place and Yes oriented to time Skin: COMMON NORMALS: no rashes or lesions noted GENERAL SKIN EXAM: no rashes or lesions noted Course Vital Signs: Vital signs: Vital Signs Temperature 97.6 F 10/15/21 09:49 Pulse Rate 92 10/15/21 11:19 Respiratory Rate 16 10/15/21 11:19 Blood Pressure 140/83 10/15/21 11:19 Pulse Oximetry 99 10/15/21 11:19 MDM - Anxiety Medical Decision Making She reports anxiety is much improved and would like to go home. Will write for a short amount of ativan she can use for severe panic attacks only. Discharge Plan Discharge Patient Disposition: Home Clinical Impression: Panic attack Condition: Stable Prescriptions: New lorazepam [Ativan] 1 mg tablet 1 mg PO TID PRN (Reason: anxiety) Qty: 7 0RF No Action gabapentin 100 mg capsule 200 mg PO BID 0RF pantoprazole 40 mg tablet,delayed release (DR/EC) 40 mg PO QAM 0RF metoprolol tartrate 50 mg tablet 25 mg PO TID 0RF duloxetine 20 mg capsule,delayed release(DR/EC) 20 mg PO BID 0RF sucralfate 1 gram tablet 1 g PO BID 0RF mirtazapine 45 mg tablet 45 mg PO BEDTIME 0RF insulin aspart U-100 [Novolog Flexpen U-100 Insulin] 100 unit/mL (3 mL) insulin pen See Rx Instructions .ROUTE .COMPLEX 0RF Rx Instructions: SLIDING SCALE as needed when blood sugar is over 200 prednisone 1 mg tablet 2.5 mg PO QAM 0RF memantine [Namenda] 10 mg tablet 10 mg PO BID Qty: 180 0RF Rx Instructions: Initiate after starter pack memantine [Namenda Titration Brett] 5-10 mg tablets,dose pack See Rx Instructions PO PER PKG DIR Qty: 49 0RF Rx Instructions: PO PER PKG DIR erythromycin 5 mg/gram (0.5 %) ointment 0.5 inch ophthalmic (eye) QID 7 Days Qty: 3.5 0RF Glucerna 1.5 Warner 0.08-1.5 gram-kcal/mL Liquid 1 ea feeding tube .UP TO 5 TIMES A DAY PRN (Reason: malnutrition) 0RF buspirone 15 mg tablet 15 mg PO BID Qty: 60 0RF acetaminophen 325 mg tablet 650 - 975 mg PO QID PRN (Reason: Pain) 0RF potassium chloride 20 mEq Tablet Extended Release 10 meq PO DAILY PRN (Reason: potassium deficiency ) 0RF metformin 1,000 mg Tablet 1,000 mg PO BID@, 0RF levothyroxine 50 mcg Tablet 50 mcg PO DAILY@0800 Qty: 30 0RF methocarbamol 750 mg tablet 750 mg PO TID PRN (Reason: Muscle Spasm) 0RF hydrocodone-acetaminophen 5-325 mg tablet 1 tab PO Q6H PRN (Reason: pain) Qty: 20 0RF sodium chloride 1 gram tablet 1 g PO BID@,20 15 Days Qty: 30 0RF ondansetron HCl 4 mg Tablet 4 mg PO Q6H PRN (Reason: Nausea And Vomiting) 15 Days Qty: 30 0RF loperamide 2 mg Tablet 2 mg PO BID PRN (Reason: Diarrhea) 15 Days Qty: 15 0RF promethazine 25 mg tablet 25 mg PO TID PRN (Reason: Nausea) 15 Days Qty: 30 0RF metoclopramide HCl 10 mg tablet 5 mg PO DAILY 14 Days Qty: 14 0RF Discharge Orders: Discharge ED (Routine); Ordered 10/15/21 Ordered By: Yolanda Parsons Referrals: Thu Flores, SUPERVISOR BOILER REPAIR [Primary Care Provider] - Patient Instructions: Panic Attack (ED) Coding Level of Care Code ED Change Management Coordinator for Padminig Fwd Exam Detailed
[2021-10-15 11:19] VITALS: BP 140/83; PULSE 92; RESP 16; O2SAT 99
[2021-10-15] MEDS: ALPRAZolam 0.5 mg Tablet PO (11:23)
[2021-10-15 12:02] VITALS: BP 138/69; PULSE 91; O2SAT 97
== END 2021-10-15 12:06 | disposition home or self-care (01) ==
PROVIDERS: Emergency Provider Physician Assistant; PCP Nurse Practitioner
DX: F41.0 Panic disorder [episodic paroxysmal anxiety] (principal); Z79.4 Long term (current) use of insulin; G30.9 Alzheimer's disease, unspecified; F02.80 Dementia in other diseases classified elsewhere, unspecified severity, without behavioral disturbance, psychotic disturbance, mood disturbance, and anxiety; I13.0 Hypertensive heart and chronic kidney disease with heart failure and stage 1 through stage 4 chronic kidney disease, or unspecified chronic kidney disease; E11.22 Type 2 diabetes mellitus with diabetic chronic kidney disease; N18.2 Chronic kidney disease, stage 2 (mild); I50.32 Chronic diastolic (congestive) heart failure; E78.5 Hyperlipidemia, unspecified; Z77.22 Contact with and (suspected) exposure to environmental tobacco smoke (acute) (chronic)
CPT/HCPCS: 99283

== ENCOUNTER 2021-10-19 21:01 | Emergency (ER) | payer OTHER, MEDICARE, SELFPAY ==
[2021-10-19 21:05] VITALS: BP 180/84; PULSE 79; RESP 17; TEMP 36.4; O2SAT 95; BMI 23.7
--- NOTE | 2021-10-19 21:31 | CTR_ITS ---
PROCEDURE INFORMATION: Exam: CT Head Without Contrast Exam date and time: 10/19/2021 9:42 PM Age: 66 years old Clinical indication: Pain; Headache not specified; Patient HX: C/O vertex BRANCH x 3 days; Additional info: Severe headache TECHNIQUE: Imaging protocol: Computed tomography of the head without contrast. Radiation optimization: All CT scans at this facility use at least one of these dose optimization techniques: automated exposure control; mA and/or kV adjustment per patient size (includes targeted exams where dose is matched to clinical indication); or iterative reconstruction. COMPARISON: CT head wo con* [id number] 10/09/2021 4:29 PM RADIATION DOSE METRICS: Total DLP (mGy-cm): 1063.28 FINDINGS: Brain: No evidence of acute intracranial hemorrhage. No evidence of mass effect. No evidence of midline shift. Periventricular hypoattenuation is a nonspecific finding but likely represent the sequela of chronic small-vessel disease. There are atherosclerotic calcifications of the carotid siphons. Cerebral ventricles: Subjective mild generalized volume loss and ex vacuo dilation of the ventricles. Paranasal sinuses: There is a complete opacification of the right frontal sinus with associated periosteal thickening. Small mucous retention cysts in a posterior right ethmoid air cell and suspected mucous retention cyst in the right sphenoid sinus. Trace mucosal thickening in the remaining paranasal sinuses. The nasal septum is deviated to the right. No fluid levels. Mastoid air cells: Visualized mastoid air cells are well aerated. Bones/joints: Partially imaged postsurgical changes in the upper cervical spine. No acute fracture. Soft tissues: Unremarkable. CT/CT head wo con* [id number] IMPRESSION: 1. No acute intracranial hemorrhage, mass effect, or midline shift. 2. Paranasal sinus disease as outlined. 3. The nasal septum is deviated to the right.
[2021-10-19 22:04] LABS: Add Urine Microscopic? NO; Charge for UA Resulting for Rev
[2021-10-19 22:11] LABS: Bilirubin Urine Neg (Negative); Blood Urine Neg (Negative); Glucose Urine UA Norm (Normal); Ketones Urine Negative (Negative); Leukocyte Esterase Urine Negative (Negative); Nitrate Urine Negative (Negative); Protein Urine Neg (Negative); Urine Appearance Clear (CLEAR); Urine Color Yellow (Yellow); Urobilinogen Urine Neg (Negative); pH Urine 5 (5-7)
--- NOTE | 2021-10-19 22:48 | W.ED.HA ---
HPI - Headache General: Chief Complaint: Headache Stated Complaint: Headache Time Seen by Provider: 10/19/21 22:48 History of Present Illness: 66-year-old female comes in today with severe headache. Patient has a history of recurrent headaches. Patient reports usually when her headaches get this bad she has come to the ER for shot of morphine . Patient appears nontoxic. Patient is acting appropriate to self. Patient moves all extremities well. Spouse reports no loss of consciousness or seizure activity. Review of Systems General: Reports: 10 or more systems reviewed and unremarkable except in HPI and below Neuro: Reports: headache(s) PFSH ED PFSH: Medical History Acute esophagitis Acute hypokalemia Acute hyponatremia Adrenal insufficiency Altered mental status Alzheimer disease Anemia Atrial fibrillation, new onset C. difficile diarrhea Chronic back pain Chronic diarrhea Chronic diastolic CHF (congestive heart failure) Chronic hyponatremia CKD (chronic kidney disease), stage II Depression Diabetic gastroparesis Dysphagia Generalized anxiety disorder GERD (gastroesophageal reflux disease) Headache Hyperlipidemia Hypertension Hyponatremia Hypothyroidism Insulin dependent type 2 diabetes mellitus Lactic acidosis Lactic acidosis Lewy body dementia Major depressive disorder, recurrent severe without psychotic features Morbid obesity Post-traumatic stress disorder, chronic Tachycardia Surgical History H/O esophagogastroduodenoscopy H/O: hysterectomy History of bunionectomy bilateral Hx of cholecystectomy Status post colonoscopy Family History Mother Hypertension Diabetes Father Hypertension Asthma Other CAD (coronary artery disease) Cancer Denies family history of Anesthesia complication Bleeding disorder Social History Smoking and tobacco status: never smoked Quit status (tobacco): has tried quititng Second hand smoke exposure: Yes Smoking risk assessment/counseling performed?: No Alcohol intake: former Former alcohol use details: Reportedly has not had any alcohol since June Household members: spouse Housing: Manufactured/Mobile home Marital status: Current occupational status: retired History of recent travel: No Physical Exam Const: COMMON NORMALS: alert HENMT: COMMON NORMALS: normocephalic HEAD & SCALP: normocephalic Neck/C-Spine: COMMON NORMALS: full ROM and no meningeal signs Resp: COMMON NORMALS: normal respiratory effort and clear to auscultation bilaterally AUSCULTATION: clear to auscultation bilaterally Cardio: COMMON NORMALS: regular rate and regular rhythm RATE: regular rate RHYTHM: regular rhythm GI: COMMON NORMALS: non-tender Back/Pelvis: COMMON NORMALS: thoracic and lumbar spine normal to inspection Extremity: COMMON NORMALS: normal to inspection Neuro: NERI COMA SCALE: document GCS findings [place] coma scale eye opening: Spontaneous [place] coma scale verbal response: Orientated Neri coma scale motor response: Obey commands Neri coma scale total score: 15 SENSORIUM/ORIENTATION: Yes alert MENINGEAL SIGNS: Yes no meningeal signs GAIT: Yes Normal gait present Skin: COMMON NORMALS: no rashes or lesions noted GENERAL SKIN EXAM: no rashes or lesions noted Course Vital Signs: Vital signs: Vital Signs Temperature 97.6 F 10/19/21 21:05 Pulse Rate 79 10/19/21 21:05 Respiratory Rate 17 10/19/21 21:05 Blood Pressure 180/84 10/19/21 21:05 Pulse Oximetry 95 10/19/21 21:05 Oxygen Delivery Me thod 10/19/21 21:05 MDM - Headache Medical Decision Making 66-year-old female comes in today for complaints of frontal headache. Patient has had similar headaches in the past. Patient reports that this 1 is severe. On exam respirations are even lungs are clear to auscultation. Patient moves all extremities well. Patient answers questions appropriately. Vital signs are normal except for some mild elevation in blood pressure. Differential diagnosis includes intracranial hemorrhage, migraine headache, rhinosinusitis,, and headache. CT of the head noted significant sinus disease of the paranasal sinus. No intracranial bleeding was noted. Reviewed exam with patient with recommendations for treatment. Patient reports that this reminds her of her usual migraine and requested a headache cocktail for her pain. Patient was treated with a headache cocktail of Reglan 10 mg, 15 mg Toradol, 10 mg dexamethasone, and 4 mg morphine. Patient was also covered for rhinosinusitis with Rocephin 1000 mg. Patient will continue with routine medications at home with added Augmentin for her sinus infection. Patient reported understanding and agreed to plan. Lab Data Radiology Impressions Head CT 10/19/21 21:31 IMPRESSION: 1. No acute intracranial hemorrhage, mass effect, or midline shift. 2. Paranasal sinus disease as outlined. 3. The nasal septum is deviated to the right. Laboratory Results Urine Color Yellow (Yellow) 10/19/21 21:40 Urine Appearance Clear (CLEAR) 10/19/21 21:40 Urine pH 5 (5-7) 10/19/21 21:40 Ur Specific [place] 1.010 (1.005-1.030) 10/19/21 21:40 Urine Protein Neg (Negative) 10/19/21 21:40 Urine Glucose (UA) Norm (Normal) 10/19/21 21:40 Urine Ketones Negative (Negative) 10/19/21 21:40 Urine Blood Neg (Negative) 10/19/21 21:40 Urine Nitrate Negative (Negative) 10/19/21 21:40 Urine Bilirubin Neg (Negative) 10/19/21 21:40 Urine Urobilinogen Neg mg/dL (Negative) 10/19/21 21:40 Ur Leukocyte Esterase Negative (Negative) 10/19/21 21:40 Discharge Plan Discharge Patient Disposition: Home Clinical Impression: Migraine, Rhinosinusitis Condition: Stable Prescriptions: New amoxicillin-pot clavulanate 875-125 mg tablet 1 tab PO BID Qty: 14 0RF No Action gabapentin 100 mg capsule 200 mg PO BID pantoprazole 40 mg tablet,delayed release (DR/EC) 40 mg PO QAM metoprolol tartrate 50 mg tablet 25 mg PO TID duloxetine 20 mg capsule,delayed release(DR/EC) 20 mg PO BID sucralfate 1 gram tablet 1 g PO BID mirtazapine 45 mg tablet 45 mg PO BEDTIME insulin aspart U-100 [Novolog Flexpen U-100 Insulin] 100 unit/mL (3 mL) insulin pen See Rx Instructions .ROUTE .COMPLEX Rx Instructions: SLIDING SCALE as needed when blood sugar is over 200 prednisone 1 mg tablet 2.5 mg PO QAM memantine [Namenda] 10 mg tablet 10 mg PO BID Qty: 180 0RF Rx Instructions: Initiate after starter pack memantine [Namenda Titration Brett] 5-10 mg tablets,dose pack See Rx Instructions PO PER PKG DIR Qty: 49 0RF Rx Instructions: PO PER PKG DIR erythromycin 5 mg/gram (0.5 %) ointment 0.5 inch ophthalmic (eye) QID 7 Days Qty: 3.5 0RF Glucerna 1.5 Warner 0.08-1.5 gram-kcal/mL Liquid 1 ea feeding tube .UP TO 5 TIMES A DAY PRN (Reason: malnutrition) buspirone 15 mg tablet 15 mg PO BID Qty: 60 0RF acetaminophen 325 mg tablet 650 - 975 mg PO QID PRN (Reason: Pain) potassium chloride 20 mEq Tablet Extended Release 10 meq PO DAILY PRN (Reason: potassium deficiency ) metformin 1,000 mg Tablet 1,000 mg PO BID@09,20 levothyroxine 50 mcg Tablet 50 mcg PO DAILY@0800 Qty: 30 0RF methocarbamol 750 mg tablet 750 mg PO TID PRN (Reason: Muscle Spasm) hydrocodone-acetaminophen 5-325 mg tablet 1 tab PO Q6H PRN (Reason: pain) Qty: 20 0RF sodium chloride 1 gram tablet 1 g PO BID@,20 15 Days Qty: 30 0RF ondansetron HCl 4 mg Tablet 4 mg PO Q6H PRN (Reason: Nausea And Vomiting) 15 Days Qty: 30 0RF loperamide 2 mg Tablet 2 mg PO BID PRN (Reason: Diarrhea) 15 Days Qty: 15 0RF promethazine 25 mg tablet 25 mg PO TID PRN (Reason: Nausea) 15 Days Qty: 30 0RF metoclopramide HCl 10 mg tablet 5 mg PO DAILY 14 Days Qty: 14 0RF Ativan 1 mg tablet 1 mg PO TID PRN (Reason: anxiety) Qty: 7 0RF Discharge Orders: Discharge ED (Routine); Ordered 10/19/21 Ordered By: Jeremi Dai Referrals: Thu Flores FNP [Primary Care Provider] - Discharge Diet: Usual diet Discharge Activity: Increase activity as tolerated Patient Instructions: General Headache (ED) Activity Restrictions/Additional Instructions: Continue with routine care. Take antibiotic Augmentin 875 mg twice a day for 7 days. Drink plenty of fluids with medication. Follow-up with primary care for further instruction. Return to ER for new concerns. Coding Level of Care Code ED Color Paste Mixer for Navid Simons
[2021-10-19] MEDS: sodium chloride 0.9% 250 ML IV (23:53)
[2021-10-19] MEDS: metoclopramide 5 mg/mL SDV 2 mL 10 MG IVP (23:54)
[2021-10-19] MEDS: ketorolac 30 mg/mL INJ 15 MG IVP (23:55)
[2021-10-19 23:57] VITALS: RESP 20
[2021-10-19] MEDS: dexamethasone 10 mg/mL INJ IVP (23:57)
[2021-10-19] MEDS: morphine 4 mg/mL SDV 1 mL IVP (23:57)
[2021-10-20] MEDS: cefTRIAXone 1,000 MG in sodium chloride 0.9% (plus) 50 ML 100 MG IV (00:03)
== END 2021-10-20 01:05 | disposition home or self-care (01) ==
PROVIDERS: Emergency Medicine; Emergency Provider Nurse Practitioner Family; PCP Nurse Practitioner
DX: G43.909 Migraine, unspecified, not intractable, without status migrainosus (principal); J32.9 Chronic sinusitis, unspecified; Z79.84 Long term (current) use of oral hypoglycemic drugs; Z79.4 Long term (current) use of insulin; G30.9 Alzheimer's disease, unspecified; F02.80 Dementia in other diseases classified elsewhere, unspecified severity, without behavioral disturbance, psychotic disturbance, mood disturbance, and anxiety; I13.0 Hypertensive heart and chronic kidney disease with heart failure and stage 1 through stage 4 chronic kidney disease, or unspecified chronic kidney disease; E11.22 Type 2 diabetes mellitus with diabetic chronic kidney disease; N18.2 Chronic kidney disease, stage 2 (mild); I50.32 Chronic diastolic (congestive) heart failure; E78.5 Hyperlipidemia, unspecified; Z77.22 Contact with and (suspected) exposure to environmental tobacco smoke (acute) (chronic)
CPT/HCPCS: 70450; 81003; 96365; 96375; 99285; J0696; J1100; J1885; J2270; J2765; J7050

== ENCOUNTER 2021-10-23 20:33 | Emergency (ER) | payer OTHER, MEDICARE, SELFPAY ==
[2021-10-23 20:39] VITALS: BMI 23.0
[2021-10-23 20:42] VITALS: BP 138/74; PULSE 76; RESP 16; TEMP 36.6; O2SAT 96
--- NOTE | 2021-10-23 20:56 | W.ED.HA ---
Documented by User: PETE Yuen 10/24/21 00:28 HPI - Headache General: Chief Complaint: Headache Stated Complaint: Panic attack Headache/N/V Time Seen by Provider: 10/23/21 20:47 History of Present Illness: Patient is a 66-year-old female comes to the ED with headache, nausea and vomiting. Past medical history of CHF, GERD and migraines. She has been seen here in the ED for same complaints back on October 19October 09. patient has a history of migraines and anxiety. She says this headache is just like her past migraines. Headache is rated 9 out of 10 and pain is located on the right side of her head. Symptoms started yesterday. She endorses having nausea and vomiting with symptoms. She also endorses photophobia. Patient says that her anxiety is went up since the start of her symptoms and describes feeling like she is going to jump out of her skin. Denies any chest pain, shortness of breath. Associated symptoms: Reports nausea and vomiting; Deny chest pain, fever(s) or rash Review of Systems Const: Denies: fever(s), chills or fatigue Eyes: Denies: change in vision or eye discomfort ENMT: Denies: throat pain, odynophagia, nasal discharge or nasal congestion Card: Denies: chest pain, palpitations, edema, swelling of feet/ankles, dyspnea on exertion or orthopnea Resp: Denies: dyspnea, productive cough or non-productive cough GI: Reports: nausea and vomiting; Denies: abdominal pain, diarrhea, constipation or hematochezia : Denies: flank pain, dysuria or hematuria Musc: Denies: neck pain, back pain or extremity swelling Skin/Breast: Denies: rash or new lesions Neuro: Reports: headache(s); Denies: numbness in extremities or weakness in extremities PFS ED PFSH: Medical History Acute esophagitis Acute hypokalemia Acute hyponatremia Adrenal insufficiency Altered mental status Alzheimer disease Anemia Atrial fibrillation, new onset C. difficile diarrhea Chronic back pain Chronic diarrhea Chronic diastolic CHF (congestive heart failure) Chronic hyponatremia CKD (chronic kidney disease), stage II Depression Diabetic gastroparesis Dysphagia Generalized anxiety disorder GERD (gastroesophageal reflux disease) Headache Hyperlipidemia Hypertension Hyponatremia Hypothyroidism Insulin dependent type 2 diabetes mellitus Lactic acidosis Lactic acidosis Lewy body dementia Major depressive disorder, recurrent severe without psychotic features Morbid obesity Post-traumatic stress disorder, chronic Tachycardia Surgical History H/O esophagogastroduodenoscopy H/O: hysterectomy History of bunionectomy bilateral Hx of cholecystectomy Status post colonoscopy Family History Mother Hypertension Diabetes Father Hypertension Asthma Other CAD (coronary artery disease) Cancer Denies family history of Anesthesia complication Bleeding disorder Social History Smoking and tobacco status: never smoked Quit status (tobacco): has tried quititng Second hand smoke exposure: Yes Smoking risk assessment/counseling performed?: No Alcohol intake: former Former alcohol use details: Reportedly has not had any alcohol since June Household members: spouse Housing: Manufactured/Mobile home Marital status: Current occupational status: retired History of recent travel: No Physical Exam Const: COMMON NORMALS: patient oriented x3 and alert GENERAL APPEARANCE: cooperative HENMT: COMMON NORMALS: normocephalic HEAD & SCALP: normocephalic MOUTH: Normal oral and palatal mucosa present THROAT: posterior oropharynx normal and uvula midline Eye: COMMON NORMALS: Equal, round and reactive pupils present and EOMs intact bilaterally GENERAL EYE: appearance normal, both eyes and all related structures PUPIL: Yes Equal, round and reactive pupils present Neck/C-Spine: COMMON NORMALS: supple GENERAL: Yes normal visual inspection Lymph: LYMPHATIC: no lymphadenopathy noted Resp: COMMON NORMALS: normal respiratory effort, No retractions, No use of accessory muscles and clear to auscultation bilaterally AUSCULTATION: clear to auscultation bilaterally Cardio: COMMON NORMALS: regular rate, regular rhythm, S1 normal heart sound present, S2 normal heart sound present, No gallops present (Cardio), No clicks present (Cardio), No murmurs present (Cardio) and Peripheral pulses 2+ throughout RATE: regular rate RHYTHM: regular rhythm HEART SOUNDS: S1 normal heart sound present and S2 normal heart sound present PERIPHERAL PULSES: Peripheral pulses 2+ throughout GI: COMMON NORMALS: Normal to inspection, nondistended, normoactive bowel sounds present, Soft to palpation, non-tender and no masses PALPATION: Yes Soft to palpation : COMMON NORMALS: Yes no CVA tenderness BLADDER/KIDNEY EXAM: Yes no CVA tenderness Back/Pelvis: COMMON NORMALS: no CVA tenderness Extremity: GENERAL: Yes normal exam except as noted Neuro: COMMON NORMALS: patient oriented x3, CN's II-XII intact bilaterally, moves all extremities, no focal motor deficits and no sensory deficits noted SENSORIUM/ORIENTATION: Yes alert COORDINATION/BALANCE: [id number] test normal SPEECH: speech normal SENSORY EXAM: Yes extremities (intact) MOTOR EXAM: 5/5 motor strength present throughout COORDINATION: [id number] test normal Skin: COMMON NORMALS: no rashes or lesions noted GENERAL SKIN EXAM: no rashes or lesions noted and dry skin Course Consultations: Consultation #1: I talked with Dr. Davis, patient's case and her severe hyponatremia. She thought patient needs admission to ICU. We do not have any ICU beds available. Patient will likely need to be transferred out. Vital Signs: Vital signs: Vital Signs Temperature 97.8 F 10/23/21 22:51 Pulse Rate 76 10/23/21 22:51 Respiratory Rate 16 10/23/21 22:51 Blood Pressure 138/74 10/23/21 22:51 Pulse Oximetry 96 10/23/21 22:51 Oxygen Delivery Me thod 10/23/21 22:51 MDM - Headache Lab Data I reviewed the patient's lab results. : 10/23/21 21:15 10/23/21 21:15 Laboratory Results WBC 8.3 10^3/uL (4.0-10.0) 10/23/21 21:15 RBC 3.99 10^6/uL (4.1-5.3) L 10/23/21 21:15 Hgb 13.0 g/dL (11.5-15.3) 10/23/21 21:15 Hct 37.4 % (37.0-47.0) 10/23/21 21:15 MCV 93.7 fl (81-99) 10/23/21 21:15 MCH 32.6 pg (28.0-34.0) 10/23/21 21:15 MCHC 34.8 g/dL (30.0-36.0) 10/23/21 21:15 RDW 11.9 % (12.1-15.1) L 10/23/21 21:15 Plt Count 232 10^3/cmm (130-400) 10/23/21 21:15 MPV 10.9 fL (7.4-10.4) H 10/23/21 21:15 Neut % (Auto) 63.7 % 10/23/21 21:15 Lymph % (Auto) 23.0 % 10/23/21 21:15 Gillespie % (Auto) 11.0 % 10/23/21 21:15 Eos % (Auto) 1.3 % 10/23/21 21:15 Baso % (Auto) 0.5 % 10/23/21 21:15 Neut # (Auto) 5.30 10^3/uL (1.8-7.7) 10/23/21 21:15 Lymph # (Auto) 1.9 10^3/uL (0.8-4.8) 10/23/21 21:15 Gillespie # (Auto) 0.9 10^3/uL (0.2-0.9) 10/23/21 21:15 Eos # (Auto) 0.1 10^3/uL (0.0-0.8) 10/23/21 21:15 Baso # (Auto) 0.0 10^3/uL (0.0-0.1) 10/23/21 21:15 Nucleated RBC % (auto) 0 % 10/23/21 21:15 Nucleated RBCs # 0.0 /100WBC 10/23/21 21:15 Sodium 118 mmol/L (136-145) L* 10/23/21 21:15 Potassium 3.5 mmol/L (3.5-5.1) 10/23/21 21:15 Chloride 83 mmol/L (98-107) L 10/23/21 21:15 Carbon Dioxide 18 mmol/L (22-29) L 10/23/21 21:15 Anion Gap 20.5 (5-19) H 10/23/21 21:15 BUN 2 mg/dL (8-23) L 10/23/21 21:15 Creatinine 0.5 mg/dL (0.5-0.9) 10/23/21 21:15 GFR Calculation 123.1 mL/min (90-130) 10/23/21 21:15 Glucose 148 mg/dL (65-115) H 08/03/22 21:15 Calculated Osmolality 245 mOsm/kg (285-295) L 10/23/21 21:15 Calcium 8.3 mg/dL (8.5-10.5) L 10/23/21 21:15 Total Bilirubin 0.4 mg/dL (0.15-1.2) 10/23/21 21:15 AST 26 U/L (0-32) 10/23/21 21:15 ALT 17 U/L (0-33) 10/23/21 21:15 Alkaline Phosphatase 102 IU/L (35-105) 10/23/21 21:15 Total Protein 6.1 g/dL (6.6-8.7) L 10/23/21 21:15 Albumin 3.7 g/dL (3.5-5.2) 10/23/21 21:15 Globulin 2.4 g/dL (1.3-4.6) 10/23/21 21:15 Serum Ketones Negative (Negative) 10/23/21 21:15 Discharge Plan Discharge Patient Disposition: Xfer Short-Term Hosp Clinical Impression: Acute hyponatremia, Headache, Vomiting Condition: Stable Referrals: Thu Flores FNP [Primary Care Provider] - Coding Level of Care Code ED Legal Transcriber for Chg Fwd Exam Comprehensive Documented by User: Melissa Garcia MD 10/24/21 00:22 HPI - Headache General: Chief Complaint: Headache Stated Complaint: Panic attack Headache/N/V Time Seen by Provider: 10/23/21 20:47 PFSH ED PFSH: Medical History Acute esophagitis Acute hypokalemia Acute hyponatremia Adrenal insufficiency Altered mental status Alzheimer disease Anemia Atrial fibrillation, new onset C. difficile diarrhea Chronic back pain Chronic diarrhea Chronic diastolic CHF (congestive heart failure) Chronic hyponatremia CKD (chronic kidney disease), stage II Depression Diabetic gastroparesis Dysphagia Generalized anxiety disorder GERD (gastroesophageal reflux disease) Headache Hyperlipidemia Hypertension Hyponatremia Hypothyroidism Insulin dependent type 2 diabetes mellitus Lactic acidosis Lactic acidosis Lewy body dementia Major depressive disorder, recurrent severe without psychotic features Morbid obesity Post-traumatic stress disorder, chronic Tachycardia Surgical History H/O esophagogastroduodenoscopy H/O: hysterectomy History of bunionectomy bilateral Hx of cholecystectomy Status post colonoscopy Family History Mother Hypertension Diabetes Father Hypertension Asthma Other CAD (coronary artery disease) Cancer Denies family history of Anesthesia complication Bleeding disorder Social History Smoking and tobacco status: never smoked Quit status (tobacco): has tried quititng Second hand smoke exposure: Yes Smoking risk assessment/counseling performed?: No Alcohol intake: former Former alcohol use details: Reportedly has not had any alcohol since June Household members: spouse Housing: Manufactured/Mobile home Marital status: Current occupational status: retired History of recent travel: No Course Vital Signs: Vital signs: Vital Signs Temperature 97.8 F 10/23/21 22:51 Pulse Rate 76 10/23/21 22:51 Respiratory Rate 16 10/23/21 22:51 Blood Pressure 138/74 10/23/21 22:51 Pulse Oximetry 96 10/23/21 22:51 Oxygen Delivery Me thod 10/23/21 22:51 MDM - Headache Medical Decision Making Patient presents here with vomiting along with severe hyponatremia likely from her vomiting she is otherwise well-appearing here spoke to physician at [facility] and will transfer there as we have no bed availability here. Lab Data : 10/23/21 21:15 10/23/21 21:15 Laboratory Results WBC 8.3 10^3/uL (4.0-10.0) 10/23/21 21:15 RBC 3.99 10^6/uL (4.1-5.3) L 10/23/21 21:15 Hgb 13.0 g/dL (11.5-15.3) 10/23/21 21:15 Hct 37.4 % (37.0-47.0) 10/23/21 21:15 MCV 93.7 fl (81-99) 10/23/21 21:15 MCH 32.6 pg (28.0-34.0) 10/23/21 21:15 MCHC 34.8 g/dL (30.0-36.0) 10/23/21 21:15 RDW 11.9 % (12.1-15.1) L 10/23/21 21:15 Plt Count 232 10^3/cmm (130-400) 10/23/21 21:15 MPV 10.9 fL (7.4-10.4) H 10/23/21 21:15 Neut % (Auto) 63.7 % 10/23/21 21:15 Lymph % (Auto) 23.0 % 10/23/21 21:15 Gillespie % (Auto) 11.0 % 10/23/21 21:15 Eos % (Auto) 1.3 % 10/23/21 21:15 Baso % (Auto) 0.5 % 10/23/21 21:15 Neut # (Auto) 5.30 10^3/uL (1.8-7.7) 10/23/21 21:15 Lymph # (Auto) 1.9 10^3/uL (0.8-4.8) 10/23/21 21:15 Gillespie # (Auto) 0.9 10^3/uL (0.2-0.9) 10/23/21 21:15 Eos # (Auto) 0.1 10^3/uL (0.0-0.8) 10/23/21 21:15 Baso # (Auto) 0.0 10^3/uL (0.0-0.1) 10/23/21 21:15 Nucleated RBC % (auto) 0 % 10/23/21 21:15 Nucleated RBCs # 0.0 /100WBC 10/23/21 21:15 Sodium 118 mmol/L (136-145) L* 10/23/21 21:15 Potassium 3.5 mmol/L (3.5-5.1) 10/23/21 21:15 Chloride 83 mmol/L (98-107) L 10/23/21 21:15 Carbon Dioxide 18 mmol/L (22-29) L 10/23/21 21:15 Anion Gap 20.5 (5-19) H 10/23/21 21:15 BUN 2 mg/dL (8-23) L 10/23/21 21:15 Creatinine 0.5 mg/dL (0.5-0.9) 10/23/21 21:15 GFR Calculation 123.1 mL/min (90-130) 10/23/21 21:15 Glucose 148 mg/dL (65-115) H 10/23/21 21:15 Calculated Osmolality 245 mOsm/kg (285-295) L 10/23/21 21:15 Calcium 8.3 mg/dL (8.5-10.5) L 10/23/21 21:15 Total Bilirubin 0.4 mg/dL (0.15-1.2) 10/23/21 21:15 AST 26 U/L (0-32) 10/23/21 21:15 ALT 17 U/L (0-33) 10/23/21 21:15 Alkaline Phosphatase 102 IU/L (35-105) 10/23/21 21:15 Total Protein 6.1 g/dL (6.6-8.7) L 10/23/21 21:15 Albumin 3.7 g/dL (3.5-5.2) 10/23/21 21:15 Globulin 2.4 g/dL (1.3-4.6) 10/23/21 21:15 Serum Ketones Negative (Negative) 10/23/21 21:15 Critical Care Time Critical Care Time: Critical Care Time: Yes Total Critical Care Time: 40 Attestation: The high probability of a clinically significant, sudden or life threatening deterioration of the patient's endocrine system(s) required my full and direct attention, intervention and personal management. The critical care time is as shown. This time is in addition to time spent performing any reported procedures but includes the following: [x] Data and vital sign review and interpretation [x] Patient assessment, examination and intervention [x] Documentation [x] Medication orders and management Discharge Plan Discharge Patient Disposition: Xfer Short-Term Hosp Clinical Impression: Acute hyponatremia, Headache, Vomiting Condition: Stable Referrals: Thu Flores FNP [Primary Care Provider] - Coding Level of Care Code ED Legal Transcriber for Padminig Fwd Exam Comprehensive
[2021-10-23 21:44] LABS: Basophils % 0.5 %; Eosinophils # 0.1 10^3/uL (0.0-0.8); Eosinophils % 1.3 %; Hematocrit 37.4 % (37.0-47.0); Lymphocytes # 1.9 10^3/uL (0.8-4.8); Mean Corpuscular HGB Conc 34.8 g/dL (30.0-36.0); Mean Corpuscular Hemoglobin 32.6 pg (28.0-34.0); Mean Corpuscular Volume 93.7 fl (81-99); Mean Platelet Volume 10.9 fL (7.4-10.4); Monocytes # 0.9 10^3/uL (0.2-0.9); Neutrophils % 63.7 %; Nucleated Red Blood Cells % 0 %; Platelet Count 232 10^3/cmm (130-400); Red Blood Count 3.99 10^6/uL (4.1-5.3); Red Cell Distribution Width 11.9 % (12.1-15.1); White Blood Count 8.3 10^3/uL (4.0-10.0)
[2021-10-23] MEDS: sodium chloride 0.9% 500 ML 999 ML IV (21:57)
[2021-10-23 22:08] LABS: Albumin Level 3.7 g/dL (3.5-5.2); Alkaline Phosphatase 102 IU/L (35-105); Blood Urea Nitrogen 2 mg/dL (8-23); Calcium 8.3 mg/dL (8.5-10.5); Carbon Dioxide 18 mmol/L (22-29); Chloride 83 mmol/L (98-107); Globulin 2.4 g/dL (1.3-4.6); Glomerular Filtration Rate 123.1 mL/min (90-130); Glucose 148 mg/dL (65-115); Osmolality Calculated 245 mOsm/kg (285-295); Total Bilirubin 0.4 mg/dL (0.15-1.2); Total Protein 6.1 g/dL (6.6-8.7)
[2021-10-23 22:09] LABS: Alanine Aminotransferase 17 U/L (0-33); Anion Gap 20.5 (5-19); Aspartate Amino Transferase 26 U/L (0-32); Potassium 3.5 mmol/L (3.5-5.1)
[2021-10-23 22:11] LABS: Slide Review Slide Review Perform
[2021-10-23 22:15] LABS: Sodium 118 mmol/L (136-145)
[2021-10-23] MEDS: ketorolac 60 mg/2 mL INJ IM (22:21)
[2021-10-23] MEDS: diphenhydrAMINE 50 mg/mL SDV 1mL 25 MG IVP (22:31)
[2021-10-23] MEDS: metoclopramide 5 mg/mL SDV 2 mL 10 MG IVP (22:32)
[2021-10-23] MEDS: dexamethasone 4 mg/mL INJ 8 MG IVP (22:33)
[2021-10-23 22:51] VITALS: BP 138/74; PULSE 76; RESP 16; TEMP 36.6; O2SAT 96
[2021-10-23] MEDS: LORazepam 2 mg/mL INJ 1 mL 0.5 MG IVP (23:01)
[2021-10-24 00:24] LABS: Ketone (Acetest) Serum Negative (Negative)
[2021-10-24 00:53] LABS: Add Urine Microscopic? NO; Charge for UA Resulting for Rev
[2021-10-24 01:02] LABS: Bilirubin Urine Neg (Negative); Blood Urine Neg (Negative); Glucose Urine UA Norm (Normal); Ketones Urine Negative (Negative); Leukocyte Esterase Urine Negative (Negative); Nitrate Urine Negative (Negative); Protein Urine Neg (Negative); Urine Appearance Clear (CLEAR); Urine Color Colorless (Yellow); Urobilinogen Urine Norm (Negative); pH Urine 6 (5-7)
--- NOTE | 2021-10-24 01:11 | PC.NURSE ---
IV Ativan provided by pharmacy - not loaded in pyxis. 2 RN (Meagan Persaud/Shena Parry) witnessed 0.75 ml/1.5 mg Ativan wasted
[2021-10-24 05:40] VITALS: BP 147/73; PULSE 84; RESP 16; O2SAT 97
[2021-10-24] MEDS: morphine 4 mg/mL SDV 1 mL IVP (05:40)
[2021-10-24 05:54] LABS: Anion Gap 15.3 (5-19); Blood Urea Nitrogen 5 mg/dL (8-23); Calcium 8.2 mg/dL (8.5-10.5); Carbon Dioxide 22 mmol/L (22-29); Chloride 86 mmol/L (98-107); Glomerular Filtration Rate 123.1 mL/min (90-130); Glucose 253 mg/dL (65-115); Osmolality Calculated 256 mOsm/kg (285-295); Potassium 3.3 mmol/L (3.5-5.1); Sodium 120 mmol/L (136-145)
[2021-10-24] MEDS: sodium chloride 0.9% 500 ML 999 ML IV (06:03)
[2021-10-24] MEDS: LORazepam 1 mg Tablet PO (06:03)
[2021-10-24 07:00] VITALS: BP 140/75; PULSE 89; RESP 20; O2SAT 95
[2021-10-24] MEDS: ketorolac 30 mg/mL INJ IVP (08:57)
[2021-10-24] MEDS: promethazine 25 mg/mL SDV 1 mL IM (08:57)
[2021-10-24 09:00] VITALS: BP 157/87; PULSE 79; O2SAT 95
[2021-10-24 09:06] VITALS: BP 157/87; PULSE 79; O2SAT 95
== END 2021-10-24 09:09 | disposition short-term general hospital (02) ==
PROVIDERS: Physician Assistant; Emergency Provider Emergency Medicine; PCP Nurse Practitioner
DX: R51.9 Headache, unspecified (principal); R11.11 Vomiting without nausea; E87.1 Hypo-osmolality and hyponatremia; G30.9 Alzheimer's disease, unspecified; F02.80 Dementia in other diseases classified elsewhere, unspecified severity, without behavioral disturbance, psychotic disturbance, mood disturbance, and anxiety; I13.0 Hypertensive heart and chronic kidney disease with heart failure and stage 1 through stage 4 chronic kidney disease, or unspecified chronic kidney disease; E11.22 Type 2 diabetes mellitus with diabetic chronic kidney disease; N18.2 Chronic kidney disease, stage 2 (mild); I50.32 Chronic diastolic (congestive) heart failure; E78.5 Hyperlipidemia, unspecified; Z77.22 Contact with and (suspected) exposure to environmental tobacco smoke (acute) (chronic)
CPT/HCPCS: 36415; 80048; 80053; 81003; 82009; 85025; 96361; 96372; 96374; 96375; 99285; J1100; J1200; J1885; J2060; J2270; J2550; J2765; J7040

== ENCOUNTER → 2021-10-29 14:07 | Outpatient (BNVA) | payer OTHER, SELFPAY | PROVIDERS: PCP Nurse Practitioner; Visit Provider Internal Medicine | DX: E27.40 Unspecified adrenocortical insufficiency (principal); E87.1 Hypo-osmolality and hyponatremia; Z93.1 Gastrostomy status; F17.290 Nicotine dependence, other tobacco product, uncomplicated | CPT/HCPCS: 99214 ==

== ENCOUNTER → 2021-10-31 11:00 | Outpatient (BNVA) | payer OTHER, SELFPAY | PROVIDERS: PCP Nurse Practitioner; Visit Provider Specialist | DX: G43.711 Chronic migraine without aura, intractable, with status migrainosus (principal); G31.83 Neurocognitive disorder with Lewy bodies; F02.80 Dementia in other diseases classified elsewhere, unspecified severity, without behavioral disturbance, psychotic disturbance, mood disturbance, and anxiety | CPT/HCPCS: 64615; 99212; 99213; J0585 ==

== ENCOUNTER 2021-11-03 19:36 | Emergency (ER) | payer OTHER, MEDICARE, SELFPAY ==
[2021-11-03 19:44] VITALS: BP 151/86; PULSE 111; RESP 16; TEMP 36.3; O2SAT 95
--- NOTE | 2021-11-03 22:57 | ED_ITS ---
HPI - Headache General: Chief Complaint: Headache Stated Complaint: Migrane, anxiety Time Seen by Provider: 11/03/21 22:51 History of Present Illness: 66-year-old female comes in today with complaints of headache. Patient reports this is her usual migraine type headache. Patient is also concerned about her sodium being low as this can sometimes be a trigger for her headaches. Patient appears in mild to moderate pain. Patient appears chronically ill. Associated symptoms: Deny chest pain or fever(s) Review of Systems Const: Denies: fever(s) Card: Denies: chest pain Resp: Denies: dyspnea Neuro: Reports: headache(s) [facility] ED PFSH: Medical History Acute esophagitis Acute hypokalemia Acute hyponatremia Adrenal insufficiency Altered mental status Alzheimer disease Anemia Atrial fibrillation, new onset C. difficile diarrhea Chronic back pain Chronic diarrhea Chronic diastolic CHF (congestive heart failure) Chronic hyponatremia CKD (chronic kidney disease), stage II Depression Diabetic gastroparesis Dysphagia Generalized anxiety disorder GERD (gastroesophageal reflux disease) Headache Hyperlipidemia Hypertension Hyponatremia Hypothyroidism Insulin dependent type 2 diabetes mellitus Lactic acidosis Lactic acidosis Lewy body dementia Major depressive disorder, recurrent severe without psychotic features Morbid obesity Post-traumatic stress disorder, chronic Tachycardia Surgical History H/O esophagogastroduodenoscopy H/O: hysterectomy History of bunionectomy bilateral Hx of cholecystectomy Status post colonoscopy Family History Mother Hypertension Diabetes Father Hypertension Asthma Other CAD (coronary artery disease) Cancer Denies family history of Anesthesia complication Bleeding disorder Social History Smoking and tobacco status: current every day smoker cigars Cigars smoked per week: 35 Years smoked cigars: 53 Cigar details: 1 PPD Quit status (tobacco): has tried quititng Second hand smoke exposure: Yes Smoking risk assessment/counseling performed?: No Alcohol intake: former Former alcohol use details: Reportedly has not had any alcohol since June Household members: spouse Housing: Manufactured/Mobile home Marital status: Current occupational status: retired History of recent travel: No Physical Exam 2 Const: COMMON NORMALS: alert HENMT: COMMON NORMALS: normocephalic HEAD & SCALP: normocephalic Neck/C-Spine: COMMON NORMALS: full ROM and no meningeal signs Resp: COMMON NORMALS: normal respiratory effort Cardio: COMMON NORMALS: regular rate RATE: regular rate GI: COMMON NORMALS: non-tender Extremity: COMMON NORMALS: normal to inspection Neuro: NERI COMA SCALE: document GCS findings Neri coma scale eye open ing: Spontaneous Neri coma scale verbal response: Orientated Neri coma scale motor response: Obey commands Neri coma scale total score: 15 SENSORIUM/ORIENTATION: Yes alert MENINGEAL SIGNS: Yes no meningeal signs Skin: NARRATIVE SKIN EXAM: Senile purpura is noted. Fair skin turgor. Course Vital Signs: Vital signs: Vital Signs Temperature 97.3 F L 11/04/21 01:16 Pulse Rate 104 H 11/04/21 01:16 Respiratory Rate 16 11/04/21 01:16 Blood Pressure 147/85 11/04/21 01:16 Pulse Oximetry 96 11/04/21 01:16 Oxygen Delivery Me thod 11/03/21 19:44 MDM - Headache Medical Decision Making 66-year-old female comes in today for complaints of headache and concern for low sodium. On exam patient appears chronically ill but nontoxic. Respirations are even lungs are clear to auscultation. No meningeal signs or focal neural deficits are noted. Differential diagnosis includes but not limited to migraine, tension headache, hyponatremia. Patient's sodium is better than the last blood draw is at 124 now which it was 128 before. Patient was given 4 mg of morphine and 10 mg of dexamethasone for her headache with improvement. Patient was also given 1 mg of Ativan for increased anxiety after frequent needlesticks for her sodium level. Lab Data : 11/04/21 00:25 Laboratory Results Sodium 124 mmol/L (136-145) L 11/04/21 00:25 Potassium 4.1 mmol/L (3.5-5.1) 11/04/21 00:25 Chloride 87 mmol/L (98-107) L 11/04/21 00:25 Carbon Dioxide 26 mmol/L (22-29) 11/04/21 00:25 Anion Gap 15.1 (5-19) 11/04/21 00:25 BUN 7 mg/dL (8-23) L 11/04/21 00:25 Creatinine 0.4 mg/dL (0.5-0.9) L 11/04/21 00:25 GFR Calculation 159.2 mL/min (90-130) H 11/04/21 00:25 Glucose 150 mg/dL (65-115) H 11/04/21 00:25 Calculated Osmolality 259 mOsm/kg (285-295) L 11/04/21 00:25 Calcium 9.7 mg/dL (8.5-10.5) 11/04/21 00:25 Discharge Plan Discharge Patient Disposition: Home Clinical Impression: Migraine, Hyponatremia Condition: Stable Prescriptions: No Action gabapentin 100 mg capsule 200 mg PO BID pantoprazole 40 mg tablet,delayed release (DR/EC) 40 mg PO QAM metoprolol tartrate 50 mg tablet 25 mg PO TID duloxetine 20 mg capsule,delayed release(DR/EC) 20 mg PO BID sucralfate 1 gram tablet 1 g PO BID mirtazapine 45 mg tablet 45 mg PO BEDTIME insulin aspart U-100 [Novolog Flexpen U-100 Insulin] 100 unit/mL (3 mL) insulin pen See Rx Instructions .ROUTE .COMPLEX Rx Instructions: SLIDING SCALE as needed when blood sugar is over 200 prednisone 1 mg tablet 2.5 mg PO QAM memantine [Namenda] 10 mg tablet 10 mg PO BID Qty: 180 0RF Rx Instructions: Initiate after starter pack memantine [Namenda Titration Brett] 5-10 mg tablets,dose pack See Rx Instructions PO PER PKG DIR Qty: 49 0RF Rx Instructions: PO PER PKG DIR erythromycin 5 mg/gram (0.5 %) ointment 0.5 inch ophthalmic (eye) QID 7 Days Qty: 3.5 0RF Glucerna 1.5 Warner 0.08-1.5 gram-kcal/mL Liquid 1 ea feeding tube .UP TO 5 TIMES A DAY PRN (Reason: malnutrition) buspirone 15 mg tablet 15 mg PO BID Qty: 60 0RF acetaminophen 325 mg tablet 650 - 975 mg PO QID PRN (Reason: Pain) potassium chloride 20 mEq Tablet Extended Release 10 meq PO DAILY PRN (Reason: potassium deficiency ) metformin 1,000 mg Tablet 1,000 mg PO BID@09,20 levothyroxine 50 mcg Tablet 50 mcg PO DAILY@0800 Qty: 30 0RF methocarbamol 750 mg tablet 750 mg PO TID PRN (Reason: Muscle Spasm) hydrocodone-acetaminophen 5-325 mg tablet 1 tab PO Q6H PRN (Reason: pain) Qty: 20 0RF sodium chloride 1 gram tablet 1 g PO BID@,20 15 Days Qty: 30 0RF ondansetron HCl 4 mg Tablet 4 mg PO Q6H PRN (Reason: Nausea And Vomiting) 15 Days Qty: 30 0RF loperamide 2 mg Tablet 2 mg PO BID PRN (Reason: Diarrhea) 15 Days Qty: 15 0RF promethazine 25 mg tablet 25 mg PO TID PRN (Reason: Nausea) 15 Days Qty: 30 0RF metoclopramide HCl 10 mg tablet 5 mg PO DAILY 14 Days Qty: 14 0RF amoxicillin-pot clavulanate 875-125 mg tablet 1 tab PO BID Qty: 14 0RF Ativan 1 mg tablet 1 mg PO TID PRN (Reason: anxiety) Qty: 7 0RF Discharge Orders: Discharge ED (Routine); Ordered 11/04/21 Ordered By: Jeremi Dai Referrals: Thu Flores FNP [Primary Care Provider] - Discharge Diet: Usual diet Discharge Activity: Increase activity as tolerated Patient Instructions: Opioid Safety Activity Restrictions/Additional Instructions: Continue with routine care. Follow-up with primary care for further instructions. Return to ER for new concerns. Coding Level of Care Code ED Equipment Maintenance Tech for Navid Fwpaty Exam Comprehensive
[2021-11-03] MEDS: metoclopramide 5 mg/mL SDV 2 mL 10 MG IM (23:43)
[2021-11-03] MEDS: morphine 4 mg/mL SDV 1 mL IM (23:43)
[2021-11-03] MEDS: LORazepam 1 mg Tablet PO (23:54)
[2021-11-04 00:59] LABS: Blood Urea Nitrogen 7 mg/dL (8-23); Calcium 9.7 mg/dL (8.5-10.5); Carbon Dioxide 26 mmol/L (22-29); Chloride 87 mmol/L (98-107); Glomerular Filtration Rate 159.2 mL/min (90-130); Glucose 150 mg/dL (65-115); Osmolality Calculated 259 mOsm/kg (285-295); Sodium 124 mmol/L (136-145)
[2021-11-04 01:06] LABS: Anion Gap 15.1 (5-19); Potassium 4.1 mmol/L (3.5-5.1)
[2021-11-04 01:16] VITALS: BP 147/85; PULSE 104; RESP 16; TEMP 36.3; O2SAT 96
== END 2021-11-04 01:17 | disposition home or self-care (01) ==
PROVIDERS: Emergency Provider Nurse Practitioner Family; PCP Nurse Practitioner
DX: G43.909 Migraine, unspecified, not intractable, without status migrainosus (principal); E87.1 Hypo-osmolality and hyponatremia; Z79.84 Long term (current) use of oral hypoglycemic drugs; Z79.4 Long term (current) use of insulin; F17.210 Nicotine dependence, cigarettes, uncomplicated; G30.9 Alzheimer's disease, unspecified; F02.80 Dementia in other diseases classified elsewhere, unspecified severity, without behavioral disturbance, psychotic disturbance, mood disturbance, and anxiety; I13.0 Hypertensive heart and chronic kidney disease with heart failure and stage 1 through stage 4 chronic kidney disease, or unspecified chronic kidney disease; E11.22 Type 2 diabetes mellitus with diabetic chronic kidney disease; N18.2 Chronic kidney disease, stage 2 (mild); I50.32 Chronic diastolic (congestive) heart failure; E78.5 Hyperlipidemia, unspecified; G31.83 Neurocognitive disorder with Lewy bodies
CPT/HCPCS: 36415; 80048; 99284; J2270; J2765

== ENCOUNTER 2021-11-05 05:31 | Emergency (ER) | payer OTHER, MEDICARE, SELFPAY ==
[2021-11-05 05:35] VITALS: BP 155/85; PULSE 124; RESP 20; TEMP 36.6; O2SAT 93; BMI 23.7
--- NOTE | 2021-11-05 05:56 | W.ED.ANXIETY ---
HPI - Anxiety General: Chief Complaint: Anxiety Stated Complaint: anxiety Time Seen by Provider: 11/05/21 05:55 Source: patient Mode of arrival: ambulatory History of Present Illness: 66 yo female presents tho the ER wtih complaints of anxiety despite having taken several hydroxyzine yesterday. Patient has had multiple ER visits for anxiety issues. She [facility] a [facility] usually uses hydroxyzine last time she was in the ER she was given a short prescription for Ativan. States she took 3 hydroxyzine yesterday and still having anxiety issues this morning. She denies any other recent change in her medicines no recent illnesses. MD complaint: anxiety Onset (ago): day(s) Severity: moderate Quality: constant Place: home History of similar episodes: Yes Provoking factors: none known Relieving factors: nothing Exacerbating factors: nothing Associated symptoms: Deny anorexia, chest pain, chills, confusion, diaphoresis, fever(s), headache(s), malaise, nausea, palpitations, short of breath, syncope, vomiting or weakness Review of Systems Const: Denies: fever(s), chills, fatigue, malaise or diaphoresis ENMT: Denies: throat pain, ear or mastoid pain, nasal discharge or nasal congestion Card: Denies: chest pain, palpitations or syncope Resp: Denies: dyspnea, productive cough or non-productive cough GI: Denies: abdominal pain, nausea or vomiting : Denies: flank pain, difficulty voiding, dysuria, urinary frequency or urinary urgency Skin/Breast: Denies: rash or pruritus Neuro: Denies: headache(s) or confusion PFSH ED PFSH: Medical History Acute esophagitis Acute hypokalemia Acute hyponatremia Adrenal insufficiency Altered mental status Alzheimer disease Anemia Atrial fibrillation, new onset C. difficile diarrhea Chronic back pain Chronic diarrhea Chronic diastolic CHF (congestive heart failure) Chronic hyponatremia CKD (chronic kidney disease), stage II Depression Diabetic gastroparesis Dysphagia Generalized anxiety disorder GERD (gastroesophageal reflux disease) Headache Hyperlipidemia Hypertension Hyponatremia Hypothyroidism Insulin dependent type 2 diabetes mellitus Lactic acidosis Lactic acidosis Lewy body dementia Major depressive disorder, recurrent severe without psychotic features Morbid obesity Post-traumatic stress disorder, chronic Tachycardia Surgical History H/O esophagogastroduodenoscopy H/O: hysterectomy History of bunionectomy bilateral Hx of cholecystectomy Status post colonoscopy Family History Mother Hypertension Diabetes Father Hypertension Asthma Other CAD (coronary artery disease) Cancer Denies family history of Anesthesia complication Bleeding disorder Social History Smoking and tobacco status: current every day smoker cigars Cigars smoked per week: 35 Years smoked cigars: 53 Cigar details: 1 PPD Quit status (tobacco): has tried quititng Second hand smoke exposure: Yes Smoking risk assessment/counseling performed?: No Alcohol intake: former Former alcohol use details: Reportedly has not had any alcohol since June Household members: spouse Housing: Monitoring Division/Mobile home Marital status: Current occupational status: retired History of recent travel: No Physical Exam Const: COMMON NORMALS: no acute distress GENERAL APPEARANCE: cooperative and comfortable ORIENTATION/CONSCIOUSNESS: Yes awake, Yes oriented to person, Yes oriented to place and Yes oriented to time HENMT: COMMON NORMALS: normocephalic, atraumatic and hearing grossly normal bilaterally HEAD & SCALP: normocephalic and atraumatic Resp: COMMON NORMALS: normal respiratory effort, No retractions, No use of accessory muscles and clear to auscultation bilaterally AUSCULTATION: clear to auscultation bilaterally Cardio: COMMON NORMALS: regular rate, regular rhythm and No murmurs present (Cardio) RATE: regular rate RHYTHM: regular rhythm GI: COMMON NORMALS: Soft to palpation and No hepatosplenomegaly present AUSCULTATION: Yes normoactive bowel sounds PALPATION: Yes Soft to palpation, No Tenderness to palpation present (GI), No Guarding due to palpation present (GI) and Yes No hepatosplenomegaly present Extremity: COMMON NORMALS: normal to inspection, capillary refill normal, no clubbing, cyanosis or edema, no calf tenderness and no pedal edema Neuro: SENSORIUM/ORIENTATION: Yes oriented to person, Yes oriented to place and Yes oriented to time Skin: COMMON NORMALS: no rashes or lesions noted GENERAL SKIN EXAM: no rashes or lesions noted Course Vital Signs: Vital signs: Vital Signs Temperature 97.9 F 11/05/21 05:35 Pulse Rate 124 H 11/05/21 05:35 Respiratory Rate 20 H 11/05/21 05:35 Blood Pressure 155/85 11/05/21 05:35 Pulse Oximetry 93 11/05/21 05:35 Oxygen Delivery Me thod 11/05/21 05:35 MDM - Anxiety Medical Decision Making Patient not suicidal or homicidal impaired is given p.o. Ativan and low-dose of Zyprexa. We will discharge her home have her follow-up with her psychiatrist this week. Medical Records I reviewed the patient's medical records. Lab Data I reviewed the patient's lab results. Discharge Plan Discharge Patient Disposition: Home Clinical Impression: Acute anxiety Condition: Stable Prescriptions: No Action gabapentin 100 mg capsule 200 mg PO BID pantoprazole 40 mg tablet,delayed release (DR/EC) 40 mg PO QAM metoprolol tartrate 50 mg tablet 25 mg PO TID duloxetine 20 mg capsule,delayed release(DR/EC) 20 mg PO BID sucralfate 1 gram tablet 1 g PO BID mirtazapine 45 mg tablet 45 mg PO BEDTIME insulin aspart U-100 [Novolog Flexpen U-100 Insulin] 100 unit/mL (3 mL) insulin pen See Rx Instructions .ROUTE .COMPLEX Rx Instructions: SLIDING SCALE as needed when blood sugar is over 200 prednisone 1 mg tablet 2.5 mg PO QAM memantine [Namenda] 10 mg tablet 10 mg PO BID Qty: 180 0RF Rx Instructions: Initiate after starter pack memantine [Namenda Titration Brett] 5-10 mg tablets,dose pack See Rx Instructions PO PER PKG DIR Qty: 49 0RF Rx Instructions: PO PER PKG DIR erythromycin 5 mg/gram (0.5 %) ointment 0.5 inch ophthalmic (eye) QID 7 Days Qty: 3.5 0RF Glucerna 1.5 Warner 0.08-1.5 gram-kcal/mL Liquid 1 ea feeding tube .UP TO 5 TIMES A DAY PRN (Reason: malnutrition) buspirone 15 mg tablet 15 mg PO BID Qty: 60 0RF acetaminophen 325 mg tablet 650 - 975 mg PO QID PRN (Reason: Pain) potassium chloride 20 mEq Tablet Extended Release 10 meq PO DAILY PRN (Reason: potassium deficiency ) metformin 1,000 mg Tablet 1,000 mg PO BID@ levothyroxine 50 mcg Tablet 50 mcg PO DAILY@0800 Qty: 30 0RF methocarbamol 750 mg tablet 750 mg PO TID PRN (Reason: Muscle Spasm) hydrocodone-acetaminophen 5-325 mg tablet 1 tab PO Q6H PRN (Reason: pain) Qty: 20 0RF sodium chloride 1 gram tablet 1 g PO BID@09,20 15 Days Qty: 30 0RF ondansetron HCl 4 mg Tablet 4 mg PO Q6H PRN (Reason: Nausea And Vomiting) 15 Days Qty: 30 0RF loperamide 2 mg Tablet 2 mg PO BID PRN (Reason: Diarrhea) 15 Days Qty: 15 0RF promethazine 25 mg tablet 25 mg PO TID PRN (Reason: Nausea) 15 Days Qty: 30 0RF metoclopramide HCl 10 mg tablet 5 mg PO DAILY 14 Days Qty: 14 0RF amoxicillin-pot clavulanate 875-125 mg tablet 1 tab PO BID Qty: 14 0RF Ativan 1 mg tablet 1 mg PO TID PRN (Reason: anxiety) Qty: 7 0RF Discharge Orders: Discharge ED (Routine); Ordered 11/05/21 Ordered By: Darek Barahona Referrals: Thu Flores FNP [Primary Care Provider] - Patient Instructions: Opioid Safety Activity Restrictions/Additional Instructions: Contact your psychiatrist and follow-up this week to reevaluate medication regimen for your anxiety. Coding Level of Care Code ED Spacecraft Systems Engineer for Navid Simons
[2021-11-05] MEDS: OLANZapine 5 mg TABLET 2.5 MG PO (06:12)
[2021-11-05] MEDS: LORazepam 2 mg Tablet PO (06:13)
== END 2021-11-05 06:20 | disposition home or self-care (01) ==
PROVIDERS: Emergency Provider Family Medicine; PCP Nurse Practitioner
DX: F41.9 Anxiety disorder, unspecified (principal); Z79.84 Long term (current) use of oral hypoglycemic drugs; Z79.4 Long term (current) use of insulin; F17.210 Nicotine dependence, cigarettes, uncomplicated; I13.0 Hypertensive heart and chronic kidney disease with heart failure and stage 1 through stage 4 chronic kidney disease, or unspecified chronic kidney disease; E11.22 Type 2 diabetes mellitus with diabetic chronic kidney disease; N18.2 Chronic kidney disease, stage 2 (mild); I50.32 Chronic diastolic (congestive) heart failure; G30.9 Alzheimer's disease, unspecified; F02.80 Dementia in other diseases classified elsewhere, unspecified severity, without behavioral disturbance, psychotic disturbance, mood disturbance, and anxiety; E78.5 Hyperlipidemia, unspecified
CPT/HCPCS: 99283

== ENCOUNTER 2021-12-08 07:31 | Emergency (ER) | payer OTHER, SELFPAY ==
[2021-12-08 07:48] VITALS: BP 160/76; PULSE 78; RESP 16; TEMP 37.4; O2SAT 95; BMI 23.0
--- NOTE | 2021-12-08 07:56 | ED_ITS ---
HPI - Headache General: Chief Complaint: Headache Stated Complaint: migraine Time Seen by Provider: 12/08/21 07:32 Source: patient Mode of arrival: ambulatory Limitations: no limitations History of Present Illness: 66-year-old female has a history of migraine states she had a migraine over the last 2 days states she has tried meds at home with no relief. States her headaches currently 6 out of 10 has photophobia and phonophobia. She states that she has also had low sodium levels and wants to have her sodium checked. Denies any vomiting or diarrhea. Associated symptoms: Deny chest pain, fever(s), nausea, rash or vomiting Review of Systems Const: Denies: fever(s), chills, body aches or change in appetite Eyes: Denies: blurry vision or eye discomfort ENMT: Denies: throat pain or dental pain Card: Denies: chest pain Resp: Denies: dyspnea GI: Denies: abdominal pain, nausea, vomiting or diarrhea : Denies: dysuria Musc: Denies: neck pain or back pain Skin/Breast: Denies: rash Neuro: Reports: headache(s) Psych: Denies: depression Jeremiah/Lymph: Denies: easy bruising All/Imm: Denies: urticaria PFSH ED PFSH: Medical History Acute esophagitis Acute hypokalemia Acute hyponatremia Adrenal insufficiency Altered mental status Alzheimer disease Anemia Atrial fibrillation, new onset C. difficile diarrhea Chronic back pain Chronic diarrhea Chronic diastolic CHF (congestive heart failure) Chronic hyponatremia CKD (chronic kidney disease), stage II Depression Diabetic gastroparesis Dysphagia Generalized anxiety disorder GERD (gastroesophageal reflux disease) Headache Hyperlipidemia Hypertension Hyponatremia Hypothyroidism Insulin dependent type 2 diabetes mellitus Lactic acidosis Lactic acidosis Lewy body dementia Major depressive disorder, recurrent severe without psychotic features Morbid obesity Post-traumatic stress disorder, chronic Tachycardia Surgical History H/O esophagogastroduodenoscopy H/O: hysterectomy History of bunionectomy bilateral Hx of cholecystectomy Status post colonoscopy Family History Mother Hypertension Diabetes Father Hypertension Asthma Other CAD (coronary artery disease) Cancer Denies family history of Anesthesia complication Bleeding disorder Social History Smoking and tobacco status: current every day smoker cigars Cigars smoked per week: 35 Years smoked cigars: 53 Cigar details: 1 PPD Quit status (tobacco): has tried quititng Second hand smoke exposure: Yes Smoking risk assessment/counseling performed?: No Alcohol intake: former Former alcohol use details: Reportedly has not had any alcohol since June Household members: spouse Housing: Manufactured/Mobile home Marital status: Current occupational status: retired History of recent travel: No Physical Exam Const: COMMON NORMALS: no acute distress, patient oriented x3 and healthy appearing HENMT: COMMON NORMALS: normocephalic and atraumatic HEAD & SCALP: normocephalic and atraumatic Eye: COMMON NORMALS: Equal, round and reactive pupils present and EOMs intact bilaterally PUPIL: Yes Equal, round and reactive pupils present Neck/C-Spine: COMMON NORMALS: full ROM and supple Chest: COMMONS NORMALS: normal inspection of the chest and normal palpation of entire chest wall Resp: COMMON NORMALS: normal respiratory effort, No retractions, No use of accessory muscles and clear to auscultation bilaterally AUSCULTATION: clear to auscultation bilaterally Cardio: COMMON NORMALS: regular rate, regular rhythm and No murmurs present (Cardio) RATE: regular rate RHYTHM: regular rhythm GI: COMMON NORMALS: Normal to inspection, nondistended, normoactive bowel sounds present, Soft to palpation, non-tender and no masses PALPATION: Yes Soft to palpation Extremity: COMMON NORMALS: normal to inspection and full ROM Neuro: COMMON NORMALS: patient oriented x3, moves all extremities and no focal motor deficits Psych: COMMON NORMALS: mental status grossly normal, Normal thought process present and cooperative THOUGHT PROCESS: Normal thought process present Skin: COMMON NORMALS: no rashes or lesions noted and no wounds GENERAL SKIN EXAM: no rashes or lesions noted Course 2 Vital Signs: Vital signs: Vital Signs Temperature 99.4 F 12/08/21 07:48 Pulse Rate 78 12/08/21 10:21 Respiratory Rate 18 12/08/21 10:21 Blood Pressure 171/93 12/08/21 10:21 Pulse Oximetry 97 12/08/21 10:21 Oxygen Delivery Me thod 12/08/21 10:20 MDM - Headache Medical Decision Making Patient presents here with headache she does have chronic migraines her headache is much improved here she is hyponatremic here she has had chronic hyponatremia for months is a little lower than typical I informed her it was 120 states it was 124-week ago I did offer admission she states she feels improved after IV fluids and wants to get it checked next week will discharge at this time she is to follow-up and return if worsening she understands agrees to plan. Lab Data : 12/08/21 09:14 12/08/21 09:14 Laboratory Results WBC 10.8 10^3/uL (4.0-10.0) H 12/08/21 09:14 RBC 3.96 10^6/uL (4.1-5.3) L 12/08/21 09:14 Hgb 11.9 g/dL (11.5-15.3) 12/08/21 09:14 Hct 34.3 % (37.0-47.0) L 12/08/21 09:14 MCV 86.6 fl (81-99) 12/08/21 09:14 MCH 30.1 pg (28.0-34.0) 12/08/21 09:14 MCHC 34.7 g/dL (30.0-36.0) 12/08/21 09:14 RDW 12.7 % (12.1-15.1) 12/08/21 09:14 Plt Count 312 10^3/cmm (130-400) 12/08/21 09:14 MPV 9.9 fL (7.4-10.4) 12/08/21 09:14 Neut % (Auto) 69.3 % 12/08/21 09:14 Lymph % (Auto) 16.7 % 12/08/21 09:14 Putnam % (Auto) 10.9 % 12/08/21 09:14 Eos % (Auto) 2.5 % 12/08/21 09:14 Baso % (Auto) 0.3 % 12/08/21 09:14 Neut # (Auto) 7.47 10^3/uL (1.8-7.7) 12/08/21 09:14 Lymph # (Auto) 1.8 10^3/uL (0.8-4.8) 12/08/21 09:14 Putnam # (Auto) 1.2 10^3/uL (0.2-0.9) H 12/08/21 09:14 Eos # (Auto) 0.3 10^3/uL (0.0-0.8) 12/08/21 09:14 Baso # (Auto) 0.0 10^3/uL (0.0-0.1) 12/08/21 09:14 Nucleated RBC % (auto) 0 % 12/08/21 09:14 Nucleated RBCs # 0.0 /100WBC 12/08/21 09:14 Sodium 120 mmol/L (136-145) L 12/08/21 09:14 Potassium 4.2 mmol/L (3.5-5.1) 12/08/21 09:14 Chloride 87 mmol/L (98-107) L 12/08/21 09:14 Carbon Dioxide 23 mmol/L (22-29) 12/08/21 09:14 Anion Gap 14.2 (5-19) 12/08/21 09:14 BUN 8 mg/dL (8-23) 12/08/21 09:14 Creatinine 0.5 mg/dL (0.5-0.9) 12/08/21 09:14 GFR Calculation 123.1 mL/min (90-130) 12/08/21 09:14 Glucose 147 mg/dL (65-115) H 12/08/21 09:14 Calculated Osmolality 251 mOsm/kg (285-295) L 12/08/21 09:14 Calcium 8.9 mg/dL (8.5-10.5) 12/08/21 09:14 Discharge Plan Discharge Patient Disposition: Home Clinical Impression: Migraine, Hyponatremia Condition: Stable Prescriptions: No Action gabapentin 100 mg capsule 200 mg PO BID pantoprazole 40 mg tablet,delayed release (DR/EC) 40 mg PO QAM metoprolol tartrate 50 mg tablet 25 mg PO TID duloxetine 20 mg capsule,delayed release(DR/EC) 20 mg PO BID sucralfate 1 gram tablet 1 g PO BID mirtazapine 45 mg tablet 45 mg PO BEDTIME insulin aspart U-100 [Novolog Flexpen U-100 Insulin] 100 unit/mL (3 mL) insulin pen See Rx Instructions .ROUTE .COMPLEX Rx Instructions: SLIDING SCALE as needed when blood sugar is over 200 prednisone 1 mg tablet 2.5 mg PO QAM memantine [Namenda] 10 mg tablet 10 mg PO BID Qty: 180 0RF Rx Instructions: Initiate after starter pack memantine [Namenda Titration Brett] 5-10 mg tablets,dose pack See Rx Instructions PO PER PKG DIR Qty: 49 0RF Rx Instructions: PO PER PKG DIR erythromycin 5 mg/gram (0.5 %) ointment 0.5 inch ophthalmic (eye) QID 7 Days Qty: 3.5 0RF Glucerna 1.5 Warner 0.08-1.5 gram-kcal/mL Liquid 1 ea feeding tube .UP TO 5 TIMES A DAY PRN (Reason: malnutrition) buspirone 15 mg tablet 15 mg PO BID Qty: 60 0RF acetaminophen 325 mg tablet 650 - 975 mg PO QID PRN (Reason: Pain) potassium chloride 20 mEq Tablet Extended Release 10 meq PO DAILY PRN (Reason: potassium deficiency ) metformin 1,000 mg Tablet 1,000 mg PO BID@09,20 levothyroxine 50 mcg Tablet 50 mcg PO DAILY@0800 Qty: 30 0RF methocarbamol 750 mg tablet 750 mg PO TID PRN (Reason: Muscle Spasm) hydrocodone-acetaminophen 5-325 mg tablet 1 tab PO Q6H PRN (Reason: pain) Qty: 20 0RF sodium chloride 1 gram tablet 1 g PO BID@09,20 15 Days Qty: 30 0RF ondansetron HCl 4 mg Tablet 4 mg PO Q6H PRN (Reason: Nausea And Vomiting) 15 Days Qty: 30 0RF loperamide 2 mg Tablet 2 mg PO BID PRN (Reason: Diarrhea) 15 Days Qty: 15 0RF promethazine 25 mg tablet 25 mg PO TID PRN (Reason: Nausea) 15 Days Qty: 30 0RF metoclopramide HCl 10 mg tablet 5 mg PO DAILY 14 Days Qty: 14 0RF amoxicillin-pot clavulanate 875-125 mg tablet 1 tab PO BID Qty: 14 0RF Ativan 1 mg tablet 1 mg PO TID PRN (Reason: anxiety) Qty: 7 0RF Discharge Orders: Discharge ED (Routine); Ordered 12/08/21 Ordered By: Melissa Garcia Referrals: Thu Flores CLINICAL INSTRUCTOR [Primary Care Provider] - Discharge Diet: Advance as tolerated Discharge Activity: Resume usual activity Patient Instructions: Hyponatremia (ED) Coding Level of Care Code ED Asic Verification Engineer for Chg Fwd Exam Comprehensive
[2021-12-08] MEDS: diphenhydrAMINE 50 mg/mL SDV 1mL IVP (08:44)
[2021-12-08] MEDS: metoclopramide 5 mg/mL SDV 2 mL 10 MG IVP (08:44)
[2021-12-08] MEDS: sodium chloride 0.9% 1,000 ML 999 ML IV (08:44)
[2021-12-08 09:26] LABS: Basophils % 0.3 %; Eosinophils # 0.3 10^3/uL (0.0-0.8); Eosinophils % 2.5 %; Hematocrit 34.3 % (37.0-47.0); Hemoglobin 11.9 g/dL (11.5-15.3); Lymphocytes # 1.8 10^3/uL (0.8-4.8); Lymphocytes % 16.7 %; Mean Corpuscular HGB Conc 34.7 g/dL (30.0-36.0); Mean Corpuscular Hemoglobin 30.1 pg (28.0-34.0); Mean Corpuscular Volume 86.6 fl (81-99); Mean Platelet Volume 9.9 fL (7.4-10.4); Monocytes # 1.2 10^3/uL (0.2-0.9); Monocytes % 10.9 %; Neutrophils # 7.47 10^3/uL (1.8-7.7); Neutrophils % 69.3 %; Nucleated Red Blood Cells % 0 %; Platelet Count 312 10^3/cmm (130-400); Red Blood Count 3.96 10^6/uL (4.1-5.3); Red Cell Distribution Width 12.7 % (12.1-15.1); White Blood Count 10.8 10^3/uL (4.0-10.0)
[2021-12-08 09:43] LABS: Blood Urea Nitrogen 8 mg/dL (8-23); Calcium 8.9 mg/dL (8.5-10.5); Carbon Dioxide 23 mmol/L (22-29); Chloride 87 mmol/L (98-107); Glomerular Filtration Rate 123.1 mL/min (90-130); Glucose 147 mg/dL (65-115); Osmolality Calculated 251 mOsm/kg (285-295); Sodium 120 mmol/L (136-145)
[2021-12-08 10:01] LABS: Anion Gap 14.2 (5-19); Potassium 4.2 mmol/L (3.5-5.1)
[2021-12-08 10:12] VITALS: RESP 18; O2SAT 96
[2021-12-08] MEDS: HYDROmorphone 1 mg/mL INJ 1 mL 0.5 MG IVP (10:12)
[2021-12-08 10:20] VITALS: BP 171/93; PULSE 78; RESP 18; O2SAT 97
[2021-12-08 10:21] VITALS: BP 171/93; PULSE 78; RESP 18; O2SAT 97
== END 2021-12-08 10:23 | disposition home or self-care (01) ==
PROVIDERS: Emergency Provider Emergency Medicine; PCP Nurse Practitioner
DX: G43.909 Migraine, unspecified, not intractable, without status migrainosus (principal); E87.1 Hypo-osmolality and hyponatremia; Z79.4 Long term (current) use of insulin; Z79.84 Long term (current) use of oral hypoglycemic drugs; F17.210 Nicotine dependence, cigarettes, uncomplicated; I13.0 Hypertensive heart and chronic kidney disease with heart failure and stage 1 through stage 4 chronic kidney disease, or unspecified chronic kidney disease; E11.22 Type 2 diabetes mellitus with diabetic chronic kidney disease; N18.2 Chronic kidney disease, stage 2 (mild); I50.32 Chronic diastolic (congestive) heart failure; G30.9 Alzheimer's disease, unspecified; F02.80 Dementia in other diseases classified elsewhere, unspecified severity, without behavioral disturbance, psychotic disturbance, mood disturbance, and anxiety; E78.5 Hyperlipidemia, unspecified
CPT/HCPCS: 36415; 80048; 85025; 96361; 96374; 96375; 99284; J1170; J1200; J2765; J7030

== ENCOUNTER 2021-12-10 16:56 | Emergency (ER) | payer OTHER, SELFPAY ==
[2021-12-10 17:21] VITALS: BMI 23.0
[2021-12-10 17:24] VITALS: BP 163/76; PULSE 69; RESP 16; TEMP 36.4; O2SAT 96
[2021-12-10 19:49] LABS: Basophils % 0.4 %; Eosinophils # 0.2 10^3/uL (0.0-0.8); Hematocrit 35.6 % (37.0-47.0); Lymphocytes % 38.6 %; Mean Corpuscular HGB Conc 33.7 g/dL (30.0-36.0); Mean Corpuscular Hemoglobin 29.4 pg (28.0-34.0); Mean Corpuscular Volume 87.3 fl (81-99); Mean Platelet Volume 9.8 fL (7.4-10.4); Monocytes # 0.7 10^3/uL (0.2-0.9); Monocytes % 8.8 %; Neutrophils # 3.92 10^3/uL (1.8-7.7); Neutrophils % 49.9 %; Nucleated Red Blood Cells % 0 %; Platelet Count 404 10^3/cmm (130-400); Red Blood Count 4.08 10^6/uL (4.1-5.3); Red Cell Distribution Width 13.3 % (12.1-15.1); White Blood Count 7.9 10^3/uL (4.0-10.0)
[2021-12-10 20:07] VITALS: BP 161/96; PULSE 75; RESP 18; O2SAT 97
[2021-12-10 20:11] LABS: Alanine Aminotransferase 10 U/L (0-33); Albumin Level 3.7 g/dL (3.5-5.2); Alkaline Phosphatase 126 U/L (35-105); Anion Gap 13.7 (5-19); Aspartate Amino Transferase 16 U/L (0-32); Blood Urea Nitrogen 4 mg/dL (8-23); Calcium 9.2 mg/dL (8.5-10.5); Carbon Dioxide 25 mmol/L (22-29); Chloride 88 mmol/L (98-107); Glomerular Filtration Rate 159.2 mL/min (90-130); Glucose 114 mg/dL (65-115); Osmolality Calculated 254 mOsm/kg (285-295); Potassium 3.7 mmol/L (3.5-5.1); Sodium 123 mmol/L (136-145); Total Bilirubin 0.2 mg/dL (0.15-1.2); Total Protein 6.7 g/dL (6.6-8.7)
[2021-12-10 20:53] VITALS: BP 161/94; PULSE 78; RESP 15; O2SAT 96
[2021-12-10] MEDS: sodium chloride 0.9% 1,000 ML 999 ML IV (21:06)
[2021-12-10] MEDS: dexamethasone 10 mg/mL INJ 6 MG IVP (21:07)
[2021-12-10] MEDS: diphenhydrAMINE 50 mg/mL SDV 1mL 25 MG IVP (21:08)
[2021-12-10] MEDS: metoclopramide 5 mg/mL SDV 2 mL IVP (21:09)
[2021-12-10] MEDS: ketorolac 30 mg/mL INJ 15 MG IVP (21:10)
[2021-12-10 21:18] VITALS: BP 167/87; PULSE 87; RESP 15; O2SAT 96
[2021-12-10 21:43] VITALS: BP 180/96; PULSE 80; RESP 17; O2SAT 95
[2021-12-10 22:00] VITALS: BP 162/79; PULSE 83; RESP 16; O2SAT 96
--- NOTE | 2021-12-10 22:03 | ED_ITS ---
HPI - Headache General: Chief Complaint: Headache Stated Complaint: Nithin Time Seen by Provider: 12/10/21 20:44 History of Present Illness: 66-year-old female presents with a migraine. Patient has a history of migraines and low sodium. Patient reports that she was seen here Thursday morning and treated for a migraine help for a little bit but it seems like it came back. She presents because she is still having some symptoms. She has some mild photophobia loud noises bother her, mild nausea. This is similar to her previous migraines. Patient reports she takes sodium tablets for her chronic hyponatremia. She has no other complaints such as fever, chills, cough, shortness of breath, chest pain or other systemic complaints. Associated symptoms: Reports nausea; Deny chest pain, fever(s), rash or vomiting Review of Systems Const: Denies: fever(s) or chills Eyes: Reports: photophobia; Denies: change in vision or blurry vision ENMT: Denies: throat pain or ear or mastoid pain Card: Denies: chest pain or palpitations Resp: Denies: dyspnea, productive cough or wheezing GI: Reports: nausea; Denies: abdominal pain or vomiting : Denies: flank pain or dysuria Musc: Denies: neck pain or back pain Skin/Breast: Denies: rash or pruritus Neuro: Reports: headache(s); Denies: weakness in extremities or dizziness Psych: Denies: anxiety or depression Endo: Reports: other (Please see HPI) PFSH ED PFSH: Medical History Acute esophagitis Acute hypokalemia Acute hyponatremia Adrenal insufficiency Altered mental status Alzheimer disease Anemia Atrial fibrillation, new onset C. difficile diarrhea Chronic back pain Chronic diarrhea Chronic diastolic CHF (congestive heart failure) Chronic hyponatremia CKD (chronic kidney disease), stage II Depression Diabetic gastroparesis Dysphagia Generalized anxiety disorder GERD (gastroesophageal reflux disease) Headache Hyperlipidemia Hypertension Hyponatremia Hypothyroidism Insulin dependent type 2 diabetes mellitus Lactic acidosis Lactic acidosis Lewy body dementia Major depressive disorder, recurrent severe without psychotic features Morbid obesity Post-traumatic stress disorder, chronic Tachycardia Surgical History H/O esophagogastroduodenoscopy H/O: hysterectomy History of bunionectomy bilateral Hx of cholecystectomy Status post colonoscopy Family History Mother Hypertension Diabetes Father Hypertension Asthma Other CAD (coronary artery disease) Cancer Denies family history of Anesthesia complication Bleeding disorder Social History Smoking and tobacco status: current every day smoker cigars Cigars smoked per week: 35 Years smoked cigars: 53 Cigar details: 1 PPD Quit status (tobacco): has tried quititng Second hand smoke exposure: Yes Smoking risk assessment/counseling performed?: No Alcohol intake: former Former alcohol use details: Reportedly has not had any alcohol since June Household members: spouse Housing: Manufactured/Mobile home Marital status: Current occupational status: retired History of recent travel: No Physical Exam Const: COMMON NORMALS: no acute distress, patient oriented x3, no limitations and alert HENMT: COMMON NORMALS: hearing grossly normal bilaterally and moist oral mucous membranes Eye: COMMON NORMALS: Equal, round and reactive pupils present and EOMs intact bilaterally PUPIL: Yes Equal, round and reactive pupils present Neck/C-Spine: COMMON NORMALS: full ROM and supple Resp: COMMON NORMALS: normal respiratory effort and No retractions Cardio: COMMON NORMALS: regular rate and regular rhythm RATE: regular rate RHYTHM: regular rhythm GI: COMMON NORMALS: Soft to palpation and non-tender PALPATION: Yes Soft to palpation Extremity: COMMON NORMALS: full ROM and capillary refill normal Neuro: COMMON NORMALS: patient oriented x3, moves all extremities, no focal motor deficits and no sensory deficits noted SENSORIUM/ORIENTATION: Yes alert Psych: COMMON NORMALS: Normal thought process present, cooperative, normal affect and speech normal APPEARANCE: Yes grossly normal SPEECH: Yes normal speech THOUGHT PROCESS: Normal thought process present Skin: COMMON NORMALS: no rashes or lesions noted GENERAL SKIN EXAM: no rashes or lesions noted Course Vital Signs: Vital signs: Vital Signs Temperature 97.5 F L 12/10/21 17:24 Pulse Rate 83 12/10/21 22:00 Respiratory Rate 16 12/10/21 22:00 Blood Pressure 162/79 12/10/21 22:00 Pulse Oximetry 96 12/10/21 22:00 Oxygen Delivery Me thod 12/10/21 22:00 MDM - Headache Medical Decision Making Patient reports that she is feeling better following treatment and that her migraine is resolved. Patient is requesting to go home. Patient should follow- up with her primary care provider if she continues to have recurrent migraines. Lab Data : 12/10/21 19:12/10/21 Laboratory Results WBC 7.9 10^3/uL (4.0-10.0) 12/10/21: RBC 4.08 10^6/uL (4.1-5.3) L 12/10/21: Hgb 12.0 g/dL (11.5-15.3) 12/10/21: Hct 35.6 % (37.0-47.0) L 12/10/21: MCV 87.3 fl (81-99) 12/10/21 MCH 29.4 pg (28.0-34.0) 12/10/21 MCHC 33.7 g/dL (30.0-36.0) 12/10/21 RDW 13.3 % (12.1-15.1) 12/10/21 Plt Count 404 10^3/cmm (130-400) H 12/10/21 MPV 9.8 fL (7.4-10.4) 12/10/21 Neut % (Auto) 49.9 % 12/10/21: Lymph % (Auto) 38.6 % 12/10/21: Kleberg % (Auto) 8.8 % 12/10/21 Eos % (Auto) 2.0 % 12/10/21 Baso % (Auto) 0.4 % 12/10/21 Neut # (Auto) 3.92 10^3/uL (1.8-7.7) 12/10/21: Lymph # (Auto) 3.0 10^3/uL (0.8-4.8) 12/10/21 Kleberg # (Auto) 0.7 10^3/uL (0.2-0.9) 12/10/21: Eos # (Auto) 0.2 10^3/uL (0.0-0.8) 12/10/21 Baso # (Auto) 0.0 10^3/uL (0.0-0.1) 12/10/21 19:28 Nucleated RBC % (auto) 0 % 12/10/21 19: Nucleated RBCs # 0.0 /100WBC 12/10/21 19:28 Sodium 123 mmol/L (136-145) L 12/10/21 19:28 Potassium 3.7 mmol/L (3.5-5.1) 12/10/21 19:28 Chloride 88 mmol/L (98-107) L 12/10/21 19:28 Carbon Dioxide 25 mmol/L (22-29) 12/10/21 19:28 Anion Gap 13.7 (5-19) 12/10/21 19:28 BUN 4 mg/dL (8-23) L 12/10/21 19:28 Creatinine 0.4 mg/dL (0.5-0.9) L 12/10/21 19:28 GFR Calculation 159.2 mL/min (90-130) H 12/10/21 19:28 Glucose 114 mg/dL (65-115) 12/10/21 19:28 Calculated Osmolality 254 mOsm/kg (285-295) L 12/10/21 19:28 Calcium 9.2 mg/dL (8.5-10.5) 12/10/21 19:28 Total Bilirubin 0.2 mg/dL (0.15-1.2) 12/10/21 19:28 AST 16 U/L (0-32) 12/10/21 19:28 ALT 10 U/L (0-33) 12/10/21 19:28 Alkaline Phosphatase 126 U/L (35-105) H 12/10/21 19:28 Total Protein 6.7 g/dL (6.6-8.7) 12/10/21 19: Albumin 3.7 g/dL (3.5-5.2) 12/10/21 19:28 Globulin 3.0 g/dL (1.3-4.6) 12/10/21 19:28 Discharge Plan Discharge Patient Disposition: Home Clinical Impression: Migraine, Chronic hyponatremia Condition: Stable Prescriptions: No Action gabapentin 100 mg capsule 200 mg PO BID pantoprazole 40 mg tablet,delayed release (DR/EC) 40 mg PO QAM metoprolol tartrate 50 mg tablet 25 mg PO TID duloxetine 20 mg capsule,delayed release(DR/EC) 20 mg PO BID sucralfate 1 gram tablet 1 g PO BID mirtazapine 45 mg tablet 45 mg PO BEDTIME insulin aspart U-100 [Novolog Flexpen U-100 Insulin] 100 unit/mL (3 mL) insulin pen See Rx Instructions .ROUTE .COMPLEX Rx Instructions: SLIDING SCALE as needed when blood sugar is over 200 prednisone 1 mg tablet 2.5 mg PO QAM memantine [Namenda] 10 mg tablet 10 mg PO BID Qty: 180 0RF Rx Instructions: Initiate after starter pack memantine [Namenda Titration Brett] 5-10 mg tablets,dose pack See Rx Instructions PO PER PKG DIR Qty: 49 0RF Rx Instructions: PO PER PKG DIR erythromycin 5 mg/gram (0.5 %) ointment 0.5 inch ophthalmic (eye) QID 7 Days Qty: 3.5 0RF Glucerna 1.5 Warner 0.08-1.5 gram-kcal/mL Liquid 1 ea feeding tube .UP TO 5 TIMES A DAY PRN (Reason: malnutrition) buspirone 15 mg tablet 15 mg PO BID Qty: 60 0RF acetaminophen 325 mg tablet 650 - 975 mg PO QID PRN (Reason: Pain) potassium chloride 20 mEq Tablet Extended Release 10 meq PO DAILY PRN (Reason: potassium deficiency ) metformin 1,000 mg Tablet 1,000 mg PO BID@09,20 levothyroxine 50 mcg Tablet 50 mcg PO DAILY@0800 Qty: 30 0RF methocarbamol 750 mg tablet 750 mg PO TID PRN (Reason: Muscle Spasm) hydrocodone-acetaminophen 5-325 mg tablet 1 tab PO Q6H PRN (Reason: pain) Qty: 20 0RF sodium chloride 1 gram tablet 1 g PO BID@09,20 15 Days Qty: 30 0RF ondansetron HCl 4 mg Tablet 4 mg PO Q6H PRN (Reason: Nausea And Vomiting) 15 Days Qty: 30 0RF loperamide 2 mg Tablet 2 mg PO BID PRN (Reason: Diarrhea) 15 Days Qty: 15 0RF promethazine 25 mg tablet 25 mg PO TID PRN (Reason: Nausea) 15 Days Qty: 30 0RF metoclopramide HCl 10 mg tablet 5 mg PO DAILY 14 Days Qty: 14 0RF amoxicillin-pot clavulanate 875-125 mg tablet 1 tab PO BID Qty: 14 0RF Ativan 1 mg tablet 1 mg PO TID PRN (Reason: anxiety) Qty: 7 0RF Discharge Orders: Discharge ED (Routine); Ordered 12/10/21 Ordered By: Francisco Richardson Referrals: Thu Flores FNP [Primary Care Provider] - Discharge Diet: Advance as tolerated Discharge Activity: Resume usual activity Patient Instructions: Opioid Safety, Pain Management, Migraine Headache (ED) Activity Restrictions/Additional Instructions: Follow-up with your primary care provider to review your medications and migraine treatment and available options Return to the ER as needed Coding Level of Care Code ED Laboratory Mechanical Technician for Navid Simons
== END 2021-12-10 22:19 | disposition home or self-care (01) ==
PROVIDERS: Emergency Provider Student in an Organized Health Care Education/Training Program; PCP Nurse Practitioner
DX: G43.909 Migraine, unspecified, not intractable, without status migrainosus (principal); E87.1 Hypo-osmolality and hyponatremia; Z79.4 Long term (current) use of insulin; Z79.84 Long term (current) use of oral hypoglycemic drugs; F17.210 Nicotine dependence, cigarettes, uncomplicated; G30.9 Alzheimer's disease, unspecified; F02.80 Dementia in other diseases classified elsewhere, unspecified severity, without behavioral disturbance, psychotic disturbance, mood disturbance, and anxiety; I13.0 Hypertensive heart and chronic kidney disease with heart failure and stage 1 through stage 4 chronic kidney disease, or unspecified chronic kidney disease; E11.22 Type 2 diabetes mellitus with diabetic chronic kidney disease; N18.2 Chronic kidney disease, stage 2 (mild); I50.32 Chronic diastolic (congestive) heart failure; E78.5 Hyperlipidemia, unspecified
CPT/HCPCS: 36415; 80053; 85025; 96361; 96374; 96375; 99284; J1100; J1200; J1885; J2765; J7030

== ENCOUNTER 2021-12-11 12:20 | Emergency (ER) | payer OTHER, SELFPAY ==
[2021-12-11 12:29] VITALS: BP 161/84; PULSE 75; RESP 14; TEMP 36.7; O2SAT 97; BMI 25.7
[2021-12-11 14:06] LABS: Basophils % 0.2 %; Hematocrit 35.2 % (37.0-47.0); Hemoglobin 11.6 g/dL (11.5-15.3); Lymphocytes # 1.7 10^3/uL (0.8-4.8); Lymphocytes % 12.7 %; Mean Corpuscular Hemoglobin 29.8 pg (28.0-34.0); Mean Corpuscular Volume 90.5 fl (81-99); Monocytes # 0.6 10^3/uL (0.2-0.9); Monocytes % 4.5 %; Neutrophils # 10.71 10^3/uL (1.8-7.7); Neutrophils % 82.2 %; Nucleated Red Blood Cells % 0 %; Platelet Count 422 10^3/cmm (130-400); Red Blood Count 3.89 10^6/uL (4.1-5.3); Red Cell Distribution Width 13.6 % (12.1-15.1)
[2021-12-11 14:24] LABS: Alanine Aminotransferase 11 U/L (0-33); Albumin Level 4.2 g/dL (3.5-5.2); Alkaline Phosphatase 127 U/L (35-105); Anion Gap 16.8 (5-19); Aspartate Amino Transferase 13 U/L (0-32); Blood Urea Nitrogen 20 mg/dL (8-23); Calcium 9.7 mg/dL (8.5-10.5); Carbon Dioxide 23 mmol/L (22-29); Chloride 86 mmol/L (98-107); Globulin 3.3 g/dL (1.3-4.6); Glomerular Filtration Rate 99.7 mL/min (90-130); Glucose 186 mg/dL (65-115); Osmolality Calculated 261 mOsm/kg (285-295); Potassium 3.8 mmol/L (3.5-5.1); Sodium 122 mmol/L (136-145); Total Bilirubin 0.3 mg/dL (0.15-1.2); Total Protein 7.5 g/dL (6.6-8.7)
[2021-12-11 14:34] LABS: INR 1.04 (0.8-1.2); Partial Thromboplastin Time 24.5 SECONDS (23.9-36.7)
== END 2021-12-11 15:03 | disposition left against medical advice (07) ==
PROVIDERS: Emergency Medicine; Emergency Provider Family Medicine; PCP Nurse Practitioner
DX: Z53.21 Procedure and treatment not carried out due to patient leaving prior to being seen by health care provider (principal)
CPT/HCPCS: 36415; 80053; 85025; 85610; 85730; 86850; 86900

== ENCOUNTER 2021-12-24 17:42 | Emergency (ER) | payer OTHER, SELFPAY ==
[2021-12-24 17:45] VITALS: BMI 20.3
[2021-12-24 17:49] VITALS: BP 143/84; PULSE 86; RESP 18; TEMP 36.2; O2SAT 95
--- NOTE | 2021-12-24 17:54 | ED_ITS ---
HPI - Neck Pain/Injury General: Chief Complaint: Neck Pain/Injury Stated Complaint: Neck and lower back pain Time Seen by Provider: 12/24/21 17:49 History of Present Illness: Patient is in today for complaints of neck pain. Patient's spouse gives most of the history stating the patient does have dementia. The spouse reports that she has chronic neck pain after having neck fracture and surgical repair years ago. He reports that she occasionally has flareups like this. She does take methocarbamol and hydrocodone at home. He reports that today she has taken both of those medications plus naproxen. The patient states that she has a continuous sharp pain posterior neck at the base of her skull that is radiating and causing a headache. offers that in the past when this has flared up the ER has treated her with a migraine protocol and it has been very beneficial for her. The patient denies any radiation of pain. She denies any shortness of breath, chest pain, heart palpitations. She denies any recent injury or trauma to the neck. Review of Systems Const: Denies: fever(s) or chills ENMT: Denies: throat pain Card: Denies: chest pain or palpitations Resp: Denies: dyspnea, productive cough or non-productive cough Musc: Reports: neck pain PFSH ED PFSH: Medical History Acute esophagitis Acute hypokalemia Acute hyponatremia Adrenal insufficiency Altered mental status Alzheimer disease Anemia Atrial fibrillation, new onset C. difficile diarrhea Chronic back pain Chronic diarrhea Chronic diastolic CHF (congestive heart failure) Chronic hyponatremia CKD (chronic kidney disease), stage II Depression Diabetic gastroparesis Dysphagia Generalized anxiety disorder GERD (gastroesophageal reflux disease) Headache Hyperlipidemia Hypertension Hyponatremia Hypothyroidism Insulin dependent type 2 diabetes mellitus Lactic acidosis Lactic acidosis Lewy body dementia Major depressive disorder, recurrent severe without psychotic features Morbid obesity Post-traumatic stress disorder, chronic Tachycardia Surgical History H/O esophagogastroduodenoscopy H/O: hysterectomy History of bunionectomy bilateral Hx of cholecystectomy Status post colonoscopy Family History Mother Hypertension Diabetes Father Hypertension Asthma Other CAD (coronary artery disease) Cancer Denies family history of Anesthesia complication Bleeding disorder Social History Smoking and tobacco status: current every day smoker cigars Cigars smoked per week: 35 Years smoked cigars: 53 Cigar details: 1 PPD Quit status (tobacco): has tried quititng Second hand smoke exposure: Yes Smoking risk assessment/counseling performed?: No Alcohol intake: former Former alcohol use details: Reportedly has not had any alcohol since June Household members: spouse Housing: Manufactured/Mobile home Marital status: Current occupational status: retired History of recent travel: No Physical Exam Const: COMMON NORMALS: no acute distress and alert OTHER: Patient is oriented to person and place however she becomes confused about time. She also is forgetful about past medical history. Neck/C-Spine: OTHER: Patient has surgical scar noted posterior cervical spine. Patient has kyphotic hump noted. Patient has tenderness to palpation bilateral posterior cervical paraspinal musculature. Palpation of these areas reproduces pain complaint. Limited range of motion of the neck due to pain and chronic low ability issues Resp: COMMON NORMALS: normal respiratory effort and No use of accessory muscles OTHER: Mild expiratory wheeze throughout Cardio: COMMON NORMALS: regular rate, regular rhythm, S1 normal heart sound present and S2 normal heart sound present RATE: regular rate RHYTHM: regular rhythm HEART SOUNDS: S1 normal heart sound present and S2 normal heart sound present Neuro: SENSORIUM/ORIENTATION: Yes alert Course Vital Signs: Vital signs: Vital Signs Temperature 97.1 F L 12/24/21 17:49 Pulse Rate 86 12/24/21 17:49 Respiratory Rate 17 12/24/21 19:33 Blood Pressure 143/84 12/24/21 17:49 Pulse Oximetry 95 12/24/21 17:49 Oxygen Delivery Me thod 12/24/21 17:49 MDM - Neck Pain/Injury Medical Decision Making This is a 66-year-old female with chronic comorbidities. This is a flareup of her chronic pain neck pain. Patient is prescribed chronic narcotics for pain. reports that in the past when patient has had a flareup she has been given Benadryl Toradol and Decadron with great success. After 30 minutes patient is reporting little improvement in pain symptoms. 1 dose of morphine IM given and pain decreased down to a 5 after 20 minutes. Patient is ready to go home. Advised patient to follow-up with primary care provider Discharge Plan Discharge Patient Disposition: Home Clinical Impression: Neck pain, acute, Neck pain, chronic Condition: Stable Prescriptions: No Action gabapentin 100 mg capsule 200 mg PO BID pantoprazole 40 mg tablet,delayed release (DR/EC) 40 mg PO QAM metoprolol tartrate 50 mg tablet 25 mg PO TID duloxetine 20 mg capsule,delayed release(DR/EC) 20 mg PO BID sucralfate 1 gram tablet 1 g PO BID mirtazapine 45 mg tablet 45 mg PO BEDTIME insulin aspart U-100 [Novolog Flexpen U-100 Insulin] 100 unit/mL (3 mL) insulin pen See Rx Instructions .ROUTE .COMPLEX Rx Instructions: SLIDING SCALE as needed when blood sugar is over 200 prednisone 1 mg tablet 2.5 mg PO QAM memantine [Namenda] 10 mg tablet 10 mg PO BID Qty: 180 0RF Rx Instructions: Initiate after starter pack memantine [Namenda Titration Brett] 5-10 mg tablets,dose pack See Rx Instructions PO PER PKG DIR Qty: 49 0RF Rx Instructions: PO PER PKG DIR erythromycin 5 mg/gram (0.5 %) ointment 0.5 inch ophthalmic (eye) QID 7 Days Qty: 3.5 0RF Glucerna 1.5 Warner 0.08-1.5 gram-kcal/mL Liquid 1 ea feeding tube .UP TO 5 TIMES A DAY PRN (Reason: malnutrition) buspirone 15 mg tablet 15 mg PO BID Qty: 60 0RF acetaminophen 325 mg tablet 650 - 975 mg PO QID PRN (Reason: Pain) potassium chloride 20 mEq Tablet Extended Release 10 meq PO DAILY PRN (Reason: potassium deficiency ) metformin 1,000 mg Tablet 1,000 mg PO BID@,20 levothyroxine 50 mcg Tablet 50 mcg PO DAILY@0800 Qty: 30 0RF methocarbamol 750 mg tablet 750 mg PO TID PRN (Reason: Muscle Spasm) hydrocodone-acetaminophen 5-325 mg tablet 1 tab PO Q6H PRN (Reason: pain) Qty: 20 0RF sodium chloride 1 gram tablet 1 g PO BID@09,20 15 Days Qty: 30 0RF ondansetron HCl 4 mg Tablet 4 mg PO Q6H PRN (Reason: Nausea And Vomiting) 15 Days Qty: 30 0RF loperamide 2 mg Tablet 2 mg PO BID PRN (Reason: Diarrhea) 15 Days Qty: 15 0RF promethazine 25 mg tablet 25 mg PO TID PRN (Reason: Nausea) 15 Days Qty: 30 0RF metoclopramide HCl 10 mg tablet 5 mg PO DAILY 14 Days Qty: 14 0RF amoxicillin-pot clavulanate 875-125 mg tablet 1 tab PO BID Qty: 14 0RF Ativan 1 mg tablet 1 mg PO TID PRN (Reason: anxiety) Qty: 7 0RF Discharge Orders: Discharge ED (Routine); Ordered 12/24/21 Ordered By: Alie Isbell Referrals: Thu Flores FNP [Primary Care Provider] - Discharge Diet: Usual diet Discharge Activity: Resume usual activity Patient Instructions: Opioid Safety, Pain Management Activity Restrictions/Additional Instructions: Follow-up with your primary care provider for ongoing management of your chronic neck pain. Take medications as previously prescribed at home. You may use warm packs and gentle stretching. Return to the ER for any new or worsening symptoms. Coding Level of Care Code ED Marine Equipment Engineer for Navid Fwd Exam Expanded Problem Focused
[2021-12-24] MEDS: diphenhydrAMINE 25 mg Capsule PO (18:21)
[2021-12-24] MEDS: ketorolac 30 mg/mL INJ IM (18:21)
[2021-12-24] MEDS: dexamethasone 10 mg/mL INJ 4 MG IM (18:21)
[2021-12-24 19:33] VITALS: RESP 17
[2021-12-24] MEDS: morphine 4 mg/mL SDV 1 mL IM (19:33)
== END 2021-12-24 20:06 | disposition home or self-care (01) ==
PROVIDERS: Emergency Provider Nurse Practitioner Family; PCP Nurse Practitioner
DX: M54.2 Cervicalgia (principal); G89.29 Other chronic pain; I13.0 Hypertensive heart and chronic kidney disease with heart failure and stage 1 through stage 4 chronic kidney disease, or unspecified chronic kidney disease; I50.32 Chronic diastolic (congestive) heart failure; E11.22 Type 2 diabetes mellitus with diabetic chronic kidney disease; N18.2 Chronic kidney disease, stage 2 (mild); I48.91 Unspecified atrial fibrillation; E78.5 Hyperlipidemia, unspecified; E03.9 Hypothyroidism, unspecified; G31.83 Neurocognitive disorder with Lewy bodies; F02.80 Dementia in other diseases classified elsewhere, unspecified severity, without behavioral disturbance, psychotic disturbance, mood disturbance, and anxiety; G30.9 Alzheimer's disease, unspecified; F17.290 Nicotine dependence, other tobacco product, uncomplicated; Z79.4 Long term (current) use of insulin
CPT/HCPCS: 96372; 99284; J1100; J1885; J2270

== ENCOUNTER 2021-12-26 12:48 | Observation (INO) | payer OTHER, SELFPAY ==
[2021-12-26] VITALS (7 sets, daily range): BP systolic 137–156; BP diastolic 76–80; PULSE 75–81; RESP 15–18; TEMP 36.8; O2SAT 95–98; BMI 23.0
--- NOTE | 2021-12-26 13:03 | ECG_ITS ---
[facility] Test Date: 2021-12-26 Pat Name: Ingris Mendosa Department: Room: Gender: Female Housing Project Manager: : 1955 Requested By: Darek Villagomez Order Number: [id number] Danny MD: Cindy Strong M.D. Measurements Intervals [place] Rate: 72 P: 103 NE: 339 QRS: 25 QRSD: 80 T: 56 QT: 363 QTc: 400 Interpretive Statements SINUS RHYTHM ARTIFACT Compared to ECG 08/17/2021 05:54:58 Sinus rhythm no longer present Short NE interval no longer present T-wave abnormality no longer present Electronically Signed On 12-27-2021 7:16:54 CDT by Cindy Strong M.D. [id number]
--- NOTE | 2021-12-26 13:24 | W.ED.GENADLT ---
HPI - General Adult General: Chief complaint: Chest Pain Stated complaint: Chest pains, SOB Time Seen by Provider: 12/26/21 13:23 History of Present Illness: Patient is a 66-year-old female with a history of obesity, hypothyroidism, hypertension, diabetes who presents the emergency room for complaints of chest pain since 12:00 today. Patient tells me that for the last hour and a half, she has had significant sharp occasionally intense chest pain lasting 4 to 30 minutes at a time. Pain is currently 2/10. Patient says that she was at rest when this started. Pain is not worse with exertion. Patient denies any shortness of breath, cough, pleuritic chest pain, or chest pain with radiation to the back. Patient denies any leg swelling, prior history of VTE's or hemoptysis. Patient denies any abdominal complaints, reports nausea without vomiting. Patient denies any diaphoresis, melena hematochezia or complaints. Onset:12pm Duration:ongoing Location:home Severity:moderate Associated symptoms: Reports chest pain; Deny dyspnea, nausea, rash, palpitations or vomiting Review of Systems Const: Denies: fever(s) or chills Eyes: Denies: change in vision ENMT: Denies: mouth pain Card: Reports: chest pain; Denies: palpitations Resp: Denies: dyspnea or non-productive cough GI: Denies: abdominal pain, nausea, vomiting or diarrhea : Denies: dysuria Musc: Denies: extremity pain Skin/Breast: Denies: rash or new lesions Neuro: Denies: weakness in extremities Psych: Reports: other (Normal mood) Jeremiah/Lymph: Denies: easy bruising PFSH ED PFSH: Medical History Acute esophagitis Acute hypokalemia Acute hyponatremia Adrenal insufficiency Altered mental status Alzheimer disease Anemia Atrial fibrillation, new onset C. difficile diarrhea Chronic back pain Chronic diarrhea Chronic diastolic CHF (congestive heart failure) Chronic hyponatremia CKD (chronic kidney disease), stage II Depression Diabetic gastroparesis Dysphagia Generalized anxiety disorder GERD (gastroesophageal reflux disease) Headache Hyperlipidemia Hypertension Hyponatremia Hypothyroidism Insulin dependent type 2 diabetes mellitus Lactic acidosis Lactic acidosis Lewy body dementia Major depressive disorder, recurrent severe without psychotic features Morbid obesity Post-traumatic stress disorder, chronic Tachycardia Surgical History H/O esophagogastroduodenoscopy H/O: hysterectomy History of bunionectomy bilateral Hx of cholecystectomy Status post colonoscopy Family History Mother Hypertension Diabetes Father Hypertension Asthma Other CAD (coronary artery disease) Cancer Denies family history of Anesthesia complication Bleeding disorder Social History Smoking and tobacco status: current every day smoker cigars Cigars smoked per week: 35 Years smoked cigars: 53 Cigar details: 1 PPD Quit status (tobacco): has tried quititng Second hand smoke exposure: Yes Smoking risk assessment/counseling performed?: No Alcohol intake: former Former alcohol use details: Reportedly has not had any alcohol since June Household members: spouse Housing: Manufactured/Mobile home Marital status: Current occupational status: retired History of recent travel: No Physical Exam Const: COMMON NORMALS: alert HENMT: COMMON NORMALS: atraumatic HEAD & SCALP: atraumatic MOUTH: moist mucous membranes not abnormal Eye: COMMON NORMALS: EOMs intact bilaterally and conjunctivae normal CONJUNCTIVA: Yes conjunctivae normal Neck/C-Spine: COMMON NORMALS: full ROM and supple Resp: COMMON NORMALS: normal respiratory effort and clear to auscultation bilaterally AUSCULTATION: clear to auscultation bilaterally Cardio: COMMON NORMALS: regular rate RATE: regular rate OTHER: 2+ radial pulses b/l GI: COMMON NORMALS: Soft to palpation and non-tender PALPATION: Yes Soft to palpation OTHER: No focal TTP. NO guarding rebound, guarding, rigidity. No CVA tenderness to percussion. Neg Fish/Neg McBurney's point tenderness, no suprabupic tenderness to palpation. Extremity: COMMON NORMALS: full ROM OTHER: No idalia's sign Neuro: SENSORIUM/ORIENTATION: Yes alert MOTOR EXAM: No Abnormal motor strength present and Other motor observations present (no focal motor deficits) Psych: COMMON NORMALS: speech normal SPEECH: Yes normal speech MOOD & AFFECT: Yes euthymic mood Course Vital Signs: Vital signs: Vital Signs Temperature 98.2 F 12/26/21 12:56 Pulse Rate 81 12/26/21 16:30 Respiratory Rate 15 12/26/21 16:30 Blood Pressure 146/76 12/26/21 16:30 Pulse Oximetry 96 12/26/21 16:30 Oxygen Delivery Me thod 12/26/21 16:30 MDM - General Adult Medical Decision Making Patient is a 66-year-old female with a history of obesity, hypothyroidism, hypertension, diabetes who presents the emergency room for complaints of chest pain since 12:00 today. Patient is hemodynamically stable without any focal findings on physical exam. Initial EKG showed normal sinus rhythm with heart rate of 72. Patient does not have any ischemic findings on EKG. Troponin x2 with delta less than 5. However given heart score greater than 4, I recommend admission. Patient agrees. Dimer wnl. XR chest appears to be clear. Disposition: observation Lab Data : 12/26/21 13:41 12/26/21 13:41 Radiology Impressions Chest X-Ray 12/26/21 18:05 IMPRESSION: No acute findings. Laboratory Results WBC 13.6 10^3/uL (4.0-10.0) H 12/26/21 13:41 RBC 3.68 10^6/uL (4.1-5.3) L 12/26/21 13:41 Hgb 10.5 g/dL (11.5-15.3) L 12/26/21 13:41 Hct 31.1 % (37.0-47.0) L 12/26/21 13:41 MCV 84.5 fl (81-99) 12/26/21 13:41 MCH 28.5 pg (28.0-34.0) 12/26/21 13:41 MCHC 33.8 g/dL (30.0-36.0) 12/26/21 13:41 RDW 13.7 % (12.1-15.1) 12/26/21 13:41 Plt Count 431 10^3/cmm (130-400) H 12/26/21 13:41 MPV 10.0 fL (7.4-10.4) 12/26/21 13:41 Neut % (Auto) 76.1 % 12/26/21 13:41 Lymph % (Auto) 13.3 % 12/26/21 13:41 [place] % (Auto) 10.1 % 12/26/21 13:41 Eos % (Auto) 0.0 % 12/26/21 13:41 Baso % (Auto) 0.1 % 12/26/21 13:41 Neut # (Auto) 10.31 10^3/uL (1.8-7.7) H 12/26/21 13:41 Lymph # (Auto) 1.8 10^3/uL (0.8-4.8) 12/26/21 13:41 [place] # (Auto) 1.4 10^3/uL (0.2-0.9) H 12/26/21 13:41 Eos # (Auto) 0.0 10^3/uL (0.0-0.8) 12/26/21 13:41 Baso # (Auto) 0.0 10^3/uL (0.0-0.1) 12/26/21 13:41 Nucleated RBC % (auto) 0 % 12/26/21 13:41 Nucleated RBCs # 0.0 /100WBC 12/26/21 13:41 D-Dimer 0.33 ug/mIFEU (0-0.59) 12/26/21 13:41 Sodium 123 mmol/L (136-145) L 12/26/21 13:41 Potassium 4.9 mmol/L (3.5-5.1) 12/26/21 13:41 Chloride 88 mmol/L (98-107) L 12/26/21 13:41 Carbon Dioxide 22 mmol/L (22-29) 12/26/21 13:41 Anion Gap 17.9 (5-19) 12/26/21 13:41 BUN 18 mg/dL (8-23) 12/26/21 13:41 Creatinine 0.5 mg/dL (0.5-0.9) 12/26/21 13:41 GFR Calculation 123.1 mL/min (90-130) 12/26/21 13:41 Glucose 267 mg/dL (65-115) H 12/26/21 13:41 Calculated Osmolality 267 mOsm/kg (285-295) L 12/26/21 13:41 Calcium 9.3 mg/dL (8.5-10.5) 12/26/21 13:41 Troponin T Baseline 11 ng/L (0-10) H 12/26/21 13:41 Troponin T 120 Minute 10.45 ng/L (0-10) H 12/26/21 15:33 Delta Troponin T -0.55 ABS# (0-10) L 12/26/21 15:33 Imaging Data Other Imaging: Radiologist's impression: [address] [address] XRay Report Signed Patient: Ingris Mendosa Unit #: [id number] : 1955 Age/Sex: 66 / F ADM Date: 12/26/21 Loc: [facility] Room/Bed: [facility] Attending Dr: Gee Hyatt MD Ordering Provider/Ordering MD: Lewis Coe MD Date of Service: 12/26/21 Procedure(s): XR chest 1V portable [id number] Accession Number(s): [id number] Report Number: [id number] PROCEDURE INFORMATION: Exam: XR Chest Exam date and time: 12/26/2021 6:11 PM Age: 66 years old Clinical indication: Chest pressure and chest wall pain; Prior surgery; Surgery date: 6+ months; Surgery type: Ribs removed; Additional info: Chest pain TECHNIQUE: Imaging protocol: Radiologic exam of the chest. Views: 1 view. COMPARISON: CR (CHEST, ) 08/17/2021 5:13 AM FINDINGS: Lungs: Unremarkable. No consolidation. Pleural spaces: Unremarkable. No pleural effusion. No pneumothorax. Heart/Mediastinum: Unremarkable. No cardiomegaly. Bones/joints: Unremarkable. XR/XR chest 1V portable [id number] IMPRESSION: No acute findings. ? Dictated By: Duncan Cotto MD Signed By: Duncan Cotto MD Signed Date/Time: 12/26/21 2702 Discharge Plan Discharge Patient Disposition: Admitted As Inpatient Admit Provider: Gee Hyatt Clinical Impression: Chest pain Condition: Stable Coding Level of Care Code ED Aviation Maintenance Instructor for Chg Fwd Exam Comprehensive
[2021-12-26 13:54] LABS: Basophils % 0.1 %; Hematocrit 31.1 % (37.0-47.0); Hemoglobin 10.5 g/dL (11.5-15.3); Lymphocytes # 1.8 10^3/uL (0.8-4.8); Lymphocytes % 13.3 %; Mean Corpuscular HGB Conc 33.8 g/dL (30.0-36.0); Mean Corpuscular Hemoglobin 28.5 pg (28.0-34.0); Mean Corpuscular Volume 84.5 fl (81-99); Monocytes # 1.4 10^3/uL (0.2-0.9); Monocytes % 10.1 %; Neutrophils # 10.31 10^3/uL (1.8-7.7); Neutrophils % 76.1 %; Nucleated Red Blood Cells % 0 %; Platelet Count 431 10^3/cmm (130-400); Red Blood Count 3.68 10^6/uL (4.1-5.3); Red Cell Distribution Width 13.7 % (12.1-15.1); White Blood Count 13.6 10^3/uL (4.0-10.0)
[2021-12-26 14:26] LABS: Anion Gap 17.9 (5-19); Blood Urea Nitrogen 18 mg/dL (8-23); Calcium 9.3 mg/dL (8.5-10.5); Carbon Dioxide 22 mmol/L (22-29); Chloride 88 mmol/L (98-107); Glomerular Filtration Rate 123.1 mL/min (90-130); Glucose 267 mg/dL (65-115); Osmolality Calculated 267 mOsm/kg (285-295); Potassium 4.9 mmol/L (3.5-5.1); Sodium 123 mmol/L (136-145)
[2021-12-26 14:27] LABS: Troponin(5th) Baseline 11 ng/L (0-10)
--- NOTE | 2021-12-26 15:03 | ECG_ITS ---
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 Measurements Intervals [place] Rate: 80 P: 249 VT: 194 QRS: 35 QRSD: 88 T: 59 QT: 368 QTc: 426 Interpretive Statements SINUS RHYTHM ARTIFACT Compared to ECG 12/26/2021 13:16:16 No significant changes Electronically Signed On 12-27-2021 7:27:42 CDT by Cindy Strong M.D. [id number]
--- NOTE | 2021-12-26 16:09 | PC.PHAR ---
PTS STATES HE KNOWS THE PTS MEDICATIONS-LIPITOR 80MG QPM [facility] STATES THE PT IS NOT TAKING AND HAS NOT TAKEN FOR A MONTH OR SO- STATES THE PILL IS TOO BIG FOR THE PT TO SWALLOW-PTS STATES THE PT IS NOT TAKING METFORMIN 1000MG BID STATES PT HASNT TAKEN FOR 2 MONTHS-PTS STATES THE PT IS TAKING 1MG OF PREDNISONE DAILY-RX WRITTEN ON 05/08/21 2.5MG QAM MEDICATION NOT ON PTS [facility] MED LIST-PTS STATES THE PT IS STILL TAKING METOPROLOL TARTRATE 25MG BID - STATES ON THE [facility] SHOWS ITS BUT STATES PT IS STILL TAKING-NOTES ARE MADE IN THE PHARMACY COMMENTS
[2021-12-26 16:10] LABS: D Dimer 0.33 ug/mIFEU (0-0.59)
[2021-12-26] MEDS: morphine 4 mg/mL SDV 1 mL IVP (16:16)
[2021-12-26 16:18] LABS: Troponin 5 2HR 10.45 ng/L (0-10)
[2021-12-26 16:26] LABS: Troponin 5 2HR Delta -0.55 ABS# (0-10)
--- NOTE | 2021-12-26 18:05 | XRR_ITS ---
PROCEDURE INFORMATION: Exam: XR Chest Exam date and time: 12/26/2021 6:11 PM Age: 66 years old Clinical indication: Chest pressure and chest wall pain; Prior surgery; Surgery date: 6+ months; Surgery type: Ribs removed; Additional info: Chest pain TECHNIQUE: Imaging protocol: Radiologic exam of the chest. Views: 1 view. COMPARISON: CR (CHEST, ) 08/17/2021 5:13 AM FINDINGS: Lungs: Unremarkable. No consolidation. Pleural spaces: Unremarkable. No pleural effusion. No pneumothorax. Heart/Mediastinum: Unremarkable. No cardiomegaly. Bones/joints: Unremarkable. XR/XR chest 1V portable [id number] IMPRESSION: No acute findings.
--- NOTE | 2021-12-26 19:03 | ECG_ITS ---
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 Measurements Intervals [place] Rate: 84 P: 126 NE: 292 QRS: 21 QRSD: 89 T: 48 QT: 350 QTc: 416 Interpretive Statements SINUS RHYTHM ARTIFACT Compared to ECG 12/26/2021 16:41:30 No significant changes Electronically Signed On 12-27-2021 7:27:12 CDT by Cindy Strong M.D. [id number]
[2021-12-26] MEDS: morphine 4 mg/mL SDV 1 mL 2 MG IVP (20:06)
--- NOTE | 2021-12-26 20:40 | USCV_ITS ---
Ingris Mendosa Age: 66 Gender: F : 1955 Exam Date: 12/26/2021 22:40 Ordering Phys: Gee Hyatt MD Technologist: ALANA [place] [facility] [place]: No history of cardiac intervention per patient. Evaluate EF BP: 146 / 76 HR: 88 Rhythm: Sinus Technical Quality: Adequate MEASUREMENTS (Male / Female) Normal Values 2D ECHO LV Diastolic Diameter PLAX 3.9 cm 4.2 - 5.9 / 3.9 - 5.3 cm LV Systolic Diameter PLAX 2.7 cm IVS Diastolic Thickness 1.4 cm 0.6 - 1.0 / 0.6 - 0.9 cm IVS Systolic Thickness 1.3 cm LVPW Diastolic Thickness 1.3 cm 0.6 - 1.0 / 0.6 - 0.9 cm LVPW Systolic Thickness 2.0 cm LVOT Diameter 1.7 cm LV Ejection Fraction 2D Teich 60.3 % LV Ejection Fraction MOD 2C 60.9 % LV Ejection Fraction 2C AL 63.8 % LA Diameter 3.7 cm LA Width 2.9 cm LA Height 4.1 cm RA Width 2.9 cm RA Height 3.8 cm Aorta at Sinotubular Diameter 2.6 cm IVC Diameter 1.1 cm M-MODE Aortic Annulus Diameter 2.9 cm LA Ao Ratio MM 1.3 MV E Point Septal Separation 0.3 cm DOPPLER AV Peak Velocity 106.0 cm/s LVOT Peak Velocity 75.0 cm/s AV Area Cont Eq vti 2.0 cm squared AV Area Cont Eq pk 1.7 cm squared MV Peak Velocity 99.0 cm/s MV Area PHT 3.3 cm squared Mitral E to A Ratio 0.8 MV E' Velocity 49.2 cm/s Mitral E to MV E' Ratio 10.6 Mitral E to LV E' Lateral Ratio 10.6 Mitral E to LV E' Septal Ratio 10.6 TR Peak Velocity 275.3 cm/s TR Peak Gradient 30.3 mmHg TV Peak E Velocity 37.0 cm/s Right Atrial Pressure 5.0 mmHg Pulmonary Artery Systolic Pressu 35.3 mmHg PV Peak Velocity 80.0 cm/s RV Acceleration Time 0.1 s RV Ejection Time 0.3 s RV AcT/ET 0.3 FINDINGS Left Ventricle Left ventricle is normal in size. LV systolic function is normal with EF of 60 to 65%. No regional wall motion abnormalities are seen. Grade 1 diastolic dysfunction Right Ventricle Normal in size and function Right Atrium Normal in size Left Atrium Normal in size Mitral Valve Structurally normal mitral valve. Mild mitral regurgitation. Aortic Valve Structurally normal aortic valve. No significant stenosis or regurgitation Tricuspid Valve Mild tricuspid regurgitation. RVSP is 35 to 40 mmHg. Mild pulmonary hypertension. Pulmonic Valve Not well-visualized Pericardium Normal Aorta Normal in size IVC IVC appears to be normal. CONCLUSIONS Left ventricle is normal in size. LV systolic function is normal with EF of 60 to 65%. Grade 1 diastolic dysfunction Mild mitral regurgitation Mild pulmonary hypertension. Mild tricuspid regurgitation. Compared to prior echocardiogram from 04/15/2021, no significant changes are seen. Cecilio Julian MD (Electronically Signed) Final Date: 27 December 2021 14:04 S
[2021-12-26 21:32] LABS: Thyroid Stimulating Hormone 0.58 uIU/mL (0.27-4.20)
--- NOTE | 2021-12-26 22:14 | PM.HP ---
Providers/Chief Complaint Admitting Physician: Gee Hyatt MD Primary Care Provider: KATRINA Cash Chief Complaint: Chest pains, SOB History of Present Illness Ingris Mendosa is a 66 year old female with past medical history of chronic hyponatremia, esophagitis, adrenal insufficiency on chronic steroids, Alzheimer disease, atrial fibrillation, C. difficile colitis ,diastolic heart failure, CKD stage II, type 2 diabetes mellitus, obesity, hypertension and hypothyroidism presented to the ER today because of sharp retrosternal pain which started around 2 hours prior to presentation. Pain was nonradiating, not referring not associated with any worsening factors or associated with shortness of breath or cough or dizziness. Patient did have mild nausea along with chest pain but no vomiting. Hospitalist service was consulted for admission to rule out ACS given high heart risk score of more than 4. Review of Systems General: Reports: 10 or more systems reviewed and unremarkable except in HPI and below Const: Denies: fever(s), chills, body aches, change in appetite, change in weight, malaise, night sweats, diaphoresis, change in sleep pattern, daytime sleepiness or snoring Eyes: Denies: change in vision, blurry vision, photophobia, eye discomfort or eye discharge ENMT: Denies: throat pain, enlarged tonsils, hoarseness, mouth pain, oral sores, dry mouth, tinnitus, nasal congestion or post nasal drip Card: Denies: chest pain, palpitations, irregular heart rhythm, edema, swelling of feet/ankles, lightheadedness, syncope, pre-syncope, dyspnea on exertion, orthopnea, leg pain with exertion or acrocyanosis Resp: Denies: dyspnea, productive cough, non-productive cough, wheezing, stridor, pain on inspiration, change in phlegm color, hemoptysis or chest congestion GI: Denies: abdominal pain, nausea, vomiting, hematemesis, coffee ground emesis, dysphagia, heartburn, diarrhea, constipation, bloating, GI cramping, change in bowel habits, pain on defecation, hematochezia or melena : Denies: flank pain, dysuria, urinary frequency, urinary urgency, urinary hesitancy, nocturia or hematuria Musc: Denies: neck pain, back pain, extremity pain, joint pain, joint swelling, joint redness, joint stiffness or limited range of motion Neuro: Denies: headache(s), numbness in extremities, weakness in extremities, sensory changes, lack of coordination, difficulty walking, frequent falls, dizziness, vertigo, confusion, Slurred speech present, difficulty communicating thoughts or seizure-like activity Psych: Denies: anxiety, depression, mood swings, panic attacks, hopelessness or irritability Endo: Denies: polyuria, polydipsia, tired all the time, cold intolerance, excessive sweating, flushing or heat intolerance Jeremiah/Lymph: Denies: easy bruising or easy bleeding All/Imm: Denies: tongue swelling, facial swelling or acute wheezing Medications/Allergies Home Medications Medication Instructions Recorded Confirmed Last Taken Type levothyroxine 50 mcg tablet 50 mcg PO DAILY@0800 #30 tabs 05/23/20 12/26/21 12/26/21 Rx gabapentin 100 mg capsule 200 mg PO TID 06/12/20 12/26/21 12/26/21 08:00 History methocarbamol 750 mg tablet 750 mg PO TID 06/27/20 12/26/21 12/26/21 08:00 History metoprolol tartrate 50 mg tablet 25 mg PO BID 11/06/20 12/26/21 12/26/21 History pantoprazole 40 mg tablet,delayed 40 mg PO QAM 11/06/20 12/26/21 12/26/21 History release duloxetine 20 mg capsule,delayed 20 mg PO BID 02/06/21 12/26/21 12/26/21 08:00 History release mirtazapine 45 mg tablet 45 mg PO BEDTIME 02/11/21 12/26/21 12/25/21 History sucralfate 1 gram tablet 1 g PO QID PRN ULCERS 02/11/21 12/26/21 07/16/21 History acetaminophen 325 mg tablet 650 - 975 mg PO QID PRN Pain 04/05/21 12/26/21 07/16/21 History hydrocodone 5 mg-acetaminophen 325 1 tab PO Q6H PRN pain #20 tabs 05/01/21 12/26/21 12/26/21 08:00 Rx mg tablet prednisone 1 mg tablet 1 mg PO QAM 05/08/21 12/26/21 12/26/21 History insulin aspart U-100 100 unit/mL See Rx Instructions .Route .COMPLEX 07/17/21 12/26/21 07/16/21 History (3 mL) subcutaneous pen (Novolog Flexpen U-100 Insulin aspart) loperamide 2 mg tablet 2 mg PO BID PRN Diarrhea 15 days 07/19/21 12/26/21 Unknown Rx #15 tabs promethazine 25 mg tablet 25 mg PO TID PRN Nausea 15 days 07/19/21 12/26/21 Unknown Rx #30 tabs memantine 10 mg tablet (Namenda) 10 mg PO BID #180 tabs 08/08/21 12/26/21 12/26/21 08:00 Rx buspirone 10 mg tablet 20 mg PO TID 12/26/21 12/26/21 12/26/21 08:00 History galantamine 4 mg tablet 4 mg PO BID 12/26/21 12/26/21 12/26/21 08:00 History hydroxyzine HCl 50 mg tablet 50 mg PO BEDTIME 12/26/21 12/26/21 12/25/21 History lisinopril 10 mg tablet 10 mg PO QAM 12/26/21 12/26/21 Unknown History metoclopramide HCl 10 mg tablet 5 mg PO QAM 12/26/21 12/26/21 12/26/21 History nut. tx, spec. form, See Rx Instructions .Route .COMPLEX 12/26/21 12/26/21 12/26/21 11:00 History lac-free,iron-fos 0.08 gram-2 FINISHED kcal/mL oral liquid (TwoCal HN) @11:00 ondansetron 8 mg disintegrating 8 mg PO Q12H PRN Nausea And 12/26/21 12/26/21 Unknown History tablet Vomiting sodium chloride 1 gram tablet 1 g PO BID 12/26/21 12/26/21 12/26/21 History temazepam 7.5 mg capsule 7.5 mg PO BEDTIME 12/26/21 12/26/21 Unknown History Allergies Allergy/AdvReac Type Severity Reaction Status Date / Time No Known Allergies Allergy Verified 12/26/21 15:48 PFSH Acute PFSH: Medical History (Updated 12/26/21 @ 22:27 by Gee Hyatt MD) Acute esophagitis Acute hypokalemia Adrenal insufficiency Altered mental status Alzheimer disease Anemia ARDS (adult respiratory distress syndrome) Aspiration into airway Aspiration pneumonia Atrial fibrillation, new onset C. difficile diarrhea Chronic back pain Chronic diarrhea Chronic diastolic CHF (congestive heart failure) Chronic hyponatremia CKD (chronic kidney disease), stage II Depression Diabetic gastroparesis Dysphagia Generalized anxiety disorder GERD (gastroesophageal reflux disease) Headache Hyperlipidemia Hypertension Hypothyroidism Insulin dependent type 2 diabetes mellitus Lactic acidosis Lewy body dementia Major depressive disorder, recurrent severe without psychotic features Morbid obesity PEG tube malfunction Post-traumatic stress disorder, chronic Tachycardia Surgical History (Updated 12/26/21 @ 22:27 by Gee Hyatt MD) H/O esophagogastroduodenoscopy H/O: hysterectomy History of bunionectomy bilateral Hx of cholecystectomy S/P percutaneous endoscopic gastrostomy (PEG) tube placement Status post colonoscopy Family History Mother Hypertension Diabetes Father Hypertension Asthma Other CAD (coronary artery disease) Cancer Denies family history of Anesthesia complication Bleeding disorder Social History Smoking and tobacco status: current every day smoker cigars Cigars smoked per week: 35 Years smoked cigars: 53 Cigar details: 1 PPD Quit status (tobacco): has tried quititng Second hand smoke exposure: Yes Smoking risk assessment/counseling performed?: No Alcohol intake: former Former alcohol use details: Reportedly has not had any alcohol since June Household members: spouse Housing: Manufactured/Mobile home Marital status: Current occupational status: retired History of recent travel: No Vitals/I&O/Wt Last Vital Signs Temp 98.2 F 12/26/21 12:56 Pulse 79 12/26/21 21:03 Resp 16 12/26/21 20:06 BP 146/76 12/26/21 16:30 Pulse Ox 97 12/26/21 21:03 O2 Del Method 12/26/21 21:03 Weight last 48 hrs Weight 58.967 kg Physical Exam Narrative: General: No acute distress, AO x3 HEENT: PERRLA, pupils bilaterally equal and reactive Chest: Normal vesicular breath sounds, no added sounds, equal good air entry bilaterally CVS: S1-S2 regular, no murmurs, no tachycardia, no gallops, no rubs Abdomen: Soft, nontender, no organomegaly, bowel sounds present Neuro: No focal deficits, no facial deformity, AO x3, power 5/5 in all limbs Data : 10/07/22 04:46 12/27/21 04:46 A&P Assessment and plan (1) Atypical chest pain: Sounds atypical in nature. Could be secondary to esophagitis from chronic steroid use. D-dimer is negative. But given morbid obesity, poor activity and lifestyle, type 2 diabetes mellitus and high heart risk score we will have to rule out ACS. N.p.o. after midnight for stress test. Check A1c, lipid panel. Check echocardiogram. Lexiscan in a.m. Continue with aspirin, statin. Prophylactic dose heparin for now. If troponin cycle trends up we will plan for heparin drip. Continue Protonix for esophagitis. Carafate before meals and at bedtime for now. (2) Acute esophagitis: (3) Adrenal insufficiency: Chronic. Continue with home dose of prednisone. (4) Chronic hyponatremia: Sodium at baseline. Continue with oral salt supplementation. (5) Chronic diastolic CHF (congestive heart failure): Not in exacerbation. Check echocardiogram, proBNP. (6) CKD (chronic kidney disease), stage II: Creatinine baseline. Medical reconstruction for nephrotoxic drugs. (7) Insulin dependent type 2 diabetes mellitus: Check A1c. Moderate dose insulin sliding scale. (8) Lewy body dementia: Plan Continue other chronic medications including BuSpar, duloxetine, gabapentin, Hydroxyzine, levothyroxine, memantine, methocarbamol, mirtazapine, temazepam. Attestations Medical Necessity Statement*: Under observation for further evaluation and management of atypical chest pain while ACS is ruled out Time Spent in Patient Care: Greater than 35 minutes Coding Level of Care Code Acute Account Analyst for Navid Simons Diagnoses Atypical chest pain R07.89 Acute esophagitis K20.90 Adrenal insufficiency E27.40 Chronic hyponatremia E87.1 Chronic diastolic CHF (congestive heart failure) I50.32 CKD (chronic kidney disease), stage II N18.2 Insulin dependent type 2 diabetes mellitus E11.9; Z79.4 Lewy body dementia G31.83; F02.80
[2021-12-26] MEDS: BuSPIRONE 10 mg Tablet 20 MG PO (22:32)
[2021-12-26] MEDS: mirtazapine 15 mg Tablet 45 MG PO (22:33)
[2021-12-26] MEDS: gabapentin 100 mg Capsule 200 MG PO (22:34)
[2021-12-26] MEDS: hyDROXYzine 25 mg Capsule 50 MG PO (22:35)
[2021-12-26] MEDS: acetaminophen 325 mg Tablet 650 MG PO (22:44)
[2021-12-26] MEDS: heparin 5,000 unit/mL INJ 1 mL 5000 UNIT SUBCUT (22:44)
[2021-12-26] MEDS: methocarbamol 750 mg Tablet PO (22:45)
[2021-12-27] VITALS (7 sets, daily range): BP systolic 135–175; BP diastolic 60–85; PULSE 50–99; RESP 14–16; TEMP 36.4–36.7; O2SAT 91–98
[2021-12-27 02:13] LABS: Iron 23 ug/dL (37-145); NT Pro B Type Natriuretic Pept 1280 pg/mL (0-125); Percent Saturation 4.8 % (20-50); Total Iron Binding Capacity 470 mcg/dl; Unsaturated Iron Binding 447 ug/dL (112-347); Vitamin B12 417 pg/mL (232-1245)
[2021-12-27 05:11] LABS: Basophils # 0.1 10^3/uL (0.0-0.1); Basophils % 0.5 %; Eosinophils # 0.1 10^3/uL (0.0-0.8); Eosinophils % 1.1 %; Hematocrit 28.7 % (37.0-47.0); Hemoglobin 9.9 g/dL (11.5-15.3); Lymphocytes # 3.9 10^3/uL (0.8-4.8); Lymphocytes % 34.8 %; Mean Corpuscular HGB Conc 34.5 g/dL (30.0-36.0); Mean Corpuscular Volume 84.2 fl (81-99); Mean Platelet Volume 10.3 fL (7.4-10.4); Monocytes # 1.1 10^3/uL (0.2-0.9); Monocytes % 9.5 %; Neutrophils # 6.09 10^3/uL (1.8-7.7); Neutrophils % 53.8 %; Nucleated Red Blood Cells % 0 %; Platelet Count 322 10^3/cmm (130-400); Red Blood Count 3.41 10^6/uL (4.1-5.3); Red Cell Distribution Width 13.6 % (12.1-15.1); White Blood Count 11.3 10^3/uL (4.0-10.0)
[2021-12-27 05:29] LABS: Troponin 5 6HR 10.53 ng/L (0-10)
[2021-12-27 05:31] LABS: Troponin 5 6HR Delta -0.47 ng/L (0-12)
[2021-12-27 05:37] LABS: Alanine Aminotransferase 8 U/L (0-33); Albumin Level 3.3 g/dL (3.5-5.2); Alkaline Phosphatase 111 U/L (35-105); Blood Urea Nitrogen 11 mg/dL (8-23); Calcium 8.6 mg/dL (8.5-10.5); Carbon Dioxide 21 mmol/L (22-29); Chloride 89 mmol/L (98-107); Chol HDL Ratio 3.84 mg/dL (0.0-4.40); Cholesterol 173 mg/dL (0-200); Globulin 2.7 g/dL (1.3-4.6); Glomerular Filtration Rate 159.2 mL/min (90-130); Glucose 184 mg/dL (65-115); HDL Cholesterol 45 mg/dL (60-100); LDL Cholesterol Calculated 90 mg/dL (50-129); Osmolality Calculated 262 mOsm/kg (285-295); Sodium 124 mmol/L (136-145); Total Bilirubin 0.2 mg/dL (0.15-1.2); Triglycerides 188 mg/dL (0-150); VLDL Cholestrol Calculation 38 mg/dL (0-30)
[2021-12-27 05:40] LABS: Anion Gap 18.6 (5-19); Potassium 4.6 mmol/L (3.5-5.1)
[2021-12-27 05:41] LABS: Aspartate Amino Transferase 15 U/L (0-32)
[2021-12-27] MEDS: predniSONE 1 mg Tablet PO (06:05)
[2021-12-27] MEDS: metoclopramide 10 mg Tablet 5 MG PO (06:05)
[2021-12-27] MEDS: lisinopril 10 mg Tablet PO (06:08)
--- NOTE | 2021-12-27 06:17 | ECG_ITS ---
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 Interpretive Statements NAME OF STUDY: LEXISCAN SESTAMIBI STRESS TEST INDICATION: [UNSTABLE ANGINA, ] Procedure: At the baseline, the blood pressure was 162/74 mmHg with a heart rate of 79 bpm. The electrocardiogram showed normal sinus rhythm, normal axis with normal ST and T's. The Lexiscan was infused over a period of 20 seconds. A total of 0.4 mg of Lexiscan was infused. The stress phase was continued for a total of 5 minutes. Heart rate was at the end of stress phase was 97 bpm and a blood pressure of 123/59 mmHg. The EKG at the peak infusion revealed normal sinus rhythm with no significant ST-T wave changes. Sestamibi was injected 20 seconds after the Lexiscan infusion. Blood pressure at the end of recovery phase was 146/61 mmHg with a heart rate of 94 bpm. Conclusion: 1. Normal EKG response to Lexiscan infusion 2. No Lexiscan induced chest pain or cardiac arrhythmia. 3. Normal blood pressure and heart rate response. 4. Sestamibi/sestamibi perfusion scan pending; see separate report. Electronically Signed On 12-28-2021 21:22:46 CDT by Cecilio Julian M.D. [id number]
[2021-12-27 06:54] LABS: Glucose Point of Care 195 mg/dL (70-110)
--- NOTE | 2021-12-27 07:00 | NMCV_ITS ---
NM jazzy perf SPECT r/s* [id number] Ingris Mendosa Age: 66 Gender: F : 1955 Exam Date: 12/27/2021 07:00 Ordering Phys: Gee Hyatt MD Technologist: ALPA Pedroza Exam Location: [facility] Indications: CHEST PAIN STRESS TEST Please [facility] IMAGE PROTOCOL Rest/Stress 1 Lexiscan Day Radiopharmaceutical Dose (mCi) Administration Site Administered by Rest: Tc-99m 10.7 IV ALPA Lynne Sestamibi Stress:Tc-99m 32.7 IV ALPA Lynne Sestamibi Rest: 27-Dec-2021 60 Discovery 630 Stress: 27-Dec-2021 30 Discovery 630 0.4mg Lexiscan. Supine position only as patient was unable to lay prone. SPECT RESULTS Technical Quality: Excellent Raw Data Analysis: Normal Image Corrections: No attenuation or motion correction applied Summed Stress Score: 0 Summed Rest Score: 0 Summed Difference Score: 0 PERFUSION FINDINGS SPECT images demonstrate homogeneous tracer distribution throughout the myocardium. FUNCTIONAL RESULTS (calculated via Gated SPECT) Stress Image LV EF (%): 75 Stress EDV (mL):71 TID: 1 Stress ESV (mL):18 FUNCTIONAL FINDINGS: There is normal left ventricular systolic function. IMPRESSIONS 1. Normal myocardial perfusion imaging with no evidence of ischemia 2. LV systolic function is normal Cecilio Julian MD (Electronically Signed) Final Date: 27 December 2021 13:16 S
[2021-12-27 07:44] LABS: Add Urine Microscopic? YES; Bilirubin Urine Neg (Negative); Blood Urine Neg (Negative); Glucose Urine UA Norm (Normal); Ketones Urine Negative (Negative); Leukocyte Esterase Urine 2+ (Negative); Nitrate Urine Negative (Negative); Protein Urine Neg (Negative); Urine Appearance Clear (CLEAR); Urine Color Yellow (Yellow); Urobilinogen Urine Neg (Negative); pH Urine 6 (5-7)
[2021-12-27 07:53] LABS: Add Urine Culture? Yes; Bacteria Urine 3+ /hpf; Squamous Epithelial Cell Urine 0-4 /hpf (0-5); WBC Urine 15-25 /hpf (0-5)
[2021-12-27] MEDS: regadenoson 0.4 Mg/5 ml Syringe IVP (07:59)
[2021-12-27] MEDS: sodium chloride 1 gm Tablet PO (09:29)
[2021-12-27] MEDS: acetaminophen 325 mg Tablet 650 MG PO (09:29)
[2021-12-27] MEDS: gabapentin 100 mg Capsule 200 MG PO ×2 (09:30→15:42)
[2021-12-27] MEDS: sucralfate 1 gm Tablet PO ×2 (09:30→13:01)
[2021-12-27] MEDS: levothyroxine 50 mcg Tablet PO (09:30)
[2021-12-27] MEDS: duloxetine 20 mg Capsule PO (09:30)
[2021-12-27] MEDS: memantine 5 mg tablet 10 MG PO (09:30)
[2021-12-27] MEDS: BuSPIRONE 10 mg Tablet 20 MG PO ×2 (09:31→15:42)
[2021-12-27] MEDS: metoprolol tartrate 50 mg Tablet 25 MG PO (09:31)
[2021-12-27] MEDS: pantoprazole DR 40 mg Tablet PO (09:31)
[2021-12-27] MEDS: methocarbamol 750 mg Tablet PO ×2 (09:31→15:42)
[2021-12-27] MEDS: aspirin 81 mg EC Tablet PO (09:31)
[2021-12-27 09:43] LABS: Estmated Average Glucose 143; Hemoglobin A1C 6.6 % (4.0-6.0)
--- NOTE | 2021-12-27 12:58 | PC.CHAP ---
Pastoral Care Encounter/Spiritual Assessment Type of Contact [] Declined matrix supervisor visit [] Patient/Family/Request visit [] Outpatient visit [] Follow-up visit [] Physician referral [] Code/Alert [x] Routine visit [] Staff referral [] Actively dying [] Patient sleeping [] Family support [] [] Out of room [] Palliative care [] [x] Receiving care in room [] Pre-surgical visit [] Trauma [] Long length of stay [] ICU visit [] Other: Relational/Emotional Strength [] Patient feels connected with others/family/visitors/staff [] Distress [] Loneliness/isolation [] Abandonment Spirituality of Patient [] Person of [place] [] Attends Hindu of their [place] [] Believes in Prayer [] Reads Bible or Samaritan materials [] There are Spiritual issues to be addressed Frame Coverer Interventions [] Prayer [] Active listening [] Non-anxious presence [] Spiritual/emotional support [] Crisis/trauma care [] Spiritual counseling [] Bereavement support [] Provided bereavement packet [] Provided Bible/devotional materials [] Provided toy/stuffed animal, coloring book to patient or family member [] Provided Communion [] Anointing/[place] [] Salvation [] Completed spiritual assessment [] Other: Impact on Illness or Injury [] Angry [] Fearful [] Anxious [] Often cries [] Exhaustion [] Unable to work [] Unable to attend episcopalian [] Unable to walk/stand [] Unable to read [] Unable to drive [] Unable to eat/drink [] Unable to sleep [] Unable to be with family [] Patient intubated [] Other: Summary Time spent with patient
[2021-12-27] MEDS: heparin 5,000 unit/mL INJ 1 mL 5000 UNIT SUBCUT (13:01)
[2021-12-27] MEDS: HYDROcodone-acetaminophen 5-325 mg Tablet 1 TAB PO (13:01)
--- NOTE | 2021-12-27 14:05 | P.DS_ITS ---
Discharge Providers Date of Admission: 12/26/21 18:47 Date of Discharge: December 27, 2021 Attending Provider at Admission: Gee Hyatt MD Attending Provider at Discharge: Gee Hyatt MD Primary Care Provider: KATRINA Cash Diagnoses at Discharge Discharge Diagnosis (1) Atypical chest pain: Status: Acute (2) Acute esophagitis: Status: Acute (3) Adrenal insufficiency: Status: Acute (4) Chronic hyponatremia: Status: Acute (5) Chronic diastolic CHF (congestive heart failure): Status: Acute (6) CKD (chronic kidney disease), stage II: Status: Acute (7) Insulin dependent type 2 diabetes mellitus: Status: Acute (8) Lewy body dementia: Status: Acute Reason for Visit Reason for Visit: Chest pains, SOB Hospital Course Hospital Course Ingris Mendosa is a 66 year old female with past medical history of chronic hyponatremia, esophagitis, adrenal insufficiency on chronic steroids, Alzheimer disease, atrial fibrillation, C. difficile colitis ,diastolic heart failure, CKD stage II, type 2 diabetes mellitus, obesity, hypertension and hypothyroidism presented to the ER today because of sharp retrosternal pain which started around 2 hours prior to presentation. Pain was nonradiating, not referring not associated with any worsening factors or associated with shortness of breath or cough or dizziness. Patient did have mild nausea along with chest pain but no vomiting. Hospitalist service was consulted for admission to rule out ACS given high heart risk score of more than 4. Patient presented to the hospital further evaluation and management. She did not have any recurrence of the symptoms. She underwent Lexiscan stress test on 12/27 which ruled out acute ischemia. It is believed her symptoms are most likely secondary to esophagitis from chronic steroid use. She is advised to take Protonix twice daily along with Carafate before meals and at bedtime rather than as needed for now. Physical Exam Narrative: General: No acute distress, AO x3 HEENT: PERRLA, pupils bilaterally equal and reactive Chest: Normal vesicular breath sounds, no added sounds, equal good air entry bilaterally CVS: S1-S2 regular, no murmurs, no tachycardia, no gallops, no rubs Abdomen: Soft, nontender, no organomegaly, bowel sounds present Neuro: No focal deficits, no facial deformity, AO x3, power 5/5 in all limbs Discharge Data Studies Completed and Pending Completed Studies During Hospitalization Category Date Time Status Sestamibi Stress Test Request Routine Exams 12/27/21 06:17 Draft XR chest 1V portable [id number] Stat Exams 12/26/21 18:05 Completed NM jazzy perf SPECT r/s* [id number] Routine Nuc Med 12/27/21 07:00 Completed Pending at discharge Category Date Time Status Sestamibi Stress Test Request Routine Exams 12/26/21 20:45 Stop Req Urine Culture Stat Lab 12/27/21 07:08 Received CV. echo complete* [id number] Routine Ultrasound 12/26/21 20:40 Taken Radiology Impressions Chest X-Ray 12/26/21 18:05 IMPRESSION: No acute findings. Echocardiogram: CONCLUSIONS ?Left ventricle is normal in size. ?LV systolic function is normal with EF of 60 to 65%. ?Grade 1 diastolic dysfunction ?Mild mitral regurgitation ?Mild pulmonary hypertension.? Mild tricuspid regurgitation. ?Compared to prior echocardiogram from 04/15/2021, no significant ?changes are seen. ?Cecilio Julian MD ?(Electronically Signed) ?Final Date:? ? ? 27 December 2021 ? 14:04 S Laboratory Results WBC 11.3 10^3/uL (4.0-10.0) H 12/27/21 04:46 RBC 3.41 10^6/uL (4.1-5.3) L 12/27/21 04:46 Hgb 9.9 g/dL (11.5-15.3) L 12/27/21 04:46 Hct 28.7 % (37.0-47.0) L 12/27/21 04:46 MCV 84.2 fl (81-99) 12/27/21 04:46 MCH 29.0 pg (28.0-34.0) 12/27/21 04:46 MCHC 34.5 g/dL (30.0-36.0) 12/27/21 04:46 RDW 13.6 % (12.1-15.1) 12/27/21 04:46 Plt Count 322 10^3/cmm (130-400) 12/27/21 04:46 MPV 10.3 fL (7.4-10.4) 12/27/21 04:46 Neut % (Auto) 53.8 % 12/27/21 04:46 Lymph % (Auto) 34.8 % 12/27/21 04:46 [place] % (Auto) 9.5 % 12/27/21 04:46 Eos % (Auto) 1.1 % 12/27/21 04:46 Baso % (Auto) 0.5 % 12/27/21 04:46 Neut # (Auto) 6.09 10^3/uL (1.8-7.7) 12/27/21 04:46 Lymph # (Auto) 3.9 10^3/uL (0.8-4.8) 12/27/21 04:46 [place] # (Auto) 1.1 10^3/uL (0.2-0.9) H 12/27/21 04:46 Eos # (Auto) 0.1 10^3/uL (0.0-0.8) 12/27/21 04:46 Baso # (Auto) 0.1 10^3/uL (0.0-0.1) 12/27/21 04:46 Nucleated RBC % (auto) 0 % 12/27/21 04:46 Nucleated RBCs # 0.0 /100WBC 12/27/21 04:46 D-Dimer 0.33 ug/mIFEU (0-0.59) 12/26/21 13:41 Sodium 124 mmol/L (136-145) L 12/27/21 04:46 Potassium 4.6 mmol/L (3.5-5.1) 12/27/21 04:46 Chloride 89 mmol/L (98-107) L 12/27/21 04:46 Carbon Dioxide 21 mmol/L (22-29) L 12/27/21 04:46 Anion Gap 18.6 (5-19) 12/27/21 04:46 BUN 11 mg/dL (8-23) 12/27/21 04:46 Creatinine 0.4 mg/dL (0.5-0.9) L 12/27/21 04:46 GFR Calculation 159.2 mL/min (90-130) H 12/27/21 04:46 Glucose 184 mg/dL (65-115) H 12/27/21 04:46 POC Glucose 195 mg/dL (70-110) H 12/27/21 06:51 Estimat Average Glucose 143 12/26/21 13:41 Hemoglobin A1c 6.6 % (4.0-6.0) H 12/26/21 13:41 Calculated Osmolality 262 mOsm/kg (285-295) L 12/27/21 04:46 Calcium 8.6 mg/dL (8.5-10.5) 12/27/21 04:46 Iron 23 ug/dL (37-145) L 12/26/21 15:33 TIBC 470 mcg/dl 12/26/21 15:33 % Saturation 4.8 % (20-50) L 12/26/21 15:33 Unsat Iron Binding 447 ug/dL (112-347) H 12/26/21 15:33 Total Bilirubin 0.2 mg/dL (0.15-1.2) 12/27/21 04:46 AST 15 U/L (0-32) 12/27/21 04:46 ALT 8 U/L (0-33) 12/27/21 04:46 Alkaline Phosphatase 111 U/L (35-105) H 12/27/21 04:46 Troponin T Baseline 11 ng/L (0-10) H 12/26/21 13:41 Troponin T 120 Minute 10.45 ng/L (0-10) H 12/26/21 15:33 Delta Troponin T -0.55 ABS# (0-10) L 12/26/21 15:33 Troponin T Hi Sens 6Hr 10.53 ng/L (0-10) H 12/27/21 04:46 Troponin T Hi Sens 6Hr Delta -0.47 ng/L (0-12) L 12/27/21 04:46 NT-Pro-B Natriuret Pep 1280 pg/mL (0-125) H 12/26/21 15:33 Total Protein 6.0 g/dL (6.6-8.7) L 12/27/21 04:46 Albumin 3.3 g/dL (3.5-5.2) L 12/27/21 04:46 Globulin 2.7 g/dL (1.3-4.6) 12/27/21 04:46 Triglycerides 188 mg/dL (0-150) H 12/27/21 04:46 Cholesterol 173 mg/dL (0-200) 12/27/21 04:46 LDL Cholesterol, Calc 90 mg/dL (50-129) 12/27/21 04:46 Total VLDL Cholesterol 38 mg/dL (0-30) H 12/27/21 04:46 HDL Cholesterol 45 mg/dL (60-100) L 12/27/21 04:46 Cholesterol/HDL Ratio 3.84 mg/dL (0.0-4.40) 12/27/21 04:46 Vitamin B12 417 pg/mL (232-1245) 12/26/21 15:33 Folate 14.0 ng/mL (4.8-37.3) 12/26/21 13:41 TSH 0.58 uIU/mL (0.27-4.20) 12/26/21 15:33 Urine Color Yellow (Yellow) 12/27/21 07:08 Urine Appearance Clear (CLEAR) 12/27/21 07:08 Urine pH 6 (5-7) 12/27/21 07:08 Ur Specific Amelia 1.010 (1.005-1.030) 12/27/21 07:08 Urine Protein Neg (Negative) 12/27/21 07:08 Urine Glucose (UA) Norm (Normal) 12/27/21 07:08 Urine Ketones Negative (Negative) 12/27/21 07:08 Urine Blood Neg (Negative) 12/27/21 07:08 Urine Nitrate Negative (Negative) 12/27/21 07:08 Urine Bilirubin Neg (Negative) 12/27/21 07:08 Urine Urobilinogen Neg mg/dL (Negative) 12/27/21 07:08 Ur Leukocyte Esterase 2+ (Negative) H 12/27/21 07:08 Urine RBC None /hpf (0-2) 12/27/21 07:08 Urine WBC 15-25 /hpf (0-5) H 12/27/21 07:08 Ur Squamous Epith Cells 0-4 /hpf (0-5) H 12/27/21 07:08 Amorphous Sediment Not Reportable 12/27/21 07:08 Urine Bacteria 3+ /hpf (NONE) H 12/27/21 07:08 Vitals Last Vital Signs Temp 97.5 F L 12/27/21 12:00 Pulse 72 12/27/21 12:00 Resp 16 12/27/21 12:00 BP 175/85 12/27/21 12:00 Pulse Ox 98 12/27/21 12:00 O2 Del Method 12/27/21 12:00 Discharge Plan Discharge Patient Disposition: Home Condition: Stable Prescriptions: Continued gabapentin 100 mg capsule 200 mg PO TID metoprolol tartrate 50 mg tablet 25 mg PO BID duloxetine 20 mg capsule,delayed release(DR/EC) 20 mg PO BID mirtazapine 45 mg tablet 45 mg PO BEDTIME insulin aspart U-100 [Novolog Flexpen U-100 Insulin] 100 unit/mL (3 mL) insulin pen See Rx Instructions .ROUTE .COMPLEX Rx Instructions: SLIDING SCALE as needed when blood sugar is over 200 prednisone 1 mg tablet 1 mg PO QAM memantine [Namenda] 10 mg tablet 10 mg PO BID Qty: 180 0RF acetaminophen 325 mg tablet 650 - 975 mg PO QID PRN (Reason: Pain) levothyroxine 50 mcg Tablet 50 mcg PO DAILY@0800 Qty: 30 0RF methocarbamol 750 mg tablet 750 mg PO TID hydrocodone-acetaminophen 5-325 mg tablet 1 tab PO Q6H PRN (Reason: pain) Qty: 20 0RF loperamide 2 mg Tablet 2 mg PO BID PRN (Reason: Diarrhea) 15 Days Qty: 15 0RF promethazine 25 mg tablet 25 mg PO TID PRN (Reason: Nausea) 15 Days Qty: 30 0RF BuSpar 10 mg Tablet 20 mg PO TID galantamine 4 mg Tablet 4 mg PO BID Rx Instructions: administer with AM and PM meals hydroxyzine HCl 50 mg Tablet 50 mg PO BEDTIME temazepam 7.5 mg Capsule 7.5 mg PO BEDTIME ondansetron 8 mg Tablet,Disintegrating 8 mg PO Q12H PRN (Reason: Nausea And Vomiting) lisinopril 10 mg tablet 10 mg PO QAM TwoCal HN 0.08-2 gram-kcal/mL Liquid See Rx Instructions .ROUTE .COMPLEX Rx Instructions: 50ML/HR GASTRIC TUBE DIRECTED FOR 18 HOURS WITH 30ML WATER FLUSH QID sodium chloride 1 gram tablet 1 g PO BID metoclopramide HCl 10 mg tablet 5 mg PO QAM Changed pantoprazole 40 mg tablet,delayed release (DR/EC) 40 mg PO BID Qty: 60 0RF sucralfate 1 gram tablet 1 g PO QID Qty: 90 0RF Discharge Orders: Discharge Order (Routine); Ordered 12/27/21 Ordered By: Gee Hyatt Referrals: Thu Flores FNP [Primary Care Provider] - 7-10 days Discharge Diet: Cardiac and Diabetic Discharge Activity: Resume usual activity and Increase activity as tolerated Patient Instructions: Opioid Safety Activity Restrictions/Additional Instructions: Take Protonix 40 mg twice daily Take Carafate before meals and at bedtime. Discharge Attestations Time Spent in Discharge Care*: greater than 30 min Specific Discharge Activities: educating patient, discussing with pcp/other providers, discussing with counter caser/social workers/dc planners, documenting/other paperwork and evaluating patient/reviewing data Status at Discharge: Cognitive status at discharge: cognitively intact , Behavioral status at discharge: cooperative , Functional status at discharge: independent ambulation , Overall status at discharge: patient is back to baseline Quality Metrics Clinical Quality Measures [ No reported AMI, CVA or VTE this stay] Coding Level of Care Code Acute Chg FW DC note Diagnoses Atypical chest pain R07.89 Acute esophagitis K20.90 Adrenal insufficiency E27.40 Chronic hyponatremia E87.1 Chronic diastolic CHF (congestive heart failure) I50.32 CKD (chronic kidney disease), stage II N18.2 Insulin dependent type 2 diabetes mellitus E11.9; Z79.4 Lewy body dementia G31.83; F02.80
== END 2021-12-27 16:00 | disposition home or self-care (01) ==
LOC: ER 14:00 → MEDSURG 18:45
PROVIDERS: Family Medicine; Admitting Provider Student in an Organized Health Care Education/Training Program; Emergency Provider Emergency Medicine; PCP Nurse Practitioner; Visit Provider Student in an Organized Health Care Education/Training Program
DX: R07.89 Other chest pain (principal); K20.90 Esophagitis, unspecified without bleeding; E27.40 Unspecified adrenocortical insufficiency; E87.1 Hypo-osmolality and hyponatremia; E11.22 Type 2 diabetes mellitus with diabetic chronic kidney disease; I13.0 Hypertensive heart and chronic kidney disease with heart failure and stage 1 through stage 4 chronic kidney disease, or unspecified chronic kidney disease; N18.2 Chronic kidney disease, stage 2 (mild); I50.32 Chronic diastolic (congestive) heart failure; Z79.4 Long term (current) use of insulin; G31.83 Neurocognitive disorder with Lewy bodies; F02.80 Dementia in other diseases classified elsewhere, unspecified severity, without behavioral disturbance, psychotic disturbance, mood disturbance, and anxiety; Z79.52 Long term (current) use of systemic steroids; F17.290 Nicotine dependence, other tobacco product, uncomplicated
CPT/HCPCS: 36415; 36416; 71045; 78452; 80048; 80053; 80061; 81001; 82607; 82746; 82962; 83036; 83540; 83550; 83880; 84443; 84484; 85025; 85378; 87077; 87086; 87186; 93005; 93017; 93306; 94760; 96372; 96374; 96376; 99285; A9500; G0378; J1644; J2270; J2785; J7512; J8597

== ENCOUNTER 2022-01-01 14:39 | Emergency (ER) | payer OTHER, SELFPAY ==
[2022-01-01] VITALS (11 sets, daily range): BP systolic 137–213; BP diastolic 68–110; PULSE 74–105; RESP 16–22; TEMP 36.7; O2SAT 95–99; BMI 23.0
--- NOTE | 2022-01-01 14:54 | ED_ITS ---
Documented by User: Lewis Coe MD 01/03/22 22:46 HPI - General Adult General: Chief complaint: Fall Stated complaint: N/Headache Time Seen by Provider: 01/01/22 14:52 History of Present Illness: Patient is a 66-year-old female with history of migraines, adrenal insufficiency, Alzheimer's disease, atrial fibrillation, ARDS, type 2 diabetes with gastroparesis presenting to the emergency room for concerns of headache. She tells me that she fell 3 days ago and has left-sided facial bruises and hematoma. At that time, patient does not remember how she fe ll. The episode was unwitnessed by patient's who found patient on the ground. Unclear if there was LOC associated with the fall. Patient went to [facility] at which point time had a negative imaging work-up. Was discharged home. Patient has no associate chest pain or shortness of breath, palpitation prior to the episode of fall. Patient is not on any anticoagulation. Patient admits since Thursday, she has had persistent headache. Earlier today, patient notes that her headaches worsened. Patient has the headaches different from her usual migraine. Patient denies any additional fall or injuries. Patient complains of right-sided neck pain from the episode of fall but still persistent today. No fever/chill, chest pain, shortness of breath, abdominal pain, dysuria/hematuria/polyuria, diarrhea/melena/hematochezia. Onset: 3 days ago Duration:3 days Location:home Severity:moderate Associated symptoms: Reports headache(s); Deny chest pain, dyspnea, nausea, rash, palpitations or vomiting Review of Systems Const: Denies: fever(s) or chills Eyes: Denies: change in vision ENMT: Reports: other (facial bruise and hematoma); Denies: mouth pain Card: Denies: chest pain or palpitations Resp: Denies: dyspnea or non-productive cough GI: Denies: abdominal pain, nausea, vomiting or diarrhea : Denies: dysuria Musc: Denies: extremity pain Skin/Breast: Denies: rash or new lesions Neuro: Reports: headache(s); Denies: weakness in extremities Psych: Reports: other (Normal mood) Jeremiah/Lymph: Denies: easy bruising PFS ED PFSH: Medical History Acute esophagitis Acute hypokalemia Adrenal insufficiency Altered mental status Alzheimer disease Anemia ARDS (adult respiratory distress syndrome) Aspiration into airway Aspiration pneumonia Atrial fibrillation, new onset C. difficile diarrhea Chest pain Chronic back pain Chronic diarrhea Chronic diastolic CHF (congestive heart failure) Chronic hyponatremia CKD (chronic kidney disease), stage II Depression Diabetic gastroparesis Dysphagia Generalized anxiety disorder GERD (gastroesophageal reflux disease) Headache Hyperlipidemia Hypertension Hypothyroidism Insulin dependent type 2 diabetes mellitus Lactic acidosis Lewy body dementia Major depressive disorder, recurrent severe without psychotic features Morbid obesity PEG tube malfunction Post-traumatic stress disorder, chronic Tachycardia Surgical History H/O esophagogastroduodenoscopy H/O: hysterectomy History of bunionectomy bilateral Hx of cholecystectomy S/P percutaneous endoscopic gastrostomy (PEG) tube placement Status post colonoscopy Family History Mother Hypertension Diabetes Father Hypertension Asthma Other CAD (coronary artery disease) Cancer Denies family history of Anesthesia complication Bleeding disorder Social History Smoking and tobacco status: current every day smoker cigars Cigars smoked per week: 35 Years smoked cigars: 53 Cigar details: 1 PPD Quit status (tobacco): has tried quititng Second hand smoke exposure: Yes Smoking risk assessment/counseling performed?: No Alcohol intake: former Former alcohol use details: Reportedly has not had any alcohol since June Household members: spouse Housing: Manufactured/Mobile home Marital status: Current occupational status: retired History of recent travel: No Physical Exam Const: COMMON NORMALS: alert HENMT: MOUTH: moist mucous membranes not abnormal OTHER: +L frontal hematoma, +L periorbital hematoma Eye: COMMON NORMALS: EOMs intact bilaterally and conjunctivae normal CONJUNCTIVA: Yes conjunctivae normal Neck/C-Spine: COMMON NORMALS: full ROM and supple OTHER: No nuchal rigidity Resp: COMMON NORMALS: normal respiratory effort and clear to auscultation bilaterally AUSCULTATION: clear to auscultation bilaterally Cardio: COMMON NORMALS: regular rate RATE: regular rate GI: COMMON NORMALS: Soft to palpation and non-tender PALPATION: Yes Soft to palpation Back/Pelvis: OTHER: No midline cervical/thoracic/lumbar bony area tenderness to palpation Extremity: COMMON NORMALS: full ROM Neuro: SENSORIUM/ORIENTATION: Yes alert MOTOR EXAM: No Abnormal motor strength present and Other motor observations present (no focal motor deficits) Psych: COMMON NORMALS: speech normal SPEECH: Yes normal speech MOOD & AFFECT: Yes euthymic mood Course Vital Signs: Vital signs: Vital Signs Temperature 98.0 F 01/01/22 14:55 Pulse Rate 68 01/02/22 00:17 Respiratory Rate 16 01/02/22 00:17 Blood Pressure 157/86 01/02/22 00:17 Pulse Oximetry 95 01/02/22 00:17 Oxygen Delivery Me thod 01/02/22 00:17 MDM - General Adult Medical Decision Making Patient is a 66-year-old female with history of migraines, adrenal insufficiency, Alzheimer's disease, atrial fibrillation, ARDS, type 2 diabetes with gastroparesis presenting to the emergency room for concerns of headache. On physical exam, patient has left frontal hematoma and left hernandez-orbital hematoma. CT head and CT face negative for any acute finding. Patient is found to have sodium 126. Patient continues to have intermittent have had headache. Patient received headache cocktail with improvement headache. CT head and neck negative for any acute finding. Scan showed odontoid process base fracture. I discussed this with patient who tells me that she previously had surgery last year. Do not suspect this new. Rx: Magnesium oxide, Tylenol, Reglan as needed for headache Disposition: Discharge. Patient counseled regarding diagnostic impression, treatment plan. Patient given ED strict return precautions to return for continuation, worsening, or development of new symptoms. Instructed to f/u w/ PCP regarding symptoms today. Patient verbalized understanding. Lab Data : 01/01/22 15:37 01/01/22 15:[address] 01/01/22 15:45 IMPRESSION: 1. Negative for fracture to the bones of the face. 2. Odontoid process base fracture with retropulsion of the odontoid type process by 2.1 mm with sclerotic margins, suggestive of a chronic fracture, especially given surgical wires in the C1-2 spinous processes, please correlate clinically and consider further evaluation with a cervical spine CT. Head CT 01/01/22 15:45 IMPRESSION: Negative for intracranial hemorrhage or mass effect Head/Neck CTA 01/01/22 18:27 IMPRESSION: No acute vascular injury. IMPRESSION: No acute vascular injury. Chronic C2 fracture with posterior fixation. Probable left upper lobe pneumonia or possible contusion in the setting of trauma. REFERENCES: NASCET CRITERIA. The degree of stenosis in the cervical segment of the internal carotid artery is based on NASCET criteria. Normal is no stenosis. Mild is less than 50% stenosis. Moderate is 50-69% stenosis. Severe is 70% to 99% stenosis. Total occlusion is no detectable patent lumen. Laboratory Results WBC 9.9 10^3/uL (4.0-10.0) 01/01/22 15:37 RBC 4.02 10^6/uL (4.1-5.3) L 01/01/22 15:37 Hgb 11.5 g/dL (11.5-15.3) 01/01/22 15:37 Hct 34.9 % (37.0-47.0) L 01/01/22 15:37 MCV 86.8 fl (81-99) 01/01/22 15:37 MCH 28.6 pg (28.0-34.0) 01/01/22 15:37 MCHC 33.0 g/dL (30.0-36.0) 01/01/22 15:37 RDW 14.4 % (12.1-15.1) 01/01/22 15:37 Plt Count 432 10^3/cmm (130-400) H 01/01/22 15:37 MPV 9.8 fL (7.4-10.4) 01/01/22 15:37 Neut % (Auto) 72.4 % 01/01/22 15:37 Lymph % (Auto) 15.5 % 01/01/22 15:37 Jennings % (Auto) 9.6 % 01/01/22 15:37 Eos % (Auto) 1.6 % 01/01/22 15:37 Baso % (Auto) 0.5 % 01/01/22 15:37 Neut # (Auto) 7.19 10^3/uL (1.8-7.7) 01/01/22 15:37 Lymph # (Auto) 1.5 10^3/uL (0.8-4.8) 01/01/22 15:37 Jennings # (Auto) 1.0 10^3/uL (0.2-0.9) H 01/01/22 15:37 Eos # (Auto) 0.2 10^3/uL (0.0-0.8) 01/01/22 15:37 Baso # (Auto) 0.1 10^3/uL (0.0-0.1) 01/01/22 15:37 Nucleated RBC % (auto) 0 % 01/01/22 15:37 Nucleated RBCs # 0.0 /100WBC 01/01/22 15:37 Sodium 126 mmol/L (136-145) L 01/01/22 15:37 Potassium 4.0 mmol/L (3.5-5.1) 01/01/22 15:37 Chloride 88 mmol/L (98-107) L 01/01/22 15:37 Carbon Dioxide 22 mmol/L (22-29) 01/01/22 15:37 Anion Gap 20.0 (5-19) H 01/01/22 15:37 BUN 5 mg/dL (8-23) L 01/01/22 15:37 Creatinine 0.4 mg/dL (0.5-0.9) L 01/01/22 15:37 GFR Calculation 159.2 mL/min (90-130) H 01/01/22 15:37 Glucose 158 mg/dL (65-115) H 01/01/22 15:37 Calculated Osmolality 263 mOsm/kg (285-295) L 01/01/22 15:37 Calcium 9.5 mg/dL (8.5-10.5) 01/01/22 15:37 Total Bilirubin 0.2 mg/dL (0.15-1.2) 01/01/22 15:37 AST 18 U/L (0-32) 01/01/22 15:37 ALT 14 U/L (0-33) 01/01/22 15:37 Alkaline Phosphatase 124 U/L (35-105) H 01/01/22 15:37 Total Protein 7.2 g/dL (6.6-8.7) 01/01/22 15:37 Albumin 3.9 g/dL (3.5-5.2) 01/01/22 15:37 Globulin 3.3 g/dL (1.3-4.6) 01/01/22 15:37 Lipase 20 U/L (13-60) 01/01/22 15:37 Urine Color Yellow (Yellow) 01/01/22 18:04 Urine Appearance Hazy (CLEAR) A 01/01/22 18:04 Urine pH 6 (5-7) 01/01/22 18:04 Ur Specific [place] 1.015 (1.005-1.030) 01/01/22 18:04 Urine Protein Neg (Negative) 01/01/22 18:04 Urine Glucose (UA) Norm (Normal) 01/01/22 18:04 Urine Ketones 2+ (Negative) H 01/01/22 18:04 Urine Blood Neg (Negative) 01/01/22 18:04 Urine Nitrate Positive (Negative) H 01/01/22 18:04 Urine Bilirubin Neg (Negative) 01/01/22 18:04 Urine Urobilinogen Norm mg/dL (Negative) 01/01/22 18:04 Ur Leukocyte Esterase Negative (Negative) 01/01/22 18:04 Urine RBC 0-4 /hpf (0-2) H 01/01/22 18:04 Urine WBC 5-10 /hpf (0-5) H 01/01/22 18:04 Ur Squamous Epith Cells 0-4 /hpf (0-5) H 01/01/22 18:04 Amorphous Sediment Not Reportable 01/01/22 18:04 Urine Bacteria 3+ /hpf (NONE) H 01/01/22 18:04 Imaging Data Other Imaging: Radiologist's impression: [place] [address] CT Scan Report Signed Patient: Ingris Mendosa Unit #: [id number] : 1955 Age/Sex: 66 / F ADM Date: 01/01/22 Loc: ER Room/Bed: Attending Dr: Ordering Provider/Ordering MD: Lewis Coe MD Date of Service: 01/01/22 Procedure(s): CT head wo con* [id number] Accession Number(s): [id number] Report Number: [id number] PROCEDURE INFORMATION: Exam: CT Head Without Contrast Exam date and time: 01/01/2022 4:31 PM Age: 66 years old Clinical indication: Injury or trauma; Fall; Blunt trauma (contusions or hematomas) TECHNIQUE: Imaging protocol: Computed tomography of the head without contrast. Radiation optimization: All CT scans at this facility use at least one of these dose optimization techniques: automated exposure control; mA and/or kV adjustment per patient size (includes targeted exams where dose is matched to clinical indication); or iterative reconstruction. COMPARISON: CT head wo con* [id number] 10/19/2021 9:42 PM RADIATION DOSE METRICS: Total DLP (mGy-cm): 894.7 FINDINGS: Brain: Normal. No hemorrhage. Unremarkable white matter. No mass effect. Cerebral ventricles: No ventriculomegaly. Paranasal sinuses: Visualized sinuses are unremarkable. No fluid levels. Mastoid air cells: Visualized mastoid air cells are well aerated. Bones/joints: Unremarkable. No acute fracture. Soft tissues: Left frontal soft tissue swelling. CT/CT head wo con* [id number] IMPRESSION: Negative for intracranial hemorrhage or mass effect ? Dictated By: Duncan Cotto MD Signed By: Duncan Cotto MD Signed Date/Time: 01/01/22 172 DD/ 1631 [place] [address] CT Scan Report Signed Patient: Ingris Mendosa Unit #: [id number] : 1955 Age/Sex: 66 / F ADM Date: 01/01/22 Loc: ER Room/Bed: Attending Dr: Ordering Provider/Ordering MD: Lewis Coe MD Date of Service: 01/01/22 Procedure(s): CT facial bones wo con* [id number] Accession Number(s): [id number] Report Number: [id number] PROCEDURE INFORMATION: Exam: CT Maxillofacial Without Contrast Exam date and time: 01/01/2022 4:40 PM Age: 66 years old Clinical indication: Injury or trauma; Fall; Blunt trauma (contusions or hematomas); Eyelid and forehead and nose; Upper right TECHNIQUE: Imaging protocol: Computed tomography of the of the face without contrast. Radiation optimization: All CT scans at this facility use at least one of these dose optimization techniques: automated exposure control; mA and/or kV adjustment per patient size (includes targeted exams where dose is matched to clinical indication); or iterative reconstruction. COMPARISON: CT head wo con* [id number] 10/19/2021 9:42 PM RADIATION DOSE METRICS: Total DLP (mGy-cm): 454.5 FINDINGS: Orbital cavities: Orbits are normal. Globes are unremarkable. Bones/joints: Odontoid process base fracture with retropulsion of the odontoid type process by 2.1 mm with sclerotic margins, suggestive of a chronic fracture, especially given surgical wires in the C1-2 spinous processes, please correlate clinically and consider further evaluation with a cervical spine CT. Paranasal sinuses: Normal. No air-fluid levels. Soft tissues: Unremarkable. CT/CT facial bones wo con* [id number] IMPRESSION: 1. Negative for fracture to the bones of the face. 2. Odontoid process base fracture with retropulsion of the odontoid type process by 2.1 mm with sclerotic margins, suggestive of a chronic fracture, especially given surgical wires in the C1-2 spinous processes, please correlate clinically and consider further evaluation with a cervical spine CT. ? Dictated By: Duncan Cotto MD Signed By: Duncan Cotto MD Signed Date/Time: 01/01/22 1724 DD/ 1640 Discharge Plan Discharge Patient Disposition: Home Clinical Impression: Headache, Fall, Multiple contusions Condition: Stable Prescriptions: New hydrocodone-acetaminophen 5-325 mg tablet 1 tab PO Q6H PRN (Reason: pain) Qty: 10 0RF No Action gabapentin 100 mg capsule 200 mg PO TID metoprolol tartrate 50 mg tablet 25 mg PO BID duloxetine 20 mg capsule,delayed release(DR/EC) 20 mg PO BID insulin aspart U-100 [Novolog Flexpen U-100 Insulin] 100 unit/mL (3 mL) insulin pen See Rx Instructions .ROUTE .COMPLEX Rx Instructions: SLIDING SCALE as needed when blood sugar is over 200 memantine [Namenda] 10 mg tablet 10 mg PO BID Qty: 180 0RF acetaminophen 325 mg tablet 650 - 975 mg PO QID PRN (Reason: Pain) levothyroxine 50 mcg Tablet 50 mcg PO DAILY@0800 Qty: 30 0RF hydrocodone-acetaminophen 5-325 mg tablet 1 tab PO Q6H PRN (Reason: pain) Qty: 20 0RF buspirone 10 mg Tablet 20 mg PO TID galantamine 4 mg Tablet 4 mg PO BID Rx Instructions: administer with AM and PM meals hydroxyzine HCl 50 mg Tablet 50 mg PO BEDTIME temazepam 7.5 mg Capsule 7.5 mg PO BEDTIME ondansetron 8 mg Tablet,Disintegrating 8 mg PO Q12H PRN (Reason: Nausea And Vomiting) TwoCal HN 0.08-2 gram-kcal/mL Liquid See Rx Instructions .ROUTE .COMPLEX Rx Instructions: 50ML/HR GASTRIC TUBE DIRECTED FOR 18 HOURS WITH 30ML WATER FLUSH QID sodium chloride 1 gram tablet 1 g PO BID metoclopramide HCl 10 mg tablet 5 mg PO QAM sucralfate 1 gram tablet 1 g PO QID Qty: 90 0RF pantoprazole 40 mg tablet,delayed release (DR/EC) 40 mg PO BID Qty: 60 0RF atorvastatin 80 mg Tablet 80 mg PO QPM lisinopril 20 mg Tablet 10 mg PO DAILY naloxone 4 mg/actuation Faison,Non-Aerosol 4 mg INTRANASAL Q3M PRN (Reason: Opioid Overdose) Rx Instructions: spray 1 dose into ONE nostril; alternate nostrils w each dose until help arrives Discharge Orders: Discharge ED (Routine); Ordered 01/01/22 Ordered By: Brennan Blanchard Referrals: Thu Flores FNP [Primary Care Provider] - Discharge Diet: Usual diet Discharge Activity: Increase activity as tolerated Patient Instructions: Head Injury (ED), Acute Headache (ED), Contusion in Adults (ED), Opioid Safety, Pain Management Activity Restrictions/Additional Instructions: Thank you for visiting the emergency department. You were seen evaluated for headache after fall. No additional injury was identified on ED evaluation. Please follow-up with a primary care provider. Be cautious using opioids. Return to the emergency department for any new neurologic symptoms, uncontrolled symptoms, or anything else that you are concerned about a feel needs emergency department evaluation. Coding Level of Care Code ED Manager Of Disaster Recovery for Chg Fwd Exam Comprehensive Documented by User: Brennan Blanchard MD 01/12/22 18:00 HPI - General Adult General: Chief complaint: Fall Stated complaint: N/Headache Time Seen by Provider: 01/01/22 14:52 PFSH ED PFSH: Medical History Acute esophagitis Acute hypokalemia Adrenal insufficiency Altered mental status Alzheimer disease Anemia ARDS (adult respiratory distress syndrome) Aspiration into airway Aspiration pneumonia Atrial fibrillation, new onset C. difficile diarrhea Chest pain Chronic back pain Chronic diarrhea Chronic diastolic CHF (congestive heart failure) Chronic hyponatremia CKD (chronic kidney disease), stage II Depression Diabetic gastroparesis Dysphagia Generalized anxiety disorder GERD (gastroesophageal reflux disease) Headache Hyperlipidemia Hypertension Hypothyroidism Insulin dependent type 2 diabetes mellitus Lactic acidosis Lewy body dementia Major depressive disorder, recurrent severe without psychotic features Morbid obesity PEG tube malfunction Post-traumatic stress disorder, chronic Tachycardia Surgical History H/O esophagogastroduodenoscopy H/O: hysterectomy History of bunionectomy bilateral Hx of cholecystectomy S/P percutaneous endoscopic gastrostomy (PEG) tube placement Status post colonoscopy Family History Mother Hypertension Diabetes Father Hypertension Asthma Other CAD (coronary artery disease) Cancer Denies family history of Anesthesia complication Bleeding disorder Social History Smoking and tobacco status: current every day smoker cigars Cigars smoked per week: 35 Years smoked cigars: 53 Cigar details: 1 PPD Quit status (tobacco): has tried quititng Second hand smoke exposure: Yes Smoking risk assessment/counseling performed?: No Alcohol intake: former Former alcohol use details: Reportedly has not had any alcohol since June Household members: spouse Housing: Manufactured/Mobile home Marital status: Current occupational status: retired History of recent travel: No Course Vital Signs: Vital signs: Vital Signs Temperature 98.0 F 01/01/22 14:55 Pulse Rate 68 01/02/22 00:17 Respiratory Rate 16 01/02/22 00:17 Blood Pressure 157/86 01/02/22 00:17 Pulse Oximetry 95 01/02/22 00:17 Oxygen Delivery Me thod 01/02/22 00:17 [facility] - General Adult Medical Decision Making Patient is a 66-year-old female with history of migraines, adrenal insufficiency, Alzheimer's disease, atrial fibrillation, ARDS, type 2 diabetes with gastroparesis presenting to the emergency room for concerns of headache. On physical exam, patient has left frontal hematoma and left hernandez-orbital hematoma. CT head and CT face negative for any acute finding. Patient is found to have sodium 126. Patient continues to have intermittent have had headache. Patient received headache cocktail with improvement headache. CT head and neck negative for any acute finding. Scan showed odontoid process base fracture. I discussed this with patient who tells me that she previously had surgery last year. Do not suspect this new. Rx: Magnesium oxide, Tylenol, Reglan as needed for headache Disposition: Discharge. Patient counseled regarding diagnostic impression, treatment plan. Patient given ED strict return precautions to return for continuation, worsening, or development of new symptoms. Instructed to f/u w/ PCP regarding symptoms today. Patient verbalized understanding. Patient care handoff received from Dr. Coe pending completion of ED evaluation. Laboratory studies as well as imaging reviewed. Discussed results of ED e valuation with patient. Satisfactory for outpatient management. Brennan Blanchard MD Emergency Medicine Lab Data : 01/01/22 15:37 01/01/22 15:[address] 01/01/22 15:45 IMPRESSION: 1. Negative for fracture to the bones of the face. 2. Odontoid process base fracture with retropulsion of the odontoid type process by 2.1 mm with sclerotic margins, suggestive of a chronic fracture, especially given surgical wires in the C1-2 spinous processes, please correlate clinically and consider further evaluation with a cervical spine CT. Head CT 01/01/22 15:45 IMPRESSION: Negative for intracranial hemorrhage or mass effect Head/Neck CTA 01/01/22 18:27 IMPRESSION: No acute vascular injury. IMPRESSION: No acute vascular injury. Chronic C2 fracture with posterior fixation. Probable left upper lobe pneumonia or possible contusion in the setting of trauma. REFERENCES: NASCET CRITERIA. The degree of stenosis in the cervical segment of the internal carotid artery is based on NASCET criteria. Normal is no stenosis. Mild is less than 50% stenosis. Moderate is 50-69% stenosis. Severe is 70% to 99% stenosis. Total occlusion is no detectable patent lumen. Laboratory Results WBC 9.9 10^3/uL (4.0-10.0) 01/01/22 15:37 RBC 4.02 10^6/uL (4.1-5.3) L 01/01/22 15:37 Hgb 11.5 g/dL (11.5-15.3) 01/01/22 15:37 Hct 34.9 % (37.0-47.0) L 01/01/22 15:37 MCV 86.8 fl (81-99) 01/01/22 15:37 MCH 28.6 pg (28.0-34.0) 01/01/22 15:37 MCHC 33.0 g/dL (30.0-36.0) 01/01/22 15:37 RDW 14.4 % (12.1-15.1) 01/01/22 15:37 Plt Count 432 10^3/cmm (130-400) H 01/01/22 15:37 MPV 9.8 fL (7.4-10.4) 01/01/22 15:37 Neut % (Auto) 72.4 % 01/01/22 15:37 Lymph % (Auto) 15.5 % 01/01/22 15:37 [place] % (Auto) 9.6 % 01/01/22 15:37 Eos % (Auto) 1.6 % 01/01/22 15:37 Baso % (Auto) 0.5 % 01/01/22 15:37 Neut # (Auto) 7.19 10^3/uL (1.8-7.7) 01/01/22 15:37 Lymph # (Auto) 1.5 10^3/uL (0.8-4.8) 01/01/22 15:37 Jennings # (Auto) 1.0 10^3/uL (0.2-0.9) H 01/01/22 15:37 Eos # (Auto) 0.2 10^3/uL (0.0-0.8) 01/01/22 15:37 Baso # (Auto) 0.1 10^3/uL (0.0-0.1) 01/01/22 15:37 Nucleated RBC % (auto) 0 % 01/01/22 15:37 Nucleated RBCs # 0.0 /100WBC 01/01/22 15:37 Sodium 126 mmol/L (136-145) L 01/01/22 15:37 Potassium 4.0 mmol/L (3.5-5.1) 01/01/22 15:37 Chloride 88 mmol/L (98-107) L 01/01/22 15:37 Carbon Dioxide 22 mmol/L (22-29) 01/01/22 15:37 Anion Gap 20.0 (5-19) H 01/01/22 15:37 BUN 5 mg/dL (8-23) L 01/01/22 15:37 Creatinine 0.4 mg/dL (0.5-0.9) L 01/01/22 15:37 GFR Calculation 159.2 mL/min (90-130) H 01/01/22 15:37 Glucose 158 mg/dL (65-115) H 01/01/22 15:37 Calculated Osmolality 263 mOsm/kg (285-295) L 01/01/22 15:37 Calcium 9.5 mg/dL (8.5-10.5) 01/01/22 15:37 Total Bilirubin 0.2 mg/dL (0.15-1.2) 01/01/22 15:37 AST 18 U/L (0-32) 01/01/22 15:37 ALT 14 U/L (0-33) 01/01/22 15:37 Alkaline Phosphatase 124 U/L (35-105) H 01/01/22 15:37 Total Protein 7.2 g/dL (6.6-8.7) 01/01/22 15:37 Albumin 3.9 g/dL (3.5-5.2) 01/01/22 15:37 Globulin 3.3 g/dL (1.3-4.6) 01/01/22 15:37 Lipase 20 U/L (13-60) 01/01/22 15:37 Urine Color Yellow (Yellow) 01/01/22 18:04 Urine Appearance Hazy (CLEAR) A 01/01/22 18:04 Urine pH 6 (5-7) 01/01/22 18:04 Ur Specific [place] 1.015 (1.005-1.030) 01/01/22 18:04 Urine Protein Neg (Negative) 01/01/22 18:04 Urine Glucose (UA) Norm (Normal) 01/01/22 18:04 Urine Ketones 2+ (Negative) H 01/01/22 18:04 Urine Blood Neg (Negative) 01/01/22 18:04 Urine Nitrate Positive (Negative) H 01/01/22 18:04 Urine Bilirubin Neg (Negative) 01/01/22 18:04 Urine Urobilinogen Norm mg/dL (Negative) 01/01/22 18:04 Ur Leukocyte Esterase Negative (Negative) 01/01/22 18:04 Urine RBC 0-4 /hpf (0-2) H 01/01/22 18:04 Urine WBC 5-10 /hpf (0-5) H 01/01/22 18:04 Ur Squamous Epith Cells 0-4 /hpf (0-5) H 01/01/22 18:04 Amorphous Sediment Not Reportable 01/01/22 18:04 Urine Bacteria 3+ /hpf (NONE) H 01/01/22 18:04 Discharge Plan Discharge Patient Disposition: Home Clinical Impression: Headache, Fall, Multiple contusions Condition: Stable Prescriptions: New hydrocodone-acetaminophen 5-325 mg tablet 1 tab PO Q6H PRN (Reason: pain) Qty: 10 0RF No Action gabapentin 100 mg capsule 200 mg PO TID metoprolol tartrate 50 mg tablet 25 mg PO BID duloxetine 20 mg capsule,delayed release(DR/EC) 20 mg PO BID insulin aspart U-100 [Novolog Flexpen U-100 Insulin] 100 unit/mL (3 mL) insulin pen See Rx Instructions .ROUTE .COMPLEX Rx Instructions: SLIDING SCALE as needed when blood sugar is over 200 memantine [Namenda] 10 mg tablet 10 mg PO BID Qty: 180 0RF acetaminophen 325 mg tablet 650 - 975 mg PO QID PRN (Reason: Pain) levothyroxine 50 mcg Tablet 50 mcg PO DAILY@0800 Qty: 30 0RF hydrocodone-acetaminophen 5-325 mg tablet 1 tab PO Q6H PRN (Reason: pain) Qty: 20 0RF buspirone 10 mg Tablet 20 mg PO TID galantamine 4 mg Tablet 4 mg PO BID Rx Instructions: administer with AM and PM meals hydroxyzine HCl 50 mg Tablet 50 mg PO BEDTIME temazepam 7.5 mg Capsule 7.5 mg PO BEDTIME ondansetron 8 mg Tablet,Disintegrating 8 mg PO Q12H PRN (Reason: Nausea And Vomiting) TwoCal HN 0.08-2 gram-kcal/mL Liquid See Rx Instructions .ROUTE .COMPLEX Rx Instructions: 50ML/HR GASTRIC TUBE DIRECTED FOR 18 HOURS WITH 30ML WATER FLUSH QID sodium chloride 1 gram tablet 1 g PO BID metoclopramide HCl 10 mg tablet 5 mg PO QAM sucralfate 1 gram tablet 1 g PO QID Qty: 90 0RF pantoprazole 40 mg tablet,delayed release (DR/EC) 40 mg PO BID Qty: 60 0RF atorvastatin 80 mg Tablet 80 mg PO QPM lisinopril 20 mg Tablet 10 mg PO DAILY naloxone 4 mg/actuation [place],Non-Aerosol 4 mg INTRANASAL Q3M PRN (Reason: Opioid Overdose) Rx Instructions: spray 1 dose into ONE nostril; alternate nostrils w each dose until help arrives Discharge Orders: Discharge ED (Routine); Ordered 01/01/22 Ordered By: Brennan Blanchard Referrals: Thu Flores FNP [Primary Care Provider] - Discharge Diet: Usual diet Discharge Activity: Increase activity as tolerated Patient Instructions: Head Injury (ED), Acute Headache (ED), Contusion in Adults (ED), Opioid Safety, Pain Management Activity Restrictions/Additional Instructions: Thank you for visiting the emergency department. You were seen evaluated for headache after fall. No additional injury was identified on ED evaluation. Please follow-up with a primary care provider. Be cautious using opioids. Return to the emergency department for any new neurologic symptoms, uncontrolled symptoms, or anything else that you are concerned about a feel needs emergency department evaluation. Coding Level of Care Code ED Manager Of Disaster Recovery for Navid Fwd Exam Comprehensive
[2022-01-01] MEDS: sodium chloride 0.9% 500 ML IV (15:41)
[2022-01-01] MEDS: metoclopramide 5 mg/mL SDV 2 mL 10 MG IVP (15:43)
[2022-01-01] MEDS: magnesium sulfate premix 2 GM/50 ML PIGGYBACK IV (15:43)
[2022-01-01] MEDS: diphenhydrAMINE 50 mg/mL SDV 1mL IVP (15:43)
[2022-01-01 15:44] LABS: Basophils # 0.1 10^3/uL (0.0-0.1); Basophils % 0.5 %; Eosinophils # 0.2 10^3/uL (0.0-0.8); Eosinophils % 1.6 %; Hematocrit 34.9 % (37.0-47.0); Hemoglobin 11.5 g/dL (11.5-15.3); Lymphocytes # 1.5 10^3/uL (0.8-4.8); Lymphocytes % 15.5 %; Mean Corpuscular Hemoglobin 28.6 pg (28.0-34.0); Mean Corpuscular Volume 86.8 fl (81-99); Mean Platelet Volume 9.8 fL (7.4-10.4); Monocytes % 9.6 %; Neutrophils # 7.19 10^3/uL (1.8-7.7); Neutrophils % 72.4 %; Nucleated Red Blood Cells % 0 %; Platelet Count 432 10^3/cmm (130-400); Red Blood Count 4.02 10^6/uL (4.1-5.3); Red Cell Distribution Width 14.4 % (12.1-15.1); White Blood Count 9.9 10^3/uL (4.0-10.0)
--- NOTE | 2022-01-01 15:45 | CTR_ITS ---
PROCEDURE INFORMATION: Exam: CT Maxillofacial Without Contrast Exam date and time: 01/01/2022 4:40 PM Age: 66 years old Clinical indication: Injury or trauma; Fall; Blunt trauma (contusions or hematomas); Eyelid and forehead and nose; Upper right TECHNIQUE: Imaging protocol: Computed tomography of the of the face without contrast. Radiation optimization: All CT scans at this facility use at least one of these dose optimization techniques: automated exposure control; mA and/or kV adjustment per patient size (includes targeted exams where dose is matched to clinical indication); or iterative reconstruction. COMPARISON: CT head wo con* [id number] 10/19/2021 9:42 PM RADIATION DOSE METRICS: Total DLP (mGy-cm): 454.5 FINDINGS: Orbital cavities: Orbits are normal. Globes are unremarkable. Bones/joints: Odontoid process base fracture with retropulsion of the odontoid type process by 2.1 mm with sclerotic margins, suggestive of a chronic fracture, especially given surgical wires in the C1-2 spinous processes, please correlate clinically and consider further evaluation with a cervical spine CT. Paranasal sinuses: Normal. No air-fluid levels. Soft tissues: Unremarkable. CT/CT facial bones wo con* [id number] IMPRESSION: 1. Negative for fracture to the bones of the face. 2. Odontoid process base fracture with retropulsion of the odontoid type process by 2.1 mm with sclerotic margins, suggestive of a chronic fracture, especially given surgical wires in the C1-2 spinous processes, please correlate clinically and consider further evaluation with a cervical spine CT.
--- NOTE | 2022-01-01 15:45 | CTR_ITS ---
PROCEDURE INFORMATION: Exam: CT Head Without Contrast Exam date and time: 01/01/2022 4:31 PM Age: 66 years old Clinical indication: Injury or trauma; Fall; Blunt trauma (contusions or hematomas) TECHNIQUE: Imaging protocol: Computed tomography of the head without contrast. Radiation optimization: All CT scans at this facility use at least one of these dose optimization techniques: automated exposure control; mA and/or kV adjustment per patient size (includes targeted exams where dose is matched to clinical indication); or iterative reconstruction. COMPARISON: CT head wo con* [id number] 10/19/2021 9:42 PM RADIATION DOSE METRICS: Total DLP (mGy-cm): 894.7 FINDINGS: Brain: Normal. No hemorrhage. Unremarkable white matter. No mass effect. Cerebral ventricles: No ventriculomegaly. Paranasal sinuses: Visualized sinuses are unremarkable. No fluid levels. Mastoid air cells: Visualized mastoid air cells are well aerated. Bones/joints: Unremarkable. No acute fracture. Soft tissues: Left frontal soft tissue swelling. CT/CT head wo con* [id number] IMPRESSION: Negative for intracranial hemorrhage or mass effect
--- NOTE | 2022-01-01 16:05 | PC.PHAR ---
PT UNABLE TO VERIFY MEDICATIONS - VERIFIED USING [facility]RENT [facility] AND EXTERNAL MED LIST
[2022-01-01 16:09] LABS: Alanine Aminotransferase 14 U/L (0-33); Albumin Level 3.9 g/dL (3.5-5.2); Alkaline Phosphatase 124 U/L (35-105); Blood Urea Nitrogen 5 mg/dL (8-23); Calcium 9.5 mg/dL (8.5-10.5); Carbon Dioxide 22 mmol/L (22-29); Chloride 88 mmol/L (98-107); Globulin 3.3 g/dL (1.3-4.6); Glomerular Filtration Rate 159.2 mL/min (90-130); Glucose 158 mg/dL (65-115); Lipase 20 U/L (13-60); Osmolality Calculated 263 mOsm/kg (285-295); Sodium 126 mmol/L (136-145); Total Bilirubin 0.2 mg/dL (0.15-1.2); Total Protein 7.2 g/dL (6.6-8.7)
[2022-01-01 16:14] LABS: Aspartate Amino Transferase 18 U/L (0-32)
[2022-01-01] MEDS: morphine 4 mg/mL SDV 1 mL IM (16:20)
--- NOTE | 2022-01-01 18:27 | CTR_ITS ---
PROCEDURE INFORMATION: Exam: CTA Head With Contrast, Arteriography Exam date and time: 01/01/2022 10:29 PM Age: 66 years old Clinical indication: Pain; Headache; Additional info: Eval dissection and aneurysms TECHNIQUE: Imaging protocol: Computed tomographic angiography of the head with contrast. Exam focused on the arteries. 3D rendering (Not supervised by radiologist): MIP and/or 3D reconstructed images were created by the technologist. Radiation optimization: All CT scans at this facility use at least one of these dose optimization techniques: automated exposure control; mA and/or kV adjustment per patient size (includes targeted exams where dose is matched to clinical indication); or iterative reconstruction. Contrast material: OMNIPAQUE 350; Contrast volume: 95 ml; Contrast route: INTRAVENOUS (IV); COMPARISON: CT angio headneck* [id number] 02/10/2020 3:12 PM RADIATION DOSE METRICS: Total DLP (mGy-cm): 407.32 FINDINGS: ANTERIOR CIRCULATION: Right internal carotid artery: Intracranial segment is patent with no significant stenosis. No aneurysm. Right middle cerebral artery: No occlusion or significant stenosis. No aneurysm. Right anterior cerebral artery: No occlusion or significant stenosis. No aneurysm. Left internal carotid artery: Intracranial segment is patent with no significant stenosis. No aneurysm. Left middle cerebral artery: No occlusion or significant stenosis. No aneurysm. Left anterior cerebral artery: No occlusion or significant stenosis. No aneurysm. POSTERIOR CIRCULATION: Right vertebral artery: No occlusion or significant stenosis. No aneurysm. Left vertebral artery: No occlusion or significant stenosis. No aneurysm. Basilar artery: No occlusion or significant stenosis. No aneurysm. Right posterior cerebral artery: No occlusion or significant stenosis. No aneurysm. Left posterior cerebral artery: No occlusion or significant stenosis. No aneurysm. Brain: No definite mass, mass effect, or midline shift. Cerebral ventricles: No ventriculomegaly. Bones/joints: Unremarkable. No acute fracture. Soft tissues: There is frontal scalp swelling and a hematoma. PROCEDURE INFORMATION: Exam: CTA Neck With Contrast Exam date and time: 01/01/2022 10:29 PM Age: 66 years old Clinical indication: Pain; Headache; Additional info: Eval dissection and aneurysms TECHNIQUE: Imaging protocol: Computed tomographic angiography of the neck with contrast. 3D rendering (Not supervised by radiologist): MIP and/or 3D reconstructed images were created by the technologist. Radiation optimization: All CT scans at this facility use at least one of these dose optimization techniques: automated exposure control; mA and/or kV adjustment per patient size (includes targeted exams where dose is matched to clinical indication); or iterative reconstruction. Contrast material: OMNIPAQUE 350; Contrast volume: 95 ml; Contrast route: INTRAVENOUS (IV); COMPARISON: CT angio headneck* [id number] 02/10/2020 3:12 PM RADIATION DOSE METRICS: Total DLP (mGy-cm): 407.32 FINDINGS: Right common carotid artery: No stenosis. No dissection or occlusion. Right internal carotid artery: No stenosis of the extracranial segment. No dissection or occlusion. Right external carotid artery: No occlusion or stenosis of the origin. Left common carotid artery: There is atherosclerotic calcification at the left carotid bifurcation which causes 56% stenosis of the ICA origin. Left internal carotid artery: No stenosis of the extracranial segment. No dissection or occlusion. Left external carotid artery: No occlusion or stenosis of the origin. Right vertebral artery: No stenosis. No dissection or occlusion. Left vertebral artery: No stenosis. No dissection or occlusion. Soft tissues: Normal. No significant soft tissue swelling. Bones/joints: Again seen is a chronic dens fracture which has healed without union, posterior subluxation, and posterior fusion wire. Lungs: Poorly defined patchy infiltrates in the left upper lobe consistent with probable pneumonia. CT/CT angio headneck* [id number] IMPRESSION: No acute vascular injury. IMPRESSION: No acute vascular injury. Chronic C2 fracture with posterior fixation. Probable left upper lobe pneumonia or possible contusion in the setting of trauma. REFERENCES: NASCET CRITERIA. The degree of stenosis in the cervical segment of the internal carotid artery is based on NASCET criteria. Normal is no stenosis. Mild is less than 50% stenosis. Moderate is 50-69% stenosis. Severe is 70% to 99% stenosis. Total occlusion is no detectable patent lumen.
[2022-01-01 18:36] LABS: Add Urine Microscopic? YES; Bilirubin Urine Neg (Negative); Blood Urine Neg (Negative); Glucose Urine UA Norm (Normal); Ketones Urine 2+ (Negative); Leukocyte Esterase Urine Negative (Negative); Nitrate Urine Positive (Negative); Protein Urine Neg (Negative); Specific Gravity, Urine 1.015 (1.005-1.030); Urine Appearance Hazy (CLEAR); Urine Color Yellow (Yellow); Urobilinogen Urine Norm (Negative); pH Urine 6 (5-7)
[2022-01-01 18:42] LABS: Add Urine Culture? Yes; Bacteria Urine 3+ /hpf; RBC Urine 0-4 /hpf (0-2); Squamous Epithelial Cell Urine 0-4 /hpf (0-5)
[2022-01-01] MEDS: morphine 4 mg/mL SDV 1 mL IVP (18:43)
--- NOTE | 2022-01-01 19:32 | PC.NURSE ---
Report from DEBRA Mayes. Pt is resting quietly at this time. Requesting 10mg Morphine. Explained to pt that she has been given a total of 8mg with the last dose given approx 30 minutes ago. Updated on plan of care.
[2022-01-01] MEDS: HYDROmorphone 1 mg/mL INJ 1 mL 0.5 MG IVP (20:04)
--- NOTE | 2022-01-01 21:41 | PC.NURSE ---
to desk, states pt wasn't able to get CT, secondary to IV being infiltrated. This was not communicated with this RN or rn relief charge. New IV will be placed for CT.
[2022-01-01] MEDS: iohexol 350 mg/mL 100 mL Btl IV (22:38)
[2022-01-01] MEDS: gabapentin 300 mg Capsule PO (22:43)
[2022-01-01] MEDS: hyDROXYzine 25 mg Capsule 50 MG PO (22:43)
--- NOTE | 2022-01-01 22:48 | PC.NURSE ---
RN at bedside to give meds. Pt stated I need to pee. Bed crawford immediately offered. Pt denied bedpan and stated I no longer have to pee. I peed myself. This RN then offered to clean pt up. Pt stated I don't want to be cleaned up. Pt refused to allow RN and to clean her. Pt stated I only peed a little.
[2022-01-02 00:13] VITALS: RESP 16
[2022-01-02] MEDS: HYDROmorphone 1 mg/mL INJ 1 mL 0.5 MG IVP (00:13)
[2022-01-02 00:17] VITALS: BP 157/86; PULSE 68; RESP 16; O2SAT 95
== END 2022-01-02 00:40 | disposition home or self-care (01) ==
PROVIDERS: Emergency Medicine; Emergency Provider Emergency Medicine; PCP Nurse Practitioner
DX: R51.9 Headache, unspecified (principal); S00.83XA Contusion of other part of head, initial encounter; Z79.4 Long term (current) use of insulin; F17.210 Nicotine dependence, cigarettes, uncomplicated; I13.0 Hypertensive heart and chronic kidney disease with heart failure and stage 1 through stage 4 chronic kidney disease, or unspecified chronic kidney disease; E11.22 Type 2 diabetes mellitus with diabetic chronic kidney disease; N18.2 Chronic kidney disease, stage 2 (mild); I50.32 Chronic diastolic (congestive) heart failure; G30.9 Alzheimer's disease, unspecified; F02.80 Dementia in other diseases classified elsewhere, unspecified severity, without behavioral disturbance, psychotic disturbance, mood disturbance, and anxiety; E78.5 Hyperlipidemia, unspecified; W19.XXXA Unspecified fall, initial encounter
CPT/HCPCS: 70450; 70486; 70496; 70498; 80053; 81001; 83690; 85025; 87077; 87086; 87186; 96365; 96372; 96375; 96376; 99285; J1170; J1200; J2270; J2765; J3475; J7040; Q9967

== ENCOUNTER 2022-02-05 15:37 | Emergency (ER) | payer OTHER, SELFPAY ==
[2022-02-05 15:51] VITALS: BP 163/114; PULSE 125; RESP 18; TEMP 36.6; O2SAT 97; BMI 23.9
--- NOTE | 2022-02-05 15:56 | W.ED.GENADLT ---
HPI - General Adult General: Chief complaint: General Medical Stated complaint: Feeding tube popped out, headache Time Seen by Provider: 02/05/22 15:56 History of Present Illness: Ms. Mendosa is a 66-year-old lady with complex past medical history including heart failure, hypertension, hyperlipidemia, diabetes, s/p G tube presenting to the emergency department due to 2 separate concerns. She reports last night the tubing from her G-tube got caught in a blanket and the G-tube came out. She depends on the G-tube for nutrition as she has issues with swallowing. She attempted to go to an appointment with Dr. Duron however while sitting waiting for the appointment she had sudden onset of headache. She does have a history of headaches though reports that this 1 is severe. Mostly starts posteriorly and radiates around to the front of her head on both sides. Hammering in nature. Mild associated light and sound sensitivity as well as nausea. Does have a history of headaches. No other specific changes in health, exacerbating, or alleviating factors identified. Onset (ago): hour(s) Location: head Severity: severe Quality: other Pain Consistency: constant Exacerbating factors: other Associated symptoms: Reports nausea Review of Systems General: Reports: 10 or more systems reviewed and unremarkable except in HPI and below GI: Reports: nausea PFSH ED PFSH: Medical History Acute esophagitis Acute hypokalemia Adrenal insufficiency Altered mental status Alzheimer disease Anemia ARDS (adult respiratory distress syndrome) Aspiration into airway Aspiration pneumonia Atrial fibrillation, new onset C. difficile diarrhea Chest pain Chronic back pain Chronic diarrhea Chronic diastolic CHF (congestive heart failure) Chronic hyponatremia CKD (chronic kidney disease), stage II Depression Diabetic gastroparesis Dysphagia Generalized anxiety disorder GERD (gastroesophageal reflux disease) Headache Hyperlipidemia Hypertension Hypothyroidism Insulin dependent type 2 diabetes mellitus Lactic acidosis Lewy body dementia Major depressive disorder, recurrent severe without psychotic features Morbid obesity PEG tube malfunction Post-traumatic stress disorder, chronic Tachycardia Surgical History H/O esophagogastroduodenoscopy H/O: hysterectomy History of bunionectomy bilateral Hx of cholecystectomy S/P percutaneous endoscopic gastrostomy (PEG) tube placement Status post colonoscopy Family History Mother Hypertension Diabetes Father Hypertension Asthma Other CAD (coronary artery disease) Cancer Denies family history of Anesthesia complication Bleeding disorder Social History Smoking and tobacco status: current every day smoker cigars Cigars smoked per week: 35 Years smoked cigars: 53 Cigar details: 1 PPD Quit status (tobacco): has tried quititng Second hand smoke exposure: Yes Smoking risk assessment/counseling performed?: No Alcohol intake: current Alcohol intake frequency: holidays/special occasions only Household members: spouse Housing: Manufactured/Mobile home Marital status: Current occupational status: retired History of recent travel: No Physical Exam Const: COMMON NORMALS: alert GENERAL APPEARANCE: cooperative and well developed HENMT: COMMON NORMALS: normocephalic and atraumatic HEAD & SCALP: normocephalic and atraumatic Eye: COMMON NORMALS: conjunctivae normal CONJUNCTIVA: Yes conjunctivae normal SCLERA: sclerae normal Neck/C-Spine: COMMON NORMALS: supple GENERAL: Yes trachea midline Resp: COMMON NORMALS: clear to auscultation bilaterally EFFORT & INSPECTION: Yes able to speak in complete sentences AUSCULTATION: clear to auscultation bilaterally Cardio: COMMON NORMALS: regular rhythm RATE: tachycardic RHYTHM: regular rhythm GI: COMMON NORMALS: Soft to palpation PALPATION: Yes Soft to palpation and No Tenderness to palpation present (GI) Extremity: GENERAL: Yes normal exam except as noted and No edema Neuro: COMMON NORMALS: moves all extremities SENSORIUM/ORIENTATION: Yes alert and No Orientation impaired Psych: COMMON NORMALS: mental status grossly normal and Normal thought process present THOUGHT PROCESS: Normal thought process present Procedures Feeding Tube Replacement Type of Tube: gastrostomy Insertion Site Prior to Procedure: clean Tube Used for Reinsertion: Magana Occitan Tube Size (F): 14 Balloon size (mL): 10 Verification of Placement: gastrografin injection Tube Secured by: tape/dressing Patient Tolerated Procedure: well Course Vital Signs: Vital signs: Vital Signs Temperature 98 F 02/05/22 15:51 Pulse Rate 113 H 02/05/22 18:30 Respiratory Rate 18 02/05/22 19:54 Blood Pressure 104/78 02/05/22 18:30 Pulse Oximetry 94 02/05/22 18:30 Oxygen Delivery Me thod 02/05/22 18:30 MDM - General Adult Medical Decision Making 66-year-old lady with complex history presenting with multiple concerns. Exam as above. Unfortunately we are unable to obtain IV access despite numerous attempts including ultrasound-guided attempts. CT head negative for acute intracranial pathology to explain headache. I do not have appropriate replacement size G-tube and unable to replace due to tract narrowing the G-tube that we do have. Catheter was placed and x-ray verified location. Discussed with surgery and patient will be seen in clinic tomorrow for further treatment. Upon reassessment patient improved. The results of ED evaluation were discussed with the patient including prescriptions and/or symptomatic cares (if applicable) including appropriate and responsible use, followup plan, and return precautions. The patient verbalized understanding and felt safe for discharge. Medical Records I reviewed the patient's medical records. Lab Data I reviewed the patient's lab results. Radiology Impressions Head CT 02/05/22 17:31 IMPRESSION: No acute intracranial abnormality. Abdomen X-Ray 02/05/22 18:58 IMPRESSION: Patent G-tube in the stomach. No contrast extravasation. Discharge Plan Discharge Patient Disposition: Home Clinical Impression: Headache, Dislodged gastrostomy tube Condition: Stable Prescriptions: No Action gabapentin 100 mg capsule 200 mg PO TID metoprolol tartrate 50 mg tablet 25 mg PO BID duloxetine 20 mg capsule,delayed release(DR/EC) 20 mg PO BID insulin aspart U-100 [Novolog Flexpen U-100 Insulin] 100 unit/mL (3 mL) insulin pen See Rx Instructions .ROUTE .COMPLEX Rx Instructions: SLIDING SCALE as needed when blood sugar is over 200 memantine [Namenda] 10 mg tablet 10 mg PO BID Qty: 180 0RF acetaminophen 325 mg tablet 650 - 975 mg PO QID PRN (Reason: Pain) levothyroxine 50 mcg Tablet 50 mcg PO DAILY@0800 Qty: 30 0RF hydrocodone-acetaminophen 5-325 mg tablet 1 tab PO Q6H PRN (Reason: pain) Qty: 20 0RF buspirone 10 mg Tablet 20 mg PO TID galantamine 4 mg Tablet 4 mg PO BID Rx Instructions: administer with AM and PM meals hydroxyzine HCl 50 mg Tablet 50 mg PO BEDTIME temazepam 7.5 mg Capsule 7.5 mg PO BEDTIME ondansetron 8 mg Tablet,Disintegrating 8 mg PO Q12H PRN (Reason: Nausea And Vomiting) TwoCal HN 0.08-2 gram-kcal/mL Liquid See Rx Instructions .ROUTE .COMPLEX Rx Instructions: 50ML/HR GASTRIC TUBE DIRECTED FOR 18 HOURS WITH 30ML WATER FLUSH QID sodium chloride 1 gram tablet 1 g PO BID metoclopramide HCl 10 mg tablet 5 mg PO QAM sucralfate 1 gram tablet 1 g PO QID Qty: 90 0RF pantoprazole 40 mg tablet,delayed release (DR/EC) 40 mg PO BID Qty: 60 0RF atorvastatin 80 mg Tablet 80 mg PO QPM lisinopril 20 mg Tablet 10 mg PO DAILY naloxone 4 mg/actuation [place],Non-Aerosol 4 mg INTRANASAL Q3M PRN (Reason: Opioid Overdose) Rx Instructions: spray 1 dose into ONE nostril; alternate nostrils w each dose until help arrives hydrocodone-acetaminophen 5-325 mg tablet 1 tab PO Q6H PRN (Reason: pain) Qty: 10 0RF Discharge Orders: Discharge ED (Routine); Ordered 02/05/22 Ordered By: Brennan Blanchard Referrals: Thu Flores FNP [Primary Care Provider] - Discharge Diet: Usual diet Discharge Activity: Limit activity as instructed Patient Instructions: How to Use and Care for Your PEG Tube (ED), Acute Headache (ED), Opioid Safety, Pain Management Activity Restrictions/Additional Instructions: Thank you for visiting the emergency department. You were seen evaluated for headache and dislodgment of your gastrostomy tube. Most likely cause of your headache is secondary to underlying headache disorder. Given the profound difficulty in obtaining IV access over multiple ED visits I recommend further discussion regarding port placement. Additionally your G-tube was replaced with a temporary Magana catheter which you should use for medications and hydration as well as trickle feeds. Please call Dr. Duron's office in the morning for follow-up and in office replacement. Return to the emergency department for anything that you are concerned about a feel needs emergency department evaluation. Coding Level of Care Code ED Senior Reactor Operator for Navid Simons Exam Comprehensive
--- NOTE | 2022-02-05 17:31 | CTR_ITS ---
PROCEDURE INFORMATION: Exam: CT Head Without Contrast Exam date and time: 02/05/2022 6:17 PM Age: 66 years old Clinical indication: Other: Headache; Additional info: Headache, severe TECHNIQUE: Imaging protocol: Computed tomography of the head without contrast. Radiation optimization: All CT scans at this facility use at least one of these dose optimization techniques: automated exposure control; mA and/or kV adjustment per patient size (includes targeted exams where dose is matched to clinical indication); or iterative reconstruction. COMPARISON: CT head wo con* [id number] 01/01/2022 4:31 PM RADIATION DOSE METRICS: Total DLP (mGy-cm): 1030.35 FINDINGS: Brain: The brain is unremarkable. There is no mass effect or significant white matter disease. There is no acute intracranial hemorrhage. Cerebral ventricles: There is no significant ventricular dilation. The basal cisterns are unremarkable. Paranasal sinuses: The paranasal sinuses are clear. Mastoid air cells: The mastoid air cells are clear. Bones/joints: The calvarium is intact. Soft tissues: The visible extracranial soft tissues are unremarkable. CT/CT head wo con* [id number] IMPRESSION: No acute intracranial abnormality.
[2022-02-05 18:06] VITALS: RESP 20
[2022-02-05] MEDS: morphine 4 mg/mL SDV 1 mL IM ×2 (18:06→19:54)
[2022-02-05 18:07] VITALS: PULSE 80; O2SAT 98
[2022-02-05 18:30] VITALS: BP 104/78; PULSE 113; O2SAT 94
--- NOTE | 2022-02-05 18:31 | PC.NURSE ---
several staff attempted and were unable to obtain IV access. IV medications ordered were not given. physician notified.
--- NOTE | 2022-02-05 18:58 | XRR_ITS ---
PROCEDURE INFORMATION: Exam: XR Abdomen Exam date and time: 02/05/2022 8:17 PM Age: 66 years old Clinical indication: Device placement; Gi device; Peg tube; Additional info: G tube replacement check with contrast TECHNIQUE: Imaging protocol: Radiologic exam of the abdomen. Views: 2 Views. Upright and supine views. COMPARISON: CT abdomen pelvis con [id number] 07/18/2021 1:57 PM FINDINGS: Tubes, catheters and devices: Gastrostomy tube in the proximal gastric body. Implanted cardiac device are stimulator device in the left upper abdomen. Gastrointestinal tract: Contrast opacification of the gastric lumen and duodenal bulb without extravasation. Nondilated bowel gas pattern. Intraperitoneal space: Normal. No free air. Bones/joints: Lumbar spondyloarthropathy changes. Severe hip joint osteoarthritis. XR/XR abdomen min 2V [id number] IMPRESSION: Patent G-tube in the stomach. No contrast extravasation.
[2022-02-05] MEDS: ketorolac 30 mg/mL INJ IM (19:46)
[2022-02-05] MEDS: ondansetron 2 mg/ML SDV 2 mL 4 MG IM (19:50)
[2022-02-05 19:54] VITALS: RESP 18
[2022-02-06] MEDS: diatrizoate meglumine 120 mL Sol PO (14:20)
== END 2022-02-05 20:31 | disposition home or self-care (01) ==
PROVIDERS: Emergency Provider Emergency Medicine; PCP Nurse Practitioner
DX: R51.9 Headache, unspecified (principal); Z43.1 Encounter for attention to gastrostomy
CPT/HCPCS: 70450; 74019; 96372; 99285; J1885; J2270; J2405

== ENCOUNTER → 2022-02-06 14:13 | Outpatient (BNVA) | payer OTHER, MEDICARE, SELFPAY | PROVIDERS: PCP Nurse Practitioner; Visit Provider Surgery | DX: T85.528A Displacement of other gastrointestinal prosthetic devices, implants and grafts, initial encounter (principal); I87.8 Other specified disorders of veins; X58.XXXA Exposure to other specified factors, initial encounter; Z78.9 Other specified health status | CPT/HCPCS: 43762; 99213 ==

== ENCOUNTER 2022-02-06 20:24 | Emergency (ER) | payer OTHER, SELFPAY ==
[2022-02-06 20:33] VITALS: BP 174/91; PULSE 101; RESP 19; TEMP 36.6; O2SAT 97; BMI 23.0
--- NOTE | 2022-02-06 21:05 | XRR_ITS ---
PROCEDURE INFORMATION: Exam: XR Right Humerus Exam date and time: 02/06/2022 9:19 PM Age: 66 years old Clinical indication: Pain; Upper arm; Right; Additional info: Fall TECHNIQUE: Imaging protocol: Radiologic exam of the Right humerus. Views: 2 or more views. COMPARISON: CR (CHEST, ) 12/26/2021 6:11 PM FINDINGS: Tubes, catheters and devices: There is a spinal cord stimulator paddle stable in position in the midthoracic spine. Bones/joints: Multilevel degenerative changes of varying severity in the visualized spine. Acute fracture of the proximal metaphysis of the right humerus.. Anterior displacement of approximately 1 shaft width and approximately 1.5 cm of override of the distal fracture fragment. Stable diffuse osteopenia of the visualized bones. No dislocation. Lungs: Visualized lungs are clear. Soft tissues: Mild soft tissue swelling around the proximal right humerus. No radiopaque foreign body. XR/[place] [id number] IMPRESSION: 1. Acute fracture of the proximal metaphysis of the right humerus.. Anterior displacement of approximately 1 shaft width and approximately 1.5 cm of override of the distal fracture fragment. 2. Mild soft tissue swelling around the proximal right humerus. 3. Incidental/nonacute findings are listed in the report.
--- NOTE | 2022-02-06 22:13 | W.ED.EXTPRO ---
HPI - Extremity Problem General: Chief complaint: Extremity Injury, Upper Stated complaint: Fell Hit head\Rt Arm and Migrane Time Seen by Provider: 02/06/22 21:40 History of Present Illness: Patient is in for arm pain. 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 She reports that her legs had given way and when she went down to the Inward Toll Operator did not have a hold of her under her arm. reports that she is very disabled and debilitated on a chronic basis. She complains of pain at the shoulder on the right side. Associated symptoms: Deny chest pain or fever(s) Review of Systems Const: Denies: fever(s) or chills Card: Denies: chest pain or palpitations Resp: Denies: dyspnea, productive cough or non-productive cough Musc: Reports: extremity pain and joint pain [facility] ED PFSH: Medical History Acute esophagitis Acute hypokalemia Adrenal insufficiency Altered mental status Alzheimer disease Anemia ARDS (adult respiratory distress syndrome) Aspiration into airway Aspiration pneumonia Atrial fibrillation, new onset C. difficile diarrhea Chest pain Chronic back pain Chronic diarrhea Chronic diastolic CHF (congestive heart failure) Chronic hyponatremia CKD (chronic kidney disease), stage II Depression Diabetic gastroparesis Dysphagia Generalized anxiety disorder GERD (gastroesophageal reflux disease) Headache Hyperlipidemia Hypertension Hypothyroidism Insulin dependent type 2 diabetes mellitus Lactic acidosis Lewy body dementia Major depressive disorder, recurrent severe without psychotic features Morbid obesity PEG tube malfunction Post-traumatic stress disorder, chronic Tachycardia Surgical History H/O esophagogastroduodenoscopy H/O: hysterectomy History of bunionectomy bilateral Hx of cholecystectomy S/P percutaneous endoscopic gastrostomy (PEG) tube placement Status post colonoscopy Family History Mother Hypertension Diabetes Father Hypertension Asthma Other CAD (coronary artery disease) Cancer Denies family history of Anesthesia complication Bleeding disorder Social History Smoking and tobacco status: current every day smoker cigars Cigars smoked per week: 35 Years smoked cigars: 53 Cigar details: 1 PPD Quit status (tobacco): has tried quititng Second hand smoke exposure: Yes Smoking risk assessment/counseling performed?: No Alcohol intake: current Alcohol intake frequency: holidays/special occasions only Household members: spouse Housing: Manufactured/Mobile home Marital status: Current occupational status: retired History of recent travel: No Physical Exam Const: OTHER: Patient is in obvious pain. She is a frail-appearing 66-year-old female. Resp: COMMON NORMALS: normal respiratory effort, No use of accessory muscles and clear to auscultation bilaterally AUSCULTATION: clear to auscultation bilaterally Cardio: COMMON NORMALS: regular rate, S1 normal heart sound present and S2 normal heart sound present RATE: regular rate HEART SOUNDS: S1 normal heart sound present and S2 normal heart sound present Extremity: NARRATIVE EXTREMITY EXAM: Difficult exam on the right upper extremity due to patient's chronic immobile state. Shirt is cut I am able to visualize the shoulder. No bruising or obvious soft tissue deformity. Patient is not moving the arm at all. Distal extremity is warm with radial and ulnar pulses palpable. Tenderness to palpation at the proximal humerus. Course Consultations: Consultation #1: Dr. Hickey at 2212- Advised of XR findings. He recommends sling and f/u with ortho. Vital Signs: Vital signs: Vital Signs Temperature 97.9 F 02/06/22 20:33 Pulse Rate 101 H 02/06/22 20:33 Respiratory Rate 18 02/06/22 22:24 Blood Pressure 174/91 02/06/22 20:33 Pulse Oximetry 97 02/06/22 20:33 Oxygen Delivery Me thod 02/06/22 20:33 MDM - Extremity (Nontraumatic) Medical Decision Making Patient is in today with right arm injury. She has chronic immobility issues. X-ray right humerus shows acute fracture of proximal metaphysis of the right humerus with anterior displacement. Consulted Dr. Hickey and he agrees the patient should be put in a sling discharged with follow-up to Ortho. Consult to Dr. Garcia for pain control. Percocet 5 mg / 325 mg 1 p.o. every 4-6 hours #12 no refills given to the patient. Discussed conservative measures at home with patient and spouse. Discussed use of sling. Discussed possible benefits and side effects of pain medication. Follow-up with orthopedics. Follow-up with primary care provider. Return to the ER for new or worsening symptoms. Patient and spouse are agreeable and wished to be discharged home at this time. Lab Data Radiology Impressions Humerus X-Ray 02/06/22 21:05 IMPRESSION: 1. Acute fracture of the proximal metaphysis of the right humerus.. Anterior displacement of approximately 1 shaft width and approximately 1.5 cm of override of the distal fracture fragment. 2. Mild soft tissue swelling around the proximal right humerus. 3. Incidental/nonacute findings are listed in the report. Discharge Plan Discharge Patient Disposition: Home Clinical Impression: Fracture, humerus closed Qualifiers: Encounter type: initial encounter Humerus Location: proximal Fracture morphology: other fracture Fracture alignment: displaced Laterality: right Qualified Code(s): S42.291A - Other displaced fracture of upper end of right humerus, initial encounter for closed fracture Condition: Stable Prescriptions: No Action gabapentin 100 mg capsule 200 mg PO TID metoprolol tartrate 50 mg tablet 25 mg PO BID duloxetine 20 mg capsule,delayed release(DR/EC) 20 mg PO BID insulin aspart U-100 [Novolog Flexpen U-100 Insulin] 100 unit/mL (3 mL) insulin pen See Rx Instructions .ROUTE .COMPLEX Rx Instructions: SLIDING SCALE as needed when blood sugar is over 200 memantine [Namenda] 10 mg tablet 10 mg PO BID Qty: 180 0RF acetaminophen 325 mg tablet 650 - 975 mg PO QID PRN (Reason: Pain) levothyroxine 50 mcg Tablet 50 mcg PO DAILY@0800 Qty: 30 0RF hydrocodone-acetaminophen 5-325 mg tablet 1 tab PO Q6H PRN (Reason: pain) Qty: 20 0RF buspirone 10 mg Tablet 20 mg PO TID galantamine 4 mg Tablet 4 mg PO BID Rx Instructions: administer with AM and PM meals hydroxyzine HCl 50 mg Tablet 50 mg PO BEDTIME temazepam 7.5 mg Capsule 7.5 mg PO BEDTIME ondansetron 8 mg Tablet,Disintegrating 8 mg PO Q12H PRN (Reason: Nausea And Vomiting) TwoCal HN 0.08-2 gram-kcal/mL Liquid See Rx Instructions .ROUTE .COMPLEX Rx Instructions: 50ML/HR GASTRIC TUBE DIRECTED FOR 18 HOURS WITH 30ML WATER FLUSH QID sodium chloride 1 gram tablet 1 g PO BID metoclopramide HCl 10 mg tablet 5 mg PO QAM sucralfate 1 gram tablet 1 g PO QID Qty: 90 0RF pantoprazole 40 mg tablet,delayed release (DR/EC) 40 mg PO BID Qty: 60 0RF atorvastatin 80 mg Tablet 80 mg PO QPM lisinopril 20 mg Tablet 10 mg PO DAILY naloxone 4 mg/actuation [place],Non-Aerosol 4 mg INTRANASAL Q3M PRN (Reason: Opioid Overdose) Rx Instructions: spray 1 dose into ONE nostril; alternate nostrils w each dose until help arrives hydrocodone-acetaminophen 5-325 mg tablet 1 tab PO Q6H PRN (Reason: pain) Qty: 10 0RF Discharge Orders: Discharge ED (Routine); Ordered 02/06/22 Ordered By: Alie Isbell Referrals: Thu Flores FNP [Primary Care Provider] - Discharge Diet: Usual diet Discharge Activity: Limit activity as instructed Patient Instructions: Fractures - Humerus Activity Restrictions/Additional Instructions: Stay in the sling. Use pain medications as prescribed as needed for pain. Rest, ice the extremity. Follow-up with orthopedics. Follow-up with primary care. Return to the ER for new or worsening symptoms. Coding Level of Care Code ED Show Card Writer for Navid Simons
[2022-02-06 22:24] VITALS: RESP 18
[2022-02-06] MEDS: morphine 4 mg/mL SDV 1 mL IM (22:24)
[2022-02-06] MEDS: ondansetron 4 MG Tablet PO (22:24)
[2022-02-06 23:20] VITALS: RESP 18
[2022-02-06] MEDS: oxyCODONE-APAP 5-325 mg Tablet 2 TAB PO (23:20)
--- NOTE | 2022-02-06 23:35 | PC.NURSE ---
Percocet 5/325mg x 2 dispensed for pain control throughout the night until can get rx filled in the a.m.
[2022-02-06 23:40] VITALS: BP 162/95; PULSE 70; RESP 16; O2SAT 93
--- NOTE | 2022-02-07 09:02 | PC.SOCIAL ---
Ortho Referral Referral sent to ortho for scheduling. Clinic to contact patient with appt date/time.
== END 2022-02-06 23:24 | disposition home or self-care (01) ==
PROVIDERS: Emergency Provider Nurse Practitioner Family; PCP Nurse Practitioner
DX: S42.291A Other displaced fracture of upper end of right humerus, initial encounter for closed fracture (principal); Z79.4 Long term (current) use of insulin; F17.210 Nicotine dependence, cigarettes, uncomplicated; G30.9 Alzheimer's disease, unspecified; F02.80 Dementia in other diseases classified elsewhere, unspecified severity, without behavioral disturbance, psychotic disturbance, mood disturbance, and anxiety; I13.0 Hypertensive heart and chronic kidney disease with heart failure and stage 1 through stage 4 chronic kidney disease, or unspecified chronic kidney disease; E11.22 Type 2 diabetes mellitus with diabetic chronic kidney disease; N18.2 Chronic kidney disease, stage 2 (mild); I50.32 Chronic diastolic (congestive) heart failure; E78.5 Hyperlipidemia, unspecified; W18.30XA Fall on same level, unspecified, initial encounter
CPT/HCPCS: 73060; 96372; 99284; J2270; Q0162; Q9963

== ENCOUNTER 2022-02-24 05:18 | Inpatient (IN) | payer OTHER, SELFPAY ==
[2022-02-24] VITALS (26 sets, daily range): BP systolic 73–146; BP diastolic 50–85; PULSE 116–148; RESP 27–32; TEMP 37.4–39.5; O2SAT 90–100; BMI 28.3
--- NOTE | 2022-02-24 05:24 | CT_ITS ---
WS: [id number] CT HEAD NONCONTRAST HISTORY: unresponsive TECHNIQUE: Contiguous axial imaging performed through the brain in 2.5 mm imaging. Bone and soft tiss ue windows. Sagittal and coronal reformats reviewed. All CT scans at [facility] use at least one of these dose optimization techniques: automated exposure control; mA and/or kV adjustment per pa tient size (includes targeted exams where dose is matched to clinical indication); or iterative recon struction. DLP: 1160.78 mGy.cm COMPARISON: 02/05/2022 No acute intracranial hemorrhage, midline shift or mass effect. Mild atrophy and mild small vessel ischemic disease. Similar to 02/05/2022. No extra-axial fluid jac ections. No midline shift. Small lacunar infarct in the RIGHT caudate head. Ventricles: Normal size with no hydrocephalus. No inferior displacement of the cerebellar tonsils. Paranasal sinuses: Mild mucoperiosteal thickening in the ethmoid air cells extending into the RIGHT f rontal ethmoid recess. Mastoid air cells: Well pneumatized. Calvarium and scalp: Skull is intact with no soft tissue edema or swelling. CT/CT head wo con* [id number] IMPRESSION: 1. No acute intracranial hemorrhage or edema. 2. Mild atrophy and small vessel ischemic disease. Remote RIGHT caudate head i nfarct.
--- NOTE | 2022-02-24 05:24 | XRR_ITS ---
PROCEDURE INFORMATION: Exam: XR Chest Exam date and time: 02/24/2022 6:00 AM Age: 67 years old Clinical indication: Device placement; Other: Ett tube, ng, central line placement; Prior surgery; Additional info: Resp failure TECHNIQUE: Imaging protocol: Radiologic exam of the chest. Views: 1 view. COMPARISON: CR (CHEST, ) 12/26/2021 6:11 PM FINDINGS: Tubes, catheters and devices: ET tube in place in expected position within the trachea. Left IJ central line in place extending into the right atrium. NG tube extends into the stomach and below the lower edge of the x-ray. Neurostimulator electrodes in place projecting over the midthoracic spine. Monitor leads project over the chest. Lungs: Subtle perihilar right mid lung atelectasis versus pneumonia. No lobar consolidation. Pleural spaces: No costophrenic angle blunting. No pneumothorax. Heart/Mediastinum: Heart size within normal limits given the portable AP technique. Vasculature: Atherosclerotic tortuosity and calcification of the thoracic aorta. Diaphragm: Right hemidiaphragm elevation. Bones/joints: No acute osseous abnormality. XR/XR chest 1V portable [id number] IMPRESSION: 1. Lines and tubes in place as described. 2. Subtle perihilar right mid lung atelectasis versus pneumonia.
--- NOTE | 2022-02-24 05:26 | ECG_ITS ---
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 Measurements Intervals [place] Rate: 116 P: 68 HI: 145 QRS: 65 QRSD: 94 T: 77 QT: 339 QTc: 471 Interpretive Statements SINUS TACHYCARDIA Compared to ECG 12/26/2021 20:17:04 Sinus rhythm no longer present Electronically Signed On 02-24-2022 19:04:54 [employer]AVE [employer]ARD [employer]SEM[employer]ER by Cecilio Julian M.D. [email or web address]
[2022-02-24 05:38] LABS: ABG PCO2 25.3 mmHg (35-45); Arterial Blood Gas Hematocrit 28.3 % (37-47); Base Excess ABG -24.6 mmol/L (-2.0-2.0); Blood Gas Allen Test Pos; Blood Gas Sample Site Femoral, right; Blood Gas Sample Type Arterial; HCO3 ABG 5.7 mmol/L (22-26); Oxygen Device VENT
[2022-02-24 05:43] LABS: ABG PH Result 6.96 (7.35-7.45)
[2022-02-24] MEDS: sodium chloride 0.9% 1,000 ML 999 ML IV ×3 (05:45→14:47)
[2022-02-24] MEDS: insulin regular-human 250 UNIT in sodium chloride 0.9% 250 ML 8.08 UNIT IV (05:50)
[2022-02-24 05:54] LABS: Hematocrit 27.9 % (37.0-47.0); Hemoglobin 8.7 g/dL (11.5-15.3); Mean Corpuscular HGB Conc 31.2 g/dL (30.0-36.0); Mean Corpuscular Volume 89.7 fl (81-99); Platelet Count 660 10^3/cmm (130-400); Red Blood Count 3.11 10^6/uL (4.1-5.3); Red Cell Distribution Width 17.5 % (12.1-15.1); White Blood Count 29.6 10^3/uL (4.0-10.0)
[2022-02-24] MEDS: insulin regular-human 100 units/1 mL 10 UNIT IVP (06:05)
--- NOTE | 2022-02-24 06:08 | ED_ITS ---
Documented by User: Chema Acosta DO 02/24/22 06:26 HPI - General Adult General: Chief complaint: General Medical Stated complaint: unresponsive, hyperglycemia Time Seen by Provider: 02/24/22 05:24 Source: EMS History of Present Illness: 67-year-old female insulin-dependent diabetic who presents unresponsive. History is taken from EMS which was evidently taken from the patient's . She was a clot 9 range. She is evidently been unconscious since around 11 PM and unresponsive since at least 430 when her tried to wake her. Her blood sugar read high in the field. Initial pressures were in the 50s systolic. She was intubated in the field she presents hypotensive, not responding, and tachycardic with a pulse. She has an IO line and has received 800 mL of fluid so far. Onset (ago): hour(s) Radiation: other Severity: severe Quality: other Relieving factors: other Associated symptoms: Reports other Treatments prior to arrival: other Review of Systems General: Reports: ROS unobtainable due to medical condition PFSH ED PFSH: Medical History Acute esophagitis Acute hypokalemia Adrenal insufficiency Altered mental status Alzheimer disease Anemia ARDS (adult respiratory distress syndrome) Aspiration into airway Aspiration pneumonia Atrial fibrillation, new onset C. difficile diarrhea Chest pain Chronic back pain Chronic diarrhea Chronic diastolic CHF (congestive heart failure) Chronic hyponatremia CKD (chronic kidney disease), stage II Depression Diabetic gastroparesis Dysphagia Generalized anxiety disorder GERD (gastroesophageal reflux disease) Headache Hyperlipidemia Hypertension Hypothyroidism Insulin dependent type 2 diabetes mellitus Lactic acidosis Lewy body dementia Major depressive disorder, recurrent severe without psychotic features Morbid obesity PEG tube malfunction Post-traumatic stress disorder, chronic Tachycardia Surgical History H/O esophagogastroduodenoscopy H/O: hysterectomy History of bunionectomy bilateral Hx of cholecystectomy S/P percutaneous endoscopic gastrostomy (PEG) tube placement Status post colonoscopy Family History Mother Hypertension Diabetes Father Hypertension Asthma Other CAD (coronary artery disease) Cancer Denies family history of Anesthesia complication Bleeding disorder Social History Smoking and tobacco status: current every day smoker cigars Cigars smoked per week: 35 Years smoked cigars: 53 Cigar details: 1 PPD Quit status (tobacco): has tried quititng Second hand smoke exposure: Yes Smoking risk assessment/counseling performed?: No Alcohol intake: current Alcohol intake frequency: holidays/special occasions only Household members: spouse Housing: Manufactured/Mobile home Marital status: Current occupational status: retired History of recent travel: No Physical Exam Const: GENERAL APPEARANCE: ill appearing ORIENTATION/CONSCIOUSNESS: Yes Other orientation findings (Unresponsive) HENMT: COMMON NORMALS: normocephalic, atraumatic and Normal external nose pre sent HEAD & SCALP: normocephalic and atraumatic FACE & SINUS: face symmetric NOSE: Normal external nose present Eye: PUPIL: Yes Dilated pupils and Yes Fixed pupils Neck/C-Spine: GENERAL: Yes trachea midline Chest: CHEST: Yes Symmetrical chest wall rise Resp: EFFORT & INSPECTION: Yes other (Present and equal with bag valve ventilation) AUSCULTATION: diminished lung sounds Cardio: COMMON NORMALS: regular rhythm RATE: tachycardic RHYTHM: regular rhythm GI: COMMON NORMALS: Soft to palpation PALPATION: Yes Soft to palpation OTHER: PEG tube in place Neuro: NERI COMA SCALE: document GCS findings Neri coma scale eye opening: None Neri coma scale verbal response: None Neri coma scale motor response: None [place] coma scale total score: 3 Procedures Central Line Placement Left IJ: Time Out Performed: No Patient Placed on Monitor/Pulse Ox: Yes MD Prep: mask, gown and gloves Central Line Prep: Chlorhexidine scrub Amount of anesthesia used (mL): 0 Ultrasound Used for Placement: Yes Central Line Lumen Inserted: triple Post Procedure: sutured in place, good blood return, all ports aspirated, flushed, capped and sterile dressing applied Post Procedure X-Ray: tip of catheter in good position and no pneumothorax seen Patient Tolerated Procedure: well and no complications Complications: none Course Vital Signs: Vital signs: Vital Signs Temperature 99.3 F 02/24/22 08:18 Pulse Rate 119 H 02/24/22 05:51 Respiratory Rate 29 H 02/24/22 07:41 Blood Pressure 101/65 02/24/22 05:51 Pulse Oximetry 94 02/24/22 05:23 Oxygen Delivery Me thod 02/24/22 05:51 Fraction of Inspir ed Oxygen 40 02/24/22 07:41 MDM - General Adult Medical Decision Making 67-year-old female with a critically high blood glucose and critically low blood pressure. She is unresponsive. She is intubated. She is not showing signs of responsiveness other than a gag reflex on placement of NG tube. Her pupils are fixed and dilated. All laboratory is pending at this point. ABG shows a pH of 6.96, with a bicarbonate of 5.7. Her PCO2 is 25 with a PO2 of 480 on the vent. She is through her second liter now. 3 L have been ordered. Insulin drip is hanging. We have Levophed hanging as well. She has a central line in the left neck with good blood return. Position is good of the central line, ET tube, and OG tube on chest x-ray. Chest x-ray is free of significant dental trait although there is slight infiltrate in the right middle lobe. Head CT is pending. Other laboratory is still pending. Lab Data 02/24/22 05:45 02/24/22 05:45 Radiology Impressions Chest X-Ray 02/24/22 05:24 IMPRESSION: 1. Lines and tubes in place as described. 2. Subtle perihilar right mid lung atelectasis versus pneumonia. Head CT 02/24/22 05:24 IMPRESSION: 1. No acute intracranial hemorrhage or edema. 2. Mild atrophy and small vessel ischemic disease. Remote RIGHT caudate head infarct. Ankle X-Ray 02/24/22 09:16 IMPRESSION: No fractures or dislocations of the right ankle. Hip/Pelvis X-Ray 02/24/22 09:16 IMPRESSION: 1. No fractures or dislocations of the right hip. 2. Normal motion with internal/external rotation. Knee X-Ray 02/24/22 09:16 IMPRESSION: No fractures or dislocations of the right knee. Moderate chronic degenerative changes as noted in the medial and patellofemoral compartments. Laboratory Results WBC 29.6 10^3/uL (4.0-10.0) H 02/24/22 05:45 RBC 3.11 10^6/uL (4.1-5.3) L 02/24/22 05:45 Hgb 8.7 g/dL (11.5-15.3) L 02/24/22 05:45 Hct 27.9 % (37.0-47.0) L 02/24/22 05:45 MCV 89.7 fl (81-99) 02/24/22 05:45 MCH 28.0 pg (28.0-34.0) 02/24/22 05:45 MCHC 31.2 g/dL (30.0-36.0) 02/24/22 05:45 RDW 17.5 % (12.1-15.1) H 02/24/22 05:45 Plt Count 660 10^3/cmm (130-400) H 02/24/22 05:45 MPV 10.0 fL (7.4-10.4) 02/24/22 05:45 Lymph % (Auto) Not Reportable 02/24/22 05:45 [place] % (Auto) Not Reportable 02/24/22 05:45 Lymph # (Auto) Not Reportable 02/24/22 05:45 [place] # (Auto) Not Reportable 02/24/22 05:45 Total Counted 100 (0-100) 02/24/22 05:45 Atypical Lymphs % 1.0 % (0-5) 02/24/22 05:45 Absolute Neutrophils 25.5 10^3/cmm (1.4-6.5) H 02/24/22 05:45 Segmented Neutrophils 64 % 02/24/22 05:45 Abs Segm Neuts (Man) 18.9 10/cmm (1.6-7.1) H 02/24/22 05:45 Band Neutrophils 22.0 % 02/24/22 05:45 Abs Band Neuts (Man) 6.5 10^3/cmm (0.0-1.2) H 02/24/22 05:45 Absolute Lymphocytes 2.1 10^3/cmm (1.2-3.4) 02/24/22 05:45 Lymphocytes (Manual) 6 % 02/24/22 05:45 Monocytes (Manual) 3.0 % 02/24/22 05:45 Absolute Monocytes 0.9 10^3/cmm (0.1-0.6) H 02/24/22 05:45 Eosinophils (Manual) 0 % 02/24/22 05:45 Absolute Eosinophils 0.0 10^3/cmm (0.0-0.7) 02/24/22 05:45 Basophils (Manual) 0.0 % 02/24/22 05:45 Absolute Basophils 0.0 10^3/cmm (0.0-0.2) 02/24/22 05:45 Metamyelocytes 2.0 % 02/24/22 05:45 Myelocytes 2.0 % 02/24/22 05:45 Nucleated RBCs 0.0 /100WBC (0-1) 02/24/22 05:45 Platelet Estimate Increased (Normal) H 02/24/22 05:45 Anisocytosis 1+ H 02/24/22 05:45 PT 20.10 SECONDS (12.1-14.9) H 02/24/22 05:45 INR 1.68 (0.8-1.2) H 02/24/22 05:45 APTT 47.1 SECONDS (23.9-36.7) H 02/24/22 05:45 Specimen Type Arterial 02/24/22 05:24 Sample Site Femoral, right 02/24/22 05:24 ABG pH 6.96 (7.35-7.45) L* 02/24/22 05:24 ABG pCO2 25.3 mmHg (35-45) L 02/24/22 05:24 ABG pO2 482.0 mmHg (80.0-100.0) H 02/24/22 05:24 ABG HCO3 5.7 mmol/L (22-26) L 02/24/22 05:24 ABG Base Excess -24.6 mmol/L (-2.0-2.0) L 02/24/22 05:24 Jose L Test Pos 02/24/22 05:24 Hematocrit 28.3 % (37-47) L 02/24/22 05:24 O2 Delivery Device Vent 02/24/22 05:24 FiO2 100.0 % 02/24/22 05:24 PEEP 5.0 cmH20 02/24/22 05:24 Geophysical Prospecting Surveyor ID [email or web address] 02/24/22 05:24 Sodium 127 mmol/L (136-145) L 02/24/22 07:14 Potassium 2.7 mmol/L (3.5-5.1) L* D 02/24/22 07:14 Chloride 100 mmol/L (98-107) 02/24/22 07:14 Carbon Dioxide 11 mmol/L (22-29) L 02/24/22 07:14 Anion Gap 18.7 (5-19) 02/24/22 07:14 BUN 64 mg/dL (8-23) H 02/24/22 07:14 Creatinine 1.5 mg/dL (0.5-0.9) H 02/24/22 07:14 GFR Calculation 34.5 mL/min (90-130) L 02/24/22 07:14 Glucose 463 mg/dL (65-115) H 02/24/22 07:14 POC Glucose > 600 mg/dL (70-110) H* 02/24/22 06:56 Calculated Osmolality 303 mOsm/kg (285-295) H 02/24/22 07:14 Lactate 10.3 mmol/L (0.5-2.2) H* 02/24/22 05:45 Calcium 8.3 mg/dL (8.5-10.5) L 02/24/22 07:14 Magnesium 3.5 mg/dL (1.7-2.3) H 02/24/22 05:45 Total Bilirubin 0.3 mg/dL (0.15-1.2) 02/24/22 05:45 AST 141 U/L (0-32) H 02/24/22 05:45 ALT 87 U/L (0-33) H 02/24/22 05:45 Alkaline Phosphatase 197 U/L (35-105) H 02/24/22 05:45 C-Reactive Protein 265.3 mg/L (0.0-4.9) H 02/24/22 05:45 Total Protein 5.5 g/dL (6.6-8.7) L 02/24/22 05:45 Albumin 2.1 g/dL (3.5-5.2) L 02/24/22 05:45 Globulin 3.4 g/dL (1.3-4.6) 02/24/22 05:45 Urine Color Brown (Yellow) 02/24/22 05:38 Urine Appearance Cloudy (CLEAR) A 02/24/22 05:38 Urine pH 5 (5-7) 02/24/22 05:38 Ur Specific [place] 1.025 (1.005-1.030) 02/24/22 05:38 Urine Protein 1+ (Negative) H 02/24/22 05:38 Urine Glucose (UA) 1+ (Normal) H 02/24/22 05:38 Urine Ketones Negative (Negative) 02/24/22 05:38 Urine Blood 3+ (Negative) H 02/24/22 05:38 Urine Nitrate Negative (Negative) 02/24/22 05:38 Urine Bilirubin Neg (Negative) 02/24/22 05:38 Urine Urobilinogen Norm mg/dL (Negative) 02/24/22 05:38 Ur Leukocyte Esterase 2+ (Negative) H 02/24/22 05:38 Urine RBC Too numerous to cnt /hpf (0-2) H 02/24/22 05:38 Urine WBC Too numerous to cnt /hpf (0-5) H 02/24/22 05:38 Ur Squamous Epith Cells 0-4 /hpf (0-5) H 02/24/22 05:38 Amorphous Sediment Not Reportable 02/24/22 05:38 Urine Bacteria 3+ /hpf (NONE) H 02/24/22 05:38 Ethyl Alcohol < 10 mg/dL (0-10) 02/24/22 05:45 Serum Ketones Negative (Negative) 02/24/22 05:45 Blood Type O Positive 02/24/22 06:13 Rho(D) Type Positive 02/24/22 06:13 Antibody Screen Negative 02/24/22 06:13 Critical Care Time Critical Care Time: Critical Care Time: Yes Total Critical Care Time: 45 Attestation: This case had a high probability of a clinically significant, sudden, or life threatening deterioration of this patient's condition which required my full and direct attention, intervention and personal management. Time is independent of any procedures performed Discharge Plan Discharge Patient Disposition: Admitted As Inpatient Admit Provider: Syed Miller Clinical Impression: Shock circulatory, DKA (diabetic ketoacidosis), Respiratory failure, Acute pyelonephritis Condition: Stable Sign Out Sign Out Data: Patient Sign Out occurred on 02/24/22 at 06:38. Patient's care was discussed, and care was transferred from to Darek Barahona DO. Coding Level of Care Code ED Gas Meter Repairer for Chg Fwd Exam Comprehensive Documented by User: Darek Barahona DO 02/24/22 09:52 HPI - General Adult General: Chief complaint: General Medical Stated complaint: unresponsive, hyperglycemia Time Seen by Provider: 02/24/22 05:24 PFSH ED PFSH: Medical History Acute esophagitis Acute hypokalemia Adrenal insufficiency Altered mental status Alzheimer disease Anemia ARDS (adult respiratory distress syndrome) Aspiration into airway Aspiration pneumonia Atrial fibrillation, new onset C. difficile diarrhea Chest pain Chronic back pain Chronic diarrhea Chronic diastolic CHF (congestive heart failure) Chronic hyponatremia CKD (chronic kidney disease), stage II Depression Diabetic gastroparesis Dysphagia Generalized anxiety disorder GERD (gastroesophageal reflux disease) Headache Hyperlipidemia Hypertension Hypothyroidism Insulin dependent type 2 diabetes mellitus Lactic acidosis Lewy body dementia Major depressive disorder, recurrent severe without psychotic features Morbid obesity PEG tube malfunction Post-traumatic stress disorder, chronic Tachycardia Surgical History H/O esophagogastroduodenoscopy H/O: hysterectomy History of bunionectomy bilateral Hx of cholecystectomy S/P percutaneous endoscopic gastrostomy (PEG) tube placement Status post colonoscopy Family History Mother Hypertension Diabetes Father Hypertension Asthma Other CAD (coronary artery disease) Cancer Denies family history of Anesthesia complication Bleeding disorder Social History Smoking and tobacco status: current every day smoker cigars Cigars smoked per week: 35 Years smoked cigars: 53 Cigar details: 1 PPD Quit status (tobacco): has tried quititng Second hand smoke exposure: Yes Smoking risk assessment/counseling performed?: No Alcohol intake: current Alcohol intake frequency: holidays/special occasions only Household members: spouse Housing: Manufactured/Mobile home Marital status: Current occupational status: retired History of recent travel: No Physical Exam Neuro: NERI COMA SCALE: document GCS findings Neri coma scale total score: 3 Course Vital Signs: Vital signs: Vital Signs Temperature 99.3 F 02/24/22 08:18 Pulse Rate 119 H 02/24/22 05:51 Respiratory Rate 29 H 02/24/22 07:41 Blood Pressure 101/65 02/24/22 05:51 Pulse Oximetry 94 02/24/22 05:23 Oxygen Delivery Me thod 02/24/22 05:51 Fraction of Inspir ed Oxygen 40 02/24/22 07:41 MDM - General Adult Medical Decision Making 67-year-old female with a critically high blood glucose and critically low blood pressure. She is unresponsive. She is intubated. She is not showing signs of responsiveness other than a gag reflex on placement of NG tube. Her pupils are fixed and dilated. All laboratory is pending at this point. ABG shows a pH of 6.96, with a bicarbonate of 5.7. Her PCO2 is 25 with a PO2 of 480 on the vent. She is through her second liter now. 3 L have been ordered. Insulin drip is hanging. We have Levophed hanging as well. She has a central line in the left neck with good blood return. Position is good of the central line, ET tube, and OG tube on chest x-ray. Chest x-ray is free of significant dental trait although there is slight infiltrate in the right middle lobe. Head CT is pending. Other laboratory is still pending. Care assumed at change of shift DKA with cystitis CT renal stone stone protocol pending she has no history of nephrolithiasis. CT of the head negative. Discussed with hospitalist orders written Medical Records I reviewed the patient's medical records. Lab Data I reviewed the patient's lab results. 02/24/22 05:45 02/24/22 05:45 Radiology Impressions Chest X-Ray 02/24/22 05:24 IMPRESSION: 1. Lines and tubes in place as described. 2. Subtle perihilar right mid lung atelectasis versus pneumonia. Head CT 02/24/22 05:24 IMPRESSION: 1. No acute intracranial hemorrhage or edema. 2. Mild atrophy and small vessel ischemic disease. Remote RIGHT caudate head infarct. Ankle X-Ray 02/24/22 09:16 IMPRESSION: No fractures or dislocations of the right ankle. Hip/Pelvis X-Ray 02/24/22 09:16 IMPRESSION: 1. No fractures or dislocations of the right hip. 2. Normal motion with internal/external rotation. Knee X-Ray 02/24/22 09:16 IMPRESSION: No fractures or dislocations of the right knee. Moderate chronic degenerative changes as noted in the medial and patellofemoral compartments. Laboratory Results WBC 29.6 10^3/uL (4.0-10.0) H 02/24/22 05:45 RBC 3.11 10^6/uL (4.1-5.3) L 02/24/22 05:45 Hgb 8.7 g/dL (11.5-15.3) L 02/24/22 05:45 Hct 27.9 % (37.0-47.0) L 02/24/22 05:45 MCV 89.7 fl (81-99) 02/24/22 05:45 MCH 28.0 pg (28.0-34.0) 02/24/22 05:45 MCHC 31.2 g/dL (30.0-36.0) 02/24/22 05:45 RDW 17.5 % (12.1-15.1) H 02/24/22 05:45 Plt Count 660 10^3/cmm (130-400) H 02/24/22 05:45 MPV 10.0 fL (7.4-10.4) 02/24/22 05:45 Lymph % (Auto) Not Reportable 02/24/22 05:45 [place] % (Auto) Not Reportable 02/24/22 05:45 Lymph # (Auto) Not Reportable 02/24/22 05:45 [place] # (Auto) Not Reportable 02/24/22 05:45 Total Counted 100 (0-100) 02/24/22 05:45 Atypical Lymphs % 1.0 % (0-5) 02/24/22 05:45 Absolute Neutrophils 25.5 10^3/cmm (1.4-6.5) H 02/24/22 05:45 Segmented Neutrophils 64 % 02/24/22 05:45 Abs Segm Neuts (Man) 18.9 10/cmm (1.6-7.1) H 02/24/22 05:45 Band Neutrophils 22.0 % 02/24/22 05:45 Abs Band Neuts (Man) 6.5 10^3/cmm (0.0-1.2) H 02/24/22 05:45 Absolute Lymphocytes 2.1 10^3/cmm (1.2-3.4) 02/24/22 05:45 Lymphocytes (Manual) 6 % 02/24/22 05:45 Monocytes (Manual) 3.0 % 02/24/22 05:45 Absolute Monocytes 0.9 10^3/cmm (0.1-0.6) H 02/24/22 05:45 Eosinophils (Manual) 0 % 02/24/22 05:45 Absolute Eosinophils 0.0 10^3/cmm (0.0-0.7) 02/24/22 05:45 Basophils (Manual) 0.0 % 02/24/22 05:45 Absolute Basophils 0.0 10^3/cmm (0.0-0.2) 02/24/22 05:45 Metamyelocytes 2.0 % 02/24/22 05:45 Myelocytes 2.0 % 02/24/22 05:45 Nucleated RBCs 0.0 /100WBC (0-1) 02/24/22 05:45 Platelet Estimate Increased (Normal) H 02/24/22 05:45 Anisocytosis 1+ H 02/24/22 05:45 PT 20.10 SECONDS (12.1-14.9) H 02/24/22 05:45 INR 1.68 (0.8-1.2) H 02/24/22 05:45 APTT 47.1 SECONDS (23.9-36.7) H 02/24/22 05:45 Specimen Type Arterial 02/24/22 05:24 Sample Site Femoral, right 02/24/22 05:24 ABG pH 6.96 (7.35-7.45) L* 02/24/22 05:24 ABG pCO2 25.3 mmHg (35-45) L 02/24/22 05:24 ABG pO2 482.0 mmHg (80.0-100.0) H 02/24/22 05:24 ABG HCO3 5.7 mmol/L (22-26) L 02/24/22 05:24 ABG Base Excess -24.6 mmol/L (-2.0-2.0) L 02/24/22 05:24 Jose L Test Pos 02/24/22 05:24 Hematocrit 28.3 % (37-47) L 02/24/22 05:24 O2 Delivery Device Vent 02/24/22 05:24 FiO2 100.0 % 02/24/22 05:24 PEEP 5.0 cmH20 02/24/22 05:24 Geophysical Prospecting Surveyor ID [email or web address] 02/24/22 05:24 Sodium 127 mmol/L (136-145) L 02/24/22 07:14 Potassium 2.7 mmol/L (3.5-5.1) L* D 02/24/22 07:14 Chloride 100 mmol/L (98-107) 02/24/22 07:14 Carbon Dioxide 11 mmol/L (22-29) L 02/24/22 07:14 Anion Gap 18.7 (5-19) 02/24/22 07:14 BUN 64 mg/dL (8-23) H 02/24/22 07:14 Creatinine 1.5 mg/dL (0.5-0.9) H 02/24/22 07:14 GFR Calculation 34.5 mL/min (90-130) L 02/24/22 07:14 Glucose 463 mg/dL (65-115) H 02/24/22 07:14 POC Glucose > 600 mg/dL (70-110) H* 02/24/22 06:56 Calculated Osmolality 303 mOsm/kg (285-295) H 02/24/22 07:14 Lactate 10.3 mmol/L (0.5-2.2) H* 02/24/22 05:45 Calcium 8.3 mg/dL (8.5-10.5) L 02/24/22 07:14 Magnesium 3.5 mg/dL (1.7-2.3) H 02/24/22 05:45 Total Bilirubin 0.3 mg/dL (0.15-1.2) 02/24/22 05:45 AST 141 U/L (0-32) H 02/24/22 05:45 ALT 87 U/L (0-33) H 02/24/22 05:45 Alkaline Phosphatase 197 U/L (35-105) H 02/24/22 05:45 C-Reactive Protein 265.3 mg/L (0.0-4.9) H 02/24/22 05:45 Total Protein 5.5 g/dL (6.6-8.7) L 02/24/22 05:45 Albumin 2.1 g/dL (3.5-5.2) L 02/24/22 05:45 Globulin 3.4 g/dL (1.3-4.6) 02/24/22 05:45 Urine Color Brown (Yellow) 02/24/22 05:38 Urine Appearance Cloudy (CLEAR) A 02/24/22 05:38 Urine pH 5 (5-7) 02/24/22 05:38 Ur Specific [place] 1.025 (1.005-1.030) 02/24/22 05:38 Urine Protein 1+ (Negative) H 02/24/22 05:38 Urine Glucose (UA) 1+ (Normal) H 02/24/22 05:38 Urine Ketones Negative (Negative) 02/24/22 05:38 Urine Blood 3+ (Negative) H 02/24/22 05:38 Urine Nitrate Negative (Negative) 02/24/22 05:38 Urine Bilirubin Neg (Negative) 02/24/22 05:38 Urine Urobilinogen Norm mg/dL (Negative) 02/24/22 05:38 Ur Leukocyte Esterase 2+ (Negative) H 02/24/22 05:38 Urine RBC Too numerous to cnt /hpf (0-2) H 02/24/22 05:38 Urine WBC Too numerous to cnt /hpf (0-5) H 02/24/22 05:38 Ur Squamous Epith Cells 0-4 /hpf (0-5) H 02/24/22 05:38 Amorphous Sediment Not Reportable 02/24/22 05:38 Urine Bacteria 3+ /hpf (NONE) H 02/24/22 05:38 Ethyl Alcohol < 10 mg/dL (0-10) 02/24/22 05:45 Serum Ketones Negative (Negative) 02/24/22 05:45 Blood Type O Positive 02/24/22 06:13 Rho(D) Type Positive 02/24/22 06:13 Antibody Screen Negative 02/24/22 06:13 Discharge Plan Discharge Patient Disposition: Admitted As Inpatient Admit Provider: Syed Miller Clinical Impression: Shock circulatory, DKA (diabetic ketoacidosis), Respiratory failure, Acute pyelonephritis Condition: Stable Sign Out Sign Out Data: Patient Sign Out occurred on 02/24/22 at 06:38. Patient's care was discussed, and care was transferred from to Darek Barahona DO. Coding Level of Care Code ED Gas Meter Repairer for g Fwd Exam Comprehensive
[2022-02-24 06:09] LABS: INR 1.68 (0.8-1.2)
[2022-02-24] MEDS: sodium bicarbonate 8.4% 1 mEq/mL 50mL Syr 50 MEQ IVP ×2 (06:09→06:12)
[2022-02-24 06:10] LABS: Partial Thromboplastin Time 47.1 SECONDS (23.9-36.7)
[2022-02-24 06:20] LABS: Specific Gravity, Urine 1.025 (1.005-1.030); Urine Appearance Cloudy (CLEAR); Urine Color Brown (Yellow); pH Urine 5 (5-7)
[2022-02-24 06:20] LABS: Alanine Aminotransferase 87 U/L (0-33); Albumin Level 2.1 g/dL (3.5-5.2); Alkaline Phosphatase 197 U/L (35-105); Anion Gap 26.1 (5-19); Aspartate Amino Transferase 141 U/L (0-32); Blood Urea Nitrogen 63 mg/dL (8-23); C Reactive Protein 265.3 mg/L (0.0-4.9); Calcium 9.1 mg/dL (8.5-10.5); Chloride 95 mmol/L (98-107); Globulin 3.4 g/dL (1.3-4.6); Glomerular Filtration Rate 29.9 mL/min (90-130); Magnesium 3.5 mg/dL (1.7-2.3); Osmolality Calculated 307 mOsm/kg (285-295); Potassium 5.1 mmol/L (3.5-5.1); Sodium 123 mmol/L (136-145); Total Bilirubin 0.3 mg/dL (0.15-1.2); Total Protein 5.5 g/dL (6.6-8.7)
[2022-02-24 06:21] LABS: Blood Urine 3+ (Negative); Glucose Urine UA 1+ (Normal); Ketones Urine Negative (Negative); Protein Urine 1+ (Negative)
[2022-02-24 06:22] LABS: Alcohol Level < 10 mg/dL (0-10)
[2022-02-24 06:22] LABS: Add Urine Microscopic? YES; Bilirubin Urine Neg (Negative); Leukocyte Esterase Urine 2+ (Negative); Nitrate Urine Negative (Negative); RBC Urine TOO NUMEROUS TO CNT /hpf (0-2); Urobilinogen Urine Norm (Negative)
[2022-02-24 06:23] LABS: Add Urine Culture? Yes; Bacteria Urine 3+ /hpf; Squamous Epithelial Cell Urine 0-4 /hpf (0-5); WBC Urine TOO NUMEROUS TO CNT /hpf (0-5)
[2022-02-24 06:23] LABS: Carbon Dioxide 7 mmol/L (22-29); Glucose 686 mg/dL (65-115); Lactate (Lactic Acid level) 10.3 mmol/L (0.5-2.2)
[2022-02-24 06:34] LABS: Ketone (Acetest) Serum Negative (Negative)
[2022-02-24] MEDS: piperacillin-tazobactam 4.5 GM in sodium chloride 0.9% (plus) 50 ML IV (06:34)
[2022-02-24] MEDS: vancomycin 1,500 MG/300 ML PIGGYBACK 200 MG IV (06:48)
[2022-02-24 06:52] LABS: Slide Review Slide Review Perform
[2022-02-24 06:53] LABS: Absolute Neutrophil 25.5 10^3/cmm (1.4-6.5); Absolute Segmented Neutrophil 18.9 10/cmm (1.6-7.1); Band Neutrophils Absolute 6.5 10^3/cmm (0.0-1.2); Eosinophils 0 %; Lymphocytes 6 %; Lymphocytes Absolute 2.1 10^3/cmm (1.2-3.4); Monocytes Absolute 0.9 10^3/cmm (0.1-0.6); Platelet Estimate Increased (Normal); Segmented Neutrophils 64 %; Total Cells Counted 100 (0-100)
[2022-02-24 06:54] LABS: Anisocytosis 1+
[2022-02-24 07:00] LABS: Glucose Point of Care > 600 mg/dL (70-110)
[2022-02-24] MEDS: acetaminophen 1,000 MG/100 ML PIGGYBACK 400 MG IV (07:17)
[2022-02-24 07:53] LABS: Anion Gap 18.7 (5-19); Blood Urea Nitrogen 64 mg/dL (8-23); Calcium 8.3 mg/dL (8.5-10.5); Carbon Dioxide 11 mmol/L (22-29); Chloride 100 mmol/L (98-107); Glomerular Filtration Rate 34.5 mL/min (90-130); Glucose 463 mg/dL (65-115); Osmolality Calculated 303 mOsm/kg (285-295); Sodium 127 mmol/L (136-145)
[2022-02-24 07:59] LABS: Potassium 2.7 mmol/L (3.5-5.1)
--- NOTE | 2022-02-24 08:19 | CT_ITS ---
WS: [id number] CT ABDOMEN AND PELVIS NONCONTRAST HISTORY: flank pain TECHNIQUE: Imaging performed through the abdomen and pelvis. Coronal and sagittal reformats are submi tted. All CT scans at [facility] use at least one of these dose optimization techniques: auto mated exposure control; mA and/or kV adjustment per patient size (includes targeted exams where dose is matched to clinical indication); or iterative reconstruction. DLP: 637.26 mGy.cm COMPARISON: 07/18/2021 Lower thorax: New bilateral moderate patchy opacifications at the lung bases. More focal atelectasis and consolidation at the RIGHT lung base. Heart is slightly enlarged. Nasogastric tube is present wit h tip extending towards the antrum. There is also a PEG tube present. Liver: Significant artifact through the abdomen by patient's arms being placed at the site. There is artifact through the liver. There is a hyperdense tubular structure along the anterior surface of the liver with associated air. There appears to be sideholes present. This was not present on the most r ecent studies. There is air branching to the liver consistent with pneumobilia. This does not appear to be portal vein near. Gallbladder: Prior cholecystectomy. Pancreas: Atrophied pancreas. Spleen: Small spleen. Adrenal glands: Bilateral adrenal adenomas. Right kidney: Moderate perinephric stranding. Mild dilatation of the renal pelvis. No obstructing sto ne identified. Left kidney: Moderate perinephric stranding. Very minimal dilatation of the renal pelvis. No obstruct ing stone identified. Aorta: Extensive atherosclerotic plaque within the aorta. No aneurysm. No definitely enlarged lymph nodes. Small amount of free fluid in the pelvis. Moderate amount of free air noted within the peritoneal cavity. There is free air adjacent to the sto mach and along the LEFT paracolic gutter. There are a few small foci of free air between the loops of the descending colon. Small amount of free air anterior to the liver. GI tract: There is a PEG tube present in the stomach. There is also a nasogastric tube present. Numer ous areas suspicious for pneumatosis throughout the colon. Pneumatosis involving both the ascending a nd descending colon. Marked wall thickening involving the sigmoid with constipation. Abdominal wall: Negative. No hernia. Pelvis: Urinary bladder is nondistended. There is a Magana catheter in place. Osseous structures: Thoracolumbar scoliosis. L5 anterolisthesis by 6 mm. Degenerative changes at the hips. Osteopenia. CT/CT kidney stone [id number] IMPRESSION: 1. Moderate amount of free air throughout the peritoneal cavity. 2. Changes of pneumatosis involving a large portion of the colon. 3. There is a PEG tube and nasogastric tube present. There is a small amount o f free air adjacent to the fundus of the stomach which could be a site of perfo ration. Perforation and free air may be related to ischemic bowel. 4. Distal colonic diverticulosis with wall thickening. 5. Pneumobilia. 6. Bilateral perinephric stranding. No renal calcification or obstruction iden tified. 7. Marked wall thickening involving the sigmoid and a small amount of free flu id and inflammation in the pelvis. 8. Magana catheter in good position. 9. Bilateral lower lobe opacifications pneumonia versus atelectasis. 10. Suspect tubular foreign body anterior to the RIGHT lobe of the liver. Not present on the prior study. May be retained catheter from a prior procedure. Notified Darek Barahona DO at 02/24/2022 10:19 AM.
[2022-02-24] MEDS: acetaminophen 650 mg/20.3 mL UDC PO (08:24)
--- NOTE | 2022-02-24 08:24 | PC.NURSE ---
Discussed insulin rate change with Dr Barahona. Dr Barahona gave this nurse a verbal order to decrease rate from 8units/hr to 6units/hr.
[2022-02-24] MEDS: potassium chloride oral liq 20 mEq/15 mL UDC 40 MEQ OG-TUBE (09:00)
[2022-02-24] MEDS: potassium chloride premix 100 ML 25 MEQ IV ×2 (09:05→13:28)
[2022-02-24 09:16] LABS: Glucose Point of Care 405 mg/dL (70-110)
--- NOTE | 2022-02-24 09:16 | XR_ITS ---
WS: [id number] EXAMINATION: XR knee RT 1-2V [id number] DATE: 02/24/2022 9:21 AM CLINICAL HISTORY: Injury to the right knee after a fall TECHNIQUE: 3 views of the right knee were obtained. COMPARISON: None X-RAY FINDINGS: There are no fractures or dislocations. No degenerative changes. There is mild media l and patellofemoral compartment narrowing. There is mild medial soft tissue swelling. No suprapatell ar joint effusion. XR/XR knee RT 3V* [id number] IMPRESSION: No fractures or dislocations of the right knee. Moderate chronic degenerative changes as noted in the medial and patellofemoral compartments.
--- NOTE | 2022-02-24 09:16 | XR_ITS ---
WS: [id number] EXAMINATION: XR ankle RT min 3V* [id number] DATE: 02/24/2022 9:21 AM CLINICAL HISTORY: fall, bruising TECHNIQUE: 3 views of the right ankle were obtained. COMPARISON: 02/06/2022 X-RAY FINDINGS: There are numerous small ossicles near the distal fibular cortex along with one or 2 near the media l malleolus. These are unchanged from previous study. Ankle mortise is intact. No sign of acute her e or joint effusion. XR/XR ankle RT min 3V* [id number] IMPRESSION: No fractures or dislocations of the right ankle.
--- NOTE | 2022-02-24 09:16 | XR_ITS ---
WS: [id number] EXAMINATION: XR hip RT 2-3V wo/w pel* [id number] DATE: 02/24/2022 9:21 AM CLINICAL HISTORY: Trauma from a fall with right hip pain 2 days ago TECHNIQUE: Frontal internal/external rotation views of the right hip were obtained. COMPARISON: None X-RAY FINDINGS: There are no fractures or dislocations. Normal motion with internal/external rotation is present. Moderate degenerative changes with mild hip joint space narrowing.. XR/XR hip RT 2-3V wo/w pel* [id number] IMPRESSION: 1. No fractures or dislocations of the right hip. 2. Normal motion with internal/external rotation.
--- NOTE | 2022-02-24 09:20 | PM.HP ---
Providers/Chief Complaint Admitting Physician: Syed Miller MD Primary Care Provider: KATRINA Cash Chief Complaint: unresponsive, hyperglycemia History of Present Illness Ingris Mendosa is a 67 year old female with underlying dementia who was out at [employer] with her . He reports she was in her usual state of health, with significant memory difficulties and weakness until 1030 yesterday morning. He thought she was just tired, as she was sleeping quite a bit and not quite as interactive. He reports she went to sleep eventually around 1130, and he became concerned when he could not wake her up at 3 AM. She had had some intermittent temperatures the last 2 days. He reports no ill contacts that he is aware of. She had had some constipation lately, but he reports her urine was quite clear. She requires quite a bit of support during her ADLs, and cannot ambulate on her own. He reports frequent falls with the last one 2 days ago where she had some bruising of her right ankle. No ER visit was generated from this. She has not been moving her left arm very well for 2 weeks. She sustained a fracture to her right proximal humerus 2 weeks ago. She did not take her medicine yesterday morning secondary to lethargy. When ambulance services were dispatched she was found to be tachycardic, not responsive, and hypotensive with a systolic in the 50s. She was intubated in the field and brought to the emergency department where she has continued to remain unresponsive. She was found to be quite hyperglycemic. In the emergency department she received at least 3 L of IV fluids, insulin, and insulin drip, norepinephrine, central line, sodium bicarb and and, vancomycin, Zosyn. I have ordered a dose of hydrocortisone given that she is on chronic steroids and did not take this yesterday. Blood cultures were drawn. I discussed with her her CODE STATUS. He reports that she had commented on being DNR, but then he is okay with her being resuscitated and ventilated. I discussed with him that we would need to converse further on this depending on how she clinically responds. He certainly would not want to have her on any prolonged life support. Review of Systems General: Reports: ROS unobtainable due to mental status Medications/Allergies Home Medications Medication Instructions Recorded Confirmed Last Taken Type levothyroxine 50 mcg tablet 50 mcg PO DAILY@0800 #30 tabs 05/23/20 02/24/22 12/26/21 Rx gabapentin 100 mg capsule 200 mg PO TID 06/12/20 02/24/22 12/26/21 08:00 History duloxetine 20 mg capsule,delayed 20 mg PO BID 02/06/21 02/24/22 12/26/21 08:00 History release acetaminophen 325 mg tablet 650 - 975 mg PO QID PRN Pain 04/05/21 02/24/22 07/16/21 History insulin aspart U-100 100 unit/mL See Rx Instructions .Route .COMPLEX 07/17/21 02/24/22 07/16/21 History (3 mL) subcutaneous pen (Novolog Flexpen U-100 Insulin aspart) memantine 10 mg tablet (Namenda) 10 mg PO BID #180 tabs 08/08/21 02/24/22 12/26/21 08:00 Rx buspirone 10 mg tablet 20 mg PO TID 12/26/21 02/24/22 12/26/21 08:00 History galantamine 4 mg tablet 4 mg PO BID 12/26/21 02/24/22 12/26/21 08:00 History hydroxyzine HCl 50 mg tablet 50 mg PO BEDTIME 12/26/21 02/24/22 12/25/21 History metoclopramide HCl 10 mg tablet 5 mg PO QAM 12/26/21 02/24/22 12/26/21 History nut. tx, spec. form, See Rx Instructions .Route .COMPLEX 12/26/21 02/24/22 12/26/21 11:00 History lac-free,iron-fos 0.08 gram-2 FINISHED kcal/mL oral liquid (TwoCal HN) @11:00 ondansetron 8 mg disintegrating 8 mg PO Q12H PRN Nausea And 12/26/21 02/24/22 Unknown History tablet Vomiting sodium chloride 1 gram tablet 1 g PO BID 12/26/21 02/24/22 12/26/21 History temazepam 7.5 mg capsule 7.5 mg PO BEDTIME 12/26/21 02/24/22 Unknown History pantoprazole 40 mg tablet,delayed 40 mg PO BID #60 tabs 12/27/21 02/24/22 12/26/21 Rx release sucralfate 1 gram tablet 1 g PO QID #90 tabs 12/27/21 02/24/22 07/16/21 Rx atorvastatin 80 mg tablet 80 mg PO QPM 01/01/22 02/24/22 Unknown History hydrocodone 5 mg-acetaminophen 325 1 tab PO Q6H PRN pain #10 tabs 01/01/22 02/24/22 Unknown Rx mg tablet lisinopril 20 mg tablet 10 mg PO DAILY 01/01/22 02/24/22 Unknown History naloxone 4 mg/actuation nasal spray 4 mg intranasal Q3M PRN Opioid 01/01/22 02/24/22 Unknown History Overdose ferrous sulfate 325 mg (65 mg 325 mg PO DAILY 02/24/22 02/24/22 Unknown History iron) tablet (Iron (ferrous sulfate)) lactose-reduced food with fiber 2 ea feeding tube DAILY 02/24/22 02/24/22 Unknown History 0.06 gram-1.5 kcal/mL oral liquid (Jevity 1.5 Warner) metoprolol tartrate 100 mg tablet 50 mg PO BID 02/24/22 02/24/22 Unknown History potassium chloride 20 mEq 10 meq PO DAILY 02/24/22 02/24/22 Unknown History tablet,extended release Allergies Allergy/AdvReac Type Severity Reaction Status Date / Time No Known Allergies Allergy Verified 02/06/22 16:38 PFSH Acute PFSH: Medical History (Updated 02/24/22 @ 12:45 by Fernie Duron MD) Acute esophagitis Acute hypokalemia Adrenal insufficiency Altered mental status Alzheimer disease Anemia ARDS (adult respiratory distress syndrome) Aspiration into airway Aspiration pneumonia Atrial fibrillation, new onset C. difficile diarrhea Chest pain Chronic back pain Chronic diarrhea Chronic diastolic CHF (congestive heart failure) Chronic hyponatremia CKD (chronic kidney disease), stage II Depression Diabetic gastroparesis Dysphagia Generalized anxiety disorder GERD (gastroesophageal reflux disease) Headache Hyperlipidemia Hypertension Hypothyroidism Insulin dependent type 2 diabetes mellitus Lactic acidosis Lewy body dementia Major depressive disorder, recurrent severe without psychotic features Morbid obesity PEG tube malfunction Post-traumatic stress disorder, chronic Tachycardia Surgical History H/O esophagogastroduodenoscopy H/O: hysterectomy History of bunionectomy bilateral Hx of cholecystectomy S/P percutaneous endoscopic gastrostomy (PEG) tube placement Status post colonoscopy Family History Mother Hypertension Diabetes Father Hypertension Asthma Other CAD (coronary artery disease) Cancer Denies family history of Anesthesia complication Bleeding disorder Social History Smoking and tobacco status: current every day smoker cigars Cigars smoked per week: 35 Years smoked cigars: 53 Cigar details: 1 PPD Quit status (tobacco): has tried quititng Second hand smoke exposure: Yes Smoking risk assessment/counseling performed?: No Alcohol intake: current Alcohol intake frequency: holidays/special occasions only Household members: spouse Housing: Manufactured/Mobile home Marital status: Current occupational status: retired History of recent travel: No Vitals/I&O/Wt Last Vital Signs Temp 99.3 F 02/24/22 08:18 Pulse 119 H 02/24/22 05:51 Resp 29 H 02/24/22 07:41 BP 101/65 02/24/22 05:51 Pulse Ox 94 02/24/22 05:23 O2 Del Method 02/24/22 05:51 FiO2 40 02/24/22 07:41 02/23/22 02/24/22 02/24/22 22:59 06:59 14:59 Intake Total 1009.207 / 3654.085 3250.469 / 1170.469 Output Total 1000 / 1000 Balance 1009.207 / 1009.207 170.469 / 170.469 Weight last 48 hrs Weight 74.843 kg Physical Exam Narrative: General exam is a white female, unresponsive on ventilator, with no sedation given here at the hospital. She is breathing slightly over the ventilator rate. Initial temperature noted to be 103.1 ?F. HEENT: Atraumatic and normocephalic. Pupils appear dilated. I do believe she has a corneal reflex. Oropharynx with endotracheal tube and orogastric tube Neck supple no lymphadenopathy or thyromegaly. Left IJ noted Cardiovascular tachycardic, regular, no obvious murmur Lungs clear bilaterally Abdomen is slight distention. Bowel sounds are somewhat difficult to hear. PEG tube noted left abdomen. Back not examined demonstrates Magana, cloudy and bloody urine Extremities mottling. No edema. Bruising right medial ankle Neuro: Unresponsive currently Urinary Catheter Management: Magana: Cath Placed During This Visit: yes Reason for Continuing Indwelling Catheter: Accurate Measurement of Urinary Output in Critically Ill Patients Urinary Catheter Date of Insertion: 02/24/22 Urinary Catheter Time of Insertion: 05:30 Sepsis: Date exam was performed: 02/24/22 Time exam was performed: 10:25 Data 02/24/22 05:45 02/24/22 07:14 Other Labs: INR is 1.68, PTT 47 ABG demonstrates pH is 6.96, PCO2 25, PO2 482 Lactate 10.3, calcium 8.3, magnesium 3.5. Bilirubin normal, AST 141, ALT 87, alk phos 197 CRP 265 Albumin 2.1 Urinalysis demonstrates too numerous to count whites and too numerous to count reds with 3+ bacteria I have ordered a hepatitis panel which is pending Serum ketones negative, alcohol less than 10 Knee hip and pelvis x-rays on the right side without fracture. Ankle without fracture. Head CT remote caudate head infarct Chest x-ray atelectasis right lung EKG demonstrates sinus tachycardia, normal axis, nonspecific ST-T wave changes Echocardiogram done in December demonstrated preserved EF, 1/4 diastolic dysfunction Micro: Microbiology 02/24/22 06:13 Blood Culture - Preliminary Blood SPECIMEN COLLECTED 02/24/22 05:45 Blood Culture - Preliminary Blood SPECIMEN COLLECTED A&P Assessment and plan (1) Septic shock: Patient presents with septic shock. She is hypotensive, encephalopathic, with fever and abnormal vital signs. IV vancomycin, meropenem Blood cultures have been drawn Check troponin x1 Associated with severe acidosis (2) Hyperosmolar (nonketotic) coma: Blood sugar markedly high Serum ketones negative Has been he rehydrated in the emergency department Insulin drip has been started She has hypokalemia, which is being repleted. (3) UTI (urinary tract infection): Significant UTI CT scan renal protocol to rule out obstruction IV antibiotics as noted Blood and urine cultures obtained (4) Acute metabolic encephalopathy: Patient unresponsive on arrival. No improvement has been noted. This could be secondary to hyperosmolar state, versus sepsis, forces hypotensive injury, versus hypoxic injury prior to intubation. (5) Acute kidney injury: Close follow-up, hydration (6) Alzheimer disease: Underlying severe dementia Discussed with treatment goals For now he wants to continue treatment, but is amenable to repeat discussions regarding CODE STATUS (7) Acute hypokalemia: Supplemented (8) Transaminitis: Likely secondary to hypotension Hepatitis panel pending (9) Adrenal insufficiency: Hydrocortisone IV every 8 hours (10) Acute respiratory failure: Secondary to septic shock Currently ventilated, with no difficulty. Reducing FiO2. PEEP minimal. Repeat ABG in several hours. Plan Multiple other medical problems as outlined in past medical history Visited again with family. They do not want CPR done. Current measures okay. Heparin for DVT prophylaxis Attestations Medical Necessity Statement*: Will require greater than 2 midnight stay for evaluation and treatment of unresponsive state, respiratory failure, etc. Critical Care Time: The high probability of a clinically significant, sudden or life threatening deterioration of the patient's [pulmonary, renal, neurologic, hepatic] system(s) required my full and direct attention, intervention and personal management. The critical care time is as shown. 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
--- NOTE | 2022-02-24 10:15 | PC.NURSE ---
Pt arrived to ICU around 1000 via bed on ventilator with insulin running at 6 and levophed at 7.5. Mottling was noted to legs, abd, breast and shoulders. Bowel sounds hypoactive. No reflexes present. at bedside and updated on prognosis and condition by Dr. Miller.
[2022-02-24 10:18] LABS: Influenza A by IFA negative (Negative); Influenza B by IFA negative (Negative)
--- NOTE | 2022-02-24 10:46 | PC.PHAR ---
PT UNABLE TO VERIFY- MEDICATIONS VERIFIED USING [facility]- INSULIN DOES NOT SHOW ON [facility] STS IT IS PRN ONLY IF BLOOD SUGAR IS OVER 200
[2022-02-24 10:51] LABS: ABG PCO2 26.5 mmHg (35-45); ABG PH Result 7.21 (7.35-7.45); Arterial Blood Gas Hematocrit 29.6 % (37-47); Base Excess ABG -15.9 mmol/L (-2.0-2.0); Blood Gas Operator Identificat GD; Blood Gas Sample Site Brachial, left; Blood Gas Sample Type Arterial; Carboxyhemoglobin 0.6 %THgb (0.4-20.1); Fractionated Inspired Oxygen 0.4 %; HCO3 ABG 10.6 mmol/L (22-26); HGB O2 Sat 96.1 % (95-100); Ionized Calcium Level - ABG 1.3 mmol/L (1.1-1.4); Methemoglobin 0.5 % (0.4-1.5); Oxygen Device VENT; Oxygen Saturation ABG 97.2; Potassium Level - ABG 3.6 mmol/L (3.5-5.0); Total Hemoglobin 9.6 g/dL (12-16)
[2022-02-24 10:54] LABS: Troponin T (5th) Once 39 ng/L (0-10)
[2022-02-24 11:02] LABS: Thyroid Stimulating Hormone 2.98 uIU/mL (0.27-4.20)
[2022-02-24 11:06] LABS: Glucose Point of Care 308 mg/dL (70-110)
[2022-02-24 11:06] LABS: Glucose Point of Care 417 mg/dL (70-110)
[2022-02-24 11:08] LABS: Hepatitis A Antibody IgM Non-Reactive (Nonreactive); Hepatitis B Core IgM Non-Reactive (Nonreactive); Hepatitis B Surface Antigen Non-Reactive (Nonreactive); Hepatitis C Virus Antibody Non-Reactive (Nonreactive)
--- NOTE | 2022-02-24 11:14 | P.CONIM_ITS ---
Providers/Reason For Consult Consulting Physician/Specialty*: Fernie Duron MD Reason for Consult*: Colonic pneumatosis Requesting Physician: Dr. Miller Attending Physician: Syed Miller MD Primary Care Provider: KATRINA Cash History of Present Illness History of Present Illness Ms. Ingris Mendosa is a 67 year old female multiple other medical comorbidities with well-known history of underlying dementia. Patient was noticed to be tired and fatigued by her spouse. Subsequently she was brought to the emergency department for further evaluation and EMS was determined that the patient was tachycardic and not responsive and being hypotensive with systolic in the 50s. Patient was intubated prior to bringing her to the ED. She received 3 L of IV fluids in addition to insulin and norepinephrine. Started empirically on vancomycin and Zosyn. CT of the abdomen and pelvis showed 1.? Moderate amount of free air throughout the peritoneal cavity. 2.? Changes of pneumatosis involving a large portion of the colon. 3.? There is a PEG tube and nasogastric tube present. There is a small amount of free air adjacent to the fundus of the stomach which could be a site of perforation. Perforation and free air may be related to ischemic bowel. 4.? Distal colonic diverticulosis with wall thickening. 5.? Pneumobilia. 6.? Bilateral perinephric stranding. No renal calcification or obstruction identified. 7.? Marked wall thickening involving the sigmoid and a small amount of free fluid and inflammation in the pelvis. 8.? Magana catheter in good position. 9.? Bilateral lower lobe opacifications pneumonia versus atelectasis. 10.? Suspect tubular foreign body anterior to the RIGHT lobe of the liver. Not present on the prior study. May be retained catheter from a prior procedure. General surgery was consulted for further evaluation Review of Systems General: Reports: ROS unobtainable due to medical condition Medications/Allergies Home Medications Medication Instructions Recorded Confirmed Last Taken Type levothyroxine 50 mcg tablet 50 mcg PO DAILY@0800 #30 tabs 05/23/20 02/24/22 12/26/21 Rx gabapentin 100 mg capsule 200 mg PO TID 06/12/20 02/24/22 12/26/21 08:00 History duloxetine 20 mg capsule,delayed 20 mg PO BID 02/06/21 02/24/22 12/26/21 08:00 History release acetaminophen 325 mg tablet 650 - 975 mg PO QID PRN Pain 04/05/21 02/24/22 07/16/21 History insulin aspart U-100 100 unit/mL See Rx Instructions .Route .COMPLEX 07/17/21 02/24/22 07/16/21 History (3 mL) subcutaneous pen (Novolog Flexpen U-100 Insulin aspart) memantine 10 mg tablet (Namenda) 10 mg PO BID #180 tabs 08/08/21 02/24/22 12/26/21 08:00 Rx buspirone 10 mg tablet 20 mg PO TID 12/26/21 02/24/22 12/26/21 08:00 History galantamine 4 mg tablet 4 mg PO BID 12/26/21 02/24/22 12/26/21 08:00 History hydroxyzine HCl 50 mg tablet 50 mg PO BEDTIME 12/26/21 02/24/22 12/25/21 History metoclopramide HCl 10 mg tablet 5 mg PO QAM 12/26/21 02/24/22 12/26/21 History nut. tx, spec. form, See Rx Instructions .Route .COMPLEX 12/26/21 02/24/22 12/26/21 11:00 History lac-free,iron-fos 0.08 gram-2 FINISHED kcal/mL oral liquid (TwoCal HN) @11:00 ondansetron 8 mg disintegrating 8 mg PO Q12H PRN Nausea And 12/26/21 02/24/22 Unknown History tablet Vomiting sodium chloride 1 gram tablet 1 g PO BID 12/26/21 02/24/22 12/26/21 History temazepam 7.5 mg capsule 7.5 mg PO BEDTIME 12/26/21 02/24/22 Unknown History pantoprazole 40 mg tablet,delayed 40 mg PO BID #60 tabs 12/27/21 02/24/22 12/26/21 Rx release sucralfate 1 gram tablet 1 g PO QID #90 tabs 12/27/21 02/24/22 07/16/21 Rx atorvastatin 80 mg tablet 80 mg PO QPM 01/01/22 02/24/22 Unknown History hydrocodone 5 mg-acetaminophen 325 1 tab PO Q6H PRN pain #10 tabs 01/01/22 02/24/22 Unknown Rx mg tablet lisinopril 20 mg tablet 10 mg PO DAILY 01/01/22 02/24/22 Unknown History naloxone 4 mg/actuation nasal spray 4 mg intranasal Q3M PRN Opioid 01/01/22 02/24/22 Unknown History Overdose ferrous sulfate 325 mg (65 mg 325 mg PO DAILY 02/24/22 02/24/22 Unknown History iron) tablet (Iron (ferrous sulfate)) lactose-reduced food with fiber 2 ea feeding tube DAILY 02/24/22 02/24/22 Unknown History 0.06 gram-1.5 kcal/mL oral liquid (Jevity 1.5 Warner) metoprolol tartrate 100 mg tablet 50 mg PO BID 02/24/22 02/24/22 Unknown History potassium chloride 20 mEq 10 meq PO DAILY 02/24/22 02/24/22 Unknown History tablet,extended release Allergies Allergy/AdvReac Type Severity Reaction Status Date / Time No Known Allergies Allergy Verified 02/06/22 16:38 Current Medications Generic Name Dose Route Start Last Admin Trade Name Freq PRN Reason Stop Dose Admin Insulin Human Regular 250 unit 252.5 mls @ 0 mls/hr 02/24/22 05:45 02/24/22 08:22 / Sodium Chloride IV 6 unit/hr .Q0M MICHELLE 6.06 mls/hr Titration Protocol Per Protocol Norepinephrine Bitartrate 4 mg 254 mls @ 0 mls/hr 02/24/22 06:00 02/24/22 06: 14 / Dextrose IV 7.5 mcg/min .Q0M MICHELLE 28.58 mls/hr Titration Protocol Per Protocol Potassium Chloride 100 mls @ 25 mls/hr 02/24/22 08:15 02/24/22 09:05 K-Sam IV 02/24/22 16:14 25 mls/hr Q4H MICHELLE Administration PFSH Acute PFSH: Medical History (Updated 02/24/22 @ 12:45 by Fernie Duron MD) Acute esophagitis Acute hypokalemia Adrenal insufficiency Altered mental status Alzheimer disease Anemia ARDS (adult respiratory distress syndrome) Aspiration into airway Aspiration pneumonia Atrial fibrillation, new onset C. difficile diarrhea Chest pain Chronic back pain Chronic diarrhea Chronic diastolic CHF (congestive heart failure) Chronic hyponatremia CKD (chronic kidney disease), stage II Depression Diabetic gastroparesis Dysphagia Generalized anxiety disorder GERD (gastroesophageal reflux disease) Headache Hyperlipidemia Hypertension Hypothyroidism Insulin dependent type 2 diabetes mellitus Lactic acidosis Lewy body dementia Major depressive disorder, recurrent severe without psychotic features Morbid obesity PEG tube malfunction Post-traumatic stress disorder, chronic Tachycardia Surgical History H/O esophagogastroduodenoscopy H/O: hysterectomy History of bunionectomy bilateral Hx of cholecystectomy S/P percutaneous endoscopic gastrostomy (PEG) tube placement Status post colonoscopy Family History Mother Hypertension Diabetes Father Hypertension Asthma Other CAD (coronary artery disease) Cancer Denies family history of Anesthesia complication Bleeding disorder Social History Smoking and tobacco status: current every day smoker cigars Cigars smoked per week: 35 Years smoked cigars: 53 Cigar details: 1 PPD Quit status (tobacco): has tried quititng Second hand smoke exposure: Yes Smoking risk assessment/counseling performed?: No Alcohol intake: current Alcohol intake frequency: holidays/special occasions only Household members: spouse Housing: Manufactured/Mobile home Marital status: Current occupational status: retired History of recent travel: No Vitals/I&O/Wt Last Vital Signs Temp 99.3 F 02/24/22 08:18 Pulse 141 H 02/24/22 10:00 Resp 30 H 02/24/22 10:13 BP 85/55 02/24/22 10:30 Pulse Ox 94 02/24/22 10:13 O2 Del Method 02/24/22 05:51 FiO2 40 02/24/22 10:13 02/23/22 02/24/22 02/24/22 22:59 06:59 14:59 Intake Total 1009.207 / 4882.309 0408.469 / 1170.469 Output Total 1000 / 1000 Balance 1009.207 / 1009.207 170.469 / 170.469 Weight last 48 hrs Weight 165 lb Physical Exam Narrative: Patient is intubated and on mechanical ventilation BMI 29.2 Head and neck examination PERRLA no masses no cervical lymphadenopathy no jaundice Cardiac examination audible S1-S2 no murmurs no gallops no arrhythmias Chest is clear bilateral,abscence of Rhonchi or wheezes,no surgical emphysema Abdomen nontender nondistended soft no organomegaly guarding or rigidity/no signs of peritonitis Skin mottling was appreciated on 2 her bilateral breasts and bilateral side of the torso and bilateral lower extremities Urinary Catheter Management: Magana: Cath Placed During This Visit: yes Reason for Continuing Indwelling Catheter: Accurate Measurement of Urinary Output in Critically Ill Patients Urinary Catheter Date of Insertion: 02/24/22 Urinary Catheter Time of Insertion: 05:30 Data 02/24/22 05:45 02/24/22 07:14 Micro: Microbiology 02/24/22 06:13 Blood Culture - Preliminary Blood SPECIMEN COLLECTED 02/24/22 05:45 Blood Culture - Preliminary Blood SPECIMEN COLLECTED A&P Assessment and plan (1) Pneumatosis intestinalis of large intestine: After limited history taking physical examination and reviewing the CT of the abdomen pelvis with the presence of pneumoperitoneum and pneumatosis intestinalis of the right side of the colon in addition to portal venous gas per my interpretation, patient is in a severe septic shock, intubated and on pressor s. I try to get a hold of the spouse over the phone by the help of the nursing staff Quynh but that was not successful in order for me to discuss the overall prognosis with the spouse. Giving all of the above I do believe that the patient's prognosis is so dismal, any surgical intervention will carry higher risk of mortality and morbidity. On Evening rounds took place around 4 PM I had a chance to talk with the patient's spouse, brother as well as her [id number] in the presence of nursing staff Quynh. I did explain the findings of the CT scan to the patient's family and potential surgical exploration that would carry higher risk of mortality and morbidity. It does not seem at this point that the family is interested in any surgical intervention particularly knowing that the patient's overall prognosis is dismal as well as she would likely be in a vegetative state postoperatively. The patient will then be agreed to pursue. The plan of care has been discussed with the family and they do lean towards no surgical intervention. Will continue coordinating care with Dr. Miller Assurance and education All questions have been answered and all concerns have been addressed to berhane ent's family satisfaction. Consult Attestations Medical Necessity Statement: Per admitting service Coding Level of Care Code Acute Director Veterinary for [facility] Diagnoses Pneumatosis intestinalis of large intestine K63.89
--- NOTE | 2022-02-24 11:43 | PC.NURSE ---
This nurse attempted to call patients with dr. Duron at nurses station to give update. Will attempt to call again.
[2022-02-24 12:12] LABS: Glucose Point of Care 258 mg/dL (70-110)
[2022-02-24] MEDS: hydrocortisone 100 mg/2 mL SDV IVP ×2 (12:19→14:47)
[2022-02-24] MEDS: heparin 5,000 unit/mL INJ 1 mL 5000 UNIT SUBCUT (12:20)
[2022-02-24] MEDS: meropenem 1,000 MG in sodium chloride 0.9% (plus) 50 ML 100 MG IV (12:21)
[2022-02-24 12:49] LABS: Alanine Aminotransferase 302 U/L (0-33); Albumin Level 2.2 g/dL (3.5-5.2); Alkaline Phosphatase 256 U/L (35-105); Anion Gap 19.4 (5-19); Aspartate Amino Transferase 534 U/L (0-32); Blood Urea Nitrogen 61 mg/dL (8-23); Calcium 8.9 mg/dL (8.5-10.5); Carbon Dioxide 12 mmol/L (22-29); Chloride 109 mmol/L (98-107); Globulin 3.3 g/dL (1.3-4.6); Glomerular Filtration Rate 40.7 mL/min (90-130); Glucose 168 mg/dL (65-115); Magnesium 3.3 mg/dL (1.7-2.3); Osmolality Calculated 303 mOsm/kg (285-295); Potassium 4.4 mmol/L (3.5-5.1); Sodium 136 mmol/L (136-145); Total Bilirubin 0.5 mg/dL (0.15-1.2); Total Protein 5.5 g/dL (6.6-8.7)
[2022-02-24 12:51] LABS: Creatinine Clr Calc Pharmacy 40.1312
[2022-02-24] MEDS: D5-NS 0.45% + KCL 20 mEq 20 MEQ/1,000 ML BAG 125 MEQ IV (13:29)
[2022-02-24 13:34] LABS: Glucose Point of Care 182 mg/dL (70-110)
[2022-02-24 14:25] LABS: Glucose Point of Care 173 mg/dL (70-110)
[2022-02-24 14:53] LABS: Glucose Point of Care 136 mg/dL (70-110)
--- NOTE | 2022-02-24 16:21 | W.PM.EVENTAC ---
Event Note Event Note: Long discussion with , and 2 brothers concerning her current condition with poor prognosis, free air in her abdomen. Discussed with general surgery as well. They report her quality of life was very poor prior to this event, with significant dementia. They reports she would never have wanted to live the way she was prior to this illness, and that she would not really have wanted any aggressive care. Family reports she would not want aggressively treated now, knowing that her quality of life would decrease again. After this long discussion, they requested comfort measures occur. We will proceed with comfort measures.
[2022-02-24 16:23] LABS: Glucose Point of Care 110 mg/dL (70-110)
[2022-02-24 16:26] LABS: Basophils % 0.1 %; Hematocrit 26.8 % (37.0-47.0); Hemoglobin 8.8 g/dL (11.5-15.3); Lymphocytes # 0.8 10^3/uL (0.8-4.8); Lymphocytes % 1.7 %; Mean Corpuscular HGB Conc 32.8 g/dL (30.0-36.0); Mean Corpuscular Hemoglobin 27.6 pg (28.0-34.0); Mean Platelet Volume 9.6 fL (7.4-10.4); Monocytes # 2.2 10^3/uL (0.2-0.9); Monocytes % 4.9 %; Neutrophils % 90.3 %; Nucleated Red Blood Cells # 0.1 /100WBC; Nucleated Red Blood Cells % 0.3 %; Platelet Count 523 10^3/cmm (130-400); Red Blood Count 3.19 10^6/uL (4.1-5.3)
[2022-02-24 16:31] LABS: Slide Review Slide Review Perform
[2022-02-24 16:59] LABS: Alanine Aminotransferase 534 U/L (0-33); Albumin Level 1.9 g/dL (3.5-5.2); Alkaline Phosphatase 187 U/L (35-105); Anion Gap 16.7 (5-19); Blood Urea Nitrogen 62 mg/dL (8-23); Calcium 8.1 mg/dL (8.5-10.5); Carbon Dioxide 11 mmol/L (22-29); Chloride 110 mmol/L (98-107); Globulin 3.2 g/dL (1.3-4.6); Glomerular Filtration Rate 40.7 mL/min (90-130); Glucose 103 mg/dL (65-115); Osmolality Calculated 292 mOsm/kg (285-295); Potassium 5.7 mmol/L (3.5-5.1); Sodium 132 mmol/L (136-145); Total Bilirubin 0.4 mg/dL (0.15-1.2); Total Protein 5.1 g/dL (6.6-8.7)
[2022-02-24 17:01] LABS: Creatinine Clr Calc Pharmacy 40.1312
[2022-02-24 17:21] LABS: Aspartate Amino Transferase 938 U/L (0-32)
[2022-02-24] MEDS: morphine 4 mg/mL SDV 1 mL IVP (17:45)
[2022-02-24] MEDS: LORazepam 2 mg/mL INJ 1 mL IVP (17:45)
--- NOTE | 2022-02-24 17:55 | PC.NURSE ---
Pt was extubated to comfort care at 1745.
--- NOTE | 2022-02-24 18:19 | PC.NURSE ---
TOD 17:59
--- NOTE | 2022-02-24 18:22 | PC.NURSE ---
MTS called by Lisbet. Not a candidate. Waiting for saving sight.
--- NOTE | 2022-02-24 19:00 | P.DES_ITS ---
Discharge Providers DDS Date of Admission: 02/24/22 08:31 Date Summary Completed: 02/25/22 Attending Provider at Admission: Syed Miller MD Time of : 17:59 Attending Provider at Discharge: Syed Miller MD Primary Care Provider: KATRINA Cash Diagnoses Hospital Diagnoses (1) Pneumatosis intestinalis of large intestine: Reason for Visit Reason for Visit unresponsive, hyperglycemia Summary Date and Time of Date of : 02/24/22 Time of : 17:59 Summary Summary: Ingris Mendosa was a 67-year-old white female who presented to the hospital unresponsive, severely acidotic, originally very hypotensive and hypoxic. She was intubated in the field. In the emergency department she continued to remain unresponsive. She received a significant amount of fluids, adjustments to reduce acidosis, treatment of hyperglycemia with insulin and insulin drip, initiation of norepinephrine and ultimately vasopressin for severe hypotension, broad-spectrum antibiotics, hydrocortisone shortly after arrival to the emergency department as well as the ICU. She has an pre-existing underlying diagnosis of severe dementia, thought to be due to Lewy body disease and severe physical impairments. She was ultimately diagnosed with septic shock, hyperosmolar coma, acute kidney injury, UTI, acute liver injury, acute encephalopathy thought to be secondary to hypertension and or hypoxia and could not rule out acute adrenal insufficiency. Further work-up was obtained with a CT scan of her abdomen and pelvis without contrast. This demonstrated free air and significant pneumatosis. Surgery consult was obtained. I discussed with the family during admission, with surgery, and following and a family meeting regarding her severe underlying dementia, and current presentation with life-threatening illness including perforated organ. Surgery was thought to be a tremendous risk, and when family considered the patient's previous wishes that were voiced years prior when dementia was not affecting her they reported she would not want all of the invasive measures that would need to be done as they would not improve her overall quality of life with her dementia and reduced mobility. At this point comfort measures ensued, and the patient relatively quickly. Diagnosis to , septic shock and perforated viscus. Additional Data Family: at bedside Advance directives?: No Discharge Plan Discharge Patient Disposition: Condition: Stable Probable Cause of Probable cause of : Cardiac arrest DS Attestations Time Spent in /Discharge Care*: greater than 30 min Quality - AMI: AMI present?: No Quality - Stroke: CVA present?: No Quality - VTE: VTE present?: No Coding Level of Care Code Acute Apprentice Embalmer for [facility] Diagnoses Pneumatosis intestinalis of large intestine K63.89
--- NOTE | 2022-02-24 19:44 | PC.NURSE ---
[facility]aving site called and released body. Post mortem care performed. Patient transferred by warehouse foreman [place] [facility] [place].
--- NOTE | 2022-02-24 21:58 | PC.NURSE ---
Body released to julian balbuena at 2150.
== END 2022-02-24 19:20 | disposition expired | DRG 871 ==
LOC: ER 08:27 → ICU 08:49
PROVIDERS: Emergency Medicine; Admitting Provider Internal Medicine; Emergency Provider Family Medicine; PCP Nurse Practitioner; Visit Provider Internal Medicine
DX: A41.9 Sepsis, unspecified organism (principal); E11.01 Type 2 diabetes mellitus with hyperosmolarity with coma; R65.21 Severe sepsis with septic shock; G93.41 Metabolic encephalopathy; K72.00 Acute and subacute hepatic failure without coma; K63.1 Perforation of intestine (nontraumatic); J96.01 Acute respiratory failure with hypoxia; I13.0 Hypertensive heart and chronic kidney disease with heart failure and stage 1 through stage 4 chronic kidney disease, or unspecified chronic kidney disease; I50.32 Chronic diastolic (congestive) heart failure; F33.9 Major depressive disorder, recurrent, unspecified; N17.9 Acute kidney failure, unspecified; E27.40 Unspecified adrenocortical insufficiency; N39.0 Urinary tract infection, site not specified; Z86.73 Personal history of transient ischemic attack (TIA), and cerebral infarction without residual deficits; E11.22 Type 2 diabetes mellitus with diabetic chronic kidney disease; N18.2 Chronic kidney disease, stage 2 (mild); I95.9 Hypotension, unspecified; G30.9 Alzheimer's disease, unspecified; F02.C0 Dementia in other diseases classified elsewhere, severe, without behavioral disturbance, psychotic disturbance, mood disturbance, and anxiety; G31.83 Neurocognitive disorder with Lewy bodies; I48.91 Unspecified atrial fibrillation; G89.29 Other chronic pain; M54.9 Dorsalgia, unspecified; F41.1 Generalized anxiety disorder; K21.9 Gastro-esophageal reflux disease without esophagitis; E78.5 Hyperlipidemia, unspecified; E03.9 Hypothyroidism, unspecified; I46.9 Cardiac arrest, cause unspecified; Z51.5 Encounter for palliative care; K63.89 Other specified diseases of intestine; E87.6 Hypokalemia; R29.6 Repeated falls; F17.210 Nicotine dependence, cigarettes, uncomplicated; F43.12 Post-traumatic stress disorder, chronic; E66.01 Morbid (severe) obesity due to excess calories; Z68.29 Body mass index [BMI] 29.0-29.9, adult; Z93.1 Gastrostomy status
CPT/HCPCS: 36416; 36600; 51702; 70450; 71045; 73502; 73562; 73610; 74176; 80048; 80051; 80053; 80074; 80307; 81001; 82009; 82330; 82803; 82805; 82962; 83605; 83735; 84443; 84484; 85007; 85025; 85610; 85730; 86140; 86850; 86900; 87040; 87070; 87077; 87086; 87186; 87205; 87804; 93005; 94002; 94799; 96365; 96366; 96367; 96372; 96375; 99285; J0131; J1644; J1720; J1815; J2060; J2185; J2270; J2543; J3370; J3480; J3490; J7030; J7050; J7060